=== PATIENT | male | born 1945 | race Caucasian/White ===

== ENCOUNTER 2017-04-24 10:09 | Inpatient (IN) | payer MEDICARE, BC, SELFPAY ==
[2017-04-24] VITALS (24 sets, daily range): BP systolic 124–167; BP diastolic 49–78; PULSE 57–76; RESP 14–67; TEMP 36.4–37.1; O2SAT 92–100; BMI 35.9; BMI 36.7; BMI 36.8
--- NOTE | 2017-04-24 10:12 | EKG12_ITS ---
Test Reason : CP Blood Pressure : / mmHG Vent. Rate : 068 BPM Atrial Rate : 068 BPM P-R Int : 168 ms QRS Dur : 162 ms QT Int : 436 ms P-R-T Axes : 089 -53 070 degrees QTc Int : 463 ms Normal sinus rhythm Right bundle branch block Left anterior fascicular block Bifascicular block Abnormal ECG Confirmed by SHAYNA BYERS, JEANETTE ([id number]), online content editor JAMES CLAIRE ([id number]) on 04/25/2017 3:16:52 PM Referred By: Confirmed By:JEANETTE CORRAL MD
--- NOTE | 2017-04-24 10:12 | RAD_ITS ---
STUDY: X-RAY CHEST REASON FOR EXAM: Male, 71 years old. Chest pain TECHNIQUE: Single AP portable view of the chest. COMPARISON: June 22, 2009 FINDINGS: Lungs are more hyperexpanded.. There is new right infrahilar atelectasis/consolidation. There is no demonstrated pleural abnormality. Normal size heart. There is a stable left hilar calcified lymph node. Normal visualized pulmonary arteries. There is atherosclerotic calcification of the aortic arch with tortuosity. Normal visualized thoracic spine. Normal visualized ribs, clavicles, and shoulders. There is no demonstrated abnormality of the visualized soft tissue structures of the upper abdomen. RAD/Chest 1 View (Portable) IMPRESSION: Lungs are more hyperexpanded.. There is new right infrahilar atelectasis/consolidation. Electronically Signed: Makenna He MD at 13:02 EST , Service support ,
--- NOTE | 2017-04-24 10:29 | ED.VISSUMM ---
- ER Visit Summary Date of Service: 04/24/17 Chief Complaint: [] Chest pain shortness of breath orthopnea unable to lie flat History of Present Illness: The patient is a 71 M [] has a history of bladder cancer renal failure lower extremity DVT and PE years ago, on Xarelto. The patient basically is brought in by family complaining of shortness of breath and then later he also explains that he has been having chest pain on and off about a week thus to the left sternal area seems to come and go is exertional to a degree but appears to involve a focal area of his left chest. His symptoms got to the point where he could not lay flat last night he could not breathe any came in for evaluation he has been taking the Xarelto. He has not had a DVT or PE since being on the Xarelto apparently he had bladder cancer had to have some type of a new bladder inserted, subsequent to all that he developed DVTs and PE he was on Coumadin later switched to Xarelto. He has had a cough bowel bladder habits have been normal. Reports he has stage III kidney disease but he urinates at least twice a day, he denies lower extremity edema, denies COPD OK CHF Physical Examination: [] He is a very evasive historian. Family is in the room with him trying to help get the details as above he seems to try to be minimizing his symptoms he does not want to talk about the chest pain wants us to understand he simply cannot walk around his home or lay flat secondary to shortness of breath. His vital signs show a pulse ox of about 98% on room air heart rate about 80 the rest were unremarkable he has been afebrile he speaking in full sentences his neck shows no obvious JVD oral cavity is unremarkable the lungs reveal rhonchi at the bases the heart tones are regular the abdomen is obese but soft upper lower extremities unremarkable neurologically he is awake moving all 4 Test Results: [] Emergency Department Course and Treatment: [] In all the above evaluations pursued, his hemoglobin returns at 5.7 platelet count 251 white count 6 chemistry panel reveals creatinine 1.5, his chest x-ray shows dense right lower lobe infiltrate see that report, we have typed and screened him we started IV antibiotics. His stool was sent to lab as he spontaneously had us bowel movement and it was apparently brown but guaiac positive given all the above have contacted the hospitalist will see him shortly for further management again he was typed and screened for 2 units, per the patient the family has no history of GI bleeding Treatment Plan: [] Disposition: [] Admits stable Impression: [] Right lower lobe infiltrate, dyspnea, anemia, history of DVT or embolism prior bladder cancer ED Disposition - Plan for ED Patient: Chief Complaint: Chest Pain Referrals: Martin Nunez DO [Primary Care Provider] -
[2017-04-24 10:32] LABS: Absolute Lymphocyte Count 0.81 X10^3/ul (0.83-4.51); Absolute Neutrophil Count 4.8 X10^3/uL (2.0-7.7); Basophil# 0.02 X10^3/uL; Basophil% 0.3 % (0-1); Differential Indicated SCAN CRITERIA MET; Eosinophils% 1.6 % (0-5); Hematocrit 20.7 % (40-54); Hemoglobin 5.7 g/dl (13.0-16.5); Lymphocyte # 0.81 X10^3/ul (4.0); Lymphocyte % 13.1 % (19-41); Mean Corp Hgb Conc 27.5 g/gl (32-36); Mean Corpuscular Hgb 23.7 pg (27.0-32.0); Mean Corpuscular Volume 85.9 fL (80-94); Mean Platelet Vol. 8.7 fl (6.2-12.0); Monocyte# 0.48 X10^3/uL; Monocyte% 7.8 % (0-10); Neutrophil # 4.75 X10^3/uL (2.7-7.7); Neutrophil % 77.2 % (47-70); POSITIVE COUNT YES; POSITIVE DIFFERENTIAL NO; POSITIVE MORPHOLOGY NO; Platelet Count 251 K/mm3 (150-450); RBC Distribution Width CV 17.1 % (11.6-14.6); Red Blood Count 2.41 M/mm3 (4.6-6.2); White Blood Count 6.2 K/mm3 (4.4-11.0)
[2017-04-24 10:47] LABS: Anion Gap 10 (5-15); BUN 32 mg/dL (7-18); BUN/Creat Ratio 21.9 RATIO (10-20); Calcium,Total 8.2 mg/dL (8.5-10.1); Chloride 117 mmol/L (98-107); Creatinine, Serum 1.46 mg/dL (0.70-1.30); EST Glomerular Filtration Rate 51 mL/min (>60); Est Glom Filt Rate - Afr Amer 61 mL/min (>60); Estimated Creatinine Clearance 48.61 ml/min; Glucose 131 mg/dL (70-110); Potassium 3.7 mmol/L (3.5-5.1); Sodium Level 147 mmol/L (136-145)
[2017-04-24] MEDS: Ipratropium/Albuterol Sulfate 3 ML AMPUL.NEB INHALATION (10:56)
[2017-04-24 10:58] LABS: Anisocytosis 1+; Hypochromasia 2+
--- NOTE | 2017-04-24 11:03 | ED.RN ---
hgb 5.[address] the lab. dr bhardwajyeed aware
--- NOTE | 2017-04-24 15:36 | HP.PCM_ITS ---
Problem List (1) Shortness of breath Status: Acute (2) Left upper chest discomfort Status: Acute History of Present Illness Date of Admission: 04/24/17 Chief Complaint: Shortness of breath, left upper chest discomfort The patient is a 71 year old M who was seen in the emergency room at [facility] with a chief complaint of shortness of breath and episodic left upper chest pain which she states is been going on for the last couple of weeks. Patient states the chest discomfort is positional and it can also be reproduced by pushing on his left upper chest wall, he described it as being a sharp sensation. It is not brought on by physical activity. Patient states that he has not been able to perform physical activity as usual because of his shortness of breath and has not really felt good for at least 2 weeks. Patient admitted to some episodes of black stool approximately 2 weeks ago, he states that this cleared up and has not returned. Patient's son is in the room with the patient, patient states that his blood count was checked as an outpatient a couple of months ago and his hemoglobin was in the 12 range. Patient takes Xarelto due to a history of PE and DVT in the past, he had been on warfarin at one time but was taken off the warfarin due to the fact that he got a DVT while on warfarin. Patient also has an IVC filter. Patient denies any fevers, chills, hemoptysis, or purulent sputum production, he does state he coughs at times but brings up clear phlegm. Patient denies any rectal bleeding, he states he is never had a colonoscopy performed. Evaluation in the ER included labs which showed his hemoglobin to be 5.7, MCV was normal. Patient's creatinine was 1.46, BUN was 32, beta natruretic peptide was elevated at 555, troponin was 0.24, the patient's chest x-ray was read out as a right hilar infiltrate or atelectasis. Patient's pulse ox on room air was 100%. Patient was given IV Zithromax and Rocephin for a right hilar pneumonia, in reviewing the patient's chest x-ray and along with his physical exam, I am not convinced the patient actually has a pneumonia and the patient will be admitted to PCU for anemia felt to be secondary to GI bleeding-not active at the present time, and I will get a CT scan of the chest to further investigate his right hilar infiltrate/atelectasis. Patient's enzymes will be cycled due to his intermediate troponin. Past Medical History Allergies aspirin Allergy (Verified 04/24/17 10:13) Other enoxaparin [From Lovenox] Allergy (Verified 04/24/17 10:13) Other heparin Allergy (Verified 04/24/17 10:13) Other Home Medications: Ambulatory Orders Medication Instructions Recorded Amlodipine [Norvasc] 5 mg PO DAILY 04/24/17 Carvedilol [Coreg] 6.25 mg PO BID 04/24/17 Lactobacillus Acidophilus 1 each PO DAILY 04/24/17 [Acidophilus] Lisinopril [Zestril] 20 mg PO DAILY 04/24/17 Polyethylene Glycol 8000 5 ml PO DAILY 04/24/17 [Polyethylene Glycol] Rivaroxaban [Xarelto] 20 mg PO DAILY 04/24/17 Surgical History: cataract, tonsillectomy, - - Bladder removal due to bladder cancer with reconstruction of a bladder Psychiatric History: No pertinent psych hx Lives: Alone Smoking Status: Former smoker Tobacco Use: Non-smoker Alcohol: None Drugs: None - *Family History Maternal History Items: No pertinent history Paternal History Items: No pertinent history Review of Systems Constitutional: Reports: Weakness, Fatigue. Denies: Anorexia, Chills, Fever, Night Sweats, Weight Change Eyes: Denies: Blurred vision, Cataracts, Conjunctivae Inflammation, Double vision, Drainage HEENT: Denies: Difficulty Hearing, Difficulty Swallowing, Dysphasia, Ear Pain, Eye Pain, Head Aches, Hearing Changes, Nasal bleeding, Nasal Congestion, Post Nasal Drip Cardiovascular: Reports: Chest Pain. Denies: Claudication, Chest Pressure, Chest Tightness, Edema, Heaviness, Orthopnea, Palpitations, Paroxysmal Noc. Dyspnea, Syncope Respiratory: Reports: Cough, Shortness of Breath, Shortness of breath upon exertion. Denies: Hemoptysis, Pleuritic Pain, Shortness of breath at rest, Wheezing Gastrointestinal: Denies: Abdominal Pain, Constipation, Diarrhea, Hematemesis, Hematochezia, Nausea, Melena, Vomiting Genitourinary: Denies: Dysuria, Frequency, Hematuria, Hesitancy, Incontinence, Nocturia, Retention, Urgency Musculoskeletal: Denies: Back Pain, Foot Pain, Hand Pain, Joint Pain, Joint stiffness, Joint swelling, Joint Tenderness Skin: Denies: Dryness, Jaundice, Pruritis, Rash Neurological: Denies: Blurred vision, Double vision, Slurred speech, Difficulty swallowing, Focal weakness, Headaches, Numbness, Tingling Psychiatric: Denies: Anxiety, Depression, Homicidal Ideations, Suicidal Ideations Endocrine: Denies: Change in Body Habitus, Heat/ Cold Intolerance, Polydipsia, Polyuria Hematologic/ Lymphatic: Denies: Adenopathy, Anemia, Easy Bruising, Easy Bleeding , Petechiae, Purpura VTE Information - Inpt Only VTE Present on Admission: No VTE Mechan Device Prophylaxis: SCD's VTE Pharm Prophylaxis ordered?: No Reason prophylaxis not ordered:: Medical Contraindication - Suspected GI bleed Patient Problems: Active and Suspected Problems Left upper chest discomfort (Acute) Shortness of breath (Acute) - Physical Exam General: Alert, Oriented x3, Cooperative, No apparent distress, Well developed, Well nourished HEENT: Atraumatic, PERRLA, EOMI, Normocephalic Oral: Moist Mucosa Neck: Supple, No JVD, Negative Carotid Bruits, No Nodes, No Nuchal Rigidity, Trachea Midline, Thyroid Normal Size and Texture Lungs: Clear to auscultation, Normal air movement, No rhonchi, No wheeze, No rales Cardiovascular: Regular rate, Regular Rhythm, Normal S1, Normal S2, No murmurs, No Ectopic Activity, PMI Normal, No rub noted, No Gallop Abdomen: Bowel Sounds Present, Soft, Non Tender, Non-Distended, Obese Extremities: No clubbing, No cyanosis, No edema, Capillary Refill Less than 3 Seconds Skin: No rashes, No breakdown Musculoskeletal: No Tenderness to Palpation of Joints or Extremities Neurological: Cranial nerves II-XII grossly intact, Neuro grossly intact, Motor Exam 5/5 strength throughout, Sensory exam intact to light touch and pain, Coordination normal Psych/Mental Status: Normal Affect, Appropriate, Alert and oriented to time, place, person, mood and affect Vital Signs Temp Pulse Resp BP Pulse Ox 98.1 F 76 15 154/69 96 04/24/17 14:40 04/24/17 14:40 04/24/17 14:40 04/24/17 14:40 04/24/17 14:40 Oxygen Flow Rate 2 Oxygen Delivery Method Nasal Cannula Weight: 113.398 kg Body Mass Index (BMI) 35.9 Intake and Output for Last 24 Hours 04/22/17 04/23/17 04/24/17 23:59 23:59 22:59 Intake Total 150 Balance 150 Microbiology Past 72 Hours 04/24/17 11:43 Stool Occult Blood (ROSEMARY) - Final Stool Occult Blood Positive Laboratory Tests Past 24 Hrs 04/24/17 04/24/17 04/24/17 10:24 10:24 10:24 WBC 6.2 RBC 2.41 L Hgb 5.7 L* Hct 20.7 L MCV 85.9 MCH 23.7 L MCHC 27.5 L RDW 17.1 H RDW Differential 54.0 H Plt Count 251 MPV 8.7 Immature Gran % (Auto) 0.000 Neut % (Auto) 77.2 H Lymph % (Auto) 13.1 L Calvert % (Auto) 7.8 Eos % (Auto) 1.6 Baso % (Auto) 0.3 Absolute Neuts (auto) 4.8 Absolute Lymphs (auto) 0.81 L Total Counted Not Reportable Diff Path Review May foll Hypochromasia 2+ Anisocytosis 1+ Sodium 147 H Potassium 3.7 Chloride 117 H Carbon Dioxide 20.0 L Anion Gap 10 BUN 32 H Creatinine 1.46 H Estim Creat Clear Calc 48.61 Est GFR (MDRD) Af Amer 61 Est GFR (MDRD) Non-Af 51 L BUN/Creatinine Ratio 21.9 H Glucose 131 H Calcium 8.2 L Troponin I 0.24 H B-Natriuretic Peptide 555.0 H Blood Type Antibody Screen Crossmatch 04/24/17 11:25 WBC RBC Hgb Hct MCV MCH MCHC RDW RDW Differential Plt Count MPV Immature Gran % (Auto) Neut % (Auto) Lymph % (Auto) Calvert % (Auto) Eos % (Auto) Baso % (Auto) Absolute Neuts (auto) Absolute Lymphs (auto) Total Counted Diff Path Review Hypochromasia Anisocytosis Sodium Potassium Chloride Carbon Dioxide Anion Gap BUN Creatinine Estim Creat Clear Calc Est GFR (MDRD) Af Amer Est GFR (MDRD) Non-Af BUN/Creatinine Ratio Glucose Calcium Troponin I B-Natriuretic Peptide Blood Type O POSITIVE Antibody Screen NEGATIVE Crossmatch See Detail Assessment/Plan Active and Suspected Problems Left upper chest discomfort (Acute) Shortness of breath (Acute) #1 severe anemia-suspected to be secondary from a GI bleed-I do not believe this is acute at the present time, patient will be admitted to PCU, 3 units of packed red blood cells will be transfused, labs will be monitored, patient will be placed on IV Protonix, he will be seen by general surgery and undergo an EGD tomorrow, he will more than likely need a colonoscopy on Tuesday. Patient's Xarelto will be discontinued, SCDs will be placed #2 chest pain-this appears to be musculoskeletal in nature but the patient has intermediate troponin, I will cycle cardiac enzymes and he will be monitored on telemetry, I do not feel he needs a stress test performed or an echocardiogram at this point #3 dyspnea-secondary to severe anemia #4 right lung atelectasis versus infiltrate-again I do not feel the patient has a right sided pneumonia, he does not have any signs or symptoms of pneumonia at this point, I will get a CT of the chest, I will hold antibiotics at this point- he had 1 dose of Rocephin and Zithromax in the emergency room today #5 hypertension-patient will be kept on his present medication #6 chronic kidney disease stage III-secondary to hypertension, patient has a history of chronic kidney disease #7 elevated beta natruretic peptide-I do not know the significance of this, patient has no signs or symptoms of congestive heart failure
[2017-04-24] MEDS: Ondansetron ODT 4 MG Tablet PO (15:38)
--- NOTE | 2017-04-24 16:19 | CT_ITS ---
STUDY: CT CHEST WITHOUT CONTRAST REASON FOR EXAM: Male, 71 years old. RIGHT LUNG ATELECTASIS VS INFILTRATE, SOB, LEFT UPPER CHEST DISCOMFORT ON XARELTO D/T PE/DVT, IVC FILTER, BLADDER CA-REMOVAL WITH RECONSTRUCTION RADIATION DOSAGE (If Supplied By Facility): CTDIvol = ( 19.53 ) mGy, DLP = ( 771.02 ) mGycm TECHNIQUE: Transaxial imaging was performed without the administration of intravenous contrast material. Individualized dose optimization techniques were used for this CT. COMPARISON: X-ray earlier in the day CT abdomen pelvis June 22, 2009 report only FINDINGS: There are emphysematous changes of the lungs with emphysematous blebs. There is a 7 mm right upper lobe pulmonary nodule on image 56. There is a 5 mm left lower lobe pulmonary nodule on image 99. There are several bilateral calcified granulomas. There is a subcentimeter pleural-based nodular density of the right posterior mid chest on image 71. Normal heart and pericardium. Normal mediastinum. There are left hilar calcified lymph nodes.. Normal unenhanced pulmonary arteries. There is atherosclerotic calcification of the aortic arch with tortuosity and elongation of the aortic arch and descending thoracic aorta. There are multi-level degenerative changes of the thoracic spine. There is a small hiatal hernia. There is increased density of the gallbladder suggesting large stones. There are bilateral adrenal nodules. There are bilateral renal cystic structures. CT/Chest without Contrast IMPRESSION: No infiltrate is seen. There is chronic obstructive pulmonary disease. There are 2 pulmonary nodules. This could represent metastatic disease or infection. There is a small hiatal hernia. There is increased density of the gallbladder suggesting large stones. There are bilateral adrenal nodules. There are bilateral renal cystic structures. Electronically Signed: Makenna He MD at 18:39 EST , Service support ,
[2017-04-24] MEDS: 0.9% Normal Saline 1,000 ML 60 ML IV (17:01)
[2017-04-24] MEDS: Carvedilol 6.25 MG Tablet PO (20:57)
[2017-04-24] MEDS: 0.9% NaCl Peripheral Flush Adult/Peds IV (22:32)
[2017-04-24] MEDS: Furosemide 20 MG/2 ML VIAL IV (22:32)
[2017-04-25] VITALS (17 sets, daily range): BP systolic 95–148; BP diastolic 38–75; PULSE 54–71; RESP 12–20; TEMP 36.6–36.9; O2SAT 93–98; BMI 36.7
[2017-04-25 02:25] LABS: Absolute Lymphocyte Count 1.17 X10^3/ul (0.83-4.51); Basophil# 0.01 X10^3/uL; Basophil% 0.1 % (0-1); Eosinophil# 0.09 X10^3/uL; Eosinophils% 1.3 % (0-5); Hematocrit 24.5 % (40-54); Hemoglobin 7.2 g/dl (13.0-16.5); Lymphocyte # 1.17 X10^3/ul (4.0); Lymphocyte % 16.7 % (19-41); Mean Corp Hgb Conc 29.4 g/gl (32-36); Mean Corpuscular Hgb 25.5 pg (27.0-32.0); Mean Corpuscular Volume 86.9 fL (80-94); Mean Platelet Vol. 9.5 fl (6.2-12.0); Monocyte# 0.75 X10^3/uL; Monocyte% 10.7 % (0-10); Neutrophil # 4.99 X10^3/uL (2.7-7.7); Neutrophil % 71.2 % (47-70); Platelet Count 232 K/mm3 (150-450); RBC Distribution Width CV 16.1 % (11.6-14.6); RBC Distribution Width SD 51.1 fl (35.1-43.9); Red Blood Count 2.82 M/mm3 (4.6-6.2)
[2017-04-25 02:26] LABS: POSITIVE COUNT NO; POSITIVE DIFFERENTIAL NO; POSITIVE MORPHOLOGY NO
[2017-04-25] MEDS: 0.9% Normal Saline 1,000 ML 60 ML IV ×2 (07:43→22:37)
--- NOTE | 2017-04-25 08:57 | CON.PCM_ITS ---
- Consult Date of Consult: 04/25/17 - Reason for Consult Chief Complaint: anemia History of Present Illness: 71 y/o WM with history of bladder cancer presents with severe anemia, Hgb of 5.7. Admitted to hospitalist service. Transfused 3 u PRBC Found to be stool guiaic positive. Denies abdominal pain No previous EGD or colonoscopy. No family history of colon cancer Past Medical History: hypertension history of bladder cancer history of DVT after bladder surgery; history of PE after heparin - on xarelto obesity Diabetes - diet controlled History of kidney stones Chronic kidney disease stage III Past Surgical History: Tonsillectomy Cataract surgery Bladder resection - creation of ileal conduit Medications: norvasc coreg zestril xarelto Allergies: heparin induced thrombocytopenia aspirin - GI upset Social history: TOB use quit 2008 - 2ppd for 40 years ETOH use minimal, occasional social only Review of Systems: General - denies fevers, denies weight loss, denies anorexia Cardiovascular denies chest pain, denies history of heart attack Pulmonary denies shortness of breath, denies coughing up blood Gastrointestinal as per HPI, denies blood in stools Neurological had severe allergy to heparin/lovenox was placed in medically induced coma, denies seizures Genitourinary has ileal conduit Hematological on xarelto for hx of DVT Skin denies open - non healing wounds Musculoskeletal denies chronic back pain Endocrine denies diabetes Psychological denies hallucinations Physical examination: Vital signs Ht; 5'10 Wt: 256# Temp General WD/WN WM in no apparent distress, alert and oriented HEENT Normocephalic. EOM intact with sclera clear and no icterus noted. Neck is supple with no jugular venous distention noted. Trachea is midline. Lungs normal breath sounds. No rales/rhonchi/wheezing noted. No labored breathing noted, such as retractions. . Heart normal S1 and S2 auscultated. No rubs/clicks/murmurs noted. Abdomen soft and benign and protuberant, normal bowel sounds. ileal conduit - pink mucosa, difficult to determine if any masses due to body habitus Extremities no pitting edema noted. Genitourinary/Rectal deferred Skin normal skin integrity. Neurological non focal Psychological normal affect, patient is calm and appropriate Impression: probable GI bleed anemia Discussion/Plan: I have discussed the above with the patient. Plan for upper endoscopy today, colonoscopy tomorrow. Clear liquids until 9:30 then golyltely prep after colonoscopy. I have counseled the patient as to the risks of the procedure, including but not limited to: infection, bleeding, injury to any blood vessels/nerves, scar tissue, injury to any intraabdominal organs such as stomach/intestines/liver/ spleen, inability to complete the procedure if colon cleansing preparation inadequate, complications of anesthesia, postoperative pneumonia/cardiac problems/blood clots etc. the patient understands. I have answered all questions to the patient?s satisfaction and the patient has no further questions.
[2017-04-25] MEDS: amLODIPine 5 MG Tablet PO (09:09)
[2017-04-25] MEDS: Lisinopril 20 MG Tablet PO (09:09)
[2017-04-25] MEDS: Carvedilol 6.25 MG Tablet PO (09:09)
--- NOTE | 2017-04-25 14:57 | PN_ITS ---
<Prashanth Gray - Last Filed: 04/25/17 14:50> Patient Problems: Active and Suspected Problems Left upper chest discomfort (Acute) Shortness of breath (Acute) Subjective: Pt is agreeable to EGD today and Colonoscopy tomorrow. He is resting comfortably in bed. No abdominal pain. He did have black stools this week. No BRBPR, no vomiting or nausea. He does have GERD and does not take any medication for it, he states he is controlled just with HOB elevation. No F/C. No SOB or CP. - Physical Exam General: Alert, Oriented x3, Cooperative HEENT: Atraumatic, PERRLA, EOMI, Normocephalic Neck: Supple, No JVD, Negative Carotid Bruits Lungs: Clear to auscultation, Normal air movement Cardiovascular: Regular rate, No murmurs Abdomen: Bowel Sounds Present, Soft, Non Tender Extremities: No edema, Capillary Refill Less than 3 Seconds Skin: No rashes, No breakdown Musculoskeletal: No Tenderness to Palpation of Joints or Extremities Neurological: Cranial nerves II-XII grossly intact Psych/Mental Status: Normal Affect, Appropriate, Alert and oriented to time, place, person, mood and affect Vital Signs Temp Pulse Resp BP Pulse Ox 97.9 F 62 20 148/68 96 04/25/17 12:22 04/25/17 12:22 04/25/17 12:22 04/25/17 12:22 04/25/17 12:22 Oxygen Flow Rate 1 Oxygen Delivery Method Room Air Weight: 116.2 kg Body Mass Index (BMI) 36.7 Intake and Output for Last 24 Hours 04/24/17 04/24/17 04/25/17 00:59 23:59 23:59 Intake Total 1531 Balance 1531 Laboratory Tests Past 24 Hrs 04/24/17 04/24/17 04/25/17 16:51 20:18 02:14 WBC 7.0 RBC 2.82 L Hgb 7.2 L Hct 24.5 L MCV 86.9 MCH 25.5 L MCHC 29.4 L RDW 16.1 H RDW Differential 51.1 H Plt Count 232 MPV 9.5 Immature Gran % (Auto) 0.000 Neut % (Auto) 71.2 H Lymph % (Auto) 16.7 L [place] % (Auto) 10.7 H Eos % (Auto) 1.3 Baso % (Auto) 0.1 Absolute Neuts (auto) 5.0 Absolute Lymphs (auto) 1.17 Total Counted Not Reportable Troponin I 0.21 H 0.21 H 04/25/17 02:14 WBC RBC Hgb Hct MCV MCH MCHC RDW RDW Differential Plt Count MPV Immature Gran % (Auto) Neut % (Auto) Lymph % (Auto) [place] % (Auto) Eos % (Auto) Baso % (Auto) Absolute Neuts (auto) Absolute Lymphs (auto) Total Counted Troponin I 0.20 H Assessment/Plan Active and Suspected Problems Left upper chest discomfort (Acute) Shortness of breath (Acute) 1. Acute blood loss anemia - likely 2/2 xarelto induced GI bleed. Black stools this week. EGD today, Colon tomorrow. s/p 3 units PRBC. 2. CP with Ind. Troponin- resolved. indeterminate troponin. Remained flat. Pt described the pain that he did have as a pulled muscle in his chest. 3. Dyspnea - improved. 4. Hx of PE / DVT - patient developed PE after he had a reaction to Lovenox and Heparin following a surgery for bladder removal (hx bladder CA). He was placed on warfarin. When he was taken off Warfarin he developed a DVT and was placed on xarelto. He had a IVC filter placed about 8 years ago and states that he does not see his vascular surgeon and told the vascular surgeon that he would not allow the filter to be removed. He also refuses to see a bone glue maker as he thinks that the bone glue maker he saw in the past caused him other problems like his CKD. 5. CKD III - stable. pt does not follow a classified ad clerk stating that he has not had a change in his renal function in eight years so he does not need to. 6. HTN - stable. DVT ppx: SCDs DC planning: pending endoscopic eval. <Anselmo Renae - Last Filed: 04/25/17 17:02> - Physical Exam General: Alert, Oriented x3, Cooperative HEENT: Atraumatic, PERRLA, EOMI, Normocephalic Neck: Supple, No JVD, Negative Carotid Bruits Lungs: No rhonchi, No wheeze, No rales, Diminished Cardiovascular: Regular rate, Regular Rhythm, Normal S1, Normal S2, No murmurs Abdomen: Bowel Sounds Present, Soft, Non Tender Extremities: No edema, Capillary Refill Less than 3 Seconds Skin: No rashes, No breakdown Musculoskeletal: No Tenderness to Palpation of Joints or Extremities Neurological: Cranial nerves II-XII grossly intact Psych/Mental Status: Normal Affect, Appropriate Vital Signs Temp Pulse Resp BP Pulse Ox 98.1 F 60 20 118/65 93 04/25/17 15:27 04/25/17 15:27 04/25/17 15:27 04/25/17 15:27 04/25/17 15:27 Oxygen Flow Rate 1 Oxygen Delivery Method Room Air Weight: 116.2 kg Body Mass Index (BMI) 36.7 Intake and Output for Last 24 Hours 04/24/17 04/24/17 04/25/17 00:59 23:59 23:59 Intake Total 1531 Balance 1531 Laboratory Tests Past 24 Hrs 04/24/17 04/24/17 04/25/17 16:51 20:18 02:14 WBC 7.0 RBC 2.82 L Hgb 7.2 L Hct 24.5 L MCV 86.9 MCH 25.5 L MCHC 29.4 L RDW 16.1 H RDW Differential 51.1 H Plt Count 232 MPV 9.5 Immature Gran % (Auto) 0.000 Neut % (Auto) 71.2 H Lymph % (Auto) 16.7 L [place] % (Auto) 10.7 H Eos % (Auto) 1.3 Baso % (Auto) 0.1 Absolute Neuts (auto) 5.0 Absolute Lymphs (auto) 1.17 Total Counted Not Reportable Troponin I 0.21 H 0.21 H 04/25/17 02:14 WBC RBC Hgb Hct MCV MCH MCHC RDW RDW Differential Plt Count MPV Immature Gran % (Auto) Neut % (Auto) Lymph % (Auto) [place] % (Auto) Eos % (Auto) Baso % (Auto) Absolute Neuts (auto) Absolute Lymphs (auto) Total Counted Troponin I 0.20 H Assessment/Plan This patient was seen in conjunction with Prashanth MOSS. I have independently interviewed and examined the patient and reviewed pertinent history, examination findings, laboratory and plan of management. I have reviewed the note and concur fully with the documented findings with the few additional points. In brief, patient is admitted for Acute blood loss anemia form most likely due to xarelto. I have discussed my assessment with Prashanth MOSS and orders have been reviewed.
--- NOTE | 2017-04-25 15:09 | CASEMGMT ---
Face to Face with patient for initial transition planning/care coordination assessment. KRUPA GOMES introduced self and role at [facility], pt voices understanding and consents to assessment at this time. Pt lying in bed in no distress at this time. Pt A/O x4 at this time and states no transportation concerns at this time. Care providers, pharmacy, and demographics verified. See attached link. Pt voices no further concerns/needs at this time. Advised pt to ask for CM if any further questions/concerns/needs arise, voices understanding. PLAN: [place] KRUPA GOMES
--- NOTE | 2017-04-25 16:06 | NURSING ---
This instructor reviewed documentation of student nurse.
[2017-04-25] MEDS: Electrolyte Solution/Peg's 4000 ML PO (22:37)
[2017-04-26] VITALS (17 sets, daily range): BP systolic 139–158; BP diastolic 55–75; PULSE 59–95; RESP 12–24; TEMP 36.6–37.2; O2SAT 92–97; BMI 36.7
--- NOTE | 2017-04-26 | COLBX_PTH ---
PATIENT: RIA MARIANO LOC: [facility] U#:[id number] AGE/SX: 71/M ROOM: [facility] RE04/24/[address]: Dr. Anselmo Renae MD : 1945 BED: 1 DIS: 04/27/2017 SPEC #: [id number] RECD: 04/26/17 17:18 STATUS: DAKOTAH REQ #: [id number] PERRY: 04/26/17 00:[address]: Mica Hammer DEPT: SURGICAL PATHOLOGY RECD BY: Branden Saavedra ENTERED: 04/27/17 14:26 SP TYPE: COLON BX OTHR DR: Dr. Martin Nunez, DO Dr. River Mejia, DO Dr. 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 See comment. SJ:rg 05/05/17 COMMENT Immunohistochemistry ([id number]) supports the above diagnosis. The specimen is sent to [facility] for expert opinion and reviewed by Dr. Locke and the above diagnosis is rendered. Immunohistochemical stain performed at [facility] shows the following phenotypes: CD138 positive, MUM1 positive, CD20 negative, CD79A positive, PAX5 negative, CD45 negative, CD43 positive, CD117 positive, CD56 negative and [place] positive. The morphology is plasmablastic and 5-6 mitoses are noted per high power field (including atypical ones). The complete report is reviewable in patient?s EMR. Case has been reviewed in consultation with Dr. Chong who concurs with the above diagnosis. IDC:AM MICROSCOPIC DESCRIPTION Slides are reviewed. GROSS DESCRIPTION Received is one container labeled with the patient's name and not further designated. The specimen consists of multiple irregular fragments of hernandez soft tissue that in aggregate measure 0.5 x 0.5 x 0.1 cm. The specimen is totally submitted in one cassette. / SJ:rg 04/27/17 TC:0 CPT: 06768 ADDENDUM ADDENDUM ADDENDUM ADDENDUM ADDENDUM ADDENDUM ADDENDUM ADDENDUM ADDENDUM ADDENDUM 06/27/2017 10:55 ADDENDUM 06/27/2017 10:55 ADDENDUM 06/27/2017 10:55 ADDENDUM 06/27/2017 10:55 ADDENDUM 06/27/2017 10:55 This addendum is added to incorporate an outside pathology consultation report. The case was examined at [facility] (#[id number]) and the following diagnosis was rendered. Colon, mass at 22 cm, biopsy: Neoplasm with plasmablastic features. Please see complete above mentioned consultation report in EMR
--- NOTE | 2017-04-26 | IMM_PTH ---
PATIENT: RIA MARIANO LOC: [facility] U#:[id number] AGE/SX: 71/M ROOM: [facility] RE04/24/[address]: Dr. Anselmo Renae MD : 1945 BED: 1 DIS: 04/27/2017 SPEC #: [id number] RECD: 04/28/17 12:06 STATUS: DAKOTAH REQ #: [id number] PERRY: 04/26/17 00:[address]: Anselmo Renae DEPT: IMMUNOHISTOCHEMISTRY RECD BY: Trixie Forbes ENTERED: 04/28/17 12:07 SP TYPE: IMMUNO OTHR DR: Dr. Martin Nunez, MD Dr. River Persaud Dr., DO Tissues: COLON BIOPSY Procedures: CD30 (add) CD45 (add) CK8 (add) CONNOR (add) MART1 (add) Pankeratin (add) Vimentin (initial) S-100 (add) PHYSICIAN & [address] [address] SPECIMEN INFORMATION: Tissue Source: Colon mass at 22 cm Clinical Info: Harris Specimen Number: [id number] CPT code: 33228, 69860 x7 METHODOLOGY: Deparaffinized sections of prefer/formalin-fixed tissue or PAP/DQ stained slides are incubated with monoclonal/polyclonal antibodies/oligonucleotide probes. Localization is made via biotin free immunoperoxidase method. Appropriate controls are performed and reacted as expected. Results on target cell population are indicated in the following table: RESULTS: ANTIBODY / CLONE RESULT Vimentin (V9) positive S-100 (4C4.9) negative AE1-3 (AE1/AE3/PCK26) negative CD45 (RP2/18) negative MART-1 (A-103) negative CONNOR (E29) negative CK8 (60napwI82) negative CD30 (Ernesto-H2) negative These tests were developed and their performance characteristics determined by [facility]. They may not have been cleared or approved by the U.S. Food and Drug Administration. The FDA has determined that such clearance or approval is not necessary. 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 See comment. Amalia 05/05/17 Comment: The specimen was sent to [facility] for expert opinion and immunohistochemical stain performed there is consistent with plasma cell neoplasm. Immunohistochemical stain performed at [facility] shows the following phenotypes: CD138 positive, MUM1 positive, CD20 negative, CD79A positive, PAX5 negative, CD45 negative, CD43 positive, CD117 positive, CD56 negative and [place] positive. The complete report is reviewable in patient's EMR.
[2017-04-26] MEDS: Carvedilol 6.25 MG Tablet PO ×3 (01:02→21:33)
--- NOTE | 2017-04-26 07:51 | PCM.OPRPT ---
Report of Operation Date of Procedure: 04/25/17 Pre-Operative Diagnosis: guaic positive,anemia Post-Operative Diagnosis: same, normal EGD Surgery/Procedure Performed:: esophagogastroduodenoscopy Description of Surgical Findings:: no ulcers or masses noted in duodenum/stomach/esophagus Type of Anesthesia:: Local MAC Anesthesiologist: Galileo Grant Specimen's removed: none Estimated Blood Loss (mL): none Fluids Replaced: see anesthesia note Description of Procedure: After informed consent was given, the patient was brought to the endoscopy suite and placed in the upright sitting position. Appropriate time out protocol was followed. Appropriate cardiac, blood pressure, and pulse oximetry monitoring was placed. After stable vital signs were noted, the patient was given intravenous conscious sedation. The posterior pharynx was sprayed with lidocaine spray and a bite block was placed. The patient was then placed in the left lateral decubitis position. The upper endoscope was lubricated and inserted into the patients mouth and then carefully placed into the patients throat. The patient was asked to swallow and the endoscope was then easily advanced into the patients esophagus. The endoscope was further advanced down into the patients stomach, then past the pylorus, then past the duodenal bulb and then to the second portion of the duodenum. There were no lesions noted in the duodenum. The endoscope was then retracted back into the stomach. A retroflex view of the stomach revealed no evidence of any masses. No ulcers, no strictures, no suspicious lesions were noted. The endoscope was retracted into the esophagus, where any insufflated gas in the stomach was aspirated out. The gastroesophageal junction appeared normal. The remainder of the esophagus was normal. The upper endoscope was removed intact. Patient tolerated procedure well. - Complications none noted - Admit VTE Documentation VTE Present on Admission: Yes VTE Mechan Device Prophylaxis: SCD's
--- NOTE | 2017-04-26 07:58 | OP.PCM_ITS ---
Report of Operation Date of Procedure: 04/25/17 Pre-Operative Diagnosis: guaic positive,anemia Post-Operative Diagnosis: same, normal EGD Surgery/Procedure Performed:: esophagogastroduodenoscopy Description of Surgical Findings:: no ulcers or masses noted in duodenum/stomach/esophagus Type of Anesthesia:: Local MAC Anesthesiologist: Galileo Grant Specimen's removed: none Estimated Blood Loss (mL): none Fluids Replaced: see anesthesia note Description of Procedure: After informed consent was given, the patient was brought to the endoscopy suite and placed in the upright sitting position. Appropriate time out protocol was followed. Appropriate cardiac, blood pressure, and pulse oximetry monitoring was placed. After stable vital signs were noted, the patient was given intravenous conscious sedation. The posterior pharynx was sprayed with lidocaine spray and a bite block was placed. The patient was then placed in the left lateral decubitis position. The upper endoscope was lubricated and inserted into the patient?s mouth and then carefully placed into the patient?s throat. The patient was asked to swallow and the endoscope was then easily advanced into the patient?s esophagus. The endoscope was further advanced down into the patient?s stomach, then past the pylorus, then past the duodenal bulb and then to the second portion of the duodenum. There were no lesions noted in the duodenum. The endoscope was then retracted back into the stomach. A retroflex view of the stomach revealed no evidence of any masses. No ulcers, no strictures, no suspicious lesions were noted. The endoscope was retracted into the esophagus, where any insufflated gas in the stomach was aspirated out. The gastroesophageal junction appeared normal. The remainder of the esophagus was normal. The upper endoscope was removed intact. Patient tolerated procedure well. - Complications none noted - Admit VTE Documentation VTE Present on Admission: Yes VTE Mechan Device Prophylaxis: SCD's
[2017-04-26] MEDS: Lisinopril 20 MG Tablet PO (09:43)
[2017-04-26] MEDS: amLODIPine 5 MG Tablet PO (09:43)
[2017-04-26 10:11] LABS: Absolute Lymphocyte Count 0.78 X10^3/ul (0.83-4.51); Absolute Neutrophil Count 4.3 X10^3/uL (2.0-7.7); Basophil# 0.01 X10^3/uL; Basophil% 0.2 % (0-1); Eosinophil# 0.09 X10^3/uL; Eosinophils% 1.6 % (0-5); Hematocrit 25.1 % (40-54); Hemoglobin 7.3 g/dl (13.0-16.5); Lymphocyte # 0.78 X10^3/ul (4.0); Lymphocyte % 13.8 % (19-41); Mean Corp Hgb Conc 29.1 g/gl (32-36); Mean Corpuscular Hgb 25.3 pg (27.0-32.0); Mean Corpuscular Volume 86.9 fL (80-94); Mean Platelet Vol. 9.4 fl (6.2-12.0); Monocyte% 8.8 % (0-10); Neutrophil # 4.26 X10^3/uL (2.7-7.7); Neutrophil % 75.4 % (47-70); Platelet Count 224 K/mm3 (150-450); RBC Distribution Width CV 16.6 % (11.6-14.6); RBC Distribution Width SD 52.9 fl (35.1-43.9); Red Blood Count 2.89 M/mm3 (4.6-6.2); White Blood Count 5.7 K/mm3 (4.4-11.0)
[2017-04-26 10:16] LABS: POSITIVE COUNT NO; POSITIVE DIFFERENTIAL NO; POSITIVE MORPHOLOGY NO
[2017-04-26 10:33] LABS: Anion Gap 10 (5-15); BUN 22 mg/dL (7-18); BUN/Creat Ratio 16.1 RATIO (10-20); Calcium,Total 7.7 mg/dL (8.5-10.1); Chloride 118 mmol/L (98-107); Creatinine, Serum 1.37 mg/dL (0.70-1.30); EST Glomerular Filtration Rate 55 mL/min (>60); Est Glom Filt Rate - Afr Amer 66 mL/min (>60); Glucose 99 mg/dL (70-110); Potassium 3.8 mmol/L (3.5-5.1); Sodium Level 147 mmol/L (136-145)
[2017-04-26 11:05] LABS: Pathologist Review Reviewed
--- NOTE | 2017-04-26 14:22 | PCM.PROGNOTE ---
<Prashanth Gray - Last Filed: 04/26/17 14:22> Patient Problems: Active and Suspected Problems Left upper chest discomfort (Acute) Shortness of breath (Acute) Subjective: The patient tolerated the EGD well yesterday and is agreeable to colonscopy today. He has noticed that since receiving blood he has felt a significant improvement in his energy. No further chest pain. He denies SOB, LH, dizziness, diplopia. He has no abdominal pain. - Physical Exam General: Alert, Oriented x3, Cooperative HEENT: Atraumatic, PERRLA, EOMI, Normocephalic Neck: Supple, No JVD, Negative Carotid Bruits Lungs: Clear to auscultation, Normal air movement Cardiovascular: Regular rate, No murmurs Abdomen: Bowel Sounds Present, Soft, Non Tender Extremities: No edema, Capillary Refill Less than 3 Seconds Skin: No rashes, No breakdown Musculoskeletal: No Tenderness to Palpation of Joints or Extremities Neurological: Cranial nerves II-XII grossly intact Psych/Mental Status: Normal Affect, Appropriate, Alert and oriented to time, place, person, mood and affect Vital Signs Temp Pulse Resp BP Pulse Ox 97.8 F 61 12 146/55 93 04/26/17 13:49 04/26/17 13:49 04/26/17 13:49 04/26/17 13:49 04/26/17 13:49 Oxygen Flow Rate 1 Oxygen Delivery Method Room Air Weight: 116.2 kg Body Mass Index (BMI) 36.7 Intake and Output for Last 24 Hours 04/24/17 04/25/17 04/26/17 23:59 23:59 23:59 Intake Total 4358 3572 Balance 4358 3572 Laboratory Tests Past 24 Hrs 04/26/17 04/26/17 08:10 08:10 WBC 5.7 RBC 2.89 L Hgb 7.3 L Hct 25.1 L MCV 86.9 MCH 25.3 L MCHC 29.1 L RDW 16.6 H RDW Differential 52.9 H Plt Count 224 MPV 9.4 Immature Gran % (Auto) 0.200 Neut % (Auto) 75.4 H Lymph % (Auto) 13.8 L [place] % (Auto) 8.8 Eos % (Auto) 1.6 Baso % (Auto) 0.2 Absolute Neuts (auto) 4.3 Absolute Lymphs (auto) 0.78 L Total Counted Not Reportable Sodium 147 H Potassium 3.8 Chloride 118 H Carbon Dioxide 19.0 L Anion Gap 10 BUN 22 H Creatinine 1.37 H Estim Creat Clear Calc 51.80 Est GFR (MDRD) Af Amer 66 Est GFR (MDRD) Non-Af 55 L BUN/Creatinine Ratio 16.1 Glucose 99 Calcium 7.7 L Assessment/Plan Active and Suspected Problems Left upper chest discomfort (Acute) Shortness of breath (Acute) 1. Acute blood loss anemia - likely 2/2 xarelto induced GI bleed. Black stools this week. s/p 3 units PRBC. -Hgb stable. Symptoms improved. -EGD neg -Colonscopy pending. 2. CP with Ind. Troponin- CP resolved. indeterminate troponin. Remained flat. Pt described the pain that he did have as a pulled muscle in his chest. 3. Dyspnea - resolved 4. Hx of PE / DVT - patient developed PE after he had a reaction to Lovenox and Heparin following a surgery for bladder removal (hx bladder CA). He was placed on warfarin. When he was taken off Warfarin he developed a DVT and was placed on xarelto. He had a IVC filter placed about 8 years ago and states that he does not see his vascular surgeon and told the vascular surgeon that he would not allow the filter to be removed. He also refuses to see a area supervisor as he thinks that the area supervisor he saw in the past caused him other problems like his CKD. 5. CKD III - stable. pt does not follow a barrel washer machine stating that he has not had a change in his renal function in eight years so he does not need to. 6. HTN - stable. DVT ppx: SCDs defer chemoppx with bleed. DC planning: pending endoscopic eval. <Anselmo Renae - Last Filed: 04/26/17 16:10> - Physical Exam General: Alert, Oriented x3, Cooperative HEENT: Atraumatic, PERRLA, EOMI, Normocephalic Neck: Supple, No JVD, Negative Carotid Bruits Lungs: Normal air movement, No rhonchi, No wheeze, No rales, Diminished Cardiovascular: Regular rate, Regular Rhythm, Normal S1, Normal S2, No murmurs Abdomen: Bowel Sounds Present, Soft, Non Tender, Non-Distended Extremities: No edema, Capillary Refill Less than 3 Seconds Skin: No rashes, No breakdown Musculoskeletal: No Tenderness to Palpation of Joints or Extremities Neurological: Cranial nerves II-XII grossly intact Psych/Mental Status: Normal Affect, Appropriate Vital Signs Temp Pulse Resp BP Pulse Ox 97.8 F 62 12 146/55 93 04/26/17 13:49 04/26/17 14:21 04/26/17 13:49 04/26/17 13:49 04/26/17 13:49 Oxygen Flow Rate 1 Oxygen Delivery Method Room Air Weight: 116.2 kg Body Mass Index (BMI) 36.7 Intake and Output for Last 24 Hours 04/24/17 04/25/17 04/26/17 23:59 23:59 23:59 Intake Total 4358 3572 Balance 4358 3572 Laboratory Tests Past 24 Hrs 04/26/17 04/26/17 08:10 08:10 WBC 5.7 RBC 2.89 L Hgb 7.3 L Hct 25.1 L MCV 86.9 MCH 25.3 L MCHC 29.1 L RDW 16.6 H RDW Differential 52.9 H Plt Count 224 MPV 9.4 Immature Gran % (Auto) 0.200 Neut % (Auto) 75.4 H Lymph % (Auto) 13.8 L [place] % (Auto) 8.8 Eos % (Auto) 1.6 Baso % (Auto) 0.2 Absolute Neuts (auto) 4.3 Absolute Lymphs (auto) 0.78 L Total Counted Not Reportable Sodium 147 H Potassium 3.8 Chloride 118 H Carbon Dioxide 19.0 L Anion Gap 10 BUN 22 H Creatinine 1.37 H Estim Creat Clear Calc 51.80 Est GFR (MDRD) Af Amer 66 Est GFR (MDRD) Non-Af 55 L BUN/Creatinine Ratio 16.1 Glucose 99 Calcium 7.7 L Assessment/Plan This patient was seen in conjunction with Prashanth MOSS. I have independently interviewed and examined the patient and reviewed pertinent history, examination findings, laboratory and plan of management. I have reviewed the note and concur fully with the documented findings with the few additional points. EGD was negative. Colonoscopy for tomorrow. Patient hemoglobin is stable at around 7 g percent. Patient was advised to hold Xarelto for further 2 weeks follow with PCP after discharge before resumption of anticoagulation I have discussed my assessment with Prashanth MOSS and orders have been reviewed.
--- NOTE | 2017-04-26 19:48 | OP.PN_ITS ---
Immediate Post-Op Note Date of Procedure: 04/25/17 Primary Surgeon/Physician: Mica Hammer woodwork salvage inspector: NOT,DEFINED Pre-Operative Diagnosis: guaic positive,anemia, normal EGD yesterday Post-Operative Diagnosis: sigmoid colon mass Surgery/Procedure Performed:: colonoscopy with biopsies Description of Surgical Findings:: no ulcers or masses noted in duodenum/stomach/esophagus Estimated Blood Loss: minimal Specimen's removed: biopsies of sigmoid mass Type of Anesthesia:: Local MAC ASA Class: ASA2 Mod Systematic Disease - Admit VTE Documentation VTE Present on Admission: Yes VTE Mechan Device Prophylaxis: SCD's
--- NOTE | 2017-04-26 19:48 | PCM.OPRPT ---
Report of Operation Date of Procedure: 04/25/17 Pre-Operative Diagnosis: guaic positive,anemia, normal EGD yesterday Post-Operative Diagnosis: sigmoid colon mass Surgery/Procedure Performed:: colonoscopy with biopsies Description of Surgical Findings:: sigmoid colon mass at 23 cm management development specialist: NOT,DEFINED Type of Anesthesia:: Local MAC Anesthesiologist: Kenzie Schroeder Specimen's removed: biopsies of sigmoid mass Estimated Blood Loss (mL): minimal Fluids Replaced: see anesthesia note Description of Procedure: After informed consent was given, the patient was brought to the endoscopy suite and placed in the supine position. Appropriate time out protocol was followed. Appropriate cardiac, blood pressure, and pulse oximetry monitoring was placed. After stable vital signs were noted, the patient was given intravenous conscious sedation. The patient was then placed in the left lateral decubitis position. The colonoscope was lubricated and carefully inserted into the patients anus. It was then advanced into the rectum, then into the sigmoid colon, then into the left descending colon, past the splenic flexure, into the transverse colon, past the hepatic flexure, then down into the right descending colon and into the cecum. The cecum was identified by: transillumination, confluence of the tenae coli, identification of the ileocecal valve and appendiceal orifice, and external pressure with indentation. At this point, the colonoscope was slowly retracted back and the entire colonic mucosa was examined. The colon cleansing preparation was adequate. There was still fecal material present, but it was able to be lavaged and aspirated out. The patient had diverticulosis of the sigmoid colon. In the distal sigmoid colon, there was a near circumferential mass. Biopsies were taken with cold grasper forceps. The mass was friable. No polyps or masses were noted in the cecum/right colon/transverse colon/left colon/rectum. There was no evidence of extrinsic compression and no inflammatory changes were noted. Retroflex view in the rectum revealed no lesions in the rectal vault except for hemorrhoids. The colonoscop was removed intact. Patient tolerated procedure well. - Complications none noted - Admit VTE Documentation VTE Present on Admission: Yes VTE Mechan Device Prophylaxis: SCD's
--- NOTE | 2017-04-26 19:53 | OP.PCM_ITS ---
Report of Operation Date of Procedure: 04/25/17 Pre-Operative Diagnosis: guaic positive,anemia, normal EGD yesterday Post-Operative Diagnosis: sigmoid colon mass Surgery/Procedure Performed:: colonoscopy with biopsies Description of Surgical Findings:: sigmoid colon mass at 23 cm cone marker: NOT,DEFINED Type of Anesthesia:: Local MAC Anesthesiologist: Kenzie Schroeder Specimen's removed: biopsies of sigmoid mass Estimated Blood Loss (mL): minimal Fluids Replaced: see anesthesia note Description of Procedure: After informed consent was given, the patient was brought to the endoscopy suite and placed in the supine position. Appropriate time out protocol was followed. Appropriate cardiac, blood pressure, and pulse oximetry monitoring was placed. After stable vital signs were noted, the patient was given intravenous conscious sedation. The patient was then placed in the left lateral decubitis position. The colonoscope was lubricated and carefully inserted into the patient?s anus. It was then advanced into the rectum, then into the sigmoid colon, then into the left descending colon, past the splenic flexure, into the transverse colon, past the hepatic flexure, then down into the right descending colon and into the cecum. The cecum was identified by: transillumination, confluence of the tenae coli, identification of the ileocecal valve and appendiceal orifice, and external pressure with indentation. At this point, the colonoscope was slowly retracted back and the entire colonic mucosa was examined. The colon cleansing preparation was adequate. There was still fecal material present, but it was able to be lavaged and aspirated out. The patient had diverticulosis of the sigmoid colon. In the distal sigmoid colon, there was a near circumferential mass. Biopsies were taken with cold grasper forceps. The mass was friable. No polyps or masses were noted in the cecum/right colon/transverse colon/left colon /rectum. There was no evidence of extrinsic compression and no inflammatory changes were noted. Retroflex view in the rectum revealed no lesions in the rectal vault except for hemorrhoids. The colonoscop was removed intact. Patient tolerated procedure well. - Complications none noted - Admit VTE Documentation VTE Present on Admission: Yes VTE Mechan Device Prophylaxis: SCD's
[2017-04-26 20:54] LABS: Hematocrit 26.2 % (40-54); Hemoglobin 7.5 g/dl (13.0-16.5)
[2017-04-26] MEDS: Pantoprazole Sodium 40 MG Tablet PO (21:33)
[2017-04-26] MEDS: 0.9% Normal Saline 1,000 ML 60 ML IV (22:10)
[2017-04-27 02:58] VITALS: PULSE 58
[2017-04-27 03:23] VITALS: BP 149/67; PULSE 59; RESP 20; TEMP 36.7; O2SAT 94
[2017-04-27] MEDS: Acetaminophen 325 MG Tablet 650 MG PO (04:57)
[2017-04-27 06:17] LABS: Absolute Lymphocyte Count 0.84 X10^3/ul (0.83-4.51); Absolute Neutrophil Count 3.8 X10^3/uL (2.0-7.7); Basophil# 0.01 X10^3/uL; Basophil% 0.2 % (0-1); Eosinophil# 0.15 X10^3/uL; Eosinophils% 2.7 % (0-5); Hematocrit 25.5 % (40-54); Hemoglobin 7.4 g/dl (13.0-16.5); Lymphocyte # 0.84 X10^3/ul (4.0); Lymphocyte % 15.4 % (19-41); Mean Corpuscular Hgb 25.3 pg (27.0-32.0); Mean Platelet Vol. 10.3 fl (6.2-12.0); Monocyte# 0.64 X10^3/uL; Monocyte% 11.7 % (0-10); Neutrophil # 3.81 X10^3/uL (2.7-7.7); Neutrophil % 69.8 % (47-70); POSITIVE COUNT NO; POSITIVE DIFFERENTIAL NO; POSITIVE MORPHOLOGY NO; Platelet Count 123 K/mm3 (150-450); RBC Distribution Width CV 17.1 % (11.6-14.6); RBC Distribution Width SD 53.9 fl (35.1-43.9); Red Blood Count 2.93 M/mm3 (4.6-6.2); White Blood Count 5.5 K/mm3 (4.4-11.0)
[2017-04-27 06:45] LABS: Anion Gap 9 (5-15); BUN 16 mg/dL (7-18); BUN/Creat Ratio 11.3 RATIO (10-20); Calcium,Total 7.5 mg/dL (8.5-10.1); Chloride 117 mmol/L (98-107); Creatinine, Serum 1.42 mg/dL (0.70-1.30); EST Glomerular Filtration Rate 52 mL/min (>60); Est Glom Filt Rate - Afr Amer 63 mL/min (>60); Estimated Creatinine Clearance 49.98 ml/min; Glucose 94 mg/dL (70-110); Potassium 4.1 mmol/L (3.5-5.1); Sodium Level 145 mmol/L (136-145)
[2017-04-27 07:07] VITALS: PULSE 58
[2017-04-27 07:38] VITALS: O2SAT 93
[2017-04-27 08:55] VITALS: BP 144/49; PULSE 68; RESP 18; TEMP 36.6; O2SAT 94
[2017-04-27] MEDS: Lisinopril 20 MG Tablet PO (08:58)
[2017-04-27] MEDS: amLODIPine 5 MG Tablet PO (08:58)
[2017-04-27] MEDS: Carvedilol 6.25 MG Tablet PO (08:58)
[2017-04-27] MEDS: Pantoprazole Sodium 40 MG Tablet PO (08:58)
[2017-04-27 11:08] VITALS: PULSE 67
--- NOTE | 2017-04-27 11:37 | PCM.DC ---
- Discharge Diagnoses Current Active Problems: Current Active and Chronic Problems Left upper chest discomfort (Acute) Shortness of breath (Acute) You will use the following diet at home:: Cardiac Your food should be the consistency of: Regular Your liquids should be the consistency of: Regular/Thin Discharge Activity: Return to Normal Activity Allergies/Adverse Reactions: Allergies aspirin Allergy (Verified 04/24/17 10:13) Other enoxaparin [From Lovenox] Allergy (Verified 04/24/17 10:13) Other heparin Allergy (Verified 04/24/17 10:13) Other Medications to take at Discharge Amlodipine [Norvasc] 5 mg PO DAILY 04/24/17 Carvedilol [Coreg (Beta Rick)] 6.25 mg PO BID 04/24/17 Lactobacillus Acidophilus [Acidophilus] 1 each PO DAILY 04/24/17 Lisinopril [Zestril] 20 mg PO DAILY 04/24/17 Ferrous Sulfate [Iron] 325 mg PO TID #90 tablet 04/27/17 Polyethylene Glycol 8000 [Polyethylene Glycol] 5 ml PO DAILY PRN PRN #0 04/27/17 The following prescriptions were given: Ferrous Sulfate [Iron] 325 mg PO TID #90 tablet Primary Care Physician: Martin Nunez DO [Primary Care Provider] - Please follow up with your Primary Care Physician in: 1 week Please Follow Up With: Mica Hammer MD When: They will call with your follow up appointment Please Follow Up With: Gen Patterson DO When: 1 week Proposed Discharge Date: 04/27/17
--- NOTE | 2017-04-27 16:24 | PCM.DC.SUM ---
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 Hospital Course and Treatment Imaging Results: 04/27/17 19:55 CXR [Chest PA and Lateral] [RAD] Routine Hammer - surgery Procedures: Blood transfusion, Colonoscopy, EGD, - Summary of Care Provided: Physical exam on day of discharge: General: Resting comfortably NAD Psych: A/Ox3 normal affect HEENT: PEARRLA AT NC Neck: Supple NT CV: RRR no m/t/r/g/h Resp: CTA Abd: [id number] Soft NT no guarding or rigidity Ext: DP2+= no edema Skin: W/D normal turgor Lymph/Heme: No active bleeding or adenopathy Neuro: CN2-12 intact Hospital course: The patient is a 71 year old M who presented to the ER with chest discomfort, shortness of breath. In the ER he was found to be severely anemic with a Hgb of 5.7 and had noted recent black stools. He also had an indeterminate troponin. He had a hx of bladder cancer for which he had his bladder resected and a new bladder formed from his small intestine. He also was on xarelto as he had prior PEs and DVTs, he has an IVC filter. Xarelto was stopped and initially thought to be the cause of his bleeding. 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 He was admitted and given 3 units or PRBC. The chest pain was described as a muscle spasm and resolved spontaneously by the following day. He felt much better after the 3 units of PRBC. He then underwent an EGD which was negative. The following day he had a colonscopy which revealed a friable mass in the distal sigmoid colon. He was informed that he likely had colorectal cancer that would need further workup and treatment after DC from the hospital. His bleeding had resolved and Hgb remained stable after admission. He did receive 2 units venofer while here and was started on TID iron. He understood the seriousness of the findings and wanted to pursue agressive treatment. He agreed to f/u with Dr. Hammer in the office and was recommended to see Dr. Patterson. CEA level is pending. As he remained stable he was DCd home. He was instructed to remain off Xarelto. [] Discharge Diet: Low fat/ Low Cholesterol, 4000 mg Sodium Diet Discharge Activity: Return to Normal Activity Home Medications: Medications to take at Discharge Amlodipine [Norvasc] 5 mg PO DAILY 04/24/17 Carvedilol [Coreg (Beta Rick)] 6.25 mg PO BID 04/24/17 Lactobacillus Acidophilus [Acidophilus] 1 each PO DAILY 04/24/17 Lisinopril [Zestril] 20 mg PO DAILY 04/24/17 Ferrous Sulfate [Iron] 325 mg PO TID #90 tablet 04/27/17 Polyethylene Glycol 8000 [Polyethylene Glycol] 5 ml PO DAILY PRN PRN #0 04/27/17 Following Prescrptions Were Given to Patient: Ferrous Sulfate [Iron] 325 mg PO TID #90 tablet Primary Care Physician: Martin Nunez DO [Primary Care Provider] - Please follow up with your Primary Care Physician in: 1 week Please Follow Up With: Mica Hammer MD When: They will call with your follow up appointment Please Follow Up With: Gen Patterson DO When: 1 week Disposition: Home Minutes spent on discharge:: 35 Patient Condition:: Stable Meaningful Use Info Meaningful Use Diagnoses (Choose all that apply): None applicable <Anselmo Renae - Last Filed: 04/27/17 16:55> Hospital Course and Treatment Imaging Results: 04/27/17 19:55 CXR [Chest PA and Lateral] [RAD] Routine Summary of Care Provided: This patient was seen in conjunction with [facility]. I have independently interviewed and examined the patient and reviewed pertinent history, examination findings, laboratory and plan of management. I have reviewed the note and concur fully with the documented findings with the few additional points. In brief, patient is admitted for severe iron deficiency anemia from lower GI blood loss. Patient had normal EGD. Colonoscopy showed friable mass in the distal sigmoid colon. This most likely looks like colorectal cancer for which patient needs follow-up biopsy report and further staging workup and management as an outpatient as per Dr. Hammer. Follow-up instructions given. Ferrous sulfate. Patient had total of 400 mg IV infusion over last 2 days and 3 units of PRBC transfusion I have discussed my assessment with Prashanth MOSS and orders have been reviewed. []
--- NOTE | 2017-04-27 19:55 | RAD_ITS ---
STUDY: X-RAY CHEST REASON FOR EXAM: Male, 71 years old. Chronic cough. TECHNIQUE: PA and lateral views of the chest. COMPARISON: Comparison is made with prior study dated April 24, 2017. FINDINGS: EKG electrodes are seen. Hyperinflation. Since prior examination, there has been progression of the interstitial markings worse in the lower lobes. Vascular congestion and mild CHF should be ruled out. There is also evidence of superimposed bibasilar atelectasis. There is no demonstrated pleural abnormality. There is mild cardiac enlargement. Calcified left hilar lymph nodes. Normal visualized pulmonary arteries. There is atherosclerotic calcification of the aortic arch with tortuosity. There are diffuse degenerative changes of the visualized thoracic spine. Normal visualized ribs, clavicles, and shoulders. There is no demonstrated abnormality of the visualized soft tissue structures of the upper abdomen. RAD/Chest PA and Lateral IMPRESSION: Since prior study, there has been progressive increase in the interstitial markings suggest lobar mild CHF superimposed on bibasilar atelectasis. Electronically Signed: Rd Hernandez MD at 9:10 EST Tel [phone], Service support ,
== END 2017-04-27 16:40 | disposition home or self-care (01) | DRG 841 ==
PROVIDERS: Physician Assistant; Admitting Provider Internal Medicine; Emergency Provider Emergency Medicine; Family Provider Student in an Organized Health Care Education/Training Program; PCP Student in an Organized Health Care Education/Training Program; Visit Provider Internal Medicine
DX: C90.30 Solitary plasmacytoma not having achieved remission (principal); D62 Acute posthemorrhagic anemia; K92.2 Gastrointestinal hemorrhage, unspecified; N18.3 Chronic kidney disease, stage 3 (moderate); Z90.6 Acquired absence of other parts of urinary tract; K63.9 Disease of intestine, unspecified; I10 Essential (primary) hypertension; K57.30 Diverticulosis of large intestine without perforation or abscess without bleeding; R07.89 Other chest pain; E66.9 Obesity, unspecified; K64.9 Unspecified hemorrhoids; T45.1X5A Adverse effect of antineoplastic and immunosuppressive drugs, initial encounter; Z87.442 Personal history of urinary calculi; Z68.36 Body mass index [BMI] 36.0-36.9, adult; Z85.51 Personal history of malignant neoplasm of bladder; Z87.891 Personal history of nicotine dependence; Z86.711 Personal history of pulmonary embolism; Z86.718 Personal history of other venous thrombosis and embolism; Z79.02 Long term (current) use of antithrombotics/antiplatelets; Z95.828 Presence of other vascular implants and grafts; Z79.899 Other long term (current) drug therapy
CPT/HCPCS: 36415; 36430; 71010; 71020; 71250; 80048; 82274; 83880; 84484; 85014; 85018; 85025; 86850; 86900; 86920; 86922; 88305; 88325; 88341; 88342; 93005; 99285; J1756; J7030; P9016; A4216; J1940

== ENCOUNTER 2017-08-19 20:21 | Inpatient (IN) | payer MEDICARE, BC, SELFPAY ==
[2017-08-19 20:21] VITALS: BP 118/56; PULSE 82; RESP 16; TEMP 36.7; O2SAT 98; BMI 39.2
--- NOTE | 2017-08-19 20:34 | EKG12_ITS ---
Test Reason : Blood Pressure : / mmHG Vent. Rate : 083 BPM Atrial Rate : 083 BPM P-R Int : 154 ms QRS Dur : 156 ms QT Int : 428 ms P-R-T Axes : 054 -60 064 degrees QTc Int : 502 ms Sinus rhythm with Premature atrial complexes Left axis deviation Right bundle branch block Abnormal ECG Confirmed by SHAYNA BYERS, JEANETTE ([id number]), photography editor JAMES CLAIRE ([id number]) on 08/23/2017 4:28:58 PM Referred By: MABEL Confirmed By:JEANETTE CORRAL MD
--- NOTE | 2017-08-19 20:35 | RAD_ITS ---
STUDY: X-RAY CHEST REASON FOR EXAM: Male, 71 years old. Fever. Patient is receiving chemotherapy. TECHNIQUE: Single AP portable view of the chest. COMPARISON: April 27, 2017. FINDINGS: There is hyperinflation of the lungs consistent with chronic obstructive lung disease (COPD). There is no demonstrated pleural abnormality. There is borderline cardiomegaly. Normal mediastinum and donaldo. There is prominence of the pulmonary hilar arteries without peripheral pulmonary vascular congestion. There is atherosclerotic calcification of the aortic arch with tortuosity. Normal visualized thoracic spine. Normal visualized ribs, clavicles, and shoulders. There is no demonstrated abnormality of the visualized soft tissue structures of the upper abdomen. RAD/Chest 1 View (Portable) IMPRESSION: Borderline cardiomegaly without evidence of acute cardiopulmonary disease. Electronically Signed: Tali Lewis MD at 21:03 EST , Service support ,
[2017-08-19 20:50] VITALS: O2SAT 96
[2017-08-19] MEDS: Acetaminophen 500 MG Tablet 1000 MG PO (21:02)
[2017-08-19] MEDS: 0.9% Normal Saline 1,000 ML 250 ML IV (21:02)
[2017-08-19 21:12] LABS: International Normalized Ratio 1.6; Prothrombin Time (Protime)PT. 19.2 SECONDS (11.7-14.9)
[2017-08-19 21:13] LABS: Partial Thromboplast Time 48.4 Seconds (24.1-36.2)
[2017-08-19 21:17] LABS: Absolute Lymphocyte Count 0.12 X10^3/ul (0.83-4.51); Eosinophil# 0.01 X10^3/uL; Eosinophils% 6.3 % (0-5); Hematocrit 25.1 % (40-54); Hemoglobin 7.7 g/dl (13.0-16.5); Lymphocyte # 0.12 X10^3/ul (4.0); Mean Corp Hgb Conc 30.7 g/gl (32-36); Mean Corpuscular Volume 81.5 fL (80-94); Mean Platelet Vol. 9.7 fl (6.2-12.0); Monocyte# 0.02 X10^3/uL; Monocyte% 12.5 % (0-10); Neutrophil # 0.01 X10^3/uL (2.7-7.7); Neutrophil % 6.2 % (47-70); Platelet Count 71 K/mm3 (150-450); RBC Distribution Width CV 13.5 % (11.6-14.6); RBC Distribution Width SD 38.7 fl (35.1-43.9); Red Blood Count 3.08 M/mm3 (4.6-6.2)
[2017-08-19 21:24] LABS: Lactic Acid 1.7 mmol/L (0.4-2.0)
[2017-08-19 21:25] LABS: ALB/GLOB Ratio 0.7 RATIO (0.9-2.4); AST(SGOT) 5 U/L (15-37); Alanine Aminotransfer ALT/SGPT 14 U/L (16-61); Albumin, Serum 2.5 g/dL (3.2-5.0); Alkaline Phosphatase 44 U/L (45-117); Anion Gap 9 (5-15); BUN 29 mg/dL (7-18); BUN/Creat Ratio 18.6 RATIO (10-20); Calcium,Total 7.5 mg/dL (8.5-10.1); Chloride 108 mmol/L (98-107); Creatinine, Serum 1.56 mg/dL (0.70-1.30); EST Glomerular Filtration Rate 47 mL/min (>60); Est Glom Filt Rate - Afr Amer 57 mL/min (>60); Estimated Creatinine Clearance 44.06 ml/min; Globulin 3.5 g/dL (2.2-4.2); Glucose 152 mg/dL (74-106); Potassium 3.7 mmol/L (3.5-5.1); Sodium Level 141 mmol/L (136-145)
--- NOTE | 2017-08-19 21:27 | ED.DCSUM_ITS ---
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 The patient is currently following at [facility]. He did have chemotherapy 1 week ago. He had outpatient lab work done yesterday which showed that he was neutropenic. Overnight throughout the day, the patient began have fever, chills, and sweats. He denies any abdominal pain. He has had some mild constipation but denies any vomiting. He has had no dysuria, cough, sore throat, myalgias. The patient called his oncologist who referred him into the emergency department. He has had no history of prior neutropenia neutropenic fever. 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 Physical Examination: Vital signs reviewed General: Well-nourished, well-developed Head: Normocephalic, atraumatic Eyes: Pupils equal and reactive, extraocular muscles intact Neck, supple, no lymphadenopathy Heart: Regular rate and rhythm Respiratory: No distress, clear bilaterally Abdomen: Soft, nontender, nondistended, no peritoneal signs Back: Nontender Extremities: Nontender, no edema, no cords Skin: Normal color no rash Neuro: Alert and oriented, no focal or lateralizing deficits Test Results: Screening labs demonstrate neutropenia and pancytopenia. Lactate is normal. Urine shows no infection. Chest x-ray unremarkable. Emergency Department Course and Treatment: The patient presents with neutropenic fever. I had actually spoken to his oncologist the [facility]. He was recommended blood cultures, testing for flu, and coverage with IV Zosyn. The patient is well-appearing. He is afebrile here. His labs do demonstrate neutropenia. With his history of reported fever, the patient will be cultured and covered with broad-spectrum antibiotics. I do feel that the patient will benefit from admission at least until cultures are negative. Patient was discussed with the hospitalist will be admitted. Treatment Plan: [] Disposition: Admission Impression: 1. Neutropenic fever This note was generated with [employer] dictation software. It may contain incorrect words, spelling, and punctuation that were not noted in review of the chart prior to signing ED Disposition - Plan for ED Patient: Chief Complaint: Fever Referrals: Martin Nunez DO [Primary Care Provider] -
--- NOTE | 2017-08-19 21:37 | ED.RN ---
LAB CALLS WITH CRITICAL RESULT, WBC 0.2, DR. MONROE MADE AWARE.
[2017-08-19 21:38] LABS: Differential Indicated SCAN CRITERIA MET; POSITIVE COUNT YES; POSITIVE DIFFERENTIAL YES; POSITIVE MORPHOLOGY YES; White Blood Count 0.2 K/mm3 (4.4-11.0)
[2017-08-19 21:40] LABS: Anisocytosis RARE; Hypochromasia 2+; Microcytosis 1+; Ovalocyte RARE; Platelet Estimate MOD DEC (ADEQ)
[2017-08-19 21:51] VITALS: BP 144/58; PULSE 77; RESP 20; O2SAT 98
[2017-08-19 21:58] LABS: Bacteria 0 SEEN /hpf (None Seen); Mucous, Urine 0 SEEN /hpf (<or=2+); Red Blood Cells-Urine 0 SEEN /hpf (0-5)
[2017-08-19 22:02] LABS: Color, Urine Yellow (Yellow); Glucose, Dipstick Normal (Normal); Ketone-Dipstick Negative (Negative); Leukocyte Esterase-Dipstick Negative /ul (Negative); Nitrite-Dipstick Negative (Negative); Occult Blood-Urine 10 /ul (Negative); Protein-Dipstick 30 mg/dl (Negative); Urine Bilirubin Dipstick Negative (Negative); Urine Clarity Clear (Clear); Urine Urobilinogen Normal (Normal); Urine pH 6.5 (5.0 - 8.0)
[2017-08-19 22:20] LABS: Squamous Epithelial Cells - UA 0-5 SEEN /hpf (0-5); White Blood Cells 5-10 SEEN /hpf (0-5)
[2017-08-19 22:39] VITALS: BP 120/51; PULSE 75; RESP 16; TEMP 37.2; O2SAT 98
[2017-08-19 23:01] VITALS: BP 130/54; PULSE 73; RESP 14; O2SAT 98
--- NOTE | 2017-08-19 23:20 | HP.PCM_ITS ---
Problem List (1) Pancytopenia Status: Acute (2) Neutropenic fever Status: Acute (3) Lymphoma Status: Acute History of Present Illness Date of Admission: 08/19/17 Chief Complaint: Neutropenic fever The patient is a 71 year old male w/ h/o bladder cancer s/p bladder resection, HTN, DVT/PE, s/p IVC filter, CKD III - chemotherapy induced, and lymphoma admitted for neutropenic fever. Pt has chemotherapy 1 week ago. Yesterday, he had chill but no other symptoms. Today, he had chill again and his temp read 100.8. He has no other symptoms except for mild constipation. No rash. No cough. No urinary symptoms. No diarrhea. No pain. No myalgia. He was told to go to the ED if he spikes a fever. Past Medical History Allergies aspirin Allergy (Verified 08/19/17 20:25) Other enoxaparin [From Lovenox] Allergy (Verified 08/19/17 20:25) Other heparin Allergy (Verified 08/19/17 20:25) Other Home Medications: Ambulatory Orders Medication Instructions Recorded Amlodipine [Norvasc] 5 mg PO DAILY 04/24/17 Carvedilol [Coreg (Beta Rick)] 6.25 mg PO BID 04/24/17 Lactobacillus Acidophilus 1 each PO DAILY 04/24/17 [Acidophilus] Lisinopril [Zestril] 20 mg PO DAILY 04/24/17 Polyethylene Glycol 8000 5 ml PO DAILY PRN PRN #0 04/27/17 [Polyethylene Glycol] Acyclovir [Zovirax] 400 mg PO BID 08/19/17 Fluconazole [Diflucan] 200 mg PO DAILY 08/19/17 Ondansetron [Zofran Odt] 8 mg PO Q8H PRN PRN 08/19/17 Prochlorperazine Maleate 10 mg PO Q6H PRN 08/19/17 Rivaroxaban [Xarelto] 20 mg PO DAILY 08/19/17 Sennosides/Docusate Sodium 2 each PO BID PRN 08/19/17 [Senna-Docusate Sodium Tablet] Smz/Tmp Ds [Bactrim Ds] 1 tablet PO MOWEFR 08/19/17 Surgical History: cataract, tonsillectomy, - - Bladder removal due to bladder cancer with reconstruction of a bladder Psychiatric History: No pertinent psych hx Smoking Status: Former smoker - *Family History Maternal History Items: No pertinent history Paternal History Items: No pertinent history Review of Systems Constitutional: Reports: Chills, Fever. Denies: Weight Change HEENT: Denies: Head Aches, Sinus Congestion, Sinus Drainage Cardiovascular: Denies: Chest Pain, Palpitations Respiratory: Denies: Cough, Shortness of breath at rest, Sputum production Gastrointestinal: Denies: Abdominal Pain, Nausea, Vomiting Genitourinary: Denies: Dysuria Musculoskeletal: Denies: Joint Pain, Joint Tenderness Skin: Denies: Rash, Wounds Neurological: Denies: Numbness, Tingling, Focal weakness Psychiatric: Denies: Anxiety, Depression, Homicidal Ideations, Suicidal Ideations Hematologic/ Lymphatic: Denies: Easy Bruising, Easy Bleeding VTE Information - Inpt Only VTE Present on Admission: No VTE Mechan Device Prophylaxis: None VTE Pharm Prophylaxis ordered?: No Patient Problems: Active and Suspected Problems Pancytopenia (Acute) Neutropenic fever (Acute) Lymphoma (Acute) - Physical Exam General: Alert, Oriented x3, Cooperative HEENT: Atraumatic, PERRLA, EOMI, Normocephalic Neck: Supple, No JVD, Negative Carotid Bruits Lungs: Clear to auscultation, Normal air movement Cardiovascular: Regular rate, No murmurs Abdomen: Bowel Sounds Present, Soft, Non Tender Extremities: No edema, Capillary Refill Less than 3 Seconds Skin: No rashes, No breakdown Musculoskeletal: No Tenderness to Palpation of Joints or Extremities Neurological: Cranial nerves II-XII grossly intact Psych/Mental Status: Normal Affect, Appropriate Vital Signs Temp Pulse Resp BP Pulse Ox 98.9 F 73 14 130/54 H 98 08/19/17 22:39 08/19/17 23:01 08/19/17 23:01 08/19/17 23:01 08/19/17 23:01 Oxygen Delivery Method Room Air Weight: 120.656 kg Body Mass Index (BMI) 39.2 Microbiology Past 72 Hours 08/19/17 20:48 Influenza Types A,B Direct FA ([facility]ARY) - Final Mucosa - Nose Laboratory Tests Past 24 Hrs 08/19/17 08/19/17 08/19/17 20:45 20:45 20:45 WBC 0.2 L* RBC 3.08 L Hgb 7.7 L Hct 25.1 L MCV 81.5 MCH 25.0 L MCHC 30.7 L RDW 13.5 RDW Differential 38.7 Plt Count 71 L MPV 9.7 Immature Gran % (Auto) 0.000 Neut % (Auto) 6.2 L Lymph % (Auto) 75.0 H Hunt % (Auto) 12.5 H Eos % (Auto) 6.3 H Baso % (Auto) 0.0 Absolute Neuts (auto) 0.0 L Absolute Lymphs (auto) 0.12 L Total Counted Not Reportable Diff Path Review May foll Platelet Estimate MOD DEC Hypochromasia 2+ Anisocytosis RARE Microcytosis 1+ Ovalocytes RARE PT 19.2 H INR 1.6 APTT 48.4 H Sodium 141 Potassium 3.7 Chloride 108 H Carbon Dioxide 24.0 Anion Gap 9 BUN 29 H Creatinine 1.56 H Estim Creat Clear Calc 44.06 Est GFR (MDRD) Af Amer 57 L Est GFR (MDRD) Non-Af 47 L BUN/Creatinine Ratio 18.6 Glucose 152 H Lactic Acid Calcium 7.5 L Total Bilirubin 0.40 AST 5 L ALT 14 L Alkaline Phosphatase 44 L Total Protein 6.0 L Albumin 2.5 L Globulin 3.5 Albumin/Globulin Ratio 0.7 L Urine Color Urine Clarity Urine pH Ur Specific [place] Urine Protein Urine Glucose (UA) Urine Ketones Urine Occult Blood Urine Nitrite Urine Bilirubin Urine Urobilinogen Ur Leukocyte Esterase Urine RBC Urine WBC Ur Squamous Epith Cells Urine Bacteria Urine Mucus 08/19/17 08/19/17 20:45 21:45 WBC RBC Hgb Hct MCV MCH MCHC RDW RDW Differential Plt Count MPV Immature Gran % (Auto) Neut % (Auto) Lymph % (Auto) Hunt % (Auto) Eos % (Auto) Baso % (Auto) Absolute Neuts (auto) Absolute Lymphs (auto) Total Counted Diff Path Review Platelet Estimate Hypochromasia Anisocytosis Microcytosis Ovalocytes PT INR APTT Sodium Potassium Chloride Carbon Dioxide Anion Gap BUN Creatinine Estim Creat Clear Calc Est GFR (MDRD) Af Amer Est GFR (MDRD) Non-Af BUN/Creatinine Ratio Glucose Lactic Acid 1.7 Calcium Total Bilirubin AST ALT Alkaline Phosphatase Total Protein Albumin Globulin Albumin/Globulin Ratio Urine Color Yellow Urine Clarity Clear Urine pH 6.5 Ur Specific [place] 1.010 Urine Protein 30 H Urine Glucose (UA) Normal Urine Ketones Negative Urine Occult Blood 10 H Urine Nitrite Negative Urine Bilirubin Negative Urine Urobilinogen Normal Ur Leukocyte Esterase Negative Urine RBC 0 SEEN Urine WBC 5-10 SEEN Ur Squamous Epith Cells 0-5 SEEN Urine Bacteria 0 SEEN Urine Mucus 0 SEEN Assessment/Plan Active and Suspected Problems Pancytopenia (Acute) Neutropenic fever (Acute) Lymphoma (Acute) 71 year old male w/ h/o bladder cancer s/p bladder resection, HTN, DVT/PE, s/p IVC filter, CKD III - chemotherapy induced, and lymphoma admitted for neutropenic fever. 1) Neutropenic fever: Unclear source. Probably viral. ED physician spoke to oncologist at [facility] and recommended gram negative coverage with zosyn until cultures. Cultures pending. 2) Pancytopenia: Most likely secondary to chemo for lymphoma. C/w acyclovir and fluconazole for prophylaxis. Monitor 3) H/o DVT / PE s/p IVC filter: C/w xarelto. 4) Prophylaxis: Acyclovir, fluconazole, and xarelto
[2017-08-20] VITALS (10 sets, daily range): BP systolic 123–142; BP diastolic 50–60; PULSE 71–97; RESP 16–20; TEMP 36.7–37.1; O2SAT 97–98; BMI 36.8; BMI 39.3
[2017-08-20] MEDS: 0.9% Normal Saline 1,000 ML 125 ML IV ×2 (01:56→13:41)
[2017-08-20] MEDS: Senna/Docusate Sodium 1 Tablet 2 TABLET PO (01:56)
[2017-08-20] MEDS: Piperacil/Tazobactam 3.375 GM/50 ML ML IV ×2 (06:53→14:27)
[2017-08-20 07:14] LABS: Absolute Lymphocyte Count 0.17 X10^3/ul (0.83-4.51); Lymphocyte # 0.17 X10^3/ul (4.0); Mean Corp Hgb Conc 31.8 g/gl (32-36); Mean Corpuscular Hgb 25.2 pg (27.0-32.0); Mean Corpuscular Volume 79.1 fL (80-94); Monocyte# 0.02 X10^3/uL; Neutrophil # 0.01 X10^3/uL (2.7-7.7); Platelet Count 46 K/mm3 (150-450); RBC Distribution Width CV 14.1 % (11.6-14.6); RBC Distribution Width SD 40.5 fl (35.1-43.9); Red Blood Count 2.78 M/mm3 (4.6-6.2)
[2017-08-20 07:15] LABS: Differential Indicated SCAN CRITERIA MET; POSITIVE COUNT YES; POSITIVE DIFFERENTIAL YES; POSITIVE MORPHOLOGY YES
[2017-08-20 07:16] LABS: White Blood Count 0.2 K/mm3 (4.4-11.0)
[2017-08-20 07:30] LABS: Anion Gap 9 (5-15); BUN 27 mg/dL (7-18); BUN/Creat Ratio 17.4 RATIO (10-20); Chloride 107 mmol/L (98-107); Creatinine, Serum 1.55 mg/dL (0.70-1.30); EST Glomerular Filtration Rate 47 mL/min (>60); Est Glom Filt Rate - Afr Amer 57 mL/min (>60); Estimated Creatinine Clearance 44.35 ml/min; Glucose 133 mg/dL (74-106); Potassium 3.4 mmol/L (3.5-5.1); Sodium Level 138 mmol/L (136-145)
[2017-08-20 07:58] LABS: Anisocytosis 1+; Hypochromasia 1+; Platelet Estimate MKD DEC (ADEQ)
--- NOTE | 2017-08-20 09:14 | PCM.PROGNOTE ---
Patient Problems: Active and Suspected Problems Pancytopenia (Acute) Neutropenic fever (Acute) Lymphoma (Acute) Subjective: Zosyn day #2 Patient is a 71-year-old male with a history of lymphoma, hypertension, bladder cancer with bladder resection, DVT/PE, IVC filter, chronic renal failure stage III and obesity presented to the emergency room planing of chills and fever. Denied cough, shortness of breath, sore throat, sinus pain. Vital signs at presentation to the emergency room were temp 98.1, pulse rate 82, blood pressure 118/56, respiratory rate 16 and he was 98% saturated on room air. Significant lab included a white blood cell count of 0.2 with 6.2% neutrophils and 75% lymphocytes. Hemoglobin was low at 7.7 and platelets were 71,000. INR was 1.6 with a PT of 19.2. Electrolytes were unremarkable. The BUN was 29 with a creatinine of 1.56. Lactic acid was 1.7. Calcium is within normal limits. UA had 5-10 white blood cells. Chest x-ray showed hyperinflation but no infiltrates. He was admitted to the hospital with a diagnosis of pancytopenia and neutropenic fever and started on Zosyn at the recommendation of the [facility] oncologist. He has been afebrile since admission. Vital signs are stable. Repeat lab today shows a white blood cell count of 0.2 with 85% lymphocytes and 5% neutrophils. Hemoglobin has dropped to 7.0 and the platelets are 46,000 today. Calcium is low at 3.4 and the BUN is 27 with a creatinine of 1.55. 2 of 2 blood cultures is growing gram-positive cocci in chains in the anaerobic bottle Influenza swab was negative. - Physical Exam General: Alert, Oriented x3, Cooperative, No apparent distress, Well developed, Well nourished, - - lying flat in bed with no SOB and appears comfortable HEENT: Atraumatic, PERRLA, EOMI, Normocephalic, - Oral: No Gingival or Mucosal Lesions/ Ulcerations, Dry Mucosa Neck: Supple, No JVD, Negative Carotid Bruits, No Nodes, Trachea Midline Lungs: Clear to auscultation, No rhonchi, No wheeze, No rales Cardiovascular: Regular rate, Regular Rhythm, Normal S1, Normal S2, No murmurs, No rub noted, No Gallop, - - monitoring coordinator with NSR, PVC's, PAC's and 1 5 beat run NSVT Abdomen: Bowel Sounds Present, Soft, Non-Distended, No Hepato-splenomegaly, Tender - but only with palpation and no guarding, - - rectal - good sphincter tone, no stool in the rectal vault, small amount of brown stool on the examining finger Extremities: No clubbing, No cyanosis, Edema - trace distal LE's....mostly around the sock line Skin: No rashes, No breakdown Musculoskeletal: No Muscle Wasting Neurological: Cranial nerves II-XII grossly intact, Neuro grossly intact, Motor Exam 5/5 strength throughout Psych/Mental Status: Normal Affect, Appropriate Vital Signs Temp Pulse Resp BP Pulse Ox 98.0 F 72 16 142/54 H 97 08/20/17 05:30 08/20/17 06:00 08/20/17 05:30 08/20/17 05:30 08/20/17 05:30 Oxygen Delivery Method Room Air Weight: 249 lb 7 oz Body Mass Index (BMI) 36.8 Intake and Output for Last 24 Hours 08/18/17 08/19/17 08/20/17 23:59 23:59 23:59 Intake Total 1668 / 1668 Output Total 600 / 600 Balance 1068 / 1068 Laboratory Tests Past 24 Hrs 08/20/17 08/20/17 06:35 06:35 WBC 0.2 L* RBC 2.78 L Hgb 7.0 L Hct 22.0 L MCV 79.1 L MCH 25.2 L MCHC 31.8 L RDW 14.1 RDW Differential 40.5 Plt Count 46 L* Immature Gran % (Auto) 0.000 Neut % (Auto) 5.0 L Lymph % (Auto) 85.0 H [place] % (Auto) 10.0 Eos % (Auto) 0.0 Baso % (Auto) 0.0 Absolute Neuts (auto) 0.0 L Absolute Lymphs (auto) 0.17 L Total Counted Not Reportable Differential Comment Diff Path Review May foll Platelet Estimate MKD DEC Hypochromasia 1+ Anisocytosis 1+ Sodium 138 Potassium 3.4 L Chloride 107 Carbon Dioxide 22.0 Anion Gap 9 BUN 27 H Creatinine 1.55 H Estim Creat Clear Calc 44.35 Est GFR (MDRD) Af Amer 57 L Est GFR (MDRD) Non-Af 47 L BUN/Creatinine Ratio 17.4 Glucose 133 H Calcium 7.0 L Assessment/Plan Active and Suspected Problems Pancytopenia (Acute) Neutropenic fever (Acute) Lymphoma (Acute) Impressions 1. neutropenic fever - suspect bowel source, with pancytopenia due to chemo 2. Lymphoma - recently treated at the [facility] 3. Remote hx of C DIFF 4. hx of bladder CA - S/P resection with bladder resonstruction 5. HTN 6. NSVT - asymptomatic 7. Hypokalemia 8. Constipation despite Miralax and Lactulose - no N/V, good BS's 9. DVT/pulmonary embolus-on Xarelto with IVC filter present 10. Chronic renal failure stage III Will call [facility] - I suspect they are going to want him transferred Continue the Zosyn Transfuse 2 units of CMV negative, irradiated PRBC's May need to hold Xarelto if the platelets get any lower supplement the potassium Mag Citrate Repeat BC's if any spike in temp Continue IV fluids neutropenic isolation Hemoccult stool if he has a BM Code Visit Inpatient E&M: 52701 Subs Hosp L3
[2017-08-20] MEDS: Acyclovir 200 MG Capsule 400 MG PO (09:22)
[2017-08-20] MEDS: Lisinopril 20 MG Tablet PO (09:22)
[2017-08-20] MEDS: Fluconazole 100 MG Tablet 200 MG PO (09:22)
[2017-08-20] MEDS: Carvedilol 6.25 MG Tablet PO (09:23)
[2017-08-20] MEDS: amLODIPine 5 MG Tablet PO (09:23)
[2017-08-20] MEDS: Rivaroxaban 20 MG Tablet PO (09:24)
[2017-08-20] MEDS: Acetaminophen 325 MG Tablet PO (09:37)
--- NOTE | 2017-08-20 10:10 | CASEMGMT ---
Face to Face with patient for initial transition planning/care coordination assessment. RN MIREYA introduced self and role at [facility], pt voices understanding and consents to assessment at this time. Pt is sitting up in chair in no distress at this time. Pt is A/O x4 at this time and answers all questions appropriately at this time. Care providers, pharmacy, and demographics verified. See attached link. Pt voices no further concerns/needs at this time. Advised pt to ask for CM if any further questions/concerns/needs arise, voices understanding. CM to follow for any further discharge planning/needs. PLAN: [place]
--- NOTE | 2017-08-20 10:26 | NURSING ---
noted episode vtach on monitor in to check on pt, pt verbalized he had been moving around and denies all chestpain or symptoms. call light within reach.
--- NOTE | 2017-08-20 13:25 | PCM.DC.SUM ---
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 Electronically Signed: Tali Lewis MD at 21:03 EST , Service support , Laboratory Tests 08/19/17 08/19/17 08/19/17 20:45 20:45 20:45 WBC 0.2 L* RBC 3.08 L Hgb 7.7 L Hct 25.1 L MCV 81.5 MCH 25.0 L MCHC 30.7 L RDW 13.5 RDW Differential 38.7 Plt Count 71 L MPV 9.7 Immature Gran % (Auto) 0.000 Neut % (Auto) 6.2 L Lymph % (Auto) 75.0 H [place] % (Auto) 12.5 H Eos % (Auto) 6.3 H Baso % (Auto) 0.0 Absolute Neuts (auto) 0.0 L Absolute Lymphs (auto) 0.12 L Total Counted Not Reportable Differential Comment Diff Path Review May foll Platelet Estimate MOD DEC Hypochromasia 2+ Anisocytosis RARE Microcytosis 1+ Ovalocytes RARE PT 19.2 H INR 1.6 APTT 48.4 H Sodium 141 Potassium 3.7 Chloride 108 H Carbon Dioxide 24.0 Anion Gap 9 BUN 29 H Creatinine 1.56 H Estim Creat Clear Calc 44.06 Est GFR (MDRD) Af Amer 57 L Est GFR (MDRD) Non-Af 47 L BUN/Creatinine Ratio 18.6 Glucose 152 H Lactic Acid Calcium 7.5 L Total Bilirubin 0.40 AST 5 L ALT 14 L Alkaline Phosphatase 44 L Total Protein 6.0 L Albumin 2.5 L Globulin 3.5 Albumin/Globulin Ratio 0.7 L Urine Color Urine Clarity Urine pH Ur Specific [place] Urine Protein Urine Glucose (UA) Urine Ketones Urine Occult Blood Urine Nitrite Urine Bilirubin Urine Urobilinogen Ur Leukocyte Esterase Urine RBC Urine WBC Ur Squamous Epith Cells Urine Bacteria Urine Mucus Blood Type Antibody Screen Crossmatch 08/19/17 08/19/17 08/20/17 20:45 21:45 06:35 WBC RBC Hgb Hct MCV MCH MCHC RDW RDW Differential Plt Count MPV Immature Gran % (Auto) Neut % (Auto) Lymph % (Auto) [place] % (Auto) Eos % (Auto) Baso % (Auto) Absolute Neuts (auto) Absolute Lymphs (auto) Total Counted Differential Comment Diff Path Review Platelet Estimate Hypochromasia Anisocytosis Microcytosis Ovalocytes PT INR APTT Sodium 138 Potassium 3.4 L Chloride 107 Carbon Dioxide 22.0 Anion Gap 9 BUN 27 H Creatinine 1.55 H Estim Creat Clear Calc 44.35 Est GFR (MDRD) Af Amer 57 L Est GFR (MDRD) Non-Af 47 L BUN/Creatinine Ratio 17.4 Glucose 133 H Lactic Acid 1.7 Calcium 7.0 L Total Bilirubin AST ALT Alkaline Phosphatase Total Protein Albumin Globulin Albumin/Globulin Ratio Urine Color Yellow Urine Clarity Clear Urine pH 6.5 Ur Specific [place] 1.010 Urine Protein 30 H Urine Glucose (UA) Normal Urine Ketones Negative Urine Occult Blood 10 H Urine Nitrite Negative Urine Bilirubin Negative Urine Urobilinogen Normal Ur Leukocyte Esterase Negative Urine RBC 0 SEEN Urine WBC 5-10 SEEN Ur Squamous Epith Cells 0-5 SEEN Urine Bacteria 0 SEEN Urine Mucus 0 SEEN Blood Type Antibody Screen Crossmatch 08/20/17 08/20/17 06:35 10:02 WBC 0.2 L* RBC 2.78 L Hgb 7.0 L Hct 22.0 L MCV 79.1 L MCH 25.2 L MCHC 31.8 L RDW 14.1 RDW Differential 40.5 Plt Count 46 L* MPV Immature Gran % (Auto) 0.000 Neut % (Auto) 5.0 L Lymph % (Auto) 85.0 H [place] % (Auto) 10.0 Eos % (Auto) 0.0 Baso % (Auto) 0.0 Absolute Neuts (auto) 0.0 L Absolute Lymphs (auto) 0.17 L Total Counted Not Reportable Differential Comment Diff Path Review May foll Platelet Estimate MKD DEC Hypochromasia 1+ Anisocytosis 1+ Microcytosis Ovalocytes PT INR APTT Sodium Potassium Chloride Carbon Dioxide Anion Gap BUN Creatinine Estim Creat Clear Calc Est GFR (MDRD) Af Amer Est GFR (MDRD) Non-Af BUN/Creatinine Ratio Glucose Lactic Acid Calcium Total Bilirubin AST ALT Alkaline Phosphatase Total Protein Albumin Globulin Albumin/Globulin Ratio Urine Color Urine Clarity Urine pH Ur Specific [place] Urine Protein Urine Glucose (UA) Urine Ketones Urine Occult Blood Urine Nitrite Urine Bilirubin Urine Urobilinogen Ur Leukocyte Esterase Urine RBC Urine WBC Ur Squamous Epith Cells Urine Bacteria Urine Mucus Blood Type O POSITIVE Antibody Screen NEGATIVE Crossmatch See Detail Microbiology 08/19/17 20:50 Blood Culture (Wb) - Left Hand Blood Culture - Preliminary GM + cocci in chains, anaerobic bottle 08/19/17 20:45 Blood Culture (Wb) - Right Forearm Blood Culture - Preliminary GM + cocci in chains in anaerobic bottles 08/19/17 20:48 Mucosa - Nose Influenza Types A,B Direct FA (ROSEMARY) - Final none Operations: None Procedures: None Summary of Care Provided: Mr. 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 He is being treated for Lymphoma at [facility] by Dr. Stephen Mccain. He denied cough, shortness of breath, sore throat, sinus pain, N/V/D/dysuria, open wounds and abdominal pain. He had not had a BM in 5-6 days despite Miralax and Lactulose. Vital signs at presentation to the emergency room were temp 98.1, pulse rate 82, blood pressure 118/56, respiratory rate 16 and he was 98% saturated on room air. Significant lab included a white blood cell count of 0.2 with 6.2% neutrophils and 75% lymphocytes. Hemoglobin was low at 7.7 and platelets were 71,000. INR was 1.6 with a PT of 19.2. He is taking Xarelto. Electrolytes were unremarkable. The BUN was 29 with a creatinine of 1.56. Lactic acid was 1.7. Calcium was within normal limits. UA had 5-10 white blood cells and was nitrite negative and LE negative. Chest x-ray showed hyperinflation but no infiltrates. He was admitted to the hospital with a diagnosis of pancytopenia and neutropenic fever and started on Zosyn. Laboratory on 08/20/2017 showed a WBC count of 0.2 with 85% lymphocytes and 5% neutrophils. Hemoglobin was 7.0 and platelets were 46,000. Potassium had decreased to 3.4 and the BUN was 27 with a creatinine of 1.55. LFTs were unremarkable. The 2 peripheral blood cultures drawn at admission were positive for gram-positive cocci in chains in the anaerobic bottle. Influenza swab was negative. PRBC's were ordered. He has had no fever since admission and he continues to deny cough, N/V, dysuria. He has mild abdominal pain but, only with palpation and he still has not had a BM. Mag Citrate was ordered. I contacted the [facility] and he has been accepted for transfer to the [facility]. This occurred rather quickly and he had not received blood or Mag Citrate prior to transfer. At the time of transfer he is hemodynamically stable with a temperature of 98.7, pulse rate of 76, blood pressure of 141/50, respiratory rate 18 and pulse ox on room air of 98%. PE: Alert and oriented X3 MM -dry Lungs - CTA throughout with good breath sounds Heart - RRR, no MM, no rub and no gallop abdomen - mildly distended and tympanic, increased BS's, soft, no guarding with palpation but he had some discomfort with palpation mild distal peripheral edema no excessive bruising, no wounds, no rashes rectal - no stool in the rectal vault He is being transferred by ambulance to the [facility] and will be admitted by the oncology service. Continue Zosyn for now. Hold off on the Mag Citrate for now since he is fearful he will have to have a BM in the ambulance. This note was generated with [employer] dictation software. It may contain incorrect words, spelling, and punctuation that were not noted in checking the note before signing. Home Medications: Medications to take at Discharge Amlodipine [Norvasc] 5 mg PO DAILY 04/24/17 Carvedilol [Coreg (Beta Rick)] 6.25 mg PO BID 04/24/17 Lactobacillus Acidophilus [Acidophilus] 1 each PO DAILY 04/24/17 Lisinopril [Zestril] 20 mg PO DAILY 04/24/17 Polyethylene Glycol 8000 [Polyethylene Glycol] 5 ml PO DAILY PRN PRN #0 04/27/17 Acyclovir [Zovirax] 400 mg PO BID 08/19/17 Fluconazole [Diflucan] 200 mg PO DAILY 08/19/17 Ondansetron [Zofran Odt] 8 mg PO Q8H PRN PRN 08/19/17 Prochlorperazine Maleate 10 mg PO Q6H PRN 08/19/17 Rivaroxaban [Xarelto] 20 mg PO DAILY 08/19/17 Sennosides/Docusate Sodium [Senna-Docusate Sodium Tablet] 2 each PO BID PRN 08/19/17 Smz/Tmp Ds [Bactrim Ds] 1 tablet PO MOWEFR 08/19/17 Lactulose 10 gm PO TID 08/20/17 Primary Care Physician: Martin Nunez DO [Primary Care Provider] - Disposition: Acute care Hospital Minutes spent on discharge:: 45 Patient Condition:: Guarded Meaningful Use Info Meaningful Use Diagnoses (Choose all that apply): None applicable Code Visit Inpatient E&M: 12023 Disch Hosp
--- NOTE | 2017-08-20 13:48 | DS.PCM_ITS ---
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 Electronically Signed: Tali Lewis MD at 21:03 EST , Service support , Laboratory Tests 08/19/17 08/19/17 08/19/17 20:45 20:45 20:45 WBC 0.2 L* RBC 3.08 L Hgb 7.7 L Hct 25.1 L MCV 81.5 MCH 25.0 L MCHC 30.7 L RDW 13.5 RDW Differential 38.7 Plt Count 71 L MPV 9.7 Immature Gran % (Auto) 0.000 Neut % (Auto) 6.2 L Lymph % (Auto) 75.0 H [place] % (Auto) 12.5 H Eos % (Auto) 6.3 H Baso % (Auto) 0.0 Absolute Neuts (auto) 0.0 L Absolute Lymphs (auto) 0.12 L Total Counted Not Reportable Differential Comment Diff Path Review May foll Platelet Estimate MOD DEC Hypochromasia 2+ Anisocytosis RARE Microcytosis 1+ Ovalocytes RARE PT 19.2 H INR 1.6 APTT 48.4 H Sodium 141 Potassium 3.7 Chloride 108 H Carbon Dioxide 24.0 Anion Gap 9 BUN 29 H Creatinine 1.56 H Estim Creat Clear Calc 44.06 Est GFR (MDRD) Af Amer 57 L Est GFR (MDRD) Non-Af 47 L BUN/Creatinine Ratio 18.6 Glucose 152 H Lactic Acid Calcium 7.5 L Total Bilirubin 0.40 AST 5 L ALT 14 L Alkaline Phosphatase 44 L Total Protein 6.0 L Albumin 2.5 L Globulin 3.5 Albumin/Globulin Ratio 0.7 L Urine Color Urine Clarity Urine pH Ur Specific [place] Urine Protein Urine Glucose (UA) Urine Ketones Urine Occult Blood Urine Nitrite Urine Bilirubin Urine Urobilinogen Ur Leukocyte Esterase Urine RBC Urine WBC Ur Squamous Epith Cells Urine Bacteria Urine Mucus Blood Type Antibody Screen Crossmatch 08/19/17 08/19/17 08/20/17 20:45 21:45 06:35 WBC RBC Hgb Hct MCV MCH MCHC RDW RDW Differential Plt Count MPV Immature Gran % (Auto) Neut % (Auto) Lymph % (Auto) [place] % (Auto) Eos % (Auto) Baso % (Auto) Absolute Neuts (auto) Absolute Lymphs (auto) Total Counted Differential Comment Diff Path Review Platelet Estimate Hypochromasia Anisocytosis Microcytosis Ovalocytes PT INR APTT Sodium 138 Potassium 3.4 L Chloride 107 Carbon Dioxide 22.0 Anion Gap 9 BUN 27 H Creatinine 1.55 H Estim Creat Clear Calc 44.35 Est GFR (MDRD) Af Amer 57 L Est GFR (MDRD) Non-Af 47 L BUN/Creatinine Ratio 17.4 Glucose 133 H Lactic Acid 1.7 Calcium 7.0 L Total Bilirubin AST ALT Alkaline Phosphatase Total Protein Albumin Globulin Albumin/Globulin Ratio Urine Color Yellow Urine Clarity Clear Urine pH 6.5 Ur Specific [place] 1.010 Urine Protein 30 H Urine Glucose (UA) Normal Urine Ketones Negative Urine Occult Blood 10 H Urine Nitrite Negative Urine Bilirubin Negative Urine Urobilinogen Normal Ur Leukocyte Esterase Negative Urine RBC 0 SEEN Urine WBC 5-10 SEEN Ur Squamous Epith Cells 0-5 SEEN Urine Bacteria 0 SEEN Urine Mucus 0 SEEN Blood Type Antibody Screen Crossmatch 08/20/17 08/20/17 06:35 10:02 WBC 0.2 L* RBC 2.78 L Hgb 7.0 L Hct 22.0 L MCV 79.1 L MCH 25.2 L MCHC 31.8 L RDW 14.1 RDW Differential 40.5 Plt Count 46 L* MPV Immature Gran % (Auto) 0.000 Neut % (Auto) 5.0 L Lymph % (Auto) 85.0 H [place] % (Auto) 10.0 Eos % (Auto) 0.0 Baso % (Auto) 0.0 Absolute Neuts (auto) 0.0 L Absolute Lymphs (auto) 0.17 L Total Counted Not Reportable Differential Comment Diff Path Review May foll Platelet Estimate MKD DEC Hypochromasia 1+ Anisocytosis 1+ Microcytosis Ovalocytes PT INR APTT Sodium Potassium Chloride Carbon Dioxide Anion Gap BUN Creatinine Estim Creat Clear Calc Est GFR (MDRD) Af Amer Est GFR (MDRD) Non-Af BUN/Creatinine Ratio Glucose Lactic Acid Calcium Total Bilirubin AST ALT Alkaline Phosphatase Total Protein Albumin Globulin Albumin/Globulin Ratio Urine Color Urine Clarity Urine pH Ur Specific [place] Urine Protein Urine Glucose (UA) Urine Ketones Urine Occult Blood Urine Nitrite Urine Bilirubin Urine Urobilinogen Ur Leukocyte Esterase Urine RBC Urine WBC Ur Squamous Epith Cells Urine Bacteria Urine Mucus Blood Type O POSITIVE Antibody Screen NEGATIVE Crossmatch See Detail Microbiology 08/19/17 20:50 Blood Culture (Wb) - Left Hand Blood Culture - Preliminary GM + cocci in chains, anaerobic bottle 08/19/17 20:45 Blood Culture (Wb) - Right Forearm Blood Culture - Preliminary GM + cocci in chains in anaerobic bottles 08/19/17 20:48 Mucosa - Nose Influenza Types A,B Direct FA (ROSEMARY) - Final none Operations: None Procedures: None Summary of Care Provided: Mr. 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 He is being treated for Lymphoma at [facility] by Dr. Stephen Mccain. He denied cough, shortness of breath, sore throat, sinus pain, N/V/D/dysuria, open wounds and abdominal pain. He had not had a BM in 5-6 days despite Miralax and Lactulose. Vital signs at presentation to the emergency room were temp 98.1, pulse rate 82, blood pressure 118/56, respiratory rate 16 and he was 98% saturated on room air. Significant lab included a white blood cell count of 0.2 with 6.2% neutrophils and 75% lymphocytes. Hemoglobin was low at 7.7 and platelets were 71,000. INR was 1.6 with a PT of 19.2. He is taking Xarelto. Electrolytes were unremarkable. The BUN was 29 with a creatinine of 1.56. Lactic acid was 1.7. Calcium was within normal limits. UA had 5-10 white blood cells and was nitrite negative and LE negative. Chest x-ray showed hyperinflation but no infiltrates. He was admitted to the hospital with a diagnosis of pancytopenia and neutropenic fever and started on Zosyn. Laboratory on 08/20/2017 showed a WBC count of 0.2 with 85% lymphocytes and 5 % neutrophils. Hemoglobin was 7.0 and platelets were 46,000. Potassium had decreased to 3.4 and the BUN was 27 with a creatinine of 1.55. LFTs were unremarkable. The 2 peripheral blood cultures drawn at admission were positive for gram-positive cocci in chains in the anaerobic bottle. Influenza swab was negative. PRBC's were ordered. He has had no fever since admission and he continues to deny cough, N/V, dysuria. He has mild abdominal pain but, only with palpation and he still has not had a BM. Mag Citrate was ordered. I contacted the [facility] and he has been accepted for transfer to the [facility]. This occurred rather quickly and he had not received blood or Mag Citrate prior to transfer. At the time of transfer he is hemodynamically stable with a temperature of 98.7, pulse rate of 76, blood pressure of 141/50, respiratory rate 18 and pulse ox on room air of 98%. PE: Alert and oriented X3 MM -dry Lungs - CTA throughout with good breath sounds Heart - RRR, no MM, no rub and no gallop abdomen - mildly distended and tympanic, increased BS's, soft, no guarding with palpation but he had some discomfort with palpation mild distal peripheral edema no excessive bruising, no wounds, no rashes rectal - no stool in the rectal vault He is being transferred by ambulance to the [facility] and will be admitted by the oncology service. Continue Zosyn for now. Hold off on the Mag Citrate for now since he is fearful he will have to have a BM in the ambulance. This note was generated with [employer] dictation software. It may contain incorrect words, spelling, and punctuation that were not noted in checking the note before signing. Home Medications: Medications to take at Discharge Amlodipine [Norvasc] 5 mg PO DAILY 04/24/17 Carvedilol [Coreg (Beta Rick)] 6.25 mg PO BID 04/24/17 Lactobacillus Acidophilus [Acidophilus] 1 each PO DAILY 04/24/17 Lisinopril [Zestril] 20 mg PO DAILY 04/24/17 Polyethylene Glycol 8000 [Polyethylene Glycol] 5 ml PO DAILY PRN PRN #0 Acyclovir [Zovirax] 400 mg PO BID 08/19/17 Fluconazole [Diflucan] 200 mg PO DAILY 08/19/17 Ondansetron [Zofran Odt] 8 mg PO Q8H PRN PRN 08/19/17 Prochlorperazine Maleate 10 mg PO Q6H PRN 08/19/17 Rivaroxaban [Xarelto] 20 mg PO DAILY 08/19/17 Sennosides/Docusate Sodium [Senna-Docusate Sodium Tablet] 2 each PO BID PRN 08/07 Smz/Tmp Ds [Bactrim Ds] 1 tablet PO MOWEFR 08/19/17 Lactulose 10 gm PO TID 08/20/17 Primary Care Physician: Martin Nunez DO [Primary Care Provider] - Disposition: Acute care Hospital Minutes spent on discharge:: 45 Patient Condition:: Guarded Meaningful Use Info Meaningful Use Diagnoses (Choose all that apply): None applicable Code Visit Inpatient E&M: 80771 Disch Hosp
--- NOTE | 2017-08-20 14:13 | PCA ---
Call to [facility] for pt transfer to [facility]. Spoke with Kory, transport set up for [id number]. Informed primary RN and set up and charger
[2017-08-20] MEDS: proCHLORPERazine 5 MG Tablet 10 MG PO (14:50)
[2017-08-22 13:17] LABS: Pathologist Review Reviewed
[2017-08-22 13:19] LABS: Pathologist Review Reviewed
== END 2017-08-20 14:49 | disposition short-term general hospital (02) | DRG 809 ==
LOC: ED 21:34 → MS3 23:20
PROVIDERS: Admitting Provider Internal Medicine; Emergency Provider Emergency Medicine; Family Provider Student in an Organized Health Care Education/Training Program; PCP Student in an Organized Health Care Education/Training Program; Visit Provider Internal Medicine
DX: D70.9 Neutropenia, unspecified (principal); I47.2 Ventricular tachycardia; R78.81 Bacteremia; C85.90 Non-Hodgkin lymphoma, unspecified, unspecified site; N18.3 Chronic kidney disease, stage 3 (moderate); R50.81 Fever presenting with conditions classified elsewhere; D61.810 Antineoplastic chemotherapy induced pancytopenia; T45.1X5A Adverse effect of antineoplastic and immunosuppressive drugs, initial encounter; Z86.718 Personal history of other venous thrombosis and embolism; Z79.01 Long term (current) use of anticoagulants; Z95.828 Presence of other vascular implants and grafts; I12.9 Hypertensive chronic kidney disease with stage 1 through stage 4 chronic kidney disease, or unspecified chronic kidney disease; E66.9 Obesity, unspecified; Z68.36 Body mass index [BMI] 36.0-36.9, adult; Z85.51 Personal history of malignant neoplasm of bladder; E87.6 Hypokalemia; K59.00 Constipation, unspecified; Z87.891 Personal history of nicotine dependence
CPT/HCPCS: 36415; 71045; 80048; 80053; 81001; 83605; 85025; 85610; 85730; 86850; 86900; 87040; 87077; 87086; 87088; 87149; 87186; 87804; 93005; 94762; 99285; J7030; A4216

== ENCOUNTER 2017-10-08 17:34 | Emergency (ER) | payer MEDICARE, BC, SELFPAY ==
[2017-10-08 17:35] VITALS: BP 153/84; PULSE 95; RESP 20; TEMP 36.9; O2SAT 96; BMI 37.3
--- NOTE | 2017-10-08 17:57 | EKG12_ITS ---
Test Reason : FEVER Blood Pressure : / mmHG Vent. Rate : 084 BPM Atrial Rate : 084 BPM P-R Int : 152 ms QRS Dur : 156 ms QT Int : 410 ms P-R-T Axes : 074 -69 048 degrees QTc Int : 484 ms Sinus rhythm with Premature atrial complexes Left axis deviation Right bundle branch block Abnormal ECG Confirmed by JANI BYERS, BOYD ([id number]), commercial production editor JAMES CLAIRE ([id number] on 10/10/2017 1:59:27 PM Referred By: TAVIA Confirmed By:BOYD GUNTER MD
--- NOTE | 2017-10-08 18:00 | ED.DCSUM_ITS ---
- ER Visit Summary Date of Service: 10/08/17 Chief Complaint: Neutropenic fever History of Present Illness: The patient is a 72 M currently on chemotherapy for lymphoma who presents with fever 6 days after last round of chemotherapy. Patient has been watching his temperature as instructed by his oncologist, and today had a fever of 100.6. He states he does not feel well, and has had a cough productive of large amount of purulent appearing sputum today. He also has chest pain in the lower left substernal region. He has a sore throat and states it hurts to swallow, including liquids. He had diarrhea 2 days ago but stopped a stool softener and has not had a bowel movement since. He was admitted 1 month ago for neutropenic fever after chemotherapy. History of chronic kidney disease, hypertension, bladder cancer, lymphoma, pulmonary embolism on Xarelto and with an IVC filter. Physical Examination: Vital signs: Febrile at 100.7, hemodynamically stable, no hypoxia on room air General: well nourished, well developed, in no distress Skin: warm, dry, no rash, no pallor HEENT: normocephalic and atraumatic; PERRL, EOMI, moist mucous membranes, erythematous scattered small lesions on the upper and lower lips, dentures in place, unable to visualize posterior oropharynx but did not use a tongue depressor given neutropenic status Cardiovascular: regular rate and rhythm without murmurs, no peripheral edema, 2 + pulses all distal extremities Respiratory: No increased work of breathing, lungs are clear to auscultation bilaterally, no rales, rhonchi or wheezing Abdominal: Abdomen is soft, nontender with normoactive bowel sounds, no guarding or rebound, no masses, well-healed lower midline abdominal scar MSK: Moves all extremities, no deformities, normal strength Neuro: Awake and alert, oriented ?4. No facial droop, sensation and motor function intact and symmetric Test Results: Abnormal Lab Results 10/08/17 10/08/17 10/08/17 18:15 18:15 18:15 WBC 0.2 L* RBC 2.99 L Hgb 7.9 L Hct 25.4 L MCV 84.9 MCH 26.4 L MCHC 31.1 L RDW 20.5 H RDW Differential 63.8 H Plt Count 80 L MPV 9.5 Immature Gran % (Auto) 0.000 Neut % (Auto) 0.0 L Lymph % (Auto) 85.7 H Crockett % (Auto) 9.5 Eos % (Auto) 0.0 Baso % (Auto) 4.8 H Absolute Neuts (auto) 0.0 L Absolute Lymphs (auto) 0.18 L Total Counted Not Reportable Differential Comment SCANNED Diff Path Review May foll Platelet Estimate MOD DEC Hypochromasia 1+ Anisocytosis 1+ PT 16.4 H INR 1.3 APTT 41.3 H Sodium 143 Potassium 3.5 Chloride 109 H Carbon Dioxide 27.0 Anion Gap 7 BUN 34 H Creatinine 1.49 H Estim Creat Clear Calc 45.47 Est GFR (MDRD) Af Amer 60 Est GFR (MDRD) Non-Af 49 L BUN/Creatinine Ratio 22.8 H Glucose 169 H Lactic Acid Calcium 8.2 L Phosphorus 2.1 L Magnesium 1.9 Total Bilirubin 0.50 AST 6 L ALT 18 Alkaline Phosphatase 66 Total Protein 6.3 L Albumin 3.0 L Globulin 3.3 Albumin/Globulin Ratio 0.9 Urine Color Urine Clarity Urine pH Ur Specific [place]oh Urine Protein Urine Glucose (UA) Urine Ketones Urine Occult Blood Urine Nitrite Urine Bilirubin Urine Urobilinogen Ur Leukocyte Esterase Urine RBC Urine WBC Ur Squamous Epith Cells Urine Bacteria Urine Mucus 10/08/17 10/08/17 18:15 19:00 WBC RBC Hgb Hct MCV MCH MCHC RDW RDW Differential Plt Count MPV Immature Gran % (Auto) Neut % (Auto) Lymph % (Auto) Crockett % (Auto) Eos % (Auto) Baso % (Auto) Absolute Neuts (auto) Absolute Lymphs (auto) Total Counted Differential Comment Diff Path Review Platelet Estimate Hypochromasia Anisocytosis PT INR APTT Sodium Potassium Chloride Carbon Dioxide Anion Gap BUN Creatinine Estim Creat Clear Calc Est GFR (MDRD) Af Amer Est GFR (MDRD) Non-Af BUN/Creatinine Ratio Glucose Lactic Acid 2.1 H Calcium Phosphorus Magnesium Total Bilirubin AST ALT Alkaline Phosphatase Total Protein Albumin Globulin Albumin/Globulin Ratio Urine Color Yellow Urine Clarity Clear Urine pH 6.0 Ur Specific [place] 1.010 Urine Protein 30 H Urine Glucose (UA) Normal Urine Ketones Negative Urine Occult Blood 10 H Urine Nitrite Negative Urine Bilirubin Negative Urine Urobilinogen Normal Ur Leukocyte Esterase Negative Urine RBC 0-5 SEEN Urine WBC 10-25 SEEN Ur Squamous Epith Cells 0 SEEN Urine Bacteria 0 SEEN Urine Mucus 0 SEEN Emergency Department Course and Treatment: Patient presents febrile with recent chemotherapy, concerning for neutropenic fever. Neutropenic precautions taken. Patient was given IV fluids and started on empiric antibiotic treatment of Zosyn as well as vancomycin due to central line placement. Patient was neutropenic with white count of 200 and neutrophils of 0. Lactate elevated at 2.1. Urine positive for pyuria, and patient states he does have an artificial bladder given bladder removal after bladder cancer. Had no urinary symptoms but also has had decreased urination due to decreased oral intake from the mouth lesions and throat pain. Chest x-ray showed no obvious pneumonia. Blood cultures and urine culture pending. Given that patient has neutropenic fever of uncertain etiology, with suspicion for respiratory infection, mucosal infection, UTI, and his oncology care is at the [facility], he was discussed with the oncologist biofuels production associate to arrange transfer to the oncology department for further specialized care. Patient and son agreed with this plan. Patient transferred via EMS. Treatment Plan: [] Disposition: [] Impression: Neutropenic fever, severe sepsis, pyuria, bronchitis This note was generated with [employer] dictation software. It may contain incorrect words, spelling, and punctuation that were not noted in review of the chart prior to signing ED Disposition - Plan for ED Patient: Chief Complaint: Fever Referrals: Martin Nunez DO [Primary Care Provider] -
[2017-10-08 18:19] VITALS: BP 188/84; PULSE 82; RESP 22; TEMP 38.2; O2SAT 100
[2017-10-08] MEDS: 0.9% Normal Saline 1,000 ML 999 ML IV (18:25)
[2017-10-08 18:39] LABS: Absolute Lymphocyte Count 0.18 X10^3/ul (0.83-4.51); Basophil# 0.01 X10^3/uL; Basophil% 4.8 % (0-1); Hematocrit 25.4 % (40-54); Hemoglobin 7.9 g/dl (13.0-16.5); Lymphocyte # 0.18 X10^3/ul (4.0); Lymphocyte % 85.7 % (19-41); Mean Corp Hgb Conc 31.1 g/gl (32-36); Mean Corpuscular Hgb 26.4 pg (27.0-32.0); Mean Corpuscular Volume 84.9 fL (80-94); Mean Platelet Vol. 9.5 fl (6.2-12.0); Monocyte# 0.02 X10^3/uL; Monocyte% 9.5 % (0-10); Platelet Count 80 K/mm3 (150-450); RBC Distribution Width CV 20.5 % (11.6-14.6); RBC Distribution Width SD 63.8 fl (35.1-43.9); Red Blood Count 2.99 M/mm3 (4.6-6.2)
[2017-10-08 18:40] LABS: POSITIVE COUNT YES; POSITIVE DIFFERENTIAL YES; POSITIVE MORPHOLOGY YES
--- NOTE | 2017-10-08 18:40 | RAD_ITS ---
STUDY: X-RAY CHEST REASON FOR EXAM: Male, 72 years old. Cough. Illness. TECHNIQUE: Frontal and lateral views of the chest. COMPARISON: August 19, 2017 FINDINGS: A right internal jugular catheter has been placed since the prior study with the tip in the mid-SVC. There is stable hyperexpansion with changes of COPD unaltered. There are stable granulomatous calcifications. There is no demonstrated pleural abnormality. There is borderline cardiomegaly unchanged. Normal mediastinum and donaldo. Normal visualized pulmonary arteries. There is atherosclerotic calcification of the aortic arch with tortuosity unchanged. There are diffuse degenerative changes of the visualized thoracic spine. Normal visualized ribs, clavicles, and shoulders. There is no demonstrated abnormality of the visualized soft tissue structures of the upper abdomen. RAD/Chest PA and Lateral IMPRESSION: Placement of internal jugular catheter as described without complications. Stable cardiomegaly with findings compatible with COPD. No new or acute pathology. Electronically Signed: Silver Adame MD at 19:11 EDT , Service support ,
[2017-10-08 18:41] LABS: Differential Indicated SCAN CRITERIA MET; White Blood Count 0.2 K/mm3 (4.4-11.0)
--- NOTE | 2017-10-08 18:41 | ED.RN ---
wbc 0.2 dr. mccall aware
[2017-10-08 18:42] LABS: International Normalized Ratio 1.3; Prothrombin Time (Protime)PT. 16.4 SECONDS (11.7-14.9)
[2017-10-08 18:43] LABS: Partial Thromboplast Time 41.3 Seconds (24.1-36.2)
[2017-10-08 18:45] LABS: ALB/GLOB Ratio 0.9 RATIO (0.9-2.4); AST(SGOT) 6 U/L (15-37); Alanine Aminotransfer ALT/SGPT 18 U/L (16-61); Alkaline Phosphatase 66 U/L (45-117); Anion Gap 7 (5-15); BUN 34 mg/dL (7-18); BUN/Creat Ratio 22.8 RATIO (10-20); Calcium,Total 8.2 mg/dL (8.5-10.1); Chloride 109 mmol/L (98-107); Creatinine, Serum 1.49 mg/dL (0.70-1.30); EST Glomerular Filtration Rate 49 mL/min (>60); Est Glom Filt Rate - Afr Amer 60 mL/min (>60); Estimated Creatinine Clearance 45.47 ml/min; Globulin 3.3 g/dL (2.2-4.2); Glucose 169 mg/dL (74-106); Magnesium 1.9 mg/dL (1.6-2.6); Phosphorus 2.1 mg/dL (2.5-4.9); Potassium 3.5 mmol/L (3.5-5.1); Protein, Total 6.3 g/dL (6.4-8.2); Sodium Level 143 mmol/L (136-145)
[2017-10-08 18:59] LABS: Lactic Acid 2.1 mmol/L (0.4-2.0)
[2017-10-08 19:04] LABS: Anisocytosis 1+; Hypochromasia 1+; Platelet Estimate MOD DEC (ADEQ)
[2017-10-08 19:06] LABS: Bacteria 0 SEEN /hpf (None Seen); Mucous, Urine 0 SEEN /hpf (<or=2+); Squamous Epithelial Cells - UA 0 SEEN /hpf (0-5)
[2017-10-08 19:07] LABS: Color, Urine Yellow (Yellow); Glucose, Dipstick Normal (Normal); Ketone-Dipstick Negative (Negative); Leukocyte Esterase-Dipstick Negative /ul (Negative); Nitrite-Dipstick Negative (Negative); Occult Blood-Urine 10 /ul (Negative); Protein-Dipstick 30 mg/dl (Negative); Urine Bilirubin Dipstick Negative (Negative); Urine Clarity Clear (Clear); Urine Urobilinogen Normal (Normal)
[2017-10-08 19:13] LABS: Red Blood Cells-Urine 0-5 SEEN /hpf (0-5); White Blood Cells 10-25 SEEN /hpf (0-5)
[2017-10-08 19:30] VITALS: BP 146/78; PULSE 85; RESP 19; O2SAT 95
--- NOTE | 2017-10-08 19:50 | ED.RN ---
SPOKE WITH TANVI FROM THE [facility] TRANSFER LINE. GAVE HER THE PATIENT'S INFORMATION FOR A TRANSFER. SHE STATED SHE WILL CONSULT WITH HER DOCTOR AND GIVE US A CALL BACK.
[2017-10-08 20:00] VITALS: BP 154/63; PULSE 84; RESP 20; O2SAT 94
[2017-10-08 21:23] VITALS: BP 160/73; PULSE 83; RESP 19; TEMP 37.1; O2SAT 93
[2017-10-08 22:23] LABS: Reflex Lactate? Y
[2017-10-09 02:00] LABS: Differential Comment SCANNED
[2017-10-10 10:06] LABS: Pathologist Review Reviewed
== END 2017-10-08 21:42 | disposition short-term general hospital (02) ==
PROVIDERS: Emergency Provider Emergency Medicine; Family Provider Student in an Organized Health Care Education/Training Program; PCP Student in an Organized Health Care Education/Training Program
DX: D70.9 Neutropenia, unspecified (principal); R50.81 Fever presenting with conditions classified elsewhere; A41.9 Sepsis, unspecified organism; R65.20 Severe sepsis without septic shock; N39.0 Urinary tract infection, site not specified; J40 Bronchitis, not specified as acute or chronic; I12.9 Hypertensive chronic kidney disease with stage 1 through stage 4 chronic kidney disease, or unspecified chronic kidney disease; N18.9 Chronic kidney disease, unspecified; C85.90 Non-Hodgkin lymphoma, unspecified, unspecified site; I26.99 Other pulmonary embolism without acute cor pulmonale; Z85.51 Personal history of malignant neoplasm of bladder; Z79.01 Long term (current) use of anticoagulants; Z79.899 Other long term (current) drug therapy
CPT/HCPCS: 71046; 80053; 81001; 83605; 83735; 84100; 85025; 85610; 85730; 87040; 87086; 87088; 93005; 96365; 96366; 96367; 99284; J7030; J7040; A4216

== ENCOUNTER 2017-11-30 16:37 | Emergency (ER) | payer MEDICARE, BC, SELFPAY ==
[2017-11-30 16:38] VITALS: BP 145/74; PULSE 72; RESP 16; TEMP 36.7; O2SAT 97; BMI 36.9
--- NOTE | 2017-11-30 17:06 | ED.VISSUMM ---
- ER Visit Summary Date of Service: 11/30/17 Chief Complaint: [Bilateral lower extremity instability.] History of Present Illness: The patient is a 72 M [who presents the emergency department with weakness in his knees bilaterally. He went to step off a step and felt like his knees were going forward and they gave out and he fell and was unable to get back up. He contains of some mild pain in his knees but more that they will not bear any weight. He does have a history of lymphoma and gets chemotherapy his last chemo was 2 weeks ago. 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 There is been no injury. He has pain periodically in his right knee. He has a stent in the vein of his left lower extremity. He has had no new weakness back pain fever or other abnormality. He is being treated for anemia. As of Tuesday his hemoglobin had increased] Physical Examination: [] WN WD NAD PERRL EOMI adjunctive a pink MMM NECK supple and nontender, no masses RRR no murmur rub or gallop, no peripheral edema, symmetric radial pulses CTAB no respiratory distress ABDOMEN is soft and nontender, normal bowel sounds, no distension, no rebound or guarding Emanation of the lower extremities reveals 5 out of 5 strength with EHL dorsiflexion knee extension and hip flexion bilaterally. There is no tenderness to palpation swelling or ecchymosis of the right knee. He has strong dorsalis pedis on the right. He has no pain with medial or lateral stress of the knee. He is able to fully extend. Examination of the left knee reveals mild swelling of the leg diffusely. He has strong dorsalis pedis pulse. He is able to extend. He is mild tenderness to palpation over the patella with no deformity or bruising. SKIN is warm and dry no rashes Alert and Oriented x3, CN II-XII in tact, no motor or sensory deficits, gait normal No lymphadenopathy Test Results: [] Emergency Department Course and Treatment: [Greening labs show anemia however it is improved. X-rays of the knees bilaterally show no acute process. I think this likely represents bilateral ligamentous instability probably from debility. He has no evidence of muscle weakness or neuropathy. He was able to ambulate in the emergency department with a walker without difficulty. Elfego wraps will be placed around his knees bilaterally for support. He will use a walker at home. He does not have any steps. He does live alone and we did discuss being very very careful when standing and walking given that he is also on resume Xarelto. His son lives nearby and will check on him frequently. I did discuss the possibility of a life alert or some sort of alert device.] Treatment Plan: [] Disposition: [Discharge] Impression: [Lateral knee instability] This note was generated with [employer] dictation software. It may contain incorrect words, spelling, and punctuation that were not noted in review of the chart prior to signing ED Disposition - Plan for ED Patient: Chief Complaint: Lower Extremity Injury Referrals: Martin Nunez DO [Primary Care Provider] -
--- NOTE | 2017-11-30 17:16 | ED.RN ---
PT ASSISTED UP TO SIDE OF BED WITH WALKER, PT WAS STANDING AND APPLE,TANK PUMPER AND THIS NURSE HELD ONTO PT WHEN PT WAS HOLDING WALKER, PT'S KNEES GAVE OUT, PT DID NOT FALL, THIS NURSE ASSISTED PT WITH URINAL, PT VOIDED AND BACK TO BED AT THIS TIME.
--- NOTE | 2017-11-30 17:35 | RAD_ITS ---
STUDY: X-RAY - RIGHT KNEE REASON FOR EXAM: Male, 72 years old. Fall TECHNIQUE: 4 view(s) of the knee. COMPARISON: None. FINDINGS: There is no evidence of fracture or dislocation. There are mild degenerative changes. There are no radiodense foreign bodies. RAD/Knee 4 or More Views IMPRESSION: No fracture or dislocation in the right knee. Mild degenerative change. Electronically Signed: Jon Trent, at 18:45 EDT Tel , Service support ,
--- NOTE | 2017-11-30 17:35 | RAD_ITS ---
STUDY: X-RAY - LEFT KNEE REASON FOR EXAM: Male, 72 years old. Pain TECHNIQUE: 4 view(s) of the knee. COMPARISON: None. FINDINGS: There is no evidence of fracture or dislocation. There are mild degenerative changes. There are no radiodense foreign bodies. RAD/Knee 4 or More Views IMPRESSION: No fracture or dislocation in the left knee. Mild degenerative change. Electronically Signed: Jon Trent, at 18:36 EDT Tel , Service support ,
[2017-11-30 18:17] LABS: Absolute Lymphocyte Count 1.42 X10^3/ul (0.83-4.51); Absolute Neutrophil Count 7.6 X10^3/uL (2.0-7.7); Basophil# 0.01 X10^3/uL; Basophil% 0.1 % (0-1); Hematocrit 24.9 % (40-54); Hemoglobin 7.8 g/dl (13.0-16.5); Lymphocyte # 1.42 X10^3/ul (4.0); Lymphocyte % 14.9 % (19-41); Mean Corp Hgb Conc 31.3 g/gl (32-36); Mean Corpuscular Hgb 29.7 pg (27.0-32.0); Mean Corpuscular Volume 94.7 fL (80-94); Mean Platelet Vol. 9.8 fl (6.2-12.0); Monocyte# 0.42 X10^3/uL; Monocyte% 4.4 % (0-10); Neutrophil # 7.63 X10^3/uL (2.7-7.7); Platelet Count 200 K/mm3 (150-450); RBC Distribution Width SD 65.2 fl (35.1-43.9); Red Blood Count 2.63 M/mm3 (4.6-6.2); White Blood Count 9.5 K/mm3 (4.4-11.0)
[2017-11-30 18:18] LABS: Differential Indicated SCAN CRITERIA MET; POSITIVE COUNT NO; POSITIVE DIFFERENTIAL NO; POSITIVE MORPHOLOGY YES
[2017-11-30 18:21] LABS: International Normalized Ratio 1.7; Prothrombin Time (Protime)PT. 20.4 SECONDS (11.7-14.9)
[2017-11-30 18:25] LABS: Anion Gap 6 (5-15); BUN 23 mg/dL (7-18); Calcium,Total 8.5 mg/dL (8.5-10.1); Chloride 110 mmol/L (98-107); Creatinine, Serum 1.53 mg/dL (0.70-1.30); EST Glomerular Filtration Rate 48 mL/min (>60); Est Glom Filt Rate - Afr Amer 58 mL/min (>60); Estimated Creatinine Clearance 44.28 ml/min; Glucose 107 mg/dL (74-106); Potassium 3.7 mmol/L (3.5-5.1); Sodium Level 142 mmol/L (136-145)
--- NOTE | 2017-11-30 19:28 | ED.DEP ---
ED Disposition - Plan for ED Patient: Chief Complaint: Lower Extremity Injury Instructions: ED Knee Pain [facility]O Referrals: Martin Nunez DO [Primary Care Provider] - 3-5 Days
[2017-11-30 20:01] VITALS: BP 150/70; PULSE 80; RESP 14; O2SAT 99
== END 2017-11-30 20:07 | disposition home or self-care (01) ==
LOC: ED 17:17
PROVIDERS: Emergency Provider Emergency Medicine; Family Provider Student in an Organized Health Care Education/Training Program; PCP Student in an Organized Health Care Education/Training Program
DX: M23.52 Chronic instability of knee, left knee (principal); M23.51 Chronic instability of knee, right knee; C85.90 Non-Hodgkin lymphoma, unspecified, unspecified site; Z86.718 Personal history of other venous thrombosis and embolism; Z79.01 Long term (current) use of anticoagulants; Z79.899 Other long term (current) drug therapy
CPT/HCPCS: 36591; 73564; 80048; 85025; 85610; 99282; A4216

== ENCOUNTER 2018-06-30 09:06 | Emergency (ER) | payer MEDICARE, BC, SELFPAY ==
[2018-06-30 09:07] VITALS: BP 211/100; PULSE 86; RESP 20; TEMP 36.6; O2SAT 97; BMI 37.9
--- NOTE | 2018-06-30 09:27 | NM_ITS ---
CLINICAL: 72-year-old male with reported history of gastrointestinal hemorrhage. LABELED BLOOD POOL GASTROINTESTINAL BLEEDING STUDY COMPARISON: CT of the abdomen-pelvis report 06/22/2009 FINDINGS: Following the intravenous administration of 26.4 mCi of 99m Tc Ultratag labeled RBCs, image acquisitions of the anterior-abdomen and pelvis for a total of 60 minutes reveal: 1. A focus of radiopharmaceutical concentration is identified in the right hemipelvis caudal to the level of the aortic bifurcation initially defined at approximately 23 minutes following tracer injection which remains unchanged in positional distribution during the remaining 37 minutes of image acquisition. 2. Physiologic distribution of the radiotracer is defined in the cardiac, hepatic, splenic and major vascular blood pool. NM/GI Bleed Scan IMPRESSION: 1. NEGATIVE 99m Tc ULTRATAG LABELED BLOOD POOL GASTROINTESTINAL BLEEDING EXAMINATION. 2. There is no evidence of abnormal increased radiopharmaceutical concentration indicative of acute gastrointestinal hemorrhage on the current evaluation. The static, unchanging focus of increased tracer uptake noted in the right hemipelvis likely is attributed to labeled urine associated with the apparent urinary diversion consistent with the patient's history of cystectomy. Electronically Signed: Pipe Zamora DO at 12:31 EST Tel , Service support ,
--- NOTE | 2018-06-30 09:29 | ED.VISSUMM ---
- ER Visit Summary Date of Service: 06/30/18 Chief Complaint: Rectal bleeding History of Present Illness: The patient is a 72 M with history of colon lymphoma status post chemotherapy and in remission as per last PET scan a few months ago and colonoscopy about 2 months ago. He is on Xarelto for PEs, he started having rectal bleeding last night. He had 3 episodes of bright red blood per rectum not associated with stool. He has not had a bowel movement since this started. There is no abdominal pain. He does not feel lightheaded when he stands up. He has no fever or chills. He has no urinary symptoms. Physical Examination: Not appear in acute distress. Slightly dry mucous membranes, no obvious facial deformity No C-spine tenderness supple neck. Regular rate and rhythm without any obvious murmurs Clear lungs bilaterally speaking in full sentences without any obvious respiratory distress Abdomen soft and nontender no guarding or rebound Rectal exam shows no active bleeding but there is bright red blood present on digital examination. No hemorrhoids internally or externally. Moves all extremities without any difficulty or pain. Skin does not show any obvious rashes or lesions, no trauma. Alert oriented ?3 with no gross focal deficit Emergency Department Course and Treatment: Discussed patient with Dr. De La Cruz. Patient had a bleeding scan and that was negative. Hemoglobin was normal. Patient is not orthostatically is walking around without feeling lightheaded. I believe he is stable for discharge, we will hold his Xarelto for the next 3 days and then he will follow-up with his PCP. If he gets bleeding again he needs to return right away. He has been stable in the emergency department for the last 4.5 hours. Disposition discharge stable condition Impression: Lower GI bleed-stable This note was generated with [employer] dictation software. It may contain incorrect words, spelling, and punctuation that were not noted in review of the chart prior to signing ED Disposition - Plan for ED Patient: Chief Complaint: GI Bleed Referrals: Martin Nunez DO [Primary Care Provider] -
--- NOTE | 2018-06-30 09:32 | ED.DCSUM_ITS ---
- ER Visit Summary Date of Service: 06/30/18 Chief Complaint: Rectal bleeding History of Present Illness: The patient is a 72 M with history of colon lymphoma status post chemotherapy and in remission as per last PET scan a few months ago and colonoscopy about 2 months ago. He is on Xarelto for PEs, he started having rectal bleeding last night. He had 3 episodes of bright red blood per rectum not associated with stool. He has not had a bowel movement since this started. There is no abdominal pain. He does not feel lightheaded when he stands up. He has no fever or chills. He has no urinary symptoms. Physical Examination: Not appear in acute distress. Slightly dry mucous membranes, no obvious facial deformity No C-spine tenderness supple neck. Regular rate and rhythm without any obvious murmurs Clear lungs bilaterally speaking in full sentences without any obvious res piratory distress Abdomen soft and nontender no guarding or rebound Rectal exam shows no active bleeding but there is bright red blood present on digital examination. No hemorrhoids internally or externally. Moves all extremities without any difficulty or pain. Skin does not show any obvious rashes or lesions, no trauma. Alert oriented ?3 with no gross focal deficit Emergency Department Course and Treatment: Discussed patient with Dr. De La Cruz. Patient had a bleeding scan and that was negative. Hemoglobin was normal. Patient is not orthostatically is walking around without feeling lightheaded. I believe he is stable for discharge, we will hold his Xarelto for the next 3 days and then he will follow-up with his PCP. If he gets bleeding again he needs to return right away. He has been stable in the emergency department for the last 4.5 hours. Disposition discharge stable condition Impression: Lower GI bleed-stable This note was generated with [employer] dictation software. It may contain incorrect words, spelling, and punctuation that were not noted in review of the chart prior to signing ED Disposition - Plan for ED Patient: Chief Complaint: GI Bleed Referrals: Martin Nunez DO [Primary Care Provider] -
[2018-06-30 09:55] LABS: Absolute Lymphocyte Count 0.94 X10^3/ul (0.83-4.51); Absolute Neutrophil Count 4.7 X10^3/uL (2.0-7.7); Basophil# 0.01 X10^3/uL; Basophil% 0.2 % (0-1); Eosinophil# 0.19 X10^3/uL; Eosinophils% 3.1 % (0-5); Hematocrit 39.7 % (40-54); Hemoglobin 12.2 g/dl (13.0-16.5); Lymphocyte # 0.94 X10^3/ul (4.0); Lymphocyte % 15.5 % (19-41); Mean Corp Hgb Conc 30.7 g/gl (32-36); Mean Corpuscular Hgb 27.1 pg (27.0-32.0); Monocyte# 0.28 X10^3/uL; Monocyte% 4.6 % (0-10); Neutrophil # 4.65 X10^3/uL (2.7-7.7); Neutrophil % 76.4 % (47-70); Platelet Count 218 K/mm3 (150-450); RBC Distribution Width CV 16.9 % (11.6-14.6); RBC Distribution Width SD 53.1 fl (35.1-43.9); Red Blood Count 4.51 M/mm3 (4.6-6.2); White Blood Count 6.1 K/mm3 (4.4-11.0)
[2018-06-30 09:57] LABS: POSITIVE COUNT NO; POSITIVE DIFFERENTIAL NO; POSITIVE MORPHOLOGY NO
[2018-06-30 10:03] LABS: ALB/GLOB Ratio 0.9 RATIO (0.9-2.4); AST(SGOT) 17 U/L (15-37); Alanine Aminotransfer ALT/SGPT 27 U/L (16-61); Albumin, Serum 3.5 g/dL (3.2-5.0); Alkaline Phosphatase 66 U/L (45-117); Anion Gap 8 (5-15); BUN 24 mg/dL (7-18); BUN/Creat Ratio 18.6 RATIO (10-20); Calcium,Total 8.4 mg/dL (8.5-10.1); Chloride 112 mmol/L (98-107); Creatinine, Serum 1.29 mg/dL (0.70-1.30); EST Glomerular Filtration Rate 58 mL/min (>60); Est Glom Filt Rate - Afr Amer 70 mL/min (>60); Estimated Creatinine Clearance 52.52 ml/min; Globulin 3.7 g/dL (2.2-4.2); Glucose 127 mg/dL (74-106); Potassium 3.7 mmol/L (3.5-5.1); Protein, Total 7.2 g/dL (6.4-8.2); Sodium Level 145 mmol/L (136-145)
--- NOTE | 2018-06-30 13:44 | ED.DEP ---
ED Disposition - Plan for ED Patient: Disposition: Home or Assisted Living Chief Complaint: GI Bleed Instructions: ED Hematochezia Stable Referrals: Martin Nunez DO [Primary Care Provider] - 3-5 Days Additional Instructions: Hold your Xarelto for 3 days after which follow-up with your doctor. If you have any further bleeding return to the ED.
--- NOTE | 2018-06-30 14:20 | PCM.CONS.GEN ---
Reason for Consult Date of Consultation: 06/30/18 Reason for Consultation: lower GI bleed History of Present Illness: The patient is a 72 year old M who noted the onset of bright red blood per rectum and presented to [facility] emergency department. The patient noted a degree of left lower quadrant discomfort. He noted no significant pain. He noted no nausea or vomiting. He noted no melena proceeding the bleeding. the patient has a complex medical history. He has a previous history of bladder cancer for which she has a neobladder built from small bowel. He had a distant history of lower extremity DVTs with a pulmonary embolism. He developed heparin-induced thrombocytopenia when he was given heparin and Lovenox in the past. 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 The patient received 6 cycles of chemotherapy and has been in remission since. The patient had a follow-up colonoscopy performed on May 19, [address] Kerwin Jha at [facility]. There were no signs of recurrent tumor and he was found to have diverticulosis without other abnormalities. additionally, the patient has a lower extremity DVT and is currently on Xarelto. The patient had laboratory studies performed at [facility] on June 28 including a complete blood count and a comprehensive metabolic panel. hemoglobin was 13.4 on June 28. I was contacted from the ER by Dr. Falcon. I recommended a bleeding scan given his recent unremarkable colonoscopy and clinical likelihood of this being a lower GI bleed with a history of diverticulosis. No hemorrhoids were noted on rectal exam by Dr. Falcon. hemoglobin today was 12.2. bleeding scan demonstrated no active bleeding. Past Medical History Allergies aspirin Allergy (Verified 06/30/18 09:09) Other enoxaparin [From Lovenox] Allergy (Verified 06/30/18 09:09) Other heparin Allergy (Verified 06/30/18 09:09) Other Home Medications: Ambulatory Orders Medication Instructions Recorded Amlodipine [Norvasc] 5 mg PO DAILY 04/24/17 Carvedilol [Coreg (Beta Rick)] 6.25 mg PO DAILY 04/24/17 Lisinopril [Zestril] 20 mg PO DAILY 04/24/17 Rivaroxaban [Xarelto] 20 mg PO DAILY 08/19/17 Senna [Senokot] 1 tablet PO QHS 06/30/18 Senna [Senokot] 2 tablet PO DAILY 06/30/18 Vitamin B Complex 1 each PO DAILY 06/30/18 Surgical History: cataract, tonsillectomy, - - Bladder removal due to bladder cancer with reconstruction of a bladder Psychiatric History: No pertinent psych hx Smoking Status: Former smoker - *Family History Maternal History Items: No pertinent history Paternal History Items: No pertinent history Review of Systems Constitutional: Denies: Chills, Fever, Weight Change HEENT: Denies: Head Aches, Sinus Congestion, Sinus Drainage Cardiovascular: Denies: Chest Pain, Palpitations Respiratory: Denies: Cough, Shortness of breath at rest, Sputum production Gastrointestinal: Denies: Abdominal Pain, Nausea, Vomiting Genitourinary: Denies: Dysuria Musculoskeletal: Denies: Joint Pain, Joint Tenderness Skin: Denies: Rash, Wounds Neurological: Denies: Numbness, Tingling, Focal weakness Psychiatric: Denies: Anxiety, Depression, Homicidal Ideations, Suicidal Ideations Hematologic/ Lymphatic: Denies: Easy Bruising, Easy Bleeding - Physical Exam General: Alert, Oriented x3, Cooperative Lungs: Clear to auscultation, Normal air movement Cardiovascular: Regular rate, No murmurs Abdomen: Bowel Sounds Present, Soft, Non Tender Vital Signs Temp Pulse Resp BP Pulse Ox 97.9 F 86 20 H 211/100 H 97 06/30/18 09:07 06/30/18 09:07 06/30/18 09:07 06/30/18 09:07 06/30/18 09:07 Oxygen Delivery Method Room Air Weight: 116.573 kg Body Mass Index (BMI) 37.9 Microbiology Past 72 Hours 06/30/18 09:30 Stool Occult Blood (ROSEMARY) - Final Stool Occult Blood Positive Laboratory Tests Past 24 Hrs 06/30/18 06/30/18 09:35 09:35 WBC 6.1 RBC 4.51 L Hgb 12.2 L Hct 39.7 L MCV 88.0 MCH 27.1 MCHC 30.7 L RDW 16.9 H RDW Differential 53.1 H Plt Count 218 MPV 9.0 Immature Gran % (Auto) 0.200 Neut % (Auto) 76.4 H Lymph % (Auto) 15.5 L Laurel % (Auto) 4.6 Eos % (Auto) 3.1 Baso % (Auto) 0.2 Absolute Neuts (auto) 4.7 Absolute Lymphs (auto) 0.94 Total Counted Not Reportable Sodium 145 Potassium 3.7 Chloride 112 H Carbon Dioxide 25.0 Anion Gap 8 BUN 24 H Creatinine 1.29 Estim Creat Clear Calc 52.52 Est GFR (MDRD) Af Amer 70 Est GFR (MDRD) Non-Af 58 L BUN/Creatinine Ratio 18.6 Glucose 127 H Calcium 8.4 L Total Bilirubin 0.60 AST 17 ALT 27 Alkaline Phosphatase 66 Total Protein 7.2 Albumin 3.5 Globulin 3.7 Albumin/Globulin Ratio 0.9 Assessment/Plan All Active Problems Pancytopenia (Acute) Neutropenic fever (Acute) Lymphoma (Acute) Left upper chest discomfort (Acute) Shortness of breath (Acute) Likely distal GI bleed - ? diverticular or hemorrhoidal bleed the patient has had no further bleeding since presenting to the emergency department. his hemoglobin is stable and is not orthostatic. I'm comfortable with him being discharged. If he has further active bleeding I would recommend that he follow up with the emergency department and then I would perform unprepped lower endoscopy. Otherwise, this is likely either diverticular or hemorrhoidal bleed. I be happy to see the patient my office and perform either anoscopy or a flexible sigmoidoscopy to assess other issues as necessary
[2018-06-30 14:21] VITALS: BP 172/90; PULSE 80; RESP 16; O2SAT 95
== END 2018-06-30 14:22 | disposition home or self-care (01) ==
PROVIDERS: Emergency Provider Emergency Medicine; Family Provider Student in an Organized Health Care Education/Training Program; PCP Student in an Organized Health Care Education/Training Program
DX: K62.5 Hemorrhage of anus and rectum (principal); Z86.711 Personal history of pulmonary embolism; Z86.718 Personal history of other venous thrombosis and embolism; Z79.01 Long term (current) use of anticoagulants; Z79.899 Other long term (current) drug therapy
CPT/HCPCS: 36591; 78278; 80053; 82274; 85025; 96360; 96361; 99282; A9560; J7030; J7040; A4216

== ENCOUNTER 2019-09-25 10:25 | Inpatient (IN) | payer MEDICARE, BC, SELFPAY ==
[2019-09-25] VITALS (8 sets, daily range): BP systolic 149–214; BP diastolic 70–91; PULSE 62–80; RESP 14–20; TEMP 35.9–36.7; O2SAT 95–98; BMI 38.8; BMI 38.3; BMI 38.9
--- NOTE | 2019-09-25 11:02 | CT_ITS ---
STUDY: CT ABDOMEN AND PELVIS WITHOUT CONTRAST REASON FOR EXAM: Male, 74 years old. RECTAL BLEEDING TODAY HX BLADDER/COLON CA RADIATION DOSAGE (If Supplied By Facility): CTDIvol = ( 23.25 ) mGy, DLP = ( 1278.02 ) mGycm TECHNIQUE: Transaxial images were obtained from the dome of the diaphragm to the symphysis pubis without oral contrast, and without intravenous contrast. Sagittal and coronal images were reconstructed. Individualized dose optimization techniques were used for this CT. COMPARISON: None. FINDINGS: The visualized lung bases are unremarkable. The visualized portions of the heart are within normal limits. Normal liver. Normal gallbladder and extrahepatic biliary system. Normal spleen. Normal pancreas. Bilateral adrenal gland hyperplasia Severe right renal atrophy with replacement of the right renal parenchyma with severe hydronephrosis. There is severe ureteral dilatation proximally with a near normal appearance at the anastomosis with the neobladder. Multiple small left renal cyst. 8 mm nonobstructing stone lower pole the left kidney. No hydronephrosis, ureteral stone, or ureteral dilatation. There is a small hiatal hernia. Normal small intestine. There are multiple colonic diverticula consistent with diverticulosis. The appendix is visualized and appears normal. There is diffuse atherosclerotic calcification of the abdominal aorta, without a demonstrated aneurysm. Normal inferior vena cava. Normal retroperitoneum. Status post cystectomy with creation of a neobladder. Normal abdominal wall. Normal osseous structures. CT/Abdomen/Pelvis without Cont IMPRESSION: Sigmoid diverticulosis without diverticulitis. Electronically Signed: Pipe Adam MD at 12:42 EDT Tel , Service support ,
--- NOTE | 2019-09-25 11:14 | ED.VISSUMM ---
- ER Visit Summary Date of Service: 09/25/19 Chief Complaint: Rectal bleeding History of Present Illness: The patient is a 74 M who presents with rectal bleeding that began today. Patient states he has been having bright red blood from his rectum. Patient admits to some mild left lower quadrant abdominal pain. Patient describes his pain is dull. Patient states nothing makes it better or worse. Patient denies any nausea or vomiting. Patient denies any dysuria or hematuria. Patient denies any fevers or chills. Patient denies any chest pain or shortness of breath. Patient denies any back pain. Physical Examination: Vital signs are stable except for an elevated blood pressure of 214/91. Patient is afebrile. Patient is in no acute distress. Oral mucosa is pink and moist. Oropharynx is clear. Neck is supple. Trachea is midline. There is no JVD. Heart was regular rate and rhythm. Lungs are clear and equal bilaterally. Abdomen is soft. Bowel sounds are normal. There is mild left lower quadrant tenderness. There is no rebound or guarding noted. Cranial nerves II through XII are intact. There are no focal motor or sensory deficits. Extremities are intact. There is no calf tenderness or edema. Test Results: CBC showed a hemoglobin of 11.4. This was slightly decreased from previous result of 12.2 from 06/30/2018. Comprehensive metabolic profile showed elevated creatinine of 2.67 which was increased from previous result on 06/30/2018. BUN was also elevated at 52. Urinalysis shows leukocyte esterase of 500 with 5-10 white blood cells and 1+ bacteria. Orthostatics were negative. CT scan of the abdomen and pelvis was obtained. There is diverticulosis but no diverticulitis. This was interpreted by the radiologist and reviewed by myself. Stool was sent for Hemoccult but came back grossly positive and the specimen was rejected. Emergency Department Course and Treatment: Patient was given IV fluids. Patient states he did not take his morning dose of his Coreg today. Patient was allowed to take this. Patient was feeling better on reevaluation. Patient states he feels like he is still having rectal bleeding. Given the elevation of his creatinine, urinary tract infection, and active bleeding, I recommended admission to the hospital. Patient is agreeable with this. He was discussed with the hospitalist. He will admit the patient to the hospital. Disposition: Admit to hospital Impression: 1. Lower gastrointestinal bleeding 2. Acute kidney injury This note was generated with [employer] dictation software. It may contain incorrect words, spelling, and punctuation that were not noted in review of the chart prior to signing ED Disposition - Plan for ED Patient: Disposition: Acute Care Hospital [facility] Diagnosis: Lower gastrointestinal bleeding, Acute kidney injury Referrals: Martin Nunez DO [Primary Care Provider] -
[2019-09-25 11:46] LABS: Absolute Lymphocyte Count 0.75 X10^3/uL (0.83-4.51); Absolute Neutrophil Count 4.3 X10^3/uL (2.0-7.7); Basophil# 0.03 X10^3/uL; Basophil% 0.5 % (0-1); Eosinophils% 1.8 % (0-5); Hematocrit 36.2 % (40-54); Hemoglobin 11.4 g/dL (13.0-16.5); Lymphocyte # 0.75 X10^3/ul (4.0); Lymphocyte % 13.2 % (19-41); Mean Corp Hgb Conc 31.5 g/dL (32-36); Mean Corpuscular Hgb 26.6 pg (27.0-32.0); Mean Corpuscular Volume 84.6 fL (80-94); Mean Platelet Vol. 8.9 fl (6.2-12.0); Monocyte# 0.46 X10^3/uL; Monocyte% 8.1 % (0-10); NRBC Flagged by Analyzer 0 % (0-5); Neutrophil # 4.34 X10^3/uL (2.7-7.7); Neutrophil % 76.2 % (47-70); POSITIVE MORPHOLOGY YES; Platelet Count 180 K/mm3 (150-450); RBC Distribution Width CV 21.7 % (11.6-14.6); RBC Distribution Width SD 66.2 fl (35.1-43.9); Red Blood Count 4.28 M/mm3 (4.6-6.2); White Blood Count 5.7 K/mm3 (4.4-11.0)
[2019-09-25] MEDS: 0.9% Normal Saline 1,000 ML 1000 ML IV (11:58)
[2019-09-25 12:08] LABS: AST(SGOT) 12 U/L (15-37); Alanine Aminotransfer ALT/SGPT 14 U/L (16-61); Albumin, Serum 3.4 g/dL (3.2-5.0); Alkaline Phosphatase 71 U/L (45-117); Anion Gap 6 (5-15); Anisocytosis 2+; BUN 52 mg/dL (7-18); BUN/Creat Ratio 19.5 RATIO (10-20); Calcium,Total 8.9 mg/dL (8.5-10.1); Chloride 116 mmol/L (98-107); Creatinine, Serum 2.67 mg/dL (0.70-1.30); Differential Comment SCANNED; Differential Indicated SCAN CRITERIA MET; EST Glomerular Filtration Rate 25 mL/min (>60); Est Glom Filt Rate - Afr Amer 30 mL/min (>60); Estimated Creatinine Clearance 24.64 ml/min; Globulin 3.4 g/dL (2.2-4.2); Glucose 128 mg/dL (74-106); Lipase 94 U/L (73-393); Macrocytosis 1+; Microcytosis 1+; Potassium 4.1 mmol/L (3.5-5.1); Protein, Total 6.8 g/dL (6.4-8.2); Sodium Level 145 mmol/L (136-145)
[2019-09-25 12:17] LABS: Mucous, Urine 0 SEEN /hpf (<or=2+); Squamous Epithelial Cells - UA 0 SEEN /hpf (0-5)
[2019-09-25 12:30] LABS: Color, Urine Straw (Yellow); Glucose, Dipstick Normal (Normal); Ketone-Dipstick Negative (Negative); Leukocyte Esterase-Dipstick 500 /ul (Negative); Nitrite-Dipstick Negative (Negative); Occult Blood-Urine 10 /ul (Negative); Protein-Dipstick 30 mg/dl (Negative); Specific Gravity, Urine 1.015 (1.002-1.030); Urine Bilirubin Dipstick Negative (Negative); Urine Clarity Sl. Cloudy (Clear); Urine Urobilinogen Normal (Normal)
[2019-09-25 12:39] LABS: Red Blood Cells-Urine 0-5 SEEN /hpf (0-5); White Blood Cells 5-10 SEEN /hpf (0-5)
[2019-09-25 12:45] LABS: Bacteria 1+ /hpf (None Seen)
--- NOTE | 2019-09-25 13:35 | NURSING ---
MED SURG KIMBERLYERI LOWER GASTROINTESTINAL BLEEDING, ACUTE KIDNEY INJURY
--- NOTE | 2019-09-25 13:52 | HP.PCM_ITS ---
History of Present Illness Date of Admission: 09/25/19 Chief Complaint: rectal bleeding The patient is a 74 year old M sent his normal state of health up until today when he had blood in the toilet bowl. He suspects he saw some clots. A little bit of abdominal cramps in the left lower quadrant. Patient is never had a GI bleed before. Presented to the emergency room and had a CAT scan that showed diverticulosis without diverticulitis. Plan is to bring the patient in and further evaluate and monitor for the anemia. Concerned patient may have acute kidney injury as his creatinine is 2.67 his last creatinine was 1.29 back in June 30, 2018. Patient states that he has been eating and drinking well. [] Past Medical History Medical History: Medical History (Last Updated 09/25/19 @ 13:[address] Ed Dinero DO) Anemia D64.9 Bladder cancer C67.9 Lymphoma C85.90 VTE (venous thromboembolism) I82.90 HTN (hypertension) I10 Allergies aspirin Allergy (Verified 09/25/19 10:29) Other enoxaparin [From Lovenox] Allergy (Verified 09/25/19 10:29) Other heparin Allergy (Verified 09/25/19 10:29) Other Home Medications: Ambulatory Orders Medication Instructions Recorded Amlodipine [Norvasc] 5 mg PO DAILY 04/24/17 Carvedilol [Coreg (Beta Rick)] 6.25 mg PO DAILY 04/24/17 Lisinopril [Zestril] 20 mg PO DAILY 04/24/17 Rivaroxaban [Xarelto] 20 mg PO DAILY 08/19/17 Vitamin B Complex 1 each PO DAILY 06/30/18 Ferrous Sulfate [Iron] 325 mg PO TIDCM 09/25/19 Polyethylene Glycol 3350 [Miralax] 17 gm PO DAILY 09/25/19 Surgical History: Surgical History (Last Updated 09/25/19 @ 13:[address] Ed Dinero DO) H/O total cystectomy Z90.6 Surgical History: cataract, tonsillectomy, - - Bladder removal due to bladder cancer with reconstruction of a bladder Psychiatric History: No pertinent psych hx Smoking Status: Former smoker Tobacco Use: Non-smoker Alcohol: None Drugs: None - *Family History Maternal History Items: No pertinent history, - - no cancer Paternal History Items: No pertinent history Review of Systems Constitutional: Denies: Anorexia, Chills, Fever, Night Sweats Eyes: Denies: Blurred vision, Double vision HEENT: Denies: Head Aches, Sinus Congestion, Sinus Drainage Cardiovascular: Denies: Chest Pain, Palpitations Respiratory: Denies: Cough, Shortness of breath at rest, Sputum production Gastrointestinal: Reports: Abdominal Pain, Hematochezia. Denies: Hematemesis, Melena Genitourinary: Denies: Dysuria, Hematuria Musculoskeletal: Denies: Joint Pain, Joint Tenderness Skin: Denies: Rash, Wounds Neurological: Denies: Numbness, Tingling, Focal weakness Psychiatric: Denies: Anxiety, Depression Hematologic/ Lymphatic: Reports: Hx of blood clot. Denies: Easy Bruising, Easy Bleeding Comment: All review of systems were negative except as mentioned above in the history of present illness and the other review of systems. VTE Information - Inpt Only VTE Present on Admission: Yes VTE Mechan Device Prophylaxis: SCD's VTE Pharm Prophylaxis ordered?: No Reason prophylaxis not ordered:: Medical Contraindication Patient Problems: Active and Suspected Problems Lower gastrointestinal bleeding (Acute) Acute kidney injury (Acute) - Physical Exam Vitals/I&O's: Vital Signs Temp Pulse Resp BP Pulse Ox 36.7 C 62 20 H 166/70 H 96 09/25/19 10:26 09/25/19 12:44 09/25/19 12:25 09/25/19 12:44 09/25/19 12:25 Oxygen Delivery Method Room Air Weight: 119.4 kg Body Mass Index (BMI) 38.8 General: Alert, Cooperative, No apparent distress HEENT: Atraumatic, PERRLA, EOMI, Normocephalic Oral: Moist Mucosa, No Gingival or Mucosal Lesions/ Ulcerations Neck: No Nodes, Trachea Midline Lungs: Clear to auscultation, Normal air movement, No rhonchi, No wheeze, No rales Cardiovascular: Regular rate, Regular Rhythm, Normal S1, Normal S2, No murmurs Abdomen: Bowel Sounds Present, Soft, Non Tender, Non-Distended, No Hepato- splenomegaly Extremities: No edema, No Calf Tenderness Skin: No rashes, No breakdown Musculoskeletal: No Tenderness to Palpation of Joints or Extremities, No Muscle Wasting Neurological: Deep Tendon Reflexes 2+/4 and Symmetrical, Sensory exam intact to light touch and pain Psych/Mental Status: Normal Affect, Appropriate Laboratory Results 09/25/19 11:30: WBC 5.7, RBC 4.28 L, Hgb 11.4 L, Hct 36.2 L, MCV 84.6, MCH 26.6 L, MCHC 31.5 L, RDW Std Deviation 66.2 H, RDW Coeff of Lencho 21.7 H, Plt Count 180, MPV 8.9, Immature Gran % (Auto) 0.200, Neut % (Auto) 76.2 H, Lymph % (Auto) 13.2 L, [place] % (Auto) 8.1, Eos % (Auto) 1.8, Baso % (Auto) 0.5, Absolute Neuts (auto) 4.3, Absolute Lymphs (auto) 0.75 L, Nucleated RBC % 0, Differential Comment SCANNED, Anisocytosis 2+, Microcytosis 1+, Macrocytosis 1+ 09/25/19 11:30: Sodium 145, Potassium 4.1, Chloride 116 H, Carbon Dioxide 23.0, Anion Gap 6, BUN 52 H, Creatinine 2.67 H, Estim Creat Clear Calc 24.64, Est GFR (MDRD) Af Amer 30 L, Est GFR (MDRD) Non-Af 25 L, BUN/Creatinine Ratio 19.5, Glucose 128 H, Calcium 8.9, Total Bilirubin 0.50, AST 12 L, ALT 14 L, Alkaline Phosphatase 71, Total Protein 6.8, Albumin 3.4, Globulin 3.4, Albumin/Globulin Ratio 1.0, Lipase 94 09/25/19 12:00: Urine Color Straw, Urine Clarity Sl. Cloudy, Urine pH 6.0, Ur Specific [place] 1.015, Urine Protein 30 H, Urine Glucose (UA) Normal, Urine Ketones Negative, Urine Occult Blood 10 H, Urine Nitrite Negative, Urine Bilirubin Negative, Urine Urobilinogen Normal, Ur Leukocyte Esterase 500 H, Urine RBC 0-5 SEEN, Urine WBC 5-10 SEEN, Ur Squamous Epith Cells 0 SEEN, Urine Bacteria 1+, Urine Mucus 0 SEEN Clinical Impression(s) from Imaging Studies Abdomen/Pelvis CT 09/25/19 11:02 IMPRESSION: Sigmoid diverticulosis without diverticulitis. Electronically Signed: Pipe Adam MD at 12:42 EDT Tel , Service support , ADDENDUM: 09/25/19 1326 Assessment/Plan All Active Problems Pancytopenia (Acute) Neutropenic fever (Acute) Lymphoma (Acute) Lower gastrointestinal bleeding (Acute) Acute kidney injury (Acute) Left upper chest discomfort (Acute) Shortness of breath (Acute) 1. GI bleed: Appears to be lower and suspect related with diverticulosis. Hemoglobin is 11.4. Plan is just to continue to monitor him. I feel that patient had GI bleed due to diverticulosis that was compounded by the fact that the patient is already on rivaroxaban. The rivaroxaban will be held for the time being. Would recommend holding at least 48 hours after his last bout of bleeding. Informed the patient that given the coronavirus, that he would not undergo any endoscopy during this hospitalization. Consideration if patient does have recurrent bleeding is for a bleeding scan but I am not can order that at this time his bleeding seems to be abated at this time. 2. Acute kidney injury: Suspected. Last creatinine was 1.29 back in June 2018. Thus do not have any information in the interim. This certainly could be a progression of chronic kidney disease but would be concerned for this being acute kidney injury and I will give the patient some IV fluids and reevaluate his lab work in the morning. Check urine studies. I disagree with emergency room physician as I do not feel the patient has a urinary tract infection. 3. Hypertension, accelerated: Continue with amlodipine as well as carvedilol. Hold lisinopril given the acute kidney injury 4. VTE: Rivaroxaban will be held given the bleeding. Would resume in about 48 hours after his last bout of bleeding 5. VTE prophylaxis: Patient will be placed on SCDs for now 6. Advanced care planning: Discussed with the patient. Patient wishes to be DNR Comfort Care arrest no intubation at this time. Inpatient E&M: 13917 Init Hosp L3
[2019-09-25] MEDS: 0.9% Normal Saline 1,000 ML 125 ML IV (15:08)
[2019-09-25] MEDS: 0.9% Saline Lock 10 ML Syringe IV (15:13)
[2019-09-25] MEDS: Carvedilol 6.25 MG Tablet PO (15:18)
[2019-09-25] MEDS: amLODIPine 5 MG Tablet PO (15:18)
[2019-09-25] MEDS: Vitamin B Comp W-C Capsule 1 CAP PO (15:19)
[2019-09-25 16:53] LABS: Urine Sodium 41 mmol/L (Not Establ.)
[2019-09-25] MEDS: Ferrous Sulfate 325 MG Tablet PO (17:08)
[2019-09-25 18:18] LABS: Mean Corp Hgb Conc 31.4 g/dL (32-36); Mean Corpuscular Hgb 27.2 pg (27.0-32.0); Mean Corpuscular Volume 86.4 fL (80-94); Mean Platelet Vol. 9.5 fl (6.2-12.0); POSITIVE MORPHOLOGY YES; Platelet Count 163 K/mm3 (150-450); RBC Distribution Width CV 21.7 % (11.6-14.6); Red Blood Count 4.05 M/mm3 (4.6-6.2); White Blood Count 5.2 K/mm3 (4.4-11.0)
[2019-09-25 18:53] LABS: Scan Indicated on CBC? Y/N YES- FLAGS NOTED
[2019-09-26 05:08] VITALS: BP 146/68; PULSE 58; RESP 16; TEMP 36.6; O2SAT 97
[2019-09-26 06:11] LABS: Absolute Lymphocyte Count 0.93 X10^3/uL (0.83-4.51); Absolute Neutrophil Count 4.3 X10^3/uL (2.0-7.7); Basophil# 0.02 X10^3/uL; Basophil% 0.3 % (0-1); Eosinophil# 0.13 X10^3/uL; Eosinophils% 2.2 % (0-5); Hematocrit 32.4 % (40-54); Hemoglobin 10.1 g/dL (13.0-16.5); Lymphocyte # 0.93 X10^3/ul (4.0); Lymphocyte % 15.6 % (19-41); Mean Corp Hgb Conc 31.2 g/dL (32-36); Mean Corpuscular Hgb 26.9 pg (27.0-32.0); Mean Corpuscular Volume 86.4 fL (80-94); Mean Platelet Vol. 9.3 fl (6.2-12.0); Monocyte# 0.54 X10^3/uL; NRBC Flagged by Analyzer 0 % (0-5); Neutrophil # 4.34 X10^3/uL (2.7-7.7); Neutrophil % 72.7 % (47-70); POSITIVE MORPHOLOGY YES; Platelet Count 172 K/mm3 (150-450); RBC Distribution Width CV 21.7 % (11.6-14.6); Red Blood Count 3.75 M/mm3 (4.6-6.2)
[2019-09-26 06:12] LABS: Anion Gap 6 (5-15); BUN 50 mg/dL (7-18); BUN/Creat Ratio 20.8 RATIO (10-20); Calcium,Total 8.6 mg/dL (8.5-10.1); Chloride 120 mmol/L (98-107); EST Glomerular Filtration Rate 28 mL/min (>60); Est Glom Filt Rate - Afr Amer 34 mL/min (>60); Estimated Creatinine Clearance 27.41 ml/min; Glucose 100 mg/dL (74-106); Sodium Level 145 mmol/L (136-145)
[2019-09-26 06:21] LABS: Differential Indicated SCAN CRITERIA MET
[2019-09-26 07:00] LABS: Differential Comment SCANNED
[2019-09-26 07:01] LABS: Anisocytosis 2+; Macrocytosis 1+; Microcytosis 1+
[2019-09-26 08:58] VITALS: BP 153/70; PULSE 64; RESP 20; TEMP 36.5; O2SAT 94
[2019-09-26] MEDS: amLODIPine 5 MG Tablet PO (09:07)
[2019-09-26] MEDS: Polyethylene Glycol 3350 17 GM PACKET PO (09:07)
[2019-09-26] MEDS: Carvedilol 6.25 MG Tablet PO (09:07)
[2019-09-26] MEDS: Ferrous Sulfate 325 MG Tablet PO ×2 (09:07→12:49)
--- NOTE | 2019-09-26 11:33 | CASEMGMT ---
KRUPA GOMES assessment: Face to Face with patient for initial transition planning/care coordination assessment. KRUPA GOMES introduced self and role at [facility], pt voices understanding and consents to assessment at this time. Pt is lying in bed in no distress at this time. Pt is A/Ox4 at this time and answers all questions appropriately at this time. Care providers, pharmacy, and demographics verified at this time. Presentation: Bright red rectal bleeding since this am Admitting dx: GI Bleed PCP: Enrique Specialists: Karin, oncologist at [facility] main Preferred Pharmacy: [facility] Insurance: [employer] A/B, [place] Prescription Benefit: Yes Living Will/HPOA: Pt states has LW/HPOA and is aware that they are not currently on file at [facility] at this time. Pt states that his son, Paul Rizvi, is HPOA. LNOK: Paul Rizvi, son/HPOA Living Arrangements: Pt states that he lives alone in 1 story townhouse with no steps and states no concerns at home at this time. Pt states is independent with ADL's. Transportation: Pt states drives self and states no transportation concerns at this time. DME/HHC: Pt states has a cane, walker, and grab bars in shower/bathroom. Pt states does not use the cane/walker at this time. Pt states no need for any further DME at this time. Pt states has been to [facility] in the past but no hx of HHC. Pt states no concerns with going home at time of discharge. Pt states is retired. Pt states does not smoke or drink ETOH. Pt states no further concerns/needs at this time. CM to follow for any further discharge planning/needs. Advised pt to ask for CM if any further questions/concerns/needs arise, voices understanding. Pt Goal: Home Plan[place] KRUPA GOMES
[2019-09-26 12:42] LABS: Hematocrit 32.7 % (40-54); Hemoglobin 10.5 g/dL (13.0-16.5)
--- NOTE | 2019-09-26 12:45 | DCINST_ITS ---
- Discharge Diagnoses Current Active Problems: Current Active and Chronic Problems (Last Updated 09/25/19 @ 13:[address] Ed Dinero DO) Lower gastrointestinal bleeding (Acute) Acute kidney injury (Acute) You will use the following diet at home:: Cardiac Your food should be the consistency of: Regular Your liquids should be the consistency of: Regular/Thin Discharge Activity: Return to Normal Activity Additional Instructions: Wait 2 days to restart lisinopril. Call your PCP to arrange for bloodwork within 1 week (CBC and BMP). You will need to ask your PCP when it is ok to resume Xarelto. Allergies/Adverse Reactions: Allergies enoxaparin [From Lovenox] Allergy (Verified 09/25/19 14:31) Other HIT heparin Allergy (Verified 09/25/19 14:31) Other HIT aspirin Adverse Reaction (Verified 09/25/19 14:31) Other BLEEDING Iodinated Contrast Media [CONTRASTS] Adverse Reaction (Verified 09/25/19 14:31) OTHER CAN'T BECAUSE OF KIDNEYS Medications to take at Discharge Amlodipine [Norvasc] 5 mg PO DAILY 04/24/17 Carvedilol [Coreg (Beta Rick)] 6.25 mg PO DAILY 04/24/17 Lisinopril [Zestril] 20 mg PO DAILY 04/24/17 Vitamin B Complex 1 each PO DAILY 06/30/18 Ferrous Sulfate [Iron] 325 mg PO TIDCM 09/25/19 Polyethylene Glycol 3350 [Miralax] 17 gm PO DAILY 09/25/19 Primary Care Physician: Martin Nunez DO [Primary Care Provider] - Please follow up with your Primary Care Physician in: 1 week Test Results: Test results from this visit will be discussed in further detail at your follow- up appointment, if applicable. Please Follow Up With: Jonn Rebolledo MD - Concerning Endoscopy. When: 2 weeks Proposed Discharge Date: 09/26/19
[2019-09-26] MEDS: Vitamin B Comp W-C Capsule 1 CAP PO (12:48)
--- NOTE | 2019-09-26 13:34 | PCM.DC.SUM ---
<Prashanth Gray - Last Filed: 09/26/19 13:34> Discharge Date and Diagnosis - Problem List Patient Problems: Active and Suspected Problems (Last Updated 09/25/19 @ 13:[address] Ed Dinero DO) Lower gastrointestinal bleeding (Acute) Acute kidney injury (Acute) Date of Admission: 09/25/19 Date of Discharge: 09/26/19 - Primary Discharge Diagnosis Active and Suspected Problems (Last Updated 09/25/19 @ 13:[address] Ed Dinero DO) Acute blood loss anemia 2/2 Lower gastrointestinal bleeding suspect diverticular complicated by xarelto use Acute kidney injury (Acute) Hx VTE Hx Bladder cancer HT Hospital Course and Treatment Imaging Results: CT/Abdomen/Pelvis without Cont IMPRESSION: Sigmoid diverticulosis without diverticulitis. Increased density within the gallbladder. This may represent a combination of multiple small stones and sludge. Correlation with ultrasound is recommended. There is also evidence of minimal anterior pericardial thickening. Operations: None Procedures: None Summary of Care Provided: Hospital Course: The patient is a 74 year old M with pmhx as above notably hx VTE on xarelto who presented to the ER with c/o BRBPR. He woke up in the morning and had red blood in the toilet bowl with clots, some LLQ cramping pain. He denies a hx of GI bleed. In the ER CT showed diverticulosis no diverticulitis, and Hgb of 11.4. He was suspected to have had a diverticular bleed. He was admitted to the PCU and taken off of xarelto. He also appeared to have JOHANNA with BUN and Cr elevated to 52 and 2.67 respectively. His MARCELA inhibitor was held. He had no further bloody BM. His Hgb declined to 10.1 the following day, but later improved to 10.5 without transfusion. He had no LH/dizziness or SOB. He was discharged home in stable condition. I have recommended that he follow up with general surgery as an outpatient to arrange for endoscopy. I have advised him to hold his xarelto for the time being and to follow up with his PCP in 1 week to determine if he is able to resume xarelto. I have also advised that he talk to his PCP to arrange a CBC and BMP within a week to assess his blood counts and renal function. I have recommended he hold lisinopril for 2 days before restarting. This patient was seen by Prashanth Gray PA-C under the supervision of Dr. Renae. [] Patient Problems: Active and Suspected Problems (Last Updated 09/25/19 @ 13:[address] Ed Dinero, DO) Lower gastrointestinal bleeding (Acute) Acute kidney injury (Acute) - Physical Exam Vitals/I&O's: Vital Signs Temp Pulse Resp BP Pulse Ox 97.7 F L 64 20 H 153/70 H 94 09/26/19 08:58 09/26/19 08:58 09/26/19 08:58 09/26/19 08:58 09/26/19 08:58 Oxygen Delivery Method Room Air Weight: 259 lb 7.745 oz Body Mass Index (BMI) 38.3 Intake and Output for Last 24 Hours 09/24/19 09/25/19 09/26/19 23:59 23:59 23:59 Intake Total 2360 / 2460 600 / 600 Balance 2360 / 2460 600 / 600 General: Alert, Oriented x3, Cooperative HEENT: Atraumatic, PERRLA, EOMI, Normocephalic Neck: Supple, No JVD, Negative Carotid Bruits Lungs: Clear to auscultation, Normal air movement Cardiovascular: Regular rate, No murmurs Abdomen: Bowel Sounds Present, Soft, Non Tender Extremities: No edema, Capillary Refill Less than 3 Seconds Skin: No rashes, No breakdown Musculoskeletal: No Tenderness to Palpation of Joints or Extremities Neurological: Cranial nerves II-XII grossly intact Psych/Mental Status: Normal Affect, Appropriate, Alert and oriented to time, place, person, mood and affect Laboratory Results 09/25/19 16:40: Urine Creatinine 82.70 09/25/19 16:40: Ur Random Sodium 41 09/25/19 17:54: WBC 5.2, RBC 4.05 L, Hgb 11.0 L, Hct 35.0 L, MCV 86.4, MCH 27.2, MCHC 31.4 L, RDW Std Deviation 69.0 H, RDW Coeff of Lencho 21.7 H, Plt Count 163, MPV 9.5, Differential Comment SEE NOTED ABOVE 09/26/19 05:36: WBC 6.0, RBC 3.75 L, Hgb 10.1 L, Hct 32.4 L, MCV 86.4, MCH 26.9 L, MCHC 31.2 L, RDW Std Deviation 68.0 H, RDW Coeff of Lencho 21.7 H, Plt Count 172, MPV 9.3, Immature Gran % (Auto) 0.200, Neut % (Auto) 72.7 H, Lymph % (Auto) 15.6 L, Teller % (Auto) 9.0, Eos % (Auto) 2.2, Baso % (Auto) 0.3, Absolute Neuts (auto) 4.3, Absolute Lymphs (auto) 0.93, Nucleated RBC % 0, Differential Comment SCANNED, Anisocytosis 2+, Microcytosis 1+, Macrocytosis 1+ 09/26/19 05:36: Sodium 145, Potassium 4.0, Chloride 120 H, Carbon Dioxide 19.0 L, Anion Gap 6, BUN 50 H, Creatinine 2.40 H, Estim Creat Clear Calc 27.41, Est GFR (MDRD) Af Amer 34 L, Est GFR (MDRD) Non-Af 28 L, BUN/Creatinine Ratio 20.8 H, Glucose 100, Calcium 8.6 09/26/19 12:01: Hgb 10.5 L, Hct 32.7 L Current Medications Acetaminophen (Tylenol) 650 mg PO Q6H PRN PRN PRN Reason: Pain Score 1-10/Temp > 100.7 F Amlodipine Besylate (Norvasc) 5 mg PO DAILY [facility] Last Admin: 09/26/19 09:07 Dose: 5 mg Documented by: Carvedilol (Coreg) 6.25 mg PO DAILY [facility] Last Admin: 09/26/19 09:07 Dose: 6.25 mg Documented by: Dextrose (D50w Syringe) 0 gm IV X1 PRN; Protocol PRN Reason: Hypoglycemia Ferrous Sulfate (Ferrous Sulfate) 325 mg PO TIDCM [facility] Last Admin: 09/26/19 12:49 Dose: 325 mg Documented by: Glucagon () 1 mg IM .X1 PRN PRN Reason: Hypoglycemia Multivitamins (Allbee W/C Caplet, Thera B Comp/C) 1 capsule PO DAILY [facility] Last Admin: 09/26/19 12:48 Dose: 1 capsule Documented by: Polyethylene Glycol (Miralax) 17 gm PO DAILY [facility] Last Admin: 09/26/19 09:07 Dose: 17 gm Documented by: Sodium Chloride () 10 - 40 ml IV UD PRN PRN Reason: Port-a-Cath (VAD) Flush Last Admin: 09/25/19 15:13 Dose: 10 ml Documented by: Sodium Chloride (0.9% Nacl (Sterile) Posiflush) 10 - 40 ml IV UD PRN PRN Reason: Port access or dressing change Discharge Diet: Low fat/ Low Cholesterol, 2000 mg Sodium Diet Discharge Activity: Return to Normal Activity Home Medications: Medications to take at Discharge Amlodipine [Norvasc] 5 mg PO DAILY 04/24/17 Carvedilol [Coreg (Beta Rick)] 6.25 mg PO DAILY 04/24/17 Lisinopril [Zestril] 20 mg PO DAILY 04/24/17 Vitamin B Complex 1 each PO DAILY 06/30/18 Ferrous Sulfate [Iron] 325 mg PO TIDCM 09/25/19 Polyethylene Glycol 3350 [Miralax] 17 gm PO DAILY 09/25/19 Primary Care Physician: Martin Nunez DO [Primary Care Provider] - Please follow up with your Primary Care Physician in: 1 week Please Follow Up With: Jonn Rebolledo MD - Concerning Endoscopy. When: 2 weeks Disposition: Home Minutes spent on discharge:: 35 Patient Condition:: Stable Medical Necessity - Tobacco Use Smoking Status: Former smoker Tobacco Use: Non-smoker Meaningful Use Info Meaningful Use Diagnoses (Choose all that apply): None applicable <Anselmo Renae - Last Filed: 09/26/19 15:27> Discharge Date and Diagnosis - Primary Discharge Diagnosis Active and Suspected Problems (Last Updated 09/25/19 @ 13:[address] Ed Dinero DO) Lower gastrointestinal bleeding (Acute) Acute kidney injury (Acute) Hospital Course and Treatment Summary of Care Provided: This patient was seen in conjunction with Prashanth MOSS. I have independently interviewed and examined the patient and reviewed pertinent history, examination findings, laboratory and plan of management. I have reviewed the note and agree with the documented findings with the few additional points. In brief, patient is 74-year gentleman with history of DVT on Xarelto is admitted through ER for bright red blood per rectum on the day of admission. Patient also had abdominal cramps and CT finding was consistent with diverticulosis without diverticulitis. Xarelto is on hold. Patient is advised to hold Xarelto for 3 more days and repeat CBC to follow-up with PCP before resumption. H&H is stable between 10 to 11 g%. Patient also has acute kidney injury on CKD stage III. Previous creatinine 1.29 on June 30, 2018 of creatinine clearance 52 mils per minute. Admitted with creatinine 2.67 improved to 2.4 with IV fluid. Patient was advised to hold lisinopril for 3 days and resume with 10 mg daily. Follow-up PCP with repeat CBC and BMP and titrate up the dose of lisinopril. Other comorbidities as mentioned above hypertension and DVT. Discharge medication reconciliation done. Discharge follow-up instructions completed. Discharge process discussed with the patient and all questions were answered to patient's satisfaction. Patient was admitted as inpatient but was discharged because of sooner recovery than expected. Total time spent, exact 35 minutes on discharge meds reconciliation, examination, coordination of care with nurses and ancillary staff, review of imaging and blood test and discussion with the patient on follow-up instructions I have discussed my assessment with Prashanth MOSS and orders have been reviewed. [] Subjective: This 74-year-old gentleman admitted with rectal bleeding. CT abdomen done shows diverticulosis without diverticulitis. Patient had abdominal cramps and left lower quadrant which is resolved. Patient had stool mixed with the stool blood in the morning. H&H is stable between 10 to 11 g%. Patient is on Xarelto for DVT and is on hold. Hemodynamically stable. - Physical Exam Vitals/I&O's: Vital Signs Temp Pulse Resp BP Pulse Ox 97.7 F L 64 20 H 153/70 H 94 09/26/19 08:58 09/26/19 08:58 09/26/19 08:58 09/26/19 08:58 09/26/19 08:58 Oxygen Delivery Method Room Air Weight: 259 lb 7.745 oz Body Mass Index (BMI) 38.3 Intake and Output for Last 24 Hours 09/24/19 09/25/19 09/26/19 23:59 23:59 23:59 Intake Total 2360 / 2460 600 / 600 Balance 2360 / 2460 600 / 600 General: Alert, Oriented x3, Cooperative HEENT: Atraumatic, PERRLA, EOMI, Normocephalic Neck: Supple, No JVD, Negative Carotid Bruits Lungs: Clear to auscultation, No rhonchi, No wheeze, No rales, Diminished Cardiovascular: Regular rate, Regular Rhythm, Normal S1, Normal S2, No murmurs Abdomen: Bowel Sounds Present, Soft, Non Tender, Non-Distended Extremities: No edema, Capillary Refill Less than 3 Seconds Skin: No rashes, No breakdown Musculoskeletal: No Tenderness to Palpation of Joints or Extremities, Arthritic Changes Lymphatic: No Cervical, Supraclavicular, or Inguinal Adenopathy Neurological: Cranial nerves II-XII grossly intact, Deep Tendon Reflexes 2+/4 and Symmetrical, Neuro grossly intact Psych/Mental Status: Normal Affect, Appropriate Laboratory Results 09/25/19 16:40: Urine Creatinine 82.70 09/25/19 16:40: Ur Random Sodium 41 09/25/19 17:54: WBC 5.2, RBC 4.05 L, Hgb 11.0 L, Hct 35.0 L, MCV 86.4, MCH 27.2, MCHC 31.4 L, RDW Std Deviation 69.0 H, RDW Coeff of Lencho 21.7 H, Plt Count 163, MPV 9.5, Differential Comment SEE NOTED ABOVE 09/26/19 05:36: WBC 6.0, RBC 3.75 L, Hgb 10.1 L, Hct 32.4 L, MCV 86.4, MCH 26.9 L, MCHC 31.2 L, RDW Std Deviation 68.0 H, RDW Coeff of Lencho 21.7 H, Plt Count 172, MPV 9.3, Immature Gran % (Auto) 0.200, Neut % (Auto) 72.7 H, Lymph % (Auto) 15.6 L, Teller % (Auto) 9.0, Eos % (Auto) 2.2, Baso % (Auto) 0.3, Absolute Neuts (auto) 4.3, Absolute Lymphs (auto) 0.93, Nucleated RBC % 0, Differential Comment SCANNED, Anisocytosis 2+, Microcytosis 1+, Macrocytosis 1+ 09/26/19 05:36: Sodium 145, Potassium 4.0, Chloride 120 H, Carbon Dioxide 19.0 L, Anion Gap 6, BUN 50 H, Creatinine 2.40 H, Estim Creat Clear Calc 27.41, Est GFR (MDRD) Af Amer 34 L, Est GFR (MDRD) Non-Af 28 L, BUN/Creatinine Ratio 20.8 H, Glucose 100, Calcium 8.6 09/26/19 12:01: Hgb 10.5 L, Hct 32.7 L Current Medications Acetaminophen (Tylenol) 650 mg PO Q6H PRN PRN PRN Reason: Pain Score 1-10/Temp > 100.7 F Amlodipine Besylate (Norvasc) 5 mg PO DAILY [facility] Last Admin: 09/26/19 09:07 Dose: 5 mg Documented by: Carvedilol (Coreg) 6.25 mg PO DAILY [facility] Last Admin: 09/26/19 09:07 Dose: 6.25 mg Documented by: Dextrose (D50w Syringe) 0 gm IV X1 PRN; Protocol PRN Reason: Hypoglycemia Ferrous Sulfate (Ferrous Sulfate) 325 mg PO TIDCM [facility] Last Admin: 09/26/19 12:49 Dose: 325 mg Documented by: Glucagon () 1 mg IM .X1 PRN PRN Reason: Hypoglycemia Multivitamins (Allbee W/C Caplet, Thera B Comp/C) 1 capsule PO DAILY [facility] Last Admin: 09/26/19 12:48 Dose: 1 capsule Documented by: Polyethylene Glycol (Miralax) 17 gm PO DAILY [facility] Last Admin: 09/26/19 09:07 Dose: 17 gm Documented by: Sodium Chloride () 10 - 40 ml IV UD PRN PRN Reason: Port-a-Cath (VAD) Flush Last Admin: 09/25/19 15:13 Dose: 10 ml Documented by: Sodium Chloride (0.9% Nacl (Sterile) Posiflush) 10 - 40 ml IV UD PRN PRN Reason: Port access or dressing change Inpatient E&M: 96710 Disch Hosp
--- NOTE | 2019-09-26 14:54 | CHAPLAIN ---
Type of Pastoral Visit _x__ Initial Visit ___ Follow-up Visit ___ On-call Visit ___ General Patient Visit ___ Spiritual Assessment ___ Family Conference ___ Bereavement ___ Rapid Response ___ Code Blue ___ Other (describe below) Pastoral Care Referral From _x__ Patient ___ Family ___ Nurse ___ Physician ___ Cloth Boil Off Machine Operator ___ Color Developer ___ Other (describe below) Sacrament/Intervention _x__ Active listening ___ Anointing ___ Mu-Ism ___ Bereavement ___ Communion _x__ [place]is[place] exploration ___ _x__ Life review _x__ Prayer ___ Reconciliation ___ Sacrament of Sick _x__ Supportive presence ___ Wedding ___ Other (describe below) Pastoral Comments
[2019-09-26 15:22] VITALS: BP 165/74; PULSE 62; RESP 18; TEMP 36.8; O2SAT 97
== END 2019-09-26 16:47 | disposition home or self-care (01) | DRG 378 ==
LOC: ED 13:37 → PCU 15:55
PROVIDERS: Physician Assistant; Emergency Provider Emergency Medicine; PCP Student in an Organized Health Care Education/Training Program; Visit Provider Internal Medicine
DX: K57.31 Diverticulosis of large intestine without perforation or abscess with bleeding (principal); N17.9 Acute kidney failure, unspecified; D62 Acute posthemorrhagic anemia; I10 Essential (primary) hypertension; T45.515A Adverse effect of anticoagulants, initial encounter; Z85.51 Personal history of malignant neoplasm of bladder; Z87.891 Personal history of nicotine dependence
CPT/HCPCS: 36415; 36591; 74176; 80048; 80053; 81001; 82570; 83690; 84300; 85014; 85018; 85025; 85027; 99285; J7030; A4216

== ENCOUNTER → 2019-10-04 13:56 | Outpatient (CLI) | payer MEDICARE, BC, SELFPAY ==
[2019-09-25 14:08] VITALS: BMI 38.3
[2019-10-04 15:38] LABS: Protein, Urine (Random) 22.3 mg/dL (<11.9); Protein:Creat Ratio 277 mg/g CRE (0-200)
== END ==
PROVIDERS: PCP Student in an Organized Health Care Education/Training Program; Visit Provider Internal Medicine Nephrology
DX: N18.4 Chronic kidney disease, stage 4 (severe) (principal)
CPT/HCPCS: 82570; 84156

== ENCOUNTER 2019-10-21 10:12 | Emergency (ER) | payer MEDICARE, BC, SELFPAY ==
[2019-09-25 14:08] VITALS: BMI 38.3
[2019-10-21 10:13] VITALS: BP 139/112; PULSE 66; RESP 17; TEMP 36.9; O2SAT 96; BMI 38.2
--- NOTE | 2019-10-21 10:23 | EKG12_ITS ---
Test Reason : ABDOMINAL Blood Pressure : / mmHG Vent. Rate : 058 BPM Atrial Rate : 058 BPM P-R Int : 174 ms QRS Dur : 164 ms QT Int : 454 ms P-R-T Axes : 060 -76 016 degrees QTc Int : 445 ms Sinus bradycardia Left axis deviation Right bundle branch block Abnormal ECG Confirmed by SHAYNA BYERS, JEANETTE ([id number]), electronic news gathering editor JAMES CLAIRE ([id number]) on 10/23/2019 11:16:35 AM Referred By: MISA Confirmed By:JEANETTE CORRAL MD
--- NOTE | 2019-10-21 10:23 | CT_ITS ---
STUDY: CT ABDOMEN AND PELVIS WITHOUT CONTRAST REASON FOR EXAM: Male, 74 years old. ABD PAIN, LUQ, FEVER RADIATION DOSAGE (If Supplied By Facility): CTDIvol = ( 22.83 ) mGy, DLP = ( 1112.09 ) mGycm TECHNIQUE: Transaxial images were obtained from the dome of the diaphragm to the symphysis pubis without oral contrast, and without intravenous contrast. Sagittal and coronal images were reconstructed. Individualized dose optimization techniques were used for this CT. COMPARISON: 25 September 2019 FINDINGS: The visualized lung bases are unremarkable. The visualized portions of the heart are within normal limits. Normal liver. Multiple layering sludge and stones within the gallbladder lumen is present. There are multiple benign calcified granulomata of the spleen. Normal pancreas. There are small, circumscribed, smooth, low attenuation bilateral adrenal masses, consistent with an adrenal adenoma. Large lobulated cyst of the right kidney are present with similar appearance compared to prior exam consistent with long-standing hydronephrosis and renal atrophy. Left renal hydronephrosis with mid ureteral nephrolith measuring 6 mm in diameters. Present with perinephric stranding. Normal visualized stomach. Normal small intestine. There are multiple colonic diverticula consistent with diverticulosis. The appendix is visualized and appears normal. There is diffuse atherosclerotic calcification of the abdominal aorta, without a demonstrated aneurysm. There is an IVC filter in place. Normal retroperitoneum. Surgical clips within the pelvis consistent with bladder resection and neobladder is present. There is laxity of the anterior abdominal wall in the lower segment. There are diffuse degenerative changes of the visualized lumbar spine. CT/Abdomen/Pelvis without Cont IMPRESSION: 1. Findings consistent with left renal moderate hydronephrosis and obstructive nephropathy with a 6 mm mid ureteral stone. Otherwise no evidence of additional acute intra-abdominal process with senescent change as above. 2. Unchanged likely chronic hydronephrosis right kidney and long-standing atrophic changes. Electronically Signed: Rubén Overton DO at 14:40 EDT , Service support ,
--- NOTE | 2019-10-21 11:08 | ED.VIS.GEN ---
History of Present Illness Chief Complaint: Abd Pain Informant: Patient Onset: Days Current Severity: Mild Narrative: The patient presents complaining of left middle quadrant type flank pain that began a few days ago it comes and goes it is a sharp stabbing pain, He has a history of bladder cancer with bladder resection he states he has some type of an internal urinary pouch dated to bladder cancer surgery, prior history for lymphoma treated with chemotherapy a few years ago Indicates he is not been ill he is eating and drinking his bowel habits are normal he is had less urine output he states since all this began indicates the pain is triggered by him drinking water he has a prior history for kidney stones years ago and this feels like that he denies a history of [place] PE DVT or any other intra-abdominal conditions or disorders Past Medical History - Allergies and Home Meds Allergies/Adverse Reactions: Allergies enoxaparin [From Lovenox] Allergy (Verified 10/21/19 10:13) Other HIT heparin Allergy (Verified 10/21/19 10:13) Other HIT aspirin Adverse Reaction (Verified 10/21/19 10:13) Other BLEEDING Iodinated Contrast Media [CONTRASTS] Adverse Reaction (Verified 10/21/19 10:13) OTHER CAN'T BECAUSE OF KIDNEYS Primary Care Physician: Martin Nunez DO [Primary Care Provider] - Past Medical History: - Surgical History: cataract, tonsillectomy, - - Bladder removal due to bladder cancer with reconstruction of a bladder Smoking Status: Former smoker - Family History Maternal Family History: Reports: No pertinent history, - - no cancer Paternal Family History: Reports: No pertinent history Review of Systems ROS: - Includes as above General: Denies: Chills, Fever, Sweats Eyes: Denies: Visual changes - bilaterally, Diplopia ENT: Denies: Rhinorrhea, Sore throat Cardiovascular: Denies: Chest pain, Palpitations Respiratory: Denies: Dyspnea, Cough, Dyspnea on exertion Gastrointestinal: Reports: Abdominal pain. Denies: Nausea, Vomiting, Diarrhea, Melena, Hematochezia Genitourinary: Denies: Dysuria, Hematuria, Frequency Musculoskeletal: Denies: Back pain, Extremity Pain Skin: Denies: Rash, Wounds Neurological: Denies: Headache, Weakness, Numbness Physical Exam Vital Signs/Narrative: Vital Signs Temp Pulse Resp BP Pulse Ox 10/21/19 10:13 98.5 F 66 17 139/112 H 96 General: Well nourished, Well developed, No Acute Distress Head: Normocephalic, Atraumatic Eyes: Perrl, EOMI ENT: Moist mucous membranes, No rhinorrhea Neck: Supple, Nontender Cardiovascular: Regular rate, Regular rhythm, No murmurs Respiratory: No distress, CTA bilaterally, Chest nontender Abdomen: Soft, Nontender, Nondistended, Normal bowel sounds, - - Abdomen is soft nontender slightly protuberant, there is no rebound or guarding he has a vague pain to the left middle quadrant he has a midline scar that is old representing his prior bladder resection he has no tenderness or complaints his back is unremarkable Back: Nontender, Normal Inspection Extremities: Nontender, No edema Skin: Normal color, No rash Neurological: Alert, Oriented x3, Cranial nerves II-XII grossly intact, Normal Strength, Normal Sensation Psychological: Normal affect, Normal Mood Diagnostic/Tx/Re-eval - Medical Decision Making The differential is rather extensive on the patient the patient's EKG shows a sinus bradycardia rate of about 60 no injury pattern right bundle branch no prior EKGs his exam is unremarkable vitals unremarkable screening labs CT The patient screening evaluation shows his creatinine is about 3.2 elevated from his baseline which is about 2.7, see all the labs please, the CT flank shows obstructing kidney stone left with hydronephrosis, on reevaluation is resting comfortably we discussed the management discussed the differential discussed all the options, the patient has urologist that he seen for the bladder resection bladder cancer prior kidney stones, he is comfortable following up with them as a precaution I will provide him local urology follow-up, Naprosyn for pain [place] as a rescue medicine and he will return for change in symptoms Home stable Final impression left flank pain related to left-sided obstructing kidney stone ED Disposition - Plan for ED Patient: Diagnosis: Acute kidney injury, Kidney stone on left side Instructions: ED Renal Stone w Colic Prescriptions: Naproxen [Naprosyn] 500 mg PO BID PRN #20 tab Prescription Printed Hydrocodone Bitart/Apap 5-325 [[place] 5MG-325MG] 1 tab PO Q4H PRN PRN 2 Days #10 tab PRN Reason: Pain Prescription Printed Referrals: Martin Nunez DO [Primary Care Provider] - Facundo Kelsey MD [STAFF PHYSICIAN] -
[2019-10-21 11:14] VITALS: BP 175/88; PULSE 58; RESP 18; O2SAT 95
--- NOTE | 2019-10-21 11:35 | NURSING ---
no lw or poa
[2019-10-21] MEDS: 0.9% Normal Saline 1,000 ML 125 ML IV (11:37)
[2019-10-21] MEDS: Ondansetron 4 MG/2 ML Vial IV (11:37)
[2019-10-21] MEDS: morphine 8 MG/ML Syringe IV (11:37)
[2019-10-21 11:53] LABS: Absolute Neutrophil Count 5.8 X10^3/uL (2.0-7.7); Basophil# 0.01 X10^3/uL; Basophil% 0.1 % (0-1); Eosinophil# 0.01 X10^3/uL; Eosinophils% 0.1 % (0-5); Hematocrit 36.7 % (40-54); Hemoglobin 11.9 g/dL (13.0-16.5); Lymphocyte % 8.6 % (19-41); Mean Corp Hgb Conc 32.4 g/dL (32-36); Mean Corpuscular Hgb 28.3 pg (27.0-32.0); Mean Corpuscular Volume 87.2 fL (80-94); Mean Platelet Vol. 9.3 fl (6.2-12.0); Monocyte# 0.57 X10^3/uL; Monocyte% 8.1 % (0-10); NRBC Flagged by Analyzer 0 % (0-5); Neutrophil % 82.8 % (47-70); POSITIVE DIFFERENTIAL YES; Platelet Count 173 K/mm3 (150-450); RBC Distribution Width CV 17.6 % (11.6-14.6); RBC Distribution Width SD 57.4 fl (35.1-43.9); Red Blood Count 4.21 M/mm3 (4.6-6.2)
[2019-10-21 11:54] LABS: Differential Indicated SCAN CRITERIA MET
[2019-10-21 12:10] LABS: ALB/GLOB Ratio 0.9 RATIO (0.9-2.4); AST(SGOT) 23 U/L (15-37); Alanine Aminotransfer ALT/SGPT 14 U/L (16-61); Albumin, Serum 3.3 g/dL (3.2-5.0); Alkaline Phosphatase 79 U/L (45-117); Anion Gap 8 (5-15); BUN 60 mg/dL (7-18); BUN/Creat Ratio 16.1 RATIO (10-20); Calcium,Total 8.7 mg/dL (8.5-10.1); Chloride 113 mmol/L (98-107); Creatinine, Serum 3.73 mg/dL (0.70-1.30); EST Glomerular Filtration Rate 17 mL/min (>60); Est Glom Filt Rate - Afr Amer 21 mL/min (>60); Estimated Creatinine Clearance 18.21 ml/min; Globulin 3.8 g/dL (2.2-4.2); Glucose 135 mg/dL (74-106); Lipase 82 U/L (73-393); Potassium 4.1 mmol/L (3.5-5.1); Protein, Total 7.1 g/dL (6.4-8.2); Sodium Level 143 mmol/L (136-145)
[2019-10-21 12:23] LABS: Lactic Acid 1.3 mmol/L (0.4-1.9)
[2019-10-21 12:32] LABS: Mucous, Urine 0 SEEN /hpf (<or=2+); Squamous Epithelial Cells - UA 0 SEEN /hpf (0-5)
[2019-10-21 12:35] LABS: Color, Urine Yellow (Yellow); Glucose, Dipstick Normal (Normal); Ketone-Dipstick Negative (Negative); Leukocyte Esterase-Dipstick 25 /ul (Negative); Nitrite-Dipstick Negative (Negative); Occult Blood-Urine 250 /ul (Negative); Protein-Dipstick 15 mg/dl (Negative); Urine Bilirubin Dipstick Negative (Negative); Urine Clarity Clear (Clear); Urine Urobilinogen Normal (Normal)
[2019-10-21 12:42] LABS: Red Blood Cells-Urine 10-25 SEEN /hpf (0-5); White Blood Cells 0-5 SEEN /hpf (0-5)
[2019-10-21 12:43] LABS: Bacteria 1+ /hpf (None Seen)
[2019-10-21 15:22] VITALS: BP 172/89; PULSE 52; RESP 18; O2SAT 93
== END 2019-10-21 15:23 | disposition home or self-care (01) ==
LOC: ED 13:51
PROVIDERS: Emergency Provider Emergency Medicine; PCP Student in an Organized Health Care Education/Training Program
DX: N17.9 Acute kidney failure, unspecified (principal); N20.0 Calculus of kidney; Z87.891 Personal history of nicotine dependence
CPT/HCPCS: 74176; 80048; 80053; 81001; 83605; 83690; 84484; 85025; 93005; 96360; 96361; 96374; 96375; 99285; J7030; A4216; J2405

== ENCOUNTER → 2019-10-24 08:14 | Outpatient (CLI) | payer MEDICARE, BC, SELFPAY ==
[2019-10-21 10:13] VITALS: BMI 38.2
[2019-10-23 16:31] LABS: Platelet Count 159 K/mm3 (150-450)
[2019-10-23 16:43] LABS: International Normalized Ratio 1.1; Prothrombin Time (Protime)PT. 14.1 SECONDS (11.7-14.9)
[2019-10-23 16:44] LABS: Partial Thromboplast Time 30.3 Seconds (24.1-36.2)
[2019-10-24] VITALS (8 sets, daily range): BP systolic 122–186; BP diastolic 58–80; PULSE 60–71; RESP 15–20; O2SAT 94–98; BMI 38.9
--- NOTE | 2019-10-24 10:15 | CT_ITS ---
PROCEDURE: CT GUIDANCE DURING PERCUTANEOUS NEPHROSTOMY PROCEDURE. DATE OF EXAMINATION: October 24, 2019. INDICATION: Male, 74 years old. Left hydronephrosis and hydroureter due to left ureteral stone. PHYSICIAN: Rd Hernandez M.D. CONSENT: The patient''s history and physical findings were reviewed. Prior to the procedure the percutaneous nephrostomy and attempted right ureteral stent insertion were described to the patient who then signed a consent. SEDATION: Conscious sedation was performed. The patient received 2 mg of Versed and 50 mcg of fentanyl intravenously. Conscious sedation was started at 11:09 AM and terminate at 11:35 AM. The patient was monitored independently by the department nurse. CTDIvol : 16.67 DLP : 881.53. Individualized dose reduction techniques were utilized. TECHNIQUE: A 8.5 [place] percutaneous left nephrostomy catheter was inserted under CT guidance.. A loop of the pigtail catheter was formed within the left renal pelvis and locked in this position. There is dilatation of the upper collecting system and dilatation of the left ureter. The catheter was secured to the skin surface and covered with a sterile dressing. The catheter was attached to a drainage bag attached to the patient''s leg. CT/CT Guidance Abscess Drg w/Cath IMPRESSION: 1. The percutaneous left nephrostomy catheter is in good position with the pigtail portion located in the left renal pelvis. 2. The conscious sedation protocol was followed. Electronically Signed: Rd Hernandez, at 12:30 EDT , Service support ,
[2019-10-24] MEDS: Midazolam 2 MG/2 ML Syringe IV (11:09)
[2019-10-24] MEDS: fentaNYL 100 MCG/2 ML Ampul IV (11:09)
== END ==
PROVIDERS: PCP Student in an Organized Health Care Education/Training Program; Referring Provider Nurse Practitioner Adult Health; Visit Provider Nurse Practitioner Adult Health
DX: N13.2 Hydronephrosis with renal and ureteral calculous obstruction (principal); N18.4 Chronic kidney disease, stage 4 (severe); I12.9 Hypertensive chronic kidney disease with stage 1 through stage 4 chronic kidney disease, or unspecified chronic kidney disease
CPT/HCPCS: 50432; 36415; 75989; 85049; 85610; 85730; 99156; 99157; J7040; A4216

== ENCOUNTER 2019-11-16 12:27 | Day surgery (SDC) | payer MEDICARE, BC, SELFPAY ==
[2019-10-24 10:35] VITALS: BMI 38.9
[2019-11-07 14:31] VITALS: BMI 38.9
[2019-11-16 13:23] VITALS: BP 185/67; PULSE 63; RESP 18; TEMP 36.4; O2SAT 99; BMI 38.9
[2019-11-16] MEDS: Lactated Ringers 1,000 ML 100 ML IV (13:45)
--- NOTE | 2019-11-16 14:58 | PCM.HP.STD ---
Problem List (1) Left ureteral calculus Status: Acute History of Present Illness Date of Admission: 11/16/19 Chief Complaint: Left ureteral calculi solitary left kidney history of bladder cancer with neobladder The patient is a 74 year old male with a history of a neobladder who had a nephrostomy tube placed in his left side. This was secondary to an obstructing stone in the proximal left ureter. Today he presents for an antegrade ureteroscopy through had the nephrostomy tube track that has already been established. We are doing an antegrade approach because he has a neobladder and it would be nearly impossible or difficult to proceed with a retrograde ureteroscopy patient understands this probably after surgery will place a stent on that left side and remove the right nephrostomy tube. Past Medical History Past Medical History (Chronic Problems): Chronic Problems (Last Reviewed 11/07/19 @ 16:[address] Cristian Nazario MD) CKD (chronic kidney disease) stage 4, GFR 15-29 ml/min (Chronic) Essential hypertension (Chronic) Medical History: Medical History (Last Reviewed 11/07/19 @ 16:[address] Cristian Nazario MD) CKD (chronic kidney disease) stage 4, GFR 15-29 ml/min (Chronic) N18.4 Preop cardiovascular exam (Acute) Z01.810 Elevated troponin (Acute) R79.89 Essential hypertension (Chronic) I10 Pancytopenia (Acute) D61.818 Neutropenic fever (Acute) D70.9, R50.81 Lymphoma (Resolved) C85.90 Acute kidney injury (Acute) N17.9 Renal calculus N20.0 VTE (venous thromboembolism) I82.90 Anemia D64.9 History of solitary pulmonary nodule Z87.898 Bladder cancer C67.9 History of DVT (deep vein thrombosis) Z86.718 History of pulmonary embolism Z86.711 Left upper chest discomfort (Resolved) Lower gastrointestinal bleeding (Resolved) K92.2 Lymphoma C85.90 Shortness of breath (Resolved) R06.02 Allergies enoxaparin [From Lovenox] Allergy (Verified 11/16/19 13:20) Other HIT heparin Allergy (Verified 11/16/19 13:20) Other HIT aspirin Adverse Reaction (Verified 11/16/19 13:20) Other BLEEDING Iodinated Contrast Media [CONTRASTS] Adverse Reaction (Verified 11/16/19 13:20) OTHER CAN'T BECAUSE OF KIDNEYS Home Medications: Ambulatory Orders Medication Instructions Recorded Carvedilol [Coreg (Beta Rick)] 6.25 mg PO DAILY 04/24/17 ferrous sulfate 325 mg (65 mg 65 mg PO TID tab 11/06/19 iron) tablet pyridoxine (vitamin B6) 100 mg 100 mg PO DAILY 11/06/19 tablet amlodipine 5 mg tablet 5 mg PO 1500 11/07/19 lisinopril 20 mg tablet 10 mg PO 1700 11/07/19 Surgical History: Surgical History (Last Reviewed 11/07/19 @ 16:[address] Cristian Nazario MD) H/O total cystectomy Z90.6 History of cataract extraction Z98.49 History of corrected cleft lip and palate Z87.730 History of tonsillectomy Z90.89 Surgical History: cataract, tonsillectomy, - - Bladder removal due to bladder cancer with reconstruction of a bladder Psychiatric History: No pertinent psych hx Smoking Status: Former smoker - *Family History Maternal Family History: Family History (Last Reviewed 11/07/19 @ 16:[address] Cristian Nazario MD) Father Cancer Brother Cancer History Items: No pertinent history, - - no cancer Paternal Family History: Family History (Last Reviewed 11/07/19 @ 16:[address] Cristian Nazario MD) Father Cancer Brother Cancer History Items: No pertinent history Review of Systems Constitutional: Denies: Chills, Fever, Weight Change HEENT: Denies: Head Aches, Sinus Congestion, Sinus Drainage Cardiovascular: Denies: Chest Pain, Palpitations Respiratory: Denies: Cough, Shortness of breath at rest, Sputum production Gastrointestinal: Denies: Abdominal Pain, Nausea, Vomiting Genitourinary: Denies: Dysuria Musculoskeletal: Denies: Joint Pain, Joint Tenderness Skin: Denies: Rash, Wounds Neurological: Denies: Numbness, Tingling, Focal weakness Psychiatric: Denies: Anxiety, Depression, Homicidal Ideations, Suicidal Ideations Hematologic/ Lymphatic: Denies: Easy Bruising, Easy Bleeding VTE Information - Inpt Only VTE Present on Admission: No VTE Mechan Device Prophylaxis: SCD's Patient Problems: Active and Suspected Problems (Last Reviewed 11/07/19 @ 16:[address] Cristian Nazario MD) Left ureteral calculus (Acute) - Physical Exam Vitals/I&O's: Vital Signs Temp Pulse Resp BP Pulse Ox 97.5 F L 63 18 185/67 H 99 11/16/19 13:23 11/16/19 13:23 11/16/19 13:23 11/16/19 13:23 11/16/19 13:23 Oxygen Delivery Method Room Air Weight: 119.6 kg Body Mass Index (BMI) 38.9 General: Alert, Oriented x3, Cooperative HEENT: Atraumatic, PERRLA, EOMI, Normocephalic Neck: Supple, No JVD, Negative Carotid Bruits Lungs: Clear to auscultation, Normal air movement Cardiovascular: Regular rate, No murmurs Abdomen: Bowel Sounds Present, Soft, Non Tender Extremities: No edema, Capillary Refill Less than 3 Seconds Skin: No rashes, No breakdown Musculoskeletal: No Tenderness to Palpation of Joints or Extremities Neurological: Cranial nerves II-XII grossly intact Psych/Mental Status: Normal Affect, Appropriate Microbiology Past 72 Hours 11/15/19 12:30 Mucosa - Nasopharyngeal Coronavirus COVID-19 PCR - Final Current Medications Lactated Ringer's () 1,000 mls @ 100 mls/hr IV .Q10H JOSUÉ Last Admin: 11/16/19 13:45 Dose: 100 mls/hr Documented by: Assessment/Plan All Active Problems (Last Reviewed 11/07/19 @ 16:[address] Cristian Nazario MD) Left ureteral calculus (Acute) Preop cardiovascular exam (Acute) Elevated troponin (Acute) Pancytopenia (Acute) Neutropenic fever (Acute) Lymphoma (Resolved) Acute kidney injury (Acute) Left upper chest discomfort (Resolved) Lower gastrointestinal bleeding (Resolved) Shortness of breath (Resolved) Plan to proceed with left ureteroscopy laser lithotripsy of stone and left kidney antegrade fashion through the nephrostomy tube tract removal nephrostomy tube nephrostogram and left stent placement.
--- NOTE | 2019-11-16 15:01 | DCINST_ITS ---
Discharge Diet: No Restrictions, Light diet - advance as tolerated Discharge Activity: Return to Normal Activity, May Not Drive - for 2 days. Additional Activity Instructions:: Please be aware that pain medications may cause nausea. You should typically eat light foods as you take your pain medication. Pain medication may cause constipation, if this is a problem for you, please discuss with your doctor. Allergies/Adverse Reactions: Allergies enoxaparin [From Lovenox] Allergy (Verified 11/16/19 13:20) Other HIT heparin Allergy (Verified 11/16/19 13:20) Other HIT aspirin Adverse Reaction (Verified 11/16/19 13:20) Other BLEEDING Iodinated Contrast Media [CONTRASTS] Adverse Reaction (Verified 11/16/19 13:20) OTHER CAN'T BECAUSE OF KIDNEYS Medications to take at Discharge Carvedilol [Coreg (Beta Rick)] 6.25 mg PO DAILY 04/24/17 ferrous sulfate 325 mg (65 mg iron) tablet 65 mg PO TID tab 11/06/19 pyridoxine (vitamin B6) 100 mg tablet 100 mg PO DAILY 11/06/19 amlodipine 5 mg tablet 5 mg PO 1500 11/07/19 lisinopril 20 mg tablet 10 mg PO 1700 11/07/19 Cephalexin [Keflex] 250 mg PO TID #14 cap 11/16/19 The following prescriptions were given: Cephalexin [Keflex] 250 mg PO TID #14 cap Transmission Status: Pending to [id number] Primary Care Physician: Martin Nunez DO [Primary Care Provider] - Test Results: Test results from this visit will be discussed in further detail at your follow- up appointment, if applicable. Please Follow Up With: Facundo Kelsey MD When: please call to make an appointment.
[2019-11-16] MEDS: Cefazolin 2 GM in 0.9% Normal Saline 100 ML IV (15:20)
--- NOTE | 2019-11-16 16:05 | OP.PCM_ITS ---
Problem List (1) Left ureteral calculus Status: Acute Report of Operation Date of Procedure: 11/16/19 Pre-Operative Diagnosis: 8 mm mid ureteral stone in the left kidney solitary left kidney history of bladder cancer with neobladder status post nephrostomy tube placement for obstruction Post-Operative Diagnosis: The same ureteral stone is passed no stone seen within the ureter or the kidney nephrostomy tube removed. Surgery/Procedure Performed:: Removal of left nephrostomy tube, left nephrostogram antegrade, left ureteroscopy via nephrostomy tube access site. Description of Surgical Findings:: 74-year-old male with a history of bladder cancer his bladder is been removed he has a neobladder he has a solitary left kidney right kidney is a dilated minimally functioning, he presented to the emergency room with a large 8 mm stone in the proximal ureter causing obstruction he underwent nephrostomy tube placement he was going to go for surgery but needed cardiac clearance this took a while to get in the car see cardiology finally got cleared and now is on for surgery bout 3 weeks later after his nephrostomy tube is been placed. Denies ever seeing the kidney stones organ to proceed with ureteroscopy. Patient was taken back to the operating room at the smooth induction of anesthesia he was placed facedown on the table after general anesthesia with endotracheal intubation, we draped the nephrostomy tube site, I advanced a wire through the nephrostomy tube could see the wire coil in the upper pole of the kidney and then I manipulated the wire into the pelvis. I then used a dual- lumen access sheath to get double axis to the kidney and then left [address] as a safety wire the second wire over the working wire went over the working wire into the kidney went down the ureter all the way down to the neobladder and there was no stone along the course of the ureter into the neobladder. After inspecting all the way to the neobladder in order evaluate all the way along the ureter no stone fragment was seen the stone was passed at that point we performed a nephrostogram could see contrast in the collecting system going down the ureter with no obstruction. Decided not to leave a nephrostomy tube. Decided not to leave a stent since the ureter was very capacious wide open should drain well. We removed nephrostomy tubes to drain bandages and dressings were placed on the patient's back anesthetic was alert reversed and is taken back to PACU good condition we could see him back in a few weeks for checkup. Type of Anesthesia:: General Drains: none - Admit VTE Documentation VTE Present on Admission: No VTE Mechan Device Prophylaxis: SCD's
[2019-11-16 16:19] VITALS: BP 167/68; BP 185/67; PULSE 72; RESP 16; TEMP 36.7; O2SAT 96
[2019-11-16 16:30] VITALS: BP 183/66; BP 185/67; PULSE 66; RESP 18; O2SAT 97
[2019-11-16 16:48] VITALS: BP 169/68; BP 185/67; PULSE 62; RESP 18; TEMP 36.9; O2SAT 95
[2019-11-16 18:15] VITALS: BP 169/60; BP 185/67; PULSE 66; RESP 18; TEMP 36.3; O2SAT 96
== END 2019-11-16 18:20 | disposition home or self-care (01) ==
LOC: SDC 12:31 → AC 12:32
PROVIDERS: PCP Student in an Organized Health Care Education/Training Program; Referring Provider Urology; Visit Provider Urology
PROC: 0TJ98ZZ Inspection of Ureter, Via Natural or Artificial Opening Endoscopic (ICD-10-PCS; CPT 52352; principal; 2019-11-16 14:10)
DX: Z46.6 Encounter for fitting and adjustment of urinary device (principal); N20.1 Calculus of ureter; Z86.711 Personal history of pulmonary embolism; Z86.718 Personal history of other venous thrombosis and embolism; D64.9 Anemia, unspecified; K21.9 Gastro-esophageal reflux disease without esophagitis; N18.3 Chronic kidney disease, stage 3 (moderate); Z85.038 Personal history of other malignant neoplasm of large intestine; Z85.51 Personal history of malignant neoplasm of bladder; Z85.72 Personal history of non-Hodgkin lymphomas; Z79.899 Other long term (current) drug therapy; I12.9 Hypertensive chronic kidney disease with stage 1 through stage 4 chronic kidney disease, or unspecified chronic kidney disease; Z87.891 Personal history of nicotine dependence; Z11.59 Encounter for screening for other viral diseases
CPT/HCPCS: 50386; 50561; 76000; 87635; G2023; J7120; A4216; C1758; J2405; U0002; U0004

== ENCOUNTER → 2019-11-26 11:45 | Outpatient (CLI) | payer MEDICARE, BC, SELFPAY ==
[2019-11-16 13:23] VITALS: BMI 38.9
[2019-11-26 12:23] LABS: Hematocrit 34.8 % (40-54); Hemoglobin 11.1 g/dL (13.0-16.5); Mean Corp Hgb Conc 31.9 g/dL (32-36); Mean Corpuscular Hgb 29.2 pg (27.0-32.0); Mean Corpuscular Volume 91.6 fL (80-94); Mean Platelet Vol. 9.3 fl (6.2-12.0); Platelet Count 186 K/mm3 (150-450); RBC Distribution Width CV 14.2 % (11.6-14.6); RBC Distribution Width SD 46.5 fl (35.1-43.9); White Blood Count 6.2 K/mm3 (4.4-11.0)
[2019-11-26 12:53] LABS: Albumin, Serum 3.2 g/dL (3.2-5.0); BUN 72 mg/dL (7-18); BUN/Creat Ratio 18.4 RATIO (10-20); Calcium,Total 8.6 mg/dL (8.5-10.1); Chloride 116 mmol/L (98-107); Creatinine, Serum 3.91 mg/dL (0.70-1.30); EST Glomerular Filtration Rate 16 mL/min (>60); Est Glom Filt Rate - Afr Amer 20 mL/min (>60); Glucose 100 mg/dL (74-106); Phosphorus 4.7 mg/dL (2.5-4.9); Potassium 3.7 mmol/L (3.5-5.1); Sodium Level 143 mmol/L (136-145)
== END ==
PROVIDERS: PCP Student in an Organized Health Care Education/Training Program; Referring Provider Internal Medicine Nephrology; Visit Provider Internal Medicine Nephrology
DX: N18.4 Chronic kidney disease, stage 4 (severe) (principal); K92.2 Gastrointestinal hemorrhage, unspecified
CPT/HCPCS: 36415; 80069; 83970; 85027

== ENCOUNTER → 2019-12-06 11:21 | Outpatient (CLI) | payer MEDICARE, BC, SELFPAY ==
[2019-11-16 13:23] VITALS: BMI 38.9
[2019-12-06 13:10] LABS: Albumin, Serum 3.4 g/dL (3.2-5.0); BUN 71 mg/dL (7-18); BUN/Creat Ratio 19.1 RATIO (10-20); Calcium,Total 8.8 mg/dL (8.5-10.1); Chloride 111 mmol/L (98-107); Creatinine, Serum 3.71 mg/dL (0.70-1.30); EST Glomerular Filtration Rate 17 mL/min (>60); Est Glom Filt Rate - Afr Amer 21 mL/min (>60); Glucose 112 mg/dL (74-106); Phosphorus 5.1 mg/dL (2.5-4.9); Potassium 3.7 mmol/L (3.5-5.1); Sodium Level 141 mmol/L (136-145)
== END ==
PROVIDERS: PCP Student in an Organized Health Care Education/Training Program; Visit Provider Internal Medicine Nephrology
DX: N18.4 Chronic kidney disease, stage 4 (severe) (principal)
CPT/HCPCS: 36415; 80069

== ENCOUNTER 2019-12-13 10:59 | Outpatient (RCR) | payer MEDICARE, BC, SELFPAY ==
[2019-12-13 12:02] LABS: Albumin, Serum 3.3 g/dL (3.2-5.0); BUN 63 mg/dL (7-18); BUN/Creat Ratio 17.1 RATIO (10-20); Calcium,Total 8.5 mg/dL (8.5-10.1); Chloride 113 mmol/L (98-107); Creatinine, Serum 3.69 mg/dL (0.70-1.30); EST Glomerular Filtration Rate 17 mL/min (>60); Est Glom Filt Rate - Afr Amer 21 mL/min (>60); Glucose 133 mg/dL (74-106); Phosphorus 5.4 mg/dL (2.5-4.9); Potassium 3.6 mmol/L (3.5-5.1); Sodium Level 143 mmol/L (136-145)
== END 2019-12-13 18:00 | disposition home or self-care (01) ==
LOC: LAB 10:59
PROVIDERS: PCP Student in an Organized Health Care Education/Training Program; Referring Provider Internal Medicine Nephrology; Visit Provider Internal Medicine Nephrology
DX: N18.4 Chronic kidney disease, stage 4 (severe) (principal)
CPT/HCPCS: 36415; 80069

== ENCOUNTER → 2019-12-28 14:12 | Outpatient (CLI) | payer MEDICARE, BC, SELFPAY ==
--- NOTE | 2019-12-28 14:18 | CT_ITS ---
STUDY: CT ABDOMEN AND PELVIS WITHOUT CONTRAST REASON FOR EXAM: Male, 74 years old. CALCULUS OF KIDNEY LT. LT FLANK PAIN. Hx of bladder cancer with chemo and neobladder 2009 RADIATION DOSAGE (If Supplied By Facility): CTDIvol = ( 18.58 ) mGy, DLP = ( 1168.97 ) mGycm TECHNIQUE: Transaxial images were obtained from the dome of the diaphragm to the symphysis pubis without oral contrast, and without intravenous contrast. Sagittal and coronal images were reconstructed. Individualized dose optimization techniques were used for this CT. COMPARISON: Comparison is made with prior study dated October 21, 2019. FINDINGS: Calcified granuloma in the left lower lobe. The patient is status post coronary artery bypass surgery. Minimal anterior pericardial thickening. The visualized portions of the heart are within normal limits. Normal liver. Normal gallbladder and extrahepatic biliary system. Normal spleen. Normal pancreas. Stable bilateral adrenal nodules. These are unchanged. Once again, the right kidney is enlarged. It is lobulated and consists of multiple cystic-like structure suggestive of a chronic long-standing hydronephrosis and marked in degree of renal atrophy. Stable cysts in the upper pole of the left kidney. Nonobstructive calculus measuring 3 mm in the lower pole calyx. The previously seen left-sided hydronephrosis as result. There is a small hiatal hernia. Normal small intestine. There are multiple colonic diverticula consistent with diverticulosis. The appendix is visualized and appears normal. There is diffuse atherosclerotic calcification of the abdominal aorta and its major visceral branches., without a demonstrated aneurysm. Normal inferior vena cava. Normal retroperitoneum. The patient is status post cystectomy and neobladder formation. Normal abdominal wall. There are diffuse degenerative changes of the visualized lumbar spine. CT/Abdomen/Pelvis without Cont IMPRESSION: Stable examination. The patient is status post cystectomy and neobladder formation. Marked cystic change of the right kidney with the marked degree of cortical atrophy of the right kidney. Stable 3 mm nonobstructive calculus in the lower pole calyx of the left kidney. Electronically Signed: Rd Hernandez, at 14:55 EDT , Service support ,
== END ==
PROVIDERS: PCP Student in an Organized Health Care Education/Training Program; Referring Provider Urology; Visit Provider Urology
DX: N20.0 Calculus of kidney (principal)
CPT/HCPCS: 74176

== ENCOUNTER 2020-01-03 11:59 | Outpatient (RCR) | payer MEDICARE, BC, SELFPAY ==
[2019-12-20 12:10] LABS: Albumin, Serum 3.2 g/dL (3.2-5.0); BUN 65 mg/dL (7-18); BUN/Creat Ratio 18.8 RATIO (10-20); Calcium,Total 8.2 mg/dL (8.5-10.1); Chloride 112 mmol/L (98-107); Creatinine, Serum 3.45 mg/dL (0.70-1.30); EST Glomerular Filtration Rate 19 mL/min (>60); Est Glom Filt Rate - Afr Amer 23 mL/min (>60); Glucose 114 mg/dL (74-106); Phosphorus 5.2 mg/dL (2.5-4.9); Potassium 3.5 mmol/L (3.5-5.1); Sodium Level 143 mmol/L (136-145)
[2019-12-27 12:49] LABS: Albumin, Serum 3.2 g/dL (3.2-5.0); BUN 72 mg/dL (7-18); BUN/Creat Ratio 18.3 RATIO (10-20); Calcium,Total 8.3 mg/dL (8.5-10.1); Chloride 112 mmol/L (98-107); Creatinine, Serum 3.94 mg/dL (0.70-1.30); EST Glomerular Filtration Rate 16 mL/min (>60); Est Glom Filt Rate - Afr Amer 19 mL/min (>60); Glucose 120 mg/dL (74-106); Phosphorus 5.7 mg/dL (2.5-4.9); Potassium 3.2 mmol/L (3.5-5.1); Sodium Level 141 mmol/L (136-145)
[2020-01-03 13:19] LABS: Hematocrit 31.7 % (40-54); Hemoglobin 10.1 g/dL (13.0-16.5); Mean Corp Hgb Conc 31.9 g/dL (32-36); Mean Corpuscular Hgb 29.4 pg (27.0-32.0); Mean Corpuscular Volume 92.2 fL (80-94); Mean Platelet Vol. 9.5 fl (6.2-12.0); Platelet Count 184 K/mm3 (150-450); RBC Distribution Width CV 15.5 % (11.6-14.6); RBC Distribution Width SD 50.9 fl (35.1-43.9); Red Blood Count 3.44 M/mm3 (4.6-6.2); White Blood Count 5.9 K/mm3 (4.4-11.0)
[2020-01-03 14:12] LABS: PTHIN 292.9 pg/mL (18.4-80.1)
[2020-01-03 14:21] LABS: Albumin, Serum 3.3 g/dL (3.2-5.0); BUN 85 mg/dL (7-18); BUN/Creat Ratio 20.2 RATIO (10-20); Calcium,Total 8.3 mg/dL (8.5-10.1); Chloride 117 mmol/L (98-107); Creatinine, Serum 4.21 mg/dL (0.70-1.30); EST Glomerular Filtration Rate 15 mL/min (>60); Est Glom Filt Rate - Afr Amer 18 mL/min (>60); Ferritin 118 ng/mL (26-388); Glucose 117 mg/dL (74-106); Iron 96 ug/dL (65-175); Iron Binding Capacity,Total 303 ug/dL (250-450); Phosphorus 5.8 mg/dL (2.5-4.9); Potassium 3.3 mmol/L (3.5-5.1); Sodium Level 144 mmol/L (136-145)
== END 2020-01-03 18:00 | disposition home or self-care (01) ==
LOC: LAB 11:59
PROVIDERS: PCP Student in an Organized Health Care Education/Training Program; Referring Provider Internal Medicine Nephrology; Visit Provider Internal Medicine Nephrology
DX: N18.4 Chronic kidney disease, stage 4 (severe) (principal); N25.81 Secondary hyperparathyroidism of renal origin; D50.9 Iron deficiency anemia, unspecified
CPT/HCPCS: 36415; 80069; 82728; 83540; 83550; 83970; 85027

== ENCOUNTER → 2020-01-10 15:06 | Outpatient (CLI) | payer MEDICARE, BC, SELFPAY ==
[2020-01-10 16:02] LABS: Albumin, Serum 3.3 g/dL (3.2-5.0); BUN 80 mg/dL (7-18); BUN/Creat Ratio 16.7 RATIO (10-20); Calcium,Total 8.5 mg/dL (8.5-10.1); Chloride 113 mmol/L (98-107); Creatinine, Serum 4.79 mg/dL (0.70-1.30); EST Glomerular Filtration Rate 13 mL/min (>60); Est Glom Filt Rate - Afr Amer 15 mL/min (>60); Glucose 112 mg/dL (74-106); Phosphorus 6.7 mg/dL (2.5-4.9); Potassium 3.8 mmol/L (3.5-5.1); Sodium Level 139 mmol/L (136-145)
== END ==
PROVIDERS: PCP Student in an Organized Health Care Education/Training Program; Referring Provider Internal Medicine Nephrology; Visit Provider Internal Medicine Nephrology
DX: N25.81 Secondary hyperparathyroidism of renal origin (principal); D50.9 Iron deficiency anemia, unspecified; N18.4 Chronic kidney disease, stage 4 (severe)
CPT/HCPCS: 36415; 80069

== ENCOUNTER → 2020-02-12 09:30 | Outpatient (CLI) | payer MEDICARE, BC, SELFPAY ==
[2020-02-12 10:02] LABS: Hematocrit 31.8 % (40-54); Hemoglobin 10.4 g/dL (13.0-16.5); Mean Corp Hgb Conc 32.7 g/dL (32-36); Mean Corpuscular Hgb 30.2 pg (27.0-32.0); Mean Corpuscular Volume 92.4 fL (80-94); Mean Platelet Vol. 9.7 fl (6.2-12.0); Platelet Count 163 K/mm3 (150-450); RBC Distribution Width CV 14.9 % (11.6-14.6); RBC Distribution Width SD 49.8 fl (35.1-43.9); Red Blood Count 3.44 M/mm3 (4.6-6.2)
[2020-02-12 10:44] LABS: PTHIN 59.5 pg/mL (18.4-80.1)
[2020-02-12 11:08] LABS: Albumin, Serum 3.1 g/dL (3.2-5.0); BUN 62 mg/dL (7-18); BUN/Creat Ratio 12.5 RATIO (10-20); Calcium,Total 9.1 mg/dL (8.5-10.1); Chloride 110 mmol/L (98-107); Creatinine, Serum 4.96 mg/dL (0.70-1.30); EST Glomerular Filtration Rate 12 mL/min (>60); Est Glom Filt Rate - Afr Amer 15 mL/min (>60); Glucose 111 mg/dL (74-106); Phosphorus 4.7 mg/dL (2.5-4.9); Potassium 2.9 mmol/L (3.5-5.1); Sodium Level 142 mmol/L (136-145)
== END ==
PROVIDERS: PCP Student in an Organized Health Care Education/Training Program; Referring Provider Internal Medicine Nephrology; Visit Provider Internal Medicine Nephrology
DX: N18.4 Chronic kidney disease, stage 4 (severe) (principal); D50.9 Iron deficiency anemia, unspecified; N25.81 Secondary hyperparathyroidism of renal origin
CPT/HCPCS: 36415; 80069; 83970; 85027

== ENCOUNTER → 2020-02-27 11:36 | Outpatient (CLI) | payer MEDICARE, BC, SELFPAY ==
[2020-02-27 13:00] LABS: Anion Gap 4 (5-15); BUN 47 mg/dL (7-18); BUN/Creat Ratio 10.5 RATIO (10-20); Calcium,Total 9.2 mg/dL (8.5-10.1); Chloride 110 mmol/L (98-107); Creatinine, Serum 4.49 mg/dL (0.70-1.30); EST Glomerular Filtration Rate 14 mL/min (>60); Est Glom Filt Rate - Afr Amer 17 mL/min (>60); Glucose 107 mg/dL (74-106); Potassium 4.3 mmol/L (3.5-5.1); Sodium Level 143 mmol/L (136-145)
== END ==
PROVIDERS: PCP Student in an Organized Health Care Education/Training Program; Referring Provider Internal Medicine Nephrology; Visit Provider Internal Medicine Nephrology
DX: N18.4 Chronic kidney disease, stage 4 (severe) (principal); E87.6 Hypokalemia; N25.81 Secondary hyperparathyroidism of renal origin
CPT/HCPCS: 36415; 80048

== ENCOUNTER → 2020-03-17 10:09 | Outpatient (CLI) | payer MEDICARE, BC, SELFPAY ==
[2020-03-17 11:11] LABS: Hematocrit 33.4 % (40-54); Hemoglobin 10.6 g/dL (13.0-16.5); Mean Corp Hgb Conc 31.7 g/dL (32-36); Mean Corpuscular Hgb 30.5 pg (27.0-32.0); Mean Corpuscular Volume 96.3 fL (80-94); Mean Platelet Vol. 10.1 fl (6.2-12.0); Platelet Count 173 K/mm3 (150-450); RBC Distribution Width CV 13.6 % (11.6-14.6); RBC Distribution Width SD 47.6 fl (35.1-43.9); Red Blood Count 3.47 M/mm3 (4.6-6.2); White Blood Count 5.4 K/mm3 (4.4-11.0)
[2020-03-17 11:37] LABS: PTHIN 355.6 pg/mL (18.4-80.1)
[2020-03-17 11:38] LABS: Albumin, Serum 3.3 g/dL (3.2-5.0); BUN 47 mg/dL (7-18); BUN/Creat Ratio 11.4 RATIO (10-20); Calcium,Total 8.1 mg/dL (8.5-10.1); Chloride 110 mmol/L (98-107); Creatinine, Serum 4.13 mg/dL (0.70-1.30); EST Glomerular Filtration Rate 15 mL/min (>60); Est Glom Filt Rate - Afr Amer 18 mL/min (>60); Glucose 102 mg/dL (74-106); Phosphorus 3.6 mg/dL (2.5-4.9); Potassium 3.8 mmol/L (3.5-5.1); Sodium Level 141 mmol/L (136-145)
== END ==
PROVIDERS: PCP Student in an Organized Health Care Education/Training Program; Referring Provider Internal Medicine Nephrology; Visit Provider Internal Medicine Nephrology
DX: N18.4 Chronic kidney disease, stage 4 (severe) (principal); E87.6 Hypokalemia; N25.81 Secondary hyperparathyroidism of renal origin
CPT/HCPCS: 36415; 80069; 83970; 85027

== ENCOUNTER → 2020-04-03 09:32 | Outpatient (CLI) | payer MEDICARE, BC, SELFPAY ==
--- NOTE | 2020-04-03 09:35 | VDUE_ITS ---
Reason For Study: CKD Stage 5 Right Arm Left Arm Right Cephalic Vein at the wrist measures Left Cephalic Vein at the wrist measures 0.22 x 0.23 cm. 0.23 x 0.24 cm. Right Cephalic Vein in the forearm measures Left Cephalic Vein in the forearm measures 0.27 x 0.26 cm. 0.26 x 0.26 cm. Right Cephalic Vein below antecub measures Left Cephalic Vein below antecub measures 0.25 x 0.25 cm. 0.25 x 0.25 cm. Right Cephalic Vein above antecub measures Left Cephalic Vein above antecub measures 0.29 x 0.29 cm. 0.08 x 0.09 cm. Right Cephalic Vein mid bicep measures 0.34 Left Cephalic Vein at mid bicep measures x 0.35 cm. 0.07 x 0.06 cm. Right Cephalic Vein at the shoulder measures Left Cephalic Vein at the shoulder measures 0.21 x 0.20 cm. 0.06 x 0.06 cm. Right Cephalic vein at shoulder branch, 0.26 Basilic vein at origin measures 0.48 x 0.46 x 0.25 cm. cm. Right Basilic Vein at the origin measures Basilic vein at bicep measures 0.45 x 0.46 0.65 x 0.66 cm. cm. Right Basilic Vein mid bicep measures 0.53 x Basilic vein above antecub measures 0.53 x 0.53 cm. 0.53 cm. Right Basilic Vein above antecub measures Left Brachial artery measures 0.49 x 0.47 cm 0.51 x 0.51 cm. with a velocity of 109.9 cm/sec. Right Brachial artery measures 0.50 x 0.50 Left Radial artery measures 0.20 x 0.21 cm cm with a velocity of 122 cm/sec. with a velocity of 68.2 cm/sec. Right Radial artery measures 0.14 x 0.13 cm with a velocity of 58.3 cm/sec. Interpretation Summary Patent and compressible bilateral upper extremity cephalic and basilic veins is noted. Diminutive left upper arm cephalic vein. Small right radial artery. Borderline left radial artery. Normal diameter and flow bilateral brachial arteries Ordering Physician: Sonia He Referring Physician: Martin Nunez Performed By: Ro Rogers RVT ?
== END ==
PROVIDERS: PCP Student in an Organized Health Care Education/Training Program; Referring Provider Internal Medicine Nephrology; Visit Provider Internal Medicine Nephrology
DX: Z01.818 Encounter for other preprocedural examination (principal); N18.5 Chronic kidney disease, stage 5
CPT/HCPCS: 93970

== ENCOUNTER → 2020-04-23 10:30 | Outpatient (CLI) | payer MEDICARE, BC, SELFPAY ==
[2020-04-23 11:18] LABS: Hemoglobin 10.5 g/dL (13.0-16.5); Mean Corp Hgb Conc 32.8 g/dL (32-36); Mean Corpuscular Hgb 31.2 pg (27.0-32.0); Mean Platelet Vol. 9.8 fl (6.2-12.0); Platelet Count 200 K/mm3 (150-450); RBC Distribution Width CV 13.4 % (11.6-14.6); Red Blood Count 3.37 M/mm3 (4.6-6.2); White Blood Count 5.8 K/mm3 (4.4-11.0)
[2020-04-23 11:48] LABS: Albumin, Serum 3.1 g/dL (3.2-5.0); BUN 46 mg/dL (7-18); BUN/Creat Ratio 12.1 RATIO (10-20); Calcium,Total 9.7 mg/dL (8.5-10.1); Chloride 109 mmol/L (98-107); Creatinine, Serum 3.81 mg/dL (0.70-1.30); EST Glomerular Filtration Rate 17 mL/min (>60); Est Glom Filt Rate - Afr Amer 20 mL/min (>60); Glucose 132 mg/dL (74-106); Potassium 3.3 mmol/L (3.5-5.1); Sodium Level 142 mmol/L (136-145)
[2020-04-24 13:36] LABS: PTHIN 17.7 pg/mL (18.4-80.1)
== END ==
PROVIDERS: PCP Student in an Organized Health Care Education/Training Program; Visit Provider Internal Medicine Nephrology
DX: N18.5 Chronic kidney disease, stage 5 (principal); N25.81 Secondary hyperparathyroidism of renal origin; D50.9 Iron deficiency anemia, unspecified
CPT/HCPCS: 36415; 80069; 83970; 85027

== ENCOUNTER → 2020-06-11 14:06 | Outpatient (CLI) | payer MEDICARE, BC, SELFPAY ==
[2020-06-11 14:35] LABS: 24HR. UA Prot. Total Volume 1850 mL; Urine Protein (24 Hour) 71.3 mg/dL (<11.9)
[2020-06-11 14:53] LABS: Hematocrit 32.5 % (40-54); Mean Corp Hgb Conc 30.8 g/dL (32-36); Mean Corpuscular Volume 100.6 fL (80-94); Mean Platelet Vol. 9.3 fl (6.2-12.0); Platelet Count 219 K/mm3 (150-450); RBC Distribution Width CV 14.7 % (11.6-14.6); RBC Distribution Width SD 53.9 fl (35.1-43.9); Red Blood Count 3.23 M/mm3 (4.6-6.2)
[2020-06-11 15:06] LABS: Creat.Clear Total Volume 1850 mL; Creatinine Clearance 26 ml/min (100-200); Creatinine Serum Creat 3.3 mg/dL (0.8-1.3); Creatinine Urine 66.9 mg/dL (NO RANGE EST.); EST Glomerular Filtration Rate 20 mL/min (>60); Est Glom Filt Rate - Afr Amer 24 mL/min (>60)
[2020-06-11 15:07] LABS: PTHIN 338.7 pg/mL (18.4-80.1)
[2020-06-11 15:10] LABS: Albumin, Serum 3.2 g/dL (3.2-5.0); BUN 35 mg/dL (7-18); BUN/Creat Ratio 10.7 RATIO (10-20); Calcium,Total 8.1 mg/dL (8.5-10.1); Chloride 110 mmol/L (98-107); Creatinine, Serum 3.26 mg/dL (0.70-1.30); EST Glomerular Filtration Rate 20 mL/min (>60); Est Glom Filt Rate - Afr Amer 24 mL/min (>60); Ferritin 217 ng/mL (26-388); Glucose 194 mg/dL (74-106); Iron 54 ug/dL (65-175); Iron Binding Capacity,Total 357 ug/dL (250-450); PERCENT IRON SATURATION 15.1 % (15.0-55.0); Phosphorus 2.8 mg/dL (2.5-4.9); Potassium 4.1 mmol/L (3.5-5.1); Sodium Level 143 mmol/L (136-145)
== END ==
PROVIDERS: PCP Student in an Organized Health Care Education/Training Program; Visit Provider Internal Medicine Nephrology
DX: N18.5 Chronic kidney disease, stage 5 (principal); D50.9 Iron deficiency anemia, unspecified; N25.81 Secondary hyperparathyroidism of renal origin
CPT/HCPCS: 36415; 80069; 81050; 82575; 82728; 83540; 83550; 83970; 84156; 85027

== ENCOUNTER → 2020-06-27 13:20 | Outpatient (CLI) | payer MEDICARE, BC, SELFPAY ==
[2020-06-27 13:49] VITALS: BP 171/70; PULSE 71; RESP 16; TEMP 36.8; O2SAT 93; BMI 37.8
[2020-06-27] MEDS: 0.9% NaCl IVPB Med Flush (250 mL) 15 ML IV (14:06)
[2020-06-27 14:45] VITALS: BP 191/71; PULSE 68; RESP 16; TEMP 37; O2SAT 94
[2020-06-27] MEDS: 0.9% NaCl Peripheral Flush Adult/Peds IV (15:14)
[2020-06-27 15:26] VITALS: BP 183/60; PULSE 68; RESP 16; TEMP 37; O2SAT 94
== END ==
PROVIDERS: PCP Student in an Organized Health Care Education/Training Program; Referring Provider Internal Medicine Nephrology; Visit Provider Internal Medicine Nephrology
DX: D64.9 Anemia, unspecified (principal)
CPT/HCPCS: 96365; J1756; J7050; A4216

== ENCOUNTER 2020-07-02 12:17 | Inpatient (IN) | payer MEDICARE, BC, SELFPAY ==
[2020-06-27 13:49] VITALS: BMI 37.8
[2020-07-02] VITALS (12 sets, daily range): BP systolic 162–203; BP diastolic 67–85; PULSE 54–66; RESP 16–28; TEMP 36.4–37.1; O2SAT 74–100; BMI 37.4; BMI 37.5
--- NOTE | 2020-07-02 12:42 | EKG12_ITS ---
Test Reason : SOB Blood Pressure : / mmHG Vent. Rate : 058 BPM Atrial Rate : 058 BPM P-R Int : 216 ms QRS Dur : 152 ms QT Int : 482 ms P-R-T Axes : 012 -60 -18 degrees QTc Int : 473 ms Sinus bradycardia with 1st degree A-V block Left axis deviation Right bundle branch block Abnormal ECG Confirmed by CARIE BYERS, MADHU ([id number]), film and video editor KEVIN MARIE ([id number]) on 07/07/2020 11:00:38 AM Referred By: WILLIE Confirmed By:JEET DARNELL MD
--- NOTE | 2020-07-02 12:45 | ED.DCSUM_ITS ---
- ER Visit Summary Date of Service: 07/02/20 Chief Complaint: Cough and shortness of breath History of Present Illness: The patient is a [address] Nunez. He has a history of end-stage renal disease, but is not on peritoneal dialysis at this time. He sees Dr. He for this. He has a history of lymphoma and bladder cancer and sees Dr. Mccain for this. He reports that he is in remission. Patient complains of a cough that began approximately 3 weeks ago. States this only happens 1-2 times per day. It is reductive of clear sputum that he has a difficult time bringing up. He denies any blood in his sputum. However, he reports that he is short of breath. This is severe with exertion. Is unchanged with laying flat. Patient does wear a mask. He denies sick contacts. Patient denies any fever, chills, or chest pain. He reports this is similar to when he had pneumonia in the past. Physical Examination: Vitals: 97.5, 162/67, 61, 18, 90% on room air which is hypoxic. General: Well-nourished and well-developed. Head: Normocephalic atraumatic. Neck: Supple, no lymphadenopathy. No JVD. Nontender. Cardiovascular: Regular rate and rhythm. 2 out of 6 systolic murmur. Respiratory: Mild respiratory distress. Clear to auscultation bilaterally. Decreased air movement. Abdominal: Soft, nontender, nondistended, normal bowel sounds. No guarding, rebound, or peritoneal signs. Back: Nontender. Extremities: Nontender, 2+ pitting edema lower extremities bilaterally. Skin: Normal color, no rash. Neurologic: Alert and oriented ?3. Cranial nerves II through XII are intact. Normal strength and sensation. Psych: Normal affect. Test Results: EKG shows sinus bradycardia at a rate of 58 with a first-degree AV block. Nonspecific ST changes. Is unchanged from October 202019. CBC shows an H&H 10.0 and 31.7, segmented for 74, lymphocytes 13. Chem-7 shows a sodium 146, chloride 115, BUN 34, creatinine 3.2. Creatinine is been 2.67?4.69 2019. Troponin 0 0.289. His last troponin in October 2019 was 0.501. In 2017 it was 0.2?0.24. BNP is 1073.5. Clinical Impression(s) from Imaging Studies Chest X-Ray 07/02/20 13:20 IMPRESSION: Cardiomegaly. Increased interstitial markings lung bases. Follow-up recommended Electronically Signed: Rd Hernandez, at 14:02 EST , Service support , Emergency Department Course and Treatment: Patient's pulse ox was 90% on room air when he came in. He was placed on 2 L of nasal cannula oxygen and his pulse ox is 93% at rest. Treatment Plan: Patient was discussed with Dr. James. He will be admitted to the hospital for further evaluation and treatment. Disposition: Admitted in improved condition. Impression: 1. CHF. 2. Anemia. 3. Chronic renal insufficiency. 4. Elevated troponin. 5. Hypoxia. This note was generated with [employer] dictation software. It may contain incorrect words, spelling, and punctuation that were not noted in review of the chart prior to signing ED Disposition - Plan for ED Patient: Referrals: Martin Nunez DO [Primary Care Provider] -
--- NOTE | 2020-07-02 13:20 | RAD_ITS ---
STUDY: X-RAY CHEST REASON FOR EXAM: Male, 74 years old. Sob and coughing up sputum for multiple weeks TECHNIQUE: Single AP portable view of the chest. COMPARISON: Comparison is made with prior study 10/08/2017. FINDINGS: A right-sided irene catheter is in situ with the tip at the junction of the superior vena cava and right atrium. EKG electrodes are seen. Since prior study, there has been an increase in the interstitial markings at both lung bases suggestive of a possible mild degree of CHF. This may also represent scarring. There is no demonstrated pleural abnormality. There is moderate cardiac enlargement. Normal mediastinum and donaldo. Normal visualized pulmonary arteries. There is atherosclerotic calcification of the aortic arch with tortuosity. There are diffuse degenerative changes of the visualized thoracic spine. Normal visualized ribs, clavicles, and shoulders. There is no demonstrated abnormality of the visualized soft tissue structures of the upper abdomen. RAD/Chest 1 View (Portable) IMPRESSION: Cardiomegaly. Increased interstitial markings lung bases. Follow-up recommended Electronically Signed: Rd Hernandez, at 14:02 EST , Service support ,
[2020-07-02 13:34] LABS: Absolute Lymphocyte Count 0.72 X10^3/uL (0.83-4.51); Absolute Neutrophil Count 4.2 X10^3/uL (2.0-7.7); Basophil# 0.03 X10^3/uL; Basophil% 0.5 % (0-1); Eosinophil# 0.12 X10^3/uL; Eosinophils% 2.1 % (0-5); Hematocrit 31.7 % (40-54); Lymphocyte # 0.72 X10^3/ul (4.0); Lymphocyte % 12.7 % (19-41); Mean Corp Hgb Conc 31.5 g/dL (32-36); Mean Corpuscular Hgb 31.3 pg (27.0-32.0); Mean Corpuscular Volume 99.1 fL (80-94); Mean Platelet Vol. 9.4 fl (6.2-12.0); Monocyte# 0.54 X10^3/uL; Monocyte% 9.5 % (0-10); NRBC Flagged by Analyzer 0 % (0-5); Neutrophil # 4.23 X10^3/uL (2.7-7.7); Neutrophil % 74.8 % (47-70); Platelet Count 196 K/mm3 (150-450); RBC Distribution Width CV 14.7 % (11.6-14.6); RBC Distribution Width SD 53.2 fl (35.1-43.9); White Blood Count 5.7 K/mm3 (4.4-11.0)
[2020-07-02 13:57] LABS: Anion Gap 5 (5-15); BUN 34 mg/dL (7-18); BUN/Creat Ratio 10.6 RATIO (10-20); Calcium,Total 8.4 mg/dL (8.5-10.1); Chloride 115 mmol/L (98-107); EST Glomerular Filtration Rate 20 mL/min (>60); Est Glom Filt Rate - Afr Amer 25 mL/min (>60); Estimated Creatinine Clearance 20.56 ml/min; Glucose 109 mg/dL (74-106); Potassium 4.1 mmol/L (3.5-5.1); Sodium Level 146 mmol/L (136-145)
[2020-07-02 14:05] LABS: BNP,B-Type NATRIURETIC PEPTIDE 1073.5 pg/mL (0-100)
[2020-07-02 14:09] LABS: Lactic Acid 0.9 mmol/L (0.4-1.9)
--- NOTE | 2020-07-02 14:19 | HP.PCM_ITS ---
Problem List (1) CHF (congestive heart failure) Status: Suspected Qualifiers: Heart failure type: unspecified Heart failure chronicity: acute Qualified Code(s): I50.9 - Heart failure, unspecified (2) HLD (hyperlipidemia) Status: Chronic Qualifiers: Hyperlipidemia type: unspecified Qualified Code(s): E78.5 - Hyperlipidemia, unspecified (3) Bladder cancer Status: Chronic Qualifiers: Bladder location: unspecified site Qualified Code(s): C67.9 - Malignant neoplasm of bladder, unspecified (4) CKD (chronic kidney disease) stage 4, GFR 15-29 ml/min Status: Chronic (5) Elevated troponin Status: Chronic (6) Essential hypertension Status: Chronic (7) Lymphoma Status: Resolved Qualifiers: Lymphoma type: unspecified type Lymphoma site: unspecified region Qualified Code(s): C85.90 - Non-Hodgkin lymphoma, unspecified, unspecified site History of Present Illness Date of Admission: 07/02/20 Chief Complaint: Dyspnea, cough The patient is a 74 y/o M w/ PMHx: Chronic anemia receiving Venofer per Dr. He, Hx DVT/PE s/p IVCF placement, CKD stage IV with in place peritoneal dialysis access in case of need and maturing AVF, Hx DVT and PE, HTN, HLD, Hx Bladder CA, Lymphoma with pancytopenia who presents to the [facility] ED on 07/02/20 with history of ongoing dyspnea, worse with exertion with occasional cough, non-productive, no specific weight gain but denies weighing himself and mild appearance of orthopnea while evaluating in the ED over the last 2 weeks prompting eventual ED presentation. He has not seen a imaging technician recently and denies having a specific physician. He did have recent right upper extremity aVF per Yeyo Flynn at [facility] 04/2020 which has been continuing to mature and needs reevaluated prior to any usage with also in place peritoneal dialysis access in case of need. He denies any recent fever, chills, nausea, emesis, abdominal cramping, diarrhea, headaches, alteration to his sense of taste or smell, body aches. He denies any recent ill contacts. Work-up in the ED included T 97.5, heart rate 61, BP initially 162/67 however repeat 202/76, respiratory rate 18, 90% on room air with improvement to 94% on 2 L nasal cannula however oxygenation assessment in ED did demonstrate 74% on room air, CBC with WC 5.7, hemoglobin 10, platelet 196 with lymphopenia, BMP with sodium 146, chloride 115, BUN/creatinine 34/3.20, glucose 109, lactic acid 0.9, troponin 0.289, BNP 1073.5, rapid Covid antigen negative, blood culture x2 per ED pending, chest x- ray with cardiomegaly with increased interstitial markings at the lung bases, EKG with sinus bradycardia with first-degree AV block with nonspecific ST changes with no acute evidence of ischemia. Past Medical History Past Medical History (Chronic Problems): Chronic Problems (Last Reviewed 11/07/19 @ 16:[address] Cristian Nazario MD) HLD (hyperlipidemia) (Chronic) Bladder cancer (Chronic) CKD (chronic kidney disease) stage 4, GFR 15-29 ml/min (Chronic) Elevated troponin (Chronic) Essential hypertension (Chronic) Medical History: Medical History (Last Reviewed 11/07/19 @ 16:[address] Cristian Nazario MD) CKD (chronic kidney disease) stage 4, GFR 15-29 ml/min (Chronic) N18.4 Preop cardiovascular exam (Acute) Z01.810 Elevated troponin (Acute) R79.89 Essential hypertension (Chronic) I10 Pancytopenia (Acute) D61.818 Neutropenic fever (Acute) D70.9, R50.81 Lymphoma (Resolved) C85.90 Acute kidney injury (Acute) N17.9 Renal calculus N20.0 VTE (venous thromboembolism) I82.90 Anemia D64.9 History of solitary pulmonary nodule Z87.898 Bladder cancer C67.9 History of DVT (deep vein thrombosis) Z86.718 History of pulmonary embolism Z86.711 Left upper chest discomfort (Resolved) Lower gastrointestinal bleeding (Resolved) K92.2 Lymphoma C85.90 Shortness of breath (Resolved) R06.02 Allergies enoxaparin [From Lovenox] Allergy (Verified 07/02/20 12:22) Other HIT heparin Allergy (Verified 07/02/20 12:22) Other HIT aspirin Adverse Reaction (Verified 07/02/20 12:22) Other BLEEDING Iodinated Contrast Media [CONTRASTS] Adverse Reaction (Verified 07/02/20 12:22) OTHER CAN'T BECAUSE OF KIDNEYS Home Medications: Ambulatory Orders Medication Instructions Recorded Carvedilol [Coreg (Beta Rick)] 6.25 mg PO DAILY 04/24/17 ferrous sulfate 325 mg (65 mg 65 mg PO TIDCM tab 11/06/19 iron) tablet amlodipine 5 mg tablet 5 mg PO DAILY 11/07/19 Calcitriol [Rocaltrol] 0.25 mcg PO DAILY 07/02/20 Polyethylene Glycol 3350 [Miralax] 17 gm PO DAILY 07/02/20 Potassium Chloride [Klor-Con M10] 10 meq PO DAILY 07/02/20 Vitamin B Complex 1 tab PO DAILY 07/02/20 Surgical History: Surgical History (Last Reviewed 11/07/19 @ 16:[address] Cristian Nazario MD) H/O total cystectomy Z90.6 History of cataract extraction Z98.49 History of corrected cleft lip and palate Z87.730 History of tonsillectomy Z90.89 Surgical History: cataract, tonsillectomy, - - Bladder removal due to bladder cancer with reconstruction of a bladder, bilateral cataract surgery, tonsillectomy, had a lip repair and reconstruction, peritoneal dialysis access, right upper extremity AVF 04/2020. Psychiatric History: No pertinent psych hx Lives: Alone Smoking Status: Former smoker - Patient quit cigarette tobacco usage at age 63, started when he was 19 years old and prior to quitting smoked 1.5 to 2 pack/day cigarette tobacco. Tobacco Use: Non-smoker Alcohol: None Drugs: None - *Family History Maternal Family History: Family History (Last Reviewed 11/07/19 @ 16:[address] Cristian Nazario MD) Father Cancer Brother Cancer History Items: - - Patient denies any market maternal family history including heart disease, diabetes, cancer. Notes she was very healthy. Paternal Family History: Family History (Last Reviewed 11/07/19 @ 16:[address] Cristian Nazario MD) Father Cancer Brother Cancer History Items: Cancer - Father with history of lung cancer, tobacco use history., Pulmonary Disease Review of Systems Constitutional: Reports: Fatigue. Denies: Anorexia, Chills, Fever, Malaise, Weakness, Weight Change HEENT: Denies: Head Aches, Sinus Congestion, Sinus Drainage Cardiovascular: Reports: Edema, Orthopnea. Denies: Chest Pain, Chest Pressure, Chest Tightness, Light Headedness, Palpitations, Syncope Respiratory: Reports: Cough, Shortness of Breath, Shortness of breath upon exertion. Denies: Shortness of breath at rest, Sputum production, Wheezing Gastrointestinal: Denies: Abdominal Pain, Nausea, Vomiting Genitourinary: Denies: Dysuria Musculoskeletal: Reports: Joint Pain. Denies: Joint Tenderness Skin: Denies: Rash, Wounds Neurological: Denies: Numbness, Tingling, Focal weakness Psychiatric: Denies: Anxiety, Depression, Homicidal Ideations, Suicidal Ideations Hematologic/ Lymphatic: Reports: Anemia, Hx of blood clot. Denies: Easy Bruising, Easy Bleeding VTE Information - Inpt Only VTE Present on Admission: No VTE Mechan Device Prophylaxis: SCD's VTE Pharm Prophylaxis ordered?: Yes Patient Problems: Active and Suspected Problems (Last Reviewed 11/07/19 @ 16:[address] Cristian Nazario MD) CHF (congestive heart failure) (Suspected) Subjective: Patient seated upright in the ED bed, fatigued appearing, when laid flat appears dyspneic with some increased work of breathing. Objective: Physical Examination: General: awake, alert, oriented x 3 and cooperative, seated upright in the ED bed, fatigued otherwise no acute distress, some dyspnea when laid flat. Skin: normal color, turgor, no icterus, cyanosis. HEENT: AT/NC, EOMI, PERRLA, MMM, no carotid bruits, difficult to assess JVD given thickened neck. Lungs: Diminished breath sounds, throughout, greater bases, moderate effort, some increased work of breathing evident when laying flat but otherwise no acute distress, no obvious rales, ronchi or wheezing. Heart: Bradycardic with regular rhythm; no gallop, rub audible, + SM. Abdomen: soft, obese, NTTP, ND, normal BS, difficult to assess HSM given habitus. Extremities: no cyanosis or clubbing, mild bilateral ankle edema. Neurological: patient awake, alert, oriented as noted; cognitive function intact; pupils equally reactive to light and accomodation; cranial nerves II-XII grossly normal, moving all 4 extremities, no focal deficits, strength mildly to moderately global decrease secondary to acute complaints. Psychiatric: affect appears mildly fatigued otherwise normal, no acute evidence of depressive or anxiety feelings. - Physical Exam Vitals/I&O's: Vital Signs Temp Pulse Resp BP Pulse Ox 97.5 F L 64 21 H 202/76 H 94 07/02/20 12:19 07/02/20 14:16 07/02/20 14:16 07/02/20 14:16 07/02/20 14:16 Oxygen Flow Rate (L/min) 2 Oxygen Delivery Method Nasal Cannula Weight: 253 lb 8.505 oz Body Mass Index (BMI) 37.4 Microbiology Past 72 Hours 07/02/20 13:00 Mucosa - Nose SARS-CoV-2 Antigen (Rapid) - Final Laboratory Results 07/02/20 13:20: WBC 5.7, RBC 3.20 L, Hgb 10.0 L, Hct 31.7 L, MCV 99.1 H, MCH 31.3, MCHC 31.5 L, RDW Std Deviation 53.2 H, RDW Coeff of Lencho 14.7 H, Plt Count 196, MPV 9.4, Immature Gran % (Auto) 0.400, Neut % (Auto) 74.8 H, Lymph % (Auto) 12.7 L, [place] % (Auto) 9.5, Eos % (Auto) 2.1, Baso % (Auto) 0.5, Absolute Neuts (auto) 4.2, Absolute Lymphs (auto) 0.72 L, Nucleated RBC % 0 07/02/20 13:20: Sodium 146 H, Potassium 4.1, Chloride 115 H, Carbon Dioxide 26.0, Anion Gap 5, BUN 34 H, Creatinine 3.20 H, Estim Creat Clear Calc 20.56, Est GFR (MDRD) Af Amer 25 L, Est GFR (MDRD) Non-Af 20 L, BUN/Creatinine Ratio 10.6, Glucose 109 H, Calcium 8.4 L, Troponin I 0.289 H 07/02/20 13:20: Lactic Acid 0.9 07/02/20 13:20: B-Natriuretic Peptide 1073.5 H Assessment/Plan All Active Problems (Last Reviewed 11/07/19 @ 16:[address] Cristian Nazario MD) Left ureteral calculus (Acute) Preop cardiovascular exam (Acute) Pancytopenia (Acute) Neutropenic fever (Acute) Lymphoma (Resolved) Acute kidney injury (Acute) Left upper chest discomfort (Resolved) Lower gastrointestinal bleeding (Resolved) Shortness of breath (Resolved) The patient is a 74 y/o M w/ PMHx: Chronic anemia receiving Venofer per Dr. He, Hx DVT/PE s/p IVCF placement, CKD stage IV with in place peritoneal dialysis access in case of need and maturing AVF, Hx DVT and PE, HTN, HLD, Hx Bladder CA, Lymphoma with pancytopenia who presents to the [facility] ED on 07/02/20 with history of ongoing dyspnea, worse with exertion with occasional cough, non-productive, no specific weight gain but denies weighing himself and mild appearance of orthopnea while evaluating in the ED over the last 2 weeks prompting eventual ED presentation. 1. Acute Hypoxia Suspected secondary to Acute Decompensated CHF, complicated by #2: CXR obtained in the ED w/ cardiomegaly with increased interstitial markings at the lung bases. Patient administered IV lasix in the ED, will admit to PCU, maintain on cardiac telemetry, obtain cardiac enzyme series, obtain serial EKGs, continue IV lasix diuresis whil closely monitoring renal function, monitor I/Os, maintain on intake restriction, continue medical therapy with asa, coreg, not on statin, nor ACEI/ARB secondary to underlying renal disease. Will obtain TSH and magnesium level. Most recent ECHO noted 2018 and not marked at that time, will repeat. May consider Cardiology consultation. PRN morphine to decrease afterload, continue oxygen supplementation, if necessary will position w/ upright position with legs off bed to decrease preload. If unremarkable amada earance despite diuresis and ECHO not marked appearing, may necessitate further evaluation for possible recurrent PE as etiology, thus to be cautious given renal function will request LE DVT US. 2. Chronic Kidney Disease Stage IV: Patient with right upper extremity maturing AVF, PD access in place in case of need but has not received, admission BUN/Cr 34/3.20, baseline renal function 3.7-4.4, repeat BMP in AM. Patient's mohs surgeon/general dermatologist currently not available but if necessary may consider consulting alternate group at this current time. 3. Chronic anemia: MCV mildly elevated, initial hemoglobin 10, baseline appears similar, continue to trend, receives of Venofer per Dr. He on an outpatient basis. 4. Chronically elevated cardiac troponin: Admission troponin 0 0.289, noted to be elevated in the past 0.2 0.5, continue evaluation as noted above. 5. Hypertension: Continue home regimen including Coreg, amlodipine, may necessitate additional regimen given elevated BPs upon presentation, using as noted #1 IV Lasix currently, PRN hydralazine. 6. Hyperlipidemia: Not on regimen, defer to outpatient. 7. History of bladder CA: s/p resection and reconstructive surgery, remission. 8. History of lymphoma: Status post treatment, in remission per his report, encourage continued routine follow-up with his oncologist. 9. History of DVT/PE: s/p prior IVCF placement, had been on xarelto with history of GI bleed, off currently. 10. 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 CODE status: Patient DEANNA is his son Paul Rizvi and living will is currently in place per his report but following discussions suspect that he is referring to his will of estate and recommended he discuss with SW/CM. Discussed CODE status at length including difference between FULL code, DNR-CCA and DNR-CC status. Following discussions about the differences in these status, requested Full Code status. Advanced Care Planning Face to Face Time: 16 minutes. Inpatient E&M: 09073 Init Hosp L3 Procedures: 73408 Advncd Care Plan 30 Min
--- NOTE | 2020-07-02 14:33 | NURSING ---
PCU CHF WHITE
--- NOTE | 2020-07-02 14:41 | ED.RN ---
PT SPO2 DROPPED TO 74% WHILE STANDING BESIDE BED USING URINAL WITHOUT WEARING O2. PT FELT DIZZY. AWARE.
[2020-07-02] MEDS: Furosemide 100 MG/10 ML Vial 60 MG IV ×2 (14:47→17:47)
--- NOTE | 2020-07-02 15:09 | PCS.PANDOC ---
PANDEMIC DOCUMENTATION INITIATED: Date:07/02/2020 Time: 1500
--- NOTE | 2020-07-02 15:21 | VDLE_ITS ---
Reason For Study: Shortness of breath RIGHT LEFT GSV is normal. GSV is normal. CFV is compressible, spontaneous, phasic, CFV is compressible, spontaneous, phasic, competent and demonstrates normal competent, and demonstrates normal augmentation. augmentation. FV is compressible, spontaneous, phasic, FV is compressible, spontaneous, phasic, competent and demonstrates normal competent and demonstrates normal augmentation. augmentation. POP V is compressible, spontaneous, phasic, POP V is compressible, spontaneous, phasic, competent and demonstrates normal competent and demonstrates normal augmentation. augmentation. T/P Trunk is compressible. T/P Trunk is compressible. PTV is compressible. PTV is compressible. RT PerV is compressible. LT PerV is compressible. Procedure This is a venous duplex using B-mode, color flow and spectral Doppler. Exam performed in department. A preliminary report was called and/or faxed to [facility]. Interpretation Summary No evidence for acute deep venous thrombosis bilateral lower extremities with patent and compressible bilateral great saphenous veins. Ordering Physician: Lisa James Referring Physician: Martin Nunez Performed By: Ro Rogers RVT
--- NOTE | 2020-07-02 15:21 | ECHOD_ITS ---
Reason For Study: CHF Procedure This was a 2D Doppler, Color Flow transthoracic echocardiogram. Exam performed portable in patient room. Left Ventricle Normal LV size. The estimated ejection fraction is 60 %. Stage 2 diastolic dysfunction. No regional wall motion abnormalities noted. Right Ventricle Normal RV size. Normal systolic function. Atria The left atrium is moderately enlarged. Normal right atrium. Prominent eustachian valve. No doppler evidence for ASD. Mitral Valve There is no mitral valve stenosis. No mitral valve insufficiency. Tricuspid Valve There is no tricuspid stenosis. No tricuspid valve insufficiency. Unable to estimate RV systolic pressure due to insufficient tricuspid regurgitant envelope. Aortic Valve Trisinus/trileaflet aortic valve. Mild diffuse aortic valve thickening. There is no aortic stenosis. No aortic valve insufficiency. Pulmonic Valve There is no pulmonic valvular stenosis. No pulmonic valve insufficiency. Great Vessels Mildly dilated ascending aorta. Pericardium/Pleural No pericardial effusion. MMode/2D Measurements & Calculations LVIDd: 5.9 cm IVSd: 1.4 cm LVOT diam: 2.0 cm LVIDs: 4.0 cm LVPWd: 1.4 cm LVOT area: 3.1 cm2 RVDd: 3.7 cm FS: 31.6 % Ao root diam: 3.0 cm LAV(MOD-bp): 99.6 ml LVAd ap4: 30.5 cm2 LAV(MOD-bp) Indexed: 43.7 ml/m2 EDV(MOD-sp4): 103.3 ml LAV(MOD-sp2): 91.5 ml EDV(sp4-el): 107.7 ml LAV(MOD-sp4): 90.0 ml LVAs ap4: 15.9 cm2 ESV(MOD-sp4): 35.7 ml ESV(sp4-el): 35.3 ml EF(MOD-sp4): 65.5 % EF(sp4-el): 67.2 % SV(MOD-sp4): 67.6 ml SV(sp4-el): 72.4 ml LA A4 area: 28.7 cm2 LA dimension(2D): 5.1 cm RA A4 area: 20.9 cm2 Time Measurements MV dec time: 0.25 sec Doppler Measurements & Calculations MV E max ramesh: 92.3 cm/sec Lat Peak E' Ramesh: 8.1 cm/sec Med Peak E' Ramesh: 4.3 cm/sec MV A max ramesh: 50.2 cm/sec E/E' lat: 11.4 E/E' med: 21.7 MV E/A: 1.8 Ao V2 max: 175.6 cm/sec LV V1 max: 121.7 cm/sec PA V2 max: 109.2 cm/sec Ao max P.3 mmHg LV V1 max P.9 mmHg CARMEN(V,D): 2.2 cm2 TR max ramesh: 234.7 cm/sec TR max P.0 mmHg Interpretation Summary The estimated ejection fraction is 60 %. Stage 2 diastolic dysfunction. The left atrium is moderately enlarged. Mild diffuse aortic valve thickening. Mildly dilated ascending aorta. Ordering Physician: Lisa James Referring Physician: KAYLI HALLMAN Performed By: Jannette Strickland, [place], RVT
[2020-07-02 15:44] LABS: Magnesium 2.6 mg/dL (1.6-2.6)
[2020-07-02] MEDS: Ferrous Sulfate 325 MG Tablet PO (17:46)
[2020-07-02] MEDS: 0.9% Saline Lock 10 ML Syringe IV (17:47)
[2020-07-02] MEDS: APIXABAN 2.5 MG TABLET PO (22:42)
[2020-07-03] VITALS (13 sets, daily range): BP systolic 132–182; BP diastolic 48–75; PULSE 56–66; RESP 16–18; TEMP 36.4–37.1; O2SAT 92–95
--- NOTE | 2020-07-03 05:55 | EKG12_ITS ---
Test Reason : AM EKG Blood Pressure : / mmHG Vent. Rate : 059 BPM Atrial Rate : 059 BPM P-R Int : 188 ms QRS Dur : 168 ms QT Int : 456 ms P-R-T Axes : 088 -68 027 degrees QTc Int : 451 ms Sinus bradycardia with Premature atrial complexes Right bundle branch block Left anterior fascicular block Bifascicular block Abnormal ECG When compared with ECG of 02-JUL-2020 12:58, MANUAL COMPARISON REQUIRED, DATA IS UNCONFIRMED Confirmed by CARIE BYERS, MADHU ([id number]), supervising editor news reel KVEIN MARIE ([id number]) on 07/07/2020 11:17:11 AM Referred By: RIANA Confirmed By:JEET DARNELL MD
[2020-07-03 06:33] LABS: Absolute Lymphocyte Count 0.92 X10^3/uL (0.83-4.51); Absolute Neutrophil Count 4.1 X10^3/uL (2.0-7.7); Basophil# 0.03 X10^3/uL; Basophil% 0.5 % (0-1); Eosinophil# 0.15 X10^3/uL; Eosinophils% 2.6 % (0-5); Hematocrit 31.5 % (40-54); Hemoglobin 10.1 g/dL (13.0-16.5); Lymphocyte # 0.92 X10^3/ul (4.0); Lymphocyte % 15.9 % (19-41); Mean Corp Hgb Conc 32.1 g/dL (32-36); Mean Corpuscular Hgb 31.1 pg (27.0-32.0); Mean Corpuscular Volume 96.9 fL (80-94); Mean Platelet Vol. 9.7 fl (6.2-12.0); Monocyte# 0.56 X10^3/uL; Monocyte% 9.7 % (0-10); NRBC Flagged by Analyzer 0 % (0-5); Neutrophil # 4.09 X10^3/uL (2.7-7.7); Platelet Count 211 K/mm3 (150-450); RBC Distribution Width CV 14.3 % (11.6-14.6); RBC Distribution Width SD 50.4 fl (35.1-43.9); Red Blood Count 3.25 M/mm3 (4.6-6.2); White Blood Count 5.8 K/mm3 (4.4-11.0)
[2020-07-03 07:11] LABS: ALB/GLOB Ratio 0.8 RATIO (0.9-2.4); AST(SGOT) 11 U/L (15-37); Alanine Aminotransfer ALT/SGPT 14 U/L (16-61); Albumin, Serum 2.9 g/dL (3.2-5.0); Alkaline Phosphatase 77 U/L (45-117); Anion Gap 6 (5-15); BUN 39 mg/dL (7-18); BUN/Creat Ratio 11.2 RATIO (10-20); Chloride 108 mmol/L (98-107); Cholesterol 134 mg/dL (200); Creatinine, Serum 3.48 mg/dL (0.70-1.30); EST Glomerular Filtration Rate 18 mL/min (>60); Est Glom Filt Rate - Afr Amer 22 mL/min (>60); Estimated Creatinine Clearance 18.91 ml/min; Globulin 3.6 g/dL (2.2-4.2); Glucose 96 mg/dL (74-106); High Density Lipoprotein 48 mg/dL; Potassium 3.2 mmol/L (3.5-5.1); Protein, Total 6.5 g/dL (6.4-8.2); Sodium Level 141 mmol/L (136-145); Triglycerides 92 mg/dL; Very Low Density Lipoprotein 18 mg/dL (5-40)
[2020-07-03] MEDS: Furosemide 100 MG/10 ML Vial 60 MG IV (08:50)
[2020-07-03] MEDS: 0.9% Saline Lock 10 ML Syringe IV (08:51)
[2020-07-03] MEDS: Carvedilol 6.25 MG Tablet PO (08:52)
[2020-07-03] MEDS: Ferrous Sulfate 325 MG Tablet PO ×3 (08:52→16:04)
[2020-07-03] MEDS: Polyethylene Glycol 3350 17 GM PACKET PO (08:53)
[2020-07-03] MEDS: amLODIPine 5 MG Tablet PO (08:53)
[2020-07-03] MEDS: APIXABAN 2.5 MG TABLET PO ×2 (08:53→22:27)
[2020-07-03] MEDS: Calcitriol 0.25 MCG Capsule PO (08:53)
--- NOTE | 2020-07-03 13:19 | PN_ITS ---
<Ciarra Lynne PLODDER OPERATOR - Last Filed: 07/03/20 13:28> Patient Problems: Active and Suspected Problems (Last Reviewed 11/07/19 @ 16:[address] Cristian Nazario MD) CHF (congestive heart failure) (Suspected) Subjective: Patient seen and examined. Reports improvement in shortness of breath. Remains on supplemental oxygen. Denies chest pain or other current symptoms or complaints. - Physical Exam Vitals/I&O's: Vital Signs Temp Pulse Resp BP Pulse Ox 97.5 F L 60 18 132/48 H 92 07/03/20 11:10 07/03/20 11:10 07/03/20 11:10 07/03/20 11:10 07/03/20 11:10 Oxygen Flow Rate (L/min) 2 Oxygen Delivery Method Room Air Weight: 247 lb 12.793 oz Body Mass Index (BMI) 37.5 Intake and Output for Last 24 Hours 07/01/20 07/02/20 07/03/20 23:59 23:59 23:59 Intake Total 340 / 340 440 / 440 Output Total 3150 / 3150 1500 / 1500 Balance -2810 / -2810 -1060 / -1060 General: Alert, Oriented x3, Cooperative HEENT: Atraumatic, PERRLA, EOMI, Normocephalic Neck: Supple, No JVD, Negative Carotid Bruits Lungs: Clear to auscultation, Diminished Cardiovascular: Regular rate, No murmurs Abdomen: Bowel Sounds Present, Soft, Non Tender, Non-Distended, Obese Extremities: No clubbing, No cyanosis, No edema, Capillary Refill Less than 3 Seconds Skin: No rashes, No breakdown Musculoskeletal: No Tenderness to Palpation of Joints or Extremities Neurological: Cranial nerves II-XII grossly intact, Neuro grossly intact Psych/Mental Status: Normal Affect, Appropriate Microbiology Past 72 Hours 07/02/20 13:00 Mucosa - Nose SARS-CoV-2 Antigen (Rapid) - Final Laboratory Results 07/02/20 13:20: WBC 5.7, RBC 3.20 L, Hgb 10.0 L, Hct 31.7 L, MCV 99.1 H, MCH 31.3, MCHC 31.5 L, RDW Std Deviation 53.2 H, RDW Coeff of Lencho 14.7 H, Plt Count 196, MPV 9.4, Immature Gran % (Auto) 0.400, Neut % (Auto) 74.8 H, Lymph % (Auto) 12.7 L, [place] % (Auto) 9.5, Eos % (Auto) 2.1, Baso % (Auto) 0.5, Absolute Neuts (auto) 4.2, Absolute Lymphs (auto) 0.72 L, Nucleated RBC % 0 07/02/20 13:20: Sodium 146 H, Potassium 4.1, Chloride 115 H, Carbon Dioxide 26.0, Anion Gap 5, BUN 34 H, Creatinine 3.20 H, Estim Creat Clear Calc 20.56, Est GFR (MDRD) Af Amer 25 L, Est GFR (MDRD) Non-Af 20 L, BUN/Creatinine Ratio 10.6, Glucose 109 H, Calcium 8.4 L, Troponin I 0.289 H 07/02/20 13:20: Lactic Acid 0.9 07/02/20 13:20: B-Natriuretic Peptide 1073.5 H 07/02/20 13:20: Magnesium 2.6 07/02/20 16:55: Troponin I 0.288 H 07/02/20 19:45: Troponin I 0.264 H 07/03/20 05:55: WBC 5.8, RBC 3.25 L, Hgb 10.1 L, Hct 31.5 L, MCV 96.9 H, MCH 31.1, MCHC 32.1, RDW Std Deviation 50.4 H, RDW Coeff of Lencho 14.3, Plt Count 211, MPV 9.7, Immature Gran % (Auto) 0.300, Neut % (Auto) 71.0 H, Lymph % (Auto) 15.9 L, [place] % (Auto) 9.7, Eos % (Auto) 2.6, Baso % (Auto) 0.5, Absolute Neuts (auto) 4.1, Absolute Lymphs (auto) 0.92, Nucleated RBC % 0 07/03/20 05:55: Sodium 141, Potassium 3.2 L, Chloride 108 H, Carbon Dioxide 27.0, Anion Gap 6, BUN 39 H, Creatinine 3.48 H, Estim Creat Clear Calc 18.91, Est GFR (MDRD) Af Amer 22 L, Est GFR (MDRD) Non-Af 18 L, BUN/Creatinine Ratio 11.2, Glucose 96, Calcium 8.0 L, Total Bilirubin 0.90, AST 11 L, ALT 14 L, Alkaline Phosphatase 77, Total Protein 6.5, Albumin 2.9 L, Globulin 3.6, Albumin/Globulin Ratio 0.8 L, Triglycerides 92, Cholesterol 134, LDL Cholesterol 68, VLDL Cholesterol 18, HDL Cholesterol 48 Current Medications Acetaminophen (Acetaminophen 325 Mg Tablet) 650 mg PO Q6H PRN PRN PRN Reason: Pain Score 1-10/Temp > 100.7 F Al Hydroxide/Mg Hydroxide (Mag Hydrox/Al Hydrox/Simeth 30 Ml Udc) 30 ml PO Q6H PRN PRN PRN Reason: Gastric Burning Albuterol Sulfate (Albuterol 2.5 Mg/3 Ml Vial.Neb.) 2.5 mg INHALATION Q2H PRN PRN PRN Reason: Dyspnea, wheezing Amlodipine Besylate (Amlodipine 5 Mg Tablet) 5 mg PO DAILY [facility] Last Admin: 07/03/20 08:53 Dose: 5 mg Documented by: Apixaban (Apixaban 2.5 Mg Tablet) 2.5 mg PO BID [facility] Last Admin: 07/03/20 08:53 Dose: 2.5 mg Documented by: Aspirin (Aspirin 81 Mg Tab.Chew) 81 mg PO DAILY@0800 [facility] Last Admin: 07/03/20 08:56 Dose: Not Given Documented by: Calcitriol (Calcitriol 0.25 Mcg Capsule) 0.25 mcg PO DAILY [facility] Last Admin: 07/03/20 08:53 Dose: 0.25 mcg Documented by: Carvedilol (Carvedilol 6.25 Mg Tablet) 6.25 mg PO DAILY [facility] Last Admin: 07/03/20 08:52 Dose: 6.25 mg Documented by: Ferrous Sulfate (Ferrous Sulfate 325 Mg Tablet) 325 mg PO TIDCM [facility] Last Admin: 07/03/20 11:14 Dose: 325 mg Documented by: Furosemide (Furosemide 100 Mg/10 Ml Vial) 60 mg IV BID@1000,1800 [facility] Last Admin: 07/03/20 08:50 Dose: 60 mg Documented by: Guaifenesin (Guaifenesin 10 Ml Udc (200mg/10ml)) 20 ml PO Q4H PRN PRN PRN Reason: COUGH Hydralazine HCl (Hydralazine 20 Mg/Ml Vial) 10 mg IV Q4H PRN PRN PRN Reason: SBP > 160 Magnesium Hydroxide (Magnesium Hydroxide 30 Ml Udc) 30 ml PO DAILY PRN PRN PRN Reason: Constipation Melatonin (Melatonin 3 Mg Tablet) 3 mg PO QHS PRN PRN PRN Reason: INSOMNIA Nitroglycerin (Nitroglycerin (Inpatient Use) 0.4 Mg Tab.Subl) 0.4 mg SUBLINGUAL Q5M PRN PRN Reason: CARDIAC/CHEST PAIN Ondansetron HCl (Ondansetron 4 Mg/2 Ml Vial) 4 mg IV Q8H PRN PRN PRN Reason: NAUSEA/VOMITING Polyethylene Glycol (Polyethylene Glycol 3350 17 Gm Packet) 17 gm PO DAILY [facility] Last Admin: 07/03/20 08:53 Dose: 17 gm Documented by: Potassium Chloride (Potassium Chloride 10 Meq Tablet) 10 meq PO DAILYCM [facility] Last Admin: 07/03/20 08:52 Dose: 10 meq Documented by: Prochlorperazine Edisylate (Prochlorperazine 10 Mg/2 Ml Vial) 5 mg IV Q4H PRN PRN PRN Reason: Breakthrough Nausea/Vomiting Psyllium Hydrophilic Mucilloid (Psyllium 1 Packet) 1 packet PO DAILY PRN PRN PRN Reason: Constipation Senna/Docusate Sodium (Senna/Docusate Sodium 1 Tablet) 2 tablet PO BID PRN PRN PRN Reason: Constipation Sodium Chloride (0.9% Saline Lock 10 Ml Syringe) 10 - 40 ml IV UD PRN PRN Reason: SALINE FLUSH Last Admin: 07/03/20 08:51 Dose: 10 ml Documented by: Throat Lozenges (Benzocaine/Menthol 1 Lozenge) 1 lozenge MUCOUS MEM Q2H PRN PRN PRN Reason: SORE THROAT Medical Necessity - Tobacco Use Smoking Status: Former smoker Tobacco Use: Non-smoker Assessment/Plan All Active Problems (Last Reviewed 11/07/19 @ 16:[address] Cristian Nazario MD) Left ureteral calculus (Acute) Preop cardiovascular exam (Acute) Pancytopenia (Acute) Neutropenic fever (Acute) Lymphoma (Resolved) Acute kidney injury (Acute) Left upper chest discomfort (Resolved) Lower gastrointestinal bleeding (Resolved) Shortness of breath (Resolved) 1. Acute hypoxic respiratory insufficiency secondary to acute heart failure with preserved ejection fraction-BNP greater than 1000. Chest x-ray with increased interstitial markings. IV Lasix. Strict I&O. Daily weight. Previous echocardiogram July 2017 demonstrated an EF of 65%. Repeat echocardiogram pending. Walking pulse ox prior to discharge. 2. Chronic kidney disease stage IV-right upper extremity maturing AV fistula. Peritoneal dialysis access in place as well. Continue outpatient follow-up with nephrology. 3. Chronically elevated troponin-appears at baseline compared to prior labs. Echocardiogram ordered as noted above. 4. Chronic anemia-stable, trend CBC. Receives weekly Venofer infusion per nephrology. 5. Hypertension-continue home Coreg, amlodipine. 6. Hyperlipidemia-not on regimen. 7. History of bladder cancer-status post resection and reconstructive surgery. 8. History of lymphoma-in remission. 9. History of DVT/PE-history of IVC filter placement. Previously on Xarelto however this was discontinued due to GI bleed. Duplex ultrasound negative for DVT. DVT prophylaxis-[place] This patient was seen by SONALI Blandon under the supervision of Dr. He. <Ban He - Last Filed: 07/03/20 15:35> Subjective: I agree with the above and the following is a representation of my independent history and physical examination Patient reports a marked improvement in shortness of breath. He is now on room air. States that his sats were the 88 to 92% when last assessed. Now is only complaining of some lightheadedness which is not a normal thing for him at baseline. - Physical Exam Vitals/I&O's: Vital Signs Temp Pulse Resp BP Pulse Ox 97.5 F L 64 18 132/48 H 92 07/03/20 11:10 07/03/20 15:00 07/03/20 11:10 07/03/20 11:10 07/03/20 11:10 Oxygen Flow Rate (L/min) 2 Oxygen Delivery Method Room Air Weight: 112.4 kg Body Mass Index (BMI) 37.5 Intake and Output for Last 24 Hours 07/01/20 07/02/20 07/03/20 23:59 23:59 23:59 Intake Total 340 / 340 440 / 440 Output Total 3150 / 3150 1500 / 1500 Balance -2810 / -2810 -1060 / -1060 General: Alert, Oriented x3, Cooperative, No apparent distress, Well developed, Well nourished, - - Elderly obese white male, lying flat in bed, on room air, appears comfortable HEENT: Atraumatic, PERRLA, EOMI, Normocephalic Oral: Moist Mucosa, No Gingival or Mucosal Lesions/ Ulcerations, - - Dentures in place, Mallampati 3 Neck: Supple, No JVD, Trachea Midline Lungs: No rhonchi, No wheeze, No rales, Diminished - Bilateral bases Cardiovascular: Regular rate, Regular Rhythm, Normal S1, Normal S2, No murmurs, No Ectopic Activity, No rub noted, No Gallop Abdomen: Bowel Sounds Present, Soft, Non Tender, Non-Distended, Obese Extremities: No clubbing, No cyanosis, No edema, Capillary Refill Less than 3 Seconds, Peripheral Pulses Normal Skin: No rashes, No breakdown Musculoskeletal: No Tenderness to Palpation of Joints or Extremities Neurological: Cranial nerves II-XII grossly intact, Neuro grossly intact Psych/Mental Status: Normal Affect, Appropriate, Alert and oriented to time, place, person, mood and affect Microbiology Past 72 Hours 07/02/20 13:00 Mucosa - Nose SARS-CoV-2 Antigen (Rapid) - Final Laboratory Results 07/02/20 13:20: Magnesium 2.6 07/02/20 16:55: Troponin I 0.288 H 07/02/20 19:45: Troponin I 0.264 H 07/03/20 05:55: WBC 5.8, RBC 3.25 L, Hgb 10.1 L, Hct 31.5 L, MCV 96.9 H, MCH 31.1, MCHC 32.1, RDW Std Deviation 50.4 H, RDW Coeff of Lencho 14.3, Plt Count 211, MPV 9.7, Immature Gran % (Auto) 0.300, Neut % (Auto) 71.0 H, Lymph % (Auto) 15.9 L, [place] % (Auto) 9.7, Eos % (Auto) 2.6, Baso % (Auto) 0.5, Absolute Neuts (auto) 4.1, Absolute Lymphs (auto) 0.92, Nucleated RBC % 0 07/03/20 05:55: Sodium 141, Potassium 3.2 L, Chloride 108 H, Carbon Dioxide 27.0, Anion Gap 6, BUN 39 H, Creatinine 3.48 H, Estim Creat Clear Calc 18.91, Est GFR (MDRD) Af Amer 22 L, Est GFR (MDRD) Non-Af 18 L, BUN/Creatinine Ratio 11.2, Glucose 96, Calcium 8.0 L, Total Bilirubin 0.90, AST 11 L, ALT 14 L, Alkaline Phosphatase 77, Total Protein 6.5, Albumin 2.9 L, Globulin 3.6, Albumin/Globulin Ratio 0.8 L, Triglycerides 92, Cholesterol 134, LDL Cholesterol 68, VLDL Cholesterol 18, HDL Cholesterol 48 Current Medications Acetaminophen (Acetaminophen 325 Mg Tablet) 650 mg PO Q6H PRN PRN PRN Reason: Pain Score 1-10/Temp > 100.7 F Al Hydroxide/Mg Hydroxide (Mag Hydrox/Al Hydrox/Simeth 30 Ml Udc) 30 ml PO Q6H PRN PRN PRN Reason: Gastric Burning Albuterol Sulfate (Albuterol 2.5 Mg/3 Ml Vial.Neb.) 2.5 mg INHALATION Q2H PRN PRN PRN Reason: Dyspnea, wheezing Amlodipine Besylate (Amlodipine 5 Mg Tablet) 5 mg PO DAILY [facility] Last Admin: 07/03/20 08:53 Dose: 5 mg Documented by: Apixaban (Apixaban 2.5 Mg Tablet) 2.5 mg PO BID [facility] Last Admin: 07/03/20 08:53 Dose: 2.5 mg Documented by: Aspirin (Aspirin 81 Mg Tab.Chew) 81 mg PO DAILY@0800 [facility] Last Admin: 07/03/20 08:56 Dose: Not Given Documented by: Calcitriol (Calcitriol 0.25 Mcg Capsule) 0.25 mcg PO DAILY [facility] Last Admin: 07/03/20 08:53 Dose: 0.25 mcg Documented by: Carvedilol (Carvedilol 6.25 Mg Tablet) 6.25 mg PO DAILY [facility] Last Admin: 07/03/20 08:52 Dose: 6.25 mg Documented by: Ferrous Sulfate (Ferrous Sulfate 325 Mg Tablet) 325 mg PO TIDCM [facility] Last Admin: 07/03/20 11:14 Dose: 325 mg Documented by: Furosemide (Furosemide 100 Mg/10 Ml Vial) 60 mg IV BID@1000,1800 [facility] Last Admin: 07/03/20 08:50 Dose: 60 mg Documented by: Guaifenesin (Guaifenesin 10 Ml Udc (200mg/10ml)) 20 ml PO Q4H PRN PRN PRN Reason: COUGH Hydralazine HCl (Hydralazine 20 Mg/Ml Vial) 10 mg IV Q4H PRN PRN PRN Reason: SBP > 160 Magnesium Hydroxide (Magnesium Hydroxide 30 Ml Udc) 30 ml PO DAILY PRN PRN PRN Reason: Constipation Melatonin (Melatonin 3 Mg Tablet) 3 mg PO QHS PRN PRN PRN Reason: INSOMNIA Nitroglycerin (Nitroglycerin (Inpatient Use) 0.4 Mg Tab.Subl) 0.4 mg SUBLINGUAL Q5M PRN PRN Reason: CARDIAC/CHEST PAIN Ondansetron HCl (Ondansetron 4 Mg/2 Ml Vial) 4 mg IV Q8H PRN PRN PRN Reason: NAUSEA/VOMITING Polyethylene Glycol (Polyethylene Glycol 3350 17 Gm Packet) 17 gm PO DAILY [facility] Last Admin: 07/03/20 08:53 Dose: 17 gm Documented by: Potassium Chloride (Potassium Chloride 10 Meq Tablet) 10 meq PO DAILYCM [facility] Last Admin: 07/03/20 08:52 Dose: 10 meq Documented by: Prochlorperazine Edisylate (Prochlorperazine 10 Mg/2 Ml Vial) 5 mg IV Q4H PRN PRN PRN Reason: Breakthrough Nausea/Vomiting Psyllium Hydrophilic Mucilloid (Psyllium 1 Packet) 1 packet PO DAILY PRN PRN PRN Reason: Constipation Senna/Docusate Sodium (Senna/Docusate Sodium 1 Tablet) 2 tablet PO BID PRN PRN PRN Reason: Constipation Sodium Chloride (0.9% Saline Lock 10 Ml Syringe) 10 - 40 ml IV UD PRN PRN Reason: SALINE FLUSH Last Admin: 07/03/20 08:51 Dose: 10 ml Documented by: Throat Lozenges (Benzocaine/Menthol 1 Lozenge) 1 lozenge MUCOUS MEM Q2H PRN PRN PRN Reason: SORE THROAT Assessment/Plan ASSESSMENT Acute hypoxic respiratory failure secondary to decompensated HFpEF -resolved Chronic troponin elevation Hypokalemia Chronic macrocytic anemia CKD stage IV Hypertension Hyperlipidemia History of bladder cancer History of lymphoma History of DVT/PE-IVC filter in place History of GI bleed PLAN -Patient now on room air after Lasix -Creatinine has slightly increased and patient complaining of some lightheadedness -We will continue Lasix and monitor clinically -Continue strict I's and O's -Monitor urine output -Continue home medications as ordered -Potassium replacement-repeat BMP in a.m. -ECHO done-EF 65%, stage II diastolic dysfunction, moderate LA enlargement, dilated a sending aorta -will need continued follow-up with aortic dilation -Probable discharge tomorrow if remains stable
--- NOTE | 2020-07-03 13:20 | CASEMGMT ---
KRUPA GOMES assessment: Face to Face with patient for initial transition planning/care coordination assessment. KRUPA GOMES introduced self and role at [facility], pt voices understanding and consents to assessment at this time. Pt is sitting up on side of bed in no distress at this time on room air. Pt is A/Ox4 at this time and answers all questions appropriately at this time. Care providers, pharmacy, and demographics verified at this time. Presentation: Pt w/ SOB/coughing up sputum 'for weeks' Admitting dx: CHF exac, hypoxia PCP: Enrique Specialists: kaz He Pharmacy: [facility] Insurance: [facility] A/B, [place] Prescription Benefit: [employer] Living Will/HPOA: Pt states has LW/HPOA and is aware that they are not on file at [facility] at this time. Pt states his son, Paul Rizvi, is HPOA. LNOK: Paul Rizvi, son/HPOA; Rody Rizvi, [id number] Living Arrangements: Pt states lives alone in 1 story townhouse with no steps in and states no concerns at home at this time. Pt states is independent with ADL's. Transportation: Pt states drives self and states no transportation concerns at this time. DME/HHC: Pt states has grab bars in shower and states no need for any further DME at this time. Pt states has been to SNF in the past s/p bladder surgery but cannot remember name of facility and declines hx of HHC in the past. Pt states no concerns with going home at time of discharge. Pt states is retired. Pt states does not smoke cigarettes or drink ETOH. Pt states no further concerns/needs at this time. CM to follow for any further discharge planning/needs. Advised pt to ask for CM if any further questions/concerns/needs at this time, voices understanding. Pt does state has an OP iron infusion tomorrow at 1300, CM to follow and Geremias ROSENBAUM aware. PT Goal: Home Plan: [place] KRUPA GOMES
[2020-07-04] VITALS (8 sets, daily range): BP systolic 144–155; BP diastolic 61–70; PULSE 53–59; RESP 18; TEMP 36.5–36.8; O2SAT 79–98
[2020-07-04 09:19] LABS: Anion Gap 4 (5-15); BUN 50 mg/dL (7-18); BUN/Creat Ratio 12.7 RATIO (10-20); Calcium,Total 8.3 mg/dL (8.5-10.1); Chloride 112 mmol/L (98-107); Creatinine, Serum 3.93 mg/dL (0.70-1.30); EST Glomerular Filtration Rate 16 mL/min (>60); Est Glom Filt Rate - Afr Amer 19 mL/min (>60); Estimated Creatinine Clearance 16.74 ml/min; Glucose 95 mg/dL (74-106); Potassium 3.4 mmol/L (3.5-5.1); Sodium Level 145 mmol/L (136-145)
[2020-07-04] MEDS: Ferrous Sulfate 325 MG Tablet PO ×2 (09:21→11:19)
[2020-07-04] MEDS: Carvedilol 6.25 MG Tablet PO (09:21)
[2020-07-04] MEDS: APIXABAN 2.5 MG TABLET PO (09:21)
[2020-07-04] MEDS: amLODIPine 5 MG Tablet PO (09:22)
[2020-07-04] MEDS: Polyethylene Glycol 3350 17 GM PACKET PO (09:22)
[2020-07-04] MEDS: Calcitriol 0.25 MCG Capsule PO (09:22)
--- NOTE | 2020-07-04 10:22 | CASEMGMT ---
Per Esther GENTILE, pt does qualify for home oxygen 2L w/ exertion. After provided verbal list of local DME companies, pt chooses [employer] at this time. Script faxed to [facility] at this time and call to [facility] to notify of discharge by 1230 for OP appt, voices understanding and per [place], they will get a tank over right away. Pt has been up in room ad haily and declines need for any HHC or OP therapy at this time. Pt voices no further questions/concerns/needs at this time. Octavia GENTILE CM
--- NOTE | 2020-07-04 10:48 | DCINST_ITS ---
- Discharge Diagnoses Current Active Problems: Current Active and Chronic Problems (Last Reviewed 11/07/19 @ 16:[address] Cristian Nazario MD) HLD (hyperlipidemia) (Chronic) Bladder cancer (Chronic) CKD (chronic kidney disease) stage 4, GFR 15-29 ml/min (Chronic) Elevated troponin (Chronic) Essential hypertension (Chronic) You will use the following diet at home:: Cardiac Discharge Activity: Return to Normal Activity Call your doctor if you observe: Shortness of breath, Dizziness, Fainting spells, Chest pain Allergies/Adverse Reactions: Allergies enoxaparin [From Lovenox] Allergy (Verified 07/02/20 12:22) Other HIT heparin Allergy (Verified 07/02/20 12:22) Other HIT aspirin Adverse Reaction (Verified 07/02/20 12:22) Other BLEEDING Iodinated Contrast Media [CONTRASTS] Adverse Reaction (Verified 07/02/20 12:) OTHER CAN'T BECAUSE OF KIDNEYS Medications to take at Discharge Carvedilol [Coreg (Beta Rick)] 6.25 mg PO DAILY 04/24/17 ferrous sulfate 325 mg (65 mg iron) tablet 325 mg PO TIDCM tab 11/06/19 amlodipine 5 mg tablet 5 mg PO DAILY 11/07/19 Calcitriol [Rocaltrol] 0.25 mcg PO DAILY 07/02/20 Polyethylene Glycol 3350 [Miralax] 17 gm PO DAILY 07/02/20 Potassium Chloride [Klor-Con M10] 10 meq PO DAILY 07/02/20 Vitamin B Complex 1 tab PO DAILY 07/02/20 Cetirizine HCl [Zyrtec] 10 mg PO DAILY #30 cap 07/04/20 Fluticasone 0.05% [Flonase Nasal [place]] 2 spray NASAL DAILY #1 bottle 07/04/20 Furosemide [Lasix] 40 mg PO DAILY #30 tab 07/04/20 The following prescriptions were given: Fluticasone 0.05% [Flonase Nasal [place]] 2 spray NASAL DAILY #1 bottle Transmission Status: Pending to [id number] Furosemide [Lasix] 40 mg PO DAILY #30 tab Transmission Status: Pending to [id number] Cetirizine HCl [Zyrtec] 10 mg PO DAILY #30 cap Transmission Status: Pending to [id number] Primary Care Physician: Martin Nunez DO [Primary Care Provider] - Please follow up with your Primary Care Physician in: 1 Week Test Results: Test results from this visit will be discussed in further detail at your follow- up appointment, if applicable. Please Follow Up With: Sonia He DO When: 1 Week Proposed Discharge Date: 07/04/20
--- NOTE | 2020-07-04 10:50 | DS.PCM_ITS ---
Discharge Date and Diagnosis - Problem List Patient Problems: Active and Suspected Problems (Last Reviewed 11/07/19 @ 16:[address] Cristian Nazario MD) CHF (congestive heart failure) (Suspected) Date of Admission: 07/02/20 Date of Discharge: 07/04/20 - Primary Discharge Diagnosis Acute Problems: 1. Acute hypoxic respiratory insufficiency secondary to acute heart failure with preserved ejection fraction 2. Chronic kidney disease stage IV 3. Chronically elevated troponin 4. Chronic anemia 5. Hypertension 6. Hyperlipidemia 7. History of bladder cancer 8. History of lymphoma 9. History of DVT/PE Suspected Problems: Suspected Problems (Last Reviewed 11/07/19 @ 16:[address] Cristian Nazario MD) CHF (congestive heart failure) (Suspected) - Secondary Discharge Diagnosis Chronic Problems: Chronic Problems (Last Reviewed 11/07/19 @ 16:[address] Cristian Nazario MD) HLD (hyperlipidemia) (Chronic) Bladder cancer (Chronic) CKD (chronic kidney disease) stage 4, GFR 15-29 ml/min (Chronic) Elevated troponin (Chronic) Essential hypertension (Chronic) Hospital Course and Treatment Imaging Results: Diagnostic Data Chest X-Ray 07/02/20 13:20 IMPRESSION: Cardiomegaly. Increased interstitial markings lung bases. Follow-up recommended Electronically Signed: Rd Hernandez, at 14:02 EST , Service support , Operations: None Procedures: 2-D Echocardiogram Summary of Care Provided: The patient is a 74 year old M admitted 07/02/2020 due to dyspnea and cough. 1. Acute hypoxic respiratory insufficiency secondary to acute heart failure with preserved ejection fraction-BNP greater than 1000. Chest x-ray with increased interstitial markings. IV Lasix during admission. Previous echocardiogram July 2017 demonstrated an EF of 65%. Repeat echocardiogram demonstrates an EF of 60%, stage II diastolic dysfunction, mildly dilated ascending aorta. Lasix 40 mg daily at discharge. Will need further follow-up with nephrology. Follow-up with PCP in 1 week. Will need ongoing monitoring of mildly dilated ascending aorta. Patient noted to be hypoxic with ambulation and will require supplemental oxygen at discharge. He is ambulatory in the home. Continue 2 L nasal cannula with ambulation. 2. Chronic kidney disease stage IV-right upper extremity maturing AV fistula. Peritoneal dialysis access in place as well. Continue outpatient follow-up with nephrology. 3. Chronically elevated troponin-appears at baseline compared to prior labs. Echocardiogram did not demonstrate any wall motion abnormality. Patient may benefit from outpatient stress test which can be arranged by PCP if he has not had prior stress test at [facility]. 4. Chronic anemia-stable, trend CBC. Receives weekly Venofer infusion per nephr ology. 5. Hypertension-continue home Coreg, amlodipine. 6. Hyperlipidemia-not on regimen. 7. History of bladder cancer-status post resection and reconstructive surgery. 8. History of lymphoma-in remission. 9. History of DVT/PE-history of IVC filter placement. Previously on Xarelto however this was discontinued due to GI bleed. Duplex ultrasound negative for DVT. General: Alert, Oriented x3, Cooperative HEENT: Atraumatic, PERRLA, EOMI, Normocephalic Neck: Supple, No JVD, Negative Carotid Bruits Lungs: Clear to auscultation, Diminished Cardiovascular: Regular rate, No murmurs Abdomen: Bowel Sounds Present, Soft, Non Tender, Non-Distended, Obese Extremities: No clubbing, No cyanosis, No edema, Capillary Refill Less than 3 Seconds Skin: No rashes, No breakdown Musculoskeletal: No Tenderness to Palpation of Joints or Extremities Neurological: Cranial nerves II-XII grossly intact, Neuro grossly intact Psych/Mental Status: Normal Affect, Appropriate Patient seen and examined prior to discharge. Physical assessment as noted above. Patient is stable for discharge with follow up recommendations as noted above. This patient was seen by SONALI Blandon under the supervision of Dr. Mejia. Patient Problems: Active and Suspected Problems (Last Reviewed 11/07/19 @ 16:[address] Cristian Nazario MD) CHF (congestive heart failure) (Suspected) - Physical Exam Vitals/I&O's: Vital Signs Temp Pulse Resp BP Pulse Ox 98.2 F 59 L 18 144/70 H 93 07/04/20 09:15 07/04/20 09:15 07/04/20 09:15 07/04/20 09:15 07/04/20 09:51 Oxygen Flow Rate (L/min) [ 2 AMBULATION with Oxygen] Oxygen Flow Rate (L/min) [ 0 AMBULATING on Room Air] Oxygen Flow Rate (L/min) [At 0 REST on Room Air] Oxygen Flow Rate (L/min) 2 Oxygen Delivery Method Room Air Weight: 247 lb 12.793 oz Body Mass Index (BMI) 37.5 Intake and Output for Last 24 Hours 07/02/20 07/03/20 07/04/20 23:59 23:59 23:59 Intake Total 340 / 340 680 / 680 Output Total 3150 / 3150 2500 / 2500 Balance -2810 / -2810 -1820 / -1820 Microbiology Past 72 Hours 07/02/20 13:00 Mucosa - Nose SARS-CoV-2 Antigen (Rapid) - Final Laboratory Results 07/04/20 08:42: Sodium 145, Potassium 3.4 L, Chloride 112 H, Carbon Dioxide 29.0, Anion Gap 4 L, BUN 50 H, Creatinine 3.93 H, Estim Creat Clear Calc 16.74, Est GFR (MDRD) Af Amer 19 L, Est GFR (MDRD) Non-Af 16 L, BUN/Creatinine Ratio 12.7, Glucose 95, Calcium 8.3 L Current Medications Acetaminophen (Acetaminophen 325 Mg Tablet) 650 mg PO Q6H PRN PRN PRN Reason: Pain Score 1-10/Temp > 100.7 F Al Hydroxide/Mg Hydroxide (Mag Hydrox/Al Hydrox/Simeth 30 Ml Udc) 30 ml PO Q6H PRN PRN PRN Reason: Gastric Burning Albuterol Sulfate (Albuterol 2.5 Mg/3 Ml Vial.Neb.) 2.5 mg INHALATION Q2H PRN PRN PRN Reason: Dyspnea, wheezing Amlodipine Besylate (Amlodipine 5 Mg Tablet) 5 mg PO DAILY [facility] Last Admin: 07/04/20 09:22 Dose: 5 mg Documented by: Apixaban (Apixaban 2.5 Mg Tablet) 2.5 mg PO BID [facility] Last Admin: 07/04/20 09:21 Dose: 2.5 mg Documented by: Aspirin (Aspirin 81 Mg Tab.Chew) 81 mg PO DAILY@0800 [facility] Last Admin: 07/04/20 09:23 Dose: Not Given Documented by: Calcitriol (Calcitriol 0.25 Mcg Capsule) 0.25 mcg PO DAILY [facility] Last Admin: 07/04/20 09:22 Dose: 0.25 mcg Documented by: Carvedilol (Carvedilol 6.25 Mg Tablet) 6.25 mg PO DAILY [facility] Last Admin: 07/04/20 09:21 Dose: 6.25 mg Documented by: Ferrous Sulfate (Ferrous Sulfate 325 Mg Tablet) 325 mg PO TIDCM [facility] Last Admin: 07/04/20 09:21 Dose: 325 mg Documented by: Guaifenesin (Guaifenesin 10 Ml Udc (200mg/10ml)) 20 ml PO Q4H PRN PRN PRN Reason: COUGH Hydralazine HCl (Hydralazine 20 Mg/Ml Vial) 10 mg IV Q4H PRN PRN PRN Reason: SBP > 160 Magnesium Hydroxide (Magnesium Hydroxide 30 Ml Udc) 30 ml PO DAILY PRN PRN PRN Reason: Constipation Melatonin (Melatonin 3 Mg Tablet) 3 mg PO QHS PRN PRN PRN Reason: INSOMNIA Nitroglycerin (Nitroglycerin (Inpatient Use) 0.4 Mg Tab.Subl) 0.4 mg SUBLINGUAL Q5M PRN PRN Reason: CARDIAC/CHEST PAIN Ondansetron HCl (Ondansetron 4 Mg/2 Ml Vial) 4 mg IV Q8H PRN PRN PRN Reason: NAUSEA/VOMITING Polyethylene Glycol (Polyethylene Glycol 3350 17 Gm Packet) 17 gm PO DAILY [facility] Last Admin: 07/04/20 09:22 Dose: 17 gm Documented by: Potassium Chloride (Potassium Chloride 10 Meq Tablet) [facility] Last Admin: 07/04/20 09:21 Dose: 10 meq Documented by: Prochlorperazine Edisylate (Prochlorperazine 10 Mg/2 Ml Vial) 5 mg IV Q4H PRN PRN PRN Reason: Breakthrough Nausea/Vomiting Psyllium Hydrophilic Mucilloid (Psyllium 1 Packet) 1 packet PO DAILY PRN PRN PRN Reason: Constipation Senna/Docusate Sodium (Senna/Docusate Sodium 1 Tablet) 2 tablet PO BID PRN PRN PRN Reason: Constipation Sodium Chloride (0.9% Saline Lock 10 Ml Syringe) 10 - 40 ml IV UD PRN PRN Reason: SALINE FLUSH Last Admin: 07/03/20 08:51 Dose: 10 ml Documented by: Throat Lozenges (Benzocaine/Menthol 1 Lozenge) 1 lozenge MUCOUS MEM Q2H PRN PRN PRN Reason: SORE THROAT Discharge Diet: Low fat/ Low Cholesterol, 8 Cup Fluid Restriciton Discharge Activity: Return to Normal Activity Call your doctor if you observe: Shortness of breath, Dizziness, Fainting spells, Chest pain Home Medications: Medications to take at Discharge Carvedilol [Coreg (Beta Rick)] 6.25 mg PO DAILY 04/24/17 ferrous sulfate 325 mg (65 mg iron) tablet 325 mg PO TIDCM tab 11/06/19 amlodipine 5 mg tablet 5 mg PO DAILY 11/07/19 Calcitriol [Rocaltrol] 0.25 mcg PO DAILY 07/02/20 Polyethylene Glycol 3350 [Miralax] 17 gm PO DAILY 07/02/20 Potassium Chloride [Klor-Con M10] 10 meq PO DAILY 07/02/20 Vitamin B Complex 1 tab PO DAILY 07/02/20 Cetirizine HCl [Zyrtec] 10 mg PO DAILY #30 cap 07/04/20 Fluticasone 0.05% [Flonase Nasal [place]] 2 spray NASAL DAILY #1 bottle 07/04/20 Furosemide [Lasix] 40 mg PO DAILY #30 tab 07/04/20 Following Prescriptions Were Given to Patient: Fluticasone 0.05% [Flonase Nasal [place]] 2 spray NASAL DAILY #1 bottle Transmission Status: Pending to [id number] Furosemide [Lasix] 40 mg PO DAILY #30 tab Transmission Status: Pending to [facility] [id number] Cetirizine HCl [Zyrtec] 10 mg PO DAILY #30 cap Transmission Status: Pending to [id number] Primary Care Physician: Martin Nunez DO [Primary Care Provider] - Please follow up with your Primary Care Physician in: 1 Week Please Follow Up With: Sonia He DO When: 1 Week Disposition: Home Minutes spent on discharge:: 35 Patient Condition:: Stable Medical Necessity - Tobacco Use Smoking Status: Former smoker Tobacco Use: Non-smoker Meaningful Use Info Meaningful Use Diagnoses (Choose all that apply): CHF - CHF MARCELA/ARB ordered at discharge?: No Reason MARCELA/ARB not ordered?: Worsening renal dysfunctn Documented LVEF (%): 65
--- NOTE | 2020-07-04 11:18 | PHA.DC.MC ---
Pharmacy Service has performed discharge medication reconciliation and counseling for this patient. 1. CETIRIZINE 10MG PO QHS 2. FLUTICASONE NASAL SPRAY 2 SPRAYS IN EACH NOSTRIL DAILY 3. FUROSEMIDE 20MG PO DAILY The patient's discharge medication list was reviewed for discrepancies and discrepancies were resolved. Home Medications Carvedilol [Coreg (Beta Rick)] 6.25 mg PO DAILY 04/24/17 ferrous sulfate 325 mg (65 mg iron) tablet 325 mg PO TIDCM tab 11/06/19 amlodipine 5 mg tablet 5 mg PO DAILY 11/07/19 Calcitriol [Rocaltrol] 0.25 mcg PO DAILY 07/02/20 Polyethylene Glycol 3350 [Miralax] 17 gm PO DAILY 07/02/20 Potassium Chloride [Klor-Con M10] 10 meq PO DAILY 07/02/20 Vitamin B Complex 1 tab PO DAILY 07/02/20 Cetirizine HCl [Zyrtec] 10 mg PO DAILY #30 cap 07/04/20 Fluticasone 0.05% [Flonase Nasal [place]] 2 spray NASAL DAILY #1 bottle 07/04/20 Furosemide [Lasix] 40 mg PO DAILY #30 tab 07/04/20 The patient was counseled on the following discharge medications and changes in medications for homegoing were reviewed. The Reason for Use, instructions for use, and potential side effects were reviewed for all new medications. The patient's questions regarding all of their medications were answered. The patient was able to verbally demonstrate an understanding of their discharge medications. Patient counseled by accredited pharmacy technicianBen.
--- NOTE | 2020-07-08 13:05 | CASEMGMT ---
KRUPA GOMES Discharge F/U Phone Call LACE: Rosey Strata: 3 Discharge date: 07/04/20 Call date: 07/08/20 Call time: [id number] Admission dx: CHF, Hypoxia Pt states has been doing 'fine' since discharge. Pt states no questions regarding discharge instructions or medications at this time. Pt states has f/u with Dr. Nunez tomorrow and plans to keep. Pt also states 'I don't know why you set me up with this oxygen anyway, I don't need it.' Advised pt that his walking pulse ox was 79% and that's too low, pt states 'thats wrong and thats not what it was.' Pt is upset that [employer] will not let him cancel order without Dr. mcdaniel. Advised pt that Dr. Nunez can re-test him tomorrow and cancel if necessary, voices understanding and states 'I will tell her she needs to cancel it.' Pt voices no further questions/concerns/needs at this time. SStaten KRUPA GOMES
== END 2020-07-04 12:38 | disposition home or self-care (01) | DRG 291 ==
LOC: ED 13:08 → PCU 15:32
PROVIDERS: Nurse Practitioner Family; Admitting Provider Family Medicine; Emergency Provider Emergency Medicine; PCP Student in an Organized Health Care Education/Training Program; Visit Provider Internal Medicine
DX: I13.2 Hypertensive heart and chronic kidney disease with heart failure and with stage 5 chronic kidney disease, or end stage renal disease (principal); N18.6 End stage renal disease; I50.33 Acute on chronic diastolic (congestive) heart failure; C85.90 Non-Hodgkin lymphoma, unspecified, unspecified site; D61.818 Other pancytopenia; E78.5 Hyperlipidemia, unspecified; Z85.51 Personal history of malignant neoplasm of bladder; Z86.718 Personal history of other venous thrombosis and embolism; Z86.711 Personal history of pulmonary embolism; Z87.891 Personal history of nicotine dependence; E87.6 Hypokalemia; I77.819 Aortic ectasia, unspecified site
CPT/HCPCS: 36591; 71045; 80048; 80053; 80061; 83605; 83735; 83880; 84484; 85025; 87040; 87426; 93005; 93306; 93970; 99251; 99285; Q9957; A4216; G0463; J1940

== ENCOUNTER → 2020-07-04 12:47 | Outpatient (CLI) | payer MEDICARE, BC, SELFPAY ==
[2020-07-02 15:08] VITALS: BMI 37.5
[2020-07-04 12:53] VITALS: BP 136/54; PULSE 63; RESP 18; TEMP 36.7; O2SAT 93
[2020-07-04] MEDS: 0.9% NaCl IVPB Med Flush (250 mL) 15 ML IV (13:10)
[2020-07-04] MEDS: 0.9% NaCl VAD Flush IV ×2 (13:10→14:05)
[2020-07-04 14:07] VITALS: BP 140/66; PULSE 64; RESP 18; O2SAT 91
== END ==
PROVIDERS: PCP Student in an Organized Health Care Education/Training Program; Referring Provider Internal Medicine Nephrology; Visit Provider Internal Medicine Nephrology
DX: D64.9 Anemia, unspecified (principal)
CPT/HCPCS: 96365; J1756; J7050; A4216

== ENCOUNTER → 2020-07-11 12:53 | Outpatient (CLI) | payer MEDICARE, BC, SELFPAY ==
[2020-07-02 15:08] VITALS: BMI 37.5
[2020-07-11] MEDS: 0.9% NaCl IVPB Med Flush (250 mL) 15 ML IV (13:00)
[2020-07-11] MEDS: 0.9% NaCl Peripheral Flush Adult/Peds IV ×2 (13:00→14:02)
[2020-07-11 13:22] VITALS: BP 134/50; PULSE 57; RESP 16; TEMP 37; O2SAT 97; BMI 36.6
[2020-07-11 14:05] VITALS: BP 151/58; PULSE 57; RESP 16; TEMP 37; O2SAT 95
== END ==
PROVIDERS: PCP Student in an Organized Health Care Education/Training Program; Referring Provider Internal Medicine Nephrology; Visit Provider Internal Medicine Nephrology
DX: D64.9 Anemia, unspecified (principal)
CPT/HCPCS: 96365; J1756; J7050; A4216

== ENCOUNTER → 2020-07-18 12:47 | Outpatient (CLI) | payer MEDICARE, BC, SELFPAY ==
[2020-07-11 13:22] VITALS: BMI 36.6
[2020-07-18] MEDS: 0.9% NaCl IVPB Med Flush (250 mL) 15 ML IV (13:16)
[2020-07-18] MEDS: 0.9% NaCl Peripheral Flush Adult/Peds IV ×2 (13:16→14:06)
[2020-07-18 13:20] VITALS: BP 163/60; PULSE 57; RESP 16; TEMP 35.9; O2SAT 95; BMI 36.6
[2020-07-18 14:09] VITALS: BP 138/46; PULSE 48; TEMP 36.1
== END ==
PROVIDERS: PCP Student in an Organized Health Care Education/Training Program; Referring Provider Internal Medicine Nephrology; Visit Provider Internal Medicine Nephrology
DX: D64.9 Anemia, unspecified (principal)
CPT/HCPCS: 96365; J1756; J7050; A4216

== ENCOUNTER → 2020-07-23 09:33 | Outpatient (CLI) | payer MEDICARE, BC, SELFPAY ==
[2020-07-18 13:20] VITALS: BMI 36.6
[2020-07-23 10:44] LABS: Hematocrit 35.8 % (40-54); Hemoglobin 11.1 g/dL (13.0-16.5); Mean Corpuscular Hgb 30.1 pg (27.0-32.0); Mean Platelet Vol. 9.4 fl (6.2-12.0); Platelet Count 217 K/mm3 (150-450); RBC Distribution Width CV 14.5 % (11.6-14.6); Red Blood Count 3.69 M/mm3 (4.6-6.2); White Blood Count 6.2 K/mm3 (4.4-11.0)
[2020-07-23 11:13] LABS: PTHIN 117.8 pg/mL (18.4-80.1)
[2020-07-23 12:02] LABS: Albumin, Serum 3.1 g/dL (3.2-5.0); BUN 48 mg/dL (7-18); BUN/Creat Ratio 12.6 RATIO (10-20); Calcium,Total 8.9 mg/dL (8.5-10.1); Chloride 109 mmol/L (98-107); Creatinine, Serum 3.81 mg/dL (0.70-1.30); EST Glomerular Filtration Rate 17 mL/min (>60); Est Glom Filt Rate - Afr Amer 20 mL/min (>60); Ferritin 421 ng/mL (26-388); Glucose 113 mg/dL (74-106); Iron 63 ug/dL (65-175); Iron Binding Capacity,Total 284 ug/dL (250-450); PERCENT IRON SATURATION 22.2 % (15.0-55.0); Phosphorus 4.5 mg/dL (2.5-4.9); Potassium 3.1 mmol/L (3.5-5.1); Sodium Level 142 mmol/L (136-145)
== END ==
PROVIDERS: PCP Student in an Organized Health Care Education/Training Program; Referring Provider Internal Medicine Nephrology; Visit Provider Internal Medicine Nephrology
DX: N18.5 Chronic kidney disease, stage 5 (principal); D50.9 Iron deficiency anemia, unspecified; N25.81 Secondary hyperparathyroidism of renal origin
CPT/HCPCS: 36415; 80069; 82728; 83540; 83550; 83970; 85027

== ENCOUNTER → 2020-07-25 12:47 | Outpatient (CLI) | payer MEDICARE, BC, SELFPAY ==
[2020-07-18 13:20] VITALS: BMI 36.6
[2020-07-25 12:51] VITALS: BP 135/98; PULSE 60; RESP 18; TEMP 35.6; O2SAT 97; BMI 37.6
[2020-07-25] MEDS: 0.9% NaCl Peripheral Flush Adult/Peds IV ×2 (13:02→13:54)
[2020-07-25] MEDS: 0.9% NaCl IVPB Med Flush (250 mL) 15 ML IV (13:05)
[2020-07-25 13:58] VITALS: BP 176/59; PULSE 50; RESP 16; TEMP 37; O2SAT 99
== END ==
PROVIDERS: PCP Student in an Organized Health Care Education/Training Program; Referring Provider Internal Medicine Nephrology; Visit Provider Internal Medicine Nephrology
DX: D64.9 Anemia, unspecified (principal)
CPT/HCPCS: 96365; J1756; J7050; A4216

== ENCOUNTER 2020-08-26 14:42 | Outpatient (RCR) | payer MEDICARE, BC, SELFPAY ==
[2020-07-25 12:51] VITALS: BMI 37.6
[2020-08-26] MEDS: COVID-19 VACC, MRNA(PFIZER)/PF 30 MCG/0.3 ML SYRINGE IM (16:34)
[2020-09-16] MEDS: COVID-19 VACC, MRNA(PFIZER)/PF 30 MCG/0.3 ML SYRINGE IM (15:34)
== END 2020-11-25 23:59 ==
LOC: IMMUN 14:42
PROVIDERS: PCP Student in an Organized Health Care Education/Training Program; Referring Provider Family Medicine; Visit Provider Family Medicine
DX: Z23 Encounter for immunization (principal)
CPT/HCPCS: 0001A; 0002A; 91300

== ENCOUNTER → 2020-09-01 13:48 | Outpatient (CLI) | payer MEDICARE, BC, SELFPAY ==
[2020-07-25 12:51] VITALS: BMI 37.6
[2020-09-01 14:38] LABS: Hematocrit 39.5 % (40-54); Hemoglobin 12.3 g/dL (13.0-16.5); Mean Corp Hgb Conc 31.1 g/dL (32-36); Mean Corpuscular Hgb 30.4 pg (27.0-32.0); Mean Corpuscular Volume 97.8 fL (80-94); Mean Platelet Vol. 9.7 fl (6.2-12.0); Platelet Count 185 K/mm3 (150-450); RBC Distribution Width CV 13.9 % (11.6-14.6); RBC Distribution Width SD 50.1 fl (35.1-43.9); Red Blood Count 4.04 M/mm3 (4.6-6.2); White Blood Count 7.2 K/mm3 (4.4-11.0)
[2020-09-01 15:11] LABS: Albumin, Serum 3.5 g/dL (3.2-5.0); BUN 56 mg/dL (7-18); BUN/Creat Ratio 15.8 RATIO (10-20); Calcium,Total 9.2 mg/dL (8.5-10.1); Chloride 109 mmol/L (98-107); Creatinine, Serum 3.54 mg/dL (0.70-1.30); EST Glomerular Filtration Rate 18 mL/min (>60); Est Glom Filt Rate - Afr Amer 22 mL/min (>60); Glucose 112 mg/dL (74-106); Phosphorus 5.1 mg/dL (2.5-4.9); Potassium 3.7 mmol/L (3.5-5.1); Sodium Level 142 mmol/L (136-145)
== END ==
PROVIDERS: PCP Student in an Organized Health Care Education/Training Program; Visit Provider Internal Medicine Nephrology
DX: N18.5 Chronic kidney disease, stage 5 (principal); D50.9 Iron deficiency anemia, unspecified
CPT/HCPCS: 36415; 80069; 85027

== ENCOUNTER → 2020-10-02 13:03 | Outpatient (CLI) | payer MEDICARE, BC, SELFPAY ==
[2020-07-25 12:51] VITALS: BMI 37.6
[2020-10-02 13:42] LABS: Hematocrit 37.2 % (40-54); Mean Corp Hgb Conc 32.3 g/dL (32-36); Mean Corpuscular Hgb 30.7 pg (27.0-32.0); Mean Corpuscular Volume 95.1 fL (80-94); Mean Platelet Vol. 9.6 fl (6.2-12.0); Platelet Count 198 K/mm3 (150-450); RBC Distribution Width CV 13.8 % (11.6-14.6); RBC Distribution Width SD 48.1 fl (35.1-43.9); Red Blood Count 3.91 M/mm3 (4.6-6.2); White Blood Count 6.2 K/mm3 (4.4-11.0)
[2020-10-02 14:08] LABS: BUN 69 mg/dL (7-18); Creatinine, Serum 3.71 mg/dL (0.70-1.30); Glucose 192 mg/dL (74-106)
[2020-10-02 14:09] LABS: Albumin, Serum 3.2 g/dL (3.2-5.0); BUN/Creat Ratio 18.6 RATIO (10-20); Calcium,Total 9.1 mg/dL (8.5-10.1); Chloride 109 mmol/L (98-107); EST Glomerular Filtration Rate 17 mL/min (>60); Est Glom Filt Rate - Afr Amer 21 mL/min (>60); Phosphorus 4.6 mg/dL (2.5-4.9); Potassium 3.3 mmol/L (3.5-5.1); Sodium Level 141 mmol/L (136-145)
== END ==
PROVIDERS: PCP Student in an Organized Health Care Education/Training Program; Referring Provider Internal Medicine Nephrology; Visit Provider Internal Medicine Nephrology
DX: N18.5 Chronic kidney disease, stage 5 (principal); D50.9 Iron deficiency anemia, unspecified
CPT/HCPCS: 36415; 80069; 85027

== ENCOUNTER → 2020-10-08 13:44 | Outpatient (CLI) | payer MEDICARE, BC, SELFPAY ==
[2020-07-25 12:51] VITALS: BMI 37.6
[2020-10-08 15:03] LABS: PTHIN 93.7 pg/mL (18.4-80.1)
== END ==
PROVIDERS: PCP Family Medicine Geriatric Medicine; Visit Provider Internal Medicine Nephrology
DX: N25.81 Secondary hyperparathyroidism of renal origin (principal); D64.9 Anemia, unspecified
CPT/HCPCS: 36415; 83970

== ENCOUNTER → 2020-11-12 13:57 | Outpatient (CLI) | payer MEDICARE, BC, SELFPAY ==
[2020-07-25 12:51] VITALS: BMI 37.6
[2020-11-12 14:53] LABS: Hematocrit 37.6 % (40-54); Hemoglobin 12.1 g/dL (13.0-16.5); Mean Corp Hgb Conc 32.2 g/dL (32-36); Mean Corpuscular Hgb 30.3 pg (27.0-32.0); Mean Platelet Vol. 9.5 fl (6.2-12.0); Platelet Count 197 K/mm3 (150-450); RBC Distribution Width CV 13.8 % (11.6-14.6); RBC Distribution Width SD 47.3 fl (35.1-43.9); White Blood Count 6.2 K/mm3 (4.4-11.0)
[2020-11-12 15:16] LABS: PTHIN 82.1 pg/mL (18.4-80.1)
[2020-11-12 15:22] LABS: Albumin, Serum 3.2 g/dL (3.2-5.0); BUN 64 mg/dL (7-18); BUN/Creat Ratio 19.1 RATIO (10-20); Calcium,Total 8.7 mg/dL (8.5-10.1); Chloride 113 mmol/L (98-107); Creatinine, Serum 3.35 mg/dL (0.70-1.30); EST Glomerular Filtration Rate 19 mL/min (>60); Est Glom Filt Rate - Afr Amer 23 mL/min (>60); Ferritin 407 ng/mL (26-388); Glucose 156 mg/dL (74-106); Iron 55 ug/dL (65-175); Iron Binding Capacity,Total 256 ug/dL (250-450); Phosphorus 4.2 mg/dL (2.5-4.9); Potassium 3.2 mmol/L (3.5-5.1); Sodium Level 143 mmol/L (136-145)
== END ==
PROVIDERS: PCP Family Medicine Geriatric Medicine; Referring Provider Internal Medicine Nephrology; Visit Provider Internal Medicine Nephrology
DX: N18.5 Chronic kidney disease, stage 5 (principal); D50.9 Iron deficiency anemia, unspecified; N25.81 Secondary hyperparathyroidism of renal origin
CPT/HCPCS: 36415; 80069; 82728; 83540; 83550; 83970; 85027

== ENCOUNTER → 2020-12-15 13:46 | Outpatient (CLI) | payer MEDICARE, BC, SELFPAY ==
[2020-07-25 12:51] VITALS: BMI 37.6
[2020-12-15 14:09] LABS: Hematocrit 37.2 % (40-54); Hemoglobin 11.9 g/dL (13.0-16.5); Mean Corpuscular Hgb 30.1 pg (27.0-32.0); Mean Corpuscular Volume 94.2 fL (80-94); Mean Platelet Vol. 9.3 fl (6.2-12.0); Platelet Count 160 K/mm3 (150-450); RBC Distribution Width CV 14.1 % (11.6-14.6); RBC Distribution Width SD 48.5 fl (35.1-43.9); Red Blood Count 3.95 M/mm3 (4.6-6.2); White Blood Count 7.1 K/mm3 (4.4-11.0)
[2020-12-15 14:38] LABS: PTHIN 311.3 pg/mL (18.4-80.1)
[2020-12-15 14:44] LABS: Albumin, Serum 3.3 g/dL (3.2-5.0); BUN 51 mg/dL (7-18); BUN/Creat Ratio 14.4 RATIO (10-20); Chloride 112 mmol/L (98-107); Creatinine, Serum 3.54 mg/dL (0.70-1.30); EST Glomerular Filtration Rate 18 mL/min (>60); Est Glom Filt Rate - Afr Amer 22 mL/min (>60); Ferritin 380 ng/mL (26-388); Glucose 150 mg/dL (74-106); Iron 45 ug/dL (65-175); Iron Binding Capacity,Total 281 ug/dL (250-450); Phosphorus 2.7 mg/dL (2.5-4.9); Potassium 3.3 mmol/L (3.5-5.1); Sodium Level 146 mmol/L (136-145)
== END ==
PROVIDERS: Referring Provider Internal Medicine Nephrology; Visit Provider Internal Medicine Nephrology
DX: N18.5 Chronic kidney disease, stage 5 (principal); N25.81 Secondary hyperparathyroidism of renal origin; E87.6 Hypokalemia; D50.9 Iron deficiency anemia, unspecified
CPT/HCPCS: 36415; 80069; 82728; 83540; 83550; 83970; 85027

== ENCOUNTER → 2021-01-14 13:19 | Outpatient (CLI) | payer MEDICARE, BC, SELFPAY ==
[2020-07-25 12:51] VITALS: BMI 37.6
[2021-01-14 15:20] LABS: Hematocrit 36.1 % (40-54); Hemoglobin 11.7 g/dL (13.0-16.5); Mean Corp Hgb Conc 32.4 g/dL (32-36); Mean Corpuscular Hgb 29.8 pg (27.0-32.0); Mean Corpuscular Volume 92.1 fL (80-94); Mean Platelet Vol. 9.7 fl (6.2-12.0); Platelet Count 158 K/mm3 (150-450); RBC Distribution Width CV 13.9 % (11.6-14.6); RBC Distribution Width SD 46.9 fl (35.1-43.9); Red Blood Count 3.92 M/mm3 (4.6-6.2); White Blood Count 4.9 K/mm3 (4.4-11.0)
[2021-01-14 15:57] LABS: Albumin, Serum 3.1 g/dL (3.2-5.0); BUN 71 mg/dL (7-18); BUN/Creat Ratio 20.8 RATIO (10-20); Calcium,Total 8.7 mg/dL (8.5-10.1); Chloride 109 mmol/L (98-107); Creatinine, Serum 3.41 mg/dL (0.70-1.30); EST Glomerular Filtration Rate 19 mL/min (>60); Est Glom Filt Rate - Afr Amer 23 mL/min (>60); Ferritin 441 ng/mL (26-388); Glucose 248 mg/dL (74-106); Iron 63 ug/dL (65-175); Iron Binding Capacity,Total 258 ug/dL (250-450); Phosphorus 4.6 mg/dL (2.5-4.9); Potassium 3.5 mmol/L (3.5-5.1); Sodium Level 142 mmol/L (136-145)
[2021-01-15 09:00] LABS: PTHIN 91.7 pg/mL (18.4-80.1)
== END ==
PROVIDERS: PCP Student in an Organized Health Care Education/Training Program; Referring Provider Internal Medicine Nephrology; Visit Provider Internal Medicine Nephrology
DX: D50.9 Iron deficiency anemia, unspecified (principal); E87.6 Hypokalemia; N25.81 Secondary hyperparathyroidism of renal origin
CPT/HCPCS: 36415; 80069; 82728; 83540; 83550; 83970; 85027

== ENCOUNTER → 2021-03-19 13:16 | Outpatient (CLI) | payer MEDICARE, BC, SELFPAY ==
[2020-07-25 12:51] VITALS: BMI 37.6
[2021-03-19 13:45] LABS: Hematocrit 38.2 % (40-54); Hemoglobin 12.1 g/dL (13.0-16.5); Mean Corp Hgb Conc 31.7 g/dL (32-36); Mean Corpuscular Hgb 29.7 pg (27.0-32.0); Mean Corpuscular Volume 93.6 fL (80-94); Mean Platelet Vol. 9.6 fl (6.2-12.0); Platelet Count 147 K/mm3 (150-450); RBC Distribution Width CV 14.9 % (11.6-14.6); RBC Distribution Width SD 51.3 fl (35.1-43.9); Red Blood Count 4.08 M/mm3 (4.6-6.2); White Blood Count 6.1 K/mm3 (4.4-11.0)
[2021-03-19 14:06] LABS: PTHIN 153.2 pg/mL (18.4-80.1)
[2021-03-19 14:13] LABS: BUN 64 mg/dL (7-18); BUN/Creat Ratio 18.7 RATIO (10-20); Calcium,Total 8.6 mg/dL (8.5-10.1); Chloride 110 mmol/L (98-107); Creatinine, Serum 3.42 mg/dL (0.70-1.30); EST Glomerular Filtration Rate 19 mL/min (>60); Est Glom Filt Rate - Afr Amer 23 mL/min (>60); Ferritin 292 ng/mL (26-388); Glucose 201 mg/dL (74-106); Iron 63 ug/dL (65-175); Iron Binding Capacity,Total 259 ug/dL (250-450); Phosphorus 4.4 mg/dL (2.5-4.9); Potassium 3.3 mmol/L (3.5-5.1); Sodium Level 144 mmol/L (136-145)
== END ==
PROVIDERS: PCP Student in an Organized Health Care Education/Training Program; Visit Provider Internal Medicine Nephrology
DX: N18.5 Chronic kidney disease, stage 5 (principal); D50.9 Iron deficiency anemia, unspecified
CPT/HCPCS: 36415; 80069; 82728; 83540; 83550; 83970; 85027

== ENCOUNTER → 2021-05-04 11:52 | Outpatient (CLI) | payer MEDICARE, BC, SELFPAY ==
[2021-05-04 13:03] LABS: BUN 72 mg/dL (7-18); BUN/Creat Ratio 21.5 RATIO (10-20); Calcium,Total 8.7 mg/dL (8.5-10.1); Chloride 111 mmol/L (98-107); Creatinine, Serum 3.35 mg/dL (0.70-1.30); EST Glomerular Filtration Rate 19 mL/min (>60); Est Glom Filt Rate - Afr Amer 23 mL/min (>60); Glucose 191 mg/dL (74-106); Phosphorus 4.5 mg/dL (2.5-4.9); Potassium 3.2 mmol/L (3.5-5.1); Sodium Level 142 mmol/L (136-145)
== END ==
PROVIDERS: PCP Student in an Organized Health Care Education/Training Program; Referring Provider Internal Medicine Nephrology; Visit Provider Internal Medicine Nephrology
DX: N18.5 Chronic kidney disease, stage 5 (principal); D50.9 Iron deficiency anemia, unspecified
CPT/HCPCS: 36415; 80069

== ENCOUNTER → 2021-05-06 13:06 | Outpatient (CLI) | payer MEDICARE, BC, SELFPAY ==
[2021-05-06 14:43] LABS: Hepatitis B Surface Antigen Non-Reactive (Nonreactive)
== END ==
PROVIDERS: PCP Student in an Organized Health Care Education/Training Program; Referring Provider Internal Medicine Nephrology; Visit Provider Internal Medicine Nephrology
DX: N18.5 Chronic kidney disease, stage 5 (principal)
CPT/HCPCS: 36415; 87340

== ENCOUNTER 2021-06-23 12:56 | Outpatient (CLI) | payer MEDICARE, BC, SELFPAY ==
[2021-06-23 14:25] LABS: Hemoglobin 13.1 g/dL (13.0-16.5); Mean Corp Hgb Conc 32.8 g/dL (32-36); Mean Corpuscular Hgb 30.8 pg (27.0-32.0); Mean Corpuscular Volume 93.9 fL (80-94); Platelet Count 145 K/mm3 (150-450); RBC Distribution Width CV 15.9 % (11.6-14.6); RBC Distribution Width SD 55.2 fl (35.1-43.9); Red Blood Count 4.26 M/mm3 (4.6-6.2); White Blood Count 5.8 K/mm3 (4.4-11.0)
[2021-06-23 14:57] LABS: PTHIN 193.8 pg/mL (18.4-80.1)
[2021-06-23 15:08] LABS: Albumin, Serum 3.1 g/dL (3.2-5.0); BUN 75 mg/dL (7-18); BUN/Creat Ratio 22.6 RATIO (10-20); Calcium,Total 8.6 mg/dL (8.5-10.1); Chloride 113 mmol/L (98-107); Creatinine, Serum 3.32 mg/dL (0.70-1.30); EST Glomerular Filtration Rate 19 mL/min (>60); Est Glom Filt Rate - Afr Amer 24 mL/min (>60); Ferritin 309 ng/mL (26-388); Glucose 187 mg/dL (74-106); Iron 61 ug/dL (65-175); Iron Binding Capacity,Total 303 ug/dL (250-450); PERCENT IRON SATURATION 20.1 % (15.0-55.0); Phosphorus 4.3 mg/dL (2.5-4.9); Potassium 3.3 mmol/L (3.5-5.1); Sodium Level 146 mmol/L (136-145)
== END 2021-06-23 23:59 | disposition short-term general hospital (02) ==
LOC: LAB 13:00
PROVIDERS: PCP Student in an Organized Health Care Education/Training Program; Referring Provider Internal Medicine Nephrology; Visit Provider Internal Medicine Nephrology
DX: N18.5 Chronic kidney disease, stage 5 (principal); D64.9 Anemia, unspecified
CPT/HCPCS: 36415; 80069; 82728; 83540; 83550; 83970; 85027

== ENCOUNTER 2021-06-30 14:16 | Outpatient (CLI) | payer MEDICARE, BC, SELFPAY ==
[2021-07-01 08:26] LABS: Hepatitis B Surface Antigen Non-Reactive (Nonreactive)
== END 2021-06-30 23:59 | disposition short-term general hospital (02) ==
LOC: POLAB3 14:18
PROVIDERS: PCP Student in an Organized Health Care Education/Training Program; Visit Provider Internal Medicine Nephrology
DX: N18.5 Chronic kidney disease, stage 5 (principal)
CPT/HCPCS: 36415; 87340

== ENCOUNTER 2021-08-03 13:54 | Outpatient (CLI) | payer MEDICARE, BC, SELFPAY ==
[2021-08-03 15:59] LABS: Hematocrit 42.6 % (40-54); Hemoglobin 13.6 g/dL (13.0-16.5); Mean Corp Hgb Conc 31.9 g/dL (32-36); Mean Corpuscular Hgb 30.4 pg (27.0-32.0); Mean Corpuscular Volume 95.1 fL (80-94); Mean Platelet Vol. 10.2 fl (6.2-12.0); Platelet Count 150 K/mm3 (150-450); RBC Distribution Width CV 14.9 % (11.6-14.6); RBC Distribution Width SD 52.1 fl (35.1-43.9); Red Blood Count 4.48 M/mm3 (4.6-6.2); White Blood Count 6.1 K/mm3 (4.4-11.0)
[2021-08-03 16:45] LABS: Albumin, Serum 3.3 g/dL (3.2-5.0); BUN 77 mg/dL (7-18); BUN/Creat Ratio 20.9 RATIO (10-20); Calcium,Total 8.6 mg/dL (8.5-10.1); Chloride 114 mmol/L (98-107); Creatinine, Serum 3.69 mg/dL (0.70-1.30); EST Glomerular Filtration Rate 17 mL/min (>60); Est Glom Filt Rate - Afr Amer 21 mL/min (>60); Glucose 154 mg/dL (74-106); Phosphorus 3.6 mg/dL (2.5-4.9); Sodium Level 144 mmol/L (136-145)
[2021-08-04 08:24] LABS: PTHIN 163.9 pg/mL (18.4-80.1)
== END 2021-08-03 23:59 | disposition home or self-care (01) ==
LOC: LAB 13:56
PROVIDERS: PCP Student in an Organized Health Care Education/Training Program; Visit Provider Internal Medicine Nephrology
DX: D50.9 Iron deficiency anemia, unspecified (principal); N25.81 Secondary hyperparathyroidism of renal origin; N18.30 Chronic kidney disease, stage 3 unspecified; E87.6 Hypokalemia
CPT/HCPCS: 36415; 80069; 83970; 85027

== ENCOUNTER 2021-08-31 13:30 | Outpatient (CLI) | payer MEDICARE, BC, SELFPAY ==
[2021-08-31 15:21] LABS: Hematocrit 41.4 % (40-54); Hemoglobin 13.1 g/dL (13.0-16.5); Mean Corp Hgb Conc 31.6 g/dL (32-36); Mean Corpuscular Hgb 30.4 pg (27.0-32.0); Mean Corpuscular Volume 96.1 fL (80-94); Mean Platelet Vol. 10.1 fl (6.2-12.0); Platelet Count 154 K/mm3 (150-450); RBC Distribution Width CV 14.7 % (11.6-14.6); RBC Distribution Width SD 51.8 fl (35.1-43.9); Red Blood Count 4.31 M/mm3 (4.6-6.2); White Blood Count 5.9 K/mm3 (4.4-11.0)
[2021-08-31 16:07] LABS: ALB/GLOB Ratio 0.8 RATIO (0.9-2.4); AST(SGOT) 15 U/L (15-37); Alanine Aminotransfer ALT/SGPT 17 U/L (16-61); Albumin, Serum 3.2 g/dL (3.2-5.0); Alkaline Phosphatase 68 U/L (45-117); Anion Gap 8 (5-15); BUN 84 mg/dL (7-18); BUN/Creat Ratio 24.4 RATIO (10-20); Calcium,Total 8.7 mg/dL (8.5-10.1); Chloride 113 mmol/L (98-107); Creatinine, Serum 3.44 mg/dL (0.70-1.30); EST Glomerular Filtration Rate 19 mL/min (>60); Est Glom Filt Rate - Afr Amer 23 mL/min (>60); Globulin 3.9 g/dL (2.2-4.2); Glucose 188 mg/dL (74-106); PSA,Total - Annual Screen < 0.01 ng/mL (0.00-4.00); Phosphorus 3.7 mg/dL (2.5-4.9); Potassium 3.7 mmol/L (3.5-5.1); Protein, Total 7.1 g/dL (6.4-8.2); Sodium Level 143 mmol/L (136-145)
[2021-09-01 08:25] LABS: PTHIN 121.5 pg/mL (18.4-80.1)
== END 2021-08-31 23:59 | disposition home or self-care (01) ==
LOC: LAB 13:32
PROVIDERS: PCP Student in an Organized Health Care Education/Training Program; Referring Provider Internal Medicine Nephrology; Visit Provider Internal Medicine Nephrology
DX: R73.01 Impaired fasting glucose (principal); N18.5 Chronic kidney disease, stage 5; N25.81 Secondary hyperparathyroidism of renal origin; D50.9 Iron deficiency anemia, unspecified; Z12.5 Encounter for screening for malignant neoplasm of prostate
CPT/HCPCS: 36415; 80053; 83970; 84100; 84153; 85027; G0103

== ENCOUNTER → 2021-11-03 | Outpatient (CLI) | payer MEDICARE, BC, SELFPAY ==
[2021-11-03 14:16] LABS: Mean Corp Hgb Conc 32.5 g/dL (32-36); Mean Corpuscular Hgb 31.3 pg (27.0-32.0); Mean Corpuscular Volume 96.2 fL (80-94); Mean Platelet Vol. 9.8 fl (6.2-12.0); Platelet Count 147 K/mm3 (150-450); RBC Distribution Width CV 14.8 % (11.6-14.6); RBC Distribution Width SD 52.5 fl (35.1-43.9); Red Blood Count 4.16 M/mm3 (4.6-6.2); White Blood Count 5.1 K/mm3 (4.4-11.0)
[2021-11-03 14:33] LABS: Albumin, Serum 3.2 g/dL (3.2-5.0); BUN 80 mg/dL (7-18); BUN/Creat Ratio 20.2 RATIO (10-20); Calcium,Total 8.7 mg/dL (8.5-10.1); Chloride 114 mmol/L (98-107); Creatinine, Serum 3.96 mg/dL (0.70-1.30); EST Glomerular Filtration Rate 16 mL/min (>60); Est Glom Filt Rate - Afr Amer 19 mL/min (>60); Glucose 192 mg/dL (74-106); Phosphorus 4.2 mg/dL (2.5-4.9); Potassium 3.6 mmol/L (3.5-5.1); Sodium Level 144 mmol/L (136-145)
== END | disposition home or self-care (01) ==
LOC: LAB 13:30
PROVIDERS: PCP Student in an Organized Health Care Education/Training Program; Referring Provider Internal Medicine Nephrology; Visit Provider Internal Medicine Nephrology
DX: N25.81 Secondary hyperparathyroidism of renal origin (principal); N18.5 Chronic kidney disease, stage 5
CPT/HCPCS: 36415; 80069; 83970; 85027

== ENCOUNTER → 2021-12-09 | Outpatient (CLI) | payer MEDICARE, BC, SELFPAY ==
[2021-12-09 15:05] LABS: Hematocrit 41.6 % (40-54); Hemoglobin 13.1 g/dL (13.0-16.5); Mean Corp Hgb Conc 31.5 g/dL (32-36); Mean Corpuscular Hgb 30.5 pg (27.0-32.0); Mean Corpuscular Volume 96.7 fL (80-94); Mean Platelet Vol. 10.4 fl (6.2-12.0); Platelet Count 166 K/mm3 (150-450); RBC Distribution Width CV 15.6 % (11.6-14.6); RBC Distribution Width SD 55.5 fl (35.1-43.9); White Blood Count 4.4 K/mm3 (4.4-11.0)
[2021-12-09 16:08] LABS: PTHIN 123.5 pg/mL (18.4-80.1)
[2021-12-09 16:10] LABS: Albumin, Serum 2.9 g/dL (3.2-5.0); BUN 80 mg/dL (7-18); BUN/Creat Ratio 20.9 RATIO (10-20); Chloride 115 mmol/L (98-107); Creatinine, Serum 3.82 mg/dL (0.70-1.30); EST Glomerular Filtration Rate 17 mL/min (>60); Est Glom Filt Rate - Afr Amer 20 mL/min (>60); Ferritin 276 ng/mL (26-388); Glucose 228 mg/dL (74-106); Iron 88 ug/dL (65-175); Iron Binding Capacity,Total 496 ug/dL (250-450); PERCENT IRON SATURATION 17.7 % (15.0-55.0); Phosphorus 3.9 mg/dL (2.5-4.9); Potassium 3.7 mmol/L (3.5-5.1); Sodium Level 141 mmol/L (136-145)
== END | disposition home or self-care (01) ==
PROVIDERS: PCP Student in an Organized Health Care Education/Training Program; Referring Provider Internal Medicine Nephrology; Visit Provider Internal Medicine Nephrology
DX: N18.5 Chronic kidney disease, stage 5 (principal); N25.81 Secondary hyperparathyroidism of renal origin; D50.9 Iron deficiency anemia, unspecified
CPT/HCPCS: 36415; 80069; 82728; 83540; 83550; 83970; 85027

== ENCOUNTER → 2022-02-09 | Outpatient (CLI) | payer MEDICARE, BC, SELFPAY ==
[2022-02-09 14:18] LABS: Hematocrit 41.4 % (40-54); Hemoglobin 13.4 g/dL (13.0-16.5); Mean Corp Hgb Conc 32.4 g/dL (32-36); Mean Corpuscular Hgb 30.7 pg (27.0-32.0); Mean Platelet Vol. 9.2 fl (6.2-12.0); Platelet Count 130 K/mm3 (150-450); RBC Distribution Width CV 15.1 % (11.6-14.6); RBC Distribution Width SD 52.1 fl (35.1-43.9); Red Blood Count 4.36 M/mm3 (4.6-6.2); White Blood Count 6.6 K/mm3 (4.4-11.0)
[2022-02-09 14:40] LABS: PTHIN 53.7 pg/mL (18.4-80.1)
[2022-02-09 14:52] LABS: BUN 130 mg/dL (7-18); BUN/Creat Ratio 23.4 RATIO (10-20); Chloride 117 mmol/L (98-107); Creatinine, Serum 5.56 mg/dL (0.70-1.30); EST Glomerular Filtration Rate 11 mL/min (>60); Est Glom Filt Rate - Afr Amer 13 mL/min (>60); Glucose 241 mg/dL (74-106); Iron 82 ug/dL (65-175); Iron Binding Capacity,Total 338 ug/dL (250-450); Phosphorus 5.9 mg/dL (2.5-4.9); Sodium Level 141 mmol/L (136-145)
[2022-02-10 10:18] LABS: Ferritin 311 ng/mL (26-388)
== END | disposition home or self-care (01) ==
LOC: LAB 13:54
PROVIDERS: PCP Student in an Organized Health Care Education/Training Program; Referring Provider Internal Medicine Nephrology; Visit Provider Internal Medicine Nephrology
DX: N18.5 Chronic kidney disease, stage 5 (principal); N25.81 Secondary hyperparathyroidism of renal origin; D50.9 Iron deficiency anemia, unspecified
CPT/HCPCS: 36415; 80069; 82728; 83540; 83550; 83970; 85027

== ENCOUNTER 2022-02-16 12:14 | Inpatient (IN) | payer MEDICARE, BC, SELFPAY ==
[2022-02-16] VITALS (9 sets, daily range): BP systolic 115–165; BP diastolic 65–80; PULSE 90–111; RESP 16–26; TEMP 35.9–36.4; O2SAT 94–99; BMI 33.5; BMI 32.6
--- NOTE | 2022-02-16 13:35 | EKG12_ITS ---
Test Reason : sob Blood Pressure : / mmHG Vent. Rate : 091 BPM Atrial Rate : 000 BPM P-R Int : 000 ms QRS Dur : 176 ms QT Int : 418 ms P-R-T Axes : 000 270 053 degrees QTc Int : 514 ms Atrial fibrillation Right bundle branch block Left anterior fascicular block Bifascicular block Abnormal ECG Confirmed by SHAYNA BYERS, JEANETTE ([id number]), medical editor PASCUAL VEGA ([id number]) on 02/24/2022 11:25:18 AM Referred By: Kirk Confirmed By:JEANETTE CORRAL MD
[2022-02-16 14:04] LABS: Absolute Lymphocyte Count 0.42 X10^3/uL (0.83-4.51); Absolute Neutrophil Count 6.4 X10^3/uL (2.0-7.7); Basophil# 0.02 X10^3/uL; Basophil% 0.3 % (0-1); Eosinophil# 0.05 X10^3/uL; Eosinophils% 0.7 % (0-5); Hematocrit 42.3 % (40-54); Hemoglobin 13.5 g/dL (13.0-16.5); Lymphocyte # 0.42 X10^3/ul (0.83-4.51); Lymphocyte % 5.7 % (19-41); Mean Corp Hgb Conc 31.9 g/dL (32-36); Mean Corpuscular Volume 97.2 fL (80-94); Mean Platelet Vol. 9.9 fl (6.2-12.0); Monocyte# 0.45 X10^3/uL; Monocyte% 6.1 % (0-10); NRBC Flagged by Analyzer 0 % (0-5); Neutrophil # 6.35 X10^3/uL (2.7-7.7); Neutrophil % 86.8 % (47-70); POSITIVE DIFFERENTIAL YES; Platelet Count 129 K/mm3 (150-450); RBC Distribution Width CV 15.6 % (11.6-14.6); RBC Distribution Width SD 55.1 fl (35.1-43.9); Red Blood Count 4.35 M/mm3 (4.6-6.2); White Blood Count 7.3 K/mm3 (4.4-11.0)
[2022-02-16 14:09] LABS: Differential Indicated SCAN CRITERIA MET
--- NOTE | 2022-02-16 14:15 | RAD_ITS ---
STUDY: X-RAY CHEST REASON FOR EXAM: Male, 76 years old. Dyspnea TECHNIQUE: PA and lateral views of the chest. COMPARISON: Comparison is made with prior study dated 07/02/2020. FINDINGS: A right-sided portacatheter is seen with the tip at the junction of the superior vena cava and right atrium. Hyperinflation. Stable mild increased markings at the lung bases suggestive of scarring. There is no demonstrated pleural abnormality. There is mild cardiac enlargement. Normal mediastinum and donaldo. Normal visualized pulmonary arteries. There is atherosclerotic calcification of the aortic arch with tortuosity. There are diffuse degenerative changes of the visualized thoracic spine. Normal visualized ribs, clavicles, and shoulders. There is no demonstrated abnormality of the visualized soft tissue structures of the upper abdomen. RAD/Chest PA and Lateral IMPRESSION: No acute abnormality is seen. Electronically Signed: Rd Hernandez MD at 14:40 EDT ,
[2022-02-16 14:27] LABS: BNP,B-Type NATRIURETIC PEPTIDE 866.4 pg/mL (0-100)
[2022-02-16 14:29] LABS: ALB/GLOB Ratio 0.7 RATIO (0.9-2.4); AST(SGOT) 13 U/L (15-37); Alanine Aminotransfer ALT/SGPT 22 U/L (16-61); Albumin, Serum 3.2 g/dL (3.2-5.0); Alkaline Phosphatase 56 U/L (45-117); Anion Gap 11 (5-15); BUN 133 mg/dL (7-18); BUN/Creat Ratio 23.8 RATIO (10-20); Calcium,Total 9.3 mg/dL (8.5-10.1); Chloride 125 mmol/L (98-107); Creatinine, Serum 5.59 mg/dL (0.70-1.30); EST Glomerular Filtration Rate 11 mL/min (>60); Est Glom Filt Rate - Afr Amer 13 mL/min (>60); Estimated Creatinine Clearance 11.42 ml/min; Globulin 4.3 g/dL (2.2-4.2); Glucose 100 mg/dL (74-106); Potassium 5.4 mmol/L (3.5-5.1); Protein, Total 7.5 g/dL (6.4-8.2); Sodium Level 145 mmol/L (136-145)
[2022-02-16 14:31] LABS: Platelet Estimate ADEQUATE (ADEQ); Red Cell Morphology NORM C+C NORMAL (NORM C&C)
--- NOTE | 2022-02-16 14:39 | EDS_ITS ---
HPI History of Present Illness Chief Complaint: Shortness of Breath Informant: patient and family Onset/Context/Timing Onset: Yesterday Context: gradual Timing: Waxes and wanes Quality: Positive for Dyspnea on exertion Worsened by: Exertion Relieved by: Nothing Associated Symptoms subjective and chills; Negative for cough, rhinorrhea, post nasal drip, fever or sweats Chest Pain: Positive for None Narrative Narrative: Patient presents with shortness of breath that has been getting progressively worse over the past few days. Patient was seen by his carbide operator who sent him to the emergency department to be admitted and started on dialysis tomorrow. Patient admits to some subjective chills. Patient does have an AV fistula in his right arm. Patient has a history of chronic kidney disease. Patient states his breathing is worse with any exertion. PE Risk Factors: Negative for Prior DVT or PE, Recent immobilization or Recent surgery [facility] Medical History (Updated 02/16/22 @ 14:[address] Ed Bradley, DO) Acute kidney injury Anemia Bladder cancer CKD (chronic kidney disease) stage 4, GFR 15-29 ml/min Elevated troponin Essential hypertension History of DVT (deep vein thrombosis) History of pulmonary embolism History of solitary pulmonary nodule Left upper chest discomfort Lower gastrointestinal bleeding Lymphoma Lymphoma Neutropenic fever Pancytopenia Preop cardiovascular exam Renal calculus Shortness of breath VTE (venous thromboembolism) Home Medications carvedilol 6.25 mg tablet 6.25 mg PO DAILY blood pressure 04/24/17 [History Last Taken 07/02/20] ferrous sulfate 325 mg (65 mg iron) tablet 325 mg PO TIDCM SUPPLEMENT 11/06/19 [History Last Taken 07/02/20] amlodipine 5 mg tablet 5 mg PO DAILY BP 11/07/19 [History Last Taken 07/02/20] calcitriol 0.25 mcg capsule 0.25 mcg PO DAILY THYROID 07/02/20 [History Last Taken 07/01/20] polyethylene glycol 3350 17 gram/dose oral powder 17 gm PO DAILY CONSTIPATION 07/02/20 [History Last Taken 07/01/20] potassium chloride 10 mEq tablet,extended release(part/cryst) 10 meq PO DAILY SUPPLEMENT 07/02/20 [History Last Taken 07/01/20] vitamin B complex 1 tab PO DAILY SUPPLEMENT 07/02/20 [History Last Taken 07/02/20] cetirizine 10 mg capsule 10 mg PO DAILY #30 caps 07/04/20 [Rx Last Taken Unknown] fluticasone propionate 50 mcg/actuation nasal spray,suspension 2 spray NASAL DAILY ##1 07/04/20 [Rx Last Taken Unknown] furosemide 40 mg tablet 40 mg PO DAILY #30 tabs 07/04/20 [Rx Last Taken Unknown] Allergy/AdvReac Type Severity Reaction Status Date / Time enoxaparin [From Lovenox] Allergy Other Verified 02/16/22 12:19 heparin Allergy Other Verified 02/16/22 12:19 aspirin AdvReac Other Verified 02/16/22 12:19 Iodinated Contrast Media AdvReac OTHER Verified 02/16/22 12:19 [CONTRASTS] Family History Father Cancer lung Brother Cancer testicular Surgical History H/O total cystectomy History of cataract extraction History of corrected cleft lip and palate History of tonsillectomy Social History Smoking Status: Former smoker how long ago did patient quit smokin alcohol intake: never substance use type: does not use caffeine: No ROS ROS ED Constitutional Constitutional ED: Denies chills or fever(s) Eyes Eyes: Reports blurry vision; Denies diplopia ENT ENT ED: Denies rhinorrhea or sore throat Cardiovascular Cardiovascular: Denies chest pain or palpitations Respiratory/Chest Respiratory/Chest: Reports dyspnea; Denies cough Gastrointestinal Gastrointestinal: Denies nausea or vomiting Genitourinary Genitourinary ED: Denies dysuria or hematuria Musculoskeletal Musculoskeletal: Reports back pain; Denies neck pain Integumentary Denies abscess or rash Neurologic Neurologic: Reports weakness; Denies headache(s) Allergic/Immunologic Allergic/Immunologic ED: Denies mouth swelling or urticaria EXAM Physical Exam Const Vital Signs: 02/16/22 12:15 02/16/22 14:00 Temperature 97.2 F L Temperature Source Temporal Pulse Rate 91 Respiratory Rate 22 H Respiratory Effort Short of Breath Respiratory Pattern Tachypnea Blood Pressure 133/76 H Blood Pressure Mean 95 Pulse Ox 99 Oxygen Delivery Method Room Air Room Air Positive well nourished and well developed General Appearance ED: well developed and NAD HEENT Reports moist mucous membranes Neck supple and no JVD Resp normal respiratory effort Auscultation: diminished lung sounds Cardio regular rate Rhythm: abnormal rhythm irregularly irregular GI normal to inspection, nondistended, normoactive bowel sounds and non-tender Palpation: soft Extremity normal to inspection General Extremety ED: Negative for edema or tenderness General Extremity: Negative for edema Neuro oriented x3, CN's II-XII intact bilaterally and no sensory deficits noted Sensorium / Orientation: alert Motor Exam: strength 5/5 throughout Psych mental status grossly normal Skin no rashes or lesions noted MDM MDM MDM Narrative Medical decision making narrative: EKG was obtained. On my interpretation, it shows atrial fibrillation with a rate of 91. QRS is prolonged at 176 ms. QTc interval slightly prolonged at 514 ms. There is a right bundle branch block pattern noted. There is a left anterior fascicular block. There are no acute ST or T wave changes. CBC was within normal limits except for mild thrombocytopenia of 129. Comprehensive metabolic profile shows a potassium of 5.4, CO2 of 9.0, BUN of 133 and creatinine of 5.59. Patient was given calcium, insulin, and glucose for the potassium. B natruretic peptide was elevated at 866.4. PA and lateral chest x- ray was obtained. There are 2 views. On my interpretation, there is no acute cardiopulmonary process. There is no acute infiltrate. Radiologist also interpreted the x-ray and agrees. Case was discussed with the hospitalist. Patient will be admitted to the hospital. Patient and family understood and were agreeable with the plan. All questions were answered. Lab Data Attestation: I reviewed the patient's lab results. Labs: Laboratory Results - last 24 hr 02/16/22 02/16/22 02/16/22 13:50 13:50 13:50 WBC 7.3 RBC 4.35 L Hgb 13.5 Hct 42.3 MCV 97.2 H MCH 31.0 MCHC 31.9 L RDW Std Deviation 55.1 H RDW Coeff of Lencho 15.6 H Plt Count 129 L MPV 9.9 Immature Gran % (Auto) 0.400 Neut % (Auto) 86.8 H Lymph % (Auto) 5.7 L Smith % (Auto) 6.1 Eos % (Auto) 0.7 Baso % (Auto) 0.3 Absolute Neuts (auto) 6.4 Absolute Lymphs (auto) 0.42 L Nucleated RBC % 0 Platelet Estimate ADEQUATE RBC Morphology NORM C+C Sodium 145 Potassium 5.4 H Chloride 125 H Carbon Dioxide 9.0 L* Anion Gap 11 BUN 133 H* Creatinine 5.59 H Estim Creat Clear Calc 11.42 Est GFR (MDRD) Af Amer 13 L Est GFR (MDRD) Non-Af 11 L BUN/Creatinine Ratio 23.8 H Glucose 100 Calcium 9.3 Total Bilirubin 0.70 AST 13 L ALT 22 Alkaline Phosphatase 56 B-Natriuretic Peptide 866.4 H Total Protein 7.5 Albumin 3.2 Globulin 4.3 H Albumin/Globulin Ratio 0.7 L Radiography Chest X-Ray - ED: 2 View, Read by ED Physician, Read by Radiologist, No Acute Disease and Chronic Changes Diagnostic Testing: Clinical Impression(s) from Imaging Studies Chest X-Ray 02/16/22 14:15 IMPRESSION: No acute abnormality is seen. Electronically Signed: Rd Hernandez MD at 14:40 EDT , EKG Initial EKG: Attestation: I personally reviewed and interpreted this EKG as follows: Interpretation: Atrial Fibrillation (91), RBBB and LAFB Prior EKG tracings: available for review Prior: Changed (When compared with previous EKG, the atrial fibrillation is new. The bifascicular block is chronic.) Discharge Plan Dx/Rx/DC Orders Clinical Impression: Acute kidney injury superimposed on chronic kidney disease, Hyperkalemia, Atrial fibrillation, new onset Disposition Disposition: Acute Care Hospital [facility]
--- NOTE | 2022-02-16 15:07 | PCM.HP.STD ---
Documented by User: Ciarra Lynne NP, [employer] 02/16/22 16:13 HPI - General General Date of Admission: 02/16/22 Date of Service: 02/16/22 Chief Complaint: Weakness, nausea, abnormal labs. HPI Narrative RIA MARIANO, is a 76 M who presents to the Emergency Room due to weakness, nausea, decreased urine output and abnormal labs. Patient was sent to the emergency room by nephrology, Dr. He during visit today. Patient states his symptoms began approximately 1 week ago and have been progressive since that time. He denies shortness of breath. Denies fever, chills. He states he has had chronic kidney disease stage IV for a long time with previously placed right upper extremity fistula. He also previously had peritoneal dialysis access. He has not yet required dialysis as his labs had previously been stable. Patient denies confusion. Feels somewhat more drowsy than usual. He has a past medical history of chronic kidney disease stage IV, chronic anemia, hypertension, hyperlipidemia, history of bladder cancer, history of lymphoma, history of DVT/PE. [facility] Medical History (Updated 02/16/22 @ 15:33 by Ciarra Lynne NP, [employer]) Acute kidney injury Anemia Bladder cancer CKD (chronic kidney disease) stage 4, GFR 15-29 ml/min Elevated troponin Essential hypertension History of DVT (deep vein thrombosis) History of pulmonary embolism History of solitary pulmonary nodule Left upper chest discomfort Lower gastrointestinal bleeding Lymphoma Lymphoma Neutropenic fever Pancytopenia Preop cardiovascular exam Renal calculus Shortness of breath VTE (venous thromboembolism) Home Medications carvedilol 6.25 mg tablet 6.25 mg PO BID blood pressure 04/24/17 [History Last Taken 02/15/22] ferrous sulfate 325 mg (65 mg iron) tablet 325 mg PO TIDCM SUPPLEMENT 11/06/19 [History Last Taken 02/15/22] amlodipine 5 mg tablet 5 mg PO DAILY BP 11/07/19 [History Last Taken 07/02/20] polyethylene glycol 3350 17 gram/dose oral powder 17 gm PO DAILY CONSTIPATION 07/02/20 [History Last Taken 02/14/22] potassium chloride 10 mEq tablet,extended release(part/cryst) 20 meq PO TID SUPPLEMENT 07/02/20 [History Last Taken 02/15/22] vitamin B complex 1 tab PO DAILY SUPPLEMENT 07/02/20 [History Last Taken 02/15/22] cetirizine 10 mg capsule 10 mg PO DAILY #30 caps 07/04/20 [Rx Last Taken Unknown] furosemide 40 mg tablet 40 mg PO DAILY #30 tabs 07/04/20 [Rx Last Taken 1 Week Ago ~02/09/22] Allergy/AdvReac Type Severity Reaction Status Date / Time enoxaparin [From Lovenox] Allergy Other Verified 02/16/22 12:19 heparin Allergy Other Verified 02/16/22 12:19 aspirin AdvReac Other Verified 02/16/22 12:19 Iodinated Contrast Media AdvReac OTHER Verified 02/16/22 12:19 [CONTRASTS] Family History (Reviewed 02/16/22 @ 15:31 by Ciarra Lynne [employer], [employer]) Father Cancer lung Brother Cancer testicular Surgical History (Updated 02/16/22 @ 15:33 by Ciarra Lynne NP, [employer]) AV fistula H/O total cystectomy History of cataract extraction History of corrected cleft lip and palate History of tonsillectomy Social History (Updated 02/16/22 @ 15:35 by Ciarra Lynne NP, [employer]) household members: none Smoking Status: Former smoker how long ago did patient quit smokin alcohol intake: never substance use type: does not use caffeine: No ROS Constitutional Constitutional: Reports fatigue and weakness; Denies change in weight, chills or fever(s) Cardiovascular Cardiovascular: Denies chest pain, edema, lightheadedness, palpitations or syncope Respiratory/Chest Respiratory/Chest: Denies cough, dyspnea, productive cough, shortness of breath at rest, shortness of breath with exertion or wheezing Gastrointestinal Gastrointestinal: Reports nausea; Denies abdominal pain, constipation, diarrhea or vomiting Genitourinary Genitourinary: Reports other Details: decreased urine output ; Denies burning urination, difficulty urinating, dysuria, hematuria, urinary frequency, urinary incontinence or urinary urgency Musculoskeletal Musculoskeletal: Denies back pain, joint pain or muscle weakness Integumentary Integumentary: Denies erythema, lesions, rash or wounds Neurologic Neurologic: Denies abnormal speech, confusion, dizziness, focal weakness, numbness, paresthesias, seizure-like activity or syncope Psychiatric Psychiatric: Denies anxiety or depression Hematologic/Lymphatic Hematologic/Lymphatic: Denies anemia, easy bleeding or easy bruising Allergic/Immunologic Allergic/Immunologic: Denies hives or asthma Vital Signs Vital Signs Vital Signs: 02/16/22 12:15 02/16/22 14:00 Temperature 97.2 F L Temperature Source Temporal Pulse Rate 91 Respiratory Rate 22 H Respiratory Effort Short of Breath Respiratory Pattern Tachypnea Blood Pressure 133/76 H Blood Pressure Mean 95 Pulse Ox 99 Oxygen Delivery Method Room Air Room Air Weight Weight: 227 lb Body Mass Index (BMI) 33.5 Physical Exam Const alert and oriented x3 HEENT normocephalic Mouth: dry mucous membranes Eyes PERRL, EOMs intact bilaterally and conjunctivae normal Neck no lymphadenopathy Resp normal respiratory effort and clear to auscultation bilaterally Cardio regular rate, regular rhythm and no murmurs Peripheral Pulses: pulses 2+ throughout GI normal to inspection, nondistended, normoactive bowel sounds, non-tender and non-distended Extremity normal to inspection Skin no rashes or lesions noted Lesions: no lesions Rashes: no rashes Trauma: no lacerations or abrasions Neuro CN's II-XII intact bilaterally, no focal motor deficits, no sensory deficits noted and deep tendon reflexes 2+ bilaterally Psych mental status grossly normal and affect normal Results Lab / Micro Data Result Diagrams: 02/16/22 13:50 02/16/22 13:50 Labs: Laboratory Results - last 24 hr 02/16/22 13:50: WBC 7.3, RBC 4.35 L, Hgb 13.5, Hct 42.3, MCV 97.2 H, MCH 31.0, MCHC 31.9 L, RDW Std Deviation 55.1 H, RDW Coeff of Lencho 15.6 H, Plt Count 129 L, MPV 9.9, Immature Gran % (Auto) 0.400, Neut % (Auto) 86.8 H, Lymph % (Auto) 5.7 L, Cabell % (Auto) 6.1, Eos % (Auto) 0.7, Baso % (Auto) 0.3, Absolute Neuts (auto) 6.4, Absolute Lymphs (auto) 0.42 L, Nucleated RBC % 0, Platelet Estimate ADEQUATE, RBC Morphology NORM C+C 02/16/22 13:50: Sodium 145, Potassium 5.4 H, Chloride 125 H, Carbon Dioxide 9.0 L*, Anion Gap 11, BUN 133 H*, Creatinine 5.59 H, Estim Creat Clear Calc 11.42, Est GFR (MDRD) Af Amer 13 L, Est GFR (MDRD) Non-Af 11 L, BUN/Creatinine Ratio 23.8 H, Glucose 100, Calcium 9.3, Total Bilirubin 0.70, AST 13 L, ALT 22, Alkaline Phosphatase 56, Total Protein 7.5, Albumin 3.2, Globulin 4.3 H, Albumin/Globulin Ratio 0.7 L 02/16/22 13:50: B-Natriuretic Peptide 866.4 H Radiology Impression Chest X-Ray 02/16/22 14:15 IMPRESSION: No acute abnormality is seen. Electronically Signed: Rd Hernandez MD at 14:40 EDT , Assessment & Plan Assessment/Plan (1) CKD (chronic kidney disease) stage 4, GFR 15-29 ml/min: PLAN: Plan 1. Acute kidney injury with uremia and hyperkalemia on chronic kidney disease stage IV- Consult nephrology. Hold nephrotoxic regimen. Right AV fistula in place. Plan to begin dialysis. 2. Paroxysmal atrial fibrillation-Per son and patient, not new onset. Found previously postoperatively as well as outpatient by PCP. Not on anticoagulation. Continue carvedilol. 3. History of DVT/PE-history of IVC filter placement. Previously on Xarelto however this was discontinued due to GI bleed.? 4. Chronic anemia-stable, trend CBC.? Receives weekly Venofer infusion per nephrology. 5. Hypertension-continue home Coreg, amlodipine. 6. Hyperlipidemia-not on regimen. 7. History of bladder cancer-status post resection and reconstructive surgery. 8. History of lymphoma-in remission. DVT prophylaxis- heparin sc This patient was seen by SONALI Blandon under the supervision of Dr. Mejia. Time spent examining patient, reviewing data and subsequent management of care: 25 minutes Documented by User: Dr. River Mejia, DO 02/16/22 16:26 HPI - General General Date of Admission: 02/16/22 [facility] Medical History (Updated 02/16/22 @ 15:33 by Ciarra Lynne NP, [employer]) Acute kidney injury Anemia Bladder cancer CKD (chronic kidney disease) stage 4, GFR 15-29 ml/min Elevated troponin Essential hypertension History of DVT (deep vein thrombosis) History of pulmonary embolism History of solitary pulmonary nodule Left upper chest discomfort Lower gastrointestinal bleeding Lymphoma Lymphoma Neutropenic fever Pancytopenia Preop cardiovascular exam Renal calculus Shortness of breath VTE (venous thromboembolism) Home Medications carvedilol 6.25 mg tablet 6.25 mg PO BID blood pressure 04/24/17 [History Last Taken 02/15/22] ferrous sulfate 325 mg (65 mg iron) tablet 325 mg PO TIDCM SUPPLEMENT 11/06/19 [History Last Taken 02/15/22] amlodipine 5 mg tablet 5 mg PO DAILY BP 11/07/19 [History Last Taken 07/02/20] polyethylene glycol 3350 17 gram/dose oral powder 17 gm PO DAILY CONSTIPATION 07/02/20 [History Last Taken 02/14/22] potassium chloride 10 mEq tablet,extended release(part/cryst) 20 meq PO TID SUPPLEMENT 07/02/20 [History Last Taken 02/15/22] vitamin B complex 1 tab PO DAILY SUPPLEMENT 07/02/20 [History Last Taken 02/15/22] cetirizine 10 mg capsule 10 mg PO DAILY #30 caps 07/04/20 [Rx Last Taken Unknown] furosemide 40 mg tablet 40 mg PO DAILY #30 tabs 07/04/20 [Rx Last Taken 1 Week Ago ~02/09/22] Allergy/AdvReac Type Severity Reaction Status Date / Time enoxaparin [From Lovenox] Allergy Other Verified 02/16/22 12:19 heparin Allergy Other Verified 02/16/22 12:19 aspirin AdvReac Other Verified 02/16/22 12:19 Iodinated Contrast Media AdvReac OTHER Verified 02/16/22 12:19 [CONTRASTS] Family History (Reviewed 02/16/22 @ 15:31 by Ciarra Lynne [employer], [employer]) Father Cancer lung Brother Cancer testicular Surgical History (Updated 02/16/22 @ 15:33 by Ciarra Mgaed [employer], [employer]) AV fistula H/O total cystectomy History of cataract extraction History of corrected cleft lip and palate History of tonsillectomy Social History (Updated 02/16/22 @ 15:35 by Ciarra Lynne NP, [employer]) household members: none Smoking Status: Former smoker how long ago did patient quit smokin alcohol intake: never substance use type: does not use caffeine: No Results Lab / Micro Data Result Diagrams: 02/16/22 13:50 02/16/22 13:50 Assessment & Plan Assessment/Plan (1) CKD (chronic kidney disease) stage 4, GFR 15-29 ml/min: Charges/Coding Addendum Addendum: Patient was seen and examined independently of Ciarra Lynne today, he was sent to the ER today for evaluation following an office visit with his anvil worker, his labs were noted to be abnormal and the patient was felt to be uremic. He has had a history of chronic kidney disease and he has a fistula present but its never been used, it was planned according to the anvil worker that the patient undergo dialysis starting today after he was admitted to the hospital. Patient was also noted to be in atrial fibrillation with a well-controlled ventricular response, his son stated that the patient has had a history of atrial fibrillation before, I talked with his PCP by phone today who stated that she could not remember but felt there was a specific reason why the patient was not on anticoagulation-she states the patient is a fall risk, but she felt as if the patient's oncologist did not want him to be on anticoagulation. She stated that she would get back with me later on today after she reviews her office notes. Patient had complained today of some tremor and forgetfulness as well as some nausea, his anvil worker (Dr. He) felt that the patient was uremic and his labs showed him to be acidotic. On examination he appeared in good health and spirits. Vital signs as documented. Skin warm and dry and without overt rashes. Neck without JVD, neck was supple, trachea midline, thyroid was normal. Lungs clear bilaterally, normal air movement was noted. Heart exam notable for irregular rhythm, normal sounds and absence of murmurs, rubs or gallops. Abdomen unremarkable and without evidence of organomegaly, masses, or abdominal aortic enlargement. Bowel sounds are present, abdomen is not distended. Extremities nonedematous, no cyanosis was noted, no clubbing was noted. Neuro: Cranial nerves II through XII are grossly intact, no focal motor deficits were noted, sensation to light touch and pinprick intact, motor exam 5/5 throughout. Psych: Patient is alert, patient is a poor informant Labs obtained in the emergency room showed his CBC to be unremarkable, patient's bicarb level was low at 9, his BUN was elevated at 133, his creatinine was elevated at 5.59. Patient's potassium was 5.4. EKG showed atrial fibrillation with well-controlled ventricular response of approximately 90, patient's beta natruretic peptide was elevated at 866, patient's pulse ox was 96 on room air. His chest x-ray was unremarkable. Impression: #1 acute uremia-patient will be admitted to [facility], he will undergo dialysis today, nephrology will participate in his care. #2 paroxysmal atrial fibrillation-for now, I will not anticoagulate the patient, he is on rate control medication currently as an outpatient. #3 essential hypertension-patient is on amlodipine #4 end-stage renal disease requiring dialysis-again patient will undergo dialysis today and it will likely be repeated tomorrow. I have reviewed Ciarra Lynne's history and physical including her medical assessment and plan of care with the above additions endorse it. Total clinical time spent by myself addressing the patient's medical issues, reviewing the data, and collaborating with patient's care team: 45 minutes Visit Charges Inpatient E&M: [id number] Init Hosp L3
[2022-02-16] MEDS: Dextrose 50%-Water 25 GM/50 ML DISP.SYRIN IV (15:32)
[2022-02-16] MEDS: Insulin Lispro 10 UNIT in Syringe 0 ML 6 UNIT IV (15:33)
[2022-02-16] MEDS: Calcium Gluconate IV 3 GM in Syringe 1 EACH IV (15:34)
[2022-02-16] MEDS: Ferrous Sulfate 325 MG Tablet PO (16:33)
--- NOTE | 2022-02-16 17:21 | ED.RN ---
Dispo cancelled, unable to chart on intervention.
--- NOTE | 2022-02-16 21:38 | EKG12_ITS ---
Test Reason : CP Blood Pressure : / mmHG Vent. Rate : 101 BPM Atrial Rate : 000 BPM P-R Int : 000 ms QRS Dur : 172 ms QT Int : 344 ms P-R-T Axes : 000 -86 082 degrees QTc Int : 446 ms Atrial fibrillation with rapid ventricular response Left axis deviation Right bundle branch block Abnormal ECG Confirmed by CARIE BYERS, MADHU ([id number]), editor city [place] ([id number]) on 02/19/2022 2:21:08 PM Referred By: MINNA Confirmed By:JEET DARNELL MD
--- NOTE | 2022-02-16 21:45 | RAD_ITS ---
STUDY: X-RAY CHEST REASON FOR EXAM: Male, 76 years old. SHORTNESS OF BREATH TECHNIQUE: AP portable COMPARISON: 02/16/2022 2:29 PM. FINDINGS: Tiny calcified nodules demonstrated in left lower lobe. There is no demonstrated pleural abnormality. Mediport catheter has been inserted with tip at the atrial caval junction Heart is prominent.. Normal mediastinum. Calcified left hilar nodes. Normal visualized pulmonary arteries. Mildly calcified aortic arch and descending thoracic aorta. Normal visualized thoracic spine. Normal visualized ribs, clavicles, and shoulders. There is no demonstrated abnormality of the visualized soft tissue structures of the upper abdomen. RAD/Chest 1 View (Portable) IMPRESSION: ASHD and old granulomatous disease. No acute disease Electronically Signed: Felipe Blunt MD at 22:07 EDT ,
--- NOTE | 2022-02-16 22:00 | PCM.HOSP.N ---
Hospitalist Note Notified by PCU charge nurse that public safety teacher concerned with patients labored breathing, patient was placed on 2l n/c. upon evaluation patient has increased work of breathing with diminished lung sounds. case discussed with Dr. Navarro who agreed with obtaining a CXR, ABG and EKG.
--- NOTE | 2022-02-16 22:02 | DIALYSIS ---
Hemodialysis tx completed x 2.5 hours. No fluid removed as today was first dialysis ever. Hep labs ordered. Pt had no improvement in resp. status post dialysis. Remains labored breathing 20-40bpm. Pt increasing anxious and agitated. Nurse practioner Radha at bedside to assess at completion of dialysis. Verbal report given to KRUPA Aguayo. Next dialysis tx 02/17/22
[2022-02-16] MEDS: Nystatin Ointment 1 APPLIC TOPICAL (22:29)
[2022-02-16] MEDS: Carvedilol 6.25 MG Tablet PO (22:30)
[2022-02-16] MEDS: APIXABAN 2.5 MG TABLET PO (22:30)
[2022-02-16] MEDS: 0.9% Saline Lock 10 ML Syringe IV ×2 (22:40→22:59)
[2022-02-16 22:51] LABS: Allen Test Positive; Base Excess -10 mmol/L (-2 to +2); Bicarbonate 15.5 mmol/L (22-26); Blood Gas Specimen Type ART; O2 Delivery Device Cannula; PO2 95 mmHG (75-100); SITE L Brach; SO2 97 % (95-99); Total Carbon Dioxide 16 mmol/L; pCO2 28.3 mmHg (35-45); pH 7.35 (7.35-7.45)
[2022-02-16] MEDS: Metoprolol Tartrate 5 MG/5 ML Vial IV (22:59)
[2022-02-17] VITALS (13 sets, daily range): BP systolic 104–158; BP diastolic 56–75; PULSE 79–98; RESP 16–22; TEMP 36.1–36.8; O2SAT 93–98
[2022-02-17] MEDS: Ondansetron 4 MG/2 ML Vial IV ×2 (03:20→20:26)
[2022-02-17] MEDS: 0.9% Saline Lock 10 ML Syringe IV ×4 (03:20→20:26)
[2022-02-17] MEDS: Nystatin Ointment 1 APPLIC TOPICAL (05:34)
[2022-02-17 05:48] LABS: Absolute Lymphocyte Count 0.39 X10^3/uL (0.83-4.51); Absolute Neutrophil Count 6.7 X10^3/uL (2.0-7.7); Basophil# 0.01 X10^3/uL; Basophil% 0.1 % (0-1); Eosinophil# 0.15 X10^3/uL; Eosinophils% 1.9 % (0-5); Hematocrit 38.8 % (40-54); Hemoglobin 12.9 g/dL (13.0-16.5); Lymphocyte # 0.39 X10^3/ul (0.83-4.51); Lymphocyte % 4.9 % (19-41); Mean Corp Hgb Conc 33.2 g/dL (32-36); Mean Corpuscular Hgb 31.4 pg (27.0-32.0); Mean Corpuscular Volume 94.4 fL (80-94); Mean Platelet Vol. 10.7 fl (6.2-12.0); Monocyte# 0.69 X10^3/uL; Monocyte% 8.6 % (0-10); NRBC Flagged by Analyzer 0 % (0-5); Neutrophil # 6.73 X10^3/uL (2.7-7.7); Neutrophil % 84.2 % (47-70); POSITIVE COUNT YES; POSITIVE DIFFERENTIAL YES; Platelet Count 97 K/mm3 (150-450); RBC Distribution Width CV 15.1 % (11.6-14.6); RBC Distribution Width SD 52.2 fl (35.1-43.9); Red Blood Count 4.11 M/mm3 (4.6-6.2)
[2022-02-17 06:15] LABS: Differential Indicated SCAN CRITERIA MET
[2022-02-17 06:31] LABS: Anion Gap 11 (5-15); BUN 109 mg/dL (7-18); BUN/Creat Ratio 25.3 RATIO (10-20); Calcium,Total 8.5 mg/dL (8.5-10.1); Chloride 116 mmol/L (98-107); EST Glomerular Filtration Rate 14 mL/min (>60); Est Glom Filt Rate - Afr Amer 17 mL/min (>60); Estimated Creatinine Clearance 14.84 ml/min; Glucose 118 mg/dL (74-106); Potassium 4.2 mmol/L (3.5-5.1); Sodium Level 142 mmol/L (136-145)
[2022-02-17 06:41] LABS: Differential Comment SCANNED; Platelet Estimate SLT DEC (ADEQ)
[2022-02-17 08:24] LABS: Hepatitis B Surface Antibody Non-Reactive
[2022-02-17 08:39] LABS: Hepatitis B Surface Antigen Non-Reactive (Nonreactive)
[2022-02-17] MEDS: Carvedilol 6.25 MG Tablet PO ×2 (09:22→22:07)
[2022-02-17] MEDS: APIXABAN 2.5 MG TABLET PO (09:22)
[2022-02-17] MEDS: Loratadine 10 MG Tablet PO (09:22)
[2022-02-17] MEDS: amLODIPine 5 MG Tablet PO (09:22)
--- NOTE | 2022-02-17 09:27 | PCM.CONS.R ---
Assessment & Plan Assessment/Plan (1) ESRD (end stage renal disease): PLAN: pt at ESRD dialysis yesterday and today. Next dialysis then TTS as outpt. Arrange dialysis at [facility] [place] (2) Metabolic acidosis: PLAN: correct with dialysis (3) Hyperkalemia: PLAN: correct with dialysis (4) Essential hypertension: PLAN: stable (5) Bladder cancer: QUALIFIERS: Bladder location: unspecified site Qualified Code(s): C67.9 - Malignant neoplasm of bladder, unspecified (6) Iron deficiency anemia: PLAN: hgb stable (7) Uremia: HPI Consult Data Date of Consult: 02/18/22 HPI Narrative Reason for Consultation: kidney failure need to start dialysis HPI Narrative: RIA MARIANO, is a 76 M who was sent to ED from my office yesterday for uremic symptoms, shortness of breath, need to initiate dialysis emergently. He complains of nausea, vomiting, anorexia, weakness. He was found to be hyperkalemic, worsening renal function with severe metabolic acidosis. He has an AVF right arm ready to be used. He had a pre-emptive PD catheter placed that was removed for exposed cuff several months back. He has been relatively stable until recently. He noticed drop in urine output. BUN 130 Creatiine 5.59 from his usual 3's. He received his first treatment last night and second treatment today. [facility] Medical History (Updated 02/18/22 @ 08:[address] Sonia He, DO) Acute kidney injury Anemia Bladder cancer CKD (chronic kidney disease) stage 4, GFR 15-29 ml/min Elevated troponin Essential hypertension History of DVT (deep vein thrombosis) History of pulmonary embolism History of solitary pulmonary nodule Left upper chest discomfort Lower gastrointestinal bleeding Lymphoma Lymphoma Neutropenic fever Pancytopenia Paroxysmal A-fib Preop cardiovascular exam Renal calculus Shortness of breath VTE (venous thromboembolism) Home Medications carvedilol 6.25 mg tablet 6.25 mg PO BID blood pressure 04/24/17 [History Last Taken 02/15/22] ferrous sulfate 325 mg (65 mg iron) tablet 325 mg PO TIDCM SUPPLEMENT 11/06/19 [History Last Taken 02/15/22] amlodipine 5 mg tablet 5 mg PO DAILY BP 11/07/19 [History Last Taken 07/02/20] polyethylene glycol 3350 17 gram/dose oral powder 17 gm PO DAILY CONSTIPATION 07/02/20 [History Last Taken 02/14/22] potassium chloride 10 mEq tablet,extended release(part/cryst) 20 meq PO TID SUPPLEMENT 07/02/20 [History Last Taken 02/15/22] vitamin B complex 1 tab PO DAILY SUPPLEMENT 07/02/20 [History Last Taken 02/15/22] cetirizine 10 mg capsule 10 mg PO DAILY #30 caps 07/04/20 [Rx Last Taken Unknown] furosemide 40 mg tablet 40 mg PO DAILY #30 tabs 07/04/20 [Rx Last Taken 1 Week Ago ~02/09/22] Allergy/AdvReac Type Severity Reaction Status Date / Time enoxaparin [From Lovenox] Allergy Other Verified 02/16/22 12:19 heparin Allergy Other Verified 02/16/22 12:19 aspirin AdvReac Other Verified 02/16/22 12:19 Iodinated Contrast Media AdvReac OTHER Verified 02/16/22 12:19 [CONTRASTS] Family History Father Cancer lung Brother Cancer testicular Surgical History AV fistula H/O total cystectomy History of cataract extraction History of corrected cleft lip and palate History of tonsillectomy Social History (Updated 02/16/22 @ 15:35 by Ciarra Lynne NP, EMS INSTRUCTOR-C) household members: none Smoking Status: Former smoker how long ago did patient quit smokin alcohol intake: never substance use type: does not use caffeine: No ROS Constitutional Constitutional: Reports malaise and weakness Eyes Eyes: Denies change in vision Cardiovascular Cardiovascular: Reports dyspnea on exertion; Denies chest pain, edema or syncope Respiratory/Chest Respiratory/Chest: Reports dyspnea on exertion and shortness of breath at rest Gastrointestinal Gastrointestinal: Reports anorexia, nausea and vomiting; Denies abdominal pain or diarrhea Genitourinary Genitourinary: Reports oliguria Musculoskeletal Musculoskeletal: Denies joint swelling Integumentary Integumentary: Denies rash Neurologic Neurologic: Reports tremor(s) and weakness Psychiatric Psychiatric: Reports anxiety Hematologic/Lymphatic Hematologic/Lymphatic: Reports anemia Physical Exam Const alert and oriented x3 Constitutional Narrative: mild tachypnea General Appearance: well developed Eyes EOMs intact bilaterally Neck no JVD Resp clear to auscultation bilaterally Cardio regular rate and no rub GI non-tender and non-distended Auscultation: normoactive bowel sounds Palpation: soft Extremity no clubbing, cyanosis or edema Skin no rashes or lesions noted General Skin Exam: Negative for ecchymosis Neuro Sensorium / Orientation: awake and alert Psych cooperative Mood & Affect: anxious Lab / Micro Data Result Diagrams: 02/18/22 05:03 02/18/22 05:03 Labs: Laboratory Results - last 24 hr 02/16/22 13:50: WBC 7.3, RBC 4.35 L, Hgb 13.5, Hct 42.3, MCV 97.2 H, MCH 31.0, MCHC 31.9 L, RDW Std Deviation 55.1 H, RDW Coeff of Lencho 15.6 H, Plt Count 129 L, MPV 9.9, Immature Gran % (Auto) 0.400, Neut % (Auto) 86.8 H, Lymph % (Auto) 5.7 L, Howell % (Auto) 6.1, Eos % (Auto) 0.7, Baso % (Auto) 0.3, Absolute Neuts (auto) 6.4, Absolute Lymphs (auto) 0.42 L, Nucleated RBC % 0, Platelet Estimate ADEQUATE, RBC Morphology NORM C+C 02/16/22 13:50: Sodium 145, Potassium 5.4 H, Chloride 125 H, Carbon Dioxide 9.0 L*, Anion Gap 11, BUN 133 H*, Creatinine 5.59 H, Estim Creat Clear Calc 11.42, Est GFR (MDRD) Af Amer 13 L, Est GFR (MDRD) Non-Af 11 L, BUN/Creatinine Ratio 23.8 H, Glucose 100, Calcium 9.3, Total Bilirubin 0.70, AST 13 L, ALT 22, Alkaline Phosphatase 56, Total Protein 7.5, Albumin 3.2, Globulin 4.3 H, Albumin/Globulin Ratio 0.7 L 02/16/22 13:50: B-Natriuretic Peptide 866.4 H 02/16/22 20:00: Hep Bs Antigen Non-Reactive 02/16/22 20:00: Hep Bs Antibody Non-Reactive 02/17/22 05:20: WBC 8.0, RBC 4.11 L, Hgb 12.9 L, Hct 38.8 L, MCV 94.4 H, MCH 31.4, MCHC 33.2, RDW Std Deviation 52.2 H, RDW Coeff of Lencho 15.1 H, Plt Count 97 L, MPV 10.7, Immature Gran % (Auto) 0.300, Neut % (Auto) 84.2 H, Lymph % (Auto) 4.9 L, Howell % (Auto) 8.6, Eos % (Auto) 1.9, Baso % (Auto) 0.1, Absolute Neuts (auto) 6.7, Absolute Lymphs (auto) 0.39 L, Nucleated RBC % 0, Differential Comment SCANNED, Platelet Estimate SLT 02/17/22 05:20: Sodium 142, Potassium 4.2, Chloride 116 H, Carbon Dioxide 15.0 L, Anion Gap 11, BUN 109 H*, Creatinine 4.30 H, Estim Creat Clear Calc 14.84, Est GFR (MDRD) Af Amer 17 L, Est GFR (MDRD) Non-Af 14 L, BUN/Creatinine Ratio 25.3 H, Glucose 118 H, Calcium 8.5 ABG Data ABG results: ABG 02/16/22 22:43 Specimen Type ART Sample Site L Brach pH 7.35 Bicarbonate Actual 15.5 L Total CO2 16 Base Excess -10 L O2 Saturation 97 ABG pCO2 28.3 L ABG pO2 95 Giuseppe Test Positive O2 Delivery Device Cannula Liter Flow 2.0 Radiology Impression Chest X-Ray 02/16/22 14:15 IMPRESSION: No acute abnormality is seen. Electronically Signed: Rd Hernandez MD at 14:40 EDT , Chest X-Ray 02/16/22 21:45 IMPRESSION: ASHD and old granulomatous disease. No acute disease Electronically Signed: Felipe Blunt MD at 22:07 EDT ,
--- NOTE | 2022-02-17 09:41 | PN.HOSP_ITS ---
Documented by User: Ciarra Lynne NP, DATA REVIEW SPECIALIST-C 02/17/22 10:19 Subjective Subjective Patient seen and examined. States he feels his weakness is improving. Denies nausea. To undergo additional dialysis today. Objective Data Objective Data Vital Signs: Vital Signs Temp Pulse Resp BP Pulse Ox O2 Del Method O2 Flow Rate 98.1 F 94 18 140/59 H 95 Room Air 2 02/17/22 09:07 02/17/22 09:07 02/17/22 09:07 02/17/22 09:07 02/17/22 09:07 02/17/22 09:07 02/17/22 03:38 Oxygen Flow Rate (L/min) 2 Oxygen Delivery Method Room Air Weight: 227 lb 11.8 oz Body Mass Index (BMI) 32.6 Intake & Output: Intake and Output for Last 24 Hours 02/15/22 02/16/22 02/17/22 23:59 23:59 23:59 Intake Total 430 / 430 Output Total 200 / 200 Balance 430 / 430 -200 / -200 Lab / Micro Data Result Diagrams: 02/17/22 05:20 02/17/22 05:20 Labs: Laboratory Results - last 24 hr 02/16/22 13:50: WBC 7.3, RBC 4.35 L, Hgb 13.5, Hct 42.3, MCV 97.2 H, MCH 31.0, MCHC 31.9 L, RDW Std Deviation 55.1 H, RDW Coeff of Lencho 15.6 H, Plt Count 129 L, MPV 9.9, Immature Gran % (Auto) 0.400, Neut % (Auto) 86.8 H, Lymph % (Auto) 5.7 L, [place] % (Auto) 6.1, Eos % (Auto) 0.7, Baso % (Auto) 0.3, Absolute Neuts (auto) 6.4, Absolute Lymphs (auto) 0.42 L, Nucleated RBC % 0, Platelet Estimate ADEQUATE, RBC Morphology NORM C+C 02/16/22 13:50: Sodium 145, Potassium 5.4 H, Chloride 125 H, Carbon Dioxide 9.0 L*, Anion Gap 11, BUN 133 H*, Creatinine 5.59 H, Estim Creat Clear Calc 11.42, Est GFR (MDRD) Af Amer 13 L, Est GFR (MDRD) Non-Af 11 L, BUN/Creatinine Ratio 23.8 H, Glucose 100, Calcium 9.3, Total Bilirubin 0.70, AST 13 L, ALT 22, Alkaline Phosphatase 56, Total Protein 7.5, Albumin 3.2, Globulin 4.3 H, Albumin/Globulin Ratio 0.7 L 02/16/22 13:50: B-Natriuretic Peptide 866.4 H 02/16/22 20:00: Hep Bs Antigen Non-Reactive 02/16/22 20:00: Hep Bs Antibody Non-Reactive 02/17/22 05:20: WBC 8.0, RBC 4.11 L, Hgb 12.9 L, Hct 38.8 L, MCV 94.4 H, MCH 31.4, MCHC 33.2, RDW Std Deviation 52.2 H, RDW Coeff of Lencho 15.1 H, Plt Count 97 L, MPV 10.7, Immature Gran % (Auto) 0.300, Neut % (Auto) 84.2 H, Lymph % (Auto) 4.9 L, [place] % (Auto) 8.6, Eos % (Auto) 1.9, Baso % (Auto) 0.1, Absolute Neuts (auto) 6.7, Absolute Lymphs (auto) 0.39 L, Nucleated RBC % 0, Differential Comment SCANNED, Platelet Estimate SLT 02/17/22 05:20: Sodium 142, Potassium 4.2, Chloride 116 H, Carbon Dioxide 15.0 L , Anion Gap 11, BUN 109 H*, Creatinine 4.30 H, Estim Creat Clear Calc 14.84, Est GFR (MDRD) Af Amer 17 L, Est GFR (MDRD) Non-Af 14 L, BUN/Creatinine Ratio 25.3 H , Glucose 118 H, Calcium 8.5 ABG Data ABG results: ABG 02/16/22 22:43 Specimen Type ART Sample Site L Brach pH 7.35 Bicarbonate Actual 15.5 L Total CO2 16 Base Excess -10 L O2 Saturation 97 ABG pCO2 28.3 L ABG pO2 95 Giuseppe Test Positive O2 Delivery Device Cannula Liter Flow 2.0 Radiography Diagnostic Testing: Radiology Impression Chest X-Ray 02/16/22 14:15 IMPRESSION: No acute abnormality is seen. Electronically Signed: Rd Hernandez MD at 14:40 EDT , Chest X-Ray 02/16/22 21:45 IMPRESSION: ASHD and old granulomatous disease. No acute disease Electronically Signed: Felpie Blunt MD at 22:07 EDT , Physical Exam Const alert and oriented x3 HEENT normocephalic and moist oral mucous membranes Eyes PERRL, EOMs intact bilaterally and conjunctivae normal Neck no lymphadenopathy Resp clear to auscultation bilaterally Auscultation: diminished lung sounds Cardio regular rate, regular rhythm and no murmurs Peripheral Pulses: pulses 2+ throughout GI normal to inspection, nondistended, normoactive bowel sounds, non-tender and non-distended Extremity normal to inspection Extremity Narrative: Right upper extremity fistula Skin no rashes or lesions noted Lesions: no lesions Rashes: no rashes Trauma: no lacerations or abrasions Neuro CN's II-XII intact bilaterally, no focal motor deficits, no sensory deficits noted and deep tendon reflexes 2+ bilaterally Psych mental status grossly normal and affect normal Assessment & Plan Assessment/Plan (1) Acute kidney injury superimposed on chronic kidney disease: PLAN: Plan 1.? Acute kidney injury on chronic kidney disease stage IV-nephrology consulted. Right AV fistula in place. Dialysis x1 on admission. To undergo additional dialysis today. Uremia and hyperkalemia resolved. IV lasix per nephrology. 2.? Paroxysmal atrial fibrillation-Per son and patient, not new onset.? Found previously postoperatively as well as outpatient by PCP.? Continue Eliquis, carvedilol. 3. History of DVT/PE-history of IVC filter placement. 4. Anemia of chronic disease/iron deficiency anemia-stable, trend CBC.? 5. Hypertension-continue home Coreg, amlodipine. 6. Hyperlipidemia-not on regimen. 7. History of bladder cancer-status post resection and reconstructive surgery. 8. History of lymphoma-in remission. DVT prophylaxis- Eliquis This patient was seen by SONALI Blandon under the supervision of Dr. Dinero. Time spent examining patient, reviewing data and subsequent management of care: 14 minutes Documented by User: Dr. Ed Dinero, 02/17/22 12:09 Objective Data Lab / Micro Data Result Diagrams: 02/17/22 05:20 02/17/22 05:20 Assessment & Plan Assessment/Plan (1) Acute kidney injury superimposed on chronic kidney disease: Charges/Coding Addendum Addendum: Patient seen and examined independently. Data and vitals reviewed. I agree with the above note by the nurse practitioner. Subjective: Patient feels better today. Physical exam: Patient is no acute distress and afebrile. Slightly tremulous in his upper extremities. Heart rate regular and rhythm plus S1-S2 with any m urmurs Rubs. Lungs Are Clear to Auscultation Bilaterally. Abdomen Is Soft Nontender Nondistended with Normal Bowel Sounds. Extremities Are Any Signs Clubbing or Edema. She Did Visualize Wound Pictures and Shows a Right Groin Lesion with Surrounding Erythema. Assessment and plan 1. Acute on chronic kidney injury: Patient was having uremic type symptoms. Patient has been started on dialysis and received dialysis on and again will receive it today. 2. Right groin lesion. Apparently started by patient using a pocket knife. Is been present for some time. Patient is not febrile from that. Wound culture has been performed. Start broad-spectrum antibiotics with vancomycin and pipe racillin/tazobactam. DW Dr. Mccoy 3. Paroxysmal atrial fibrillation. Apixaban on hold for surgery. Last dose of apixaban was today at 930. Continue with carvedilol. 4. History of DVT/PE. Anticoagulation on hold for now. Patient has noted allergies to enoxaparin and heparin. Will hold off on anticoagulation at this point in time particular in light of the surgery. But if do need to initiate anticoagulation and would need to hold off on his oral agents, will have to further clarify what his adverse reactions were to the heparin and enoxaparin. If he does have severe reaction may need to consider another agent such as argatroban. 5. DVT prophylaxis: With holding anticoagulation, will add SCDs. Greater than 35minutes which was spent reviewing labs, documentation, discussing with surgery about anticoagulation and timing for surgery. Visit Charges Inpatient E&M: 18300 Subs Hosp L3
--- NOTE | 2022-02-17 09:55 | CASEMGMT ---
Addendum entered by Ro Martinez 02/17/22 11:10: Pt requests MWF 1st shift and this was placed on referral. Pt/son aware that pt will need transportation for the 1st OP HD. SStaten RN CM Original Note: RN CM assessment: Face to Face with patient for initial transition planning/care coordination assessment. RN CM introduced self and role at [facility], pt voices understanding and consents to assessment. Pt is lying in bed on room air with some tachypnea and use of accessory muscles.? Pt is A/O most of times but doesn't answer all questions at times and tries to joke around when questions not answered. Pt initially told this RN CM that he lives 'with someone' but would not tell this RN CM who 'someone' was and then son arrived and states pt lives alone. Son to bedside and assessment clarified with him. Care providers, pharmacy,?and demographics verified. ? Presentation: Pt sent from Dr. Hall office to have dialysis set up-pt has been seeing Dr. He monthly to follow Admitting dx: Acute on chronic kidney disease, hyperkalemia PCP: Enrique Specialists: kaz He Pharmacy: [facility] Insurance: Experiment A/B, EQO Prescription Benefit:?Yes Living Will/HPOA: Pt has LW/HPOA and is aware that they are not on file at [facility]. Pt states his son, Paul Rizvi, is HPOA. Son aware to bring copies in when able, voices understanding. LNOK: Paul Rizvi, son; Rody Rizvi, [id number] Living Arrangements: Pt lives alone in [address] [facility] and states no concerns at home. Pt is independent with ADL's. Son states pt normally very independent but has greatly declined in last several days. Transportation: Pt drives self and states no transportation concerns. DME/HHC: Pt has the following DME: cane, WW, grab bars, shower chair(but does not use), and 2L home oxygen w/ exertion and pt states uses prn. Pt states no need for any further DME. Pt states no hx of HHC but has been to [place] in past. Pt to be set up with OP HD and already has AV fistula in place for last year or so. Pt states has already been working with [email or web address] prior to now and would to continue with them for OP HD. Pt declines list of further HD centers. Referral created in [facility] portal and [facility] aware of pt referral. CM to follow. Pt states no concerns with going home at time of discharge but son does voice concerns with pt's weakness prior to admission. Pt is retired. Pt does not smoke cigarettes or drink ETOH. Pt voices no further concerns/needs. CM to follow therapy notes, HD referral, and for any further discharge planning/needs. Advised pt/son to ask for CM if any further questions/concerns/needs arise, voices understanding. Pt Goal: Home Plan: TBD, pending therapy evals and HD set up. SStjanel GENTILE CM
--- NOTE | 2022-02-17 10:59 | WOUNDNOTE ---
wound photo: right upper thigh
[2022-02-17] MEDS: Furosemide 40 MG/4 ML Vial IV ×2 (11:12→17:53)
--- NOTE | 2022-02-17 11:54 | CON.PCM.SX_ITS ---
Assessment & Plan Assessment/Plan (1) Superficial injury of groin with infection: PLAN: Patient is a 76-year-old male with CKD 4 admitted for initiation of hemodialysis who also exhibits a right groin infection. He reports a history of a boil in this location that he took upon himself to edith with a dirty pocket knife. On exam the wound has an infected appearance with erythema and drainage. There is also a foul odor from both groins. He admits to difficulty completing simple hygiene items with his recent weakness and shortness of breath. He confirms a history of a prior boil on his chest, but is unaware of any history of staph/MRSA. He did eat earlier today and in review of the chart, his MAR shows he was administered Eliquis earlier this morning. Given these 2 factors, I would like to postpone debridement of his right groin until tomorrow. Hospitalist has been notified of this plan and has discontinued Eliquis. R ecommend initiation of empiric antibiotic coverage for skin shoaib. HPI Consult Data Date of Consult: 02/17/22 HPI Narrative Reason for Consultation: Right groin wound HPI Narrative: RIA MARIANO, is a 76 M who presented to [facility] yesterday with complaints of progressive shortness of breath and plans are to start him on hemodialysis later today, however, during the course of his evaluation he was noted to have a infected?appearing right groin wound. Wound cultures were obtained and general surgery has been consulted to evaluate patient for this issue. Both Mr. Mariano and his son were available for history on arrival to the room. Mr. Mariano states that he had a boil come up in his right groin that he decided to edith himself with his own dirty pocket knife. He states there was some initial drainage, but it has become more tender following this procedure. He denies any subsequent fevers or chills. He and his son both relate that there is a history of 1 prior boil lesion on his chest remotely (estimated 25 years ago) that he addressed similarly by himself. There is some discrepancy with the chart, but patient's son states that his father was recently prescribed Eliquis after having been previously on Xarelto given his history of atrial fibrillation, DVT, and pulmonary embolism. His son also states that his father experienced heparin-induced thrombocytopenia during a prior hospitalization. Mr. Mariano has a history of bladder cancer and lymphoma. He is status post cystectomy for his bladder cancer. According to patient's son, his father lives alone and is largely independent in his activities of daily living. However, I have questioned whether Mr. Mariano has been able to perform simple hygiene items and he admits that he has been too weak to shower himself. His son does confirm that he lives relatively close to his father?approximately 13 miles away. [facility] Medical History (Updated 02/17/22 @ 12:[address] Benjamin Mccoy MD) Acute kidney injury Anemia Bladder cancer CKD (chronic kidney disease) stage 4, GFR 15-29 ml/min Elevated troponin Essential hypertension History of DVT (deep vein thrombosis) History of pulmonary embolism History of solitary pulmonary nodule Left upper chest discomfort Lower gastrointestinal bleeding Lymphoma Lymphoma Neutropenic fever Pancytopenia Preop cardiovascular exam Renal calculus Shortness of breath VTE (venous thromboembolism) Home Medications carvedilol 6.25 mg tablet 6.25 mg PO BID blood pressure 04/24/17 [History Last Taken 02/15/22] ferrous sulfate 325 mg (65 mg iron) tablet 325 mg PO TIDCM SUPPLEMENT 11/06/19 [History Last Taken 02/15/22] amlodipine 5 mg tablet 5 mg PO DAILY BP 11/07/19 [History Last Taken 07/02/20] polyethylene glycol 3350 17 gram/dose oral powder 17 gm PO DAILY CONSTIPATION 07/02/20 [History Last Taken 02/14/22] potassium chloride 10 mEq tablet,extended release(part/cryst) 20 meq PO TID SUPPLEMENT 07/02/20 [History Last Taken 02/15/22] vitamin B complex 1 tab PO DAILY SUPPLEMENT 07/02/20 [History Last Taken 02/15/22] cetirizine 10 mg capsule 10 mg PO DAILY #30 caps 07/04/20 [Rx Last Taken U nknown] furosemide 40 mg tablet 40 mg PO DAILY #30 tabs 07/04/20 [Rx Last Taken 1 Week Ago ~02/09/22] Allergy/AdvReac Type Severity Reaction Status Date / Time enoxaparin [From Lovenox] Allergy Other Verified 02/16/22 12:19 heparin Allergy Other Verified 02/16/22 12:19 aspirin AdvReac Other Verified 02/16/22 12:19 Iodinated Contrast Media AdvReac OTHER Verified 02/16/22 12:19 [CONTRASTS] Family History Father Cancer lung Brother Cancer testicular Surgical History (Updated 02/16/22 @ 15:33 by Ciarra Lynne NP, TIMERS INSPECTOR-C) AV fistula H/O total cystectomy History of cataract extraction History of corrected cleft lip and palate History of tonsillectomy Social History (Updated 02/16/22 @ 15:35 by Ciarra Lynne NP, TIMERS INSPECTOR-C) household members: none Smoking Status: Former smoker how long ago did patient quit smokin alcohol intake: never substance use type: does not use caffeine: No ROS Constitutional Constitutional: Denies chills or fever(s) Respiratory/Chest Respiratory/Chest: Reports dyspnea and shortness of breath with exertion Integumentary Integumentary: Reports new lesions Hematologic/Lymphatic Hematologic/Lymphatic: Reports easy bleeding Physical Exam Const alert, oriented x3 and no apparent distress General Appearance: cooperative Nutritional Appearance: obese Resp normal respiratory effort Narrative: Patient with approximately 4 cm lesion in the right groin with exposed subcutaneous tissue that has a blackened appearance consistent with necrosis. There is slight purulent drainage from the site. I do not easily palpate additional inguinal adenopathy. There is also a rim of deep purple erythema. Both groins are sweaty with a foul odor. Lab / Micro Data Result Diagrams: 02/17/22 05:20 02/17/22 05:20 Labs: Laboratory Results - last 24 hr 02/16/22 13:50: WBC 7.3, RBC 4.35 L, Hgb 13.5, Hct 42.3, MCV 97.2 H, MCH 31.0, M CHC 31.9 L, RDW Std Deviation 55.1 H, RDW Coeff of Lencho 15.6 H, Plt Count 129 L, MPV 9.9, Immature Gran % (Auto) 0.400, Neut % (Auto) 86.8 H, Lymph % (Auto) 5.7 L, [place] % (Auto) 6.1, Eos % (Auto) 0.7, Baso % (Auto) 0.3, Absolute Neuts (auto) 6.4, Absolute Lymphs (auto) 0.42 L, Nucleated RBC % 0, Platelet Estimate ADEQUATE, RBC Morphology NORM C+C 02/16/22 13:50: Sodium 145, Potassium 5.4 H, Chloride 125 H, Carbon Dioxide 9.0 L*, Anion Gap 11, BUN 133 H*, Creatinine 5.59 H, Estim Creat Clear Calc 11.42, Est GFR (MDRD) Af Amer 13 L, Est GFR (MDRD) Non-Af 11 L, BUN/Creatinine Ratio 23.8 H, Glucose 100, Calcium 9.3, Total Bilirubin 0.70, AST 13 L, ALT 22, Alkaline Phosphatase 56, Total Protein 7.5, Albumin 3.2, Globulin 4.3 H, Albumin/Globulin Ratio 0.7 L 02/16/22 13:50: B-Natriuretic Peptide 866.4 H 02/16/22 20:00: Hep Bs Antigen Non-Reactive 02/16/22 20:00: Hep Bs Antibody Non-Reactive 02/17/22 05:20: WBC 8.0, RBC 4.11 L, Hgb 12.9 L, Hct 38.8 L, MCV 94.4 H, MCH 31.4, MCHC 33.2, RDW Std Deviation 52.2 H, RDW Coeff of Lencho 15.1 H, Plt Count 97 L, MPV 10.7, Immature Gran % (Auto) 0.300, Neut % (Auto) 84.2 H, Lymph % (Auto) 4.9 L, [place] % (Auto) 8.6, Eos % (Auto) 1.9, Baso % (Auto) 0.1, Absolute Neuts (auto) 6.7, Absolute Lymphs (auto) 0.39 L, Nucleated RBC % 0, Differential Comment SCANNED, Platelet Estimate SLT 02/17/22 05:20: Sodium 142, Potassium 4.2, Chloride 116 H, Carbon Dioxide 15.0 L , Anion Gap 11, BUN 109 H*, Creatinine 4.30 H, Estim Creat Clear Calc 14.84, Est GFR (MDRD) Af Amer 17 L, Est GFR (MDRD) Non-Af 14 L, BUN/Creatinine Ratio 25.3 H, Glucose 118 H, Calcium 8.5 ABG Data ABG results: ABG 02/16/22 22:43 Specimen Type ART Sample Site L Brach pH 7.35 Bicarbonate Actual 15.5 L Total CO2 16 Base Excess -10 L O2 Saturation 97 ABG pCO2 28.3 L ABG pO2 95 Giuseppe Test Positive O2 Delivery Device Cannula Liter Flow 2.0 Radiology Impression Chest X-Ray 02/16/22 14:15 IMPRESSION: No acute abnormality is seen. Electronically Signed: Rd Hernandez MD at 14:40 EDT , Chest X-Ray 02/16/22 21:45 IMPRESSION: ASHD and old granulomatous disease. No acute disease Electronically Signed: Felipe Blunt MD at 22:07 EDT , Charges/Coding Visit Charges Inpatient E&M: 65736 Init Hosp L2
[2022-02-17] MEDS: Nystatin Powder 15gm Bottle 1 APPLIC TOPICAL ×2 (12:59→22:07)
[2022-02-17 13:14] LABS: M R Staph aureus DNA By PCR Negative (Negative); Probe Check PASS; Specimen Processing Control PASS; Staph aureus DNA By PCR NEGATIVE (Negative)
--- NOTE | 2022-02-17 13:17 | CASEMGMT ---
Patient has a Healthcare Power of Saddle Mechanic and a Healthcare Living Will. They are not on file at [facility]. KRUPA Rich when completing her assessment asked patient's son to bring in a copy of the documents. Abbie FRANCIS
--- NOTE | 2022-02-17 14:25 | CHAPLAIN ---
Type of Pastoral Visit _x__ Initial Visit ___ Follow-up Visit ___ On-call Visit ___ General Patient Visit ___ Spiritual Assessment ___ Family Conference ___ Bereavement ___ Rapid Response ___ Code Blue ___ Other (describe below) Pastoral Care Referral From _x__ Patient ___ Family ___ Nurse ___ Physician ___ Division Traffic Superintendent ___ Mounter Clarinets ___ Other (describe below) Sacrament/Intervention _x__ Active listening ___ Anointing ___ Yazidi ___ Bereavement ___ Communion ___ Klarissa exploration ___ ___ Life review _x__ Prayer ___ Reconciliation ___ Sacrament of Sick _x__ Supportive presence ___ Wedding ___ Other (describe below) Pastoral Comments dialysis had just been started on this patient when this bottom sander entered the room; son of pt is welcoming; offered to patient to stay or come back later and pt asked for this bottom sander to stay; pt is having some discomfort and RN trying to adjust his bed for more comfort; pt says he has a good friend that is also his tray service worker; pt is seeking spiritual care support and prayer; presence and prayer given; offer of support to son as well
--- NOTE | 2022-02-17 15:32 | CASEMGMT ---
Call from [facility] admissions stating they are working on referral and info clarified. CM to follow. Octavia GENTILE CM
--- NOTE | 2022-02-17 16:10 | PCM.RX.CS ---
Consult Pharmacy has been consulted to manage selected antiobiotic: Vancomycin Type of Consult: New start Suspected Infection: Skin/Soft tissue Labs: Sodium 142 mmol/L (136-145) 02/17/22 05:20 Potassium 4.2 mmol/L (3.5-5.1) 02/17/22 05:20 Chloride 116 mmol/L (98-107) H 02/17/22 05:20 Carbon Dioxide 15.0 mmol/L (21.0-32.0) L 02/17/22 05:20 Anion Gap 11 (5-15) 02/17/22 05:20 BUN 109 mg/dL (7-18) H* 02/17/22 05:20 Creatinine 4.30 mg/dL (0.70-1.30) H 02/17/22 05:20 Est GFR (MDRD) Af Amer 17 mL/min (>60) L 02/17/22 05:20 Est GFR (MDRD) Non-Af 14 mL/min (>60) L 02/17/22 05:20 BUN/Creatinine Ratio 25.3 RATIO (10-20) H 02/17/22 05:20 Glucose 118 mg/dL (74-106) H 02/17/22 05:20 Microbiology: Microbiology 02/17/22 10:00 Wound - Groin Gram Stain - Final Goal Trough: 15-20 mcg/mL Pharmacy Plan for Drug Dosing: NEW START IV VANCOMYCIN Consulting Physician: Dr. Dinero Indication: Wound infection Goal Trough: 15-20 SrCr: 4.30 HD pt CrCl: on Hemodialysis Comments: 2000mg IV x1 loading dose ordered to be given after HD session today, 02/17/22 Vancomycin Dose: Dosing based on levels. Discussed with nursing, pt is a relatively new start HD, not on a set schedule at this time. Pharmacy to dose based off of Pre-HD levels per protocol. Will not enter a second dose at this time due to unknown HD schedule. Pharmacy to follow-up daily to assess whether patient is to get HD until schedule is established. Pending Level: None scheduled, pharmacy to call daily to assess whether patient is to get HD. Once schedule is known, will plan to draw troughs and dose based on pre-HD vancomycin levels. Pharmacy Service will continue to monitor and adjust dosing as required.
--- NOTE | 2022-02-17 16:52 | DIALYSIS ---
Second hemodialysis tx today x 3hrs. UF -500mL removed. Pt anxious throughout tx. [place] pulled stasis achieved Dressings applied. Pt stable and alert. Report to KRUPA Devlin
--- NOTE | 2022-02-17 18:55 | NURSING ---
All documentation and medication administration completed by Delta Esquivel RN completed under the supervision of this RN.
--- NOTE | 2022-02-17 20:20 | NURSING ---
Patient's port dressing is coming loose. Lyndsey harris RN notified as this RN has not been competencied to change implanted medication port dressings at [facility].
[2022-02-17] MEDS: MELATONIN 10 MG TABLET 5 MG PO (22:24)
--- NOTE | 2022-02-17 23:47 | NURSING ---
22:05 pm This nurse explained to patient that I will be changing dressing to port site. Applied a mask on patient removed old dressing, assess the port site no bleeding, redness, swelling or drainage noted. Cleansed area with chlorhexidine for 30 seconds, applied new dressing to area. Patient denies any discomfort during this time.
[2022-02-18] VITALS (17 sets, daily range): BP systolic 104–163; BP diastolic 49–87; PULSE 56–108; RESP 16–26; TEMP 36.3–36.8; O2SAT 92–98; BMI 32.5
--- NOTE | 2022-02-18 02:46 | NURSING ---
Patient heard yelling out in to hallway. I entered patient's room and he is complaining that he is unable to urinate. The patient has had decreased urinary output per previous RN shift report and he is on dialysis. He has a purewik in place. I explained to him what a bladder scan is and offered to do one which he refused. Hailee GENTILE also came in to room and educated patient on bladder scan. He still refuses. Patient given blankets per request and call light placed in his left hand. I will continue to monitor.
--- NOTE | 2022-02-18 05:33 | NURSING ---
Patient is refusing to remove his bracelet from his right wrist and his watch from his left wrist. He is agreeable with leaving his glasses and upper dentures on the unit when he goes down for an incision and debridement of his right groin wound. I will pass this on to the day shift RN in report as I do not believe his surgery will be until the afternoon.
[2022-02-18 06:04] LABS: Absolute Lymphocyte Count 0.55 X10^3/uL (0.83-4.51); Absolute Neutrophil Count 5.9 X10^3/uL (2.0-7.7); Basophil# 0.03 X10^3/uL; Basophil% 0.4 % (0-1); Eosinophil# 0.26 X10^3/uL; Eosinophils% 3.4 % (0-5); Hematocrit 36.8 % (40-54); Hemoglobin 12.8 g/dL (13.0-16.5); Lymphocyte # 0.55 X10^3/ul (0.83-4.51); Lymphocyte % 7.2 % (19-41); Mean Corp Hgb Conc 34.8 g/dL (32-36); Mean Corpuscular Hgb 32.2 pg (27.0-32.0); Mean Corpuscular Volume 92.5 fL (80-94); Mean Platelet Vol. 11.3 fl (6.2-12.0); Monocyte# 0.82 X10^3/uL; Monocyte% 10.8 % (0-10); NRBC Flagged by Analyzer 0 % (0-5); Neutrophil # 5.91 X10^3/uL (2.7-7.7); Neutrophil % 77.9 % (47-70); POSITIVE COUNT YES; POSITIVE DIFFERENTIAL YES; Platelet Count 83 K/mm3 (150-450); RBC Distribution Width CV 14.9 % (11.6-14.6); RBC Distribution Width SD 50.6 fl (35.1-43.9); Red Blood Count 3.98 M/mm3 (4.6-6.2); White Blood Count 7.6 K/mm3 (4.4-11.0)
[2022-02-18 06:06] LABS: Differential Indicated SCAN CRITERIA MET
[2022-02-18 06:23] LABS: Differential Comment SCANNED
[2022-02-18 06:24] LABS: Platelet Estimate MOD DEC (ADEQ)
[2022-02-18 06:42] LABS: Anion Gap 7 (5-15); BUN 78 mg/dL (7-18); Calcium,Total 8.2 mg/dL (8.5-10.1); Chloride 112 mmol/L (98-107); EST Glomerular Filtration Rate 15 mL/min (>60); Est Glom Filt Rate - Afr Amer 18 mL/min (>60); Estimated Creatinine Clearance 15.57 ml/min; Glucose 124 mg/dL (74-106); Potassium 3.9 mmol/L (3.5-5.1); Sodium Level 142 mmol/L (136-145)
--- NOTE | 2022-02-18 07:59 | PN.HOSP_ITS ---
Subjective Subjective No new events. Objective Data Objective Data Vital Signs: Vital Signs Temp Pulse Resp BP Pulse Ox O2 Del Method O2 Flow Rate 36.8 C 87 18 112/51 L 96 Nasal Cannula 1 02/18/22 06:25 02/18/22 06:25 02/18/22 06:25 02/18/22 06:25 02/18/22 06:25 02/18/22 06:25 02/18/22 06:25 FiO2 96 02/17/22 22:00 Oxygen Flow Rate (L/min) 1 Oxygen Delivery Method Nasal Cannula Weight: 100.1 kg Body Mass Index (BMI) 32.5 Intake & Output: Intake and Output for Last 24 Hours 02/16/22 02/17/22 02/18/22 23:59 23:59 23:59 Intake Total 430 / 430 1020 / 1320 350 / 350 Output Total 450 / 450 650 / 650 Balance 430 / 430 570 / 870 -300 / -300 Lab / Micro Data Result Diagrams: 02/18/22 05:03 02/18/22 05:03 Labs: Laboratory Results - last 24 hr 02/16/22 20:00: Hep Bs Antigen Non-Reactive 02/16/22 20:00: Hep Bs Antibody Non-Reactive 02/17/22 10:00: S.aureus Protein A PCR NEGATIVE, MRSA (PCR) Negative 02/18/22 05:03: WBC 7.6, RBC 3.98 L, Hgb 12.8 L, Hct 36.8 L, MCV 92.5, MCH 32.2 H, MCHC 34.8, RDW Std Deviation 50.6 H, RDW Coeff of Lencho 14.9 H, Plt Count 83 L, MPV 11.3, Immature Gran % (Auto) 0.300, Neut % (Auto) 77.9 H, Lymph % (Auto) 7.2 L, [place] % (Auto) 10.8 H, Eos % (Auto) 3.4, Baso % (Auto) 0.4, Absolute Neuts (auto) 5.9, Absolute Lymphs (auto) 0.55 L, Nucleated RBC % 0, Differential Comment SCANNED, Platelet Estimate MOD DEC 02/18/22 05:03: Sodium 142, Potassium 3.9, Chloride 112 H, Carbon Dioxide 23.0, Anion Gap 7, BUN 78 H, Creatinine 4.10 H, Estim Creat Clear Calc 15.57, Est GFR (MDRD) Af Amer 18 L, Est GFR (MDRD) Non-Af 15 L, BUN/Creatinine Ratio 19.0, Glucose 124 H, Calcium 8.2 L Micro: Microbiology 02/17/22 10:00 Wound - Groin Gram Stain - Final Physical Exam Const alert and no apparent distress Resp normal respiratory effort and no retractions Cardio regular rate, regular rhythm, S1 normal heart sound and S2 normal heart sound GI normal to inspection, nondistended, normoactive bowel sounds and soft to palpation Skin Skin Narrative: Unroofed lesion on right anterior thigh with surrounding erythema. Psych affect normal Assessment & Plan Assessment/Plan (1) Acute kidney injury superimposed on chronic kidney disease: PLAN: Acute kidney injury on chronic kidney disease stage IV-nephrology consulted. Right AV fistula in place. Dialysis x21 on admission. Uremia and hyperkalemia resolved. IV lasix per nephrology. (2) Superficial injury of groin with infection: PLAN: Apparently started by patient using a pocket knife.? Is been present for some time.? Patient is not febrile from that.? Wound culture has been performed and results pending Start broad-spectrum antibiotics with vancomycin and piperacillin/tazobactam. DW Dr. Mccoy (3) Paroxysmal A-fib: PLAN: pixaban on hold for surgery.? Last dose of apixaban was 02/17 at 930.? Continue with carvedilol. (4) History of DVT (deep vein thrombosis): PLAN: Anticoagulation on hold for now.? H/O IVC filter placement. Patient has noted allergies to enoxaparin and heparin.? Will hold off on anticoagulation at this point in time particular in light of the surgery.? But if do need to initiate anticoagulation and would need to hold off on his oral agents, will have to further clarify what his adverse reactions were to the heparin and enoxaparin.? If he does have severe reaction may need to consider another agent such as argatroban. PLAN: Plan Chronic Conditions: * Anemia of chronic disease/iron deficiency anemia-stable, trend CBC.? * Hypertension-continue home Coreg, amlodipine. * Hyperlipidemia-not on regimen. * History of bladder cancer-status post resection and reconstructive surgery. * History of lymphoma-in remission. DVT prophylaxis- Eliquis Dispostion: TBD. Anticipate another 24-48h. Charges/Coding Visit Charges Inpatient E&M: 97787 Subs Hosp L2
--- NOTE | 2022-02-18 08:39 | PN.RENAL_ITS ---
Subjective Subjective dialysis #3 today. UF 500cc yesterday on dialysis. Objective Data Objective Data Vital Signs: Vital Signs Temp Pulse Resp BP Pulse Ox O2 Del Method O2 Flow Rate 98.2 F 89 18 112/51 L 96 Nasal Cannula 1 02/18/22 06:25 02/18/22 07:00 02/18/22 06:25 02/18/22 06:25 02/18/22 06:25 02/18/22 06:25 02/18/22 06:25 FiO2 96 02/17/22 22:00 Oxygen Flow Rate (L/min) 1 Oxygen Delivery Method Nasal Cannula Weight: 100.1 kg Body Mass Index (BMI) 32.5 Intake & Output: Intake and Output for Last 24 Hours 02/16/22 02/17/22 02/18/22 23:59 23:59 23:59 Intake Total 430 / 430 1020 / 1320 350 / 350 Output Total 450 / 450 650 / 650 Balance 430 / 430 570 / 870 -300 / -300 Lab / Micro Data Result Diagrams: 02/18/22 05:03 02/18/22 05:03 Labs: Laboratory Results - last 24 hr 02/16/22 20:00: Hep Bs Antigen Non-Reactive 02/17/22 10:00: S.aureus Protein A PCR NEGATIVE, MRSA (PCR) Negative 02/18/22 05:03: WBC 7.6, RBC 3.98 L, Hgb 12.8 L, Hct 36.8 L, MCV 92.5, MCH 32.2 H, MCHC 34.8, RDW Std Deviation 50.6 H, RDW Coeff of Lencho 14.9 H, Plt Count 83 L, MPV 11.3, Immature Gran % (Auto) 0.300, Neut % (Auto) 77.9 H, Lymph % (Auto) 7.2 L, [place] % (Auto) 10.8 H, Eos % (Auto) 3.4, Baso % (Auto) 0.4, Absolute Neuts (auto) 5.9, Absolute Lymphs (auto) 0.55 L, Nucleated RBC % 0, Differential Comment SCANNED, Platelet Estimate MOD DEC 02/18/22 05:03: Sodium 142, Potassium 3.9, Chloride 112 H, Carbon Dioxide 23.0, Anion Gap 7, BUN 78 H, Creatinine 4.10 H, Estim Creat Clear Calc 15.57, Est GFR (MDRD) Af Amer 18 L, Est GFR (MDRD) Non-Af 15 L, BUN/Creatinine Ratio 19.0, Glucose 124 H, Calcium 8.2 L Micro: Microbiology 02/17/22 10:00 Wound - Groin Gram Stain - Final Physical Exam Const alert and oriented x3 Constitutional Narrative: mild tachypnea General Appearance: well developed Eyes EOMs intact bilaterally Neck no JVD Resp clear to auscultation bilaterally Cardio regular rate and no rub GI non-tender and non-distended Auscultation: normoactive bowel sounds Palpation: soft Extremity no clubbing, cyanosis or edema Skin no rashes or lesions noted General Skin Exam: Negative for ecchymosis Neuro Sensorium / Orientation: awake and alert Psych cooperative Mood & Affect: anxious Assessment & Plan Assessment/Plan (1) ESRD (end stage renal disease): PLAN: pt at ESRD dialysis #3 today then Next dialysis Sat. Ok to dc from renal standpoint when dialysis arranged at [facility] [place] unit (2) Metabolic acidosis: PLAN: resolved (3) Hyperkalemia: PLAN: resolved (4) Essential hypertension: PLAN: stable (5) Bladder cancer: QUALIFIERS: Bladder location: unspecified site Qualified Code(s): C67.9 - Malignant neoplasm of bladder, unspecified (6) Iron deficiency anemia: PLAN: hgb stable (7) Uremia:
--- NOTE | 2022-02-18 09:15 | CASEMGMT ---
Addendum entered by Ro Martinez 02/18/22 14:53: This RN CM spoke with pt's son and he states concerns with pt going home at time of discharge as he witnessed pt with therapy yesterday. Pt/son provided list of local SNF's per request. Son does state that pt lives right next to [facility] and is aware that they do dialysis on site there. This RN CM received a call from Bart at [facility] stating that the chair time received is not accurate as Dr. He only rounds during certain times, so pt will have to have TTS chair time of 0610 or 0940. Pt/son to be updated on return from OR. CM to follow. Octavia GENTILE CM Original Note: This RN CM received a schedule letter from [facility] via fax that pt has chair time of MWF at 0650. Copy made for pt. Per therapy, pt took extended time and did not travel ambulatory very far. CM to f/u with pt/son. Octavia GENTILE CM
--- NOTE | 2022-02-18 09:55 | PCM.RX.CS ---
Consult Pharmacy has been consulted to manage selected antiobiotic: Vancomycin Type of Consult: Follow-up Suspected Infection: Skin/Soft tissue Prior Doses of Antibiotics Received/Current Regimen: Receive 2gm iv x 1 as loading dose on 02.17.22. Labs: Sodium 142 mmol/L (136-145) 02/18/22 05:03 Potassium 3.9 mmol/L (3.5-5.1) 02/18/22 05:03 Chloride 112 mmol/L (98-107) H 02/18/22 05:03 Carbon Dioxide 23.0 mmol/L (21.0-32.0) 02/18/22 05:03 Anion Gap 7 (5-15) 02/18/22 05:03 BUN 78 mg/dL (7-18) H 02/18/22 05:03 Creatinine 4.10 mg/dL (0.70-1.30) H 02/18/22 05:03 Est GFR (MDRD) Af Amer 18 mL/min (>60) L 02/18/22 05:03 Est GFR (MDRD) Non-Af 15 mL/min (>60) L 02/18/22 05:03 BUN/Creatinine Ratio 19.0 RATIO (10-20) 02/18/22 05:03 Glucose 124 mg/dL (74-106) H 02/18/22 05:03 Microbiology: Microbiology 02/17/22 10:00 Wound - Groin Gram Stain - Final Weight used for dosin kg Estimated Creatinine Clearance: ~16 ml/min Goal Trough: 15-20 mcg/mL Pharmacy Plan for Drug Dosing: Patient getting dialysis today. Have ordered 750mg iv x 1 to be given post dialysis. Pharmacy Service will continue to monitor and adjust dosing as required.
[2022-02-18] MEDS: Nystatin Powder 15gm Bottle 1 APPLIC TOPICAL ×2 (12:30→21:05)
[2022-02-18] MEDS: Furosemide 40 MG/4 ML Vial IV ×2 (12:31→17:34)
[2022-02-18] MEDS: 0.9% Saline Lock 10 ML Syringe IV ×2 (12:31→17:34)
--- NOTE | 2022-02-18 12:57 | DIALYSIS ---
Hemodialysis ended early at 1145, received 1h40m of tx, ran on a 3K bath, 3rd treatment, tolerated fairly well, UF -400mL (gain of 400mL), CritLine maintained profile B/C, urinated 150mL during dialysis, emotional, anxious during tx, family at bedside, accessed via LORI AVF using 17G needles, bruising noted at previous access sites, knot above venous portion of AVF, unable to access lower down AVF, had to re-stick placing both needles higher up AVF (but below knot), worked well, somewhat high venous pressures throughout treatment, venous needle infiltrated after patient (without moving access arm) was repositioning butt/back, able to return blood via arterial needle, stasis achieved without issue, next tx planned for Tuesday
--- NOTE | 2022-02-18 14:06 | PN.SURG_ITS ---
Subjective Subjective Patient seen and examined during AM rounds and then later in the day. He initially seems somewhat confused and reported nausea, but on repeat visit is coherent and feeling better. He states he was unable to get a shower, but did have powder applied to his right groin Objective Data Objective Data Vital Signs: Vital Signs Temp Pulse Resp BP Pulse Ox O2 Del Method O2 Flow Rate 97.7 F L 98 26 H 163/87 H 94 Room Air 1 02/18/22 12:41 02/18/22 12:41 02/18/22 12:41 02/18/22 12:41 02/18/22 10:55 02/18/22 12:41 02/18/22 06:25 FiO2 96 02/17/22 22:00 Oxygen Flow Rate (L/min) 1 Oxygen Delivery Method Room Air Weight: 220 lb 10.923 oz Body Mass Index (BMI) 32.5 Intake & Output: Intake and Output for Last 24 Hours 02/16/22 02/17/22 02/18/22 23:59 23:59 23:59 Intake Total 430 / 430 1020 / 1320 750 / 750 Output Total 450 / 450 750 / 750 Balance 430 / 430 570 / 870 0 / 0 Lab / Micro Data Result Diagrams: 02/18/22 05:03 02/18/22 05:03 Labs: Laboratory Results - last 24 hr 02/18/22 05:03: WBC 7.6, RBC 3.98 L, Hgb 12.8 L, Hct 36.8 L, MCV 92.5, MCH 32.2 H, MCHC 34.8, RDW Std Deviation 50.6 H, RDW Coeff of Lencho 14.9 H, Plt Count 83 L, MPV 11.3, Immature Gran % (Auto) 0.300, Neut % (Auto) 77.9 H, Lymph % (Auto) 7.2 L, [place] % (Auto) 10.8 H, Eos % (Auto) 3.4, Baso % (Auto) 0.4, Absolute Neuts (auto) 5.9, Absolute Lymphs (auto) 0.55 L, Nucleated RBC % 0, Differential Comment SCANNED, Platelet Estimate MOD DEC 02/18/22 05:03: Sodium 142, Potassium 3.9, Chloride 112 H, Carbon Dioxide 23.0, Anion Gap 7, BUN 78 H, Creatinine 4.10 H, Estim Creat Clear Calc 15.57, Est GFR (MDRD) Af Amer 18 L, Est GFR (MDRD) Non-Af 15 L, BUN/Creatinine Ratio 19.0, Glucose 124 H, Calcium 8.2 L Micro: Microbiology 02/17/22 10:00 Wound - Groin Gram Stain - Final Physical Exam Const oriented x3 and no apparent distress General Appearance: cooperative Nutritional Appearance: obese Resp normal respiratory effort Narrative: Patient with approximately 4 cm lesion in the right groin with exposed subcutaneous tissue that has a blackened appearance consistent with necrosis. There is ongoing purulent drainage from the site and the abdominal pad placed in this location was changed. I, again, do not easily palpate additional inguinal adenopathy. There is also a rim of deep purple erythema. Assessment & Plan Assessment/Plan (1) Superficial injury of groin with infection: PLAN: Patient is a 76-year-old male with CKD 4 admitted for initiation of hemodialysis who also exhibits a right groin infection. There is ongoing drainage from this site. We have confirmed his n.p.o. status. Plan to proceed to the operating room for incision and debridement/drainage. Charges/Coding Visit Charges Inpatient E&M: 03788 Subs Hosp L2
--- NOTE | 2022-02-18 14:52 | OP.PCM_ITS ---
Report of Operation Date of Procedure: 02/18/22 Pre-Operative Diagnosis: Infected right groin wound Post-Operative Diagnosis: Same Surgery/Procedure Performed:: Incision and drainage of right groin wound Description of Surgical Findings:: Post procedure wound dimensions 4 cm long X 0.5 cm wide X 2.5 cm deep Undermining dimensions Superior: 4.5 cm Lateral: 3.5 cm Inferior: 3.0 cm Medial: 4.0 cm Surgeon: Benjamin Mccoy bander and cellophaner helper machine: Emily Contreras Type of Anesthesia: General/Supplemental Anesthesiologist: Ed Morales Specimen's removed: Wound cultures Drains: NA Estimated Blood Loss (mL): 15 Description of Procedure: After appropriate identification in the preoperative holding area the patient was brought to the operating room where he was positioned supine on the operating table. Once there, he underwent initiation of sedation for a local MAC by anesthesia. Antibiotics were being given continuously from the floor. Patient's right groin was then prepped (including clipping of all pubic hair in the vicinity of his wound) and draped in the usual sterile fashion. A formal timeout followed to confirm both patient and procedure. I began the procedure with a local block using 10 mL 0.25% bupivacaine plain. Then sharply I removed some necrotic, denuded skin (less than 2 cm?) along the inferior aspect of the wound. Further palpating the wound there seemed to be some deeper induration/fluctuance so I used a hemostat to bluntly probe the depth of the wound and encountered a wound pocket that extended for an additional depth as well as significant undermining in all directions. These undermining dimensions (including the dimensions of the index wound) are given in the description above. This significant undermining seemed suggestive of possible anaerobic infection of the space, but did not appear to penetrate to the depth of the fascia. Wound cultures were obtained within this wound cavity. Then the wound was copiously irrigated with sterile saline. The wound was inspected for hemostasis and once this was found to be intact, I proceeded with packing the wound using half-inch iodoform packing strip. The entire bottle worth of packing strip was required. The wound was then dressed with 4 x 4 gauzes and abdominal pad taped to the top of the wound. Patient's sedation was lightened and he was transferred to PACU for ongoing recovery. Complications None Procedures Integumentary 10xxx: [id number] Drainage of skin abscess
[2022-02-18] MEDS: Carvedilol 6.25 MG Tablet PO ×2 (16:08→21:05)
[2022-02-18] MEDS: Folic Acid/Vitamin B Comp W-C 1 Capsule 1 CAP PO (16:08)
[2022-02-18] MEDS: Bupivacaine 0.25% 30 ML Vial (16:13)
--- NOTE | 2022-02-18 20:25 | PCM.PN.BLA ---
Progress Note Patient presented with nausea and inability to urinate. Bladder mass was found. Elevated blood pressure internal medicine consulted.
[2022-02-18] MEDS: MELATONIN 10 MG TABLET 5 MG PO (21:05)
[2022-02-19] VITALS (10 sets, daily range): BP systolic 112–139; BP diastolic 51–78; PULSE 88–107; RESP 16–18; TEMP 36.5–36.6; O2SAT 93–94
--- NOTE | 2022-02-19 05:46 | NURSING ---
Upon entering room, pt had deaccessed port and taken off his tele monitor. Port reaccessed and blood successfully drawn from line.
[2022-02-19 05:49] LABS: Absolute Lymphocyte Count 0.48 X10^3/uL (0.83-4.51); Basophil# 0.03 X10^3/uL; Basophil% 0.3 % (0-1); Eosinophil# 0.33 X10^3/uL; Eosinophils% 3.3 % (0-5); Hematocrit 38.9 % (40-54); Hemoglobin 12.8 g/dL (13.0-16.5); Lymphocyte # 0.48 X10^3/ul (0.83-4.51); Lymphocyte % 4.9 % (19-41); Mean Corp Hgb Conc 32.9 g/dL (32-36); Mean Corpuscular Hgb 30.9 pg (27.0-32.0); Mean Platelet Vol. 10.5 fl (6.2-12.0); Monocyte% 10.1 % (0-10); NRBC Flagged by Analyzer 0 % (0-5); Neutrophil % 80.9 % (47-70); POSITIVE COUNT YES; POSITIVE DIFFERENTIAL YES; Platelet Count 66 K/mm3 (150-450); RBC Distribution Width CV 14.7 % (11.6-14.6); RBC Distribution Width SD 50.8 fl (35.1-43.9); Red Blood Count 4.14 M/mm3 (4.6-6.2); White Blood Count 9.9 K/mm3 (4.4-11.0)
[2022-02-19 06:06] LABS: Anion Gap 11 (5-15); BUN 69 mg/dL (7-18); BUN/Creat Ratio 16.1 RATIO (10-20); Calcium,Total 7.6 mg/dL (8.5-10.1); Chloride 109 mmol/L (98-107); Creatinine, Serum 4.28 mg/dL (0.70-1.30); Differential Indicated SCAN CRITERIA MET; EST Glomerular Filtration Rate 14 mL/min (>60); Est Glom Filt Rate - Afr Amer 18 mL/min (>60); Estimated Creatinine Clearance 14.91 ml/min; Glucose 135 mg/dL (74-106); Potassium 3.4 mmol/L (3.5-5.1); Sodium Level 142 mmol/L (136-145)
[2022-02-19 06:09] LABS: Differential Comment SCANNED
[2022-02-19 06:10] LABS: Platelet Estimate MOD DEC (ADEQ)
--- NOTE | 2022-02-19 07:14 | PN.HOSP_ITS ---
Subjective Subjective Feels well. Objective Data Objective Data Vital Signs: Vital Signs Temp Pulse Resp BP Pulse Ox O2 Del Method O2 Flow Rate 36.6 C 90 18 139/78 H 94 Nasal Cannula 2 02/19/22 03:00 02/19/22 03:00 02/19/22 03:00 02/19/22 03:00 02/19/22 03:00 02/19/22 03:00 02/19/22 03:00 FiO2 96 02/17/22 22:00 Oxygen Flow Rate (L/min) 2 Oxygen Delivery Method Nasal Cannula Weight: 100.1 kg Body Mass Index (BMI) 32.5 Intake & Output: Intake and Output for Last 24 Hours 02/17/22 02/18/22 02/19/22 23:59 23:59 23:59 Intake Total 1020 / 1320 1185 / 1245 110 / 110 Output Total 450 / 450 1000 / 1175 175 / 175 Balance 570 / 870 185 / 70 -65 / -65 Lab / Micro Data Result Diagrams: 02/19/22 05:40 02/19/22 05:40 Labs: Laboratory Results - last 24 hr 02/19/22 05:40: WBC 9.9, RBC 4.14 L, Hgb 12.8 L, Hct 38.9 L, MCV 94.0, MCH 30.9, MCHC 32.9 D, RDW Std Deviation 50.8 H, RDW Coeff of Lencho 14.7 H, Plt Count 66 L, MPV 10.5, Immature Gran % (Auto) 0.500, Neut % (Auto) 80.9 H, Lymph % (Auto) 4.9 L, [place] % (Auto) 10.1 H, Eos % (Auto) 3.3, Baso % (Auto) 0.3, Absolute Neuts (auto) 8.0 H, Absolute Lymphs (auto) 0.48 L, Nucleated RBC % 0, Differential Comment SCANNED, Platelet Estimate MOD 02/19/22 05:40: Sodium 142, Potassium 3.4 L, Chloride 109 H, Carbon Dioxide 22.0, Anion Gap 11, BUN 69 H, Creatinine 4.28 H, Estim Creat Clear Calc 14.91, Est GFR (MDRD) Af Amer 18 L, Est GFR (MDRD) Non-Af 14 L, BUN/Creatinine Ratio 16.1, Glucose 135 H, Calcium 7.6 L Micro: Microbiology 02/17/22 10:00 Wound - Groin Gram Stain - Final Physical Exam Const alert and no apparent distress Resp normal respiratory effort, no retractions, no use of accessory muscles and clear to auscultation bilaterally Cardio regular rate, regular rhythm, S1 normal heart sound and S2 normal heart sound GI normal to inspection, nondistended, normoactive bowel sounds and soft to palpation Extremity normal to inspection Skin Skin Narrative: Right groin incision clean and intact. Packing in place, did not remove. Psych affect normal Assessment & Plan Assessment/Plan (1) Acute kidney injury superimposed on chronic kidney disease: PLAN: Acute kidney injury on chronic kidney disease stage IV-nephrology consulted.? Right AV fistula in place.? Dialysis x21 on admission.? Uremia and hyperkalemia resolved. IV lasix per nephrology. (2) Superficial injury of groin with infection: PLAN: Apparently started by patient using a pocket knife.? Is been present for some time.? Patient is not febrile from that.? Wound culture has been performed and results pending Start broad-spectrum antibiotics with vancomycin and piperacillin/tazobactam. Taken to the operating room on February 18 or patient underwent incision and drainage of the right groin wound. The wound dimensions measured 4 x 0.5 x 2.5 cm. (3) Paroxysmal A-fib: PLAN: Apixaban on hold for surgery.? Last dose of apixaban was 02/17 at 930.? Continue with carvedilol. (4) History of DVT (deep vein thrombosis): PLAN: Anticoagulation on hold for now.? H/O IVC filter placement. Patient has noted allergies to enoxaparin and heparin.? Will hold off on anticoagulation at this point in time particular in light of the surgery.? But if do need to initiate anticoagulation and would need to hold off on his oral agents, will have to further clarify what his adverse reactions were to the heparin and enoxaparin.? If he does have severe reaction may need to consider another agent such as argatroban. PLAN: Plan Chronic Conditions: * Anemia of chronic disease/iron deficiency anemia-stable, trend CBC.? * Hypertension-continue home Coreg, amlodipine. * Hyperlipidemia-not on regimen. * History of bladder cancer-status post resection and reconstructive surgery. * History of lymphoma-in remission. DVT prophylaxis- Eliquis Dispostion: TBD. [facility]. We will wait on final culture results. Hopefully 1 more day and can transition over to oral. Charges/Coding Visit Charges Inpatient E&M: 70608 Subs Hosp L2
--- NOTE | 2022-02-19 09:03 | CASEMGMT ---
Addendum entered by Ro Martinez 02/19/22 14:28: This RN CM spoke with son and all questions answered. Per Dr. Dinero, pt will likely d/c tomorrow and Bart at [facility] aware. Bart is working with [facility] regarding HD set up at [facility] or transport. Octavia GENTILE CM Original Note: Pt agreeable to SNF per therapy recommendations and pt/son were provided list yesterday. Pt/son would like [facility] and lenny Loredo/jose roberto planning management it specialist, aware and referral sent via careport. Call to Bart at [facility] to see if pt will be able to have dialysis on site right away or if transport will need set up for TTS at 0610. Bart will call this RN MIREYA back with clarification and [facility] notified via careport regarding the same. CM to follow. Octavia GENTILE CM
[2022-02-19] MEDS: Polyethylene Glycol 3350 17 GM PACKET PO (09:06)
[2022-02-19] MEDS: Folic Acid/Vitamin B Comp W-C 1 Capsule 1 CAP PO (09:06)
[2022-02-19] MEDS: Loratadine 10 MG Tablet PO (09:06)
[2022-02-19] MEDS: Nystatin Powder 15gm Bottle 1 APPLIC TOPICAL ×2 (09:07→21:55)
[2022-02-19] MEDS: Carvedilol 6.25 MG Tablet PO ×2 (09:07→21:55)
[2022-02-19] MEDS: Furosemide 40 MG Tablet PO ×2 (09:07→17:27)
--- NOTE | 2022-02-19 12:47 | CASEMGMT ---
Discharge Book Jacket Cover Machine Operator Ebony from [facility] reached out. Patient has been accepted at [facility]. Abbie notified. Plan: [facility] Gertrude Brush Discharge Book Jacket Cover Machine Operator
--- NOTE | 2022-02-19 12:54 | PCM.PN.SRG ---
Subjective Subjective Patient was seen and examined during late morning rounds. He denies any discomfort from his right groin I&D site yesterday. He states that he is feeling a little bit better today. Objective Data Objective Data Vital Signs: Vital Signs Temp Pulse Resp BP Pulse Ox O2 Del Method O2 Flow Rate 97.7 F L 107 H 17 112/55 L 93 Room Air 2 02/19/22 09:00 02/19/22 11:37 02/19/22 09:00 02/19/22 09:00 02/19/22 09:16 02/19/22 09:16 02/19/22 03:00 FiO2 96 02/17/22 22:00 Oxygen Flow Rate (L/min) 2 Oxygen Delivery Method Room Air Weight: 220 lb 10.923 oz Body Mass Index (BMI) 32.5 Intake & Output: Intake and Output for Last 24 Hours 02/17/22 02/18/22 02/19/22 23:59 23:59 23:59 Intake Total 1020 / 1320 1185 / 1245 127.29 / 127.29 Output Total 450 / 450 1000 / 1175 175 / 175 Balance 570 / 870 185 / 70 -47.71 / -47.71 Lab / Micro Data Result Diagrams: 02/19/22 05:40 02/19/22 05:40 Labs: Laboratory Results - last 24 hr 02/19/22 05:40: WBC 9.9, RBC 4.14 L, Hgb 12.8 L, Hct 38.9 L, MCV 94.0, MCH 30.9, MCHC 32.9 D, RDW Std Deviation 50.8 H, RDW Coeff of Lencho 14.7 H, Plt Count 66 L, MPV 10.5, Immature Gran % (Auto) 0.500, Neut % (Auto) 80.9 H, Lymph % (Auto) 4.9 L, [place] % (Auto) 10.1 H, Eos % (Auto) 3.3, Baso % (Auto) 0.3, Absolute Neuts (auto) 8.0 H, Absolute Lymphs (auto) 0.48 L, Nucleated RBC % 0, Differential Comment SCANNED, Platelet Estimate MOD DEC 02/19/22 05:40: Sodium 142, Potassium 3.4 L, Chloride 109 H, Carbon Dioxide 22.0, Anion Gap 11, BUN 69 H, Creatinine 4.28 H, Estim Creat Clear Calc 14.91, Est GFR (MDRD) Af Amer 18 L, Est GFR (MDRD) Non-Af 14 L, BUN/Creatinine Ratio 16.1, Glucose 135 H, Calcium 7.6 L Micro: Microbiology 02/17/22 10:00 Wound - Groin Gram Stain - Final 02/17/22 10:00 Wound - Groin Wound Culture - Preliminary Mixed Gram Positive Organisms 02/18/22 14:50 Discharge - Aerobic & Anaerobic Swabs Gram Stain - Final Physical Exam Const no apparent distress Resp normal respiratory effort Narrative: Patient's right groin is examined and there is decreased erythema around his transverse incision site in his right groin. There is a small amount of serosanguineous drainage to the abdominal pad and plain gauze overlying the wound. The wound is redressed after removing some bloody packing strip. There is no evidence of ongoing bleeding or drainage of purulent fluid. The wound base appeared viable. Assessment & Plan Assessment/Plan (1) Superficial injury of groin with infection: PLAN: Patient is a 76-year-old male with CKD 4 admitted for initiation of hemodialysis who also exhibits a right groin infection. Patient is postoperative day 1 from operative I&D of this site. He denies any discomfort at rest. Wound packing was changed at bedside and was overall well-tolerated. There is no evidence of undrained fluid collections and the wound appears viable. ? Patient okay to begin bathing as soon as it is medically safe for him to do so. Recommend removing packing and allowing shower water to enter a wound to irrigate it then repacking (after patting this area dry and expelling water from the wound cavity). ? Continue daily packing of the wound just to stent open the opening to the deeper cavity with plain packing strip ? Continue empiric IV antibiotic coverage and narrow according to wound cultures and operative cultures Charges/Coding Visit Charges Inpatient E&M: 88434 Subs Hosp L2
--- NOTE | 2022-02-19 15:45 | CASEMGMT ---
Discharge Bill Recapitulation Clerk Gertrude talavera glass ribbon machine operator assistant went to patients bedside. Patient is aware that [facility] accepted him and he will be having dialysis at facility on Tuesday. Son at beside is aware as well. Plan: [facility] Gertrude Brush Discharge Bill Recapitulation Clerk
[2022-02-19] MEDS: MELATONIN 10 MG TABLET 5 MG PO (21:55)
--- NOTE | 2022-02-19 22:10 | RAD_ITS ---
STUDY: X-RAY CHEST REASON FOR EXAM: Male, 76 years old. sob TECHNIQUE: Single AP portable view of the chest. COMPARISON: 02/16/2022 FINDINGS: Stable right chest wall Mediport The lungs are clear and expanded. There is no demonstrated pleural abnormality. There is borderline cardiomegaly. Normal mediastinum and donaldo. Normal visualized pulmonary arteries. Normal visualized aortic arch and descending thoracic aorta. Normal visualized thoracic spine. Normal visualized ribs, clavicles, and shoulders. There is no demonstrated abnormality of the visualized soft tissue structures of the upper abdomen. RAD/Chest 1 View (Portable) IMPRESSION: No acute cardiopulmonary disease Electronically Signed: Humberto Healy DO at 23:45 EDT ,
--- NOTE | 2022-02-19 22:22 | PCM.PN.BLA ---
Progress Note Nurse reported patient is wheezing. O2 sat 94% on room air. Per nurse patient is restless and has not slept for a couple of days. Patient already received melatonin. Seroquel 25 mg x 1 ordered. Chest x-ray ordered.
[2022-02-19] MEDS: QUEtiapine 25 MG Tablet PO (22:26)
[2022-02-20] VITALS (10 sets, daily range): BP systolic 116–136; BP diastolic 60–69; PULSE 85–102; RESP 16–18; TEMP 36.1–36.6; O2SAT 91–98
[2022-02-20 06:34] LABS: Vancomycin, Random Level 20.5 ug/mL (0.0-15.0)
[2022-02-20 06:36] LABS: Albumin, Serum 2.5 g/dL (3.2-5.0); BUN 80 mg/dL (7-18); BUN/Creat Ratio 15.4 RATIO (10-20); Calcium,Total 7.4 mg/dL (8.5-10.1); Chloride 110 mmol/L (98-107); EST Glomerular Filtration Rate 12 mL/min (>60); Est Glom Filt Rate - Afr Amer 14 mL/min (>60); Estimated Creatinine Clearance 12.27 ml/min; Glucose 126 mg/dL (74-106); Phosphorus 4.1 mg/dL (2.5-4.9); Potassium 3.2 mmol/L (3.5-5.1); Sodium Level 143 mmol/L (136-145)
--- NOTE | 2022-02-20 07:24 | PCM.RX.CS ---
Consult Pharmacy has been consulted to manage selected antiobiotic: Vancomycin Type of Consult: Follow-up Prior Doses of Antibiotics Received/Current Regimen: Medications Discontinued Medications Vancomycin HCl 2,000 mg/ (Sodium Chloride) 540 mls @ 250 mls/hr IV X1 ONE Stop: 02/17/22 22:09 Last Admin: 02/17/22 20:07 Dose: Infused Vancomycin HCl 750 mg/ Sodium (Chloride) 265 mls @ 250 mls/hr IV X1 ONE Stop: 02/18/22 17:03 Last Admin: 02/18/22 17:37 Dose: Infused Labs: Sodium 143 mmol/L (136-145) 02/20/22 05:55 Potassium 3.2 mmol/L (3.5-5.1) L 02/20/22 05:55 Chloride 110 mmol/L (98-107) H 02/20/22 05:55 Carbon Dioxide 22.0 mmol/L (21.0-32.0) 02/20/22 05:55 Anion Gap Cancelled 02/20/22 05:55 BUN 80 mg/dL (7-18) H 02/20/22 05:55 Creatinine 5.20 mg/dL (0.70-1.30) H 02/20/22 05:55 Est GFR (MDRD) Af Amer 14 mL/min (>60) L 02/20/22 05:55 Est GFR (MDRD) Non-Af 12 mL/min (>60) L 02/20/22 05:55 BUN/Creatinine Ratio 15.4 RATIO (10-20) 02/20/22 05:55 Glucose 126 mg/dL (74-106) H 02/20/22 05:55 Random Vancomycin 20.5 ug/mL (0.0-15.0) H 02/20/22 05:55 Microbiology: Microbiology 02/18/22 14:50 Discharge - Aerobic & Anaerobic Swabs Gram Stain - Final 02/18/22 14:50 Discharge - Aerobic & Anaerobic Swabs Wound Culture - Preliminary No growth-Final to follow 02/17/22 10:00 Wound - Groin Gram Stain - Final 02/17/22 10:00 Wound - Groin Wound Culture - Preliminary Mixed Gram Positive Organisms Goal Trough: 15-20 mcg/mL Pharmacy Plan for Drug Dosing: Random level above goal range. Dialysis planned for today. No dose today, will order random when next dialysis scheduled after today. Pharmacy Service will continue to monitor and adjust dosing as required.
--- NOTE | 2022-02-20 08:18 | PN.HOSP_ITS ---
Subjective Subjective Breathing well. Groin feeling better. Objective Data Objective Data Vital Signs: Vital Signs Temp Pulse Resp BP Pulse Ox O2 Del Method O2 Flow Rate 36.3 C L 88 16 123/69 H 91 Room Air 2 02/20/22 03:00 02/20/22 07:00 02/20/22 03:00 02/20/22 03:00 02/20/22 07:38 02/20/22 07:38 02/19/22 23:54 FiO2 96 02/17/22 22:00 Oxygen Flow Rate (L/min) 2 Oxygen Delivery Method Room Air Weight: 101.3 kg Body Mass Index (BMI) 32.5 Intake & Output: Intake and Output for Last 24 Hours 02/18/22 02/19/22 02/20/22 23:59 23:59 23:59 Intake Total 1185 / 1245 810.00 / 910.00 650 / 650 Output Total 1000 / 1175 175 / 175 175 / 175 Balance 185 / 70 635.00 / 735.00 475 / 475 Lab / Micro Data Result Diagrams: 02/19/22 05:40 02/20/22 05:55 Labs: Laboratory Results - last 24 hr 02/20/22 05:55: Random Vancomycin 20.5 H 02/20/22 05:55: Sodium 143, Potassium 3.2 L, Chloride 110 H, Carbon Dioxide 22.0, Anion Gap Cancelled, BUN 80 H, Creatinine 5.20 H, Estim Creat Clear Calc 12.27, Est GFR (MDRD) Af Amer 14 L, Est GFR (MDRD) Non-Af 12 L, BUN/Creatinine Ratio 15.4, Glucose 126 H, Calcium 7.4 L, Phosphorus 4.1, Albumin 2.5 L Micro: Microbiology 02/18/22 14:50 Discharge - Aerobic & Anaerobic Swabs Gram Stain - Final 02/18/22 14:50 Discharge - Aerobic & Anaerobic Swabs Wound Culture - Preliminary No growth-Final to follow 02/17/22 10:00 Wound - Groin Gram Stain - Final 02/17/22 10:00 Wound - Groin Wound Culture - Preliminary Mixed Gram Positive Organisms Radiography Diagnostic Testing: Radiology Impression Chest X-Ray 02/19/22 22:10 IMPRESSION: No acute cardiopulmonary disease Electronically Signed: Humberto Healy DO at 23:45 EDT , Physical Exam Const alert and no apparent distress Resp normal respiratory effort, no retractions, no use of accessory muscles and clear to auscultation bilaterally Cardio regular rate, regular rhythm, S1 normal heart sound and S2 normal heart sound Extremity Extremity Narrative: ecchymosis right UE adjacent to his fistula. RUE fistula with palpable bruit. Assessment & Plan Assessment/Plan (1) Acute kidney injury superimposed on chronic kidney disease: PLAN: Acute kidney injury on chronic kidney disease stage IV-nephrology consulted.? Right AV fistula in place.? Continue HD Uremia and hyperkalemia resolved. IV lasix per nephrology. (2) Superficial injury of groin with infection: PLAN: Apparently started by patient using a pocket knife.? Is been present for some time.? Patient is not febrile from that.? Wound culture has been performed and results pending Start broad-spectrum antibiotics with vancomycin and piperacillin/tazobactam. Taken to the operating room on February 18 or patient underwent incision and drainage of the right groin wound. The wound dimensions measured 4 x 0.5 x 2.5 cm. Wound care per gen surgery: * Patient okay to begin bathing as soon as it is medically safe for him to do so.? Recommend removing packing and allowing shower water to enter a wound to irrigate it then repacking (after patting this area dry and expelling water from the wound cavity). * Continue daily packing of the wound just to stent open the opening to the deeper cavity with plain packing strip Cx growing out mixed PRODUCTION PACKAGER and GPR Change antibiotics to amox/CA for 6 more days (3) Paroxysmal A-fib: PLAN: Stable Continue with carvedilol and apixaban. (4) History of DVT (deep vein thrombosis): PLAN: H/O IVC filter placement. Patient has noted allergies to enoxaparin and heparin.? Will hold off on anticoagulation at this point in time particular in light of the surgery.? But if do need to initiate anticoagulation and would need to hold off on his oral agents, will have to further clarify what his adverse reactions were to the heparin and enoxaparin.? If he does have severe reaction may need to consider another agent such as argatroban. PLAN: Plan Chronic Conditions: * Anemia of chronic disease/iron deficiency anemia-stable, trend CBC.? * Hypertension-continue home Coreg, amlodipine. * Hyperlipidemia-not on regimen. * History of bladder cancer-status post resection and reconstructive surgery. * History of lymphoma-in remission. DVT prophylaxis- Eliquis Dispostion: TBD. To residential facility. We will wait on final culture results. Hopefully 1 more day and can transition over to oral.
[2022-02-20] MEDS: Folic Acid/Vitamin B Comp W-C 1 Capsule 1 CAP PO (09:09)
[2022-02-20] MEDS: Polyethylene Glycol 3350 17 GM PACKET PO (09:10)
[2022-02-20] MEDS: Carvedilol 6.25 MG Tablet PO ×2 (09:10→20:44)
[2022-02-20] MEDS: Nystatin Powder 15gm Bottle 1 APPLIC TOPICAL ×2 (09:10→20:45)
[2022-02-20] MEDS: Furosemide 40 MG Tablet PO (09:10)
--- NOTE | 2022-02-20 09:30 | PN.SURG_ITS ---
Subjective Subjective Patient seen and examined during AM rounds. He reports that he is feeling better today. He denies any significant discomfort from his right groin I&D site. Objective Data Objective Data Vital Signs: Vital Signs Temp Pulse Resp BP Pulse Ox O2 Del Method O2 Flow Rate 97.5 F L 88 18 122/69 H 94 Room Air 2 02/20/22 09:00 02/20/22 09:00 02/20/22 09:00 02/20/22 09:00 02/20/22 09:00 02/20/22 09:00 02/19/22 23:54 FiO2 96 02/17/22 22:00 Oxygen Flow Rate (L/min) 2 Oxygen Delivery Method Room Air Weight: 223 lb 5.252 oz Body Mass Index (BMI) 32.5 Intake & Output: Intake and Output for Last 24 Hours 02/18/22 02/19/22 02/20/22 23:59 23:59 23:59 Intake Total 1185 / 1245 810.00 / 910.00 650 / 650 Output Total 1000 / 1175 175 / 175 175 / 175 Balance 185 / 70 635.00 / 735.00 475 / 475 Lab / Micro Data Result Diagrams: 02/19/22 05:40 02/20/22 05:55 Labs: Laboratory Results - last 24 hr 02/20/22 05:55: Random Vancomycin 20.5 H 02/20/22 05:55: Sodium 143, Potassium 3.2 L, Chloride 110 H, Carbon Dioxide 22.0, Anion Gap Cancelled, BUN 80 H, Creatinine 5.20 H, Estim Creat Clear Calc 12.27, Est GFR (MDRD) Af Amer 14 L, Est GFR (MDRD) Non-Af 12 L, BUN/Creatinine Ratio 15.4, Glucose 126 H, Calcium 7.4 L, Phosphorus 4.1, Albumin 2.5 L Micro: Microbiology 02/17/22 10:00 Wound - Groin Gram Stain - Final 02/17/22 10:00 Wound - Groin Wound Culture - Preliminary Coag Negative Staph Gram positive bro 02/18/22 14:50 Discharge - Aerobic & Anaerobic Swabs Gram Stain - Final 02/18/22 14:50 Discharge - Aerobic & Anaerobic Swabs Wound Culture - Preliminary No growth-Final to follow Radiography Diagnostic Testing: Radiology Impression Chest X-Ray 09/02/22 22:10 IMPRESSION: No acute cardiopulmonary disease Electronically Signed: Humberto Healy DO at 23:45 EDT , Physical Exam Const no apparent distress Resp normal respiratory effort Narrative: Patient's right groin is examined and there is further decreased erythema around his transverse incision site in his right groin. There is a small amount of serosanguineous drainage to the abdominal pad and plain gauze overlying the wound. The wound is again redressed after removing some bloody packing strip. There is no evidence of ongoing bleeding or drainage of purulent fluid. The wound base remains viable. Assessment & Plan Assessment/Plan (1) Superficial injury of groin with infection: PLAN: Patient is a 76-year-old male with CKD 4 admitted for initiation of hemodialysis who also exhibits a right groin infection. Patient is postoperative day 2 from operative I&D of this site. He denies any discomfort at rest. Wound packing was changed at bedside and was, again, overall well- tolerated. Wound shows further clinical improvements. Cultures to date show some mixed gram-positive organisms, but operative cultures are negative. According to hospitalist service, patient has acceptance at a care home facility and will likely transfer today on empiric oral antibiotic coverage. ? Patient okay to begin bathing as soon as it is medically safe for him to do so. Recommend removing packing and allowing shower water to enter a wound to irrigate it then repacking (after patting this area dry and expelling water from the wound cavity). ? Continue daily packing of the wound just to stent open the opening to the deep er cavity with plain packing strip ? Appears clinically cleared to transition to empiric oral antibiotics and transfer to care home facility ? Would be happy to see patient in follow-up for wound check in 1 to 2 weeks from hospital discharge Charges/Coding Visit Charges Inpatient E&M: 30056 Subs Hosp L2
[2022-02-20] MEDS: APIXABAN 2.5 MG TABLET PO ×2 (10:15→20:44)
--- NOTE | 2022-02-20 10:32 | TREXTCAR_ITS ---
Diet Diet Order/Speech Therapy: 02/19/22 12:55 Diet: Renal - General Food consistency:: Regular Liquid Consistency:: Regular/Thin Type of Dietary Supplement:: Nepro Is pt able to select menu?: Yes Diet Comments: 240ml nepro 1 time per day with lunch Routine Orders/Code Status Routine Lab Work: CBC and BMP Code Status: Full Code Wound(s) Right groin: Wound Type: Surgical Incision right upper thigh: Wound Type: Abscess Dressing Change: Dry Sterile Dressing Therapies Weight Bearing: Full weight bearing Physical Therapy: Eval and Treat Occupational Therapy: Eval and Treat Problem/Diagnosis (1) Acute kidney injury superimposed on chronic kidney disease: Status: Chronic Code(s): N17.9 - Acute kidney failure, unspecified; N18.9 - Chronic kidney disease, unspecified Plan: Acute kidney injury on chronic kidney disease stage IV-nephrology consulted.? Right AV fistula in place.? Continue HD Uremia and hyperkalemia resolved. IV lasix per nephrology. (2) Superficial injury of groin with infection: Status: Acute Code(s): S30.92XA - Unspecified superficial injury of abdominal wall, initial encounter; L08.9 - Local infection of the skin and subcutaneous tissue, unspecified Plan: Apparently started by patient using a pocket knife.? Is been present for some time.? Patient is not febrile from that.? Wound culture has been performed and results pending Start broad-spectrum antibiotics with vancomycin and piperacillin/tazobactam. Taken to the operating room on February 18 or patient underwent incision and drainage of the right groin wound. The wound dimensions measured 4 x 0.5 x 2.5 cm. Wound care per gen surgery: * Patient okay to begin bathing as soon as it is medically safe for him to do so.? Recommend removing packing and allowing shower water to enter a wound to irrigate it then repacking (after patting this area dry and expelling water from the wound cavity). * Continue daily packing of the wound just to stent open the opening to the deeper cavity with plain packing strip Cx growing out mixed TWILL CUTTER and GPR Change antibiotics to amox/CA for 6 more days (3) Paroxysmal A-fib: Status: Acute Code(s): I48.0 - Paroxysmal atrial fibrillation Plan: Stable Continue with carvedilol and apixaban. (4) History of DVT (deep vein thrombosis): Status: Acute Code(s): Z86.718 - Personal history of other venous thrombosis and embolism Plan: H/O IVC filter placement. Patient has noted allergies to enoxaparin and heparin.? Will hold off on anticoagulation at this point in time particular in light of the surgery.? But if do need to initiate anticoagulation and would need to hold off on his oral agents, will have to further clarify what his adverse reactions were to the heparin and enoxaparin.? If he does have severe reaction may need to consider another agent such as argatroban. Plan Chronic Conditions: * Anemia of chronic disease/iron deficiency anemia-stable, trend CBC.? * Hypertension-continue home Coreg, amlodipine. * Hyperlipidemia-not on regimen. * History of bladder cancer-status post resection and reconstructive surgery. * History of lymphoma-in remission. DVT prophylaxis- Eliquis Dispostion: TBD. To long term facility. We will wait on final culture r esults. Hopefully 1 more day and can transition over to oral. Allergies/Procedures Done in Hospital Allergies enoxaparin [From Lovenox] Allergy (Verified 02/16/22 12:19) Other HIT heparin Allergy (Verified 02/16/22 12:19) Other HIT aspirin Adverse Reaction (Verified 02/16/22 12:19) Other BLEEDING Iodinated Contrast Media [CONTRASTS] Adverse Reaction (Verified 02/16/22 12:19) OTHER CAN'T BECAUSE OF KIDNEYS Procedures: - (Incision and drainage of right groin wound) Type of Care/Length of Stay Estimated LOS: Convalescent Care Less Than 30 days Type of Care Needed: Skilled Rehab Potential: Fair Prognosis: Fair Additional Orders/Day of Discharge Day of Discharge: 02/20/22 Dietary and Speech Recommendations Dietitian Recommendations/Changes: Renal-general diet; no need to restrict protein with dialysis. 8oz Nepro at lunch per pt request. Will monitor PO intake, wt, labs and adjust diet/ONS as indicated. Diet education as needed; plans for SNF at d/c. Follow Up Care [facility]: [facility] Sat Discharge Plan Admission Admit Date/Time: 02/16/22 15:07 Primary Reason for Your Visit: acute on chronic kidney disease Attending Provider: Ed Dinero Primary Care Provider: Martin Nunez Consulting Providers: Sonia He ; River Mejia ; Benjamin Mccoy Instructions Additional Instructions / Restrictions: Patient okay to begin bathing as soon as it is medically safe for him to do so.? Recommend removing packing and allowing shower water to enter a wound to irrigate it then repacking (after patting this area dry and expelling water from the wound cavity). Continue daily packing of the wound just to stent open the opening to the deeper cavity with plain packing strip Discharge Orders/Prescriptions Prescriptions: New acetaminophen [Tylenol] 325 mg Tablet 650 mg PO Q6H PRN PRN (Reason: Pain Score 1-10/Temp > 100.7 F) Qty: 0 0RF Eliquis 2.5 mg Tablet 2.5 mg PO BID Qty: 0 0RF nystatin [Nyamyc] 100,000 unit/gram Powder 1 applic topical BID Qty: 0 0RF Protocol: *Topical Application Instructions APPLICATION INSTRUCTIONS: Apply to area under pannus. Avoid right groin wound melatonin 10 mg Tablet, Sublingual 5 mg PO QHS Qty: 0 0RF amoxicillin-pot clavulanate 875-125 mg tablet 1 tab PO BID Qty: 12 0RF Continued amlodipine 5 mg tablet 5 mg PO DAILY carvedilol 6.25 MG tablet 6.25 mg PO BID vitamin B complex 1 EACH tablet 1 tab PO DAILY polyethylene glycol 3350 119 GM powder 17 gm PO DAILY cetirizine 10 MG capsule 10 mg PO DAILY Qty: 30 0RF Changed furosemide 40 MG tablet 40 mg PO BIDCM Qty: 30 0RF ferrous sulfate 325 mg (65 mg iron) tablet 325 mg PO QODAY Qty: 30 0RF potassium chloride 10 MEQ tablet,ER particles/crystals 20 meq PO DAILY Qty: 30 0RF Referrals / Follow Up: Martin Nunez DO [Primary Care Provider] - Within 2 Weeks Disposition Disposition (needs filled in before D/C Order can be placed): Group Home Facility
--- NOTE | 2022-02-20 10:43 | DS.PCM_ITS ---
Providers Date of Admission: 02/16/22 Primary Care Physician: Dr. 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 Routine Comment: Reason for Consult:: R groin wound 02/17/22 10:17 Consult: General Surgery Routine Consulting Provider: Benjamin Mccoy Reason for Consult: Right groin wound EMERGENT Consult: No MD Notified: Yes Date Notified: 02/17/22 Time Notified: 10:17 Method of Notification: Text Reason For Visit: RENAL FAILURE / UREMIA Diagnosis Discharge Diagnosis (1) Acute kidney injury superimposed on chronic kidney disease: Status: Chronic Code(s): N17.9 - Acute kidney failure, unspecified; N18.9 - Chronic kidney disease, unspecified Plan: Acute kidney injury on chronic kidney disease stage IV-nephrology consulted.? Right AV fistula in place.? Continue HD Uremia and hyperkalemia resolved. IV lasix per nephrology. (2) Superficial injury of groin with infection: Status: Acute Code(s): S30.92XA - Unspecified superficial injury of abdominal wall, initial encounter; L08.9 - Local infection of the skin and subcutaneous tissue, unspecified Plan: Apparently started by patient using a pocket knife.? Is been present for some time.? Patient is not febrile from that.? Wound culture has been performed and results pending Start broad-spectrum antibiotics with vancomycin and piperacillin/tazobactam. Taken to the operating room on February 18 or patient underwent incision and drainage of the right groin wound. The wound dimensions measured 4 x 0.5 x 2.5 cm. Wound care per gen surgery: * Patient okay to begin bathing as soon as it is medically safe for him to do so.? Recommend removing packing and allowing shower water to enter a wound to irrigate it then repacking (after patting this area dry and expelling water from the wound cavity). * Continue daily packing of the wound just to stent open the opening to the deeper cavity with plain packing strip Cx growing out mixed COUNCIL MEMBER and GPR Change antibiotics to amox/CA for 6 more days (3) Paroxysmal A-fib: Status: Acute Code(s): I48.0 - Paroxysmal atrial fibrillation Plan: Stable Continue with carvedilol and apixaban. (4) History of DVT (deep vein thrombosis): Status: Acute Code(s): Z86.718 - Personal history of other venous thrombosis and embolism Plan: H/O IVC filter placement. Patient has noted allergies to enoxaparin and heparin.? Will hold off on anticoagulation at this point in time particular in light of the surgery.? But if do need to initiate anticoagulation and would need to hold off on his oral agents, will have to further clarify what his adverse reactions were to the heparin and enoxaparin.? If he does have severe reaction may need to consider another agent such as argatroban. Plan Chronic Conditions: * Anemia of chronic disease/iron deficiency anemia-stable, trend CBC.? * Hypertension-continue home Coreg, amlodipine. * Hyperlipidemia-not on regimen. * History of bladder cancer-status post resection and reconstructive surgery. * History of lymphoma-in remission. DVT prophylaxis- Eliquis Dispostion: TBD. To care home facility. We will wait on final culture results. Hopefully 1 more day and can transition over to oral. Medications at Discharge Home Medications carvedilol 6.25 mg tablet 6.25 mg PO BID blood pressure 04/24/17 amlodipine 5 mg tablet 5 mg PO DAILY BP 11/07/19 polyethylene glycol 3350 17 gram/dose oral powder 17 gm PO DAILY CONSTIPATION 07/02/20 vitamin B complex 1 tab PO DAILY SUPPLEMENT 07/02/20 cetirizine 10 mg capsule 10 mg PO DAILY #30 caps 07/04/20 acetaminophen 325 mg tablet (Tylenol) 650 mg PO Q6H PRN PRN Pain Score 1-10/Temp > 100.7 F #0 tabs 02/20/22 amoxicillin 875 mg-potassium clavulanate 125 mg tablet 1 tab PO BID #12 tabs apixaban 2.5 mg tablet (Eliquis) 2.5 mg PO BID #0 tabs 02/20/22 ferrous sulfate 325 mg (65 mg iron) tablet 325 mg PO QODAY SUPPLEMENT #30 tabs 02/20/22 furosemide 40 mg tablet 40 mg PO BIDCM #30 tabs 02/20/22 melatonin 10 mg sublingual tablet 5 mg PO QHS #0 tabs 02/20/22 nystatin 100,000 unit/gram topical powder (Nyamyc) 1 applic topical BID #0 grams 02/20/22 potassium chloride 10 mEq tablet,extended release(part/cryst) 20 meq PO DAILY SUPPLEMENT #30 tabs 02/20/22 Hospital Course Operations - (I+D right groin abscesss) Procedures Dialysis Summary of Care Provided Minutes Spent on Discharge: 35 Hospital Course: 76-year-old male presents with uremia. Patient was seen by nephrology and started on hemodialysis. Patient's uremic symptoms resolved. Patient tolerated dialysis well. While he was here, patient was found to have a right groin lesion. Patient had told several people that he developed this after trying to edith something with a pocket knife (only later to recanted that statement saying that he must been confused when he was saying that). Patient was taken to the OR by Dr. Mccoy for incision and drainage with the patient tolerated well. Culture grew out coag negative staph as well as a gram-positive bro. Patient was on vancomycin and piperacillin/tazobactam. Patient will be discussed charged with amoxicillin/clavulanic acid. Patient will return to [facility] but under the skilled side. Weight / BMI Weight Weight: 101.3 kg Body Mass Index (BMI) 32.5 ABG / Lab / Microbiology Data Result Diagrams: 02/19/22 05:40 02/20/22 05:55 Laboratory: Laboratory Results - last 24 hr 02/20/22 05:55: Random Vancomycin 20.5 H 02/20/22 05:55: Sodium 143, Potassium 3.2 L, Chloride 110 H, Carbon Dioxide 22.0, Anion Gap Cancelled, BUN 80 H, Creatinine 5.20 H, Estim Creat Clear Calc 12.27, Est GFR (MDRD) Af Amer 14 L, Est GFR (MDRD) Non-Af 12 L, BUN/Creatinine Ratio 15.4, Glucose 126 H, Calcium 7.4 L, Phosphorus 4.1, Albumin 2.5 L Microbiology: Microbiology 02/17/22 10:00 Wound - Groin Gram Stain - Final 02/17/22 10:00 Wound - Groin Wound Culture - Preliminary Coag Negative Staph Gram positive bro 02/18/22 14:50 Discharge - Aerobic & Anaerobic Swabs Gram Stain - Final 02/18/22 14:50 Discharge - Aerobic & Anaerobic Swabs Wound Culture - Preliminary No growth-Final to follow Radiography Diagnostic Testing: Radiology Impression Chest X-Ray 02/19/22 22:10 IMPRESSION: No acute cardiopulmonary disease Electronically Signed: Humberto Monet at 23:45 EDT Reading Location ID and State: [facility] / [place] Tel , Service support , D/C Instructions Discharge Diet: Low fat / Low cholesterol Please Follow Up With: Dialysis Center,[facility] Meaningful Use Info Meaningful Use Diagnoses (Choose all that apply): None applicable Discharge Plan Admission Admit Date/Time: 02/16/22 15:07 Primary Reason for Your Visit: acute on chronic kidney disease Attending Provider: dE Dinero Primary Care Provider: Martin Nunez Consulting Providers: Sonia He ; River Mejia ; Benjamin Mccoy Instructions Additional Instructions / Restrictions: Patient okay to begin bathing as soon as it is medically safe for him to do so.? Recommend removing packing and allowing shower water to enter a wound to irrigate it then repacking (after patting this area dry and expelling water from the wound cavity). Continue daily packing of the wound just to stent open the opening to the deeper cavity with plain packing strip Discharge Orders/Prescriptions Prescriptions: New acetaminophen [Tylenol] 325 mg Tablet 650 mg PO Q6H PRN PRN (Reason: Pain Score 1-10/Temp > 100.7 F) Qty: 0 0RF Eliquis 2.5 mg Tablet 2.5 mg PO BID Qty: 0 0RF nystatin [Nyamyc] 100,000 unit/gram Powder 1 applic topical BID Qty: 0 0RF Protocol: *Topical Application Instructions APPLICATION INSTRUCTIONS: Apply to area under pannus. Avoid right groin wound melatonin 10 mg Tablet, Sublingual 5 mg PO QHS Qty: 0 0RF amoxicillin-pot clavulanate 875-125 mg tablet 1 tab PO BID Qty: 12 0RF Continued amlodipine 5 mg tablet 5 mg PO DAILY carvedilol 6.25 MG tablet 6.25 mg PO BID vitamin B complex 1 EACH tablet 1 tab PO DAILY polyethylene glycol 3350 119 GM powder 17 gm PO DAILY cetirizine 10 MG capsule 10 mg PO DAILY Qty: 30 0RF Changed furosemide 40 MG tablet 40 mg PO BIDCM Qty: 30 0RF ferrous sulfate 325 mg (65 mg iron) tablet 325 mg PO QODAY Qty: 30 0RF potassium chloride 10 MEQ tablet,ER particles/crystals 20 meq PO DAILY Qty: 30 0RF Referrals / Follow Up: Martin Nunez DO [Primary Care Provider] - Within 2 Weeks Disposition Disposition (needs filled in before D/C Order can be placed): Jail Facility Charges/Coding Visit Charges Inpatient E&M: 28717 Disch Hosp
--- NOTE | 2022-02-20 10:49 | CASEMGMT ---
RN CM updated that patient will be discharging today. Call to [facility] to see if patient is able to have HD at [facility] today. [facility] to call RN MIREYA back regarding HD for today. CM will continue to plan for a safe discharge.
--- NOTE | 2022-02-20 11:06 | CASEMGMT ---
Social Work SW completed hospital exemption, placed on chart for form to go w/pt at discharge. OMER Dickson
--- NOTE | 2022-02-20 13:00 | CASEMGMT ---
KRUPA GOMES received call back from Jacque at [facility]. Patient is setup to start HD at [facility] on Tuesday. Per Jacque, patient will need to have HD at [facility] prior to discharge to [facility] over the weekend. KRUPA GOMES updated charge nurse and hospitalist.
--- NOTE | 2022-02-20 14:07 | PCM.PN.REN ---
Subjective Subjective clinically stable, does not appear as SOB or anxious today. Dialysis scheduled for today. Objective Data Objective Data Vital Signs: Vital Signs Temp Pulse Resp BP Pulse Ox O2 Del Method O2 Flow Rate 97.5 F L 88 18 122/69 H 94 Room Air 2 02/20/22 09:00 02/20/22 09:00 02/20/22 09:00 02/20/22 09:00 02/20/22 09:00 02/20/22 09:00 02/19/22 23:54 FiO2 96 02/17/22 22:00 Oxygen Flow Rate (L/min) 2 Oxygen Delivery Method Room Air Weight: 101.3 kg Body Mass Index (BMI) 32.5 Intake & Output: Intake and Output for Last 24 Hours 02/18/22 02/19/22 02/20/22 23:59 23:59 23:59 Intake Total 1185 / 1245 810.00 / 910.00 1050 / 1050 Output Total 1000 / 1175 175 / 175 525 / 525 Balance 185 / 70 635.00 / 735.00 525 / 525 Lab / Micro Data Result Diagrams: 02/19/22 05:40 02/20/22 05:55 Labs: Laboratory Results - last 24 hr 02/20/22 05:55: Random Vancomycin 20.5 H 02/20/22 05:55: Sodium 143, Potassium 3.2 L, Chloride 110 H, Carbon Dioxide 22.0, Anion Gap Cancelled, BUN 80 H, Creatinine 5.20 H, Estim Creat Clear Calc 12.27, Est GFR (MDRD) Af Amer 14 L, Est GFR (MDRD) Non-Af 12 L, BUN/Creatinine Ratio 15.4, Glucose 126 H, Calcium 7.4 L, Phosphorus 4.1, Albumin 2.5 L Micro: Microbiology 02/20/22 11:19 Nasal Secretion SARS-CoV-2 Antigen (Rapid) - Final 02/17/22 10:00 Wound - Groin Gram Stain - Final 02/17/22 10:00 Wound - Groin Wound Culture - Preliminary Coag Negative Staph Gram positive bro 02/18/22 14:50 Discharge - Aerobic & Anaerobic Swabs Gram Stain - Final 02/18/22 14:50 Discharge - Aerobic & Anaerobic Swabs Wound Culture - Preliminary No growth-Final to follow Radiography Diagnostic Testing: Radiology Impression Chest X-Ray 02/19/22 22:10 IMPRESSION: No acute cardiopulmonary disease Electronically Signed: Humberto Healy DO at 23:45 EDT , Physical Exam Const alert and oriented x3 Resp clear to auscultation bilaterally Cardio Cardio Narrative: afib GI Auscultation: normoactive bowel sounds Extremity no clubbing, cyanosis or edema Assessment & Plan Assessment/Plan (1) ESRD (end stage renal disease): PLAN: Dialysis today. Await disposition. (2) Metabolic acidosis: PLAN: resolved (3) Hyperkalemia: PLAN: resolved (4) Essential hypertension: PLAN: stable (5) Iron deficiency anemia: PLAN: hgb stable (6) Uremia: PLAN: resolved (7) Debility: PLAN: rehab
[2022-02-20] MEDS: 0.9% Saline Lock 10 ML Syringe IV (14:26)
--- NOTE | 2022-02-20 16:10 | DIALYSIS ---
Addendum entered by Yan Solis 02/20/22 17:22: Dr. He would like welder 2nd shift HD RN to attempt cannulation and HD treatment. Patient informed. Primary RN, [place] Asif informed. Original Note: Report from primary [place]. Access: Right upper arm AVF. Site bruised and swollen. Thrill and bruit present. Thrill is shallow. Attempted cannulation x 3 using 17 gauge needles. first needle showed blood return. Upon flushing needle, push and pull very sluggish. The following 2 cannulation attempts both had initial flashed of blood return. Upon advancing needles blood return was lost. This may be due to spasms. Dr. He called to notify. Report given to primary [facility]
[2022-02-20] MEDS: MELATONIN 10 MG TABLET 5 MG PO (20:44)
[2022-02-20 22:20] LABS: Bedside Glucose 201 mg/dL (74-106)
--- NOTE | 2022-02-20 22:28 | NURSING ---
Addendum entered by Lyndsey Ibrahim 02/20/22 22:35: It was communicated they would be here at 19:00 tonight Original Note: This nurse call [facility] dialysis to see what time they would be here at 19:00 tonight to try to assess fistula again, but no answer. Back line Dr. He and she communicated that they came and could not cannulate fistula. Will have to wait for another nurse to come out tomorrow to try again. Will let patient know.
[2022-02-21] VITALS (8 sets, daily range): BP systolic 113–127; BP diastolic 48–73; PULSE 88–104; RESP 17–20; TEMP 36.5–36.8; O2SAT 93–94; BMI 33.0
[2022-02-21] MEDS: 0.9% Saline Lock 10 ML Syringe IV ×2 (09:36→14:27)
--- NOTE | 2022-02-21 09:37 | PCM.PN.BLA ---
Progress Note dialysis nurse unable to cannulate fistula yesterday after 3 failed attempts. Will attempt to dialyze today with AVF, if unable to use fistula, he will need a tunneled catheter placed prior to discharge with fistulogram as outpt. Addendum: dialysis nurse today unable to utilize fistula for dialysis. Consult general surgery for tunneled catheter placement tomorrow, fistulogram on Tuesday by vascular.
[2022-02-21] MEDS: Loratadine 10 MG Tablet PO (09:40)
[2022-02-21] MEDS: Folic Acid/Vitamin B Comp W-C 1 Capsule 1 CAP PO (09:40)
[2022-02-21] MEDS: Nystatin Powder 15gm Bottle 1 APPLIC TOPICAL ×2 (09:40→21:08)
[2022-02-21] MEDS: APIXABAN 2.5 MG TABLET PO (09:40)
[2022-02-21] MEDS: Polyethylene Glycol 3350 17 GM PACKET PO (09:40)
[2022-02-21 10:51] LABS: International Normalized Ratio 1.4; Prothrombin Time (Protime)PT. 17.2 SECONDS (11.7-14.9)
[2022-02-21 11:11] LABS: Albumin, Serum 2.7 g/dL (3.2-5.0); BUN 91 mg/dL (7-18); BUN/Creat Ratio 15.9 RATIO (10-20); Calcium,Total 7.6 mg/dL (8.5-10.1); Chloride 108 mmol/L (98-107); Creatinine, Serum 5.72 mg/dL (0.70-1.30); EST Glomerular Filtration Rate 10 mL/min (>60); Est Glom Filt Rate - Afr Amer 13 mL/min (>60); Estimated Creatinine Clearance 11.16 ml/min; Glucose 183 mg/dL (74-106); Phosphorus 4.8 mg/dL (2.5-4.9); Potassium 3.5 mmol/L (3.5-5.1); Sodium Level 142 mmol/L (136-145)
--- NOTE | 2022-02-21 12:04 | PN.HOSP_ITS ---
Subjective Subjective Difficulty with getting dialysis access yesterday. The try to get someone to come in at night to give dialysis but they are unable to obtain such individual. Patient otherwise feels well. Objective Data Objective Data Vital Signs: Vital Signs Temp Pulse Resp BP Pulse Ox O2 Del Method O2 Flow Rate 36.6 C 104 H 17 114/73 93 Room Air 2 02/21/22 09:35 02/21/22 09:35 02/21/22 09:35 02/21/22 09:35 02/21/22 09:35 02/21/22 09:35 02/20/22 15:00 FiO2 96 02/17/22 22:00 Oxygen Flow Rate (L/min) 2 Oxygen Delivery Method Room Air Weight: 101.3 kg Body Mass Index (BMI) 32.5 Intake & Output: Intake and Output for Last 24 Hours 02/19/22 02/20/22 02/21/22 23:59 23:59 23:59 Intake Total 810.00 / 910.00 1460 / 1460 290 / 290 Output Total 175 / 175 525 / 525 Balance 635.00 / 735.00 935 / 935 290 / 290 Lab / Micro Data Result Diagrams: 02/19/22 05:40 02/21/22 10:20 Labs: Laboratory Results - last 24 hr 02/20/22 20:36: POC Glucose 201 H 02/21/22 10:20: Sodium 142, Potassium 3.5, Chloride 108 H, Carbon Dioxide 20.0 L , BUN 91 H, Creatinine 5.72 H, Estim Creat Clear Calc 11.16, Est GFR (MDRD) Af Amer 13 L, Est GFR (MDRD) Non-Af 10 L, BUN/Creatinine Ratio 15.9, Glucose 183 H, Calcium 7.6 L, Phosphorus 4.8, Albumin 2.7 L 02/21/22 10:20: PT 17.2 H, INR 1.4 Micro: Microbiology 02/18/22 14:50 Discharge - Aerobic & Anaerobic Swabs Gram Stain - Final 02/18/22 14:50 Discharge - Aerobic & Anaerobic Swabs Wound Culture - Preliminary No growth-Final to follow 02/18/22 14:50 Discharge - Aerobic & Anaerobic Swabs Anaerobic Culture - Preliminary No growth in 48 hours. 02/17/22 10:00 Wound - Groin Gram Stain - Final 02/17/22 10:00 Wound - Groin Wound Culture - Final Coag Negative Staph Gram positive bro 02/20/22 11:19 Nasal Secretion SARS-CoV-2 Antigen (Rapid) - Final Physical Exam Const alert and no apparent distress Resp normal respiratory effort, no retractions, no use of accessory muscles and clear to auscultation bilaterally GI normal to inspection, nondistended, normoactive bowel sounds and soft to palpation Extremity Extremity Narrative: Bruising around right arm fistula Psych affect normal Assessment & Plan Assessment/Plan (1) Acute kidney injury superimposed on chronic kidney disease: PLAN: Acute kidney injury on chronic kidney disease stage IV-nephrology consulted.? Right AV fistula in place.? Continue HD Uremia and hyperkalemia resolved. IV lasix per nephrology. Unable to get access on the third and dialysis currently in the room right now to see if and get access. If unable to do so, patient may need a temporary tunneled dialysis catheter (2) Superficial injury of groin with infection: PLAN: Apparently started by patient using a pocket knife.? Is been present for some time.? Patient is not febrile from that.? Wound culture has been performed and results pending Start broad-spectrum antibiotics with vancomycin and piperacillin/tazobactam. Taken to the operating room on February 18 or patient underwent incision and drainage of the right groin wound. The wound dimensions measured 4 x 0.5 x 2.5 cm. Wound care per gen surgery: * Patient okay to begin bathing as soon as it is medically safe for him to do so.? Recommend removing packing and allowing shower water to enter a wound to irrigate it then repacking (after patting this area dry and expelling water from the wound cavity). * Continue daily packing of the wound just to stent open the opening to the deeper cavity with plain packing strip Cx growing out mixed HAIRCUTTER and GPR Change antibiotics to amox/CA for 6 more days (3) Paroxysmal A-fib: PLAN: Stable Continue with carvedilol and apixaban. (4) History of DVT (deep vein thrombosis): PLAN: H/O IVC filter placement. Patient has noted allergies to enoxaparin and heparin.? Will hold off on anticoagulation at this point in time particular in light of the surgery.? But if do need to initiate anticoagulation and would need to hold off on his oral agents, will have to further clarify what his adverse reactions were to the heparin and enoxaparin.? If he does have severe reaction may need to consider another agent such as argatroban. PLAN: Plan Chronic Conditions: * Anemia of chronic disease/iron deficiency anemia-stable, trend CBC.? * Hypertension-continue home Coreg, amlodipine. * Hyperlipidemia-not on regimen. * History of bladder cancer-status post resection and reconstructive surgery. * History of lymphoma-in remission. DVT prophylaxis- Eliquis Dispostion: TBD. To intermediate facility. Depending on dialysis access.. Charges/Coding Visit Charges Inpatient E&M: 66163 Subs Hosp L2
--- NOTE | 2022-02-21 13:08 | DIALYSIS ---
Unable to cannulate Left arm fistula with our smallest needles after 3 attempts. Area is very bruised with some swelling. Painful to patient. Dr He notified. She will get tunnelled line placed when able and then he can get dialysis at that time. Explained to patient and he is agreeable.
--- NOTE | 2022-02-21 13:18 | NURSING ---
Dr. He called this RN to inform that saw grinder was unable to access fistula again today for hemodialysis. Dr. He stated that Dr. Boudreaux will placed tunneled dialysis catheter tomorrow (02/22). Dr. He wants patient to stay through Tuesday, as she wants Dr. Miramontes to do Fistulogram on Tuesday. This RN will update son.
--- NOTE | 2022-02-21 13:39 | NURSING ---
Pt's son, Paul, updated on plan of care and surgery tomorrow to place tunneled dialysis catheter and plan for fistulogram; pt's son, Paul, will come in later this evening and sign consent.
[2022-02-21] MEDS: Furosemide 40 MG Tablet PO (17:49)
[2022-02-21] MEDS: MELATONIN 10 MG TABLET 5 MG PO (21:05)
[2022-02-21] MEDS: Carvedilol 6.25 MG Tablet PO (21:05)
[2022-02-21] MEDS: Amox/Clavulanate 875 MG Tablet PO (21:05)
[2022-02-22] VITALS (17 sets, daily range): BP systolic 103–136; BP diastolic 54–74; PULSE 79–96; RESP 16–24; TEMP 36.1–36.8; O2SAT 93–100
[2022-02-22 05:21] LABS: Absolute Lymphocyte Count 0.53 X10^3/uL (0.83-4.51); Absolute Neutrophil Count 4.6 X10^3/uL (2.0-7.7); Basophil# 0.04 X10^3/uL; Basophil% 0.6 % (0-1); Eosinophil# 0.33 X10^3/uL; Eosinophils% 5.3 % (0-5); Hematocrit 39.1 % (40-54); Lymphocyte # 0.53 X10^3/ul (0.83-4.51); Lymphocyte % 8.5 % (19-41); Mean Corp Hgb Conc 33.2 g/dL (32-36); Mean Corpuscular Hgb 31.6 pg (27.0-32.0); Mean Corpuscular Volume 95.1 fL (80-94); Mean Platelet Vol. 10.9 fl (6.2-12.0); Monocyte# 0.73 X10^3/uL; Monocyte% 11.7 % (0-10); NRBC Flagged by Analyzer 0 % (0-5); Neutrophil # 4.58 X10^3/uL (2.7-7.7); Neutrophil % 73.6 % (47-70); POSITIVE DIFFERENTIAL YES; Platelet Count 121 K/mm3 (150-450); RBC Distribution Width CV 14.9 % (11.6-14.6); RBC Distribution Width SD 51.2 fl (35.1-43.9); Red Blood Count 4.11 M/mm3 (4.6-6.2); White Blood Count 6.2 K/mm3 (4.4-11.0)
[2022-02-22 05:31] LABS: Differential Indicated SCAN CRITERIA MET
[2022-02-22 05:35] LABS: Albumin, Serum 2.4 g/dL (3.2-5.0); Anion Gap 12 (5-15); BUN 99 mg/dL (7-18); BUN/Creat Ratio 16.6 RATIO (10-20); Calcium,Total 7.3 mg/dL (8.5-10.1); Chloride 109 mmol/L (98-107); Creatinine, Serum 5.96 mg/dL (0.70-1.30); EST Glomerular Filtration Rate 10 mL/min (>60); Est Glom Filt Rate - Afr Amer 12 mL/min (>60); Estimated Creatinine Clearance 10.71 ml/min; Glucose 110 mg/dL (74-106); Phosphorus 5.7 mg/dL (2.5-4.9); Potassium 3.3 mmol/L (3.5-5.1); Sodium Level 142 mmol/L (136-145)
--- NOTE | 2022-02-22 05:55 | EKG12_ITS ---
Test Reason : Blood Pressure : / mmHG Vent. Rate : 091 BPM Atrial Rate : 000 BPM P-R Int : 000 ms QRS Dur : 182 ms QT Int : 428 ms P-R-T Axes : 000 -87 068 degrees QTc Int : 526 ms Atrial fibrillation Left axis deviation Right bundle branch block Abnormal ECG When compared with ECG of 16-FEB-2022 21:58, QT has lengthened Confirmed by SHAYNA BYERS, JEANETTE ([id number]), newspaper or periodical editor PASCUAL VEGA ([id number]) on 02/24/2022 11:21:21 AM Referred By: Confirmed By:JEANETTE CORRAL MD
[2022-02-22 06:26] LABS: Anisocytosis 1+; Macrocytosis 1+
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
[2022-02-22] MEDS: Cefazolin 2 GM in 0.9% Normal Saline 100 ML IV (09:21)
[2022-02-22] MEDS: Bupivacaine 0.25% 30 ML Vial (09:37)
[2022-02-22] MEDS: Lidocaine 1% (20 ml mdv) 20 ML Vial (09:37)
--- NOTE | 2022-02-22 09:53 | OP.PCM_ITS ---
Problems Associated Problem List Diagnoses (1) CKD (chronic kidney disease) stage 4, GFR 15-29 ml/min: Report of Operation Date of Procedure: 02/22/22 Pre-Operative Diagnosis: Stage IV kidney disease Post-Operative Diagnosis: Same Surgery/Procedure Performed:: Placement of a left internal jugular tunneled dialysis catheter Surgeon: Behzad Boudreaux print inspector: Kory East Type of Anesthesia: Local MAC Anesthesiologist: Jason Eid Estimated Blood Loss (mL): < 5 cc Description of Procedure: Patient was brought into the operating room. Placed in the supine position on the table. Given a light MAC anesthetic. I ultrasound the neck identified the internal jugular vein I marked the neck and chest appropriately. The neck and chest were then sterilely prepped and draped in the usual fashion. Local was injected into the neck. Seldinger's technique was used to gain access to the internal jugular vein guidewire was placed over the needle the needle was removed. Fluoroscopy was used to confirm proper placement of the guidewire. I injected local into the chest made an incision I made an incision in the neck. I then injected local from the chest up into the neck. I tunneled the 23 cm palindrome catheter from the chest up into the neck. I then sequentially dilated over the guidewire the internal jugular vein. Finally placing the dilator and sheath over the guidewire removing the dilator and guidewire. I placed the dialysis catheter into the sheath removing the sheath. I used fluoroscopy to confirm proper length to make sure the catheter was straight which it was. I flushed the catheter with 10 cc of normal saline in both ports. I did not use heparin secondary to his allergy. I sutured the catheter onto the chest with 3-0 nylon. Through the exit site I closed this with a 4-0 Vicryl and then the neck I closed this incision with a 4-0 Vicryl. Dermabond was placed on the neck incision. Sterile dressings were applied sterile dressings were applied on the chest. The patient tolerated the procedure well. Portable chest x-ray was ordered. Admit VTE Documentation VTE Present on Admission: No VTE Pharm Prophylaxis ordered?: Yes Reason prophylaxis not ordered:: Treatment Not Indicated
--- NOTE | 2022-02-22 09:57 | RAD_ITS ---
STUDY: X-RAY CHEST REASON FOR EXAM: Male, 76 years old. Status post permacath placement. TECHNIQUE: Single AP portable view of the chest. COMPARISON: 02/19/2022. FINDINGS: New left-sided permacath with the tip in the superior vena cava. Right-sided Port-A-Cath in stable position. No focal infiltrate is seen. There is no demonstrated pleural abnormality. There is borderline cardiomegaly. Normal mediastinum and donaldo. Normal visualized pulmonary arteries. There is atherosclerotic calcification of the aortic arch with tortuosity. No demonstrated acute osseous changes. There is no demonstrated abnormality of the visualized soft tissue structures of the upper abdomen. RAD/Chest 1 View (Portable) IMPRESSION: 1. Status post left permacath placement. 2. Otherwise no significant change. 3. No new infiltrate is seen. Electronically Signed: Pedro Luis Mancuso MD at 10:38 EDT ,
[2022-02-22] MEDS: Furosemide 40 MG Tablet PO (11:02)
[2022-02-22] MEDS: Folic Acid/Vitamin B Comp W-C 1 Capsule 1 CAP PO (11:02)
[2022-02-22] MEDS: Carvedilol 6.25 MG Tablet PO ×2 (11:03→20:25)
[2022-02-22] MEDS: Nystatin Powder 15gm Bottle 1 APPLIC TOPICAL ×2 (11:03→21:49)
[2022-02-22] MEDS: Amox/Clavulanate 875 MG Tablet PO ×2 (11:03→20:24)
--- NOTE | 2022-02-22 15:49 | PN.RENAL_ITS ---
Subjective Subjective Currently on dialysis using tunneled catheter placed this morning without incident. AV fistula with infiltration unable to push pull after blood flashback. Appetite improving. Denies shortness of breath or chest pain. Objective Data Objective Data Vital Signs: Vital Signs Temp Pulse Resp BP Pulse Ox O2 Del Method O2 Flow Rate 97.6 F L 79 20 H 118/66 94 Room Air 2 02/22/22 10:57 02/22/22 10:57 02/22/22 10:57 02/22/22 10:57 02/22/22 10:57 02/22/22 14:00 02/22/22 10:04 FiO2 96 02/17/22 22:00 Oxygen Flow Rate (L/min) 2 Oxygen Delivery Method Room Air Weight: 102.1 kg Body Mass Index (BMI) 33.0 Intake & Output: Intake and Output for Last 24 Hours 02/20/22 02/21/22 02/22/22 23:59 23:59 23:59 Intake Total 1460 / 1460 1310 / 1310 350 / 350 Output Total 525 / 525 75 / 75 Balance 935 / 935 1310 / 1310 275 / 275 Lab / Micro Data Result Diagrams: 02/22/22 05:06 02/22/22 05:06 Labs: Laboratory Results - last 24 hr 02/22/22 05:06: Sodium 142, Potassium 3.3 L, Chloride 109 H, Carbon Dioxide 21.0, Anion Gap 12, BUN 99 H, Creatinine 5.96 H, Estim Creat Clear Calc 10.71, Est GFR (MDRD) Af Amer 12 L, Est GFR (MDRD) Non-Af 10 L, BUN/Creatinine Ratio 16.6, Glucose 110 H, Calcium 7.3 L, Phosphorus 5.7 H, Albumin 2.4 L 02/22/22 05:06: WBC 6.2, RBC 4.11 L, Hgb 13.0, Hct 39.1 L, MCV 95.1 H, MCH 31.6, MCHC 33.2, RDW Std Deviation 51.2 H, RDW Coeff of Lencho 14.9 H, Plt Count 121 L, MPV 10.9, Immature Gran % (Auto) 0.300, Neut % (Auto) 73.6 H, Lymph % (Auto) 8.5 L, [place] % (Auto) 11.7 H, Eos % (Auto) 5.3 H, Baso % (Auto) 0.6, Absolute Neuts (auto) 4.6, Absolute Lymphs (auto) 0.53 L, Nucleated RBC % 0, Anisocytosis 1+, Macrocytosis 1+ Micro: Microbiology 02/18/22 14:50 Discharge - Aerobic & Anaerobic Swabs Gram Stain - Final 02/18/22 14:50 Discharge - Aerobic & Anaerobic Swabs Wound Culture - Final No growth aerobically. 02/18/22 14:50 Discharge - Aerobic & Anaerobic Swabs Anaerobic Culture - Preliminary No growth in 48 hours. 02/17/22 10:00 Wound - Groin Gram Stain - Final 02/17/22 10:00 Wound - Groin Wound Culture - Final Coag Negative Staph Gram positive bro 02/20/22 11:19 Nasal Secretion SARS-CoV-2 Antigen (Rapid) - Final Radiography Diagnostic Testing: Radiology Impression Chest X-Ray 02/22/22 09:57 IMPRESSION: 1. Status post left permacath placement. 2. Otherwise no significant change. 3. No new infiltrate is seen. Electronically Signed: Pedro Luis Mancuso MD at 10:38 EDT , Physical Exam Const alert and oriented x3 General Appearance: well developed Orientation / Consciousness: oriented to person Resp clear to auscultation bilaterally Cardio Cardio Narrative: Atrial fibrillation GI non-tender and non-distended Auscultation: normoactive bowel sounds Extremity General Extremity: AV fistula Assessment & Plan Assessment/Plan (1) ESRD (end stage renal disease): PLAN: Dialysis today. DC to ECF after fistulogram scheduled for tomorrow. Dialysis with tunneled catheter in the meantime. (2) Metabolic acidosis: PLAN: resolved (3) Hyperkalemia: PLAN: resolved (4) Essential hypertension: PLAN: stable (5) Iron deficiency anemia: PLAN: hgb stable (6) Uremia: PLAN: resolved (7) Debility: PLAN: rehab
[2022-02-22] MEDS: 0.9% Saline Lock 10 ML Syringe IV (16:52)
[2022-02-22] MEDS: Ondansetron 4 MG/2 ML Vial IV (16:52)
[2022-02-22] MEDS: LORazepam 0.5 MG Tablet PO (17:17)
--- NOTE | 2022-02-22 19:50 | DIALYSIS ---
Hemodialysis x3.5 hours completed at 1930 on a 3K bath, tolerated poorly, UF 0mL (per orders), accessed via newly placed left chest tunneled dialysis catheter, worked well, LORI AVF very bruised, +bruit +thrill, anxious and lethargic during tx, c/o nausea, feeling as if can't breathe, dizziness (when rolled to side for pericare), received Zofran and Ativan, repositioned, emotional support provided; circuit clotted with 1hr left, re-setup and resumed tx, allergy listed to Heparin, ACD-A not available from pharmacy, double saline flushed catheter ports post treatment
[2022-02-22] MEDS: Acetaminophen 325 MG Tablet 650 MG PO (20:24)
[2022-02-22] MEDS: MELATONIN 10 MG TABLET 5 MG PO (20:24)
--- NOTE | 2022-02-22 21:50 | NURSING ---
Pt noted with breathing improved at this time. Noted wheezes noted at present time. Pt denies c/o feeling SOB. Will continue to monitor pt. Per RT no aersol treatment needed.
[2022-02-23] VITALS (10 sets, daily range): BP systolic 104–136; BP diastolic 54–79; PULSE 78–94; RESP 16–20; TEMP 36.4–36.7; O2SAT 96–98; BMI 33.1
--- NOTE | 2022-02-23 06:11 | NURSING ---
pt noted no void this shift bladder scan completed at this time 69 ml noted.
[2022-02-23 06:13] LABS: Absolute Lymphocyte Count 0.47 X10^3/uL (0.83-4.51); Absolute Neutrophil Count 4.5 X10^3/uL (2.0-7.7); Basophil# 0.03 X10^3/uL; Basophil% 0.5 % (0-1); Eosinophil# 0.24 X10^3/uL; Hematocrit 39.5 % (40-54); Hemoglobin 12.7 g/dL (13.0-16.5); Lymphocyte # 0.47 X10^3/ul (0.83-4.51); Lymphocyte % 7.8 % (19-41); Mean Corp Hgb Conc 32.2 g/dL (32-36); Mean Corpuscular Volume 96.3 fL (80-94); Mean Platelet Vol. 10.9 fl (6.2-12.0); Monocyte# 0.78 X10^3/uL; NRBC Flagged by Analyzer 0 % (0-5); Neutrophil # 4.47 X10^3/uL (2.7-7.7); Neutrophil % 74.5 % (47-70); POSITIVE COUNT YES; POSITIVE DIFFERENTIAL YES; Platelet Count 65 K/mm3 (150-450); RBC Distribution Width CV 14.6 % (11.6-14.6); RBC Distribution Width SD 50.7 fl (35.1-43.9)
[2022-02-23 06:15] LABS: Differential Indicated SCAN CRITERIA MET
[2022-02-23 06:34] LABS: Macrocytosis 1+; Platelet Estimate MOD DEC (ADEQ)
[2022-02-23 06:40] LABS: Anion Gap 12 (5-15); BUN 51 mg/dL (7-18); BUN/Creat Ratio 12.7 RATIO (10-20); Calcium,Total 7.5 mg/dL (8.5-10.1); Chloride 103 mmol/L (98-107); Creatinine, Serum 4.03 mg/dL (0.70-1.30); EST Glomerular Filtration Rate 16 mL/min (>60); Est Glom Filt Rate - Afr Amer 19 mL/min (>60); Estimated Creatinine Clearance 15.84 ml/min; Glucose 97 mg/dL (74-106); Potassium 3.2 mmol/L (3.5-5.1); Sodium Level 139 mmol/L (136-145)
--- NOTE | 2022-02-23 08:26 | WOUNDNOTE ---
Dr Miramontes in to discuss fistulogram with possible angioplasty with patient. consent signed. all questions were answered by Dr Miramontes. charge nurse aware that consent was signed.
--- NOTE | 2022-02-23 09:16 | WOUNDNOTE ---
wound photo: right upper thigh/groin
--- NOTE | 2022-02-23 09:20 | CASEMGMT ---
Addendum entered by Ro Martinez 02/23/22 10:55: This RN CM spoke with Dr. He and Bart from [facility] and both state ok for pt to d/c to [facility] today and pt will have HD there tomorrow. Pt's run M,T,W,F at [facility]. Dr. Renae aware pt ready for d/c from dialysis standpoint and pt's son, Paul, updated at this time. Son would like to be updated with transport time when obtained. CM to follow. Octavia GENTILE CM Original Note: Per notes, pt's AV fistula was not working well over weekend and tunnel cath was placed 02/22/22 and then pt had HD last pm thru tunnel cath. Plan is to d/c pt to [facility] today. Spoke with Ciarra at [facility] to update on all, voices understanding and states that pt is supposed to be set up at [facility] for HD but will notify this RN CM for any change in plans. CM to follow. Octavia GENTILE CM
--- NOTE | 2022-02-23 10:00 | TREXTCAR_ITS ---
Diet Diet Order/Speech Therapy: 02/23/22 10:37 Diet: Renal - General Type of Dietary Supplement:: Nepro Is pt able to select menu?: Yes Routine Orders/Code Status Suppository Type: Dulcolax 10mg Suppository Frequency: Daily PRN Routine Lab Work: CBC and BMP Code Status: Full Code Wound(s) Right groin: Wound Type: Abscess Dressing Change: Packed with NuGauze right upper thigh: Wound Type: Abscess Dressing Change: Dry Sterile Dressing LEFT CHEST: Wound Type: Surgical Incision Therapies Weight Bearing: Full weight bearing Physical Therapy: Eval and Treat Occupational Therapy: Eval and Treat Speech Therapy: Eval and Treat Problem/Diagnosis (1) AV fistula stenosis: Status: Acute Code(s): T82.858A - Stenosis of other vascular prosthetic devices, implants and grafts, initial encounter (2) Essential hypertension: Status: Chronic Code(s): I10 - Essential (primary) hypertension (3) Hyperkalemia: Status: Acute Code(s): E87.5 - Hyperkalemia (4) ESRD (end stage renal disease): Status: Acute Code(s): N18.6 - End stage renal disease (5) Metabolic acidosis: Status: Acute Code(s): E87.2 - Acidosis (6) Iron deficiency anemia: Status: Acute Code(s): D50.9 - Iron deficiency anemia, unspecified (7) Uremia: Status: Acute Code(s): N19 - Unspecified kidney failure (8) Debility: Status: Acute Code(s): R53.81 - Other malaise Plan Chronic Conditions: * Anemia of chronic disease/iron deficiency anemia-hemoglobin 13.0. Platelet count 121,000, mild thrombocytopenia. * Hypertension-continue home Coreg, amlodipine. * Hyperlipidemia-not on regimen. * History of bladder cancer-status post resection and reconstructive surgery. * History of lymphoma-in remission. DVT prophylaxis- Eliquis Allergies/Procedures Done in Hospital Allergies enoxaparin [From Lovenox] Allergy (Verified 02/16/22 12:19) Other HIT heparin Allergy (Verified 02/16/22 12:19) Other HIT aspirin Adverse Reaction (Verified 02/16/22 12:19) Other BLEEDING Iodinated Contrast Media [CONTRASTS] Adverse Reaction (Verified 02/16/22 12:19) OTHER CAN'T BECAUSE OF KIDNEYS Procedures: - (Incision and drainage of right groin wound) Type of Care/Length of Stay Estimated LOS: Convalescent Care Less Than 30 days Type of Care Needed: Skilled Rehab Potential: Fair Prognosis: Fair Additional Orders/Day of Discharge Day of Discharge: 02/20/22 Dietary and Speech Recommendations Dietitian Recommendations/Changes: Renal-general diet; no need to restrict protein with dialysis. 8oz Nepro at lunch per pt request. Will monitor PO intake, wt, labs and adjust diet/ONS as indicated. Diet education as needed; plans for SNF at d/c. [facility]: Vito Munson Sat Discharge Plan Admission Admit Date/Time: 02/16/22 15:07 Primary Reason for Your Visit: acute on chronic kidney disease Attending Provider: Anselmo Renae Primary Care Provider: Martin Nunez Consulting Providers: Sonia He ; River Mejia ; Benjamin Mccoy ; Behzad Boudreaux ; Ed Miramontes ; Ed Dinero Instructions Additional Instructions / Restrictions: Patient okay to begin bathing as soon as it is medically safe for him to do so.? Recommend removing packing and allowing shower water to enter a wound to irrigate it then repacking (after patting this area dry and expelling water from the wound cavity). Continue daily packing of the wound just to stent open the opening to the deeper cavity with plain packing strip Discharge Orders/Prescriptions Prescriptions: New acetaminophen [Tylenol] 325 mg Tablet 650 mg PO Q6H PRN PRN (Reason: Pain Score 1-10/Temp > 100.7 F) Qty: 0 0RF Eliquis 2.5 mg Tablet 2.5 mg PO BID Qty: 0 0RF nystatin [Nyamyc] 100,000 unit/gram Powder 1 applic topical BID Qty: 0 0RF Protocol: *Topical Application Instructions APPLICATION INSTRUCTIONS: Apply to area under pannus. Avoid right groin wound melatonin 10 mg Tablet, Sublingual 5 mg PO QHS Qty: 0 0RF Virt-Caps 1 mg Capsule 1 cap PO DAILY Qty: 0 0RF amoxicillin-pot clavulanate 875-125 mg Tablet 875 mg PO BID Qty: 1 0RF Rx Instructions: Patient completes amoxicillin clavulanate, last dose tonight 02/23/2022 Continued amlodipine 5 mg tablet 5 mg PO DAILY carvedilol 6.25 MG tablet 6.25 mg PO BID vitamin B complex 1 EACH tablet 1 tab PO DAILY polyethylene glycol 3350 119 GM powder 17 gm PO DAILY cetirizine 10 MG capsule 10 mg PO DAILY Qty: 30 0RF Changed furosemide 40 MG tablet 40 mg PO BIDCM Qty: 30 0RF ferrous sulfate 325 mg (65 mg iron) tablet 325 mg PO QODAY Qty: 30 0RF Discontinued potassium chloride 10 MEQ tablet,ER particles/crystals 20 meq PO TID Referrals / Follow Up: Sonia He DO [Med Staff - Consulting] - Within 2 Weeks Ed Miramontes MD [Med Staff - Active Staff] - Within 1 Month Martin Nunez DO [Primary Care Provider] - Within 2 Weeks Disposition Disposition (needs filled in before D/C Order can be placed): Intermediate Facility
--- NOTE | 2022-02-23 10:09 | PCM.OPRPT ---
Report of Operation Date of Procedure: 02/23/22 Pre-Operative Diagnosis: Stenosis of AV fistula Post-Operative Diagnosis: No stenosis; acute angle proximal fistula, moderate sized branch proximal fistula Surgery/Procedure Performed:: Fistulagram Surgeon: Ed Miramontes Type of Anesthesia: Local and Sedation,Conscious Estimated Blood Loss (mL): 3 Description of Procedure: HPI: Patient is a 76-year-old male with a right basilic transposition created about 1 year prior and had not been attempted for use until recently. They had difficulty with infiltration after successful access despite multiple efforts. He has had a tunneled catheter placed for dialysis in the meantime and presents now for fistulogram to assess and possibly treat. Description of procedure: Upon obtaining informed consent and verification correct patient procedure and site patient was taken to the [facility] where he was positioned prepped and draped in usual sterile fashion. Timeout was performed and conscious sedation was administered. Ultrasound was used to evaluate the fistula and appeared to be satisfactory caliber and depth throughout its length. There did appear to be one fairly sizable branch just distal to the anastomosis. Skin was then anesthetized with 1% lidocaine micropuncture needle and a wire used to access under ultrasound guidance. This was then exchanged for micropuncture sheath through which sequential subtraction angiography images were taken along the length of the dialysis circuit outflow. The fistula was then compressed distally and further hand-injection subtraction images obtained with reflux into the arterial system. There were no lesions visualized that would compromise the fistula function. There wasone area approximately 5 cm distal to the artery anastomosis where there was a very abrupt angulation that may be the source of some of their access difficulties. Seeing no lesions that require treatment the micropuncture catheter was withdrawn and a U stitch placed in the skin followed by 2 minutes of manual pressure. Satisfactory stasis was noted and a dry dressing was applied. Radiograph interpretation: Satisfactory caliber stage II basilic fistula with no evidence of stenosis within the fistula or within the outflow tract. Normal caliber axillary subclavian innominate veins as well as superior vena cava with no stenosis of the outflow. Arterial anastomosis with no stenosis. Filling of the deep system via proximal branch with fistula compression.
--- NOTE | 2022-02-23 10:21 | CON.PCM.SX_ITS ---
Assessment & Plan Assessment/Plan (1) AV fistula stenosis: PLAN: -unable to successfully use -has good thrill proximal, will assess with fistulogram and U/S for stenosis or depth issues HPI Consult Data Date of Consult: 02/23/22 HPI Narrative HPI Narrative: RIA MARIANO, is a 76 M who is admitted with weakness, nausea, worsening renal function. Was initiated on HD via right arm Stage II basilic AVF that had been placed about a year ago by Dr. Flynn at [facility]. Despite several efforts unable to successfully perform HD due to infiltration. He had a tunneled catheter placed in order to facilitate HD while fistula issues investigated. He denies arm edema since fistula creation. Denies arm/clavicle fracture. Does have right chest medport, now left IJ catheter. 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 On Eliquis for a.fib. [facility] Medical History (Updated 02/23/22 @ 10:[address] Ed Miramontes MD) Acute kidney injury Anemia Bladder cancer CKD (chronic kidney disease) stage 4, GFR 15-29 ml/min Elevated troponin Essential hypertension History of DVT (deep vein thrombosis) History of pulmonary embolism History of solitary pulmonary nodule Left upper chest discomfort Lower gastrointestinal bleeding Lymphoma Lymphoma Neutropenic fever Pancytopenia Paroxysmal A-fib Preop cardiovascular exam Renal calculus Shortness of breath VTE (venous thromboembolism) Home Medications carvedilol 6.25 mg tablet 6.25 mg PO BID blood pressure 04/24/17 [History Last Taken 02/15/22] amlodipine 5 mg tablet 5 mg PO DAILY BP 11/07/19 [History Last Taken 07/02/20] polyethylene glycol 3350 17 gram/dose oral powder 17 gm PO DAILY CONSTIPATION 07/02/20 [History Last Taken 02/14/22] vitamin B complex 1 tab PO DAILY SUPPLEMENT 07/02/20 [History Last Taken 02/15/22] cetirizine 10 mg capsule 10 mg PO DAILY #30 caps 07/04/20 [Rx Last Taken Unknown] acetaminophen 325 mg tablet (Tylenol) 650 mg PO Q6H PRN PRN Pain Score 1-10/Temp > 100.7 F #0 tabs 02/20/22 [Rx Last Taken Unknown] amoxicillin 875 mg-potassium clavulanate 125 mg tablet 1 tab PO BID #12 tabs 02/20/22 [Rx Last Taken Unknown] apixaban 2.5 mg tablet (Eliquis) 2.5 mg PO BID #0 tabs 02/20/22 [Rx Last Taken Unknown] ferrous sulfate 325 mg (65 mg iron) tablet 325 mg PO QODAY SUPPLEMENT #30 tabs 02/20/22 [Rx Last Taken 02/15/22] furosemide 40 mg tablet 40 mg PO BIDCM #30 tabs 02/20/22 [Rx Last Taken 1 Week Ago ~02/09/22] melatonin 10 mg sublingual tablet 5 mg PO QHS #0 tabs 02/20/22 [Rx Last Taken Unknown] nystatin 100,000 unit/gram topical powder (Nyamyc) 1 applic topical BID #0 grams 02/20/22 [Rx Last Taken Unknown] potassium chloride 10 mEq tablet,extended release(part/cryst) 20 meq PO DAILY SUPPLEMENT #30 tabs 02/20/22 [Rx Last Taken 02/15/22] Allergy/AdvReac Type Severity Reaction Status Date / Time enoxaparin [From Lovenox] Allergy Other Verified 02/16/22 12:19 heparin Allergy Other Verified 02/16/22 12:19 aspirin AdvReac Other Verified 02/16/22 12:19 Iodinated Contrast Media AdvReac OTHER Verified 02/16/22 12:19 [CONTRASTS] Family History Father Cancer lung Brother Cancer testicular Surgical History AV fistula H/O total cystectomy History of cataract extraction History of corrected cleft lip and palate History of tonsillectomy Social History (Updated 02/16/22 @ 15:35 by Ciarra Lynne NP, [employer]) household members: none Smoking Status: Former smoker how long ago did patient quit smokin alcohol intake: never substance use type: does not use caffeine: No ROS Constitutional Constitutional: Reports fatigue; Denies chills, fever(s) or lethargy Eyes Eyes: Denies blind spots, change in vision or loss of vision ENT HEENT: Denies bleeding gums Cardiovascular Cardiovascular: Reports irregular heart rhythm and nausea; Denies bluish discoloration of hand/feet or chest pain with activity Respiratory/Chest Respiratory/Chest: Reports cough and excessive phlegm production; Denies shortness of breath at rest Gastrointestinal Gastrointestinal: Denies melena or rectal bleeding Genitourinary Genitourinary: Denies dysuria or hematuria Neurologic Neurologic: Denies abnormal speech, focal weakness, headache(s), loss of vision, numbness, paresthesias or sensory deficit Hematologic/Lymphatic Hematologic/Lymphatic: Reports other Details: on Eliquis ; Denies easy bleeding or easy bruising Physical Exam Const alert, oriented x3, no apparent distress and healthy appearing General Appearance: cooperative; Negative for combative or lethargic Orientation / Consciousness: awake Exam Limitations: no limitations HEENT Head and Scalp: normocephalic and atraumatic Eyes EOMs intact bilaterally General Eye: normal appearance of both eyes Neck full ROM and no lymphadenopathy General: trachea midline Resp normal respiratory effort and no use of accessory muscles Effort and Inspection: Negative for labored, stridor or audible wheezes Cardio regular rate and regular rhythm Cardio Narrative: Right stage II basilic AVF, +thrill more prominent at AC fossa, mild fullness/hematoma upper arm Peripheral Pulses: radial pulses present Back/Spine Cervical Spine: cervical ROM normal Extremity full ROM, normal capillary refill and no clubbing, cyanosis or edema Skin no rashes or lesions noted and no wounds Neuro oriented x3, CN's II-XII intact bilaterally, no focal motor deficits and no sensory deficits noted Psych thought process normal, cooperative, affect normal, speech normal and activity/motor behavior normal Lab / Micro Data Result Diagrams: 02/23/22 05:28 02/23/22 05:28 Labs: Laboratory Results - last 24 hr 02/23/22 05:28: WBC 6.0, RBC 4.10 L, Hgb 12.7 L, Hct 39.5 L, MCV 96.3 H, MCH 31.0, MCHC 32.2, RDW Std Deviation 50.7 H, RDW Coeff of Lencho 14.6, Plt Count 65 L , MPV 10.9, Immature Gran % (Auto) 0.200, Neut % (Auto) 74.5 H, Lymph % (Auto) 7.8 L, [place] % (Auto) 13.0 H, Eos % (Auto) 4.0, Baso % (Auto) 0.5, Absolute Neuts (auto) 4.5, Absolute Lymphs (auto) 0.47 L, Nucleated RBC % 0, Platelet Estimate MOD DEC, Macrocytosis 1+ 02/23/22 05:28: Sodium 139, Potassium 3.2 L, Chloride 103, Carbon Dioxide 24.0, Anion Gap 12, BUN 51 H, Creatinine 4.03 H, Estim Creat Clear Calc 15.84, Est GFR (MDRD) Af Amer 19 L, Est GFR (MDRD) Non-Af 16 L, BUN/Creatinine Ratio 12.7, Glucose 97, Calcium 7.5 L Micro: Microbiology 02/18/22 14:50 Discharge - Aerobic & Anaerobic Swabs Gram Stain - Final 02/18/22 14:50 Discharge - Aerobic & Anaerobic Swabs Wound Culture - Final No growth aerobically. 02/18/22 14:50 Discharge - Aerobic & Anaerobic Swabs Anaerobic Culture - Final No growth in 5 days. Radiology Impression Chest X-Ray 02/22/22 09:57 IMPRESSION: 1. Status post left permacath placement. 2. Otherwise no significant change. 3. No new infiltrate is seen. Electronically Signed: Pedro Luis Mancuso MD at 10:38 EDT ,
[2022-02-23] MEDS: Loratadine 10 MG Tablet PO (10:29)
[2022-02-23] MEDS: Folic Acid/Vitamin B Comp W-C 1 Capsule 1 CAP PO (10:29)
[2022-02-23] MEDS: Carvedilol 6.25 MG Tablet PO (10:29)
[2022-02-23] MEDS: Furosemide 40 MG Tablet PO (10:29)
[2022-02-23] MEDS: Amox/Clavulanate 875 MG Tablet PO (10:29)
[2022-02-23] MEDS: Potassium Chloride Oral Tablet 20 MEQ 40 MEQ PO (10:29)
[2022-02-23] MEDS: Nystatin Powder 15gm Bottle 1 APPLIC TOPICAL (10:30)
--- NOTE | 2022-02-23 10:31 | PN_ITS ---
Progress Note return from fistulogram. Discussed findings with vascular surgery. Ok to dc to ECF today from renal standpoint. [facility] on [facility]. Follow up at dialysis center. DW nursing staff and hospitalist.
--- NOTE | 2022-02-23 10:31 | PCM.PN.BLA ---
Progress Note return from fistulogram. Discussed findings with vascular surgery. Ok to dc to ECF today from renal standpoint. Dialysis next on Tuesday at [facility]. Follow up at dialysis center. DW nursing staff and hospitalist.
--- NOTE | 2022-02-23 10:40 | CASEMGMT ---
Discharge Analytical Laboratory Technician Gertrude galvez/jose roberto engineering assistant reached out to [facility]. Gertrude sent updates to Ebony. Will follow up. Plan: [facility] Gertrude Brush Discharge Analytical Laboratory Technician
--- NOTE | 2022-02-23 11:17 | DS.PCM_ITS ---
Providers Date of Admission: 02/16/22 Date of Discharge: 02/23/22 Primary Care Physician: Dr. Martin Nunez, Consultations 02/16/22 15:54 Consult: Nephrology Routine Consulting Provider: Sonia He Reason for Consult: Renal failure EMERGENT Consult: No MD Notified: Yes Date Notified: 02/16/22 Time Notified: 15:16 Method of Notification: Verbal Comments:: notified by ER 02/16/22 16:22 Consult: Onc/Wound/client delivery manager Routine Comment: Reason for Consult:: R groin wound 02/17/22 10:17 Consult: General Surgery Routine Consulting Provider: Benjamin Mccoy Reason for Consult: Right groin wound EMERGENT Consult: No MD Notified: Yes Date Notified: 02/17/22 Time Notified: 10:17 Method of Notification: Text 02/21/22 13:15 Consult: General Surgery Routine Consulting Provider: Behzad Boudreaux Reason for Consult: AV fistula placement EMERGENT Consult: No MD Notified: Yes Date Notified: 02/21/22 Time Notified: 13:15 Method of Notification: Answering Service 02/21/22 13:19 Consult: Vascular Surgery Routine Consulting Provider: Ed Miramontes Reason for Consult: fistulogram on Tuesday for AVF infiltration, clots EMERGENT Consult: No MD Notified: Yes Date Notified: 02/21/22 Time Notified: 13:19 Method of Notification: Answering Service Reason For Visit: RENAL FAILURE / UREMIA Diagnosis Discharge Diagnosis (1) AV fistula stenosis: Status: Acute Code(s): T82.858A - Stenosis of other vascular prosthetic devices, implants and grafts, initial encounter (2) Essential hypertension: Status: Chronic Code(s): I10 - Essential (primary) hypertension (3) Hyperkalemia: Status: Acute Code(s): E87.5 - Hyperkalemia (4) ESRD (end stage renal disease): Status: Acute Code(s): N18.6 - End stage renal disease (5) Metabolic acidosis: Status: Acute Code(s): E87.2 - Acidosis (6) Iron deficiency anemia: Status: Acute Code(s): D50.9 - Iron deficiency anemia, unspecified (7) Uremia: Status: Acute Code(s): N19 - Unspecified kidney failure (8) Debility: Status: Acute Code(s): R53.81 - Other malaise Plan Chronic Conditions: * Anemia of chronic disease/iron deficiency anemia-hemoglobin 13.0. Platelet count 121,000, mild thrombocytopenia. * Hypertension-continue home Coreg, amlodipine. * Hyperlipidemia-not on regimen. * History of bladder cancer-status post resection and reconstructive surgery. * History of lymphoma-in remission. DVT prophylaxis- Eliquis Medications at Discharge Home Medications carvedilol 6.25 mg tablet 6.25 mg PO BID blood pressure 04/24/17 amlodipine 5 mg tablet 5 mg PO DAILY BP 11/07/19 polyethylene glycol 3350 17 gram/dose oral powder 17 gm PO DAILY CONSTIPATION 07/02/20 vitamin B complex 1 tab PO DAILY SUPPLEMENT 07/02/20 cetirizine 10 mg capsule 10 mg PO DAILY #30 caps 07/04/20 acetaminophen 325 mg tablet (Tylenol) 650 mg PO Q6H PRN PRN Pain Score 1-10/Temp > 100.7 F #0 tabs 02/20/22 apixaban 2.5 mg tablet (Eliquis) 2.5 mg PO BID #0 tabs 02/20/22 ferrous sulfate 325 mg (65 mg iron) tablet 325 mg PO QODAY SUPPLEMENT #30 tabs 02/20/22 furosemide 40 mg tablet 40 mg PO BIDCM #30 tabs 02/20/22 melatonin 10 mg sublingual tablet 5 mg PO QHS #0 tabs 02/20/22 nystatin 100,000 unit/gram topical powder (Nyamyc) 1 applic topical BID #0 grams 02/20/22 amoxicillin 875 mg-potassium clavulanate 125 mg tablet 875 mg PO BID #1 TAB 02/23/22 vitamin B complex and vitamin C no.20-folic acid 1 mg capsule (Virt-Caps) 1 cap PO DAILY #0 caps 02/23/22 Hospital Course Summary of Care Provided Hospital Course: (1) Acute kidney injury superimposed on chronic kidney disease: PLAN: Acute kidney injury on chronic kidney disease stage IV- 02/22: Dietetic Intern is consulted.? Unable to cannulate AV fistula failed 3 attempts.? Left tunneled dialysis catheter was inserted.? Fistulogram planned for Tuesday.? Plan for dialysis.? Uremia and hyperkalemia resolved.? BUN 91, K3.5.? Bicarb 20, anion gap 14 9/6: Mild hypokalemia K3.2. 1 dose potassium supplement 40 M EQ given. Patient had fistulogram today. Mild subcutaneous post but no active bleeding or hematoma at puncture site. No stenosis. Acute angle proximal fistula, moderate-sized branch proximal fistula. Resume Eliquis in the evening today. (2) Superficial injury of groin with infection: Apparently started by patient using a pocket knife.? The wound has been present for some time.? Afebrile patient had incision and drainage of right groin on February 18, 2022. 02/23: Wound culture growing mixed CoNS and GPR.? On broad-spectrum antibiotic vancomycin and Zosyn, subsequently antibiotic was changed to amoxicillin clavulanate. Wound daily dressing. Patient will complete antibiotic today in the evening. (3) Paroxysmal A-fib: Not in RVR. Continue with carvedilol and apixaban. (4) History of DVT (deep vein thrombosis): H/O IVC filter placement. Patient has noted allergies to enoxaparin and heparin.? Will hold off on anticoagulation at this point in time particular in light of the surgery.? But if do need to initiate anticoagulation and would need to hold off on his oral agents, will have to further clarify what his adverse reactions were to the heparin and enoxaparin.? If he does have severe reaction may need to consider another agent such as argatroban. 5. Chronic Conditions: * Anemia of chronic disease/iron deficiency anemia-hemoglobin 13.0.? Platelet count 121,000, mild thrombocytopenia. * Hypertension-continue home Coreg, amlodipine. * Hyperlipidemia-not on regimen. * History of bladder cancer-status post resection and reconstructive surgery. * History of lymphoma-in remission.DVT prophylaxis- Eliquis Discharge medication reconciliation done. Discharge follow-up instructions completed. Discharge process discussed with the patient and all questions were answered to patient's satisfaction. Discharged to SNF. Total time spent, exact 35 minutes on discharge meds reconciliation, examination, coordination of care with nurses and ancillary staff, review of imaging and blood test and discussion with the patient on follow-up instructions. Physical Exam Narrative General: Alert, Oriented x3, Cooperative HEENT: Atraumatic, PERRLA, EOMI, Normocephalic Oral: No Gingival or Mucosal Lesions/ Ulcerations Neck: Supple, No JVD, Negative Carotid Bruits Lungs: Air entry diminished in bilateral lung bases. Mild chronic fine wheezing. Cardiovascular: Regular sinus rhythm, Normal S1, Normal S2, No murmurs Abdomen: Bowel Sounds Present, Soft, Non Tender, Non-Distended : No renal angle tenderness. No suprapubic tenderness. Extremities: Right arm bruise after fistulogram. Puncture site no active bleeding/hematoma. No edema, Capillary Refill Less than 3 Seconds Skin: Right groin status post incision and drainage, packed. Bruising right arm fistula. Musculoskeletal: No Tenderness to Palpation of Joints or Extremities. Muscle strength 4/5 at major joints. Neurological: Cranial nerves II-XII grossly intact, DTR 2+/4 Psych/Mental Status: Flat affect. Weight / BMI Weight Weight: 224 lb 6.889 oz Body Mass Index (BMI) 33.1 ABG / Lab / Microbiology Data Result Diagrams: 02/23/22 05:28 02/23/22 05:28 Laboratory: Laboratory Results - last 24 hr 02/23/22 05:28: WBC 6.0, RBC 4.10 L, Hgb 12.7 L, Hct 39.5 L, MCV 96.3 H, MCH 31.0, MCHC 32.2, RDW Std Deviation 50.7 H, RDW Coeff of Lencho 14.6, Plt Count 65 L , MPV 10.9, Immature Gran % (Auto) 0.200, Neut % (Auto) 74.5 H, Lymph % (Auto) 7.8 L, [place] % (Auto) 13.0 H, Eos % (Auto) 4.0, Baso % (Auto) 0.5, Absolute Neuts (auto) 4.5, Absolute Lymphs (auto) 0.47 L, Nucleated RBC % 0, Platelet Estimate MOD DEC, Macrocytosis 1+ 02/23/22 05:28: Sodium 139, Potassium 3.2 L, Chloride 103, Carbon Dioxide 24.0, Anion Gap 12, BUN 51 H, Creatinine 4.03 H, Estim Creat Clear Calc 15.84, Est GFR (MDRD) Af Amer 19 L, Est GFR (MDRD) Non-Af 16 L, BUN/Creatinine Ratio 12.7, Glucose 97, Calcium 7.5 L Microbiology: Microbiology 02/18/22 14:50 Discharge - Aerobic & Anaerobic Swabs Gram Stain - Final 02/18/22 14:50 Discharge - Aerobic & Anaerobic Swabs Wound Culture - Final No growth aerobically. 02/18/22 14:50 Discharge - Aerobic & Anaerobic Swabs Anaerobic Culture - Final No growth in 5 days. 02/17/22 10:00 Wound - Groin Gram Stain - Final 02/17/22 10:00 Wound - Groin Wound Culture - Final Coag Negative Staph Gram positive bro 02/20/22 11:19 Nasal Secretion SARS-CoV-2 Antigen (Rapid) - Final D/C Instructions Discharge Diet: Low fat / Low cholesterol Please Follow Up With: Dialysis Center,[facility] [place] Meaningful Use Info Meaningful Use Diagnoses (Choose all that apply): None applicable Discharge Plan Admission Admit Date/Time: 02/16/22 15:07 Primary Reason for Your Visit: acute on chronic kidney disease Attending Provider: Anselmo Renae Primary Care Provider: Martin Nunez Consulting Providers: Sonia He ; River Mejia ; Benjamin Mccoy ; Behzad Boudreaux ; Ed Miramontes ; Ed Dinero Instructions Additional Instructions / Restrictions: Patient okay to begin bathing as soon as it is medically safe for him to do so.? Recommend removing packing and allowing shower water to enter a wound to irrigate it then repacking (after patting this area dry and expelling water from the wound cavity). Continue daily packing of the wound just to stent open the opening to the deeper cavity with plain packing strip Vascular surgery instruction by Dr. Miramontes: Had fistulogram on 02/23/2022. Okay to resume Eliquis at 6 PM tonight. Remove dressing at puncture site on right arm tomorrow AM. Discharge Orders/Prescriptions Prescriptions: New acetaminophen [Tylenol] 325 mg Tablet 650 mg PO Q6H PRN PRN (Reason: Pain Score 1-10/Temp > 100.7 F) Qty: 0 0RF Eliquis 2.5 mg Tablet 2.5 mg PO BID Qty: 0 0RF nystatin [Nyamyc] 100,000 unit/gram Powder 1 applic topical BID Qty: 0 0RF Protocol: *Topical Application Instructions APPLICATION INSTRUCTIONS: Apply to area under pannus. Avoid right groin wound melatonin 10 mg Tablet, Sublingual 5 mg PO QHS Qty: 0 0RF Virt-Caps 1 mg Capsule 1 cap PO DAILY Qty: 0 0RF amoxicillin-pot clavulanate 875-125 mg Tablet 875 mg PO BID Qty: 1 0RF Rx Instructions: Patient completes amoxicillin clavulanate, last dose tonight 02/23/2022 Continued amlodipine 5 mg tablet 5 mg PO DAILY carvedilol 6.25 MG tablet 6.25 mg PO BID vitamin B complex 1 EACH tablet 1 tab PO DAILY polyethylene glycol 3350 119 GM powder 17 gm PO DAILY cetirizine 10 MG capsule 10 mg PO DAILY Qty: 30 0RF Changed furosemide 40 MG tablet 40 mg PO BIDCM Qty: 30 0RF ferrous sulfate 325 mg (65 mg iron) tablet 325 mg PO QODAY Qty: 30 0RF Discontinued potassium chloride 10 MEQ tablet,ER particles/crystals 20 meq PO TID Referrals / Follow Up: Sonia He DO [Med Staff - Consulting] - Within 2 Weeks Ed Miramontes MD [Med Staff - Active Staff] - Within 1 Month Martin Nunez DO [Primary Care Provider] - Within 2 Weeks Disposition Disposition (needs filled in before D/C Order can be placed): Detention Facility Charges/Coding Visit Charges Inpatient E&M: 51351 Disch Hosp
--- NOTE | 2022-02-23 12:00 | CASEMGMT ---
Social Work Discharge completed by Doctor with signed medication list. Per discharge marketing planning manager Gertrude, [facility] able to accept patient today. Transportation set up through [facility] for 02/23/2022 @ 14:00. Transportation form completed and placed with patient chart. Transfer to extended care facility, signed medication list, 7000, and COVID-19 screening tool faxed to [facility]. This social work lecturer communicating transportation time and date to patient, patient son, medical team, and [facility]. PLAN: [facility], skilled. Proposed discharge date: 02/23/2022 Mynor REDMAN, [facility]
== END 2022-02-23 14:10 | DRG 673 ==
LOC: ED 14:51 → PCU 15:19
PROVIDERS: Internal Medicine Nephrology; Nurse Practitioner Family; Surgery; Admitting Provider Internal Medicine; Emergency Provider Emergency Medicine; PCP Student in an Organized Health Care Education/Training Program; Visit Provider Internal Medicine
PROC: 0J9C0ZZ Drainage of Pelvic Region Subcutaneous Tissue and Fascia, Open Approach (ICD-10-PCS; principal; 2022-02-18 14:15)
PROC: 0JH63XZ Insertion of Tunneled Vascular Access Device into Chest Subcutaneous Tissue and Fascia, Percutaneous Approach (ICD-10-PCS; principal; 2022-02-22 09:30)
DX: I12.0 Hypertensive chronic kidney disease with stage 5 chronic kidney disease or end stage renal disease (principal); N18.6 End stage renal disease; N17.9 Acute kidney failure, unspecified; L02.214 Cutaneous abscess of groin; B96.89 Other specified bacterial agents as the cause of diseases classified elsewhere; E87.2 Acidosis; D69.6 Thrombocytopenia, unspecified; Z99.2 Dependence on renal dialysis; I48.0 Paroxysmal atrial fibrillation; D50.9 Iron deficiency anemia, unspecified; E87.5 Hyperkalemia; E78.5 Hyperlipidemia, unspecified; E87.6 Hypokalemia; Z20.822 Contact with and (suspected) exposure to COVID-19; Z86.718 Personal history of other venous thrombosis and embolism; Z86.711 Personal history of pulmonary embolism; Z85.51 Personal history of malignant neoplasm of bladder; Z85.72 Personal history of non-Hodgkin lymphomas; Z87.891 Personal history of nicotine dependence
CPT/HCPCS: 36415; 36591; 36600; 36901; 71045; 71046; 76937; 77001; 80048; 80053; 80069; 80202; 82803; 82962; 83880; 85025; 85610; 86706; 87070; 87075; 87205; 87340; 87426; 87640; 90937; 93005; 97110; 97162; 97166; 97530; 97535; 97802; 99152; 99153; 99251; 99281; J7030; J7040; J7050; A4216; G0257; G0463; J0610; J1940; J2405

== ENCOUNTER 2022-03-30 06:11 | Day surgery (SDC) | payer MEDICARE, BC, SELFPAY ==
[2022-03-30 07:01] VITALS: BP 111/57; PULSE 79; RESP 16; TEMP 36.1; O2SAT 96; BMI 33.2
--- NOTE | 2022-03-30 07:15 | PCM.HP.BLA ---
History and Physical Allergies enoxaparin [From Lovenox] Allergy (Verified 03/04/22 10:25) Otherheparin Allergy (Verified 03/04/22 10:25) Otheraspirin Adverse Reaction (Verified 03/04/22 10:25) OtherIodinated Contrast Media [CONTRASTS] Adverse Reaction (Verified 03/04/22 10:25) OTHER Medications carvedilol 6.25 mg tablet 6.25 mg PO BID blood pressure 04/24/17 [History Confirmed 03/04/22] amlodipine 5 mg tablet 5 mg PO DAILY BP 11/07/19 [History Confirmed 03/04/22] polyethylene glycol 3350 17 gram/dose oral powder 17 g PO DAILY CONSTIPATION 07/02/20 [History Confirmed 03/04/22] vitamin B complex 1 tab PO DAILY SUPPLEMENT 07/02/20 [History Confirmed 03/04/22] cetirizine 10 mg capsule 10 mg PO DAILY #30 caps 07/04/20 [Rx Confirmed 03/04/22] acetaminophen 325 mg tablet (Tylenol) 650 mg PO Q6H PRN PRN Pain Score 1-10/Temp > 100.7 F #0 tabs 02/20/22 [Rx Confirmed 03/04/22] apixaban 2.5 mg tablet (Eliquis) 2.5 mg PO BID #0 tabs 02/20/22 [Rx Confirmed 03/04/22] ferrous sulfate 325 mg (65 mg iron) tablet 325 mg PO QODAY SUPPLEMENT #30 tabs 02/20/22 [Rx Confirmed 03/04/22] furosemide 40 mg tablet 40 mg PO BIDCM #30 tabs 02/20/22 [Rx Confirmed 03/04/22] melatonin 10 mg sublingual tablet 5 mg PO QHS #0 tabs 02/20/22 [Rx Confirmed 03/04/22] nystatin 100,000 unit/gram topical powder (Nyamyc) 1 applic topical BID #0 grams 02/20/22 [Rx Confirmed 03/04/22] amoxicillin 875 mg-potassium clavulanate 125 mg tablet 875 mg PO BID #1 TAB 02/23/22 [Rx Confirmed 03/04/22] vitamin B complex and vitamin C no.20-folic acid 1 mg capsule (Virt-Caps) 1 cap PO DAILY #0 caps 02/23/22 [Rx Confirmed 03/04/22] PFSH Medical History? Acute kidney injury Anemia Bladder cancer Bladder cancer CHF (congestive heart failure) CKD (chronic kidney disease) stage 5, GFR less than 15 ml/min Elevated troponin ESRD (end stage renal disease) Essential hypertension History of DVT (deep vein thrombosis) History of pulmonary embolism History of solitary pulmonary nodule HIT (heparin-induced thrombocytopenia) HLD (hyperlipidemia) Hyperparathyroidism Iron deficiency anemia Left upper chest discomfort Lower gastrointestinal bleeding Lymphoma Lymphoma Neutropenic fever Pancytopenia Paroxysmal A-fib Preop cardiovascular exam Pulmonary embolism Renal calculus Shortness of breath VTE (venous thromboembolism) Surgical History? AV fistula H/O total cystectomy History of cataract extraction History of corrected cleft lip and palate History of tonsillectomy Family History? Father Cancer ?? ? lungBrother Cancer ?? ? testicular Social History? household members:? none Smoking Status:? Former smoker how long ago did patient quit smoking:? 2009 alcohol intake:? never substance use type:? does not use caffeine:? No HPI HPI HPI: RIA MARIANO, is a 76 M who presents to the office today for follow up, still unable to access fistula. Have not attempted access since fistulagram but nephrology concerned that not matured well enough for successful access. ROS General General: Yes colon cancer; No weight change, appetite, fatigue, breast cancer or weakness HEENT HEENT: Yes eye surgery; No difficulty swallowing, eye injury, swollen glands or hoarseness Endo Endocrine: No thyroid disease, diabetes mellitus, thyroid cancer, Hair loss, heat intolerance or cold intolerance Skin Skin: No rash or changing moles Musc Musculoskeletal: Yes arthritis and rheumatoid arthritis; No back problems, gout or joint pain Cardio Cardiovascular: No murmur, pacemaker, heart disease, atrial fibrillation, high blood pressure, heart attack, heart stent, palpitations, shortness of breat with exertion or chest pain Psych Psychiatric: No depression, anxiety or hearing voices Resp Respiratory: No shortness of breath, No sleep apnea, No cough, No COPD, No asthma, No emphysema and No wheezing Gastro Gastrointestinal: No abdominal pain, No nausea or vomiting, No diarrhea, No constipation, No blood in stool, No acid reflux, No hemorrhoids, No ulcers, No gallbladder problem and No black,tarry stools Jourdan Hematologic: Yes blood thinners, No blood disorders, No bleeding, No anemia and No blood clots Neuro Neurologic: No system reviewed and no additional complaints, except as documented, No as per HPI, No abnormal gait, No abnormal hearing, No abnormal movements, No abnormal speech, No behavioral changes, No burning sensations, No confusion, No convulsions, No disequilibrium, No dizziness, No localized weakness, No frequent falls, No headache(s), No lack of coordination, No loss of vision, No memory loss, No numbness, No other visual disturbances, No radicular pain, No restless legs, No sensory deficit, No syncope, No tingling, No tremor(s), No weakness and No other Exam Const General: cooperative, healthy appearing, comfortable, no acute distress and well developed Nutritional Appearance: well nourished Orientation: alert, awake and oriented x3 HENMT Head: normocephalic and atraumatic Ears: hearing grossly normal bilaterally Nose: external nose normal Eyes General: appearance normal, both eyes and all related structures EOM: EOM intact bilaterally Neck Neck: normal visual inspection, full ROM, no lymphadenopathy and trachea midline Thyroid: thyroid normal Lymphatic: no lymphadenopathy noted Resp Effort & Inspection: normal respiratory effort, able to speak in complete sentences, symmetric chest movement, no audible wheezes, not labored, no stridor and no use of accessory muscles Cardio Rate: regular rate Rhythm: regular rhythm Pulses: brachial pulses present Other: right upper arm AVF- palpable thrill proximally, less robust further up arm Skin General: no rashes or lesions noted and no erythema Wounds: no wounds Neuro Cranial Nerves: CN's II-XI intact bilaterally and EOM intact bilaterally Speech: speech normal Gait: normal gait Motor: strength 5/5 throughout Sensory Exam: no sensory deficits noted Psych Appearance: grossly normal and well kempt Mental Status: mental status grossly normal Mood: congruent mood Speech and Movement: speech and movement normal Thought Content: normal Judgment: judgment good Coding Level of Care Code Off vis,est,level 2 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 ? ? Orders: Orders AV Fistula/Dialysis Graft Scan Today T82.858A - Stenosis of other vascular prosthetic devices, implants and grafts, initial encounter ? Plan -does have a branch proximally that may be impeding full maturation -also with sharp angle near access site, may be creating difficulty -will plan to ligate branch, possible revision of proximal segment
[2022-03-30] MEDS: Cefazolin 2 GM in 0.9% Normal Saline 100 ML IV (07:49)
[2022-03-30] MEDS: Lidocaine 1% (30 ml sdv) 30 ML Vial (08:10)
--- NOTE | 2022-03-30 08:45 | DCINST_ITS ---
Discharge Instructions Procedure Narrative: revision right arm AV fistula Diet Discharge Diet: Renal Diet Activity Lifting Restrictions: no lifting > 20 lbs with right arm for 3 weeks Additional Activity Instructions:: do not submerge incision for 3 weeks Dressing / Incision Call your doctor if your incision/area has: Sudden Increased Bleeding, Increased Pain/ Swelling and Foul Smelling Discharge Call your doctor if you observe: Fever of 101 or Higher Remove Dressing in: 2 days Follow Up Care Test Results: Test results from this visit will be discussed in further detail at your follow- up appointment, if applicable. Discharge Plan Admission Attending Provider: Ed Miramontes Primary Care Provider: Martin Nunez Discharge Orders/Prescriptions Prescriptions: New oxycodone-acetaminophen [Percocet] 2.5-325 mg tablet 1 tab PO Q8H PRN (Reason: pain) 2 Days Qty: 6 0RF Continued amlodipine 5 mg tablet 5 mg PO DAILY carvedilol 6.25 MG tablet 6.25 mg PO BID vitamin B complex 1 EACH tablet 1 tab PO DAILY polyethylene glycol 3350 119 GM powder 17 g PO DAILY PRN (Reason: Constipation) cetirizine 10 MG capsule 10 mg PO DAILY Qty: 30 0RF nystatin [Nyamyc] 100,000 unit/gram Powder 1 applic topical BID Qty: 0 0RF Protocol: *Topical Application Instructions APPLICATION INSTRUCTIONS: Apply to area under pannus. Avoid right groin wound melatonin 10 mg Tablet, Sublingual 5 mg PO QHS Qty: 0 0RF furosemide 40 MG tablet 40 mg PO BIDCM Qty: 30 0RF ferrous sulfate 325 mg (65 mg iron) tablet 325 mg PO QODAY Qty: 30 0RF Virt-Caps 1 mg Capsule 1 cap PO DAILY Qty: 0 0RF amoxicillin-pot clavulanate 875-125 mg Tablet 875 mg PO BID Qty: 1 0RF Rx Instructions: Patient completes amoxicillin clavulanate, last dose tonight 02/23/2022 Eliquis 2.5 mg Tablet 2.5 mg PO BID Qty: 0 0RF Label Comments: LAST DOSE WILL BE 03/27/22 PM Rx Instructions: resume on 03/31, evening dose magnesium hydroxide [Milk of Magnesia] 400 mg/5 mL suspension 30 ml PO Q4H PRN (Reason: Constipation) ascorbic acid (vitamin C) 500 mg tablet 500 mg PO DAILY Theragran-M Premier 50 Plus 400-250-375 mcg tablet 1 tab PO DAILY Referrals / Follow Up: Martin Nunez DO [Primary Care Provider] - Disposition Disposition (needs filled in before D/C Order can be placed): Home, Self Care
[2022-03-30 09:08] VITALS: BP 100/63; BP 111/57; PULSE 87; RESP 16; TEMP 36.3; O2SAT 95
[2022-03-30 09:15] VITALS: BP 111/57; BP 112/67; PULSE 76; RESP 18; O2SAT 96
[2022-03-30 09:30] VITALS: BP 111/57; BP 114/59; PULSE 74; RESP 18; O2SAT 98
[2022-03-30 09:43] VITALS: BP 111/57; BP 117/58; PULSE 75; RESP 18; TEMP 36.2; O2SAT 96
[2022-03-30 10:51] VITALS: BP 111/57; BP 119/48; PULSE 76; RESP 20; TEMP 36.4; O2SAT 98
--- NOTE | 2022-03-31 15:28 | PCM.OPRPT ---
Report of Operation Date of Procedure: 03/30/22 Pre-Operative Diagnosis: Right fistula dysfunction, non-matured Post-Operative Diagnosis: Same Surgery/Procedure Performed:: Revision right arm fistula Surgeon: Ed Miramontes Type of Anesthesia: General Estimated Blood Loss (mL): 5 Description of Procedure: HPI: Patient is a 76-year-old male with previous right stage II basilic fistula created several months prior but unable to cannulate. He did fistulogram which revealed previous large branch proximally that filled the deep system and very tortuous proximal fistula. He is taken now for branch ligation revision. Description of procedure: Upon obtaining informed consent and verification of correct patient procedure site patient was taken the operating room where he was placed under general anesthesia. He was then positioned prepped and draped in usual sterile fashion a timeout was performed. Ultrasound was used to determine the fistula position and branch location and skin incision was made along the culture segment of the fistula. Bovie cautery then used to dissect out the subcutaneous tissue and self-retaining retractors were put in position. Sharp dissection was then used to dissect free the proximal fistula working towards the arterial anastomosis. Identified a very large branch which was ligated with silk ties and mobilized approximately 5 cm of tortuous fistula. Fistula was then straightened to length and placed within the subcutaneous plane providing significant length of usable fistula segment. The deep tissues were then closed with interrupted 2-0 Vicryl to maintain fistula trajectory. Incision was then closed with 3-0 Vicryl for Monocryl and Dermabond for the skin. Patient was awakened anesthesia taken recovery room anticipated discharge to home.
== END 2022-03-30 10:59 | disposition home or self-care (01) ==
LOC: SDC 06:13 → AC 06:15
PROVIDERS: PCP Student in an Organized Health Care Education/Training Program; Referring Provider Surgery Trauma Surgery; Visit Provider Surgery Trauma Surgery
PROC: (CPT 37607; principal; 2022-03-30 07:15)
DX: T82.858A Stenosis of other vascular prosthetic devices, implants and grafts, initial encounter (principal); C67.9 Malignant neoplasm of bladder, unspecified; N18.5 Chronic kidney disease, stage 5; I12.0 Hypertensive chronic kidney disease with stage 5 chronic kidney disease or end stage renal disease; I48.0 Paroxysmal atrial fibrillation; Z87.891 Personal history of nicotine dependence; Y84.9 Medical procedure, unspecified as the cause of abnormal reaction of the patient, or of later complication, without mention of misadventure at the time of the procedure; Z79.899 Other long term (current) drug therapy; Z79.01 Long term (current) use of anticoagulants; E78.5 Hyperlipidemia, unspecified; Z86.711 Personal history of pulmonary embolism; D75.829 Heparin-induced thrombocytopenia, unspecified
CPT/HCPCS: 37607; 01844; 86850; 86900; 86901; J7040; J0583

== ENCOUNTER 2022-05-01 16:10 | Inpatient (IN) | payer MEDICARE, BC, SELFPAY ==
[2022-05-01] VITALS (14 sets, daily range): BP systolic 99–115; BP diastolic 47–78; PULSE 103–125; RESP 16–25; TEMP 36.4–36.8; O2SAT 87–99; BMI 34.2; BMI 32.1
--- NOTE | 2022-05-01 16:26 | EKG12_ITS ---
Test Reason : SOB Blood Pressure : / mmHG Vent. Rate : 101 BPM Atrial Rate : 000 BPM P-R Int : 000 ms QRS Dur : 172 ms QT Int : 388 ms P-R-T Axes : 000 -82 061 degrees QTc Int : 503 ms Atrial fibrillation with rapid ventricular response Left axis deviation Right bundle branch block Abnormal ECG Confirmed by SHAYNA BYERS, JEANETTE ([id number]), editorial assistant PASCUAL VEGA ([id number]) on 05/04/2022 11:10:36 AM Referred By: PL Confirmed By:JEANETTE CORRAL MD
--- NOTE | 2022-05-01 16:28 | EX.ED.DYSGE1 ---
HPI History of Present Illness Chief Complaint: Alt LOC Informant: patient Narrative Narrative: And presents with dyspnea and possible transient confusion after dialysis. Patient states that he did have some nausea and mild vomiting yesterday. But no trouble breathing. He was able to eat breakfast this morning and the nausea vomiting seem to be gone. Today he had a full course of dialysis for 4 hours. He thinks they got him down to his dry weight. I do not have any data that defines this. After dialysis, he seemed to be mildly confused. His saturations were checked and found to be 87%. He was placed on oxygen and was sent in here. With oxygen his confusion resolved. Patient does admit to slight cough and bringing up a small amount of clear sputum. No hemoptysis. No known fevers. He denies any chest pain pressure or tightness. He also denies history of COPD. He also does not know if he is ever had CHF. He is not on oxygen routinely. However, he does have a history of prior smoking. [facility] Medical History Acute kidney injury Anemia Bladder cancer Bladder cancer CHF (congestive heart failure) CKD (chronic kidney disease) stage 5, GFR less than 15 ml/min Elevated troponin ESRD (end stage renal disease) Essential hypertension History of DVT (deep vein thrombosis) History of pulmonary embolism History of solitary pulmonary nodule HIT (heparin-induced thrombocytopenia) HLD (hyperlipidemia) Hyperparathyroidism Iron deficiency anemia Left upper chest discomfort Lower gastrointestinal bleeding Lymphoma Lymphoma Neutropenic fever Pancytopenia Paroxysmal A-fib Preop cardiovascular exam Pulmonary embolism Renal calculus Shortness of breath VTE (venous thromboembolism) Home Medications carvedilol 6.25 mg tablet 6.25 mg PO BID blood pressure 04/24/17 [History Last Taken 02/15/22] polyethylene glycol 3350 17 gram/dose oral powder 17 g PO DAILY PRN Constipation 07/02/20 [History Last Taken 02/14/22] vitamin B complex 1 tab PO DAILY SUPPLEMENT 07/02/20 [History Last Taken 02/15/22] cetirizine 10 mg capsule 10 mg PO DAILY #30 caps 07/04/20 [Rx Last Taken Unknown] ferrous sulfate 325 mg (65 mg iron) tablet 325 mg PO QODAY SUPPLEMENT #30 tabs 02/20/22 [Rx Last Taken 02/15/22] vitamin B complex and vitamin C no.20-folic acid 1 mg capsule (Virt-Caps) 1 cap PO DAILY #0 caps 02/23/22 [Rx Last Taken Unknown] ascorbic acid (vitamin C) 500 mg tablet 500 mg PO DAILY 03/12/22 [History Last Taken Unknown] magnesium hydroxide 400 mg/5 mL oral suspension (Milk of Magnesia) 30 ml PO Q4H PRN Constipation 03/12/22 [History Last Taken Unknown] apixaban 2.5 mg tablet (Eliquis) 2.5 mg PO BID #0 tabs 03/30/22 [Rx Last Taken Unknown] calcitriol 0.25 mcg capsule 0.25 mcg PO TUTHSA 05/01/22 [History Last Taken Unknown] Allergy/AdvReac Type Severity Reaction Status Date / Time enoxaparin [From Lovenox] Allergy Other Verified 05/01/22 16:11 heparin Allergy Other Verified 05/01/22 16:11 aspirin AdvReac Other Verified 05/01/22 16:11 Iodinated Contrast Media AdvReac OTHER Verified 05/01/22 16:11 [CONTRASTS] Family History Father Cancer lung Arrhythmia Brother Cancer Surgical History AV fistula H/O total cystectomy History of cataract extraction History of corrected cleft lip and palate History of tonsillectomy Social History household members: none Smoking Status: Former smoker how long ago did patient quit smokin alcohol intake: never substance use type: does not use caffeine: No ROS ROS ED Constitutional Constitutional ED: Denies chills, fever(s) or sweats Eyes Eyes: Denies change in vision ENT ENT ED: Denies rhinorrhea or sore throat Cardiovascular Cardiovascular: Denies chest pain, palpitations or racing heartbeat Respiratory/Chest Respiratory/Chest: Reports cough, dyspnea and sputum Gastrointestinal Gastrointestinal: Reports nausea and vomiting; Denies abdominal pain or diarrhea Genitourinary Genitourinary ED: Denies dysuria Musculoskeletal Musculoskeletal: Denies arthralgias or myalgias Integumentary Denies rash Neurologic Neurologic: Denies headache(s) Endocrine Endocrinology: Denies polyuria Hematologic/Lymphatic Hematologic/Lymphatic: Reports easy bleeding; Denies easy bruising Allergic/Immunologic Allergic/Immunologic ED: Denies urticaria EXAM Physical Exam Const Vital Signs: 05/01/22 16:11 05/01/22 16:11 05/01/22 16:14 Temperature 98.1 F 98.1 F Temperature Source Temporal Temporal Pulse Rate 107 H 107 H Respiratory Rate 20 H 20 H Respiratory Pattern Blood Pressure 113/65 113/65 Blood Pressure Mean 81 81 Pulse Ox 95 87 87 Oxygen Delivery Method Room Air Room Air Room Air Oxygen Flow Rate (L/min) 05/01/22 16:30 05/01/22 17:11 05/01/22 17:14 Temperature 98.1 F Temperature Source Temporal Pulse Rate 110 H 107 H 107 H Respiratory Rate 25 H 22 H 22 H Respiratory Pattern Hyperpnea Blood Pressure 115/78 115/58 L Blood Pressure Mean 90 77 Pulse Ox 90 90 Oxygen Delivery Method Nasal Cannula Nasal Cannula Oxygen Flow Rate (L/min) 3 3 05/01/22 17:24 05/01/22 18:31 Temperature 98.2 F Temperature Source Temporal Pulse Rate 105 H Respiratory Rate 22 H Respiratory Pattern Blood Pressure 105/55 L Blood Pressure Mean 71 Pulse Ox 94 94 Oxygen Delivery Method Nasal Cannula Nasal Cannula Oxygen Flow Rate (L/min) 3 3 Positive well nourished and well developed Constitutional Narrative: Patient is working to breathe. When I went in the room oxygen had been removed. He has not 95% on room air. He is about 86 or 87% on room air. He was placed on 3 L and is up to about 93%. This did help his breathing. General Appearance ED: well developed; Negative for cyanotic, diaphoretic or pallor HEENT Reports moist mucous membranes Eyes General Eye ED: Negative for scleral icterus Neck supple and no JVD Neck Narrative: No notable JVD. Chest Wall Chest Narrative: Increased work of breathing. Vas-Cath present left chest. Med port in the lower right. Resp No normal respiratory effort Resp Narrative: Diffusely decreased breath sounds. He is very quiet at the bases. I cannot tell if he actually has rales. He does appear to have a slight wheeze. But overall his breath sounds are just quite decreased. Cardio no murmurs Rate: tachycardic Rhythm: abnormal rhythm GI normal to inspection, nondistended, normoactive bowel sounds and non-tender Back/Spine no CVA tenderness Extremity Extremity Narrative: Patient has a Vas-Cath in his left chest that looks clean and intact. He also has a fistula in the right upper arm that has a good thrill. General Extremety ED: Negative for tenderness Neuro oriented x3 Neuro Narrative: Patient is alert and oriented. However, he is not the best informant for details of medical history. Psych mental status grossly normal Skin no rashes or lesions noted Skin Narrative: No diaphoresis. General Skin Exam: Negative for jaundice or pallor MDM MDM MDM Narrative Medical decision making narrative: Patient is rechecked. He does feel that the breathing treatment helped him. He is moving better air. He has a history of smoking but quit 10 or so years ago. He has never been diagnosed or treated as COPD or asthma. He just finished 4 hours of dialysis. There is no indication of fluid overload. X-ray does not show any acute process. Influenza and COVID are negative. I have sent off a respiratory panel at this point. White count is normal. Hemoglobin is minimally low but not the source of his difficulties. Electrolytes show elevated creatinine consistent with his illness. Lactate is elevated to 6 likely from hypoxia. We tried to turn down his oxygen. At 2 L he still dropped below 90%. On 3 L he is at about 93%. Patient will need to come in the hospital. I am awaiting a bit of further blood work. We will also check the respiratory panel. I also talked to family members. He evidently felt a little weak after dialysis on Tuesday as well as on but not as bad. Today was much worse. They admit he seems to be weaker over the last few days to a week. He has been coughing but they have not noticed a marked change from baseline. Patient's troponin and BNP are elevated. However, I do not think clinically this is likely fluid overload or congestive heart failure. He may have elevated troponin due to overall hypoxia as well as his renal dysfunction. But with his dyspnea, slight cough, hypoxia I do think he needs to come in. He is on Eliquis and has been taking it twice a day as prescribed. I do not think this represents a recurrent PE. I have hospitalist on page. Patient has a new family member here. This family member does feel that he is still a little bit confused. Patient was not the best informant for details but I did not know if this was his baseline or not. The other family members seem to think he just seemed tired and worn out. With this confusion we have added a CT of his head as he is on anticoagulation. The CT showed chronic but no acute changes. Lab Data Attestation: I reviewed the patient's lab results. Labs: Laboratory Results - last 24 hr 05/01/22 05/01/22 05/01/22 16:50 16:50 16:50 WBC Cancelled Corrected WBC Cancelled RBC Cancelled Hgb Cancelled Hct Cancelled MCV Cancelled MCH Cancelled MCHC Cancelled RDW Std Deviation Cancelled RDW Coeff of Lencho Cancelled Plt Count Cancelled MPV Cancelled Immature Gran % (Auto) Cancelled Neut % (Auto) Cancelled Lymph % (Auto) Cancelled [place] % (Auto) Cancelled Eos % (Auto) Cancelled Baso % (Auto) Cancelled Absolute Neuts (auto) Cancelled Absolute Lymphs (auto) Cancelled Total Counted Cancelled Neutrophils % (Manual) Cancelled Band Neutrophils % Cancelled Lymphocytes % (Manual) Cancelled Monocytes % (Manual) Cancelled Eosinophils % (Manual) Cancelled Basophils % (Manual) Cancelled Metamyelocytes % Cancelled Myelocytes % Cancelled Promyelocytes % Cancelled Blast Cells % Cancelled Plasma Cell % (Manual) Cancelled Other Cells % Cancelled Nucleated RBC % Cancelled Nucleated RBCs/100 WBC Cancelled Differential Comment Cancelled Diff Path Review Cancelled Hypersegmented Neuts Cancelled Atypical Lymphocytes Cancelled Reactive Lymphocytes Cancelled Smudge Cells Cancelled Toxic Granulation Cancelled Toxic Vacuolation Cancelled Dohle Bodies Cancelled Toro Rods Cancelled Platelet Estimate Cancelled Plt Morphology Comment Cancelled RBC Morphology Cancelled Polychromasia Cancelled Hypochromasia Cancelled Poikilocytosis Cancelled Basophilic Stippling Cancelled Anisocytosis Cancelled Microcytosis Cancelled Macrocytosis Cancelled Spherocytes Cancelled Sickle Cells Cancelled Target Cells Cancelled Tear Drop Cells Cancelled Ovalocytes Cancelled Stomatocytes Cancelled [place] Bodies Cancelled Abdoulaye Cells Cancelled Bite Cells Cancelled Crenated Cell Cancelled Acanthocytes (Spur) Cancelled Rouleaux Cancelled Schistocytes Cancelled Sodium Cancelled Potassium Cancelled Chloride Cancelled Carbon Dioxide Cancelled Anion Gap Cancelled BUN Cancelled Creatinine Cancelled Estim Creat Clear Calc Cancelled Est GFR (MDRD) Af Amer Cancelled Est GFR (MDRD) Non-Af Cancelled BUN/Creatinine Ratio Cancelled Glucose Cancelled Lactic Acid Calcium Cancelled Troponin I High Sens Cancelled B-Natriuretic Peptide Cancelled 05/01/22 05/01/22 05/01/22 16:50 17:15 17:15 WBC 4.8 Corrected WBC RBC 3.54 L Hgb 11.2 L Hct 35.3 L MCV 99.7 H MCH 31.6 MCHC 31.7 L RDW Std Deviation 49.9 H RDW Coeff of Lencho 13.9 Plt Count 113 L MPV 10.3 Immature Gran % (Auto) 0.200 Neut % (Auto) 95.9 H Lymph % (Auto) 2.7 L [place] % (Auto) 0.6 Eos % (Auto) 0.4 Baso % (Auto) 0.2 Absolute Neuts (auto) 4.6 Absolute Lymphs (auto) 0.13 L Total Counted Neutrophils % (Manual) Band Neutrophils % Lymphocytes % (Manual) Monocytes % (Manual) Eosinophils % (Manual) Basophils % (Manual) Metamyelocytes % Myelocytes % Promyelocytes % Blast Cells % Plasma Cell % (Manual) Other Cells % Nucleated RBC % 0 Nucleated RBCs/100 WBC Differential Comment SEE COMMENT Diff Path Review Hypersegmented Neuts Atypical Lymphocytes Reactive Lymphocytes Smudge Cells Toxic Granulation Toxic Vacuolation Dohle Bodies Toro Rods Platelet Estimate SLT DEC Plt Morphology Comment RBC Morphology N CHROM Polychromasia Hypochromasia Poikilocytosis Basophilic Stippling Anisocytosis RARE Microcytosis Macrocytosis RARE Spherocytes Sickle Cells Target Cells Tear Drop Cells Ovalocytes Stomatocytes [place] Bodies [place] Cells Bite Cells Crenated Cell Acanthocytes (Spur) Rouleaux Schistocytes Sodium 141 Potassium 3.7 Chloride 99 Carbon Dioxide 32.0 Anion Gap 10 BUN 34 H Creatinine 2.69 H Estim Creat Clear Calc 23.73 Est GFR (MDRD) Af Amer 30 L Est GFR (MDRD) Non-Af 25 L BUN/Creatinine Ratio 12.6 Glucose 127 H Lactic Acid 2.6 H* Calcium 8.9 Troponin I High Sens B-Natriuretic Peptide 05/01/22 05/01/22 17:15 17:15 WBC Corrected WBC RBC Hgb Hct MCV MCH MCHC RDW Std Deviation RDW Coeff of Lencho Plt Count MPV Immature Gran % (Auto) Neut % (Auto) Lymph % (Auto) [place] % (Auto) Eos % (Auto) Baso % (Auto) Absolute Neuts (auto) Absolute Lymphs (auto) Total Counted Neutrophils % (Manual) Band Neutrophils % Lymphocytes % (Manual) Monocytes % (Manual) Eosinophils % (Manual) Basophils % (Manual) Metamyelocytes % Myelocytes % Promyelocytes % Blast Cells % Plasma Cell % (Manual) Other Cells % Nucleated RBC % Nucleated RBCs/100 WBC Differential Comment Diff Path Review Hypersegmented Neuts Atypical Lymphocytes Reactive Lymphocytes Smudge Cells Toxic Granulation Toxic Vacuolation Dohle Bodies Toro Rods Platelet Estimate Plt Morphology Comment RBC Morphology Polychromasia Hypochromasia Poikilocytosis Basophilic Stippling Anisocytosis Microcytosis Macrocytosis Spherocytes Sickle Cells Target Cells Tear Drop Cells Ovalocytes Stomatocytes [place] Bodies [place] Cells Bite Cells Crenated Cell Acanthocytes (Spur) Rouleaux Schistocytes Sodium Potassium Chloride Carbon Dioxide Anion Gap BUN Creatinine Estim Creat Clear Calc Est GFR (MDRD) Af Amer Est GFR (MDRD) Non-Af BUN/Creatinine Ratio Glucose Lactic Acid Calcium Troponin I High Sens 511 H* B-Natriuretic Peptide 746.8 H Radiography Diagnostic Testing: Clinical Impression(s) from Imaging Studies Chest X-Ray 05/01/22 16:45 IMPRESSION: No acute findings in the chest. There is been no change from reference exam. Support structures in stable position. Electronically Signed: Franco Hu MD at 17:18 EST , Brain CT 05/01/22 18:42 IMPRESSION: 1. No acute intracranial abnormality. 2. Underlying senescent change with small vessel ischemia. Electronically Signed: Franco Hu MD at 19:59 EST , Single view chest x-ray looked at by me and read by radiology shows no marked acute abnormality. Vas-Cath and med port are noted on the left and right side. EKG Initial EKG: Comments: EKG done for dyspnea and atrial fibrillation read by me shows atrial fibrillation with a rate of 101. There is significant baseline variation. However, no sign of acute ST elevation. There is a right bundle branch block. QRS duration and QTc are both long. This EKG does have similar shape complexes to a prior from 03/11/2022 Discharge Plan Dx/Rx/DC Orders Clinical Impression: Hypoxia, Non-ST elevation UT (NSTEMI), Generalized weakness, Confusion Disposition Disposition: Acute Care Hospital [facility] Discharge Date/Time: 05/01/22 20:28
[2022-05-01] MEDS: Ipratropium/Albuterol Sulfate 3 ML AMPUL.NEB INHALATION (16:30)
--- NOTE | 2022-05-01 16:45 | RAD_ITS ---
EXAM: XR CHEST, 1 VIEW CLINICAL INDICATION: SOB TECHNIQUE: Frontal view of the chest. This report was created using [email or web address] report generation technology. COMPARISON: 02/22/2022 FINDINGS: LUNGS AND PLEURAL SPACES: Unremarkable. No consolidation or edema. No pneumothorax. No effusion. HEART: Unremarkable. Cardiac silhouette not enlarged. MEDIASTINUM: Central airways and mediastinal contour are unremarkable. BONES/JOINTS: Unremarkable. SOFT TISSUES: Unremarkable. TUBES, LINES AND DEVICES: Left central venous catheter and right-sided Port-A-Cath are in stable position. RAD/Chest 1 View (Portable) IMPRESSION: No acute findings in the chest. There is been no change from reference exam. Support structures in stable position. Electronically Signed: Franco Hu MD at 17:18 EST ,
--- NOTE | 2022-05-01 17:07 | NURSING ---
PER LAB, NEED REDRAW ON GREEN AND PURPLE
[2022-05-01 17:29] LABS: Lactic Acid 2.6 mmol/L (0.4-1.9)
[2022-05-01 17:43] LABS: Absolute Lymphocyte Count 0.13 X10^3/uL (0.83-4.51); Absolute Neutrophil Count 4.6 X10^3/uL (2.0-7.7); Basophil# 0.01 X10^3/uL; Basophil% 0.2 % (0-1); Differential Indicated SCAN CRITERIA MET; Eosinophil# 0.02 X10^3/uL; Eosinophils% 0.4 % (0-5); Hematocrit 35.3 % (40-54); Hemoglobin 11.2 g/dL (13.0-16.5); Lymphocyte # 0.13 X10^3/ul (0.83-4.51); Lymphocyte % 2.7 % (19-41); Mean Corp Hgb Conc 31.7 g/dL (32-36); Mean Corpuscular Hgb 31.6 pg (27.0-32.0); Mean Corpuscular Volume 99.7 fL (80-94); Mean Platelet Vol. 10.3 fl (6.2-12.0); Monocyte# 0.03 X10^3/uL; Monocyte% 0.6 % (0-10); NRBC Flagged by Analyzer 0 % (0-5); Neutrophil # 4.59 X10^3/uL (2.7-7.7); Neutrophil % 95.9 % (47-70); POSITIVE DIFFERENTIAL YES; Platelet Count 113 K/mm3 (150-450); RBC Distribution Width CV 13.9 % (11.6-14.6); RBC Distribution Width SD 49.9 fl (35.1-43.9); Red Blood Count 3.54 M/mm3 (4.6-6.2); White Blood Count 4.8 K/mm3 (4.4-11.0)
[2022-05-01 18:01] LABS: Anion Gap 10 (5-15); BUN 34 mg/dL (7-18); BUN/Creat Ratio 12.6 RATIO (10-20); Calcium,Total 8.9 mg/dL (8.5-10.1); Chloride 99 mmol/L (98-107); Creatinine, Serum 2.69 mg/dL (0.70-1.30); EST Glomerular Filtration Rate 25 mL/min (>60); Est Glom Filt Rate - Afr Amer 30 mL/min (>60); Estimated Creatinine Clearance 23.73 ml/min; Glucose 127 mg/dL (74-106); Potassium 3.7 mmol/L (3.5-5.1); Sodium Level 141 mmol/L (136-145)
[2022-05-01 18:11] LABS: Anisocytosis RARE; Macrocytosis RARE; Platelet Estimate SLT DEC (ADEQ); Red Cell Morphology N CHROM NORMAL (NORM C&C)
[2022-05-01 18:19] LABS: BNP,B-Type NATRIURETIC PEPTIDE 746.8 pg/mL (0-100)
[2022-05-01 18:20] LABS: Troponin-I HS 511 pg/mL (3.0-78.0)
--- NOTE | 2022-05-01 18:29 | NURSING ---
DR SOBEIDA CARPENTER
--- NOTE | 2022-05-01 18:42 | CT_ITS ---
EXAM: CT HEAD WITHOUT INTRAVENOUS CONTRAST CLINICAL INDICATION: confusion TECHNIQUE: Multiple axial images were obtained of the head without intravenous contrast. This CT exam was performed using one or more of the following dose reduction techniques: automated exposure control, adjustment of the mA and/or kV according to patient size, and/or use of iterative reconstruction technique. This report was created using [employer] report generation technology. COMPARISON: None. FINDINGS: BRAIN AND EXTRA-AXIAL SPACES: There is enlargement of the ventricular system and cortical sulci. There is hypoattenuation in the periventricular white matter. There is remote lacunar infarct in the right basal ganglia. No intra- or extra-axial hemorrhage. No intracranial mass or mass effect. Posterior fossa structures are unremarkable. Basal cisterns are patent. BONES/JOINTS: Unremarkable. No discrete lytic or blastic abnormalities. SINUSES: Unremarkable as visualized. Clear. MASTOID AIR CELLS: Unremarkable. Clear. ORBITS: Visualized globes, extraocular muscles, optic nerves and retrobulbar fat appear unremarkable. CT/Brain/Head without Contrast IMPRESSION: 1. No acute intracranial abnormality. 2. Underlying senescent change with small vessel ischemia. Electronically Signed: Franco Hu MD at 19:59 EST ,
--- NOTE | 2022-05-01 18:47 | ED.RN ---
Sepsis alert triggered, Dr. Grewal notified. Baseline cre is greater than 2. Pt not to receive fluids at this time.
--- NOTE | 2022-05-01 19:01 | PCM.HP.STD ---
HPI - General General Date of Admission: 05/01/22 Date of Service: 05/01/22 Chief Complaint: Shortness of breath and confusion HPI Narrative RIA MARIANO, is a 76 M who presents with hypoxia and confusion. It was noted earlier today that the patient was more confused. Is noted to be hypoxic with a pulse ox in the 80s after dialysis today. Patient was sent into the emergency room and underwent a work-up that showed lactic acid of 2.6, troponin of 511, BNP of 746. Patient was checked for COVID-19 and influenza were negative. Respiratory panel has been ordered and results are still pending. Patient still is confused and his speech is slurred. For member at bedside notes that the patient has not been feeling well during this week. Additionally this week, they started using his right upper extremity fistula without any obvious issue. Still does have his catheter in his left upper chest. Patient has been just feeling rundown this week but not notably short of breath. In the emergency room, patient received albuterol. With his elevated troponin, patient denies any chest pain nor palpitations. [facility] Medical History Acute kidney injury Anemia Bladder cancer Bladder cancer CHF (congestive heart failure) CKD (chronic kidney disease) stage 5, GFR less than 15 ml/min Elevated troponin ESRD (end stage renal disease) Essential hypertension History of DVT (deep vein thrombosis) History of pulmonary embolism History of solitary pulmonary nodule HIT (heparin-induced thrombocytopenia) HLD (hyperlipidemia) Hyperparathyroidism Iron deficiency anemia Left upper chest discomfort Lower gastrointestinal bleeding Lymphoma Lymphoma Neutropenic fever Pancytopenia Paroxysmal A-fib Preop cardiovascular exam Pulmonary embolism Renal calculus Shortness of breath VTE (venous thromboembolism) Home Medications carvedilol 6.25 mg tablet 6.25 mg PO BID blood pressure 04/24/17 [History Last Taken 02/15/22] polyethylene glycol 3350 17 gram/dose oral powder 17 g PO DAILY PRN Constipation 07/02/20 [History Last Taken 02/14/22] vitamin B complex 1 tab PO DAILY SUPPLEMENT 07/02/20 [History Last Taken 02/15/22] cetirizine 10 mg capsule 10 mg PO DAILY #30 caps 07/04/20 [Rx Last Taken Unknown] ferrous sulfate 325 mg (65 mg iron) tablet 325 mg PO QODAY SUPPLEMENT #30 tabs 02/20/22 [Rx Last Taken 02/15/22] vitamin B complex and vitamin C no.20-folic acid 1 mg capsule (Virt-Caps) 1 cap PO DAILY #0 caps 02/23/22 [Rx Last Taken Unknown] ascorbic acid (vitamin C) 500 mg tablet 500 mg PO DAILY 03/12/22 [History Last Taken Unknown] magnesium hydroxide 400 mg/5 mL oral suspension (Milk of Magnesia) 30 ml PO Q4H PRN Constipation 03/12/22 [History Last Taken Unknown] apixaban 2.5 mg tablet (Eliquis) 2.5 mg PO BID #0 tabs 03/30/22 [Rx Last Taken Unknown] calcitriol 0.25 mcg capsule 0.25 mcg PO TUTHSA 05/01/22 [History Last Taken Unknown] Allergy/AdvReac Type Severity Reaction Status Date / Time enoxaparin [From Lovenox] Allergy Other Verified 05/01/22 16:11 heparin Allergy Other Verified 05/01/22 16:11 aspirin AdvReac Other Verified 05/01/22 16:11 Iodinated Contrast Media AdvReac OTHER Verified 05/01/22 16:11 [CONTRASTS] Family History Father Cancer lung Arrhythmia Brother Cancer Surgical History AV fistula H/O total cystectomy History of cataract extraction History of corrected cleft lip and palate History of tonsillectomy Social History household members: none Smoking Status: Former smoker how long ago did patient quit smokin alcohol intake: never substance use type: does not use caffeine: No ROS ROS Narrative Cough. All review of systems were negative except as mentioned above in the history of present illness and the other review of systems. Vital Signs Vital Signs Vital Signs: 05/01/22 16:11 05/01/22 16:11 05/01/22 16:14 Temperature 36.7 C 36.7 C Temperature Source Temporal Temporal Pulse Rate 107 H 107 H Respiratory Rate 20 H 20 H Respiratory Pattern Blood Pressure 113/65 113/65 Blood Pressure Mean 81 81 Pulse Ox 95 87 87 Oxygen Delivery Method Room Air Room Air Room Air Oxygen Flow Rate (L/min) 05/01/22 16:30 05/01/22 17:11 05/01/22 17:14 Temperature 36.7 C Temperature Source Temporal Pulse Rate 110 H 107 H 107 H Respiratory Rate 25 H 22 H 22 H Respiratory Pattern Hyperpnea Blood Pressure 115/78 115/58 L Blood Pressure Mean 90 77 Pulse Ox 90 90 Oxygen Delivery Method Nasal Cannula Nasal Cannula Oxygen Flow Rate (L/min) 3 3 05/01/22 17:24 05/01/22 18:31 Temperature 36.8 C Temperature Source Temporal Pulse Rate 105 H Respiratory Rate 22 H Respiratory Pattern Blood Pressure 105/55 L Blood Pressure Mean 71 Pulse Ox 94 94 Oxygen Delivery Method Nasal Cannula Nasal Cannula Oxygen Flow Rate (L/min) 3 3 Weight Weight: 105.2 kg Body Mass Index (BMI) 34.2 Physical Exam Const alert, oriented x3 and no apparent distress General Appearance: cooperative HEENT normocephalic, head/scalp atraumatic and hearing grossly normal bilaterally Eyes PERRL and EOMs intact bilaterally Eyes Narrative: No icterus Neck no lymphadenopathy Resp normal respiratory effort, no retractions, no use of accessory muscles and clear to auscultation bilaterally Cardio Cardio Narrative: Irregularly irregular. GI normal to inspection, nondistended, normoactive bowel sounds, soft to palpation, non-tender, non-distended and hepatosplenomegaly Extremity normal to inspection and no clubbing, cyanosis or edema Neuro oriented x3, CN's II-XII intact bilaterally and moves all extremities Neuro Narrative: Muscle strength 5-5 in upper extremities and 4 out of 5 in the lower extremities. Patient was unsteady with [id number] slight ataxia of both upper extremities but his right being worse than his left. Coordination / Balance: Negative for [id number] test normal Psych affect normal Results Lab / Micro Data Attestation: I reviewed the patient's lab results. Result Diagrams: 05/01/22 17:15 05/01/22 17:15 Labs: Laboratory Results - last 24 hr 05/01/22 16:50: WBC Cancelled, Corrected WBC Cancelled, RBC Cancelled, Hgb Cancelled, Hct Cancelled, MCV Cancelled, MCH Cancelled, MCHC Cancelled, RDW Std Deviation Cancelled, RDW Coeff of Lencho Cancelled, Plt Count Cancelled, MPV Cancelled, Immature Gran % (Auto) Cancelled, Neut % (Auto) Cancelled, Lymph % (Auto) Cancelled, [place] % (Auto) Cancelled, Eos % (Auto) Cancelled, Baso % (Auto) Cancelled, Absolute Neuts (auto) Cancelled, Absolute Lymphs (auto) Cancelled, Total Counted Cancelled, Neutrophils % (Manual) Cancelled, Band Neutrophils % Cancelled, Lymphocytes % (Manual) Cancelled, Monocytes % (Manual) Cancelled, Eosinophils % (Manual) Cancelled, Basophils % (Manual) Cancelled, Metamyelocytes % Cancelled, Myelocytes % Cancelled, Promyelocytes % Cancelled, Blast Cells % Cancelled, Plasma Cell % (Manual) Cancelled, Other Cells % Cancelled, Nucleated RBC % Cancelled, Nucleated RBCs/100 WBC Cancelled, Differential Comment Cancelled, Diff Path Review Cancelled, Hypersegmented Neuts Cancelled, Atypical Lymphocytes Cancelled, Reactive Lymphocytes Cancelled, Smudge Cells Cancelled, Toxic Granulation Cancelled, Toxic Vacuolation Cancelled, Dohle Bodies Cancelled, Toro Rods Cancelled, Platelet Estimate Cancelled, Plt Morphology Comment Cancelled, RBC Morphology Cancelled, Polychromasia Cancelled, Hypochromasia Cancelled, Poikilocytosis Cancelled, Basophilic Stippling Cancelled, Anisocytosis Cancelled, Microcytosis Cancelled, Macrocytosis Cancelled, Spherocytes Cancelled, Sickle Cells Cancelled, Target Cells Cancelled, Tear Drop Cells Cancelled, Ovalocytes Cancelled, Stomatocytes Cancelled, [place] Bodies Cancelled, Abdoulaye Cells Cancelled, Bite Cells Cancelled, Crenated Cell Cancelled, Acanthocytes (Spur) Cancelled, Rouleaux Cancelled, Schistocytes Cancelled 05/01/22 16:50: Sodium Cancelled, Potassium Cancelled, Chloride Cancelled, Carbon Dioxide Cancelled, Anion Gap Cancelled, BUN Cancelled, Creatinine Cancelled, Estim Creat Clear Calc Cancelled, Est GFR (MDRD) Af Amer Cancelled, Est GFR (MDRD) Non-Af Cancelled, BUN/Creatinine Ratio Cancelled, Glucose Cancelled, Calcium Cancelled, Troponin I High Sens Cancelled 05/01/22 16:50: B-Natriuretic Peptide Cancelled 05/01/22 16:50: Lactic Acid 2.6 H* 05/01/22 17:15: Sodium 141, Potassium 3.7, Chloride 99, Carbon Dioxide 32.0, Anion Gap 10, BUN 34 H, Creatinine 2.69 H, Estim Creat Clear Calc 23.73, Est GFR (MDRD) Af Amer 30 L, Est GFR (MDRD) Non-Af 25 L, BUN/Creatinine Ratio 12.6, Glucose 127 H, Calcium 8.9 05/01/22 17:15: WBC 4.8, RBC 3.54 L, Hgb 11.2 L, Hct 35.3 L, MCV 99.7 H, MCH 31.6, MCHC 31.7 L, RDW Std Deviation 49.9 H, RDW Coeff of Lencho 13.9, Plt Count 113 L, MPV 10.3, Immature Gran % (Auto) 0.200, Neut % (Auto) 95.9 H, Lymph % (Auto) 2.7 L, [place] % (Auto) 0.6, Eos % (Auto) 0.4, Baso % (Auto) 0.2, Absolute Neuts (auto) 4.6, Absolute Lymphs (auto) 0.13 L, Nucleated RBC % 0, Differential Comment SEE COMMENT, Platelet Estimate SLT DEC, RBC Morphology N CHROM, Anisocytosis RARE, Macrocytosis RARE 05/01/22 17:15: Troponin I High Sens 511 H* 05/01/22 17:15: B-Natriuretic Peptide 746.8 H Micro: Microbiology 05/01/22 16:30 Nasal Secretion SARS-CoV-2 & FLU Antigen (Rapid) - Final EKG Initial EKG: Attestation: I personally reviewed and interpreted this EKG as follows: EKG Rhythm Intrepretation: Atrial Fibrillation (Right bundle branch block. Unchanged from February 22, 2022.) Radiology Impression Chest X-Ray 05/01/22 16:45 IMPRESSION: No acute findings in the chest. There is been no change from reference exam. Support structures in stable position. Electronically Signed: Franco Hu MD at 17:18 EST , Assessment & Plan Assessment/Plan (1) Non-STEMI (non-ST elevated myocardial infarction): PLAN: May be a type II event given his hypoxia plus possibly what ever else is underlying his underlying encephalopathy, such as an infection Patient is already anticoagulated on apixaban. If patient needs to be taken off apixaban and anticoagulated, patient CANNOT take heparin or enoxaparin given his history of HIT Check echocardiogram Cycle troponins Consult cardiology for further recommendations No aspirin given known allergy (2) Hypoxia: PLAN: Not in any distress Chest x-ray was unremarkable COVID-19 and influenza were negative Respiratory panel pending Cannot rule out underlying asthma or COPD (3) Encephalopathy: PLAN: Suspect metabolic but unclear of the etiology. I initially been related with his hypoxia but he still is confused and with slurred speech Will evaluate the patient for stroke. I advised emergency room physician to check a CT of his head and if that is negative the patient will undergo an MRI of the brain, MRA of the head neck and additional stroke measures with a 2D echocardiogram, therapy evaluations. (4) ESRD (end stage renal disease) on dialysis: PLAN: Patient completed his dialysis today. He is next due for dialysis on the . No need for renal replacement therapy at this time. Would likely hold off on a nephrology consult until the so that he could have dialysis on . 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 PLAN: Plan Chronic conditions A. fib: Continue anticoagulation with apixaban. Continue with carvedilol History of hyperparathyroidism: Calcium is normal. VTE prophylaxis: Not indicated as patient is already anticoagulated CODE STATUS: Addressed with the for member at bedside. Patient is full CODE STATUS. Charges/Coding Visit Charges Inpatient E&M: 86280 Init Hosp L3
--- NOTE | 2022-05-01 20:52 | EKG12_ITS ---
Test Reason : am ekg Blood Pressure : / mmHG Vent. Rate : 096 BPM Atrial Rate : 000 BPM P-R Int : 000 ms QRS Dur : 172 ms QT Int : 412 ms P-R-T Axes : 000 -69 094 degrees QTc Int : 520 ms Atrial fibrillation Left axis deviation Right bundle branch block Abnormal ECG Confirmed by JANI BYERS, BOYD ([id number]), photographic editor PASCUAL VEGA ([id number]) on 05/05/2022 1:15:49 PM Referred By: Rosette Confirmed By:BOYD GUNTER MD
--- NOTE | 2022-05-01 20:52 | ECHOD_ITS ---
Reason For Study: TIA/CVA Procedure This was a 2D Doppler, Color Flow transthoracic echocardiogram. Exam performed portable in patient room. Left Ventricle Normal LV size. Left ventricular systolic function is normal. The estimated ejection fraction is 60 %. Diastolic function is indeterminate. No regional wall motion abnormalities noted. Right Ventricle Normal RV size. Normal systolic function. Atria The left atrium is moderately enlarged. The right atrium is moderately enlarged. No doppler evidence for ASD. Bubble contrast study negative for right to left interatrial shunt. Mitral Valve There is no mitral annular calcification. Normal mitral valve. Mild (1+) mitral valve insufficiency. Tricuspid Valve Normal tricuspid valve. Trivial tricuspid valve insufficiency. Right ventricular systolic pressure estimated to be 39 mmHg. Aortic Valve Trisinus/trileaflet aortic valve. Mild diffuse aortic valve thickening. Mild diffuse aortic valve calcification. Pulmonic Valve The pulmonic valve is not well visualized. Trivial pulmonic valve insufficiency. Great Vessels Normal sized aortic root. Calcified aortic root. Pericardium/Pleural No pericardial effusion. Medication Performed a rapid injection of agitated mix of 9 cc saline and 1cc air to assess for atrial septal defect. MMode/2D Measurements & Calculations LVIDd: 5.2 cm IVSd: 1.2 cm Ao root diam: 2.6 cm LVIDs: 2.8 cm LVPWd: 1.3 cm FS: 45.0 % LAV(MOD-bp): 135.6 ml LVAd ap4: 23.4 cm2 LVAd ap2: 28.7 cm2 LAV(MOD-bp) Indexed: 61.8 ml/m2 LVLd ap4: 6.5 cm LVLd ap2: 7.0 cm LAV(MOD-sp2): 118.1 ml EDV(MOD-sp4): 72.6 ml EDV(MOD-sp2): 101.6 ml LAV(MOD-sp4): 119.6 ml EDV(sp4-el): 71.1 ml EDV(sp2-el): 99.9 ml LVAs ap4: 15.1 cm2 LVAs ap2: 16.2 cm2 LVLs ap4: 5.8 cm LVLs ap2: 5.8 cm ESV(MOD-sp4): 34.8 ml ESV(MOD-sp2): 38.2 ml ESV(sp4-el): 33.4 ml ESV(sp2-el): 38.0 ml EF(MOD-sp4): 52.1 % EF(MOD-sp2): 62.4 % EF(sp4-el): 53.0 % SV(MOD-sp4): 37.8 ml SV(MOD-sp2): 63.4 ml SV(sp4-el): 37.7 ml LA A4 area: 33.2 cm2 LA dimension(2D): 5.5 cm RA A4 area: 29.5 cm2 Doppler Measurements & Calculations MV E max adalberto: 112.4 cm/sec Ao V2 max: 151.3 cm/sec LV V1 max: 118.7 cm/sec Ao max P.2 mmHg LV V1 max P.7 mmHg PA V2 max: 90.3 cm/sec TR max adalberto: 280.0 cm/sec TR max P.4 mmHg ECHO/Echo Complete Interpretation Summary Left ventricular systolic function is normal. The estimated ejection fraction is 60 %. The left atrium is moderately enlarged. The right atrium is moderately enlarged. Mild (1+) mitral valve insufficiency. Trivial tricuspid valve insufficiency. Mild diffuse aortic valve thickening. Mild diffuse aortic valve calcification. Trivial pulmonic valve insufficiency. Calcified aortic root. Right ventricular systolic pressure estimated to be 39 mmHg. Diastolic function is indeterminate. Comment: 2D echocardiographic images demonstrate a small mobile echodensity in the right atrium appearing compatible with the patient's central venous catheter/dialysis cathet er. Ordering Physician: Ed Dinero Referring Physician: Martin Nunez Performed By: Georgia Yousif, KENTON, RVT
[2022-05-01 20:55] LABS: Reflex Lactate? Y
[2022-05-01 22:17] LABS: Troponin-I HS 535 pg/mL (3.0-78.0)
[2022-05-01 22:18] LABS: Lactic Acid 2.1 mmol/L (0.4-1.9)
[2022-05-01] MEDS: APIXABAN 2.5 MG TABLET PO (22:35)
[2022-05-01] MEDS: Carvedilol 6.25 MG Tablet PO (22:47)
[2022-05-01 23:16] LABS: Troponin-I HS 499 pg/mL (3.0-78.0)
[2022-05-02] VITALS (26 sets, daily range): BP systolic 82–114; BP diastolic 42–79; PULSE 71–98; RESP 18–28; TEMP 36.4–37; O2SAT 88–98; BMI 32.1
[2022-05-02 01:46] LABS: Magnesium 1.8 mg/dL (1.6-2.6); Phosphorus 1.8 mg/dL (2.5-4.9)
[2022-05-02 03:36] LABS: Absolute Lymphocyte Count 0.28 X10^3/uL (0.83-4.51); Absolute Neutrophil Count 20.1 X10^3/uL (2.0-7.7); Basophil# 0.04 X10^3/uL; Basophil% 0.2 % (0-1); Eosinophil# 0.08 X10^3/uL; Eosinophils% 0.4 % (0-5); Hemoglobin 9.1 g/dL (13.0-16.5); Lymphocyte # 0.28 X10^3/ul (0.83-4.51); Lymphocyte % 1.3 % (19-41); Mean Corp Hgb Conc 31.4 g/dL (32-36); Mean Corpuscular Hgb 32.2 pg (27.0-32.0); Mean Corpuscular Volume 102.5 fL (80-94); Monocyte% 3.2 % (0-10); NRBC Flagged by Analyzer 0 % (0-5); Neutrophil # 20.11 X10^3/uL (2.7-7.7); POSITIVE DIFFERENTIAL YES; POSITIVE MORPHOLOGY YES; Platelet Count 106 K/mm3 (150-450); RBC Distribution Width CV 14.4 % (11.6-14.6); RBC Distribution Width SD 53.3 fl (35.1-43.9); Red Blood Count 2.83 M/mm3 (4.6-6.2); White Blood Count 21.8 K/mm3 (4.4-11.0)
[2022-05-02 03:49] LABS: Anion Gap 11 (5-15); BUN 45 mg/dL (7-18); BUN/Creat Ratio 12.8 RATIO (10-20); Calcium,Total 7.9 mg/dL (8.5-10.1); Chloride 102 mmol/L (98-107); Cholesterol 109 mg/dL (200); Creatinine, Serum 3.52 mg/dL (0.70-1.30); EST Glomerular Filtration Rate 18 mL/min (>60); Est Glom Filt Rate - Afr Amer 22 mL/min (>60); Estimated Creatinine Clearance 18.13 ml/min; Glucose 156 mg/dL (74-106); High Density Lipoprotein 33 mg/dL; Potassium 3.2 mmol/L (3.5-5.1); Sodium Level 139 mmol/L (136-145); Triglycerides 152 mg/dL; Very Low Density Lipoprotein 30 mg/dL (5-40)
[2022-05-02 03:54] LABS: Troponin-I HS 519 pg/mL (3.0-78.0)
[2022-05-02 04:00] LABS: Differential Indicated SCAN CRITERIA MET; Macrocytosis 2+; Platelet Estimate SLT DEC (ADEQ)
--- NOTE | 2022-05-02 04:04 | PCM.HOSP.N ---
Hospitalist Note Given presentation with respiratory complaints, hypoxia with notable now WBC elevation and significant L shift, lower BP with IVFs being administered with BP hold, will obtain COVID PCR, place on BSA pending further assessments and repeat CXR this AM. Full respiratory panel unremarkable. Has remained afebrile. Troponin remains similar, initially decreased some but now back to prior. Maintained on eliquis with HIT history. LA initially 2.6->2.1. ECHO ordered. Cardiology consulted. AM Hgb 9.1 from prior 11.2. Will repeat level to be certain as notable decrease although no GI complaints currently.
[2022-05-02] MEDS: 0.9% Normal Saline 1,000 ML 100 ML IV (04:57)
[2022-05-02] MEDS: Potassium Chloride Oral Tablet 20 MEQ 40 MEQ PO (04:59)
--- NOTE | 2022-05-02 05:04 | PCM.RX.CS ---
Consult Pharmacy has been consulted to manage selected antiobiotic: Vancomycin Type of Consult: New start Prior Doses of Antibiotics Received/Current Regimen: Medications Vancomycin HCl 2,000 mg/ (Sodium Chloride) 540 mls @ 250 mls/hr IV X1 ONE Stop: 05/02/22 06:39 Labs: Sodium 139 mmol/L (136-145) 05/02/22 02:34 Potassium 3.2 mmol/L (3.5-5.1) L 05/02/22 02:34 Chloride 102 mmol/L (98-107) 05/02/22 02:34 Carbon Dioxide 26.0 mmol/L (21.0-32.0) 05/02/22 02:34 Anion Gap 11 (5-15) 05/02/22 02:34 BUN 45 mg/dL (7-18) H 05/02/22 02:34 Creatinine 3.52 mg/dL (0.70-1.30) H 05/02/22 02:34 Est GFR (MDRD) Af Amer 22 mL/min (>60) L 05/02/22 02:34 Est GFR (MDRD) Non-Af 18 mL/min (>60) L 05/02/22 02:34 BUN/Creatinine Ratio 12.8 RATIO (10-20) 05/02/22 02:34 Glucose 156 mg/dL (74-106) H 05/02/22 02:34 Microbiology: Microbiology 05/01/22 18:25 Mucosa - Nasopharyngeal Respiratory Panel (PCR) - Final 05/01/22 16:30 Nasal Secretion SARS-CoV-2 & FLU Antigen (Rapid) - Final Weight used for dosin.8 kg Estimated Creatinine Clearance: 18 Goal Trough: 15-20 mcg/mL Pharmacy Plan for Drug Dosing: An initial vancomycin dose of 2000mg will be given. Subsequent doses will be scheduled post-HD, and determined by vanco levels. Pharmacy Service will continue to monitor and adjust dosing as required.
[2022-05-02 05:26] LABS: Procalcitonin 5.97 ng/mL (0.00-0.09)
--- NOTE | 2022-05-02 05:55 | RAD_ITS ---
STUDY: X-RAY CHEST REASON FOR EXAM: Male, 76 years old. Dyspnea, cough TECHNIQUE: Portable, upright, AP chest x-ray COMPARISON: 05/01/2022 RAD/Chest 1 View (Portable) IMPRESSION: Bilateral pulmonary infiltrates superimposed on chronic lung disease. Left lateral costophrenic angle atelectasis/consolidation. Right chest port and left IJ central catheter remain. Electronically Signed: Gen Ruth MD at 6:51 EST ,
[2022-05-02] MEDS: 0.9% Saline Lock 10 ML Syringe IV ×2 (06:35→22:46)
[2022-05-02 08:08] LABS: M R Staph aureus DNA By PCR Negative (Negative); Probe Check PASS; Specimen Processing Control PASS
--- NOTE | 2022-05-02 08:20 | CON.PCM.CA_ITS ---
Assessment & Plan Assessment/Plan (1) Non-ST elevation WI (NSTEMI): PLAN: He does have elevated cardiac enzymes which appear to have a flat pattern. I do not think that this is related to acute coronary ischemia or plaque rupture. It is likely related to underlying coronary artery disease or demand ischemia. I would recommend that we repeat his echocardiogram to assess his ventricular function consider some form of noninvasive testing and then further recommendations made. (2) Essential hypertension: PLAN: He has a history of hypertension which appears to be well controlled on the current medical therapy I would not recommend that we make any other major changes. (3) Aortic root dilatation: PLAN: His aortic root is noted to be mildly dilated on his previous echocardiogram. At this point in time I do not think that anybody would intervene and we will continue to monitor this. (4) Paroxysmal A-fib: PLAN: He does have a history of persistent atrial fibrillation at this time. He will continue on his anticoagulation. (5) CHF (congestive heart failure): QUALIFIERS: Heart failure type: unspecified Heart failure chronicity: acute Qualified Code(s): I50.9 - Heart failure, unspecified PLAN: He does have evidence of diastolic heart failure. His ejection fraction is preserved this would be reevaluated with his echocardiogram due to his abnormal cardiac enzymes. He will continue with his dialysis for fluid management. HPI Consult Data Date of Consult: 05/02/22 HPI Narrative HPI Narrative: RIA MARIANO, is a 76 M who presents to the emergency room with complaints of weakness and shortness of breath. He denied any complaints of chest discomfort and may have been mildly confused when he presented. He was seen in December of this year by Dr. Gen Gallego MD. He was known at that time to have atrial fibrillation which appeared to be chronic with preserved ejection fraction and a further history of hypertension, hyperlipidemia, chronic renal insufficiency on hemodialysis and previous thromboembolic events with a history of heparin- induced thrombocytopenia. He also has a remote history of lymphoma and bladder carcinoma. He has been fairly stable otherwise undergoing his dialysis and following up with his appointments. He did undergo previous cardiovascular testing in the past. More recently he has undergone an echocardiogram last year which demonstrated preserved left ventricular systolic function. It was estimated at 60% with moderate left atrial enlargement, stage I diastolic dysfunction and a mildly dilated aortic root. At this particular time he does not appear to be under any distress. Cardiac enzymes and natruretic peptide le vels were obtained in the ED as part of the basic work-up. They were both elevated and cardiology was consulted for further evaluation and management. [facility] Medical History Acute kidney injury Anemia Bladder cancer Bladder cancer CHF (congestive heart failure) CKD (chronic kidney disease) stage 5, GFR less than 15 ml/min Elevated troponin ESRD (end stage renal disease) Essential hypertension History of DVT (deep vein thrombosis) History of pulmonary embolism History of solitary pulmonary nodule HIT (heparin-induced thrombocytopenia) HLD (hyperlipidemia) Hyperparathyroidism Iron deficiency anemia Left upper chest discomfort Lower gastrointestinal bleeding Lymphoma Lymphoma Neutropenic fever Pancytopenia Paroxysmal A-fib Preop cardiovascular exam Pulmonary embolism Renal calculus Shortness of breath VTE (venous thromboembolism) Home Medications carvedilol 6.25 mg tablet 6.25 mg PO BID blood pressure 04/24/17 [History Last Taken 02/15/22] polyethylene glycol 3350 17 gram/dose oral powder 17 g PO DAILY PRN Constipation 07/02/20 [History Last Taken 02/14/22] vitamin B complex 1 tab PO DAILY SUPPLEMENT 07/02/20 [History Last Taken 02/15/22] cetirizine 10 mg capsule 10 mg PO DAILY #30 caps 07/04/20 [Rx Last Taken Unknown] ferrous sulfate 325 mg (65 mg iron) tablet 325 mg PO QODAY SUPPLEMENT #30 tabs 02/20/22 [Rx Last Taken 02/15/22] vitamin B complex and vitamin C no.20-folic acid 1 mg capsule (Virt-Caps) 1 cap PO DAILY #0 caps 02/23/22 [Rx Last Taken Unknown] ascorbic acid (vitamin C) 500 mg tablet 500 mg PO DAILY 03/12/22 [History Last Taken Unknown] magnesium hydroxide 400 mg/5 mL oral suspension (Milk of Magnesia) 30 ml PO Q4H PRN Constipation 03/12/22 [History Last Taken Unknown] apixaban 2.5 mg tablet (Eliquis) 2.5 mg PO BID #0 tabs 03/30/22 [Rx Last Taken Unknown] calcitriol 0.25 mcg capsule 0.25 mcg PO TUTHSA 05/01/22 [History Last Taken Unknown] Allergy/AdvReac Type Severity Reaction Status Date / Time enoxaparin [From Lovenox] Allergy Other Verified 05/01/22 16:11 heparin Allergy Other Verified 05/01/22 16:11 aspirin AdvReac Other Verified 05/01/22 16:11 Iodinated Contrast Media AdvReac OTHER Verified 05/01/22 16:11 [CONTRASTS] Family History Father Cancer lung Arrhythmia Brother Cancer Surgical History AV fistula H/O total cystectomy History of cataract extraction History of corrected cleft lip and palate History of tonsillectomy Social History household members: none Smoking Status: Former smoker how long ago did patient quit smokin alcohol intake: never substance use type: does not use caffeine: No ROS Constitutional Constitutional: Reports weakness; Denies fever(s) or weight loss Eyes Eyes: Reports systems reviewed and no addt'l complaints, except as documented ENT HEENT: Reports systems reviewed and no addt'l complaints, except as documented Cardiovascular Cardiovascular: Reports dyspnea on exertion; Denies chest pain at rest, chest pain with activity, dyspnea at rest, edema, palpitations or paroxysmal nocturnal dyspnea Respiratory/Chest Respiratory/Chest: Reports shortness of breath with exertion; Denies dyspnea on exertion, productive cough or shortness of breath at rest Gastrointestinal Gastrointestinal: Denies change in bowel habits, nausea, vomiting or weight changes Genitourinary Genitourinary: Denies difficulty urinating Musculoskeletal Musculoskeletal: Denies joint stiffness or muscle weakness Integumentary Integumentary: Denies lesions Neurologic Neurologic: Denies dizziness or syncope Psychiatric Psychiatric: Denies anxiety Endocrine Endocrinology: Denies excessive sweating or fatigue Hematologic/Lymphatic Hematologic/Lymphatic: Denies anemia Allergic/Immunologic Allergic/Immunologic: Denies seasonal rhinorrhea Physical Exam Const alert, oriented x3 and no apparent distress General Appearance: cooperative HEENT normocephalic, head/scalp atraumatic and hearing grossly normal bilaterally Eyes PERRL and EOMs intact bilaterally Eyes Narrative: No icterus Neck no lymphadenopathy Resp normal respiratory effort, no retractions, no use of accessory muscles and clear to auscultation bilaterally Cardio Cardio Narrative: Irregularly irregular. Rhythm: abnormal rhythm GI normal to inspection, nondistended, normoactive bowel sounds, soft to palpation, non-tender, non-distended and hepatosplenomegaly Extremity normal to inspection and no clubbing, cyanosis or edema Neuro oriented x3, CN's II-XII intact bilaterally and moves all extremities Neuro Narrative: Muscle strength 5-5 in upper extremities and 4 out of 5 in the lower extremities. Patient was unsteady with [id number] slight ataxia of both upper extremities but his right being worse than his left. Coordination / Balance: Negative for [id number] test normal Psych affect normal Risk Stratification Risk Stratification Applicable: Yes Age >/= 65: Yes >/= 3 CAD Risk Factors (HTN, HLD, DM, family hx of CAD, or current smoker): No Aspirin Use in the Past 7 Days: No Severe Angina (>/= episodes in 24 hours): No EKG ST Changes >/= 0.5mm: No Positive Cardiac Marker: Yes ONEIDA Risk Stratification Score: 2 ONEIDA % Risk: 8% Risk Objective Data Vital Signs: Vital Signs Temp Pulse Resp BP Pulse Ox O2 Del Method O2 Flow Rate 97.7 F L 86 20 H 99/79 97 Nasal Cannula 3 05/02/22 07:56 05/02/22 07:56 05/02/22 07:56 05/02/22 07:56 05/02/22 07:57 05/02/22 07:57 05/02/22 07:57 Oxygen Flow Rate (L/min) 3 Oxygen Delivery Method Nasal Cannula Weight: 217 lb 13.067 oz Body Mass Index (BMI) 32.1 Intake & Output: Intake and Output for Last 24 Hours 04/30/22 05/01/22 05/02/22 23:59 23:59 23:59 Intake Total 877 / 877 Balance 877 / 877 Lab / Micro Data Result Diagrams: 05/02/22 02:34 05/02/22 02:34 Labs: Laboratory Results - last 24 hr 05/01/22 16:50: WBC Cancelled, Corrected WBC Cancelled, RBC Cancelled, Hgb Cancelled, Hct Cancelled, MCV Cancelled, MCH Cancelled, MCHC Cancelled, RDW Std Deviation Cancelled, RDW Coeff of Lencho Cancelled, Plt Count Cancelled, MPV Cancelled, Immature Gran % (Auto) Cancelled, Neut % (Auto) Cancelled, Lymph % (Auto) Cancelled, Howard % (Auto) Cancelled, Eos % (Auto) Cancelled, Baso % (Auto) Cancelled, Absolute Neuts (auto) Cancelled, Absolute Lymphs (auto) Cancelled, Total Counted Cancelled, Neutrophils % (Manual) Cancelled, Band Neutrophils % Cancelled, Lymphocytes % (Manual) Cancelled, Monocytes % (Manual) Cancelled, Eosinophils % (Manual) Cancelled, Basophils % (Manual) Cancelled, Metamyelocytes % Cancelled, Myelocytes % Cancelled, Promyelocytes % Cancelled, Blast Cells % Cancelled, Plasma Cell % (Manual) Cancelled, Other Cells % Cancelled, Nucleated RBC % Cancelled, Nucleated RBCs/100 WBC Cancelled, Differential Comment Cancelled, Diff Path Review Cancelled, Hypersegmented Neuts Cancelled, Atypical Lymphocytes Cancelled, Reactive Lymphocytes Cancelled, Smudge Cells Cancelled, Toxic Granulation Cancelled, Toxic Vacuolation Cancelled, Dohle Bodies Cancelled, Toro Rods Cancelled, Platelet Estimate Cancelled, Plt Morphology Comment Cancelled, RBC Morphology Cancelled, Polychromasia Cancelled, Hypochromasia Cancelled, Poikilocytosis Cancelled, Basophilic Stippling Cancelled, Anisocytosis Cancelled, Microcytosis Cancelled, Macrocytosis Cancelled, Spherocytes Cancelled, Sickle Cells Cancelled, Target Cells Cance lled, Tear Drop Cells Cancelled, Ovalocytes Cancelled, Stomatocytes Cancelled, [place] Bodies Cancelled, Abdoulaye Cells Cancelled, Bite Cells Cancelled, Crenated Cell Cancelled, Acanthocytes (Spur) Cancelled, Rouleaux Cancelled, Schistocytes Cancelled 05/01/22 16:50: Sodium Cancelled, Potassium Cancelled, Chloride Cancelled, Carbon Dioxide Cancelled, Anion Gap Cancelled, BUN Cancelled, Creatinine Cancelled, Estim Creat Clear Calc Cancelled, Est GFR (MDRD) Af Amer Cancelled, Est GFR (MDRD) Non-Af Cancelled, BUN/Creatinine Ratio Cancelled, Glucose Cancelled, Calcium Cancelled, Troponin I High Sens Cancelled 05/01/22 16:50: B-Natriuretic Peptide Cancelled 05/01/22 16:50: Lactic Acid 2.6 H* 05/01/22 16:50: Procalcitonin 5.97 H 05/01/22 17:15: Sodium 141, Potassium 3.7, Chloride 99, Carbon Dioxide 32.0, Anion Gap 10, BUN 34 H, Creatinine 2.69 H, Estim Creat Clear Calc 23.73, Est GFR (MDRD) Af Amer 30 L, Est GFR (MDRD) Non-Af 25 L, BUN/Creatinine Ratio 12.6, Glucose 127 H, Calcium 8.9 05/01/22 17:15: WBC 4.8, RBC 3.54 L, Hgb 11.2 L, Hct 35.3 L, MCV 99.7 H, MCH 31.6, MCHC 31.7 L, RDW Std Deviation 49.9 H, RDW Coeff of Lencho 13.9, Plt Count 1 13 L, MPV 10.3, Immature Gran % (Auto) 0.200, Neut % (Auto) 95.9 H, Lymph % (Auto) 2.7 L, Howard % (Auto) 0.6, Eos % (Auto) 0.4, Baso % (Auto) 0.2, Absolute Neuts (auto) 4.6, Absolute Lymphs (auto) 0.13 L, Nucleated RBC % 0, Differential Comment SEE COMMENT, Platelet Estimate SLT DEC, RBC Morphology N CHROM, Anisocytosis RARE, Macrocytosis RARE 05/01/22 17:15: Troponin I High Sens 511 H* 05/01/22 17:15: B-Natriuretic Peptide 746.8 H 05/01/22 21:30: Lactic Acid 2.1 H* 05/01/22 21:30: Troponin I High Sens 535 H* 05/01/22 22:42: Troponin I High Sens 499 H* 05/01/22 22:42: Phosphorus 1.8 L, Magnesium 1.8 05/02/22 02:34: WBC 21.8 H, RBC 2.83 L, Hgb 9.1 L, Hct 29.0 L, MCV 102.5 H, MCH 32.2 H, MCHC 31.4 L, RDW Std Deviation 53.3 H, RDW Coeff of Lencho 14.4, Plt Count 106 L, MPV 11.0, Immature Gran % (Auto) 2.900 H, Neut % (Auto) 92.0 H, Lymph % (Auto) 1.3 L, Howard % (Auto) 3.2, Eos % (Auto) 0.4, Baso % (Auto) 0.2, Absolute Neuts (auto) 20.1 H, Absolute Lymphs (auto) 0.28 L, Nucleated RBC % 0, Platelet Estimate SLT DEC, Macrocytosis 2+ 05/02/22 02:34: Sodium 139, Potassium 3.2 L, Chloride 102, Carbon Dioxide 26.0, Anion Gap 11, BUN 45 H, Creatinine 3.52 H, Estim Creat Clear Calc 18.13, Est GFR (MDRD) Af Amer 22 L, Est GFR (MDRD) Non-Af 18 L, BUN/Creatinine Ratio 12.8, Glucose 156 H, Calcium 7.9 L, Triglycerides 152, Cholesterol 109, LDL Cholesterol 46, VLDL Cholesterol 30, HDL Cholesterol 33 L 05/02/22 02:34: Troponin I High Sens 519 H* 05/02/22 05:05: COVID-19 ([facility]) Not Detected 05/02/22 05:40: MRSA (PCR) Negative Micro: Microbiology 05/01/22 18:25 Mucosa - Nasopharyngeal Respiratory Panel (PCR) - Final 05/01/22 16:30 Nasal Secretion SARS-CoV-2 & FLU Antigen (Rapid) - Final Rhythm Strip Rhythm Strip: A-fib Cardiology Labs/Tests 05/01/22 16:50: WBC Cancelled, Corrected WBC Cancelled, RBC Cancelled, Hgb Cancelled, Hct Cancelled, MCV Cancelled, MCH Cancelled, MCHC Cancelled, Plt Coun t Cancelled, MPV Cancelled, Immature Gran % (Auto) Cancelled, Neut % (Auto) Cancelled, Lymph % (Auto) Cancelled, Howard % (Auto) Cancelled, Eos % (Auto) Cancelled, Baso % (Auto) Cancelled, Absolute Neuts (auto) Cancelled, Total Counted Cancelled, Neutrophils % (Manual) Cancelled, Band Neutrophils % Ca ncelled, Lymphocytes % (Manual) Cancelled, Monocytes % (Manual) Cancelled, Eosinophils % (Manual) Cancelled, Basophils % (Manual) Cancelled, Metamyelocytes % Cancelled, Myelocytes % Cancelled, Promyelocytes % Cancelled, Blast Cells % Cancelled, Plasma Cell % (Manual) Cancelled, Other Cells % Cancelled, Nucleated RBC % Cancelled 05/01/22 16:50: Sodium Cancelled, Potassium Cancelled, Chloride Cancelled, Carbon Dioxide Cancelled, Anion Gap Cancelled, BUN Cancelled, Creatinine Cancelled, Est GFR (MDRD) Af Amer Cancelled, Est GFR (MDRD) Non-Af Cancelled, BUN/Creatinine Ratio Cancelled, Glucose Cancelled, Calcium Cancelled 05/01/22 16:50: B-Natriuretic Peptide Cancelled 05/01/22 16:50: Lactic Acid 2.6 H* 05/01/22 17:15: Sodium 141, Potassium 3.7, Chloride 99, Carbon Dioxide 32.0, Anion Gap 10, BUN 34 H, Creatinine 2.69 H, Est GFR (MDRD) Af Amer 30 L, Est GFR (MDRD) Non-Af 25 L, BUN/Creatinine Ratio 12.6, Glucose 127 H, Calcium 8.9 05/01/22 17:15: WBC 4.8, RBC 3.54 L, Hgb 11.2 L, Hct 35.3 L, MCV 99.7 H, MCH 31.6, MCHC 31.7 L, Plt Count 113 L, MPV 10.3, Immature Gran % (Auto) 0.200, Neut % (Auto) 95.9 H, Lymph % (Auto) 2.7 L, Howard % (Auto) 0.6, Eos % (Auto) 0.4, Baso % (Auto) 0.2, Absolute Neuts (auto) 4.6, Nucleated RBC % 0 05/01/22 17:15: B-Natriuretic Peptide 746.8 H 05/01/22 21:30: Lactic Acid 2.1 H* 05/01/22 22:42: Phosphorus 1.8 L, Magnesium 1.8 05/02/22 02:34: WBC 21.8 H, RBC 2.83 L, Hgb 9.1 L, Hct 29.0 L, MCV 102.5 H, MCH 32.2 H, MCHC 31.4 L, Plt Count 106 L, MPV 11.0, Immature Gran % (Auto) 2.900 H, Neut % (Auto) 92.0 H, Lymph % (Auto) 1.3 L, Howard % (Auto) 3.2, Eos % (Auto) 0.4, Baso % (Auto) 0.2, Absolute Neuts (auto) 20.1 H, Nucleated RBC % 0 05/02/22 02:34: Sodium 139, Potassium 3.2 L, Chloride 102, Carbon Dioxide 26.0, Anion Gap 11, BUN 45 H, Creatinine 3.52 H, Est GFR (MDRD) Af Amer 22 L, Est GFR (MDRD) Non-Af 18 L, BUN/Creatinine Ratio 12.8, Glucose 156 H, Calcium 7.9 L, Triglycerides 152, Cholesterol 109, LDL Cholesterol 46, VLDL Cholesterol 30, HDL Cholesterol 33 L Rhythm: EKG: ECHO: Stress Test: Cardiac Cath: PCI: CT Surgery: Holter monitor: EPS: PPM: CXR: Chest CT Scan: Radiography Diagnostic Testing: Radiology Impression Chest X-Ray 05/01/22 16:45 IMPRESSION: No acute findings in the chest. There is been no change from reference exam. Support structures in stable position. Electronically Signed: Franco Hu MD at 17:18 EST , Brain CT 05/01/22 18:42 IMPRESSION: 1. No acute intracranial abnormality. 2. Underlying senescent change with small vessel ischemia. Electronically Signed: Franco Hu MD at 19:59 EST , Chest X-Ray 05/02/22 05:55 IMPRESSION: Bilateral pulmonary infiltrates superimposed on chronic lung disease. Left lateral costophrenic angle atelectasis/consolidation. Right chest port and left IJ central catheter remain. Electronically Signed: Gen Ruth MD at 6:51 EST ,
[2022-05-02] MEDS: Ascorbic Acid 500 MG Tablet PO (09:33)
[2022-05-02] MEDS: Folic Acid/Vitamin B Comp W-C 1 Capsule 1 CAP PO (09:34)
[2022-05-02] MEDS: APIXABAN 2.5 MG TABLET PO ×2 (09:40→22:43)
--- NOTE | 2022-05-02 10:10 | MRI_ITS ---
HISTORY: encephalopathy, ataxia. TECHNIQUE: Routine [place]/brain 3D time of flight MR angiogram protocol was performed without contrast. 3D reconstructions were reviewed. 193 images. COMPARISON: MRI brain same day. FINDINGS: ICAs: No significant stenosis at the intracranial/visualized segments. ACAs: No significant stenosis at the visualized segments. MCAs: No significant stenosis at the visualized segments. cake maker: No significant stenosis at the visualized segments. BASILAR ARTERY: No significant stenosis. VERTEBRAL ARTERIES: No significant stenosis at the intradural/visualized segments. No evidence of intracranial aneurysm or vascular malformation. MRI/MRA Head ONLY without Contrast IMPRESSION: No evidence for large vessel occlusion or other focal vascular abnormality in the [place] region. Electronically Signed: Mimi Camara MD at 12:26 EST ,
--- NOTE | 2022-05-02 10:28 | MRI_ITS ---
HISTORY: encephalopathy. TECHNIQUE: Multiplanar and multisequence MR images of the brain were obtained without contrast. 306 images. COMPARISON: CT prior day. FINDINGS: BRAIN PARENCHYMA: Old lacunar infarct in the right basal ganglia. Small zones and foci of increased T2 FLAIR signal in the bilateral cerebral white matter. No abnormal focus of restricted diffusion. No acute intracranial hemorrhage identified. CSF SPACES: Generalized volume loss. No significant midline shift or other mass effect.No extra-axial fluid collection. VASCULAR SYSTEM: Major intracranial flow voids are maintained. PARANASAL SINUSES AND MASTOID AIR CELLS: No significant air fluid levels. ORBITS: Bilateral lens resections. MRI/Brain without Contrast IMPRESSION: No evidence for acute infarct. Chronic involutional and white matter changes. Old lacunar infarct in the right basal ganglia. Electronically Signed: Mimi Camara MD at 12:31 EST ,
--- NOTE | 2022-05-02 10:58 | MRI_ITS ---
HISTORY: encephalopathy. TECHNIQUE: Routine [id number] carotid MR angiogram protocol was performed without contrast. 3D reconstructions were reviewed. NASCET criteria using the distal ICAs for comparison were used for evaluation of stenoses. 585 images. COMPARISON: None. FINDINGS: AORTIC ARCH AND BRANCHES: Excluded from [id number]. RIGHT CCA/RIGHT ICA: Stenosis at the common carotid bifurcation extending into the origin of the internal carotid artery, obscured by motion artifact. LEFT CCA/LEFT ICA: Stenosis at the common carotid bifurcation extending into the origin of the internal carotid artery, obscured by motion artifact. RIGHT VERTEBRAL ARTERY: Hypoplastic. Artifactual volume loss at the more horizontal portions of the vessel. No occlusion. LEFT VERTEBRAL ARTERY: Dominant with mild stenosis and hypointense artifact noted. MRI/MRA Neck without Contrast IMPRESSION: Bilateral carotid stenosis in the neck, obscured by motion artifact. Recommend ultrasound or CTA. Electronically Signed: Mimi Camara MD at 12:46 EST ,
--- NOTE | 2022-05-02 12:45 | PCM.PN.HOSP ---
Subjective Subjective Follow-up on acute non-STEMI/encephalopathy/hypoxia: Patient was seen and examined. He is alert oriented x3. Denied any new complaints. Denied any chest pain or dizziness. MRI of the brain is negative for any acute intracranial process. Objective Data Objective Data Vital Signs: Vital Signs Temp Pulse Resp BP Pulse Ox O2 Del Method O2 Flow Rate 97.5 F L 83 20 H 99/64 97 Nasal Cannula 2 05/02/22 08:55 05/02/22 08:55 05/02/22 08:55 05/02/22 08:55 05/02/22 08:55 05/02/22 08:55 05/02/22 09:17 Oxygen Flow Rate (L/min) 2 Oxygen Delivery Method Nasal Cannula Weight: 98.8 kg Body Mass Index (BMI) 32.1 Intake & Output: Intake and Output for Last 24 Hours 04/30/22 05/01/22 05/02/22 23:59 23:59 23:59 Intake Total 2141 / 2141 Balance 2141 / 2141 Lab / Micro Data Result Diagrams: 05/02/22 02:34 05/02/22 02:34 Labs: Laboratory Results - last 24 hr 05/01/22 16:50: WBC Cancelled, Corrected WBC Cancelled, RBC Cancelled, Hgb Cancelled, Hct Cancelled, MCV Cancelled, MCH Cancelled, MCHC Cancelled, RDW Std Deviation Cancelled, RDW Coeff of Lencho Cancelled, Plt Count Cancelled, MPV Cancelled, Immature Gran % (Auto) Cancelled, Neut % (Auto) Cancelled, Lymph % (Auto) Cancelled, [place] % (Auto) Cancelled, Eos % (Auto) Cancelled, Baso % (Auto) Cancelled, Absolute Neuts (auto) Cancelled, Absolute Lymphs (auto) Cancelled, Total Counted Cancelled, Neutrophils % (Manual) Cancelled, Band Neutrophils % Cancelled, Lymphocytes % (Manual) Cancelled, Monocytes % (Manual) Cancelled, Eosinophils % (Manual) Cancelled, Basophils % (Manual) Cancelled, Metamyelocytes % Cancelled, Myelocytes % Cancelled, Promyelocytes % Cancelled, Blast Cells % Cancelled, Plasma Cell % (Manual) Cancelled, Other Cells % Cancelled, Nucleated RBC % Cancelled, Nucleated RBCs/100 WBC Cancelled, Differential Comment Cancelled, Diff Path Review Cancelled, Hypersegmented Neuts Cancelled, Atypical Lymphocytes Cancelled, Reactive Lymphocytes Cancelled, Smudge Cells Cancelled, Toxic Granulation Cancelled, Toxic Vacuolation Cancelled, Dohle Bodies Cancelled, Toro Rods Cancelled, Platelet Estimate Cancelled, Plt Morphology Comment Cancelled, RBC Morphology Cancelled, Polychromasia Cancelled, Hypochromasia Cancelled, Poikilocytosis Cancelled, Basophilic Stippling Cancelled, Anisocytosis Cancelled, Microcytosis Cancelled, Macrocytosis Cancelled, Spherocytes Cancelled, Sickle Cells Cancelled, Target Cells Cancelled, Tear Drop Cells Cancelled, Ovalocytes Cancelled, Stomatocytes Cancelled, [place] Bodies Cancelled, [place] Cells Cancelled, Bite Cells Cancelled, Crenated Cell Cancelled, Acanthocytes (Spur) Cancelled, Rouleaux Cancelled, Schistocytes Cancelled 05/01/22 16:50: Sodium Cancelled, Potassium Cancelled, Chloride Cancelled, Carbon Dioxide Cancelled, Anion Gap Cancelled, BUN Cancelled, Creatinine Cancelled, Estim Creat Clear Calc Cancelled, Est GFR (MDRD) Af Amer Cancelled, Est GFR (MDRD) Non-Af Cancelled, BUN/Creatinine Ratio Cancelled, Glucose Cancelled, Calcium Cancelled, Troponin I High Sens Cancelled 05/01/22 16:50: B-Natriuretic Peptide Cancelled 05/01/22 16:50: Lactic Acid 2.6 H* 05/01/22 16:50: Procalcitonin 5.97 H 05/01/22 17:15: Sodium 141, Potassium 3.7, Chloride 99, Carbon Dioxide 32.0, Anion Gap 10, BUN 34 H, Creatinine 2.69 H, Estim Creat Clear Calc 23.73, Est GFR (MDRD) Af Amer 30 L, Est GFR (MDRD) Non-Af 25 L, BUN/Creatinine Ratio 12.6, Glucose 127 H, Calcium 8.9 05/01/22 17:15: WBC 4.8, RBC 3.54 L, Hgb 11.2 L, Hct 35.3 L, MCV 99.7 H, MCH 31.6, MCHC 31.7 L, RDW Std Deviation 49.9 H, RDW Coeff of Lencho 13.9, Plt Count 113 L, MPV 10.3, Immature Gran % (Auto) 0.200, Neut % (Auto) 95.9 H, Lymph % (Auto) 2.7 L, [place] % (Auto) 0.6, Eos % (Auto) 0.4, Baso % (Auto) 0.2, Absolute Neuts (auto) 4.6, Absolute Lymphs (auto) 0.13 L, Nucleated RBC % 0, Differential Comment SEE COMMENT, Platelet Estimate SLT DEC, RBC Morphology N CHROM, Anisocytosis RARE, Macrocytosis RARE 05/01/22 17:15: Troponin I High Sens 511 H* 05/01/22 17:15: B-Natriuretic Peptide 746.8 H 05/01/22 21:30: Lactic Acid 2.1 H* 05/01/22 21:30: Troponin I High Sens 535 H* 05/01/22 22:42: Troponin I High Sens 499 H* 05/01/22 22:42: Phosphorus 1.8 L, Magnesium 1.8 05/02/22 02:34: WBC 21.8 H, RBC 2.83 L, Hgb 9.1 L, Hct 29.0 L, MCV 102.5 H, MCH 32.2 H, MCHC 31.4 L, RDW Std Deviation 53.3 H, RDW Coeff of Lencho 14.4, Plt Count 106 L, MPV 11.0, Immature Gran % (Auto) 2.900 H, Neut % (Auto) 92.0 H, Lymph % (Auto) 1.3 L, [place] % (Auto) 3.2, Eos % (Auto) 0.4, Baso % (Auto) 0.2, Absolute Neuts (auto) 20.1 H, Absolute Lymphs (auto) 0.28 L, Nucleated RBC % 0, Platelet Estimate SLT DEC, Macrocytosis 2+ 05/02/22 02:34: Sodium 139, Potassium 3.2 L, Chloride 102, Carbon Dioxide 26.0, Anion Gap 11, BUN 45 H, Creatinine 3.52 H, Estim Creat Clear Calc 18.13, Est GFR (MDRD) Af Amer 22 L, Est GFR (MDRD) Non-Af 18 L, BUN/Creatinine Ratio 12.8, Glucose 156 H, Calcium 7.9 L, Triglycerides 152, Cholesterol 109, LDL Cholesterol 46, VLDL Cholesterol 30, HDL Cholesterol 33 L 05/02/22 02:34: Troponin I High Sens 519 H* 05/02/22 05:05: COVID-19 (MARSHAL) Not Detected 05/02/22 05:40: MRSA (PCR) Negative Micro: Microbiology 05/01/22 16:50 Blood Culture (Wb) - Venous Blood Culture - Preliminary 05/01/22 17:15 Blood Culture (Wb) #2 - Left Forearm Blood Culture - Preliminary 05/01/22 18:25 Mucosa - Nasopharyngeal Respiratory Panel (PCR) - Final 05/01/22 16:30 Nasal Secretion SARS-CoV-2 & FLU Antigen (Rapid) - Final Radiography Diagnostic Testing: Radiology Impression Chest X-Ray 05/01/22 16:45 IMPRESSION: No acute findings in the chest. There is been no change from reference exam. Support structures in stable position. Electronically Signed: Franco Hu MD at 17:18 EST , Brain CT 05/01/22 18:42 IMPRESSION: 1. No acute intracranial abnormality. 2. Underlying senescent change with small vessel ischemia. Electronically Signed: Franco Hu MD at 19:59 EST , Chest X-Ray 05/02/22 05:55 IMPRESSION: Bilateral pulmonary infiltrates superimposed on chronic lung disease. Left lateral costophrenic angle atelectasis/consolidation. Right chest port and left IJ central catheter remain. Electronically Signed: Gen Ruth MD at 6:51 EST , Head MRA 05/02/22 10:10 IMPRESSION: No evidence for large vessel occlusion or other focal vascular abnormality in the [place]. Electronically Signed: Mimi Camara MD at 12:26 EST Reading Location ID and State: [facility] / [place] Tel , Service support , Brain MRI 05/02/22 10:28 IMPRESSION: No evidence for acute infarct. Chronic involutional and white matter changes. Old lacunar infarct in the right basal ganglia. Electronically Signed: Mimi Camara MD at 12:31 EST Reading Location ID and State: [facility] / [place] Tel , Service support , Rhythm Strip Rhythm Strip: A-fib Physical Exam Narrative Physical exam: General: Alert, Oriented x3, Cooperative, No apparent distress HEENT: Atraumatic Oral: Moist Mucosa Neck: Supple Lungs: Clear to auscultation Cardiovascular: HS I+II, regular, no murmurs Abdomen: Bowel Sounds Present, Soft, Non Tender Extremities: No edema Skin: No rashes, No breakdown Neurological: Grossly intact Psych/Mental Status: Appropriate Assessment & Plan Assessment/Plan (1) Non-ST elevation MA (NSTEMI): (2) Confusion: PLAN: Plan 1.Acute non-STEMI, EKG shows no acute ST changes, Troponins appear to have plateaued, cardiology consulted Stress test planned in the a.m. Continue on Coreg, apixaban 2.Acute hypoxia, unclear etiology, patient is on 2 L of oxygen Admitting chest x-ray shows bilateral pulmonary infiltrates superimposed on chronic lung disease, left lateral costophrenic angle atelectasis/consolidation. Probably also secondary to fluid overload Rapid COVID-19 antigen test as well as respiratory panel are negative Continue IV IV Zosyn Continue to wean off oxygen 3.Gram-negative bacteremia, continue on IV Zosyn, follow-up on blood cultures Will discontinue IV vancomycin 4.Acute metabolic encephalopathy, unclear etiology, likely related to hypoxia, appears resolved CT of the brain as well as MRI of the brain has been unremarkable 5.Hypokalemia/hypophosphatemia/hypomagnesemia, replaced, recheck in a.m. 6 ESRD on hemodialysis, nephrology consulted Continue on calcitriol 7.Paroxysmal atrial fibrillation,rate controlled, Continue anticoagulation with apixaban, Coreg 8. DVT PPx- on apixaban Charges/Coding Visit Charges Inpatient E&M: 66716 Subs Hosp L3
[2022-05-02] MEDS: Carvedilol 6.25 MG Tablet PO (16:42)
[2022-05-02] MEDS: Albuterol 2.5 MG/3 ML VIAL.NEB. INHALATION (22:13)
[2022-05-03] VITALS (16 sets, daily range): BP systolic 82–118; BP diastolic 48–65; PULSE 87–99; RESP 18–20; TEMP 36.3–36.6; O2SAT 92–99; BMI 32.1
[2022-05-03 05:20] LABS: Mean Corpuscular Hgb 31.3 pg (27.0-32.0); Mean Corpuscular Volume 100.7 fL (80-94); Mean Platelet Vol. 10.7 fl (6.2-12.0); Platelet Count 115 K/mm3 (150-450); RBC Distribution Width CV 13.9 % (11.6-14.6); RBC Distribution Width SD 51.4 fl (35.1-43.9); Red Blood Count 2.88 M/mm3 (4.6-6.2); White Blood Count 17.6 K/mm3 (4.4-11.0)
[2022-05-03 05:55] LABS: Albumin, Serum 2.1 g/dL (3.2-5.0); BUN 78 mg/dL (7-18); BUN/Creat Ratio 14.2 RATIO (10-20); Calcium,Total 7.6 mg/dL (8.5-10.1); Chloride 104 mmol/L (98-107); Creatinine, Serum 5.49 mg/dL (0.70-1.30); EST Glomerular Filtration Rate 11 mL/min (>60); Est Glom Filt Rate - Afr Amer 13 mL/min (>60); Estimated Creatinine Clearance 11.63 ml/min; Glucose 139 mg/dL (74-106); Magnesium 2.3 mg/dL (1.6-2.6); Phosphorus 6.7 mg/dL (2.5-4.9); Potassium 3.9 mmol/L (3.5-5.1); Sodium Level 138 mmol/L (136-145)
--- NOTE | 2022-05-03 05:55 | EKG12_ITS ---
Test Reason : CP Blood Pressure : / mmHG Vent. Rate : 112 BPM Atrial Rate : 000 BPM P-R Int : 000 ms QRS Dur : 178 ms QT Int : 384 ms P-R-T Axes : 000 -81 058 degrees QTc Int : 524 ms Atrial fibrillation with rapid ventricular response Left axis deviation Right bundle branch block Abnormal ECG Confirmed by JANI BYERS, BOYD ([id number]), video news editor PASCUAL VEGA ([id number]) on 05/05/2022 1:18:24 PM Referred By: Confirmed By:BOYD GUNTER MD
[2022-05-03] MEDS: Carvedilol 6.25 MG Tablet PO (10:25)
[2022-05-03] MEDS: Ascorbic Acid 500 MG Tablet PO (10:25)
[2022-05-03] MEDS: Folic Acid/Vitamin B Comp W-C 1 Capsule 1 CAP PO (10:25)
[2022-05-03] MEDS: APIXABAN 2.5 MG TABLET PO ×2 (10:26→21:00)
--- NOTE | 2022-05-03 11:38 | CON.PCM.RE_ITS ---
Assessment & Plan Assessment/Plan (1) ESRD (end stage renal disease) on dialysis: PLAN: dialysis TTS, next dialysis on Tuesday (2) Non-ST elevation PR (NSTEMI): PLAN: cardiology following (3) Generalized weakness: (4) Confusion: PLAN: resolved (5) Essential hypertension: PLAN: stable (6) Bladder cancer: (7) Iron deficiency anemia: PLAN: iv iron, cassy on dialysis. Stop oral iron (8) Pneumonia: PLAN: iv antibx renal dosed (9) Leukocytosis: PLAN: improving (10) Hyperphosphatemia: PLAN: due to replacement on admit by primary service. Low phos on admit due to recent dialysis. 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 He received full dialysis treatment on Tuesday. He was treated with iv antibiotics for pneumonia. WBC elevated at 21K on admission improved to 17K today. MRI head unremarkable for acute finding. Troponin level elevated. Cardiology consulted for NSTEMI. PT with right sided chest wall pain with deep inspiration on admit. Symptoms improved today. Respiratory panel, COVID negative. . [facility] Medical History Acute kidney injury Anemia Bladder cancer Bladder cancer CHF (congestive heart failure) CKD (chronic kidney disease) stage 5, GFR less than 15 ml/min Elevated troponin ESRD (end stage renal disease) Essential hypertension History of DVT (deep vein thrombosis) History of pulmonary embolism History of solitary pulmonary nodule HIT (heparin-induced thrombocytopenia) HLD (hyperlipidemia) Hyperparathyroidism Iron deficiency anemia Left upper chest discomfort Lower gastrointestinal bleeding Lymphoma Lymphoma Neutropenic fever Pancytopenia Paroxysmal A-fib Preop cardiovascular exam Pulmonary embolism Renal calculus Shortness of breath VTE (venous thromboembolism) Home Medications carvedilol 6.25 mg tablet 6.25 mg PO BID blood pressure 04/24/17 [History Last Taken 02/15/22] polyethylene glycol 3350 17 gram/dose oral powder 17 g PO DAILY PRN Constipation 07/02/20 [History Last Taken 02/14/22] vitamin B complex 1 tab PO DAILY SUPPLEMENT 07/02/20 [History Last Taken 02/15/22] cetirizine 10 mg capsule 10 mg PO DAILY #30 caps 07/04/20 [Rx Last Taken Unknown] ferrous sulfate 325 mg (65 mg iron) tablet 325 mg PO QODAY SUPPLEMENT #30 tabs 02/20/22 [Rx Last Taken 02/15/22] vitamin B complex and vitamin C no.20-folic acid 1 mg capsule (Virt-Caps) 1 cap PO DAILY #0 caps 02/23/22 [Rx Last Taken Unknown] ascorbic acid (vitamin C) 500 mg tablet 500 mg PO DAILY 03/12/22 [History Last Taken Unknown] magnesium hydroxide 400 mg/5 mL oral suspension (Milk of Magnesia) 30 ml PO Q4H PRN Constipation 03/12/22 [History Last Taken Unknown] apixaban 2.5 mg tablet (Eliquis) 2.5 mg PO BID #0 tabs 03/30/22 [Rx Last Taken Unknown] calcitriol 0.25 mcg capsule 0.25 mcg PO TUTHSA 05/01/22 [History Last Taken Unknown] Allergy/AdvReac Type Severity Reaction Status Date / Time enoxaparin [From Lovenox] Allergy Other Verified 05/01/22 16:11 heparin Allergy Other Verified 05/01/22 16:11 aspirin AdvReac Other Verified 05/01/22 16:11 Iodinated Contrast Media AdvReac OTHER Verified 05/01/22 16:11 [CONTRASTS] Family History Father Cancer lung Arrhythmia Brother Cancer Surgical History AV fistula H/O total cystectomy History of cataract extraction History of corrected cleft lip and palate History of tonsillectomy Social History household members: none Smoking Status: Former smoker how long ago did patient quit smokin alcohol intake: never substance use type: does not use caffeine: No ROS Review of Systems ROS Unobtainable: other Details: confusion on admit, mentation at baseline today Constitutional Constitutional: Reports chills, fever(s) and weakness Cardiovascular Cardiovascular: Reports chest pain, diaphoresis and dyspnea on exertion; Denies edema Respiratory/Chest Respiratory/Chest: Reports dyspnea on exertion, productive cough and shortness of breath at rest Gastrointestinal Gastrointestinal: Denies abdominal pain, anorexia or diarrhea Genitourinary Genitourinary: Denies difficulty urinating Musculoskeletal Musculoskeletal: Reports muscle weakness and other Neurologic Neurologic: Reports weakness; Denies numbness Psychiatric Psychiatric: Reports anxiety, confusion and depression Hematologic/Lymphatic Hematologic/Lymphatic: Reports anemia Physical Exam Const alert, oriented x3 and no apparent distress Resp no use of accessory muscles and clear to auscultation bilaterally Resp Narrative: on oxygen Cardio regular rate GI non-tender and non-distended Auscultation: normoactive bowel sounds Palpation: soft Extremity no clubbing, cyanosis or edema General Extremity: AV fistula Skin Skin Narrative: ecchymosis over AVF Neuro CN's II-XII intact bilaterally Sensorium / Orientation: awake and alert Psych cooperative Mood & Affect: anxious Lab / Micro Data Result Diagrams: 05/03/22 04:43 05/03/22 04:43 Labs: Laboratory Results - last 24 hr 05/03/22 04:43: WBC 17.6 H, RBC 2.88 L, Hgb 9.0 L, Hct 29.0 L, MCV 100.7 H, MCH 31.3, MCHC 31.0 L, RDW Std Deviation 51.4 H, RDW Coeff of Lencho 13.9, Plt Count 115 L, MPV 10.7 05/03/22 04:43: Sodium 138, Potassium 3.9, Chloride 104, Carbon Dioxide 24.0, BUN 78 H, Creatinine 5.49 H, Estim Creat Clear Calc 11.63, Est GFR (MDRD) Af Amer 13 L, Est GFR (MDRD) Non-Af 11 L, BUN/Creatinine Ratio 14.2, Glucose 139 H, Calcium 7.6 L, Phosphorus 6.7 H, Magnesium 2.3, Albumin 2.1 L Micro: Microbiology 05/01/22 17:15 Blood Culture (Wb) #2 - Left Forearm Blood Culture - Preliminary Gram negative bro 05/01/22 16:50 Blood Culture (Wb) - Venous Blood Culture - Preliminary GNR Poss Pseudomonas sp Rhythm Strip Rhythm Strip: A-fib Radiology Impression Head MRA 05/02/22 10:10 IMPRESSION: No evidence for large vessel occlusion or other focal vascular abnormality in the [place]. Electronically Signed: Mimi N. Jxa, MD at 12:26 EST , Brain MRI 05/02/22 10:28 IMPRESSION: No evidence for acute infarct. Chronic involutional and white matter changes. Old lacunar infarct in the right basal ganglia. Electronically Signed: Mimi Camara MD at 12:31 EST , Neck MRA 05/02/22 10:58 IMPRESSION: Bilateral carotid stenosis in the neck, obscured by motion artifact. Recommend ultrasound or CTA. Electronically Signed: Mimi Camara MD at 12:46 EST ,
--- NOTE | 2022-05-03 11:50 | CASEMGMT ---
RN MIREYA Face to Face with patient for initial transition planning/care coordination assessment. RN CM introduced self and role at [facility]. Patient lying in bed, alert and oriented. Patient willing to participate in assessment and is able to answer all questions appropriately. Care providers, pharmacy, and demographics verified. Patient wishes to discharge home, will monitor for possible HHC. Patient states he has no further needs or concerns at this time. CM to follow for discharge planning needs that may arise. PCP: Enrique Specialists: Neri production potter; Julián electric motor control assembler Preferred Pharmacy: [facility] Insurance: [employer] Prescription Benefit: yes Living Will/HPOA: Son, Paul Rizvi, HPOA LNOK: son Living Arrangements: Patient lives alone in a single story home with no steps to enter. Patient states he is independent at home Transportation: self, son DME/HHC: Patient states he has cane, rollator, and oxygen at home that he doesn't really wear at home through [employer] with portability. Patient has HD at [facility] on TTS at 1110. Patient has previously been to [facility]. Disposition Plan: Patient to discharge home with family support and follow-up plans in place. Will monitor progress with therapy for possible HHC at discharge. Ro NAIR, RN, CM
--- NOTE | 2022-05-03 12:25 | STRESSREP_ITS ---
Stress Test Report Date: 05-03-2022 Procedure: Pharmacologic stress nuclear imaging study Indications: Abnormal cardiac enzymes; non-ST segment elevation NE; atrial fibrillation; CHF; end-stage renal disease; chronic hemodialysis therapy Consent: Per the patient Procedure: The patient underwent pharmacologic (Regadenoson 0.4mg ) evaluation with a peak heart rate of 117 beats per minute (80%predicted maximal heart rate) and a resting blood pressure of 94/60 mmHg and a peak blood pressure of 94/60 mmHg. The baseline ECG demonstrated atrial fibrillation; right IVCD pattern; nonspecific ST/T wave abnormality. The peak pharmacologic ECG demonstrated no obvious ECG changes. There was a rare PVC during recovery. There was no complaint of chest discomfort during pharmacologic infusion or recovery. The examination was discontinued secondary to completion of protocol. Impression: 1. Pharmacologic (Regadenoson) evaluation 2. Peak pharmacologic ECG with continued atrial fibrillation with right IVCD pattern with nonspecific ST/T wave abnormality with no obvious ECG change. 3. There was a rare PVC during recovery. 4. Nuclear images pending Myocardial perfusion imaging study: Technique: The patient was injected with 9.6 millicuries of technetium 99m Cardiolite and subsequently rest SPECT Cardiolite nuclear imaging was obtained in the h orizontal long, vertical long, and short axis views. The patient underwent pharmacologic (Regadenoson) evaluation with a peak heart rate of 117 beats per minute (80% percent predicted maximal heart rate) and a resting blood pressure of 94/60 mmHg and a peak blood pressure of 94/60 mmHg. The patient was injected with 26.1 millicuries of technetium 99m Cardiolite and subsequently stress SPECT Cardiolite nuclear imaging was obtained in the horizontal long, vertical long, and short axis views. A gated Cardiolite study at peak stress was obtained. Interpretation: Rest and stress SPECT Cardiolite nuclear imaging status post realignment, normalization, and attenuation correction demonstrate relative uniform tracer uptake and myocardial perfusion appearing within normal limits. There is end sy stolic thickening and brightening. The gated Cardiolite study demonstrates myocardial thickening and inward wall motion. The reported LVEF is 55%. Impression: 1. Rest and stress SPECT Cardiolite nuclear imaging demonstrate relative uniform tracer uptake and myocardial perfusion appearing within normal limits. 2. The gated Cardiolite study reports an LVEF of 55%. This note was generated with [employer] software. It may contain incorrect words, spelling, and punctuation that were not noted in checking the note before signing.
--- NOTE | 2022-05-03 12:52 | PN.CARD_ITS ---
Subjective Subjective The patient appears to be awake and alert at this time with no ongoing acute complaints. He does comment that his blood pressures have been somewhat low. Objective Data Vital Signs: Vital Signs Temp Pulse Resp BP Pulse Ox O2 Del Method O2 Flow Rate 97.6 F L 99 18 101/62 93 Nasal Cannula 2 05/03/22 10:58 05/03/22 10:58 05/03/22 10:58 05/03/22 10:58 05/03/22 10:58 05/03/22 10:59 05/03/22 10:59 Oxygen Flow Rate (L/min) 2 Oxygen Delivery Method Nasal Cannula Weight: 217 lb 13.067 oz Body Mass Index (BMI) 32.1 Intake & Output: Intake and Output for Last 24 Hours 05/01/22 05/02/22 05/03/22 23:59 23:59 23:59 Intake Total 2705.33 / 2705.33 300 / 300 Balance 2705.33 / 2705.33 300 / 300 Lab / Micro Data Result Diagrams: 05/03/22 04:43 05/03/22 04:43 Labs: Laboratory Results - last 24 hr 05/03/22 04:43: WBC 17.6 H, RBC 2.88 L, Hgb 9.0 L, Hct 29.0 L, MCV 100.7 H, MCH 31.3, MCHC 31.0 L, RDW Std Deviation 51.4 H, RDW Coeff of Lencho 13.9, Plt Count 115 L, MPV 10.7 05/03/22 04:43: Sodium 138, Potassium 3.9, Chloride 104, Carbon Dioxide 24.0, BUN 78 H, Creatinine 5.49 H, Estim Creat Clear Calc 11.63, Est GFR (MDRD) Af Amer 13 L, Est GFR (MDRD) Non-Af 11 L, BUN/Creatinine Ratio 14.2, Glucose 139 H, Calcium 7.6 L, Phosphorus 6.7 H, Magnesium 2.3, Albumin 2.1 L Micro: Microbiology 05/01/22 17:15 Blood Culture (Wb) #2 - Left Forearm Blood Culture - Prelim inary Gram negative bro 05/01/22 16:50 Blood Culture (Wb) - Venous Blood Culture - Preliminary GNR Poss Pseudomonas sp Rhythm Strip Rhythm Strip: A-fib Cardiology Labs/Tests 05/03/22 04:43: WBC 17.6 H, RBC 2.88 L, Hgb 9.0 L, Hct 29.0 L, MCV 100.7 H, MCH 31.3, MCHC 31.0 L, Plt Count 115 L, MPV 10.7 05/03/22 04:43: Sodium 138, Potassium 3.9, Chloride 104, Carbon Dioxide 24.0, BUN 78 H, Creatinine 5.49 H, Est GFR (MDRD) Af Amer 13 L, Est GFR (MDRD) Non-Af 11 L, BUN/Creatinine Ratio 14.2, Glucose 139 H, Calcium 7.6 L, Phosphorus 6.7 H, Magnesium 2.3 Rhythm: Atrial fibrillation EKG: Atrial fibrillation; left axis deviation; right bundle branch block pattern; nonspecific ST/T wave abnormality ECHO: Pending Stress Test: Stress Test Report Date: 05-03-2022 Procedure: Pharmacologic stress nuclear imaging study? Indications: Abnormal cardiac enzymes; non-ST segment elevation PR; atrial fibrillation; CHF; end-stage renal disease; chronic hemodialysis therapy Consent: Per the patient Procedure: The patient underwent pharmacologic (Regadenoson 0.4mg ) evaluation with a peak heart rate of 117 beats per minute (80%predicted maximal heart rate) and a resting blood pressure of 94/60 mmHg and a peak blood pressure of 94/60 mmHg. The baseline ECG demonstrated atrial fibrillation; right IVCD pattern; nonspecific ST/T wave abnormality.? The peak pharmacologic ECG demonstrated no obvious ECG changes. There was a rare PVC during recovery. There was no complaint of chest discomfort during pharmacologic infusion or recovery. The examination was discontinued secondary to completion of protocol. Impression: 1.? Pharmacologic (Regadenoson) evaluation 2.? Peak pharmacologic ECG with continued atrial fibrillation with right IVCD pattern with nonspecific ST/T wave abnormality with no obvious ECG change. 3.? There was a rare PVC during recovery. 4.? Nuclear images pending Myocardial perfusion imaging study: Technique: The patient was injected with 9.6 millicuries of technetium 99m Cardiolite and subsequently rest SPECT Cardiolite nuclear imaging was obtained in the horizontal long, vertical long, and short axis views. The patient underwent pharmacologic (Regadenoson) evaluation with a peak heart rate of 117 beats per minute (80% percent predicted maximal heart rate) and a resting blood pressure of 94/60 mmHg and a peak blood pressure of 94/60 mmHg. The patient was injected with 26.1 millicuries of technetium 99m Cardiolite and subsequently stress SPECT Cardiolite nuclear imaging was obtained in the horizontal long, vertical long, and short axis views.? A gated Cardiolite study at peak stress was obtained. Interpretation: Rest and stress SPECT Cardiolite nuclear imaging status post realignment, normalization, and attenuation correction demonstrate relative uniform tracer uptake and myocardial perfusion appearing within normal limits.? There is end systolic thickening and brightening.? The gated Cardiolite study demonstrates myocardial thickening and inward wall motion.? The reported LVEF is 55%. Impression: 1.? Rest and stress SPECT Cardiolite nuclear imaging demonstrate relative uniform tracer uptake and myocardial perfusion appearing within normal limits. 2.? The gated Cardiolite study reports an LVEF of 55%. Physical Exam Const alert, oriented x3 and no apparent distress Orientation / Consciousness: awake HEENT normocephalic, head/scalp atraumatic and hearing grossly normal bilaterally Eyes PERRL, EOMs intact bilaterally, conjunctivae normal and no scleral icterus Neck full ROM, supple and no JVD Carotids: normal carotid upstroke Resp normal respiratory effort and clear to auscultation bilaterally Cardio Palpation: normal PMI Rhythm: abnormal rhythm irregularly irregular Heart Sounds: S1 normal and S2 normal GI normal to inspection, nondistended, normoactive bowel sounds Extremity no pedal edema Skin no rashes or lesions noted Psych mental status grossly normal Assessment & Plan Assessment/Plan (1) Non-STEMI (non-ST elevated myocardial infarction): PLAN: The patient has abnormal troponin I levels. They do not appear to have a classic rise and decline pattern. At the present time based upon his pharmacologic stress nuclear imaging study there did not appear to be any obvious evidence of previous myocardial injury/infarction or ongoing myocardial ischemia. Thus his troponin I levels may be a type II event brought out by noncardiovascular conditions. At the moment he appears without acute symptoms. His pharmacologic stress nuclear imaging study as noted. An echocardiogram is pending. He will continue medical therapy at this time. (2) Paroxysmal A-fib: PLAN: It appears he is remaining in atrial fibrillation. He will need to continue rate control therapy. He has been on anticoagulant therapy. If his blood pressures are low despite treatment of other noncardiac medical conditions and adjustment of dialysis volume then he may need to be considered for blood pressure supportive therapy such as midodrine to allow him to take medication such as his beta-marixa to assist with his rate control and any other cardiovascular concerns. If the patient cannot tolerate such medications and his blood pressure remains low making it difficult to advance his rate limiting medication then he may need to be considered for a tertiary care center evaluation by electrophysiology as to whether he is a candidate for an EPS/RFA of his atrial dysrhythmia or AV node ablation/permanent pacemaker placement. However, this would only be if he has no ongoing infectious related issues. (3) CHF (congestive heart failure): QUALIFIERS: Heart failure type: unspecified Heart failure chronicity: acute Qualified Code(s): I50.9 - Heart failure, unspecified PLAN: He does not appear to have evidence of acute on chronic diastolic mediated CHF at this time. He will need to continue medical therapy. (4) Aortic root dilatation: PLAN: Based upon previous transthoracic echocardiogram he had a mildly dilated aortic root. This will be reassessed with the echocardiogram which is pending. (5) HLD (hyperlipidemia): QUALIFIERS: Hyperlipidemia type: unspecified Qualified Code(s): E78.5 - Hyperlipidemia, unspecified PLAN: He should continue risk factor evaluation care as tolerated. (6) Essential hypertension: PLAN: His blood pressures appear to be recently been on the lower side. Its unclear whether this is related to a noncardiac issue such as concerns of i nfection versus concerns of shifting volume status. Again depending upon his clinical course he may need supportive therapy such as midodrine and attempt to allow him to continue medical therapy he needs for rate control. 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 He has been reported as not a candidate for heparin therapy or enoxaparin therapy. (8) Pneumonia: PLAN: There has been a concern as to whether or not he has demonstrated any underlying infectious related etiologies. It appears he is currently on IV antibiotics. (9) Encephalopathy: PLAN: He was reported as being somewhat encephalopathic upon admission to the hospital. At the moment he appears to be awake and alert. Its unclear whether this is related to changes in his overall condition especially noncardiac related issues with concerns of infection, lactic acidosis, shifting volume status, etc. Addt'l Comments This note was generated using a voice recognition system and there may be incorrect words, spelling or punctuation that were not noted when reviewing the office note prior to saving. Procedure Criteria Type of Procedure Procedure Type: Elective Elective Risks - COVID COVID Risk Discussion: The surgeon/proceduralist and patient have discussed in detail the risk of exposure to and/or potential harm posed by the COVID-19 virus with having a surgery/procedure at this time versus the risk of delaying the surgery/procedure. It is not possible to know either the risk of delaying the s urgery or procedure or chance of getting an infection with perfect accuracy, but a joint decision was made between the patient and the surgeon/proceduralist to proceed at this time with the scheduled surgery/procedure as indicated on the consent form.
--- NOTE | 2022-05-03 12:59 | CON.PCM.ID_ITS ---
Assessment & Plan Assessment/Plan (1) Bacteremia due to Gram-negative bacteria: PLAN: Pseudomonas-like so far. Suspected source pneumonia. Cont zosyn. Depending on susceptibilities, could be discharged on po cipro or iv cefepime dosed with HD. Will follow, thank you (2) ESRD (end stage renal disease) on dialysis: (3) Pneumonia: HPI Consult Data Date of Consult: 05/03/22 HPI Narrative Reason for Consultation: bacteremia HPI Narrative: RIA MARIANO, is a 76 M with ESRD, HD TTS via L chest permacath and RUE fistula, presented 05/01 with hypoxia and confusion. Had not been feeling well for week prior. C/o cough with sputum and dyspnea. Some headache. No n/v/d. Admitted on vanc/zosyn, now vanc stopped, feeling better. Full ROS performed and neg except as noted above. [facility] Medical History Acute kidney injury Anemia Bladder cancer Bladder cancer CHF (congestive heart failure) CKD (chronic kidney disease) stage 5, GFR less than 15 ml/min Elevated troponin ESRD (end stage renal disease) Essential hypertension History of DVT (deep vein thrombosis) History of pulmonary embolism History of solitary pulmonary nodule HIT (heparin-induced thrombocytopenia) HLD (hyperlipidemia) Hyperparathyroidism Iron deficiency anemia Left upper chest discomfort Lower gastrointestinal bleeding Lymphoma Lymphoma Neutropenic fever Pancytopenia Paroxysmal A-fib Preop cardiovascular exam Pulmonary embolism Renal calculus Shortness of breath VTE (venous thromboembolism) Home Medications carvedilol 6.25 mg tablet 6.25 mg PO BID blood pressure 04/24/17 [History Last Taken 02/15/22] polyethylene glycol 3350 17 gram/dose oral powder 17 g PO DAILY PRN Constipation 07/02/20 [History Last Taken 02/14/22] vitamin B complex 1 tab PO DAILY SUPPLEMENT 07/02/20 [History Last Taken 02/15/22] cetirizine 10 mg capsule 10 mg PO DAILY #30 caps 07/04/20 [Rx Last Taken Unknown] ferrous sulfate 325 mg (65 mg iron) tablet 325 mg PO QODAY SUPPLEMENT #30 tabs 02/20/22 [Rx Last Taken 02/15/22] vitamin B complex and vitamin C no.20-folic acid 1 mg capsule (Virt-Caps) 1 cap PO DAILY #0 caps 02/23/22 [Rx Last Taken Unknown] ascorbic acid (vitamin C) 500 mg tablet 500 mg PO DAILY 03/12/22 [History Last Taken Unknown] magnesium hydroxide 400 mg/5 mL oral suspension (Milk of Magnesia) 30 ml PO Q4H PRN Constipation 03/12/22 [History Last Taken Unknown] apixaban 2.5 mg tablet (Eliquis) 2.5 mg PO BID #0 tabs 03/30/22 [Rx Last Taken Unknown] calcitriol 0.25 mcg capsule 0.25 mcg PO TUTHSA 05/01/22 [History Last Taken Unknown] Allergy/AdvReac Type Severity Reaction Status Date / Time enoxaparin [From Lovenox] Allergy Other Verified 05/01/22 16:11 heparin Allergy Other Verified 05/01/22 16:11 aspirin AdvReac Other Verified 05/01/22 16:11 Iodinated Contrast Media AdvReac OTHER Verified 05/01/22 16:11 [CONTRASTS] Family History Father Cancer lung Arrhythmia Brother Cancer Surgical History AV fistula H/O total cystectomy History of cataract extraction History of corrected cleft lip and palate History of tonsillectomy Social History household members: none Smoking Status: Former smoker how long ago did patient quit smokin alcohol intake: never substance use type: does not use caffeine: No Physical Exam Const alert, oriented x3 and no apparent distress General Appearance: cooperative HEENT normocephalic and head/scalp atraumatic Eyes PERRL and EOMs intact bilaterally Neck supple and No nodes Resp normal air movement and clear to auscultation bilaterally Resp Narrative: clear anteriorally Cardio regular rate and regular rhythm GI soft to palpation, non-tender and non-distended Extremity General Extremity: Negative for edema Skin no rashes or lesions noted Neuro CN's II-XII intact bilaterally Lab / Micro Data Attestation: I reviewed the patient's lab results. Result Diagrams: 05/03/22 04:43 05/03/22 04:43 Labs: Laboratory Results - last 24 hr 05/03/22 04:43: WBC 17.6 H, RBC 2.88 L, Hgb 9.0 L, Hct 29.0 L, MCV 100.7 H, MCH 31.3, MCHC 31.0 L, RDW Std Deviation 51.4 H, RDW Coeff of Lencho 13.9, Plt Count 115 L, MPV 10.7 05/03/22 04:43: Sodium 138, Potassium 3.9, Chloride 104, Carbon Dioxide 24.0, BUN 78 H, Creatinine 5.49 H, Estim Creat Clear Calc 11.63, Est GFR (MDRD) Af Amer 13 L, Est GFR (MDRD) Non-Af 11 L, BUN/Creatinine Ratio 14.2, Glucose 139 H, Calcium 7.6 L, Phosphorus 6.7 H, Magnesium 2.3, Albumin 2.1 L Micro: Microbiology 05/01/22 17:15 Blood Culture (Wb) #2 - Left Forearm Blood Culture - Preliminary Gram negative bro 05/01/22 16:50 Blood Culture (Wb) - Venous Blood Culture - Preliminary GNR Poss Pseudomonas sp Rhythm Strip Rhythm Strip: A-fib
--- NOTE | 2022-05-03 13:43 | CASEMGMT ---
Call from [facility] and they are faxing pt's run orders to PCU. Pt normally runs TTS at 1110 and Kennedy would like updated in the morning whether pt will be coming in or not tomorrow. Octavia GENTILE CM
--- NOTE | 2022-05-03 14:44 | PCM.PN.HOSP ---
Subjective Subjective Patient reports he is overall feeling better. Still requiring oxygen which is not baseline for him however case management believes that he is ordered 2 L at home. We will check on this to see if it is just a compliance issue. Sats are currently 97% on 2 L. Nursing is planning to wean. Blood cultures show growth with suspected Pseudomonas chest x-ray is suggestive of infiltrate therefore bacteremia related to pulmonary infection is suspected. Objective Data Objective Data Vital Signs: Vital Signs Temp Pulse Resp BP Pulse Ox O2 Del Method O2 Flow Rate 97.3 F L 89 20 H 100/50 L 97 Nasal Cannula 2 05/03/22 13:00 05/03/22 13:00 05/03/22 13:00 05/03/22 13:00 05/03/22 13:00 05/03/22 13:00 05/03/22 13:55 Oxygen Flow Rate (L/min) 2 Oxygen Delivery Method Nasal Cannula Weight: 98.8 kg Body Mass Index (BMI) 32.1 Intake & Output: Intake and Output for Last 24 Hours 05/01/22 05/02/22 05/03/22 23:59 23:59 23:59 Intake Total 2705.33 / 2705.33 300 / 300 Balance 2705.33 / 2705.33 300 / 300 Lab / Micro Data Result Diagrams: 05/03/22 04:43 05/03/22 04:43 Labs: Laboratory Results - last 24 hr 05/03/22 04:43: WBC 17.6 H, RBC 2.88 L, Hgb 9.0 L, Hct 29.0 L, MCV 100.7 H, MCH 31.3, MCHC 31.0 L, RDW Std Deviation 51.4 H, RDW Coeff of Lencho 13.9, Plt Count 115 L, MPV 10.7 05/03/22 04:43: Sodium 138, Potassium 3.9, Chloride 104, Carbon Dioxide 24.0, BUN 78 H, Creatinine 5.49 H, Estim Creat Clear Calc 11.63, Est GFR (MDRD) Af Amer 13 L, Est GFR (MDRD) Non-Af 11 L, BUN/Creatinine Ratio 14.2, Glucose 139 H, Calcium 7.6 L, Phosphorus 6.7 H, Magnesium 2.3, Albumin 2.1 L Micro: Microbiology 05/01/22 17:15 Blood Culture (Wb) #2 - Left Forearm Blood Culture - Preliminary Gram negative bro 05/01/22 16:50 Blood Culture (Wb) - Venous Blood Culture - Preliminary GNR Poss Pseudomonas sp 05/01/22 18:25 Mucosa - Nasopharyngeal Respiratory Panel (PCR) - Final 05/01/22 16:30 Nasal Secretion SARS-CoV-2 & FLU Antigen (Rapid) - Final Rhythm Strip Rhythm Strip: A-fib Physical Exam Const alert, oriented x3 and well nourished Constitutional Narrative: Very pleasant, obese, elderly white male sitting up in a chair at the bedside, nursing at bedside, patient appears comfortable nontoxic, patient singing intermittently HEENT head/scalp atraumatic and moist oral mucous membranes HEENT Narrative: Dentition is poor, Mallampati is 3, no thrush Head and Scalp: normocephalic Eyes PERRL and EOMs intact bilaterally; Negative for conjunctivae normal Eyes Narrative: Conjunctiva are slightly pale, no scleral icterus Resp normal respiratory effort, no retractions and no use of accessory muscles Resp Narrative: Diffusely diminished with few crackles at bilateral bases Auscultation: crackles; Negative for rhonchi or wheezes Cardio regular rate, S1 normal heart sound, S2 normal heart sound, no murmurs, no rub, no gallops and no clicks Cardio Narrative: Irregular rhythm GI normal to inspection, nondistended, normoactive bowel sounds, soft to palpation and non-tender Extremity no clubbing, cyanosis or edema Extremity Narrative: 2+ pedal pulses Skin Skin Narrative: Dialysis catheter left chest-clean dry and dressing intact, med port right chest-not accessed Neuro oriented x3, CN's II-XII intact bilaterally, moves all extremities and no focal motor deficits Psych affect normal Psych Narrative: Very pleasant and appropriately interactive Assessment & Plan Assessment/Plan (1) Bacteremia due to Gram-negative bacteria: (2) Hyperphosphatemia: (3) Leukocytosis: (4) Pneumonia: (5) Non-ST elevation MS (NSTEMI): (6) Generalized weakness: (7) Encephalopathy: (8) Lactic acidosis: PLAN: Plan Acute hypoxia secondary to pseudomonal pneumonia -Remains on 2 L of oxygen however her sats are 97% -Wean oxygen as able -COVID-19 and respiratory panel are negative -Continue IV antibiotics Pseudomonas bacteremia -Continue Zosyn -Monitor for sensitivities -ID consultation for outpatient recommendations given complex nature of patient care with tunneled dialysis catheter and med port in place Lactic acidosis -Resolved -Suspect related to bacteremia and hypoxia on presentation Metabolic encephalopathy -Resolved -CT negative on admission for any acute abnormalities Hypophosphatemia -Nephrology suspects is related to Phos replacement on admission and recommends against replacement the future NSTEMI type II -Suspect this was related to metabolic demands and hypoxia -Stress test done and a negative for any inducible ischemia -Echocardiogram done and showed EF of 60% with biatrial enlargement (moderate), mild mitral valve insufficiency, right ventricular systolic pressure of 39 mmHg and a calcific aortic root -Continue chronic medications -Cardiology is following End-stage renal disease-HD dependent -Per patient they were transitioning from his dialysis catheter to his fistula -Patient indicates fistula has been working well -Would remove tunneled dialysis catheter as soon as possible -Nephrology following -Continue calcitriol -HD is currently TTS Paroxysmal A. fib with RVR -Continue home carvedilol--> blood pressures are somewhat borderline however it looks as if he he may have had borderline blood pressure since the initiation of dialysis -Continue to monitor -Heart rates are currently controlled -Continue home Eliquis Mild aortic root dilation -Outpatient follow-up DVT prophylaxis -Continue Eliquis CODE STATUS - full code Charges/Coding Visit Charges Inpatient E&M: 55933 Subs Hosp L2
[2022-05-04] VITALS (19 sets, daily range): BP systolic 89–113; BP diastolic 51–71; PULSE 68–106; RESP 16–18; TEMP 35.9–36.8; O2SAT 2–99
[2022-05-04 05:51] LABS: Absolute Lymphocyte Count 0.63 X10^3/uL (0.83-4.51); Absolute Neutrophil Count 10.7 X10^3/uL (2.0-7.7); Basophil# 0.02 X10^3/uL; Basophil% 0.2 % (0-1); Eosinophil# 0.22 X10^3/uL; Eosinophils% 1.8 % (0-5); Hematocrit 27.8 % (40-54); Lymphocyte # 0.63 X10^3/ul (0.83-4.51); Lymphocyte % 5.1 % (19-41); Mean Corp Hgb Conc 32.4 g/dL (32-36); Mean Corpuscular Hgb 32.5 pg (27.0-32.0); Mean Corpuscular Volume 100.4 fL (80-94); Mean Platelet Vol. 10.5 fl (6.2-12.0); Monocyte# 0.66 X10^3/uL; Monocyte% 5.4 % (0-10); NRBC Flagged by Analyzer 0 % (0-5); Neutrophil # 10.67 X10^3/uL (2.7-7.7); Neutrophil % 86.6 % (47-70); Platelet Count 122 K/mm3 (150-450); RBC Distribution Width CV 13.8 % (11.6-14.6); RBC Distribution Width SD 51.5 fl (35.1-43.9); Red Blood Count 2.77 M/mm3 (4.6-6.2); White Blood Count 12.3 K/mm3 (4.4-11.0)
[2022-05-04 06:24] LABS: Anion Gap 12 (5-15); BUN 100 mg/dL (7-18); BUN/Creat Ratio 16.2 RATIO (10-20); Calcium,Total 7.3 mg/dL (8.5-10.1); Chloride 102 mmol/L (98-107); Creatinine, Serum 6.16 mg/dL (0.70-1.30); EST Glomerular Filtration Rate 10 mL/min (>60); Est Glom Filt Rate - Afr Amer 12 mL/min (>60); Estimated Creatinine Clearance 10.36 ml/min; Glucose 103 mg/dL (74-106); Magnesium 2.7 mg/dL (1.6-2.6); Potassium 4.2 mmol/L (3.5-5.1); Sodium Level 136 mmol/L (136-145)
--- NOTE | 2022-05-04 07:54 | PCM.PN.CARD ---
Subjective Subjective The patient is awake and alert this morning. He denies any ongoing chest discomfort or difficulty breathing at the present time. Objective Data Vital Signs: Vital Signs Temp Pulse Resp BP Pulse Ox O2 Del Method O2 Flow Rate 96.6 F L 88 16 104/61 96 Nasal Cannula 2 05/04/22 05:07 05/04/22 05:07 05/04/22 05:07 05/04/22 05:07 05/04/22 05:07 05/04/22 05:07 05/04/22 05:07 Oxygen Flow Rate (L/min) 2 Oxygen Delivery Method Nasal Cannula Weight: 217 lb 13.067 oz Body Mass Index (BMI) 32.1 Intake & Output: Intake and Output for Last 24 Hours 05/02/22 05/03/22 05/04/22 23:59 23:59 23:59 Intake Total 2705.33 / 2705.33 800 / 800 50 / 50 Balance 2705.33 / 2705.33 800 / 800 50 / 50 Lab / Micro Data Result Diagrams: 05/04/22 05:33 05/04/22 05:33 Labs: Laboratory Results - last 24 hr 05/04/22 05:33: WBC 12.3 H, RBC 2.77 L, Hgb 9.0 L, Hct 27.8 L, MCV 100.4 H, MCH 32.5 H, MCHC 32.4, RDW Std Deviation 51.5 H, RDW Coeff of Lencho 13.8, Plt Count 122 L, MPV 10.5, Immature Gran % (Auto) 0.900, Neut % (Auto) 86.6 H, Lymph % (Auto) 5.1 L, [place] % (Auto) 5.4, Eos % (Auto) 1.8, Baso % (Auto) 0.2, Absolute Neuts (auto) 10.7 H, Absolute Lymphs (auto) 0.63 L, Nucleated RBC % 0 05/04/22 05:33: Sodium 136, Potassium 4.2, Chloride 102, Carbon Dioxide 22.0, Anion Gap 12, BUN 100 H, Creatinine 6.16 H, Estim Creat Clear Calc 10.36, Est GFR (MDRD) Af Amer 12 L, Est GFR (MDRD) Non-Af 10 L, BUN/Creatinine Ratio 16.2, Glucose 103, Calcium 7.3 L, Phosphorus 7.0 H, Magnesium 2.7 H Micro: Microbiology 05/01/22 17:15 Blood Culture (Wb) #2 - Left Forearm Blood Culture - Final Gram negative bro 05/01/22 16:50 Blood Culture (Wb) - Venous Blood Culture - Preliminary Pseudomonas aeroginosa Rhythm Strip Rhythm Strip: A-fib Cardiology Labs/Tests 05/04/22 05:33: WBC 12.3 H, RBC 2.77 L, Hgb 9.0 L, Hct 27.8 L, MCV 100.4 H, MCH 32.5 H, MCHC 32.4, Plt Count 122 L, MPV 10.5, Immature Gran % (Auto) 0.900, Neut % (Auto) 86.6 H, Lymph % (Auto) 5.1 L, [place] % (Auto) 5.4, Eos % (Auto) 1.8, Baso % (Auto) 0.2, Absolute Neuts (auto) 10.7 H, Nucleated RBC % 0 05/04/22 05:33: Sodium 136, Potassium 4.2, Chloride 102, Carbon Dioxide 22.0, Anion Gap 12, BUN 100 H, Creatinine 6.16 H, Est GFR (MDRD) Af Amer 12 L, Est GFR (MDRD) Non-Af 10 L, BUN/Creatinine Ratio 16.2, Glucose 103, Calcium 7.3 L, Phosphorus 7.0 H, Magnesium 2.7 H Rhythm: Atrial fibrillation; 5 beat nonsustained wide-complex tachycardia with a differential diagnosis being aberrancy versus nonsustained VT ECHO: Left ventricle: LVEF 60% Moderate biatrial enlargement Mild MR Trivial TR Mild diffuse aortic valve thickening Mild diffuse aortic valve calcification Trivial IA Calcified aortic root Diastolic function considered indeterminate Small mobile echodensity noted in the right atrium compatible with a CVC/hemodialysis catheter Please see official report Stress Test: Stress Test Report Date: 05-03-2022 Procedure: Pharmacologic stress nuclear imaging study? Indications: Abnormal cardiac enzymes; non-ST segment elevation [place]; atrial fibrillation; CHF; end-stage renal disease; chronic hemodialysis therapy Consent: Per the patient Procedure: The patient underwent pharmacologic (Regadenoson 0.4mg ) evaluation with a peak heart rate of 117 beats per minute (80%predicted maximal heart rate) and a resting blood pressure of 94/60 mmHg and a peak blood pressure of 94/60 mmHg. The baseline ECG demonstrated atrial fibrillation; right IVCD pattern; nonspecific ST/T wave abnormality.? The peak pharmacologic ECG demonstrated no obvious ECG changes. There was a rare PVC during recovery. There was no complaint of chest discomfort during pharmacologic infusion or recovery. The examination was discontinued secondary to completion of protocol. Impression: 1.? Pharmacologic (Regadenoson) evaluation 2.? Peak pharmacologic ECG with continued atrial fibrillation with right IVCD pattern with nonspecific ST/T wave abnormality with no obvious ECG change. 3.? There was a rare PVC during recovery. 4.? Nuclear images pending Myocardial perfusion imaging study: Technique: The patient was injected with 9.6 millicuries of technetium 99m Cardiolite and subsequently rest SPECT Cardiolite nuclear imaging was obtained in the horizontal long, vertical long, and short axis views. The patient underwent pharmacologic (Regadenoson) evaluation with a peak heart rate of 117 beats per minute (80% percent predicted maximal heart rate) and a resting blood pressure of 94/60 mmHg and a peak blood pressure of 94/60 mmHg. The patient was injected with 26.1 millicuries of technetium 99m Cardiolite and subsequently stress SPECT Cardiolite nuclear imaging was obtained in the horizontal long, vertical long, and short axis views.? A gated Cardiolite study at peak stress was obtained. Interpretation: Rest and stress SPECT Cardiolite nuclear imaging status post realignment, normalization, and attenuation correction demonstrate relative uniform tracer uptake and myocardial perfusion appearing within normal limits.? There is end systolic thickening and brightening.? The gated Cardiolite study demonstrates myocardial thickening and inward wall motion.? The reported LVEF is 55%. Impression: 1.? Rest and stress SPECT Cardiolite nuclear imaging demonstrate relative uniform tracer uptake and myocardial perfusion appearing within normal limits. 2.? The gated Cardiolite study reports an LVEF of 55%. Physical Exam Const alert, oriented x3 and well nourished Constitutional Narrative: Very pleasant, obese, elderly white male sitting up in a chair at the bedside, nursing at bedside, patient appears comfortable nontoxic, patient singing intermittently Orientation / Consciousness: awake HEENT normocephalic, head/scalp atraumatic and hearing grossly normal bilaterally HEENT Narrative: Dentition is poor, Mallampati is 3, no thrush Head and Scalp: normocephalic Eyes PERRL, EOMs intact bilaterally, conjunctivae normal and no scleral icterus Eyes Narrative: Conjunctiva are slightly pale, no scleral icterus Neck full ROM, supple and no JVD Resp normal respiratory effort and no retractions Resp Narrative: Diffusely diminished with few crackles at bilateral bases Auscultation: wheezes inspiratory wheezes Cardio regular rate, S1 normal heart sound and S2 normal heart sound Cardio Narrative: Irregular rhythm Rhythm: abnormal rhythm irregularly irregular GI normal to inspection, nondistended, normoactive bowel sounds, soft to palpation and non-tender Extremity no clubbing, cyanosis or edema Extremity Narrative: 2+ pedal pulses Skin Skin Narrative: Dialysis catheter left chest-clean dry and dressing intact, med port right chest-not accessed Neuro oriented x3 and moves all extremities Psych affect normal Psych Narrative: Very pleasant and appropriately interactive Assessment & Plan Assessment/Plan (1) Non-STEMI (non-ST elevated myocardial infarction): PLAN: The patient has abnormal troponin I levels. They do not appear to have a classic rise and decline pattern. The echocardiogram demonstrated overall preserved left ventricular wall motion and systolic function. At the present time based upon his pharmacologic stress nuclear imaging study there did not appear to be any obvious evidence of previous myocardial injury/infarction or ongoing myocardial ischemia. Thus his troponin I levels may be a type II event brought out by noncardiovascular conditions potentially related to his underlying concerns of pneumonia, lactic acidosis, transient hypotension, etc. At the moment he appears without acute symptoms. From a cardiac standpoint he is continuing medical management. There are no immediate plans for additional cardiovascular diagnostic studies/intervention. (2) Paroxysmal A-fib: PLAN: It appears he is remaining in atrial fibrillation. He will need to continue rate control therapy. He has been on anticoagulant therapy. If his blood pressures are low despite treatment of other noncardiac medical conditions such as his pneumonia and adjustment of dialysis volume then he may need to be considered for blood pressure supportive therapy such as midodrine to allow him to take medication such as his beta-marixa to assist with his rate control and any other cardiovascular concerns. If the patient cannot tolerate such medications and his blood pressure remains low making it difficult to advance his rate limiting medication then he may need to be considered for a tertiary care center evaluation by electrophysiology as to whether he is a candidate for an EPS/RFA of his atrial dysrhythmia or AV node ablation/permanent pacemaker placement. However, this would only be if he has no ongoing infectious related issues. (3) CHF (congestive heart failure): QUALIFIERS: Heart failure type: unspecified Heart failure chronicity: acute Qualified Code(s): I50.9 - Heart failure, unspecified PLAN: He does not appear to have evidence of acute on chronic diastolic mediated CHF at this time. He will need to continue medical therapy. (4) Aortic root dilatation: PLAN: Based upon previous transthoracic echocardiogram he had a mildly dilated aortic root. On the current echocardiogram his aortic root was not reported as dilated. (5) HLD (hyperlipidemia): QUALIFIERS: Hyperlipidemia type: unspecified Qualified Code(s): E78.5 - Hyperlipidemia, unspecified PLAN: He should continue risk factor evaluation care as tolerated. (6) Essential hypertension: PLAN: His blood pressures appear to be recently been on the lower side. Its unclear whether this is related to a noncardiac issue such as concerns of infection versus concerns of shifting volume status. Again depending upon his clinical course he may need supportive therapy such as midodrine and attempt to allow him to continue medical therapy he needs for rate control. 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 He has been reported as not a candidate for heparin therapy or enoxaparin therapy. (8) Pneumonia: PLAN: There has been a concern as to whether or not he has demonstrated any underlying infectious related etiologies. It appears he is currently on IV antibiotics. (9) Encephalopathy: PLAN: He was reported as being somewhat encephalopathic upon admission to the hospital. Its unclear whether this is related to changes in his overall condition especially noncardiac related issues with concerns of infection, lactic acidosis, shifting volume status, etc. At the moment he appears to be awake and alert. He will continue evaluation care per internal medicine. Addt'l Comments This note was generated using a voice recognition system and there may be incorrect words, spelling or punctuation that were not noted when reviewing the office note prior to saving. Procedure Criteria Type of Procedure Procedure Type: Elective Elective Risks - COVID COVID Risk Discussion: The surgeon/proceduralist and patient have discussed in detail the risk of exposure to and/or potential harm posed by the COVID-19 virus with having a surgery/procedure at this time versus the risk of delaying the surgery/procedure. It is not possible to know either the risk of delaying the surgery or procedure or chance of getting an infection with perfect accuracy, but a joint decision was made between the patient and the surgeon/proceduralist to proceed at this time with the scheduled surgery/procedure as indicated on the consent form.
--- NOTE | 2022-05-04 10:11 | PCM.PN.ID ---
Physical Exam Narrative Feeling better, no fever, breathing better Const alert and no apparent distress Resp normal air movement and clear to auscultation bilaterally Cardio regular rate and regular rhythm GI soft to palpation, non-tender and non-distended Skin no rashes or lesions noted ID ID: Route of nutrition/ use of supplements: [] Nutritional Intake: [] IV Site: [] Harrison Catheter: [] Assessment & Plan Assessment/Plan (1) Bacteremia due to Gram-negative bacteria: PLAN: Pseudomonas (+) bcx. Suspected source pneumonia. Cont zosyn. Ok for discharge on po cipro 500mg daily (take dose after dialysis on HD days) for one more week. Last QTC around 440. Will check repeat bcx today. Will follow (2) ESRD (end stage renal disease) on dialysis: (3) Pneumonia:
--- NOTE | 2022-05-04 10:23 | NURSING ---
This RN taking over care of pt at this time.
--- NOTE | 2022-05-04 11:11 | PCM.PN.HOSP ---
Subjective Subjective Patient reports that he overall is feeling fairly well. States he has oxygen at home but does not wear it. Reports that he does not think he needs it however indicates that he was told upon a discharge from a hospitalization previously that he needed to wear it with exertion. Currently on dialysis. Objective Data Objective Data Vital Signs: Vital Signs Temp Pulse Resp BP Pulse Ox O2 Del Method O2 Flow Rate 98.3 F 68 18 99/69 95 Nasal Cannula 2 05/04/22 10:00 05/04/22 10:00 05/04/22 10:00 05/04/22 10:00 05/04/22 10:00 05/04/22 10:00 05/04/22 10:00 Oxygen Flow Rate (L/min) 2 Oxygen Delivery Method Nasal Cannula Weight: 98.8 kg Body Mass Index (BMI) 32.1 Intake & Output: Intake and Output for Last 24 Hours 05/02/22 05/03/22 05/04/22 23:59 23:59 23:59 Intake Total 2705.33 / 2705.33 800 / 800 50 / 50 Balance 2705.33 / 2705.33 800 / 800 50 / 50 Lab / Micro Data Result Diagrams: 05/04/22 05:33 05/04/22 05:33 Labs: Laboratory Results - last 24 hr 05/04/22 05:33: WBC 12.3 H, RBC 2.77 L, Hgb 9.0 L, Hct 27.8 L, MCV 100.4 H, MCH 32.5 H, MCHC 32.4, RDW Std Deviation 51.5 H, RDW Coeff of Lencho 13.8, Plt Count 122 L, MPV 10.5, Immature Gran % (Auto) 0.900, Neut % (Auto) 86.6 H, Lymph % (Auto) 5.1 L, [place] % (Auto) 5.4, Eos % (Auto) 1.8, Baso % (Auto) 0.2, Absolute Neuts (auto) 10.7 H, Absolute Lymphs (auto) 0.63 L, Nucleated RBC % 0 05/04/22 05:33: Sodium 136, Potassium 4.2, Chloride 102, Carbon Dioxide 22.0, Anion Gap 12, BUN 100 H, Creatinine 6.16 H, Estim Creat Clear Calc 10.36, Est GFR (MDRD) Af Amer 12 L, Est GFR (MDRD) Non-Af 10 L, BUN/Creatinine Ratio 16.2, Glucose 103, Calcium 7.3 L, Phosphorus 7.0 H, Magnesium 2.7 H Micro: Microbiology 05/01/22 16:50 Blood Culture (Wb) - Venous Blood Culture - Final Pseudomonas aeroginosa 05/01/22 17:15 Blood Culture (Wb) #2 - Left Forearm Blood Culture - Final Gram negative bro 05/01/22 18:25 Mucosa - Nasopharyngeal Respiratory Panel (PCR) - Final 05/01/22 16:30 Nasal Secretion SARS-CoV-2 & FLU Antigen (Rapid) - Final Rhythm Strip Rhythm Strip: A-fib Physical Exam Const alert, oriented x3, no apparent distress and well nourished Constitutional Narrative: Very pleasant, obese, elderly white male sitting up in his bed on dialysis, dialysis nursing at bedside, patient appears comfortable nontoxic General Appearance: cooperative HEENT normocephalic, head/scalp atraumatic and moist oral mucous membranes HEENT Narrative: Mallampati 2, dentition is poor, no thrush Head and Scalp: normocephalic Resp normal respiratory effort, no retractions, no use of accessory muscles and clear to auscultation bilaterally Resp Narrative: Diffusely diminished Auscultation: Negative for rhonchi or wheezes Cardio regular rate, S1 normal heart sound, S2 normal heart sound, no murmurs, no rub, no gallops and no clicks Cardio Narrative: Irregular rhythm GI normal to inspection, nondistended, normoactive bowel sounds, soft to palpation, non-tender and non-distended Extremity normal to inspection and no clubbing, cyanosis or edema Extremity Narrative: 2+ pedal pulses Skin Skin Narrative: Dialysis catheter left chest-clean dry and dressing intact, med port right chest-not accessed the fistula in the right upper extremity with positive thrill and bruit currently accessed with good flow Neuro oriented x3, moves all extremities and no focal motor deficits Speech: speech normal Psych affect normal Psych Narrative: Very pleasant and appropriately interactive Assessment & Plan Assessment/Plan (1) Bacteremia due to Gram-negative bacteria: (2) Hyperphosphatemia: (3) Leukocytosis: (4) Pneumonia: (5) Non-ST elevation [place] (NSTEMI): (6) Generalized weakness: (7) Encephalopathy: (8) Lactic acidosis: PLAN: Plan Acute hypoxia secondary to pseudomonal pneumonia -Remains on 2 L of oxygen however her sats are 97% -Wean oxygen as able -COVID-19 and respiratory panel are negative -Continue IV antibiotics -If unable to wean oxygen today we will perform ambulatory pulse ox tomorrow as discharge is anticipated in the next 24 hours Pseudomonas bacteremia -Continue Zosyn -Repeat blood cultures are pending -White count has almost normalized -Per documentation ID recommendations are for Cipro 500 mg after dialysis for 1 week after discharge -ID following and appreciate input Lactic acidosis -Resolved -Suspect related to bacteremia and hypoxia on presentation Metabolic encephalopathy -Resolved -CT negative on admission for any acute abnormalities Hypophosphatemia -Nephrology suspects is related to Phos replacement on admission and recommends against replacement the future -Unclear with dialysis today NSTEMI type II -Suspect this was related to metabolic demands and hypoxia -Stress test done and a negative for any inducible ischemia -Echocardiogram done and showed EF of 60% with biatrial enlargement (moderate), mild mitral valve insufficiency, right ventricular systolic pressure of 39 mmHg and a calcific aortic root -Continue chronic medications -Cardiology is following End-stage renal disease-HD dependent -Per patient they were transitioning from his dialysis catheter to his fistula -Patient indicates fistula has been working well -Would remove tunneled dialysis catheter as soon as possible--> current plan is for removal on May 26 per discussion with patient -Nephrology following -Continue calcitriol -HD is currently TTS Chronic anemia secondary to renal disease -Hemoglobin is stable at 9 Chronic thrombocytopenia -Patient has documented history of HIT however it does appear that his platelets are chronically low -Stable at this time Paroxysmal A. fib with RVR -Continue home carvedilol--> blood pressures are somewhat borderline however it looks as if he he may have had borderline blood pressure since the initiation of dialysis -Continue to monitor -Heart rates are currently controlled -Continue home Eliquis Mild aortic root dilation -Outpatient follow-up DVT prophylaxis -Continue Eliquis CODE STATUS - full code Charges/Coding Visit Charges Inpatient E&M: 89467 Subs Hosp L2
[2022-05-04] MEDS: Epoetin Alfa epbx 10,000 UNITS/ML 6000 UNIT IV (11:19)
--- NOTE | 2022-05-04 12:06 | PN.RENAL_ITS ---
Subjective Subjective seen on dialysis. Attempt 2-3L fluid removal as tolerated. Dyspneic with anxiety Objective Data Objective Data Vital Signs: Vital Signs Temp Pulse Resp BP Pulse Ox O2 Del Method O2 Flow Rate 98.3 F 68 18 99/69 95 Nasal Cannula 2 05/04/22 10:00 05/04/22 10:00 05/04/22 10:00 05/04/22 10:00 05/04/22 10:00 05/04/22 10:00 05/04/22 10:00 Oxygen Flow Rate (L/min) 2 Oxygen Delivery Method Nasal Cannula Weight: 98.8 kg Body Mass Index (BMI) 32.1 Intake & Output: Intake and Output for Last 24 Hours 05/02/22 05/03/22 05/04/22 23:59 23:59 23:59 Intake Total 2705.33 / 2705.33 800 / 800 50 / 50 Balance 2705.33 / 2705.33 800 / 800 50 / 50 Lab / Micro Data Result Diagrams: 05/04/22 05:33 05/04/22 05:33 Labs: Laboratory Results - last 24 hr 05/04/22 05:33: WBC 12.3 H, RBC 2.77 L, Hgb 9.0 L, Hct 27.8 L, MCV 100.4 H, MCH 32.5 H, MCHC 32.4, RDW Std Deviation 51.5 H, RDW Coeff of Lencho 13.8, Plt Count 122 L, MPV 10.5, Immature Gran % (Auto) 0.900, Neut % (Auto) 86.6 H, Lymph % (Auto) 5.1 L, [place] % (Auto) 5.4, Eos % (Auto) 1.8, Baso % (Auto) 0.2, Absolute Neuts (auto) 10.7 H, Absolute Lymphs (auto) 0.63 L, Nucleated RBC % 0 05/04/22 05:33: Sodium 136, Potassium 4.2, Chloride 102, Carbon Dioxide 22.0, Anion Gap 12, BUN 100 H, Creatinine 6.16 H, Estim Creat Clear Calc 10.36, Est GFR (MDRD) Af Amer 12 L, Est GFR (MDRD) Non-Af 10 L, BUN/Creatinine Ratio 16.2, Glucose 103, Calcium 7.3 L, Phosphorus 7.0 H, Magnesium 2.7 H Micro: Microbiology 05/01/22 16:50 Blood Culture (Wb) - Venous Blood Culture - Final Pseudomonas aeroginosa 05/01/22 17:15 Blood Culture (Wb) #2 - Left Forearm Blood Culture - Final Gram negative bro 05/01/22 18:25 Mucosa - Nasopharyngeal Respiratory Panel (PCR) - Final 05/01/22 16:30 Nasal Secretion SARS-CoV-2 & FLU Antigen (Rapid) - Final Rhythm Strip Rhythm Strip: A-fib Physical Exam Const alert and oriented x3 Resp clear to auscultation bilaterally Resp Narrative: tachypnea, anxious Cardio regular rate Extremity no clubbing, cyanosis or edema General Extremity: AV fistula Neuro Sensorium / Orientation: awake and alert Psych cooperative Mood & Affect: anxious Assessment & Plan Assessment/Plan (1) ESRD (end stage renal disease) on dialysis: PLAN: dialysis today (2) Non-ST elevation [place] (NSTEMI): PLAN: cardiology following (3) Generalized weakness: PLAN: chronic (4) Confusion: PLAN: resolved (5) Essential hypertension: PLAN: stable (6) Bladder cancer: (7) Iron deficiency anemia: PLAN: iv iron, cassy on dialysis. Stop oral iron (8) Pneumonia: PLAN: iv antibx renal dosed (9) Leukocytosis: PLAN: improving (10) Hyperphosphatemia: PLAN: due to replacement on admit by primary service. Low phos on admit due to recent dialysis. Avoid replacement in the future
--- NOTE | 2022-05-04 12:52 | DIALYSIS ---
Hemodialysis completed, 4 hours on a 3 K , fluid removed was 2600 ml. Left arm fistula was used without problems. Patient tolerated well.
--- NOTE | 2022-05-04 14:00 | NURSING ---
AM meds late d/t pt getting dialysis.
[2022-05-04] MEDS: Calcitriol 0.25 MCG Capsule PO (14:02)
[2022-05-04] MEDS: Folic Acid/Vitamin B Comp W-C 1 Capsule 1 CAP PO (14:02)
[2022-05-04] MEDS: Ascorbic Acid 500 MG Tablet PO (14:02)
[2022-05-04] MEDS: APIXABAN 2.5 MG TABLET PO ×2 (14:03→23:06)
[2022-05-04] MEDS: 0.9% Saline Lock 10 ML Syringe IV ×2 (14:03→23:16)
--- NOTE | 2022-05-04 15:36 | CHAPLAIN ---
Type of Pastoral Visit _x__ Initial Visit ___ Follow-up Visit ___ On-call Visit ___ General Patient Visit ___ Spiritual Assessment ___ Family Conference ___ Bereavement ___ Rapid Response ___ Code Blue ___ Other (describe below) Pastoral Care Referral From _x__ Patient ___ Family ___ Nurse ___ Physician ___ Trackwalker ___ Auto Dismantler ___ Other (describe below) Sacrament/Intervention _x__ Active listening ___ Anointing ___ Methodist ___ Bereavement ___ Communion _x__ Klarissa exploration ___ _x__ Life review _x__ Prayer ___ Reconciliation ___ Sacrament of Sick _x__ Supportive presence ___ Wedding ___ Other (describe below) Pastoral Comments patient is talkative but slow due to breathing difficulties; pt is reminded that he doesn't need to talk but he continues in the conversation; pt gives his adventism heritage and background; pt identifies himself as a 'saved believer in [place]' and wants to talk about that which is important to him; pt has been a long time and has a son and daughter in law that are supportive; pt welcomes prayer and future visits
--- NOTE | 2022-05-04 15:39 | CASEMGMT ---
This RN CM to room to discuss d/c plan and pt states he 'doesn't know if he wants HHC or if he feels safe going home.' Pt only wants to get back in bed at this time and FEATHER TRIMMER to bedside. Pt provided list of HHC and SNF providers including quality and resource use data and consistent with the pt's preferred geographic region, medical needs, and insurance network. CM to follow. SStaten RN CM
[2022-05-05] VITALS (10 sets, daily range): BP systolic 104–122; BP diastolic 45–62; PULSE 75–97; RESP 16–18; TEMP 36.4–37.1; O2SAT 86–96
[2022-05-05 05:07] LABS: Absolute Lymphocyte Count 0.58 X10^3/uL (0.83-4.51); Absolute Neutrophil Count 6.2 X10^3/uL (2.0-7.7); Basophil# 0.02 X10^3/uL; Basophil% 0.3 % (0-1); Eosinophil# 0.19 X10^3/uL; Eosinophils% 2.5 % (0-5); Hematocrit 29.4 % (40-54); Hemoglobin 9.4 g/dL (13.0-16.5); Lymphocyte # 0.58 X10^3/ul (0.83-4.51); Lymphocyte % 7.6 % (19-41); Mean Corpuscular Hgb 31.9 pg (27.0-32.0); Mean Corpuscular Volume 99.7 fL (80-94); Monocyte% 7.9 % (0-10); NRBC Flagged by Analyzer 0 % (0-5); Neutrophil # 6.17 X10^3/uL (2.7-7.7); Neutrophil % 81.2 % (47-70); POSITIVE DIFFERENTIAL YES; Platelet Count 133 K/mm3 (150-450); RBC Distribution Width CV 13.7 % (11.6-14.6); RBC Distribution Width SD 49.7 fl (35.1-43.9); Red Blood Count 2.95 M/mm3 (4.6-6.2); White Blood Count 7.6 K/mm3 (4.4-11.0)
[2022-05-05 05:08] LABS: Differential Indicated SCAN CRITERIA MET
[2022-05-05 05:27] LABS: Macrocytosis RARE; Platelet Estimate SLT DEC (ADEQ)
[2022-05-05 05:32] LABS: Anion Gap 11 (5-15); BUN 59 mg/dL (7-18); BUN/Creat Ratio 13.8 RATIO (10-20); Calcium,Total 7.5 mg/dL (8.5-10.1); Chloride 100 mmol/L (98-107); Creatinine, Serum 4.27 mg/dL (0.70-1.30); EST Glomerular Filtration Rate 15 mL/min (>60); Est Glom Filt Rate - Afr Amer 18 mL/min (>60); Estimated Creatinine Clearance 14.95 ml/min; Glucose 94 mg/dL (74-106); Potassium 4.2 mmol/L (3.5-5.1); Sodium Level 137 mmol/L (136-145)
--- NOTE | 2022-05-05 08:36 | CPS ---
patient weaned to 1 lpm.
--- NOTE | 2022-05-05 09:31 | PN.CARD_ITS ---
Subjective Subjective The patient appears to look somewhat better today and states he feels somewhat better today. Objective Data Vital Signs: Vital Signs Temp Pulse Resp BP Pulse Ox O2 Del Method O2 Flow Rate 97.5 F L 84 16 104/62 95 Nasal Cannula 2 05/05/22 04:00 05/05/22 04:00 05/05/22 04:00 05/05/22 04:00 05/05/22 08:35 05/05/22 08:35 05/05/22 08:35 Oxygen Flow Rate (L/min) 2 Oxygen Delivery Method Nasal Cannula Weight: 217 lb 13.067 oz Body Mass Index (BMI) 32.1 Intake & Output: Intake and Output for Last 24 Hours 05/03/22 05/04/22 05/05/22 23:59 23:59 23:59 Intake Total 800 / 800 540 / 540 50 / 50 Output Total 2600 / 2600 Balance 800 / 800 -2060 / -2060 50 / 50 Lab / Micro Data Result Diagrams: 05/05/22 04:29 05/05/22 04:29 Labs: Laboratory Results - last 24 hr 05/05/22 04:29: WBC 7.6, RBC 2.95 L, Hgb 9.4 L, Hct 29.4 L, MCV 99.7 H, MCH 31.9, MCHC 32.0, RDW Std Deviation 49.7 H, RDW Coeff of Lencho 13.7, Plt Count 133 L, MPV 11.0, Immature Gran % (Auto) 0.500, Neut % (Auto) 81.2 H, Lymph % (Auto) 7.6 L, [place] % (Auto) 7.9, Eos % (Auto) 2.5, Baso % (Auto) 0.3, Absolute Neuts (auto) 6.2, Absolute Lymphs (auto) 0.58 L, Nucleated RBC % 0, Platelet Estimate SLT DEC, Macrocytosis RARE 05/05/22 04:29: Sodium 137, Potassium 4.2, Chloride 100, Carbon Dioxide 26.0, Anion Gap 11, BUN 59 H, Creatinine 4.27 H, Estim Creat Clear Calc 14.95, Est GFR (MDRD) Af Amer 18 L, Est GFR (MDRD) Non-Af 15 L, BUN/Creatinine Ratio 13.8, Glucose 94, Calcium 7.5 L Micro: Microbiology 05/04/22 10:45 Blood Culture (Wb) - Dialysis/Fistula Blood Culture - Preliminary GNR Poss Pseudomonas sp 05/01/22 16:50 Blood Culture (Wb) - Venous Blood Culture - Final Pseudomonas aeroginosa 05/01/22 17:15 Blood Culture (Wb) #2 - Left Forearm Blood Culture - Final Gram negative bro Rhythm Strip Rhythm Strip: A-fib Cardiology Labs/Tests 05/05/22 04:29: WBC 7.6, RBC 2.95 L, Hgb 9.4 L, Hct 29.4 L, MCV 99.7 H, MCH 31.9, MCHC 32.0, Plt Count 133 L, MPV 11.0, Immature Gran % (Auto) 0.500, Neut % (Auto) 81.2 H, Lymph % (Auto) 7.6 L, Becker % (Auto) 7.9, Eos % (Auto) 2.5, Baso % (Auto) 0.3, Absolute Neuts (auto) 6.2, Nucleated RBC % 0 05/05/22 04:29: Sodium 137, Potassium 4.2, Chloride 100, Carbon Dioxide 26.0, Anion Gap 11, BUN 59 H, Creatinine 4.27 H, Est GFR (MDRD) Af Amer 18 L, Est GFR (MDRD) Non-Af 15 L, BUN/Creatinine Ratio 13.8, Glucose 94, Calcium 7.5 L Rhythm: Atrial fibrillation Radiography Diagnostic Testing: Radiology Impression Echocardiogram 05/01/22 20:52 Interpretation Summary Left ventricular systolic function is normal. The estimated ejection fraction is 60 %. The left atrium is moderately enlarged. The right atrium is moderately enlarged. Mild (1+) mitral valve insufficiency. Trivial tricuspid valve insufficiency. Mild diffuse aortic valve thickening. Mild diffuse aortic valve calcification. Trivial pulmonic valve insufficiency. Calcified aortic root. Right ventricular systolic pressure estimated to be 39 mmHg. Diastolic function is indeterminate. Comment: 2D echocardiographic images demonstrate a small mobile echodensity in the right atrium appearing compatible with the patient's central venous catheter/dialysis catheter. Ordering Physician: Ed Dinero Referring Physician: Martin Nunez Performed By: Georgia Yousif, [place], RVT Physical Exam Const alert, oriented x3, no apparent distress and well nourished Constitutional Narrative: Very pleasant, obese, elderly white male sitting up in a chair at the bedside, nursing at bedside, patient appears comfortable nontoxic, patient singing intermittently Orientation / Consciousness: awake HEENT normocephalic, head/scalp atraumatic and hearing grossly normal bilaterally HEENT Narrative: Dentition is poor, Mallampati is 3, no thrush Head and Scalp: normocephalic Eyes PERRL, EOMs intact bilaterally, conjunctivae normal and no scleral icterus Eyes Narrative: Conjunctiva are slightly pale, no scleral icterus Neck full ROM, supple and no JVD Resp normal respiratory effort and no retractions Resp Narrative: Diffusely diminished with few crackles at bilateral bases Auscultation: wheezes inspiratory wheezes Cardio regular rate, S1 normal heart sound and S2 normal heart sound Cardio Narrative: Irregular rhythm Rhythm: abnormal rhythm irregularly irregular GI normal to inspection, nondistended, normoactive bowel sounds, soft to palpation and non-tender Extremity no clubbing, cyanosis or edema Extremity Narrative: 2+ pedal pulses Skin Skin Narrative: Dialysis catheter left chest-clean dry and dressing intact, med port right chest-not accessed Neuro oriented x3 and moves all extremities Psych affect normal Psych Narrative: Very pleasant and appropriately interactive Assessment & Plan Assessment/Plan (1) Non-STEMI (non-ST elevated myocardial infarction): PLAN: The patient has abnormal troponin I levels. They do not appear to have a classic rise and decline pattern. The echocardiogram demonstrated overall preserved left ventricular wall motion and systolic function. At the present time based upon his pharmacologic stress nuclear imaging study there did not appear to be any obvious evidence of previous myocardial injury/infarction or ongoing myocardial ischemia. Thus his troponin I levels may be a type II event brought out by noncardiovascular conditions potentially related to his underlying concerns of pneumonia, lactic acidosis, transient hypotension, etc. At the moment he appears without acute symptoms. From a cardiac standpoint he is continuing medical management. There are no immediate plans for additional cardiovascular diagnostic studies/intervention. (2) Paroxysmal A-fib: PLAN: It appears he is remaining in atrial fibrillation. He will need to continue rate control therapy as tolerated based upon his comorbidities and vital signs. He has been on anticoagulant therapy. (3) CHF (congestive heart failure): QUALIFIERS: Heart failure type: unspecified Heart failure chronicity: acute Qualified Code(s): I50.9 - Heart failure, unspecified PLAN: He does not appear to have evidence of acute on chronic diastolic mediated CHF at this time. He will need to continue medical therapy. (4) Aortic root dilatation: PLAN: Based upon previous transthoracic echocardiogram he had a mildly dilated aortic root. On the current echocardiogram his aortic root was not reported as dilated. (5) HLD (hyperlipidemia): QUALIFIERS: Hyperlipidemia type: unspecified Qualified Code(s): E78.5 - Hyperlipidemia, unspecified PLAN: He should continue risk factor evaluation care as tolerated. (6) Essential hypertension: PLAN: His blood pressure appears to be somewhat improved overall. He will continue medical management. 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 He has been reported as not a candidate for heparin therapy or enoxaparin the [facility]. (8) Pneumonia: PLAN: There has been a concern as to whether or not he has demonstrated any underlying infectious related etiologies. It appears he is currently on IV antibiotics. (9) Encephalopathy: PLAN: He was reported as being somewhat encephalopathic upon admission to the hospital. Its unclear whether this is related to changes in his overall condition especially noncardiac related issues with concerns of infection, lactic acidosis, shifting volume status, etc. At the moment he appears to be awake and alert. He will continue evaluation care per internal medicine. Addt'l Comments At the present time he will continue conservative cardiovascular medical therapy with adjustment as tolerated based upon his comorbidities and vital signs. Otherwise there are no other cardiovascular diagnostic studies/intervention planned at this time. Thank you for allowing me to participate in the care of your patient. Please don't hesitate to call if any issues arise. This note was generated using a voice recognition system and there may be incorrect words, spelling or punctuation that were not noted when reviewing the office note prior to saving. Procedure Criteria Type of Procedure Procedure Type: Elective Elective Risks - COVID COVID Risk Discussion: The surgeon/proceduralist and patient have discussed in detail the risk of exposure to and/or potential harm posed by the COVID-19 virus with having a surgery/procedure at this time versus the risk of delaying the surgery/procedure. It is not possible to know either the risk of delaying the surgery or procedure or chance of getting an infection with perfect accuracy, but a joint decision was made between the patient and the surgeon/proceduralist to proceed at this time with the scheduled surgery/procedure as indicated on the consent form.
[2022-05-05] MEDS: APIXABAN 2.5 MG TABLET PO (10:34)
[2022-05-05] MEDS: Folic Acid/Vitamin B Comp W-C 1 Capsule 1 CAP PO (10:34)
[2022-05-05] MEDS: Carvedilol 6.25 MG Tablet PO ×2 (10:34→16:09)
[2022-05-05] MEDS: Ascorbic Acid 500 MG Tablet PO (10:34)
[2022-05-05] MEDS: 0.9% Saline Lock 10 ML Syringe IV (10:40)
--- NOTE | 2022-05-05 12:31 | PCM.PN.REN ---
Subjective Subjective blood cx positive for GNR from dialysis access yesterday. AFebrile with WBC improving. Arrange tunneled catheter removal today prior to discharge since able to use fistula with 16g needles yesterday Objective Data Objective Data Vital Signs: Vital Signs Temp Pulse Resp BP Pulse Ox O2 Del Method O2 Flow Rate 98.7 F 75 18 122/45 H 92 Nasal Cannula 2 05/05/22 10:30 05/05/22 10:30 05/05/22 10:30 05/05/22 10:30 05/05/22 10:30 05/05/22 10:30 05/05/22 10:30 Oxygen Flow Rate (L/min) [ 2 AMBULATING with Oxygen #1] Oxygen Flow Rate (L/min) [At 2 REST with Oxygen] Oxygen Flow Rate (L/min) 2 Oxygen Delivery Method Nasal Cannula Weight: 98.8 kg Body Mass Index (BMI) 32.1 Intake & Output: Intake and Output for Last 24 Hours 05/03/22 05/04/22 05/05/22 23:59 23:59 23:59 Intake Total 800 / 800 540 / 540 50 / 50 Output Total 2600 / 2600 Balance 800 / 800 -2060 / -2060 50 / 50 Lab / Micro Data Result Diagrams: 05/05/22 04:29 05/05/22 04:29 Labs: Laboratory Results - last 24 hr 05/05/22 04:29: WBC 7.6, RBC 2.95 L, Hgb 9.4 L, Hct 29.4 L, MCV 99.7 H, MCH 31.9, MCHC 32.0, RDW Std Deviation 49.7 H, RDW Coeff of Lencho 13.7, Plt Count 133 L, MPV 11.0, Immature Gran % (Auto) 0.500, Neut % (Auto) 81.2 H, Lymph % (Auto) 7.6 L, [place] % (Auto) 7.9, Eos % (Auto) 2.5, Baso % (Auto) 0.3, Absolute Neuts (auto) 6.2, Absolute Lymphs (auto) 0.58 L, Nucleated RBC % 0, Platelet Estimate SLT DEC, Macrocytosis RARE 05/05/22 04:29: Sodium 137, Potassium 4.2, Chloride 100, Carbon Dioxide 26.0, Anion Gap 11, BUN 59 H, Creatinine 4.27 H, Estim Creat Clear Calc 14.95, Est GFR (MDRD) Af Amer 18 L, Est GFR (MDRD) Non-Af 15 L, BUN/Creatinine Ratio 13.8, Glucose 94, Calcium 7.5 L Micro: Microbiology 05/04/22 10:45 Blood Culture (Wb) - Dialysis/Fistula Blood Culture - Preliminary GNR Poss Pseudomonas sp 05/01/22 16:50 Blood Culture (Wb) - Venous Blood Culture - Final Pseudomonas aeroginosa 05/01/22 17:15 Blood Culture (Wb) #2 - Left Forearm Blood Culture - Final Gram negative bro 05/01/22 18:25 Mucosa - Nasopharyngeal Respiratory Panel (PCR) - Final 05/01/22 16:30 Nasal Secretion SARS-CoV-2 & FLU Antigen (Rapid) - Final Radiography Diagnostic Testing: Radiology Impression Echocardiogram 05/01/22 20:52 Interpretation Summary Left ventricular systolic function is normal. The estimated ejection fraction is 60 %. The left atrium is moderately enlarged. The right atrium is moderately enlarged. Mild (1+) mitral valve insufficiency. Trivial tricuspid valve insufficiency. Mild diffuse aortic valve thickening. Mild diffuse aortic valve calcification. Trivial pulmonic valve insufficiency. Calcified aortic root. Right ventricular systolic pressure estimated to be 39 mmHg. Diastolic function is indeterminate. Comment: 2D echocardiographic images demonstrate a small mobile echodensity in the right atrium appearing compatible with the patient's central venous catheter/dialysis catheter. Ordering Physician: Ed Dinero Referring Physician: Martin Nunze Performed By: Georgia Yousif, [place], RVT Rhythm Strip Rhythm Strip: A-fib
--- NOTE | 2022-05-05 12:34 | DS.PCM_ITS ---
Providers Date of Admission: 05/01/22 Date of Discharge: 05/05/22 Primary Care Physician: Dr. Martin Nunez, Consultations 05/01/22 20:52 Consult: Cardiology Routine Consulting Provider: Rogelio Brewer Reason for Consult: Chest Pain EMERGENT Consult: No Notified: Yes Date Notified: 05/01/22 Time Notified: 18:56 Method of Notification: Text 05/02/22 04:00 Consult: Nephrology Routine Consulting Provider: Sonia He Reason for Consult: ESRD on HD, admitted w/ NSTEMI, Hypoxia EMERGENT Consult: No MD Notified: Yes Date Notified: 05/02/22 Time Notified: 06:45 Method of Notification: Text 05/03/22 07:50 Consult: Infectious Disease Routine Consulting Provider: Robbie Berry Reason for Consult: pseudomonas bacteremia EMERGENT Consult: No Notified: Yes Date Notified: 05/03/22 Time Notified: 07:50 Method of Notification: Text 05/05/22 12:30 Consult: General Surgery Routine Consulting Provider: Xenia Gilmore Reason for Consult: tunneled dialysis catheter removal for bacteremia EMERGENT Consult: No MD Notified: Yes Date Notified: 05/05/22 Time Notified: 12:30 Method of Notification: Verbal Reason For Visit: NSTEMI / ENCEPHALOPATHY Diagnosis Discharge Diagnosis (1) Non-STEMI (non-ST elevated myocardial infarction): Status: Deleted Code(s): I21.4 - Non-ST elevation (NSTEMI) myocardial infarction (2) Paroxysmal A-fib: Status: Acute Code(s): I48.0 - Paroxysmal atrial fibrillation (3) CHF (congestive heart failure): Status: Suspected Code(s): I50.9 - Heart failure, unspecified Qualifiers: Heart failure chronicity: acute Heart failure type: unspecified Qualified Code(s): I50.9 - Heart failure, unspecified (4) Aortic root dilatation: Status: Acute Code(s): I77.810 - Thoracic aortic ectasia (5) HLD (hyperlipidemia): Status: Acute Code(s): E78.5 - Hyperlipidemia, unspecified Qualifiers: Hyperlipidemia type: unspecified Qualified Code(s): E78.5 - H yperlipidemia, unspecified (6) Essential hypertension: Status: Acute Code(s): I10 - Essential (primary) hypertension (7) HIT (heparin-induced thrombocytopenia): Status: Acute Code(s): D75.82 - Heparin induced thrombocytopenia (HIT) (8) Pneumonia: Status: Acute Code(s): J18.9 - Pneumonia, unspecified organism (9) Encephalopathy: Status: Acute Code(s): G93.40 - Encephalopathy, unspecified Medications at Discharge Home Medications carvedilol 6.25 mg tablet 6.25 mg PO BID blood pressure 04/24/17 polyethylene glycol 3350 17 gram/dose oral powder 17 g PO DAILY PRN Constipation 07/02/20 vitamin B complex 1 tab PO DAILY SUPPLEMENT 07/02/20 cetirizine 10 mg capsule 10 mg PO DAILY #30 caps 07/04/20 ferrous sulfate 325 mg (65 mg iron) tablet 325 mg PO QODAY SUPPLEMENT #30 tabs 02/20/22 vitamin B complex and vitamin C no.20-folic acid 1 mg capsule (Virt-Caps) 1 cap PO DAILY #0 caps 02/23/22 ascorbic acid (vitamin C) 500 mg tablet 500 mg PO DAILY supplement 03/12/22 magnesium hydroxide 400 mg/5 mL oral suspension (Milk of Magnesia) 30 ml PO Q4H PRN Constipation 03/12/22 apixaban 2.5 mg tablet (Eliquis) 2.5 mg PO BID #0 tabs 03/30/22 calcitriol 0.25 mcg capsule 0.25 mcg PO TUTHSA supplement 05/01/22 ciprofloxacin HCl 500 mg tablet (Cipro) 500 mg PO DAILY #10 tabs 05/05/22 Hospital Course Operations - (Tunneled left dialysis catheter removal) Procedures 2-D Echocardiogram, Stress test and - (MRI of the brain and MRA of the head and neck) Summary of Care Provided Minutes Spent on Discharge: 39 Hospital Course: Mr. Rizvi is a 76-year-old white male who presented to the emergency department at [facility] on 05/01/2022 with shortness of breath and confusion. He was evidently noted that he was confused early on the day of presentation and he was found to be hypoxic with an oxygen saturation in the 80s after dialysis. He was sent to the emergency department and underwent a work-up that demonstrated a lactic acid of 2.6, troponin of 511, and a BNP of 746. COVID-19 and influenza panel were negative. His respiratory viral panel was negative. Upon examination by the hospitalist the patient remained confused and had some slurred speech. A family member at the bedside did note that the patient had not been feeling well for approximately a week prior to presentation. They indicated his primary complaint was feeling rundown. He does have a med port in his right chest and a tunneled dialysis catheter in his left chest however they are transitioning to his new fistula in his right upper extremity for dialysis. In the emergency department he received albuterol and was admitted to the PCU for further evaluation. Cultures were obtained with his encephalopathy and stroke work-up was performed. MRI was done and showed no acute findings but did demonstrate a old lacunar infarct in the right basal ganglia. MRA of the head and neck was performed and did show some carotid stenosis however there was significant motion artifact and the amount was not able to be determined. An echocardiogram was done given his troponin elevation and cardiology was consulted. His echocardiogram showed an EF of 60% with moderate biatrial enlargement, a calcific aortic root and a right ventricular systolic pressure of 39 mmHg. No significant valvular abnormalities were noted. Cardiology evaluated the patient and recommended not evasive testing be performed. Stress test was done and demonstrated no inducible ischemia. It was felt that his troponin elevations were likely related to a type II NSTEMI related to his hypoxia and bacteremia. Blood cultures done on the day of admission showed Pseudomonas. He was maintained on Zosyn infectious disease was consulted. Given his chronic tunneled dialysis catheter repeat blood cultures were performed for clearance on 05/04/2022 and still found to be positive therefore his tunneled dialysis catheter was removed. I did discuss the case with infectious disease as they had previously recommended 7 more days of Cipro 500 mg daily and at this point they recommended extending the course to a total of 10 days with the same dose. I would recommend repeat blood cultures to be done after his antibiotics are completed as he does still does have a med port in place however infectious disease stated they would follow him as needed. He was maintained on supplemental oxygen. The patient did report that he had previously been discharged on supplemental oxygen but felt he did not need it. He was not utilizing this at home. We did an ambulatory pulse oximeter on him prior to discharge. At rest he does not need supplemental oxygen his sats were greater than 88% however with exertion his sats dropped to 86% and we have discharged him home with 2 L with exertion that he is to continue to utilize on a regular basis until cleared by a physician to discontinue supplemental oxygen use. Was initially felt that his nidus for infection was likely pulmonary however we were not able to obtain a sputum sample during his hospital course so it is therefore feasible that his bacteremia is related to his dialysis catheter. His dialysis catheter was removed prior to discharge on 05/05/2022 by general surgery. He was evaluated by physical and Occupational Therapy during his hospital stay and they felt that he did not need any further skilled therapy upon discharge. He was maintained on his dialysis during his hospital course. His fistula was working quite well. He was able to be discharged home on 05/05/2022 in stable condition. A prescription for ciprofloxacin 500 mg daily was given to the patient and he was instructed to take his ciprofloxacin after dialysis on dialysis days. This was also written for him on the prescription as well as in his home discharge instructions. He is to follow-up with his primary care physician within the next 1 week, cardiology within the next month, nephrology as previously recommended, and infectious disease as needed. Again, I would recommend repeat blood cultures to be obtained after he completes his 10-day course of antibiotics to demonstrate clearance as he still has a Mediport in his right chest. Discharge diagnoses: Acute on chronic hypoxic respiratory failure secondary to pseudomonal pneumonia Pseudomonal bacteremia Lactic acidosis-resolved Metabolic encephalopathy-resolved Hyperphosphatemia-resolved NSTEMI type II secondary to metabolic demands and hypoxia End-stage renal disease-HD dependent Chronic anemia secondary to renal disease Chronic thrombocytopenia PAF Mild aortic root dilation Physical Exam Const alert, oriented x3, no apparent distress and well nourished Constitutional Narrative: Very pleasant, obese, elderly white male sitting up in his bed watching television, patient appears comfortable nontoxic General Appearance: cooperative, comfortable, well kempt and well developed Orientation / Consciousness: awake, oriented to person, oriented to place and oriented to time Exam Limitations: no limitations Nutritional Appearance: obese HEENT normocephalic, head/scalp atraumatic and moist oral mucous membranes HEENT Narrative: Moderate hearing loss, dentition is poor, Mallampati is 2-3, no thrush Eyes PERRL and EOMs intact bilaterally; Negative for conjunctivae normal Eyes Narrative: Conjunctiva are slightly pale, no scleral icterus Neck no lymphadenopathy Neck Narrative: Acute midline, no thyroid enlargement Resp normal respiratory effort, no retractions, no use of accessory muscles and clear to auscultation bilaterally Resp Narrative: Diffusely diminished but clear Auscultation: Negative for crackles, rhonchi or wheezes Cardio regular rate, S1 normal heart sound, S2 normal heart sound, no murmurs, no rub, no gallops and no clicks Cardio Narrative: Irregular rhythm GI normal to inspection, nondistended, normoactive bowel sounds, soft to palpation, non-tender and non-distended; Negative for hepatosplenomegaly Extremity normal to inspection and no clubbing, cyanosis or edema Extremity Narrative: 2+ pedal pulses Skin no wounds, skin turgor normal and no jaundice Skin Narrative: Dialysis catheter left chest-clean dry and dressing intact, med port right mattie st-not accessed the fistula in the right upper extremity with positive thrill and bruit currently accessed with good flow Neuro oriented x3, CN's II-XII intact bilaterally, moves all extremities and no focal motor deficits Neuro Narrative: Muscle strength 5-5 in upper extremities and 4 out of 5 in the lower extremities. Coordination / Balance: Negative for [id number] test normal Speech: speech normal Psych affect normal Psych Narrative: Very pleasant and appropriately interactive Weight / BMI Weight Weight: 98.8 kg Body Mass Index (BMI) 32.1 ABG / Lab / Microbiology Data Result Diagrams: 05/05/22 04:29 05/05/22 04:29 Laboratory: Laboratory Results - last 24 hr 05/05/22 04:29: WBC 7.6, RBC 2.95 L, Hgb 9.4 L, Hct 29.4 L, MCV 99.7 H, MCH 31.9, MCHC 32.0, RDW Std Deviation 49.7 H, RDW Coeff of Lencho 13.7, Plt Count 133 L, MPV 11.0, Immature Gran % (Auto) 0.500, Neut % (Auto) 81.2 H, Lymph % (Auto) 7.6 L, [place] % (Auto) 7.9, Eos % (Auto) 2.5, Baso % (Auto) 0.3, Absolute Neuts (auto) 6.2, Absolute Lymphs (auto) 0.58 L, Nucleated RBC % 0, Platelet Estimate SLT DEC, Macrocytosis RARE 05/05/22 04:29: Sodium 137, Potassium 4.2, Chloride 100, Carbon Dioxide 26.0, Anion Gap 11, BUN 59 H, Creatinine 4.27 H, Estim Creat Clear Calc 14.95, Est GFR (MDRD) Af Amer 18 L, Est GFR (MDRD) Non-Af 15 L, BUN/Creatinine Ratio 13.8, Glucose 94, Calcium 7.5 L Microbiology: Microbiology 05/04/22 10:45 Blood Culture (Wb) - Dialysis/Fistula Blood Culture - Preliminary GNR Poss Pseudomonas sp 05/01/22 16:50 Blood Culture (Wb) - Venous Blood Culture - Final Pseudomonas aeroginosa 05/01/22 17:15 Blood Culture (Wb) #2 - Left Forearm Blood Culture - Final Gram negative bro 05/01/22 18:25 Mucosa - Nasopharyngeal Respiratory Panel (PCR) - Final 05/01/22 16:30 Nasal Secretion SARS-CoV-2 & FLU Antigen (Rapid) - Final Radiography Diagnostic Testing: Radiology Impression Echocardiogram 05/01/22 20:52 Interpretation Summary Left ventricular systolic function is normal. The estimated ejection fraction is 60 %. The left atrium is moderately enlarged. The right atrium is moderately enlarged. Mild (1+) mitral valve insufficiency. Trivial tricuspid valve insufficiency. Mild diffuse aortic valve thickening. Mild diffuse aortic valve calcification. Trivial pulmonic valve insufficiency. Calcified aortic root. Right ventricular systolic pressure estimated to be 39 mmHg. Diastolic function is indeterminate. Comment: 2D echocardiographic images demonstrate a small mobile echodensity in the right atrium appearing compatible with the patient's central venous catheter/dialysis catheter. Ordering Physician: Ed Dinero Referring Physician: Martin Nunez Performed By: Georgia Yousif RDCS, RVT D/C Instructions Discharge Diet: Low fat / Low cholesterol Discharge Activity: Return to Normal Activity Meaningful Use Info Meaningful Use Diagnoses (Choose all that apply): None applicable Discharge Plan Admission Admit Date/Time: 05/01/22 18:49 Primary Reason for Your Visit: Shortness of breath/confusion Attending Provider: Ban He Primary Care Provider: Martin Nunez Consulting Providers: Rogelio Brewer ; Sonia He ; Ed Dinero ; Jesusita Durham ; Robbie Berry ; Xenia Gilmore Instructions Additional Instructions / Restrictions: 1. Please wear 2 L of supplemental oxygen with exertion and continue this until you are cleared by your primary care physician use oxygen not use oxygen with exertion 2. Please take ciprofloxacin (antibiotic) daily for the next 10 days. Take the antibiotic after dialysis on dialysis days. 3. Please continue dialysis as instructed Discharge Orders/Prescriptions Prescriptions: New ciprofloxacin HCl [Cipro] 500 mg tablet 500 mg PO DAILY Qty: 10 0RF Rx Instructions: Take daily but on dialysis days take after dialysis is completed Continued carvedilol 6.25 MG tablet 6.25 mg PO BID vitamin B complex 1 EACH tablet 1 tab PO DAILY polyethylene glycol 3350 119 GM powder 17 g PO DAILY PRN (Reason: Constipation) cetirizine 10 MG capsule 10 mg PO DAILY Qty: 30 0RF ferrous sulfate 325 mg (65 mg iron) tablet 325 mg PO QODAY Qty: 30 0RF Virt-Caps 1 mg Capsule 1 cap PO DAILY Qty: 0 0RF Eliquis 2.5 mg Tablet 2.5 mg PO BID Qty: 0 0RF Label Comments: LAST DOSE WILL BE 03/27/22 PM Rx Instructions: resume on 03/31, evening dose calcitriol 0.25 mcg capsule 0.25 mcg PO TUTHSA Label Comments: TAKE 1 CAPSULE BY MOUTH on dialysis days magnesium hydroxide [Milk of Magnesia] 400 mg/5 mL suspension 30 ml PO Q4H PRN (Reason: Constipation) ascorbic acid (vitamin C) 500 mg tablet 500 mg PO DAILY Referrals / Follow Up: Sonia He DO [Med Staff - Consulting] - See Referral Note (As previously instructed) Robbie Berry MD [Med Staff - Active Staff] - See Referral Note (As needed) Grazyna Zhang [employer], [employer] [Non-Staff -Ordering Privileges] - 06/04/22 2:00 pm Bridget Hernandez [employer], [employer] [Non-Staff] - 05/12/22 11:00 am Disposition Disposition (needs filled in before D/C Order can be placed): Home, Self Care Charges/Coding Visit Charges Inpatient E&M: 74027 Disch Hosp
--- NOTE | 2022-05-05 13:09 | CASEMGMT ---
Pt having tunnel cath removed prior to d/c. CM to follow up on d/c plan once procedure complete. SStaten RN CM
--- NOTE | 2022-05-05 13:29 | CON.PCM.SX_ITS ---
Assessment & Plan Assessment/Plan (1) Bacteremia due to Gram-negative bacteria: (2) Encounter for dialysis catheter care: PLAN: Plan Explained the procedure to the patient who is agreeable with plan. Patient t olerated procedure well. Tip of the catheter was sent for culture. Xenia Gilmore M.D. Pager: [phone] [facility] [address] [place] [address], [facility], [address] [place] [address] Office: [phone] HPI Consult Data Date of Consult: 05/05/22 HPI Narrative HPI Narrative: RIA MARIANO, is a 76 M who admitted and found to have bacteremia due to gram- negative bacteria?Pseudomonas. Patient does have a left tunneled IJ dialysis catheter. Patient also has functioning right arm fistula. Positive cultures just came back this morning. Requested removal of the left tunneled dialysis catheter. [facility] Medical History Acute kidney injury Anemia Bladder cancer Bladder cancer CHF (congestive heart failure) CKD (chronic kidney disease) stage 5, GFR less than 15 ml/min Elevated troponin ESRD (end stage renal disease) Essential hypertension History of DVT (deep vein thrombosis) History of pulmonary embolism History of solitary pulmonary nodule HIT (heparin-induced thrombocytopenia) HLD (hyperlipidemia) Hyperparathyroidism Iron deficiency anemia Left upper chest discomfort Lower gastrointestinal bleeding Lymphoma Lymphoma Neutropenic fever Pancytopenia Paroxysmal A-fib Preop cardiovascular exam Pulmonary embolism Renal calculus Shortness of breath VTE (venous thromboembolism) Home Medications carvedilol 6.25 mg tablet 6.25 mg PO BID blood pressure 04/24/17 [History Last Taken 02/15/22] polyethylene glycol 3350 17 gram/dose oral powder 17 g PO DAILY PRN Constipation 07/02/20 [History Last Taken 02/14/22] vitamin B complex 1 tab PO DAILY SUPPLEMENT 07/02/20 [History Last Taken 02/15/22] cetirizine 10 mg capsule 10 mg PO DAILY #30 caps 07/04/20 [Rx Last Taken Unknown] ferrous sulfate 325 mg (65 mg iron) tablet 325 mg PO QODAY SUPPLEMENT #30 tabs 02/20/22 [Rx Last Taken 02/15/22] vitamin B complex and vitamin C no.20-folic acid 1 mg capsule (Virt-Caps) 1 cap PO DAILY #0 caps 02/23/22 [Rx Last Taken Unknown] ascorbic acid (vitamin C) 500 mg tablet 500 mg PO DAILY supplement 03/12/22 [History Last Taken Unknown] magnesium hydroxide 400 mg/5 mL oral suspension (Milk of Magnesia) 30 ml PO Q4H PRN Constipation 03/12/22 [History Last Taken Unknown] apixaban 2.5 mg tablet (Eliquis) 2.5 mg PO BID #0 tabs 03/30/22 [Rx Last Taken Unknown] calcitriol 0.25 mcg capsule 0.25 mcg PO TUTHSA supplement 05/01/22 [History Last Taken Unknown] ciprofloxacin HCl 500 mg tablet (Cipro) 500 mg PO DAILY #10 tabs 05/05/22 [Rx Last Taken Unknown] Allergy/AdvReac Type Severity Reaction Status Date / Time enoxaparin [From Lovenox] Allergy Other Verified 05/01/22 16:11 heparin Allergy Other Verified 05/01/22 16:11 aspirin AdvReac Other Verified 05/01/22 16:11 Iodinated Contrast Media AdvReac OTHER Verified 05/01/22 16:11 [CONTRASTS] Family History Father Cancer lung Arrhythmia Brother Cancer Surgical History AV fistula H/O total cystectomy History of cataract extraction History of corrected cleft lip and palate History of tonsillectomy Social History household members: none Smoking Status: Former smoker how long ago did patient quit smokin alcohol intake: never substance use type: does not use caffeine: No Physical Exam Const alert, oriented x3 and no apparent distress General Appearance: cooperative Neck supple Chest Chest Narrative: Left chest dialysis catheter exit site no obvious signs of infection. Resp normal respiratory effort GI soft to palpation Skin no rashes or lesions noted Neuro CN's II-XII intact bilaterally Lab / Micro Data Result Diagrams: 05/05/22 04:29 05/05/22 04:29 Labs: Laboratory Results - last 24 hr 05/05/22 04:29: WBC 7.6, RBC 2.95 L, Hgb 9.4 L, Hct 29.4 L, MCV 99.7 H, MCH 31.9 , MCHC 32.0, RDW Std Deviation 49.7 H, RDW Coeff of Lencho 13.7, Plt Count 133 L, MPV 11.0, Immature Gran % (Auto) 0.500, Neut % (Auto) 81.2 H, Lymph % (Auto) 7.6 L, [place] % (Auto) 7.9, Eos % (Auto) 2.5, Baso % (Auto) 0.3, Absolute Neuts (auto) 6.2, Absolute Lymphs (auto) 0.58 L, Nucleated RBC % 0, Platelet Estimate SLT DEC, Macrocytosis RARE 05/05/22 04:29: Sodium 137, Potassium 4.2, Chloride 100, Carbon Dioxide 26.0, Anion Gap 11, BUN 59 H, Creatinine 4.27 H, Estim Creat Clear Calc 14.95, Est GFR (MDRD) Af Amer 18 L, Est GFR (MDRD) Non-Af 15 L, BUN/Creatinine Ratio 13.8, Glucose 94, Calcium 7.5 L Micro: Microbiology 05/04/22 10:45 Blood Culture (Wb) - Dialysis/Fistula Blood Culture - Preliminary GNR Poss Pseudomonas sp 05/01/22 16:50 Blood Culture (Wb) - Venous Blood Culture - Final Pseudomonas aeroginosa Rhythm Strip Rhythm Strip: A-fib Radiology Impression Echocardiogram 05/01/22 20:52 Interpretation Summary Left ventricular systolic function is normal. The estimated ejection fraction is 60 %. The left atrium is moderately enlarged. The right atrium is moderately enlarged. Mild (1+) mitral valve insufficiency. Trivial tricuspid valve insufficiency. Mild diffuse aortic valve thickening. Mild diffuse aortic valve calcification. Trivial pulmonic valve insufficiency. Calcified aortic root. Right ventricular systolic pressure estimated to be 39 mmHg. Diastolic function is indeterminate. Comment: 2D echocardiographic images demonstrate a small mobile echodensity in the right atrium appearing compatible with the patient's central venous catheter/dialysis catheter. Ordering Physician: Ed Dinero Referring Physician: Martin Nunez Performed By: Georgia Yousif RDCS, RVT Charges/Coding Visit Charges Inpatient E&M: 40383 Init Hosp L2
--- NOTE | 2022-05-05 13:29 | PCM.OPRPT ---
Report of Operation Date of Procedure: 05/05/22 Pre-Operative Diagnosis: Pseudomonas bacteremia Post-Operative Diagnosis: Same Surgery/Procedure Performed:: Removal of left IJ tunneled dialysis catheter Surgeon: Xenia Gilmore Type of Anesthesia: Local Specimen's removed: Tip of the tunneled dialysis catheter sent for culture Estimated Blood Loss (mL): minimal Description of Procedure: Timeout was completed verifying correct patient, procedure, positioning, and special equipment prior to beginning procedure. Consent was signed. Betadine was used on the left chest including the catheter. 2% lidocaine with epinephrine was infiltrated near the catheter exit site as the cuff was sitting right at this area. Hemostats were used to break up the adhesions surrounding the cuff. The tunnel dialysis catheter was easily removed with gentle traction. Pressure was held at the left IJ site for about 25 minutes. Hemostasis was assured. Tip of the dialysis catheter was sent for culture. Patient tolerated procedure well. Complications none
--- NOTE | 2022-05-05 13:33 | PCM.PN.ID ---
Physical Exam Narrative Feeling better. HD cath removed from L chest today. No fever. No soreness/swelling over R chest port, currently not accessed. Const alert and no apparent distress Resp normal air movement and clear to auscultation bilaterally Cardio regular rate and regular rhythm GI soft to palpation, non-tender and non-distended Skin no rashes or lesions noted Skin Narrative: No soreness/swelling over R chest port, currently not accessed. ID ID: Route of nutrition/ use of supplements: [] Nutritional Intake: [] IV Site: [] Harrison Catheter: [] Assessment & Plan Assessment/Plan (1) Bacteremia due to Gram-negative bacteria: PLAN: Pseudomonas (+) bcx. Suspected source pneumonia. On zosyn. Permacath being removed today. Ok for discharge on po cipro 500mg daily (take dose after dialysis on HD days) for 10 more days. Last QTC around 440. Will check repeat bcx from port and periphery today. ID followup as needed. Will follow, d/w Dr. He (2) ESRD (end stage renal disease) on dialysis: (3) Pneumonia:
--- NOTE | 2022-05-05 13:46 | CASEMGMT ---
Addendum entered by Ro Martinez 05/05/22 14:15: Pt also provided with pulse ox for discharge. Pt voices no further questions/concerns/needs. Octavia GENTILE CM Original Note: Per Danette GENTILE, pt does not qualify for increased home oxygen. Pt has home oxygen order for 2L w/ exertion already and states son can bring tank in. Pt is agreeable to [facility] and states would like [facility]. Order placed for SN, PT/OT, Aide and haroon Agudelo at [facility], they can accept and do SOC 05/07/22. Pt updated, voices understanding. Pt states normally drives self to diaysis but states unsure d/t increased weakness. Pt states should be able to get son to take him tomorrow and this KRUPA GOMES placed call to [facility] regarding same. SW is not in today but they will message her regarding same. Octavia GENTILE CM
[2022-05-05] MEDS: Lidocaine 2% /Epi 1:100 (20ml) 20 ML VIAL INFILT (14:31)
--- NOTE | 2022-05-05 14:41 | PHA.DC.MR ---
Pharmacy Service has performed discharge medication reconciliation for this patient. The patient's discharge medication list was reviewed for discrepancies and discrepancies were resolved. Unable to personal counselor. Medications reviewed. Home Medications carvedilol 6.25 mg tablet 6.25 mg PO BID blood pressure 04/24/17 polyethylene glycol 3350 17 gram/dose oral powder 17 g PO DAILY PRN Constipation 07/02/20 vitamin B complex 1 tab PO DAILY SUPPLEMENT 07/02/20 cetirizine 10 mg capsule 10 mg PO DAILY #30 caps 07/04/20 ferrous sulfate 325 mg (65 mg iron) tablet 325 mg PO QODAY SUPPLEMENT #30 tabs 02/20/22 vitamin B complex and vitamin C no.20-folic acid 1 mg capsule (Virt-Caps) 1 cap PO DAILY #0 caps 02/23/22 ascorbic acid (vitamin C) 500 mg tablet 500 mg PO DAILY supplement 03/12/22 magnesium hydroxide 400 mg/5 mL oral suspension (Milk of Magnesia) 30 ml PO Q4H PRN Constipation 03/12/22 apixaban 2.5 mg tablet (Eliquis) 2.5 mg PO BID #0 tabs 03/30/22 calcitriol 0.25 mcg capsule 0.25 mcg PO TUTHSA supplement 05/01/22 ciprofloxacin HCl 500 mg tablet (Cipro) 500 mg PO DAILY #10 tabs 05/05/22
== END 2022-05-05 18:34 | disposition home or self-care (01) | DRG 280 ==
LOC: ED 18:46 → PCU 19:09
PROVIDERS: Family Medicine; Internal Medicine Nephrology; Emergency Provider Emergency Medicine; PCP Student in an Organized Health Care Education/Training Program; Visit Provider Internal Medicine
DX: I21.A1 Myocardial infarction type 2 (principal); J15.1 Pneumonia due to Pseudomonas; J96.21 Acute and chronic respiratory failure with hypoxia; G93.41 Metabolic encephalopathy; N18.6 End stage renal disease; I13.2 Hypertensive heart and chronic kidney disease with heart failure and with stage 5 chronic kidney disease, or end stage renal disease; E87.20 Acidosis, unspecified; I50.32 Chronic diastolic (congestive) heart failure; D75.829 Heparin-induced thrombocytopenia, unspecified; D69.6 Thrombocytopenia, unspecified; I48.0 Paroxysmal atrial fibrillation; Z99.2 Dependence on renal dialysis; I70.0 Atherosclerosis of aorta; I77.810 Thoracic aortic ectasia; E87.70 Fluid overload, unspecified; E83.39 Other disorders of phosphorus metabolism; D63.1 Anemia in chronic kidney disease; I25.10 Atherosclerotic heart disease of native coronary artery without angina pectoris; E78.5 Hyperlipidemia, unspecified; E87.6 Hypokalemia; D50.9 Iron deficiency anemia, unspecified; F41.9 Anxiety disorder, unspecified; M48.02 Spinal stenosis, cervical region; Z87.891 Personal history of nicotine dependence; R53.1 Weakness; Z79.01 Long term (current) use of anticoagulants; B96.5 Pseudomonas (aeruginosa) (mallei) (pseudomallei) as the cause of diseases classified elsewhere
CPT/HCPCS: 36415; 70450; 70544; 70547; 70551; 71045; 78452; 80048; 80061; 80069; 83605; 83735; 83880; 84100; 84145; 84484; 85025; 85027; 87040; 87070; 87075; 87077; 87184; 87186; 87205; 87428; 87633; 87635; 87641; 90937; 93005; 93017; 93306; 94640; 94762; 97162; 97165; 97530; 97535; 97802; 99285; 99406; A9500; J7030; J7040; J7050; A4216; G0257; J2785; Q5106; U0003; U0005

== ENCOUNTER → 2022-06-30 | Outpatient (CLI) | payer MEDICARE, BC, SELFPAY ==
--- NOTE | 2022-06-30 12:50 | ECHOD_ITS ---
Reason For Study: AFIB/FLUTTER Procedure This was a 2D Doppler, Color Flow transthoracic echocardiogram. The study was technically difficult. Exam performed in department. Left Ventricle Normal LV size. Mild concentric left ventricular hypertrophy. D shaped septum in systole and diastole. Left ventricular systolic function is normal. The estimated ejection fraction is 60 %. Diastolic function is indeterminate. No regional wall motion abnormalities noted. Right Ventricle Mildly dilated right ventricle. Mild global right ventricular systolic dysfunction. Atria The left atrium is severely enlarged. The right atrium is moderately enlarged. No doppler evidence for ASD. Mitral Valve There is no mitral annular calcification. Normal mitral valve. Mild (1+) mitral valve insufficiency. Tricuspid Valve Normal tricuspid valve. Mild tricuspid valve insufficiency. Right ventricular systolic pressure estimated to be 31 mmHg. Aortic Valve Trisinus/trileaflet aortic valve. Mild focal aortic valve calcification. Pulmonic Valve The pulmonic valve is not well visualized. Great Vessels Normal sized aortic root. Pericardium/Pleural No pericardial effusion. MMode/2D Measurements & Calculations LVIDd: 5.0 cm IVSd: 1.3 cm Ao root diam: 3.1 cm LVIDs: 3.7 cm LVPWd: 1.5 cm RVDd: 3.5 cm FS: 25.3 % LAV(MOD-bp): 123.9 ml LA A4 area: 32.9 cm2 LA dimension(2D): 5.1 cm LAV(MOD-bp) Indexed: 57.9 ml/m2 LAV(MOD-sp2): 115.7 ml LAV(MOD-sp4): 122.9 ml RA A4 area: 27.6 cm2 Doppler Measurements & Calculations MV E max adalberto: 96.9 cm/sec Ao V2 max: 162.1 cm/sec LV V1 max: 108.2 cm/sec Ao max P.5 mmHg LV V1 max P.7 mmHg Ao V2 mean: 112.1 cm/sec LV V1 mean P.4 mmHg Ao mean P.7 mmHg LV V1 mean: 72.4 cm/sec Ao V2 VTI: 34.6 cm LV V1 VTI: 20.9 cm AV (velocity ratio): 0.60 PA V2 max: 89.2 cm/sec TR max adalberto: 264.3 cm/sec TR max P.0 mmHg ECHO/Echo Complete Interpretation Summary The study was technically difficult. Left ventricular systolic function is normal. The estimated ejection fraction is 60 %. Mild concentric left ventricular hypertrophy. D shaped septum in systole and diastole. Mildly dilated right ventricle. Mild global right ventricular systolic dysfunction. The left atrium is severely enlarged. The right atrium is moderately enlarged. Mild (1+) mitral valve insufficiency. Mild tricuspid valve insufficiency. Mild focal aortic valve calcification. Right ventricular systolic pressure estimated to be 31 mmHg. Diastolic function is indeterminate. Comment: Echolucency in the hepatic area potentially compatible with hepatic cy sts. Consider further radiologic evaluation if clinically indicated/as deemed appropriate. Ordering Physician: Gen Gallego Referring Physician: Martin Nunez Performed By: Lizette Quevedo, MEÑOCS, RVT
== END | disposition home or self-care (01) ==
LOC: CVS 12:49
PROVIDERS: PCP Student in an Organized Health Care Education/Training Program; Visit Provider Internal Medicine Cardiovascular Disease
DX: I48.0 Paroxysmal atrial fibrillation (principal); I50.9 Heart failure, unspecified; I77.810 Thoracic aortic ectasia
CPT/HCPCS: 93306

== ENCOUNTER 2023-02-12 11:26 | Emergency (ER) | payer MEDICARE, BC, SELFPAY ==
[2023-02-12 11:27] VITALS: BP 96/55; PULSE 89; RESP 17; TEMP 36.7; O2SAT 97
[2023-02-12 11:31] VITALS: BMI 33.2
--- NOTE | 2023-02-12 11:50 | EX.ED.DYSGE1 ---
HPI History of Present Illness Chief Complaint: Diarrhea Informant: patient Onset/Context/Timing Onset: Weeks (1) Context: Gradual Onset Timing: Intermittent Quality: Watery Location: Stools Worsened by: Drinking water Relieved by: Imodium Narrative Narrative: Patient presents with diarrhea that has been intermittent for the past week. Patient states his diarrhea is watery. Patient states he has taken Imodium which has helped. Patient states it got worse when he drank water. Patient admits to some dizziness and lightheadedness. Patient is supposed to go to dialysis on Tuesday, , and Tuesday. Patient did not go to his dialysis today because of the diarrhea. Patient denies any fevers or chills. Patient denies any nausea or vomiting. [facility] Medical History Abnormal finding on ultrasound Acute kidney injury Anemia Aortic root dilatation Bladder cancer Bladder cancer CHF (congestive heart failure) CKD (chronic kidney disease) stage 5, GFR less than 15 ml/min Elevated troponin ESRD (end stage renal disease) ESRD (end stage renal disease) on dialysis Essential hypertension Hepatic cyst History of DVT (deep vein thrombosis) History of pulmonary embolism History of solitary pulmonary nodule HIT (heparin-induced thrombocytopenia) HLD (hyperlipidemia) Hyperparathyroidism Iron deficiency anemia Iron deficiency anemia Left upper chest discomfort Lower gastrointestinal bleeding Lymphoma Lymphoma Neutropenic fever Pancytopenia Paroxysmal A-fib Preop cardiovascular exam Pulmonary embolism Renal calculus Shortness of breath VTE (venous thromboembolism) Home Medications carvedilol 6.25 mg tablet 6.25 mg PO BID blood pressure 04/24/17 [History Last Taken 02/15/22] polyethylene glycol 3350 17 gram/dose oral powder 17 g PO DAILY PRN Constipation 07/02/20 [History Last Taken 02/14/22] vitamin B complex 1 tab PO DAILY SUPPLEMENT 07/02/20 [History Last Taken 02/15/22] vitamin B complex and vitamin C no.20-folic acid 1 mg capsule (Virt-Caps) 1 cap PO DAILY #0 caps 02/23/22 [Rx Last Taken Unknown] ascorbic acid (vitamin C) 500 mg tablet 500 mg PO DAILY supplement 03/12/22 [History Last Taken Unknown] apixaban 2.5 mg tablet (Eliquis) 2.5 mg PO BID #0 tabs 03/30/22 [Rx Last Taken Unknown] calcitriol 0.25 mcg capsule 0.25 mcg PO DAILY supplement 07/30/22 [History Last Taken Unknown] calcium acetate(phosphat bind) 667 mg tablet 2,001 mg PO TID 07/30/22 [History Last Taken Unknown] ciprofloxacin HCl 500 mg tablet 500 mg PO DAILY #10 TABLETS 02/12/23 [Rx Last Taken Unknown] metronidazole 500 mg tablet 500 mg PO Q6H #40 tabs 02/12/23 [Rx Last Taken Unknown] Allergy/AdvReac Type Severity Reaction Status Date / Time enoxaparin [From Lovenox] Allergy Other Verified 07/30/22 15:12 heparin Allergy Other Verified 07/30/22 15:12 aspirin AdvReac Other Verified 07/30/22 15:12 Iodinated Contrast Media AdvReac OTHER Verified 07/30/22 15:12 [CONTRASTS] Family History (Reviewed 07/30/22 @ 15:09 by Grazyna Zhang [employer], [employer] SUPER[employer]OR-C) Father Cancer lung Arrhythmia Brother Cancer Surgical History AV fistula H/O total cystectomy History of cataract extraction History of corrected cleft lip and palate History of tonsillectomy Social History household members: none Smoking Status: Former smoker how long ago did patient quit smokin alcohol intake: never substance use type: does not use caffeine: No ROS ROS ED Constitutional Constitutional ED: Denies chills or fever(s) Eyes Eyes: Denies blurry vision or change in vision ENT ENT ED: Reports rhinorrhea; Denies sore throat Cardiovascular Cardiovascular: Denies chest pain or palpitations Respiratory/Chest Respiratory/Chest: Denies cough or dyspnea Gastrointestinal Gastrointestinal: Reports diarrhea; Denies nausea or vomiting Genitourinary Genitourinary ED: Denies dysuria or hematuria Musculoskeletal Musculoskeletal: Reports back pain and neck pain Integumentary Denies abscess or rash Neurologic Neurologic: Denies headache(s) or weakness Allergic/Immunologic Allergic/Immunologic ED: Denies mouth swelling or urticaria EXAM Physical Exam Const Vital Signs: 02/12/23 11:27 02/12/23 13:35 Temperature 98.1 F Temperature Source Temporal Pulse Rate 89 95 Respiratory Rate 17 18 Blood Pressure 96/55 L 112/50 L Blood Pressure Mean 68 70 Pulse Ox 97 Oxygen Delivery Method Room Air Positive well nourished and well developed General Appearance ED: well developed HEENT Reports moist mucous membranes Neck supple and no JVD Resp normal respiratory effort and clear to auscultation bilaterally Cardio regular rate, regular rhythm and no murmurs GI normal to inspection, nondistended, normoactive bowel sounds Palpation: soft and tender LLQ; Negative for guarding or rebound tenderness present Extremity normal to inspection Extremity Narrative: There is some mild edema over the left great toe. There is an ingrown toenail on the left great toe. There is no active discharge or drainage. There is tenderness to palpation of the distal phalanx of the left great toe. Pedal pulses are equal bilaterally. There is some mild erythema of the left great toe. Capillary refills less than 2 seconds in all digits. Sensation was intact to light touch in all digits. There is full range of motion of the IP and MP joints of the left great toe. General Extremety ED: Negative for edema or tenderness General Extremity: Negative for edema Neuro oriented x3, CN's II-XII intact bilaterally and no sensory deficits noted Sensorium / Orientation: alert Motor Exam: strength 5/5 throughout Psych mental status grossly normal Skin no rashes or lesions noted MDM MDM MDM Narrative Medical decision making narrative: Differential diagnosis includes colitis, diverticulitis, dehydration, electrolyte abnormality, chronic kidney disease, anemia, and osteomyelitis of left great toe. CBC will be obtained to assess for leukocytosis and anemia. Basic metabolic profile will be obtained to assess for electrolyte abnormality and renal function. CT scan of the abdomen pelvis will be obtained to assess for colitis and diverticulitis. X-rays of the left foot will be obtained to assess for osteomyelitis of the left great toe. PT with INR and PTT will be obtained to assess for coagulopathy. Lab Data Attestation: I reviewed the patient's lab results. Lab results narrative: CBC was reviewed. There is a mild anemia with a hemoglobin of 10.6 and hematocrit 32.8. Platelets were normal. PT with INR and PTT were reviewed. Pro time was 17.2 and INR is 1.4. PTT was 36.6. Basic metabolic profile was reviewed. BUN was 87 and creatinine was 8.41. These are consistent with prior results. (Patient did not go to dialysis today) Labs: Laboratory Results - last 24 hr 02/12/23 12:36 WBC 7.0 RBC 3.17 L Hgb 10.6 L Hct 32.8 L MCV 103.5 H MCH 33.4 H MCHC 32.3 RDW Std Deviation 53.7 H RDW Coeff of Lencho 14.1 Plt Count 176 MPV 10.1 Immature Gran % (Auto) 0.600 Neut % (Auto) 73.4 H Lymph % (Auto) 11.1 L Wharton % (Auto) 12.2 H Eos % (Auto) 2.3 Baso % (Auto) 0.4 Absolute Neuts (auto) 5.2 Absolute Lymphs (auto) 0.78 L Nucleated RBC % 0 PT 17.2 H INR 1.4 APTT 36.6 H Sodium 141 Potassium 3.3 L Chloride 102 Carbon Dioxide 25.0 Anion Gap 14 BUN 87 H Creatinine 8.41 H* Estim Creat Clear Calc 7.23 Est GFR (MDRD) Af Amer 8 L Est GFR (MDRD) Non-Af 7 L BUN/Creatinine Ratio 10.3 Glucose 110 H Calcium 8.8 Radiography Diagnostic Testing: Clinical Impression(s) from Imaging Studies Abdomen CT 02/12/23 11:57 IMPRESSION: Circumferential wall thickening of the colon concerning for colitis. Distended gallbladder associated with cholelithiasis and possible stranding adjacent to the gallbladder neck, consider right upper quadrant ultrasound for further characterization. Severe right-sided hydroureteronephrosis, likely chronic associated with curvilinear foci within the ureteropelvic junction and mid/distal ureter which may be secondary to prior instrumentation. Colonic diverticulosis. Atherosclerosis. Small hiatal hernia. Emphysema. Electronically Signed: Wendi Sanders MD at 15:56 EDT Reading Location ID and State: [facility] / [place] Tel , Service support , Foot X-Ray 02/12/23 11:59 IMPRESSION: Degenerative changes. Electronically Signed: Wendi Sanders MD at 12:52 EDT , X-rays of the left foot were obtained. There are 3 views. On my independent interpretation, there are some degenerative changes. There is no evidence of osteomyelitis. Radiologist also interpreted the x-rays and agrees. CT scan of the abdomen and pelvis was obtained. There is circumferential wall thickening of the colon concerning for colitis. There is cholelithiasis with possible stranding adjacent to the gallbladder neck. There is right-sided hydronephrosis and hydroureter which is likely chronic. This was interpreted by the radiologist and was also independently reviewed by myself. Treatment and Re-Evaluation :: Patient was given a small bolus of IV fluids. Patient's blood pressure improved to 112/50. Patient was feeling better on reevaluation. Patient was advised of his findings. Patient states he knew about the gallstones in his gallbladder for several years. Patient was given prescriptions for Cipro and Flagyl. Patient given the first dose here. Patient was instructed to take the Flagyl after his dialysis treatment on dialysis days. Patient was instructed to follow-up with his primary care physician in 5 to 7 days. Patient understood and was agreeable with the plan. All questions were answered. Discharge Plan Triage Chief Complaint: Diarrhea ED Provider: Ed Bradley Dx/Rx/DC Orders Clinical Impression: Colitis, Diarrhea Instructions: ED Understanding Colitis Prescriptions: New metronidazole [metronidazole] 500 mg tablet 500 mg PO Q6H Qty: 40 0RF ciprofloxacin HCl [ciprofloxacin HCl] 500 mg tablet 500 mg PO DAILY Qty: 10 0RF No Action calcium acetate(phosphat bind) 667 mg tablet 2,001 mg PO TID Rx Instructions: With meals carvedilol 6.25 MG tablet 6.25 mg PO BID vitamin B complex 1 EACH tablet 1 tab PO DAILY polyethylene glycol 3350 119 GM powder 17 g PO DAILY PRN (Reason: Constipation) Virt-Caps 1 mg Capsule 1 cap PO DAILY Qty: 0 0RF Eliquis 2.5 mg Tablet 2.5 mg PO BID Qty: 0 0RF Patient Comments: LAST DOSE WILL BE 03/27/22 PM Rx Instructions: resume on 03/31, evening dose calcitriol 0.25 mcg capsule 0.25 mcg PO DAILY ascorbic acid (vitamin C) 500 mg tablet 500 mg PO DAILY Primary Care Provider: Martin Nunez Referrals: Martin Nunez DO [Primary Care Provider] - 5-7 Days Disposition Disposition: Home, Self Care
[2023-02-12 11:57] VITALS: BMI 33.2
--- NOTE | 2023-02-12 11:57 | CT_ITS ---
INDICATION: Abdominal pain EXAMINATION: CT ABDOMEN AND PELVIS WITHOUT CONTRAST - CT Abdomen And Pelvis W/O Contrast Injection TECHNIQUE: Helically acquired images were obtained of the abdomen and pelvis without oral or IV contrast. A radiation dose optimization technique was used for this scan. IV Contrast dosage and agent: None. Oral contrast: None. RADIATION DOSAGE (If Supplied By Facility): CTDIvol = ( 19.26 ) mGy, DLP = ( 1024.82 ) mGycm COMPARISON: Prior study dated: December 28, 2019 FINDINGS: LOWER CHEST: There are emphysematous changes within the visualized lungs. There are scattered granulomas. There are coronary artery calcifications. The lack of intravenous contrast limits evaluation of solid visceral organs. LIVER: Homogeneous. No focal mass. GALLBLADDER AND BILIARY TREE: There are gallstones within a distended gallbladder. There is questionable stranding adjacent to the neck of the gallbladder. No intra- or extrahepatic biliary ductal dilation. PANCREAS: No focal cystic or solid mass. SPLEEN: There are splenic granulomas. ADRENAL GLANDS: There are stable bilateral low-attenuation adrenal nodules suggestive of cysts. KIDNEYS AND URETERS: There is bilateral renal atrophy. There is severe right-sided hydroureteronephrosis. There is a curvilinear high attenuation 1.9 cm density within the right ureteral pelvic junction. There is a similar appearing 1.8 cm focus within the mid/distal ureter. There are bilateral renal cysts. PERITONEUM: No ascites or free air. No other fluid collection. BOWEL: There is a small hiatal hernia. The colon is incompletely distended. There are diverticula arising from the colon. There is circumferential wall thickening of the colon. No evidence of acute appendicitis. LYMPH NODES: No enlarged mesenteric or retroperitoneal lymph nodes. VESSELS: Aorta is non-dilated. There are peripheral calcifications of the abdominal aorta. There is an IVC filter in place. URINARY BLADDER: There appears to be a neobladder within the pelvis. REPRODUCTIVE ORGANS: No pelvic masses. ABDOMINAL WALL: There is a small fat-containing supraumbilical hernia. BONES: There are degenerative changes of the lumbar spine.. CT/Abdomen/Pel W ORAL Cont Only IMPRESSION: Circumferential wall thickening of the colon concerning for colitis. Distended gallbladder associated with cholelithiasis and possible stranding adjacent to the gallbladder neck, consider right upper quadrant ultrasound for further characterization. Severe right-sided hydroureteronephrosis, likely chronic associated with curvilinear foci within the ureteropelvic junction and mid/distal ureter which may be secondary to prior instrumentation. Colonic diverticulosis. Atherosclerosis. Small hiatal hernia. Emphysema. Electronically Signed: Wendi Sanders MD at 15:56 EDT ,
--- NOTE | 2023-02-12 11:59 | RAD_ITS ---
INDICATION: Injury/Pain EXAMINATION/TECHNIQUE: X-RAY - LEFT XR Foot Min 3 Views 3 VIEWS COMPARISON: No relevant prior comparison study available FINDINGS: SOFT TISSUES: No soft tissue swelling or gas. No radiopaque foreign body. BONES/JOINTS: No acute fracture or subluxation.. Normal alignment. There are degenerative changes throughout the foot. No sclerotic or destructive changes observed. RAD/Foot min 3 Views IMPRESSION: Degenerative changes. Electronically Signed: Wendi Sanders MD at 12:52 EDT ,
[2023-02-12 12:44] LABS: Absolute Lymphocyte Count 0.78 X10^3/uL (0.83-4.51); Absolute Neutrophil Count 5.2 X10^3/uL (2.0-7.7); Basophil# 0.03 X10^3/uL; Basophil% 0.4 % (0-1); Eosinophil# 0.16 X10^3/uL; Eosinophils% 2.3 % (0-5); Hematocrit 32.8 % (40-54); Hemoglobin 10.6 g/dL (13.0-16.5); Lymphocyte # 0.78 X10^3/ul (0.83-4.51); Lymphocyte % 11.1 % (19-41); Mean Corp Hgb Conc 32.3 g/dL (32-36); Mean Corpuscular Hgb 33.4 pg (27.0-32.0); Mean Corpuscular Volume 103.5 fL (80-94); Mean Platelet Vol. 10.1 fl (6.2-12.0); Monocyte# 0.86 X10^3/uL; Monocyte% 12.2 % (0-10); NRBC Flagged by Analyzer 0 % (0-5); Neutrophil # 5.17 X10^3/uL (2.7-7.7); Neutrophil % 73.4 % (47-70); Platelet Count 176 K/mm3 (150-450); RBC Distribution Width CV 14.1 % (11.6-14.6); RBC Distribution Width SD 53.7 fl (35.1-43.9); Red Blood Count 3.17 M/mm3 (4.6-6.2)
[2023-02-12 12:57] LABS: Anion Gap 14 (5-15); BUN 87 mg/dL (7-18); BUN/Creat Ratio 10.3 RATIO (10-20); Calcium,Total 8.8 mg/dL (8.5-10.1); Chloride 102 mmol/L (98-107); Creatinine, Serum 8.41 mg/dL (0.70-1.30); EST Glomerular Filtration Rate 7 mL/min (>60); Est Glom Filt Rate - Afr Amer 8 mL/min (>60); Estimated Creatinine Clearance 7.23 ml/min; Glucose 110 mg/dL (74-106); Potassium 3.3 mmol/L (3.5-5.1); Sodium Level 141 mmol/L (136-145)
[2023-02-12 13:01] LABS: International Normalized Ratio 1.4; Prothrombin Time (Protime)PT. 17.2 SECONDS (11.7-14.9)
[2023-02-12 13:02] LABS: Partial Thromboplast Time 36.6 Seconds (24.1-36.2)
[2023-02-12 13:35] VITALS: BP 112/50; PULSE 95; RESP 18
[2023-02-12 15:00] VITALS: RESP 18
[2023-02-12 17:00] VITALS: RESP 18
[2023-02-12] MEDS: Ciprofloxacin 500 MG Tablet PO (17:02)
[2023-02-12] MEDS: metroNIDAZOLE 500 MG Tablet PO (17:02)
== END 2023-02-12 17:21 | disposition home or self-care (01) ==
PROVIDERS: Emergency Provider Emergency Medicine; PCP Student in an Organized Health Care Education/Training Program; Visit Provider Emergency Medicine
DX: K52.9 Noninfective gastroenteritis and colitis, unspecified (principal); I50.9 Heart failure, unspecified; N18.6 End stage renal disease; Z87.891 Personal history of nicotine dependence; Z86.718 Personal history of other venous thrombosis and embolism; Z86.711 Personal history of pulmonary embolism
CPT/HCPCS: 73630; 74176; 80048; 85025; 85610; 85730; 96360; 99285; J7040; A4216

== ENCOUNTER 2023-02-28 17:04 | Inpatient (IN) | payer MEDICARE, BC, SELFPAY ==
[2023-02-28 17:05] VITALS: BP 119/73; PULSE 86; RESP 18; TEMP 36.6; O2SAT 92; BMI 34.2
--- NOTE | 2023-02-28 17:29 | CT_ITS ---
STUDY: CT ABDOMEN AND PELVIS WITHOUT CONTRAST REASON FOR EXAM: Male, 77 years old. abdominal pain RADIATION DOSAGE (If Supplied By Facility): CTDIvol = ( 17.73 ) mGy, DLP = ( 908.08 ) mGycm TECHNIQUE: Transaxial images were obtained from the dome of the diaphragm to the symphysis pubis without oral contrast, and without intravenous contrast. Sagittal and coronal images were reconstructed. Individualized dose optimization techniques were used for this CT. COMPARISON: February 12, 2023 FINDINGS: The visualized lung bases demonstrate emphysematous changes. The visualized portions of the heart are within normal limits. 1 cm left hepatic cyst in the liver. Cholelithiasis. No significant dilatation of the extrahepatic biliary system. Granulomatous calcifications in the spleen. Normal pancreas. 2.3 cm right adrenal nodule. 2.1 cm left adrenal nodule Severe hydronephrosis of the right kidney. 2.3 cm curvilinear density at the right UPJ and another 1.5 cm curvilinear density at the mid right ureter requiring further evaluation. Up to 3.3 cm cysts in the left kidney. Small hiatal hernia. Normal small intestine. Diverticulosis of the colon. The appendix is visualized and appears normal. Diffusely calcified abdominal aorta with a 3 cm focal aneurysm at the infrarenal segment. There is a filter in the inferior vena cava. Normal retroperitoneum. There is a probable neobladder. Normal abdominal wall. Normal osseous structures. CT/Abdomen/Pelvis without Cont IMPRESSION: Severe right hydronephrosis is again noted with 2 curvilinear densities in the right mid ureter and at the right UPJ. Neobladder in the pelvis. Stable focal abdominal aortic aneurysm. Small hiatal hernia. Bilateral stable adrenal nodules. Cholelithiasis. Electronically Signed: Balbir Armendariz DO at 19:10 EDT Reading Location ID and State: [facility] / [place] Tel [phone], Service support ,
--- NOTE | 2023-02-28 17:33 | EX.ED.DYSGE1 ---
HPI <AJAY Ames - Last Filed: 02/28/23 21:18> History of Present Illness Chief Complaint: Weakness Narrative Narrative: Patient presenting today due to bright red stools that started today. He denies any history of GI bleed or hemorrhoids. He does take Eliquis for history of A-fib. He reports that he has had diarrhea since mid January and was treated with Ciprofloxacin and Flagyl without relief of his symptoms. He reports a history of C. difficile 10 years ago and is not sure if this is similar or not. He has been feeling lightheaded over the past few weeks, he has intermittent shortness of breath both at rest and with exertion, and over the past few days he has been experiencing night sweats. He does not use O2 at home. Patient is in dialysis due to CKD. PMH includes CKD, A-fib, CHF, and CAD. PFSH <AJAY Ames - Last Filed: 02/28/23 21:18> PFS Medical History Abnormal finding on ultrasound Acute kidney injury Anemia Aortic root dilatation Bladder cancer Bladder cancer CHF (congestive heart failure) CKD (chronic kidney disease) stage 5, GFR less than 15 ml/min Elevated troponin ESRD (end stage renal disease) ESRD (end stage renal disease) on dialysis Essential hypertension Hepatic cyst History of DVT (deep vein thrombosis) History of pulmonary embolism History of solitary pulmonary nodule HIT (heparin-induced thrombocytopenia) HLD (hyperlipidemia) Hyperparathyroidism Iron deficiency anemia Iron deficiency anemia Left upper chest discomfort Lower gastrointestinal bleeding Lymphoma Lymphoma Neutropenic fever Pancytopenia Paroxysmal A-fib Preop cardiovascular exam Pulmonary embolism Renal calculus Shortness of breath VTE (venous thromboembolism) Home Medications carvedilol 6.25 mg tablet 3.125 mg PO BID blood pressure 04/24/17 [History Last Taken 02/15/22] polyethylene glycol 3350 17 gram/dose oral powder 17 g PO DAILY PRN Constipation 07/02/20 [History Last Taken 02/14/22] vitamin B complex 1 tab PO DAILY SUPPLEMENT 07/02/20 [History Last Taken 02/15/22] vitamin B complex and vitamin C no.20-folic acid 1 mg capsule (Virt-Caps) 1 cap PO DAILY #0 caps 02/23/22 [Rx Last Taken Unknown] ascorbic acid (vitamin C) 500 mg tablet 500 mg PO DAILY supplement 03/12/22 [History Last Taken Unknown] apixaban 2.5 mg tablet (Eliquis) 2.5 mg PO BID #0 tabs 03/30/22 [Rx Last Taken Unknown] calcitriol 0.25 mcg capsule 0.25 mcg PO DAILY supplement 07/30/22 [History Last Taken Unknown] calcium acetate(phosphat bind) 667 mg tablet 2,001 mg PO TID 07/30/22 [History Last Taken Unknown] Allergy/AdvReac Type Severity Reaction Status Date / Time enoxaparin [From Lovenox] Allergy Other Verified 02/28/23 17:05 heparin Allergy Other Verified 02/28/23 17:05 aspirin AdvReac Other Verified 02/28/23 17:05 Iodinated Contrast Media AdvReac OTHER Verified 02/28/23 17:05 [CONTRASTS] Family History Father Cancer lung Arrhythmia Brother Cancer Surgical History AV fistula H/O total cystectomy History of cataract extraction History of corrected cleft lip and palate History of tonsillectomy Social History household members: none Smoking Status: Former smoker how long ago did patient quit smokin alcohol intake: never substance use type: does not use caffeine: No ROS <AJAY Ames - Last Filed: 02/28/23 21:18> ROS ED Constitutional Constitutional ED: Reports sweats; Denies chills or fever(s) Cardiovascular Cardiovascular: Denies chest pain or palpitations Respiratory/Chest Respiratory/Chest: Reports dyspnea and dyspnea on exertion; Denies cough Gastrointestinal Gastrointestinal: Reports diarrhea; Denies abdominal pain, nausea or vomiting Genitourinary Genitourinary ED: Denies dysuria, hematuria or urinary urgency Musculoskeletal Musculoskeletal: Denies arthralgias or myalgias Integumentary Denies rash Neurologic Neurologic: Reports weakness; Denies dizziness EXAM <AJAY Ames - Last Filed: 02/28/23 21:18> Physical Exam Const Vital Signs: 02/28/23 17:05 02/28/23 17:09 02/28/23 18:47 Temperature 98 F Temperature Source Oral Pulse Rate 86 80 Respiratory Rate 18 14 Respiratory Effort Short of Breath Respiratory Pattern Normal Blood Pressure 119/73 120/69 Blood Pressure Mean 88 86 Pulse Ox 92 98 Oxygen Delivery Method Room Air Nasal Cannula Oxygen Flow Rate (L/min) 2 Positive well nourished, well developed and no apparent distress General Appearance ED: well developed HEENT Reports normocephalic and head/scalp atraumatic Mouth ED: Yes moist mucous membranes normal Eyes PERRL and EOMs intact bilaterally Neck full ROM and supple Chest Wall inspection of chest normal Resp normal respiratory effort and clear to auscultation bilaterally Cardio regular rate and regular rhythm GI soft to palpation, non-distended and no masses GI Narrative: Generalized tenderness to palpation with some guarding. Back/Spine normal ROM and normal to inspection Extremity normal to inspection and full ROM Neuro oriented x3, CN's II-XII intact bilaterally, moves all extremities, no focal motor deficits and no sensory deficits noted Sensorium / Orientation: awake and alert Psych mental status grossly normal and thought process normal Skin no rashes or lesions noted and no wounds <Dr. Behzad Phillips DO - Last Filed: 02/28/23 23:31> Physical Exam Const Vital Signs: 02/28/23 17:05 02/28/23 17:09 02/28/23 18:47 Temperature 98 F Temperature Source Oral Pulse Rate 86 80 Respiratory Rate 18 14 Respiratory Effort Short of Breath Respiratory Pattern Normal Blood Pressure 119/73 120/69 Blood Pressure Mean 88 86 Pulse Ox 92 98 Oxygen Delivery Method Room Air Nasal Cannula Oxygen Flow Rate (L/min) 2 [facility] <AJAY Ames - Last Filed: 02/28/23 21:18> [facility] Narrative Medical decision making narrative: Patient presenting today due to bright red blood in his stool earlier today. No history of GI bleed. He is on Eliquis for A-fib. He has had diarrhea for the past several weeks, he has not performed a stool study, this will be obtained if patient is able to perform one. Labs will be obtained to rule out leukocytosis, anemia, electrolyte abnormality, JOHANNA, hepatobiliary etiology, and ACS. Chest x-ray will be obtained to rule out cardiopulmonary abnormality. On physical exam when I was palpating patient's abdomen he was surprisingly tender diffusely with minimal guarding. CT of the abdomen and pelvis will be obtained for this reason to rule out abdominal etiology. CT shows severe right hydronephrosis with 2 curvilinear densities, it is unclear whether or not this has been worked up in the past. Patient was previously admitted in April 2022 due to to elevated troponin, cardiology at that time felt that this was a type II NSTEMI, likely due to metabolic demand. Initial troponin here is 434, repeat troponin 450. Patient is not complaining of any chest pain here, he does not have any shortness of breath, I suspect that this is likely due to metabolic demand again. Patient's H&H is 8.9 and 48.4. Previous hemoglobin was 10.6 on 02/12. Given patient's elevated troponin and GI bleed, I do feel that he needs to be admitted to the hospital. I discussed patient with Dr. Garay. I will discuss patient with hospitalist. He will be admitted in stable condition. Lab Data Attestation: I reviewed the patient's lab results. Lab results narrative: H&H 8.9 and 24, platelet 147, potassium 3.4, BUN 54, creatinine 6.55, GFR 9, AST 12, ALT 14 Labs: Laboratory Results - last 24 hr 02/28/23 02/28/23 18:00 20:10 WBC 4.4 RBC 2.63 L Hgb 8.9 L Hct 28.4 L MCV 108.0 H MCH 33.8 H MCHC 31.3 L RDW Std Deviation 61.4 H RDW Coeff of Lencho 15.6 H Plt Count 147 L MPV 10.2 Immature Gran % (Auto) 0.200 Neut % (Auto) 66.4 Lymph % (Auto) 11.[address] [place] % (Auto) 17.3 H Eos % (Auto) 3.6 Baso % (Auto) 0.7 Absolute Neuts (auto) 2.9 Absolute Lymphs (auto) 0.52 L Nucleated RBC % 0 Differential Comment SCANNED Sodium 140 Potassium 3.4 L Chloride 103 Carbon Dioxide 28.0 Anion Gap 9 BUN 54 H Creatinine 6.55 H Estim Creat Clear Calc 9.59 Est GFR (MDRD) Af Amer 11 L Est GFR (MDRD) Non-Af 9 L BUN/Creatinine Ratio 8.2 L Glucose 156 H Calcium 8.4 L Total Bilirubin 0.60 AST 12 L ALT 14 L Alkaline Phosphatase 48 Troponin I High Sens 434 H* 450 H* Total Protein 6.1 L Albumin 2.3 L Globulin 3.8 Albumin/Globulin Ratio 0.6 L Radiography X-Ray: Read by ED Physician and Read by Radiologist Diagnostic Testing: Clinical Impression(s) from Imaging Studies Abdomen/Pelvis CT 02/28/23 17:29 IMPRESSION: Severe right hydronephrosis is again noted with 2 curvilinear densities in the right mid ureter and at the right UPJ. Neobladder in the pelvis. Stable focal abdominal aortic aneurysm. Small hiatal hernia. Bilateral stable adrenal nodules. Cholelithiasis. Electronically Signed: Balbir Armendariz DO at 19:10 EDT , Chest X-Ray 02/28/23 18:40 IMPRESSION: Right basilar interstitial prominence. Left pulmonary and hilar granulomatous calcifications. Electronically Signed: Balbir Armendariz DO at 19:15 EDT , EKG Initial EKG: Comments: 86 bpm, atrial fibrillation, left axis deviation, right bundle branch block, no ST elevation, reviewed and interpreted by attending ED physician <Dr. Bhezad Phillips, - Last Filed: 02/28/23 23:31> [facility] Lab Data Labs: Laboratory Results - last 24 hr 02/28/23 02/28/23 18:00 20:10 WBC 4.4 RBC 2.63 L Hgb 8.9 L Hct 28.4 L MCV 108.0 H MCH 33.8 H MCHC 31.3 L RDW Std Deviation 61.4 H RDW Coeff of Lencho 15.6 H Plt Count 147 L MPV 10.2 Immature Gran % (Auto) 0.200 Neut % (Auto) 66.4 Lymph % (Auto) 11.[address] [place] % (Auto) 17.3 H Eos % (Auto) 3.6 Baso % (Auto) 0.7 Absolute Neuts (auto) 2.9 Absolute Lymphs (auto) 0.52 L Nucleated RBC % 0 Differential Comment SCANNED Sodium 140 Potassium 3.4 L Chloride 103 Carbon Dioxide 28.0 Anion Gap 9 BUN 54 H Creatinine 6.55 H Estim Creat Clear Calc 9.59 Est GFR (MDRD) Af Amer 11 L Est GFR (MDRD) Non-Af 9 L BUN/Creatinine Ratio 8.2 L Glucose 156 H Calcium 8.4 L Total Bilirubin 0.60 AST 12 L ALT 14 L Alkaline Phosphatase 48 Troponin I High Sens 434 H* 450 H* Total Protein 6.1 L Albumin 2.3 L Globulin 3.8 Albumin/Globulin Ratio 0.6 L Radiography Diagnostic Testing: Clinical Impression(s) from Imaging Studies Abdomen/Pelvis CT 02/28/23 17:29 IMPRESSION: Severe right hydronephrosis is again noted with 2 curvilinear densities in the right mid ureter and at the right UPJ. Neobladder in the pelvis. Stable focal abdominal aortic aneurysm. Small hiatal hernia. Bilateral stable adrenal nodules. Cholelithiasis. Electronically Signed: Balbir Armendariz DO at 19:10 EDT , Chest X-Ray 02/28/23 18:40 IMPRESSION: Right basilar interstitial prominence. Left pulmonary and hilar granulomatous calcifications. Electronically Signed: Balbir Armendariz DO at 19:15 EDT , EKG Initial EKG: Attestation: I personally reviewed and interpreted this EKG as follows: Management Discussion w/another healthcare provider: Hospitalist Treatment and Re-Evaluation Comments:: I have personally performed a face to face assessment of the patient and have reviewed the LILIAM Note. I performed a substantive portion of the visit including all aspects of the following. My cuellar findings include: History is 77-year-old male presenting to the emergency department with GI bleed. On Eliquis for atrial fibrillation. He feels generally weak. He has been treated for diarrhea has been ongoing for about 2 weeks. Previously on Cipro Flagyl. Exam is tender to palpation in the abdomen without rebound tenderness. Nonfebrile. He is alert and oriented. Medical Decison Making patient's hemoglobin is 8.9 with a platelet count of 147. Creatinine 6.55 with a BUN of 54. Troponin was elevated at 450. I do not see evidence of ACS on his EKG. He is not complaining of chest pain I suspect this is type II elevation. He is heme positive on rectal examination with obvious blood. Plan will be admission into the hospital. Discharge Plan Dx/Rx/DC Orders Clinical Impression: Light-headedness, CKD (chronic kidney disease) stage 5, GFR less than 15 ml/min, Elevated troponin, Acute GI bleeding Disposition Disposition: Acute Care Hospital [facility] Discharge Date/Time: 02/28/23 23:21
[2023-02-28 18:06] LABS: Absolute Lymphocyte Count 0.52 X10^3/uL (0.83-4.51); Absolute Neutrophil Count 2.9 X10^3/uL (2.0-7.7); Basophil# 0.03 X10^3/uL; Basophil% 0.7 % (0-1); Eosinophil# 0.16 X10^3/uL; Eosinophils% 3.6 % (0-5); Hematocrit 28.4 % (40-54); Hemoglobin 8.9 g/dL (13.0-16.5); Lymphocyte # 0.52 X10^3/ul (0.83-4.51); Lymphocyte % 11.8 % (19-41); Mean Corp Hgb Conc 31.3 g/dL (32-36); Mean Corpuscular Hgb 33.8 pg (27.0-32.0); Mean Platelet Vol. 10.2 fl (6.2-12.0); Monocyte# 0.76 X10^3/uL; Monocyte% 17.3 % (0-10); NRBC Flagged by Analyzer 0 % (0-5); Neutrophil # 2.91 X10^3/uL (2.7-7.7); Neutrophil % 66.4 % (47-70); POSITIVE DIFFERENTIAL YES; POSITIVE MORPHOLOGY YES; Platelet Count 147 K/mm3 (150-450); RBC Distribution Width CV 15.6 % (11.6-14.6); RBC Distribution Width SD 61.4 fl (35.1-43.9); Red Blood Count 2.63 M/mm3 (4.6-6.2); White Blood Count 4.4 K/mm3 (4.4-11.0)
[2023-02-28 18:08] LABS: Differential Indicated SCAN CRITERIA MET
[2023-02-28 18:30] LABS: Differential Comment SCANNED
[2023-02-28 18:36] LABS: ALB/GLOB Ratio 0.6 RATIO (0.9-2.4); AST(SGOT) 12 U/L (15-37); Alanine Aminotransfer ALT/SGPT 14 U/L (16-61); Albumin, Serum 2.3 g/dL (3.2-5.0); Alkaline Phosphatase 48 U/L (45-117); Anion Gap 9 (5-15); BUN 54 mg/dL (7-18); BUN/Creat Ratio 8.2 RATIO (10-20); Calcium,Total 8.4 mg/dL (8.5-10.1); Chloride 103 mmol/L (98-107); Creatinine, Serum 6.55 mg/dL (0.70-1.30); EST Glomerular Filtration Rate 9 mL/min (>60); Est Glom Filt Rate - Afr Amer 11 mL/min (>60); Estimated Creatinine Clearance 9.59 ml/min; Globulin 3.8 g/dL (2.2-4.2); Glucose 156 mg/dL (74-106); Potassium 3.4 mmol/L (3.5-5.1); Protein, Total 6.1 g/dL (6.4-8.2); Sodium Level 140 mmol/L (136-145); Troponin-I HS 434 pg/mL (3.0-78.0)
--- NOTE | 2023-02-28 18:40 | RAD_ITS ---
INDICATION: shortness of breath EXAMINATION/TECHNIQUE: X-RAY - XR Chest 2 Views COMPARISON: May 02, 2022 FINDINGS: LINES/DEVICES: Stable right-sided venous port. LUNGS: No consolidation, edema or effusion. Right basilar interstitial prominence. Left pulmonary granuloma. No pneumothorax. MEDIASTINUM AND CARDIOVASCULAR STRUCTURES: Cardiac silhouette not enlarged. Calcified aortic arch. Stable left hilar calcification.. BONES AND SOFT TISSUES: Unremarkable. RAD/Chest PA and Lateral IMPRESSION: Right basilar interstitial prominence. Left pulmonary and hilar granulomatous calcifications. Electronically Signed: Balbir Armendariz DO at 19:15 EDT ,
--- NOTE | 2023-02-28 18:46 | EKG12_ITS ---
Test Reason : DYSRHYTHMIA Blood Pressure : / mmHG Vent. Rate : 086 BPM Atrial Rate : 000 BPM P-R Int : 000 ms QRS Dur : 162 ms QT Int : 412 ms P-R-T Axes : 000 -80 107 degrees QTc Int : 493 ms Atrial fibrillation Left axis deviation Right bundle branch block T wave abnormality, consider lateral ischemia Abnormal ECG Confirmed by SHAYNA BYERS, JEANETTE ([id number]), commissioning editor CLIFF MARIE ([id number]) on 03/03/2023 1:56:21 PM Referred By: Confirmed By:JEANETTE CORRAL MD
[2023-02-28 18:47] VITALS: BP 120/69; PULSE 80; RESP 14; O2SAT 98
[2023-02-28 20:48] LABS: Troponin-I HS 450 pg/mL (3.0-78.0)
[2023-02-28 21:27] VITALS: BP 118/70; PULSE 90; RESP 20; TEMP 36.1; O2SAT 96
--- NOTE | 2023-02-28 21:29 | HP.PCM.HOS_ITS ---
HPI - General General Date of Admission: 02/28/23 Date of Service: 02/28/23 Chief Complaint: Bright red blood per rectum HPI Narrative RIA MARIANO, is a 77 M with a significant history of end-stage renal disease on dialysis; bladder cancer status post cystectomy with reconstruction of neobladder; end-stage renal disease on dialysis Tuesday; and Saturdays; and atrial fibrillation on beta-marixa and Eliquis who presents to the emergency department with large bright red blood per rectum on the same day of presentation. As at the time of history taking patient bowels are just moved once. Associated with his symptoms is weakness and lightheadedness. Patient has lightheadedness with any movement involving his head. He reports diarrhea in the past 2 to 3 weeks and has completed ciprofloxacin and Flagyl for his diarrhea. Emergency department physician language assistant reported that on physical examination patient had dark stools which returned positive for blood. ED provider discussed the case with gastroenterology who recommended the patient stays at the hospital for possible observation overnight and possible scope if needed. [facility] Medical History Abnormal finding on ultrasound Acute kidney injury Anemia Aortic root dilatation Bladder cancer Bladder cancer CHF (congestive heart failure) CKD (chronic kidney disease) stage 5, GFR less than 15 ml/min Elevated troponin ESRD (end stage renal disease) ESRD (end stage renal disease) on dialysis Essential hypertension Hepatic cyst History of DVT (deep vein thrombosis) History of pulmonary embolism History of solitary pulmonary nodule HIT (heparin-induced thrombocytopenia) HLD (hyperlipidemia) Hyperparathyroidism Iron deficiency anemia Iron deficiency anemia Left upper chest discomfort Lower gastrointestinal bleeding Lymphoma Lymphoma Neutropenic fever Pancytopenia Paroxysmal A-fib Preop cardiovascular exam Pulmonary embolism Renal calculus Shortness of breath VTE (venous thromboembolism) Home Medications carvedilol 6.25 mg tablet 3.125 mg PO BID blood pressure 04/24/17 [History Last Taken 02/28/23 11:00 3.125 mg] vitamin B complex 1 tab PO DAILY SUPPLEMENT 07/02/20 [History Last Taken 02/28/23 11:00] vitamin B complex and vitamin C no.20-folic acid 1 mg capsule (Virt-Caps) 1 cap PO DAILY #0 caps 02/23/22 [Rx Last Taken 02/28/23 11:00] ascorbic acid (vitamin C) 500 mg tablet 500 mg PO DAILY supplement 03/12/22 [History Last Taken 02/28/23] apixaban 2.5 mg tablet (Eliquis) 2.5 mg PO BID #0 tabs 03/30/22 [Rx Last Taken 02/28/23 11:00 2.5 mg] calcitriol 0.25 mcg capsule 0.25 mcg PO DAILY supplement 07/30/22 [History Last Taken 02/28/23] sucroferric oxyhydroxide 500 mg chewable tablet (Velphoro) 500 mg PO .with meals 03/01/23 [History Last Taken Unknown] Allergy/AdvReac Type Severity Reaction Status Date / Time enoxaparin [From Lovenox] Allergy Other Verified 02/28/23 17:05 heparin Allergy Other Verified 02/28/23 17:05 aspirin AdvReac Other Verified 02/28/23 17:05 Iodinated Contrast Media AdvReac OTHER Verified 02/28/23 17:05 [CONTRASTS] Family History Father Cancer lung Arrhythmia Brother Cancer Surgical History AV fistula H/O total cystectomy History of cataract extraction History of corrected cleft lip and palate History of tonsillectomy Social History household members: none Smoking Status: Former smoker how long ago did patient quit smokin alcohol intake: never substance use type: does not use caffeine: No ROS ROS Narrative Pertinent positives and pertinent negatives as noted in HPI. All other systems were reviewed and are negative Vital Signs Vital Signs Vital Signs: 02/28/23 17:05 02/28/23 17:09 02/28/23 18:47 Temperature 98 F Temperature Source Oral Pulse Rate 86 80 Respiratory Rate 18 14 Respiratory Effort Short of Breath Respiratory Pattern Normal Blood Pressure 119/73 120/69 Blood Pressure Mean 88 86 Pulse Ox 92 98 Oxygen Delivery Method Room Air Nasal Cannula Oxygen Flow Rate (L/min) 2 02/28/23 21:27 02/28/23 21:27 Temperature 97 F L Temperature Source Temporal Pulse Rate 90 Respiratory Rate 20 H 20 H Respiratory Effort Respiratory Pattern Blood Pressure 118/70 Blood Pressure Mean 86 Pulse Ox 96 Oxygen Delivery Method Oxygen Flow Rate (L/min) Weight Weight: 105.2 kg Body Mass Index (BMI) 34.2 Physical Exam Narrative Physical exam: General: Well-nourished, well-developed. Head: Normocephalic, atraumatic, no tenderness Eyes: Vision is grossly intact. EOMI ENT, no trauma, moist mucous membranes, no rhinorrhea Neck: Nontender, No thyromegaly. CVS: Regular rate and rhythm. S1-S2 present. No murmur, gallop or rub. Respiratory : clear to auscultation bilaterally, chest wall nontender Abdomen: Soft, nontender, nondistended, normal bowel sounds, no masses : Deferred Back: Nontender, no CVA tenderness Extremities: Nontender full range of motion, no trauma Skin: Normal color, no trauma, abrasions Neuro: Alert, oriented, cranial nerves II through XII grossly intact. Psychiatry: Normal mood. Normal affect. Not depressed. Not anxious. Results Lab / Micro Data 03/01/23 00:08 02/28/23 18:00 Labs: Laboratory Results - last 24 hr 02/28/23 18:00: WBC 4.4, RBC 2.63 L, Hgb 8.9 L, Hct 28.4 L, MCV 108.0 H, MCH 33. 8 H, MCHC 31.3 L, RDW Std Deviation 61.4 H, RDW Coeff of Lencho 15.6 H, Plt Count 147 L, MPV 10.2, Immature Gran % (Auto) 0.200, Neut % (Auto) 66.4, Lymph % (Auto) 11.8 L, [place] % (Auto) 17.3 H, Eos % (Auto) 3.6, Baso % (Auto) 0.7, Absolute Neuts (auto) 2.9, Absolute Lymphs (auto) 0.52 L, Nucleated RBC % 0, Differential Comment SCANNED, Sodium 140, Potassium 3.4 L, Chloride 103, Carbon Dioxide 28.0, Anion Gap 9, BUN 54 H, Creatinine 6.55 H, Estim Creat Clear Calc 9.59, Est GFR (MDRD) Af Amer 11 L, Est GFR (MDRD) Non-Af 9 L, BUN/Creatinine Ratio 8.2 L, Glucose 156 H, Calcium 8.4 L, Total Bilirubin 0.60, AST 12 L, ALT 14 L, Alkaline Phosphatase 48, Troponin I High Sens 434 H*, Total Protein 6.1 L, Albumin 2.3 L, Globulin 3.8, Albumin/Globulin Ratio 0.6 L 02/28/23 20:10: Troponin I High Sens 450 H* Micro: Microbiology 02/28/23 18:18 Stool Stool Occult Blood (ROSEMARY) - Final Occult Blood Positive Radiology Impression Abdomen/Pelvis CT 02/28/23 17:29 IMPRESSION: Severe right hydronephrosis is again noted with 2 curvilinear densities in the right mid ureter and at the right UPJ. Neobladder in the pelvis. Stable focal abdominal aortic aneurysm. Small hiatal hernia. Bilateral stable adrenal nodules. Cholelithiasis. Electronically Signed: Balbir Armendariz DO at 19:10 EDT , Chest X-Ray 02/28/23 18:40 IMPRESSION: Right basilar interstitial prominence. Left pulmonary and hilar granulomatous calcifications. Electronically Signed: Balbir Armendariz DO at 19:15 EDT , Assessment & Plan Assessment/Plan (1) Acute GI bleeding: (2) Elevated troponin: (3) Light-headedness: (4) Acute blood loss anemia (ABLA): PLAN: Plan ABLA with likely lower GI blood in the setting of chronic anemia Chronic anemia Likely secondary to CKD Hemoglobin on presentation was 8.9. His hemoglobin on 02/28/23 was 10.6 Admit to monitored bed on [facility]. npo after midnight. With patient being a dialysis will avoid IV fluid at this time. H&H every 6 hours No anticoagulants for DVT prophylaxis SCD Gastroenterology consult Chest x-ray with right basilar interstitial prominence; left pulmonary inhaler: and hilar granulomatous calcifications Elevated troponin Troponin on presentation was 434; repeat was 450. He denies any chest pain. A high sensitive troponin in April 2022 ranged from 4 99-535. Likely chronic from CKD. End-stage renal disease on dialysis (dialysis Tuesdays, and Saturdays) Patient follows up with Dr. Sonia He. Nephrology consult. Renal diet. History of A-fib Eliquis on hold secondary to acute bleed. Carvedilol continued. DVT prophylaxis: Allergic to Lovenox and heparin but patient is not even a candidate of anticoagulation secondary to GI bleed. SCDs ordered. Time spent in the patient's overall evaluation,decision-making process, review of diagnostic data, adjustment of management, discussion with other providers, nursing nursing and ancillary staff involved in patient's care documentation, 70 minutes. Charges/Coding Visit Charges Inpatient E&M: 69120 Init Hosp L3
[2023-02-28 23:00] VITALS: BP 116/55; PULSE 87; RESP 16; O2SAT 93
[2023-02-28 23:40] VITALS: BP 110/65; PULSE 78; RESP 18; TEMP 36.7; O2SAT 100
[2023-02-28 23:43] VITALS: BMI 31.8
[2023-03-01] VITALS (15 sets, daily range): BP systolic 60–206; BP diastolic 50–69; PULSE 68–96; RESP 12–18; TEMP 36.4–36.7; O2SAT 93–97; BMI 31.9; BMI 31.8
[2023-03-01 00:16] LABS: Hematocrit 33.7 % (40-54); Hemoglobin 10.7 g/dL (13.0-16.5)
[2023-03-01 06:44] LABS: Hematocrit 29.1 % (40-54); Hemoglobin 9.1 g/dL (13.0-16.5)
[2023-03-01 07:08] LABS: Anion Gap 8 (5-15); BUN 62 mg/dL (7-18); BUN/Creat Ratio 8.9 RATIO (10-20); Calcium,Total 8.5 mg/dL (8.5-10.1); Chloride 104 mmol/L (98-107); Creatinine, Serum 6.99 mg/dL (0.70-1.30); EST Glomerular Filtration Rate 8 mL/min (>60); Est Glom Filt Rate - Afr Amer 10 mL/min (>60); Estimated Creatinine Clearance 8.99 ml/min; Glucose 109 mg/dL (74-106); Potassium 3.5 mmol/L (3.5-5.1); Sodium Level 139 mmol/L (136-145)
--- NOTE | 2023-03-01 09:01 | PCM.CONS.R ---
Assessment & Plan Assessment/Plan (1) ESRD (end stage renal disease) on dialysis: PLAN: dialysis today no heparin due to GI bleed (2) Acute on chronic anemia: PLAN: hgb 9g GI consulted (3) Acute GI bleeding: PLAN: GI on consult (4) Light-headedness: PLAN: coreg recently reduced (5) Atrial fibrillation: QUALIFIERS: Atrial fibrillation type: unspecified chronic Qualified Code(s): I48.20 - Chronic atrial fibrillation, unspecified PLAN: chronic on eliquis as outpt HPI Consult Data Date of Consult: 03/01/23 HPI Narrative Reason for Consultation: ESRD HD TTS HPI Narrative: RIA MARIANO, is a 77 M who presents with BRBPR on Eliquis for afib. GI consulted. He has ESRD on HD TTS, dialysis due today. Hgb stable at 9.1g on LUCHO therapy on dialysis. He complains of weakness, lightheadedness. BP has been low on dialysis. Coreg dose recently decreased. He reports diarrhea in the past 2 to 3 weeks and has completed ciprofloxacin and Flagyl for his diarrhea. He still has bloody stools with LLQ abdominal discomfort. Denied fever, nausea, vomiting. [facility] Medical History Abnormal finding on ultrasound Acute kidney injury Anemia Aortic root dilatation Bladder cancer Bladder cancer CHF (congestive heart failure) CKD (chronic kidney disease) stage 5, GFR less than 15 ml/min Elevated troponin ESRD (end stage renal disease) ESRD (end stage renal disease) on dialysis Essential hypertension Hepatic cyst History of DVT (deep vein thrombosis) History of pulmonary embolism History of solitary pulmonary nodule HIT (heparin-induced thrombocytopenia) HLD (hyperlipidemia) Hyperparathyroidism Iron deficiency anemia Iron deficiency anemia Left upper chest discomfort Lower gastrointestinal bleeding Lymphoma Lymphoma Neutropenic fever Pancytopenia Paroxysmal A-fib Preop cardiovascular exam Pulmonary embolism Renal calculus Shortness of breath VTE (venous thromboembolism) Home Medications carvedilol 6.25 mg tablet 3.125 mg PO BID blood pressure 04/24/17 [History Last Taken 02/28/23 11:00 3.125 mg] vitamin B complex 1 tab PO DAILY SUPPLEMENT 07/02/20 [History Last Taken 02/28/23 11:00] vitamin B complex and vitamin C no.20-folic acid 1 mg capsule (Virt-Caps) 1 cap PO DAILY #0 caps 02/23/22 [Rx Last Taken 02/28/23 11:00] ascorbic acid (vitamin C) 500 mg tablet 500 mg PO DAILY supplement 03/12/22 [History Last Taken 02/28/23] apixaban 2.5 mg tablet (Eliquis) 2.5 mg PO BID #0 tabs 03/30/22 [Rx Last Taken 02/28/23 11:00 2.5 mg] calcitriol 0.25 mcg capsule 0.25 mcg PO DAILY supplement 07/30/22 [History Last Taken 02/28/23] sucroferric oxyhydroxide 500 mg chewable tablet (Velphoro) 500 mg PO .with meals 03/01/23 [History Last Taken Unknown] Allergy/AdvReac Type Severity Reaction Status Date / Time enoxaparin [From Lovenox] Allergy Other Verified 02/28/23 17:05 heparin Allergy Other Verified 02/28/23 17:05 aspirin AdvReac Other Verified 02/28/23 17:05 Iodinated Contrast Media AdvReac OTHER Verified 02/28/23 17:05 [CONTRASTS] Family History Father Cancer lung Arrhythmia Brother Cancer Surgical History AV fistula H/O total cystectomy History of cataract extraction History of corrected cleft lip and palate History of tonsillectomy Social History household members: none Smoking Status: Former smoker how long ago did patient quit smokin alcohol intake: never substance use type: does not use caffeine: No ROS Constitutional Constitutional: Reports weakness; Denies fever(s) ENT HEENT: Denies nasal congestion Cardiovascular Cardiovascular: Denies chest pain or edema Respiratory/Chest Respiratory/Chest: Reports dyspnea on exertion Gastrointestinal Gastrointestinal: Reports abdominal pain, anorexia, diarrhea and rectal bleeding; Denies nausea or vomiting Genitourinary Genitourinary: Reports oliguria Musculoskeletal Musculoskeletal: Reports other Details: gen weakness Neurologic Neurologic: Reports weakness Psychiatric Psychiatric: Denies confusion Endocrine Endocrinology: Reports fatigue Hematologic/Lymphatic Hematologic/Lymphatic: Reports anemia Physical Exam Const alert, oriented x3 and no apparent distress Resp clear to auscultation bilaterally Cardio Rhythm: abnormal rhythm irregularly irregular GI non-distended GI Narrative: LLQ discomfort to palpation Auscultation: normoactive bowel sounds Palpation: soft Extremity no clubbing, cyanosis or edema General Extremity: AV fistula Neuro CN's II-XII intact bilaterally Sensorium / Orientation: awake and alert Psych cooperative Lab / Micro Data 03/01/23 05:57 03/01/23 05:57 Labs: Laboratory Results - last 24 hr 02/28/23 18:00: WBC 4.4, RBC 2.63 L, Hgb 8.9 L, Hct 28.4 L, MCV 108.0 H, MCH 33.8 H, MCHC 31.3 L, RDW Std Deviation 61.4 H, RDW Coeff of Lencho 15.6 H, Plt Count 147 L, MPV 10.2, Immature Gran % (Auto) 0.200, Neut % (Auto) 66.4, Lymph % (Auto) 11.8 L, [place] % (Auto) 17.3 H, Eos % (Auto) 3.6, Baso % (Auto) 0.7, Absolute Neuts (auto) 2.9, Absolute Lymphs (auto) 0.52 L, Nucleated RBC % 0, Differential Comment SCANNED, Sodium 140, Potassium 3.4 L, Chloride 103, Carbon Dioxide 28.0, Anion Gap 9, BUN 54 H, Creatinine 6.55 H, Estim Creat Clear Calc 9.59, Est GFR (MDRD) Af Amer 11 L, Est GFR (MDRD) Non-Af 9 L, BUN/Creatinine Ratio 8.2 L, Glucose 156 H, Calcium 8.4 L, Total Bilirubin 0.60, AST 12 L, ALT 14 L, Alkaline Phosphatase 48, Troponin I High Sens 434 H*, Total Protein 6.1 L, Albumin 2.3 L, Globulin 3.8, Albumin/Globulin Ratio 0.6 L 02/28/23 20:10: Troponin I High Sens 450 H* 02/28/23 21:40: Blood Type O POSITIVE, Antibody Screen NEGATIVE, Crossmatch See Detail 03/01/23 00:08: Hgb 10.7 L, Hct 33.7 L 03/01/23 05:57: Hgb 9.1 L, Hct 29.1 L, Sodium 139, Potassium 3.5, Chloride 104, Carbon Dioxide 27.0, Anion Gap 8, BUN 62 H, Creatinine 6.99 H, Estim Creat Clear Calc 8.99, Est GFR (MDRD) Af Amer 10 L, Est GFR (MDRD) Non-Af 8 L, BUN/Creatinine Ratio 8.9 L, Glucose 109 H, Calcium 8.5 Micro: Microbiology 03/01/23 00:30 Stool Stool Lactoferrin - Final 02/28/23 18:18 Stool Stool Occult Blood (ROSEMARY) - Final Occult Blood Positive Radiology Impression Abdomen/Pelvis CT 02/28/23 17:29 IMPRESSION: Severe right hydronephrosis is again noted with 2 curvilinear densities in the right mid ureter and at the right UPJ. Neobladder in the pelvis. Stable focal abdominal aortic aneurysm. Small hiatal hernia. Bilateral stable adrenal nodules. Cholelithiasis. Electronically Signed: Balbir Armendariz DO at 19:10 EDT , Chest X-Ray 02/28/23 18:40 IMPRESSION: Right basilar interstitial prominence. Left pulmonary and hilar granulomatous calcifications. Electronically Signed: Balbir Armendariz DO at 19:15 EDT ,
--- NOTE | 2023-03-01 09:08 | PCM.PN.HOSP ---
Reason for Visit Reason for Visit: Lightheadedness/hematochezia Subjective Subjective Mr. Rizvi is a 77-year-old male with a history of renal disease on dialysis and A-fib with RVR on a beta-marixa and Eliquis who presented to the emergency department at [facility] on 02/28/2022 with a large mount of bright red blood per rectum. It started on the same day of presentation. He had weakness and lightheadedness that were associated. He reported that he had diarrhea in the past 2 to 3 weeks and had completed ciprofloxacin and Flagyl for his diarrhea. Stools were heme positive in the emergency department. Gastroenterology was contacted by the emergency department and recommended hospital stay as observation for possible scope if needed. GI consultation is pending. Overnight hemoglobin has remained fairly stable. His baseline hemoglobin appears to be between 9 and 10 and current hemoglobin is 9.1. He was 8.9 on admission with repeat at 10.7 and again a.m. was 9.1. Patient states that his hemoglobin in December at his dialysis center was 12.7 and that is typically where he runs. He has not been that high as of recently here however he states that he was earlier this summer. He indicates that when his hemoglobin gets less than 10 he gets significantly lightheaded. He was given Procrit at his last dialysis session. His antihypertensives were recently decreased. He complained of left lower quadrant discomfort and was worried he had a kidney stone however he also has tenderness on palpation of the right lower quadrant as well. Objective Data Objective Data Vital Signs: Vital Signs Temp Pulse Resp BP Pulse Ox O2 Del Method O2 Flow Rate 98.0 F 89 18 104/56 L 94 Room Air 2 03/01/23 04:21 03/01/23 04:27 03/01/23 04:27 03/01/23 04:21 03/01/23 04:27 03/01/23 04:27 03/01/23 04:21 Oxygen Flow Rate (L/min) 2 Oxygen Delivery Method Room Air Weight: 97.8 kg Body Mass Index (BMI) 31.8 Lab / Micro Data 03/01/23 12:20 03/01/23 05:57 Labs: Laboratory Results - last 24 hr 02/28/23 18:00: WBC 4.4, RBC 2.63 L, Hgb 8.9 L, Hct 28.4 L, MCV 108.0 H, MCH 33.8 H, MCHC 31.3 L, RDW Std Deviation 61.4 H, RDW Coeff of Lencho 15.6 H, Plt Count 147 L, MPV 10.2, Immature Gran % (Auto) 0.200, Neut % (Auto) 66.4, Lymph % (Auto) 11.8 L, [place] % (Auto) 17.3 H, Eos % (Auto) 3.6, Baso % (Auto) 0.7, Absolute Neuts (auto) 2.9, Absolute Lymphs (auto) 0.52 L, Nucleated RBC % 0, Differential Comment SCANNED, Sodium 140, Potassium 3.4 L, Chloride 103, Carbon Dioxide 28.0, Anion Gap 9, BUN 54 H, Creatinine 6.55 H, Estim Creat Clear Calc 9.59, Est GFR (MDRD) Af Amer 11 L, Est GFR (MDRD) Non-Af 9 L, BUN/Creatinine Ratio 8.2 L, Glucose 156 H, Calcium 8.4 L, Total Bilirubin 0.60, AST 12 L, ALT 14 L, Alkaline Phosphatase 48, Troponin I High Sens 434 H*, Total Protein 6.1 L, Albumin 2.3 L, Globulin 3.8, Albumin/Globulin Ratio 0.6 L 02/28/23 20:10: Troponin I High Sens 450 H* 02/28/23 21:40: Blood Type O POSITIVE, Antibody Screen NEGATIVE, Crossmatch See Detail 03/01/23 00:08: Hgb 10.7 L, Hct 33.7 L 03/01/23 05:57: Hgb 9.1 L, Hct 29.1 L, Sodium 139, Potassium 3.5, Chloride 104, Carbon Dioxide 27.0, Anion Gap 8, BUN 62 H, Creatinine 6.99 H, Estim Creat Clear Calc 8.99, Est GFR (MDRD) Af Amer 10 L, Est GFR (MDRD) Non-Af 8 L, BUN/Creatinine Ratio 8.9 L, Glucose 109 H, Calcium 8.5 Micro: Microbiology 03/01/23 00:30 Stool Stool Lactoferrin - Final 02/28/23 18:18 Stool Stool Occult Blood (ROSEMARY) - Final Occult Blood Positive Radiography Diagnostic Testing: Radiology Impression Abdomen/Pelvis CT 02/28/23 17:29 IMPRESSION: Severe right hydronephrosis is again noted with 2 curvilinear densities in the right mid ureter and at the right UPJ. Neobladder in the pelvis. Stable focal abdominal aortic aneurysm. Small hiatal hernia. Bilateral stable adrenal nodules. Cholelithiasis. Electronically Signed: Balbir Armendariz DO at 19:10 EDT , Chest X-Ray 02/28/23 18:40 IMPRESSION: Right basilar interstitial prominence. Left pulmonary and hilar granulomatous calcifications. Electronically Signed: Balbir Armendariz DO at 19:15 EDT , Physical Exam Const alert, oriented x3, no apparent distress and well nourished; Negative for average body habitus or healthy appearing Constitutional Narrative: Obese, elderly, white male, sitting up in bed, watching television, appears comfortable, nontoxic, appears chronically ill HEENT head/scalp atraumatic and moist oral mucous membranes HEENT Narrative: Dentition is poor, Mallampati is 3, no thrush Head and Scalp: normocephalic Resp normal respiratory effort, no retractions, no use of accessory muscles and clear to auscultation bilaterally Auscultation: Negative for rales, rhonchi or wheezes Cardio regular rate, regular rhythm, S1 normal heart sound, S2 normal heart sound, no murmurs, no rub, no gallops and no clicks GI normal to inspection, nondistended, normoactive bowel sounds and soft to palpation; Negative for non-tender GI Narrative: Tenderness bilateral lower quadrants that is mild Extremity no clubbing, cyanosis or edema Extremity Narrative: Pedal pulses are 2+, right upper extremity fistula noted with positive bruit and thrill Neuro oriented x3, moves all extremities and no focal motor deficits Speech: speech normal Psych affect normal Psych Narrative: Eye contact is good, patient converses and interacts appropriately Assessment & Plan Assessment/Plan (1) Acute blood loss anemia (ABLA): (2) Acute GI bleeding: (3) Hematochezia: (4) Acute on chronic anemia: (5) Elevated troponin: (6) Hypokalemia: PLAN: Plan Hematochezia -Lower GI bleed suspected -Patient with acute on chronic anemia -Hold home Eliquis -Every 6-hour H&H's and thus far hemoglobin with slight drop but overall shows stability -GI consultation pending Acute on chronic anemia -Chronic anemia due to end-stage renal disease on HD -Transfuse for hemoglobin less than 7 -Baseline hemoglobin appears to be between 9 and 10 per our records however patient reports his hemoglobin in December was 12.7 at dialysis and that he is typically lightheaded when his hemoglobin drops below 10 -Current hemoglobin is 9.1 -Hold Eliquis -GI consultation is pending -Continue home iron supplementation -Procrit per nephrology Elevated troponin -On presentation troponin was 434 with a repeat at 450 -No chest pain -If no EKG changes -Patient tends to have an elevated troponin likely related to CKD -We will not pursue any further work-up at this time and monitor clinically -Could consider outpatient stress test once medically stabilized Hypokalemia -Resolved End-stage renal disease-HD dependent -Per patient they were transitioning from his dialysis catheter to his fistula -Patient indicates fistula has been working well -Would remove tunneled dialysis catheter as soon as possible--> current plan is for removal on May 26 per discussion with patient -Nephrology following -Continue calcitriol -HD is currently TTS Chronic thrombocytopenia -Patient has documented history of HIT however it does appear that his platelets are chronically low -Stable at this time Paroxysmal A. fib with RVR -Continue home carvedilol -Continue to monitor -Heart rates are currently controlled -Continue home Eliquis Mild aortic root dilation -Outpatient follow-up DVT prophylaxis -Eliquis on hold for now due to GI bleeding -SCDs CODE STATUS - full code Charges/Coding Visit Charges Inpatient E&M: 77099 Subs Hosp L2
[2023-03-01] MEDS: Ascorbic Acid 500 MG Tablet PO (09:30)
[2023-03-01] MEDS: Folic Acid/Vitamin B Comp W-C 1 Capsule 1 CAP PO (09:31)
[2023-03-01] MEDS: Carvedilol 3.125 MG TABLET PO ×2 (09:31→16:54)
[2023-03-01] MEDS: Calcitriol 0.25 MCG Capsule PO (09:31)
[2023-03-01] MEDS: Vitamin B Comp W-C Capsule 1 CAP PO (09:43)
[2023-03-01] MEDS: 0.9% Normal Saline 1,000 ML IV.SOLN. 1000 ML OPERA.SITE (12:08)
[2023-03-01] MEDS: PureFlow B 3K Dialysis Soln 1 BAG 6 BAG PF (12:08)
[2023-03-01 12:29] LABS: Hemoglobin 9.4 g/dL (13.0-16.5)
[2023-03-01 19:40] LABS: Hematocrit 29.1 % (40-54); Hemoglobin 9.3 g/dL (13.0-16.5)
[2023-03-01] MEDS: 0.9% Saline Lock 10 ML Syringe IV (21:13)
[2023-03-02 03:00] VITALS: BP 102/60; PULSE 98; RESP 16; TEMP 36.5; O2SAT 94
[2023-03-02 07:05] LABS: Absolute Lymphocyte Count 0.52 X10^3/uL (0.83-4.51); Basophil# 0.03 X10^3/uL; Basophil% 0.6 % (0-1); Eosinophil# 0.23 X10^3/uL; Eosinophils% 4.9 % (0-5); Hematocrit 29.7 % (40-54); Hemoglobin 9.3 g/dL (13.0-16.5); Lymphocyte # 0.52 X10^3/ul (0.83-4.51); Lymphocyte % 11.2 % (19-41); Mean Corp Hgb Conc 31.3 g/dL (32-36); Mean Corpuscular Hgb 33.7 pg (27.0-32.0); Mean Corpuscular Volume 107.6 fL (80-94); Monocyte# 0.84 X10^3/uL; Monocyte% 18.1 % (0-10); NRBC Flagged by Analyzer 0 % (0-5); Neutrophil # 3.02 X10^3/uL (2.7-7.7); POSITIVE DIFFERENTIAL YES; Platelet Count 170 K/mm3 (150-450); RBC Distribution Width SD 58.4 fl (35.1-43.9); Red Blood Count 2.76 M/mm3 (4.6-6.2); White Blood Count 4.7 K/mm3 (4.4-11.0)
[2023-03-02 07:38] LABS: ALB/GLOB Ratio 0.6 RATIO (0.9-2.4); AST(SGOT) 13 U/L (15-37); Alanine Aminotransfer ALT/SGPT 15 U/L (16-61); Albumin, Serum 2.2 g/dL (3.2-5.0); Alkaline Phosphatase 47 U/L (45-117); Anion Gap 12 (5-15); BUN 53 mg/dL (7-18); BUN/Creat Ratio 9.3 RATIO (10-20); Calcium,Total 8.4 mg/dL (8.5-10.1); Chloride 105 mmol/L (98-107); Creatinine, Serum 5.71 mg/dL (0.70-1.30); EST Glomerular Filtration Rate 10 mL/min (>60); Est Glom Filt Rate - Afr Amer 13 mL/min (>60); Estimated Creatinine Clearance 11.01 ml/min; Globulin 3.9 g/dL (2.2-4.2); Glucose 67 mg/dL (74-106); Magnesium 2.6 mg/dL (1.6-2.6); Phosphorus 5.3 mg/dL (2.5-4.9); Potassium 3.8 mmol/L (3.5-5.1); Protein, Total 6.1 g/dL (6.4-8.2); Sodium Level 139 mmol/L (136-145)
[2023-03-02 07:57] LABS: Differential Indicated SCAN CRITERIA MET
[2023-03-02 09:57] VITALS: BP 119/65; PULSE 91; RESP 18; TEMP 36.5; O2SAT 97
[2023-03-02] MEDS: Folic Acid/Vitamin B Comp W-C 1 Capsule 1 CAP PO (10:12)
[2023-03-02] MEDS: Calcitriol 0.25 MCG Capsule PO (10:12)
[2023-03-02] MEDS: Vitamin B Comp W-C Capsule 1 CAP PO (10:12)
[2023-03-02] MEDS: Ascorbic Acid 500 MG Tablet PO (10:13)
[2023-03-02] MEDS: Carvedilol 3.125 MG TABLET PO ×2 (10:13→18:39)
--- NOTE | 2023-03-02 10:27 | CASEMGMT ---
Met with patient to complete [place] form. [place] form explained to patient who voiced understanding and signed form. Original form placed in pt?s chart and copy provided to patient. Na Gordon, Discharge Planning Asst.?
[2023-03-02 10:35] LABS: Differential Comment SCANNED
--- NOTE | 2023-03-02 11:37 | PN.HOSP_ITS ---
Reason for Visit Reason for Visit: Hematochezia Subjective Subjective No issues overnight. Patient states he refused to take the calcium acetate because he is not supposed to be on it anymore. I indicated I would discontinue this but it was on his home MAR that is how it got initiated. GI has not yet seen him however I did discuss with Dr. Garay and plan will be for colonoscopy tomorrow. His hemoglobin has stabilized. Patient denies any acute complaints at this time. Objective Data Objective Data Vital Signs: Vital Signs Temp Pulse Resp BP Pulse Ox O2 Del Method O2 Flow Rate 97.7 F L 91 18 119/65 97 Room Air 2 03/02/23 09:57 03/02/23 09:57 03/02/23 09:57 03/02/23 09:57 03/02/23 09:57 03/02/23 09:57 03/01/23 04:21 Oxygen Flow Rate (L/min) 2 Oxygen Delivery Method Room Air Weight: 97.4 kg Body Mass Index (BMI) 31.8 Intake & Output: Intake and Output for Last 24 Hours 02/28/23 03/01/23 03/02/23 23:59 23:59 23:59 Intake Total 0 / 0 Output Total 450 / 450 0 / 0 Balance -450 / -450 0 / 0 Lab / Micro Data 03/02/23 06:28 03/02/23 06:28 Labs: Laboratory Results - last 24 hr 03/01/23 12:20: Hgb 9.4 L, Hct 30.0 L 03/01/23 19:00: Hgb 9.3 L, Hct 29.1 L 03/02/23 06:28: WBC 4.7, RBC 2.76 L, Hgb 9.3 L, Hct 29.7 L, MCV 107.6 H, MCH 33.7 H, MCHC 31.3 L, RDW Std Deviation 58.4 H, RDW Coeff of Lencho 15.0 H, Plt Coun t 170, MPV 10.0, Immature Gran % (Auto) 0.200, Neut % (Auto) 65.0, Lymph % (Auto) 11.2 L, [place] % (Auto) 18.1 H, Eos % (Auto) 4.9, Baso % (Auto) 0.6, Absol [place]al[place] Neuts (auto) 3.0, Absolute Lymphs (auto) 0.52 L, Nucleated RBC % 0, Diffe rential Comment SCANNED, Sodium 139, Potassium 3.8, Chloride 105, Carbon Dioxide 22.0, Anion Gap 12, BUN 53 H, Creatinine 5.71 H, Estim Creat Clear Calc 11.01, Est GFR (MDRD) Af Amer 13 L, Est GFR (MDRD) Non-Af 10 L, BUN/Creatinine Ratio 9.3 L, Glucose 67 L, Calcium 8.4 L, Phosphorus 5.3 H, Magnesium 2.6, Total Zach irubin 0.70, AST 13 L, ALT 15 L, Alkaline Phosphatase 47, Total Protein 6.1 L, Albumin 2.2 L, Globulin 3.9, Albumin/Globulin Ratio 0.6 L Micro: Microbiology 03/01/23 00:30 Stool Stool Lactoferrin - Final 03/01/23 00:30 Stool Enteric Bacteriology - Final 03/01/23 00:30 Stool C. difficile GDH Antigen & Toxins - Final 03/01/23 00:30 Stool C. difficile DNA Amplification - Final 02/28/23 18:18 Stool Stool Occult Blood (ROSEMARY) - Final Occult Blood Positive Physical Exam Const alert, oriented x3, no apparent distress and well nourished; Negative for average body habitus or healthy appearing Constitutional Narrative: Obese, elderly, white male, lying in bed, watching television, appears comfortable, nontoxic, appears chronically ill HEENT head/scalp atraumatic and moist oral mucous membranes HEENT Narrative: Dentition is poor, Mallampati is 2, no thrush Head and Scalp: normocephalic Resp normal respiratory effort, no retractions, no use of accessory muscles and clear to auscultation bilaterally Auscultation: Negative for rales, rhonchi or wheezes Cardio regular rate, regular rhythm, S1 normal heart sound, S2 normal heart sound, no murmurs, no rub, no gallops and no clicks GI normal to inspection, nondistended, normoactive bowel sounds and soft to pal pation; Negative for non-tender GI Narrative: Tenderness bilateral lower quadrants that is mild Extremity no clubbing, cyanosis or edema Extremity Narrative: Pedal pulses are 2+, right upper extremity fistula noted with positive bruit and thrill Neuro oriented x3, moves all extremities and no focal motor deficits Speech: speech normal Psych affect normal Psych Narrative: Eye contact is good, patient converses and interacts appropriately Assessment & Plan Assessment/Plan (1) Acute blood loss anemia (ABLA): (2) Acute GI bleeding: (3) Hematochezia: (4) Acute on chronic anemia: (5) Elevated troponin: (6) Hypokalemia: PLAN: Plan Hematochezia -Lower GI bleed suspected -Patient with acute on chronic anemia -Continue to hold home Eliquis -Hemoglobin is stable and will discontinue every 6 hours H&H -GI consultation pending--> discussed with Dr. Garay and he will see him later today and plan for colonoscopy tomorrow Acute on chronic anemia -Chronic anemia due to end-stage renal disease on HD -Transfuse for hemoglobin less than 7 -Baseline hemoglobin appears to be between 9 and 10 per our records however patient reports his hemoglobin in December was 12.7 at dialysis and that he is typically lightheaded when his hemoglobin drops below 10 -Current hemoglobin is 9.3 -Continue to hold Eliquis -GI consultation is pending with plans for colonoscopy tomorrow -Continue home iron supplementation -Procrit per nephrology Elevated troponin -On presentation troponin was 434 with a repeat at 450 -No chest pain -If no EKG changes -Patient tends to have an elevated troponin likely related to CKD -We will not pursue any further work-up at this time and monitor clinically -Could consider outpatient stress test once medically stabilized End-stage renal disease-HD dependent -Nephrology following -Continue calcitriol -HD is currently TTS 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 fib with RVR -Currently normal sinus rhythm -Continue home carvedilol -Continue to monitor -Hold home Eliquis due to hematochezia Mild aortic root dilation -Outpatient follow-up DVT prophylaxis -Eliquis on hold for now due to GI bleeding -SCDs CODE STATUS - full code Charges/Coding Visit Charges Inpatient E&M: 11151 Subs Hosp L2
--- NOTE | 2023-03-02 16:25 | CHAPLAIN ---
Type of Pastoral Visit _x__ Initial Visit ___ Follow-up Visit ___ On-call Visit ___ General Patient Visit ___ Spiritual Assessment ___ Family Conference ___ Bereavement ___ Rapid Response ___ Code Blue ___ Other (describe below) Pastoral Care Referral From _x__ Patient ___ Family ___ Nurse ___ Physician ___ Saddle And Harness Maker ___ Radar Tester ___ Other (describe below) Sacrament/Intervention _x__ Active listening ___ Anointing ___ Pentecostal ___ Bereavement ___ Communion _x__ Klarissa exploration ___ _x__ Life review _x__ Prayer ___ Reconciliation ___ Sacrament of Sick _x__ Supportive presence ___ Wedding ___ Other (describe below) Pastoral Comments patient is very welcoming; when asked about his situation the patient responds I am not doing well but proceeds to talk about his Bible reading and his personal spiritual beliefs; when redirected to his health the pt refers back to his own klarissa; allowed pt to talk about his spiritual thoughts and about his family/son that he would like prayer for; pt does admit some frustrations at waiting for more tests and the inability to eat
[2023-03-02 16:52] VITALS: BP 115/58; PULSE 82; RESP 18; TEMP 36.6; O2SAT 96
[2023-03-02 17:13] LABS: Mucous, Urine 0 SEEN /hpf (<or=2+)
[2023-03-02 17:19] LABS: Color, Urine Yellow (Yellow); Glucose, Dipstick Normal (Normal); Ketone-Dipstick 15 mg/dl (Negative); Leukocyte Esterase-Dipstick 25 /ul (Negative); Nitrite-Dipstick Negative (Negative); Occult Blood-Urine 250 /ul (Negative); Protein-Dipstick 100 mg/dl (Negative); Specific Gravity, Urine 1.015 (1.002-1.030); Urine Clarity Sl. Cloudy (Clear); Urine Urobilinogen Normal (Normal)
[2023-03-02 17:32] LABS: Urine Bilirubin Dipstick 1 mg/dL (Negative)
--- NOTE | 2023-03-02 17:37 | PCM.PN.REN ---
Subjective Subjective await GI evaluation. Remains NPO. LLQ abdominal discomfort persists. No BM today Objective Data Objective Data Vital Signs: Vital Signs Temp Pulse Resp BP Pulse Ox O2 Del Method O2 Flow Rate 97.8 F 82 18 115/58 L 96 Room Air 2 03/02/23 16:52 03/02/23 16:52 03/02/23 16:52 03/02/23 16:52 03/02/23 16:52 03/02/23 16:52 03/01/23 04:21 Oxygen Flow Rate (L/min) 2 Oxygen Delivery Method Room Air Weight: 97.4 kg Body Mass Index (BMI) 31.8 Intake & Output: Intake and Output for Last 24 Hours 02/28/23 03/01/23 03/02/23 23:59 23:59 23:59 Intake Total 25 Output Total 450 / 450 Balance -450 / -450 Lab / Micro Data 03/02/23 06:28 03/02/23 06:28 Labs: Laboratory Results - last 24 hr 02/28/23 18:05: Urine Color Yellow, Urine Clarity Sl. Cloudy, Urine pH 7.0, Ur Specific [place] 1.015, Urine Protein 100 H, Urine Glucose (UA) Normal, Urine Ketones 15 H, Urine Occult Blood 250 H, Urine Nitrite Negative, Urine Bilirubin 1 H, Urine Urobilinogen Normal, Ur Leukocyte Esterase 25 H 03/01/23 19:00: Hgb 9.3 L, Hct 29.1 L 03/02/23 06:28: WBC 4.7, RBC 2.76 L, Hgb 9.3 L, Hct 29.7 L, MCV 107.6 H, MCH 33.7 H, MCHC 31.3 L, RDW Std Deviation 58.4 H, RDW Coeff of Lencho 15.0 H, Plt Count 170, MPV 10.0, Immature Gran % (Auto) 0.200, Neut % (Auto) 65.0, Lymph % (Auto) 11.2 L, [place] % (Auto) 18.1 H, Eos % (Auto) 4.9, Baso % (Auto) 0.6, Absolute Neuts (auto) 3.0, Absolute Lymphs (auto) 0.52 L, Nucleated RBC % 0, Differential Comment SCANNED, Sodium 139, Potassium 3.8, Chloride 105, Carbon Dioxide 22.0, Anion Gap 12, BUN 53 H, Creatinine 5.71 H, Estim Creat Clear Calc 11.01, Est GFR (MDRD) Af Amer 13 L, Est GFR (MDRD) Non-Af 10 L, BUN/Creatinine Ratio 9.3 L, Glucose 67 L, Calcium 8.4 L, Phosphorus 5.3 H, Magnesium 2.6, Total Bilirubin 0.70, AST 13 L, ALT 15 L, Alkaline Phosphatase 47, Total Protein 6.1 L, Albumin 2.2 L, Globulin 3.9, Albumin/Globulin Ratio 0.6 L Micro: Microbiology 03/01/23 00:30 Stool Stool Lactoferrin - Final 03/01/23 00:30 Stool Enteric Bacteriology - Final 03/01/23 00:30 Stool C. difficile GDH Antigen & Toxins - Final 03/01/23 00:30 Stool C. difficile DNA Amplification - Final 02/28/23 18:18 Stool Stool Occult Blood (ROSEMARY) - Final Occult Blood Positive Physical Exam Const alert and oriented x3 Resp clear to auscultation bilaterally Cardio Cardio Narrative: afib on monitor GI non-distended GI Narrative: mild LLQ discomfort to palpation Auscultation: normoactive bowel sounds Extremity no clubbing, cyanosis or edema General Extremity: AV fistula Assessment & Plan Assessment/Plan (1) ESRD (end stage renal disease) on dialysis: PLAN: dialysis TTS (2) Acute on chronic anemia: PLAN: hgb 9g GI consulted. Add LUCHO today (3) Acute GI bleeding: PLAN: GI on consult. Hgb stable (4) Light-headedness: PLAN: coreg recently reduced (5) Atrial fibrillation: QUALIFIERS: Atrial fibrillation type: unspecified chronic Qualified Code(s): I48.20 - Chronic atrial fibrillation, unspecified PLAN: chronic on eliquis as outpt
[2023-03-02 17:38] LABS: Bacteria RARE /hpf (None Seen); Red Blood Cells-Urine 50-100 SEEN /hpf (0-5); Squamous Epithelial Cells - UA 0-5 SEEN /hpf (0-5); White Blood Cells 5-10 SEEN /hpf (0-5)
--- NOTE | 2023-03-02 18:41 | EX.PCM.CON.G ---
HPI Consult Data Date of Consult: 03/02/23 HPI Narrative Reason for Consultation: GI bleed HPI Narrative: RIA MARIANO, is a 77 M who presented to the ER due to bright red stools that started today. He denies any history of GI bleed or hemorrhoids. He does take Eliquis for history of A-fib. He reports that he has had diarrhea since mid January and was treated with Ciprofloxacin and Flagyl without relief of his symptoms. He reports a history of C. difficile 10 years ago and is not sure if this is similar or not. He has been feeling lightheaded over the past few weeks, he has intermittent shortness of breath both at rest and with exertion, and over the past few days he has been experiencing night sweats. He does not use O2 at home. Patient is in dialysis due to CKD. PMH includes CKD, A-fib, CHF, and CAD. His hemoglobin was 7.7 when he came in but it decreased down to 9.1 and currently today is 9.3. [facility] Medical History Abnormal finding on ultrasound Acute kidney injury Anemia Aortic root dilatation Bladder cancer Bladder cancer CHF (congestive heart failure) CKD (chronic kidney disease) stage 5, GFR less than 15 ml/min Elevated troponin ESRD (end stage renal disease) ESRD (end stage renal disease) on dialysis Essential hypertension Hepatic cyst History of DVT (deep vein thrombosis) History of pulmonary embolism History of solitary pulmonary nodule HIT (heparin-induced thrombocytopenia) HLD (hyperlipidemia) Hyperparathyroidism Iron deficiency anemia Iron deficiency anemia Left upper chest discomfort Lower gastrointestinal bleeding Lymphoma Lymphoma Neutropenic fever Pancytopenia Paroxysmal A-fib Preop cardiovascular exam Pulmonary embolism Renal calculus Shortness of breath VTE (venous thromboembolism) Home Medications carvedilol 6.25 mg tablet 3.125 mg PO BID blood pressure 04/24/17 [History Last Taken 02/28/23 11:00 3.125 mg] vitamin B complex 1 tab PO DAILY SUPPLEMENT 07/02/20 [History Last Taken 02/28/23 11:00] vitamin B complex and vitamin C no.20-folic acid 1 mg capsule (Virt-Caps) 1 cap PO DAILY #0 caps 02/23/22 [Rx Last Taken 02/28/23 11:00] ascorbic acid (vitamin C) 500 mg tablet 500 mg PO DAILY supplement 03/12/22 [History Last Taken 02/28/23] apixaban 2.5 mg tablet (Eliquis) 2.5 mg PO BID #0 tabs 03/30/22 [Rx Last Taken 02/28/23 11:00 2.5 mg] calcitriol 0.25 mcg capsule 0.25 mcg PO DAILY supplement 07/30/22 [History Last Taken 02/28/23] sucroferric oxyhydroxide 500 mg chewable tablet (Velphoro) 500 mg PO .with meals 03/01/23 [History Last Taken Unknown] Allergy/AdvReac Type Severity Reaction Status Date / Time enoxaparin [From Lovenox] Allergy Other Verified 02/28/23 17:05 heparin Allergy Other Verified 02/28/23 17:05 aspirin AdvReac Other Verified 02/28/23 17:05 Iodinated Contrast Media AdvReac OTHER Verified 02/28/23 17:05 [CONTRASTS] Family History Father Cancer lung Arrhythmia Brother Cancer Surgical History AV fistula H/O total cystectomy History of cataract extraction History of corrected cleft lip and palate History of tonsillectomy Social History household members: none Smoking Status: Former smoker how long ago did patient quit smokin alcohol intake: never substance use type: does not use caffeine: No ROS Constitutional Constitutional: Reports weakness; Denies fever(s) ENT HEENT: Denies nasal congestion Cardiovascular Cardiovascular: Denies chest pain or edema Respiratory/Chest Respiratory/Chest: Reports dyspnea on exertion Gastrointestinal Gastrointestinal: Reports abdominal pain, anorexia, diarrhea and rectal bleeding; Denies nausea or vomiting Genitourinary Genitourinary: Reports oliguria Musculoskeletal Musculoskeletal: Reports other Details: gen weakness Neurologic Neurologic: Reports weakness Psychiatric Psychiatric: Denies confusion Endocrine Endocrinology: Reports fatigue Hematologic/Lymphatic Hematologic/Lymphatic: Reports anemia Physical Exam Const alert and oriented x3 Resp clear to auscultation bilaterally Cardio Cardio Narrative: afib on monitor GI non-distended GI Narrative: mild LLQ discomfort to palpation Auscultation: normoactive bowel sounds Extremity no clubbing, cyanosis or edema General Extremity: AV fistula Lab / Micro Data 03/02/23 06:28 03/02/23 06:28 Labs: Laboratory Results - last 24 hr 02/28/23 18:05: Urine Color Yellow, Urine Clarity Sl. Cloudy, Urine pH 7.0, Ur Specific [place] 1.015, Urine Protein 100 H, Urine Glucose (UA) Normal, Urine Ketones 15 H, Urine Occult Blood 250 H, Urine Nitrite Negative, Urine Bilirubin 1 H, Urine Urobilinogen Normal, Ur Leukocyte Esterase 25 H, Urine RBC 50-100 SEEN, Urine WBC 5-10 SEEN, Ur Squamous Epith Cells 0-5 SEEN, Urine Bacteria RARE, Urine Mucus 0 SEEN 03/01/23 19:00: Hgb 9.3 L, Hct 29.1 L 03/02/23 06:28: WBC 4.7, RBC 2.76 L, Hgb 9.3 L, Hct 29.7 L, MCV 107.6 H, MCH 33.7 H, MCHC 31.3 L, RDW Std Deviation 58.4 H, RDW Coeff of Lencho 15.0 H, Plt Count 170, MPV 10.0, Immature Gran % (Auto) 0.200, Neut % (Auto) 65.0, Lymph % (Auto) 11.2 L, [place] % (Auto) 18.1 H, Eos % (Auto) 4.9, Baso % (Auto) 0.6, Absolute Neuts (auto) 3.0, Absolute Lymphs (auto) 0.52 L, Nucleated RBC % 0, Differential Comment SCANNED, Sodium 139, Potassium 3.8, Chloride 105, Carbon Dioxide 22.0, Anion Gap 12, BUN 53 H, Creatinine 5.71 H, Estim Creat Clear Calc 11.01, Est GFR (MDRD) Af Amer 13 L, Est GFR (MDRD) Non-Af 10 L, BUN/Creatinine Ratio 9.3 L, Glucose 67 L, Calcium 8.4 L, Phosphorus 5.3 H, Magnesium 2.6, Total Bilirubin 0.70, AST 13 L, ALT 15 L, Alkaline Phosphatase 47, Total Protein 6.1 L, Albumin 2.2 L, Globulin 3.9, Albumin/Globulin Ratio 0.6 L Assessment & Plan Assessment/Plan (1) Acute GI bleeding: (2) Elevated troponin: (3) Light-headedness: (4) Acute blood loss anemia (ABLA): PLAN: Plan 77-year-old with history of atrial fibrillation on anticoagulation, anemia chronic disease presents with lower GI bleeding. Acute blood loss anemia with likely lower GI blood in the setting of chronic anemia Chronic anemia Likely secondary to CKD Hemoglobin on presentation was 8.9. His hemoglobin on 02/28/23 was 10.6 and currently down to 9.3 Recommend EGD and colonoscopy to evaluate his upper or lower GI tract. He was explained alternatives, risk, benefits include not withstanding bleeding, infection, sepsis, perforation, need for emergent surgery . He will have an ASA of 3. Charges/Coding Visit Charges Inpatient E&M: 72680 Init Hosp L2
[2023-03-02] MEDS: Bisacodyl 5 MG Tablet 20 MG PO (19:42)
[2023-03-02] MEDS: Polyethylene Glycol 3350 BOWEL PREP PO (21:40)
[2023-03-02 22:00] VITALS: BP 107/54; PULSE 92; RESP 18; TEMP 36.7; O2SAT 97
[2023-03-02 22:50] VITALS: BP 117/61; PULSE 92; RESP 18; TEMP 36.6; O2SAT 96
[2023-03-03] VITALS (17 sets, daily range): BP systolic 70–219; BP diastolic 43–64; PULSE 84–101; RESP 14–18; TEMP 36.4–36.7; O2SAT 92–100; BMI 31.8
--- NOTE | 2023-03-03 | GASB_PTH ---
PATIENT: RIA MARIANO LOC: [facility] U#:[id number] AGE/SX: 77/M ROOM: [facility] RE03/03/[address]: Dr. Ban He DO : 1945 BED: 1 DIS: 03/05/2023 SPEC #: [id number] RECD: 03/03/23 14:45 STATUS: DAKOTAH REErasmo #: [id number] PERRY: 03/03/23 00:[address]: Wolfgang Garay DEPT: SURGICAL PATHOLOGY RECD BY: Branden Saavedra ENTERED: 03/04/23 08:51 SP TYPE: Gastric Bx OTHR DR: DO Dr. Rogelio Santiago MD Dr. Joseph Agyepong, MD Dr. Jordan Garrison, DO Dr. Ban He DO Tissues: A - Duodenum, NOS B - Gastric mucous membrane COLON BIOPSY Procedures: Surgery Specimen Level IV Comments: @ Ordering doctor for SUIV edited from to @ ton YOST at 03/04/23 1403 @ Submitting doctor edited from to @ by PRIYANK at 03/04/23 1409 HEADER OPERATION: Colonoscopy, EGD, biopsy PRE-OP DIAGNOSIS: GI bleed TISSUE SUBMITTED: A - Duodenal ulcer biopsy, B - Gastric body biopsy, C - Random colonic biopsy MICROSCOPIC DIAGNOSIS A. Duodenal ulcer, biopsy: Focal acute inflammation and denudation of mucosa consistent with ulcer. B. Gastric body, biopsy: Chronic gastritis. See comment. C. Colon, random biopsy: Chronic active colitis pattern of injury. Melanosis coli. See comment. AM:jeff 03/07/2023 COMMENT B. The results of immunohistochemistry for Helicobacter pylori will be reported separately ([id number]). C. Sections show cryptitis, crypt abscesses and mucosal ulceration. There is mild glandular distortion. Granulomas are not identified. Clinical correlation is suggested. MICROSCOPIC DESCRIPTION Slides are reviewed. GROSS DESCRIPTION A - Received in fixative is one container labeled with the patient's name and designated duodenal ulcer biopsy. The specimen consists of two irregular fragments of light hernandez soft tissue that in aggregate measure 0.4 x 0.2 x 0.1 cm. The specimen is totally submitted in one cassette. B - Received in fixative is one container labeled with the patient's name and designated gastric body biopsy. The specimen consists of one irregular fragment of light hernandez soft tissue that measures 0.3 x 0.3 x 0.1 cm. The specimen is totally submitted in one cassette. C - Received in fixative is one container labeled with the patient's name and designated random colonic biopsy. The specimen consists of multiple irregular fragments of light hernandez soft tissue that in aggregate measure 1.5 x 0.5 x 0.1 cm. The specimen is totally submitted in one cassette. / SJ:rg 03/04/2023 TC:2 CPT: 57602 x3
[2023-03-03 07:27] LABS: Absolute Lymphocyte Count 0.59 X10^3/uL (0.83-4.51); Absolute Neutrophil Count 3.1 X10^3/uL (2.0-7.7); Basophil# 0.03 X10^3/uL; Basophil% 0.6 % (0-1); Eosinophil# 0.27 X10^3/uL; Eosinophils% 5.6 % (0-5); Hematocrit 31.6 % (40-54); Lymphocyte # 0.59 X10^3/ul (0.83-4.51); Lymphocyte % 12.2 % (19-41); Mean Corp Hgb Conc 31.6 g/dL (32-36); Mean Corpuscular Hgb 33.2 pg (27.0-32.0); Mean Platelet Vol. 9.9 fl (6.2-12.0); Monocyte# 0.86 X10^3/uL; Monocyte% 17.7 % (0-10); NRBC Flagged by Analyzer 0 % (0-5); Neutrophil # 3.08 X10^3/uL (2.7-7.7); Neutrophil % 63.5 % (47-70); POSITIVE DIFFERENTIAL YES; Platelet Count 218 K/mm3 (150-450); RBC Distribution Width CV 14.7 % (11.6-14.6); RBC Distribution Width SD 56.8 fl (35.1-43.9); Red Blood Count 3.01 M/mm3 (4.6-6.2); White Blood Count 4.9 K/mm3 (4.4-11.0)
[2023-03-03 07:44] LABS: Differential Indicated SCAN CRITERIA MET
[2023-03-03 07:49] LABS: Anion Gap 8 (5-15); BUN 60 mg/dL (7-18); Calcium,Total 8.4 mg/dL (8.5-10.1); Chloride 105 mmol/L (98-107); Creatinine, Serum 6.66 mg/dL (0.70-1.30); EST Glomerular Filtration Rate 9 mL/min (>60); Est Glom Filt Rate - Afr Amer 11 mL/min (>60); Estimated Creatinine Clearance 9.44 ml/min; Glucose 88 mg/dL (74-106); Potassium 3.1 mmol/L (3.5-5.1); Sodium Level 139 mmol/L (136-145)
[2023-03-03] MEDS: Folic Acid/Vitamin B Comp W-C 1 Capsule 1 CAP PO (09:54)
[2023-03-03] MEDS: Calcitriol 0.25 MCG Capsule PO (09:54)
[2023-03-03] MEDS: Vitamin B Comp W-C Capsule 1 CAP PO (09:55)
[2023-03-03] MEDS: Ascorbic Acid 500 MG Tablet PO (09:55)
[2023-03-03] MEDS: Carvedilol 3.125 MG TABLET PO ×2 (09:56→15:56)
--- NOTE | 2023-03-03 11:30 | IMM_PTH ---
PATIENT: RIA MARIANO LOC: [facility] U#:[id number] AGE/SX: 77/M ROOM: [facility] RE03/03/[address]: Dr. Ban He DO : 1945 BED: 1 DIS: 03/05/2023 SPEC #: [id number] RECD: 03/04/23 14:08 STATUS: DAKOTAH REQ #: [id number] PERRY: 03/03/23 11:[address]: Wolfgang Garay DEPT: IMMUNOHISTOCHEMISTRY RECD BY: Trixie Forbes ENTERED: 03/04/23 14:09 SP TYPE: IMMUNO OTHR DR: DO Dr. Rogelio Santiago MD Dr. Joseph Agyepong, MD Dr. Jordan Garrison, DO Dr. Kathryn Lee, DO Tissues: B - Stomach, NOS Procedures: H Pylori (initial) PHYSICIAN & INSTITUTION [place] [address] SPECIMEN INFORMATION: Tissue Source: B - Gastric body Clinical Info: GI bleed Specimen Number: [id number] CPT code: 70770 METHODOLOGY: Deparaffinized sections of prefer/formalin-fixed tissue or PAP/DQ stained slides are incubated with monoclonal/polyclonal antibodies/oligonucleotide probes. Localization is made via biotin free immunoperoxidase method. Appropriate controls are performed and reacted as expected. Results on target cell population are indicated in the following table: RESULTS: ANTIBODY / CLONE RESULT Block B H Pylori (polyclonal) negative These tests were developed and their performance characteristics determined by [facility]. They may not have been cleared or approved by the U.S. Food and Drug Administration. The FDA has determined that such clearance or approval is not necessary. The above immunohistochemical/dualISH markers are ordered and reviewed by the Pathologist. INTERPRETATION: B. Gastric body, biopsy: Negative for Helicobacter pylori organisms. AM:jeff 03/15/2023
--- NOTE | 2023-03-03 12:56 | OP.EGD_ITS ---
Patient Name: Espinoza Rizvi Procedure Date: 03/03/2023 11:45 AM Date of : 1945 Age: 77 Procedure: Upper GI endoscopy Indications: Melena Providers: Wolfgang Garay DO Medicines: Monitored Anesthesia Care Patient Profile: This is a 77 year old male. Refer to note in patient chart for documentation of history and physical. Patient has symptoms of acute epigastric abdominal pain and chronic nausea. Complications: No immediate complications. Procedure: Pre-Anesthesia Assessment: - Prior to the procedure, a History and Physical was performed, and patient medications and allergies were reviewed. The patient is competent. The risks and benefits of the procedure and the sedation options and risks were discussed with the patient. All questions were answered and informed consent was obtained. Patient identification and proposed procedure were verified by the physician. Mental Status Examination: normal. Prophylactic Antibiotics: The patient does not require prophylactic antibiotics. Prior Anticoagulants: The patient has taken no anticoagulant or antiplatelet agents except for NSAID medication. ASA Grade Assessment: III - A patient with severe systemic disease. After reviewing the risks and benefits, the patient was deemed in satisfactory condition to undergo the procedure. The anesthesia plan was to use monitored anesthesia care (MAC). Immediately prior to administration of medications, the patient was re-assessed for adequacy to receive sedatives. The heart rate, respiratory rate, oxygen saturations, blood pressure, adequacy of pulmonary ventilation, and response to care were monitored throughout the procedure. The physical status of the patient was re-assessed after the procedure. After obtaining informed consent, the endoscope was passed under direct vision. Throughout the procedure, the patient's blood pressure, pulse, and oxygen saturations were monitored continuously. The Colonoscope was introduced through the mouth, and advanced to the second part of duodenum. The upper GI endoscopy was accomplished without difficulty. The patient tolerated the procedure well. Scope In: 11:58:22 AM Scope Out: 12:03:12 PM Total Procedure Duration Time 0 hours 4 minutes 50 seconds Findings: The upper third of the esophagus and middle third of the esophagus were normal. LA Grade A (one or more mucosal breaks less than 5 mm, not extending between tops of 2 mucosal folds) esophagitis with no bleeding was found 38 to 40 cm from the incisors. A small hiatal hernia was present. A few dispersed 5 mm erosions with no stigmata of recent bleeding were found in the gastric body. Biopsies were taken with a cold forceps for histology. Verification of patient identification for the specimen was done. Estimated blood loss was minimal. Biopsies were taken with a cold forceps for Helicobacter pylori testing. Verification of patient identification for the specimen was done. Estimated blood loss was minimal. Three oozing cratered duodenal ulcers with pigmented material were found in the duodenal bulb. The largest lesion was 6 mm in largest dimension. Area was successfully injected with 5 mL of a 0.1 mg/mL solution of epinephrine for drug delivery. Coagulation for hemostasis using heater probe was successful. Biopsies were taken with a cold forceps for histology. Verification of patient identification for the specimen was done. Estimated blood loss was minimal. Impression: - Normal upper third of esophagus and middle third of esophagus. - LA Grade A esophagitis with no bleeding. - Small hiatal hernia. - Erosive gastropathy with no stigmata of recent bleeding. Biopsied. - Oozing duodenal ulcers with pigmented material. Injected. Treated with a heater probe. Biopsied. Recommendation: - [facility]. - Use sucralfate tablets 1 gram PO QID. - Use Protonix (pantoprazole) 40 mg PO BID. - Continue present medications. Procedure Code(s): --- Professional --- 82252, 59, Esophagogastroduodenoscopy, flexible, transoral; with control of bleeding, any method 62673, Esophagogastroduodenoscopy, flexible, transoral; with biopsy, single or multiple 59786, 59,51, Esophagogastroduodenoscopy, flexible, transoral; with directed submucosal injection(s), any substance CPT copyright 2021 [employer]. All rights reserved. The codes documented in this report are preliminary and upon office technology instructor review may be revised to meet current compliance requirements. Wolfgang Garay DO 03/03/2023 12:55:57 PM This report has been signed electronically. Number of Addenda: 0 Note Initiated On: 03/03/2023 11:45 AM
--- NOTE | 2023-03-03 12:56 | OP.CCLET_ITS ---
03/03/2023 Martin Nunez [address] [place] [address] Re : Upper GI endoscopy procedure for Espinoza Rizvi Dear Dr. Nunez This procedure was performed on February. My impressions and recommendations are as follows: Impressions : - Normal upper third of esophagus and middle third of esophagus. - LA Grade A esophagitis with no bleeding. - Small hiatal hernia. - Erosive gastropathy with no stigmata of recent bleeding. Biopsied. - Oozing duodenal ulcers with pigmented material. Injected. Treated with a heater probe. Biopsied. Recommendations : - [facility]. - Use sucralfate tablets 1 gram PO QID. - Use Protonix (pantoprazole) 40 mg PO BID. - Continue present medications. My findings are described in the full procedure note, which is enclosed. If I can be of further assistance, please feel free to contact me at . Sincerely, Wolfgang Garay, 03/03/2023 12:55:57 PM This report has been signed electronically.
--- NOTE | 2023-03-03 13:02 | OP.CCLET_ITS ---
03/03/2023 Martin Nunez [address] [place] [address] Re : Colonoscopy procedure for Espinoza Rizvi Dear Dr. Nunez This procedure was performed on February. My impressions and recommendations are as follows: Impressions : - Preparation of the colon was fair. - Hemorrhoids found on perianal exam. - Diverticulosis in the recto-sigmoid colon, in the sigmoid colon and in the descending colon. - Colitis. Inflammation was found from the rectum to the cecum. This was severe, new compared to previous examinations. Biopsied. - Panulcerative colitis in the setting of C. difficile colitis. Recommendations : - [facility]. - Vancocin (vancomycin) 125 mg PO QID for 2 weeks. - Use Entocort EC (budesonide) 9 mg PO one time per day. - IBD labs - Repeat colonoscopy is recommended. The colonoscopy date will be determined after pathology results from today's exam become available for review. - Continue present medications. My findings are described in the full procedure note, which is enclosed. If I can be of further assistance, please feel free to contact me at . Sincerely, Wolfgang Garay, 03/03/2023 1:01:49 PM This report has been signed electronically.
--- NOTE | 2023-03-03 13:02 | OP.COLON_ITS ---
Patient Name: Espinoza Rizvi Procedure Date: 03/03/2023 12:03 PM Date of : 1945 Age: 77 Procedure: Colonoscopy Indications: Hematochezia Providers: Wolfgang Garay DO Medicines: Monitored Anesthesia Care Patient Profile: This is a 77 year old male. Refer to note in patient chart for documentation of history and physical. Patient has symptoms of acute epigastric abdominal pain and chronic nausea. Last Colonoscopy: date unknown. Unable to locate last colonoscopy report. Complications: No immediate complications. Procedure: Pre-Anesthesia Assessment: - Prior to the procedure, a History and Physical was performed, and patient medications and allergies were reviewed. The patient is competent. The risks and benefits of the procedure and the sedation options and risks were discussed with the patient. All questions were answered and informed consent was obtained. Patient identification and proposed procedure were verified by the physician. Mental Status Examination: normal. Prophylactic Antibiotics: The patient does not require prophylactic antibiotics. Prior Anticoagulants: The patient has taken no anticoagulant or antiplatelet agents except for NSAID medication. ASA Grade Assessment: III - A patient with severe systemic disease. After reviewing the risks and benefits, the patient was deemed in satisfactory condition to undergo the procedure. The anesthesia plan was to use monitored anesthesia care (MAC). Immediately prior to administration of medications, the patient was re-assessed for adequacy to receive sedatives. The heart rate, respiratory rate, oxygen saturations, blood pressure, adequacy of pulmonary ventilation, and response to care were monitored throughout the procedure. The physical status of the patient was re-assessed after the procedure. After I obtained informed consent, the scope was passed under direct vision. Throughout the procedure, the patient's blood pressure, pulse, and oxygen saturations were monitored continuously. The Colonoscope was introduced through the anus and advanced to the terminal ileum. The colonoscopy was performed without difficulty. The patient tolerated the procedure well. The quality of the bowel preparation was fair. The ileocecal valve, appendiceal orifice, and rectum were photographed. Scope In: 12:06:43 PM Scope Withdrawal Time 0 hours 5 minutes 37 seconds Scope Out: 12:22:40 PM Total Procedure Duration Time 0 hours 15 minutes 57 seconds Findings: Hemorrhoids were found on perianal exam. Multiple small and large-mouthed diverticula were found in the recto-sigmoid colon, sigmoid colon and descending colon. Inflammation characterized by adherent blood, altered vascularity, congestion (edema), erosions, erythema, friability, granularity, linear erosions, scarring and serpentine ulcerations was found in a continuous and circumferential pattern from the rectum to the cecum. No sites were spared. The inflammation was severe, and when compared to previous examinations, the findings are new. Biopsies were taken with a cold forceps for histology. Verification of patient identification for the specimen was done. Estimated blood loss was minimal. Impression: - Preparation of the colon was fair. - Hemorrhoids found on perianal exam. - Diverticulosis in the recto-sigmoid colon, in the sigmoid colon and in the descending colon. - Colitis. Inflammation was found from the rectum to the cecum. This was severe, new compared to previous examinations. Biopsied. - Panulcerative colitis in the setting of C. difficile colitis. Recommendation: - [facility]. - Vancocin (vancomycin) 125 mg PO QID for 2 weeks. - Use Entocort EC (budesonide) 9 mg PO one time per day. - IBD labs - Repeat colonoscopy is recommended. The colonoscopy date will be determined after pathology results from today's exam become available for review. - Continue present medications. Procedure Code(s): --- Professional --- 74467, Colonoscopy, flexible; with biopsy, single or multiple CPT copyright 2021 [employer]. All rights reserved. The codes documented in this report are preliminary and upon lithograph press operator review may be revised to meet current compliance requirements. Wolfgang Garay DO 03/03/2023 1:01:49 PM This report has been signed electronically. Number of Addenda: 0 Note Initiated On: 03/03/2023 12:03 PM
[2023-03-03] MEDS: 0.9% Normal Saline 1,000 ML IV.SOLN. 1000 ML OPERA.SITE (13:51)
[2023-03-03] MEDS: PureFlow B 3K Dialysis Soln 1 BAG 6 BAG PF (13:53)
--- NOTE | 2023-03-03 14:10 | PCM.PN.REN ---
Subjective Subjective seen on dialysis, proceeding without incident. BP stable, run even Objective Data Objective Data Vital Signs: Vital Signs Temp Pulse Resp BP Pulse Ox O2 Del Method O2 Flow Rate 98.1 F 96 14 99/50 L 94 Room Air 2 03/03/23 12:55 03/03/23 13:35 03/03/23 13:35 03/03/23 13:35 03/03/23 13:35 03/03/23 13:35 03/01/23 04:21 Oxygen Flow Rate (L/min) 2 Oxygen Delivery Method Room Air Weight: 97.4 kg Body Mass Index (BMI) 31.8 Intake & Output: Intake and Output for Last 24 Hours 03/01/23 03/02/23 03/03/23 23:59 23:59 23:59 Intake Total 25 / 225 400 / 400 Output Total 450 / 450 30 / 40 10 / 10 Balance -450 / -450 -5 / 185 390 / 390 Lab / Micro Data 03/03/23 06:50 03/03/23 06:50 Labs: Laboratory Results - last 24 hr 02/28/23 18:05: Urine Color Yellow, Urine Clarity Sl. Cloudy, Urine pH 7.0, Ur Specific [place] 1.015, Urine Protein 100 H, Urine Glucose (UA) Normal, Urine Ketones 15 H, Urine Occult Blood 250 H, Urine Nitrite Negative, Urine Bilirubin 1 H, Urine Urobilinogen Normal, Ur Leukocyte Esterase 25 H, Urine RBC 50-100 SEEN, Urine WBC 5-10 SEEN, Ur Squamous Epith Cells 0-5 SEEN, Urine Bacteria RARE, Urine Mucus 0 SEEN 03/03/23 06:50: WBC 4.9, RBC 3.01 L, Hgb 10.0 L, Hct 31.6 L, MCV 105.0 H, MCH 33.2 H, MCHC 31.6 L, RDW Std Deviation 56.8 H, RDW Coeff of Lencho 14.7 H, Plt Count 218, MPV 9.9, Immature Gran % (Auto) 0.400, Neut % (Auto) 63.5, Lymph % (Auto) 12.2 L, [place] % (Auto) 17.7 H, Eos % (Auto) 5.6 H, Baso % (Auto) 0.6, Absolute Neuts (auto) 3.1, Absolute Lymphs (auto) 0.59 L, Nucleated RBC % 0, Differential Comment COMMENT, Sodium 139, Potassium 3.1 L, Chloride 105, Carbon Dioxide 26.0, Anion Gap 8, BUN 60 H, Creatinine 6.66 H, Estim Creat Clear Calc 9.44, Est GFR (MDRD) Af Amer 11 L, Est GFR (MDRD) Non-Af 9 L, BUN/Creatinine Ratio 9.0 L, Glucose 88, Calcium 8.4 L Micro: Microbiology 03/01/23 00:30 Stool Stool Lactoferrin - Final 03/01/23 00:30 Stool Enteric Bacteriology - Final 03/01/23 00:30 Stool C. difficile GDH Antigen & Toxins - Final 03/01/23 00:30 Stool C. difficile DNA Amplification - Final 02/28/23 18:18 Stool Stool Occult Blood (ROSEMARY) - Final Occult Blood Positive Physical Exam Const alert and oriented x3 Resp clear to auscultation bilaterally GI non-tender and non-distended Auscultation: hyperactive bowel sounds Palpation: soft Extremity no clubbing, cyanosis or edema Assessment & Plan Assessment/Plan (1) ESRD (end stage renal disease) on dialysis: PLAN: dialysis today and TTS (2) Acute on chronic anemia: PLAN: hgb 9g GI consulted. Add LUCHO today (3) Acute GI bleeding: PLAN: colonoscopy today Hgb stable
[2023-03-03] MEDS: Pantoprazole Sodium 40 MG Tablet PO ×2 (15:56→21:14)
[2023-03-03] MEDS: Budesonide 3 MG CAPSULE.EC 9 MG PO (15:56)
[2023-03-03] MEDS: Sucralfate 1 GM Tablet PO ×2 (15:56→21:14)
[2023-03-03] MEDS: Vancomycin 125 MG/5 ML Susp PO.SYRINGE PO ×3 (15:56→23:56)
--- NOTE | 2023-03-03 16:46 | PCM.PN.HOSP ---
Reason for Visit Reason for Visit: Hematochezia Objective Data Objective Data Vital Signs: Vital Signs Temp Pulse Resp BP Pulse Ox O2 Del Method O2 Flow Rate 98.1 F 84 16 119/52 L 97 Room Air 2 03/03/23 12:55 03/03/23 16:31 03/03/23 16:31 03/03/23 16:31 03/03/23 16:31 03/03/23 16:31 03/01/23 04:21 Oxygen Flow Rate (L/min) 2 Oxygen Delivery Method Room Air Weight: 97.4 kg Body Mass Index (BMI) 31.8 Intake & Output: Intake and Output for Last 24 Hours 03/01/23 03/02/23 03/03/23 23:59 23:59 23:59 Intake Total 25 / 225 400 / 400 Output Total 450 / 450 30 / 40 10 Balance -450 / -450 -5 / 185 390 / 390 Lab / Micro Data 03/03/23 06:50 03/03/23 06:50 Labs: Laboratory Results - last 24 hr 02/28/23 18:05: Urine Color Yellow, Urine Clarity Sl. Cloudy, Urine pH 7.0, Ur Specific [place] 1.015, Urine Protein 100 H, Urine Glucose (UA) Normal, Urine Ketones 15 H, Urine Occult Blood 250 H, Urine Nitrite Negative, Urine Bilirubin 1 H, Urine Urobilinogen Normal, Ur Leukocyte Esterase 25 H, Urine RBC 50-100 SEEN, Urine WBC 5-10 SEEN, Ur Squamous Epith Cells 0-5 SEEN, Urine Bacteria RARE, Urine Mucus 0 SEEN 03/03/23 06:50: WBC 4.9, RBC 3.01 L, Hgb 10.0 L, Hct 31.6 L, MCV 105.0 H, MCH 33.2 H, MCHC 31.6 L, RDW Std Deviation 56.8 H, RDW Coeff of [place] 14.7 H, Plt Count 218, MPV 9.9, Immature Gran % (Auto) 0.400, Neut % (Auto) 63.5, Lymph % (Auto) 12.2 L, [place] % (Auto) 17.7 H, Eos % (Auto) 5.6 H, Baso % (Auto) 0.6, Absolute Neuts (auto) 3.1, Absolute Lymphs (auto) 0.59 L, Nucleated RBC % 0, Differential Comment COMMENT, Sodium 139, Potassium 3.1 L, Chloride 105, Carbon Dioxide 26.0, Anion Gap 8, BUN 60 H, Creatinine 6.66 H, Estim Creat Clear Calc 9.44, Est GFR (MDRD) Af Amer 11 L, Est GFR (MDRD) Non-Af 9 L, BUN/Creatinine Ratio 9.0 L, Glucose 88, Calcium 8.4 L Micro: Microbiology 03/01/23 00:30 Stool Stool Lactoferrin - Final 03/01/23 00:30 Stool Enteric Bacteriology - Final 03/01/23 00:30 Stool C. difficile GDH Antigen & Toxins - Final 03/01/23 00:30 Stool C. difficile DNA Amplification - Final 02/28/23 18:18 Stool Stool Occult Blood (ROSEMARY) - Final Occult Blood Positive Physical Exam Const alert, oriented x3, no apparent distress and well nourished; Negative for average body habitus or healthy appearing Constitutional Narrative: Obese, elderly, white male, lying in bed, watching television,currently finishing HD, appears comfortable, nontoxic, appears chronically ill HEENT head/scalp atraumatic and moist oral mucous membranes Head and Scalp: normocephalic Resp normal respiratory effort, no retractions, no use of accessory muscles and clear to auscultation bilaterally Auscultation: Negative for rales, rhonchi or wheezes Cardio regular rate, regular rhythm, S1 normal heart sound, S2 normal heart sound, no murmurs, no rub, no gallops and no clicks GI normal to inspection, nondistended, normoactive bowel sounds and soft to palpation; Negative for non-tender GI Narrative: Abdominal tenderness has resolved Extremity no clubbing, cyanosis or edema Extremity Narrative: Pedal pulses are 2+, right upper extremity fistula is currently being deaccessed Neuro oriented x3, moves all extremities and no focal motor deficits Speech: speech normal Psych affect normal Psych Narrative: Eye contact is good, patient converses and interacts appropriately Assessment & Plan Assessment/Plan (1) Acute blood loss anemia (ABLA): (2) Acute GI bleeding: (3) Hematochezia: (4) Acute on chronic anemia: (5) Elevated troponin: (6) Hypokalemia: (7) Pancolitis: (8) Clostridium difficile infection: (9) Duodenal ulcer: PLAN: Plan GI bleed secondary to duodenal ulcers x3 -EGD performed on 03/03/2023 showed normal upper third of the esophagus with grade a esophagitis, small hiatal hernia, erosive gastropathy with no stigmata of bleeding that was biopsies and 3 oozing duodenal ulcers with pigmented material that were injected and treated with heater probe -Start Protonix 40 mg p.o. twice daily for 8 weeks and then transition to daily -Start Carafate 1 g 4 times daily -Restart Eliquis this evening -GI following-appreciate input and patient will need follow-up as an outpatient after discharge Diffuse colitis -Colonoscopy performed on 03/03/2023 and showed fair prep with hemorrhoids on perianal exam, diverticulosis in the rectosigmoid and sigmoid colon/descending colon and diffuse severe inflammatory colitis that was camejo ulcerative from the rectum to the cecum -C. difficile was positive for PCR and antigen but negative for toxin however with diarrhea and colonoscopy findings we will go ahead and treat with vancomycin 125 mg every 6 for 14 days -IBD work-up has been initiated as well as with his pancolitis Crohn's disease is highly suspected -Start budesonide 9 mg daily -Discussed with gastroenterology Acute on chronic anemia with chronic anemia secondary to chronic renal disease -Chronic anemia due to end-stage renal disease on HD -Transfuse for hemoglobin less than 7 -Hemoglobin is up to 10 today and patient's symptoms have improved dramatically -Restart Eliquis this evening -Continue home iron supplementation -Procrit per nephrology Elevated troponin -On presentation troponin was 434 with a repeat at 450 -No chest pain -If no EKG changes -Patient tends to have an elevated troponin likely related to CKD -We will not pursue any further work-up at this time and monitor clinically -Could consider outpatient stress test once medically stabilized End-stage renal disease-HD dependent -Nephrology following -Continue calcitriol -HD is currently TTS 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 fib with RVR -Currently normal sinus rhythm -Continue home carvedilol -Continue to monitor -Restart Eliquis Mild aortic root dilation -Outpatient follow-up DVT prophylaxis -Restart Eliquis -SCDs CODE STATUS - full code Charges/Coding Visit Charges Inpatient E&M: 53400 Subs Hosp L2
[2023-03-03] MEDS: Potassium Chloride Oral Tablet 20 MEQ 40 MEQ PO (18:49)
[2023-03-03] MEDS: APIXABAN 2.5 MG TABLET (WCH) PO (21:14)
--- NOTE | 2023-03-03 23:40 | CPS ---
spo2 was 87 on room air. pt started on oxygen
[2023-03-04] VITALS (9 sets, daily range): BP systolic 95–131; BP diastolic 32–56; PULSE 88–122; RESP 16–18; TEMP 36.3–37.2; O2SAT 92–98
--- NOTE | 2023-03-04 00:01 | NURSING ---
Addendum entered by Charmaine Brandt 03/04/23 00:07: RT and RN notified of low sats. Will continue to monitor. Original Note: Pt SpO2 at 87% during HS first assessment, applied 3L O2 SpO2 at 94%. States he is not short of breath.
[2023-03-04] MEDS: Sucralfate 1 GM Tablet PO ×4 (06:14→21:29)
[2023-03-04] MEDS: Vancomycin 125 MG/5 ML Susp PO.SYRINGE PO ×3 (06:14→18:16)
[2023-03-04 06:54] LABS: Absolute Lymphocyte Count 0.37 X10^3/uL (0.83-4.51); Absolute Neutrophil Count 5.1 X10^3/uL (2.0-7.7); Basophil# 0.04 X10^3/uL; Basophil% 0.6 % (0-1); Eosinophil# 0.15 X10^3/uL; Eosinophils% 2.2 % (0-5); Hematocrit 29.9 % (40-54); Hemoglobin 9.3 g/dL (13.0-16.5); Lymphocyte # 0.37 X10^3/ul (0.83-4.51); Lymphocyte % 5.4 % (19-41); Mean Corp Hgb Conc 31.1 g/dL (32-36); Mean Platelet Vol. 9.8 fl (6.2-12.0); Monocyte# 1.17 X10^3/uL; NRBC Flagged by Analyzer 0 % (0-5); Neutrophil # 5.08 X10^3/uL (2.7-7.7); Neutrophil % 73.9 % (47-70); POSITIVE DIFFERENTIAL YES; POSITIVE MORPHOLOGY YES; Platelet Count 179 K/mm3 (150-450); RBC Distribution Width SD 58.5 fl (35.1-43.9); Red Blood Count 2.82 M/mm3 (4.6-6.2); White Blood Count 6.9 K/mm3 (4.4-11.0)
[2023-03-04 06:58] LABS: Differential Indicated SCAN CRITERIA MET
[2023-03-04 07:19] LABS: Anion Gap 4 (5-15); BUN 43 mg/dL (7-18); BUN/Creat Ratio 7.5 RATIO (10-20); Calcium,Total 8.2 mg/dL (8.5-10.1); Chloride 108 mmol/L (98-107); Creatinine, Serum 5.73 mg/dL (0.70-1.30); Differential Comment SCANNED; EST Glomerular Filtration Rate 10 mL/min (>60); Est Glom Filt Rate - Afr Amer 12 mL/min (>60); Estimated Creatinine Clearance 10.97 ml/min; Glucose 153 mg/dL (74-106); Potassium 3.9 mmol/L (3.5-5.1); Sodium Level 139 mmol/L (136-145)
--- NOTE | 2023-03-04 08:01 | CON.PCM.CA_ITS ---
Assessment & Plan Assessment/Plan (1) Wide-complex tachycardia: PLAN: He did have an episode of a wide-complex tachycardia. The above could very well be aberrancy due to his right bundle branch block underlying. My recommendation at this time would be to continue him on the anticoagulation and start him on oral amiodarone as an outpatient we may consider a stress test after the patient is noted to be more stable. He should receive a dose of intravenous amiodarone 150 mg and then 200 mg twice a day. (2) Atrial fibrillation: QUALIFIERS: Atrial fibrillation type: unspecified chronic Qualified Code(s): I48.20 - Chronic atrial fibrillation, unspecified PLAN: He will continue rate control and also oral amiodarone. (3) CHF (congestive heart failure): QUALIFIERS: Heart failure type: unspecified Heart failure chronicity: acute Qualified Code(s): I50.9 - Heart failure, unspecified PLAN: He does have evidence of diastolic heart failure. My recommendation is for us to continue the current medical therapy without making any changes. HPI Consult Data Date of Consult: 03/04/23 HPI Narrative Reason for Consultation: Wide-complex tachycardia HPI Narrative: This is a 76-year-old white male who presented to the hospital with GI issues. He has a history of atrial fibrillation with diastolic heart failure, aortic root dilatation, hypertension chronic renal insufficiency on hemodialysis. While in the hospital he was noted to have some episodes of wide-complex tachycardia and his electrolytes were obtained which were noted to be fairly normal. As you know he has had preserved ejection fraction in the past he has not had a recent evaluation of any coronary disease. He has been evaluated by the GI service and has been put back on his anticoagulation. Cardiology was called to see him due to the wide-complex tachycardia. He did have a transthoracic echocardiogram performed through the [facility] system in July 2017. Per the report the left ventricle was thought to be normal at that time with an LVEF of 65%, the left atrium was dilated, the mitral valve had mild thickening with trivial MR, the tricuspid valve had trivial TR. The aorta at the time was thought to be normal with respect to the measurements reported. [facility] Medical History Abnormal finding on ultrasound Acute kidney injury Anemia Aortic root dilatation Bladder cancer Bladder cancer CHF (congestive heart failure) CKD (chronic kidney disease) stage 5, GFR less than 15 ml/min Elevated troponin ESRD (end stage renal disease) ESRD (end stage renal disease) on dialysis Essential hypertension Hepatic cyst History of DVT (deep vein thrombosis) History of pulmonary embolism History of solitary pulmonary nodule HIT (heparin-induced thrombocytopenia) HLD (hyperlipidemia) Hyperparathyroidism Iron deficiency anemia Iron deficiency anemia Left upper chest discomfort Lower gastrointestinal bleeding Lymphoma Lymphoma Neutropenic fever Pancytopenia Paroxysmal A-fib Preop cardiovascular exam Pulmonary embolism Renal calculus Shortness of breath VTE (venous thromboembolism) no medical history Home Medications carvedilol 6.25 mg tablet 3.125 mg PO BID blood pressure 04/24/17 [History Last Taken 02/28/23 11:00 3.125 mg] vitamin B complex 1 tab PO DAILY SUPPLEMENT 07/02/20 [History Last Taken 02/28/23 11:00] vitamin B complex and vitamin C no.20-folic acid 1 mg capsule (Virt-Caps) 1 cap PO DAILY #0 caps 02/23/22 [Rx Last Taken 02/28/23 11:00] ascorbic acid (vitamin C) 500 mg tablet 500 mg PO DAILY supplement 03/12/22 [History Last Taken 02/28/23] apixaban 2.5 mg tablet (Eliquis) 2.5 mg PO BID #0 tabs 03/30/22 [Rx Last Taken 02/28/23 11:00 2.5 mg] calcitriol 0.25 mcg capsule 0.25 mcg PO DAILY supplement 07/30/22 [History Last Taken 02/28/23] sucroferric oxyhydroxide 500 mg chewable tablet (Velphoro) 500 mg PO .with meals 03/01/23 [History Last Taken Unknown] Allergy/AdvReac Type Severity Reaction Status Date / Time enoxaparin [From Lovenox] Allergy Other Verified 02/28/23 17:05 heparin Allergy Other Verified 02/28/23 17:05 aspirin AdvReac Other Verified 02/28/23 17:05 Iodinated Contrast Media AdvReac OTHER Verified 02/28/23 17:05 [CONTRASTS] Family History Father Cancer lung Arrhythmia Brother Cancer Surgical History AV fistula H/O total cystectomy History of cataract extraction History of corrected cleft lip and palate History of tonsillectomy Social History household members: none Smoking Status: Former smoker how long ago did patient quit smokin alcohol intake: never substance use type: does not use caffeine: No ROS Constitutional Constitutional: Reports weakness; Denies fever(s) ENT HEENT: Denies nasal congestion Cardiovascular Cardiovascular: Denies chest pain or edema Respiratory/Chest Respiratory/Chest: Reports dyspnea on exertion Gastrointestinal Gastrointestinal: Reports abdominal pain, anorexia, diarrhea and rectal bleeding; Denies nausea or vomiting Genitourinary Genitourinary: Reports oliguria Musculoskeletal Musculoskeletal: Reports other Details: gen weakness Neurologic Neurologic: Reports weakness Psychiatric Psychiatric: Denies confusion Endocrine Endocrinology: Reports fatigue Hematologic/Lymphatic Hematologic/Lymphatic: Reports anemia Physical Exam Const alert, oriented x3 and no apparent distress General Appearance: cooperative HEENT hearing grossly normal bilaterally Head and Scalp: atraumatic Eyes EOMs intact bilaterally Neck General: normal visual inspection Chest inspection of chest normal and palpation of chest normal Resp normal respiratory effort Auscultation: clear to auscultation bilaterally Cardio S1 normal heart sound and S2 normal heart sound Jugular Venous Distention: JVD Rhythm: abnormal rhythm irregularly irregular GI normal to inspection, nondistended, normoactive bowel sounds Extremity normal capillary refill and no pedal edema Peripheral Pulses: Yes pulses 2+ throughout and femoral pulses present Skin no rashes or lesions noted Neuro oriented x3 and CN's II-XII intact bilaterally Psych Appearance: grossly normal and appropriate Risk Stratification Risk Stratification Applicable: No Objective Data Vital Signs: Vital Signs Temp Pulse Resp BP Pulse Ox O2 Del Method O2 Flow Rate 97.8 F 97 18 104/52 L 98 Nasal Cannula 2 03/04/23 06:18 03/04/23 07:39 03/04/23 07:39 03/04/23 07:39 03/04/23 07:39 03/04/23 07:39 03/04/23 07:39 Oxygen Flow Rate (L/min) 2 Oxygen Delivery Method Nasal Cannula Weight: 214 lb 11.684 oz Body Mass Index (BMI) 31.8 Intake & Output: Intake and Output for Last 24 Hours 03/02/23 03/03/23 03/04/23 23:59 23:59 23:59 Intake Total 25 560 / 560 Output Total 110 / 110 Balance -5 / 185 450 / 450 Lab / Micro Data 03/04/23 06:15 03/04/23 06:15 Labs: Laboratory Results - last 24 hr 03/03/23 06:50: Differential Comment COMMENT 03/04/23 06:15: WBC 6.9, RBC 2.82 L, Hgb 9.3 L, Hct 29.9 L, MCV 106.0 H, MCH 33.0 H, MCHC 31.1 L, RDW Std Deviation 58.5 H, RDW Coeff of [place] 15.0 H, Plt Count 179, MPV 9.8, Immature Gran % (Auto) 0.900, Neut % (Auto) 73.9 H, Lymph % (Auto) 5.4 L, [place] % (Auto) 17.0 H, Eos % (Auto) 2.2, Baso % (Auto) 0.6, Absolute Neuts (auto) 5.1, Absolute Lymphs (auto) 0.37 L, Nucleated RBC % 0, Differential Comment SCANNED, Sodium 139, Potassium 3.9, Chloride 108 H, Carbon Dioxide 27.0, Anion Gap 4 L, BUN 43 H, Creatinine 5.73 H, Estim Creat Clear Calc 10.97, Est GFR (MDRD) Af Amer 12 L, Est GFR (MDRD) Non-Af 10 L, BUN/Creatinine Ratio 7.5 L, Glucose 153 H, Calcium 8.2 L Cardiology Labs/Tests 03/04/23 06:15: WBC 6.9, RBC 2.82 L, Hgb 9.3 L, Hct 29.9 L, MCV 106.0 H, MCH 33.0 H, MCHC 31.1 L, Plt Count 179, MPV 9.8, Immature Gran % (Auto) 0.900, Neut % (Auto) 73.9 H, Lymph % (Auto) 5.4 L, [place] % (Auto) 17.0 H, Eos % (Auto) 2.2, Baso % (Auto) 0.6, Absolute Neuts (auto) 5.1, Nucleated RBC % 0, Sodium 139, Potassium 3.9, Chloride 108 H, Carbon Dioxide 27.0, Anion Gap 4 L, BUN 43 H, Creatinine 5.73 H, Est GFR (MDRD) Af Amer 12 L, Est GFR (MDRD) Non-Af 10 L, BUN/Creatinine Ratio 7.5 L, Glucose 153 H, Calcium 8.2 L Rhythm: EKG: ECHO: Stress Test: Cardiac Cath: PCI: CT Surgery: Holter monitor: EPS: PPM: CXR: Chest CT Scan:
[2023-03-04 08:14] LABS: Magnesium 2.6 mg/dL (1.6-2.6)
[2023-03-04] MEDS: Potassium Chloride Oral Tablet 20 MEQ 40 MEQ PO (08:38)
[2023-03-04] MEDS: Amiodarone 150 MG in Dextrose 5%-Water (100mL Bag) 100 ML 600 MG IV BOLUS (08:39)
[2023-03-04] MEDS: Pantoprazole Sodium 40 MG Tablet PO ×2 (08:41→21:29)
[2023-03-04] MEDS: Carvedilol 3.125 MG TABLET PO (08:41)
[2023-03-04] MEDS: Folic Acid/Vitamin B Comp W-C 1 Capsule 1 CAP PO (08:41)
[2023-03-04] MEDS: Ascorbic Acid 500 MG Tablet PO (08:41)
[2023-03-04] MEDS: Calcitriol 0.25 MCG Capsule PO (08:41)
[2023-03-04] MEDS: 0.9% Saline Lock 10 ML Syringe IV ×2 (08:41→10:02)
[2023-03-04] MEDS: APIXABAN 2.5 MG TABLET (WCH) PO ×2 (08:44→21:29)
[2023-03-04] MEDS: Vitamin B Comp W-C Capsule 1 CAP PO (08:44)
[2023-03-04] MEDS: Budesonide 3 MG CAPSULE.EC 9 MG PO (08:44)
[2023-03-04] MEDS: Amiodarone 200 MG Tablet PO ×2 (10:02→21:28)
--- NOTE | 2023-03-04 11:35 | CASEMGMT ---
RN MIREYA Face to Face with patient for initial transition planning/care coordination assessment. RN CM introduced self and role at [facility]. Patient lying in bed, alert and oriented. Patient willing to participate in assessment and is able to answer all questions appropriately. Care providers, pharmacy, and demographics verified. Patient wishes to discharge home, denies need for home health at this time. Patient states he has no further needs or concerns at this time. CM to follow for discharge planning needs that may arise. PCP: Enrique Specialists: Neri hand plug shaper; ZAHRA, cardiology Preferred Pharmacy: [facility] Insurance: Fran QUAN Prescription Benefit: yes Living Will/HPOA: yes, son Paul Rizvi LNOK: son Living Arrangements: Patient lives alone in a single story home with no steps to enter. Patient states he is independent. Transportation: self, son DME/HHC: Patient states he has built in shower chair, cane. walker, grab bars, pulse ox, and home oxygen through [employer] with POC. Patient has HD TTS 1120 at [facility]. Will monitor for increased oxygen. Disposition Plan: Patient to discharge home with family support and follow-up plans in place. Ro NAIR, RN, CM
--- NOTE | 2023-03-04 12:40 | PN.HOSP_ITS ---
Reason for Visit Reason for Visit: Hematochezia Subjective Subjective Patient developed some wide-complex tachycardia overnight. It does appear to be either VT or A-fib with aberrancy. Cardiology was consulted and we have loaded him with amiodarone and will start amiodarone orally and continue his oral anticoagulation which was started again last night. Said no further bleeding and states he is feeling pretty well overall. The arrhythmia was asymptomatic. Objective Data Objective Data Vital Signs: Vital Signs Temp Pulse Resp BP Pulse Ox O2 Del Method O2 Flow Rate 98 F 90 18 98/47 L 94 Room Air 2 03/04/23 10:05 03/04/23 10:05 03/04/23 10:05 03/04/23 10:03/04/23 10:03/04/23 10:03/04/23 07:39 Oxygen Flow Rate (L/min) 2 Oxygen Delivery Method Room Air Weight: 97.4 kg Body Mass Index (BMI) 31.8 Intake & Output: Intake and Output for Last 24 Hours 03/02/23 03/03/23 03/04/23 23:59 23:59 23:59 Intake Total 25 / 225 560 / 560 103 / 103 Output Total 30 / 40 110 / 110 Balance -5 / 185 450 / 450 103 / 103 Lab / Micro Data 03/04/23 06:15 03/04/23 06:15 Labs: Laboratory Results - last 24 hr 02/28/23 21:40: Crossmatch See Detail 03/04/23 06:15: WBC 6.9, RBC 2.82 L, Hgb 9.3 L, Hct 29.9 L, MCV 106.0 H, MCH 33.0 H, MCHC 31.1 L, RDW Std Deviation 58.5 H, RDW Coeff of Lencho 15.0 H, Plt Count 179, MPV 9.8, Immature Gran % (Auto) 0.900, Neut % (Auto) 73.9 H, Lymph % (Auto) 5.4 L, [place] % (Auto) 17.0 H, Eos % (Auto) 2.2, Baso % (Auto) 0.6, Absolute Neuts (auto) 5.1, Absolute Lymphs (auto) 0.37 L, Nucleated RBC % 0, Differential Comment SCANNED, Sodium 139, Potassium 3.9, Chloride 108 H, Carbon Dioxide 27.0, Anion Gap 4 L, BUN 43 H, Creatinine 5.73 H, Estim Creat Clear Calc 10.97, Est GFR (MDRD) Af Amer 12 L, Est GFR (MDRD) Non-Af 10 L, BUN/Creatinine Ratio 7.5 L, Glucose 153 H, Calcium 8.2 L, Magnesium 2.6 Micro: Microbiology 03/01/23 00:30 Stool Stool Lactoferrin - Final 03/01/23 00:30 Stool Enteric Bacteriology - Final 03/01/23 00:30 Stool C. difficile GDH Antigen & Toxins - Final 03/01/23 00:30 Stool C. difficile DNA Amplification - Final 02/28/23 18:18 Stool Stool Occult Blood (ROSEMARY) - Final Occult Blood Positive Physical Exam Const alert, oriented x3, no apparent distress and well nourished; Negative for average body habitus or healthy appearing Constitutional Narrative: Obese, elderly, white male, lying in bed, watching television, finishing breakfast, appears comfortable, nontoxic, appears chronically ill HEENT head/scalp atraumatic and moist oral mucous membranes HEENT Narrative: Dentition is poor, Mallampati is 2-3, no thrush Head and Scalp: normocephalic Resp normal respiratory effort, no retractions, no use of accessory muscles and clear to auscultation bilaterally Auscultation: Negative for rales, rhonchi or wheezes Cardio regular rate, regular rhythm, S1 normal heart sound, S2 normal heart sound, no murmurs, no rub, no gallops and no clicks GI normal to inspection, nondistended, normoactive bowel sounds and soft to palpation; Negative for non-tender GI Narrative: Abdominal tenderness has resolved Extremity no clubbing, cyanosis or edema Extremity Narrative: Pedal pulses are 2+, right upper extremity fistula is currently being deaccessed Skin Skin Narrative: Right chest Mediport accessed-clean and dry Neuro oriented x3, moves all extremities and no focal motor deficits Speech: speech normal Psych affect normal Psych Narrative: Eye contact is good, patient converses and interacts appropriately Assessment & Plan Assessment/Plan (1) Acute blood loss anemia (ABLA): (2) Acute GI bleeding: (3) Hematochezia: (4) Acute on chronic anemia: (5) Elevated troponin: (6) Hypokalemia: (7) Pancolitis: (8) Clostridium difficile infection: (9) Duodenal ulcer: (10) Wide-complex tachycardia: PLAN: Plan GI bleed secondary to duodenal ulcers x3 -EGD performed on 03/03/2023 showed normal upper third of the esophagus with grade a esophagitis, small hiatal hernia, erosive gastropathy with no stigmata of bleeding that was biopsies and 3 oozing duodenal ulcers with pigmented material that were injected and treated with heater probe -Continue Protonix 40 mg p.o. twice daily for 8 weeks and then transition to daily -Continue Carafate 1 g 4 times daily -We will continue Eliquis and monitor hemoglobin -GI following-appreciate input and patient will need follow-up as an outpatient after discharge Diffuse colitis -Colonoscopy performed on 03/03/2023 and showed fair prep with hemorrhoids on perianal exam, diverticulosis in the rectosigmoid and sigmoid colon/descending colon and diffuse severe inflammatory colitis that was camejo ulcerative from the rectum to the cecum -C. difficile was positive for PCR and antigen but negative for toxin however with diarrhea and colonoscopy findings we will go ahead and treat with vancomycin 125 mg every 6 for 14 days--> day 1 of 14 -IBD work-up has been initiated as well as with his pancolitis Crohn's disease is highly suspected -Continue budesonide 9 mg daily -Discussed with gastroenterology and will have patient follow-up after discharge Acute on chronic anemia with chronic anemia secondary to chronic renal disease -Chronic anemia due to end-stage renal disease on HD -Transfuse for hemoglobin less than 7 -Hemoglobin is 9.3 today and shows stability despite reinitiation of Eliquis -Continue home iron supplementation -Procrit per nephrology Wide-complex tachycardia -Patient with recent echocardiogram with normal EF -Magnesium is normal at 2.6, potassium was 3.9 so I did give him 40 mill equivalents -Discussed with cardiology and we loaded him with amiodarone 150 mg IV x1 and then started amiodarone orally 200 twice daily -Cardiology consultation--> we will arrange for outpatient follow-up after discharge to follow-up with possible noninvasive testing -[place] that this could either be VT or A-fib with RVR in the setting of a chronic right bundle branch block Elevated troponin -On presentation troponin was 434 with a repeat at 450 -No chest pain -If no EKG changes -Patient tends to have an elevated troponin likely related to CKD -We will not pursue any further work-up at this time and monitor clinically -Could consider outpatient stress test once medically stabilized End-stage renal disease-HD dependent -Nephrology following -Continue calcitriol -HD is currently TTS -We will try to get patient discharge tomorrow if remains stable so he can ma ke his chair time at 11 AM Chronic thrombocytopenia -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 fib with RVR -Currently normal sinus rhythm -Continue home carvedilol -Amiodarone added for wide-complex tachycardia -Continue to monitor -Continue Eliquis Mild aortic root dilation -Outpatient follow-up DVT prophylaxis -Eliquis CODE STATUS - full code Charges/Coding Visit Charges Inpatient E&M: 62540 Subs Hosp L2
--- NOTE | 2023-03-04 16:21 | CASEMGMT ---
KRUPA GOMES called [facility] to see if patient can have HD tomorrow after discharge. Per Lacey at [facility], patient can have HD Tuesday if patient is there at 1100. KRUPA GOMES updated nursing and hospitalist.
[2023-03-04] MEDS: Carvedilol 6.25 MG Tablet PO (16:40)
[2023-03-05] VITALS: BP 112/50; PULSE 85; RESP 18; TEMP 36.8; O2SAT 95
[2023-03-05] MEDS: Vancomycin 125 MG/5 ML Susp PO.SYRINGE PO ×2 (00:03→06:53)
[2023-03-05 06:00] VITALS: BP 106/56; PULSE 86; RESP 16; TEMP 36.9; O2SAT 92
[2023-03-05] MEDS: Sucralfate 1 GM Tablet PO (06:53)
[2023-03-05] MEDS: 0.9% Saline Lock 10 ML Syringe IV (06:53)
--- NOTE | 2023-03-05 08:05 | PCM.DC.SUM ---
Providers Date of Admission: 03/03/23 Date of Discharge: 03/05/23 Primary Care Physician: Dr. Martin Nunez, Consultations 02/28/23 23:30 Consult: Gastroenterology Routine Consulting Provider: Govind [facility] Reason for Consult: GI bleed EMERGENT Consult: No Notified: Yes Date Notified: 02/28/23 Time Notified: 21:19 Method of Notification: ED Physician Initiated Consult: Nephrology Routine Consulting Provider: Sonia He Reason for Consult: End-stage renal disease on dialysis (; ; tue) EMERGENT Consult: No Notified: Yes Date Notified: 03/01/23 Time Notified: 06:58 Method of Notification: Text 03/04/23 08:00 Consult: Cardiology Routine Consulting Provider: Rogelio Brewer Reason for Consult: VT EMERGENT Consult: No Notified: Yes Date Notified: 03/04/23 Time Notified: 08:00 Method of Notification: Verbal Reason For Visit: ACUTE GI BLEED Diagnosis Discharge Diagnosis (1) Acute blood loss anemia (ABLA): Status: Deleted Code(s): D62 - Acute posthemorrhagic anemia (2) Acute GI bleeding: Status: Acute Code(s): K92.2 - Gastrointestinal hemorrhage, unspecified (3) Hematochezia: Status: Acute Code(s): K92.1 - Melena (4) Acute on chronic anemia: Status: Chronic Code(s): D64.9 - Anemia, unspecified (5) Elevated troponin: Status: Acute Code(s): R77.8 - Other specified abnormalities of plasma proteins (6) Hypokalemia: Status: Acute Code(s): E87.6 - Hypokalemia (7) Pancolitis: Status: Acute Code(s): K51.00 - Ulcerative (chronic) pancolitis without complications (8) Clostridium difficile infection: Status: Acute Code(s): A49.8 - Other bacterial infections of unspecified site (9) Duodenal ulcer: Status: Acute Code(s): K26.9 - Duodenal ulcer, unspecified as acute or chronic, without hemorrhage or perforation (10) Wide-complex tachycardia: Status: Acute Code(s): R00.0 - Tachycardia, unspecified Medications at Discharge Home Medications carvedilol 6.25 mg tablet 3.125 mg PO BID blood pressure 11/05/17 vitamin B complex 1 tab PO DAILY SUPPLEMENT 07/02/20 vitamin B complex and vitamin C no.20-folic acid 1 mg capsule (Virt-Caps) 1 cap PO DAILY vitamin #0 caps 02/23/22 ascorbic acid (vitamin C) 500 mg tablet 500 mg PO DAILY supplement 03/12/22 apixaban 2.5 mg tablet (Eliquis) 2.5 mg PO BID blood thinner #0 tabs 03/30/22 calcitriol 0.25 mcg capsule 0.25 mcg PO DAILY supplement 07/30/22 sucroferric oxyhydroxide 500 mg chewable tablet (Velphoro) 500 mg PO .with meals 03/01/23 amiodarone 200 mg tablet 200 mg PO DAILY #35 tabs 03/05/23 budesonide 3 mg capsule,delayed,extended release 9 mg (3 x 3 mg) PO DAILY #90 ea 03/05/23 pantoprazole 40 mg tablet,delayed release 40 mg PO BID #60 tabs 03/05/23 sucralfate 1 gram tablet 1 g PO 1HR_ACHS #120 tabs 03/05/23 vancomycin 125 mg capsule 125 mg PO Q6H #48 caps 03/05/23 Hospital Course Operations None Procedures Colonoscopy, Dialysis, EGD, EKG and - (Chest x-ray/CT abdomen and pelvis) Summary of Care Provided Minutes Spent on Discharge: 40 Hospital Course: Mr. Rizvi is a 77-year-old male with a history of renal disease and A-fib with RVR on beta-marixa and Eliquis who presented to the emergency department at [facility] on 02/28/2022 with a large amount of bright red blood per rectum. He reported it started on the same day of presentation and he complained of concomitant weakness and lightheadedness. He reported that he had had some diarrhea for 2 to 3 weeks and was placed on ciprofloxacin and Flagyl for his diarrhea. His stools were heme positive in the emergency department. He is still having ongoing loose stools but he states that the jovanni diarrhea has improved. Gastroenterology was consulted by the emergency department and recommended hospitalization for EGD and colonoscopy. Patient reported that his baseline hemoglobin runs around 12 at dialysis however on presentation his hemoglobin was 8.9. His Eliquis was held on presentation. He was taken for EGD and colonoscopy on 03/03/2023. EGD demonstrated a normal upper two thirds of the esophagus with grade a esophagitis at the distal portion, small hiatal hernia, erosive gastropathy with no stigmata of recent bleeding and biopsies were taken, and 3 oozing cratered duodenal ulcers with pigmented material in the duodenal bulb. The largest was 6 mm in dimension and they were treated with epi injection and coagulation for hemostasis with heater probe. Biopsies were taken here as well. Recommendations for this were Carafate 1 g p.o. 4 times daily for 4 weeks and Protonix 40 mg p.o. twice daily for 8 weeks. His colonoscopy revealed fair preparation with hemorrhoids on the perianal exam, diverticulosis of the rectosigmoid, sigmoid, descending:, Severe colitis that was biopsied and camejo ulcerative colitis in the setting of C. difficile colitis. We started him on vancomycin 125 mg 4 times daily for 2 weeks. And Entocort EC 9 mg p.o. daily as it is highly suspected that he has inflammatory bowel disease per discussion with gastroenterology. We did obtain stool studies once 1 was able to be provided and he was antigen and PCR positive for C. difficile but his toxin was negative. Given the severe findings on his colonoscopy and issues with diarrhea we will go ahead and treat him. He was placed on vancomycin 125 mg every 6 hours and he will continue this for total of 14 days. We restarted his Eliquis and his hemoglobin remained stable. He did develop some wide-complex tachycardia. He had a recent echocardiogram with a normal EF. I consulted cardiology and they recommended loading him with amiodarone 150 mg IV x1 and then starting amiodarone 200 mg p.o. twice daily for 7 days with transition to 200 mg daily following. He will be followed up as an outpatient for noninvasive testing if needed. An appointment was made prior to discharge and he will be seen on April 05. These runs of wide-complex tachycardia were asymptomatic and it is suspected that this may be A-fib with aberrancy as he does have a history of atrial fibrillation however VT cannot be completely ruled out. He had a few shorter runs after the amiodarone was initiated with the longest being in a run strip. I discussed with cardiology and they felt he could go home and keep his outpatient follow-up appointment. He is scheduled for dialysis later today and will follow-up with his hot braider as previously scheduled an outpatient. He was maintained on his regular dialysis schedule during his hospitalization. Again he has follow-up appointment with cardiology on 04/05/2023. I recommend that he follow-up with his primary care physician within the next 2 weeks. His hemoglobin at the time of discharge was 9.5. Ambulatory pulse ox was performed prior to discharge and his sats at rest were 94 and with ambulation were 93%. He was discharged home in stable condition on 03/05/2023. He will go to his dialysis session today 11 AM. Discharge diagnoses: GI bleed Duodenal bulb ulcers x3 Mild gastritis Diffuse colitis/pancolitis C. difficile colitis Acute on chronic anemia with chronic anemia secondary to chronic renal disease Wide-complex tachycardia End-stage renal disease-HD dependent Chronic stable thrombocytopenia PAF Mild aortic root dilation Physical Exam Const alert, oriented x3, no apparent distress and well nourished; Negative for average body habitus or healthy appearing Constitutional Narrative: Obese, elderly, white male, sitting up in bed, watching television, finishing breakfast, appears comfortable, nontoxic, appears chronically ill, very pleasant General Appearance: cooperative, comfortable, well kempt and well developed Orientation / Consciousness: awake, oriented to person, oriented to place and oriented to time Exam Limitations: no limitations Nutritional Appearance: obese HEENT normocephalic, head/scalp atraumatic and moist oral mucous membranes; Negative for hearing grossly normal bilaterally HEENT Narrative: Mild hearing loss, dentition is poor, Mallampati is 3, no thrush Eyes PERRL and EOMs intact bilaterally Eyes Narrative: No scleral icterus, mild conjunctival pallor Neck no lymphadenopathy and supple Neck Narrative: Trachea midline, no thyroid enlargement Resp normal respiratory effort, no retractions, no use of accessory muscles and clear to auscultation bilaterally Resp Narrative: Diminished but clear Auscultation: Negative for rales, rhonchi or wheezes Cardio regular rate, regular rhythm, S1 normal heart sound, S2 normal heart sound, no murmurs, no rub, no gallops and no clicks GI normal to inspection, nondistended, normoactive bowel sounds and soft to palpation; Negative for non-tender GI Narrative: Mild tenderness left lower and right lower quadrant today Extremity no clubbing, cyanosis or edema Extremity Narrative: Pedal pulses are 2+, right upper extremity fistula with thrill and bruit Skin no wounds, skin turgor normal and no jaundice Skin Narrative: Right chest Mediport accessed-clean and dry Neuro oriented x3, CN's II-XII intact bilaterally, moves all extremities and no focal motor deficits Neuro Narrative: Mild generalized weakness with no focal deficits Speech: speech normal Psych affect normal Psych Narrative: Eye contact is good, patient converses and interacts appropriately Weight / BMI Weight Weight: 97.4 kg Body Mass Index (BMI) 31.8 ABG / Lab / Microbiology Data 03/05/23 08:19 03/05/23 08:19 Laboratory: Laboratory Results - last 24 hr 02/28/23 21:40: Crossmatch See Detail 03/04/23 06:15: Magnesium 2.6 Microbiology: Microbiology 03/01/23 00:30 Stool Stool Lactoferrin - Final 03/01/23 00:30 Stool Enteric Bacteriology - Final 03/01/23 00:30 Stool C. difficile GDH Antigen & Toxins - Final 03/01/23 00:30 Stool C. difficile DNA Amplification - Final 02/28/23 18:18 Stool Stool Occult Blood (ROSEMARY) - Final Occult Blood Positive D/C Instructions Discharge Diet: Renal Diet Discharge Activity: Return to Normal Activity Meaningful Use Info Meaningful Use Diagnoses (Choose all that apply): None applicable Discharge Plan Admission Admit Date/Time: 03/03/23 16:34 Primary Reason for Your Visit: Hematochezia Attending Provider: Ban He Primary Care Provider: Martin Nunez Consulting Providers: Magno Navarro; Sonia He; Rogelio Brewer Instructions Additional Instructions / Restrictions: 1. You were started on amiodarone. He will continue with this medication and take 1 tablet twice daily for another 7 days and then decrease to 1 tablet daily 2. You were started on Protonix 40 mg twice daily. He will continue this for 8 weeks and then transition to 40 mg daily 3. You were started on Carafate 1 tablet 4 times daily and he will continue this for total of 4 weeks 4. You were started on vancomycin 125 mg every 6 hours and you will continue this for another 12 days 5. Continue your Eliquis as previously prescribed 6. Please call Dr. Garay (ironworker apprentice) on Tuesday to make a follow-up appointment to be seen within the next 2 to 3 months Discharge Orders/Prescriptions Prescriptions: New amiodarone 200 mg Tablet 200 mg PO DAILY Qty: 35 0RF Rx Instructions: Twice daily for 7 days then decrease to 1 tablet daily budesonide 3 mg Capsule,Delayed,Extend.Release 9 mg PO DAILY Qty: 90 1RF pantoprazole 40 mg Tablet,Delayed Release (Dr/Ec) 40 mg PO BID Qty: 60 1RF Rx Instructions: Take twice daily for 8 weeks then will decrease to daily sucralfate 1 gram Tablet 1 g PO 1HR_ACHS Qty: 120 0RF vancomycin 125 mg capsule 125 mg PO Q6H Qty: 48 0RF Continued carvedilol 6.25 MG tablet 3.125 mg PO BID vitamin B complex 1 EACH tablet 1 tab PO DAILY Virt-Caps 1 mg Capsule 1 cap PO DAILY Qty: 0 0RF Eliquis 2.5 mg Tablet 2.5 mg PO BID Qty: 0 0RF Patient Comments: LAST DOSE WILL BE 03/27/22 PM Rx Instructions: resume on 03/31, evening dose calcitriol 0.25 mcg capsule 0.25 mcg PO DAILY Velphoro 500 mg tablet,chewable 500 mg PO .with meals ascorbic acid (vitamin C) 500 mg tablet 500 mg PO DAILY Referrals / Follow Up: Rogelio Brewer MD [Med Staff - Active Staff] - 04/04/23 11:30 am Martin Nunez DO [Primary Care Provider] - Within 2 Weeks Wolfgang Garay DO [Med Staff - Active Staff] - See Referral Note (Call Tuesday to set up an appointment to be seen within the next 2 to 3 months) Disposition Disposition (needs filled in before D/C Order can be placed): Home, Self Care Charges/Coding Visit Charges Inpatient E&M: 92770 Disch Hosp >30min
[2023-03-05 08:27] LABS: Absolute Lymphocyte Count 0.66 X10^3/uL (0.83-4.51); Absolute Neutrophil Count 4.3 X10^3/uL (2.0-7.7); Basophil# 0.02 X10^3/uL; Basophil% 0.3 % (0-1); Eosinophil# 0.18 X10^3/uL; Hematocrit 30.6 % (40-54); Hemoglobin 9.5 g/dL (13.0-16.5); Lymphocyte # 0.66 X10^3/ul (0.83-4.51); Lymphocyte % 10.9 % (19-41); Mean Corpuscular Hgb 33.5 pg (27.0-32.0); Mean Corpuscular Volume 107.7 fL (80-94); Mean Platelet Vol. 9.7 fl (6.2-12.0); Monocyte# 0.85 X10^3/uL; Monocyte% 14.1 % (0-10); NRBC Flagged by Analyzer 0 % (0-5); Neutrophil # 4.28 X10^3/uL (2.7-7.7); Platelet Count 182 K/mm3 (150-450); RBC Distribution Width CV 15.2 % (11.6-14.6); RBC Distribution Width SD 59.6 fl (35.1-43.9); Red Blood Count 2.84 M/mm3 (4.6-6.2)
[2023-03-05 08:36] VITALS: BP 103/61; PULSE 98; RESP 18; TEMP 36.4; O2SAT 94
[2023-03-05] MEDS: Carvedilol 6.25 MG Tablet PO (08:41)
[2023-03-05] MEDS: Budesonide 3 MG CAPSULE.EC 9 MG PO (08:41)
[2023-03-05] MEDS: Pantoprazole Sodium 40 MG Tablet PO (08:41)
[2023-03-05] MEDS: APIXABAN 2.5 MG TABLET (WCH) PO (08:41)
[2023-03-05] MEDS: Ascorbic Acid 500 MG Tablet PO (08:41)
[2023-03-05] MEDS: Amiodarone 200 MG Tablet PO (08:41)
[2023-03-05] MEDS: Vitamin B Comp W-C Capsule 1 CAP PO (08:41)
[2023-03-05] MEDS: Folic Acid/Vitamin B Comp W-C 1 Capsule 1 CAP PO (08:41)
[2023-03-05 08:42] LABS: Anion Gap 5 (5-15); BUN 53 mg/dL (7-18); BUN/Creat Ratio 7.1 RATIO (10-20); Calcium,Total 8.2 mg/dL (8.5-10.1); Chloride 111 mmol/L (98-107); Creatinine, Serum 7.44 mg/dL (0.70-1.30); EST Glomerular Filtration Rate 8 mL/min (>60); Est Glom Filt Rate - Afr Amer 9 mL/min (>60); Estimated Creatinine Clearance 8.45 ml/min; Glucose 128 mg/dL (74-106); Potassium 3.8 mmol/L (3.5-5.1); Sodium Level 140 mmol/L (136-145)
--- NOTE | 2023-03-05 09:07 | CASEMGMT ---
KRUPA CM into pt room. Pt denies any homegoing needs. Pt is aware that his vancomycin is $86 using [facility]. Pt reports this is affordable to him. Pt denies need for C. Pt to be at [facility] today by 11am.
[2023-03-05 10:11] VITALS: O2SAT 90; O2SAT 94
--- NOTE | 2023-03-05 10:32 | NURSING ---
pt states can not use heparin when removing port, pt only wanted normal saline flush.
== END 2023-03-05 10:52 | disposition home or self-care (01) | DRG 377 ==
LOC: ED 21:21 → PCU 03-01 01:42
PROVIDERS: Internal Medicine Gastroenterology; Physician Assistant; Admitting Provider Hospitalist; Emergency Provider Emergency Medicine; PCP Student in an Organized Health Care Education/Training Program; Visit Provider Internal Medicine
PROC: 0DJD8ZZ Inspection of Lower Intestinal Tract, Via Natural or Artificial Opening Endoscopic (ICD-10-PCS; CPT 45378; principal; 2023-03-03 11:25)
DX: K26.4 Chronic or unspecified duodenal ulcer with hemorrhage (principal); N18.6 End stage renal disease; A04.72 Enterocolitis due to Clostridium difficile, not specified as recurrent; I13.2 Hypertensive heart and chronic kidney disease with heart failure and with stage 5 chronic kidney disease, or end stage renal disease; I47.20 Ventricular tachycardia, unspecified; I50.32 Chronic diastolic (congestive) heart failure; K51.00 Ulcerative (chronic) pancolitis without complications; D62 Acute posthemorrhagic anemia; N13.2 Hydronephrosis with renal and ureteral calculous obstruction; D75.829 Heparin-induced thrombocytopenia, unspecified; D63.1 Anemia in chronic kidney disease; K57.31 Diverticulosis of large intestine without perforation or abscess with bleeding; I77.810 Thoracic aortic ectasia; Z99.2 Dependence on renal dialysis; I48.0 Paroxysmal atrial fibrillation; E78.5 Hyperlipidemia, unspecified; I25.10 Atherosclerotic heart disease of native coronary artery without angina pectoris; E87.6 Hypokalemia; K64.9 Unspecified hemorrhoids; K21.00 Gastro-esophageal reflux disease with esophagitis, without bleeding; K44.9 Diaphragmatic hernia without obstruction or gangrene; I45.10 Unspecified right bundle-branch block; E66.9 Obesity, unspecified; Z68.31 Body mass index [BMI] 31.0-31.9, adult; K29.51 Unspecified chronic gastritis with bleeding; R77.8 Other specified abnormalities of plasma proteins; Z90.6 Acquired absence of other parts of urinary tract; Z79.01 Long term (current) use of anticoagulants; Z79.899 Other long term (current) drug therapy; Z87.891 Personal history of nicotine dependence
CPT/HCPCS: 36415; 71046; 74176; 80048; 80053; 81001; 82274; 83630; 83735; 84100; 84484; 85014; 85018; 85025; 86850; 86900; 86901; 86920; 86922; 87177; 87209; 87493; 87506; 88305; 88342; 90937; 93005; 97802; 99285; J7030; J7040; J7120; A4216; G0257; J0885; J2405

== ENCOUNTER 2023-03-21 19:11 | Inpatient (IN) | payer MEDICARE, BC, SELFPAY ==
[2023-03-21] VITALS (11 sets, daily range): BP systolic 84–96; BP diastolic 44–68; PULSE 77–96; RESP 15–26; TEMP 36.6–37.1; O2SAT 92–95; BMI 32.1; BMI 70.4
--- NOTE | 2023-03-21 20:15 | EKG12_ITS ---
Test Reason : GI BLEED Blood Pressure : / mmHG Vent. Rate : 088 BPM Atrial Rate : 000 BPM P-R Int : 000 ms QRS Dur : 170 ms QT Int : 428 ms P-R-T Axes : 000 -78 124 degrees QTc Int : 517 ms Atrial fibrillation Left axis deviation Right bundle branch block T wave abnormality, consider lateral ischemia Abnormal ECG Confirmed by SHAYNA BYERS, JEANETTE ([id number]), managing editor JESU WAGONER ([id number]) on 03/25/2023 2:25:40 PM Referred By: Confirmed By:JEANETTE CORRAL MD
[2023-03-21 20:27] LABS: Absolute Lymphocyte Count 0.26 X10^3/uL (0.83-4.51); Absolute Neutrophil Count 16.7 X10^3/uL (2.0-7.7); Basophil# 0.01 X10^3/uL; Basophil% 0.1 % (0-1); Hematocrit 22.2 % (40-54); Hemoglobin 6.9 g/dL (13.0-16.5); Lymphocyte # 0.26 X10^3/ul (0.83-4.51); Lymphocyte % 1.5 % (19-41); Mean Corp Hgb Conc 31.1 g/dL (32-36); Mean Corpuscular Hgb 34.5 pg (27.0-32.0); Mean Platelet Vol. 10.7 fl (6.2-12.0); Monocyte# 0.63 X10^3/uL; Monocyte% 3.5 % (0-10); NRBC Flagged by Analyzer 0 % (0-5); Neutrophil # 16.66 X10^3/uL (2.7-7.7); Neutrophil % 93.7 % (47-70); POSITIVE DIFFERENTIAL YES; POSITIVE MORPHOLOGY YES; Platelet Count 101 K/mm3 (150-450); RBC Distribution Width CV 19.5 % (11.6-14.6); RBC Distribution Width SD 77.7 fl (35.1-43.9); White Blood Count 17.8 K/mm3 (4.4-11.0)
[2023-03-21 20:30] LABS: Differential Indicated SCAN CRITERIA MET
--- NOTE | 2023-03-21 20:40 | EDS_ITS ---
HPI HPI - GI History of Present Illness Chief Complaint: GI Bleed Informant: patient and family Abdominal Pain/Flank Pain Onset: Days Context: Gradual Onset Timing: Intermittent Quality: Dull Location: LLQ Worsened by: Nothing Relieved by: Nothing Nausea/Vomiting/Emesis GI Symptom: Negative for Nausea or Vomiting Diarrhea/Melena/Hematochezia GI Symptom: Positive for Melena Onset: Days Stool Quality: Positive for Black Associated Symptoms Associated Symptoms: Negative for Dysuria, Frequency or Hematuria Narrative Narrative: Patient presents with abdominal pain and melena for the past few days. Patient states that he noted some black stools over the last couple days. Patient states he was admitted to the hospital recently and was diagnosed with gastric ulcers. Patient states that he has continued taking his Eliquis. Patient admits to some lightheadedness that has been intermittent. Patient also admits to some intermittent dull abdominal pain. Patient states it is mainly over the left lower abdomen. Patient denies any fevers or chills. Patient also admits to some occasional shortness of breath. Patient states this is worse with any exertion. [facility] Medical History Abnormal finding on ultrasound Acute kidney injury Anemia Aortic root dilatation Atrial fibrillation Bladder cancer Bladder cancer CHF (congestive heart failure) CKD (chronic kidney disease) stage 5, GFR less than 15 ml/min Duodenal ulcer Elevated troponin Elevated troponin ESRD (end stage renal disease) ESRD (end stage renal disease) on dialysis ESRD (end stage renal disease) on dialysis Essential hypertension Hepatic cyst History of DVT (deep vein thrombosis) History of pulmonary embolism History of solitary pulmonary nodule HIT (heparin-induced thrombocytopenia) HLD (hyperlipidemia) Hyperparathyroidism Iron deficiency anemia Iron deficiency anemia Left upper chest discomfort Lower gastrointestinal bleeding Lymphoma Lymphoma Neutropenic fever Pancytopenia Paroxysmal A-fib Preop cardiovascular exam Pulmonary embolism Renal calculus Shortness of breath VTE (venous thromboembolism) Wide-complex tachycardia Home Medications carvedilol 6.25 mg tablet 3.125 mg PO BID blood pressure 04/24/17 [History Last Taken 02/28/23 11:00 3.125 mg] vitamin B complex 1 tab PO DAILY SUPPLEMENT 07/02/20 [History Last Taken 02/28/23 11:00] vitamin B complex and vitamin C no.20-folic acid 1 mg capsule (Virt-Caps) 1 cap PO DAILY vitamin #0 caps 02/23/22 [Rx Last Taken 02/28/23 11:00] ascorbic acid (vitamin C) 500 mg tablet 500 mg PO DAILY supplement 03/12/22 [History Last Taken 02/28/23] apixaban 2.5 mg tablet (Eliquis) 2.5 mg PO BID blood thinner #0 tabs 03/30/22 [Rx Last Taken 02/28/23 11:00 2.5 mg] calcitriol 0.25 mcg capsule 0.25 mcg PO DAILY supplement 07/30/22 [History Last Taken 02/28/23] sucroferric oxyhydroxide 500 mg chewable tablet (Velphoro) 500 mg PO .with meals 03/01/23 [History Last Taken Unknown] amiodarone 200 mg tablet 200 mg PO DAILY #35 tabs 03/05/23 [Rx Last Taken Unknown] budesonide 3 mg capsule,delayed,extended release 9 mg (3 x 3 mg) PO DAILY #90 ea 03/05/23 [Rx Last Taken Unknown] pantoprazole 40 mg tablet,delayed release 40 mg PO BID #60 tabs 03/05/23 [Rx Last Taken Unknown] sucralfate 1 gram tablet 1 g PO 1HR_ACHS #120 tabs 03/05/23 [Rx Last Taken Unknown] vancomycin 125 mg capsule 125 mg PO Q6H #48 caps 03/05/23 [Rx Last Taken Unknown] Allergy/AdvReac Type Severity Reaction Status Date / Time enoxaparin [From Lovenox] Allergy Other Verified 02/28/23 17:05 heparin Allergy Other Verified 02/28/23 17:05 aspirin AdvReac Other Verified 02/28/23 17:05 Iodinated Contrast Media AdvReac OTHER Verified 02/28/23 17:05 [CONTRASTS] Family History Father Cancer lung Arrhythmia Brother Cancer Surgical History AV fistula H/O total cystectomy History of cataract extraction History of corrected cleft lip and palate History of tonsillectomy Social History household members: none Smoking Status: Former smoker how long ago did patient quit smokin alcohol intake: never substance use type: does not use caffeine: No ROS ROS ED Constitutional Constitutional ED: Denies chills or fever(s) Eyes Eyes: Denies blurry vision or change in vision ENT ENT ED: Denies rhinorrhea or sore throat Cardiovascular Cardiovascular: Denies chest pain or palpitations Respiratory/Chest Respiratory/Chest: Reports dyspnea; Denies cough Gastrointestinal Gastrointestinal: Reports abdominal pain and melena; Denies nausea or vomiting Genitourinary Genitourinary ED: Denies dysuria or hematuria Musculoskeletal Musculoskeletal: Denies back pain or neck pain Integumentary Denies abscess or rash Neurologic Neurologic: Reports weakness; Denies headache(s) Allergic/Immunologic Allergic/Immunologic ED: Denies mouth swelling or urticaria EXAM Physical Exam Const Vital Signs: 03/21/23 19:14 03/21/23 19:37 03/21/23 20:16 Temperature 98.8 F Temperature Source Oral Pulse Rate 90 82 Respiratory Rate 18 17 Blood Pressure 89/51 L 89/48 L Blood Pressure Mean 63 61 Pulse Ox 92 94 Oxygen Delivery Method Room Air Nasal Cannula Nasal Cannula Oxygen Flow Rate (L/min) 2 Positive well nourished and well developed General Appearance ED: well developed and NAD HEENT Reports moist mucous membranes Neck supple and no JVD Resp normal respiratory effort and clear to auscultation bilaterally Cardio Rhythm: abnormal rhythm irregularly irregular GI non-distended Palpation: soft and tender LLQ; Negative for guarding or rebound tenderness present Extremity full ROM General Extremety ED: Negative for edema or tenderness General Extremity: Negative for edema Neuro CN's II-XII intact bilaterally, moves all extremities and no sensory deficits noted Sensorium / Orientation: alert Motor Exam: strength 5/5 throughout Psych mental status grossly normal MDM MDM MDM Narrative Medical decision making narrative: Torrential diagnosis includes gastrointestinal bleeding, anemia, coagulopathy, dysrhythmia, and cardiac ischemia. CBC will be obtained to assess for leukocytosis and anemia. Basic metabolic profile will be obtained to assess for electrolyte abnormality and renal function. High-sensitivity troponin will be obtained to assess for cardiac ischemia. PT with INR and PTT will be obtained to assess for coagulopathy. AG will be obtained to assess for cardiac dysrhythmia and cardiac ischemia. Lab Data Attestation: I reviewed the patient's lab results. Lab results narrative: CBC was reviewed. There is a leukocytosis of 17.8. Hemoglobin was 6.9 and hematocrit was 22.2. Platelets were 101. PT with INR and PTT were reviewed. Pro time was 24.5 and INR is 2.2. PTT was elevated at 56.7. Basic metabolic profile was reviewed. BUN was 85 this was increased from previous result. Creatinine was 7.33. This is consistent with prior results. Glucose was 249. High-sensitivity troponin was reviewed and was slightly elevated at 274. Labs: Laboratory Results - last 24 hr 03/21/23 19:22 WBC 17.8 H RBC 2.00 L Hgb 6.9 L Hct 22.2 L MCV 111.0 H MCH 34.5 H MCHC 31.1 L RDW Std Deviation 77.7 H RDW Coeff of Lencho 19.5 H Plt Count 101 L MPV 10.7 Immature Gran % (Auto) 1.200 H Neut % (Auto) 93.7 H Lymph % (Auto) 1.5 L [place] % (Auto) 3.5 Eos % (Auto) 0.0 Baso % (Auto) 0.1 Absolute Neuts (auto) 16.7 H Absolute Lymphs (auto) 0.26 L Nucleated RBC % 0 Differential Comment SCANNED Hypochromasia 1+ Anisocytosis 2+ Microcytosis 1+ Macrocytosis 1+ PT 24.5 H INR 2.2 APTT 56.7 H Sodium 139 Potassium 3.5 Chloride 101 Carbon Dioxide 27.0 Anion Gap 11 BUN 85 H Creatinine 7.33 H Estim Creat Clear Calc 8.57 Est GFR (MDRD) Af Amer 9 L Est GFR (MDRD) Non-Af 8 L BUN/Creatinine Ratio 11.6 Glucose 249 H Calcium 8.1 L Troponin I High Sens 274 H* Blood Type O POSITIVE Antibody Screen NEGATIVE Crossmatch See Detail EKG Initial EKG: Attestation: I personally reviewed and interpreted this EKG as follows: Interpretation: Atrial Fibrillation (88), RBBB and Non-Specific ST Changes Comments: EKG was obtained. On my independent interpretation, it shows atrial fibrillation with a rate of 88. QRS interval was slightly prolonged at 170 ms. QTc interval was slightly prolonged at 517 ms. There is left axis deviation at -78. There is a right bundle branch block pattern noted. There are nonspecific ST-T wave changes. Prior EKG tracings: available for review Prior: Unchanged (03/03/2023) Management Discussion w/another healthcare provider: Hospitalist and [employer] Treatment and Re-Evaluation :: Patient was advised of his findings. Type and crossmatch was obtained. Patient will be transfused with 2 units packed red blood cells. Patient was given a dose of Protonix here. Case was discussed with Dr. Garay. He recommended Protonix 40 mg IV twice daily. Case was discussed with the hospitalist. He will admit the patient to his service. Patient understood and was agreeable w ith the plan. All questions were answered. Discharge Plan Triage Chief Complaint: GI Bleed ED Provider: Ed Bradley Dx/Rx/DC Orders Clinical Impression: Gastrointestinal bleeding, upper, ESRD (end stage renal disease) on dialysis, Anemia, Atrial fibrillation Prescriptions: No Action carvedilol 6.25 MG tablet 3.125 mg PO BID vitamin B complex 1 EACH tablet 1 tab PO DAILY Virt-Caps 1 mg Capsule 1 cap PO DAILY Qty: 0 0RF Eliquis 2.5 mg Tablet 2.5 mg PO BID Qty: 0 0RF Patient Comments: LAST DOSE WILL BE 03/27/22 PM Rx Instructions: resume on 03/31, evening dose calcitriol 0.25 mcg capsule 0.25 mcg PO DAILY Velphoro 500 mg tablet,chewable 500 mg PO .with meals amiodarone 200 mg Tablet 200 mg PO DAILY Qty: 35 0RF Rx Instructions: Twice daily for 7 days then decrease to 1 tablet daily budesonide 3 mg Capsule,Delayed,Extend.Release 9 mg PO DAILY Qty: 90 1RF pantoprazole 40 mg Tablet,Delayed Release (Dr/Ec) 40 mg PO BID Qty: 60 1RF Rx Instructions: Take twice daily for 8 weeks then will decrease to daily sucralfate 1 gram Tablet 1 g PO 1HR_ACHS Qty: 120 0RF vancomycin 125 mg capsule 125 mg PO Q6H Qty: 48 0RF ascorbic acid (vitamin C) 500 mg tablet 500 mg PO DAILY Primary Care Provider: Martin Nunez Referrals: Martin Nunez DO [Primary Care Provider] - Disposition Disposition: Acute Care Hospital [facility]
[2023-03-21 20:45] LABS: International Normalized Ratio 2.2; Prothrombin Time (Protime)PT. 24.5 SECONDS (11.7-14.9)
[2023-03-21 20:47] LABS: Partial Thromboplast Time 56.7 Seconds (24.1-36.2)
[2023-03-21] MEDS: 0.9% Normal Saline (500mL Bag) 500 ML 1000 ML IV (20:55)
[2023-03-21 21:00] LABS: Anisocytosis 2+; Differential Comment SCANNED; Hypochromasia 1+; Macrocytosis 1+; Microcytosis 1+
[2023-03-21 21:04] LABS: Anion Gap 11 (5-15); BUN 85 mg/dL (7-18); BUN/Creat Ratio 11.6 RATIO (10-20); Calcium,Total 8.1 mg/dL (8.5-10.1); Chloride 101 mmol/L (98-107); Creatinine, Serum 7.33 mg/dL (0.70-1.30); EST Glomerular Filtration Rate 8 mL/min (>60); Est Glom Filt Rate - Afr Amer 9 mL/min (>60); Estimated Creatinine Clearance 8.57 ml/min; Glucose 249 mg/dL (74-106); Potassium 3.5 mmol/L (3.5-5.1); Sodium Level 139 mmol/L (136-145); Troponin-I HS 274 pg/mL (3.0-78.0)
[2023-03-21] MEDS: Pantoprazole Sodium 80 MG in 0.9% Normal Saline (50mL Bag) 15 ML 420 MG IV BOLUS (21:33)
--- NOTE | 2023-03-21 22:09 | HP.PCM_ITS ---
[facility] - General General Date of Admission: 03/21/23 Date of Service: 03/21/23 Chief Complaint: Gastrointestinal bleed [facility] Narrative RIA MARIANO, is a 77 M who presents to the emergency room with chief complaint of gastrointestinal bleed. Patient was seen and discharged 2 weeks previously for the similar gastrointestinal bleed for which she received endoscopy and was diagnosed with ulcers in the duodenum. Patient also has a past medical history of dialysis for end-stage renal disease. Today he noticed feeling dizzy and lightheaded and had dark stools. His hemoglobin is currently 6.9 and has been typed and crossed for transfusion. Patient denies any chest pain, fever or chills, nausea vomiting or diarrhea. He has been started on IV Protonix and will be seen by Dr. Garay nursing support worker here while inpatient. [facility] Medical History (Updated 03/21/23 @ 22:[address] Gen Chin MD) Abnormal finding on ultrasound Acute kidney injury Anemia Aortic root dilatation Atrial fibrillation Bladder cancer Bladder cancer CHF (congestive heart failure) CKD (chronic kidney disease) stage 5, GFR less than 15 ml/min Duodenal ulcer Elevated troponin Elevated troponin ESRD (end stage renal disease) ESRD (end stage renal disease) on dialysis ESRD (end stage renal disease) on dialysis Essential hypertension Hepatic cyst History of DVT (deep vein thrombosis) History of pulmonary embolism History of solitary pulmonary nodule HIT (heparin-induced thrombocytopenia) HLD (hyperlipidemia) Hyperparathyroidism Iron deficiency anemia Iron deficiency anemia Left upper chest discomfort Lower gastrointestinal bleeding Lymphoma Lymphoma Neutropenic fever Pancytopenia Paroxysmal A-fib Preop cardiovascular exam Pulmonary embolism Renal calculus Shortness of breath VTE (venous thromboembolism) Wide-complex tachycardia Home Medications carvedilol 6.25 mg tablet 3.125 mg PO BID blood pressure 04/24/17 [History Last Taken 02/28/23 11:00 3.125 mg] vitamin B complex 1 tab PO DAILY SUPPLEMENT 07/02/20 [History Last Taken 02/28/23 11:00] vitamin B complex and vitamin C no.20-folic acid 1 mg capsule (Virt-Caps) 1 cap PO DAILY vitamin #0 caps 02/23/22 [Rx Last Taken 02/28/23 11:00] ascorbic acid (vitamin C) 500 mg tablet 500 mg PO DAILY supplement 03/12/22 [History Last Taken 02/28/23] apixaban 2.5 mg tablet (Eliquis) 2.5 mg PO BID blood thinner #0 tabs 03/30/22 [Rx Last Taken 02/28/23 11:00 2.5 mg] calcitriol 0.25 mcg capsule 0.25 mcg PO DAILY supplement 07/30/22 [History Last Taken 02/28/23] sucroferric oxyhydroxide 500 mg chewable tablet (Velphoro) 500 mg PO .with meals 03/01/23 [History Last Taken Unknown] amiodarone 200 mg tablet 200 mg PO DAILY #35 tabs 03/05/23 [Rx Last Taken Unknown] budesonide 3 mg capsule,delayed,extended release 9 mg (3 x 3 mg) PO DAILY #90 ea 03/05/23 [Rx Last Taken Unknown] pantoprazole 40 mg tablet,delayed release 40 mg PO BID #60 tabs 03/05/23 [Rx Last Taken Unknown] sucralfate 1 gram tablet 1 g PO 1HR_ACHS #120 tabs 03/05/23 [Rx Last Taken Unknown] vancomycin 125 mg capsule 125 mg PO Q6H #48 caps 03/05/23 [Rx Last Taken Unknown] Allergy/AdvReac Type Severity Reaction Status Date / Time enoxaparin [From Lovenox] Allergy Other Verified 02/28/23 17:05 heparin Allergy Other Verified 02/28/23 17:05 aspirin AdvReac Other Verified 02/28/23 17:05 Iodinated Contrast Media AdvReac OTHER Verified 02/28/23 17:05 [CONTRASTS] Family History Father Cancer lung Arrhythmia Brother Cancer Surgical History AV fistula H/O total cystectomy History of cataract extraction History of corrected cleft lip and palate History of tonsillectomy Social History household members: none Smoking Status: Former smoker how long ago did patient quit smokin alcohol intake: never substance use type: does not use caffeine: No ROS ROS Narrative pale Constitutional Constitutional: Reports weakness; Denies chills or fever(s) Eyes Eyes: Denies change in vision ENT HEENT: Denies abnormal hearing Cardiovascular Cardiovascular: Denies chest pain Respiratory/Chest Respiratory/Chest: Reports shortness of breath with exertion Gastrointestinal Gastrointestinal: Denies abdominal pain Genitourinary Genitourinary: Denies hematuria Musculoskeletal Musculoskeletal: Denies back pain Integumentary Integumentary: Reports dry skin Neurologic Neurologic: Reports dizziness; Denies abnormal gait or abnormal speech Psychiatric Psychiatric: Denies depression Vital Signs Vital Signs Vital Signs: 03/21/23 19:14 03/21/23 19:37 03/21/23 20:16 Temperature 98.8 F Temperature Source Oral Pulse Rate 90 82 Respiratory Rate 18 17 Blood Pressure 89/51 L 89/48 L Blood Pressure Mean 63 61 Pulse Ox 92 94 Oxygen Delivery Method Room Air Nasal Cannula Nasal Cannula Oxygen Flow Rate (L/min) 2 Weight Weight: 217 lb 13.067 oz Body Mass Index (BMI) 32.1 Physical Exam Const oriented x3 HEENT normocephalic and head/scalp atraumatic Eyes PERRL and EOMs intact bilaterally Neck no lymphadenopathy Lymph Lymphatic: no lymphadenopathy noted Resp normal respiratory effort, normal air movement and clear to auscultation bilaterally Cardio regular rate, regular rhythm, S1 normal heart sound and S2 normal heart sound GI soft to palpation and non-tender Skin Skin Narrative: pale/yellow Neuro no focal motor deficits and no sensory deficits noted Psych thought process normal, cooperative and affect normal Results Lab / Micro Data 03/21/23 19:22 03/21/23 19:22 Labs: Laboratory Results - last 24 hr 03/21/23 19:22: WBC 17.8 H, RBC 2.00 L, Hgb 6.9 L, Hct 22.2 L, MCV 111.0 H, MCH 34.5 H, MCHC 31.1 L, RDW Std Deviation 77.7 H, RDW Coeff of Lencho 19.5 H, Plt Count 101 L, MPV 10.7, Immature Gran % (Auto) 1.200 H, Neut % (Auto) 93.7 H, Lymph % (Auto) 1.5 L, [place] % (Auto) 3.5, Eos % (Auto) 0.0, Baso % (Auto) 0.1, Absolute Neuts (auto) 16.7 H, Absolute Lymphs (auto) 0.26 L, Nucleated RBC % 0, Differential Comment SCANNED, Hypochromasia 1+, Anisocytosis 2+, Microcytosis 1+, Macrocytosis 1+, PT 24.5 H, INR 2.2, APTT 56.7 H, Sodium 139, Potassium 3.5, Chloride 101, Carbon Dioxide 27.0, Anion Gap 11, BUN 85 H, Creatinine 7.33 H, Estim Creat Clear Calc 8.57, Est GFR (MDRD) Af Amer 9 L, Est GFR (MDRD) Non-Af 8 L, BUN/Creatinine Ratio 11.6, Glucose 249 H, Calcium 8.1 L, Troponin I High Sens 274 H*, Blood Type O POSITIVE, Antibody Screen NEGATIVE, Crossmatch See Detail Assessment & Plan Assessment/Plan (1) ESRD (end stage renal disease) on dialysis: (2) CHF (congestive heart failure): QUALIFIERS: Heart failure type: unspecified Heart failure chronicity: acute Qualified Code(s): I50.9 - Heart failure, unspecified (3) Acute on chronic anemia: (4) GIB (gastrointestinal bleeding): PLAN: Plan 1 acute gastrointestinal bleed?admit patient to general medical floor, make patient n.p.o. with IV Protonix 40 mg p.o. twice daily consult Dr. Garay for gastroenterology management. Due to acute anemia patient has been typed and crossed matched and will be transfused. Repeat CBC in a.m. after transfusion. 2. End-stage renal disease on dialysis?we will consult nephrology if patient is due for dialysis 3. DVT prophylaxis we will initiate SCDs due to renal failure Charges/Coding Visit Charges Inpatient E&M: 23349 Init Hosp L2
--- NOTE | 2023-03-21 23:00 | EX.PCM.CON.G ---
HPI Consult Data Date of Consult: 03/21/23 HPI Narrative Reason for Consultation: GI bleed HPI Narrative: RIA MARIANO, is a 77 M who presented to the hospital with GI issues on previous admission. He has a history of atrial fibrillation with diastolic heart failure, aortic root dilatation, hypertension chronic renal insufficiency on hemodialysis. While in the hospital he was noted to have some episodes of wide-complex tachycardia and his electrolytes were obtained which were noted to be fairly normal. He presented to the emergency department at [facility] on 02/28/2022 with a large amount of bright red blood per rectum. He reported it started on the same day of presentation and he complained of concomitant weakness and lightheadedness. He reported that he had had some diarrhea for 2 to 3 weeks and was placed on ciprofloxacin and Flagyl for his diarrhea. His stools were heme positive in the emergency department. He is still having ongoing loose stools but he states that the jovanni diarrhea has improved. I was consulted by the emergency department and recommended hospitalization for EGD and colonoscopy. Patient reported that his baseline hemoglobin runs around 12 at dialysis however on presentation his hemoglobin was 8.9. His Eliquis was held on presentation. He was taken for EGD and colonoscopy on 03/03/2023. EGD demonstrated a normal upper two thirds of the esophagus with grade a esophagitis at the distal portion, small hiatal hernia, erosive gastropathy with no stigmata of recent bleeding and biopsies were taken, and 3 oozing cratered duodenal ulcers with pigmented material in the duodenal bulb. The largest was 6 mm in dimension and they were treated with epi injection and coagulation for hemostasis with heater probe. Biopsies were taken here as well. Recommendations for this were Carafate 1 g p.o. 4 times daily for 4 weeks and Protonix 40 mg p.o. twice daily for 8 weeks. His colonoscopy revealed fair preparation with hemorrhoids on the perianal exam, diverticulosis of the rectosigmoid, sigmoid, descending:, Severe colitis that was biopsied and camejo ulcerative colitis in the setting of C. difficile colitis. We started him on vancomycin 125 mg 4 times daily for 2 weeks. And Entocort EC 9 mg p.o. daily as it is highly suspected that he has inflammatory bowel disease. We did obtain stool studies once 1 was able to be provided and he was antigen and PCR positive for C. difficile but his toxin was negative. Given the severe findings on his colonoscopy and issues with diarrhea we will go ahead and treat him. He was placed on vancomycin 125 mg every 6 hours and he will continue this for total of 14 days. He was restarted on his Eliquis and his hemoglobin remained stable. He did develop some wide-complex tachycardia. He had a recent echocardiogram with a normal EF. Patient presents with abdominal pain and melena for the past few days. Patient states that he noted some black stools over the last couple days. Patient states he was admitted to the hospital recently and was diagnosed with gastric ulcers. Patient states that he has continued taking his Eliquis. Patient admits to some lightheadedness that has been intermittent. Patient also admits to some intermittent dull abdominal pain. Patient states it is mainly over the left lower abdomen. Patient denies any fevers or chills. Patient also admits to some occasional shortness of breath. Patient states this is worse with any exertion. [facility] Medical History Abnormal finding on ultrasound Acute kidney injury Anemia Aortic root dilatation Atrial fibrillation Bladder cancer Bladder cancer CHF (congestive heart failure) CKD (chronic kidney disease) stage 5, GFR less than 15 ml/min Duodenal ulcer Elevated troponin Elevated troponin ESRD (end stage renal disease) ESRD (end stage renal disease) on dialysis ESRD (end stage renal disease) on dialysis Essential hypertension Hepatic cyst History of DVT (deep vein thrombosis) History of pulmonary embolism History of solitary pulmonary nodule HIT (heparin-induced thrombocytopenia) HLD (hyperlipidemia) Hyperparathyroidism Iron deficiency anemia Iron deficiency anemia Left upper chest discomfort Lower gastrointestinal bleeding Lymphoma Lymphoma Neutropenic fever Pancytopenia Paroxysmal A-fib Preop cardiovascular exam Pulmonary embolism Renal calculus Shortness of breath VTE (venous thromboembolism) Wide-complex tachycardia Home Medications carvedilol 6.25 mg tablet 3.125 mg PO BID blood pressure 04/24/17 [History Last Taken 02/28/23 11:00 3.125 mg] vitamin B complex 1 tab PO DAILY SUPPLEMENT 07/02/20 [History Last Taken 02/28/23 11:00] vitamin B complex and vitamin C no.20-folic acid 1 mg capsule (Virt-Caps) 1 cap PO DAILY vitamin #0 caps 02/23/22 [Rx Last Taken 02/28/23 11:00] ascorbic acid (vitamin C) 500 mg tablet 500 mg PO DAILY supplement 03/12/22 [History Last Taken 02/28/23] apixaban 2.5 mg tablet (Eliquis) 2.5 mg PO BID blood thinner #0 tabs 03/30/22 [Rx Last Taken 02/28/23 11:00 2.5 mg] calcitriol 0.25 mcg capsule 0.25 mcg PO DAILY supplement 07/30/22 [History Last Taken 02/28/23] sucroferric oxyhydroxide 500 mg chewable tablet (Velphoro) 500 mg PO .with meals 03/01/23 [History Last Taken Unknown] amiodarone 200 mg tablet 200 mg PO DAILY #35 tabs 03/05/23 [Rx Last Taken Unknown] budesonide 3 mg capsule,delayed,extended release 9 mg (3 x 3 mg) PO DAILY #90 ea 03/05/23 [Rx Last Taken Unknown] pantoprazole 40 mg tablet,delayed release 40 mg PO BID #60 tabs 03/05/23 [Rx Last Taken Unknown] sucralfate 1 gram tablet 1 g PO 1HR_ACHS #120 tabs 03/05/23 [Rx Last Taken Unknown] vancomycin 125 mg capsule 125 mg PO Q6H #48 caps 03/05/23 [Rx Last Taken Unknown] Allergy/AdvReac Type Severity Reaction Status Date / Time enoxaparin [From Lovenox] Allergy Other Verified 02/28/23 17:05 heparin Allergy Other Verified 02/28/23 17:05 aspirin AdvReac Other Verified 02/28/23 17:05 Iodinated Contrast Media AdvReac OTHER Verified 02/28/23 17:05 [CONTRASTS] Family History Father Cancer lung Arrhythmia Brother Cancer Surgical History AV fistula H/O total cystectomy History of cataract extraction History of corrected cleft lip and palate History of tonsillectomy Social History household members: none Smoking Status: Former smoker how long ago did patient quit smokin alcohol intake: never substance use type: does not use caffeine: No ROS Constitutional Constitutional: Reports weakness; Denies chills, fever(s) or malaise Eyes Eyes: Denies loss of vision ENT HEENT: Denies loss taste/smell Cardiovascular Cardiovascular: Denies chest pain or leg edema Respiratory/Chest Respiratory/Chest: Denies dyspnea on exertion Gastrointestinal Gastrointestinal: Reports abdominal pain, diarrhea and melena; Denies anorexia, hematemesis, hematochezia or nausea Genitourinary Genitourinary: Reports oliguria Psychiatric Psychiatric: Denies confusion or depression Hematologic/Lymphatic Hematologic/Lymphatic: Reports anemia Physical Exam Const alert and oriented x3 Resp clear to auscultation bilaterally Cardio Rhythm: abnormal rhythm irregularly irregular GI non-tender and non-distended Auscultation: normoactive bowel sounds Palpation: soft Extremity no clubbing, cyanosis or edema General Extremity: AV fistula Neuro CN's II-XII intact bilaterally Psych cooperative Lab / Micro Data 03/22/23 05:05 03/22/23 05:05 Labs: Laboratory Results - last 24 hr 03/21/23 19:22: WBC 17.8 H, RBC 2.00 L, Hgb 6.9 L, Hct 22.2 L, MCV 111.0 H, MCH 34.5 H, MCHC 31.1 L, RDW Std Deviation 77.7 H, RDW Coeff of Lencho 19.5 H, Plt Count 101 L, MPV 10.7, Immature Gran % (Auto) 1.200 H, Neut % (Auto) 93.7 H, Lymph % (Auto) 1.5 L, [place] % (Auto) 3.5, Eos % (Auto) 0.0, Baso % (Auto) 0.1, Absolute Neuts (auto) 16.7 H, Absolute Lymphs (auto) 0.26 L, Nucleated RBC % 0, Differential Comment SCANNED, Hypochromasia 1+, Anisocytosis 2+, Microcytosis 1+, Macrocytosis 1+, PT 24.5 H, INR 2.2, APTT 56.7 H, Sodium 139, Potassium 3.5, Chloride 101, Carbon Dioxide 27.0, Anion Gap 11, BUN 85 H, Creatinine 7.33 H, Estim Creat Clear Calc 8.57, Est GFR (MDRD) Af Amer 9 L, Est GFR (MDRD) Non-Af 8 L, BUN/Creatinine Ratio 11.6, Glucose 249 H, Calcium 8.1 L, Troponin I High Sens 274 H*, Blood Type O POSITIVE, Antibody Screen NEGATIVE, Crossmatch See Detail 03/22/23 05:05: WBC 15.8 H, RBC 2.61 L, Hgb 8.7 L, Hct 27.1 L, MCV 103.8 H D, MCH 33.3 H, MCHC 32.1, RDW Std Deviation 71.7 H, RDW Coeff of Lencho 19.4 H, Plt Count 102 L, MPV 10.5, Immature Gran % (Auto) 1.400 H, Neut % (Auto) 92.0 H, Lymph % (Auto) 2.0 L, [place] % (Auto) 4.5, Eos % (Auto) 0.0, Baso % (Auto) 0.1, Absolute Neuts (auto) 14.5 H, Absolute Lymphs (auto) 0.31 L, Nucleated RBC % 0, Anisocytosis 2+, Macrocytosis 2+, Sodium 140, Potassium 3.7, Chloride 104, Carbon Dioxide 26.0, Anion Gap 10, BUN 89 H, Creatinine 7.86 H*, Estim Creat Clear Calc 8.00, Est GFR (MDRD) Af Amer 9 L, Est GFR (MDRD) Non-Af 7 L, BUN/Creatinine Ratio 11.3, Glucose 177 H, Calcium 8.3 L Assessment & Plan Assessment/Plan (1) Acute blood loss anemia (ABLA): (2) Acute GI bleeding: (3) Hematochezia: (4) Acute on chronic anemia: (5) Elevated troponin: (6) Hypokalemia: (7) Pancolitis: (8) Clostridium difficile infection: (9) Duodenal ulcer: (10) Wide-complex tachycardia: PLAN: Plan GI bleed secondary to duodenal ulcers x3 -EGD performed on 03/03/2023 showed normal upper third of the esophagus with grade a esophagitis, small hiatal hernia, erosive gastropathy with no stigmata of bleeding that was biopsies and 3 oozing duodenal ulcers with pigmented material that were injected and treated with heater probe -Continue Protonix 40 mg p.o. twice daily for 8 weeks and then transition to daily -Continue Carafate 1 g 4 times daily -We will be performing a repeat upper endoscopy to evaluate his upper GI tract to see if the restarting of his Eliquis because recurrent GI bleeding. Diffuse colitis -Colonoscopy performed on 03/03/2023 and showed fair prep with hemorrhoids on perianal exam, diverticulosis in the rectosigmoid and sigmoid colon/descending colon and diffuse severe inflammatory colitis that was camejo ulcerative from the rectum to the cecum -C. difficile was positive for PCR and antigen but negative for toxin however with diarrhea and colonoscopy findings we will go ahead and treat with vancomycin 125 mg every 6 for 14 days--> day 1 of 14 -IBD work-up has been initiated as well as with his pancolitis Crohn's disease is highly suspected -Continue budesonide 9 mg daily -Discussed with gastroenterology and will have patient follow-up after discharge Acute on chronic anemia with chronic anemia secondary to chronic renal disease -Chronic anemia due to end-stage renal disease on HD -Transfuse for hemoglobin less than 7 -Hemoglobin is 8.3 today -Continue home iron supplementation -Procrit per nephrology Charges/Coding Visit Charges Inpatient E&M: 70169 Init Hosp L3
[2023-03-22] VITALS (23 sets, daily range): BP systolic 91–225; BP diastolic 49–75; PULSE 70–83; RESP 16–20; TEMP 36–36.6; O2SAT 80–100; BMI 32.3
[2023-03-22 05:52] LABS: Absolute Lymphocyte Count 0.31 X10^3/uL (0.83-4.51); Absolute Neutrophil Count 14.5 X10^3/uL (2.0-7.7); Basophil# 0.01 X10^3/uL; Basophil% 0.1 % (0-1); Hematocrit 27.1 % (40-54); Hemoglobin 8.7 g/dL (13.0-16.5); Lymphocyte # 0.31 X10^3/ul (0.83-4.51); Mean Corp Hgb Conc 32.1 g/dL (32-36); Mean Corpuscular Hgb 33.3 pg (27.0-32.0); Mean Corpuscular Volume 103.8 fL (80-94); Mean Platelet Vol. 10.5 fl (6.2-12.0); Monocyte# 0.71 X10^3/uL; Monocyte% 4.5 % (0-10); NRBC Flagged by Analyzer 0 % (0-5); Neutrophil # 14.51 X10^3/uL (2.7-7.7); POSITIVE DIFFERENTIAL YES; POSITIVE MORPHOLOGY YES; Platelet Count 102 K/mm3 (150-450); RBC Distribution Width CV 19.4 % (11.6-14.6); RBC Distribution Width SD 71.7 fl (35.1-43.9); Red Blood Count 2.61 M/mm3 (4.6-6.2); White Blood Count 15.8 K/mm3 (4.4-11.0)
[2023-03-22 05:56] LABS: Differential Indicated SCAN CRITERIA MET
[2023-03-22 06:42] LABS: Anisocytosis 2+; Macrocytosis 2+
[2023-03-22 07:23] LABS: Anion Gap 10 (5-15); BUN 89 mg/dL (7-18); BUN/Creat Ratio 11.3 RATIO (10-20); Calcium,Total 8.3 mg/dL (8.5-10.1); Chloride 104 mmol/L (98-107); Creatinine, Serum 7.86 mg/dL (0.70-1.30); EST Glomerular Filtration Rate 7 mL/min (>60); Est Glom Filt Rate - Afr Amer 9 mL/min (>60); Glucose 177 mg/dL (74-106); Potassium 3.7 mmol/L (3.5-5.1); Sodium Level 140 mmol/L (136-145)
--- NOTE | 2023-03-22 07:30 | PCM.PN.HOSP ---
Reason for Visit Reason for Visit: Diagnoses Anemia, unspecified (03/21/23) Heart failure, unspecified (03/21/23) Gastrointestinal hemorrhage, unspecified (03/21/23) End stage renal disease (03/21/23) Dependence on renal dialysis (03/21/23) Subjective Subjective Patient is a 77-year-old gentleman who presented with black tarry stools. Patient had apparently been diagnosed with duodenal ulcers based on an EGD performed on 03/03/2023. Patient was also found to have colitis and tested positive for C. difficile with PCR toxin was however negative. Discharged on vancomycin as well as Entocort Objective Data Objective Data Vital Signs: Vital Signs Temp Pulse Resp BP Pulse Ox O2 Del Method O2 Flow Rate 98 F 80 18 98/55 L 99 Room Air 2 03/22/23 04:15 03/22/23 06:55 03/22/23 04:15 03/22/23 06:55 03/22/23 04:15 03/22/23 04:31 03/22/23 04:31 Oxygen Flow Rate (L/min) 2 Oxygen Delivery Method Room Air Weight: 216.6 kg Body Mass Index (BMI) 70.4 Intake & Output: Intake and Output for Last 24 Hours 03/20/23 03/21/23 03/22/23 23:59 23:59 23:59 Intake Total 535 / 535 800 / 800 Output Total 0 / 0 Balance 535 / 535 800 / 800 Lab / Micro Data 03/22/23 05:05 03/22/23 05:05 Labs: Laboratory Results - last 24 hr 03/21/23 19:22: WBC 17.8 H, RBC 2.00 L, Hgb 6.9 L, Hct 22.2 L, MCV 111.0 H, MCH 34.5 H, MCHC 31.1 L, RDW Std Deviation 77.7 H, RDW Coeff of Lencho 19.5 H, Plt Count 101 L, MPV 10.7, Immature Gran % (Auto) 1.200 H, Neut % (Auto) 93.7 H, Lymph % (Auto) 1.5 L, [place] % (Auto) 3.5, Eos % (Auto) 0.0, Baso % (Auto) 0.1, Absolute Neuts (auto) 16.7 H, Absolute Lymphs (auto) 0.26 L, Nucleated RBC % 0, Differential Comment SCANNED, Hypochromasia 1+, Anisocytosis 2+, Microcytosis 1+, Macrocytosis 1+, PT 24.5 H, INR 2.2, APTT 56.7 H, Sodium 139, Potassium 3.5, Chloride 101, Carbon Dioxide 27.0, Anion Gap 11, BUN 85 H, Creatinine 7.33 H, Estim Creat Clear Calc 8.57, Est GFR (MDRD) Af Amer 9 L, Est GFR (MDRD) Non-Af 8 L, BUN/Creatinine Ratio 11.6, Glucose 249 H, Calcium 8.1 L, Troponin I High Sens 274 H*, Blood Type O POSITIVE, Antibody Screen NEGATIVE, Crossmatch See Detail 03/22/23 05:05: WBC 15.8 H, RBC 2.61 L, Hgb 8.7 L, Hct 27.1 L, MCV 103.8 H D, MCH 33.3 H, MCHC 32.1, RDW Std Deviation 71.7 H, RDW Coeff of Lencho 19.4 H, Plt Count 102 L, MPV 10.5, Immature Gran % (Auto) 1.400 H, Neut % (Auto) 92.0 H, Lymph % (Auto) 2.0 L, [place] % (Auto) 4.5, Eos % (Auto) 0.0, Baso % (Auto) 0.1, Absolute Neuts (auto) 14.5 H, Absolute Lymphs (auto) 0.31 L, Nucleated RBC % 0, Anisocytosis 2+, Macrocytosis 2+, Sodium 140, Potassium 3.7, Chloride 104, Carbon Dioxide 26.0, Anion Gap 10, BUN 89 H, Creatinine 7.86 H*, Estim Creat Clear Calc 8.00, Est GFR (MDRD) Af Amer 9 L, Est GFR (MDRD) Non-Af 7 L, BUN/Creatinine Ratio 11.3, Glucose 177 H, Calcium 8.3 L Physical Exam Narrative GENERAL: cooperative HEENT: Atraumatic; normocephalic EYES; Anicteric, Normal Conjunctiva NECK; supple, normal thyroid, RESPIRATORY: Diminished to auscultation CARDIOVASCULAR: Regular S1 S2, GI: soft, normoactive bowel sounds, : No Renal angle tenderness; EXTREMITIES: No edema, no clubbing, MUSCULOSKELETAL: no muscle wasting NEURO: Awake; no lateralizing signs. SKIN: No Rash PSYCH; Flat affect Assessment & Plan Assessment/Plan (1) GIB (gastrointestinal bleeding): QUALIFIERS: GI bleed type/associated pathology: duodenal ulcer Qualified Code(s): K26.4 - Chronic or unspecified duodenal ulcer with hemorrhage PLAN: Plan Patient is a 77-year-old gentleman who presented with black tarry stools. Patient had apparently been diagnosed with duodenal ulcers based on an EGD performed on 03/03/2023. Patient was also found to have colitis and tested positive for C. difficile with PCR toxin was however negative. Discharged on vancomycin as well as Entocort 1. Acute GI bleed ? EGD performed on 03/03/2023 showed normal upper third of the esophagus with grade a esophagitis, small hiatal hernia, erosive gastropathy with no stigmata of bleeding that was biopsies and 3 oozing duodenal ulcers with pigmented material that were injected and treated with heater probe. Patient was however discharged on Eliquis which has since been discontinued 2. Diffuse colitis ? Patient tested positive for C. difficile PCR but negative for the toxin during his previous admission. Was discharged on Entocort as well as vancomycin 3. Hypertension - Blood pressure controlled, home medications continued with dose adjustment as needed 4. Paroxysmal A-fib ? Patient is on amiodarone as well as carvedilol patient was on systemic anticoagulation with Eliquis discontinued given his recurrent GI bleed 5. End-stage renal disease on hemodialysis ? Nephrology consulted for dialysis orders 6. Anemia - Secondary to chronic disorder monitoring H&H and transfuse if patient becomes symptomatic or hemoglobin falls below 7 7. DVT prophylaxis ? Bilateral SCDs chemoprophylaxis contraindicated given patient presentation Time spent in the patient's overall evaluation,decision-making process, review of diagnostic data, adjustment of management, discussion with other providers, nursing nursing and ancillary staff involved in patient's care documentation, 50 Minutes Charges/Coding Visit Charges Inpatient E&M: 86752 [facility] L3
--- NOTE | 2023-03-22 09:36 | PCM.CONS.R ---
Assessment & Plan Assessment/Plan (1) ESRD (end stage renal disease) on dialysis: PLAN: Dialysis TTS, AVF right upper arm with bruit, thrill (2) GIB (gastrointestinal bleeding): QUALIFIERS: GI bleed type/associated pathology: duodenal ulcer Qualified Code(s): K26.4 - Chronic or unspecified duodenal ulcer with hemorrhage PLAN: s/p prbc, GI on consult (3) Atrial fibrillation: QUALIFIERS: Atrial fibrillation type: unspecified chronic Qualified Code(s): I48.20 - Chronic atrial fibrillation, unspecified PLAN: chronic (4) Clostridium difficile infection: PLAN: leukocytosis HPI Consult Data Date of Consult: 03/22/23 HPI Narrative Reason for Consultation: ESRD HD TTS HPI Narrative: RIA MARIANO, is a 77 M with ESRD on HD TTS dialysis today. He presents with fatigue, GI bleed with melena. Hgb 6.9g on admit received prbc with hgb 8.7g today. Hgb 8.6 at [facility] on 03/15/23 with continue melena since last hospitalization. Cdiff positive with elevated WBC. Mild LLQ abdominal tenderness. GI consulted. [facility] Medical History Abnormal finding on ultrasound Acute kidney injury Anemia Aortic root dilatation Atrial fibrillation Bladder cancer Bladder cancer CHF (congestive heart failure) CKD (chronic kidney disease) stage 5, GFR less than 15 ml/min Duodenal ulcer Elevated troponin Elevated troponin ESRD (end stage renal disease) ESRD (end stage renal disease) on dialysis ESRD (end stage renal disease) on dialysis Essential hypertension Hepatic cyst History of DVT (deep vein thrombosis) History of pulmonary embolism History of solitary pulmonary nodule HIT (heparin-induced thrombocytopenia) HLD (hyperlipidemia) Hyperparathyroidism Iron deficiency anemia Iron deficiency anemia Left upper chest discomfort Lower gastrointestinal bleeding Lymphoma Lymphoma Neutropenic fever Pancytopenia Paroxysmal A-fib Preop cardiovascular exam Pulmonary embolism Renal calculus Shortness of breath VTE (venous thromboembolism) Wide-complex tachycardia Home Medications carvedilol 6.25 mg tablet 3.125 mg PO BID blood pressure 04/24/17 [History Last Taken 02/28/23 11:00 3.125 mg] vitamin B complex 1 tab PO DAILY SUPPLEMENT 07/02/20 [History Last Taken 02/28/23 11:00] vitamin B complex and vitamin C no.20-folic acid 1 mg capsule (Virt-Caps) 1 cap PO DAILY vitamin #0 caps 02/23/22 [Rx Last Taken 02/28/23 11:00] ascorbic acid (vitamin C) 500 mg tablet 500 mg PO DAILY supplement 03/12/22 [History Last Taken 02/28/23] apixaban 2.5 mg tablet (Eliquis) 2.5 mg PO BID blood thinner #0 tabs 03/30/22 [Rx Last Taken 02/28/23 11:00 2.5 mg] calcitriol 0.25 mcg capsule 0.25 mcg PO DAILY supplement 07/30/22 [History Last Taken 02/28/23] sucroferric oxyhydroxide 500 mg chewable tablet (Velphoro) 500 mg PO .with meals 03/01/23 [History Last Taken Unknown] amiodarone 200 mg tablet 200 mg PO DAILY #35 tabs 03/05/23 [Rx Last Taken Unknown] budesonide 3 mg capsule,delayed,extended release 9 mg (3 x 3 mg) PO DAILY #90 ea 03/05/23 [Rx Last Taken Unknown] pantoprazole 40 mg tablet,delayed release 40 mg PO BID #60 tabs 03/05/23 [Rx Last Taken Unknown] sucralfate 1 gram tablet 1 g PO 1HR_ACHS #120 tabs 03/05/23 [Rx Last Taken Unknown] vancomycin 125 mg capsule 125 mg PO Q6H #48 caps 03/05/23 [Rx Last Taken Unknown] Allergy/AdvReac Type Severity Reaction Status Date / Time enoxaparin [From Lovenox] Allergy Other Verified 02/28/23 17:05 heparin Allergy Other Verified 02/28/23 17:05 aspirin AdvReac Other Verified 02/28/23 17:05 Iodinated Contrast Media AdvReac OTHER Verified 02/28/23 17:05 [CONTRASTS] Family History Father Cancer lung Arrhythmia Brother Cancer Surgical History AV fistula H/O total cystectomy History of cataract extraction History of corrected cleft lip and palate History of tonsillectomy Social History household members: none Smoking Status: Former smoker how long ago did patient quit smokin alcohol intake: never substance use type: does not use caffeine: No ROS Constitutional Constitutional: Reports weakness; Denies chills, fever(s) or malaise Eyes Eyes: Denies loss of vision ENT HEENT: Denies loss taste/smell Cardiovascular Cardiovascular: Denies chest pain or leg edema Respiratory/Chest Respiratory/Chest: Denies dyspnea on exertion Gastrointestinal Gastrointestinal: Reports abdominal pain, diarrhea and melena; Denies anorexia, hematemesis, hematochezia or nausea Genitourinary Genitourinary: Reports oliguria Psychiatric Psychiatric: Denies confusion or depression Hematologic/Lymphatic Hematologic/Lymphatic: Reports anemia Physical Exam Const alert and oriented x3 Resp clear to auscultation bilaterally Cardio Rhythm: abnormal rhythm irregularly irregular GI non-tender and non-distended Auscultation: normoactive bowel sounds Palpation: soft Extremity no clubbing, cyanosis or edema General Extremity: AV fistula Neuro CN's II-XII intact bilaterally Psych cooperative Lab / Micro Data 03/22/23 05:05 03/22/23 05:05 Labs: Laboratory Results - last 24 hr 03/21/23 19:22: WBC 17.8 H, RBC 2.00 L, Hgb 6.9 L, Hct 22.2 L, MCV 111.0 H, MCH 34.5 H, MCHC 31.1 L, RDW Std Deviation 77.7 H, RDW Coeff of Lencho 19.5 H, Plt Count 101 L, MPV 10.7, Immature Gran % (Auto) 1.200 H, Neut % (Auto) 93.7 H, Lymph % (Auto) 1.5 L, [place] % (Auto) 3.5, Eos % (Auto) 0.0, Baso % (Auto) 0.1, Absolute Neuts (auto) 16.7 H, Absolute Lymphs (auto) 0.26 L, Nucleated RBC % 0, Differential Comment SCANNED, Hypochromasia 1+, Anisocytosis 2+, Microcytosis 1+, Macrocytosis 1+, PT 24.5 H, INR 2.2, APTT 56.7 H, Sodium 139, Potassium 3.5, Chloride 101, Carbon Dioxide 27.0, Anion Gap 11, BUN 85 H, Creatinine 7.33 H, Estim Creat Clear Calc 8.57, Est GFR (MDRD) Af Amer 9 L, Est GFR (MDRD) Non-Af 8 L, BUN/Creatinine Ratio 11.6, Glucose 249 H, Calcium 8.1 L, Troponin I High Sens 274 H*, Blood Type O POSITIVE, Antibody Screen NEGATIVE, Crossmatch See Detail 03/22/23 05:05: WBC 15.8 H, RBC 2.61 L, Hgb 8.7 L, Hct 27.1 L, MCV 103.8 H D, MCH 33.3 H, MCHC 32.1, RDW Std Deviation 71.7 H, RDW Coeff of Lencho 19.4 H, Plt Count 102 L, MPV 10.5, Immature Gran % (Auto) 1.400 H, Neut % (Auto) 92.0 H, Lymph % (Auto) 2.0 L, [place] % (Auto) 4.5, Eos % (Auto) 0.0, Baso % (Auto) 0.1, Absolute Neuts (auto) 14.5 H, Absolute Lymphs (auto) 0.31 L, Nucleated RBC % 0, Anisocytosis 2+, Macrocytosis 2+, Sodium 140, Potassium 3.7, Chloride 104, Carbon Dioxide 26.0, Anion Gap 10, BUN 89 H, Creatinine 7.86 H*, Estim Creat Clear Calc 8.00, Est GFR (MDRD) Af Amer 9 L, Est GFR (MDRD) Non-Af 7 L, BUN/Creatinine Ratio 11.3, Glucose 177 H, Calcium 8.3 L
--- NOTE | 2023-03-22 15:00 | CASEMGMT ---
KRUPA GOMES readmission note: Index admission: Admitted 03/03/23 w/GIB. GI consulted and endocscopy was done and pt diagnosed w/ulcers in the duodenum. Pt w/Hx of ESRD and gets OP HD @ [facility] TTS, chair time 11:20 AM. Discharged home Sat, 03/05, in time to go to OP HD @ [facility] for 11 AM arrival time. Pt discharged home on several new medications and scripts were sent to [facility]. Pt also to f/u with PCP in 2 wks, Dr Garay in 2-3 months, and had appt scheduled w/Dr Brewer on 04/04. Current admission: Admitted 03/21 w/GIB. Hgb on admission was 6.9. Pt started on IV protonix and GI/Dr Garay consulted. KRUPA GOMES to room: Pt resting in bed, receiving HD. Introduced self and role. Pt agreeable to talking w/KRUPA GOMES. Pt states he did make it to OP HD on day of discharge last admission. His son picked up all of his new medications @ [facility] and he states he is taking them as prescribed and he denies having any questions about them. He states he has an upcoming appt w/Dr Nunez, he thinks it is on Apr 01, but he is not certain and states he will check on My-Chart to verify. He did schedule an appt w/Dr Jarrod NAZARIO, but was unable to get appt until August 26, 2023. He is aware of upcoming appt w/Dr Brewer 04/04 and this was included in d/c plan. He states he does have O2 @ home but he does not wear it. He reports his son will be the one taking him home @ discharge and can bring in his POC, if needed, for him to go home on. He would like any new Rx's to be sent to [facility]. His chaire time @ [facility] for OP HD remains TTS @ 11:20. Pt states he wishes to discharge home and denies having any needs or concerns @ discharge. Noted 6-clicks is 14. No therapy ordered at this time, as Hgb has been low. CM to follow for possible need of PT/OT evals before discharge. Plan: Home Jovita NAIR RN, CM
[2023-03-22] MEDS: PureFlow B 3K Dialysis Soln 1 BAG 6 BAG PF (16:42)
[2023-03-22] MEDS: 0.9% Normal Saline 1,000 ML IV.SOLN. 1000 ML OPERA.SITE (16:42)
--- NOTE | 2023-03-22 17:48 | OP.EGD_ITS ---
Patient Name: Espinoza Rizvi Procedure Date: 03/22/2023 5:25 PM Date of : 1945 Age: 77 Procedure: Upper GI endoscopy Indications: Epigastric abdominal pain, Iron deficiency anemia, Functional Dyspepsia Providers: Wolfgang Garay DO Medicines: Monitored Anesthesia Care Patient Profile: This is a 77 year old male. Refer to note in patient chart for documentation of history and physical. Patient has symptoms. Complications: No immediate complications. Procedure: Pre-Anesthesia Assessment: - Prior to the procedure, a History and Physical was performed, and patient medications and allergies were reviewed. The patient is competent. The risks and benefits of the procedure and the sedation options and risks were discussed with the patient. All questions were answered and informed consent was obtained. Patient identification and proposed procedure were verified by the physician in the pre-procedure area. Mental Status Examination: alert and oriented. Airway Examination: normal oropharyngeal airway and neck mobility. Respiratory Examination: clear to auscultation. CV Examination: normal. Prophylactic Antibiotics: The patient does not require prophylactic antibiotics. Prior Anticoagulants: The patient has taken no anticoagulant or antiplatelet agents. ASA Grade Assessment: III - A patient with severe systemic disease. After reviewing the risks and benefits, the patient was deemed in satisfactory condition to undergo the procedure. The anesthesia plan was to use monitored anesthesia care (MAC). Immediately prior to administration of medications, the patient was re-assessed for adequacy to receive sedatives. The heart rate, respiratory rate, oxygen saturations, blood pressure, adequacy of pulmonary ventilation, and response to care were monitored throughout the procedure. The physical status of the patient was re-assessed after the procedure. After obtaining informed consent, the endoscope was passed under direct vision. Throughout the procedure, the patient's blood pressure, pulse, and oxygen saturations were monitored continuously. The Endoscope was introduced through the mouth, and advanced to the second part of duodenum. The upper GI endoscopy was accomplished without difficulty. The patient tolerated the procedure well. Scope In: 5:34:11 PM Scope Out: 5:39:21 PM Total Procedure Duration Time 0 hours 5 minutes 10 seconds Findings: LA Grade B (one or more mucosal breaks greater than 5 mm, not extending between the tops of two mucosal folds) esophagitis with no bleeding was found 36 to 38 cm from the incisors. Patchy mildly erythematous mucosa without bleeding was found in the gastric body. Three non-bleeding linear duodenal ulcers with pigmented material were found in the duodenal bulb. The largest lesion was 7 mm in largest dimension. Coagulation for hemostasis using heater probe was successful. Estimated blood loss was minimal. Impression: - LA Grade B reflux esophagitis with no bleeding. - Erythematous mucosa in the gastric body. - Non-bleeding duodenal ulcers with pigmented material. Treated with a heater probe. - No specimens collected. Recommendation: - [facility]. - Resume previous diet. - Continue present medications. Procedure Code(s): --- Professional --- 48189, Esophagogastroduodenoscopy, flexible, transoral; with control of bleeding, any method CPT copyright 2021 [employer]. All rights reserved. The codes documented in this report are preliminary and upon medical billing coder review may be revised to meet current compliance requirements. Wolfgang Garay DO 03/22/2023 5:48:23 PM This report has been signed electronically. Number of Addenda: 0 Note Initiated On: 03/22/2023 5:25 PM
--- NOTE | 2023-03-22 17:48 | OP.CCLET_ITS ---
03/22/2023 Martin Nunez [address] [place] [address] Re : Upper GI endoscopy procedure for Espinoza Rizvi Dear Dr. Nunez This procedure was performed on Wednesday, March 22, 2023. My impressions and recommendations are as follows: Impressions : - LA Grade B reflux esophagitis with no bleeding. - Erythematous mucosa in the gastric body. - Non-bleeding duodenal ulcers with pigmented material. Treated with a heater probe. - No specimens collected. Recommendations : - [facility]. - Resume previous diet. - Continue present medications. My findings are described in the full procedure note, which is enclosed. If I can be of further assistance, please feel free to contact me at . Sincerely, Wolfgang Friend, 03/22/2023 5:48:23 PM This report has been signed electronically.
[2023-03-22] MEDS: Sucralfate 1 GM Tablet PO (21:49)
[2023-03-22] MEDS: Pantoprazole Sodium 40 MG Tablet PO (21:49)
[2023-03-23] VITALS (9 sets, daily range): BP systolic 95–106; BP diastolic 50–64; PULSE 55–85; RESP 15–18; TEMP 35.9–36.9; O2SAT 93–97; BMI 32.1
--- NOTE | 2023-03-23 00:58 | NURSING ---
This nurse resuming care of this patient at this time.
[2023-03-23] MEDS: Sucralfate 1 GM Tablet PO ×4 (06:16→21:07)
[2023-03-23 06:22] LABS: Absolute Lymphocyte Count 0.38 X10^3/uL (0.83-4.51); Absolute Neutrophil Count 7.5 X10^3/uL (2.0-7.7); Eosinophil# 0.11 X10^3/uL; Eosinophils% 1.3 % (0-5); Hemoglobin 8.3 g/dL (13.0-16.5); Lymphocyte # 0.38 X10^3/ul (0.83-4.51); Lymphocyte % 4.5 % (19-41); Mean Corp Hgb Conc 31.9 g/dL (32-36); Mean Corpuscular Hgb 33.1 pg (27.0-32.0); Mean Corpuscular Volume 103.6 fL (80-94); Mean Platelet Vol. 10.6 fl (6.2-12.0); Monocyte# 0.47 X10^3/uL; Monocyte% 5.5 % (0-10); NRBC Flagged by Analyzer 0 % (0-5); Neutrophil # 7.47 X10^3/uL (2.7-7.7); Neutrophil % 87.9 % (47-70); POSITIVE DIFFERENTIAL YES; POSITIVE MORPHOLOGY YES; Platelet Count 103 K/mm3 (150-450); RBC Distribution Width CV 19.1 % (11.6-14.6); RBC Distribution Width SD 71.7 fl (35.1-43.9); Red Blood Count 2.51 M/mm3 (4.6-6.2); White Blood Count 8.5 K/mm3 (4.4-11.0)
[2023-03-23 06:25] LABS: Differential Indicated SCAN CRITERIA MET
[2023-03-23 06:53] LABS: Anisocytosis 2+; Macrocytosis 1+; Platelet Estimate SLT DEC (ADEQ)
[2023-03-23 07:02] LABS: Anion Gap 6 (5-15); BUN 78 mg/dL (7-18); BUN/Creat Ratio 12.1 RATIO (10-20); Calcium,Total 8.2 mg/dL (8.5-10.1); Chloride 104 mmol/L (98-107); Creatinine, Serum 6.42 mg/dL (0.70-1.30); EST Glomerular Filtration Rate 9 mL/min (>60); Est Glom Filt Rate - Afr Amer 11 mL/min (>60); Estimated Creatinine Clearance 9.79 ml/min; Glucose 101 mg/dL (74-106); Magnesium 2.4 mg/dL (1.6-2.6); Phosphorus 4.6 mg/dL (2.5-4.9); Potassium 3.8 mmol/L (3.5-5.1); Sodium Level 138 mmol/L (136-145)
--- NOTE | 2023-03-23 08:07 | PCM.PN.HOSP ---
Reason for Visit Reason for Visit: Diagnoses Other bacterial infections of unspecified site (03/21/23) Acute posthemorrhagic anemia (03/21/23) Anemia, unspecified (03/21/23) Hypokalemia (03/21/23) Heart failure, unspecified (03/21/23) Chronic or unspecified duodenal ulcer with hemorrhage (03/21/23) Duodenal ulcer, unspecified as acute or chronic, without hemorrhage or perforation (03/21/23) Ulcerative (chronic) pancolitis without complications (03/21/23) Melena (03/21/23) Gastrointestinal hemorrhage, unspecified (03/21/23) End stage renal disease (03/21/23) Tachycardia, unspecified (03/21/23) Other specified abnormalities of plasma proteins (03/21/23) Dependence on renal dialysis (03/21/23) Subjective Subjective Patient underwent EGD today prior findings are as below. - LA Grade B reflux esophagitis with no bleeding. - Erythematous mucosa in the gastric body. - Non-bleeding duodenal ulcers with pigmented material. Treated with a heater probe. - No specimens collected. ? Patient seen complains of feeling lightheaded and weak. Requested for PT OT Objective Data Objective Data Vital Signs: Vital Signs Temp Pulse Resp BP Pulse Ox O2 Del Method O2 Flow Rate 98.4 F 83 18 104/64 93 Room Air 2 03/23/23 04:48 03/23/23 04:48 03/23/23 04:48 03/23/23 04:48 03/23/23 04:48 03/23/23 04:48 03/22/23 07:25 Oxygen Flow Rate (L/min) 2 Oxygen Delivery Method Room Air Weight: 98.5 kg Body Mass Index (BMI) 32.1 Intake & Output: Intake and Output for Last 24 Hours 03/21/23 03/22/23 03/23/23 23:59 23:59 23:59 Intake Total 535 / 535 800 / 800 Output Total 0 / 0 0 / 0 Balance 535 / 535 800 / 800 0 / 0 Lab / Micro Data 03/23/23 05:19 03/23/23 05:19 Labs: Laboratory Results - last 24 hr 03/23/23 05:19: WBC 8.5, RBC 2.51 L, Hgb 8.3 L, Hct 26.0 L, MCV 103.6 H, MCH 33.1 H, MCHC 31.9 L, RDW Std Deviation 71.7 H, RDW Coeff of Lencho 19.1 H, Plt Count 103 L, MPV 10.6, Immature Gran % (Auto) 0.800, Neut % (Auto) 87.9 H, Lymph % (Auto) 4.5 L, [place] % (Auto) 5.5, Eos % (Auto) 1.3, Baso % (Auto) 0.0, Absolute Neuts (auto) 7.5, Absolute Lymphs (auto) 0.38 L, Nucleated RBC % 0, Platelet Estimate SLT DEC, Anisocytosis 2+, Macrocytosis 1+, Sodium 138, Potassium 3.8, Chloride 104, Carbon Dioxide 28.0, Anion Gap 6, BUN 78 H, Creatinine 6.42 H, Estim Creat Clear Calc 9.79, Est GFR (MDRD) Af Amer 11 L, Est GFR (MDRD) Non-Af 9 L, BUN/Creatinine Ratio 12.1, Glucose 101, Calcium 8.2 L, Phosphorus 4.6, Magnesium 2.4 Physical Exam Narrative GENERAL: cooperative HEENT: Atraumatic; normocephalic EYES; Anicteric, Normal Conjunctiva NECK; supple, normal thyroid, RESPIRATORY: Diminished to auscultation CARDIOVASCULAR: Regular S1 S2, GI: soft, normoactive bowel sounds, : No Renal angle tenderness; EXTREMITIES: No edema, no clubbing, MUSCULOSKELETAL: no muscle wasting NEURO: Awake; no lateralizing signs. SKIN: No Rash PSYCH; Flat affect Assessment & Plan Assessment/Plan (1) GIB (gastrointestinal bleeding): QUALIFIERS: GI bleed type/associated pathology: duodenal ulcer Qualified Code(s): K26.4 - Chronic or unspecified duodenal ulcer with hemorrhage PLAN: Plan Patient is a 77-year-old gentleman who presented with black tarry stools. Patient had apparently been diagnosed with duodenal ulcers based on an EGD performed on 03/03/2023. Patient was also found to have colitis and tested positive for C. difficile with PCR toxin was however negative. Discharged on vancomycin as well as Entocort 1. Acute GI bleed ? EGD performed on 03/03/2023 showed normal upper third of the esophagus with grade a esophagitis, small hiatal hernia, erosive gastropathy with no stigmata of bleeding that was biopsies and 3 oozing duodenal ulcers with pigmented material that were injected and treated with heater probe. Patient was however discharged on Eliquis which has since been discontinued - LA Grade B reflux esophagitis with no bleeding. - Erythematous mucosa in the gastric body. - Non-bleeding duodenal ulcers with pigmented material. Treated with a heater probe. - No specimens collected. ? Patient on PPI 2. Diffuse colitis ? Patient tested positive for C. difficile PCR but negative for the toxin during his previous admission. Was discharged on Entocort as well as vancomycin 3. Hypertension - Blood pressure controlled, home medications continued with dose adjustment as needed 4. Paroxysmal A-fib ? Patient is on amiodarone as well as carvedilol patient was on systemic anticoagulation with Eliquis discontinued given his recurrent GI bleed 5. End-stage renal disease on hemodialysis ? Nephrology consulted for dialysis orders 6. Anemia - Secondary to chronic disorder monitoring H&H and transfuse if patient becomes symptomatic or hemoglobin falls below 7 7. DVT prophylaxis ? Bilateral SCDs chemoprophylaxis contraindicated given patient presentation 8. Physical deconditioning - Requested for PT OT eval and social worker masters to assist with discharge planning Time spent in the patient's overall evaluation,decision-making process, review of diagnostic data, adjustment of management, discussion with other providers, nursing nursing and ancillary staff involved in patient's care documentation, 40 Minutes Charges/Coding Visit Charges Inpatient E&M: 96277 Subs Hosp L2
[2023-03-23] MEDS: Calcitriol 0.25 MCG Capsule PO (09:49)
[2023-03-23] MEDS: Budesonide 3 MG CAPSULE.EC 9 MG PO (09:49)
[2023-03-23] MEDS: Amiodarone 200 MG Tablet PO (09:49)
[2023-03-23] MEDS: Pantoprazole Sodium 40 MG Tablet PO ×2 (09:49→21:07)
--- NOTE | 2023-03-23 12:26 | EX.PCM.PN.GI ---
Subjective Subjective Patient underwent repeat upper endoscopy yesterday and was discovered to have recurring bleeding secondary to medications. In particular his blood thinners. Bleeding was stopped endoscopically. Objective Data Objective Data Vital Signs: Vital Signs Temp Pulse Resp BP Pulse Ox O2 Del Method O2 Flow Rate 96.7 F L 81 15 96/51 L 97 Room Air 2 03/23/23 09:40 03/23/23 09:40 03/23/23 09:40 03/23/23 09:40 03/23/23 09:40 03/23/23 09:45 03/22/23 07:25 Oxygen Flow Rate (L/min) 2 Oxygen Delivery Method Room Air Weight: 217 lb 2.485 oz Body Mass Index (BMI) 32.1 Intake & Output: Intake and Output for Last 24 Hours 03/21/23 03/22/23 03/23/23 23:59 23:59 23:59 Intake Total 535 / 535 800 / 800 Output Total 0 / 0 0 / 0 Balance 535 / 535 800 / 800 0 / 0 Lab / Micro Data 03/23/23 05:19 03/23/23 05:19 Labs: Laboratory Results - last 24 hr 03/23/23 05:19: WBC 8.5, RBC 2.51 L, Hgb 8.3 L, Hct 26.0 L, MCV 103.6 H, MCH 33.1 H, MCHC 31.9 L, RDW Std Deviation 71.7 H, RDW Coeff of Lencho 19.1 H, Plt Count 103 L, MPV 10.6, Immature Gran % (Auto) 0.800, Neut % (Auto) 87.9 H, Lymph % (Auto) 4.5 L, [place] % (Auto) 5.5, Eos % (Auto) 1.3, Baso % (Auto) 0.0, Absolute Neuts (auto) 7.5, Absolute Lymphs (auto) 0.38 L, Nucleated RBC % 0, Platelet Estimate SLT DEC, Anisocytosis 2+, Macrocytosis 1+, Sodium 138, Potassium 3.8, Chloride 104, Carbon Dioxide 28.0, Anion Gap 6, BUN 78 H, Creatinine 6.42 H, Estim Creat Clear Calc 9.79, Est GFR (MDRD) Af Amer 11 L, Est GFR (MDRD) Non-Af 9 L, BUN/Creatinine Ratio 12.1, Glucose 101, Calcium 8.2 L, Phosphorus 4.6, Magnesium 2.4 Physical Exam Narrative GENERAL: cooperative HEENT: Atraumatic; normocephalic EYES; Anicteric, Normal Conjunctiva NECK; supple, normal thyroid, RESPIRATORY: Diminished to auscultation CARDIOVASCULAR: Regular S1 S2, GI: soft, normoactive bowel sounds, : No Renal angle tenderness; EXTREMITIES: No edema, no clubbing, MUSCULOSKELETAL: no muscle wasting NEURO: Awake; no lateralizing signs. SKIN: No Rash PSYCH; Flat affect Assessment & Plan Assessment/Plan (1) Acute blood loss anemia (ABLA): (2) Acute GI bleeding: (3) Hematochezia: (4) Acute on chronic anemia: (5) Elevated troponin: (6) Hypokalemia: (7) Pancolitis: (8) Clostridium difficile infection: (9) Duodenal ulcer: (10) Wide-complex tachycardia: PLAN: Plan GI bleed secondary to duodenal ulcers x3 -EGD performed on 03/03/2023 showed normal upper third of the esophagus with grade a esophagitis, small hiatal hernia, erosive gastropathy with no stigmata of bleeding that was biopsies and 3 oozing duodenal ulcers with pigmented material that were injected and treated with heater probe -EGD yesterday also displayed bleeding in the duodenum secondary to anticoagulation causing ulceration in the duodenum status post endoscopic treatment. -Continue Protonix 40 mg p.o. twice daily for 8 weeks and then transition to daily -Continue Carafate 1 g 4 times daily -We will be performing a repeat upper endoscopy to evaluate his upper GI tract to see if the restarting of his Eliquis because recurrent GI bleeding. Acute on chronic anemia with chronic anemia secondary to chronic renal disease -Chronic anemia due to end-stage renal disease on HD -Transfuse for hemoglobin less than 7 -Hemoglobin is 8.0 today -Continue home iron supplementation -Procrit per nephrology -He also has intermittent thrombocytopenia that I am not sure it is secondary to underlying mild dysplastic syndrome in the setting of increased MCV or reticulocytosis. He should see hematology as an outpatient. Charges/Coding Visit Charges Inpatient E&M: 77210 Subs Hosp L3
--- NOTE | 2023-03-23 15:20 | CASEMGMT ---
KRUPA GOMES NOTE: RN CM to room. Pt resting in bed. Discussed discharge planning. Pt states he is still having some dizziness today and has been sl unsteady when ambulating. Dr Story is aware and pt is not ready for discharge. Pt states he does not wish to go to a SNF, and wishes to discharge home once dizziness resolves and feels like he will be safe @ home. He would like [facility]. A list of C providers including quality and resource use data and consistent with the patient?s preferred geographic region, medical needs, and insurance network were provided from the [employer] Guide. Pt chooses [facility] as his 1st choice. Order entered for [facility]: SN and PT/OT. Call to Jammie @ [facility] and referal made. Awaiting response. Pt states he does have a rollator @ home and denies having other discharge planning needs or concerns at this time. Jovita NAIR RN CM
[2023-03-24] VITALS (15 sets, daily range): BP systolic 102–242; BP diastolic 50–76; PULSE 70–96; RESP 13–18; TEMP 36.5–36.7; O2SAT 94–100; BMI 32.3; BMI 32.0
[2023-03-24 04:54] LABS: Absolute Lymphocyte Count 0.39 X10^3/uL (0.83-4.51); Absolute Neutrophil Count 5.8 X10^3/uL (2.0-7.7); Basophil# 0.01 X10^3/uL; Basophil% 0.1 % (0-1); Eosinophil# 0.17 X10^3/uL; Eosinophils% 2.5 % (0-5); Hematocrit 25.9 % (40-54); Hemoglobin 8.1 g/dL (13.0-16.5); Lymphocyte # 0.39 X10^3/ul (0.83-4.51); Lymphocyte % 5.7 % (19-41); Mean Corp Hgb Conc 31.3 g/dL (32-36); Mean Corpuscular Hgb 32.7 pg (27.0-32.0); Mean Corpuscular Volume 104.4 fL (80-94); Monocyte# 0.49 X10^3/uL; Monocyte% 7.1 % (0-10); NRBC Flagged by Analyzer 0 % (0-5); Neutrophil # 5.78 X10^3/uL (2.7-7.7); Neutrophil % 84.3 % (47-70); POSITIVE DIFFERENTIAL YES; POSITIVE MORPHOLOGY YES; Platelet Count 118 K/mm3 (150-450); RBC Distribution Width CV 18.1 % (11.6-14.6); RBC Distribution Width SD 67.7 fl (35.1-43.9); Red Blood Count 2.48 M/mm3 (4.6-6.2); White Blood Count 6.9 K/mm3 (4.4-11.0)
[2023-03-24] MEDS: Acetaminophen 325 MG Tablet 650 MG PO (05:02)
[2023-03-24 05:23] LABS: Differential Indicated SCAN CRITERIA MET
[2023-03-24 05:24] LABS: Anisocytosis 1+; Macrocytosis 1+; Platelet Estimate SLT DEC (ADEQ)
[2023-03-24 05:28] LABS: Anion Gap 10 (5-15); BUN 95 mg/dL (7-18); BUN/Creat Ratio 12.1 RATIO (10-20); Calcium,Total 7.9 mg/dL (8.5-10.1); Chloride 102 mmol/L (98-107); Creatinine, Serum 7.86 mg/dL (0.70-1.30); EST Glomerular Filtration Rate 7 mL/min (>60); Est Glom Filt Rate - Afr Amer 9 mL/min (>60); Glucose 138 mg/dL (74-106); Potassium 4.3 mmol/L (3.5-5.1); Sodium Level 136 mmol/L (136-145)
[2023-03-24] MEDS: Amiodarone 200 MG Tablet PO (09:05)
[2023-03-24] MEDS: Pantoprazole Sodium 40 MG Tablet PO ×2 (09:05→22:27)
[2023-03-24] MEDS: Sucralfate 1 GM Tablet PO ×3 (09:05→22:27)
[2023-03-24] MEDS: Calcitriol 0.25 MCG Capsule PO (09:05)
[2023-03-24] MEDS: Budesonide 3 MG CAPSULE.EC 9 MG PO (09:06)
--- NOTE | 2023-03-24 10:11 | CASEMGMT ---
Addendum entered by Nelly Horn 03/24/23 11:15: Per Jammie @ [facility], [facility] is now slated for Tuesday. Pt made aware. Original Note: KRUPA GOMES NOTE: Pt not medically ready for discharge today, per Dr Story d/t BP's still low. Calll to [facility]. VM left to notify them of same. Jovita NAIR RN CM
--- NOTE | 2023-03-24 11:13 | PN.HOSP_ITS ---
Reason for Visit Reason for Visit: Diagnoses Other bacterial infections of unspecified site (03/21/23) Acute posthemorrhagic anemia (03/21/23) Anemia, unspecified (03/21/23) Hypokalemia (03/21/23) Chronic atrial fibrillation, unspecified (03/21/23) Heart failure, unspecified (03/21/23) Chronic or unspecified duodenal ulcer with hemorrhage (03/21/23) Duodenal ulcer, unspecified as acute or chronic, without hemorrhage or p erforation (03/21/23) Ulcerative (chronic) pancolitis without complications (03/21/23) Melena (03/21/23) Gastrointestinal hemorrhage, unspecified (03/21/23) End stage renal disease (03/21/23) Tachycardia, unspecified (03/21/23) Other specified abnormalities of plasma proteins (03/21/23) Dependence on renal dialysis (03/21/23) Subjective Subjective Patient seen blood pressure continues to be low. Patient also complains of feeling lightheaded. Hemoglobin low at 8.0 Objective Data Objective Data Vital Signs: Vital Signs Temp Pulse Resp BP Pulse Ox O2 Del Method O2 Flow Rate 98.0 F 95 16 106/66 96 Room Air 2 03/24/23 08:58 03/24/23 08:58 03/24/23 08:58 03/24/23 08:58 03/24/23 08:58 03/24/23 08:58 03/22/23 07:25 Oxygen Flow Rate (L/min) 2 Oxygen Delivery Method Room Air Weight: 99.2 kg Body Mass Index (BMI) 32.3 Intake & Output: Intake and Output for Last 24 Hours 03/22/23 03/23/23 03/24/23 23:59 23:59 23:59 Intake Total 800 / 800 780 / 780 Output Total 0 / 0 0 / 0 1 / 1 Balance 800 / 800 780 / 780 -1 / -1 Lab / Micro Data 03/24/23 04:32 03/24/23 04:32 Labs: Laboratory Results - last 24 hr 03/24/23 04:32: WBC 6.9, RBC 2.48 L, Hgb 8.1 L, Hct 25.9 L, MCV 104.4 H, MCH 32.7 H, MCHC 31.3 L, RDW Std Deviation 67.7 H, RDW Coeff of Lencho 18.1 H, Plt Count 118 L, MPV 10.0, Immature Gran % (Auto) 0.300, Neut % (Auto) 84.3 H, Lymph % (Auto) 5.7 L, [place] % (Auto) 7.1, Eos % (Auto) 2.5, Baso % (Auto) 0.1, Absolute Neuts (auto) 5.8, Absolute Lymphs (auto) 0.39 L, Nucleated RBC % 0, Platelet Estimate SLT DEC, Anisocytosis 1+, Macrocytosis 1+, Sodium 136, Potassium 4.3, Chloride 102, Carbon Dioxide 24.0, Anion Gap 10, BUN 95 H, Creatinine 7.86 H*, Estim Creat Clear Calc 8.00, Est GFR (MDRD) Af Amer 9 L, Est GFR (MDRD) Non-Af 7 L, BUN/Creatinine Ratio 12.1, Glucose 138 H, Calcium 7.9 L Physical Exam Narrative GENERAL: cooperative HEENT: Atraumatic; normocephalic EYES; Anicteric, Normal Conjunctiva NECK; supple, normal thyroid, RESPIRATORY: Diminished to auscultation CARDIOVASCULAR: Regular S1 S2, GI: soft, normoactive bowel sounds, : No Renal angle tenderness; EXTREMITIES: No edema, no clubbing, MUSCULOSKELETAL: no muscle wasting NEURO: Awake; no lateralizing signs. SKIN: No Rash PSYCH; Flat affect Assessment & Plan Assessment/Plan (1) GIB (gastrointestinal bleeding): QUALIFIERS: GI bleed type/associated pathology: duodenal ulcer Qualified Code(s): K26.4 - Chronic or unspecified duodenal ulcer with hemorrhage PLAN: Plan Patient is a 77-year-old gentleman who presented with black tarry stools. Patient had apparently been diagnosed with duodenal ulcers based on an EGD performed on 03/03/2023. Patient was also found to have colitis and tested positive for C. difficile with PCR toxin was however negative. Discharged on vancomycin as well as Entocort 1. Acute GI bleed ? EGD performed on 03/03/2023 showed normal upper third of the esophagus with grade a esophagitis, small hiatal hernia, erosive gastropathy with no stigmata of bleeding that was biopsies and 3 oozing duodenal ulcers with pigmented material that were injected and treated with heater probe. Patient was however discharged on Eliquis which has since been discontinued - LA Grade B reflux esophagitis with no bleeding. - Erythematous mucosa in the gastric body. - Non-bleeding duodenal ulcers with pigmented material. Treated with a heater probe. - No specimens collected. ? Patient on PPI ? 03/24/2023 hemoglobin remained stable at 8.0 2. Diffuse colitis ? Patient tested positive for C. difficile PCR but negative for the toxin during his previous admission. Was discharged on Entocort as well as vancomycin 3. Hypertension - Blood pressure controlled, home medications continued with dose adjustment as needed ? 03/24/2023 patient antihypertensives adjusted given his relatively low blood pressure 4. Paroxysmal A-fib ? Patient is on amiodarone as well as carvedilol patient was on systemic anticoagulation with Eliquis discontinued given his recurrent GI bleed 5. End-stage renal disease on hemodialysis ? Nephrology consulted for dialysis orders 6. Anemia - Secondary to acute on chronic blood loss anemia as well as anemia secondary to chronic disorder/ESRD monitoring H&H and transfuse if patient becomes symptomatic or hemoglobin falls below 7 7. DVT prophylaxis ? Bilateral SCDs chemoprophylaxis contraindicated given patient presentation 8. Physical deconditioning - Requested for PT OT eval and social and political studies professor to assist with discharge planning Time spent in the patient's overall evaluation,decision-making process, review of diagnostic data, adjustment of management, discussion with other providers, nursing nursing and ancillary staff involved in patient's care documentation, 35 Minutes Charges/Coding Visit Charges Inpatient E&M: 50293 Subs Hosp L2
[2023-03-24] MEDS: 0.9% Normal Saline 1,000 ML IV.SOLN. 1000 ML OPERA.SITE (11:36)
[2023-03-24] MEDS: PureFlow B 2K Dialysis Soln 1 BAG 6 BAG PF (11:37)
[2023-03-24] MEDS: Epoetin Alfa epbx 10,000 UNITS/ML 10000 UNIT IV (11:46)
--- NOTE | 2023-03-24 13:24 | PCM.PN.REN ---
Subjective Subjective seen on dialysis, proceeding without incident. GI note appreciated Objective Data Objective Data Vital Signs: Vital Signs Temp Pulse Resp BP Pulse Ox O2 Del Method O2 Flow Rate 98.0 F 80 13 122/76 H 100 Nasal Cannula 3.5 03/24/23 08:58 03/24/23 13:00 03/24/23 13:00 03/24/23 13:00 03/24/23 13:00 03/24/23 13:00 03/24/23 13:00 Oxygen Flow Rate (L/min) 3.5 Oxygen Delivery Method Nasal Cannula Weight: 99.2 kg Body Mass Index (BMI) 32.3 Intake & Output: Intake and Output for Last 24 Hours 03/22/23 03/23/23 03/24/23 23:59 23:59 23:59 Intake Total 800 / 800 780 / 780 Output Total 0 / 0 0 / 0 1 / 1 Balance 800 / 800 780 / 780 -1 / -1 Lab / Micro Data 03/24/23 04:32 03/24/23 04:32 Labs: Laboratory Results - last 24 hr 03/24/23 04:32: WBC 6.9, RBC 2.48 L, Hgb 8.1 L, Hct 25.9 L, MCV 104.4 H, MCH 32.7 H, MCHC 31.3 L, RDW Std Deviation 67.7 H, RDW Coeff of Lencho 18.1 H, Plt Count 118 L, MPV 10.0, Immature Gran % (Auto) 0.300, Neut % (Auto) 84.3 H, Lymph % (Auto) 5.7 L, [place] % (Auto) 7.1, Eos % (Auto) 2.5, Baso % (Auto) 0.1, Absolute Neuts (auto) 5.8, Absolute Lymphs (auto) 0.39 L, Nucleated RBC % 0, Platelet Estimate SLT DEC, Anisocytosis 1+, Macrocytosis 1+, Sodium 136, Potassium 4.3, Chloride 102, Carbon Dioxide 24.0, Anion Gap 10, BUN 95 H, Creatinine 7.86 H*, Estim Creat Clear Calc 8.00, Est GFR (MDRD) Af Amer 9 L, Est GFR (MDRD) Non-Af 7 L, BUN/Creatinine Ratio 12.1, Glucose 138 H, Calcium 7.9 L Physical Exam Const alert and oriented x3 Resp clear to auscultation bilaterally Extremity no clubbing, cyanosis or edema Neuro Sensorium / Orientation: awake and alert Assessment & Plan Assessment/Plan (1) ESRD (end stage renal disease) on dialysis: PLAN: Dialysis today without incident. LUCHO on dialysis (2) GIB (gastrointestinal bleeding): QUALIFIERS: GI bleed type/associated pathology: duodenal ulcer Qualified Code(s): K26.4 - Chronic or unspecified duodenal ulcer with hemorrhage PLAN: s/p prbc, GI on consult (3) Atrial fibrillation: QUALIFIERS: Atrial fibrillation type: unspecified chronic Qualified Code(s): I48.20 - Chronic atrial fibrillation, unspecified PLAN: chronic (4) Clostridium difficile infection: PLAN: leukocytosis improved
--- NOTE | 2023-03-24 17:03 | PN.GI_ITS ---
Subjective Subjective Patient underwent an egd yesterday. He has not seen any signs of GI bleeding today. Objective Data Objective Data Vital Signs: Vital Signs Temp Pulse Resp BP Pulse Ox O2 Del Method O2 Flow Rate 98.0 F 76 14 132/50 H 100 Nasal Cannula 3.5 03/24/23 08:58 03/24/23 14:43 03/24/23 14:43 03/24/23 14:43 03/24/23 14:43 03/24/23 14:43 03/24/23 14:43 Oxygen Flow Rate (L/min) 3.5 Oxygen Delivery Method Nasal Cannula Weight: 216 lb 0.848 oz Body Mass Index (BMI) 32.0 Intake & Output: Intake and Output for Last 24 Hours 03/22/23 03/23/23 03/24/23 23:59 23:59 23:59 Intake Total 800 / 800 780 / 780 Output Total 0 / 0 0 / 0 1201 / 1201 Balance 800 / 800 780 / 780 -1201 / -1201 Lab / Micro Data 03/24/23 04:32 03/24/23 04:32 Labs: Laboratory Results - last 24 hr 03/24/23 04:32: WBC 6.9, RBC 2.48 L, Hgb 8.1 L, Hct 25.9 L, MCV 104.4 H, MCH 32.7 H, MCHC 31.3 L, RDW Std Deviation 67.7 H, RDW Coeff of Lencho 18.1 H, Plt Count 118 L, MPV 10.0, Immature Gran % (Auto) 0.300, Neut % (Auto) 84.3 H, Lymph % (Auto) 5.7 L, [place] % (Auto) 7.1, Eos % (Auto) 2.5, Baso % (Auto) 0.1, Absolute Neuts (auto) 5.8, Absolute Lymphs (auto) 0.39 L, Nucleated RBC % 0, Platelet Estimate SLT DEC, Anisocytosis 1+, Macrocytosis 1+, Sodium 136, Potassium 4.3, Chloride 102, Carbon Dioxide 24.0, Anion Gap 10, BUN 95 H, Creatinine 7.86 H*, Estim Creat Clear Calc 8.00, Est GFR (MDRD) Af Amer 9 L, Est GFR (MDRD) Non-Af 7 L, BUN/Creatinine Ratio 12.1, Glucose 138 H, Calcium 7.9 L Physical Exam Narrative GENERAL: cooperative HEENT: Atraumatic; normocephalic EYES; Anicteric, Normal Conjunctiva NECK; supple, normal thyroid, RESPIRATORY: Diminished to auscultation CARDIOVASCULAR: Regular S1 S2, GI: soft, normoactive bowel sounds, : No Renal angle tenderness; EXTREMITIES: No edema, no clubbing, MUSCULOSKELETAL: no muscle wasting NEURO: Awake; no lateralizing signs. SKIN: No Rash PSYCH; Flat affect Assessment & Plan Assessment/Plan (1) Acute blood loss anemia (ABLA): (2) Acute GI bleeding: (3) Hematochezia: (4) Acute on chronic anemia: (5) Elevated troponin: (6) Hypokalemia: (7) Pancolitis: (8) Clostridium difficile infection: (9) Duodenal ulcer: (10) Wide-complex tachycardia: PLAN: Plan GI bleed secondary to duodenal ulcers x3 -EGD performed on 03/03/2023 showed normal upper third of the esophagus with grade a esophagitis, small hiatal hernia, erosive gastropathy with no stigmata of bleeding that was biopsies and 3 oozing duodenal ulcers with pigmented material that were injected and treated with heater probe -EGD yesterday also displayed bleeding in the duodenum secondary to anticoagulation causing ulceration in the duodenum status post endoscopic treatment. -Continue Protonix 40 mg p.o. twice daily for 8 weeks and then transition to daily -Continue Carafate 1 g 4 times daily -We will be performing a repeat upper endoscopy to evaluate his upper GI tract to see if the restarting of his Eliquis because recurrent GI bleeding. Acute on chronic anemia with chronic anemia secondary to chronic renal disease -Chronic anemia due to end-stage renal disease on HD -Transfuse for hemoglobin less than 7 -Hemoglobin is 8.1 today -Continue home iron supplementation -Procrit per nephrology -He also has intermittent thrombocytopenia that I am not sure it is secondary to underlying mild dysplastic syndrome in the setting of increased MCV or reticulocytosis. He should see hematology as an outpatient. Charges/Coding Visit Charges Inpatient E&M: 39075 Subs Hosp L3
[2023-03-24] MEDS: Carvedilol 3.125 MG TABLET PO (17:10)
[2023-03-25 04:11] VITALS: BMI 32.1
[2023-03-25 04:36] VITALS: BP 107/60; PULSE 90; RESP 15; TEMP 36.8; O2SAT 97
[2023-03-25 06:21] LABS: Absolute Lymphocyte Count 0.62 X10^3/uL (0.83-4.51); Absolute Neutrophil Count 4.2 X10^3/uL (2.0-7.7); Eosinophil# 0.29 X10^3/uL; Eosinophils% 5.2 % (0-5); Hematocrit 27.5 % (40-54); Hemoglobin 8.8 g/dL (13.0-16.5); Lymphocyte # 0.62 X10^3/ul (0.83-4.51); Lymphocyte % 11.2 % (19-41); Mean Corpuscular Hgb 33.5 pg (27.0-32.0); Mean Corpuscular Volume 104.6 fL (80-94); Mean Platelet Vol. 10.2 fl (6.2-12.0); Monocyte# 0.46 X10^3/uL; Monocyte% 8.3 % (0-10); NRBC Flagged by Analyzer 0 % (0-5); Neutrophil # 4.16 X10^3/uL (2.7-7.7); Neutrophil % 75.1 % (47-70); POSITIVE MORPHOLOGY YES; Platelet Count 118 K/mm3 (150-450); RBC Distribution Width CV 17.9 % (11.6-14.6); RBC Distribution Width SD 67.8 fl (35.1-43.9); Red Blood Count 2.63 M/mm3 (4.6-6.2); White Blood Count 5.5 K/mm3 (4.4-11.0)
[2023-03-25 06:22] LABS: Differential Indicated SCAN CRITERIA MET
[2023-03-25] MEDS: Sucralfate 1 GM Tablet PO ×2 (06:31→11:44)
[2023-03-25 06:44] LABS: Anisocytosis 1+; Hypochromasia 1+; Macrocytosis 1+; Platelet Estimate SLT DEC (ADEQ)
[2023-03-25 07:06] LABS: Anion Gap 5 (5-15); BUN 81 mg/dL (7-18); Calcium,Total 8.3 mg/dL (8.5-10.1); Chloride 103 mmol/L (98-107); Creatinine, Serum 6.74 mg/dL (0.70-1.30); EST Glomerular Filtration Rate 9 mL/min (>60); Est Glom Filt Rate - Afr Amer 10 mL/min (>60); Estimated Creatinine Clearance 9.32 ml/min; Glucose 111 mg/dL (74-106); Potassium 4.1 mmol/L (3.5-5.1); Sodium Level 136 mmol/L (136-145)
[2023-03-25 08:07] VITALS: BP 117/55; PULSE 75; RESP 16; TEMP 36.1; O2SAT 99
[2023-03-25] MEDS: Calcitriol 0.25 MCG Capsule PO (08:11)
[2023-03-25] MEDS: Carvedilol 3.125 MG TABLET PO (08:11)
[2023-03-25] MEDS: Amiodarone 200 MG Tablet PO (08:11)
[2023-03-25] MEDS: Pantoprazole Sodium 40 MG Tablet PO (08:11)
[2023-03-25] MEDS: Budesonide 3 MG CAPSULE.EC 9 MG PO (08:11)
[2023-03-25 08:38] VITALS: O2SAT 99
--- NOTE | 2023-03-25 08:51 | PCM.DC.SUM ---
Providers Date of Admission: 03/21/23 Date of Discharge: 03/25/23 Primary Care Physician: Dr. Martin Nunez, DO Consultations 03/22/23 00:00 Consult: Gastroenterology Routine Consulting Provider: [facility] Reason for Consult: gib EMERGENT Consult: Yes Notified: Yes Date Notified: 03/21/23 Time Notified: 22:18 Method of Notification: ED Physician Initiated 03/22/23 08:40 Consult: Nephrology Routine Consulting Provider: Sonia He Reason for Consult: Dialysis EMERGENT Consult: Yes MD Notified: Yes Date Notified: 03/22/23 Time Notified: 08:41 Method of Notification: Verbal 03/22/23 08:50 Consult: Nephrology Routine Consulting Provider: Sonia He Reason for Consult: esrd EMERGENT Consult: No Notified: Yes Date Notified: 03/22/23 Time Notified: 08:50 Method of Notification: Text Reason For Visit: GASTROINTESTINAL BLEED Diagnosis Discharge Diagnosis (1) Acute blood loss anemia (ABLA): Status: Deleted Code(s): D62 - Acute posthemorrhagic anemia (2) Acute GI bleeding: Status: Resolved Code(s): K92.2 - Gastrointestinal hemorrhage, unspecified (3) Hematochezia: Status: Resolved Code(s): K92.1 - Melena (4) Acute on chronic anemia: Status: Chronic Code(s): D64.9 - Anemia, unspecified (5) Elevated troponin: Status: Inactive Code(s): R77.8 - Other specified abnormalities of plasma proteins (6) Hypokalemia: Status: Resolved Code(s): E87.6 - Hypokalemia (7) Pancolitis: Status: Acute Code(s): K51.00 - Ulcerative (chronic) pancolitis without complications (8) Clostridium difficile infection: Status: Acute Code(s): A49.8 - Other bacterial infections of unspecified site (9) Duodenal ulcer: Status: Inactive Code(s): K26.9 - Duodenal ulcer, unspecified as acute or chronic, without hemorrhage or perforation (10) Wide-complex tachycardia: Status: Inactive Code(s): R00.0 - Tachycardia, unspecified Plan Patient is a 77-year-old gentleman who presented with black tarry stools. Patient had apparently been diagnosed with duodenal ulcers based on an EGD performed on 03/03/2023. Patient was also found to have colitis and tested positive for C. difficile with PCR toxin was however negative. Discharged on vancomycin as well as Entocort 1. Acute GI bleed ? EGD performed on 03/03/2023 showed normal upper third of the esophagus with grade a esophagitis, small hiatal hernia, erosive gastropathy with no stigmata of bleeding that was biopsies and 3 oozing duodenal ulcers with pigmented material that were injected and treated with heater probe. Patient was however discharged on Eliquis which has since been discontinued - LA Grade B reflux esophagitis with no bleeding. - Erythematous mucosa in the gastric body. - Non-bleeding duodenal ulcers with pigmented material. Treated with a heater probe. - No specimens collected. ? Patient on PPI ? 03/24/2023 hemoglobin remained stable at 8.0 2. Diffuse colitis ? Patient tested positive for C. difficile PCR but negative for the toxin during his previous admission. Was discharged on Entocort as well as vancomycin 3. Hypertension - Blood pressure controlled, home medications continued with dose adjustment as needed ? 03/24/2023 patient antihypertensives adjusted given his relatively low blood pressure 4. Paroxysmal A-fib ? Patient is on amiodarone as well as carvedilol patient was on systemic anticoagulation with Eliquis discontinued given his recurrent GI bleed 5. End-stage renal disease on hemodialysis ? Nephrology consulted for dialysis orders 6. Anemia - Secondary to acute on chronic blood loss anemia as well as anemia secondary to chronic disorder/ESRD monitoring H&H and transfuse if patient becomes symptomatic or hemoglobin falls below 7 7. DVT prophylaxis ? Bilateral SCDs chemoprophylaxis contraindicated given patient presentation 8. Physical deconditioning - Requested for PT OT eval and social services counselor to assist with discharge planning Time spent in the patient's overall evaluation,decision-making process, review of diagnostic data, adjustment of management, discussion with other providers, nursing nursing and ancillary staff involved in patient's care documentation, 35 Minutes Medications at Discharge Home Medications carvedilol 6.25 mg tablet 3.125 mg PO BID blood pressure 04/24/17 vitamin B complex 1 tab PO DAILY SUPPLEMENT 07/02/20 vitamin B complex and vitamin C no.20-folic acid 1 mg capsule (Virt-Caps) 1 cap PO DAILY vitamin #0 caps 02/23/22 ascorbic acid (vitamin C) 500 mg tablet 500 mg PO DAILY supplement 03/12/22 calcitriol 0.25 mcg capsule 0.25 mcg PO DAILY supplement 07/30/22 sucroferric oxyhydroxide 500 mg chewable tablet (Velphoro) 500 mg PO .with meals 03/01/23 amiodarone 200 mg tablet 200 mg PO DAILY #35 tabs 03/05/23 budesonide 3 mg capsule,delayed,extended release 9 mg (3 x 3 mg) PO DAILY #90 ea 03/05/23 pantoprazole 40 mg tablet,delayed release 40 mg PO BID #60 tabs 03/05/23 sucralfate 1 gram tablet 1 g PO 1HR_ACHS #120 tabs 03/05/23 vancomycin 125 mg capsule 125 mg PO Q6H #48 caps 03/05/23 Hospital Course Summary of Care Provided Minutes Spent on Discharge: 35 Physical Exam Narrative GENERAL: cooperative HEENT: Atraumatic; normocephalic EYES; Anicteric, Normal Conjunctiva NECK; supple, normal thyroid, RESPIRATORY: Diminished to auscultation CARDIOVASCULAR: Regular S1 S2, GI: soft, normoactive bowel sounds, : No Renal angle tenderness; EXTREMITIES: No edema, no clubbing, MUSCULOSKELETAL: no muscle wasting NEURO: Awake; no lateralizing signs. SKIN: No Rash PSYCH; Flat affect Weight / BMI Weight Weight: 98.6 kg Body Mass Index (BMI) 32.1 ABG / Lab / Microbiology Data 03/25/23 04:55 03/25/23 04:55 Laboratory: Laboratory Results - last 24 hr 03/25/23 04:55: WBC 5.5, RBC 2.63 L, Hgb 8.8 L, Hct 27.5 L, MCV 104.6 H, MCH 33.5 H, MCHC 32.0, RDW Std Deviation 67.8 H, RDW Coeff of Lencho 17.9 H, Plt Count 118 L, MPV 10.2, Immature Gran % (Auto) 0.200, Neut % (Auto) 75.1 H, Lymph % (Auto) 11.2 L, [place] % (Auto) 8.3, Eos % (Auto) 5.2 H, Baso % (Auto) 0.0, Absolute Neuts (auto) 4.2, Absolute Lymphs (auto) 0.62 L, Nucleated RBC % 0, Platelet Estimate SLT DEC, Hypochromasia 1+, Anisocytosis 1+, Macrocytosis 1+, Sodium 136, Potassium 4.1, Chloride 103, Carbon Dioxide 28.0, Anion Gap 5, BUN 81 H, Creatinine 6.74 H, Estim Creat Clear Calc 9.32, Est GFR (MDRD) Af Amer 10 L, Est GFR (MDRD) Non-Af 9 L, BUN/Creatinine Ratio 12.0, Glucose 111 H, Calcium 8.3 L D/C Instructions Discharge Diet: Renal Diet Discharge Activity: Return to Normal Activity Call your doctor if you observe: Fever of 101 or Higher, Shortness of breath, Fainting spells and Chest pain Meaningful Use Info Meaningful Use Diagnoses (Choose all that apply): None applicable Discharge Plan Admission Admit Date/Time: 03/21/23 22:16 Attending Provider: Isaias Story Primary Care Provider: Martin Nunez Consulting Providers: Gen Chin; Sonia He Discharge Orders/Prescriptions Prescriptions: Continued carvedilol 6.25 MG tablet 3.125 mg PO BID vitamin B complex 1 EACH tablet 1 tab PO DAILY Virt-Caps 1 mg Capsule 1 cap PO DAILY Qty: 0 0RF calcitriol 0.25 mcg capsule 0.25 mcg PO DAILY Velphoro 500 mg tablet,chewable 500 mg PO .with meals amiodarone 200 mg Tablet 200 mg PO DAILY Qty: 35 0RF Rx Instructions: Twice daily for 7 days then decrease to 1 tablet daily budesonide 3 mg Capsule,Delayed,Extend.Release 9 mg PO DAILY Qty: 90 1RF pantoprazole 40 mg Tablet,Delayed Release (Dr/Ec) 40 mg PO BID Qty: 60 1RF Rx Instructions: Take twice daily for 8 weeks then will decrease to daily sucralfate 1 gram Tablet 1 g PO 1HR_ACHS Qty: 120 0RF vancomycin 125 mg capsule 125 mg PO Q6H Qty: 48 0RF ascorbic acid (vitamin C) 500 mg tablet 500 mg PO DAILY Discontinued Eliquis 2.5 mg Tablet 2.5 mg PO BID Qty: 0 0RF Patient Comments: LAST DOSE WILL BE 03/27/22 PM Rx Instructions: resume on 03/31, evening dose Referrals / Follow Up: Rogelio Brewer MD [Med Staff - Active Staff] - 04/04/23 11:30 am (As previously scheduled) Martin Nunez, DO [Primary Care Provider] - 04/11/23 3:00 pm (As previously scheduled. Dr Nunez's office states, since this is your 4-6 month f/u appt, that you will also need to schedule a hospital follow-up appt with Dr Nunez in addition to this appt. ) Disposition Disposition (needs filled in before D/C Order can be placed): Home Health Service Charges/Coding Visit Charges Inpatient E&M: 82087 Disch Hosp >30min
--- NOTE | 2023-03-25 09:33 | CASEMGMT ---
Addendum entered by Nelly Horn 03/25/23 10:05: Jammie @ [facility] made aware pt is discharging home today. Original Note: KRUPA GOMES NOTE: Discharge order is in. KRUPA GOMES to room. Pt states he feels ready to discharge and has no concerns w/going home. [facility] SOC has been changed to 03/28 and pt is aware. Jovita NAIR RN CM
--- NOTE | 2023-03-25 10:09 | PHA.DC.MC.R ---
Pharmacy [facility] has performed discharge medication reconciliation and counseling for this patient. The patient was counseled on the following discharge medications and changes in medications for homegoing were reviewed. 1. ELIQUIS --> HOLD HOME DOSE UNTIL 03/31/23 PM DOSE The Reason for Use, instructions for use, and potential side effects were reviewed for all new medications. The patient's questions regarding all of their medications were answered. The patient was able to verbally demonstrate an understanding of their discharge medications. The patient's discharge medication list was reviewed for discrepancies and discrepancies were resolved. Medications at Discharge Home Medications carvedilol 6.25 mg tablet 3.125 mg PO BID blood pressure 04/24/17 vitamin B complex 1 tab PO DAILY SUPPLEMENT 07/02/20 vitamin B complex and vitamin C no.20-folic acid 1 mg capsule (Virt-Caps) 1 cap PO DAILY vitamin #0 caps 02/23/22 ascorbic acid (vitamin C) 500 mg tablet 500 mg PO DAILY supplement 03/12/22 calcitriol 0.25 mcg capsule 0.25 mcg PO DAILY supplement 07/30/22 sucroferric oxyhydroxide 500 mg chewable tablet (Velphoro) 500 mg PO .with meals 03/01/23 amiodarone 200 mg tablet 200 mg PO DAILY #35 tabs 03/05/23 budesonide 3 mg capsule,delayed,extended release 9 mg (3 x 3 mg) PO DAILY #90 ea 03/05/23 pantoprazole 40 mg tablet,delayed release 40 mg PO BID #60 tabs 03/05/23 sucralfate 1 gram tablet 1 g PO 1HR_ACHS #120 tabs 03/05/23 vancomycin 125 mg capsule 125 mg PO Q6H #48 caps 03/05/23
[2023-03-25] MEDS: 0.9% Saline Lock 10 ML Syringe IV (11:44)
== END 2023-03-25 12:46 | disposition home health service (06) | DRG 377 ==
LOC: ED 22:37 → PCU 22:50
PROVIDERS: Internal Medicine Gastroenterology; Admitting Provider Family Medicine; Emergency Provider Emergency Medicine; PCP Student in an Organized Health Care Education/Training Program; Visit Provider Internal Medicine
PROC: 0DJ08ZZ Inspection of Upper Intestinal Tract, Via Natural or Artificial Opening Endoscopic (ICD-10-PCS; CPT 43235; principal; 2023-03-22 15:55)
DX: K26.4 Chronic or unspecified duodenal ulcer with hemorrhage (principal); N18.6 End stage renal disease; I12.0 Hypertensive chronic kidney disease with stage 5 chronic kidney disease or end stage renal disease; I47.29 Other ventricular tachycardia; K51.00 Ulcerative (chronic) pancolitis without complications; D62 Acute posthemorrhagic anemia; D63.1 Anemia in chronic kidney disease; D69.59 Other secondary thrombocytopenia; I48.0 Paroxysmal atrial fibrillation; Z99.2 Dependence on renal dialysis; E78.5 Hyperlipidemia, unspecified; E87.6 Hypokalemia; R54 Age-related physical debility; K21.00 Gastro-esophageal reflux disease with esophagitis, without bleeding; R77.8 Other specified abnormalities of plasma proteins; Z90.6 Acquired absence of other parts of urinary tract; Z79.01 Long term (current) use of anticoagulants; Z79.899 Other long term (current) drug therapy; Z86.711 Personal history of pulmonary embolism; Z86.718 Personal history of other venous thrombosis and embolism; Z87.891 Personal history of nicotine dependence
CPT/HCPCS: 36415; 36591; 80048; 83735; 84100; 84484; 85025; 85610; 85730; 86850; 86900; 86901; 86920; 86922; 90937; 93005; 97162; 97166; 97802; 99285; J7030; J7040; P9016; A4216; G0257; J3490; Q5106

== ENCOUNTER 2023-03-29 09:48 | Emergency (ER) | payer MEDICARE, BC, SELFPAY ==
[2023-03-29] VITALS (8 sets, daily range): BP systolic 126–138; BP diastolic 58–78; PULSE 79–90; RESP 18; TEMP 36.4; O2SAT 93–100; BMI 32.5
--- NOTE | 2023-03-29 10:02 | EKG12_ITS ---
Test Reason : SOB Blood Pressure : / mmHG Vent. Rate : 089 BPM Atrial Rate : 000 BPM P-R Int : 000 ms QRS Dur : 166 ms QT Int : 402 ms P-R-T Axes : 000 -77 062 degrees QTc Int : 489 ms Atrial fibrillation Left axis deviation Right bundle branch block Septal infarct , age undetermined Abnormal ECG Confirmed by SHAYNA BYERS, JEANETTE ([id number]), managing editor KEVIN MARIE ([id number]) on 03/30/2023 10:38:49 AM Referred By: Confirmed By:JEANETTE CORRAL MD
--- NOTE | 2023-03-29 10:02 | RAD_ITS ---
STUDY: X-RAY CHEST REASON FOR EXAM: Male, 77 years old. chest pain TECHNIQUE: Two AP portable view of the chest. COMPARISON: February 28, 2023 FINDINGS: Right chest port with the catheter terminating in the distal SVC. There are interstitial fibrotic changes of the lungs. No visualized consolidation. There is no demonstrated pleural abnormality. Normal size heart. There are calcified mediastinal lymph nodes. Normal visualized pulmonary arteries. There is atherosclerotic calcification of the aortic arch with tortuosity. There are diffuse degenerative changes of the visualized thoracic spine. Normal visualized ribs, clavicles, and shoulders. There is no demonstrated abnormality of the visualized soft tissue structures of the upper abdomen. RAD/Chest 1 View (Portable) IMPRESSION: Degenerative changes, as described above. No demonstrated acute cardiopulmonary process. Electronically Signed: Zackary Mancia MD at 11:15 EDT ,
--- NOTE | 2023-03-29 10:03 | ED.VIS.DYS ---
HPI History of Present Illness Chief Complaint: Shortness of Breath Informant: patient and family Onset/Context/Timing Onset: Today and Yesterday Context: gradual Timing: Continuous Current Severity: Mild Maximum Severity: Mild Worsened by: Nothing Relieved by: Nothing Associated Symptoms Negative for cough, rhinorrhea, post nasal drip, ear pain, fever, sore throat, subjective, chills, sweats or clear sputum Chest Pain: Positive for Intermittent, Sharp and - (Midsternal and right-sided chest pain.) Narrative Narrative: 77-year-old male extensive past medical history including recent GI bleed with transfusion of 2 units of blood. Hospitalized last week. History of A-fib, CHF and [place]. History of chronic kidney disease on dialysis. History of prior DVT and PE. History of anemia. He was on Eliquis they had to DC that due to an upper GI bleed. He has been off Eliquis for a week or so. Presents complaining of shortness of breath that started last night at around 11 PM. He also has some mild midsternal right-sided chest discomfort. Denies any fever or chills. No significant cough. PE Risk Factors: Positive for Prior DVT or PE and Recent immobilization; Negative for Cancer, OCP + Smoking + > 35, Recent surgery or Recent travel Prior similar symptoms: Yes Recent Illness/Hospitalization: Yes [facility] Medical History Abnormal finding on ultrasound Acute kidney injury Anemia Aortic root dilatation Atrial fibrillation Bladder cancer Bladder cancer CHF (congestive heart failure) CKD (chronic kidney disease) stage 5, GFR less than 15 ml/min Duodenal ulcer Elevated troponin Elevated troponin ESRD (end stage renal disease) ESRD (end stage renal disease) on dialysis ESRD (end stage renal disease) on dialysis Essential hypertension Hepatic cyst History of DVT (deep vein thrombosis) History of pulmonary embolism History of solitary pulmonary nodule HIT (heparin-induced thrombocytopenia) HLD (hyperlipidemia) Hyperparathyroidism Iron deficiency anemia Iron deficiency anemia Left upper chest discomfort Lower gastrointestinal bleeding Lymphoma Lymphoma Neutropenic fever Pancytopenia Paroxysmal A-fib Preop cardiovascular exam Pulmonary embolism Renal calculus Shortness of breath VTE (venous thromboembolism) Wide-complex tachycardia Home Medications carvedilol 6.25 mg tablet 3.125 mg PO BID blood pressure 04/24/17 [History Last Taken 02/28/23 11:00 3.125 mg] vitamin B complex 1 tab PO DAILY SUPPLEMENT 07/02/20 [History Last Taken 02/28/23 11:00] vitamin B complex and vitamin C no.20-folic acid 1 mg capsule (Virt-Caps) 1 cap PO DAILY vitamin #0 caps 02/23/22 [Rx Last Taken 02/28/23 11:00] ascorbic acid (vitamin C) 500 mg tablet 500 mg PO DAILY supplement 03/12/22 [History Last Taken 02/28/23] calcitriol 0.25 mcg capsule 0.25 mcg PO DAILY supplement 07/30/22 [History Last Taken 02/28/23] sucroferric oxyhydroxide 500 mg chewable tablet (Velphoro) 500 mg PO .with meals anemia 03/01/23 [History Last Taken Unknown] amiodarone 200 mg tablet 200 mg PO DAILY heart rate #35 tabs 03/05/23 [Rx Last Taken Unknown] budesonide 3 mg capsule,delayed,extended release 9 mg (3 x 3 mg) PO DAILY breathing #90 ea 03/05/23 [Rx Last Taken Unknown] pantoprazole 40 mg tablet,delayed release 40 mg PO BID reflux #60 tabs 03/05/23 [Rx Last Taken Unknown] sucralfate 1 gram tablet 1 g PO 1HR_ACHS reflux #120 tabs 03/05/23 [Rx Last Taken Unknown] vancomycin 125 mg capsule 125 mg PO Q6H infection #48 caps 03/05/23 [Rx Last Taken Unknown] Allergy/AdvReac Type Severity Reaction Status Date / Time enoxaparin [From Lovenox] Allergy Other Verified 03/29/23 09:49 heparin Allergy Other Verified 03/29/23 09:49 aspirin AdvReac Other Verified 03/29/23 09:49 Family History Father Cancer lung Arrhythmia Brother Cancer Surgical History AV fistula H/O total cystectomy History of cataract extraction History of corrected cleft lip and palate History of tonsillectomy Social History household members: none Smoking Status: Former smoker how long ago did patient quit smokin alcohol intake: never substance use type: does not use caffeine: No ROS ROS ED ROS Narrative Hartness of breath. Review of Systems ROS Unobtainable: Denies due to encephalopathy Constitutional Constitutional ED: Denies chills or fever(s) Eyes Eyes: Denies blurry vision ENT ENT ED: Denies ear pain Cardiovascular Cardiovascular: Reports chest pain; Denies palpitations or racing heartbeat Respiratory/Chest Respiratory/Chest: Reports dyspnea; Denies cough Gastrointestinal Gastrointestinal: Denies abdominal pain Genitourinary Genitourinary ED: Denies dysuria or hematuria Musculoskeletal Musculoskeletal: Denies arthralgias Integumentary Denies abscess Neurologic Neurologic: Denies headache(s) Psychiatric Psychiatric: Denies anxiety Endocrine Endocrinology: Denies cold intolerance Hematologic/Lymphatic Hematologic/Lymphatic: Denies easy bleeding or easy bruising Allergic/Immunologic Allergic/Immunologic ED: Denies mouth swelling or tongue swelling EXAM Physical Exam Narrative Exam Narrative: Well-appearing 77-year-old male. Vital signs are stable. On 2 L he is 93% pulse ox. When I enter the room he is on 100% pulse ox. No distress. Sitting upright in bed. Son present in room. H EENT exam unremarkable. Neck nontender. No JVD. Lungs clear to auscultation bilaterally. Heart regular rate about 85 no murmur. Chest wall he does have reproducible right-sided chest wall tenderness. No ecchymosis or bruising. No subcu air crepitance. Abdomen is soft and nontender. Nondistended. Normal bowel sounds no peritoneal signs. He moves all 4 extremities. Calves are nontender without edema or cords. Logically he is awake and alert with no focal motor deficits. He is answering questions and following commands. Const Vital Signs: 03/29/23 09:50 03/29/23 09:49 03/29/23 10:02 Temperature 97.6 F L Temperature Source Temporal Pulse Rate 87 Respiratory Rate 18 Respiratory Effort Short of Breath Normal Non-Labored Respiratory Depth Shallow Normal Respiratory Pattern Normal Normal Blood Pressure 138/69 H Blood Pressure Mean 92 Pulse Ox 93 Oxygen Delivery Method Nasal Cannula Nasal Cannula Oxygen Flow Rate (L/min) 2 2 03/29/23 10:35 03/29/23 12:22 03/29/23 14:00 Temperature Temperature Source Pulse Rate 85 90 Respiratory Rate 18 18 Respiratory Effort Respiratory Depth Respiratory Pattern Blood Pressure 129/73 H Blood Pressure Mean 91 Pulse Ox 97 97 95 Oxygen Delivery Method Room Air Room Air Room Air Oxygen Flow Rate (L/min) 03/29/23 17:02 Temperature Temperature Source Pulse Rate 79 Respiratory Rate 18 Respiratory Effort Respiratory Depth Respiratory Pattern Blood Pressure 126/58 H Blood Pressure Mean 80 Pulse Ox 95 Oxygen Delivery Method Room Air Oxygen Flow Rate (L/min) Positive well nourished and well developed; Negative for cachectic, contractures or unkempt General Appearance ED: well developed and NAD; Negative for unkempt, cachectic, contractures or pallor Nutritional Appearance: Negative for cachectic HEENT Reports moist mucous membranes atraumatic; Negative for trauma or tenderness Eyes PERRL and EOMs intact bilaterally General Eye ED: Negative for pale conjunctiva or scleral icterus Neck no lymphadenopathy, supple, no meningeal signs and no JVD Chest Wall Chest Narrative: Visible chest wall pain on the anterior right chest. No crepitance or subcu air. No bruising. No bony deformity. Resp normal respiratory effort and clear to auscultation bilaterally Effort and Inspection: Negative for pain with movement Auscultation: Negative for rales, rhonchi or wheezes Cardio regular rate and no murmurs; Negative for regular rhythm Cardio Narrative: A-fib rate about 89. Rhythm: abnormal rhythm GI non-tender, non-distended and no masses Inspection: Negative for other Auscultation: normoactive bowel sounds Palpation: soft; Negative for tender or guarding Back/Spine no CVA tenderness and normal to inspection General Back: Negative for CVA tenderness or tenderness Extremity normal to inspection General Extremety ED: Negative for edema or tenderness General Extremity: Negative for edema Neuro CN's II-XII intact bilaterally Sensorium / Orientation: alert, oriented to person, oriented to place and oriented to time; Negative for orientation impaired, confused, lethargic or stuporous Speech: speech normal Motor Exam: strength 5/5 throughout Psych mental status grossly normal Appearance: Negative for unkempt Attitude: No agitated Mood & Affect: Negative for depressed, anxious or tearful Thought Process: normal thought process Skin no wounds and skin turgor normal General Skin Exam: Negative for jaundice or pallor Lesions: no lesions Rashes: no rashes Trauma: Negative for abrasion or laceration MDM MDM MDM Narrative Medical decision making narrative: 77-year-old male presents complaining shortness of breath. The past medical history. Recent anticoagulation DC'd due to an upper GI bleed. Prior history of DVT and PE. Recent hospitalization. Differential would include cardiac, effusions, CHF, pneumonia, blood clots, anemia etc. He will undergo cardiac work-up. D-dimer will be obtained. Exam patient is doing well at 5:34 PM. We went over all his test results. Most of this looks chronic. He is a chronically elevated troponin. It is actually much better than normal. Is a chronic anemia and slightly better than normal. His CAT scan showed no PE. His vital signs are stable his pulse ox is 95% on 2 L. I am comfortable the patient being discharged home. I am going to call his dialysis center to see if they can get him in to be dialyzed tomorrow since he missed today. History & Record Review Discussion w/independent historian: Patient and Family Additional record(s) reviewed:: Prior inpatient record, Prior outpatient record, Prior ED visit and Prior labs Lab Data Attestation: I reviewed the patient's lab results. Lab results narrative: Patient 6.2. H&H 8.9 and 28.6. Platelets 157. Prior labs these are his baseline or slightly improved. He has a chronic anemia. He had a recent transfusion secondary to GI bleed. Dimer is elevated at 0.91. Troponin is elevated to 235. BNP is elevated at 1853. Electrolytes show gap of 10. BUN and creatinine of 81 and 7.37 consistent with his kidney failure. Glucose 92. I reviewed the patient's prior troponins they are all elevated this is actually the lowest troponin at 235 he has had in the last year. Typically he is in the 500+ range. Also reviewed his last echocardiogram which showed an EF of 60%. Labs: Laboratory Results - last 24 hr 03/29/23 10:30 WBC 6.2 RBC 2.75 L Hgb 8.9 L Hct 28.6 L MCV 104.0 H MCH 32.4 H MCHC 31.1 L RDW Std Deviation 66.4 H RDW Coeff of Lencho 17.6 H Plt Count 157 MPV 9.7 Immature Gran % (Auto) 0.300 Neut % (Auto) 83.6 H Lymph % (Auto) 7.3 L [facility] % (Auto) 6.2 Eos % (Auto) 2.4 Baso % (Auto) 0.2 Absolute Neuts (auto) 5.1 Absolute Lymphs (auto) 0.45 L Nucleated RBC % 0 D-Dimer Quant (PE/DVT) 0.91 H* Sodium 143 Potassium 3.5 Chloride 112 H Carbon Dioxide 21.0 Anion Gap 10 BUN 81 H Creatinine 7.37 H Estim Creat Clear Calc 8.53 Est GFR (MDRD) Af Amer 9 L Est GFR (MDRD) Non-Af 8 L BUN/Creatinine Ratio 11.0 Glucose 92 Calcium 6.7 L Troponin I High Sens 235 H* B-Natriuretic Peptide 1853.7 H Radiography Chest X-Ray - ED: 1 View, Read by ED Physician, Read by Radiologist, Heart, Lungs, Mediastinum, Bony Structures, No Acute Disease and Chronic Changes Diagnostic Testing: Clinical Impression(s) from Imaging Studies Chest X-Ray 03/29/23 10:02 IMPRESSION: Degenerative changes, as described above. No demonstrated acute cardiopulmonary process. Electronically Signed: Zackary Mancia MD at 11:15 EDT , Chest CTA 03/29/23 12:57 IMPRESSION: Normal CTA chest examination, without a demonstrated pulmonary embolism or arterial dissection. Severe COPD. Electronically Signed: Ed Garcia MD at 16:13 EDT , Chest x-ray, portable, single view interpreted both by myself and the radiologist shows no acute abnormality. Chronic changes. Med port on the right. Rhythm Strip Rhythm Strip: A-fib Rate: 89 EKG Initial EKG: Attestation: I personally reviewed and interpreted this EKG as follows: Interpretation: No Acute Injury Pattern and Atrial Fibrillation Comments: Atrial fibrillation rate of 89. No acute signs of [place] or ischemia. Bundle branch block Prior EKG from March 21 there is no acute change. Again A-fib rate 88 at that time. He has a right bundle branch block. He has chronic T wave changes. Prior EKG tracings: available for review Prior: Unchanged Discharge Plan Triage Chief Complaint: Shortness of Breath ED Provider: Kory Flynn Dx/Rx/DC Orders Clinical Impression: Acute dyspnea, ESRD (end stage renal disease) on dialysis, Chest pain, Chronic anemia, History of COPD Instructions: ED Dyspnea Prescriptions: No Action carvedilol 6.25 MG tablet 3.125 mg PO BID vitamin B complex 1 EACH tablet 1 tab PO DAILY Virt-Caps 1 mg Capsule 1 cap PO DAILY Qty: 0 0RF calcitriol 0.25 mcg capsule 0.25 mcg PO DAILY Velphoro 500 mg tablet,chewable 500 mg PO .with meals amiodarone 200 mg Tablet 200 mg PO DAILY Qty: 35 0RF Rx Instructions: Twice daily for 7 days then decrease to 1 tablet daily budesonide 3 mg Capsule,Delayed,Extend.Release 9 mg PO DAILY Qty: 90 1RF pantoprazole 40 mg Tablet,Delayed Release (Dr/Ec) 40 mg PO BID Qty: 60 1RF Rx Instructions: Take twice daily for 8 weeks then will decrease to daily sucralfate 1 gram Tablet 1 g PO 1HR_ACHS Qty: 120 0RF vancomycin 125 mg capsule 125 mg PO Q6H Qty: 48 0RF ascorbic acid (vitamin C) 500 mg tablet 500 mg PO DAILY Primary Care Provider: Martin Nunez Referrals: Martin Nunez, [Primary Care Provider] - 3-5 Days Activity Restrictions/Additional Instructions: Your labs today are your baseline. Your anemia is slightly improving. Your cardiac enzymes are always elevated and is actually the best reading you have had was today. The EKG and CAT scan your chest did not show any blood clots or heart attack. Call dialysis tomorrow to see if they can get you into get you dialyzed. Return if feeling worse. Disposition Disposition: Home, Self Care
[2023-03-29 10:38] LABS: Absolute Lymphocyte Count 0.45 X10^3/uL (0.83-4.51); Absolute Neutrophil Count 5.1 X10^3/uL (2.0-7.7); Basophil# 0.01 X10^3/uL; Basophil% 0.2 % (0-1); Eosinophil# 0.15 X10^3/uL; Eosinophils% 2.4 % (0-5); Hematocrit 28.6 % (40-54); Hemoglobin 8.9 g/dL (13.0-16.5); Lymphocyte # 0.45 X10^3/ul (0.83-4.51); Lymphocyte % 7.3 % (19-41); Mean Corp Hgb Conc 31.1 g/dL (32-36); Mean Corpuscular Hgb 32.4 pg (27.0-32.0); Mean Platelet Vol. 9.7 fl (6.2-12.0); Monocyte# 0.38 X10^3/uL; Monocyte% 6.2 % (0-10); NRBC Flagged by Analyzer 0 % (0-5); Neutrophil # 5.14 X10^3/uL (2.7-7.7); Neutrophil % 83.6 % (47-70); POSITIVE DIFFERENTIAL YES; POSITIVE MORPHOLOGY YES; Platelet Count 157 K/mm3 (150-450); RBC Distribution Width CV 17.6 % (11.6-14.6); RBC Distribution Width SD 66.4 fl (35.1-43.9); Red Blood Count 2.75 M/mm3 (4.6-6.2); White Blood Count 6.2 K/mm3 (4.4-11.0)
[2023-03-29 10:40] LABS: Differential Indicated SCAN CRITERIA MET
[2023-03-29 10:54] LABS: D-Dimer Quantitative (DVT/PE) 0.91 FEU/ug/m (0.27-0.49)
[2023-03-29 11:07] LABS: Anion Gap 10 (5-15); BUN 81 mg/dL (7-18); Calcium,Total 6.7 mg/dL (8.5-10.1); Chloride 112 mmol/L (98-107); Creatinine, Serum 7.37 mg/dL (0.70-1.30); EST Glomerular Filtration Rate 8 mL/min (>60); Est Glom Filt Rate - Afr Amer 9 mL/min (>60); Estimated Creatinine Clearance 8.53 ml/min; Glucose 92 mg/dL (74-106); Potassium 3.5 mmol/L (3.5-5.1); Sodium Level 143 mmol/L (136-145); Troponin-I HS 235 pg/mL (3.0-78.0)
--- NOTE | 2023-03-29 12:57 | CT_ITS ---
STUDY: CTA CHEST REASON FOR EXAM: Male, 77 years old. elevated d-dimer RADIATION DOSAGE (If Supplied By Facility): CTDIvol = ( 17.14 ) mGy, DLP = ( 529.97 ) mGycm TECHNIQUE: The examination was performed with the intravenous administration of IV 75mL [id number]-[id number]. Post-processing of the angiographic images was performed, with multiplanar reformation and 3D reconstruction. Individualized dose optimization techniques were used for this CT. COMPARISON: 04/24/2017 FINDINGS: Normal enhancement of the main pulmonary artery and right and left pulmonary arteries. Normal enhancement of the bilateral peripheral pulmonary arteries. There is no demonstrated pulmonary embolism. There is atherosclerotic calcification of the aortic arch with tortuosity. There is no demonstrated aortic dissection. Normal heart and pericardium. There are calcifications of the coronary arteries. Normal mediastinum. Normal hilar regions. Normal visualized trachea and bronchi. The lungs are hyper expanded, with flattening of the hemidiaphragms. Stable changes of severe centrilobular emphysema. No infiltrates. No effusions. Normal osseous structures. Images through the upper abdomen demonstrate stable appearance of cholelithiasis, bilateral lobulated adrenal masses, and extensive renal cysts. CT/CTA Chest W/WO Contrast IMPRESSION: Normal CTA chest examination, without a demonstrated pulmonary embolism or arterial dissection. Severe COPD. Electronically Signed: Ed Garcia MD at 16:13 EDT ,
--- NOTE | 2023-03-29 16:00 | ED.RN ---
CALLED CT ON PENDING CT SCAN, PENDING FOR 2 HOURS NOW.
== END 2023-03-29 18:08 | disposition home or self-care (01) ==
PROVIDERS: Emergency Provider Emergency Medicine; PCP Student in an Organized Health Care Education/Training Program; Visit Provider Emergency Medicine
DX: R06.00 Dyspnea, unspecified (principal); I13.2 Hypertensive heart and chronic kidney disease with heart failure and with stage 5 chronic kidney disease, or end stage renal disease; Z99.2 Dependence on renal dialysis; J44.9 Chronic obstructive pulmonary disease, unspecified; I50.9 Heart failure, unspecified; N18.6 End stage renal disease; R07.9 Chest pain, unspecified; D64.9 Anemia, unspecified; I25.2 Old myocardial infarction; Z86.718 Personal history of other venous thrombosis and embolism; Z86.711 Personal history of pulmonary embolism; Z87.891 Personal history of nicotine dependence
CPT/HCPCS: 36591; 71045; 71275; 80048; 83880; 84484; 85025; 85379; 93005; 99285; Q9967; A4216

== ENCOUNTER 2023-04-27 18:48 | Observation (INO) | payer MEDICARE, BC, SELFPAY ==
[2023-04-27 18:49] VITALS: BP 110/59; PULSE 74; RESP 16; TEMP 36.4; O2SAT 100
--- NOTE | 2023-04-27 18:55 | EKG12_ITS ---
Test Reason : DYSRHYTHMIA Blood Pressure : / mmHG Vent. Rate : 077 BPM Atrial Rate : 000 BPM P-R Int : 000 ms QRS Dur : 180 ms QT Int : 440 ms P-R-T Axes : 000 -68 143 degrees QTc Int : 497 ms Atrial fibrillation Left axis deviation Right bundle branch block Septal infarct , age undetermined T wave abnormality, consider lateral ischemia Abnormal ECG Confirmed by CARIE BYERS, MADHU ([id number]), publications editor PASCUAL VEGA ([id number]) on 05/02/2023 10:37:56 AM Referred By: Confirmed By:JEET DARNELL MD
[2023-04-27 19:23] LABS: Absolute Lymphocyte Count 0.28 X10^3/uL (0.83-4.51); Absolute Neutrophil Count 4.7 X10^3/uL (2.0-7.7); Basophil# 0.01 X10^3/uL; Basophil% 0.2 % (0-1); Eosinophil# 0.01 X10^3/uL; Eosinophils% 0.2 % (0-5); Hematocrit 23.1 % (40-54); Hemoglobin 6.8 g/dL (13.0-16.5); Lymphocyte # 0.28 X10^3/ul (0.83-4.51); Lymphocyte % 5.3 % (19-41); Mean Corp Hgb Conc 29.4 g/dL (32-36); Mean Corpuscular Hgb 32.9 pg (27.0-32.0); Mean Corpuscular Volume 111.6 fL (80-94); Mean Platelet Vol. 10.5 fl (6.2-12.0); Monocyte% 5.7 % (0-10); NRBC Flagged by Analyzer 0 % (0-5); Neutrophil # 4.66 X10^3/uL (2.7-7.7); Neutrophil % 88.2 % (47-70); POSITIVE COUNT YES; POSITIVE DIFFERENTIAL YES; POSITIVE MORPHOLOGY YES; Platelet Count 71 K/mm3 (150-450); RBC Distribution Width CV 20.6 % (11.6-14.6); RBC Distribution Width SD 82.8 fl (35.1-43.9); Red Blood Count 2.07 M/mm3 (4.6-6.2); White Blood Count 5.3 K/mm3 (4.4-11.0)
[2023-04-27 19:29] LABS: Differential Indicated SCAN CRITERIA MET
[2023-04-27 19:34] LABS: International Normalized Ratio 1.5; Prothrombin Time (Protime)PT. 18.5 SECONDS (11.7-14.9)
[2023-04-27 19:35] LABS: Anion Gap 5 (5-15); BUN 74 mg/dL (7-18); BUN/Creat Ratio 11.4 RATIO (10-20); Calcium,Total 8.2 mg/dL (8.5-10.1); Chloride 102 mmol/L (98-107); Creatinine, Serum 6.49 mg/dL (0.70-1.30); EST Glomerular Filtration Rate 9 mL/min (>60); Est Glom Filt Rate - Afr Amer 11 mL/min (>60); Glucose 223 mg/dL (74-106); Potassium 3.9 mmol/L (3.5-5.1); Sodium Level 137 mmol/L (136-145)
[2023-04-27 19:41] VITALS: BP 101/63; PULSE 71; RESP 15; O2SAT 100; BMI 31.8
[2023-04-27 19:41] LABS: Differential Comment SCANNED
--- NOTE | 2023-04-27 21:00 | EDS_ITS ---
HPI History of Present Illness Chief Complaint: Abn Labs Informant: patient Onset/Context/Timing Onset: Yesterday Context: Gradual Onset Timing: Continuous Quality: Dizziness, fatigue Location: Generalized Worsened by: Activity Relieved by: Rest Narrative Narrative: Patient presents with anemia and dyspnea with exertion that became worse yesterday. Patient states he feels dizzy and fatigued. Patient states that he gets out of breath when he has to get up and walking answer the phone. Patient states he has some aching in his left lower quadrant. Patient denies any melena or hematochezia. Patient has a history of chronic kidney disease and does not make any urine. Patient denies any fevers or chills. Patient denies any chest pain. Patient denies any cough. [facility] Medical History Abnormal finding on ultrasound Acute kidney injury Anemia Aortic root dilatation Atrial fibrillation Bladder cancer Bladder cancer CHF (congestive heart failure) CKD (chronic kidney disease) stage 5, GFR less than 15 ml/min Duodenal ulcer Elevated troponin Elevated troponin ESRD (end stage renal disease) ESRD (end stage renal disease) on dialysis ESRD (end stage renal disease) on dialysis Essential hypertension Hepatic cyst History of DVT (deep vein thrombosis) History of pulmonary embolism History of solitary pulmonary nodule HIT (heparin-induced thrombocytopenia) HLD (hyperlipidemia) Hyperparathyroidism Iron deficiency anemia Iron deficiency anemia Left upper chest discomfort Lower gastrointestinal bleeding Lymphoma Lymphoma Neutropenic fever Pancytopenia Paroxysmal A-fib Preop cardiovascular exam Pulmonary embolism Renal calculus Shortness of breath VTE (venous thromboembolism) Wide-complex tachycardia Home Medications carvedilol 6.25 mg tablet 3.125 mg PO BID blood pressure 04/24/17 [History Last Taken 02/28/23 11:00 3.125 mg] vitamin B complex 1 tab PO DAILY SUPPLEMENT 07/02/20 [History Last Taken 02/28/23 11:00] sucroferric oxyhydroxide 500 mg chewable tablet (Velphoro) 500 mg PO .with meals anemia 03/01/23 [History Last Taken Unknown] pantoprazole 40 mg tablet,delayed release 40 mg PO BID reflux #60 tabs 03/05/23 [Rx Last Taken Unknown] sucralfate 1 gram tablet 1 g PO 1HR_ACHS reflux #120 tabs 03/05/23 [Rx Last Taken Unknown] amiodarone 200 mg tablet 200 mg PO DAILY heart rate #30 tabs 04/04/23 [Rx Last Taken Unknown] apixaban 2.5 mg tablet (Eliquis) 2.5 mg PO BID 04/04/23 [History Last Taken Unknown] Allergy/AdvReac Type Severity Reaction Status Date / Time enoxaparin [From Lovenox] Allergy Other Verified 04/26/23 09:01 heparin Allergy Other Verified 04/26/23 09:01 aspirin AdvReac Other Verified 04/26/23 09:01 Iodinated Contrast Media AdvReac HARD ON Verified 04/27/23 18:51 KIDNEYS Family History Father Cancer lung Arrhythmia Brother Cancer Surgical History AV fistula H/O total cystectomy History of cataract extraction History of corrected cleft lip and palate History of tonsillectomy Social History household members: none Smoking Status: Former smoker how long ago did patient quit smokin alcohol intake: never substance use type: does not use caffeine: No ROS ROS ED Constitutional Constitutional ED: Denies chills or fever(s) Eyes Eyes: Denies blurry vision or change in vision ENT ENT ED: Denies rhinorrhea or sore throat Cardiovascular Cardiovascular: Denies chest pain or palpitations Respiratory/Chest Respiratory/Chest: Reports dyspnea and dyspnea on exertion; Denies cough Gastrointestinal Gastrointestinal: Reports abdominal pain; Denies nausea or vomiting Genitourinary Genitourinary ED: Denies dysuria or hematuria Musculoskeletal Musculoskeletal: Reports neck pain; Denies back pain Integumentary Denies abscess or rash Neurologic Neurologic: Denies headache(s) or weakness Allergic/Immunologic Allergic/Immunologic ED: Denies mouth swelling or urticaria EXAM Physical Exam Const Vital Signs: 04/27/23 18:49 04/27/23 19:39 04/27/23 19:41 Temperature 97.6 F L Temperature Source Temporal Pulse Rate 74 Respiratory Rate 16 Respiratory Effort Normal Non-Labored Respiratory Pattern Normal Blood Pressure 110/59 L Blood Pressure Mean 76 Blood Pressure Source Blood Pressure Position Blood Pressure Location Pulse Ox 100 100 Oxygen Delivery Method Room Air Room Air 04/27/23 19:41 04/27/23 22:00 04/27/23 23:11 Temperature 97.6 F L Temperature Source Temporal Pulse Rate 71 78 76 Respiratory Rate 15 14 16 Respiratory Effort Respiratory Pattern Blood Pressure 101/63 107/61 115/57 L Blood Pressure Mean 75 76 76 Blood Pressure Source Monitor Blood Pressure Position Semi-Fowlers Blood Pressure Location Left Arm Pulse Ox 100 100 98 Oxygen Delivery Method Room Air Room Air Room Air 04/27/23 23:14 Temperature Temperature Source Pulse Rate 75 Respiratory Rate 21 H Respiratory Effort Respiratory Pattern Blood Pressure 115/78 Blood Pressure Mean 90 Blood Pressure Source Blood Pressure Position Blood Pressure Location Pulse Ox 98 Oxygen Delivery Method Positive well nourished, well developed and obese General Appearance ED: well developed and NAD Nutritional Appearance: obese HEENT Reports moist mucous membranes Neck supple and no JVD Resp normal respiratory effort and clear to auscultation bilaterally Cardio regular rate Rhythm: abnormal rhythm irregularly irregular GI non-distended Palpation: soft and tender LLQ; Negative for guarding or rebound tenderness present Neuro oriented x3, CN's II-XII intact bilaterally and no sensory deficits noted Sensorium / Orientation: alert Motor Exam: strength 5/5 throughout Psych mental status grossly normal MDM MDM MDM Narrative Medical decision making narrative: Differential diagnosis includes anemia, diverticulitis, dehydration, electrolyte abnormality, and coagulopathy. CBC will be obtained to assess for leukocytosis and anemia. PT was INR and PTT will be obtained to assess for coagulopathy. Basic metabolic profile will be obtained to assess for electrolyte abnormality and renal function. CT scan of the abdomen pelvis will be obtained to assess for diverticulitis, bowel obstruction, perforation. Lab Data Attestation: I reviewed the patient's lab results. Lab results narrative: CBC was reviewed. Hemoglobin was 6.8 and hematocrit was 23.1. Platelets were low at 71. PT was INR and PTT were reviewed. Pro time was 18.5 and INR is 1.5. PTT was normal. Basic metabolic profile was reviewed. BUN was 74 and creatinine was 6.49. This was consistent with prior results. Labs: Laboratory Results - last 24 hr 04/27/23 04/27/23 19:07 21:20 WBC 5.3 RBC 2.07 L Hgb 6.8 L Hct 23.1 L MCV 111.6 H MCH 32.9 H MCHC 29.4 L RDW Std Deviation 82.8 H RDW Coeff of Lencho 20.6 H Plt Count 71 L MPV 10.5 Immature Gran % (Auto) 0.400 Neut % (Auto) 88.2 H Lymph % (Auto) 5.3 L Appling % (Auto) 5.7 Eos % (Auto) 0.2 Baso % (Auto) 0.2 Absolute Neuts (auto) 4.7 Absolute Lymphs (auto) 0.28 L Nucleated RBC % 0 Differential Comment SCANNED PT 18.5 H INR 1.5 APTT 33.0 Sodium 137 Potassium 3.9 Chloride 102 Carbon Dioxide 30.0 Anion Gap 5 BUN 74 H Creatinine 6.49 H Est GFR (MDRD) Af Amer 11 L Est GFR (MDRD) Non-Af 9 L BUN/Creatinine Ratio 11.4 Glucose 223 H Calcium 8.2 L Blood Type O POSITIVE Antibody Screen NEGATIVE Crossmatch See Detail Radiography Diagnostic Testing: Clinical Impression(s) from Imaging Studies Abdomen/Pelvis CT 04/27/23 21:37 IMPRESSION: Extensive colonic diverticulosis without evidence for acute diverticulitis. Stable severe chronic right hydronephrosis. Previous cystectomy with neobladder. Stable infrarenal abdominal aortic aneurysm, without evidence for leakage. Slightly distended gallbladder, packed with stones. Gallbladder wall is slightly thicker than on the prior study and ultrasound could be utilized for further evaluation if cholecystitis is suspected clinically. Electronically Signed: Sacha Dinero MD at 22:44 EST , CT scan of the abdomen pelvis was obtained. There is diverticulosis but no evidence of diverticulitis. There is no free air or free fluid. There is no acute process noted. This was interpreted by the radiologist and was also independently reviewed by myself. EKG Initial EKG: Attestation: I personally reviewed and interpreted this EKG as follows: Interpretation: Atrial Fibrillation (77), RBBB and Non-Specific ST Changes Comments: EKG was obtained. On my independent interpretation, it shows atrial fibrillation with a rate of 77. QRS interval was prolonged at 180 ms. QTc interval was slightly prolonged at 497 ms. There is left axis deviation at -68. There are nonspecific ST-T wave changes. There is a right bundle branch block pattern noted. Prior EKG tracings: available for review Prior: Unchanged (04/04/2023) Treatment and Re-Evaluation :: Blood type and crossmatch was obtained for 2 units of packed red blood cells. These will be transfused. Patient was advised of his findings. Patient preferred to be admitted to the hospital for observation for blood transfusion and then to get his dialysis tomorrow. I will discuss the case with the hospitalist for possible admission. Discussed with the hospitalist. He will admit the patient for observation. Patient and family understood and were agreeable with the plan. All questions were answered. Discharge Plan Dx/Rx/DC Orders Clinical Impression: Anemia, Atrial fibrillation, ESRD (end stage renal disease) on dialysis Disposition Disposition: Acute Care Hospital [facility]
--- NOTE | 2023-04-27 21:37 | CT_ITS ---
EXAM: CT ABDOMEN AND PELVIS WITHOUT INTRAVENOUS CONTRAST CLINICAL INDICATION: Left lower quadrant abdominal pain TECHNIQUE: Helically acquired images were obtained of the abdomen and pelvis without intravenous contrast. This CT exam was performed using one or more of the following dose reduction techniques: automated exposure control, adjustment of the mA and/or kV according to patient size, and/or use of iterative reconstruction technique. RADIATION DOSE: Total DLP: 759.76 mGy-cm. COMPARISON: Abdominal pelvic CT of 02/28/2023. FINDINGS: LOWER THORAX: Evaluation of lung bases shows findings of severe pulmonary emphysema and remote granulomatous infection. Incidental dependent atelectasis at the left lung base. Coronary artery calcification is present. No significant pericardial effusion. Minimal hiatal hernia. ABDOMEN: LIVER: Stable small subcapsular cyst within the left hepatic lobe posteriorly. GALLBLADDER AND BILE DUCTS: Gallbladder measures approximately 9.5 x 4.7 cm in diameter, and remains filled with calcified stones. Gallbladder wall is slightly thicker than on the prior study. No pericholecystic stranding. No biliary ductal dilatation or calcified common duct stones identified. PANCREAS: Unremarkable. No focal cystic mass. No findings of acute pancreatitis. SPLEEN: Unremarkable. Normal size without focal cystic or solid mass. ADRENALS: Stable benign adrenal adenomas, which require no follow-up. KIDNEYS AND URETERS: Stable severe chronic right hydronephrosis with marked thinning of the right renal cortex due to chronic obstruction. Stable simple right renal cysts which require no follow-up. Curvilinear opacity previously seen in the region of the right UVJ is no longer present. Stable linear opacity projected along the posterior wall of the mid right ureter, unchanged. Stable small cluster of suture material and/or calcifications about the mid to distal right ureter. Stable simple cyst at the left renal upper pole, which requires no follow-up. Left renal vascular calcification. No left-sided hydronephrosis. Both ureters join into a single ureter which empties into a neobladder. STOMACH AND BOWEL: Stomach is filled with ingested particulate matter. No gastric mural thickening or periduodenal inflammatory changes. No findings of small bowel obstruction. Suture material again noted bilaterally with a small bowel within the right lower quadrant. Extensive colonic diverticulosis is present, without evidence for acute diverticulitis. PELVIS: APPENDIX: Normal. No evidence of acute appendicitis. BLADDER: Neobladder, which is nearly empty. REPRODUCTIVE: Prostate gland is not visualized. ABDOMEN and PELVIS: INTRAPERITONEAL SPACE: Unremarkable. No ascites or other fluid collection. No free air. BONES/JOINTS: Large flowing osteophytes about the lower thoracic disc spaces. Lumbar facet arthritis. No acute osseous abnormality. No suspicious lytic or blastic abnormality. SOFT TISSUES: Unremarkable. No discrete abdominal or pelvic wall hernia. VASCULATURE: Calcific abdominal aorta and its branches. Stable focal aneurysm of the infrarenal abdominal aorta which measures up to 3.2 cm in AP diameter. No para-aortic stranding or retroperitoneal fluid. Extensive atherosclerotic vascular calcification. Calcified plaques cause greater than 50% stenosis of the right external iliac artery and subtotal occlusion of the proximal right SFA. Calcified plaques cause severe stenosis of the proximal left SFA with subtotal to complete occlusion of the more distal left SFA. IVC filter remains in place. One prong of the IVC filter is again seen to protrude into the anterior aspect of the L3 vertebral body, with surrounding sclerosis indicating this is a chronic finding. LYMPH NODES: Unremarkable. No para-aortic adenopathy. CT/Abdomen/Pelvis without Cont IMPRESSION: Extensive colonic diverticulosis without evidence for acute diverticulitis. Stable severe chronic right hydronephrosis. Previous cystectomy with neobladder. Stable infrarenal abdominal aortic aneurysm, without evidence for leakage. Slightly distended gallbladder, packed with stones. Gallbladder wall is slightly thicker than on the prior study and ultrasound could be utilized for further evaluation if cholecystitis is suspected clinically. Electronically Signed: Sacha Dinero MD at 22:44 EST ,
[2023-04-27 22:00] VITALS: BP 107/61; PULSE 78; RESP 14; O2SAT 100
[2023-04-27 23:11] VITALS: BP 115/57; PULSE 76; RESP 16; TEMP 36.4; O2SAT 98
[2023-04-27 23:14] VITALS: BP 115/78; PULSE 75; RESP 21; O2SAT 98
[2023-04-27 23:26] VITALS: BP 113/64; PULSE 79; RESP 15; TEMP 36.4; O2SAT 99
--- NOTE | 2023-04-27 23:41 | PCM.HP.STD ---
[facility] - General General Date of Admission: 04/28/23 Date of Service: 04/27/23 Chief Complaint: Dizziness, fatigue and hemoglobin of 6.9 at dialysis. HPI Narrative RIA MARIANO, is a 77 M with a past medical history of essential hypertension, hyperlipidemia, end-stage renal disease on hemodialysis (Tuesday, , Tuesday) with patient anuric - followed by Dr. Sonia He of nephrology, chronic multifactorial anemia; on Epogen, history of DVT/PE, paroxysmal atrial fibrillation; on apixaban and amiodarone, history of wide-complex tachycardia, history of lymphoma, history of hyperparathyroidism, history of CHF, history of bladder cancer and history of peptic ulcer disease with associated blood loss requiring cauterization with patient still on sucralfate and pantoprazole who presents to [facility] ER complaining of dizziness, fatigue and a hemoglobin of 6.9 at dialysis. Mr. Mariano reports his symptoms began yesterday with dyspnea on exertion and a constant feeling of dizziness and fatigue that was worse with activity with patient then instructed by his tassel snipper to come to the ER to be transfused. He also admits to some aching pain in his left lower quadrant but this was mild to moderate and is not present at this time. He denies associated fever, chills, nausea, vomiting, melena or hematochezia. In the ER he was noted to have a hemoglobin of 6.8 g/dL present on admission consistent with [id number] multifactorial anemia requiring transfusion with CT this admission showing extensive diverticulosis without evidence of diverticulitis. He is also scheduled for hemodialysis in the a.m. he was then admitted to the CDU under observation status for a stay that is expected to be less than 48 hours. [facility] Medical History Abnormal finding on ultrasound Acute kidney injury Anemia Aortic root dilatation Atrial fibrillation Bladder cancer Bladder cancer CHF (congestive heart failure) CKD (chronic kidney disease) stage 5, GFR less than 15 ml/min Duodenal ulcer Elevated troponin Elevated troponin ESRD (end stage renal disease) ESRD (end stage renal disease) on dialysis ESRD (end stage renal disease) on dialysis Essential hypertension Hepatic cyst History of DVT (deep vein thrombosis) History of pulmonary embolism History of solitary pulmonary nodule HIT (heparin-induced thrombocytopenia) HLD (hyperlipidemia) Hyperparathyroidism Iron deficiency anemia Iron deficiency anemia Left upper chest discomfort Lower gastrointestinal bleeding Lymphoma Lymphoma Neutropenic fever Pancytopenia Paroxysmal A-fib Preop cardiovascular exam Pulmonary embolism Renal calculus Shortness of breath VTE (venous thromboembolism) Wide-complex tachycardia Home Medications carvedilol 6.25 mg tablet 3.125 mg PO BID blood pressure 04/24/17 [History Last Taken 02/28/23 11:00 3.125 mg] vitamin B complex 1 tab PO DAILY SUPPLEMENT 07/02/20 [History Last Taken 02/28/23 11:00] sucroferric oxyhydroxide 500 mg chewable tablet (Velphoro) 500 mg PO .with meals anemia 03/01/23 [History Last Taken Unknown] pantoprazole 40 mg tablet,delayed release 40 mg PO BID reflux #60 tabs 03/05/23 [Rx Last Taken Unknown] sucralfate 1 gram tablet 1 g PO 1HR_ACHS reflux #120 tabs 03/05/23 [Rx Last Taken Unknown] amiodarone 200 mg tablet 200 mg PO DAILY heart rate #30 tabs 04/04/23 [Rx Last Taken Unknown] apixaban 2.5 mg tablet (Eliquis) 2.5 mg PO BID 04/04/23 [History Last Taken Unknown] Allergy/AdvReac Type Severity Reaction Status Date / Time enoxaparin [From Lovenox] Allergy Other Verified 04/26/23 09:01 heparin Allergy Other Verified 04/26/23 09:01 aspirin AdvReac Other Verified 04/26/23 09:01 Iodinated Contrast Media AdvReac HARD ON Verified 04/27/23 18:51 KIDNEYS Family History Father Cancer lung Arrhythmia Brother Cancer Surgical History AV fistula H/O total cystectomy History of cataract extraction History of corrected cleft lip and palate History of tonsillectomy Social History household members: none Smoking Status: Former smoker how long ago did patient quit smokin alcohol intake: never substance use type: does not use caffeine: No ROS ROS Narrative Review of systems: Constitutional: Patient denies fevers or chills Eyes: Patient denies blurry vision or change in vision ENT: Patient denies runny nose or sore throat Cardiovascular: Patient denies chest pain or palpitations Respiratory: Patient admits to dyspnea on exertion but denies cough Gastrointestinal: Patient reports intermittent left lower quadrant abdominal pain that is not present at this time; he denies nausea or vomiting Genitourinary: Patient is anuric Musculoskeletal: Patient admits to neck pain but denies back pain Integumentary: Patient denies abscess or rash of the skin Neurologic: Patient denies headache or focal neurologic deficits Allergic: Patient denies mild swelling or urticaria 14 point review systems otherwise negative except for positives noted above in HPI. Vital Signs Vital Signs Vital Signs: 04/27/23 18:49 04/27/23 19:39 04/27/23 19:41 Temperature 97.6 F L Temperature Source Temporal Pulse Rate 74 Respiratory Rate 16 Respiratory Effort Normal Non-Labored Respiratory Pattern Normal Blood Pressure 110/59 L Blood Pressure Mean 76 Blood Pressure Source Blood Pressure Position Blood Pressure Location Pulse Ox 100 100 Oxygen Delivery Method Room Air Room Air 04/27/23 19:41 04/27/23 22:00 04/27/23 23:11 Temperature 97.6 F L Temperature Source Temporal Pulse Rate 71 78 76 Respiratory Rate 15 14 16 Respiratory Effort Respiratory Pattern Blood Pressure 101/63 107/61 115/57 L Blood Pressure Mean 75 76 76 Blood Pressure Source Monitor Blood Pressure Position Semi-Fowlers Blood Pressure Location Left Arm Pulse Ox 100 100 98 Oxygen Delivery Method Room Air Room Air Room Air 04/27/23 23:14 04/27/23 23:26 Temperature 97.5 F L Temperature Source Temporal Pulse Rate 75 79 Respiratory Rate 21 H 15 Respiratory Effort Respiratory Pattern Blood Pressure 115/78 113/64 Blood Pressure Mean 90 80 Blood Pressure Source Monitor Blood Pressure Position Semi-Fowlers Blood Pressure Location Left Arm Pulse Ox 98 99 Oxygen Delivery Method Room Air Weight Weight: 215 lb 4 oz Body Mass Index (BMI) 31.8 Physical Exam Const alert, oriented x3, no apparent distress, average body habitus, healthy appearing and well nourished General Appearance: cooperative HEENT normocephalic, head/scalp atraumatic, hearing grossly normal bilaterally, moist oral mucous membranes and oropharynx normal HEENT Narrative: Patient has evidence of previous cleft palate repair. Mouth: oral and palatal mucosa normal Eyes PERRL, EOMs intact bilaterally and conjunctivae normal Neck no lymphadenopathy, supple and no JVD Resp normal respiratory effort, no retractions, no use of accessory muscles and clear to auscultation bilaterally Cardio Cardio Narrative: Patient's heart is irregularly irregular. GI normal to inspection, nondistended, normoactive bowel sounds, soft to palpation, non-tender, non-distended and hepatosplenomegaly GI Narrative: Obese. Extremity normal to inspection Skin Skin Narrative: There is no evidence of rash at this time. Neuro oriented x3, CN's II-XII intact bilaterally, moves all extremities and no focal motor deficits Sensorium / Orientation: awake, alert, oriented to person, oriented to place and oriented to time Speech: speech normal Motor Exam: strength 5/5 throughout Psych affect normal Results Medical Records Data Attestation: I reviewed the patient's medical records Lab / Micro Data Attestation: I reviewed the patient's lab results. 04/27/23 19:07 04/27/23 19:07 Labs: Laboratory Results - last 24 hr 04/27/23 19:07: WBC 5.3, RBC 2.07 L, Hgb 6.8 L, Hct 23.1 L, MCV 111.6 H, MCH 32.9 H, MCHC 29.4 L, RDW Std Deviation 82.8 H, RDW Coeff of Lencho 20.6 H, Plt Count 71 L, MPV 10.5, Immature Gran % (Auto) 0.400, Neut % (Auto) 88.2 H, Lymph % (Auto) 5.3 L, [place] % (Auto) 5.7, Eos % (Auto) 0.2, Baso % (Auto) 0.2, Absolute Neuts (auto) 4.7, Absolute Lymphs (auto) 0.28 L, Nucleated RBC % 0, Differential Comment SCANNED, PT 18.5 H, INR 1.5, APTT 33.0, Sodium 137, Potassium 3.9, Chloride 102, Carbon Dioxide 30.0, Anion Gap 5, BUN 74 H, Creatinine 6.49 H, Est GFR (MDRD) Af Amer 11 L, Est GFR (MDRD) Non-Af 9 L, BUN/Creatinine Ratio 11.4, Glucose 223 H, Calcium 8.2 L 04/27/23 21:20: Blood Type O POSITIVE, Antibody Screen NEGATIVE, Crossmatch See Detail Radiology Impression Abdomen/Pelvis CT 04/27/23 21:37 IMPRESSION: Extensive colonic diverticulosis without evidence for acute diverticulitis. Stable severe chronic right hydronephrosis. Previous cystectomy with neobladder. Stable infrarenal abdominal aortic aneurysm, without evidence for leakage. Slightly distended gallbladder, packed with stones. Gallbladder wall is slightly thicker than on the prior study and ultrasound could be utilized for further evaluation if cholecystitis is suspected clinically. Electronically Signed: Sacha Dinero MD at 22:44 EST , Assessment & Plan Assessment/Plan (1) Anemia: (2) ESRD (end stage renal disease) on dialysis: PLAN: Plan 1. [id number] multifactorial anemia requiring transfusion - Admit to CDU under observation status. Continue transfusion of 2 units of packed red blood cells ordered in the ER and recheck CBC 2 hours after transfusion is completed. 2. End-stage renal disease on hemodialysis (Tuesday, , Tuesday) followed by Dr. Elaine He of the nephrology service - We will consult Dr. He to see this patient in the a.m. on rounds so his dialysis can be continued with help appreciated in advance. Patient may require a higher dose of Epogen that he is currently receiving. 3. History of peptic ulcer disease; status post cauterization with patient still on sucralfate and Protonix - Continue home medications as previous. Patient is not suspected to have active GI bleeding at this time. Nevertheless, we will Hemoccult his stools this admission. 4. Paroxysmal atrial fibrillation; on apixaban and amiodarone - Continue home medications as previous. 5. Essential hypertension - Continue home medications as previous plus give as needed IV hydralazine for systolic blood pressure greater than 160 mmHg. 6. Chronic diastolic CHF; with preserved left ventricular ejection fraction - Stable. 7. DVT prophylaxis - Patient is already on apixaban which will be continued. Total time: Approximately 45 minutes. Charges/Coding Visit Charges OBSV E&M: 23182 Observ/hosp same date L1
[2023-04-28] VITALS (18 sets, daily range): BP systolic 95–232; BP diastolic 40–76; PULSE 65–87; RESP 14–18; TEMP 36.3–36.8; O2SAT 95–100; BMI 31.3; BMI 30.9
[2023-04-28 06:07] LABS: Absolute Lymphocyte Count 0.63 X10^3/uL (0.83-4.51); Absolute Neutrophil Count 4.2 X10^3/uL (2.0-7.7); Basophil# 0.02 X10^3/uL; Basophil% 0.4 % (0-1); Eosinophil# 0.06 X10^3/uL; Eosinophils% 1.1 % (0-5); Hematocrit 27.3 % (40-54); Lymphocyte # 0.63 X10^3/ul (0.83-4.51); Lymphocyte % 11.5 % (19-41); Mean Corp Hgb Conc 29.3 g/dL (32-36); Mean Corpuscular Hgb 32.1 pg (27.0-32.0); Mean Corpuscular Volume 109.6 fL (80-94); Mean Platelet Vol. 10.5 fl (6.2-12.0); Monocyte% 9.2 % (0-10); NRBC Flagged by Analyzer 0 % (0-5); Neutrophil # 4.24 X10^3/uL (2.7-7.7); Neutrophil % 77.6 % (47-70); POSITIVE COUNT YES; POSITIVE MORPHOLOGY YES; Platelet Count 73 K/mm3 (150-450); RBC Distribution Width SD 92.6 fl (35.1-43.9); Red Blood Count 2.49 M/mm3 (4.6-6.2); White Blood Count 5.5 K/mm3 (4.4-11.0)
[2023-04-28 06:49] LABS: ALB/GLOB Ratio 0.9 RATIO (0.9-2.4); AST(SGOT) 8 U/L (15-37); Alanine Aminotransfer ALT/SGPT 13 U/L (16-61); Albumin, Serum 2.5 g/dL (3.2-5.0); Alkaline Phosphatase 78 U/L (45-117); Anion Gap 11 (5-15); BUN 82 mg/dL (7-18); BUN/Creat Ratio 11.9 RATIO (10-20); Calcium,Total 7.9 mg/dL (8.5-10.1); Chloride 100 mmol/L (98-107); Creatinine, Serum 6.89 mg/dL (0.70-1.30); EST Glomerular Filtration Rate 8 mL/min (>60); Est Glom Filt Rate - Afr Amer 10 mL/min (>60); Estimated Creatinine Clearance 9.12 ml/min; Globulin 2.7 g/dL (2.2-4.2); Glucose 142 mg/dL (74-106); Potassium 3.4 mmol/L (3.5-5.1); Protein, Total 5.2 g/dL (6.4-8.2); Sodium Level 138 mmol/L (136-145); Thyroid Stim Hormone (TSH) 1.54 uIU/mL (0.358-3.74)
[2023-04-28 06:52] LABS: Differential Indicated SCAN CRITERIA MET
[2023-04-28 06:55] LABS: Anisocytosis 1+; Differential Comment SCANNED; Macrocytosis 1+; Platelet Estimate MOD DEC (ADEQ)
[2023-04-28] MEDS: Sucralfate 1 GM Tablet PO ×2 (07:17→11:42)
[2023-04-28] MEDS: 0.9% Normal Saline 1,000 ML IV.SOLN. 1000 ML OPERA.SITE (08:03)
[2023-04-28] MEDS: PureFlow B 3K Dialysis Soln 1 BAG 6 BAG PF (08:04)
--- NOTE | 2023-04-28 08:11 | CON.PCM.RE_ITS ---
Assessment & Plan Assessment/Plan (1) ESRD (end stage renal disease) on dialysis: PLAN: dialysis now and TTS (2) Anemia: QUALIFIERS: Iron deficiency anemia type: chronic blood loss PLAN: 2units prbc, LUCHO with dialysis, check stool for occult blood (3) Atrial fibrillation: QUALIFIERS: Atrial fibrillation type: unspecified chronic Qualified Code(s): I48.20 - Chronic atrial fibrillation, unspecified PLAN: chronic HPI Consult Data Date of Consult: 04/28/23 HPI Narrative Reason for Consultation: ESRD HD TTS HPI Narrative: RIA MARIANO, is a 77 M who presents to ER for anemia requring blood transfusion. Hgb 6.8g with complaints of dyspnea with exertion, dizziness, fatigue. He received 2 units prbc last night. Hgb improved to 8g. Hospitalized multiple times for GI bleed requiring blood transfusion. He has been losing weight with adjustments in target wt make at chronic center when he allowed it. Currently on dialysis. Feeling better after 2units received. Denied hematochezia, melena. Mild LLQ abdominal discomfort. [facility] Medical History Abnormal finding on ultrasound Acute kidney injury Anemia Aortic root dilatation Atrial fibrillation Bladder cancer Bladder cancer CHF (congestive heart failure) CKD (chronic kidney disease) stage 5, GFR less than 15 ml/min Duodenal ulcer Elevated troponin Elevated troponin ESRD (end stage renal disease) ESRD (end stage renal disease) on dialysis ESRD (end stage renal disease) on dialysis Essential hypertension Hepatic cyst History of DVT (deep vein thrombosis) History of pulmonary embolism History of solitary pulmonary nodule HIT (heparin-induced thrombocytopenia) HLD (hyperlipidemia) Hyperparathyroidism Iron deficiency anemia Iron deficiency anemia Left upper chest discomfort Lower gastrointestinal bleeding Lymphoma Lymphoma Neutropenic fever Pancytopenia Paroxysmal A-fib Preop cardiovascular exam Pulmonary embolism Renal calculus Shortness of breath VTE (venous thromboembolism) Wide-complex tachycardia Home Medications carvedilol 6.25 mg tablet 3.125 mg PO BID blood pressure 04/24/17 [History Last Taken 02/28/23 11:00 3.125 mg] vitamin B complex 1 tab PO DAILY SUPPLEMENT 07/02/20 [History Last Taken 02/28/23 11:00] sucroferric oxyhydroxide 500 mg chewable tablet (Velphoro) 500 mg PO .with meals anemia 03/01/23 [History Last Taken Unknown] pantoprazole 40 mg tablet,delayed release 40 mg PO BID reflux #60 tabs 03/05/23 [Rx Last Taken Unknown] sucralfate 1 gram tablet 1 g PO 1HR_ACHS reflux #120 tabs 03/05/23 [Rx Last Taken Unknown] amiodarone 200 mg tablet 200 mg PO DAILY heart rate #30 tabs 04/04/23 [Rx Last Taken Unknown] apixaban 2.5 mg tablet (Eliquis) 2.5 mg PO BID 04/04/23 [History Last Taken Unknown] Allergy/AdvReac Type Severity Reaction Status Date / Time enoxaparin [From Lovenox] Allergy Other Verified 04/26/23 09:01 heparin Allergy Other Verified 04/26/23 09:01 aspirin AdvReac Other Verified 04/26/23 09:01 Iodinated Contrast Media AdvReac HARD ON Verified 04/27/23 18:51 KIDNEYS Family History Father Cancer lung Arrhythmia Brother Cancer Surgical History AV fistula H/O total cystectomy History of cataract extraction History of corrected cleft lip and palate History of tonsillectomy Social History household members: none Smoking Status: Former smoker how long ago did patient quit smokin alcohol intake: never substance use type: does not use caffeine: No ROS Constitutional Constitutional: Reports weakness; Denies chills or fever(s) Cardiovascular Cardiovascular: Reports dyspnea on exertion and irregular heart rhythm; Denies chest pain or leg edema Respiratory/Chest Respiratory/Chest: Reports dyspnea on exertion Gastrointestinal Gastrointestinal: Reports abdominal pain and anorexia; Denies diarrhea, hematemesis, hematochezia or melena Neurologic Neurologic: Denies syncope Hematologic/Lymphatic Hematologic/Lymphatic: Reports anemia and easy bleeding Physical Exam Const alert and oriented x3 Cardio Rhythm: abnormal rhythm irregularly irregular GI non-tender and non-distended Auscultation: normoactive bowel sounds Extremity no clubbing, cyanosis or edema Neuro moves all extremities Lab / Micro Data 04/28/23 05:45 04/28/23 05:45 Labs: Laboratory Results - last 24 hr 04/27/23 19:07: WBC 5.3, RBC 2.07 L, Hgb 6.8 L, Hct 23.1 L, MCV 111.6 H, MCH 32.9 H, MCHC 29.4 L, RDW Std Deviation 82.8 H, RDW Coeff of Lencho 20.6 H, Plt Count 71 L, MPV 10.5, Immature Gran % (Auto) 0.400, Neut % (Auto) 88.2 H, Lymph % (Auto) 5.3 L, [place] % (Auto) 5.7, Eos % (Auto) 0.2, Baso % (Auto) 0.2, Absolute Neuts (auto) 4.7, Absolute Lymphs (auto) 0.28 L, Nucleated RBC % 0, Differential Comment SCANNED, PT 18.5 H, INR 1.5, APTT 33.0, Sodium 137, Potassium 3.9, Chloride 102, Carbon Dioxide 30.0, Anion Gap 5, BUN 74 H, Creatinine 6.49 H, Est GFR (MDRD) Af Amer 11 L, Est GFR (MDRD) Non-Af 9 L, BUN/Creatinine Ratio 11.4, Glucose 223 H, Calcium 8.2 L 04/27/23 21:20: Blood Type O POSITIVE, Antibody Screen NEGATIVE, Crossmatch See Detail 04/28/23 05:45: WBC 5.5, RBC 2.49 L, Hgb 8.0 L, Hct 27.3 L, MCV 109.6 H, MCH 32.1 H, MCHC 29.3 L, RDW Std Deviation 92.6 H, RDW Coeff of [place]cho 24.0 H, Plt Count 73 L, MPV 10.5, Immature Gran % (Auto) 0.200, Neut % (Auto) 77.6 H, Lymph % (Auto) 11.5 L, [place] % (Auto) 9.2, Eos % (Auto) 1.1, Baso % (Auto) 0.4, Absolute Neuts (auto) 4.2, Absolute Lymphs (auto) 0.63 L, Nucleated RBC % 0, Differential Comment SCANNED, Platelet Estimate MOD DEC, Anisocytosis 1+, Macrocytosis 1+, Sodium 138, Potassium 3.4 L, Chloride 100, Carbon Dioxide 27.0, Anion Gap 11, BUN 82 H, Creatinine 6.89 H, Estim Creat Clear Calc 9.12, Est GFR (MDRD) Af Amer 10 L, Est GFR (MDRD) Non-Af 8 L, BUN/Creatinine Ratio 11.9, Glucose 142 H, Calcium 7.9 L, Total Bilirubin 0.80, AST 8 L, ALT 13 L, Alkaline Phosphatase 78, Total Protein 5.2 L, Albumin 2.5 L, Globulin 2.7, Albumin/Globulin Ratio 0.9, TSH 1.54 Radiology Impression Abdomen/Pelvis CT 04/27/23 21:37 IMPRESSION: Extensive colonic diverticulosis without evidence for acute diverticulitis. Stable severe chronic right hydronephrosis. Previous cystectomy with neobladder. Stable infrarenal abdominal aortic aneurysm, without evidence for leakage. Slightly distended gallbladder, packed with stones. Gallbladder wall is slightly thicker than on the prior study and ultrasound could be utilized for further evaluation if cholecystitis is suspected clinically. Electronically Signed: Sacha Dinero MD at 22:44 EST ,
[2023-04-28] MEDS: Pantoprazole Sodium 40 MG Tablet PO (11:42)
[2023-04-28] MEDS: Carvedilol 3.125 MG TABLET PO (11:42)
[2023-04-28] MEDS: Vitamin B Comp W-C Capsule 1 CAP PO (11:42)
[2023-04-28] MEDS: Amiodarone 200 MG Tablet PO (11:42)
[2023-04-28] MEDS: APIXABAN 2.5 MG TABLET (WCH) PO (11:43)
--- NOTE | 2023-04-28 11:59 | DCINST_ITS ---
Discharge Instructions Diet Discharge Diet: Renal Diet Activity Discharge Activity: Return to Normal Activity Weight Bearing Status: Full weight bearing Follow Up Care Test Results: Test results from this visit will be discussed in further detail at your follow- up appointment, if applicable. Discharge Plan Admission Admit Date/Time: 04/28/23 00:01 Primary Reason for Your Visit: anemia Attending Provider: River Mejia Primary Care Provider: Martin Nunez Consulting Providers: Sonia He; Isaias Mitchell Discharge Orders/Prescriptions Prescriptions: Continued Eliquis 2.5 mg tablet 2.5 mg PO BID carvedilol 6.25 MG tablet 3.125 mg PO BID vitamin B complex 1 EACH tablet 1 tab PO DAILY Velphoro 500 mg tablet,chewable 500 mg PO .with meals pantoprazole 40 mg Tablet,Delayed Release (Dr/Ec) 40 mg PO BID Qty: 60 1RF Rx Instructions: Take twice daily for 8 weeks then will decrease to daily sucralfate 1 gram Tablet 1 g PO 1HR_ACHS Qty: 120 0RF amiodarone 200 mg tablet 200 mg PO DAILY Qty: 30 11RF Rx Instructions: Twice daily for 7 days then decrease to 1 tablet daily Referrals / Follow Up: Martin Nunez DO [Primary Care Provider] - See Referral Note (in one month) Disposition Disposition (needs filled in before D/C Order can be placed): Home, Self Care
--- NOTE | 2023-04-28 12:04 | DS.PCM_ITS ---
Providers Date of Admission: 04/28/23 Date of Discharge: 04/28/23 Primary Care Physician: Dr. Martin Nunez, Consultations 04/28/23 00:03 Consult: Nephrology Routine Consulting Provider: Sonia He Reason for Consult: End-stage renal disease on hemodialysis EMERGENT Consult: No MD Notified: Yes Date Notified: 04/28/23 Time Notified: 06:32 Method of Notification: Text Reason For Visit: SYMPTOMATIC ANEMIA REQUIRING TRANSFUSION IN DIALYS Diagnosis Discharge Diagnosis (1) ESRD (end stage renal disease) on dialysis: Status: Acute Code(s): N18.6 - End stage renal disease; Z99.2 - Dependence on renal dialysis (2) Anemia: Status: Acute Code(s): D64.9 - Anemia, unspecified Qualifiers: Iron deficiency anemia type: chronic blood loss (3) Atrial fibrillation: Status: Acute Code(s): I48.91 - Unspecified atrial fibrillation Qualifiers: Atrial fibrillation type: unspecified chronic Qualified Code(s): I48.20 - Chronic atrial fibrillation, unspecified Plan 1. Acute on chronic anemia-etiology unclear-requiring blood transfusion #2 end-stage renal disease #3 paroxysmal atrial fibrillation #4 essential hypertension Medications at Discharge Home Medications carvedilol 6.25 mg tablet 3.125 mg PO BID blood pressure 04/24/17 vitamin B complex 1 tab PO DAILY SUPPLEMENT 07/02/20 sucroferric oxyhydroxide 500 mg chewable tablet (Velphoro) 500 mg PO .with meals anemia 03/01/23 pantoprazole 40 mg tablet,delayed release 40 mg PO BID reflux #60 tabs 03/05/23 sucralfate 1 gram tablet 1 g PO 1HR_ACHS reflux #120 tabs 03/05/23 amiodarone 200 mg tablet 200 mg PO DAILY heart rate #30 tabs 04/04/23 apixaban 2.5 mg tablet (Eliquis) 2.5 mg PO BID blood thinner 04/04/23 Hospital Course Operations None Procedures Dialysis Summary of Care Provided Minutes Spent on Discharge: 30 Hospital Course: This 77-year-old white male presented to the emergency room at [facility] with complaints of dizziness fatigue and a low hemoglobin of 6.9 at dialysis. Work-up in the emergency room included a CBC which revealed a hemoglobin of 6.8. Patient was being treated for chronic anemia with Epogen as an outpatient. Patient was placed in observation status on PCU, he underwent dialysis and was given 2 units of packed red blood cells. On 04/28/2023, patient was seen and examined: On examination he appeared in good health and spirits. Vital signs as documented. Skin warm and dry and without overt rashes. Neck without JVD, neck was supple, trachea midline, thyroid was normal. Lungs clear bilaterally, normal air movement was noted. Heart exam notable for regular rhythm, normal sounds and absence of murmurs, rubs or gallops. Abdomen unremarkable and without evidence of organomegaly, masses, or abdominal aortic enlargement. Bowel sounds are present, abdomen is not distended. Extremities nonedematous, no cyanosis was noted, no clubbing was noted. Neuro: Cranial nerves II through XII are grossly intact, no focal motor deficits were noted, sensation to light touch and pinprick intact, motor exam 5/5 throughout. Psych: Patient is alert and oriented x3, he does not appear anxious or depressed, he does not appear agitated. 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 Weight / BMI Weight Weight: 95.1 kg Body Mass Index (BMI) 30.9 ABG / Lab / Microbiology Data 04/28/23 05:45 04/28/23 05:45 Laboratory: Laboratory Results - last 24 hr 04/27/23 19:07: WBC 5.3, RBC 2.07 L, Hgb 6.8 L, Hct 23.1 L, MCV 111.6 H, MCH 32.9 H, MCHC 29.4 L, RDW Std Deviation 82.8 H, RDW Coeff of Lencho 20.6 H, Plt Count 71 L, MPV 10.5, Immature Gran % (Auto) 0.400, Neut % (Auto) 88.2 H, Lymph % (Auto) 5.3 L, [place] % (Auto) 5.7, Eos % (Auto) 0.2, Baso % (Auto) 0.2, Absolute Neuts (auto) 4.7, Absolute Lymphs (auto) 0.28 L, Nucleated RBC % 0, Differential Comment SCANNED, PT 18.5 H, INR 1.5, APTT 33.0, Sodium 137, Potassium 3.9, Chloride 102, Carbon Dioxide 30.0, Anion Gap 5, BUN 74 H, Creatinine 6.49 H, Est GFR (MDRD) Af Amer 11 L, Est GFR (MDRD) Non-Af 9 L, BUN/Creatinine Ratio 11.4, Glucose 223 H, Calcium 8.2 L 04/27/23 21:20: Blood Type O POSITIVE, Antibody Screen NEGATIVE, Crossmatch See Detail 04/28/23 05:45: WBC 5.5, RBC 2.49 L, Hgb 8.0 L, Hct 27.3 L, MCV 109.6 H, MCH 32.1 H, MCHC 29.3 L, RDW Std Deviation 92.6 H, RDW Coeff of Lencho 24.0 H, Plt Count 73 L, MPV 10.5, Immature Gran % (Auto) 0.200, Neut % (Auto) 77.6 H, Lymph % (Auto) 11.5 L, [place] % (Auto) 9.2, Eos % (Auto) 1.1, Baso % (Auto) 0.4, Absolute Neuts (auto) 4.2, Absolute Lymphs (auto) 0.63 L, Nucleated RBC % 0, Differential Comment SCANNED, Platelet Estimate MOD DEC, Anisocytosis 1+, Macrocytosis 1+, Sodium 138, Potassium 3.4 L, Chloride 100, Carbon Dioxide 27.0, Anion Gap 11, BUN 82 H, Creatinine 6.89 H, Estim Creat Clear Calc 9.12, Est GFR (MDRD) Af Amer 10 L, Est GFR (MDRD) Non-Af 8 L, BUN/Creatinine Ratio 11.9, Glucose 142 H, Calcium 7.9 L, Total Bilirubin 0.80, AST 8 L, ALT 13 L, Alkaline Phosphatase 78, Total Protein 5.2 L, Albumin 2.5 L, Globulin 2.7, Albumin/Globulin Ratio 0.9, TSH 1.54 Radiography Diagnostic Testing: Radiology Impression Abdomen/Pelvis CT 04/27/23 21:37 IMPRESSION: Extensive colonic diverticulosis without evidence for acute diverticulitis. Stable severe chronic right hydronephrosis. Previous cystectomy with neobladder. Stable infrarenal abdominal aortic aneurysm, without evidence for leakage. Slightly distended gallbladder, packed with stones. Gallbladder wall is slightly thicker than on the prior study and ultrasound could be utilized for further evaluation if cholecystitis is suspected clinically. Electronically Signed: Sacha Dinero MD at 22:44 EST , D/C Instructions Discharge Diet: Renal Diet Weight Bearing Status: Full weight bearing Meaningful Use Info Meaningful Use Diagnoses (Choose all that apply): None applicable Discharge Plan Admission Admit Date/Time: 04/28/23 00:01 Primary Reason for Your Visit: anemia Attending Provider: River Mejia Primary Care Provider: Martin Nunez Consulting Providers: Sonia He; Isaias Mitchell Discharge Orders/Prescriptions Prescriptions: Continued Eliquis 2.5 mg tablet 2.5 mg PO BID carvedilol 6.25 MG tablet 3.125 mg PO BID vitamin B complex 1 EACH tablet 1 tab PO DAILY Velphoro 500 mg tablet,chewable 500 mg PO .with meals pantoprazole 40 mg Tablet,Delayed Release (Dr/Ec) 40 mg PO BID Qty: 60 1RF Rx Instructions: Take twice daily for 8 weeks then will decrease to daily sucralfate 1 gram Tablet 1 g PO 1HR_ACHS Qty: 120 0RF amiodarone 200 mg tablet 200 mg PO DAILY Qty: 30 11RF Rx Instructions: Twice daily for 7 days then decrease to 1 tablet daily Referrals / Follow Up: Martin Nunez DO [Primary Care Provider] - See Referral Note (in one month) Disposition Disposition (needs filled in before D/C Order can be placed): Home, Self Care Charges/Coding Visit Charges Inpatient E&M: 94023 Disch Hosp
--- NOTE | 2023-04-28 14:38 | CASEMGMT ---
Patient has order for discharge. RN CM in to discuss needs at discharge. Patient states his son helps him and denies needs at discharge. Patient had no further questions or concerns.
--- NOTE | 2023-04-28 14:40 | PHA.DC.MR.R ---
Pharmacy [place] Med Reconciliation Pharmacy Service has performed discharge medication reconciliation for this patient. No new medications at time of discharge review. Medications reviewed are from previously reported home medications. The patient's discharge medication list was reviewed for discrepancies and discrepancies were resolved. Medications at Discharge Home Medications carvedilol 6.25 mg tablet 3.125 mg PO BID blood pressure 04/24/17 vitamin B complex 1 tab PO DAILY SUPPLEMENT 07/02/20 sucroferric oxyhydroxide 500 mg chewable tablet (Velphoro) 500 mg PO .with meals anemia 03/01/23 pantoprazole 40 mg tablet,delayed release 40 mg PO BID reflux #60 tabs 03/05/23 sucralfate 1 gram tablet 1 g PO 1HR_ACHS reflux #120 tabs 03/05/23 amiodarone 200 mg tablet 200 mg PO DAILY heart rate #30 tabs 04/04/23 apixaban 2.5 mg tablet (Eliquis) 2.5 mg PO BID blood thinner 04/04/23
== END 2023-04-28 12:04 | disposition home or self-care (01) ==
LOC: ED 23:11 → PCU 23:56
PROVIDERS: Admitting Provider Internal Medicine; Emergency Provider Emergency Medicine; PCP Student in an Organized Health Care Education/Training Program; Visit Provider Internal Medicine
DX: D50.0 Iron deficiency anemia secondary to blood loss (chronic) (principal); I13.2 Hypertensive heart and chronic kidney disease with heart failure and with stage 5 chronic kidney disease, or end stage renal disease; Z99.2 Dependence on renal dialysis; I50.32 Chronic diastolic (congestive) heart failure; N18.6 End stage renal disease; I48.0 Paroxysmal atrial fibrillation; Z87.891 Personal history of nicotine dependence; Z79.01 Long term (current) use of anticoagulants; Z79.82 Long term (current) use of aspirin; E78.5 Hyperlipidemia, unspecified; Z79.899 Other long term (current) drug therapy
CPT/HCPCS: 36415; 36430; 36591; 74176; 80048; 80053; 84443; 85025; 85610; 85730; 86850; 86900; 86901; 86920; 86922; 90937; 93005; 96374; 97802; 99221; 99285; J7030; J7040; P9016; P9040; A4216; G0257; G0378; J0885

== ENCOUNTER → 2023-05-03 | Outpatient (CLI) | payer MEDICARE, BC, SELFPAY ==
--- NOTE | 2023-05-03 08:04 | CT_ITS ---
STUDY: CTA OF THE ABDOMINAL AORTA AND BILATERAL LOWER EXTREMITIES REASON FOR EXAM: Male, 77 years old. L toe ulceration with atherosclerosis RADIATION DOSAGE (If Supplied By Facility): CTDIvol = ( 8.73 ) mGy, DLP = ( 1401.93 ) mGycm TECHNIQUE: Axial CT angiography multi-detector data acquisition was obtained from the dome of the liver to the level of the ankles following intravenous administration of IV 100mL Isovue-370. Axial images and MIP images were reconstructed from the axial data set. Post-processing of the angiographic images was performed, with multiplanar reformation and 3D reconstruction. Individualized dose optimization techniques were used for this CT. TECHNICAL QUALITY: Good COMPARISON: None. Descriptors of Narrowing: None (0%) Mild (< 50%) Moderate (50-70%) Severe (70-90%) Subtotal/Total Occlusion (90-100%) Non-Evaluable (technically non-diagnostic FINDINGS: Emphysematous changes are seen at the lung bases with scarring. Coronary artery calcification. Small hiatal hernia. Fatty change in the liver Hyperplasia of both adrenal glands versus a lateral adrenal adenomas. Multiple gallstones. Inferior vena cava filter. Sigmoid diverticulosis. Multiple cysts are seen in the right kidney. Marked degree of right renal atrophy. Abdominal aorta: Calcific plaques seen throughout the abdominal aorta. No evidence of aortic aneurysm. Mural thrombus. Celiac and superior mesenteric arteries: Atherosclerotic plaque formation at the origin of the celiac and superior mesenteric arteries. Atherosclerotic calcification of the branches of the superior mesenteric artery. Inferior mesenteric artery: No demonstrated narrowing. Right renal artery(arteries): No demonstrated narrowing. Left renal artery(arteries): No demonstrated narrowing. Right common iliac artery: Atherosclerotic plaque formation without significant stenosis. Right external iliac artery: Atherosclerotic plaque formation without significant stenosis. Right internal iliac artery: No demonstrated narrowing. Left common iliac artery: Atherosclerotic calcific plaques without significant stenosis. Left external iliac artery: Atherosclerotic plaque calcification without significant stenosis. Left internal iliac artery: No demonstrated narrowing. RIGHT LOWER EXTREMITY Right common femoral artery: Atherosclerotic nonstenotic plaques. Right profundus femoris: No demonstrated narrowing. Right superficial femoral: Multiple calcific plaques throughout the entire course of the superficial femoral artery with multiple focal areas of stenosis. Right popliteal artery: Atherosclerotic calcific plaques without evidence of significant stenosis of the popliteal artery. Right tibioperoneal trunk: Calcific plaques. Right anterior tibial artery: Densely calcified plaques. Poor runoff distally. Right posterior tibial artery: Diffuse calcific plaques. Poor runoff distally. Right peroneal artery: Calcific plaques. Poor runoff distally. LEFT LOWER EXTREMITY Left common femoral artery: Nonstenotic calcific plaques. Left profundus femoris: No demonstrated narrowing. Left superficial femoral: Multiple diffuse calcified plaques without focal areas of stenosis throughout the common femoral artery. Left popliteal artery: Mildly stenotic calcific plaques. Left tibioperoneal trunk: Calcific plaques. Focal stenosis throughout the course. Left anterior tibial artery: Poor runoff distally. Left posterior tibial artery: Calcific plaques. Runoff to the level of the ankle. Left peroneal artery: No demonstrated narrowing. CT/CTA Abd w/Runoff W/WO Contrast IMPRESSION: Multiple findings as discussed above. Electronically Signed: Rd Hernandez MD at 11:02 EST ,
== END | disposition home or self-care (01) ==
LOC: CT 08:04
PROVIDERS: PCP Student in an Organized Health Care Education/Training Program; Referring Provider Physician Assistant; Visit Provider Physician Assistant
DX: I70.25 Atherosclerosis of native arteries of other extremities with ulceration (principal)
CPT/HCPCS: 75635; Q9967; A4216

== ENCOUNTER 2023-05-18 09:05 | Day surgery (SDC) | payer MEDICARE, BC, SELFPAY ==
[2023-05-18] VITALS (11 sets, daily range): BP systolic 76–118; BP diastolic 46–72; PULSE 68–85; RESP 14–20; TEMP 36.2–36.4; O2SAT 92–100; BMI 31.9
--- NOTE | 2023-05-18 09:10 | EKG12_ITS ---
Test Reason : PRE OP Blood Pressure : / mmHG Vent. Rate : 075 BPM Atrial Rate : 163 BPM P-R Int : 000 ms QRS Dur : 164 ms QT Int : 418 ms P-R-T Axes : 000 -74 260 degrees QTc Int : 466 ms Atrial fibrillation Left axis deviation Right bundle branch block Septal infarct (cited on or before 29-MAR-2023) T wave abnormality, consider lateral ischemia Abnormal ECG When compared with ECG of 27-APR-2023 19:58, Serial changes of Septal infarct Present Confirmed by JEANETTE CORRAL MD ([id number]), general expeditor PASCUAL VEGA ([id number]) on 05/20/2023 9:15:43 AM Referred By: Martin Nunez Confirmed By:JEANETTE CORRAL MD
--- NOTE | 2023-05-18 09:47 | PCM.HP.BLA ---
History and Physical Date of Admission: 05/18/23 Reason for Consultation: GI bleed HPI Narrative: RIA MARIANO, is a 77 M who presented to the hospital with GI issues on previous admission. He has a history of atrial fibrillation with diastolic heart failure, aortic root dilatation, hypertension chronic renal insufficiency on hemodialysis. While in the hospital he was noted to have some episodes of wide-complex tachycardia and his electrolytes were obtained which were noted to be fairly normal. He presented to the emergency department at [facility] on 02/28/2022 with a large amount of bright red blood per rectum. He reported it started on the same day of presentation and he complained of concomitant weakness and lightheadedness. He reported that he had had some diarrhea for 2 to 3 weeks and was placed on ciprofloxacin and Flagyl for his diarrhea. His stools were heme positive in the emergency department. He is still having ongoing loose stools but he states that the jovanni diarrhea has improved. I was consulted by the emergency department and recommended hospitalization for EGD and colonoscopy. Patient reported that his baseline hemoglobin runs around 12 at dialysis however on presentation his hemoglobin was 8.9. His Eliquis was held on presentation. He was taken for EGD and colonoscopy on 03/03/2023. EGD demonstrated a normal upper two thirds of the esophagus with grade a esophagitis at the distal portion, small hiatal hernia, erosive gastropathy with no stigmata of recent bleeding and biopsies were taken, and 3 oozing cratered duodenal ulcers with pigmented material in the duodenal bulb. The largest was 6 mm in dimension and they were treated with epi injection and coagulation for hemostasis with heater probe. Biopsies were taken here as well. Recommendations for this were Carafate 1 g p.o. 4 times daily for 4 weeks and Protonix 40 mg p.o. twice daily for 8 weeks. His colonoscopy revealed fair preparation with hemorrhoids on the perianal exam, diverticulosis of the rectosigmoid, sigmoid, descending:, Severe colitis that was biopsied and camejo ulcerative colitis in the setting of C. difficile colitis. We started him on vancomycin 125 mg 4 times daily for 2 weeks. And Entocort EC 9 mg p.o. daily as it is highly suspected that he has inflammatory bowel disease. We did obtain stool studies once 1 was able to be provided and he was antigen and PCR positive for C. difficile but his toxin was negative. Given the severe findings on his colonoscopy and issues with diarrhea we will go ahead and treat him. He was placed on vancomycin 125 mg every 6 hours and he will continue this for total of 14 days. He was restarted on his Eliquis and his hemoglobin remained stable. He did develop some wide-complex tachycardia. He had a recent echocardiogram with a normal EF. Patient presents with abdominal pain and melena for the past few days. Patient states that he noted some black stools over the last couple days. Patient states he was admitted to the hospital recently and was diagnosed with gastric ulcers. Patient states that he has continued taking his Eliquis. Patient admits to some lightheadedness that has been intermittent. Patient also admits to some intermittent dull abdominal pain. Patient states it is mainly over the left lower abdomen. Patient denies any fevers or chills. Patient also admits to some occasional shortness of breath. Patient states this is worse with any exertion. [facility] Medical History Abnormal finding on ultrasound Acute kidney injury Anemia Aortic root dilatation Atrial fibrillation Bladder cancer Bladder cancer CHF (congestive heart failure) CKD (chronic kidney disease) stage 5, GFR less than 15 ml/min Duodenal ulcer Elevated troponin Elevated troponin ESRD (end stage renal disease) ESRD (end stage renal disease) on dialysis ESRD (end stage renal disease) on dialysis Essential hypertension Hepatic cyst History of DVT (deep vein thrombosis) History of pulmonary embolism History of solitary pulmonary nodule HIT (heparin-induced thrombocytopenia) HLD (hyperlipidemia) Hyperparathyroidism Iron deficiency anemia Iron deficiency anemia Left upper chest discomfort Lower gastrointestinal bleeding Lymphoma Lymphoma Neutropenic fever Pancytopenia Paroxysmal A-fib Preop cardiovascular exam Pulmonary embolism Renal calculus Shortness of breath VTE (venous thromboembolism) Wide-complex tachycardia Home Medications carvedilol 6.25 mg tablet 3.125 mg PO BID blood pressure 04/24/17 [History Last Taken 02/28/23 11:00 3.125 mg] vitamin B complex 1 tab PO DAILY SUPPLEMENT 07/02/20 [History Last Taken 02/28/23 11:00] vitamin B complex and vitamin C no.20-folic acid 1 mg capsule (Virt-Caps) 1 cap PO DAILY vitamin #0 caps 02/23/22 [Rx Last Taken 02/28/23 11:00] ascorbic acid (vitamin C) 500 mg tablet 500 mg PO DAILY supplement 03/12/22 [History Last Taken 02/28/23] apixaban 2.5 mg tablet (Eliquis) 2.5 mg PO BID blood thinner #0 tabs 03/30/22 [Rx Last Taken 02/28/23 11:00 2.5 mg] calcitriol 0.25 mcg capsule 0.25 mcg PO DAILY supplement 07/30/22 [History Last Taken 02/28/23] sucroferric oxyhydroxide 500 mg chewable tablet (Velphoro) 500 mg PO .with meals 03/01/23 [History Last Taken Unknown] amiodarone 200 mg tablet 200 mg PO DAILY #35 tabs 03/05/23 [Rx Last Taken Unknown] budesonide 3 mg capsule,delayed,extended release 9 mg (3 x 3 mg) PO DAILY #90 ea 03/05/23 [Rx Last Taken Unknown] pantoprazole 40 mg tablet,delayed release 40 mg PO BID #60 tabs 03/05/23 [Rx Last Taken Unknown] sucralfate 1 gram tablet 1 g PO 1HR_ACHS #120 tabs 03/05/23 [Rx Last Taken Unknown] vancomycin 125 mg capsule 125 mg PO Q6H #48 caps 03/05/23 [Rx Last Taken Unknown] Allergy/AdvReac Type Severity Reaction Status Date / Time enoxaparin [From Lovenox] Allergy Other Verified 02/28/23 17:05 heparin Allergy Other Verified 02/28/23 17:05 aspirin AdvReac Other Verified 02/28/23 17:05 Iodinated Contrast Media AdvReac OTHER Verified 02/28/23 17:05 [CONTRASTS] Family History Father Cancer lung ArrhythmiaBrother Cancer Surgical History AV fistula H/O total cystectomy History of cataract extraction History of corrected cleft lip and palate History of tonsillectomy Social History household members: none Smoking Status: Former smoker how long ago did patient quit smokin alcohol intake: never substance use type: does not use caffeine: No ROS Constitutional Constitutional: Reports weakness; Denies chills, fever(s) or malaise Eyes Eyes: Denies loss of vision ENT HEENT: Denies loss taste/smell Cardiovascular Cardiovascular: Denies chest pain or leg edema Respiratory/Chest Respiratory/Chest: Denies dyspnea on exertion Gastrointestinal Gastrointestinal: Reports abdominal pain, diarrhea and melena; Denies anorexia, hematemesis, hematochezia or nausea Genitourinary Genitourinary: Reports oliguria Psychiatric Psychiatric: Denies confusion or depression Hematologic/Lymphatic Hematologic/Lymphatic: Reports anemia Physical Exam Const alert and oriented x3 Resp clear to auscultation bilaterally Cardio Rhythm: abnormal rhythm irregularly irregular GI non-tender and non-distended Auscultation: normoactive bowel sounds Palpation: soft Extremity no clubbing, cyanosis or edema General Extremity: AV fistula Neuro CN's II-XII intact bilaterally Psych cooperative Lab / Micro Data 03/22/23 05:05 03/22/23 05:05 Labs: Laboratory Results - last 24 hr 03/21/23 19:22: WBC 17.8 H, RBC 2.00 L, Hgb 6.9 L, Hct 22.2 L, MCV 111.0 H, MCH 34.5 H, MCHC 31.1 L, RDW Std Deviation 77.7 H, RDW Coeff of Lencho 19.5 H, Plt Count 101 L, MPV 10.7, Immature Gran % (Auto) 1.200 H, Neut % (Auto) 93.7 H, Lymph % (Auto) 1.5 L, [place] % (Auto) 3.5, Eos % (Auto) 0.0, Baso % (Auto) 0.1, Absolute Neuts (auto) 16.7 H, Absolute Lymphs (auto) 0.26 L, Nucleated RBC % 0, Differential Comment SCANNED, Hypochromasia 1+, Anisocytosis 2+, Microcytosis 1+, Macrocytosis 1+, PT 24.5 H, INR 2.2, APTT 56.7 H, Sodium 139, Potassium 3.5, Chloride 101, Carbon Dioxide 27.0, Anion Gap 11, BUN 85 H, Creatinine 7.33 H, Estim Creat Clear Calc 8.57, Est GFR (MDRD) Af Amer 9 L, Est GFR (MDRD) Non-Af 8 L, BUN/Creatinine Ratio 11.6, Glucose 249 H, Calcium 8.1 L, Troponin I High Sens 274 H*, Blood Type O POSITIVE, Antibody Screen NEGATIVE, Crossmatch See Detail 03/22/23 05:05: WBC 15.8 H, RBC 2.61 L, Hgb 8.7 L, Hct 27.1 L, MCV 103.8 H D, MCH 33.3 H, MCHC 32.1, RDW Std Deviation 71.7 H, RDW Coeff of Lencho 19.4 H, Plt Count 102 L, MPV 10.5, Immature Gran % (Auto) 1.400 H, Neut % (Auto) 92.0 H, Lymph % (Auto) 2.0 L, [place] % (Auto) 4.5, Eos % (Auto) 0.0, Baso % (Auto) 0.1, Absolute Neuts (auto) 14.5 H, Absolute Lymphs (auto) 0.31 L, Nucleated RBC % 0, Anisocytosis 2+, Macrocytosis 2+, Sodium 140, Potassium 3.7, Chloride 104, Carbon Dioxide 26.0, Anion Gap 10, BUN 89 H, Creatinine 7.86 H*, Estim Creat Clear Calc 8.00, Est GFR (MDRD) Af Amer 9 L, Est GFR (MDRD) Non-Af 7 L, BUN/Creatinine Ratio 11.3, Glucose 177 H, Calcium 8.3 L Assessment & Plan Assessment/Plan (1) Acute blood loss anemia (ABLA): (2) Acute GI bleeding: (3) Hematochezia: (4) Acute on chronic anemia: (5) Elevated troponin: (6) Hypokalemia: (7) Pancolitis: (8) Clostridium difficile infection: (9) Duodenal ulcer: (10) Wide-complex tachycardia: PLAN: Plan GI bleed secondary to duodenal ulcers x3 -EGD performed on 03/03/2023 showed normal upper third of the esophagus with grade a esophagitis, small hiatal hernia, erosive gastropathy with no stigmata of bleeding that was biopsies and 3 oozing duodenal ulcers with pigmented material that were injected and treated with heater probe -Continue Protonix 40 mg p.o. twice daily for 8 weeks and then transition to daily -Continue Carafate 1 g 4 times daily -We will be performing a repeat upper endoscopy to evaluate his upper GI tract to see if the restarting of his Eliquis because recurrent GI bleeding. Diffuse colitis -Colonoscopy performed on 03/03/2023 and showed fair prep with hemorrhoids on perianal exam, diverticulosis in the rectosigmoid and sigmoid colon/descending colon and diffuse severe inflammatory colitis that was camejo ulcerative from the rectum to the cecum -C. difficile was positive for PCR and antigen but negative for toxin however with diarrhea and colonoscopy findings we will go ahead and treat with vancomycin 125 mg every 6 for 14 days--> day 1 of 14 -IBD work-up has been initiated as well as with his pancolitis Crohn's disease is highly suspected -Continue budesonide 9 mg daily -Discussed with gastroenterology and will have patient follow-up after discharge Acute on chronic anemia with chronic anemia secondary to chronic renal disease -Chronic anemia due to end-stage renal disease on HD -Transfuse for hemoglobin less than 7 -Hemoglobin is 8.3 today -Continue home iron supplementation -Procrit per nephrology I have examined the patient and the H&P has been reviewed. There are no clinical changes since date of exam.
[2023-05-18] MEDS: 0.9% Normal Saline (500mL Bag) 500 ML 15 ML IV (10:11)
--- NOTE | 2023-05-18 10:30 | EGD_PTH ---
PATIENT: RIA MARIANO LOC: EN U#:[id number] AGE/SX: 77/M ROOM: RE05/18/[address]: Dr. Wolfgagn Garay DO : 1945 BED: DIS: 05/18/2023 SPEC #: [id number] RECD: 05/18/23 13:57 STATUS: DAKOTAH GILSON #: [id number] PERRY: 05/18/23 10:[address]: Wolfgang Garay DEPT: SURGICAL PATHOLOGY RECD BY: Connie Martinez ENTERED: 05/19/23 10:48 SP TYPE: EGD BIOPSY OT DR: Dr. Martin Nunez DO Tissues: Duodenum, NOS Procedures: Surgery Specimen Level IV HEADER OPERATION: Colonoscopy, EGD with biopsy, Electrohemostasis, CLIP PRE-OP DIAGNOSIS: GI bleed secondary to duodenal ulcers x3, diffuse colitis, acute on chronic anemia with chronic anemia secondary to chronic renal disease TISSUE SUBMITTED: Duodenal bulb polyp biopsy MICROSCOPIC DIAGNOSIS Duodenal bulb polyp, biopsy: Polypoid fragment of benign duodenal mucosa. See comment. AM:jeff 05/20/2023 COMMENT Neither hyperplastic nor adenomatous change is identified. Clinical correlation is suggested. MICROSCOPIC DESCRIPTION Slides are reviewed. GROSS DESCRIPTION Received in fixative is one container labeled with the patient's name and designated duodenal bulb polyp. The specimen consists of two irregular fragments of light hernandez soft tissue that in aggregate measure 0.6 x 0.3 x 0.1 cm. The specimen is totally submitted in one cassette. / AM:jeff 05/19/2023 TC:5 CPT: 26450
--- NOTE | 2023-05-18 11:10 | OP.EGD_ITS ---
Patient Name: Espinoza Rizvi Procedure Date: 05/18/2023 10:22 AM Date of : 1945 Age: 77 Procedure: Upper GI endoscopy Indications: Iron deficiency anemia, Melena, Duodenal ulcer Providers: Wolfgang Garay DO Referring MD: Wolfgang Garay DO Medicines: Monitored Anesthesia Care Patient Profile: This is a 77 year old male. Refer to note in patient chart for documentation of history and physical. Patient has symptoms of chronic dyspepsia. Complications: No immediate complications. Procedure: Pre-Anesthesia Assessment: - Prior to the procedure, a History and Physical was performed, and patient medications and allergies were reviewed. The patient is competent. The risks and benefits of the procedure and the sedation options and risks were discussed with the patient. All questions were answered and informed consent was obtained. Patient identification and proposed procedure were verified by the physician in the pre-procedure area. Mental Status Examination: alert and oriented. Airway Examination: normal oropharyngeal airway and neck mobility. Respiratory Examination: clear to auscultation. CV Examination: normal. Prophylactic Antibiotics: The patient does not require prophylactic antibiotics. Prior Anticoagulants: The patient has taken Eliquis (apixaban), last dose was 1 day prior to procedure. ASA Grade Assessment: III - A patient with severe systemic disease. After reviewing the risks and benefits, the patient was deemed in satisfactory condition to undergo the procedure. The anesthesia plan was to use monitored anesthesia care (MAC). Immediately prior to administration of medications, the patient was re-assessed for adequacy to receive sedatives. The heart rate, respiratory rate, oxygen saturations, blood pressure, adequacy of pulmonary ventilation, and response to care were monitored throughout the procedure. The physical status of the patient was re-assessed after the procedure. After obtaining informed consent, the endoscope was passed under direct vision. Throughout the procedure, the patient's blood pressure, pulse, and oxygen saturations were monitored continuously. The Colonoscope was introduced through the mouth, and advanced to the second part of duodenum. The upper GI endoscopy was accomplished without difficulty. The patient tolerated the procedure well. Scope In: 10:34:59 AM Scope Out: 10:51:28 AM Total Procedure Duration Time 0 hours 16 minutes 29 seconds Findings: The examined esophagus was normal. A medium-sized hiatal hernia was present. The cardia and gastric fundus were normal on retroflexion. One oozing cratered duodenal ulcer with a visible vessel was found in the duodenal bulb. The lesion was 6 mm in largest dimension. Area was successfully injected with 5 mL of a 0.1 mg/mL solution of epinephrine for drug delivery. Coagulation for hemostasis using heater probe was successful. Estimated blood loss was minimal. To prevent bleeding post-intervention, two hemostatic clips were successfully placed. 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 There was no bleeding at the end of the procedure. A single 5 mm sessile polyp with no bleeding was found in the second portion of the duodenum. The polyp was removed with a cold snare. Resection and retrieval were complete. Verification of patient identification for the specimen was done. Estimated blood loss was minimal. Impression: - Normal esophagus. - Medium-sized hiatal hernia. - Oozing duodenal ulcer with a visible vessel. Injected. Treated with a heater probe. Clips were placed. 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 - No specimens collected. Recommendation: - Discharge patient to home. - Resume previous diet. - Continue present medications. - Await pathology results. Procedure Code(s): --- Professional --- 32367, 59, Esophagogastroduodenoscopy, flexible, transoral; with control of bleeding, any method 97803, Esophagogastroduodenoscopy, flexible, transoral; with removal of tumor(s), polyp(s), or other lesion(s) by snare technique 86938, 59,51, Esophagogastroduodenoscopy, flexible, transoral; with directed submucosal injection(s), any substance CPT copyright 2 [employer]. All rights reserved. The codes documented in this report are preliminary and upon supervisor shearing review may be revised to meet current compliance requirements. Wolfgang Garay DO 05/18/2023 11:10:19 AM This report has been signed electronically. Number of Addenda: 0 Note Initiated On: 05/18/2023 10:22 AM
--- NOTE | 2023-05-18 11:10 | OP.CCLET_ITS ---
05/18/2023 Martin Nunez [address] [place] [address] Re : Upper GI endoscopy procedure for Espinoza Rizvi Dear Dr. Nunez This procedure was performed on Thursday, May 18, 2023. My impressions and recommendations are as follows: Impressions : - Normal esophagus. - Medium-sized hiatal hernia. - Oozing duodenal ulcer with a visible vessel. Injected. Treated with a heater probe. Clips were placed. 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 - No specimens collected. Recommendations : - Discharge patient to home. - Resume previous diet. - Continue present medications. - Await pathology results. My findings are described in the full procedure note, which is enclosed. If I can be of further assistance, please feel free to contact me at . Sincerely, Wolfgang Garay, 05/18/2023 11:10:19 AM This report has been signed electronically.
--- NOTE | 2023-05-18 11:15 | OP.CCLET_ITS ---
05/18/2023 Martin Nunez [address] [place] [address] Re : Colonoscopy procedure for Espinoza Rizvi Dear Dr. Nunez This procedure was performed on Thursday, May 18, 2023. My impressions and recommendations are as follows: Impressions : - Preparation of the colon was poor. - Diverticulosis at the anus, in the recto-sigmoid colon, in the sigmoid colon, in the descending colon, at the splenic flexure and in the transverse colon. - Stool in the entire examined colon. - No specimens collected. Recommendations : - Discharge patient to home. - Resume previous diet. - Continue present medications. - Repeat colonoscopy in 2 months because the bowel preparation was poor. My findings are described in the full procedure note, which is enclosed. If I can be of further assistance, please feel free to contact me at . Sincerely, Wolfgang Garay, 05/18/2023 11:15:24 AM This report has been signed electronically.
--- NOTE | 2023-05-18 11:15 | OP.COLON_ITS ---
Patient Name: Espinoza Rizvi Procedure Date: 05/18/2023 10:51 AM Date of : 1945 Age: 77 Procedure: Colonoscopy Indications: Iron deficiency anemia Providers: Wolfgang Garay DO Referring MD: Wolfgang Garay DO Medicines: Monitored Anesthesia Care Patient Profile: This is a 77 year old male. Refer to note in patient chart for documentation of history and physical. Patient has symptoms of chronic dyspepsia. Last Colonoscopy: date unknown. Unable to locate last colonoscopy report. Complications: No immediate complications. Procedure: Pre-Anesthesia Assessment: - Prior to the procedure, a History and Physical was performed, and patient medications and allergies were reviewed. The patient is competent. The risks and benefits of the procedure and the sedation options and risks were discussed with the patient. All questions were answered and informed consent was obtained. Patient identification and proposed procedure were verified by the physician in the pre-procedure area. Mental Status Examination: alert and oriented. Airway Examination: normal oropharyngeal airway and neck mobility. Respiratory Examination: clear to auscultation. CV Examination: normal. Prophylactic Antibiotics: The patient does not require prophylactic antibiotics. Prior Anticoagulants: The patient has taken Eliquis (apixaban), last dose was 1 day prior to procedure. ASA Grade Assessment: III - A patient with severe systemic disease. After reviewing the risks and benefits, the patient was deemed in satisfactory condition to undergo the procedure. The anesthesia plan was to use monitored anesthesia care (MAC). Immediately prior to administration of medications, the patient was re-assessed for adequacy to receive sedatives. The heart rate, respiratory rate, oxygen saturations, blood pressure, adequacy of pulmonary ventilation, and response to care were monitored throughout the procedure. The physical status of the patient was re-assessed after the procedure. After I obtained informed consent, the scope was passed under direct vision. Throughout the procedure, the patient's blood pressure, pulse, and oxygen saturations were monitored continuously. The Colonoscope was introduced through the anus with the intention of advancing to the cecum. The scope was advanced to the hepatic flexure before the procedure was aborted. Medications were not given. The colonoscopy was performed without difficulty. The patient tolerated the procedure well. The quality of the bowel preparation was poor. Anatomical landmarks were photographed. Scope In: 10:53:13 AM Scope Out: 11:00:40 AM Total Procedure Duration Time 0 hours 7 minutes 27 seconds Findings: The perianal and digital rectal examinations were normal. Multiple small and large-mouthed diverticula were found in the anus, recto-sigmoid colon, sigmoid colon, descending colon, splenic flexure and transverse colon. Extensive amounts of stool was found in the entire colon, precluding visualization. Impression: - Preparation of the colon was poor. - Diverticulosis at the anus, in the recto-sigmoid colon, in the sigmoid colon, in the descending colon, at the splenic flexure and in the transverse colon. - Stool in the entire examined colon. - No specimens collected. Recommendation: - Discharge patient to home. - Resume previous diet. - Continue present medications. - Repeat colonoscopy in 2 months because the bowel preparation was poor. Procedure Code(s): --- Professional --- 51327, 53, Colonoscopy, flexible; diagnostic, including collection of specimen(s) by brushing or washing, when performed (separate procedure) CPT copyright 2021 [employer]. All rights reserved. The codes documented in this report are preliminary and upon welder plastic review may be revised to meet current compliance requirements. Wolfgang Garay DO 05/18/2023 11:15:24 AM This report has been signed electronically. Number of Addenda: 0 Note Initiated On: 05/18/2023 10:51 AM
--- NOTE | 2023-05-18 11:17 | SUR.PHASEI ---
PATIENT COUGHED UP TWO LARGE AMOUNTS OF GREEN TINGED THICK SPUTUM.
[2023-05-18] MEDS: 0.9% Saline Lock 10 ML Syringe IV (11:48)
== END 2023-05-18 12:32 | disposition home or self-care (01) ==
LOC: EN 09:08 → AC 09:09
PROVIDERS: PCP Student in an Organized Health Care Education/Training Program; Referring Provider Student in an Organized Health Care Education/Training Program; Visit Provider Internal Medicine Gastroenterology
PROC: 0DJD8ZZ Inspection of Lower Intestinal Tract, Via Natural or Artificial Opening Endoscopic (ICD-10-PCS; CPT 45378; principal; 2023-05-18 10:25)
DX: D62 Acute posthemorrhagic anemia (principal); I13.2 Hypertensive heart and chronic kidney disease with heart failure and with stage 5 chronic kidney disease, or end stage renal disease; Z99.2 Dependence on renal dialysis; I50.32 Chronic diastolic (congestive) heart failure; K51.00 Ulcerative (chronic) pancolitis without complications; N18.6 End stage renal disease; I47.29 Other ventricular tachycardia; K92.2 Gastrointestinal hemorrhage, unspecified; K57.30 Diverticulosis of large intestine without perforation or abscess without bleeding; R77.8 Other specified abnormalities of plasma proteins; E87.6 Hypokalemia; K44.9 Diaphragmatic hernia without obstruction or gangrene; D50.9 Iron deficiency anemia, unspecified; K31.7 Polyp of stomach and duodenum; K26.9 Duodenal ulcer, unspecified as acute or chronic, without hemorrhage or perforation; G47.30 Sleep apnea, unspecified; Z79.01 Long term (current) use of anticoagulants; Z79.899 Other long term (current) drug therapy; Z86.718 Personal history of other venous thrombosis and embolism; Z86.711 Personal history of pulmonary embolism; Z87.891 Personal history of nicotine dependence
CPT/HCPCS: 43255; 43251; 43236; 45378; J7120; 88305; 93005; J7040; A4216; J2405

== ENCOUNTER 2023-06-16 15:54 | Inpatient (IN) | payer MEDICARE, BC, SELFPAY ==
[2023-06-16 15:55] VITALS: BP 85/51; PULSE 88; RESP 16; TEMP 35.8; O2SAT 97
[2023-06-16 16:49] LABS: Absolute Lymphocyte Count 0.45 X10^3/uL (0.83-4.51); Absolute Neutrophil Count 7.3 X10^3/uL (2.0-7.7); Basophil# 0.01 X10^3/uL; Basophil% 0.1 % (0-1); Eosinophil# 0.01 X10^3/uL; Eosinophils% 0.1 % (0-5); Hematocrit 24.2 % (40-54); Hemoglobin 7.3 g/dL (13.0-16.5); Lymphocyte # 0.45 X10^3/ul (0.83-4.51); Lymphocyte % 5.2 % (19-41); Mean Corp Hgb Conc 30.2 g/dL (32-36); Mean Corpuscular Hgb 32.6 pg (27.0-32.0); Mean Platelet Vol. 10.7 fl (6.2-12.0); Monocyte# 0.77 X10^3/uL; NRBC Flagged by Analyzer 0.5 % (0-5); Neutrophil # 7.29 X10^3/uL (2.7-7.7); POSITIVE COUNT YES; POSITIVE DIFFERENTIAL YES; POSITIVE MORPHOLOGY YES; RBC Distribution Width CV 19.1 % (11.6-14.6); Red Blood Count 2.24 M/mm3 (4.6-6.2); White Blood Count 8.6 K/mm3 (4.4-11.0)
[2023-06-16 16:51] LABS: Differential Indicated SCAN CRITERIA MET; Platelet Count 47 K/mm3 (150-450)
[2023-06-16 17:01] LABS: International Normalized Ratio 1.4; Prothrombin Time (Protime)PT. 17.2 SECONDS (11.7-14.9)
[2023-06-16 17:03] LABS: AST(SGOT) 9 U/L (15-37); Alanine Aminotransfer ALT/SGPT 13 U/L (16-61); Alkaline Phosphatase 66 U/L (45-117); Anion Gap 6 (5-15); BUN 27 mg/dL (7-18); Calcium,Total 8.4 mg/dL (8.5-10.1); Chloride 102 mmol/L (98-107); Creatinine, Serum 3.39 mg/dL (0.70-1.30); EST Glomerular Filtration Rate 19 mL/min (>60); Est Glom Filt Rate - Afr Amer 23 mL/min (>60); Globulin 2.9 g/dL (2.2-4.2); Glucose 139 mg/dL (74-106); Potassium 3.8 mmol/L (3.5-5.1); Protein, Total 5.9 g/dL (6.4-8.2); Sodium Level 142 mmol/L (136-145)
[2023-06-16 17:25] LABS: Anisocytosis 2+; Differential Comment SCANNED; Macrocytosis 1+; Microcytosis 1+; Reactive Lymphocyte 1+
[2023-06-16 17:35] VITALS: BMI 32.3
--- NOTE | 2023-06-16 17:56 | ED.VIS.GI ---
HPI HPI - GI History of Present Illness Chief Complaint: GI Bleed Informant: patient and family Abdominal Pain/Flank Pain Current Severity: Mild Maximum Severity: Mild Nausea/Vomiting/Emesis GI Symptom: Negative for Nausea or Vomiting Diarrhea/Melena/Hematochezia GI Symptom: Negative for Diarrhea, Melena or Hematochezia Associated Symptoms Associated Symptoms: Negative for Dysuria or Frequency Narrative Narrative: 77-year-old male history of prior GI bleed for which she had upper and lower endoscopy and had a clip placed on his duodenal area that was bleeding. History of end-stage renal disease and dialysis. Was dialyzed today. They did a blood count today and dialysis 7.1-week ago it was 9.5 so they sent him in for evaluation. He does have known peripheral arterial disease, A-fib, prior DVT and PEs and he is on both Eliquis and Plavix. They sent him in for admission for possible GI bleed. He has not seen any gross blood or melena. Prior similar symptoms: Yes Recent Illness/Hospitalization: Yes PFSH PFS Medical History Abnormal finding on ultrasound Acute kidney injury Anemia Anemia Aortic root dilatation Arthritis Atrial fibrillation Atrial fibrillation Bladder cancer Bladder cancer Cancer Cardiology follow-up encounter (~04/04/23) CHF (congestive heart failure) CKD (chronic kidney disease) stage 5, GFR less than 15 ml/min Duodenal ulcer Elevated troponin Elevated troponin ESRD (end stage renal disease) ESRD (end stage renal disease) on dialysis ESRD (end stage renal disease) on dialysis Essential hypertension Former smoker Hepatic cyst History of DVT (deep vein thrombosis) History of echocardiogram (~06/30/22) History of GI bleed History of pulmonary embolism History of solitary pulmonary nodule History of stress test (~05/03/22) HIT (heparin-induced thrombocytopenia) HLD (hyperlipidemia) Hyperparathyroidism Iron deficiency anemia Iron deficiency anemia Left upper chest discomfort Loss of hearing Low iron Lower gastrointestinal bleeding Lymphoma Lymphoma Neutropenic fever Pancytopenia Paroxysmal A-fib Preop cardiovascular exam Pulmonary embolism Renal calculus Shortness of breath Shortness of breath on exertion Sleep apnea VTE (venous thromboembolism) Wears dentures Wears glasses Wears partial dentures Wide-complex tachycardia Home Medications carvedilol 6.25 mg tablet 3.125 mg PO BID blood pressure 04/24/17 [History Last Taken 02/28/23 11:00 3.125 mg] vitamin B complex 1 tab PO DAILY SUPPLEMENT 07/02/20 [History Last Taken 02/28/23 11:00] sucroferric oxyhydroxide 500 mg chewable tablet (Velphoro) 500 mg PO .with meals anemia 03/01/23 [History Last Taken Unknown] pantoprazole 40 mg tablet,delayed release 40 mg PO BID reflux #60 tabs 03/05/23 [Rx Last Taken Unknown] sucralfate 1 gram tablet 1 g PO 1HR_ACHS reflux #120 tabs 03/05/23 [Rx Last Taken Unknown] amiodarone 200 mg tablet 200 mg PO DAILY heart rate #30 tabs 04/04/23 [Rx Last Taken Unknown] apixaban 2.5 mg tablet (Eliquis) 2.5 mg PO BID blood thinner 04/04/23 [History Last Taken 05/15/23] Allergy/AdvReac Type Severity Reaction Status Date / Time Iodinated Contrast Media Allergy Intermediate KIDNEY Verified 06/16/23 17:35 FAILURE enoxaparin [From Lovenox] Allergy Other Verified 06/16/23 17:35 heparin Allergy Other Verified 06/16/23 17:35 aspirin AdvReac Other Verified 06/16/23 17:35 Family History Father Cancer lung Arrhythmia Brother Cancer Surgical History AV fistula H/O total cystectomy History of cataract extraction History of corrected cleft lip and palate History of tonsillectomy Social History household members: none Smoking Status: Former smoker how long ago did patient quit smokin alcohol intake: never substance use type: does not use caffeine: No ROS ROS ED ROS Narrative Denies recent illness. Review of Systems ROS Unobtainable: Denies due to encephalopathy Constitutional Constitutional ED: Denies chills or fever(s) ENT ENT ED: Denies ear pain Cardiovascular Cardiovascular: Denies chest pain Respiratory/Chest Respiratory/Chest: Denies cough Gastrointestinal Gastrointestinal: Denies abdominal pain Genitourinary Genitourinary ED: Denies dysuria Musculoskeletal Musculoskeletal: Denies arthralgias Integumentary Denies abscess Neurologic Neurologic: Denies headache(s) Psychiatric Psychiatric: Denies anxiety Endocrine Endocrinology: Denies polydipsia Hematologic/Lymphatic Hematologic/Lymphatic: Denies easy bleeding Allergic/Immunologic Allergic/Immunologic ED: Denies mouth swelling EXAM Physical Exam Narrative Exam Narrative: 77-year-old male vital signs initial triage blood pressure 85/51 currently is 102/60. He does not look septic or toxic is in no distress. His son is at bedside. H EENT exam unremarkable. Neck nontender. Lungs are clear. Heart regular rhythm no murmur. Abdomen soft nontender. Normal bowel sounds no peritoneal signs. Rectal exam no gross blood. Dark brown stool. Moving all 4 extremities. Nontender no edema. Neurologically is awake and alert with no focal motor deficits. Const Vital Signs: 06/16/23 15:55 Temperature 96.5 F L Temperature Source Temporal Pulse Rate 88 Respiratory Rate 16 Blood Pressure 85/51 L Blood Pressure Mean 62 Pulse Ox 97 Oxygen Delivery Method Room Air Positive well nourished and well developed; Negative for cachectic, contractures or unkempt General Appearance ED: well developed and NAD; Negative for unkempt, cachectic, contractures or pallor Nutritional Appearance: Negative for cachectic HEENT Reports moist mucous membranes normocephalic and atraumatic; Negative for trauma or tenderness Eyes PERRL and EOMs intact bilaterally General Eye ED: Negative for pale conjunctiva or scleral icterus Neck no lymphadenopathy, supple and no JVD General: Negative for tenderness Carotids: Negative for other Lymph Lymphatic: Negative for other Resp normal respiratory effort and clear to auscultation bilaterally Effort and Inspection: Negative for respiratory distress Auscultation: Negative for rales, rhonchi or wheezes Cardio regular rate, regular rhythm, S1 normal heart sound, S2 normal heart sound and no murmurs Rate: Negative for bradycardia or tachycardic Rhythm: Negative for abnormal rhythm GI non-tender, non-distended and no masses Inspection: Negative for abdominal distention Auscultation: normoactive bowel sounds Palpation: soft; Negative for tender or guarding Back/Spine no CVA tenderness General Back: Negative for CVA tenderness Cervical Spine: Negative for cervical spine tenderness Thoracic Spine / Upper Back: Negative for thoracic spinal tenderness Lumbar Spine / Lower Back: Negative for lumbar spinal tenderness Coccyx: Negative for other Extremity full ROM General Extremety ED: Negative for edema, tenderness or other findings General Extremity: Negative for edema or other findings Neuro CN's II-XII intact bilaterally Sensorium / Orientation: alert, oriented to person, oriented to place and oriented to time; Negative for orientation impaired, confused, lethargic or stuporous Motor Exam: strength 5/5 throughout Psych mental status grossly normal and thought process normal Appearance: Negative for unkempt Attitude: No agitated Mood & Affect: Negative for depressed, anxious or tearful Skin no wounds General Skin Exam: Negative for jaundice or pallor Lesions: no lesions Rashes: no rashes Trauma: Negative for abrasion Nails: Negative for discolored MDM MDM MDM Narrative Medical decision making narrative: 77-year-old male history of GI bleed on Plavix and Eliquis reportedly had a blood count of 9.5 a week ago and was 7.1 today in dialysis. They are concerned he is having another GI bleed and sent him in. Screening labs to be obtained. I will speak to the hospitalist about admission. History & Record Review Discussion w/independent historian: Patient Lab Data Attestation: I reviewed the patient's lab results. Lab results narrative: CBC shows a white count 8 H&H 7.3 and 24.2. His blood counts normally run between 7 and 9. Platelets are only 47,000. Has had low platelets before. PT/INR 17 and 1. Electrolytes show gap of 6. BUN 27 creatinine 3.3 again he is dialysis patient. Glucose 139. Liver enzymes are normal. Blood type O+. Labs: Laboratory Results - last 24 hr 06/16/23 16:35 WBC 8.6 RBC 2.24 L Hgb 7.3 L Hct 24.2 L MCV 108.0 H MCH 32.6 H MCHC 30.2 L RDW Std Deviation 70.0 H RDW Coeff of Lencho 19.1 H Plt Count 47 L* MPV 10.7 Immature Gran % (Auto) 0.600 Neut % (Auto) 85.0 H Lymph % (Auto) 5.2 L [place] % (Auto) 9.0 Eos % (Auto) 0.1 Baso % (Auto) 0.1 Absolute Neuts (auto) 7.3 Absolute Lymphs (auto) 0.45 L Nucleated RBC % 0.5 Differential Comment SCANNED Diff Path Review May foll Reactive Lymphocytes 1+ Anisocytosis 2+ Microcytosis 1+ Macrocytosis 1+ PT 17.2 H INR 1.4 Sodium 142 Potassium 3.8 Chloride 102 Carbon Dioxide 34.0 H Anion Gap 6 BUN 27 H Creatinine 3.39 H Est GFR (MDRD) Af Amer 23 L Est GFR (MDRD) Non-Af 19 L BUN/Creatinine Ratio 8.0 L Glucose 139 H Calcium 8.4 L Total Bilirubin 0.50 AST 9 L ALT 13 L Alkaline Phosphatase 66 Total Protein 5.9 L Albumin 3.0 L Globulin 2.9 Albumin/Globulin Ratio 1.0 Blood Type O POSITIVE Antibody Screen NEGATIVE Discharge Plan Triage Chief Complaint: GI Bleed ED Provider: Kory Flynn Dx/Rx/DC Orders Clinical Impression: History of deep vein thrombosis, Anemia, Chronic anticoagulation, History of end stage renal disease, History of GI bleed, History of atrial fibrillation Prescriptions: No Action Eliquis 2.5 mg tablet 2.5 mg PO BID carvedilol 6.25 MG tablet 3.125 mg PO BID vitamin B complex 1 EACH tablet 1 tab PO DAILY Velphoro 500 mg tablet,chewable 500 mg PO .with meals pantoprazole 40 mg Tablet,Delayed Release (Dr/Ec) 40 mg PO BID Qty: 60 1RF Rx Instructions: Take twice daily for 8 weeks then will decrease to daily sucralfate 1 gram Tablet 1 g PO 1HR_ACHS Qty: 120 0RF amiodarone 200 mg tablet 200 mg PO DAILY Qty: 30 11RF Rx Instructions: Twice daily for 7 days then decrease to 1 tablet daily Primary Care Provider: Martin Nunez Referrals: Martin Nunez DO [Primary Care Provider] - Disposition Disposition: Acute Care [facility]
--- NOTE | 2023-06-16 18:14 | HP.PCM.HOS_ITS ---
HPI - General General Date of Admission: 06/16/23 Date of Service: 06/16/23 Chief Complaint: Abnormal labs. HPI Narrative The patient is a 77 y/o M w/ PMHx: PAD s/p recent CC Main L great toe resection secondary to osteomyelitis with LLE angioplasty and PCI x 3 started plavix, Former tobacco use, Presumed HFpEF, Chronic thrombocytopenia, HTN, HLD, ESRD on HD following with Dr. He //Tue schedule noted to be anuric, AOCD/Fe deficiency anemia, Hx VTE (DVT/PE), PAF, Hx Lymphoma, Hx Hyperparathyroidism, Hx Bladder CA, recent endoscopies 05/18/[address] Garay with upper endoscopy with normal esophagus, medium size hiatal hernia, oozing duodenal ulcer with visible vessel which was injected and treated with a heater probe with clips placed and colonoscopy with perineal and digital rectal exam normal, multiple small and large mouth diverticula found in the anus, rectosigmoid colon, sigmoid colon, descending colon, splenic flexure and transverse colon with extensive amounts of stool in the entire colon precluding unfortunately visualization at that time with plan repeat colonoscopy in 2-month secondary to poor bowel prep with continuation of high-dose twice daily Protonix and sucralfate at that time who now represents to the [facility] ED on 06/16/23 with history of dialysis on day of presentation with blood count performed and noted hemoglobin 7.1 reportedly a week prior 9.5 prompting referral to ED for evaluation given significant decline on both Eliquis and Plavix with no obvious witnessed gross blood or melena but given drop referral for evaluation. He does admit to fatigue, malaise and dyspnea worse with exertion but no lightheadedness, dizziness with recent hemoglobin decline. Workup in the ED included T96.5, heart 88, BP 85/51, respiratory rate 16, 97% on room air and from review of previous blood pressures patient does tend to run in this range it appears with last trending noted 04/2023, CBC with WBC 8.6, hemoglobin 7.3, MCV 108, platelet 47 with lymphopenia, coags with PT 17.2, INR 1.4, CMP with CO2 34, BUN/creatinine 27/3.39, glucose 139, hepatic profile not marked appearing, type and cross initiated per ED physician. Of note last dose of eliquis was this AM. [facility] Medical History (Updated 06/16/23 @ 19:[address] Lisa James MD) Anemia Aortic root dilatation Arthritis Atrial fibrillation Bladder cancer Cancer Cardiology follow-up encounter (~04/04/23) CHF (congestive heart failure) CKD (chronic kidney disease) stage 5, GFR less than 15 ml/min Duodenal ulcer ESRD (end stage renal disease) on dialysis Essential hypertension Former smoker Hepatic cyst History of DVT (deep vein thrombosis) History of echocardiogram (~06/30/22) History of GI bleed History of pulmonary embolism History of solitary pulmonary nodule History of stress test (~05/03/22) HIT (heparin-induced thrombocytopenia) HLD (hyperlipidemia) Hyperparathyroidism Iron deficiency anemia Left upper chest discomfort Loss of hearing Low iron Lower gastrointestinal bleeding Lymphoma Paroxysmal A-fib Preop cardiovascular exam Pulmonary embolism Renal calculus Sleep apnea VTE (venous thromboembolism) Wears dentures Wears glasses Wears partial dentures Wide-complex tachycardia Home Medications carvedilol 6.25 mg tablet 3.125 mg PO BID blood pressure 04/24/17 [History Last Taken 02/28/23 11:00 3.125 mg] vitamin B complex 1 tab PO DAILY SUPPLEMENT 07/02/20 [History Last Taken 02/28/23 11:00] sucroferric oxyhydroxide 500 mg chewable tablet (Velphoro) 500 mg PO .with meals anemia 03/01/23 [History Last Taken Unknown] pantoprazole 40 mg tablet,delayed release 40 mg PO BID reflux #60 tabs 03/05/23 [Rx Last Taken Unknown] sucralfate 1 gram tablet 1 g PO 1HR_ACHS reflux #120 tabs 03/05/23 [Rx Last Taken Unknown] amiodarone 200 mg tablet 200 mg PO DAILY heart rate #30 tabs 04/04/23 [Rx Last Taken Unknown] apixaban 2.5 mg tablet (Eliquis) 2.5 mg PO BID blood thinner 04/04/23 [History Last Taken 05/15/23] budesonide 3 mg capsule,delayed,extended release 9 mg PO DAILY stomach 06/16/23 [History Last Taken Unknown] vitamin B complex-vitamin C-folic acid 0.8 mg tablet (Bibiana-Leoncio) 1 tab PO DAILY supplement 06/16/23 [History Last Taken Unknown] Allergy/AdvReac Type Severity Reaction Status Date / Time Iodinated Contrast Media Allergy Intermediate KIDNEY Verified 06/16/23 17:35 FAILURE enoxaparin [From Lovenox] Allergy Other Verified 06/16/23 17:35 heparin Allergy Other Verified 06/16/23 17:35 aspirin AdvReac Other Verified 06/16/23 17:35 Family History (Updated 06/16/23 @ 19:[address] Lisa James MD) Father Cancer lung Arrhythmia Brother Cancer Mother Dementia Surgical History (Updated 06/16/23 @ 19:[address] Lisa James MD) AV fistula H/O total cystectomy History of bladder surgery History of cataract extraction History of corrected cleft lip and palate History of foot surgery History of tonsillectomy S/P peripheral artery angioplasty with stent placement Social History (Updated 06/16/23 @ 19:[address] Lisa James MD) household members: none Smoking Status: Former smoker how long ago did patient quit smoking: Started age 7, stopped at 17, started again 22-2 ppd until quit 2008 alcohol intake: never substance use type: does not use caffeine: No ROS ROS Narrative Admission Review of Systems: CONSTITUTIONAL: No weight loss, fever, chills, + weakness or fatigue. HEENT: Eyes: No visual loss, blurred vision, double vision or yellow sclerae. Ears, Nose, Throat: No hearing loss, sneezing, congestion, runny nose or sore throat. SKIN: + Recent left great toe amputation, occasional staged ecchymoses, venous stasis skin changes. CARDIOVASCULAR: + Chronic edema. No chest pain, chest pressure or chest discomfort, palpitations, orthopnea, syncopal events. RESPIRATORY: No shortness of breath, cough or sputum, wheezing, hemoptysis. GASTROINTESTINAL: No anorexia, nausea, vomiting or diarrhea, abdominal pain, melena, BRBPR. GENITOURINARY: No dysuria, frequency, urgency or retention. NEUROLOGICAL: No headache, dizziness, syncope, paralysis, ataxia, numbness or tingling in the extremities, focal weakness, change in bowel or bladder control, seizure. MUSCULOSKELETAL: + muscle, back pain, joint pain or stiffness. HEMATOLOGIC: + anemia, bleeding, easy bruising. LYMPHATICS: No enlarged nodes. No history of splenectomy. PSYCHIATRIC: No history of depression or anxiety. ENDOCRINOLOGIC: No reports of sweating, cold or heat intolerance. No polyuria or polydipsia. ALLERGIES: No history of asthma, hives, eczema or rhinitis. Vital Signs Vital Signs Vital Signs: 06/16/23 15:55 Temperature 96.5 F L Temperature Source Temporal Pulse Rate 88 Respiratory Rate 16 Blood Pressure 85/51 L Blood Pressure Mean 62 Pulse Ox 97 Oxygen Delivery Method Room Air Weight Weight: 219 lb 2.232 oz Body Mass Index (BMI) 32.3 Physical Exam Narrative Physical Examination: General: Awake, alert, oriented x 3 and cooperative, seated upright in the ED bed in no apparent distress, fatigued appearing. Skin: Normal color, normal turgor, no icterus, no cyanosis except for notable venous stasis skin changes, occasional abrasion, occasional staged ecchymoses, recent left great toe resection with no drainage noted. HEENT: AT/NC, EOMI, PERRLA, mildly dry MM, no carotid bruits or JVD noted. Lungs: Diminished, greater bases, proper effort, no rales, ronchi or wheezing. Heart: Currently regular rate and rhythm; no gallop, rub audible. Abdomen: Soft, obese, NTTP, ND, distant normal BS, no appreciated HSM. Extremities: No cyanosis, no clubbing, significant pedal to proximal lower extremity pitting edema, status post recent left great toe resection, no drainage noted. Neurological: Patient awake, alert, oriented as noted, cognitive function intact; pupils equally reactive to light and accommodation, cranial nerves grossly normal, moving all 4 extremities, strength moderately to severely globally decreased secondary to acute presentation complicated by underlying comorbidities. Psychiatric: Affect appears fatigued, no acute evidence of depressive or anxiety feelings. Results Lab / Micro Data 06/16/23 16:35 06/16/23 16:35 Labs: Laboratory Results - last 24 hr 06/16/23 16:35: WBC 8.6, RBC 2.24 L, Hgb 7.3 L, Hct 24.2 L, MCV 108.0 H, MCH 32.6 H, MCHC 30.2 L, RDW Std Deviation 70.0 H, RDW Coeff of Lencho 19.1 H, Plt Count 47 L*, MPV 10.7, Immature Gran % (Auto) 0.600, Neut % (Auto) 85.0 H, Lymph % (Auto) 5.2 L, Mcleod % (Auto) 9.0, Eos % (Auto) 0.1, Baso % (Auto) 0.1, Absolute Neuts (auto) 7.3, Absolute Lymphs (auto) 0.45 L, Nucleated RBC % 0.5, Differential Comment SCANNED, Diff Path Review May foll, Reactive Lymphocytes 1+, Anisocytosis 2+, Microcytosis 1+, Macrocytosis 1+, PT 17.2 H, INR 1.4, Sodium 142, Potassium 3.8, Chloride 102, Carbon Dioxide 34.0 H, Anion Gap 6, BUN 27 H, Creatinine 3.39 H, Est GFR (MDRD) Af Amer 23 L, Est GFR (MDRD) Non-Af 19 L , BUN/Creatinine Ratio 8.0 L, Glucose 139 H, Calcium 8.4 L, Total Bilirubin 0.50, AST 9 L, ALT 13 L, Alkaline Phosphatase 66, Total Protein 5.9 L, Albumin 3.0 L, Globulin 2.9, Albumin/Globulin Ratio 1.0, Blood Type O POSITIVE, Antibody Screen NEGATIVE Assessment & Plan Assessment/Plan (1) ABLA (acute blood loss anemia): PLAN: Plan The patient is a 77 y/o M w/ PMHx: PAD s/p recent CC Main L great toe resection secondary to osteomyelitis with LLE angioplasty and PCI x 3 started plavix, Former tobacco use, Presumed HFpEF, Chronic thrombocytopenia, HTN, HLD, ESRD on HD following with Dr. He //Tue schedule noted to be anuric, AOCD/Fe deficiency anemia, Hx VTE (DVT/PE), PAF, Hx Lymphoma, Hx Hyperparathyroidism, Hx Bladder CA, recent endoscopies 05/18/[address] Garay with upper endoscopy with normal esophagus, medium size hiatal hernia, oozing duodenal ulcer with visible vessel which was injected and treated with a heater probe with clips fatuma moo and colonoscopy with perineal and digital rectal exam normal, multiple small and large mouth diverticula found in the anus, rectosigmoid colon, sigmoid colon, descending colon, splenic flexure and transverse colon with extensive amounts of stool in the entire colon precluding unfortunately visualization at that time with plan repeat colonoscopy in 2-month secondary to poor bowel prep with continuation of high-dose twice daily Protonix and sucralfate at that time who now represents to the [facility] ED on 06/16/23 with history of dialysis on day of presentation with blood count performed and noted hemoglobin 7.1 reportedly a week prior 9.5 prompting referral to ED for evaluation given significant decline on both Eliquis and Plavix with no obvious witnessed gross blood or melena but given drop referral for evaluation. #1. Acute GI Bleed w/ resultant Acute Blood Loss Anemia on Chronic/AOCD/Fe deficiency anemia w/ recently noted duodenal ulcer and history of peptic ulcer disease concurrently: Admission hemoglobin 7.3 reportedly in the 9 range recently per nephrology with recheck on day of presentation secondary to dialysis, will admit to PCU given low BP although this seems to be his baseline, will add midodrine, maintain on very judicious fluids given underlying diastolic CHF, holding anticoagulant therapy but given recent PCI will continue plavix, will serially obtain H&H's, allow clears now with n.p.o. status after midnight, type and cross initiated per ED physician, will continue IV Protonix drip with GI consultation. #2. PAD w/ recent L great toe osteomyelitis: Followed initially with Dr. Miramontes with history of initial referral secondary to left great toe wound with PAD referred by podiatry, L EAS with noncompressible vessels bilaterally but with monophasic waveform left lower extremity and TBI 0.2 status post previous thrombectomy possibly secondary to left lower extremity clots possibly off Coumadin at that time however this is remote in 2012 and unclear if they were venous or arterial and unclear if any stents are present peripherally. Given timeline however he was then referred to parth and recently underwent L great toe amputation secondary to osteomyelitis, treated during admission with abx therapy and underlying LLE angioplasty and PCI x 3. Given his current acute presentation again with acute blood loss anemia and known recent GI bleeding source will temporally hold the anticoagulant but given timeline will need to continue the plavix. #3. Acute on chronic thrombocytopenia: Admission platelet 47, baseline previously in April in the 70 range but does appear to vacillate, complicates presentation, holding anticoagulant but because of recent PCI will need to continue plavix, trend CBC and if necessary may administer platelet therapy. #4. HFpEF: 06/30/2022 echocardiogram with normal LV systolic function, EF 60%, mild concentric LVH, mildly dilated RV, severely enlarged LA and moderately enlarged RA, mild MVI, mild TVI, RVSP 31 mmHg with inability to assess diastolic function on that echo, continuing plavix as noted, adding statin, continue coreg as BP allows, not on MARCELA/ARB. #5. ESRD: Patient with dialysis on day of presentation with known Tuesday, , Tuesday regimen, will consult nephrology Dr. He to continue. #6. PAF: We will continue patient home amiodarone as well as Coreg as BP allows, holding Eliquis regimen. #7. History of VTE: Patient with previous history of DVT and PE, holding anticoagulation given significant presentation with acute blood loss anemia, restart once appropriate. #8. Hypertension: Noted history however patient was significantly chronically reduced blood pressures likely following his start on dialysis, will attempt to continue amiodarone and Coreg for his underlying A-fib but may need to hold the Coreg. #9. Hyperlipidemia: From recommendation per vascular surgery will initiate at least a moderate dose statin therapy as there is no allergy listed. #10. History lymphoma, bladder cancer: Patient status post remote history of bladder resection and reconstruction considered in remission as well as a history of lymphoma treated with per son chemotherapy also considered in remission. Follow-up with urology as well as oncology as previously arranged. #11. Former tobacco use: Encourage continued tobacco cessation. #12. DVT prophylaxis: SCDs, holding patient anticoagulant therapy. #13. CODE status: Patient HCPOA is his son who is present and living will is c urrently in place. Discussed CODE status at length including difference between FULL code, DNR-CCA and DNR-CC status. Following discussions about the differences in these status, requested Full Code which was confirmed and prognosis/outcome discussed given his history. Advanced Care Planning Face to Face Time: 16 minutes. Charges/Coding Visit Charges Inpatient E&M: 13489 Init Hosp L3 Procedures Hospitalists Procedures: 32253 Advncd Care Plan 30 Min
[2023-06-16 18:48] VITALS: BP 122/52; PULSE 82; RESP 18; TEMP 35.8; O2SAT 97
[2023-06-16 18:57] LABS: Phosphorus 2.3 mg/dL (2.5-4.9)
[2023-06-16 19:35] VITALS: BP 113/57; PULSE 82; RESP 20; TEMP 36.8; O2SAT 98
[2023-06-16 19:38] VITALS: BMI 32.3
[2023-06-16 20:47] LABS: Hematocrit 24.5 % (40-54); Hemoglobin 7.4 g/dL (13.0-16.5)
[2023-06-16] MEDS: Pantoprazole Sodium 80 MG in 0.9% Normal Saline (50mL Bag) 15 ML 420 MG IV BOLUS (20:59)
[2023-06-16] MEDS: 0.9% Normal Saline (1000mL) 1,000 ML 75 ML IV (20:59)
[2023-06-16] MEDS: Azithromycin 500 MG in Dextrose 5%-Water (250mL Bag) 250 ML 250 MG IV (21:16)
[2023-06-16] MEDS: Pantoprazole Sodium 80 MG in 0.9% Normal Saline (100mL Bag) 80 ML 10 MG CONT INF (21:29)
[2023-06-16] MEDS: Bisacodyl 5 MG Tablet 20 MG PO (21:35)
[2023-06-16] MEDS: Carvedilol 3.125 MG TABLET PO (21:36)
[2023-06-16] MEDS: Sucralfate 1 GM Tablet PO (21:36)
[2023-06-16 21:55] VITALS: BP 116/63; PULSE 76; RESP 18; TEMP 36.7; O2SAT 96
--- NOTE | 2023-06-16 23:00 | EX.PCM.CON.G ---
HPI Consult Data Date of Consult: 06/16/23 HPI Narrative Reason for Consultation: GI bleed HPI Narrative: RIA MARIANO, is a 77 M with a past medical history of essential hypertension, hyperlipidemia, end-stage renal disease on hemodialysis (Tuesday, , Tuesday) with patient anuric - followed by Dr. Sonia He of nephrology, chronic multifactorial anemia; on Epogen, history of DVT/PE, paroxysmal atrial fibrillation; on apixaban and amiodarone, history of wide-complex tachycardia, history of lymphoma, history of hyperparathyroidism, history of CHF, history of bladder cancer and history of peptic ulcer disease with associated blood loss requiring cauterization with patient still on sucralfate and pantoprazole who presents to [facility] ER complaining of dizziness, fatigue and a hemoglobin of 7.1 at dialysis. Mr. 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 He also admits to some aching pain in his left lower quadrant but this was mild to moderate and is not present at this time. His recent endoscopies 05/18/2023 upper endoscopy with normal esophagus, medium size hiatal hernia, oozing duodenal ulcer with visible vessel which was injected and treated with a heater probe with clips placed. colonoscopy with perineal and digital rectal exam normal, multiple small and large mouth diverticula found in the anus, rectosigmoid colon, sigmoid colon, descending colon, splenic flexure and transverse colon with extensive amounts of stool in the entire colon precluding unfortunately visualization at that time with plan repeat colonoscopy in 2-month secondary to poor bowel prep with continuation of high-dose twice daily Protonix and sucralfate. Now represents to the [facility] ED on 06/16/23 with history of dialysis on day of presentation with blood count performed and noted hemoglobin 7.1 reportedly a week prior 9.5 prompting referral to ED for evaluation given significant decline on both Eliquis and Plavix with no obvious witnessed gross blood or melena but given drop referral for evaluation. [facility] Medical History (Updated 06/16/23 @ 19:47 by Sue Guillaume) Anemia Aortic root dilatation Arthritis Atrial fibrillation Bladder cancer Cancer Cardiology follow-up encounter (~04/04/23) CHF (congestive heart failure) CKD (chronic kidney disease) stage 5, GFR less than 15 ml/min Coronary artery disease Dialysis patient Duodenal ulcer ESRD (end stage renal disease) on dialysis Essential hypertension Former smoker Hepatic cyst History of DVT (deep vein thrombosis) History of echocardiogram (~06/30/22) History of GI bleed History of pulmonary embolism History of solitary pulmonary nodule History of stress test (~05/03/22) HIT (heparin-induced thrombocytopenia) HLD (hyperlipidemia) Hyperparathyroidism Iron deficiency anemia Kidney disease Left upper chest discomfort Loss of hearing Low iron Lower gastrointestinal bleeding Lymphoma Paroxysmal A-fib Preop cardiovascular exam Pulmonary embolism Renal calculus Sleep apnea VTE (venous thromboembolism) Wears dentures Wears glasses Wears partial dentures Wide-complex tachycardia Home Medications carvedilol 6.25 mg tablet 3.125 mg PO BID blood pressure 04/24/17 [History Last Taken 02/28/23 11:00 3.125 mg] vitamin B complex 1 tab PO DAILY SUPPLEMENT 07/02/20 [History Last Taken 02/28/23 11:00] sucroferric oxyhydroxide 500 mg chewable tablet (Velphoro) 500 mg PO .with meals anemia 03/01/23 [History Last Taken Unknown] pantoprazole 40 mg tablet,delayed release 40 mg PO BID reflux #60 tabs 03/05/23 [Rx Last Taken Unknown] sucralfate 1 gram tablet 1 g PO 1HR_ACHS reflux #120 tabs 03/05/23 [Rx Last Taken Unknown] amiodarone 200 mg tablet 200 mg PO DAILY heart rate #30 tabs 04/04/23 [Rx Last Taken Unknown] apixaban 2.5 mg tablet (Eliquis) 2.5 mg PO BID blood thinner 04/04/23 [History Last Taken 05/15/23] budesonide 3 mg capsule,delayed,extended release 9 mg PO DAILY stomach 06/16/23 [History Last Taken Unknown] vitamin B complex-vitamin C-folic acid 0.8 mg tablet (Bibiana-Leoncio) 1 tab PO DAILY supplement 06/16/23 [History Last Taken Unknown] Allergy/AdvReac Type Severity Reaction Status Date / Time Iodinated Contrast Media Allergy Intermediate KIDNEY Verified 06/16/23 17:35 FAILURE enoxaparin [From Lovenox] Allergy Other Verified 06/16/23 17:35 heparin Allergy Other Verified 06/16/23 17:35 aspirin AdvReac Other Verified 06/16/23 17:35 Family History (Updated 06/16/23 @ 19:[address] Lisa James MD) Father Cancer lung Arrhythmia Brother Cancer Mother Dementia Surgical History (Updated 06/16/23 @ 19:[address] Lisa James MD) AV fistula H/O total cystectomy History of bladder surgery History of cataract extraction History of corrected cleft lip and palate History of foot surgery History of tonsillectomy S/P peripheral artery angioplasty with stent placement Social History (Updated 06/16/23 @ 19:[address] Lisa James MD) household members: none Smoking Status: Former smoker how long ago did patient quit smoking: Started age 7, stopped at 17, started again 22-2 ppd until quit 2008 alcohol intake: never substance use type: does not use caffeine: No ROS ROS Narrative Admission Review of Systems: CONSTITUTIONAL: No weight loss, fever, chills, + weakness or fatigue. HEENT: Eyes: No visual loss, blurred vision, double vision or yellow sclerae. Ears, Nose, Throat: No hearing loss, sneezing, congestion, runny nose or sore throat. SKIN: + Recent left great toe amputation, occasional staged ecchymoses, venous stasis skin changes. CARDIOVASCULAR: + Chronic edema. No chest pain, chest pressure or chest discomfort, palpitations, orthopnea, syncopal events. RESPIRATORY: No shortness of breath, cough or sputum, wheezing, hemoptysis. GASTROINTESTINAL: No anorexia, nausea, vomiting or diarrhea, abdominal pain, melena, BRBPR. GENITOURINARY: No dysuria, frequency, urgency or retention. NEUROLOGICAL: No headache, dizziness, syncope, paralysis, ataxia, numbness or tingling in the extremities, focal weakness, change in bowel or bladder control, seizure. MUSCULOSKELETAL: + muscle, back pain, joint pain or stiffness. HEMATOLOGIC: + anemia, bleeding, easy bruising. LYMPHATICS: No enlarged nodes. No history of splenectomy. PSYCHIATRIC: No history of depression or anxiety. ENDOCRINOLOGIC: No reports of sweating, cold or heat intolerance. No polyuria or polydipsia. ALLERGIES: No history of asthma, hives, eczema or rhinitis. Physical Exam Narrative Physical Examination: General: Awake, alert, oriented x 3 and cooperative, seated upright in the ED bed in no apparent distress, fatigued appearing. Skin: Normal color, normal turgor, no icterus, no cyanosis except for notable venous stasis skin changes, occasional abrasion, occasional staged ecchymoses, recent left great toe resection with no drainage noted. HEENT: AT/NC, EOMI, PERRLA, mildly dry MM, no carotid bruits or JVD noted. Lungs: Diminished, greater bases, proper effort, no rales, ronchi or wheezing. Heart: Currently regular rate and rhythm; no gallop, rub audible. Abdomen: Soft, obese, NTTP, ND, distant normal BS, no appreciated HSM. Extremities: No cyanosis, no clubbing, significant pedal to proximal lower extremity pitting edema, status post recent left great toe resection, no drainage noted. Neurological: Patient awake, alert, oriented as noted, cognitive function intact; pupils equally reactive to light and accommodation, cranial nerves grossly normal, moving all 4 extremities, strength moderately to severely globally decreased secondary to acute presentation complicated by underlying comorbidities. Psychiatric: Affect appears fatigued, no acute evidence of depressive or anxiety feelings. Lab / Micro Data 06/17/23 08:31 06/17/23 04:51 Labs: Laboratory Results - last 24 hr 06/16/23 16:35: WBC 8.6, RBC 2.24 L, Hgb 7.3 L, Hct 24.2 L, MCV 108.0 H, MCH 32.6 H, MCHC 30.2 L, RDW Std Deviation 70.0 H, RDW Coeff of Lencho 19.1 H, Plt Count 47 L*, MPV 10.7, Immature Gran % (Auto) 0.600, Neut % (Auto) 85.0 H, Lymph % (Auto) 5.2 L, Jay % (Auto) 9.0, Eos % (Auto) 0.1, Baso % (Auto) 0.1, Absolute Neuts (auto) 7.3, Absolute Lymphs (auto) 0.45 L, Nucleated RBC % 0.5, Differential Comment SCANNED, Diff Path Review May foll, Reactive Lymphocytes 1+, Anisocytosis 2+, Microcytosis 1+, Macrocytosis 1+, PT 17.2 H, INR 1.4, Sodium 142, Potassium 3.8, Chloride 102, Carbon Dioxide 34.0 H, Anion Gap 6, BUN 27 H, Creatinine 3.39 H, Est GFR (MDRD) Af Amer 23 L, Est GFR (MDRD) Non-Af 19 L, BUN/Creatinine Ratio 8.0 L, Glucose 139 H, Calcium 8.4 L, Phosphorus 2.3 L, Magnesium 2.0, Total Bilirubin 0.50, AST 9 L, ALT 13 L, Alkaline Phosphatase 66, Total Protein 5.9 L, Albumin 3.0 L, Globulin 2.9, Albumin/Globulin Ratio 1.0, Blood Type O POSITIVE, Antibody Screen NEGATIVE, Crossmatch See Detail 06/16/23 20:37: Hgb 7.4 L, Hct 24.5 L 06/17/23 00:32: Hgb 7.0 L, Hct 23.3 L 06/17/23 04:51: WBC 8.4, RBC 2.44 L, Hgb 8.0 L, Hct 26.9 L, MCV 110.2 H, MCH 32.8 H, MCHC 29.7 L, RDW Std Deviation 75.8 H, RDW Coeff of Lencho 19.8 H, Plt Count 66 L, MPV 11.7, Immature Gran % (Auto) 0.400, Neut % (Auto) 79.0 H, Lymph % (Auto) 9.6 L, Jay % (Auto) 9.5, Eos % (Auto) 1.3, Baso % (Auto) 0.2, Absolute Neuts (auto) 6.6, Absolute Lymphs (auto) 0.80 L, Nucleated RBC % 1.3, Platelet Estimate MOD DEC, Anisocytosis 2+, PT 19.0 H, INR 1.6, APTT 31.7, Sodium 142, Potassium 3.9, Chloride 100, Carbon Dioxide 33.0 H, Anion Gap 9, BUN 37 H, Creatinine 4.61 H, Estim Creat Clear Calc 13.63, Est GFR (MDRD) Af Amer 16 L, Est GFR (MDRD) Non-Af 13 L, BUN/Creatinine Ratio 8.0 L, Glucose 104, Calcium 8.6, Total Bilirubin 0.50, AST 14 L, ALT 13 L, Alkaline Phosphatase 69, Total Protein 6.2 L, Albumin 3.2, Globulin 3.0, Albumin/Globulin Ratio 1.1 06/17/23 08:31: Hgb 7.6 L, Hct 24.7 L Assessment & Plan Assessment/Plan (1) Acute blood loss anemia (ABLA): (2) Acute GI bleeding: (3) Hematochezia: (4) Acute on chronic anemia: (5) Duodenal ulcer: PLAN: Plan GI bleed secondary to duodenal ulcers x3 -EGD performed on 03/03/2023 showed normal upper third of the esophagus with grade a esophagitis, small hiatal hernia, erosive gastropathy with no stigmata of bleeding that was biopsies and 3 oozing duodenal ulcers with pigmented material that were injected and treated with heater probe -EGD yesterday also displayed bleeding in the duodenum secondary to anticoagulation causing ulceration in the duodenum status post endoscopic treatment. -Continue Protonix 40 mg p.o. twice daily for 8 weeks and then transition to daily -Continue Carafate 1 g 4 times daily -We will be performing a repeat upper endoscopy and colonoscopy to evaluate his upper GI tract to see if the restarting of his Eliquis because recurrent GI bleeding. Acute on chronic anemia with chronic anemia secondary to chronic renal disease -Chronic anemia due to end-stage renal disease on HD -Transfuse for hemoglobin less than 7 -Hemoglobin is 8.1 today -Continue home iron supplementation -Procrit per nephrology -He also has intermittent thrombocytopenia that I am not sure it is secondary to underlying mild dysplastic syndrome in the setting of increased MCV or reticulocytosis. He should see hematology as an outpatient. Charges/Coding Visit Charges Inpatient E&M: 91573 Init Hosp L3
[2023-06-17] VITALS (12 sets, daily range): BP systolic 99–119; BP diastolic 46–65; PULSE 65–82; RESP 12–18; TEMP 36.1–36.8; O2SAT 92–100; BMI 31.8
[2023-06-17] MEDS: Polyethylene Glycol 3350 BOWEL PREP 1 BOTTLE PO (00:18)
[2023-06-17] MEDS: CLARIFY ORDER 1 EACH NOTE (00:19)
[2023-06-17] MEDS: Metoclopramide 10 MG/2 ML Vial 5 MG IV ×3 (00:22→19:52)
[2023-06-17 00:49] LABS: Hematocrit 23.3 % (40-54)
[2023-06-17 05:10] LABS: Absolute Neutrophil Count 6.6 X10^3/uL (2.0-7.7); Basophil# 0.02 X10^3/uL; Basophil% 0.2 % (0-1); Eosinophil# 0.11 X10^3/uL; Eosinophils% 1.3 % (0-5); Hematocrit 26.9 % (40-54); Lymphocyte % 9.6 % (19-41); Mean Corp Hgb Conc 29.7 g/dL (32-36); Mean Corpuscular Hgb 32.8 pg (27.0-32.0); Mean Corpuscular Volume 110.2 fL (80-94); Mean Platelet Vol. 11.7 fl (6.2-12.0); Monocyte# 0.79 X10^3/uL; Monocyte% 9.5 % (0-10); NRBC Flagged by Analyzer 1.3 % (0-5); POSITIVE COUNT YES; POSITIVE MORPHOLOGY YES; Platelet Count 66 K/mm3 (150-450); RBC Distribution Width CV 19.8 % (11.6-14.6); RBC Distribution Width SD 75.8 fl (35.1-43.9); Red Blood Count 2.44 M/mm3 (4.6-6.2); White Blood Count 8.4 K/mm3 (4.4-11.0)
[2023-06-17 05:19] LABS: Partial Thromboplast Time 31.7 Seconds (24.1-36.2)
[2023-06-17 05:27] LABS: ALB/GLOB Ratio 1.1 RATIO (0.9-2.4); AST(SGOT) 14 U/L (15-37); Alanine Aminotransfer ALT/SGPT 13 U/L (16-61); Albumin, Serum 3.2 g/dL (3.2-5.0); Alkaline Phosphatase 69 U/L (45-117); Anion Gap 9 (5-15); BUN 37 mg/dL (7-18); Calcium,Total 8.6 mg/dL (8.5-10.1); Chloride 100 mmol/L (98-107); Creatinine, Serum 4.61 mg/dL (0.70-1.30); EST Glomerular Filtration Rate 13 mL/min (>60); Est Glom Filt Rate - Afr Amer 16 mL/min (>60); Estimated Creatinine Clearance 13.63 ml/min; Glucose 104 mg/dL (74-106); Potassium 3.9 mmol/L (3.5-5.1); Protein, Total 6.2 g/dL (6.4-8.2); Sodium Level 142 mmol/L (136-145)
[2023-06-17 05:41] LABS: International Normalized Ratio 1.6
[2023-06-17 06:14] LABS: Differential Indicated SCAN CRITERIA MET
[2023-06-17 06:29] LABS: Anisocytosis 2+; Platelet Estimate MOD DEC (ADEQ)
--- NOTE | 2023-06-17 08:12 | PN.HOSP_ITS ---
Reason for Visit Reason for Visit: Diagnoses Acute posthemorrhagic anemia (06/16/23) Objective Data Objective Data Vital Signs: Vital Signs Temp Pulse Resp BP Pulse Ox O2 Del Method 98.2 F 69 18 111/65 98 Room Air 06/17/23 06:00 06/17/23 06:00 06/17/23 06:00 06/17/23 06:00 06/17/23 06:00 06/17/23 06:00 Oxygen Delivery Method Room Air Weight: 215 lb 6.266 oz Body Mass Index (BMI) 31.8 Intake & Output: Intake and Output for Last 24 Hours 06/15/23 06/16/23 06/17/23 23:59 23:59 23:59 Intake Total 35 / 155 1775 / 1775 Output Total 0 / 0 Balance 35 / 155 1775 / 1775 Lab / Micro Data 06/17/23 08:31 06/17/23 04:51 Labs: Laboratory Results - last 24 hr 06/16/23 16:35: WBC 8.6, RBC 2.24 L, Hgb 7.3 L, Hct 24.2 L, MCV 108.0 H, MCH 32.6 H, MCHC 30.2 L, RDW Std Deviation 70.0 H, RDW Coeff of Lencho 19.1 H, Plt Count 47 L*, MPV 10.7, Immature Gran % (Auto) 0.600, Neut % (Auto) 85.0 H, Lymph % (Auto) 5.2 L, [place] % (Auto) 9.0, Eos % (Auto) 0.1, Baso % (Auto) 0.1, Absolute Neuts (auto) 7.3, Absolute Lymphs (auto) 0.45 L, Nucleated RBC % 0.5, Differential Comment SCANNED, Diff Path Review May foll, Reactive Lymphocytes 1+, Anisocytosis 2+, Microcytosis 1+, Macrocytosis 1+, PT 17.2 H, INR 1.4, Sodium 142, Potassium 3.8, Chloride 102, Carbon Dioxide 34.0 H, Anion Gap 6, BUN 27 H, Creatinine 3.39 H, Est GFR (MDRD) Af Amer 23 L, Est GFR (MDRD) Non-Af 19 L , BUN/Creatinine Ratio 8.0 L, Glucose 139 H, Calcium 8.4 L, Phosphorus 2.3 L, Magnesium 2.0, Total Bilirubin 0.50, AST 9 L, ALT 13 L, Alkaline Phosphatase 66, Total Protein 5.9 L, Albumin 3.0 L, Globulin 2.9, Albumin/Globulin Ratio 1.0, Blood Type O POSITIVE, Antibody Screen NEGATIVE, Crossmatch See Detail 06/16/23 20:37: Hgb 7.4 L, Hct 24.5 L 06/17/23 00:32: Hgb 7.0 L, Hct 23.3 L 06/17/23 04:51: WBC 8.4, RBC 2.44 L, Hgb 8.0 L, Hct 26.9 L, MCV 110.2 H, MCH 32.8 H, MCHC 29.7 L, RDW Std Deviation 75.8 H, RDW Coeff of Lencho 19.8 H, Plt Co unt 66 L, MPV 11.7, Immature Gran % (Auto) 0.400, Neut % (Auto) 79.0 H, Lymph % (Auto) 9.6 L, [place] % (Auto) 9.5, Eos % (Auto) 1.3, Baso % (Auto) 0.2, Absolute Neuts (auto) 6.6, Absolute Lymphs (auto) 0.80 L, Nucleated RBC % 1.3, Platelet Estimate MOD DEC, Anisocytosis 2+, PT 19.0 H, INR 1.6, APTT 31.7, Sodium 142, Potassium 3.9, Chloride 100, Carbon Dioxide 33.0 H, Anion Gap 9, BUN 37 H, Creatinine 4.61 H, Estim Creat Clear Calc 13.63, Est GFR (MDRD) Af Amer 16 L, Est GFR (MDRD) Non-Af 13 L, BUN/Creatinine Ratio 8.0 L, Glucose 104, Calcium 8.6, Total Bilirubin 0.50, AST 14 L, ALT 13 L, Alkaline Phosphatase 69, Total Protein 6.2 L, Albumin 3.2, Globulin 3.0, Albumin/Globulin Ratio 1.1 Physical Exam Narrative Seen and examined. Denies any external bleeding like GI bleed, hematuria or hemoptysis. Patient is on hemodialysis. No acute symptoms. No fever. No abdominal pain Physical exam General: Alert, Oriented x3, Cooperative HEENT: Atraumatic, PERRLA, EOMI, Normocephalic Oral: No Gingival or Mucosal Lesions/ Ulcerations Neck: Right upper chest Mediport supple, No JVD, Negative Carotid Bruits Lungs: Air entry diminished in bilateral lung bases. No crepitation/rhonchi Cardiovascular: Regular rate, Regular Rhythm, Normal S1, Normal S2, No murmurs Abdomen: Bowel Sounds Present, Soft, Non Tender, Non-Distended : On hemodialysis. Arm AV fistula. No renal angle tenderness. No suprapubic tenderness. Extremities: No edema, Capillary Refill Less than 3 Seconds Skin: No rashes, No breakdown Musculoskeletal: No Tenderness to Palpation of Joints or Extremities Neurological: Cranial nerves II-XII grossly intact, DTR 2+/4. No acute focal neurological deficit. Psych/Mental Status: Normal Affect, Appropriate. Assessment & Plan Assessment/Plan (1) ABLA (acute blood loss anemia): PLAN: Plan The patient is a 77 y/o M was admitted on monitored bed on 06/16/23 with admitted through ER for severe anemia found hemoglobin 7.1 on the day of dialysis on 06/16. It was 9.5 a week ago. Patient has history of PAD, A-fib, prior DVT and PE on Eliquis and Plavix. #1. Acute GI Bleed w/ resultant Acute Blood Loss Anemia on Chronic/AOCD/Fe deficiency anemia w/ recently noted duodenal ulcer and history of peptic ulcer disease concurrently: Patient is admitted to PCU. BP on lower side therefore midodrine added. Conservative IV fluid due to history of diastolic heart failure. IV PPI. Plavix continued as patient had recently stent. Hold Eliquis. EGD and colonoscopy on 05/18/2023: Impressions : - Normal esophagus. - Medium-sized hiatal hernia. - Oozing duodenal ulcer with a visible vessel. Injected. Treated with a heater probe. Clips were placed. Impression: - Preparation of the colon was poor. - Diverticulosis at the anus, in the recto-sigmoid colon, in the sigmoid colon, in the descending colon, at the splenic flexure and in the transverse colon. - Stool in the entire examined colon. #2. PAD w/ recent L great toe osteomyelitis: Patient follows Dr. Miramontes for left great toe wound with peripheral arterial disease. L EAS with noncompressible vessels bilaterally but with monophasic waveform left lower extremity and TBI 0.2 status post previous thrombectomy patient had LLE angioplasty and PCI x 3. Because of the recent stent, legs continued although Eliquis held. #3. Acute on chronic thrombocytopenia: Admission platelet 47, baseline previously in April in the 70 range but does appear to vacillate, complicates presentation, holding anticoagulant but because of recent PCI will need to continue plavix, trend CBC and if necessary may administer platelet therapy. #4. HFpEF: 06/30/2022 echocardiogram with normal LV systolic function, EF 60%, mild concentric LVH, mildly dilated RV, severely enlarged LA and moderately enlarged RA, mild MVI, mild TVI, RVSP 31 mmHg with inability to assess diastolic function on that echo, continuing plavix as noted, adding statin, continue coreg as BP allows, not on MARCELA/ARB. #5. ESRD: Patient with dialysis on day of presentation with known Tuesday, , Tuesday regimen, will consult nephrology Dr. He to continue. #6. PAF: continue patient home amiodarone as well as Coreg as BP allows, holding Eliquis regimen. #7. History of VTE: Patient with previous history of DVT and PE, holding anticoagulation given significant presentation with acute blood loss anemia, restart once appropriate. #8. Hypertension: Noted history however patient was significantly chronically reduced blood pressures likely following his start on dialysis, will attempt to continue amiodarone and Coreg for his underlying A-fib but may need to hold the Coreg. #9. Hyperlipidemia: From recommendation per vascular surgery will initiate at least a moderate dose statin therapy as there is no allergy listed. #10. History lymphoma, bladder cancer: Patient status post remote history of bladder resection and reconstruction considered in remission as well as a history of lymphoma treated with per son chemotherapy also considered in remission. Follow-up with urology as well as oncology as previously arranged. #11. Former tobacco use: Encourage continued tobacco cessation. #12. DVT prophylaxis: SCDs, holding patient anticoagulant therapy. #13. CODE status: Patient DEANNA is his son who is present and living will is currently in place. Discussed CODE status at length including difference between FULL code, DNR-CCA and DNR-CC status. Following discussions about the differences in these status, requested Full Code which was confirmed and prognosis/outcome discussed given his history. Charges/Coding Visit Charges Inpatient E&M: 33517 Subs Hosp L2
[2023-06-17 08:43] LABS: Hematocrit 24.7 % (40-54); Hemoglobin 7.6 g/dL (13.0-16.5)
[2023-06-17] MEDS: Pantoprazole Sodium 80 MG in 0.9% Normal Saline (100mL Bag) 80 ML 10 MG CONT INF ×2 (08:55→21:01)
--- NOTE | 2023-06-17 12:00 | COLBX_PTH ---
PATHOLOGY RESULTS PATIENT: RIA MARIANO LOC: [facility] U#:[id number] AGE/SX: 77/M ROOM: [facility] RE06/16/[address]: Dr. Anselmo Renae MD : [id number] BED: 1 DIS: 06/18/2023 SPEC #: [id number] RECD: 06/21/23 07:50 STATUS: DAKOTAH REErasmo #: [id number] PERRY: 06/17/23 12:[address]: Wolfgang Garay DEPT: SURGICAL PATHOLOGY RECD BY: Sirisha Rouse ENTERED: 06/21/23 07:51 SP TYPE: COLON BX OTHR DR: MD Dr. Sonia Raphael, DO Dr. Martin Nunez, DO Dr. nAselmo Renae MD Tissues: Ileum, NOS Cecum, NOS Procedures: Special Stain Group II Mucicarmine Stain (control) Surgery Specimen Level IV Comments: @ Ordering doctor for MIREYAIV edited from to @ by PRIYANK at 06/21/23 1521 @ Submitting doctor edited from to @ by GISELLEOD at 06/21/23 1521 HEADER OPERATION: Colonoscopy with biopsy, tattoo marking, epi injection PRE-OP DIAGNOSIS: Acute blood loss anemia TISSUE SUBMITTED: A - Terminal ileum, B - Cecum MICROSCOPIC DIAGNOSIS A. Terminal ileum, biopsy: Fragments of small intestinal mucosa with hemosiderin laden macrophages consistent with old hemorrhage. See comment. B. Cecum, biopsy: Fragments of colonic mucosa, no pathologic diagnosis. SJ:jeff 06/22/2023 COMMENT A. Iron stain with matched control was used in the evaluation of the specimen. Correlation with clinical, endoscopic findings and appropriate follow up are necessary. Case has been reviewed in consultation with Dr. Chong who concurs with the above diagnosis. IDC:AM MICROSCOPIC DESCRIPTION Slides are reviewed. GROSS DESCRIPTION A - Received in fixative is one container labeled with the patient's name and designated terminal ileum. The specimen consists of multiple irregular fragments of light hernandez soft tissue that in aggregate measure 1.0 x 0.5 x 0.1 cm. The specimen is totally submitted in one cassette. B - Received in fixative is one container labeled with the patient's name and designated cecum. The specimen consists of multiple irregular fragments of light hernandez soft tissue that in aggregate measure 0.5 x 0.3 x 0.1 cm. The specimen is totally submitted in one cassette. / SJ:jeff 06/21/2023 TC:5 CPT: 43023 x2, 69350
[2023-06-17 12:12] LABS: Pathologist Review Reviewed
[2023-06-17] MEDS: Epinephrine (1 mg/ml) 1 MG/ML VIAL (12:40)
[2023-06-17] MEDS: 0.9% Normal Saline (Pres. free 10 ML Vial (12:40)
--- NOTE | 2023-06-17 12:53 | OP.CCLET_ITS ---
06/17/2023 Martin Nunez [address] [place] [address] Re : Upper GI endoscopy procedure for Espinoza Rizvi Dear Dr. Nunez This procedure was performed on Saturday, June 17, 2023. My impressions and recommendations are as follows: Impressions : - Small (< 5 mm) esophageal varices. - No gross lesions in the entire stomach. - A single duodenal polyp. Clip was placed. 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 - No specimens collected. Recommendations : - Return patient to [facility] for [facility]. - Resume previous diet. - Continue present medications. My findings are described in the full procedure note, which is enclosed. If I can be of further assistance, please feel free to contact me at . Sincerely, Wolfgang Garay, 06/17/2023 12:52:50 PM This report has been signed electronically.
--- NOTE | 2023-06-17 12:53 | OP.EGD_ITS ---
Patient Name: Espinoza Rizvi Procedure Date: 06/17/2023 11:37 AM Date of : 1945 Age: 77 Procedure: Upper GI endoscopy Indications: Melena Providers: Wolfgang Garay DO Medicines: Monitored Anesthesia Care Patient Profile: This is a 77 year old male. Refer to note in patient chart for documentation of history and physical. Patient has symptoms of acute dyspepsia. Complications: No immediate complications. Procedure: Pre-Anesthesia Assessment: - Prior to the procedure, a History and Physical was performed, and patient medications and allergies were reviewed. The patient is competent. The risks and benefits of the procedure and the sedation options and risks were discussed with the patient. All questions were answered and informed consent was obtained. Patient identification and proposed procedure were verified by the physician in the pre-procedure area. Mental Status Examination: alert and oriented. Airway Examination: normal oropharyngeal airway and neck mobility. Respiratory Examination: clear to auscultation. CV Examination: normal. Prophylactic Antibiotics: The patient does not require prophylactic antibiotics. Prior Anticoagulants: The patient has taken no anticoagulant or antiplatelet agents. After reviewing the risks and benefits, the patient was deemed in satisfactory condition to undergo the procedure. The anesthesia plan was to use monitored anesthesia care (MAC). Immediately prior to administration of medications, the patient was re-assessed for adequacy to receive sedatives. The heart rate, respiratory rate, oxygen saturations, blood pressure, adequacy of pulmonary ventilation, and response to care were monitored throughout the procedure. The physical status of the patient was re-assessed after the procedure. After obtaining informed consent, the endoscope was passed under direct vision. Throughout the procedure, the patient's blood pressure, pulse, and oxygen saturations were monitored continuously. The Colonoscope was introduced through the mouth, and advanced to the second part of duodenum. The upper GI endoscopy was accomplished without difficulty. The patient tolerated the procedure well. Scope In: 11:58:21 AM Scope Out: 12:00:56 PM Total Procedure Duration Time 0 hours 2 minutes 35 seconds Findings: Small (< 5 mm) varices were found in the lower third of the esophagus. They were 5 mm in largest diameter. No gross lesions were noted in the entire examined stomach. A single 5 mm sessile polyp was found in the first portion of the duodenum. To prevent bleeding post-intervention, one hemostatic clip was successfully placed. 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 There was no bleeding at the end of the procedure. Impression: - Small (< 5 mm) esophageal varices. - No gross lesions in the entire stomach. - A single duodenal polyp. Clip was placed. 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 - No specimens collected. Recommendation: - [facility]. - Resume previous diet. - Continue present medications. Procedure Code(s): --- Professional --- 62468, Esophagogastroduodenoscopy, flexible, transoral; diagnostic, including collection of specimen(s) by brushing or washing, when performed (separate procedure) CPT copyright 2021 [employer]. All rights reserved. The codes documented in this report are preliminary and upon cafeteria supervisor review may be revised to meet current compliance requirements. Wolfgang Garay DO 06/17/2023 12:52:50 PM This report has been signed electronically. Number of Addenda: 0 Note Initiated On: 06/17/2023 11:37 AM
--- NOTE | 2023-06-17 12:59 | OP.CCLET_ITS ---
06/17/2023 Martin Nunez [address] [place] [address] Re : Colonoscopy procedure for Espinoza Rizvi Dear Dr. Nunez This procedure was performed on Saturday, June 17, 2023. My impressions and recommendations are as follows: Impressions : - Preparation of the colon was fair. - Diverticulosis in the recto-sigmoid colon, in the sigmoid colon and in the descending colon. - Stool in the recto-sigmoid colon, in the sigmoid colon, at the hepatic flexure and in the cecum. - Moderate diverticulosis in the recto-sigmoid colon. There was active bleeding coming from the diverticular opening. Injected. Tattooed. Clips were placed. 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 - Mild inflammation was found in the ileum secondary to ileitis. Biopsied. Recommendations : - [facility]. - No repeat colonoscopy due to age. - Continue present medications. My findings are described in the full procedure note, which is enclosed. If I can be of further assistance, please feel free to contact me at . Sincerely, Wolfgang Garay, 06/17/2023 12:58:57 PM This report has been signed electronically.
--- NOTE | 2023-06-17 12:59 | OP.COLON_ITS ---
Patient Name: Espinoza Rizvi Procedure Date: 06/17/2023 12:01 PM Date of : 1945 Age: 77 Procedure: Colonoscopy Indications: Hematochezia Providers: Wolfgang Garay DO Medicines: Monitored Anesthesia Care Patient Profile: This is a 77 year old male. Refer to note in patient chart for documentation of history and physical. Patient has symptoms of acute dyspepsia. Last Colonoscopy: within the past 3 months. Complications: No immediate complications. Procedure: Pre-Anesthesia Assessment: - Prior to the procedure, a History and Physical was performed, and patient medications and allergies were reviewed. The patient is competent. The risks and benefits of the procedure and the sedation options and risks were discussed with the patient. All questions were answered and informed consent was obtained. Patient identification and proposed procedure were verified by the physician in the pre-procedure area. Mental Status Examination: alert and oriented. Airway Examination: normal oropharyngeal airway and neck mobility. Respiratory Examination: clear to auscultation. CV Examination: normal. Prophylactic Antibiotics: The patient does not require prophylactic antibiotics. Prior Anticoagulants: The patient has taken no anticoagulant or antiplatelet agents. After reviewing the risks and benefits, the patient was deemed in satisfactory condition to undergo the procedure. The anesthesia plan was to use monitored anesthesia care (MAC). Immediately prior to administration of medications, the patient was re-assessed for adequacy to receive sedatives. The heart rate, respiratory rate, oxygen saturations, blood pressure, adequacy of pulmonary ventilation, and response to care were monitored throughout the procedure. The physical status of the patient was re-assessed after the procedure. After I obtained informed consent, the scope was passed under direct vision. Throughout the procedure, the patient's blood pressure, pulse, and oxygen saturations were monitored continuously. The Colonoscope was introduced through the anus and advanced to the terminal ileum. The colonoscopy was performed without difficulty. The patient tolerated the procedure well. The quality of the bowel preparation was fair. Scope In: 12:03:56 PM Scope Withdrawal Time 0 hours 27 minutes 42 seconds Scope Out: 12:46:52 PM Total Procedure Duration Time 0 hours 42 minutes 56 seconds Findings: The perianal and digital rectal examinations were normal. Multiple small and large-mouthed diverticula were found in the recto-sigmoid colon, sigmoid colon and descending colon. Stool was found in the recto-sigmoid colon, in the sigmoid colon, at the hepatic flexure and in the cecum. Multiple small and large-mouthed diverticula were found in the recto-sigmoid colon. There was active bleeding coming from the diverticular opening. Area was successfully injected with 8 mL of a 0.1 mg/mL solution of epinephrine for drug delivery. Area was tattooed with an injection of Domonique ink. To prevent bleeding post-maneuver, two hemostatic clips were successfully placed. 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 There was no bleeding at the end of the procedure. Patchy mild inflammation characterized by erosions, erythema and friability was found in the distal ileum and in the terminal ileum. Biopsies were taken with a cold forceps for histology. Verification of patient identification for the specimen was done. Estimated blood loss was minimal. Impression: - Preparation of the colon was fair. - Diverticulosis in the recto-sigmoid colon, in the sigmoid colon and in the descending colon. - Stool in the recto-sigmoid colon, in the sigmoid colon, at the hepatic flexure and in the cecum. - Moderate diverticulosis in the recto-sigmoid colon. There was active bleeding coming from the diverticular opening. Injected. Tattooed. Clips were placed. 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 - Mild inflammation was found in the ileum secondary to ileitis. Biopsied. Recommendation: - [facility] care. - No repeat colonoscopy due to age. - Continue present medications. Procedure Code(s): --- Professional --- 77097, Colonoscopy, flexible; with biopsy, single or multiple 11322, Colonoscopy, flexible; with directed submucosal injection(s), any substance CPT copyright 2021 [employer]. All rights reserved. The codes documented in this report are preliminary and upon mail service coordinator review may be revised to meet current compliance requirements. Wolfgang Garay DO 06/17/2023 12:58:57 PM This report has been signed electronically. Number of Addenda: 0 Note Initiated On: 06/17/2023 12:01 PM
--- NOTE | 2023-06-17 13:55 | CASEMGMT ---
Addendum entered by Nelly Horn 06/17/23 14:38: [facility] SN does wound care, as pt just had toe amputation a couple weeks ago. Original Note: KRUPA GOMES Assessment: KRUPA GOMES to room to meet with patient for initial transition planning/care coordination assessment. KRUPA GOMES introduced self and role at [facility]. Patient lying in bed, alert and oriented. Patient willing to participate in assessment and is able to answer all questions appropriately. Son, Paul, and granddaughter @ bedside and pt agreeable to them being present during assessment. Care providers, pharmacy, and demographics verified. PCP: Dr Nunez Specialists: Dr He, hearse driver; ZAHRA, cardiology; Dr Hill, podiatry; Dr Wahl, cardiovascular interventionalist @ [facility] HCD: Patient goes to OP HD TTS at [facility]. Chair time @ 1010. Preferred Pharmacy: [facility] Insurance: [employer] [place] Prescription Benefit: yes, [employer] LNOK: sonPaul Living Arrangements: Patient lives alone in a single story home with no steps to enter. Patient states he is independent w/ADL's and IADL's and manages his own appts and medications. Son can assist if needed. Transportation: self, son DME: Patient states he has built in shower chair, cane, walker, grab bars, pulse ox, and home oxygen through [employer] with POC. KRUPA GOMES inquired if the POC is @ [facility] for him to go home on. Pt states, I don't need it and I only wear it when I go to dialysis . Pt currently on RA. \ SNF/HHC: Pt has been to [facility] and [facility] in the past. Pt is active w/[facility] for SN and OT and he would like to resume @ discharge and list of other HHC options declined. [facility] order placed. KRUPA GOMES spoke w/Bridget @ [facility] and she was made aware pt has been admitted to [facility]. Na, store planner, to send [facility] to [facility] via [facility]. Green sheet placed on chart w/instructions for HHC resumption if pt discharges home over the w/e. Plan: Home w/[facility] Joviat NAIR RN, CM
--- NOTE | 2023-06-17 14:31 | CHAPLAIN ---
Type of Pastoral Visit ___ Initial Visit ___ Follow-up Visit ___ On-call Visit ___ General Patient Visit ___ Spiritual Assessment ___ Family Conference ___ Bereavement ___ Rapid Response ___ Code Blue ___ Other (describe below) Pastoral Care Referral From ___ Patient ___ Family ___ Nurse ___ Physician ___ Director Critical Care ___ Risk Lead ___ Other (describe below) Sacrament/Intervention ___ Active listening ___ Anointing ___ Christian ___ Bereavement ___ Communion ___ Klarissa exploration ___ ___ Life review ___ Prayer ___ Reconciliation ___ Sacrament of Sick ___ Supportive presence ___ Wedding ___ Other (describe below) Pastoral Comments patient is out of the room when visit was attempted
--- NOTE | 2023-06-17 15:03 | CASEMGMT ---
Discharge Planning Resumption of HH referral sent to N via [facility]. Na Gordon, Discharge Planning Asst.
[2023-06-17] MEDS: Folic Acid/Vitamin B Comp W-C 1 Capsule 1 CAP PO (19:49)
[2023-06-17] MEDS: Vitamin B Comp W-C Capsule 1 CAP PO (19:50)
[2023-06-17] MEDS: Sucralfate 1 GM Tablet PO (19:50)
[2023-06-17] MEDS: Carvedilol 3.125 MG TABLET PO (19:51)
[2023-06-17] MEDS: Atorvastatin Calcium 20 MG Tablet PO (19:53)
[2023-06-17] MEDS: Amiodarone 200 MG Tablet PO (19:54)
[2023-06-18] VITALS (19 sets, daily range): BP systolic 100–212; BP diastolic 42–74; PULSE 63–86; RESP 14–18; TEMP 36–36.8; O2SAT 91–97; BMI 32.1; BMI 31.3
[2023-06-18] MEDS: Sucralfate 1 GM Tablet PO ×3 (05:29→15:41)
[2023-06-18 06:14] LABS: Absolute Lymphocyte Count 0.64 X10^3/uL (0.83-4.51); Absolute Neutrophil Count 4.3 X10^3/uL (2.0-7.7); Basophil# 0.01 X10^3/uL; Basophil% 0.2 % (0-1); Eosinophil# 0.09 X10^3/uL; Eosinophils% 1.6 % (0-5); Hematocrit 22.1 % (40-54); Hemoglobin 6.9 g/dL (13.0-16.5); Lymphocyte # 0.64 X10^3/ul (0.83-4.51); Lymphocyte % 11.5 % (19-41); Mean Corp Hgb Conc 31.2 g/dL (32-36); Mean Corpuscular Hgb 33.7 pg (27.0-32.0); Mean Corpuscular Volume 107.8 fL (80-94); Mean Platelet Vol. 10.9 fl (6.2-12.0); Monocyte# 0.54 X10^3/uL; Monocyte% 9.7 % (0-10); NRBC Flagged by Analyzer 0.9 % (0-5); Neutrophil # 4.25 X10^3/uL (2.7-7.7); Neutrophil % 76.6 % (47-70); POSITIVE COUNT YES; POSITIVE MORPHOLOGY YES; Platelet Count 62 K/mm3 (150-450); RBC Distribution Width CV 19.9 % (11.6-14.6); RBC Distribution Width SD 75.6 fl (35.1-43.9); Red Blood Count 2.05 M/mm3 (4.6-6.2); White Blood Count 5.6 K/mm3 (4.4-11.0)
[2023-06-18 06:36] LABS: Anion Gap 8 (5-15); BUN 48 mg/dL (7-18); BUN/Creat Ratio 8.1 RATIO (10-20); Chloride 102 mmol/L (98-107); Creatinine, Serum 5.95 mg/dL (0.70-1.30); EST Glomerular Filtration Rate 10 mL/min (>60); Est Glom Filt Rate - Afr Amer 12 mL/min (>60); Estimated Creatinine Clearance 10.56 ml/min; Glucose 97 mg/dL (74-106); Potassium 4.1 mmol/L (3.5-5.1); Sodium Level 139 mmol/L (136-145)
[2023-06-18] MEDS: PureFlow B 3K Dialysis Soln 1 BAG 6 BAG PF (07:37)
[2023-06-18] MEDS: 0.9% Normal Saline 1,000 ML IV.SOLN. 1000 ML OPERA.SITE (07:37)
[2023-06-18 09:12] LABS: Anisocytosis 2+; Differential Comment SCANNED; Microcytosis 1+; Platelet Estimate MOD DEC (ADEQ)
[2023-06-18 09:13] LABS: Macrocytosis 1+
--- NOTE | 2023-06-18 10:26 | EX.PCM.PN.GI ---
Subjective Subjective Patient had a small amount of diarrhea stool overnight with possible small amount of blood in his stool. He is tolerating a diet without any problems. Objective Data Objective Data Vital Signs: Vital Signs Temp Pulse Resp BP Pulse Ox O2 Del Method 96.8 F L 71 14 107/42 L 94 Room Air 06/18/23 03:45 06/18/23 10:23 06/18/23 10:23 06/18/23 10:23 06/18/23 07:10 06/18/23 10:23 Oxygen Delivery Method Room Air Weight: 217 lb 2.485 oz Body Mass Index (BMI) 32.1 Intake & Output: Intake and Output for Last 24 Hours 06/16/23 06/17/23 06/18/23 23:59 23:59 23:59 Intake Total 35 / 155 3325 / 3445 340 / 340 Output Total 0 / 0 Balance 35 / 155 3325 / 3445 340 / 340 Lab / Micro Data 06/18/23 06:00 06/18/23 06:00 Labs: Laboratory Results - last 24 hr 06/16/23 16:35: Diff Path Review Reviewed 06/18/23 06:00: WBC 5.6, RBC 2.05 L, Hgb 6.9 L, Hct 22.1 L, MCV 107.8 H, MCH 33.7 H, MCHC 31.2 L D, RDW Std Deviation 75.6 H, RDW Coeff of Lencho 19.9 H, Plt Count 62 L, MPV 10.9, Immature Gran % (Auto) 0.400, Neut % (Auto) 76.6 H, Lymph % (Auto) 11.5 L, Loup % (Auto) 9.7, Eos % (Auto) 1.6, Baso % (Auto) 0.2, Absolute Neuts (auto) 4.3, Absolute Lymphs (auto) 0.64 L, Nucleated RBC % 0.9, Differential Comment SCANNED, Platelet Estimate MOD DEC, Anisocytosis 2+, Microcytosis 1+, Macrocytosis 1+, Sodium 139, Potassium 4.1, Chloride 102, Carbon Dioxide 29.0, Anion Gap 8, BUN 48 H, Creatinine 5.95 H, Estim Creat Clear Calc 10.56, Est GFR (MDRD) Af Amer 12 L, Est GFR (MDRD) Non-Af 10 L, BUN/Creatinine Ratio 8.1 L, Glucose 97, Calcium 8.0 L Physical Exam Narrative Physical Examination: General: Awake, alert, oriented x 3 and cooperative, seated upright in the ED bed in no apparent distress, fatigued appearing. Skin: Normal color, normal turgor, no icterus, no cyanosis except for notable venous stasis skin changes, occasional abrasion, occasional staged ecchymoses, recent left great toe resection with no drainage noted. HEENT: AT/NC, EOMI, PERRLA, mildly dry MM, no carotid bruits or JVD noted. Lungs: Diminished, greater bases, proper effort, no rales, ronchi or wheezing. Heart: Currently regular rate and rhythm; no gallop, rub audible. Abdomen: Soft, obese, NTTP, ND, distant normal BS, no appreciated HSM. Extremities: No cyanosis, no clubbing, significant pedal to proximal lower extremity pitting edema, status post recent left great toe resection, no drainage noted. Neurological: Patient awake, alert, oriented as noted, cognitive function intact; pupils equally reactive to light and accommodation, cranial nerves grossly normal, moving all 4 extremities, strength moderately to severely globally decreased secondary to acute presentation complicated by underlying comorbidities. Psychiatric: Affect appears fatigued, no acute evidence of depressive or anxiety feelings. Assessment & Plan Assessment/Plan (1) Acute blood loss anemia (ABLA): (2) Acute GI bleeding: (3) Hematochezia: (4) Acute on chronic anemia: (5) Duodenal ulcer: PLAN: Plan GI bleed secondary to duodenal ulcers x3 -EGD performed on 03/03/2023 showed normal upper third of the esophagus with grade a esophagitis, small hiatal hernia, erosive gastropathy with no stigmata of bleeding that was biopsies and 3 oozing duodenal ulcers with pigmented material that were injected and treated with heater probe -EGD yesterday also displayed bleeding in the duodenum secondary to anticoagulation causing ulceration in the duodenum status post endoscopic treatment. -Continue Protonix 40 mg p.o. twice daily for 8 weeks and then transition to daily -Continue Carafate 1 g 4 times daily -We will be performing a repeat upper endoscopy and colonoscopy to evaluate his upper GI tract to see if the restarting of his Eliquis because recurrent GI bleeding. Acute on chronic anemia with chronic anemia secondary to chronic renal disease -Chronic anemia due to end-stage renal disease on HD -Transfuse for hemoglobin less than 7 -Hemoglobin is 8.1 today -Continue home iron supplementation -Procrit per nephrology -He also has intermittent thrombocytopenia that I am not sure it is secondary to underlying mild dysplastic syndrome in the setting of increased MCV or reticulocytosis. He should see hematology as an outpatient. 06/18-patient's hemoglobin did drop down to 6.9. Recommendation is to transfuse 2 units of packed red blood cells. GI bleed is secondary to diverticular bleed in the setting of chronic kidney via from kidney disease and the need for anticoagulation with Eliquis. Continue to monitor. The lesion was tattooed so if it does continue to bleed it can be located again or he can get possible sigmoid resection. Charges/Coding Visit Charges Inpatient E&M: 08465 Subs Hosp L3
--- NOTE | 2023-06-18 10:38 | PCM.PN.HOSP ---
Reason for Visit Reason for Visit: Diagnoses Acute posthemorrhagic anemia (06/16/23) Anemia, unspecified (06/16/23) Duodenal ulcer, unspecified as acute or chronic, without hemorrhage or perforation (06/16/23) Melena (06/16/23) Gastrointestinal hemorrhage, unspecified (06/16/23) Objective Data Objective Data Vital Signs: Vital Signs Temp Pulse Resp BP Pulse Ox O2 Del Method 96.8 F L 71 14 107/42 L 96 Room Air 06/18/23 03:45 06/18/23 10:23 06/18/23 10:23 06/18/23 10:23 06/18/23 08:35 06/18/23 10:23 Oxygen Delivery Method Room Air Weight: 217 lb 2.485 oz Body Mass Index (BMI) 32.1 Intake & Output: Intake and Output for Last 24 Hours 06/16/23 06/17/23 06/18/23 23:59 23:59 23:59 Intake Total 35 / 155 3325 / 3445 340 / 340 Output Total 0 / 0 Balance 35 / 155 3325 / 3445 340 / 340 Lab / Micro Data 06/18/23 06:00 06/18/23 06:00 Labs: Laboratory Results - last 24 hr 06/16/23 16:35: Diff Path Review Reviewed 06/18/23 06:00: WBC 5.6, RBC 2.05 L, Hgb 6.9 L, Hct 22.1 L, MCV 107.8 H, MCH 33.7 H, MCHC 31.2 L D, RDW Std Deviation 75.6 H, RDW Coeff of Lencho 19.9 H, Plt Count 62 L, MPV 10.9, Immature Gran % (Auto) 0.400, Neut % (Auto) 76.6 H, Lymph % (Auto) 11.5 L, [place] % (Auto) 9.7, Eos % (Auto) 1.6, Baso % (Auto) 0.2, Absolute Neuts (auto) 4.3, Absolute Lymphs (auto) 0.64 L, Nucleated RBC % 0.9, Differential Comment SCANNED, Platelet Estimate MOD DEC, Anisocytosis 2+, Microcytosis 1+, Macrocytosis 1+, Sodium 139, Potassium 4.1, Chloride 102, Carbon Dioxide 29.0, Anion Gap 8, BUN 48 H, Creatinine 5.95 H, Estim Creat Clear Calc 10.56, Est GFR (MDRD) Af Amer 12 L, Est GFR (MDRD) Non-Af 10 L, BUN/Creatinine Ratio 8.1 L, Glucose 97, Calcium 8.0 L Physical Exam Narrative Seen and examined. Denies any external bleeding like GI bleed, hematuria or hemoptysis. Patient is on hemodialysis. No acute symptoms. No fever. No abdominal pain Physical exam General: Alert, Oriented x3, Cooperative HEENT: Atraumatic, PERRLA, EOMI, Normocephalic Oral: No Gingival or Mucosal Lesions/ Ulcerations Neck: Right upper chest Mediport supple, No JVD, Negative Carotid Bruits Lungs: Air entry diminished in bilateral lung bases. No crepitation/rhonchi Cardiovascular: Regular rate, Regular Rhythm, Normal S1, Normal S2, No murmurs Abdomen: Bowel Sounds Present, Soft, Non Tender, Non-Distended : On hemodialysis. Arm AV fistula. No renal angle tenderness. No suprapubic tenderness. Extremities: No edema, Capillary Refill Less than 3 Seconds Skin: No rashes, No breakdown Musculoskeletal: No Tenderness to Palpation of Joints or Extremities Neurological: Cranial nerves II-XII grossly intact, DTR 2+/4. No acute focal neurological deficit. Psych/Mental Status: Normal Affect, Appropriate. Assessment & Plan Assessment/Plan (1) ABLA (acute blood loss anemia): PLAN: Plan The patient is a 77 y/o M was admitted on monitored bed on 06/16/23 with admitted through ER for severe anemia found hemoglobin 7.1 on the day of dialysis on 06/16. It was 9.5 a week ago. Patient has history of PAD, A-fib, prior DVT and PE on Eliquis and Plavix. #1. Acute GI Bleed w/ resultant Acute Blood Loss Anemia on Chronic/AOCD/Fe deficiency anemia w/ recently noted duodenal ulcer and history of peptic ulcer disease concurrently: Patient is admitted to PCU. BP on lower side therefore midodrine added. Conservative IV fluid due to history of diastolic heart failure. IV PPI. Plavix continued as patient had recently stent. Hold Eliquis. EGD and colonoscopy on 05/18/2023: Impressions : - Normal esophagus. - Medium-sized hiatal hernia. - Oozing duodenal ulcer with a visible vessel. Injected. Treated with a heater probe. Clips were placed. Impression: - Preparation of the colon was poor. - Diverticulosis at the anus, in the recto-sigmoid colon, in the sigmoid colon, in the descending colon, at the splenic flexure and in the transverse colon. - Stool in the entire examined colon. EGD 06/17/2023 Impressions : - Small (< 5 mm) esophageal varices. - No gross lesions in the entire stomach. - A single duodenal polyp. Clip was placed. 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 - No specimens collected. Recommendations : - [facility]. - Resume previous diet. - Continue present medications. Impression: - Preparation of the colon was fair. - Diverticulosis in the recto-sigmoid colon, in the sigmoid colon and in the descending colon. - Stool in the recto-sigmoid colon, in the sigmoid colon, at the hepatic flexure and in the cecum. - Moderate diverticulosis in the recto-sigmoid colon. There was active bleeding coming from the diverticular opening. Injected. Tattooed. Clips were placed. 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 - Mild inflammation was found in the ileum secondary to ileitis. Biopsied. Recommendation: - [facility] for [facility] care. - No repeat colonoscopy due to age. - Continue present medications. #2. PAD w/ recent L great toe osteomyelitis: Patient follows Dr. Miramontes for left great toe wound with peripheral arterial disease. L EAS with noncompressible vessels bilaterally but with monophasic waveform left lower extremity and TBI 0.2 status post previous thrombectomy patient had LLE angioplasty and PCI x 3. Because of the recent stent, legs continued although Eliquis held. #3. Acute on chronic thrombocytopenia: Admission platelet 47, baseline previously in April in the 70 range but does appear to vacillate, complicates presentation, holding anticoagulant but because of recent PCI will need to continue plavix, trend CBC and if necessary may administer platelet therapy. #4. HFpEF: 06/30/2022 echocardiogram with normal LV systolic function, EF 60%, mild concentric LVH, mildly dilated RV, severely enlarged LA and moderately enlarged RA, mild MVI, mild TVI, RVSP 31 mmHg with inability to assess diastolic function on that echo, continuing plavix as noted, adding statin, continue coreg as BP allows, not on MARCELA/ARB. #5. ESRD: Patient with dialysis on day of presentation with known Tuesday, , Tuesday regimen, will consult nephrology Dr. He to continue. #6. PAF: continue patient home amiodarone as well as Coreg as BP allows, holding Eliquis regimen. #7. History of VTE: Patient with previous history of DVT and PE, holding anticoagulation given significant presentation with acute blood loss anemia, restart once appropriate. #8. Hypertension: Noted history however patient was significantly chronically reduced blood pressures likely following his start on dialysis, will attempt to continue amiodarone and Coreg for his underlying A-fib but may need to hold the Coreg. #9. Hyperlipidemia: From recommendation per vascular surgery will initiate at least a moderate dose statin therapy as there is no allergy listed. #10. History lymphoma, bladder cancer: Patient status post remote history of bladder resection and reconstruction considered in remission as well as a history of lymphoma treated with per son chemotherapy also considered in remission. Follow-up with urology as well as oncology as previously arranged. #11. Former tobacco use: Encourage continued tobacco cessation. #12. DVT prophylaxis: SCDs, holding patient anticoagulant therapy. #13. CODE status: Patient DEANNA is his son who is present and living will is currently in place. Discussed CODE status at length including difference between FULL code, DNR-CCA and DNR-CC status. Following discussions about the differences in these status, requested Full Code which was confirmed and prognosis/outcome discussed given his history.
[2023-06-18] MEDS: 0.9% Saline Lock 10 ML Syringe IV ×2 (11:12→17:28)
[2023-06-18] MEDS: Vitamin B Comp W-C Capsule 1 CAP PO (11:13)
[2023-06-18] MEDS: Folic Acid/Vitamin B Comp W-C 1 Capsule 1 CAP PO (11:13)
[2023-06-18] MEDS: Pantoprazole Sodium 80 MG in 0.9% Normal Saline (100mL Bag) 80 ML 10 MG CONT INF (11:13)
[2023-06-18] MEDS: Amiodarone 200 MG Tablet PO (11:14)
[2023-06-18] MEDS: Carvedilol 3.125 MG TABLET PO (11:14)
[2023-06-18] MEDS: Clopidogrel Bisulfate 75 MG Tablet PO (11:14)
--- NOTE | 2023-06-18 11:42 | DCINST_ITS ---
Discharge Instructions Diet Discharge Diet: No restrictions Activity Discharge Activity: Return to Normal Activity Weight Bearing Status: Weight bearing as tolerated Dressing / Incision Call your doctor if you observe: Fever of 101 or Higher, Coldness, Increased Pain, Numbness or Tingling, Change in Color, Inability to urinate, Inability to have a bowel movement, Shortness of breath, Dizziness, Fainting spells, Swelling in the ankles, Chest pain, Prolonged hiccupping, Increased palpitations (irregular heartbeat) and Calf discomfort Follow Up Care When: IN 2 WEEKS Test Results: Test results from this visit will be discussed in further detail at your follow- up appointment, if applicable. Discharge Plan Admission Admit Date/Time: 06/16/23 18:20 Primary Reason for Your Visit: GI bleed. Attending Provider: Anselmo Renae Primary Care Provider: Martin Nunez Consulting Providers: Lisa James; Sonia He Discharge Orders/Prescriptions Prescriptions: New ferrous sulfate 325 mg (65 mg iron) tablet,delayed release (DR/EC) 325 mg PO DAILY Qty: 30 2RF ascorbate calcium (vitamin C) 500 mg tablet 1 g PO BID Qty: 60 2RF Continued carvedilol 6.25 MG tablet 3.125 mg PO BID vitamin B complex 1 EACH tablet 1 tab PO DAILY Velphoro 500 mg tablet,chewable 500 mg PO .with meals sucralfate 1 gram Tablet 1 g PO 1HR_ACHS Qty: 120 0RF budesonide 3 mg capsule,delayed,extend.release 9 mg PO DAILY Bibiana-Leoncio 0.8 mg tablet 1 tab PO DAILY Patient Comments: TAKE 1 TABLET BY MOUTH EVERY DAY WITH FOOD pantoprazole 40 mg Tablet,Delayed Release (Dr/Ec) 40 mg PO BID Qty: 60 3RF Rx Instructions: Take twice daily for 8 weeks then will decrease to daily amiodarone 200 mg tablet 200 mg PO DAILY Qty: 30 11RF Rx Instructions: Twice daily for 7 days then decrease to 1 tablet daily Held Eliquis 2.5 mg tablet 2.5 mg PO BID Hold Instructions: Hold for 5 days. Referrals / Follow Up: Martin Nunez DO [Primary Care Provider] - Disposition Disposition (needs filled in before D/C Order can be placed): Home Health Service
--- NOTE | 2023-06-18 14:25 | PCM.DC.SUM ---
Providers Date of Admission: 06/16/23 Date of Discharge: 06/18/23 Primary Care Physician: Dr. Martin Nunez, Consultations 06/16/23 19:25 Consult: Gastroenterology Routine Consulting Provider: [facility] Reason for Consult: ? GI bleed recurrence, Hgb 9-7 per HD EMERGENT Consult: No Notified: Yes Date Notified: 06/16/23 Time Notified: 18:22 Method of Notification: Text Consult: Nephrology Routine Consulting Provider: Sonia He Reason for Consult: ESRD on HD EMERGENT Consult: No Notified: Yes Date Notified: 06/17/23 Time Notified: 06:32 Method of Notification: Text Reason For Visit: POSS GI BLEED,ABLA Diagnosis Discharge Diagnosis (1) ABLA (acute blood loss anemia): Status: Acute Code(s): D62 - Acute posthemorrhagic anemia Plan The patient is a 77 y/o M was admitted on monitored bed on 06/16/23 with admitted through ER for severe anemia found hemoglobin 7.1 on the day of dialysis on 06/16. It was 9.5 a week ago. Patient has history of PAD, A-fib, prior DVT and PE on Eliquis and Plavix. #1. Acute GI Bleed w/ resultant Acute Blood Loss Anemia on Chronic/AOCD/Fe deficiency anemia w/ recently noted duodenal ulcer and history of peptic ulcer disease concurrently: Patient is admitted to PCU. BP on lower side therefore midodrine added. Conservative IV fluid due to history of diastolic heart failure. IV PPI. Plavix continued as patient had recently stent. Hold Eliquis. EGD and colonoscopy on 05/18/2023: Impressions : - Normal esophagus. - Medium-sized hiatal hernia. - Oozing duodenal ulcer with a visible vessel. Injected. Treated with a heater probe. Clips were placed. Impression: - Preparation of the colon was poor. - Diverticulosis at the anus, in the recto-sigmoid colon, in the sigmoid colon, in the descending colon, at the splenic flexure and in the transverse colon. - Stool in the entire examined colon. EGD and colonoscopy 06/17/2023 Impressions : - Small (< 5 mm) esophageal varices. - No gross lesions in the entire stomach. - A single duodenal polyp. Clip was placed. 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 - No specimens collected. Colonoscopy Impression: - Preparation of the colon was fair. - Diverticulosis in the recto-sigmoid colon, in the sigmoid colon and in the descending colon. - Stool in the recto-sigmoid colon, in the sigmoid colon, at the hepatic flexure and in the cecum. - Moderate diverticulosis in the recto-sigmoid colon. There was active bleeding coming from the diverticular opening. Injected. Tattooed. Clips were placed. 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 - Mild inflammation was found in the ileum secondary to ileitis. Biopsied. Patient is already on pantoprazole 40 mg twice daily and new prescription given. Patient dropped his hemoglobin to 6.9 but patient has baseline anemia and his hemoglobin usually around 8.0. 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 #2. PAD w/ recent L great toe osteomyelitis: Patient follows Dr. Miramontes for left great toe wound with peripheral arterial disease. L EAS with noncompressible vessels bilaterally but with monophasic waveform left lower extremity and TBI 0.2 status post previous thrombectomy patient had LLE angioplasty and PCI x 3. Because of the recent stent, Plavix continued. #3. Acute on chronic thrombocytopenia: Admission platelet 47, baseline previously in April in the 70 range but does appear to vacillate, complicates presentation, holding anticoagulant but because of recent PCI will need to continue plavix, trend CBC and if necessary may administer platelet therapy. 06/18: Platelet is stable around 60s. #4. HFpEF: 06/30/2022 echocardiogram with normal LV systolic function, EF 60%, mild concentric LVH, mildly dilated RV, severely enlarged LA and moderately enlarged RA, mild MVI, mild TVI, RVSP 31 mmHg with inability to assess diastolic function on that echo, continuing plavix as noted, adding statin, continue coreg as BP allows, not on MARCELA/ARB. #5. ESRD: Patient with dialysis on day of presentation with known Tuesday, , Tuesday regimen, will consult nephrology Dr. He to continue. 06/18: Patient had dialysis today. #6. PAF: continue patient home amiodarone as well as Coreg as BP allows, holding Eliquis regimen. #7. History of VTE: Patient with previous history of DVT and PE, holding anticoagulation given significant presentation with acute blood loss anemia, restart once appropriate. #8. Hypertension: Noted history however patient was significantly chronically reduced blood pressures likely following his start on dialysis, will attempt to continue amiodarone and Coreg for his underlying A-fib but may need to hold the Coreg. #9. Hyperlipidemia: From recommendation per vascular surgery will initiate at least a moderate dose statin therapy as there is no allergy listed. #10. History lymphoma, bladder cancer: Patient status post remote history of bladder resection and reconstruction considered in remission as well as a history of lymphoma treated with per son chemotherapy also considered in remission. Follow-up with urology as well as oncology as previously arranged. #11. Former tobacco use: Encourage continued tobacco cessation. #12. DVT prophylaxis: SCDs, holding patient anticoagulant therapy. #13. CODE status: Patient DEANNA is his son who is present and living will is currently in place. Discussed CODE status at length including difference between FULL code, DNR-CCA and DNR-CC status. Following discussions about the differences in these status, requested Full Code which was confirmed and prognosis/outcome discussed given his history. Discharge medication reconciliation done. Discharge follow-up instructions completed. Discharge process discussed with the patient and all questions were answered to patient's satisfaction. Follow with PCP in 1 to 2 weeks Total time spent, exact 35 minutes on discharge meds reconciliation, examination, coordination of care with nurses and ancillary staff, review of imaging and blood test and discussion with the patient on follow-up instructions. Medications at Discharge Home Medications carvedilol 6.25 mg tablet 3.125 mg PO BID blood pressure 04/24/17 vitamin B complex 1 tab PO DAILY SUPPLEMENT 07/02/20 sucroferric oxyhydroxide 500 mg chewable tablet (Velphoro) 500 mg PO .with meals anemia 03/01/23 sucralfate 1 gram tablet 1 g PO 1HR_ACHS reflux #120 tabs 03/05/23 amiodarone 200 mg tablet 200 mg PO DAILY heart rate #30 tabs 04/04/23 apixaban 2.5 mg tablet (Eliquis) 2.5 mg PO BID blood thinner 04/04/23 budesonide 3 mg capsule,delayed,extended release 9 mg PO DAILY stomach 06/16/23 vitamin B complex-vitamin C-folic acid 0.8 mg tablet (Bibiana-Leoncio) 1 tab PO DAILY supplement 06/16/23 ascorbate calcium (vitamin C) 500 mg tablet 1 g (2 x 500 mg) PO BID #60 tabs 06/18/23 clopidogrel 75 mg tablet 75 mg PO DAILY #0 tabs 06/18/23 ferrous sulfate 325 mg (65 mg iron) tablet,delayed release 325 mg PO DAILY #30 tabs 06/18/23 pantoprazole 40 mg tablet,delayed release 40 mg PO BID reflux #60 tabs 06/18/23 Physical Exam Narrative Seen and examined. Denies any external bleeding like GI bleed, hematuria or hemoptysis. Patient is on hemodialysis Tuesday and Tuesday and had dialysis today. His hemoglobin dropped to 6.9 g. No acute symptoms. No fever. No abdominal pain Physical exam General: Alert, Oriented x3, Cooperative HEENT: Atraumatic, PERRLA, EOMI, Normocephalic Oral: No Gingival or Mucosal Lesions/ Ulcerations Neck: Right upper chest Mediport supple, No JVD, Negative Carotid Bruits Lungs: Air entry diminished in bilateral lung bases. No crepitation/rhonchi Cardiovascular: Regular rate, Regular Rhythm, Normal S1, Normal S2, No murmurs Abdomen: Bowel Sounds Present, Soft, Non Tender, Non-Distended : On hemodialysis. Arm AV fistula. No renal angle tenderness. No suprapubic tenderness. Extremities: No edema, Capillary Refill Less than 3 Seconds Skin: No rashes, No breakdown Musculoskeletal: No Tenderness to Palpation of Joints or Extremities Neurological: Cranial nerves II-XII grossly intact, DTR 2+/4. No acute focal neurological deficit. Psych/Mental Status: Normal Affect, Appropriate. Weight / BMI Weight Weight: 212 lb 4.882 oz Body Mass Index (BMI) 31.3 ABG / Lab / Microbiology Data 06/18/23 06:00 06/18/23 06:00 Laboratory: Laboratory Results - last 24 hr 06/16/23 16:35: Crossmatch See Detail 06/18/23 06:00: WBC 5.6, RBC 2.05 L, Hgb 6.9 L, Hct 22.1 L, MCV 107.8 H, MCH 33.7 H, MCHC 31.2 L D, RDW Std Deviation 75.6 H, RDW Coeff of Lencho 19.9 H, Plt Count 62 L, MPV 10.9, Immature Gran % (Auto) 0.400, Neut % (Auto) 76.6 H, Lymph % (Auto) 11.5 L, [place] % (Auto) 9.7, Eos % (Auto) 1.6, Baso % (Auto) 0.2, Absolute Neuts (auto) 4.3, Absolute Lymphs (auto) 0.64 L, Nucleated RBC % 0.9, Differential Comment SCANNED, Platelet Estimate MOD DEC, Anisocytosis 2+, Microcytosis 1+, Macrocytosis 1+, Sodium 139, Potassium 4.1, Chloride 102, Carbon Dioxide 29.0, Anion Gap 8, BUN 48 H, Creatinine 5.95 H, Estim Creat Clear Calc 10.56, Est GFR (MDRD) Af Amer 12 L, Est GFR (MDRD) Non-Af 10 L, BUN/Creatinine Ratio 8.1 L, Glucose 97, Calcium 8.0 L D/C Instructions Discharge Diet: No restrictions Weight Bearing Status: Weight bearing as tolerated Call your doctor if you observe: Fever of 101 or Higher, Coldness, Increased Pain, Numbness or Tingling, Change in Color, Inability to urinate, Inability to have a bowel movement, Shortness of breath, Dizziness, Fainting spells, Swelling in the ankles, Chest pain, Prolonged hiccupping, Increased palpitations (irregular heartbeat) and Calf discomfort When: IN 2 WEEKS Meaningful Use Info Meaningful Use Diagnoses (Choose all that apply): None applicable Discharge Plan Admission Admit Date/Time: 06/16/23 18:20 Primary Reason for Your Visit: GI bleed with acute blood loss anemia Attending Provider: Anselmo Renae Primary Care Provider: Martin Nunez Consulting Providers: Lisa James; Sonia He Discharge Orders/Prescriptions Prescriptions: New ferrous sulfate 325 mg (65 mg iron) tablet,delayed release (DR/EC) 325 mg PO DAILY Qty: 30 2RF ascorbate calcium (vitamin C) 500 mg tablet 1 g PO BID Qty: 60 2RF clopidogrel 75 mg Tablet 75 mg PO DAILY Qty: 0 0RF Continued carvedilol 6.25 MG tablet 3.125 mg PO BID vitamin B complex 1 EACH tablet 1 tab PO DAILY Velphoro 500 mg tablet,chewable 500 mg PO .with meals sucralfate 1 gram Tablet 1 g PO 1HR_ACHS Qty: 120 0RF budesonide 3 mg capsule,delayed,extend.release 9 mg PO DAILY Bibiana-Leoncio 0.8 mg tablet 1 tab PO DAILY Patient Comments: TAKE 1 TABLET BY MOUTH EVERY DAY WITH FOOD pantoprazole 40 mg Tablet,Delayed Release (Dr/Ec) 40 mg PO BID Qty: 60 3RF Rx Instructions: Take twice daily for 8 weeks then will decrease to daily amiodarone 200 mg tablet 200 mg PO DAILY Qty: 30 11RF Rx Instructions: Twice daily for 7 days then decrease to 1 tablet daily Held Eliquis 2.5 mg tablet 2.5 mg PO BID Hold Instructions: Hold for 5 days. Referrals / Follow Up: Martin Nunez DO [Primary Care Provider] - Ed Miramontes MD [Med Staff - Active Staff] - Within 1 Month Wolfgang Garay DO [Med Staff - Active Staff] - Within 1 Month Disposition Disposition (needs filled in before D/C Order can be placed): Home Health Service Charges/Coding Visit Charges Inpatient E&M: 79334 Disch Hosp >30min
--- NOTE | 2023-06-18 16:53 | NURSING ---
Pt refusing heparin flush prior to removal of port, pt only wanting saline flush. Educated on risks and pt understands and states he is allergic.
== END 2023-06-18 18:02 | disposition home health service (06) | DRG 377 ==
LOC: ED 18:33 → PCU 18:40
PROVIDERS: Anesthesiology; Internal Medicine Gastroenterology; Admitting Provider Family Medicine; Emergency Provider Emergency Medicine; PCP Student in an Organized Health Care Education/Training Program; Visit Provider Internal Medicine
PROC: 0DJD8ZZ Inspection of Lower Intestinal Tract, Via Natural or Artificial Opening Endoscopic (ICD-10-PCS; CPT 45378; principal; 2023-06-17 11:55)
DX: K57.31 Diverticulosis of large intestine without perforation or abscess with bleeding (principal); N18.6 End stage renal disease; I85.00 Esophageal varices without bleeding; D62 Acute posthemorrhagic anemia; I13.2 Hypertensive heart and chronic kidney disease with heart failure and with stage 5 chronic kidney disease, or end stage renal disease; I50.32 Chronic diastolic (congestive) heart failure; D69.6 Thrombocytopenia, unspecified; D63.1 Anemia in chronic kidney disease; I73.9 Peripheral vascular disease, unspecified; I48.0 Paroxysmal atrial fibrillation; Z99.2 Dependence on renal dialysis; Z89.422 Acquired absence of other left toe(s); E78.5 Hyperlipidemia, unspecified; K31.7 Polyp of stomach and duodenum; Z90.6 Acquired absence of other parts of urinary tract; Z79.01 Long term (current) use of anticoagulants; Z79.02 Long term (current) use of antithrombotics/antiplatelets; Z79.899 Other long term (current) drug therapy; Z85.51 Personal history of malignant neoplasm of bladder; Z85.72 Personal history of non-Hodgkin lymphomas; Z86.711 Personal history of pulmonary embolism; Z86.718 Personal history of other venous thrombosis and embolism; Z87.891 Personal history of nicotine dependence
CPT/HCPCS: 36415; 36591; 80048; 80053; 83735; 84100; 85014; 85018; 85025; 85610; 85730; 86850; 86900; 86901; 86920; 88305; 88313; 90937; 93005; 94668; 97802; 99285; J7030; P9016; A4216; A4648; G0257; J2405; J3490

== ENCOUNTER 2023-06-28 17:59 | Emergency (ER) | payer MEDICARE, BC, SELFPAY ==
[2023-06-28 18:00] VITALS: BP 121/34; PULSE 70; RESP 16; TEMP 36.4; O2SAT 99; BMI 31.4
--- OUTSIDE RECORDS SUMMARY | 2023-06-28 20:48 | XMS RPT_ITS | CCD ---
Author Name Unknown Address [address] [place] [address] Organization [facility] Care Team Providers Care 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 Name Role Phone CYNDY KAUFMAN Unavailable Unavailable SANDRA CARDENAS CYNDY Unavailable Unavailable SANDRA CARDENAS CYNDY Unavailable Unavailable SANDRA CARDENAS CYNDY Unavailable Unavailable Martin Nunez DO Primary Care Provider Neri Wang DO Sonia Unavailable Martin Nunez DO Primary Care Provider Neri Wang DO Sonia Unavailable Martin Nunez DO Primary Care Provider Neri Wang DO, Sonia Unavailable Neri Felipe DO Sonia Unavailable EVANGELINA VAZQUEZ Referring Unavailable LEXX MARTIN Tamir Primary Care Unavailable Enrique Freitas RN Unavailable Unavailabl e LEXX MARTIN Tamir Primary Care Unavailable EVANGELINA VAZQUEZ Attending Unavailable EVANGELINA VAZQUEZ Admitting Unavailable JESS HENRY L Consulting Unavailable Enrique Freitas RN Unavailable Unavailabl e DAVID HILL Referring Unavailable LEXX MARTIN Tamir Primary Care Unavailable LEXX MARTIN Tamir Primary Care Unavailable ABHINAV HEWITT Referring Unavailable MARTIN NUNEZ Primary Care Unavailable MARTIN NUNEZ Attending Unavailable MARTIN NUNEZ Primary Care Unavailable MARTIN NUNEZ Primary Care Unavailable DAVID HILL Referring Unavailable EVANGELINA VAZQUEZ Referring Unavailable NUNEZ, MARTIN L Primary Care Unavailable DAVID HILL Attending Unavailable DAVID HILL Referring Unavailable LEXX MARTIN Tamir Primary Care Unavailable LEXX, MARTIN L Primary Care Unavailable NUNEZ, MARTIN L Attending Unavailable NUNEZ, MARTIN L Primary Care Unavailable NUNEZ, MARTIN L Referring Unavailable TESTRAKE, DAVID Attending Unavailable NUNEZ, MARTIN L Primary Care Unavailable TESTRAKE, DAVID Attending Unavailable TESTRAKE, DAVID Referring Unavailable VAZQUEZ, EVANGELINA Referring Unavailable VAZQUEZ, EVANGELINA Attending Unavailable NUNEZ, MARTIN L Primary Care Unavailable VAZQUEZ, EVANGELINA Referring Unavailable NUNEZ, MARTIN L Primary Care Unavailable NUNEZ, MARTIN L Primary Care Unavailable TESTRAKE, DAVID Attending Unavailable TESTRAKE, DAVID Referring Unavailable VAZQUEZ, EVANGELINA Attending Unavailable NUNEZ, MARTIN L Primary Care Unavailable NUNEZ, MARTIN L Primary Care Unavailable TESTRAKE, DAVID Referring Unavailable NUNEZ, MARTIN L Primary Care Unavailable TESTRAKE, DAVID Attending Unavailable TESTRAKE, DAVID Referring Unavailable NUNEZ, MARTIN L Primary Care Unavailable TESTRAKE, DAVID Referring Unavailable NUNEZ, MARTIN L Primary Care Unavailable TESTRAKE, DAVID Referring Unavailable ABHINAV HEWITT Admitting Unavailable NUNEZ, MARTIN L Primary Care Unavailable TESTRAKE, DAVID Referring Unavailable DAILY MIXON Attending Unavailable NUNEZ, MARTIN L Primary Care Unavailable TESTRAKE, DAVID Attending Unavailable NUNEZ, MARTIN L Primary Care Unavailable TESTRAKE, DAVID Attending Unavailable CAYLA CORTES Attending Unavailable NUNEZ, MARTIN L Primary Care Unavailable Allergies Allergy Classification Reported Allergen(s) Allergy Type Date of Onset Reaction(s) Facility (20 sources) aspirin; Translations: [ASPIRIN] Drug Allergy 9 Vomiting [facility] Repository (20 sources) enoxaparin; Translations: [ENOXAPARIN] Drug Allergy 9 [facility] Repository (20 sources) HEPARIN ANALOGUES; Translations: [HEPARIN ANALOGUES] Propensity to adverse reactions to drug (disorder) 9 Other: See Comments [facility] Repository (20 sources) heparin; Translations: [HEPARIN] Drug Allergy 9 Other: See Comments [facility] (20 sources) Iodinated Contrast Media; Translations: [IODINATED CONTRAST MEDIA] Drug Allergy 0 Other: See Comments [facility] Medications Current Medications Medication Drug Class(es) Dates Sig (Normalized) Sig (Original) amoxicillin 500 mg oral tablet (1 source) Penicillin-class Antibacterial Start: 11-14-2021 End: 11-24-2021 take 1 tablet by mouth twice daily Amoxicillin 500 mg tablet Indications: Acute non-recurrent maxillary sinusitis Take 1 tablet by mouth twice daily for 10 days. 20 tablet 0 11/14/2021 11/24/2021 Active Completed/Discontinued Medications Medication Drug Class(es) Dates Sig (Normalized) Sig (Original) amiodarone hydrochloride 200 mg oral tablet (14 sources) Antiarrhythmic Start: 04-04-2023 take 1 tablet by mouth once daily amiodarone (PACERONE) 200 mg tablet Take 1 tablet by mouth once daily. Prescribed by [facility] 0 04/04/2023 Active Problems Active Problems Problem Classification Problem Date Documented Date Episodic/Chronic Cardiac dysrhythmias (20 sources) Persistent atrial fibrillation; Translations: [Other persistent atrial fibrillation] Onset: 2 Chronic Chronic kidney disease (20 sources) Chronic kidney disease stage 5; Translations: [Chronic kidney disease, stage 5] Onset: 8 Chronic Chronic ulcer of skin (9 sources) Non-pressure chronic ulcer of other part of left foot with fat layer exposed; Translations: [Ulcer of other part of foot] Onset: 3 04-22-2023 Chronic Coagulation and hemorrhagic disorders (5 sources) Heparin-induced thrombocytopenia; Translations: [HIT (heparin-induced thrombocytopenia)] Onset: 3 05-25-2023 Chronic Complications of surgical procedures or medical care (1 source) Disruption of wound, unspecified, initial encounter; Translations: [Wound dehiscence] Onset: 4 Episodic Conditions associated with dizziness or vertigo (1 source) Dizziness; Translations: [Dizziness and giddiness] 02-12-2023 Episodic Congestive heart failure; nonhypertensive (20 sources) Acute heart failure co-occurrent with normal ejection fraction; Translations: [Acute diastolic (congestive) heart failure] Onset: 3 Chronic Deficiency and other anemia (1 source) Anemia; Translations: [Anemia, unspecified] 05-06-2023 Episodic Disorders of lipid metabolism (20 sources) Dyslipidemia; Translations: [Hyperlipidemia, unspecified] Onset: 7 02-25-2017 Chronic Esophageal disorders (20 sources) Gastroesophageal reflux disease without esophagitis; Translations: [Gastro-esophageal reflux disease without esophagitis] Onset: 8 10-25-2017 Chronic Essential hypertension (20 sources) Essential hypertension; Translations: [Essential (primary) hypertension] Onset: 8 03-29-2018 Chronic Gastroduodenal ulcer (except hemorrhage) (5 sources) Ulcer of duodenum; Translations: [Duodenal ulcer, unspecified as acute or chronic, without hemorrhage or perforation] Onset: 3 05-25-2023 Chronic Gastrointestinal hemorrhage (9 sources) Gastrointestinal hemorrhage; Translations: [Chronic or unspecified gastric ulcer with hemorrhage] Onset: 3 05-23-2023 Chronic Infective arthritis and osteomyelitis (except that caused by tuberculosis or sexually transmitted disease) (1 source) Other acute osteomyelitis, left ankle and foot; Translations: [Acute osteomyelitis of left foot (HCC)] Onset: 3 Chronic Malaise and fatigue (20 sources) Fatigue; Translations: [Other fatigue] Onset: 3 04-14-2023 Episodic Multiple myeloma (1 source) Multiple myeloma not having achieved remission; Translations: [Multiple myeloma not having achieved remission] Onset: 7 Chronic Non-Hodgkin's lymphoma (20 sources) Diffuse large B-cell lymphoma, unspecified site; Translations: [Plasmablastic lymphoma] Onset: 8 12-13-2017 Chronic Open wounds of extremities (20 sources) Open wound of left great toe; Translations: [Unspecified open wound of left great toe without damage to nail, initial encounter] Onset: 3 04-14-2023 Episodic Osteoarthritis (20 sources) Osteoarthritis of right knee joint; Translations: [Unilateral primary osteoarthritis, right knee] Onset: 1 10-07-2020 Chronic Other circulatory disease (2 sources) Other specified symptoms and signs involving the circulatory and respiratory systems; Translations: [Bilateral carotid bruits] Onset: 3 Episodic Other diseases of kidney and ureters (20 sources) Hyperparathyroidism due to renal insufficiency; Translations: [Secondary hyperparathyroidism of renal origin] Onset: 3 Chronic Other gastrointestinal disorders (1 source) Diarrhea; Translations: [Diarrhea, unspecified] 08-26-2023 Episodic Other lower respiratory disease (3 sources) Dyspnea; Translations: [Shortness of breath] Onset: 3 05-28-2023 Episodic Other nervous system disorders (20 sources) Peripheral neuropathy due to and following chemotherapy; Translations: [Drug-induced polyneuropathy] Onset: 8 12-13-2017 Chronic Other nervous system disorders (20 sources) Polyneuropathy due to drug; Translations: [Drug-induced polyneuropathy] Onset: 3 Chronic Other nutritional; endocrine; and metabolic disorders (20 sources) Obese class II; Translations: [Obesity, unspecified] Onset: 8 10-25-2017 Chronic Other nutritional; endocrine; and metabolic disorders (11 sources) Obese class I; Translations: [Obesity, unspecified] Onset: 3 05-13-2023 Chronic Other skin disorders (1 source) Abnormal foot color; Translations: [Disorder of pigmentation, unspecified] 02-12-2023 Episodic Other upper respiratory infections (1 source) Acute maxillary sinusitis; Translations: [Acute maxillary sinusitis, unspecified] Episodic Peripheral and visceral atherosclerosis (20 sources) Peripheral vascular disease, unspecified; Translations: [Peripheral vascular disease, unspecified] Onset: 3 04-22-2023 Chronic Regional enteritis and ulcerative colitis (16 sources) Ulcerative pancolitis; Translations: [Ulcerative (chronic) pancolitis without complications] Onset: 3 04-14-2023 Chronic Residual codes; unclassified (2 sources) Postoperative state; Translations: [Other specified postprocedural states] 06-03-2023 Episodic Residual codes; unclassified (1 source) Other specified postprocedural states; Translations: [Post-operative state] Onset: 3 Episodic Respiratory failure; insufficiency; arrest (adult) (16 sources) Acute respiratory failure; Translations: [Acute respiratory failure with hypoxia] Onset: 3 Episodic Unclassified (1 source) Other persistent atrial fibrillation; Translations: [Persistent atrial fibrillation (HCC)] Onset: 2 Past or Other Problems Problem Classification Problem Date Documented Da te Episodic/Chronic Bacterial infection; unspecified site (20 sources) Bacteremia; Translations: [Bacteremia] Onset: 08-24-2017 05-17-2022 Episodic Cancer of bladder (20 sources) H/O: malignant neoplasm; Translations: [Personal history of malignant neoplasm of bladder] Onset: 12-10-2015 Episodic Complication of device; implant or graft (20 sources) Malfunction of peritoneal dialysis catheter; Translations: [Breakdown (mechanical) of intraperitoneal dialysis catheter, subsequent encounter] Onset: 04-27-2021 Episodic Diabetes mellitus without complication (20 sources) Hyperglycemia; Translations: [Hyperglycemia, unspecified] Onset: 12-11-2017 12-13-2017 Episodic Fluid and electrolyte disorders (4 sources) Hypervolemia; Translations: [Fluid overload, unspecified] Onset: 12-13-2017 05-26-2023 Episodic Other aftercare (20 sources) Long-term current use of anticoagulant; Translations: [[facility] (current) use of anticoagulants] Onset: 02-25-2017 12-13-2017 Episodic Other aftercare (8 sources) Drug therapy finding; Translations: [[facility] (current) use of anticoagulants] Onset: 02-25-2017 05-23-2023 Episodic Other and unspecified benign neoplasm (20 sources) Polyp of sigmoid colon; Translations: [Polyp of colon] Onset: 07-15-2017 07-15-2017 Episodic Other hematologic conditions (20 sources) History of immune thrombocytopenia; Translations: [Personal history of diseases of the blood and blood-forming organs and certain disorders involving the immune mechanism] Onset: 08-08-2017 08-27-2019 Episodic Other nervous system disorders (20 sources) Paresthesia; Translations: [Paresthesia of skin] Onset: 12-28-2017 12-28-2017 Episodic Phlebitis; thrombophlebitis and thromboembolism (20 sources) H/O: Deep vein thrombosis; Translations: [Personal history of other venous thrombosis and embolism] Onset: 09-21-2017 10-12-2017 Episodic Pulmonary heart disease (20 sources) H/O: pulmonary embolus; Translations: [Personal history of pulmonary embolism] Onset: 02-25-2017 02-25-2017 Episodic Results Test Name Value Interpretation Reference Range Facil ity Vital Signs Date Time Vital Sign Value Performing Clinician Mathieu chau 05-13-2023 14:46-0500 Body height 175.3 cm Evangelina Vazquez MD Work Phone: [facility] 05-13-2023 14:46-0500 Body weight 97.98 kg Evangelina Vazquez MD Work Phone: [facility] 05-13-2023 14:46-0500 Diastolic blood pressure 60 mm[Hg] Evangelina Vazquez MD Work Phone: [facility] 05-13-2023 14:46-0500 Heart rate 79 /min Evangelina Vazquez MD Work Phone: [facility] 05-13-2023 14:46-0500 Systolic blood pressure 110 mm[Hg] Evangelina Vazquez MD Work Phone: [facility] 05-06-2023 12:56-0500 Body weight 98.2 kg Cayla Mary ELECTRIC LOCOMOTIVE FIRER/FIREMAN.DONOR TECHNICIAN Work Phone: [facility] 05-06-2023 12:56-0500 Diastolic blood pressure 60 mm[Hg] Cayla Mary ELECTRIC LOCOMOTIVE FIRER/FIREMAN.DONOR TECHNICIAN Work Phone: [facility] 05-06-2023 12:56-0500 Heart rate 71 /min Cayla Mary ELECTRIC LOCOMOTIVE FIRER/FIREMAN.DONOR TECHNICIAN Work Phone: [facility] 05-06-2023 12:56-0500 Respiratory rate 20 /min Cayla Mary ELECTRIC LOCOMOTIVE FIRER/FIREMAN.DONOR TECHNICIAN Work Phone: [facility] 05-06-2023 12:56-0500 SaO2% (BldA) [Mass fraction] 94 % Cayla Mary ELECTRIC LOCOMOTIVE FIRER/FIREMAN.DONOR TECHNICIAN Work Phone: [facility] 05-06-2023 12:56-0500 Systolic blood pressure 108 mm[Hg] Cayla Mary ELECTRIC LOCOMOTIVE FIRER/FIREMAN.DONOR TECHNICIAN Work Phone: [facility] 02-12-2023 11:02-0400 Body temperature 97.39 [degF] Kylah Plaza ELECTRIC LOCOMOTIVE FIRER/FIREMAN.DONOR TECHNICIAN Work Phone: [facility] 02-12-2023 11:02-0400 Body weight 100.61 kg Kylah Graves-Lino ELECTRIC LOCOMOTIVE FIRER/FIREMAN.DONOR TECHNICIAN Work Phone: [facility] 02-12-2023 11:02-0400 Diastolic blood pressure 52 mm[Hg] Kylah Praisler-Wood ELECTRIC LOCOMOTIVE FIRER/FIREMAN.DONOR TECHNICIAN Work Phone: [facility] 02-12-2023 11:02-0400 Heart rate 98 /min Kylah Praisler-Wood ELECTRIC LOCOMOTIVE FIRER/FIREMAN.DONOR TECHNICIAN Work Phone: [facility] 02-12-2023 11:02-0400 Respiratory rate 21 /min Kylah Praisler-Wood ELECTRIC LOCOMOTIVE FIRER/FIREMAN.DONOR TECHNICIAN Work Phone: [facility] 02-12-2023 11:02-0400 SaO2% (BldA) [Mass fraction] 92 % Kylah Praisler-Wood ELECTRIC LOCOMOTIVE FIRER/FIREMAN.DONOR TECHNICIAN Work Phone: [facility] 02-12-2023 11:02-0400 Systolic blood pressure 102 mm[Hg] Kylah Praisler-Wood ELECTRIC LOCOMOTIVE FIRER/FIREMAN.DONOR TECHNICIAN Work Phone: [facility] 12-06-2022 14:33-0400 Body temperature 96.21 [degF] Martin Nunez DO Work Phone: [facility] 12-06-2022 14:33-0400 Body weight 101.61 kg Martin Nunez DO Work Phone: [facility] 12-06-2022 14:33-0400 Diastolic blood pressure 60 mm[Hg] Martin Nunez DO Work Phone: [facility] 12-06-2022 14:33-0400 Heart rate 64 /min Martin Nunez DO Work Phone: [facility] 12-06-2022 14:33-0400 Respiratory rate 20 /min Martin Nunez DO Work Phone: [facility] 12-06-2022 14:33-0400 Systolic blood pressure 126 mm[Hg] Martin Nunez DO Work Phone: [facility] 11-14-2021 08:56-0400 Body weight 107.96 kg Martin Nunez DO Work Phone: [facility] 11-14-2021 08:56-0400 Diastolic blood pressure 74 mm[Hg] Martin Nunez DO Work Phone: [facility] 11-14-2021 08:56-0400 Heart rate 77 /min Martin Nunez DO Work Phone: [facility] 11-14-2021 08:56-0400 SaO2% (BldA) [Mass fraction] 96 % Martin Nunez DO Work Phone: [facility] 11-14-2021 08:56-0400 Systolic blood pressure 138 mm[Hg] Martin Nunez DO Work Phone: [facility] 10-12-2021 09:26-0400 Body height 175.3 cm CATHIE Sellers MD Work Phone: [facility] 10-12-2021 09:26-0400 Body weight 105.42 kg CATHIE Sellers MD Work Phone: [facility] 10-12-2021 09:26-0400 Diastolic blood pressure 66 mm[Hg] CATHIE Sellers MD Work Phone: [facility] 10-12-2021 09:26-0400 Heart rate 73 /min CATHIE Sellers MD Work Phone: [facility] 10-12-2021 09:26-0400 SaO2% (BldA) [Mass fraction] 93 % CATHIE Sellers MD Work Phone: [facility] 10-12-2021 09:26-0400 Systolic blood pressure 142 mm[Hg] CATHIE Sellers MD Work Phone: [facility] Encounters Encounter Date Encounter Type Care Provider Facility Start: 06-27-2023 End: 06-27-2023 ambulatory MARTIN L NUNEZ Facility:[facility] Start: 06-22-2023 End: 06-22-2023 ambulatory EVANGELINA VAZQUEZ Facility:[facility] Start: 06-09-2023 End: 06-09-2023 ambulatory MARTIN L NUNEZ Facility:[facility] Start: 06-08-2023 End: 06-08-2023 ambulatory EVANGELINA VAZQUEZ Facility:[facility] Start: 06-03-2023 End: 06-03-2023 ambulatory DAVID HILL Facility:[facility] Start: 06-03-2023 End: 06-03-2023 Subsequent hospital visit by physician [facility] Valentino West Work Phone: Radiology Procedures Date Procedure Procedure Detail Performing Clinician Start: 05-27-2023 Antibody screen DAVID PISANOVASILIY Plan of Treatment Date Care Activity Detail Author Start: 05-27-2026 Diabetes Screening Diabetes Screening [facility] Start: 05-25-2026 Diabetes Screening Diabetes Screening [facility] Start: 05-20-2026 Diabetes Screening Diabetes Screening [facility] Start: 05-13-2026 Diabetes Screening Diabetes Screening [facility] Start: 05-31-2024 Complete blood count Hemoglobin/Hematocrit [facility] Start: 05-30-2024 Hemoglobin/Hematocrit Hemoglobin/Hematocrit [facility] Start: 05-27-2024 Creatinine measurement Serum Creatinine [facility] Start: 05-27-2024 Serum Creatinine Serum Creatinine [facility] Start: 05-26-2024 Hemoglobin/Hematocrit Hemoglobin/Hematocrit [facility] Start: 05-26-2024 Serum Creatinine Serum Creatinine [facility] Start: 05-25-2024 Hemoglobin/Hematocrit Hemoglobin/Hematocrit [facility] Start: 05-25-2024 Serum Creatinine Serum Creatinine [facility] Start: 05-23-2024 Hemoglobin/Hematocrit Hemoglobin/Hematocrit [facility] Start: 05-23-2024 Serum Creatinine Serum Creatinine [facility] Start: 05-13-2024 BP Controlled (<130/80) BP Controlled (<130/80) [facility] Start: 05-13-2024 Hemoglobin/Hematocrit Hemoglobin/Hematocrit [facility] Start: 05-13-2024 Serum Creatinine Serum Creatinine [facility] Start: 05-06-2024 Annual PCP Team Chronic Disease Visit Annual PCP Team Chronic Disease Visit [facility] Start: 05-06-2024 BP Controlled (<130/80) BP Controlled (<130/80) [facility] Start: 04-11-2024 Annual PCP Team Chronic Disease Visit Annual PCP Team Chronic Disease Visit [facility] Start: 04-11-2024 BP Controlled (<130/80) BP Controlled (<130/80) [facility] Start: 02-13-2024 BP CONTROLLED (<130/80) BP CONTROLLED (<130/80) [facility] Start: 01-27-2024 DIABETES SCREEN DIABETES SCREEN [facility] Start: 01-27-2024 Diabetes Screening Diabetes Screening [facility] Start: 12-07-2023 ANNUAL PCP TEAM CHRONIC DISEASE VISIT ANNUAL PCP TEAM CHRONIC DISEASE VISIT [facility] Start: 12-07-2023 BP CONTROLLED (<130/80) BP CONTROLLED (<130/80) [facility] Start: 10-13-2023 LIPID SCREEN LIPID SCREEN [facility] Start: 05-30-2023 End: 08-29-2023 CBC panel - Blood by Automated count CBC Lab Routine Gastrointestinal hemorrhage associated with gastric ulcer Expected: 05/30/2023, Expires: 08/29/2023 [facility] Work Phone: Immunizations Immunization Date Immunization Notes Care Provider Marii cali 03-29-2018 influenza virus vacc ine, unspecified formulation Martin Nunez DO Work Phone: [facility] Payers Date Payer Category Payer Medicare [id number] 2015 Unknown JULIO CONRADJIMMIE FERNANDES DICARE SUPPLEMENT [id number] 2015-Present [phone] [address] [place] [address] Indemnity [id number] 2015 Unknown JULIO KIM DICARE SUPPLEMENT [id number] 2015-Present [phone] [address] [place] [address] Indemnity [id number] 2011 Medicare MEDICARE MEDICAR E A AND B [id number] 2011-Present [phone] [place] [address] Medicare [id number] 2011 Medicare MEDICARE MEDICAR E A AND B [id number] 2011-Present [phone] [place] [address] Medicare [id number] 2011 Medicare [id number] Social History Date Type Detail Facility Start: 05-25-2017 End: 05-17-2022 Tobacco smoking status NHIS Ex-smoker [facility] End: 04-13-2009 History of tobacco use Current smoker [facility] Work Phone: End: 04-13-2009 History of tobacco use Cigarette Smoker [facility] Work Phone: Start: 10-12-2021 End: 06-03-2023 Alcohol intake Current non-drinker of alcohol (finding) [facility] Start: 10-22-2019 End: 04-28-2020 History SDOH Alcohol Frequency 1 [facility] Start: 04-28-2020 History SDOH Alcohol Std Drinks 98 [facility] Start: 10-22-2019 History SDOH Social Connections Phone 4 [facility] Start: 10-22-2019 History SDOH Social Connections Get Together 3 [facility] Start: 10-22-2019 History SDOH Social Connections Membership 2 [facility] Start: 10-22-2019 History SDOH Financial 5 [facility] Start: 1945 Sex Assigned At Not on file C [facility] Start: 10-02-2021 End: 05-17-2022 Exposure to SARS-CoV-2 (event) Not sure [facility] Start: 05-25-2017 End: 12-06-2022 Cigarettes smoked current (pack per day) - Reported 1.5 [facility] Start: 05-25-2017 End: 05-17-2022 Tobacco use and exposure Smokeless tobacco non-user [facility] Start: 10-22-2019 End: 12-06-2022 Social connection and isolation panel [facility] Do you belong to any clubs or organizations such as synagogue groups, unions, fraternal or athletic groups, or school groups? No [facility] Are you now , , , , never or living with a partner? [facility] How often to you hav e a drink containing alcohol? Never [facility] How many standard dr inks containing alcohol do you have on a typical day? Patient refused [facility] Do you feel stress - tense, restless, nervous, or anxious, or unable to sleep at night because your mind is troubled all the time - these days [OSQ] Not at all [facility] (I/We) worried homer er (my/our) food would run out before (I/we) got money to buy more. Never true [facility] Medical Equipment Procedure Code Equipment Code Equipment Origin al Text Equipment Identifier Dates Catheter Jarod Curl Cath 14fr 57cm Dialysis 2 Cuff Curled Radiopaque - [id number] Start: 04-17-2020 Clinical Notes 01-17-2019 to 06-27-2023 David Hill - 06/03/2023 11:00 PM Scarlett Benjamin RN - 06/03/2023 9:32 AM Carleen Lozano RT(Evelyn) - 06/03/2023 10:20 AM ESTPatient InstructionsDavid Hill - 05/25/2023 4:05 PM EST Note Date & Type Note Facility 06-27-2023 Note [facility] 06-09-2023 Note [facility] 06-09-2023 Note [facility] 06-08-2023 Note [facility] 06-04-2023 Note [facility] 06-03-2023 History of Present illness Narrative This 77 year old presents post op left hallux partial amputation Pain level: 0/10 Vomiting, fever, chills, shortness of breath: no Pain Control: n/a Weightbearing status: partial weightbearing 6.5 (07/26/2019) PAST MEDICAL HISTORY Diagnosis Date Acute on chronic renal failure (HCC) 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 Calculus of kidney 1970 Chronic kidney disease (CKD), stage V (HCC) Chronic kidney disease, stage 5 (HCC) bladder cancer chemo destroyed kidney, 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 CKD (chronic kidney disease) stage 4, GFR 15-29 ml/min ([facility]) 10/31/2019 after chemo for bladder CA Colonic mass DVT (deep venous thrombosis) (HCC) 04/21/2009 after cystectomy 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 Last dose will be in the evening of 06/06/23. pantoprazole DR (PROTONIX) 40 mg tablet Take 1 tablet by mouth two times a day. Take on empty stomach, 1/2 hr before meal. (Patient taking differently: Take 40 mg by mouth once daily. Take on empty stomach, 1/2 hr before meal.) clopidogrel (PLAVIX) 75 mg tablet Take 1 tablet by mouth once daily. carvedilol (COREG) 3.125 mg tablet Take 1 tablet by mouth two times a day. sucralfate (CARAFATE) 1 gram tablet Take one tablet by mouth 4 times a day-1 hour before meals and at bedtime budesonide, enteric coated (ENTOCORT EC) 3 mg 24 hr capsule Take 3 capsules by mouth once daily. amiodarone (PACERONE) 200 mg tablet Take 1 tablet by mouth once daily. Prescribed by [facility] apixaban (ELIQUIS) 2.5 mg tab(s) Take 1 tablet by mouth two times a day. For atrial fibrillation B Complex-Vitamin C-Folic Acid (RENAL-MARY) 0.8 mg tab Take 1 tablet by mouth. vitamin b complex (B COMPLETE) tab Take 1 tablet by mouth once daily. polyethylene glycol 3350 (MIRALAX ORAL) Take 1 Tablespoonful by mouth as needed. sucroferric oxyhydroxide (VELPHORO) 500 mg chew 1 tablet with each meal (Patient not taking: Reported on 05/26/2023) No current facility-administered medications for this visit. ALLERGIES Allergen Reactions Heparin Analogues Other: See Comments HIT Aspirin Vomiting NAUSEA Heparin Other: See Comments Iodinated Contrast * Other: See Comments Lovenox [Enoxaparin] HIT Objective: Incision site is well coapted with no evidence of dehiscence. Mild black eschar present along central incision but no signs of infection and no dehiscence noted. No erythema is present. Mild inflammation is present. No drainage. No lymphadenopathy. No lymphangitis. No surrounding cellulitis. Dorsalis pedis is audible to left foot. Patient has no pain to palpation of left calf. Negative Bennett's test. Assessment: (I73.9) PAD (peripheral artery disease) ([facility]) (primary encounter diagnosis) (Z98.890) Post-operative state Osteomyelitis of toe Plan: Patient was examined today. He is 7 days s/p partial hallux amputation. The toe appears stable, free of infection. Small darkening of central incision but essentially, the toe is stable. I am going to leave the eschar alone as any debridement is likely to result in dehiscence. I will apply betadine and adaptic to the incision and will have patient change this every 2-3 days. Patient is scheduled see Dr. Vazquez next week so I will see him in 2 weeks. Informed patient that we will montior the foot closely. If he has any issues or concerns, he is to notify me and I will bring him into the office. I did inform him that once the stitches are removed, the central eschar likely will be debrided. It is possible upon debridement that the wound will be healed beneath or he may have superficial wound requiring local wound care. Worst case scenario is the wound does not heal requiring further amputation. He is aware of this risk. Again, due to the early nature in the healing process, I feel leaving the eschar alone is best. Patient provided my number and is instructed to call should he have any issues. David Hill DPM Patient presents with: Left Great Toe - Post Op, Amputation Patient is 1 week post L hallux amputation. documented in this encounter [facility] 06-03-2023 Note [facility] 06-03-2023 Note HNO ID: [id number] Author: Scarlett Dobbins RN Service: ? Author Type: Registered Nurse Type: Progress Notes Filed: 06/03/2023 11:07 PM Note Text: Patient presents with: Left Great Toe - Post Op, Amputation Patient is 1 week post L hallux amputation. [facility] 06-03-2023 History of Present illness Narrative Radiology Service Progress Note PATIENT NAME: Espinoza Mariano DATE OF SERVICE: June 03, 2023 TIME: 10:33 AM PATIENT IDENTITY VERIFICATION COMPLETED USING TWO (2) IDENTIFIERS: Name and Date of confirmed by patient verbally. FALL SCREENING: Has the patient had 2 falls in the last year or 1 fall with injury or currently using an Ambulatory Assistive Device (Walker, Cane, Wheelchair, Crutches, etc.)? Yes, Patient High Risk for Falls What interventions were put in place to prevent falls during this visit? Offered Assistance with Transfers/Clothing and Instructed Patient to Remain Seated (Not on Exam Table) Until Exam PATIENT GENDER DATA: Male PATIENT RELEVANT IMPLANT DATA REVIEWED: Not Applicable RADIOLOGY DEPARTMENT: General X-ray: Exam(s) Completed: Lower Extremity X-Ray(s): Foot, Left PERIPHERAL IV DATA: Not applicable SIGNED BY: RT Dayna(R) June 03, 2023 10:33 AM documented in this encounter [facility] 06-03-2023 Instructions David Hill - 06/03/2023 9:53 AM EST Continue with post-op shoe Change dressing every 2 days. Apply betadine and adaptic to incision followed by lightly applied guaze and wrap. Limit activity to bare minimum to limit swelling Follow-up as scheduled. documented in this encounter [facility] 05-31-2023 Note [facility] 05-30-2023 Note [facility] 05-29-2023 Note [facility] 05-28-2023 Note [facility] 05-27-2023 Note [facility] 05-27-2023 Note [facility] 05-26-2023 Note [facility] 05-26-2023 Note [facility] 05-26-2023 Note [facility] 05-26-2023 History of Present illness Narrative TRANSITION CARE MANAGEMENT (TCM) FOLLOW-UP NOTE Provider Action/FYI Summary: Readmission at [facility] on 05/25/23 for Toe ulcer, left, with fat layer exposed Audio Video Tech plan for next outreach: Chart reviewed. Name removed from Care Team d/t readmission Discharge report will be monitored and future TCM Outreach/Follow Up will be determined based on risk score and disposition at discharge. No further follow up needed at this time. Audio Video Tech plan for next outreach: No further follow up needed at this time UZMA Education Ordered -: No Signature Enrique Freitas RN May 26, 2023 documented in this encounter [facility] 05-26-2023 Note [facility] 05-25-2023 Note [facility] 05-25-2023 History of Present illness Narrative FOLLOW UP PODIATRIC OFFICE VISIT Chief Complaint: This 77 year old who presents for follow up:left hallux ulceration. Patient is a pleasant 77 year old male with history of esrd and pad. Has chronic ulceration to the left hallux. He recently underwent angionplasty of the left lower extremity with stenting of the SFA. He is here for evaluation of his left hallux ulceration. PAIN EVALUATION No data found in the last 1 encounters. Hemoglobin A1C Date Value Ref Range Status 07/26/2019 6.5 (H) 4.3 - 5.6 % Final Comment: Citizen [place] Diabetes Association guidelines indicate that patients with HgbA1c in the range 5.7-6.4% are at increased risk for development of diabetes, and intervention by lifestyle modification may be beneficial. HgbA1c greater or equal to 6.5% is considered diagnostic of diabetes. 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 Take on empty stomach, 1/2 hr before meal. clopidogrel (PLAVIX) 75 mg tablet Take 1 tablet by mouth once daily. amoxicillin-clavulanate potassium (AUGMENTIN) 500-125 mg per tablet Take 1 tablet by mouth every 12 hours for 14 days. carvedilol (COREG) 3.125 mg tablet Take 1 tablet by mouth two times a day. sucralfate (CARAFATE) 1 gram tablet Take one tablet by mouth 4 times a day-1 hour before meals and at bedtime budesonide, enteric coated (ENTOCORT EC) 3 mg 24 hr capsule Take 3 capsules by mouth once daily. amiodarone (PACERONE) 200 mg tablet Take 1 tablet by mouth once daily. Prescribed by [facility] apixaban (ELIQUIS) 2.5 mg tab(s) Take 1 tablet by mouth two times a day. For atrial fibrillation B Complex-Vitamin C-Folic Acid (RENAL-MARY) 0.8 mg tab Take 1 tablet by mouth. vitamin b complex (B COMPLETE) tab Take 1 tablet by mouth once daily. sucroferric oxyhydroxide (VELPHORO) 500 mg chew 1 tablet with each meal polyethylene glycol 3350 (MIRALAX ORAL) Take 1 Tablespoonful by mouth as needed. No current facility-administered medications for this visit. ALLERGIES Allergen Reactions Heparin Analogues Other: See Comments HIT Aspirin Vomiting NAUSEA Heparin Other: See Comments Iodinated Contrast * Other: See Comments Lovenox [Enoxaparin] HIT PAST SURGICAL HISTORY Procedure Laterality Date ARTERIOVENOUS FISTULA Right 04/29/2020 Creation of right brachial basilic AV fistula first-stage. AV FISTULA PLACEMENT HX Right 01/2021 Arteriovenous fistula transposition of basilic vein fistula. CATARACT EXTRACTION HX COLONOSCOPY W/BIOPSY 04/25/2017 Dr. Hammer EGD 04/25/2017 Dr. Hammer, dx guaic positive/ anemia; neg for mass/ulcer EXAM UNDER ANESTHESIA 2018 rigid proctoscopy and biopsies as well as a flexible sigmoidoscopy and biopsies. PAST SURGICAL HISTORY OF 2008 TURBT, bladder and kidney stones removed PAST SURGICAL HISTORY OF cleft lip surgery PAST SURGICAL HISTORY OF 04/17/2020 Laparoscopic insertion of a peritoneal dialysis catheter. PICC LINE INSERT/CONSULT 08/08/2017 power port REMOVAL OF KIDNEY STONE 2018 percutanous TONSILLECTOMY AND ADENOIDECTOMY HX URETEROILEAL CONDUIT W/INTESTINE ANASTOMOSIS 04/14/2009 Physical Exam: OBJECTIVE: Constitutional: Pt is a well developed 77 year old male who is alert, oriented, cooperative and in no apparent distress. Eyes: Following during examination. No redness or drainage. Respiratory: RR normal and nonlabored. Even breathing. No evidence of distress. Psychology: Patient is engaged during conversation. Normal affect and mood. Does not appear depressed or anxious. NVSI unchanged from previous visit. Dermatological: Ulceration #1 Location: left hallux Measurement: 2.0 cm x 1.5 cm. Base: fibrotic slough with bone exposed. No clinical signs of infection other than exposed bone. Musculoskeletal/Orthopaedic: Patient has no pain to palpation of left hallux Ulceration of left hallux with exposed tuft of left distal phalanx. ASSESSMENT: (L97.522) Ulcer of toe of left foot, with fat layer exposed ([facility]) (primary encounter diagnosis) (I73.9) PAD (peripheral artery disease) ([facility]) (S91.102A) Open wound of left great toe, initial encounter PLAN: I had long discussion with patient regarding the appearance of left hallux ulceration. The left hallux ulceration now has exposed bone. I informed him that this makes healing of the wound very difficult and the risk of developing osteomyelitis high. I discussed options for this ulceration and given the exposed bone in the presence of underlying pad with recent angioplasty with stent, I feel that partial toe amputation is likely his best option. Patient and son agree. Of note, patient has esrd, history of pad and recent GI Bleed. We discussed options for him not limited to doing this amputation as an otupatient vs admission to the hospital with close monitoring. Given all medical co-morbidities, I feel admission to hospital is best option. I personally spoke with Dr. Vazquez who performed his angioplasty. He would recommend obtaining tcpo2 prior to amputation. Communicated case with hospitalist. Wound was debrided of nonviable slough today. Full thickness debridement was performed with tissue nippers. Total debridement was 2.0 cm x 1.5 cm. David Hill DPM documented in this encounter [facility] 05-25-2023 Note [facility] 05-24-2023 Note [facility] 05-24-2023 Miscellaneous Notes Patient scheduled in office at [place] on 05/25/2023. Connie Bueno LPN Called patient to offer appointment today 05/24/2023 to discuss options now blood flow has been restored. Patient states he has dialysis today and is unable to attend appointment. Offered patient appointment tomorrow 05/25/2023 in [place]. Patient states he does not know if he will be able to attend and need to talk to son. Son to call office. Connie Bueno LPN Called patient to schedule follow up appointment to discuss option now blood flow has increased. No response. Left VM. Connie Bueno LPN Patient was scheduled on 05/23/2023 in office. Patient Is currently still admitted. Connie Bueno LPN Can you please get patient in early next week so we can debride the wound and possibly arrange for amputation if needed David Hill DPM documented in this encounter [facility] 05-24-2023 History of Present illness Narrative TCM Home Visit Referral Source of Stratification: [facility] Hospital Admission Status: Discharged Readmission Risk Score: 20 CRISTOFER Score: 15 Patient meets program referral criteria: No Patient does not qualify for High Risk TCM Home Visit program due to: Discharged home, does not meet program criteria Enrique Freitas RN May 24, 2023 3:23 PM TRANSITIONAL CARE MANAGEMENT (TCM) COMMUNITY MONITORING PROGRAM Provider Action/FYI: Chart reviewed. TCM outreach being completed by RC RN. Will attempt outreach on next scheduled date. SUMMARY: Discharge Network Status: In-Network Discharge Pt discharged from [facility] on 05/23/23. Admitted for: Critical limb ischemia of left lower extremity Outreach ended documented in this encounter [facility] 05-24-2023 Miscellaneous Notes PD nurse called patient for follow up from recent hospital discharge, but no answer. Left message on [employer] including [phone] resource phone number. Pj Ellison RN documented in this encounter [facility] 05-23-2023 Note HNO ID: [id number] Author: Aj (Felt Carbonizer)Pj Service: ? Author Type: ? Type: Plan of Care Filed: 05/24/2023 1:16 PM Note Text: PHARMACY BEDSIDE DELIVERY SERVICE Patient Name: Espinoza Mariano The marked outpatient medications were filled and picked up at [facility] Medication List START taking these medications clopidogrel 75 mg tablet Commonly known as: PLAVIX Take 1 tablet by mouth once daily. CHANGE how you take these medications amoxicillin-clavulanate potassium 500-125 mg per tablet Commonly known as: AUGMENTIN Take 1 tablet by mouth every 12 hours for 14 days. What changed: when to take this carvedilol 3.125 mg tablet Commonly known as: COREG Take 1 tablet by mouth two times a day. What changed: Another medication with the same name was removed. Continue taking this medication, and follow the directions you see here. pantoprazole DR 40 mg tablet Commonly known as: PROTONIX Take 1 tablet by mouth two times a day. Take on empty stomach, 1/2 hr before meal. What changed: when to take this CONTINUE taking these medications amiodarone 200 mg tablet Commonly known as: PACERONE apixaban 2.5 mg tab(s) Commonly known as: ELIQUIS Take 1 tablet by mouth two times a day. For atrial fibrillation budesonide, enteric coated 3 mg 24 hr capsule Commonly known as: ENTOCORT EC Take 3 capsules by mouth once daily. MIRALAX ORAL RENAL-MARY 0.8 mg Tab Generic drug: B Complex-Vitamin C-Folic Acid sucralfate 1 gram tablet Commonly known as: CARAFATE Take one tablet by mouth 4 times a day-1 hour before meals and at bedtime VELPHORO 500 mg Chew Generic drug: sucroferric oxyhydroxide 1 tablet with each meal vitamin b complex Tab Commonly known as: B COMPLETE Take 1 tablet by mouth once daily. You might also be taking other medications not listed above. If you have questions about any of your other medications, talk to the person who prescribed them or your Primary Care Provider. STOP taking these medications Gauze Bandage 4 X 4 Bndg Pj Rocha (Felt Carbonizer) PAGER: [phone] May 24, 2023 1:15 PM [facility] 05-22-2023 Note HNO ID: [id number] Author: Jacque Mauro APRN.DONOR TECHNICIAN Service: Cardiovascular Medicine Author Type: Nurse Practitioner Type: Progress Notes Filed: 05/22/2023 1:36 PM Note Text: CARDIOVASCULAR MEDICINE PROGRESS NOTE SERVICE DATE: 05/22/2023 SERVICE TIME: 12:20 PM ADMITTING PHYSICIAN: Evangelina Vazquez MD HOSPITAL COURSE: Admitted for planned revascularization of LLE. S/p IVUS and shockwave atherectomy assisted YARD OPERATOR and stenting of the left distal to proximal SFA for CLTI of the LLE first digit. Hx of critical limb ischemia of the LLE which started several months ago with a non-healing wound. PMH of chronic atrial fib (on Eliquis), diastolic HF, aortic root dilation, HTN, ESRD on HD (//Tue), dyslipidemia, anemia, PE/DVT c/b HIT. Recent GIB requiring 2 units PRBCs s/p EGD with clipping (had 6 mm oozing, cratered duodenal ulcer with visible vessel treated with epi, cautery, and clip placement x 2) on 05/18/23 at [facility]. CHIEF COMPLAINT: unhappy about his dietary restrictions (on renal diet) INTERVAL HISTORY OF PRESENT ILLNESS: -sitting up in bed on exam -reports feeling well, anxious to go home, complaining about the food -Hgb 8.5 this AM, up from 7.7 yesterday -no pitting edema to BLE, pulses present bilaterally Objective Current Facility-Administered Medications Medication Dose Route Frequency pantoprazole 40 mg injection (PROTONIX) 40 mg INTRAVENOUS BID AC (0600/1600) b complex, c, folic acid 5 mg 1 tablet (FOLBEE PLUS) 1 tablet ORAL DAILY amiodarone 200 mg tab(s) (PACERONE) 200 mg ORAL DAILY carvedilol 3.125 mg tab(s) (COREG) 3.125 mg ORAL BID sucralfate 1 g tab(s) (CARAFATE) 1 g ORAL AC and HS budesonide, enteric coated 9 mg cap(s) (ENTOCORT EC) 9 mg ORAL DAILY amoxicillin-clavulanate potassium 500 mg tab(s) (AUGMENTIN) 500 mg ORAL q 12 H clopidogrel 75 mg tab(s) (PLAVIX) 75 mg ORAL DAILY argatroban 250 mg in D5W 250 mL STANDARD DOSING NOMOGRAM 0.1-3 mcg/kg/min INTRAVENOUS CONTINUOUS sevelamer carbonate 1,600 mg tab(s) (RENVELA) 1,600 mg ORAL TID w MEALS PAST MEDICAL HISTORY Diagnosis Date Acute on chronic renal failure 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 Calculus of kidney 1970 Chronic kidney disease (CKD), stage V (HCC) Chronic kidney disease, stage 5 (HCC) bladder cancer chemo destroyed kidney, 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 CKD (chronic kidney disease) stage 4, GFR 15-29 ml/min (HCC) 10/31/2019 after chemo for bladder CA Colonic mass DVT (deep venous thrombosis) (HCC) 04/21/2009 after cystectomy 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 AV FISTULA PLACEMENT HX Right 01/2021 Arteriovenous fistula transposition of basilic vein fistula. CATARACT EXTRACTION HX COLONOSCOPY W/BIOPSY 04/25/2017 Dr. Hammer EGD 04/25/2017 Dr. Hammer, dx guaic positive/ anemia; neg for mass/ulcer EXAM UNDER ANESTHESIA 2018 rigid proctoscopy and biopsies as well as a flexible sigmoidoscopy and biopsies. PAST SURGICAL HISTORY OF 2008 TURBT, bladder and kidney stones removed PAST SURGICAL HISTORY OF cleft lip surgery PAST SURGICAL HISTORY OF 04/17/2020 Laparoscopic insertion of a peritoneal dialysis catheter. PICC LINE INSERT/CONSULT 08/08/2017 power port REMOVAL OF KIDNEY STONE 2018 percutanous TONSILLECTOMY AND ADENOIDECTOMY HX URETEROILEAL CONDUIT W/INTESTINE ANASTOMOSIS 04/14/2009 FAMILY HISTORY Problem Relation Age of Onset None Mother None Father Cancer Father lung Social History Tobacco Use Smoking status: Former Packs/day: 1.50 Years: 40.00 Additional pack years: 0.00 Total pack years: 60.00 Types: Cigarettes Quit date: 04/13/2009 Years since quittin.1 Smokeless tobacco: Never Vaping Use Vaping Use: Never used Substance Use Topics Alcohol use: No Drug use: No I have confirmed and edited as necessary the PFSH obtained by others. PHYSICAL EXAM: Patient Vitals for the past 24 hrs: BP Temp Temp src Pulse Resp SpO2 Height Weight 05/21/23 1402 -- -- -- -- -- -- 175.3 cm (5' 9 ) 98.2 kg (216 lb 8 oz) 05/21/23 1254 115/55 36.8 ?C (98.2 ?F) Oral 72 16 93 % -- -- 05/21/23 1119 118/58 -- -- 76 20 100 % -- -- 05/21/23 1100 117/59 -- -- 76 17 100 % -- -- 05/21/23 1030 127/57 -- -- 77 18 99 % -- -- 05/21/23 1000 114/61 -- -- 86 22 100 % -- -- 05/21/23 0930 129/55 -- -- 75 24 100 % -- -- 05/21/23 0900 125/62 -- -- 69 20 100 % -- -- 05/21/23 0830 128/68 -- -- 69 13 100 % -- -- 05/21/23 0800 129/58 -- -- 70 24 100 % -- -- 05/21/23 0745 138/61 -- -- 78 23 100 % -- -- 05/21/23 0734 124/62 (more content not included)... [facility] 05-21-2023 Note HNO ID: [id number] Author: Jacque Mauro APRN.CNP Service: Cardiovascular Medicine Author Type: Nurse Practitioner Type: Progress Notes Filed: 05/21/2023 4:05 PM Note Text: CARDIOVASCULAR MEDICINE PROGRESS NOTE SERVICE DATE: 05/21/2023 SERVICE TIME: 3:44 PM ADMITTING PHYSICIAN: Evangelina Vazquez MD HOSPITAL COURSE: Admitted for planned revascularization of LLE. S/p IVUS and shockwave atherectomy assisted YARD OPERATOR and stenting of the left distal to proximal SFA for CLTI of the LLE first digit. Hx of critical limb ischemia of the LLE which started several months ago with a non-healing wound. PMH of chronic atrial fib (on Eliquis), diastolic HF, aortic root dilation, HTN, ESRD on HD (//Tue), dyslipidemia, anemia, PE/DVT c/b HIT. Recent GIB requiring 2 units PRBCs s/p EGD with clipping (had 6 mm oozing, cratered duodenal ulcer with visible vessel treated with epi, cautery, and clip placement x 2) on 05/18/23 at [facility]. CHIEF COMPLAINT: dizzy after HD INTERVAL HISTORY OF PRESENT ILLNESS: -sitting up in bed eating lunch on exam -reports feeling mildly dizzy, otherwise has no complaints -Hgb 7.7 this AM -patient is agreeable to blood transfusion as needed -no pitting edema to BLE, pulses present bilaterally Objective Current Facility-Administered Medications Medication Dose Route Frequency pantoprazole 40 mg injection (PROTONIX) 40 mg INTRAVENOUS BID AC (0600/1600) b complex, c, folic acid 5 mg 1 tablet (FOLBEE PLUS) 1 tablet ORAL DAILY amiodarone 200 mg tab(s) (PACERONE) 200 mg ORAL DAILY carvedilol 3.125 mg tab(s) (COREG) 3.125 mg ORAL BID sucralfate 1 g tab(s) (CARAFATE) 1 g ORAL AC and HS budesonide, enteric coated 9 mg cap(s) (ENTOCORT EC) 9 mg ORAL DAILY amoxicillin-clavulanate potassium 500 mg tab(s) (AUGMENTIN) 500 mg ORAL q 12 H clopidogrel 75 mg tab(s) (PLAVIX) 75 mg ORAL DAILY argatroban 250 mg in D5W 250 mL STANDARD DOSING NOMOGRAM 0.1-3 mcg/kg/min INTRAVENOUS CONTINUOUS sevelamer carbonate 1,600 mg tab(s) (RENVELA) 1,600 mg ORAL TID w MEALS PAST MEDICAL HISTORY Diagnosis Date Acute on chronic renal failure 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 Calculus of kidney 1970 Chronic kidney disease (CKD), stage V (HCC) Chronic kidney disease, stage 5 (HCC) bladder cancer chemo destroyed kidney, 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 CKD (chronic kidney disease) stage 4, GFR 15-29 ml/min (HCC) 10/31/2019 after chemo for bladder CA Colonic mass DVT (deep venous thrombosis) (HCC) 04/21/2009 after cystectomy 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 AV FISTULA PLACEMENT HX Right 01/2021 Arteriovenous fistula transposition of basilic vein fistula. CATARACT EXTRACTION HX COLONOSCOPY W/BIOPSY 04/25/2017 Dr. Hammer EGD 04/25/2017 Dr. Hammer, dx guaic positive/ anemia; neg for mass/ulcer EXAM UNDER ANESTHESIA 2018 rigid proctoscopy and biopsies as well as a flexible sigmoidoscopy and biopsies. PAST SURGICAL HISTORY OF 2008 TURBT, bladder and kidney stones removed PAST SURGICAL HISTORY OF cleft lip surgery PAST SURGICAL HISTORY OF 04/17/2020 Laparoscopic insertion of a peritoneal dialysis catheter. PICC LINE INSERT/CONSULT 08/08/2017 power port REMOVAL OF KIDNEY STONE 2018 percutanous TONSILLECTOMY AND ADENOIDECTOMY HX URETEROILEAL CONDUIT W/INTESTINE ANASTOMOSIS 04/14/2009 FAMILY HISTORY Problem Relation Age of Onset None Mother None Father Cancer Father lung Social History Tobacco Use Smoking status: Former Packs/day: 1.50 Years: 40.00 Additional pack years: 0.00 Total pack years: 60.00 Types: Cigarettes Quit date: 04/13/2009 Years since quittin.1 Smokeless tobacco: Never Vaping Use Vaping Use: Never used Substance Use Topics Alcohol use: No Drug use: No I have confirmed and edited as necessary the PFSH obtained by others. PHYSICAL EXAM: Patient Vitals for the past 24 hrs: BP Temp Temp src Pulse Resp SpO2 Height Weight 05/21/23 1402 -- -- -- -- -- -- 175.3 cm (5' 9 ) 98.2 kg (216 lb 8 oz) 05/21/23 1254 115/55 36.8 ?C (98.2 ?F) Oral 72 16 93 % -- -- 05/21/23 1119 118/58 -- -- 76 20 100 % -- -- 05/21/23 1100 117/59 -- -- 76 17 100 % -- -- 05/21/23 1030 127/57 -- -- 77 18 99 % -- -- 05/21/23 1000 114/61 -- -- 86 22 100 % -- -- 05/21/23 0930 129/55 -- -- 75 24 100 % -- -- 05/21/23 0900 125/62 -- -- 69 20 100 % -- -- 05/21/23 0830 128/68 -- -- 69 13 100 % -- -- 05/21/23 0800 129/58 -- -- 70 24 100 % -- -- 05/21/23 0745 138/61 -- -- 78 23 100 % -- -- 05/21/23 0734 124/62 (!) 35 (more content not included)... [facility] 05-21-2023 Note HNO ID: [id number] Author: Evangelina Vazquez MD Service: Interventional Cardiology Author Type: Physician Type: Plan of Care Filed: 05/21/2023 1:37 PM Note Text: Patient seen and examined at bedside last evening. Doppler with biphasic signal which is improved compared to pre procedure. Plan to continue with agatroban gtt and clopidogrel and monitor over the weekend given high risk of bleeding post clipping. IV PPI initiated per GI recs and appreciate their recs this am. If hgb continues to drop then will need prbc transfusion and potential IR embolization of GI bleeding vessel. Case was discussed with family over the phone as well and understood and agreed with the plan. EVANGELINA VAZQUEZ MD INTERVENTIONAL CARDIOLOGY ENDOVASCULAR INTERVENTIONS PAGER [phone] [facility] 05-21-2023 Note HNO ID: [id number] Author: Melissa Ennis, RN Service: Nursing Author Type: Registered Nurse Type: Nursing Progress Note Filed: 05/21/2023 10:09 AM Note Text: 0730 (late entry) patient to dialysis by bed with transport. [facility] 05-21-2023 Note HNO ID: [id number] Author: Joelle Bueno CHT Service: ? Author Type: Mining Captain Type: Progress Notes Filed: 05/21/2023 8:07 AM Note Text: UNIVERSAL PROTOCOL / SAFETY CHECKLIST Procedure to be Performed: Hemodialysis Sign In: A Moment of CARE was completed. Personnel directly involved with the procedure wore the appropriate PPE (Personal Protective Equipment). Patient/Surrogate Stated/Verified: PATIENT VERIFIED(optional for EMERGENT procedures): Patient name, Date of , Relevant allergies, and The intended procedure Time Out Communication: Intended patient and procedure match the source documents. Consent documented and matches the intended procedure. Sign Out: SIGN OUT (optional for EMERGENT procedures): All specimen containers correctly labeled. Joelle Bueno CHT 0734 Treatment initiated without difficulty. Pt arrived to unit via bed and transport. HD treatment to last 3.75 hours with 2 meq/L K. Blood flow rate 400 ml/min, (if tolerated) dialysate flow rate 600 ml/min. UFG 1 L to start, will increase if pt tolerates treatment without becoming hypotensive. Treatment initiated with BFR of 150 per orders. VSS at 15 min check, increased to 250 at this time (0745) Heparin 0. See HD flowsheet for further information. Easily accessed via right upper arm fistula with + thrill and bruit using 15 gauge needles facing up and up with positive blood return and flushing easily. Site clean and dry with no signs of infection. 0800 BFR increased to 300. PATIENT EDUCATION TOPIC: PROCEDURE / SURGERY: Procedure/Surgery: HD PATIENT NAME: Espinoza Mariano PATIENT LOCATION: [id number]/[facility]* READINESS TO LEARN COGNITIVE ABILITY: Alert and oriented MOTIVATION TO LEARN: Interested FAMILY SUPPORT: Unable to assess - Family not present INSTRUCTION PROVIDED TO: Patient PATIENT LEARNS BEST BY: Individual Instruction FACTORS AFFECTING LEARNING: None PHYSICAL LIMITATIONS AFFECTING LEARNING: None LEARNING RESPONSE DIAGNOSIS: ADULT: Chronic Renal Failure PATIENT/FAMILY RESPONSE: Verbalizes understanding of: SYMPTOM MANAGEMENT-Correct actions to take to manage symptoms associated with his/her disease/illness METHOD OF INSTRUCTION: Individual instruction FOLLOW-UP PLAN: Complete - No need for follow-up INSTRUCTIONAL AIDS USED: NA SUPPLEMENTAL MATERIAL PROVIDED TO PATIENT: None REFERRAL (RECOMMENDATION): None Electronically Signed By: Joelle Myles [facility] 05-21-2023 Note HNO ID: [id number] Author: Note, Interface Service: ? Author Type: ? Type: Progress Notes Filed: 05/21/2023 5:55 AM Note Text: Epic Scheduled Downtime: 05/21/2023 1:00:00 AM to 05/21/2023 5:38:00 AM [facility] 05-20-2023 Note HNO ID: [id number] Author: Evangelina Vazquez MD Service: Interventional Cardiology Author Type: Physician Type: Plan of Care Filed: 05/20/2023 8:51 AM Note Text: Complex High Risk Indicated Procedure (CHIP) Note Discussed with patient and family the high risk of procedural complications. The risks include but are not limited to vascular injury, bleeding requiring transfusion, perforations, myocardial infarction, stroke, emergent mechanical circulatory support, pericardial effusion requiring pericardicentesis, arrhythmias requiring shock, and even . Benefits of the procedure include symptoms reduction and possibly resolution, as well as reduction in medication requirements. The risl ok not proceeding include increased tissue loss of the lower extremity and increased amputated tissue. The patient and family understood these risks and understand the benefits of the procedure and after shared decision making process opt to proceed with the procedure. Plan to transfuse with HD as Hgb needs to be >8 [facility] 05-13-2023 Note [facility] 05-13-2023 Miscellaneous Notes Called sonPaul' cell with patient present. Agreeable to [facility] communication for procedure instructions. Advised to take last doses of Eliquis on Tuesday, then hold. Submitted procedure instructions via [facility] including arranging for dialysis on 05/21/[address] Vazquez on procedure order. Cardiac cath per Dr. Vazquez for Tuesday05/20/2023 Patient would like schedulers to call son Paul ([phone]) for scheduling Thank you documented in this encounter [facility] 05-13-2023 History of Present illness Narrative Images from the original note were not included. Heart, Vascular and Thoracic [place] Rene Humphrey Department of Cardiovascular Medicine SECTION OF INTERVENTIONAL CARDIOLOGY OUTPATIENT VISIT DATE 05/13/2023 OUTPATIENT VISIT TYPE New PRIMARY CARE PHYSICIAN: Martin Nunez [address] [place] [address] REFERRING PHYSICIAN: Evangelina Vazquez [id number] [facility] [facility] [address] CHIEF COMPLAINT: Patient presents with: Consult HISTORY OF PRESENT ILLNESS: Mr. Mariano is a 77 year old male who presents today for evaluation of critical limb threatening ischemia of the left lower extremity. The patient notes that he has left first digit of the lower extremity showed signs of gangrenous changes in February and underwent subsequent evaluation with podiatry who found the patient to have peripheral vascular disease prior to tissue debridement or amputation. He notes that the necrotic area has gotten larger and there are areas of purulence with malodorous discharge. Of note, the patient also had acute anemia 2 weeks ago requiring 2 units of transfusion and is due to undergo endoscopy on May 18, 2023 to further assess the cause of the anemia. He has a history of ulcers that have been treated with sclerotherapy in the past. Moreover, the patient takes Eliquis for atrial fibrillation and receives hemodialysis on Tuesday and Saturdays. 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 Risk factors for coronary artery disease hyperlipidemia, hypertension, obesity Diet / Nutrition: poor dietary control Weight: no change since last visit Exercise: limited currently from [facility] PAST MEDICAL HISTORY Diagnosis Date Acute on chronic renal failure 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 Calculus of kidney 1970 Chronic kidney disease (CKD), stage V (HCC) Chronic kidney disease, stage 5 (HCC) bladder cancer chemo destroyed kidney, 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 CKD (chronic kidney disease) stage 4, GFR 15-29 ml/min (HCC) 10/31/2019 after chemo for bladder CA Colonic mass DVT (deep venous thrombosis) (HCC) 04/21/2009 after cystectomy 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 AV FISTULA PLACEMENT HX Right 01/2021 Arteriovenous fistula transposition of basilic vein fistula. CATARACT EXTRACTION HX COLONOSCOPY W/BIOPSY 04/25/2017 Dr. Hammer EGD 04/25/2017 Dr. Hammer, dx guaic positive/ anemia; neg for mass/ulcer EXAM UNDER ANESTHESIA 2018 rigid proctoscopy and biopsies as well as a flexible sigmoidoscopy and biopsies. PAST SURGICAL HISTORY OF 2008 TURBT, bladder and kidney stones removed PAST SURGICAL HISTORY OF cleft lip surgery PAST SURGICAL HISTORY OF 04/17/2020 Laparoscopic insertion of a peritoneal dialysis catheter. PICC LINE INSERT/CONSULT 08/08/2017 power port REMOVAL OF KIDNEY STONE 2018 percutanous TONSILLECTOMY AND ADENOIDECTOMY HX URETEROILEAL CONDUIT W/INTESTINE ANASTOMOSIS 04/14/2009 SOCIAL HISTORY Social History Tobacco Use Smoking status: Former Packs/day: 1.50 Years: 40.00 Additional pack years: 0.00 Total pack years: 60.00 Types: Cigarettes Quit date: 04/13/2009 Years since quittin.0 Smokeless tobacco: Never Vaping Use Vaping Use: Never used Substance Use Topics Alcohol use: No Drug use: No FAMILY HISTORY Problem Relation Age of Onset None Mother None Father Cancer Father lung ALLERGIES: ALLERGIES Allergen Reactions Heparin Analogues Other: See Comments HIT Aspirin Vomiting NAUSEA Heparin Other: See Comments Iodinated Contrast * Other: See Comments Lovenox [Enoxaparin] HIT MEDICATIONS: amoxicillin-clavulanate potassium (AUGMENTIN) 500-125 mg per tablet Take 1 tablet by mouth two times a day for 14 days. carvedilol (COREG) 3.125 mg tablet Take 1 tablet by mouth two times a day. sucralfate (CARAFATE) 1 gram tablet Take one tablet by mouth 4 times a day-1 hour before meals and at bedtime pantoprazole DR (PROTONIX) 40 mg tablet Take 1 tablet by mouth once daily. Take on empty stomach, 1/2 hr before meal. budesonide, enteric coated (ENTOCORT EC) 3 mg 24 hr capsule Take 3 capsules by mouth once daily. amiodarone (PACERONE) 200 mg tablet Take 1 tablet by mouth once daily. Prescribed by [facility] apixaban (ELIQUIS) 2.5 mg tab(s) Take 1 tablet by mouth two times a day. For atrial fibrillation carvedilol (COREG) 6.25 mg tablet Take 1 tablet by mouth two times a day with meals. B Complex-Vitamin C-Folic Acid (RENAL-MARY) 0.8 mg tab Take 1 tablet by mouth. vitamin b complex (B COMPLETE) tab Take 1 tablet by mouth once daily. sucroferric oxyhydroxide (VELPHORO) 500 mg chew 1 tablet with each meal Gauze Bandage 4 X 4 bndg Apply 1 application to affected area twice daily. polyethylene glycol 3350 (MIRALAX ORAL) Take 1 Tablespoonful by mouth as needed. REVIEW OF SYSTEMS: GENERAL: negative for: fevers, chills, and change in weight HEENT: negative for: headaches, hearing loss, difficulty swallowing, visual changes, nose bleeds, dentures, own teeth SKIN: rashes, lesions, and ulcers RESPIRATORY: SEE HPI CARDIOVASCULAR: See HPI GASTROINTESTINAL: negative for: abdominal pain, nausea, vomiting, difficulty or painful swallowing, and melanotic stools GENITOURINARY: negative for: dysuria, frequency, nocturia, and male potency MUSCULOSKELETAL: negative for: joint pain, joint swelling, muscle pain or myalgias, and pain with walking NEUROLOGIC: negative for: numbness, tingling, and sensation of pins and needles HEMATOLOGY: negative for: bruising easily, prolonged bleeding, anemia, and cancer ENDOCRINE: negative for: cold or heat intolerance, polyuria, polydipsia, goiter, diabetes, and thyroid disease PSYCH: negative for: sleep disturbance, mood disorders, and recent psychosocial stressors PHYSICAL EXAMINATION: BP 110/60 Pulse 79 Ht 5' 9 (1.75m) Wt 216 lb (98.0kg) BMI 31.88 kg/(m^2). General: Well appearing, in no acute distress, speaking in complete sentences. Skin: No clubbing, no cyanosis. Head/Eyes: Extra ocular movements intact Mouth: Teeth in good repair. Neck: No jugular venous distention, no carotid bruits, carotids have a normal upstroke, no palpable thyromegaly. Lungs: Clear to auscultation and no rales Heart: Regular rhythm, PMI not displaced, S1, S2 normal, no S3, no S4, no heaves, no rub and no murmur. Abdomen: Soft, nontender, bowel sounds normal, no palpable organomegaly, no bruits. Musculoskeletal: Normal gait and ambulation Neuro: Oriented to time, place and person Peripheral Arterial Exam Location Right Left Carotid No Bruit No Bruit Femoral 2+/2+ 2+/2+ Popliteal 1+/2+ 0/2+ Dorsalis Pedis 1+/2+ 1/2+ Posterior Tibial 1+/2+ 1/2+ High Abdomen No bruit Low Abdomen No Bruit 05/13/2023 CARDIOVASCULAR MEDICINE TESTING: Electrocardiogram: AF RBBB Laboratory Testing: Cr 3.21, last reported hgb per pt 9.5 post transfusion Arterial Duplex Ultrasound: IMPRESSION Technically difficult exam due to shadowing from calcified arteries. Compared to prior study of 04/15/2023, TBI's: Right 0.52 (mild ankle) ; Left 0.20 (moderate). Left lower extremity arterial duplex only per Dr. Vazquez. RIGHT SIDE Common femoral artery mid: plaque noted without evidence of hemodynamically significant stenosis . Heavily calcified artery. LEFT SIDE Distal external iliac artery, Common femoral artery and Popliteal artery : plaque noted without evidence of hemodynamically significant stenosis . Profunda femoral artery origin: 50-99% stenosis . Superficial femoral artery : patent , with low velocity monophasic flow. Calcified plaque with shadowing noted throughout the length of the vessel. Anterior tibial artery mid calf: patent , with low velocity monophasic flow. Only visualized in a small segment in the mid calf. Posterior tibial artery and Peroneal artery throughout: . Unable to visualize. Technologist: Ana Cristina Cobb RVT, [facility] Ordering physician: EVANGELINA VAZQUEZ Interpreting physician: Jeevan Hughes MD, VI Pulsed Volume Recording (PVR)/Ankle Brachial Index (CORBIN): I have personally reviewed the Electrocardiogram, Laboratory Testing, Carotid Duplex Ultrasound, and Pulsed Volume Recording (PVR)/Ankle Brachial Index (CORBIN). IMPRESSION: Mr. Mariano is a 77 year old male who presents with chronic limb threatening ischemia of the first left lower extremity digit. The patient is due for a GI endoscopy on May 18, 2023 due to recent drop in hemoglobin to 6.5 that required 2 units of transfusion given a history of GI ulcer that was treated with sclerotherapy in the past. While it would be ideal to proceed with the revascularization of the lower extremity as soon as possible given that he has had a GI bleed and will require anticoagulation during the procedure I would prefer the patient have his GI endoscopy first and then proceed accordingly. Moreover, the patient has a history of heparin-induced thrombocytopenia with venous thrombosis on heparin and will require Angiomax/bivalirudin for the procedure. Lastly, we will plan for revascularization on May 20, 2023 if the endoscopy results are favorable for anticoagulation followed by hemodialysis on May 21, 2023. Critical limb ischemia of left lower extremity (hcc) (primary encounter diagnosis) Obesity, class i, bmi 30-34.9 Esrd (end stage renal disease) on dialysis (hcc) Acute heart failure with preserved ejection fraction (hfpef) (hcc) Essential hypertension Ulcerative pancolitis (hcc) PLAN AND RECOMMENDATIONS: -Continue with antibiotics as prescribed patient is on Augmentin -Plan for revascularization on May 20, 2023 if GI endoscopy results allow -Continue with anticoagulation for atrial fibrillation -Continue antidepressant hypertensives as prescribed -Continue with hemodialysis as scheduled -Return to clinic in 4 weeks -Heart healthy diet counseling performed -age and risk appropriate malignancy screening per pcp -if patient has recurrent or worsening symptoms, patient is instructed to come to the ED or call 911 -patient understands and agrees with the plan CONTACT INFORMATION: Evangelina Vazquez M.D. Section of Interventional Cardiology & Endovascular Interventions Rene Humphrey Department of Cardiovascular Medicine Heart, Vascular and Thoracic [place] [facility] Office Office Pager [phone] This note was partially generated using [employer] voice recognition system, and there may be some incorrect words, spellings, and punctuation that were not noted in checking the note before saving documented in this encounter [facility] 05-06-2023 Note [facility] 05-06-2023 Note [facility] 05-06-2023 Note [facility] 05-06-2023 Note [facility] 05-06-2023 History of Present illness Narrative Transitional Care Management Progress Note The patients TCM visit was performed within the 14 days of discharge. Patient's Date of discharge: 04/28/2023 Date of initial coordinator contact after discharge: 04/29/2023 Discharge diagnosis: renal failure on dialysis, anemia, a-fib Medication review completed Yes Cayla Cortes APRN.DONOR TECHNICIAN Provider Documentation: In follow-up of hospitalization, Espinoza Mariano is a 77 year old male with the chief complaint of end stage renal failure on dialysis, anemia, a-fib I have reviewed the patient s last hospital course including diagnostic testing performed during this hospitalization, their discharge medications, and my assessment and plan with the patient and any family members present at today s visit. HPI: Had dialysis yesterday and overall felt pretty good. Did a lot of work around the house yesterday and feeling pretty run down today-is at 70% energy right now. States is not depressed-prays to God to help him not to be and to make it through everything. Occasionally urinates, not every day, but only a small amount when he does. Saw Dr. Hill today and is getting referred for his left foot wound to [facility]. Breathing is good today. Denies any chest pain. LORI fistula. PAST MEDICAL HISTORY: Reviewed and updated ALLERGIES: Reviewed and updated MEDICATIONS: Reviewed and updated SOCIAL HISTORY: Reviewed and updated FAMILY HISTORY: Reviewed and updated REVIEW OF SYSTEMS: All other systems reviewed and negative, other than HPI. PHYSICAL EXAMINATION BP 108/60 Pulse 71 Resp 20 Wt 216 lb 7.9 oz (98.2kg) SpO2 94% General appearance: well appearing, alert, in no acute distress, and well-hydrated, well nourished, motor and sensory appear to be normal Lungs: diminished in bases bilaterally, clear to auscultation Heart: irregular Abdomen: Deferred Extremities: wound to left great toe, is wrapped and not visualized by myself. Otherwise extremities normal. No deformities, edema, or skin discoloration. Good capillary refill. 1. I have reviewed the patient record including associated test results during the last hospitalization Yes 2. I have reviewed Lab test Yes 3. I have reviewed Radiology test Yes 4. I reviewed assessment/plan with the patient/family member Yes ASSESSMENT/PLAN: 1. ESRD (end stage renal disease) on dialysis (HCC) - ICD9: 585.6, V45.11, ICD10: N18.6, Z99.2 (primary diagnosis) To continue following with nephrology and hemodialysis. 2. Anemia, unspecified type - ICD9: 285.9, ICD10: D64.9 To continue following with nephrology and hemodialysis. 3. Open wound of left great toe, initial encounter - ICD9: 893.0, ICD10: S91.102A Was seen by podiatry today. Being referred to wound care at [facility]. 4. Essential hypertension - ICD9: 401.9, ICD10: I10 - Controlled - Continue current medications - Recommend home blood pressure monitoring, to bring results to next visit - Encouraged sodium restriction, DASH or Mediterranean diet - Recommend regular aerobic exercise Cayla Cortes APRN.CNP May 06, 2023 1:07 PM documented in this encounter [facility] 04-29-2023 Note [facility] 04-22-2023 Note [facility] 04-22-2023 Note [facility] 04-22-2023 History of Present illness Narrative Images from the original note were not included. FOLLOW UP PODIATRIC OFFICE VISIT Chief Complaint: This 77 year old who presents for follow up:left 2nd toe ulceration Patient presents to clinic for follow-up left 2nd toe ulceration. Currently applying topical antibiotic and guaze to his toe Has an appointment with Dr. Remy Miramontes on May 04 PAIN EVALUATION 04/22/2023 1405 Pain Level: 3 Pain Location: Toe Description: Sore Duration Amount of Time: -- ongoing Duration Units: Months Frequency: Intermittent Hemoglobin A1C Date Value Ref Range Status 07/26/2019 6.5 (H) 4.3 - 5.6 % Final Comment: [place] Diabetes Association guidelines indicate that patients with HgbA1c in the range 5.7-6.4% are at increased risk for development of diabetes, and intervention by lifestyle modification may be beneficial. HgbA1c greater or equal to 6.5% is considered diagnostic of diabetes. 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 Prescribed by [facility] apixaban (ELIQUIS) 2.5 mg tab(s) Take 1 tablet by mouth two times a day. For atrial fibrillation carvedilol (COREG) 6.25 mg tablet Take 1 tablet by mouth two times a day with meals. B Complex-Vitamin C-Folic Acid (RENAL-MARY) 0.8 mg tab Take 1 tablet by mouth. vitamin b complex (B COMPLETE) tab Take 1 tablet by mouth once daily. sucroferric oxyhydroxide (VELPHORO) 500 mg chew 1 tablet with each meal Gauze Bandage 4 X 4 bndg Apply 1 application to affected area twice daily. polyethylene glycol 3350 (MIRALAX ORAL) Take 1 Tablespoonful by mouth as needed. No current facility-administered medications for this visit. ALLERGIES Allergen Reactions Heparin Analogues Other: See Comments HIT Aspirin Vomiting NAUSEA Heparin Other: See Comments Iodinated Contrast * Other: See Comments Lovenox [Enoxaparin] HIT PAST SURGICAL HISTORY Procedure Laterality Date ARTERIOVENOUS FISTULA Right 04/29/2020 Creation of right brachial basilic AV fistula first-stage. AV FISTULA PLACEMENT HX Right 01/2021 Arteriovenous fistula transposition of basilic vein fistula. CATARACT EXTRACTION HX COLONOSCOPY W/BIOPSY 04/25/2017 Dr. Hammer EGD 04/25/2017 Dr. Hammer, dx guaic positive/ anemia; neg for mass/ulcer EXAM UNDER ANESTHESIA 2018 rigid proctoscopy and biopsies as well as a flexible sigmoidoscopy and biopsies. PAST SURGICAL HISTORY OF 2008 TURBT, bladder and kidney stones removed PAST SURGICAL HISTORY OF cleft lip surgery PAST SURGICAL HISTORY OF 04/17/2020 Laparoscopic insertion of a peritoneal dialysis catheter. PICC LINE INSERT/CONSULT 08/08/2017 power port REMOVAL OF KIDNEY STONE 2018 percutanous TONSILLECTOMY AND ADENOIDECTOMY HX URETEROILEAL CONDUIT W/INTESTINE ANASTOMOSIS 04/14/2009 Physical Exam: OBJECTIVE: Constitutional: Pt is a well developed 77 year old male who is alert, oriented, cooperative and in no apparent distress. Eyes: Following during examination. No redness or drainage. Respiratory: RR normal and nonlabored. Even breathing. No evidence of distress. Psychology: Patient is engaged during conversation. Normal affect and mood. Does not appear depressed or anxious. Vascular: DP and PT pulses are nonpalpable to his left foot. CFT is delayed. Skin is ruborous. Hair growth is absent. Non-Invasive Vascular Laboratory [facility] Lower Extremity Arterial Physiology Study Bilateral/Complete Date of service/time: 04/15/2023 2:07:46 PM Name: MR. ESPINOZA MARIANO Date of : 1945 Age: 77 years Gender: M Clinical Indication Left first digit ulceration and decreased pulses. TECHNIQUE -------- An arterial physiological examination was performed, including measurement of blood pressures using continuous wave Doppler and recording of plethysmographic with or without Doppler waveforms at the below-mentioned limb segments. FINDINGS -------- RIGHT SIDE AT REST Right Doppler Waveforms Dorsalis pedis: Monophasic. Post tibial: Multiphasic. Right Pressures Brachial: Arteriovenous fistula. Ankle dorsalis pedis: 255 mmHg CORBIN: 2.26 Non-compressible arteries. Ankle posterior tibial: 255 mmHg CORBIN: 2.26 Non-compressible arteries. Digit: 59 mmHg Right PVR Waveforms Ankle: Mildly dampened. Digit: Mildly dampened. LEFT SIDE AT REST Left Doppler Waveforms Dorsalis pedis: Monophasic. Post tibial: Monophasic. Left Pressures Brachial: 113 mmHg Ankle dorsalis pedis: 144 mmHg CORBIN: 1.27 Partially non-compressible arteries. Ankle posterior tibial: 255 mmHg CORBIN: 2.26 Non-compressible arteries. Digit: 23 mmHg Left PVR Waveforms Ankle: Moderately dampened. Digit: Moderately dampened. IMPRESSION The patient has an CORBIN consistent with a diagnosis of peripheral artery disease. Consider referral to a vascular specialist for evaluation unless already implemented. RIGHT SIDE Resting right ankle brachial index: 2.26 Right toe brachial index: 0.52 Non-compressible vessels, results called by PVR tracings. Abnormal toe brachial index at rest is evidence of peripheral artery disease. Right ankle: Mild disease at rest. LEFT SIDE Resting left ankle brachial index: 2.26 Non-compressible arteries, CORBIN not accurate. Left toe brachial index: 0.20 Non-compressible vessels, results called by PVR tracings. Abnormal toe brachial index at rest is evidence of peripheral artery disease. Left ankle: Moderate disease at rest. Technologist: Cyndi Krishnamurthy RVT, [facility] Ordering physician: DAVID HILL Interpreting physician: CRISTOPHER Norris DO Dermatological: Ulceration #1 Location: left hallux distal tuft Measurement: 2.0 cm x 2.0 cm Base: granular with necrotic slough. No redness, drainage or local signs of infection. Of note, bone is not visible at this time but the distal tuft is close proximity to wound. ASSESSMENT: (L97.522) Ulcer of toe of left foot, with fat layer exposed (HCC) (primary encounter diagnosis) (I73.9) PAD (peripheral artery disease) ([facility]) PLAN: I discussed the appearance of left hallux ulceration with patient and son at great detail. The wound remains stable, one that is free of any drainage or clinical signs of infection. There is small amount of necrotic slough that I am going to defer debridement until vascular status restored. I will continue with local wound care to include topical antibiotic, adaptic and guaze. Other options discussed include santyl but he seems to be doing well with the antibiotic cream so will continue with this I do foresee issues healing this wound unless vascular status improved to the left foot. I discussed case with [facility] and I was able to get patient scheduled with vascular surgery this coming Tuesday. The foot appears stable so will have him treat this as an outpatient for now. If condition changes and warrants hospitalization, he is to present to ED. I do feel that once vascular status is improved, can proceed with debridement and attempts to heal this wound. Certainly, the distal tuft of hallux distal phalanx is in close proximity to wound so the longer this wound is open, the greater the risk of bone infection and possible need for amputation. I informed patient this today that he is certainly at risk of amputation (minor or major amputation). I plan to see patient weekly but I am out of town the week of so I will request that he possibly see vascular that week. If patient has any questions, he will contact us. I provided my cell number so patient can contact me if he has any issues David Hill DPM AMB ROOMING INTAKE FLOWSHEET DATA Pain Pain Level: 3 Pain Location: Toe Description: Sore Duration Amount of Time: (ongoing) Duration Units: Months Frequency: Intermittent documented in this encounter [facility] 04-22-2023 Instructions David Hill - 04/22/2023 2:26 PM EDT Apply small amount of topical antibiotic to the toe daily Will try to get you in with Dr. Miramontes documented in this encounter [facility] 04-18-2023 Miscellaneous Notes Note has been faxed to remy hwang office. Connie Bueno LPN Can we please fax my note from Tuesday to [facility] vascular surgery and see if they can get patient in [facility]. He has nonhealing wound in scenario of vascular disease He would prefer to stay local at [facility] If he is unable to get in rocio and his toe gets worse, have him present to Emergency department. David Hill DPM documented in this encounter [facility] 04-15-2023 Note [facility] 04-15-2023 Note [facility] 04-15-2023 Note [facility] 04-14-2023 Note [facility] 04-14-2023 Miscellaneous Notes According to reconcile dispense list Amiodarone has been prescribed by Grazyna Zhang 04/04/23 qty: 30 with 11 refills and sent to [facility]. Also added to patient medlist with note prescribed by cardio. Unable to reach patient. Left detailed message on identified VM. Sirisha Soler MA Please call patient/son to make sure that [facility] called in the amiodarone. This isn't a medication I prescribe. If they didn't, then please notify the [facility] to send over rx for patient Martin Nunez DO Espinoza Mariano is calling Martin Nunez DO today he stated he was prescribed the following medication: Amiodarone 200 mg, take one tablet daily. Originally Dr. Jaymie He prescribed this but he just saw Dr. Grazyna Escobar at [facility] who prescribed the medication but did not send it to his Pharmacy. He is asking if Dr. Nunez will renew his prescription at [facility]. Notified this medication is not even on his list, a message will be sent to the nurse/doctor to review. Please call the Patient. Patient has been identified by name and birthdate. Duration of symptoms: N/A Person calling: self Call patient at: on cell [phone] (home) [phone] (cell) Was an appointment scheduled: No Closing statement: Results or non-symptom based questions: Thank you for calling [facility], your call will be returned within the next business day. Kimberley Meza Pss documented in this encounter [facility] 04-06-2023 Miscellaneous Notes Herbie from [facility] Home Health calling with PT plan of care, 2 visits weekly for 2 weeks working on functional mobility training. No need for call back. documented in this encounter [facility] 04-01-2023 Miscellaneous Notes Cori notified, verbalized understanding. Winter Paris MA OK for a delay in care order to see pt next week River Robertson MD Routing to provider grails web application developer, to please review in pcp/team absence. Shani Oreilly LPN Cori with [facility], calling to let you know PT was not able to see pt this week and are asking for a delay in care order to see pt next week. Please advise Cori. Shani Oreilly LPN documented in this encounter [facility] 03-29-2023 Miscellaneous Notes See 03/28/[address] [facility] aware. Denisha Sherwood RN Agree with below. Cayla Cortes APRN.DONOR TECHNICIAN Jammie - [facility]- reports patient did not discharge from hospital yesterday. Plan is for discharge today. Reports patient has dialysis over the weekend, so start of care will be Tuesday, Mar 28. Need verbal approval for start of care on Tuesday. Please phone [phone]. Ok to leave vm on confidential vm. documented in this encounter [facility] 03-28-2023 Miscellaneous Notes Noted. Thank you, Elvi Fajardo APRN.CNP Shayla jones from [facility] calling to update. Pt will have SN 2x per week for 2 wks then 1x per week for 3 wks then will evaluate again. Seeing for fall prevention education, medication education and GI bleed and anemia education as that is what pt was admitted to hospital for. Call only if problems. documented in this encounter [facility] 03-24-2023 Miscellaneous Notes Left detailed message on nurse Agudelo's secure VM. Winter Paris Yes, we will accept and follow. Thank you, Elvi Fajardo APRN.DONOR TECHNICIAN Jammie at [facility] calling. Reports patient will most likely be discharging from [facility] today. Dx: GI Bleed. Pt has orders for Home Health Nursing, PT and OT. Asking if provider is willing to accept and follow these orders? Please call Jammie back today, if possible, at [phone]. Thank you. documented in this encounter [facility] 02-28-2023 Miscellaneous Notes Agree with below. Thank you, Elvi Fajardo APRN.DONOR TECHNICIAN Patient calling to say he was seen in [facility] ER on 02/12/23 for diarrhea. He is crying and says the diarrhea has not stopped. States every time he eats or drinks something It comes right back out . He says today he feels dizzy, weak and almost passed out this morning. Advised patient to return to ER. Amirah Dominguez RN documented in this encounter [facility] 02-12-2023 Note [facility] 02-12-2023 History of Present illness Narrative [facility] TRIAGE NOTE: Espinoza Mariano is a 77 year old male who presents with the following complaints: watery diarrhea for the past week, dizziness when he stands up, big toe on left foot has lost its nail, skin is discolored on left foot, unable to go to dialysis today due to feeling weak. He is triaged to the ER for further evaluation and treatment. Concern for electrolyte imbalance and cellulitis on foot. Kylah Plaza APRN.DONOR TECHNICIAN documented in this encounter [facility] 01-25-2023 Miscellaneous Notes Patient informed. I have never referred patient to a transplant team, this is always done by the specialist of the organ that needs transplanted (kidney transplant, then by property field adjuster etc). I don't understand this message Martin Nunez DO Patient calls back and states that he just talked to Dr. Garcia on phone. Dr. Garcia cannot authorize patient to be put on transplant list. Patient states that Dr. Nunez needs to contact transplant team [phone]- [facility] [phone]- [facility] Looks like patient was referred to Kidney Transplant on 12/08/2022. Referral was cancelled due to age. Program protocol states 76+ does not qualify for kidney transplant. Patient was told this, but does not understand because he knows someone who had kidney transplant who was older and lived 10 more years. Patient wondering if [facility] would have different requirements. Please review and advise, Sima Mariano RN Patient calls and states that he had appointment with Legal Document Assistant today. Patient states that he was told that provider could not see him because they do not see patients that need transplants because they are not a part of transplant team. Sima Mariano RN documented in this encounter [facility] 01-17-2023 Miscellaneous Notes Noted Martin Nunez DO Pt called with information you requested last time he saw you. He gets lab work done when he goes to dialysis at [facility] [phone] He thru [employer]. Pt will remind them to send copies to you and he was given fax number. Pt's next apt with dialysis is 01-18-23. Shani Oreilly LPN documented in this encounter [facility] 01-03-2023 Miscellaneous Notes Called patient regarding kidney transplant referral, advised him the appointment currently scheduled on 01/24/23 is for a nephrology consult due to kidney disease (CKD), not for transplant, and he states he will keep that appointment. Also, advised patient, per our program protocol patients 76+ doesn't qualify for kidney transplant, referral ended, and verbalized understanding. Amanda Mabry Returned call to Espinoza Mariano without success regarding their previous call regarding kidney transplant referral. Voicemail message was left for patient to call our office. Amanda Mabry Patient called back in regarding missed call for Kidney Transplant intake would like callback [phone] Patient called in regarding missed call for Kidney Transplant intake would like callback [phone] Called Espinoza Mariano without success regarding referral-Kidney Transplant. Voicemail message was left for patient to call our office. Amanda Mabry documented in this encounter [facility] 12-07-2022 Note [facility] 12-07-2022 History of Present illness Narrative CC: Espinoza Mariano is a 77 year old male who presents to the office for follow up HPI: Seen in office last on 05/17/2022 by Enra Cortes CNP, at that time Was in [facility] for bacteremia and NSTEMI. His dialysis catheter was removed as suspicion for source of infection. Does still have a mediport in his chest. Is feeling much better, getting around more but is a little weak. Is wearing O2 because he was SOB in the ED. Is working to wean himself off the supplemental O2. Scheduled to see cardiology in [address] Gallego. Urinates very small amounts, some days does not urinate. Fistula to right upper arm, does HD three days per week. Currently ESRD, he is undergoing dialysis on , Sat at this time. He is overall tolerating okay, does cause him some difficulty with hypotension at times. Hemoglobin with Legal Document Assistant Dr. Blake recently was at 11.6. he is taking his renal vitamins and attempting to eat a renal diet. He would like 2nd opinion regarding possibility of being on the kidney transplant recipient list if able. 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 AV FISTULA PLACEMENT HX Right 01/2021 Arteriovenous fistula transposition of basilic vein fistula. CATARACT EXTRACTION HX COLONOSCOPY W/BIOPSY 04/25/2017 Dr. Hammer EGD 04/25/2017 Dr. Hammer, dx guaic positive/ anemia; neg for mass/ulcer EXAM UNDER ANESTHESIA 2018 rigid proctoscopy and biopsies as well as a flexible sigmoidoscopy and biopsies. PAST SURGICAL HISTORY OF 2008 TURBT, bladder and kidney stones removed PAST SURGICAL HISTORY OF cleft lip surgery PAST SURGICAL HISTORY OF 04/17/2020 Laparoscopic insertion of a peritoneal dialysis catheter. PICC LINE INSERT/CONSULT 08/08/2017 power port REMOVAL OF KIDNEY STONE 2018 percutanous TONSILLECTOMY AND ADENOIDECTOMY HX URETEROILEAL CONDUIT W/INTESTINE ANASTOMOSIS 04/14/2009 Current Outpatient Medications Medication Sig vitamin b complex (B COMPLETE) tab Take 1 tablet by mouth once daily. sucroferric oxyhydroxide (VELPHORO) 500 mg chew 1 tablet with each meal carvedilol (COREG) 6.25 mg tablet Take 1 tablet by mouth twice daily with meals. polyethylene glycol 3350 (MIRALAX ORAL) Take 1 Tablespoonful by mouth as needed. apixaban (ELIQUIS) 2.5 mg tab(s) Take 1 tablet by mouth twice daily. For atrial fibrillation Gauze Bandage 4 X 4 bndg Apply 1 application to affected area twice daily. No current facility-administered medications for this visit. ALLERGIES Allergen Reactions Heparin Analogues Other: See Comments HIT Aspirin Vomiting NAUSEA Heparin Other: See Comments Iodinated Contrast * Other: See Comments Lovenox [Enoxaparin] HIT Social History Tobacco Use Smoking status: Former Packs/day: 1.50 Years: 40.00 Pack years: 60.00 Types: Cigarettes Quit date: 04/13/2009 Years since quittin.6 Smokeless tobacco: Never Vaping Use Vaping Use: Never used Substance Use Topics Alcohol use: No Drug use: No ROS: See HPI PE: BP 126/60 Pulse 64 Temp (Src) 96.2 (Left Tympanic) Resp 20 Wt 224 lb (101.6kg) Gen: A&OX3, NAD, non-toxic appearing HEENT: PERRLA, EOMs intact b/l, nares without drainage, pharynx without erythema, exudate, lesions, or drainage. Uvula midline. Neck: No LAD, no thyromegaly, no meningismus. CV: RRR, no murmur Lungs: CTA b/l, no wheezing Skin: No rashes, lesions, or wounds on exposed skin. No edema, normal pulses Obese abdomen Fistula in place on right upper arm Gait is slowed but stable Wearing glasses ASSESSMENT/PLAN: 1. Essential hypertension - ICD9: 401.9, ICD10: I10 (primary diagnosis) - Controlled - Continue current medications - Recommend home blood pressure monitoring, to bring results to next visit - Encouraged sodium restriction, DASH or Mediterranean diet - Recommend regular aerobic exercise - Discussed need for and benefit of weight loss. BMI 33.08 kg/(m^2) 2. Paresthesias - ICD9: 782.0, ICD10: R20.2 - rx refilled. - VITAMIN B COMPLEX TABLET 3. Persistent atrial fibrillation (HCC) - ICD9: 427.31, ICD10: I48.19 - rx refilled. Overall stable - APIXABAN 2.5 MG TABLET 4. Secondary hyperparathyroidism of renal origin (HCC) - ICD9: 588.81, ICD10: N25.81 - stable, secondary to ESRD 5. Drug-induced polyneuropathy (HCC) - ICD9: 357.6, E980.5, ICD10: G62.0 - chronic, seems to be stable. 6. ESRD (end stage renal disease) on dialysis (HCC) - ICD9: 585.6, V45.11, ICD10: N18.6, Z99.2 - eGFR: Stable - Counseled on avoiding NSAIDs, adequate hydration - follow up with Legal Document Assistant, unsure if he is a renal transplant candidate - Counseled on low sodium diet - DEPRESSION SCREENING/ASSESSMENT - CONSULT TO NEPHROLOGY - VELPHORO 500 MG CHEWABLE TABLET 7. IFG (impaired fasting glucose) - ICD9: 790.21, ICD10: R73.01 - stable 8. Dyslipidemia - ICD9: 272.4, ICD10: E78.5 - Controlled - Continue current medications - Counseled on healthy diet and regular exercise Martin Nunez DO Return if no improvement. Follow up with Martin Nunez DO. To ER if develops chest pain, shortness of breath Discussed risks, benefits, alternatives, and potential side effects of medications. Patient/Guardian expressed understanding and agreed with the plan. See patient instructions. Martin Nunez DO [address] [place] [address] documented in this encounter [facility] 08-05-2022 Miscellaneous Notes Patient has been identified by name and date of : Yes Requested Prescriptions Pending Prescriptions Disp Refills carvedilol (COREG) 6.25 mg tablet 180 tablet 2 Sig: Take 1 tablet by mouth twice daily with meals. Patient phones requesting refills as follows: [facility]O-05/17/22 Labs-05/17/22 NOV-none med filled 11/14/21 RX INSTRUCTIONS: Patient aware RX will be sent to pharmacy. No need to notify patient. Irasema Oreilly Pss documented in this encounter [facility] 07-09-2022 Miscellaneous Notes Last office visit: 05/17/22 F/u scheduled: none Ban Hicks Ma Pharmacy verified in Epic Patient has been identified by name and date of : Yes Patient aware RX will be sent to pharmacy. No need to notify patient. Patient phones for refill(s): Requested Prescriptions Pending Prescriptions Disp Refills apixaban (ELIQUIS) 2.5 mg tab(s) 180 tablet 1 Sig: Take 1 tablet by mouth twice daily. For atrial fibrillation Date of last office visit : 05/17/2022 Date of next office visit : Visit date not found Last 2 Encounter Wt Readings: Date: Wt: 05/17/2022 100.6 kg (221 lb 12.8 oz) 11/14/2021 108 kg (238 lb) Please advise. Jacque Nunez Pss documented in this encounter [facility] 05-28-2022 Miscellaneous Notes Order was faxed to [employer] as requested. Order is in the outbox in our office. Cayla Cortes APRN.CNP Please place order Winter Dunbar Ma Please get paperwork needed to be completed Martin Nunez DO Patient calls and states that he needs an order for a portable o2 concentrator. Patient had contacted [employer] in regard to this and was told that he needs an order from PCP. Please fax order to [employer]. Please review and advise, Sima Mariano RN documented in this encounter [facility] 05-27-2022 Miscellaneous Notes This has been ordered in separate encounter, rx is in the outbox in our office. Cayla Cortes APRN.CNP [facility] calling on behalf of patient. Patient is requesting order for portable oxygen concentrator for use for transportation to and from dialysis. Verified with patient he is still using O2 @ 2 L/nasal cannula. Please fax order to [facility]. Amirah Dominguez RN documented in this encounter [facility] 05-26-2022 Miscellaneous Notes Pt informed, verbalized understanding Winter Dunbar Ma There has been no growth in his blood cultures. Cayla Cortes APRN.CNP Patient calling asking for his blood culture results please. Please advise BLOOD CULTURE Order: [id number] Status: Preliminary result Visible to patient: No (not released) Dx: Bacteremia Specimen Information: BLOOD 0 Result Notes Culture No growth 3 days Resulting Agency: [facility] documented in this encounter [facility] 05-17-2022 Miscellaneous Notes Rec'd denial. Appeal supported: No Note from payer: The Medicare rule in the Prescription Drug Manual (Chapter 6, Section 10.10) says [id number]-[id number] (OTC) drugs are excluded from Medicare Part D coverage. Your drug is an [id number] drug. Per Medicare rules, it is not covered. Electronic PA completed for calcium acetate (CALPHRON,PHOSLO) 667 mg tablet documented in this encounter [facility] 05-12-2022 Miscellaneous Notes Sendy called and notified that plan of care is ok. Voiced Understanding. Sima Mariano RN Noted Martin Nunez DO Sendy calling from [facility] to report plan of care for patient and [facility] will visit patient 2 times a week for 4 weeks and 1 time a week for 1 week. [facility] will work with patient on Disease Education (NSTEMI, Pneumonia, and Supplemental Oxygen). Please review and Advise, Sima Mariano RN documented in this encounter [facility] 05-11-2022 Miscellaneous Notes Noted Martin Nunez DO with [facility], PT called with plan of care for pt. They will see pt 2 times a week for 2 weeks, then 1 time a week for 1 week for lower extremities strengthening, gait training and balance. No call back needed. Shani Oreilly LPN documented in this encounter [facility] 05-11-2022 Miscellaneous Notes Noted Martin Nunez DO Ban OT with [facility] called in to reports her POC for PT. She reports they are doing a one time only visit. She states the Pt has no concerns, is just getting used to wearing the oxygen. She reports he seems to be wearing it more at rest, than when he's up in the shower. She states she was talking to him about how he needs to us it more with activity. documented in this encounter [facility] 05-06-2022 Miscellaneous Notes Jammie informed [place] Dunbar Ma Yes Dr. Nunez will follow Cayla Cortes APRN.MICHELLE Jammie with [facility] called and states pt was d/c from [facility] yesterday 05-05-22 and orders for Nursing, PT, OT and home health aide were put in. DX nstemi. They plan to open care starting tomorrow 05-07-22 and checking to see if Dr. Nunez will follow. Please advise Jammie back. Okay to leave a detailed message. Shani Oreilly LPN documented in this encounter [facility] 01-01-2022 Miscellaneous Notes Patient has been identified by name and date of : Yes Pending Prescriptions Disp Refills FUROSEMIDE 40 MG TABLET 90 tablet 1 Sig: Take 1 tablet by mouth once daily. In the morning YAIMA: No ISIDORO-11/14/21 Labs-11/14/21 NOV-02/15/22 med filled 04/22/21 RX INSTRUCTIONS: Patient aware RX will be sent to pharmacy. No need to notify patient. Irasema Guerrero documented in this encounter [facility] 01-01-2022 Miscellaneous Notes Patient has been identified by name and date of : Yes Pending Prescriptions Disp Refills VITAMIN B COMPLEX TABLET 90 tablet 3 Sig: Take 1 tablet by mouth once daily. YAIMA: No ISIDORO-11/14/21 Labs-11/14/21Apr-02/15/22 med filled 01/08/21 RX INSTRUCTIONS: Patient requesting a call when RX is approved and sent to the pharmacy. Please call patient at: [phone]. Irasema Guerrero documented in this encounter [facility] 12-11-2021 Miscellaneous Notes Noted. Thank you. Elvi Valdivia APRN.CNP Called patient to schedule for colonoscopy screening - patient did not know that this was something needing scheduled and does not want to schedule. documented in this encounter [facility] 12-10-2021 History of Present illness Narrative Called patient to schedule for colonoscopy screening - patient did not know that this was something needing scheduled and does not want to schedule. Sent note to Dr Nunez Patient due for screening colonoscopy . Patient is not appropriate for open access. Please schedule office consult Moncho Hein documented in this encounter [facility] 11-17-2021 History of Present illness Narrative CC: Espinoza Mariano is a 76 year old male who presents to the office for arrhythmia concerns HPI: Patient was recently seen in his Legal Document Assistant office and she had concerns that he may have a new onset arrhythmia. He states that he doesn't have any tachycardia or palpitations symptoms. He has had fatigue and does get shortness of breath with activity, which seems to be worse than prior. No syncope or presyncope symptoms. No new LH or dizziness. Is stage 4-5 CKD Sinus pressure, left>right x 3-4 weeks, has been trying mucinex and antihistamine OTC without relief. No fevers or chills. 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 AV FISTULA PLACEMENT HX Right 01/2021 Arteriovenous fistula transposition of basilic vein fistula. CATARACT EXTRACTION HX COLONOSCOPY W/BIOPSY 04/25/2017 Dr. Hammer EGD 04/25/2017 Dr. Hammer, dx guaic positive/ anemia; neg for mass/ulcer EXAM UNDER ANESTHESIA 2018 rigid proctoscopy and biopsies as well as a flexible sigmoidoscopy and biopsies. PAST SURGICAL HISTORY OF 2008 TURBT, bladder and kidney stones removed PAST SURGICAL HISTORY OF cleft lip surgery PAST SURGICAL HISTORY OF 04/17/2020 Laparoscopic insertion of a peritoneal dialysis catheter. PICC LINE INSERT/CONSULT 08/08/2017 power port REMOVAL OF KIDNEY STONE 2018 percutanous TONSILLECTOMY AND ADENOIDECTOMY HX URETEROILEAL CONDUIT W/INTESTINE ANASTOMOSIS 04/14/2009 Current Outpatient Medications Medication Sig carvedilol (COREG) 6.25 mg tablet Take 1 tablet by mouth twice daily with meals. ferrous sulfate 325 mg (65 mg iron) tablet Take 1 tablet by mouth three times daily with meals. furosemide (LASIX) 40 mg tablet Take 1 tablet by mouth once daily. In the morning calcitriol (ROCALTROL) 0.25 mcg capsule Take 1 capsule by mouth once daily. (Patient taking differently: Take 0.25 mcg by mouth once daily. 5 days per week ) Gauze Bandage 4 X 4 bndg Apply 1 application to affected area twice daily. potassium chloride (K-TAB) 10 mEq tablet Take 2 tablets by mouth once daily. For 30 days (Patient taking differently: Take 20 mEq by mouth three times daily. For 30 days Pt takes 20 Meq daily ) vitamin b complex (B COMPLETE) tab Take 1 tablet by mouth once daily. diclofenac (VOLTAREN ARTHRITIS PAIN) 1 % topical gel Apply 2 g to affected area four times daily. On right knee if painful polyethylene glycol 3350 (MIRALAX ORAL) Take 1 Tablespoonful by mouth as needed. Amoxicillin 500 mg tablet Take 1 tablet by mouth twice daily for 10 days. apixaban (ELIQUIS) 2.5 mg tab(s) Take 1 tablet by mouth twice daily. For atrial fibrillation gentamicin 0.1% 0.1 % cream once daily. (Patient not taking: Reported on 10/12/2021 ) montelukast (SINGULAIR) 10 mg tablet Take 1 tablet by mouth daily at bedtime. For congestion (Patient not taking: Reported on 09/23/2021 ) No current facility-administered medications for this visit. ALLERGIES Allergen Reactions Heparin Analogues Other: See Comments HIT Aspirin Vomiting NAUSEA Heparin Other: See Comments Iodinated Contrast * Other: See Comments Lovenox [Enoxaparin] HIT Social History Tobacco Use Smoking status: Former Smoker Packs/day: 1.50 Years: 40.00 Pack years: 60.00 Types: Cigarettes Quit date: 04/13/2009 Years since quittin.6 Smokeless tobacco: Never Used Vaping Use Vaping Use: Never used Substance Use Topics Alcohol use: No Drug use: No ROS: See HPI PE: BP 138/74 Pulse 77 Wt 238 lb (108.0kg) SpO2 96% Gen: A&OX3, NAD, non-toxic appearing HEENT: PERRLA, EOMs intact b/l, nares without drainage, pharynx without erythema, exudate, lesions, + yellow post nasal drainage. Uvula midline. EAC and TM normal b/l Neck: No LAD, no thyromegaly, no meningismus. CV: irregularly irregular, 1/6 HSM RUSB murmur Lungs: CTA b/l, no wheezing Skin: No rashes, lesions, or wounds on exposed skin. Appears mildly fatigued ASSESSMENT/PLAN: 1. Persistent atrial fibrillation (HCC) - ICD9: 427.31, ICD10: I48.19 (primary diagnosis) - ECG showing Atrial fibrillation with concerns for RBBB and potential left anterior fascicular block, new onset recently, has some dyspnea and fatigue, otherwise asymptomatic, will increase dose of Coreg to twice a day and start on Apixaban medication- adjusted for renal clearance due to stage 4/5 CKD. Will need to follow up with [employer] as soon as able to determine any other testing and further plan as d/w him today. - APIXABAN 2.5 MG TABLET 2. Essential hypertension - ICD9: 401.9, ICD10: I10 - new onset recently of Atrial fibrillation, has some dyspnea and fatigue, otherwise asymptomatic, will increase dose of Coreg to twice a day and start on Apixaban medication- adjusted for renal clearance due to stage 4/5 CKD. Will need to follow up with [employer] as soon as able to determine any other testing and further plan as d/w him today. - ECG COMPLETE - CARVEDILOL 6.25 MG TABLET 3. Acute non-recurrent maxillary sinusitis - ICD9: 461.0, ICD10: J01.00 - Will begin treatment with as per antibiotic as written, see orders - AMOXICILLIN 500 MG TABLET Martin Nunez DO Return if no improvement. Follow up with Martin Nunez DO. To ER if develops chest pain, shortness of breath\. Discussed risks, benefits, alternatives, and potential side effects of medications. Patient/Guardian expressed understanding and agreed with the plan. See patient instructions. Martin Nunez DO [address] [place] [address] documented in this encounter [facility] 11-14-2021 Instructions Martin Nunez DO - 11/14/2021 9:49 AM EDT Please STOP the amlodipine INCREASE the dose of Coreg to 6.25 mg TWICE A DAY (instead of once a day) Start on Eliquis 2.5 mg twice a day (blood thinner to decrease risk of clots with new onset of atrial fibrillation) This is the safest blood thinner to be on when you have kidney disease with crCl of 15 or less. documented in this encounter [facility] 11-10-2021 Miscellaneous Notes Last office visit: 08/28/21 F/u scheduled: 12/02/21 Ban Hicks Ma Patient has been identified by name and date of : Yes Pending Prescriptions Disp Refills FERROUS SULFATE 325 MG (65 MG IRON) TABLET 270 tablet 1 Sig: Take 1 tablet by mouth three times daily with meals. YAIMA: No RX INSTRUCTIONS: Patient aware RX will be sent to pharmacy. No need to notify patient. Georgia Crabtree Pss documented in this encounter [facility] 10-21-2021 Miscellaneous Notes Patient has been identified by name and date of : Yes Patient phones for refill(s): Pending Prescriptions Disp Refills AMLODIPINE 5 MG TABLET 90 tablet 3 Sig: Take 1 tablet by mouth once daily. Pt takes in the afternoon YAIMA: No Date of last office visit in primary care: 08/28/21 next apt 12/02/21 Last 2 Encounter Wt Readings: Date: Wt: 10/12/2021 105.4 kg (232 lb 6.4 oz) 08/28/2021 110.2 kg (243 lb) Previous labs/tests for medication: Blood Pressure: BUN (mg/dL) Date Value 01/26/2021 70 10/18/2019 46 Sodium (mmol/L) Date Value 01/26/2021 143 10/18/2019 142 Last 1 Encounter BP Readings: Date: BP: 10/12/2021 142/66 Please advise. Thank you. Shani Oreilly LPN documented in this encounter [facility] 10-12-2021 Note HNO ID: [id number] Author: Julieth Sellers MD Service: ? Author Type: Physician Type: Progress Notes Filed: 10/12/2021 10:16 AM Note Text: Delta Sellers MD General Surgery [address] [place] [address], [place] [address] Patient referred by: Martin Nunez [address] [place] [address] HPI: Mr. Mariano is a 76 year old male who presents today for follow-up after surgery to remove his peritoneal dialysis catheter. This was done on 09/24/2021. The catheter was placed as it was believed he was going to need dialysis but to date he has not required dialysis. The external cuff on the catheter had become externalized although the catheter itself had not been infected. He also has a AV fistula in case dialysis was needed but so far he is okay. He has a previous history of a nephrectomy and cystectomy for bladder cancer and has a neobladder. This is working well. 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 - AV FISTULA PLACEMENT HX Right 01/2021 Arteriovenous fistula transposition of basilic vein fistula. - CATARACT EXTRACTION HX - COLONOSCOPY W/BIOPSY 04/25/2017 Dr. Hammer - EGD 04/25/2017 Dr. Hammer, dx guaic positive/ anemia; neg for mass/ulcer - EXAM UNDER ANESTHESIA 2018 rigid proctoscopy and biopsies as well as a flexible sigmoidoscopy and biopsies. - PAST SURGICAL HISTORY OF 2008 TURBT, bladder and kidney stones removed - PAST SURGICAL HISTORY OF cleft lip surgery - PAST SURGICAL HISTORY OF 04/17/2020 Laparoscopic insertion of a peritoneal dialysis catheter. - PICC LINE INSERT/CONSULT 08/08/2017 power port - REMOVAL OF KIDNEY STONE 2018 percutanous - TONSILLECTOMY AND ADENOIDECTOMY HX - URETEROILEAL CONDUIT W/INTESTINE ANASTOMOSIS 04/14/2009 FAMILY HISTORY Problem Relation Age of Onset - None Mother - None Father - Cancer Father lung Social History Tobacco Use - Smoking status: Former Smoker Packs/day: 1.50 Years: 40.00 Pack years: 60.00 Types: Cigarettes Quit date: 04/13/2009 Years since quittin.5 - Smokeless tobacco: Never Used Vaping Use - Vaping Use: Never used Substance Use Topics - Alcohol use: No - Drug use: No Current Outpatient Medications Medication Sig - carvedilol (COREG) 6.25 mg tablet Take 1 tablet by mouth once daily. - furosemide (LASIX) 40 mg tablet Take 1 tablet by mouth once daily. In the morning - ferrous sulfate 325 mg (65 mg iron) tablet Take 1 tablet by mouth three times daily with meals. - calcitriol (ROCALTROL) 0.25 mcg capsule Take 1 capsule by mouth once daily. (Patient taking differently: Take 0.25 mcg by mouth once daily. 5 days per week ) - Gauze Bandage 4 X 4 bndg Apply 1 application to affected area twice daily. - potassium chloride (K-TAB) 10 mEq tablet Take 2 tablets by mouth once daily. For 30 days (Patient taking differently: Take 20 mEq by mouth three times daily. For 30 days Pt takes 20 Meq daily ) - vitamin b complex (B COMPLETE) tab Take 1 tablet by mouth once daily. - amLODIPine (NORVASC) 5 mg tablet Take 1 tablet by mouth once daily. (Patient taking differently: Take 5 mg by mouth once daily. Pt takes in the afternoon ) - diclofenac (VOLTAREN ARTHRITIS PAIN) 1 % topical gel Apply 2 g to affected area four times daily. On right knee if painful - polyethylene glycol 3350 (MIRALAX ORAL) Take 1 Tablespoonful by mouth as needed. - gentamicin 0.1% 0.1 % cream once daily. (Patient not taking: Reported on 10/12/2021 ) - montelukast (SINGULAIR) 10 mg tablet Take 1 tablet by mouth daily at bedtime. For congestion (Patient not taking: Reported on 09/23/2021 ) No current facility-administered medications for this visit. ALLERGIES Allergen Reactions - Heparin Analogues Other: See Comments HIT - Aspirin Vomiting NAUSEA - Heparin Other: See Comments - Iodinated Contrast * Other: See Comments - Lovenox [Enoxaparin] HIT REVIEW OF SYSTEMS: (more content not included)... [facility] 10-12-2021 History of Present illness Narrative Images from the original note were not included. Delta Sellers MD General Surgery [address] [place] [address], [address] [place] [address] Patient referred by: Martin Nunez [address] [facility] [address] HPI: Mr. Mariano is a 76 year old male who presents today for follow-up after surgery to remove his peritoneal dialysis catheter. This was done on 09/24/2021. The catheter was placed as it was believed he was going to need dialysis but to date he has not required dialysis. The external cuff on the catheter had become externalized although the catheter itself had not been infected. He also has a AV fistula in case dialysis was needed but so far he is okay. He has a previous history of a nephrectomy and cystectomy for bladder cancer and has a neobladder. This is working well. 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 CKD (chronic kidney disease) stage 4, GFR 15-29 ml/min (HCC) 10/31/2019 after chemo for bladder CA Colonic mass DVT (deep venous thrombosis) (HCC) 04/21/2009 after cystectomy 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 AV FISTULA PLACEMENT HX Right 01/2021 Arteriovenous fistula transposition of basilic vein fistula. CATARACT EXTRACTION HX COLONOSCOPY W/BIOPSY 04/25/2017 Dr. Hammer EGD 04/25/2017 Dr. Hammer, dx guaic positive/ anemia; neg for mass/ulcer EXAM UNDER ANESTHESIA 2018 rigid proctoscopy and biopsies as well as a flexible sigmoidoscopy and biopsies. PAST SURGICAL HISTORY OF 2008 TURBT, bladder and kidney stones removed PAST SURGICAL HISTORY OF cleft lip surgery PAST SURGICAL HISTORY OF 04/17/2020 Laparoscopic insertion of a peritoneal dialysis catheter. PICC LINE INSERT/CONSULT 08/08/2017 power port REMOVAL OF KIDNEY STONE 2018 percutanous TONSILLECTOMY AND ADENOIDECTOMY HX URETEROILEAL CONDUIT W/INTESTINE ANASTOMOSIS 04/14/2009 FAMILY HISTORY Problem Relation Age of Onset None Mother None Father Cancer Father lung Social History Tobacco Use Smoking status: Former Smoker Packs/day: 1.50 Years: 40.00 Pack years: 60.00 Types: Cigarettes Quit date: 04/13/2009 Years since quittin.5 Smokeless tobacco: Never Used Vaping Use Vaping Use: Never used Substance Use Topics Alcohol use: No Drug use: No Current Outpatient Medications Medication Sig carvedilol (COREG) 6.25 mg tablet Take 1 tablet by mouth once daily. furosemide (LASIX) 40 mg tablet Take 1 tablet by mouth once daily. In the morning ferrous sulfate 325 mg (65 mg iron) tablet Take 1 tablet by mouth three times daily with meals. calcitriol (ROCALTROL) 0.25 mcg capsule Take 1 capsule by mouth once daily. (Patient taking differently: Take 0.25 mcg by mouth once daily. 5 days per week ) Gauze Bandage 4 X 4 bndg Apply 1 application to affected area twice daily. potassium chloride (K-TAB) 10 mEq tablet Take 2 tablets by mouth once daily. For 30 days (Patient taking differently: Take 20 mEq by mouth three times daily. For 30 days Pt takes 20 Meq daily ) vitamin b complex (B COMPLETE) tab Take 1 tablet by mouth once daily. amLODIPine (NORVASC) 5 mg tablet Take 1 tablet by mouth once daily. (Patient taking differently: Take 5 mg by mouth once daily. Pt takes in the afternoon ) diclofenac (VOLTAREN ARTHRITIS PAIN) 1 % topical gel Apply 2 g to affected area four times daily. On right knee if painful polyethylene glycol 3350 (MIRALAX ORAL) Take 1 Tablespoonful by mouth as needed. gentamicin 0.1% 0.1 % cream once daily. (Patient not taking: Reported on 10/12/2021 ) montelukast (SINGULAIR) 10 mg tablet Take 1 tablet by mouth daily at bedtime. For congestion (Patient not taking: Reported on 09/23/2021 ) No current facility-administered medications for this visit. ALLERGIES Allergen Reactions Heparin Analogues Other: See Comments HIT Aspirin Vomiting NAUSEA Heparin Other: See Comments Iodinated Contrast * Other: See Comments Lovenox [Enoxaparin] HIT REVIEW OF SYSTEMS: ROS PHYSICAL EXAM: BP 142/66 Pulse 73 Ht 5' 9 (1.75m) Wt 232 lb 6.4 oz (105.4kg) SpO2 93% BMI 34.30 kg/(m^2). Last 2 Encounter Wt Readings: Date: Wt: 10/12/2021 105.4 kg (232 lb 6.4 oz) 08/28/2021 110.2 kg (243 lb) Physical Exam Vitals reviewed. Constitutional: General: He is not in acute distress. Appearance: Normal appearance. He is obese. He is not ill-appearing. Abdominal: Palpations: Abdomen is soft. Comments: Obese PD catheter site in RLQ healing well No drainage, erythema, swelling, tendernmess etc Skin: General: Skin is warm and dry. Findings: No bruising or erythema. Neurological: General: No focal deficit present. Mental Status: He is alert. Psychiatric: Mood and Affect: Mood normal. Behavior: Behavior normal. Thought Content: Thought content normal. Judgment: Judgment normal. DATA: Diagnostic tests reviewed for today's visit: Most recent labs Plan Assessment and Plan: Encounter Diagnosis ICD-10-CM 1. History of bladder cancer Z85.51 2. Peritoneal dialysis catheter dysfunction, subsequent encounter (HCC) T85.611D 3. CKD (chronic kidney disease) stage 5, GFR less than 15 ml/min (HCC) N18.5 (Z85.51) History of bladder cancer (primary encounter diagnosis) Comment: Stable Plan: Continue surveillance per urology (T85.611D) Peritoneal dialysis catheter dysfunction, subsequent encounter (HCC) Comment: Catheter removed on 09/24/2021 Doing well after surgery Plan: Okay to follow-up as needed (N18.5) CKD (chronic kidney disease) stage 5, GFR less than 15 ml/min (HCC) Comment: Stable Plan: Continue management per nephrology The primary encounter diagnosis was History of bladder cancer. Diagnoses of Peritoneal dialysis catheter dysfunction, subsequent encounter (HCC) and CKD (chronic kidney disease) stage 5, GFR less than 15 ml/min (HCC) were also pertinent to this visit. (Z85.51) History of bladder cancer (primary encounter diagnosis) (T85.611D) Peritoneal dialysis catheter dysfunction, subsequent encounter (HCC) (N18.5) CKD (chronic kidney disease) stage 5, GFR less than 15 ml/min (HCC) A total of 20 minutes was spent in direct patient contact. Greater than 50% of the direct patient contact time was spent in counseling or coordination of care. Please Note: This office note has been created using [employer], a speech recognition software program, and may contain errors including punctuation, grammar, spelling, gender, and inappropriate words or phrases that pertain to the sytem. documented in this encounter [facility] 09-24-2021 Note HNO ID: [id number] Author: Jammie Rose RN Service: Nursing Author Type: Registered Nurse Type: Nursing Progress Note Filed: 09/24/2021 12:47 PM Note Text: Dr. Louise notified of irregular heart sounds and atrial fibrillation no orders given [facility] 05-28-2021 Note HNO ID: [id number] Author: Yeyo Flynn MD Service: ? Author Type: Physician Type: Progress Notes Filed: 05/28/2021 11:50 AM Note Text: Patient is seen back today for very brief visit to make sure that his wound has remained healed and it looks great. It is well-healed with no evidence of any new problems or any evidence of any problems with the incision at all. He has a good thrill to his basilic vein transposition it dilates well with compression. Overall this will be ready to use at any point that the patient needs it. He currently is only flushing his peritoneal catheter and this was placed as a backup to his peritoneal catheter should he go on dialysis. He does not have to use this immediately and therefore my plan would be to see him back on an as-needed basis. I spent 5 minutes in the visit, with more than 50% of the total [id number] time of the visit in counseling / coordination of care. [facility] 04-27-2021 Note HNO ID: [id number] Author: Julieth Sellers MD Service: ? Author Type: Physician Type: Progress Notes Filed: 04/27/2021 11:43 AM Note Text: Delta Sellers MD General Surgery [address] [place] [address], [address] [place] [address] Patient referred by: Martin Nunez [address] [place] [address] HPI: Mr. Mariano is a 75 year old male who presents today for evaluation of his peritoneal dialysis catheter. His care providers have noticed that a entering the subcutaneous cuff is now at the skin surface. He is not having any pain or drainage from the area or redness. He is not using his peritoneal dialysis catheter as his renal function has not deteriorated to the point where he needs to start dialysis. His renal function may actually be slightly better than it was 6 months ago. His son tells me that his peritoneal catheter was able to infuse a liter of fluid and get all of it back with a little more (another 100 cc). He has also had an AV fistula placed in his right upper arm for potential hemodialysis. 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 - CATARACT EXTRACTION HX - COLONOSCOPY W/BIOPSY 04/25/2017 Dr. Hammer - EGD 04/25/2017 Dr. Hammre, dx guaic positive/ anemia; neg for mass/ulcer - EXAM UNDER ANESTHESIA 2018 rigid proctoscopy and biopsies as well as a flexible sigmoidoscopy and biopsies. - PAST SURGICAL HISTORY OF 2008 TURBT, bladder and kidney stones removed - PAST SURGICAL HISTORY OF cleft lip surgery - PAST SURGICAL HISTORY OF 04/17/2020 Laparoscopic insertion of a peritoneal dialysis catheter. - PICC LINE INSERT/CONSULT 08/08/2017 power port - REMOVAL OF KIDNEY STONE 2018 percutanous - TONSILLECTOMY AND ADENOIDECTOMY HX - URETERO-ILEAL CONDUIT 04/14/2009 FAMILY HISTORY Problem Relation Age of Onset - None Mother - None Father - Cancer Father lung Social History Tobacco Use - Smoking status: Former Smoker Packs/day: 1.50 Years: 40.00 Pack years: 60.00 Types: Cigarettes Quit date: 04/13/2009 Years since quittin.0 - Smokeless tobacco: Never Used Vaping Use - Vaping Use: Never used Substance Use Topics - Alcohol use: No - Drug use: No Current Outpatient Medications Medication Sig - furosemide (LASIX) 40 mg tablet Take 1 tablet by mouth once daily. In the morning - ferrous sulfate 325 mg (65 mg iron) tablet Take 1 tablet by mouth three times daily with meals. - calcitriol (ROCALTROL) 0.25 mcg capsule Take 1 capsule by mouth once daily. - Sodium Chloride (SALINE WOUND WASH) 0.9 % soln 10 mL twice daily. Use for wet-dry dressing to LORI - Gauze Bandage 4 X 4 bndg Apply 1 application to affected area twice daily. - potassium chloride (K-TAB) 10 mEq tablet Take 2 tablets by mouth once daily. For 30 days (Patient taking differently: Take 20 mEq by mouth once daily. For 30 days Pt takes 20 Meq daily ) - vitamin b complex (B COMPLETE) tab Take 1 tablet by mouth once daily. - amLODIPine (NORVASC) 5 mg tablet Take 1 tablet by mouth once daily. (Patient taking differently: Take 5 mg by mouth once daily. Pt takes in the afternoon ) - carvedilol (COREG) 6.25 mg tablet Take 1 tablet by mouth once daily. - diclofenac (VOLTAREN ARTHRITIS PAIN) 1 % topical gel Apply 2 g to affected area four times daily. On right knee if painful - polyethylene glycol 3350 (MIRALAX ORAL) Take 1 Tablespoonful by mouth as needed. - oxyCODONE-acetaminophen (PERCOCET) 5-325 mg tablet Take 1 tablet by mouth every 8 hours as needed for pain. (Patient not taking: Reported on 04/27/2021) - calcium acetate,phosphat bind, (PHOSLO) 667 mg capsule TAKE 2 CAPSULES BY MOUTH THREE TIMES DAILY WITH MEALS (Patient not taking: Reported on 04/27/2021) No current facility-administered medications for this visit. ALLERGIES Allergen Reactions - Heparin Analogues Other: See Comments HIT - Aspirin Vomiting NAUSEA - Heparin Other: See Comments - Iodinated Contrast * Other: Se (more content not included)... [facility] 04-02-2021 Note HNO ID: [id number] Author: Yeyo Flynn MD Service: ? Author Type: Physician Type: Progress Notes Filed: 04/02/2021 11:56 AM Note Text: This is another postop visit for a patient was having some problems with wound healing. His arm now is completely healed and is a good thrill in his basilic vein transposed fistula. There is still some induration from the healing process going on and so this is not quite ready to be used but the patient is on peritoneal dialysis and this is a backup for him at this point. Overall I am very pleased that this wound is now completely healed I like to see him back in about 2 months to make sure that all the swelling and induration has gone down and that the fistula is still working well at that point and then we will see him back on an as-needed basis. [facility] 03-05-2021 Note HNO ID: [id number] Author: Yeyo Flynn MD Service: ? Author Type: Physician Type: Progress Notes Filed: 03/05/2021 11:40 AM Note Text: Patient seen today for another postoperative visit status post his basilic vein transposition in the right upper arm. The fistula itself feels quite good with a good thrill and excellent flow by Doppler. The wound with it was quite problematic at his last visit looks great. While it is still open along the incision line most likely secondary to a suture break in his subcuticular closure and he had some significant soft tissue problems in this area after it happened at this point he looks quite good. The one portion of the wound is almost completely healed and the other portion has good granulating tissue. He continues to do wet-to-dry dressings to these. All in all I am very pleased with how this looks and while we had a problem with the wound but will delay her being able to use this the fistula itself appears to be functioning very nicely and therefore we will just take the time to let this wound heal and then follow-up with the patient in about a month to see where we are at with regards to the healing. [facility] 02-13-2021 Note HNO ID: [id number] Author: Ciarra Del Cid APRN.MICHELLE Service: ? Author Type: Nurse Practitioner Type: Progress Notes Filed: 02/13/2021 9:27 AM Note Text: Espinoza Mariano 75 year old male S/P Creation of right brachial basilic AV fistula first-stage; Right arm basilic arteriovenous fistula transposition PROCEDURE: LORI AVF; R BVT by Dr. Flynn DATE: 04/29/20; 01/29/21 SUBJECTIVE: Espinoza Mariano comes to the office today at our request, for evaluation of his LORI incision following his transposition. Our office received a call 02/04 from pt's nurse with concern for healing/infection of his incision. Photo was received to phone, and we started an antibiotic with request for photo follow-up in 1 week - pt lives in [place] AND sees Dr. Flynn at the [place] office and has difficulty getting transportation to [place]. New photo was received 02/11 PM and was reviewed with Dr. Flynn this morning. There seemed to be worsening in the appearance of the incision with more redness, so we asked that he come in for physical evaluation if possible. Fortunately, his son was able to bring him in this afternoon. Pt denies any pain in his arm, and has not been feeling unwell at all -no f/c/n/v/d. He's tolerated the Keflex without issues, but admits that there has not been much improvement with his incision, though he remains unconcerned. EXAM: Neurological Exam: Normal Right Arm Incision: Skin dehiscence noted from mid-aspect of incision through proximal aspect; Eschar noted with some yellow slough; No drainage noted; +Erythema; As pictured below * The above image(s) of the RIGHT ARM was/were taken on 02/12/21, with the verbal permission of the patient, for use in clinical documentation purposes only using an encrypted, [facility] approved device. All efforts were made to exclude or minimize identifying information and respect patient modesty and privacy. Right Arm Pulses: Brach +2, Rad +2 Right Arm: Skin is warm and dry; LORI AVF is easily palpable with +thrill AND +bruit noted throughout; Wound area skin level only at this time IMPRESSION: In consultation with Dr. Flynn as requested, will change to Cipro and start W-D dressing BID; Pt AND son instructed on W-D dressing; Requested another photo follow-up in 1 week; Pt to monitor for any s/s of worsening infection and let us know right away. PLAN: Pt will follow-up in [place] as scheduled, but will send photo next week as discussed. Encouraged to call with any questions, problems, concerns, or changes. The patient is currently taking a statin: No. Reason: N/A - dialysis pt The patient is currently taking aspirin: No. Reason: N/A - dialysis pt Ciarra Del Cid APRN.[facility] 01-29-2021 Note HNO ID: [id number] Author: Johana Valenzuela APRN.[employer]ER Service: Anesthesiology Author Type: Nurse [employer] Specialist Type: Anesthesia Procedure Notes Filed: 01/29/2021 10:58 AM Note Text: ANESTHESIOLOGY PROCEDURE NOTE Airway General Information Procedure Start Time/Medication Administration: 01/29/2021 10:44 AM Patient location during procedure: OR Timeout Performed Pre-procedure: timeout performed Consent Obtained: Yes Patient identity confirmed: arm band and patient Staffing Anesthesiologist: Benjamin Mclean MD Performed by: anesthesiologist Indications and Patient Condition Preoxygenated: yes Patient position: sniffing Difficult Mask: No Indications for airway management: anesthesia and airway protection Method: asleep Final Airway Details Final airway type: endotracheal airway Final Endotracheal Airway: ETT Cuffed: yes Successful intubation technique: direct laryngoscopy Endotracheal tube insertion site: oral Blade: Paolo (Events Core) Blade size: #4 ETT size (mm): 8.0 Measured from: lips Measurement (cm): 21 Placement verified by: chest auscultation and capnometry Cormack-Lehane Classification: grade I - full view of glottis Number of attempts at approach: 1 Airway not difficult SIGNATURE: Johana Valenzuela APRN.[employer] PATIENT NAME: Espinoza Mariano DATE: January 29, 2021 TIME: 10:56 AM CSN: [id number] [facility] 01-28-2021 Note HNO ID: [id number] Author: Kashmir Whiteside APRN.DONOR TECHNICIAN Service: Anesthesiology Author Type: Nurse Practitioner Type: Progress Notes Filed: 01/28/2021 2:55 PM Note Text: Red Dot Follow up: Discussed case with (anesthesia). Ok to proceed with planned procedure at this time. Will assess further DOS. [facility] 01-26-2021 Note HNO ID: [id number] Author: Jayne Calix APRN.DONOR TECHNICIAN Service: ? Author Type: Nurse Practitioner Type: Progress Notes Filed: 01/26/2021 3:22 PM Note Text: RED DOT: PST EKG Abnormal: SB, RBBB, LAFB; bifascicular block CC SENIOR BI ARCHITECT please review with anesthesia. Patient has the following medical conditions which may affect pollo-operative course: -Dyslipidemia- no meds currently -HTN-taking Amlodipine AND Carvedilol; BP elevated today 162/78 manually -Anemia- last HANDH in Epic 11.1 AND 34.9 on 04/10/20; will check another CBC today per surgeon's orders; pt taking Iron -CKD stage V- seeing Dr. He nephrology; has peritoneal dialysis catheter and fistula in right arm placed per Dr. 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; SpO2 at 70% at admission, ECHO showed EF 60% and stage 2 diastolic dysfunction with mildly dilated ascending aorta per PCP note, pt was discharged on Lasix; pt saw PCP 10/07/20- weight down 5-7 lbs, no fluid retention , dyspnea stable; pt saw PCP again on 01/20/21- stable; pt currently denies c/o SOB, palpitations or chest pain; pt can do 2.75 METS; pt states he would get SOB with 1 flight of stairs [facility] 10-24-2020 Note HNO ID: [id number] Author: Teresa Mancia APRN.DONOR TECHNICIAN Service: Anesthesiology Author Type: Nurse Practitioner Type: Progress Notes Filed: 10/24/2020 2:50 PM Note Text: No show for pst. Surgery scheduling notified [facility] documented as of this encounter (statuses as of 10/12/2021) [facility]07-31-2019 History of Past illness Narrative* Problem Noted Date Resolved Date Acute pain of right knee 01/17/2019 020 Neck pain on right side 01/17/2019 08/27/19 20 Thrombocytopenia 12/28/2017 05/30/2018 Fluid volume excess 12/13/2017 08/27/2019 Overview: - pt with FVO (increased BLE edema, +20 lbs weight gain) , likely related to IVFs and steroids - stopped supplemental IVFs on 12/12 - will diurese with Lasix IV 20 mg today Anemia 11/11/2017 05/30/2018 Overview: - likely multifactorial related to chemotherapy, CKD, plasmablastic lymphoma - 12/10: Hb 7.9, recieved 1 unit PRBC - 12/11: Hb 8.9 - 12/12: Hb 8.1 - 12/13: Hb 8.0, will transfuse with 1 unit PRBC today for dropping Hb - will have CBC with diff drawn twice weekly Immunosuppression 10/21/2017 05/30/2018 Overview: Patient 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 difficile colitis 10/10/2017 11/15/2017 Overview: Patient with watery diarrhea Found to have Cdiff Plan: Oral vancomycin Follow diarrhea Fluids as needed Pancytopenia 10/09/2017 12/09/2017 Overview: Patient s/p chemotherapy cycle 3 of dose adjusted R-EPOCH Given 1u pRBC that admission for chemo induced anemia Discharged 10/02 Follow up labs on 10/06 were significant for hgb 8.3 from 9.3, wbc 3.37 (ANC 3.1) from 5.26 (5) and plt 187 from 324 on 10/03. Patient given pegfilgrastim on 10/03 - wbc 0.2, hgb 7.9, plt 80 at OSH - follow trend of chemo induced pancytopenia - continue prophylaxis Acyclovir 400 mg BID; Bactrim DS MWF; Diflucan 200 mg daily (Day 6-21) Neutropenic fever 10/08/2017 10/12/2017 Overview: He was admitted following cycle 1 of chemo with neutropenic fever and bacteremia (with alpha-hemolytic streptococcus mitis/oralis likely secondary to GI translocation and completed a 14 day course of abx). WBC 0.2 (anc not reported) at OSH with temp >101. - given vancomycin and piperacillin/tazobactam at OSH Leukemoid reaction 09/30/2017 11/11/2017 Overview: - 09/30: Patient noted to have leucocytosis (WBC 11.34) on this morning labs which is likely secondary to Neulasta vs CKD vs steroid effect. He is afebrile without any signs or symptoms of infection and will continue to closely monitor. Bacteremia due to group B Streptococcus 08/25/19 18 08/24/2017 Neutropenic fever 08/20/2017 08/24/2017 Electrolyte imbalance 08/11/2017 05/30/2018 Overview: - Monitor daily labs and replete as needed Melena 08/09/2017 09/07/2017 Overview: - 08/08: Patient reporting dark brown/black stools upon admission and will get occult stool prior to restarting Xeralto to check for melena - 08/09: Occult stool positive, Dr. Sandra Cardenas notified and will arrange for colonoscopy (recent EGD was negative), order placed and scheduled for with patient to be on clear liquids at midnight on Tuesday with bowel prep starting Tuesday evening and NPO 2 hours prior to procedure on . - 08/13: No melena Encounter for chemotherapy management 08/08/2017 05/30/2018 Overview: - Cycle 6 DA-EPOCH. dose level -2 - Doxorubicin/Vincristine/Etoposide IV over 24 hr on D1-4; Cyclophosphamide IV over 1 hour on D5; Prednisone BID D1-5 - chemotherapy orders per Dr. Sandra Cardenas - consent in [facility] - monitor for toxicities - venous access: port - VTE ppx: on therapeutic AC with Xeralto - GI ppx: Protonix - ID ppx: Acylcovir, Bactrim, Fluconazole (D6-21) CINV (chemotherapy-induced nausea and vomiting) 08/08/2017 05/30/2018 Overview: - Zofran 8 mg daily - Compazine 10 mg Q6H PRN Drug-induced constipation 08/08/20172017 Overview: 2/2 Vincristine - Senna-S 2 tabs BID - Miralax daily PRN Plasma cell neoplasm 06/23/2017 08/27/2019 Malignant neoplasm of urinary bladder 05/15/2017 08/27/2019 Acute DVT (deep venous thrombosis) 02/25/2017 08/27/2019 Overview: 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 with new acute DVT on 08/11/17 in RUE around PICC line in axilla and subclavian veins and new acute DVT in RLE posterior tibial vein and 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 - Xeralto 20 mg daily HTN (hypertension) 06/23/2016 08/27/2019 Overview: - continue Carvedilol 6.25 daily - continue Amlodipine 5 mg daily - continue Lisinopril 20 daily - 12/13: Pt with increased BP, likely related to steroids Impaired fasting glucose 06/23/2016 020 CKD (chronic kidney disease) stage 3, GFR 30-59 ml/min 06/23/2016 01/16/2021 Overview: Patient with hx of CKD stage 3 - avoid nephrotoxic medications - 12/09: on admission sCr up to 1.73, eGFR 39, received NS at 50 ml/hr - 12/10: Cr 1.63, close to baseline - 12/11: Cr 1.78 - 12/12: Cr 1.35 (stopped supplemental IVFs) - 12/13: Cr improved to 1.26 Pulmonary embolism 05/19/2009 08/27/2019 Delirium 05/19/2009 05/30/2018 Acute renal failure 05/19/2009 08/27/2019 Incontinence 05/19/2009 05/30/2018 Wound 05/19/2009 05/30/2018 Ileus 04/23/2009 09/07/2017 Malnutrition 04/23/2009 03/12/2020 DVT (deep venous thrombosis) 04/23/200902/2020 Malignant neoplasm of bladder, part unspecified 11/08/2008 04/14/2009 documented as of this encounter (statuses as of 10/21/2021) [facility]07-31-2019 History of Past illness Narrative* Problem Noted Date Resolved Date Acute pain of right knee 01/17/2019 020 Neck pain on right side 01/17/2019 08/27/19 20 Thrombocytopenia 12/28/2017 05/30/2018 Fluid volume excess 12/13/2017 08/27/2019 Overview: - pt with FVO (increased BLE edema, +20 lbs weight gain) , likely related to IVFs and steroids - stopped supplemental IVFs on 12/12 - will diurese with Lasix IV 20 mg today Anemia 11/11/2017 05/30/2018 Overview: - likely multifactorial related to chemotherapy, CKD, plasmablastic lymphoma - 12/10: Hb 7.9, recieved 1 unit PRBC - 12/11: Hb 8.9 - 12/12: Hb 8.1 - 12/13: Hb 8.0, will transfuse with 1 unit PRBC today for dropping Hb - will have CBC with diff drawn twice weekly Immunosuppression 10/21/2017 05/30/2018 Overview: Patient 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 difficile colitis 10/10/2017 11/15/2017 Overview: Patient with watery diarrhea Found to have Cdiff Plan: Oral vancomycin Follow diarrhea Fluids as needed Pancytopenia 10/09/2017 12/09/2017 Overview: Patient s/p chemotherapy cycle 3 of dose adjusted R-EPOCH Given 1u pRBC that admission for chemo induced anemia Discharged 10/02 Follow up labs on 10/06 were significant for hgb 8.3 from 9.3, wbc 3.37 (ANC 3.1) from 5.26 (5) and plt 187 from 324 on 10/03. Patient given pegfilgrastim on 10/03 - wbc 0.2, hgb 7.9, plt 80 at OSH - follow trend of chemo induced pancytopenia - continue prophylaxis Acyclovir 400 mg BID; Bactrim DS MWF; Diflucan 200 mg daily (Day 6-21) Neutropenic fever 10/08/2017 10/12/2017 Overview: He was admitted following cycle 1 of chemo with neutropenic fever and bacteremia (with alpha-hemolytic streptococcus mitis/oralis likely secondary to GI translocation and completed a 14 day course of abx). WBC 0.2 (anc not reported) at OSH with temp >101. - given vancomycin and piperacillin/tazobactam at OSH Leukemoid reaction 09/30/2017 11/11/2017 Overview: - 09/30: Patient noted to have leucocytosis (WBC 11.34) on this morning labs which is likely secondary to Neulasta vs CKD vs steroid effect. He is afebrile without any signs or symptoms of infection and will continue to closely monitor. Bacteremia due to group B Streptococcus 08/25/19 18 08/24/2017 Neutropenic fever 08/20/2017 08/24/2017 Electrolyte imbalance 08/11/2017 05/30/2018 Overview: - Monitor daily labs and replete as needed Melena 08/09/2017 09/07/2017 Overview: - 08/08: Patient reporting dark brown/black stools upon admission and will get occult stool prior to restarting Xeralto to check for melena - 08/09: Occult stool positive, Dr. Sandra Cardenas notified and will arrange for colonoscopy (recent EGD was negative), order placed and scheduled for with patient to be on clear liquids at midnight on Tuesday with bowel prep starting Tuesday evening and NPO 2 hours prior to procedure on . - 08/13: No melena Encounter for chemotherapy management 08/08/2017 05/30/2018 Overview: - Cycle 6 DA-EPOCH. dose level -2 - Doxorubicin/Vincristine/Etoposide IV over 24 hr on D1-4; Cyclophosphamide IV over 1 hour on D5; Prednisone BID D1-5 - chemotherapy orders per Dr. Sandra Cardenas - consent in [facility] - monitor for toxicities - venous access: port - VTE ppx: on therapeutic AC with Xeralto - GI ppx: Protonix - ID ppx: Acylcovir, Bactrim, Fluconazole (D6-21) CINV (chemotherapy-induced nausea and vomiting) 08/08/2017 05/30/2018 Overview: - Zofran 8 mg daily - Compazine 10 mg Q6H PRN Drug-induced constipation 08/08/20172017 Overview: 2/ Vincristine - Senna-S 2 tabs BID - Miralax daily PRN Plasma cell neoplasm 06/23/2017 08/27/2019 Malignant neoplasm of urinary bladder 05/15/2017 08/27/2019 Acute DVT (deep venous thrombosis) 02/25/2017 08/27/2019 Overview: 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 with new acute DVT on 08/11/17 in RUE around PICC line in axilla and subclavian veins and new acute DVT in RLE posterior tibial vein and 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 - Xeralto 20 mg daily HTN (hypertension) 06/23/2016 08/27/2019 Overview: - continue Carvedilol 6.25 daily - continue Amlodipine 5 mg daily - continue Lisinopril 20 daily - 12/13: Pt with increased BP, likely related to steroids Impaired fasting glucose 06/23/2016 020 CKD (chronic kidney disease) stage 3, GFR 30-59 ml/min 06/23/2016 01/16/2021 Overview: Patient with hx of CKD stage 3 - avoid nephrotoxic medications - 12/09: on admission sCr up to 1.73, eGFR 39, received NS at 50 ml/hr - 12/10: Cr 1.63, close to baseline - 12/11: Cr 1.78 - 12/12: Cr 1.35 (stopped supplemental IVFs) - 12/13: Cr improved to 1.26 Pulmonary embolism 05/19/2009 08/27/2019 Delirium 05/19/2009 05/30/2018 Acute renal failure 05/19/2009 08/27/2019 Incontinence 05/19/2009 05/30/2018 Wound 05/19/2009 05/30/2018 Ileus 04/23/2009 09/07/2017 Malnutrition 04/23/2009 03/12/2020 DVT (deep venous thrombosis) 04/23/200902/2020 Malignant neoplasm of bladder, part unspecified 11/08/2008 04/14/2009 documented as of this encounter (statuses as of 11/10/2021) [facility]07-31-2019 History of Past illness Narrative* Problem Noted Date Resolved Date Acute pain of right knee 01/17/2019 020 Neck pain on right side 01/17/2019 08/27/19 20 Thrombocytopenia 12/28/2017 05/30/2018 Fluid volume excess 12/13/2017 08/27/2019 Overview: - pt with FVO (increased BLE edema, +20 lbs weight gain) , likely related to IVFs and steroids - stopped supplemental IVFs on 12/12 - will diurese with Lasix IV 20 mg today Anemia 11/11/2017 05/30/2018 Overview: - likely multifactorial related to chemotherapy, CKD, plasmablastic lymphoma - 12/10: Hb 7.9, recieved 1 unit PRBC - 12/11: Hb 8.9 - 12/12: Hb 8.1 - 12/13: Hb 8.0, will transfuse with 1 unit PRBC today for dropping Hb - will have CBC with diff drawn twice weekly Immunosuppression 10/21/2017 05/30/2018 Overview: Patient 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 difficile colitis 10/10/2017 11/15/2017 Overview: Patient with watery diarrhea Found to have Cdiff Plan: Oral vancomycin Follow diarrhea Fluids as needed Pancytopenia 10/09/2017 12/09/2017 Overview: Patient s/p chemotherapy cycle 3 of dose adjusted R-EPOCH Given 1u pRBC that admission for chemo induced anemia Discharged 10/02 Follow up labs on 10/06 were significant for hgb 8.3 from 9.3, wbc 3.37 (ANC 3.1) from 5.26 (5) and plt 187 from 324 on 10/03. Patient given pegfilgrastim on 10/03 - wbc 0.2, hgb 7.9, plt 80 at OSH - follow trend of chemo induced pancytopenia - continue prophylaxis Acyclovir 400 mg BID; Bactrim DS MWF; Diflucan 200 mg daily (Day 6-21) Neutropenic fever 10/08/2017 10/12/2017 Overview: He was admitted following cycle 1 of chemo with neutropenic fever and bacteremia (with alpha-hemolytic streptococcus mitis/oralis likely secondary to GI translocation and completed a 14 day course of abx). WBC 0.2 (anc not reported) at OSH with temp >101. - given vancomycin and piperacillin/tazobactam at OSH Leukemoid reaction 09/30/2017 11/11/2017 Overview: - 09/30: Patient noted to have leucocytosis (WBC 11.34) on this morning labs which is likely secondary to Neulasta vs CKD vs steroid effect. He is afebrile without any signs or symptoms of infection and will continue to closely monitor. Bacteremia due to group B Streptococcus 08/25/19 18 08/24/2017 Neutropenic fever 08/20/2017 08/24/2017 Electrolyte imbalance 08/11/2017 05/30/2018 Overview: - Monitor daily labs and replete as needed Melena 08/09/2017 09/07/2017 Overview: - 08/08: Patient reporting dark brown/black stools upon admission and will get occult stool prior to restarting Xeralto to check for melena - 08/09: Occult stool positive, Dr. Sandra Cardenas notified and will arrange for colonoscopy (recent EGD was negative), order placed and scheduled for with patient to be on clear liquids at midnight on Tuesday with bowel prep starting Tuesday evening and NPO 2 hours prior to procedure on . - 08/13: No melena Encounter for chemotherapy management 08/08/2017 05/30/2018 Overview: - Cycle 6 DA-EPOCH. dose level -2 - Doxorubicin/Vincristine/Etoposide IV over 24 hr on D1-4; Cyclophosphamide IV over 1 hour on D5; Prednisone BID D1-5 - chemotherapy orders per Dr. 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 with new acute DVT on 08/11/17 in RUE around PICC line in axilla and subclavian veins and new acute DVT in RLE posterior tibial vein and 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 - Xeralto 20 mg daily HTN (hypertension) 06/23/2016 08/27/2019 Overview: - continue Carvedilol 6.25 daily - continue Amlodipine 5 mg daily - continue Lisinopril 20 daily - 12/13: Pt with increased BP, likely related to steroids Impaired fasting glucose 06/23/2016 020 CKD (chronic kidney disease) stage 3, GFR 30-59 ml/min 06/23/2016 01/16/2021 Overview: Patient with hx of CKD stage 3 - avoid nephrotoxic medications - 12/09: on admission sCr up to 1.73, eGFR 39, received NS at 50 ml/hr - 12/10: Cr 1.63, close to baseline - 12/11: Cr 1.78 - 12/12: Cr 1.35 (stopped supplemental IVFs) - 12/13: Cr improved to 1.26 Pulmonary embolism 05/19/2009 08/27/2019 Delirium 05/19/2009 05/30/2018 Acute renal failure 05/19/2009 08/27/2019 Incontinence 05/19/2009 05/30/2018 Wound 05/19/2009 05/30/2018 Ileus 04/23/2009 09/07/2017 Malnutrition 04/23/2009 03/12/2020 DVT (deep venous thrombosis) 04/23/200902/2020 Malignant neoplasm of bladder, part unspecified 11/08/2008 04/14/2009 documented as of this encounter (statuses as of 11/17/2021) [facility]-2019 History of Past illness Narrative* Problem Noted Date Resolved Date Acute pain of right knee 01/17/2019 020 Neck pain on right side 01/17/2019 08/27/19 20 Thrombocytopenia 12/28/2017 05/30/2018 Fluid volume excess 12/13/2017 08/27/2019 Overview: - pt with FVO (increased BLE edema, +20 lbs weight gain) , likely related to IVFs and steroids - stopped supplemental IVFs on 12/12 - will diurese with Lasix IV 20 mg today Anemia 11/11/2017 05/30/2018 Overview: - likely multifactorial related to chemotherapy, CKD, plasmablastic lymphoma - 12/10: Hb 7.9, recieved 1 unit PRBC - 12/11: Hb 8.9 - 12/12: Hb 8.1 - 12/13: Hb 8.0, will transfuse with 1 unit PRBC today for dropping Hb - will have CBC with diff drawn twice weekly Immunosuppression 10/21/2017 05/30/2018 Overview: Patient 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 difficile colitis 10/10/2017 11/15/2017 Overview: Patient with watery diarrhea Found to have Cdiff Plan: Oral vancomycin Follow diarrhea Fluids as needed Pancytopenia 10/09/2017 12/09/2017 Overview: Patient s/p chemotherapy cycle 3 of dose adjusted R-EPOCH Given 1u pRBC that admission for chemo induced anemia Discharged 10/02 Follow up labs on 10/06 were significant for hgb 8.3 from 9.3, wbc 3.37 (ANC 3.1) from 5.26 (5) and plt 187 from 324 on 10/03. Patient given pegfilgrastim on 10/03 - wbc 0.2, hgb 7.9, plt 80 at OSH - follow trend of chemo induced pancytopenia - continue prophylaxis Acyclovir 400 mg BID; Bactrim DS MWF; Diflucan 200 mg daily (Day 6-21) Neutropenic fever 10/08/2017 10/12/2017 Overview: He was admitted following cycle 1 of chemo with neutropenic fever and bacteremia (with alpha-hemolytic streptococcus mitis/oralis likely secondary to GI translocation and completed a 14 day course of abx). WBC 0.2 (anc not reported) at OSH with temp >101. - given vancomycin and piperacillin/tazobactam at OSH Leukemoid reaction 09/30/2017 11/11/2017 Overview: - 09/30: Patient noted to have leucocytosis (WBC 11.34) on this morning labs which is likely secondary to Neulasta vs CKD vs steroid effect. He is afebrile without any signs or symptoms of infection and will continue to closely monitor. Bacteremia due to group B Streptococcus 08/25/19 18 08/24/2017 Neutropenic fever 08/20/2017 08/24/2017 Electrolyte imbalance 08/11/2017 05/30/2018 Overview: - Monitor daily labs and replete as needed Melena 08/09/2017 09/07/2017 Overview: - 08/08: Patient reporting dark brown/black stools upon admission and will get occult stool prior to restarting Xeralto to check for melena - 08/09: Occult stool positive, Dr. Sandra Cardenas notified and will arrange for colonoscopy (recent EGD was negative), order placed and scheduled for with patient to be on clear liquids at midnight on Tuesday with bowel prep starting Tuesday evening and NPO 2 hours prior to procedure on . - 08/13: No melena Encounter for chemotherapy management 08/08/2017 05/30/2018 Overview: - Cycle 6 DA-EPOCH. dose level -2 - Doxorubicin/Vincristine/Etoposide IV over 24 hr on D1-4; Cyclophosphamide IV over 1 hour on D5; Prednisone BID D1-5 - chemotherapy orders per Dr. 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 with new acute DVT on 08/11/17 in RUE around PICC line in axilla and subclavian veins and new acute DVT in RLE posterior tibial vein and 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 - Xeralto 20 mg daily HTN (hypertension) 06/23/2016 08/27/2019 Overview: - continue Carvedilol 6.25 daily - continue Amlodipine 5 mg daily - continue Lisinopril 20 daily - 12/13: Pt with increased BP, likely related to steroids Impaired fasting glucose 06/23/2016 020 CKD (chronic kidney disease) stage 3, GFR 30-59 ml/min 06/23/2016 01/16/2021 Overview: Patient with hx of CKD stage 3 - avoid nephrotoxic medications - 12/09: on admission sCr up to 1.73, eGFR 39, received NS at 50 ml/hr - 12/10: Cr 1.63, close to baseline - 12/11: Cr 1.78 - 12/12: Cr 1.35 (stopped supplemental IVFs) - 12/13: Cr improved to 1.26 Pulmonary embolism 05/19/2009 08/27/2019 Delirium 05/19/2009 05/30/2018 Acute renal failure 05/19/2009 08/27/2019 Incontinence 05/19/2009 05/30/2018 Wound 05/19/2009 05/30/2018 Ileus 04/23/2009 09/07/2017 Malnutrition 04/23/2009 03/12/2020 DVT (deep venous thrombosis) 04/23/200902/2020 Malignant neoplasm of bladder, part unspecified 11/08/2008 04/14/2009 documented as of this encounter (statuses as of 12/11/2021) [facility]2019 History of Past illness Narrative* Problem Noted Date Resolved Date Acute pain of right knee 01/17/2019 020 Neck pain on right side 01/17/2019 08/27/19 20 Thrombocytopenia 12/28/2017 05/30/2018 Fluid volume excess 12/13/2017 08/27/2019 Overview: - pt with FVO (increased BLE edema, +20 lbs weight gain) , likely related to IVFs and steroids - stopped supplemental IVFs on 12/12 - will diurese with Lasix IV 20 mg today Anemia 11/11/2017 05/30/2018 Overview: - likely multifactorial related to chemotherapy, CKD, plasmablastic lymphoma - 12/10: Hb 7.9, recieved 1 unit PRBC - 12/11: Hb 8.9 - 12/12: Hb 8.1 - 12/13: Hb 8.0, will transfuse with 1 unit PRBC today for dropping Hb - will have CBC with diff drawn twice weekly Immunosuppression 10/21/2017 05/30/2018 Overview: Patient 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 difficile colitis 10/10/2017 11/15/2017 Overview: Patient with watery diarrhea Found to have Cdiff Plan: Oral vancomycin Follow diarrhea Fluids as needed Pancytopenia 10/09/2017 12/09/2017 Overview: Patient s/p chemotherapy cycle 3 of dose adjusted R-EPOCH Given 1u pRBC that admission for chemo induced anemia Discharged 10/02 Follow up labs on 10/06 were significant for hgb 8.3 from 9.3, wbc 3.37 (ANC 3.1) from 5.26 (5) and plt 187 from 324 on 10/03. Patient given pegfilgrastim on 10/03 - wbc 0.2, hgb 7.9, plt 80 at OSH - follow trend of chemo induced pancytopenia - continue prophylaxis Acyclovir 400 mg BID; Bactrim DS MWF; Diflucan 200 mg daily (Day 6-21) Neutropenic fever 10/08/2017 10/12/2017 Overview: He was admitted following cycle 1 of chemo with neutropenic fever and bacteremia (with alpha-hemolytic streptococcus mitis/oralis likely secondary to GI translocation and completed a 14 day course of abx). WBC 0.2 (anc not reported) at OSH with temp >101. - given vancomycin and piperacillin/tazobactam at OSH Leukemoid reaction 09/30/2017 11/11/2017 Overview: - 09/30: Patient noted to have leucocytosis (WBC 11.34) on this morning labs which is likely secondary to Neulasta vs CKD vs steroid effect. He is afebrile without any signs or symptoms of infection and will continue to closely monitor. Bacteremia due to group B Streptococcus 08/25/19 18 08/24/2017 Neutropenic fever 08/20/2017 08/24/2017 Electrolyte imbalance 08/11/2017 05/30/2018 Overview: - Monitor daily labs and replete as needed Melena 08/09/2017 09/07/2017 Overview: - 08/08: Patient reporting dark brown/black stools upon admission and will get occult stool prior to restarting Xeralto to check for melena - 08/09: Occult stool positive, Dr. Sandra Cardenas notified and will arrange for colonoscopy (recent EGD was negative), order placed and scheduled for with patient to be on clear liquids at midnight on Tuesday with bowel prep starting Tuesday evening and NPO 2 hours prior to procedure on . - 08/13: No melena Encounter for chemotherapy management 08/08/2017 05/30/2018 Overview: - Cycle 6 DA-EPOCH. dose level -2 - Doxorubicin/Vincristine/Etoposide IV over 24 hr on D1-4; Cyclophosphamide IV over 1 hour on D5; Prednisone BID D1-5 - chemotherapy orders per Dr. Sanrda Cardenas - consent in [facility] - monitor for toxicities - venous access: port - VTE ppx: on therapeutic AC with Xeralto - GI ppx: Protonix - ID ppx: Acylcovir, Bactrim, Fluconazole (D6-21) CINV (chemotherapy-induced nausea and vomiting) 08/08/2017 05/30/2018 Overview: - Zofran 8 mg daily - Compazine 10 mg Q6H PRN Drug-induced constipation 08/08/20172017 Overview: 2/2 Vincristine - Senna-S 2 tabs BID - Miralax daily PRN Plasma cell neoplasm 06/23/2017 08/27/2019 Malignant neoplasm of urinary bladder 05/15/2017 08/27/2019 Acute DVT (deep venous thrombosis) 02/25/2017 08/27/2019 Overview: 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 with new acute DVT on 08/11/17 in RUE around PICC line in axilla and subclavian veins and new acute DVT in RLE posterior tibial vein and 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 - Xeralto 20 mg daily HTN (hypertension) 06/23/2016 08/27/2019 Overview: - continue Carvedilol 6.25 daily - continue Amlodipine 5 mg daily - continue Lisinopril 20 daily - 12/13: Pt with increased BP, likely related to steroids Impaired fasting glucose 06/23/2016 020 CKD (chronic kidney disease) stage 3, GFR 30-59 ml/min 06/23/2016 01/16/2021 Overview: Patient with hx of CKD stage 3 - avoid nephrotoxic medications - 12/09: on admission sCr up to 1.73, eGFR 39, received NS at 50 ml/hr - 12/10: Cr 1.63, close to baseline - 12/11: Cr 1.78 - 12/12: Cr 1.35 (stopped supplemental IVFs) - 12/13: Cr improved to 1.26 Pulmonary embolism 05/19/2009 08/27/2019 Delirium 05/19/2009 05/30/2018 Acute renal failure 05/19/2009 08/27/2019 Incontinence 05/19/2009 05/30/2018 Wound 05/19/2009 05/30/2018 Ileus 04/23/2009 09/07/2017 Malnutrition 04/23/2009 03/12/2020 DVT (deep venous thrombosis) 04/23/200902/2020 Malignant neoplasm of bladder, part unspecified 11/08/2008 04/14/2009 documented as of this encounter (statuses as of 01/01/2022) [facility]2019 History of Past illness Narrative* Problem Noted Date Resolved Date Acute pain of right knee 01/17/2019 020 Neck pain on right side 01/17/2019 08/27/19 20 Thrombocytopenia 12/28/2017 05/30/2018 Fluid volume excess 12/13/2017 08/27/2019 Overview: - pt with FVO (increased BLE edema, +20 lbs weight gain) , likely related to IVFs and steroids - stopped supplemental IVFs on 12/12 - will diurese with Lasix IV 20 mg today Anemia 11/11/2017 05/30/2018 Overview: - likely multifactorial related to chemotherapy, CKD, plasmablastic lymphoma - 12/10: Hb 7.9, recieved 1 unit PRBC - 12/11: Hb 8.9 - 12/12: Hb 8.1 - 12/13: Hb 8.0, will transfuse with 1 unit PRBC today for dropping Hb - will have CBC with diff drawn twice weekly Immunosuppression 10/21/2017 05/30/2018 Overview: Patient 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 difficile colitis 10/10/2017 11/15/2017 Overview: Patient with watery diarrhea Found to have Cdiff Plan: Oral vancomycin Follow diarrhea Fluids as needed Pancytopenia 10/09/2017 12/09/2017 Overview: Patient s/p chemotherapy cycle 3 of dose adjusted R-EPOCH Given 1u pRBC that admission for chemo induced anemia Discharged 10/02 Follow up labs on 10/06 were significant for hgb 8.3 from 9.3, wbc 3.37 (ANC 3.1) from 5.26 (5) and plt 187 from 324 on 10/03. Patient given pegfilgrastim on 10/03 - wbc 0.2, hgb 7.9, plt 80 at OSH - follow trend of chemo induced pancytopenia - continue prophylaxis Acyclovir 400 mg BID; Bactrim DS MWF; Diflucan 200 mg daily (Day 6-21) Neutropenic fever 10/08/2017 10/12/2017 Overview: He was admitted following cycle 1 of chemo with neutropenic fever and bacteremia (with alpha-hemolytic streptococcus mitis/oralis likely secondary to GI translocation and completed a 14 day course of abx). WBC 0.2 (anc not reported) at OSH with temp >101. - given vancomycin and piperacillin/tazobactam at OSH Leukemoid reaction 09/30/2017 11/11/2017 Overview: - 09/30: Patient noted to have leucocytosis (WBC 11.34) on this morning labs which is likely secondary to Neulasta vs CKD vs steroid effect. He is afebrile without any signs or symptoms of infection and will continue to closely monitor. Bacteremia due to group B Streptococcus 08/25/19 18 08/24/2017 Neutropenic fever 08/20/2017 08/24/2017 Electrolyte imbalance 08/11/2017 05/30/2018 Overview: - Monitor daily labs and replete as needed Melena 08/09/2017 09/07/2017 Overview: - 08/08: Patient reporting dark brown/black stools upon admission and will get occult stool prior to restarting Xeralto to check for melena - 08/09: Occult stool positive, Dr. Sandra Cardenas notified and will arrange for colonoscopy (recent EGD was negative), order placed and scheduled for with patient to be on clear liquids at midnight on Tuesday with bowel prep starting Tuesday evening and NPO 2 hours prior to procedure on . - 08/13: No melena Encounter for chemotherapy management 08/08/2017 05/30/2018 Overview: - Cycle 6 DA-EPOCH. dose level -2 - Doxorubicin/Vincristine/Etoposide IV over 24 hr on D1-4; Cyclophosphamide IV over 1 hour on D5; Prednisone BID D1-5 - chemotherapy orders per Dr. Sandra Cardenas - consent in [facility] - monitor for toxicities - venous access: port - VTE ppx: on therapeutic AC with Xeralto - GI ppx: Protonix - ID ppx: Acylcovir, Bactrim, Fluconazole (D6-21) CINV (chemotherapy-induced nausea and vomiting) 08/08/2017 05/30/2018 Overview: - Zofran 8 mg daily - Compazine 10 mg Q6H PRN Drug-induced constipation 08/08/20172017 Overview: 2/ Vincristine - Senna-S 2 tabs BID - Miralax daily PRN Plasma cell neoplasm 06/23/2017 08/27/2019 Malignant neoplasm of urinary bladder 05/15/2017 08/27/2019 Acute DVT (deep venous thrombosis) 02/25/2017 08/27/2019 Overview: 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 with new acute DVT on 08/11/17 in RUE around PICC line in axilla and subclavian veins and new acute DVT in RLE posterior tibial vein and 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 - Xeralto 20 mg daily HTN (hypertension) 06/23/2016 08/27/2019 Overview: - continue Carvedilol 6.25 daily - continue Amlodipine 5 mg daily - continue Lisinopril 20 daily - 12/13: Pt with increased BP, likely related to steroids Impaired fasting glucose 06/23/2016 020 CKD (chronic kidney disease) stage 3, GFR 30-59 ml/min 06/23/2016 01/16/2021 Overview: Patient with hx of CKD stage 3 - avoid nephrotoxic medications - 12/09: on admission sCr up to 1.73, eGFR 39, received NS at 50 ml/hr - 12/10: Cr 1.63, close to baseline - 12/11: Cr 1.78 - 12/12: Cr 1.35 (stopped supplemental IVFs) - 12/13: Cr improved to 1.26 Pulmonary embolism 05/19/2009 08/27/2019 Delirium 05/19/2009 05/30/2018 Acute renal failure 05/19/2009 08/27/2019 Incontinence 05/19/2009 05/30/2018 Wound 05/19/2009 05/30/2018 Ileus 04/23/2009 09/07/2017 Malnutrition 04/23/2009 03/12/2020 DVT (deep venous thrombosis) 04/23/200902/2020 Malignant neoplasm of bladder, part unspecified 11/08/2008 04/14/2009 documented as of this encounter (statuses as of 01/01/2022) [facility]2019 History of Past illness Narrative* Problem Noted Date Resolved Date Acute pain of right knee 01/17/2019 020 Neck pain on right side 01/17/2019 08/27/19 20 Thrombocytopenia 12/28/2017 05/30/2018 Fluid volume excess 12/13/2017 08/27/2019 Overview: - pt with FVO (increased BLE edema, +20 lbs weight gain) , likely related to IVFs and steroids - stopped supplemental IVFs on 12/12 - will diurese with Lasix IV 20 mg today Anemia 11/11/2017 05/30/2018 Overview: - likely multifactorial related to chemotherapy, CKD, plasmablastic lymphoma - 12/10: Hb 7.9, recieved 1 unit PRBC - 12/11: Hb 8.9 - 12/12: Hb 8.1 - 12/13: Hb 8.0, will transfuse with 1 unit PRBC today for dropping Hb - will have CBC with diff drawn twice weekly Immunosuppression 10/21/2017 05/30/2018 Overview: Patient 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 difficile colitis 10/10/2017 11/15/2017 Overview: Patient with watery diarrhea Found to have Cdiff Plan: Oral vancomycin Follow diarrhea Fluids as needed Pancytopenia 10/09/2017 12/09/2017 Overview: Patient s/p chemotherapy cycle 3 of dose adjusted R-EPOCH Given 1u pRBC that admission for chemo induced anemia Discharged 10/02 Follow up labs on 10/06 were significant for hgb 8.3 from 9.3, wbc 3.37 (ANC 3.1) from 5.26 (5) and plt 187 from 324 on 10/03. Patient given pegfilgrastim on 10/03 - wbc 0.2, hgb 7.9, plt 80 at OSH - follow trend of chemo induced pancytopenia - continue prophylaxis Acyclovir 400 mg BID; Bactrim DS MWF; Diflucan 200 mg daily (Day 6-21) Neutropenic fever 10/08/2017 10/12/2017 Overview: He was admitted following cycle 1 of chemo with neutropenic fever and bacteremia (with alpha-hemolytic streptococcus mitis/oralis likely secondary to GI translocation and completed a 14 day course of abx). WBC 0.2 (anc not reported) at OSH with temp >101. - given vancomycin and piperacillin/tazobactam at OSH Leukemoid reaction 09/30/2017 11/11/2017 Overview: - 09/30: Patient noted to have leucocytosis (WBC 11.34) on this morning labs which is likely secondary to Neulasta vs CKD vs steroid effect. He is afebrile without any signs or symptoms of infection and will continue to closely monitor. Bacteremia due to group B Streptococcus 08/25/19 18 08/24/2017 Neutropenic fever 08/20/2017 08/24/2017 Electrolyte imbalance 08/11/2017 05/30/2018 Overview: - Monitor daily labs and replete as needed Melena 08/09/2017 09/07/2017 Overview: - 08/08: Patient reporting dark brown/black stools upon admission and will get occult stool prior to restarting Xeralto to check for melena - 08/09: Occult stool positive, Dr. Sandra Cardenas notified and will arrange for colonoscopy (recent EGD was negative), order placed and scheduled for with patient to be on clear liquids at midnight on Tuesday with bowel prep starting Tuesday evening and NPO 2 hours prior to procedure on . - 08/13: No melena Encounter for chemotherapy management 08/08/2017 05/30/2018 Overview: - Cycle 6 DA-EPOCH. dose level -2 - Doxorubicin/Vincristine/Etoposide IV over 24 hr on D1-4; Cyclophosphamide IV over 1 hour on D5; Prednisone BID D1-5 - chemotherapy orders per Dr. Sandra Cardenas - consent in [facility] - monitor for toxicities - venous access: port - VTE ppx: on therapeutic AC with Xeralto - GI ppx: Protonix - ID ppx: Acylcovir, Bactrim, Fluconazole (D6-21) CINV (chemotherapy-induced nausea and vomiting) 08/08/2017 05/30/2018 Overview: - Zofran 8 mg daily - Compazine 10 mg Q6H PRN Drug-induced constipation 08/08/20172017 Overview: 2/ Vincristine - Senna-S 2 tabs BID - Miralax daily PRN Plasma cell neoplasm 06/23/2017 08/27/2019 Malignant neoplasm of urinary bladder 05/15/2017 08/27/2019 Acute DVT (deep venous thrombosis) 02/25/2017 08/27/2019 Overview: 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 with new acute DVT on 08/11/17 in RUE around PICC line in axilla and subclavian veins and new acute DVT in RLE posterior tibial vein and 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 - Xeralto 20 mg daily HTN (hypertension) 06/23/2016 08/27/2019 Overview: - continue Carvedilol 6.25 daily - continue Amlodipine 5 mg daily - continue Lisinopril 20 daily - 12/13: Pt with increased BP, likely related to steroids Impaired fasting glucose 06/23/2016 020 CKD (chronic kidney disease) stage 3, GFR 30-59 ml/min 06/23/2016 01/16/2021 Overview: Patient with hx of CKD stage 3 - avoid nephrotoxic medications - 12/09: on admission sCr up to 1.73, eGFR 39, received NS at 50 ml/hr - 12/10: Cr 1.63, close to baseline - 6/24: Cr 1.78 - 12/12: Cr 1.35 (stopped supplemental IVFs) - 12/13: Cr improved to 1.26 Pulmonary embolism 05/19/2009 08/27/2019 Delirium 05/19/2009 05/30/2018 Acute renal failure 05/19/2009 08/27/2019 Incontinence 05/19/2009 05/30/2018 Wound 05/19/2009 05/30/2018 Ileus 04/23/2009 09/07/2017 Malnutrition 04/23/2009 03/12/2020 DVT (deep venous thrombosis) 04/23/200902/2020 Malignant neoplasm of bladder, part unspecified 11/08/2008 04/14/2009 documented as of this encounter (statuses as of 01/08/2022) [facility]07-31-2019 History of Past illness Narrative* Problem Noted Date Resolved Date Acute pain of right knee 01/17/2019 020 Neck pain on right side 01/17/2019 08/27/19 20 Thrombocytopenia 12/28/2017 05/30/2018 Fluid volume excess 12/13/2017 08/27/2019 Overview: - pt with FVO (increased BLE edema, +20 lbs weight gain) , likely related to IVFs and steroids - stopped supplemental IVFs on 12/12 - will diurese with Lasix IV 20 mg today Anemia 11/11/2017 05/30/2018 Overview: - likely multifactorial related to chemotherapy, CKD, plasmablastic lymphoma - 12/10: Hb 7.9, recieved 1 unit PRBC - 12/11: Hb 8.9 - 12/12: Hb 8.1 - 12/13: Hb 8.0, will transfuse with 1 unit PRBC today for dropping Hb - will have CBC with diff drawn twice weekly Immunosuppression 10/21/2017 05/30/2018 Overview: Patient 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 difficile colitis 10/10/2017 11/15/2017 Overview: Patient with watery diarrhea Found to have Cdiff Plan: Oral vancomycin Follow diarrhea Fluids as needed Pancytopenia 10/09/2017 12/09/2017 Overview: Patient s/p chemotherapy cycle 3 of dose adjusted R-EPOCH Given 1u pRBC that admission for chemo induced anemia Discharged 10/02 Follow up labs on 10/06 were significant for hgb 8.3 from 9.3, wbc 3.37 (ANC 3.1) from 5.26 (5) and plt 187 from 324 on 10/03. Patient given pegfilgrastim on 10/03 - wbc 0.2, hgb 7.9, plt 80 at OSH - follow trend of chemo induced pancytopenia - continue prophylaxis Acyclovir 400 mg BID; Bactrim DS MWF; Diflucan 200 mg daily (Day 6-21) Neutropenic fever 10/08/2017 10/12/2017 Overview: He was admitted following cycle 1 of chemo with neutropenic fever and bacteremia (with alpha-hemolytic streptococcus mitis/oralis likely secondary to GI translocation and completed a 14 day course of abx). WBC 0.2 (anc not reported) at OSH with temp >101. - given vancomycin and piperacillin/tazobactam at OSH Leukemoid reaction 09/30/2017 11/11/2017 Overview: - 09/30: Patient noted to have leucocytosis (WBC 11.34) on this morning labs which is likely secondary to Neulasta vs CKD vs steroid effect. He is afebrile without any signs or symptoms of infection and will continue to closely monitor. Bacteremia due to group B Streptococcus 08/25/19 18 08/24/2017 Neutropenic fever 08/20/2017 08/24/2017 Electrolyte imbalance 08/11/2017 05/30/2018 Overview: - Monitor daily labs and replete as needed Melena 08/09/2017 09/07/2017 Overview: - 08/08: Patient reporting dark brown/black stools upon admission and will get occult stool prior to restarting Xeralto to check for melena - 08/09: Occult stool positive, Dr. Sandra Cardenas notified and will arrange for colonoscopy (recent EGD was negative), order placed and scheduled for with patient to be on clear liquids at midnight on Tuesday with bowel prep starting Tuesday evening and NPO 2 hours prior to procedure on . - 08/13: No melena Encounter for chemotherapy management 08/08/2017 05/30/2018 Overview: - Cycle 6 DA-EPOCH. dose level -2 - Doxorubicin/Vincristine/Etoposide IV over 24 hr on D1-4; Cyclophosphamide IV over 1 hour on D5; Prednisone BID D1-5 - chemotherapy orders per Dr. Sandra Cardenas - consent in [facility] - monitor for toxicities - venous access: port - VTE ppx: on therapeutic AC with Xeralto - GI ppx: Protonix - ID ppx: Acylcovir, Bactrim, Fluconazole (D6-21) CINV (chemotherapy-induced nausea and vomiting) 08/08/2017 05/30/2018 Overview: - Zofran 8 mg daily - Compazine 10 mg Q6H PRN Drug-induced constipation 08/08/20172017 Overview: 2/2 Vincristine - Senna-S 2 tabs BID - Miralax daily PRN Plasma cell neoplasm 06/23/2017 08/27/2019 Malignant neoplasm of urinary bladder 05/15/2017 08/27/2019 Acute DVT (deep venous thrombosis) 02/25/2017 08/27/2019 Overview: 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 with new acute DVT on 08/11/17 in RUE around PICC line in axilla and subclavian veins and new acute DVT in RLE posterior tibial vein and 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 - Xeralto 20 mg daily HTN (hypertension) 06/23/2016 08/27/2019 Overview: - continue Carvedilol 6.25 daily - continue Amlodipine 5 mg daily - continue Lisinopril 20 daily - 12/13: Pt with increased BP, likely related to steroids Impaired fasting glucose 06/23/2016 020 CKD (chronic kidney disease) stage 3, GFR 30-59 ml/min 06/23/2016 01/16/2021 Overview: Patient with hx of CKD stage 3 - avoid nephrotoxic medications - 12/09: on admission sCr up to 1.73, eGFR 39, received NS at 50 ml/hr - 12/10: Cr 1.63, close to baseline - 12/11: Cr 1.78 - 12/12: Cr 1.35 (stopped supplemental IVFs) - 12/13: Cr improved to 1.26 Pulmonary embolism 05/19/2009 08/27/2019 Delirium 05/19/2009 05/30/2018 Acute renal failure 05/19/2009 08/27/2019 Incontinence 05/19/2009 05/30/2018 Wound 05/19/2009 05/30/2018 Ileus 04/23/2009 09/07/2017 Malnutrition 04/23/2009 03/12/2020 DVT (deep venous thrombosis) 04/23/200902/2020 Malignant neoplasm of bladder, part unspecified 11/08/2008 04/14/2009 documented as of this encounter (statuses as of 05/06/2022) [facility]07-31-2019 History of Past illness Narrative* Problem Noted Date Resolved Date Acute pain of right knee 01/17/2019 020 Neck pain on right side 01/17/2019 08/27/19 20 Thrombocytopenia 12/28/2017 05/30/2018 Fluid volume excess 12/13/2017 08/27/2019 Overview: - pt with FVO (increased BLE edema, +20 lbs weight gain) , likely related to IVFs and steroids - stopped supplemental IVFs on 12/12 - will diurese with Lasix IV 20 mg today Anemia 11/11/2017 05/30/2018 Overview: - likely multifactorial related to chemotherapy, CKD, plasmablastic lymphoma - 12/10: Hb 7.9, recieved 1 unit PRBC - 12/11: Hb 8.9 - 12/12: Hb 8.1 - 12/13: Hb 8.0, will transfuse with 1 unit PRBC today for dropping Hb - will have CBC with diff drawn twice weekly Immunosuppression 10/21/2017 05/30/2018 Overview: Patient 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 difficile colitis 10/10/2017 11/15/2017 Overview: Patient with watery diarrhea Found to have Cdiff Plan: Oral vancomycin Follow diarrhea Fluids as needed Pancytopenia 10/09/2017 12/09/2017 Overview: Patient s/p chemotherapy cycle 3 of dose adjusted R-EPOCH Given 1u pRBC that admission for chemo induced anemia Discharged 10/02 Follow up labs on 10/06 were significant for hgb 8.3 from 9.3, wbc 3.37 (ANC 3.1) from 5.26 (5) and plt 187 from 324 on 10/03. Patient given pegfilgrastim on 10/03 - wbc 0.2, hgb 7.9, plt 80 at OSH - follow trend of chemo induced pancytopenia - continue prophylaxis Acyclovir 400 mg BID; Bactrim DS MWF; Diflucan 200 mg daily (Day 6-21) Neutropenic fever 10/08/2017 10/12/2017 Overview: He was admitted following cycle 1 of chemo with neutropenic fever and bacteremia (with alpha-hemolytic streptococcus mitis/oralis likely secondary to GI translocation and completed a 14 day course of abx). WBC 0.2 (anc not reported) at OSH with temp >101. - given vancomycin and piperacillin/tazobactam at OSH Leukemoid reaction 09/30/2017 11/11/2017 Overview: - 09/30: Patient noted to have leucocytosis (WBC 11.34) on this morning labs which is likely secondary to Neulasta vs CKD vs steroid effect. He is afebrile without any signs or symptoms of infection and will continue to closely monitor. Bacteremia due to group B Streptococcus 08/25/19 18 08/24/2017 Neutropenic fever 08/20/2017 08/24/2017 Electrolyte imbalance 08/11/2017 05/30/2018 Overview: - Monitor daily labs and replete as needed Melena 08/09/2017 09/07/2017 Overview: - 08/08: Patient reporting dark brown/black stools upon admission and will get occult stool prior to restarting Xeralto to check for melena - 08/09: Occult stool positive, Dr. Sandra Cardenas notified and will arrange for colonoscopy (recent EGD was negative), order placed and scheduled for with patient to be on clear liquids at midnight on Tuesday with bowel prep starting Tuesday evening and NPO 2 hours prior to procedure on . - 08/13: No melena Encounter for chemotherapy management 08/08/2017 05/30/2018 Overview: - Cycle 6 DA-EPOCH. dose level -2 - Doxorubicin/Vincristine/Etoposide IV over 24 hr on D1-4; Cyclophosphamide IV over 1 hour on D5; Prednisone BID D1-5 - chemotherapy orders per Dr. 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 with new acute DVT on 08/11/17 in RUE around PICC line in axilla and subclavian veins and new acute DVT in RLE posterior tibial vein and 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 - Xeralto 20 mg daily HTN (hypertension) 06/23/2016 08/27/2019 Overview: - continue Carvedilol 6.25 daily - continue Amlodipine 5 mg daily - continue Lisinopril 20 daily - 12/13: Pt with increased BP, likely related to steroids Impaired fasting glucose 06/23/2016 020 CKD (chronic kidney disease) stage 3, GFR 30-59 ml/min 06/23/2016 01/16/2021 Overview: Patient with hx of CKD stage 3 - avoid nephrotoxic medications - 12/09: on admission sCr up to 1.73, eGFR 39, received NS at 50 ml/hr - 12/10: Cr 1.63, close to baseline - 12/11: Cr 1.78 - 12/12: Cr 1.35 (stopped supplemental IVFs) - 12/13: Cr improved to 1.26 Pulmonary embolism 05/19/2009 08/27/2019 Delirium 05/19/2009 05/30/2018 Acute renal failure 05/19/2009 08/27/2019 Incontinence 05/19/2009 05/30/2018 Wound 05/19/2009 05/30/2018 Ileus 04/23/2009 09/07/2017 Malnutrition 04/23/2009 03/12/2020 DVT (deep venous thrombosis) 04/23/200902/2020 Malignant neoplasm of bladder, part unspecified 11/08/2008 04/14/2009 documented as of this encounter (statuses as of 05/12/2022) [facility]-2019 History of Past illness Narrative* Problem Noted Date Resolved Date Acute pain of right knee 01/17/2019 020 Neck pain on right side 01/17/2019 08/27/19 20 Thrombocytopenia 12/28/2017 05/30/2018 Fluid volume excess 12/13/2017 08/27/2019 Overview: - pt with FVO (increased BLE edema, +20 lbs weight gain) , likely related to IVFs and steroids - stopped supplemental IVFs on 12/12 - will diurese with Lasix IV 20 mg today Anemia 11/11/2017 05/30/2018 Overview: - likely multifactorial related to chemotherapy, CKD, plasmablastic lymphoma - 12/10: Hb 7.9, recieved 1 unit PRBC - 12/11: Hb 8.9 - 12/12: Hb 8.1 - 12/13: Hb 8.0, will transfuse with 1 unit PRBC today for dropping Hb - will have CBC with diff drawn twice weekly Immunosuppression 10/21/2017 05/30/2018 Overview: Patient 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 difficile colitis 10/10/2017 11/15/2017 Overview: Patient with watery diarrhea Found to have Cdiff Plan: Oral vancomycin Follow diarrhea Fluids as needed Pancytopenia 10/09/2017 12/09/2017 Overview: Patient s/p chemotherapy cycle 3 of dose adjusted R-EPOCH Given 1u pRBC that admission for chemo induced anemia Discharged 10/02 Follow up labs on 10/06 were significant for hgb 8.3 from 9.3, wbc 3.37 (ANC 3.1) from 5.26 (5) and plt 187 from 324 on 10/03. Patient given pegfilgrastim on 10/03 - wbc 0.2, hgb 7.9, plt 80 at OSH - follow trend of chemo induced pancytopenia - continue prophylaxis Acyclovir 400 mg BID; Bactrim DS MWF; Diflucan 200 mg daily (Day 6-21) Neutropenic fever 10/08/2017 10/12/2017 Overview: He was admitted following cycle 1 of chemo with neutropenic fever and bacteremia (with alpha-hemolytic streptococcus mitis/oralis likely secondary to GI translocation and completed a 14 day course of abx). WBC 0.2 (anc not reported) at OSH with temp >101. - given vancomycin and piperacillin/tazobactam at OSH Leukemoid reaction 09/30/2017 11/11/2017 Overview: - 09/30: Patient noted to have leucocytosis (WBC 11.34) on this morning labs which is likely secondary to Neulasta vs CKD vs steroid effect. He is afebrile without any signs or symptoms of infection and will continue to closely monitor. Neutropenic fever 08/20/2017 08/24/2017 Electrolyte imbalance 08/11/2017 05/30/2018 Overview: - Monitor daily labs and replete as needed Melena 08/09/2017 09/07/2017 Overview: - 08/08: Patient reporting dark brown/black stools upon admission and will get occult stool prior to restarting Xeralto to check for melena - 08/09: Occult stool positive, Dr. Sandra Cardenas notified and will arrange for colonoscopy (recent EGD was negative), order placed and scheduled for with patient to be on clear liquids at midnight on Tuesday with bowel prep starting Tuesday evening and NPO 2 hours prior to procedure on . - 08/13: No melena Encounter for chemotherapy management 08/08/2017 05/30/2018 Overview: - Cycle 6 DA-EPOCH. dose level -2 - Doxorubicin/Vincristine/Etoposide IV over 24 hr on D1-4; Cyclophosphamide IV over 1 hour on D5; Prednisone BID D1-5 - chemotherapy orders per Dr. 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 with new acute DVT on 08/11/17 in RUE around PICC line in axilla and subclavian veins and new acute DVT in RLE posterior tibial vein and 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 - Xeralto 20 mg daily HTN (hypertension) 06/23/2016 08/27/2019 Overview: - continue Carvedilol 6.25 daily - continue Amlodipine 5 mg daily - continue Lisinopril 20 daily - 12/13: Pt with increased BP, likely related to steroids Impaired fasting glucose 06/23/2016 020 CKD (chronic kidney disease) stage 3, GFR 30-59 ml/min 06/23/2016 01/16/2021 Overview: Patient with hx of CKD stage 3 - avoid nephrotoxic medications - 12/09: on admission sCr up to 1.73, eGFR 39, received NS at 50 ml/hr - 12/10: Cr 1.63, close to baseline - 12/11: Cr 1.78 - 12/12: Cr 1.35 (stopped supplemental IVFs) - 12/13: Cr improved to 1.26 Pulmonary embolism 05/19/2009 08/27/2019 Delirium 05/19/2009 05/30/2018 Acute renal failure 05/19/2009 08/27/2019 Incontinence 05/19/2009 05/30/2018 Wound 05/19/2009 05/30/2018 Ileus 04/23/2009 09/07/2017 Malnutrition 04/23/2009 03/12/2020 DVT (deep venous thrombosis) 04/23/200902/2020 Malignant neoplasm of bladder, part unspecified 11/08/2008 04/14/2009 documented as of this encounter (statuses as of 05/17/2022) [facility]2019 History of Past illness Narrative* Problem Noted Date Resolved Date Acute pain of right knee 01/17/2019 020 Neck pain on right side 01/17/2019 08/27/19 20 Thrombocytopenia 12/28/2017 05/30/2018 Fluid volume excess 12/13/2017 08/27/2019 Overview: - pt with FVO (increased BLE edema, +20 lbs weight gain) , likely related to IVFs and steroids - stopped supplemental IVFs on 12/12 - will diurese with Lasix IV 20 mg today Anemia 11/11/2017 05/30/2018 Overview: - likely multifactorial related to chemotherapy, CKD, plasmablastic lymphoma - 12/10: Hb 7.9, recieved 1 unit PRBC - 12/11: Hb 8.9 - 12/12: Hb 8.1 - 12/13: Hb 8.0, will transfuse with 1 unit PRBC today for dropping Hb - will have CBC with diff drawn twice weekly Immunosuppression 10/21/2017 05/30/2018 Overview: Patient 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 difficile colitis 10/10/2017 11/15/2017 Overview: Patient with watery diarrhea Found to have Cdiff Plan: Oral vancomycin Follow diarrhea Fluids as needed Pancytopenia 10/09/2017 12/09/2017 Overview: Patient s/p chemotherapy cycle 3 of dose adjusted R-EPOCH Given 1u pRBC that admission for chemo induced anemia Discharged 10/02 Follow up labs on 10/06 were significant for hgb 8.3 from 9.3, wbc 3.37 (ANC 3.1) from 5.26 (5) and plt 187 from 324 on 10/03. Patient given pegfilgrastim on 10/03 - wbc 0.2, hgb 7.9, plt 80 at OSH - follow trend of chemo induced pancytopenia - continue prophylaxis Acyclovir 400 mg BID; Bactrim DS MWF; Diflucan 200 mg daily (Day 6-21) Neutropenic fever 10/08/2017 10/12/2017 Overview: He was admitted following cycle 1 of chemo with neutropenic fever and bacteremia (with alpha-hemolytic streptococcus mitis/oralis likely secondary to GI translocation and completed a 14 day course of abx). WBC 0.2 (anc not reported) at OSH with temp >101. - given vancomycin and piperacillin/tazobactam at OSH Leukemoid reaction 09/30/2017 11/11/2017 Overview: - 09/30: Patient noted to have leucocytosis (WBC 11.34) on this morning labs which is likely secondary to Neulasta vs CKD vs steroid effect. He is afebrile without any signs or symptoms of infection and will continue to closely monitor. Neutropenic fever 08/20/2017 08/24/2017 Electrolyte imbalance 08/11/2017 05/30/2018 Overview: - Monitor daily labs and replete as needed Melena 08/09/2017 09/07/2017 Overview: - 08/08: Patient reporting dark brown/black stools upon admission and will get occult stool prior to restarting Xeralto to check for melena - 08/09: Occult stool positive, Dr. Sandra Cardenas notified and will arrange for colonoscopy (recent EGD was negative), order placed and scheduled for with patient to be on clear liquids at midnight on Tuesday with bowel prep starting Tuesday evening and NPO 2 hours prior to procedure on . - 08/13: No melena Encounter for chemotherapy management 08/08/2017 05/30/2018 Overview: - Cycle 6 DA-EPOCH. dose level -2 - Doxorubicin/Vincristine/Etoposide IV over 24 hr on D1-4; Cyclophosphamide IV over 1 hour on D5; Prednisone BID D1-5 - chemotherapy orders per Dr. 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 with new acute DVT on 08/11/17 in RUE around PICC line in axilla and subclavian veins and new acute DVT in RLE posterior tibial vein and 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 - Xeralto 20 mg daily HTN (hypertension) 06/23/2016 08/27/2019 Overview: - continue Carvedilol 6.25 daily - continue Amlodipine 5 mg daily - continue Lisinopril 20 daily - 12/13: Pt with increased BP, likely related to steroids Impaired fasting glucose 06/23/2016 020 CKD (chronic kidney disease) stage 3, GFR 30-59 ml/min 06/23/2016 01/16/2021 Overview: Patient with hx of CKD stage 3 - avoid nephrotoxic medications - 12/09: on admission sCr up to 1.73, eGFR 39, received NS at 50 ml/hr - 12/10: Cr 1.63, close to baseline - 12/11: Cr 1.78 - 12/12: Cr 1.35 (stopped supplemental IVFs) - 12/13: Cr improved to 1.26 Pulmonary embolism 05/19/2009 08/27/2019 Delirium 05/19/2009 05/30/2018 Acute renal failure 05/19/2009 08/27/2019 Incontinence 05/19/2009 05/30/2018 Wound 05/19/2009 05/30/2018 Ileus 04/23/2009 09/07/2017 Malnutrition 04/23/2009 03/12/2020 DVT (deep venous thrombosis) 04/23/200902/2020 Malignant neoplasm of bladder, part unspecified 11/08/2008 04/14/2009 documented as of this encounter (statuses as of 05/20/2022) [facility]2019 History of Past illness Narrative* Problem Noted Date Resolved Date Acute pain of right knee 01/17/2019 020 Neck pain on right side 01/17/2019 08/27/19 20 Thrombocytopenia 12/28/2017 05/30/2018 Fluid volume excess 12/13/2017 08/27/2019 Overview: - pt with FVO (increased BLE edema, +20 lbs weight gain) , likely related to IVFs and steroids - stopped supplemental IVFs on 12/12 - will diurese with Lasix IV 20 mg today Anemia 11/11/2017 05/30/2018 Overview: - likely multifactorial related to chemotherapy, CKD, plasmablastic lymphoma - 12/10: Hb 7.9, recieved 1 unit PRBC - 12/11: Hb 8.9 - 12/12: Hb 8.1 - 12/13: Hb 8.0, will transfuse with 1 unit PRBC today for dropping Hb - will have CBC with diff drawn twice weekly Immunosuppression 10/21/2017 05/30/2018 Overview: Patient 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 difficile colitis 10/10/2017 11/15/2017 Overview: Patient with watery diarrhea Found to have Cdiff Plan: Oral vancomycin Follow diarrhea Fluids as needed Pancytopenia 10/09/2017 12/09/2017 Overview: Patient s/p chemotherapy cycle 3 of dose adjusted R-EPOCH Given 1u pRBC that admission for chemo induced anemia Discharged 10/02 Follow up labs on 10/06 were significant for hgb 8.3 from 9.3, wbc 3.37 (ANC 3.1) from 5.26 (5) and plt 187 from 324 on 10/03. Patient given pegfilgrastim on 10/03 - wbc 0.2, hgb 7.9, plt 80 at OSH - follow trend of chemo induced pancytopenia - continue prophylaxis Acyclovir 400 mg BID; Bactrim DS MWF; Diflucan 200 mg daily (Day 6-21) Neutropenic fever 10/08/2017 10/12/2017 Overview: He was admitted following cycle 1 of chemo with neutropenic fever and bacteremia (with alpha-hemolytic streptococcus mitis/oralis likely secondary to GI translocation and completed a 14 day course of abx). WBC 0.2 (anc not reported) at OSH with temp >101. - given vancomycin and piperacillin/tazobactam at OSH Leukemoid reaction 09/30/2017 11/11/2017 Overview: - 09/30: Patient noted to have leucocytosis (WBC 11.34) on this morning labs which is likely secondary to Neulasta vs CKD vs steroid effect. He is afebrile without any signs or symptoms of infection and will continue to closely monitor. Neutropenic fever 08/20/2017 08/24/2017 Electrolyte imbalance 08/11/2017 05/30/2018 Overview: - Monitor daily labs and replete as needed Melena 08/09/2017 09/07/2017 Overview: - 08/08: Patient reporting dark brown/black stools upon admission and will get occult stool prior to restarting Xeralto to check for melena - 08/09: Occult stool positive, Dr. Sandra Cardenas notified and will arrange for colonoscopy (recent EGD was negative), order placed and scheduled for with patient to be on clear liquids at midnight on Tuesday with bowel prep starting Tuesday evening and NPO 2 hours prior to procedure on . - 08/13: No melena Encounter for chemotherapy management 08/08/2017 05/30/2018 Overview: - Cycle 6 DA-EPOCH. dose level -2 - Doxorubicin/Vincristine/Etoposide IV over 24 hr on D1-4; Cyclophosphamide IV over 1 hour on D5; Prednisone BID D1-5 - chemotherapy orders per Dr. 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 with new acute DVT on 08/11/17 in RUE around PICC line in axilla and subclavian veins and new acute DVT in RLE posterior tibial vein and 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 - Xeralto 20 mg daily HTN (hypertension) 06/23/2016 08/27/2019 Overview: - continue Carvedilol 6.25 daily - continue Amlodipine 5 mg daily - continue Lisinopril 20 daily - 12/13: Pt with increased BP, likely related to steroids Impaired fasting glucose 06/23/2016 020 CKD (chronic kidney disease) stage 3, GFR 30-59 ml/min 06/23/2016 01/16/2021 Overview: Patient with hx of CKD stage 3 - avoid nephrotoxic medications - 12/09: on admission sCr up to 1.73, eGFR 39, received NS at 50 ml/hr - 12/10: Cr 1.63, close to baseline - 12/11: Cr 1.78 - 12/12: Cr 1.35 (stopped supplemental IVFs) - 12/13: Cr improved to 1.26 Pulmonary embolism 05/19/2009 08/27/2019 Delirium 05/19/2009 05/30/2018 Acute renal failure 05/19/2009 08/27/2019 Incontinence 05/19/2009 05/30/2018 Wound 05/19/2009 05/30/2018 Ileus 04/23/2009 09/07/2017 Malnutrition 04/23/2009 03/12/2020 DVT (deep venous thrombosis) 04/23/200902/2020 Malignant neoplasm of bladder, part unspecified 11/08/2008 04/14/2009 documented as of this encounter (statuses as of 05/26/2022) [facility]07-[facility]-2019 History of Past illness Narrative* Problem Noted Date Resolved Date Acute pain of right knee 01/17/2019 020 Neck pain on right side 01/17/2019 08/27/19 20 Thrombocytopenia 12/28/2017 05/30/2018 Fluid volume excess 12/13/2017 08/27/2019 Overview: - pt with FVO (increased BLE edema, +20 lbs weight gain) , likely related to IVFs and steroids - stopped supplemental IVFs on 12/12 - will diurese with Lasix IV 20 mg today Anemia 11/11/2017 05/30/2018 Overview: - likely multifactorial related to chemotherapy, CKD, plasmablastic lymphoma - 12/10: Hb 7.9, recieved 1 unit PRBC - 12/11: Hb 8.9 - 12/12: Hb 8.1 - 12/13: Hb 8.0, will transfuse with 1 unit PRBC today for dropping Hb - will have CBC with diff drawn twice weekly Immunosuppression 10/21/2017 05/30/2018 Overview: Patient 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 difficile colitis 10/10/2017 11/15/2017 Overview: Patient with watery diarrhea Found to have Cdiff Plan: Oral vancomycin Follow diarrhea Fluids as needed Pancytopenia 10/09/2017 12/09/2017 Overview: Patient s/p chemotherapy cycle 3 of dose adjusted R-EPOCH Given 1u pRBC that admission for chemo induced anemia Discharged 10/02 Follow up labs on 10/06 were significant for hgb 8.3 from 9.3, wbc 3.37 (ANC 3.1) from 5.26 (5) and plt 187 from 324 on 10/03. Patient given pegfilgrastim on 10/03 - wbc 0.2, hgb 7.9, plt 80 at OSH - follow trend of chemo induced pancytopenia - continue prophylaxis Acyclovir 400 mg BID; Bactrim DS MWF; Diflucan 200 mg daily (Day 6-21) Neutropenic fever 10/08/2017 10/12/2017 Overview: He was admitted following cycle 1 of chemo with neutropenic fever and bacteremia (with alpha-hemolytic streptococcus mitis/oralis likely secondary to GI translocation and completed a 14 day course of abx). WBC 0.2 (anc not reported) at OSH with temp >101. - given vancomycin and piperacillin/tazobactam at OSH Leukemoid reaction 09/30/2017 11/11/2017 Overview: - 09/30: Patient noted to have leucocytosis (WBC 11.34) on this morning labs which is likely secondary to Neulasta vs CKD vs steroid effect. He is afebrile without any signs or symptoms of infection and will continue to closely monitor. Neutropenic fever 08/20/2017 08/24/2017 Electrolyte imbalance 08/11/2017 05/30/2018 Overview: - Monitor daily labs and replete as needed Melena 08/09/2017 09/07/2017 Overview: - 08/08: Patient reporting dark brown/black stools upon admission and will get occult stool prior to restarting Xeralto to check for melena - 08/09: Occult stool positive, Dr. Sandra Cardenas notified and will arrange for colonoscopy (recent EGD was negative), order placed and scheduled for with patient to be on clear liquids at midnight on Tuesday with bowel prep starting Tuesday evening and NPO 2 hours prior to procedure on . - 08/13: No melena Encounter for chemotherapy management 08/08/2017 05/30/2018 Overview: - Cycle 6 DA-EPOCH. dose level -2 - Doxorubicin/Vincristine/Etoposide IV over 24 hr on D1-4; Cyclophosphamide IV over 1 hour on D5; Prednisone BID D1-5 - chemotherapy orders per Dr. Sandra Cardenas - consent in [facility] - monitor for toxicities - venous access: port - VTE ppx: on therapeutic AC with Xeralto - GI ppx: Protonix - ID ppx: Acylcovir, Bactrim, Fluconazole (D6-21) CINV (chemotherapy-induced nausea and vomiting) 08/08/2017 05/30/2018 Overview: - Zofran 8 mg daily - Compazine 10 mg Q6H PRN Drug-induced constipation 08/08/20172017 Overview: 2/2 Vincristine - Senna-S 2 tabs BID - Miralax daily PRN Plasma cell neoplasm 06/23/2017 08/27/2019 Malignant neoplasm of urinary bladder 05/15/2017 08/27/2019 Acute DVT (deep venous thrombosis) 02/25/2017 08/27/2019 Overview: 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 with new acute DVT on 08/11/17 in RUE around PICC line in axilla and subclavian veins and new acute DVT in RLE posterior tibial vein and 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 - Xeralto 20 mg daily HTN (hypertension) 06/23/2016 08/27/2019 Overview: - continue Carvedilol 6.25 daily - continue Amlodipine 5 mg daily - continue Lisinopril 20 daily - 12/13: Pt with increased BP, likely related to steroids Impaired fasting glucose 06/23/2016 020 CKD (chronic kidney disease) stage 3, GFR 30-59 ml/min 06/23/2016 01/16/2021 Overview: Patient with hx of CKD stage 3 - avoid nephrotoxic medications - 12/09: on admission sCr up to 1.73, eGFR 39, received NS at 50 ml/hr - 12/10: Cr 1.63, close to baseline - 12/11: Cr 1.78 - 12/12: Cr 1.35 (stopped supplemental IVFs) - 12/13: Cr improved to 1.26 Pulmonary embolism 05/19/2009 08/27/2019 Delirium 05/19/2009 05/30/2018 Acute renal failure 05/19/2009 08/27/2019 Incontinence 05/19/2009 05/30/2018 Wound 05/19/2009 05/30/2018 Ileus 04/23/2009 09/07/2017 Malnutrition 04/23/2009 03/12/2020 DVT (deep venous thrombosis) 04/23/200902/2020 Malignant neoplasm of bladder, part unspecified 11/08/2008 04/14/2009 documented as of this encounter (statuses as of 05/27/2022) [facility]-2019 History of Past illness Narrative* Problem Noted Date Resolved Date Acute pain of right knee 01/17/2019 020 Neck pain on right side 01/17/2019 08/27/19 20 Thrombocytopenia 12/28/2017 05/30/2018 Fluid volume excess 12/13/2017 08/27/2019 Overview: - pt with FVO (increased BLE edema, +20 lbs weight gain) , likely related to IVFs and steroids - stopped supplemental IVFs on 12/12 - will diurese with Lasix IV 20 mg today Anemia 11/11/2017 05/30/2018 Overview: - likely multifactorial related to chemotherapy, CKD, plasmablastic lymphoma - 12/10: Hb 7.9, recieved 1 unit PRBC - 12/11: Hb 8.9 - 12/12: Hb 8.1 - 12/13: Hb 8.0, will transfuse with 1 unit PRBC today for dropping Hb - will have CBC with diff drawn twice weekly Immunosuppression 10/21/2017 05/30/2018 Overview: Patient 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 difficile colitis 10/10/2017 11/15/2017 Overview: Patient with watery diarrhea Found to have Cdiff Plan: Oral vancomycin Follow diarrhea Fluids as needed Pancytopenia 10/09/2017 12/09/2017 Overview: Patient s/p chemotherapy cycle 3 of dose adjusted R-EPOCH Given 1u pRBC that admission for chemo induced anemia Discharged 10/02 Follow up labs on 10/06 were significant for hgb 8.3 from 9.3, wbc 3.37 (ANC 3.1) from 5.26 (5) and plt 187 from 324 on 10/03. Patient given pegfilgrastim on 10/03 - wbc 0.2, hgb 7.9, plt 80 at OSH - follow trend of chemo induced pancytopenia - continue prophylaxis Acyclovir 400 mg BID; Bactrim DS MWF; Diflucan 200 mg daily (Day 6-21) Neutropenic fever 10/08/2017 10/12/2017 Overview: He was admitted following cycle 1 of chemo with neutropenic fever and bacteremia (with alpha-hemolytic streptococcus mitis/oralis likely secondary to GI translocation and completed a 14 day course of abx). WBC 0.2 (anc not reported) at OSH with temp >101. - given vancomycin and piperacillin/tazobactam at OSH Leukemoid reaction 09/30/2017 11/11/2017 Overview: - 09/30: Patient noted to have leucocytosis (WBC 11.34) on this morning labs which is likely secondary to Neulasta vs CKD vs steroid effect. He is afebrile without any signs or symptoms of infection and will continue to closely monitor. Neutropenic fever 08/20/2017 08/24/2017 Electrolyte imbalance 08/11/2017 05/30/2018 Overview: - Monitor daily labs and replete as needed Melena 08/09/2017 09/07/2017 Overview: - 08/08: Patient reporting dark brown/black stools upon admission and will get occult stool prior to restarting Xeralto to check for melena - 08/09: Occult stool positive, Dr. Sandra Cardenas notified and will arrange for colonoscopy (recent EGD was negative), order placed and scheduled for with patient to be on clear liquids at midnight on Tuesday with bowel prep starting Tuesday evening and NPO 2 hours prior to procedure on . - 08/13: No melena Encounter for chemotherapy management 08/08/2017 05/30/2018 Overview: - Cycle 6 DA-EPOCH. dose level -2 - Doxorubicin/Vincristine/Etoposide IV over 24 hr on D1-4; Cyclophosphamide IV over 1 hour on D5; Prednisone BID D1-5 - chemotherapy orders per Dr. 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 with new acute DVT on 08/11/17 in RUE around PICC line in axilla and subclavian veins and new acute DVT in RLE posterior tibial vein and 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 - Xeralto 20 mg daily HTN (hypertension) 06/23/2016 08/27/2019 Overview: - continue Carvedilol 6.25 daily - continue Amlodipine 5 mg daily - continue Lisinopril 20 daily - 12/13: Pt with increased BP, likely related to steroids Impaired fasting glucose 06/23/2016 020 CKD (chronic kidney disease) stage 3, GFR 30-59 ml/min 06/23/2016 01/16/2021 Overview: Patient with hx of CKD stage 3 - avoid nephrotoxic medications - 12/09: on admission sCr up to 1.73, eGFR 39, received NS at 50 ml/hr - 12/10: Cr 1.63, close to baseline - 12/11: Cr 1.78 - 12/12: Cr 1.35 (stopped supplemental IVFs) - 12/13: Cr improved to 1.26 Pulmonary embolism 05/19/2009 08/27/2019 Delirium 05/19/2009 05/30/2018 Acute renal failure 05/19/2009 08/27/2019 Incontinence 05/19/2009 05/30/2018 Wound 05/19/2009 05/30/2018 Ileus 04/23/2009 09/07/2017 Malnutrition 04/23/2009 03/12/2020 DVT (deep venous thrombosis) 04/23/200902/2020 Malignant neoplasm of bladder, part unspecified 11/08/2008 04/14/2009 documented as of this encounter (statuses as of 05/28/2022) [facility]2019 History of Past illness Narrative* Problem Noted Date Resolved Date Acute pain of right knee 01/17/2019 020 Neck pain on right side 01/17/2019 08/27/19 20 Thrombocytopenia 12/28/2017 05/30/2018 Fluid volume excess 12/13/2017 08/27/2019 Overview: - pt with FVO (increased BLE edema, +20 lbs weight gain) , likely related to IVFs and steroids - stopped supplemental IVFs on 12/12 - will diurese with Lasix IV 20 mg today Anemia 11/11/2017 05/30/2018 Overview: - likely multifactorial related to chemotherapy, CKD, plasmablastic lymphoma - 12/10: Hb 7.9, recieved 1 unit PRBC - 12/11: Hb 8.9 - 12/12: Hb 8.1 - 12/13: Hb 8.0, will transfuse with 1 unit PRBC today for dropping Hb - will have CBC with diff drawn twice weekly Immunosuppression 10/21/2017 05/30/2018 Overview: Patient 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 difficile colitis 10/10/2017 11/15/2017 Overview: Patient with watery diarrhea Found to have Cdiff Plan: Oral vancomycin Follow diarrhea Fluids as needed Pancytopenia 10/09/2017 12/09/2017 Overview: Patient s/p chemotherapy cycle 3 of dose adjusted R-EPOCH Given 1u pRBC that admission for chemo induced anemia Discharged 10/02 Follow up labs on 10/06 were significant for hgb 8.3 from 9.3, wbc 3.37 (ANC 3.1) from 5.26 (5) and plt 187 from 324 on 10/03. Patient given pegfilgrastim on 10/03 - wbc 0.2, hgb 7.9, plt 80 at OSH - follow trend of chemo induced pancytopenia - continue prophylaxis Acyclovir 400 mg BID; Bactrim DS MWF; Diflucan 200 mg daily (Day 6-21) Neutropenic fever 10/08/2017 10/12/2017 Overview: He was admitted following cycle 1 of chemo with neutropenic fever and bacteremia (with alpha-hemolytic streptococcus mitis/oralis likely secondary to GI translocation and completed a 14 day course of abx). WBC 0.2 (anc not reported) at OSH with temp >101. - given vancomycin and piperacillin/tazobactam at OSH Leukemoid reaction 09/30/2017 11/11/2017 Overview: - 09/30: Patient noted to have leucocytosis (WBC 11.34) on this morning labs which is likely secondary to Neulasta vs CKD vs steroid effect. He is afebrile without any signs or symptoms of infection and will continue to closely monitor. Neutropenic fever 08/20/2017 08/24/2017 Electrolyte imbalance 08/11/2017 05/30/2018 Overview: - Monitor daily labs and replete as needed Melena 08/09/2017 09/07/2017 Overview: - 08/08: Patient reporting dark brown/black stools upon admission and will get occult stool prior to restarting Xeralto to check for melena - 08/09: Occult stool positive, Dr. Sandra Cardenas notified and will arrange for colonoscopy (recent EGD was negative), order placed and scheduled for with patient to be on clear liquids at midnight on Tuesday with bowel prep starting Tuesday evening and NPO 2 hours prior to procedure on . - 08/13: No melena Encounter for chemotherapy management 08/08/2017 05/30/2018 Overview: - Cycle 6 DA-EPOCH. dose level -2 - Doxorubicin/Vincristine/Etoposide IV over 24 hr on D1-4; Cyclophosphamide IV over 1 hour on D5; Prednisone BID D1-5 - chemotherapy orders per Dr. Sandra Cardenas - consent in [facility] - monitor for toxicities - venous access: port - VTE ppx: on therapeutic AC with Xeralto - GI ppx: Protonix - ID ppx: Acylcovir, Bactrim, Fluconazole (D6-21) CINV (chemotherapy-induced nausea and vomiting) 08/08/2017 05/30/2018 Overview: - Zofran 8 mg daily - Compazine 10 mg Q6H PRN Drug-induced constipation 08/08/20172017 Overview: 2/2 Vincristine - Senna-S 2 tabs BID - Miralax daily PRN Plasma cell neoplasm 06/23/2017 08/27/2019 Malignant neoplasm of urinary bladder 05/15/2017 08/27/2019 Acute DVT (deep venous thrombosis) 02/25/2017 08/27/2019 Overview: 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 with new acute DVT on 08/11/17 in RUE around PICC line in axilla and subclavian veins and new acute DVT in RLE posterior tibial vein and 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 - Xeralto 20 mg daily HTN (hypertension) 06/23/2016 08/27/2019 Overview: - continue Carvedilol 6.25 daily - continue Amlodipine 5 mg daily - continue Lisinopril 20 daily - 12/13: Pt with increased BP, likely related to steroids Impaired fasting glucose 06/23/2016 020 CKD (chronic kidney disease) stage 3, GFR 30-59 ml/min 06/23/2016 01/16/2021 Overview: Patient with hx of CKD stage 3 - avoid nephrotoxic medications - 12/09: on admission sCr up to 1.73, eGFR 39, received NS at 50 ml/hr - 12/10: Cr 1.63, close to baseline - 12/11: Cr 1.78 - 12/12: Cr 1.35 (stopped supplemental IVFs) - 12/13: Cr improved to 1.26 Pulmonary embolism 05/19/2009 08/27/2019 Delirium 05/19/2009 05/30/2018 Acute renal failure 05/19/2009 08/27/2019 Incontinence 05/19/2009 05/30/2018 Wound 05/19/2009 05/30/2018 Ileus 04/23/2009 09/07/2017 Malnutrition 04/23/2009 03/12/2020 DVT (deep venous thrombosis) 04/23/200902/2020 Malignant neoplasm of bladder, part unspecified 11/08/2008 04/14/2009 documented as of this encounter (statuses as of 06/20/2022) [facility]2019 History of Past illness Narrative* Problem Noted Date Resolved Date Acute pain of right knee 01/17/2019 020 Neck pain on right side 01/17/2019 08/27/19 20 Thrombocytopenia 12/28/2017 05/30/2018 Fluid volume excess 12/13/2017 08/27/2019 Overview: - pt with FVO (increased BLE edema, +20 lbs weight gain) , likely related to IVFs and steroids - stopped supplemental IVFs on 12/12 - will diurese with Lasix IV 20 mg today Anemia 11/11/2017 05/30/2018 Overview: - likely multifactorial related to chemotherapy, CKD, plasmablastic lymphoma - 12/10: Hb 7.9, recieved 1 unit PRBC - 12/11: Hb 8.9 - 12/12: Hb 8.1 - 12/13: Hb 8.0, will transfuse with 1 unit PRBC today for dropping Hb - will have CBC with diff drawn twice weekly Immunosuppression 10/21/2017 05/30/2018 Overview: Patient 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 difficile colitis 10/10/2017 11/15/2017 Overview: Patient with watery diarrhea Found to have Cdiff Plan: Oral vancomycin Follow diarrhea Fluids as needed Pancytopenia 10/09/2017 12/09/2017 Overview: Patient s/p chemotherapy cycle 3 of dose adjusted R-EPOCH Given 1u pRBC that admission for chemo induced anemia Discharged 10/02 Follow up labs on 10/06 were significant for hgb 8.3 from 9.3, wbc 3.37 (ANC 3.1) from 5.26 (5) and plt 187 from 324 on 10/03. Patient given pegfilgrastim on 10/03 - wbc 0.2, hgb 7.9, plt 80 at OSH - follow trend of chemo induced pancytopenia - continue prophylaxis Acyclovir 400 mg BID; Bactrim DS MWF; Diflucan 200 mg daily (Day 6-21) Neutropenic fever 10/08/2017 10/12/2017 Overview: He was admitted following cycle 1 of chemo with neutropenic fever and bacteremia (with alpha-hemolytic streptococcus mitis/oralis likely secondary to GI translocation and completed a 14 day course of abx). WBC 0.2 (anc not reported) at OSH with temp >101. - given vancomycin and piperacillin/tazobactam at OSH Leukemoid reaction 09/30/2017 11/11/2017 Overview: - 09/30: Patient noted to have leucocytosis (WBC 11.34) on this morning labs which is likely secondary to Neulasta vs CKD vs steroid effect. He is afebrile without any signs or symptoms of infection and will continue to closely monitor. Neutropenic fever 08/20/2017 08/24/2017 Electrolyte imbalance 08/11/2017 05/30/2018 Overview: - Monitor daily labs and replete as needed Melena 08/09/2017 09/07/2017 Overview: - 08/08: Patient reporting dark brown/black stools upon admission and will get occult stool prior to restarting Xeralto to check for melena - 08/09: Occult stool positive, Dr. Sandra Cardenas notified and will arrange for colonoscopy (recent EGD was negative), order placed and scheduled for with patient to be on clear liquids at midnight on Tuesday with bowel prep starting Tuesday evening and NPO 2 hours prior to procedure on . - 08/13: No melena Encounter for chemotherapy management 08/08/2017 05/30/2018 Overview: - Cycle 6 DA-EPOCH. dose level -2 - Doxorubicin/Vincristine/Etoposide IV over 24 hr on D1-4; Cyclophosphamide IV over 1 hour on D5; Prednisone BID D1-5 - chemotherapy orders per Dr. 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 with new acute DVT on 08/11/17 in RUE around PICC line in axilla and subclavian veins and new acute DVT in RLE posterior tibial vein and 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 - Xeralto 20 mg daily HTN (hypertension) 06/23/2016 08/27/2019 Overview: - continue Carvedilol 6.25 daily - continue Amlodipine 5 mg daily - continue Lisinopril 20 daily - 12/13: Pt with increased BP, likely related to steroids Impaired fasting glucose 06/23/2016 020 CKD (chronic kidney disease) stage 3, GFR 30-59 ml/min 06/23/2016 01/16/2021 Overview: Patient with hx of CKD stage 3 - avoid nephrotoxic medications - 12/09: on admission sCr up to 1.73, eGFR 39, received NS at 50 ml/hr - 12/10: Cr 1.63, close to baseline - 12/11: Cr 1.78 - 12/12: Cr 1.35 (stopped supplemental IVFs) - 12/13: Cr improved to 1.26 Pulmonary embolism 05/19/2009 08/27/2019 Delirium 05/19/2009 05/30/2018 Acute renal failure 05/19/2009 08/27/2019 Incontinence 05/19/2009 05/30/2018 Wound 05/19/2009 05/30/2018 Ileus 04/23/2009 09/07/2017 Malnutrition 04/23/2009 03/12/2020 DVT (deep venous thrombosis) 04/23/200902/2020 Malignant neoplasm of bladder, part unspecified 11/08/2008 04/14/2009 documented as of this encounter (statuses as of 07/09/2022) [facility]2019 History of Past illness Narrative* Problem Noted Date Resolved Date Acute pain of right knee 01/17/2019 020 Neck pain on right side 01/17/2019 08/27/19 20 Thrombocytopenia 12/28/2017 05/30/2018 Fluid volume excess 12/13/2017 08/27/2019 Overview: - pt with FVO (increased BLE edema, +20 lbs weight gain) , likely related to IVFs and steroids - stopped supplemental IVFs on 12/12 - will diurese with Lasix IV 20 mg today Anemia 11/11/2017 05/30/2018 Overview: - likely multifactorial related to chemotherapy, CKD, plasmablastic lymphoma - 12/10: Hb 7.9, recieved 1 unit PRBC - 12/11: Hb 8.9 - 12/12: Hb 8.1 - 12/13: Hb 8.0, will transfuse with 1 unit PRBC today for dropping Hb - will have CBC with diff drawn twice weekly Immunosuppression 10/21/2017 05/30/2018 Overview: Patient 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 difficile colitis 10/10/2017 11/15/2017 Overview: Patient with watery diarrhea Found to have Cdiff Plan: Oral vancomycin Follow diarrhea Fluids as needed Pancytopenia 10/09/2017 12/09/2017 Overview: Patient s/p chemotherapy cycle 3 of dose adjusted R-EPOCH Given 1u pRBC that admission for chemo induced anemia Discharged 10/02 Follow up labs on 10/06 were significant for hgb 8.3 from 9.3, wbc 3.37 (ANC 3.1) from 5.26 (5) and plt 187 from 324 on 10/03. Patient given pegfilgrastim on 10/03 - wbc 0.2, hgb 7.9, plt 80 at OSH - follow trend of chemo induced pancytopenia - continue prophylaxis Acyclovir 400 mg BID; Bactrim DS MWF; Diflucan 200 mg daily (Day 6-21) Neutropenic fever 10/08/2017 10/12/2017 Overview: He was admitted following cycle 1 of chemo with neutropenic fever and bacteremia (with alpha-hemolytic streptococcus mitis/oralis likely secondary to GI translocation and completed a 14 day course of abx). WBC 0.2 (anc not reported) at OSH with temp >101. - given vancomycin and piperacillin/tazobactam at OSH Leukemoid reaction 09/30/2017 11/11/2017 Overview: - 09/30: Patient noted to have leucocytosis (WBC 11.34) on this morning labs which is likely secondary to Neulasta vs CKD vs steroid effect. He is afebrile without any signs or symptoms of infection and will continue to closely monitor. Neutropenic fever 08/20/2017 08/24/2017 Electrolyte imbalance 08/11/2017 05/30/2018 Overview: - Monitor daily labs and replete as needed Melena 08/09/2017 09/07/2017 Overview: - 08/08: Patient reporting dark brown/black stools upon admission and will get occult stool prior to restarting Xeralto to check for melena - 08/09: Occult stool positive, Dr. Sandra Cardenas notified and will arrange for colonoscopy (recent EGD was negative), order placed and scheduled for with patient to be on clear liquids at midnight on Tuesday with bowel prep starting Tuesday evening and NPO 2 hours prior to procedure on . - 08/13: No melena Encounter for chemotherapy management 08/08/2017 05/30/2018 Overview: - Cycle 6 DA-EPOCH. dose level -2 - Doxorubicin/Vincristine/Etoposide IV over 24 hr on D1-4; Cyclophosphamide IV over 1 hour on D5; Prednisone BID D1-5 - chemotherapy orders per Dr. Sandra Cardenas - consent in [facility] - monitor for toxicities - venous access: port - VTE ppx: on therapeutic AC with Xeralto - GI ppx: Protonix - ID ppx: Acylcovir, Bactrim, Fluconazole (D6-21) CINV (chemotherapy-induced nausea and vomiting) 08/08/2017 05/30/2018 Overview: - Zofran 8 mg daily - Compazine 10 mg Q6H PRN Drug-induced constipation 08/08/20172017 Overview: 2/ Vincristine - Senna-S 2 tabs BID - Miralax daily PRN Plasma cell neoplasm 06/23/2017 08/27/2019 Malignant neoplasm of urinary bladder 05/15/2017 08/27/2019 Acute DVT (deep venous thrombosis) 02/25/2017 08/27/2019 Overview: 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 with new acute DVT on 08/11/17 in RUE around PICC line in axilla and subclavian veins and new acute DVT in RLE posterior tibial vein and 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 - Xeralto 20 mg daily HTN (hypertension) 06/23/2016 08/27/2019 Overview: - continue Carvedilol 6.25 daily - continue Amlodipine 5 mg daily - continue Lisinopril 20 daily - 12/13: Pt with increased BP, likely related to steroids Impaired fasting glucose 06/23/2016 020 CKD (chronic kidney disease) stage 3, GFR 30-59 ml/min 06/23/2016 01/16/2021 Overview: Patient with hx of CKD stage 3 - avoid nephrotoxic medications - 12/09: on admission sCr up to 1.73, eGFR 39, received NS at 50 ml/hr - 12/10: Cr 1.63, close to baseline - 12/11: Cr 1.78 - 12/12: Cr 1.35 (stopped supplemental IVFs) - 12/13: Cr improved to 1.26 Pulmonary embolism 05/19/2009 08/27/2019 Delirium 05/19/2009 05/30/2018 Acute renal failure 05/19/2009 08/27/2019 Incontinence 05/19/2009 05/30/2018 Wound 05/19/2009 05/30/2018 Ileus 04/23/2009 09/07/2017 Malnutrition 04/23/2009 03/12/2020 DVT (deep venous thrombosis) 04/23/200902/2020 Malignant neoplasm of bladder, part unspecified 11/08/2008 04/14/2009 documented as of this encounter (statuses as of 08/06/2022) [facility]07-31-2019 History of Past illness Narrative* Problem Noted Date Resolved Date Acute pain of right knee 01/17/2019 020 Neck pain on right side 01/17/2019 08/27/19 20 Thrombocytopenia 12/28/2017 05/30/2018 Fluid volume excess 12/13/2017 08/27/2019 Overview: - pt with FVO (increased BLE edema, +20 lbs weight gain) , likely related to IVFs and steroids - stopped supplemental IVFs on 12/12 - will diurese with Lasix IV 20 mg today Anemia 11/11/2017 05/30/2018 Overview: - likely multifactorial related to chemotherapy, CKD, plasmablastic lymphoma - 12/10: Hb 7.9, recieved 1 unit PRBC - 12/11: Hb 8.9 - 12/12: Hb 8.1 - 12/13: Hb 8.0, will transfuse with 1 unit PRBC today for dropping Hb - will have CBC with diff drawn twice weekly Immunosuppression 10/21/2017 05/30/2018 Overview: Patient 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 difficile colitis 10/10/2017 11/15/2017 Overview: Patient with watery diarrhea Found to have Cdiff Plan: Oral vancomycin Follow diarrhea Fluids as needed Pancytopenia 10/09/2017 12/09/2017 Overview: Patient s/p chemotherapy cycle 3 of dose adjusted R-EPOCH Given 1u pRBC that admission for chemo induced anemia Discharged 10/02 Follow up labs on 10/06 were significant for hgb 8.3 from 9.3, wbc 3.37 (ANC 3.1) from 5.26 (5) and plt 187 from 324 on 10/03. Patient given pegfilgrastim on 10/03 - wbc 0.2, hgb 7.9, plt 80 at OSH - follow trend of chemo induced pancytopenia - continue prophylaxis Acyclovir 400 mg BID; Bactrim DS MWF; Diflucan 200 mg daily (Day 6-21) Neutropenic fever 10/08/2017 10/12/2017 Overview: He was admitted following cycle 1 of chemo with neutropenic fever and bacteremia (with alpha-hemolytic streptococcus mitis/oralis likely secondary to GI translocation and completed a 14 day course of abx). WBC 0.2 (anc not reported) at OSH with temp >101. - given vancomycin and piperacillin/tazobactam at OSH Leukemoid reaction 09/30/2017 11/11/2017 Overview: - 09/30: Patient noted to have leucocytosis (WBC 11.34) on this morning labs which is likely secondary to Neulasta vs CKD vs steroid effect. He is afebrile without any signs or symptoms of infection and will continue to closely monitor. Neutropenic fever 08/20/2017 08/24/2017 Electrolyte imbalance 08/11/2017 05/30/2018 Overview: - Monitor daily labs and replete as needed Melena 08/09/2017 09/07/2017 Overview: - 08/08: Patient reporting dark brown/black stools upon admission and will get occult stool prior to restarting Xeralto to check for melena - 2/20: Occult stool positive, Dr. Sandra Cardenas notified and will arrange for colonoscopy (recent EGD was negative), order placed and scheduled for with patient to be on clear liquids at midnight on Tuesday with bowel prep starting Tuesday evening and NPO 2 hours prior to procedure on . - 08/13: No melena Encounter for chemotherapy management 08/08/2017 05/30/2018 Overview: - Cycle 6 DA-EPOCH. dose level -2 - Doxorubicin/Vincristine/Etoposide IV over 24 hr on D1-4; Cyclophosphamide IV over 1 hour on D5; Prednisone BID D1-5 - chemotherapy orders per Dr. 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 with new acute DVT on 08/11/17 in RUE around PICC line in axilla and subclavian veins and new acute DVT in RLE posterior tibial vein and 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 - Xeralto 20 mg daily HTN (hypertension) 06/23/2016 08/27/2019 Overview: - continue Carvedilol 6.25 daily - continue Amlodipine 5 mg daily - continue Lisinopril 20 daily - 12/13: Pt with increased BP, likely related to steroids Impaired fasting glucose 06/23/2016 020 CKD (chronic kidney disease) stage 3, GFR 30-59 ml/min 06/23/2016 01/16/2021 Overview: Patient with hx of CKD stage 3 - avoid nephrotoxic medications - 12/09: on admission sCr up to 1.73, eGFR 39, received NS at 50 ml/hr - 12/10: Cr 1.63, close to baseline - 12/11: Cr 1.78 - 12/12: Cr 1.35 (stopped supplemental IVFs) - 12/13: Cr improved to 1.26 Pulmonary embolism 05/19/2009 08/27/2019 Delirium 05/19/2009 05/30/2018 Acute renal failure 05/19/2009 08/27/2019 Incontinence 05/19/2009 05/30/2018 Wound 05/19/2009 05/30/2018 Ileus 04/23/2009 09/07/2017 Malnutrition 04/23/2009 03/12/2020 DVT (deep venous thrombosis) 04/23/200902/2020 Malignant neoplasm of bladder, part unspecified 11/08/2008 04/14/2009 documented as of this encounter (statuses as of 12/07/2022) [facility]-2019 History of Past illness Narrative* Problem Noted Date Diagnosed Date Resolved Date Acute pain of right knee 01/17/201902/2020 Neck pain on right side 01/17/2019 0302/2020 Thrombocytopenia 12/28/2017 05/30/2018 Fluid volume excess 12/13/2017 08/27/19 20 Overview: - pt with FVO (increased BLE edema, +20 lbs weight gain) , likely related to IVFs and steroids - stopped supplemental IVFs on 12/12 - will diurese with Lasix IV 20 mg today Anemia 11/11/2017 05/30/2018 Overview: - likely multifactorial related to chemotherapy, CKD, plasmablastic lymphoma - 12/10: Hb 7.9, recieved 1 unit PRBC - 12/11: Hb 8.9 - 12/12: Hb 8.1 - 12/13: Hb 8.0, will transfuse with 1 unit PRBC today for dropping Hb - will have CBC with diff drawn twice weekly Immunosuppression 10/21/2017 05/30/2018 Overview: Patient 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 difficile colitis 10/10/2017 018 Overview: Patient with watery diarrhea Found to have Cdiff Plan: Oral vancomycin Follow diarrhea Fluids as needed Pancytopenia 10/09/2017 12/09/2017 Overview: Patient s/p chemotherapy cycle 3 of dose adjusted R-EPOCH Given 1u pRBC that admission for chemo induced anemia Discharged 10/02 Follow up labs on 10/06 were significant for hgb 8.3 from 9.3, wbc 3.37 (ANC 3.1) from 5.26 (5) and plt 187 from 324 on 10/03. Patient given pegfilgrastim on 10/03 - wbc 0.2, hgb 7.9, plt 80 at OSH - follow trend of chemo induced pancytopenia - continue prophylaxis Acyclovir 400 mg BID; Bactrim DS MWF; Diflucan 200 mg daily (Day 6-21) Neutropenic fever 10/08/2017 10/12/2017 Overview: He was admitted following cycle 1 of chemo with neutropenic fever and bacteremia (with alpha-hemolytic streptococcus mitis/oralis likely secondary to GI translocation and completed a 14 day course of abx). WBC 0.2 (anc not reported) at OSH with temp >101. - given vancomycin and piperacillin/tazobactam at OSH Leukemoid reaction 09/30/2017 8 Overview: - 09/30: Patient noted to have leucocytosis (WBC 11.34) on this morning labs which is likely secondary to Neulasta vs CKD vs steroid effect. He is afebrile without any signs or symptoms of infection and will continue to closely monitor. Neutropenic fever 08/20/2017 08/24/2017 Electrolyte imbalance 08/11/20172017 Overview: - Monitor daily labs and replete as needed Melena 08/09/2017 09/07/2017 Overview: - 08/08: Patient reporting dark brown/black stools upon admission and will get occult stool prior to restarting Xeralto to check for melena - 08/09: Occult stool positive, Dr. Sandra Cardenas notified and will arrange for colonoscopy (recent EGD was negative), order placed and scheduled for with patient to be on clear liquids at midnight on Tuesday with bowel prep starting Tuesday evening and NPO 2 hours prior to procedure on . - 08/13: No melena Encounter for chemotherapy management 08/08/2017 05/30/2018 Overview: - Cycle 6 DA-EPOCH. dose level -2 - Doxorubicin/Vincristine/Etoposide IV over 24 hr on D1-4; Cyclophosphamide IV over 1 hour on D5; Prednisone BID D1-5 - chemotherapy orders per Dr. 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 with new acute DVT on 08/11/17 in RUE around PICC line in axilla and subclavian veins and new acute DVT in RLE posterior tibial vein and 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 - Xeralto 20 mg daily HTN (hypertension) 06/23/2016 0 Overview: - continue Carvedilol 6.25 daily - continue Amlodipine 5 mg daily - continue Lisinopril 20 daily - 12/13: Pt with increased BP, likely related to steroids Impaired fasting glucose 06/23/201602/2020 CKD (chronic kidney disease) stage 3, GFR 30-59 ml/min 06/23/2016 01/16/2021 Overview: Patient with hx of CKD stage 3 - avoid nephrotoxic medications - 12/09: on admission sCr up to 1.73, eGFR 39, received NS at 50 ml/hr - 12/10: Cr 1.63, close to baseline - 12/11: Cr 1.78 - 12/12: Cr 1.35 (stopped supplemental IVFs) - 12/13: Cr improved to 1.26 Pulmonary embolism 05/19/2009 0 Delirium 05/19/2009 05/30/2018 Acute renal failure 05/19/2009 08/27/19 20 Incontinence 05/19/2009 05/30/2018 Wound 05/19/2009 05/30/2018 Ileus 04/23/2009 09/07/2017 Malnutrition 04/23/2009 03/12/2020 DVT (deep venous thrombosis) 04/23/2009 08/27/2019 Malignant neoplasm of bladde r, part unspecified 11/08/2008 04/14/2009 documented as of this encounter (statuses as of 01/04/2023) [facility]-2019 History of Past illness Narrative* Problem Noted Date Diagnosed Date Resolved Date Acute pain of right knee 01/17/201902/2020 Neck pain on right side 01/17/2019 03/0 02/2020 Thrombocytopenia 12/28/2017 05/30/2018 Fluid volume excess 12/13/2017 08/27/19 20 Overview: - pt with FVO (increased BLE edema, +20 lbs weight gain) , likely related to IVFs and steroids - stopped supplemental IVFs on 12/12 - will diurese with Lasix IV 20 mg today Anemia 11/11/2017 05/30/2018 Overview: - likely multifactorial related to chemotherapy, CKD, plasmablastic lymphoma - 12/10: Hb 7.9, recieved 1 unit PRBC - 12/11: Hb 8.9 - 12/12: Hb 8.1 - 12/13: Hb 8.0, will transfuse with 1 unit PRBC today for dropping Hb - will have CBC with diff drawn twice weekly Immunosuppression 10/21/2017 05/30/2018 Overview: Patient 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 difficile colitis 10/10/2017 018 Overview: Patient with watery diarrhea Found to have Cdiff Plan: Oral vancomycin Follow diarrhea Fluids as needed Pancytopenia 10/09/2017 12/09/2017 Overview: Patient s/p chemotherapy cycle 3 of dose adjusted R-EPOCH Given 1u pRBC that admission for chemo induced anemia Discharged 10/02 Follow up labs on 10/06 were significant for hgb 8.3 from 9.3, wbc 3.37 (ANC 3.1) from 5.26 (5) and plt 187 from 324 on 10/03. Patient given pegfilgrastim on 10/03 - wbc 0.2, hgb 7.9, plt 80 at OSH - follow trend of chemo induced pancytopenia - continue prophylaxis Acyclovir 400 mg BID; Bactrim DS MWF; Diflucan 200 mg daily (Day 6-21) Neutropenic fever 10/08/2017 10/12/2017 Overview: He was admitted following cycle 1 of chemo with neutropenic fever and bacteremia (with alpha-hemolytic streptococcus mitis/oralis likely secondary to GI translocation and completed a 14 day course of abx). WBC 0.2 (anc not reported) at OSH with temp >101. - given vancomycin and piperacillin/tazobactam at OSH Leukemoid reaction 09/30/2017 8 Overview: - 09/30: Patient noted to have leucocytosis (WBC 11.34) on this morning labs which is likely secondary to Neulasta vs CKD vs steroid effect. He is afebrile without any signs or symptoms of infection and will continue to closely monitor. Neutropenic fever 08/20/2017 08/24/2017 Electrolyte imbalance 08/11/20172017 Overview: - Monitor daily labs and replete as needed Melena 08/09/2017 09/07/2017 Overview: - 08/08: Patient reporting dark brown/black stools upon admission and will get occult stool prior to restarting Xeralto to check for melena - 08/09: Occult stool positive, Dr. Sandra Cardenas notified and will arrange for colonoscopy (recent EGD was negative), order placed and scheduled for with patient to be on clear liquids at midnight on Tuesday with bowel prep starting Tuesday evening and NPO 2 hours prior to procedure on . - 08/13: No melena Encounter for chemotherapy management 08/08/2017 05/30/2018 Overview: - Cycle 6 DA-EPOCH. dose level -2 - Doxorubicin/Vincristine/Etoposide IV over 24 hr on D1-4; Cyclophosphamide IV over 1 hour on D5; Prednisone BID D1-5 - chemotherapy orders per Dr. Sandra Cardenas - consent in [facility] - monitor for toxicities - venous access: port - VTE ppx: on therapeutic AC with Xeralto - GI ppx: Protonix - ID ppx: Acylcovir, Bactrim, Fluconazole (D6-21) CINV (chemotherapy-induced n ausea and vomiting) 08/08/2017 05/30/2018 Overview: - Zofran 8 mg daily - Compazine 10 mg Q6H PRN Drug-induced constipation 08/08/2017 Overview: 2/2 Vincristine - Senna-S 2 tabs BID - Miralax daily PRN Plasma cell neoplasm 06/23/2017 020 Malignant neoplasm of urinary bladder 05/15/2017 08/27/2019 Acute DVT (deep venous thrombosis) 02/25/2017 08/27/2019 Overview: 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 with new acute DVT on 08/11/17 in RUE around PICC line in axilla and subclavian veins and new acute DVT in RLE posterior tibial vein and 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 - Xeralto 20 mg daily HTN (hypertension) 06/23/2016 0 Overview: - continue Carvedilol 6.25 daily - continue Amlodipine 5 mg daily - continue Lisinopril 20 daily - 12/13: Pt with increased BP, likely related to steroids Impaired fasting glucose 06/23/201602/2020 CKD (chronic kidney disease) stage 3, GFR 30-59 ml/min 06/23/2016 01/16/2021 Overview: Patient with hx of CKD stage 3 - avoid nephrotoxic medications - 12/09: on admission sCr up to 1.73, eGFR 39, received NS at 50 ml/hr - 12/10: Cr 1.63, close to baseline - 12/11: Cr 1.78 - 12/12: Cr 1.35 (stopped supplemental IVFs) - 12/13: Cr improved to 1.26 Pulmonary embolism 05/19/2009 0 Delirium 05/19/2009 05/30/2018 Acute renal failure 05/19/2009 08/27/19 20 Incontinence 05/19/2009 05/30/2018 Wound 05/19/2009 05/30/2018 Ileus 04/23/2009 09/07/2017 Malnutrition 04/23/2009 03/12/2020 DVT (deep venous thrombosis) 04/23/2009 08/27/2019 Malignant neoplasm of bladde r, part unspecified 11/08/2008 04/14/2009 documented as of this encounter (statuses as of 01/19/2023) [facility]2019 History of Past illness Narrative* Problem Noted Date Diagnosed Date Resolved Date Acute pain of right knee 01/17/201902/2020 Neck pain on right side 01/17/2019 03/0 02/2020 Thrombocytopenia 12/28/2017 05/30/2018 Fluid volume excess 12/13/2017 08/27/19 20 Overview: - pt with FVO (increased BLE edema, +20 lbs weight gain) , likely related to IVFs and steroids - stopped supplemental IVFs on 12/12 - will diurese with Lasix IV 20 mg today Anemia 11/11/2017 05/30/2018 Overview: - likely multifactorial related to chemotherapy, CKD, plasmablastic lymphoma - 12/10: Hb 7.9, recieved 1 unit PRBC - 12/11: Hb 8.9 - 12/12: Hb 8.1 - 12/13: Hb 8.0, will transfuse with 1 unit PRBC today for dropping Hb - will have CBC with diff drawn twice weekly Immunosuppression 10/21/2017 05/30/2018 Overview: Patient 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 difficile colitis 10/10/2017 018 Overview: Patient with watery diarrhea Found to have Cdiff Plan: Oral vancomycin Follow diarrhea Fluids as needed Pancytopenia 10/09/2017 12/09/2017 Overview: Patient s/p chemotherapy cycle 3 of dose adjusted R-EPOCH Given 1u pRBC that admission for chemo induced anemia Discharged 10/02 Follow up labs on 10/06 were significant for hgb 8.3 from 9.3, wbc 3.37 (ANC 3.1) from 5.26 (5) and plt 187 from 324 on 10/03. Patient given pegfilgrastim on 10/03 - wbc 0.2, hgb 7.9, plt 80 at OSH - follow trend of chemo induced pancytopenia - continue prophylaxis Acyclovir 400 mg BID; Bactrim DS MWF; Diflucan 200 mg daily (Day 6-21) Neutropenic fever 10/08/2017 10/12/2017 Overview: He was admitted following cycle 1 of chemo with neutropenic fever and bacteremia (with alpha-hemolytic streptococcus mitis/oralis likely secondary to GI translocation and completed a 14 day course of abx). WBC 0.2 (anc not reported) at OSH with temp >101. - given vancomycin and piperacillin/tazobactam at OSH Leukemoid reaction 09/30/2017 8 Overview: - 09/30: Patient noted to have leucocytosis (WBC 11.34) on this morning labs which is likely secondary to Neulasta vs CKD vs steroid effect. He is afebrile without any signs or symptoms of infection and will continue to closely monitor. Neutropenic fever 08/20/2017 08/24/2017 Electrolyte imbalance 08/11/20172017 Overview: - Monitor daily labs and replete as needed Melena 08/09/2017 09/07/2017 Overview: - 08/08: Patient reporting dark brown/black stools upon admission and will get occult stool prior to restarting Xeralto to check for melena - 08/09: Occult stool positive, Dr. Sandra Cardenas notified and will arrange for colonoscopy (recent EGD was negative), order placed and scheduled for with patient to be on clear liquids at midnight on Tuesday with bowel prep starting Tuesday evening and NPO 2 hours prior to procedure on . - 08/13: No melena Encounter for chemotherapy management 08/08/2017 05/30/2018 Overview: - Cycle 6 DA-EPOCH. dose level -2 - Doxorubicin/Vincristine/Etoposide IV over 24 hr on D1-4; Cyclophosphamide IV over 1 hour on D5; Prednisone BID D1-5 - chemotherapy orders per Dr. 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 with new acute DVT on 08/11/17 in RUE around PICC line in axilla and subclavian veins and new acute DVT in RLE posterior tibial vein and 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 - Xeralto 20 mg daily HTN (hypertension) 06/23/2016 0 Overview: - continue Carvedilol 6.25 daily - continue Amlodipine 5 mg daily - continue Lisinopril 20 daily - 12/13: Pt with increased BP, likely related to steroids Impaired fasting glucose 06/23/201602/2020 CKD (chronic kidney disease) stage 3, GFR 30-59 ml/min 06/23/2016 01/16/2021 Overview: Patient with hx of CKD stage 3 - avoid nephrotoxic medications - 12/09: on admission sCr up to 1.73, eGFR 39, received NS at 50 ml/hr - 12/10: Cr 1.63, close to baseline - 12/11: Cr 1.78 - 12/12: Cr 1.35 (stopped supplemental IVFs) - 12/13: Cr improved to 1.26 Pulmonary embolism 05/19/2009 0 Delirium 05/19/2009 05/30/2018 Acute renal failure 05/19/2009 08/27/19 20 Incontinence 05/19/2009 05/30/2018 Wound 05/19/2009 05/30/2018 Ileus 04/23/2009 09/07/2017 Malnutrition 04/23/2009 03/12/2020 DVT (deep venous thrombosis) 04/23/2009 08/27/2019 Malignant neoplasm of lia r, part unspecified 11/08/2008 04/14/2009 documented as of this encounter (statuses as of 01/25/2023) [facility]07-31-2019 History of Past illness Narrative* Problem Noted Date Diagnosed Date Resolved Date Acute pain of right knee 01/17/201902/2020 Neck pain on right side 01/17/2019 03/0 02/2020 Thrombocytopenia 12/28/2017 05/30/2018 Fluid volume excess 12/13/2017 08/27/19 20 Overview: - pt with FVO (increased BLE edema, +20 lbs weight gain) , likely related to IVFs and steroids - stopped supplemental IVFs on 12/12 - will diurese with Lasix IV 20 mg today Anemia 11/11/2017 05/30/2018 Overview: - likely multifactorial related to chemotherapy, CKD, plasmablastic lymphoma - 12/10: Hb 7.9, recieved 1 unit PRBC - 12/11: Hb 8.9 - 12/12: Hb 8.1 - 12/13: Hb 8.0, will transfuse with 1 unit PRBC today for dropping Hb - will have CBC with diff drawn twice weekly Immunosuppression 10/21/2017 05/30/2018 Overview: Patient 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 difficile colitis 10/10/2017 018 Overview: Patient with watery diarrhea Found to have Cdiff Plan: Oral vancomycin Follow diarrhea Fluids as needed Pancytopenia 10/09/2017 12/09/2017 Overview: Patient s/p chemotherapy cycle 3 of dose adjusted R-EPOCH Given 1u pRBC that admission for chemo induced anemia Discharged 10/02 Follow up labs on 10/06 were significant for hgb 8.3 from 9.3, wbc 3.37 (ANC 3.1) from 5.26 (5) and plt 187 from 324 on 10/03. Patient given pegfilgrastim on 10/03 - wbc 0.2, hgb 7.9, plt 80 at OSH - follow trend of chemo induced pancytopenia - continue prophylaxis Acyclovir 400 mg BID; Bactrim DS MWF; Diflucan 200 mg daily (Day 6-21) Neutropenic fever 10/08/2017 10/12/2017 Overview: He was admitted following cycle 1 of chemo with neutropenic fever and bacteremia (with alpha-hemolytic streptococcus mitis/oralis likely secondary to GI translocation and completed a 14 day course of abx). WBC 0.2 (anc not reported) at OSH with temp >101. - given vancomycin and piperacillin/tazobactam at OSH Leukemoid reaction 09/30/2017 8 Overview: - 09/30: Patient noted to have leucocytosis (WBC 11.34) on this morning labs which is likely secondary to Neulasta vs CKD vs steroid effect. He is afebrile without any signs or symptoms of infection and will continue to closely monitor. Neutropenic fever 08/20/2017 08/24/2017 Electrolyte imbalance 08/11/20172017 Overview: - Monitor daily labs and replete as needed Melena 08/09/2017 09/07/2017 Overview: - 08/08: Patient reporting dark brown/black stools upon admission and will get occult stool prior to restarting Xeralto to check for melena - 08/09: Occult stool positive, Dr. Sandra Cardenas notified and will arrange for colonoscopy (recent EGD was negative), order placed and scheduled for with patient to be on clear liquids at midnight on Tuesday with bowel prep starting Tuesday evening and NPO 2 hours prior to procedure on . - 08/13: No melena Encounter for chemotherapy management 08/08/2017 05/30/2018 Overview: - Cycle 6 DA-EPOCH. dose level -2 - Doxorubicin/Vincristine/Etoposide IV over 24 hr on D1-4; Cyclophosphamide IV over 1 hour on D5; Prednisone BID D1-5 - chemotherapy orders per Dr. 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 with new acute DVT on 08/11/17 in RUE around PICC line in axilla and subclavian veins and new acute DVT in RLE posterior tibial vein and 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 - Xeralto 20 mg daily HTN (hypertension) 06/23/2016 0 Overview: - continue Carvedilol 6.25 daily - continue Amlodipine 5 mg daily - continue Lisinopril 20 daily - 12/13: Pt with increased BP, likely related to steroids Impaired fasting glucose 06/23/201602/2020 CKD (chronic kidney disease) stage 3, GFR 30-59 ml/min 06/23/2016 01/16/2021 Overview: Patient with hx of CKD stage 3 - avoid nephrotoxic medications - 12/09: on admission sCr up to 1.73, eGFR 39, received NS at 50 ml/hr - 12/10: Cr 1.63, close to baseline - 12/11: Cr 1.78 - 12/12: Cr 1.35 (stopped supplemental IVFs) - 12/13: Cr improved to 1.26 Pulmonary embolism 05/19/2009 0 Delirium 05/19/2009 05/30/2018 Acute renal failure 05/19/2009 08/27/19 20 Incontinence 05/19/2009 05/30/2018 Wound 05/19/2009 05/30/2018 Ileus 04/23/2009 09/07/2017 Malnutrition 04/23/2009 03/12/2020 DVT (deep venous thrombosis) 04/23/2009 08/27/2019 Malignant neoplasm of blajonase r, part unspecified 11/08/2008 04/14/2009 documented as of this encounter (statuses as of 02/12/2023) [facility]2019 History of Past illness Narrative* Problem Noted Date Diagnosed Date Resolved Date Acute pain of right knee 01/17/201902/2020 Neck pain on right side 01/17/2019 03/0 02/2020 Thrombocytopenia 12/28/2017 05/30/2018 Fluid volume excess 12/13/2017 08/27/19 20 Overview: - pt with FVO (increased BLE edema, +20 lbs weight gain) , likely related to IVFs and steroids - stopped supplemental IVFs on 12/12 - will diurese with Lasix IV 20 mg today Anemia 11/11/2017 05/30/2018 Overview: - likely multifactorial related to chemotherapy, CKD, plasmablastic lymphoma - 12/10: Hb 7.9, recieved 1 unit PRBC - 12/11: Hb 8.9 - 12/12: Hb 8.1 - 12/13: Hb 8.0, will transfuse with 1 unit PRBC today for dropping Hb - will have CBC with diff drawn twice weekly Immunosuppression 10/21/2017 05/30/2018 Overview: Patient 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 difficile colitis 10/10/2017 018 Overview: Patient with watery diarrhea Found to have Cdiff Plan: Oral vancomycin Follow diarrhea Fluids as needed Pancytopenia 10/09/2017 12/09/2017 Overview: Patient s/p chemotherapy cycle 3 of dose adjusted R-EPOCH Given 1u pRBC that admission for chemo induced anemia Discharged 10/02 Follow up labs on 10/06 were significant for hgb 8.3 from 9.3, wbc 3.37 (ANC 3.1) from 5.26 (5) and plt 187 from 324 on 10/03. Patient given pegfilgrastim on 10/03 - wbc 0.2, hgb 7.9, plt 80 at OSH - follow trend of chemo induced pancytopenia - continue prophylaxis Acyclovir 400 mg BID; Bactrim DS MWF; Diflucan 200 mg daily (Day 6-21) Neutropenic fever 10/08/2017 10/12/2017 Overview: He was admitted following cycle 1 of chemo with neutropenic fever and bacteremia (with alpha-hemolytic streptococcus mitis/oralis likely secondary to GI translocation and completed a 14 day course of abx). WBC 0.2 (anc not reported) at OSH with temp >101. - given vancomycin and piperacillin/tazobactam at OSH Leukemoid reaction 09/30/2017 8 Overview: - 09/30: Patient noted to have leucocytosis (WBC 11.34) on this morning labs which is likely secondary to Neulasta vs CKD vs steroid effect. He is afebrile without any signs or symptoms of infection and will continue to closely monitor. Neutropenic fever 08/20/2017 08/24/2017 Electrolyte imbalance 08/11/20172017 Overview: - Monitor daily labs and replete as needed Melena 08/09/2017 09/07/2017 Overview: - 08/08: Patient reporting dark brown/black stools upon admission and will get occult stool prior to restarting Xeralto to check for melena - 08/09: Occult stool positive, Dr. Sandra Cardenas notified and will arrange for colonoscopy (recent EGD was negative), order placed and scheduled for with patient to be on clear liquids at midnight on Tuesday with bowel prep starting Tuesday evening and NPO 2 hours prior to procedure on . - 08/13: No melena Encounter for chemotherapy management 08/08/2017 05/30/2018 Overview: - Cycle 6 DA-EPOCH. dose level -2 - Doxorubicin/Vincristine/Etoposide IV over 24 hr on D1-4; Cyclophosphamide IV over 1 hour on D5; Prednisone BID D1-5 - chemotherapy orders per Dr. 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 with new acute DVT on 08/11/17 in RUE around PICC line in axilla and subclavian veins and new acute DVT in RLE posterior tibial vein and 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 - Xeralto 20 mg daily HTN (hypertension) 06/23/2016 0 Overview: - continue Carvedilol 6.25 daily - continue Amlodipine 5 mg daily - continue Lisinopril 20 daily - 12/13: Pt with increased BP, likely related to steroids Impaired fasting glucose 06/23/201602/2020 CKD (chronic kidney disease) stage 3, GFR 30-59 ml/min 06/23/2016 01/16/2021 Overview: Patient with hx of CKD stage 3 - avoid nephrotoxic medications - 12/09: on admission sCr up to 1.73, eGFR 39, received NS at 50 ml/hr - 12/10: Cr 1.63, close to baseline - 12/11: Cr 1.78 - 12/12: Cr 1.35 (stopped supplemental IVFs) - 12/13: Cr improved to 1.26 Pulmonary embolism 05/19/2009 0 Delirium 05/19/2009 05/30/2018 Acute renal failure 05/19/2009 08/27/19 20 Incontinence 05/19/2009 05/30/2018 Wound 05/19/2009 05/30/2018 Ileus 04/23/2009 09/07/2017 Malnutrition 04/23/2009 03/12/2020 DVT (deep venous thrombosis) 04/23/2009 08/27/2019 Malignant neoplasm of bladde r, part unspecified 11/08/2008 04/14/2009 documented as of this encounter (statuses as of 02/28/2023) [facility]2019 History of Past illness Narrative* Problem Noted Date Diagnosed Date Resolved Date Acute pain of right knee 01/17/201902/2020 Neck pain on right side 01/17/2019 03/0 02/2020 Thrombocytopenia 12/28/2017 05/30/2018 Fluid volume excess 12/13/2017 08/27/19 20 Overview: - pt with FVO (increased BLE edema, +20 lbs weight gain) , likely related to IVFs and steroids - stopped supplemental IVFs on 12/12 - will diurese with Lasix IV 20 mg today Anemia 11/11/2017 05/30/2018 Overview: - likely multifactorial related to chemotherapy, CKD, plasmablastic lymphoma - 12/10: Hb 7.9, recieved 1 unit PRBC - 12/11: Hb 8.9 - 12/12: Hb 8.1 - 12/13: Hb 8.0, will transfuse with 1 unit PRBC today for dropping Hb - will have CBC with diff drawn twice weekly Immunosuppression 10/21/2017 05/30/2018 Overview: Patient 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 difficile colitis 10/10/2017 018 Overview: Patient with watery diarrhea Found to have Cdiff Plan: Oral vancomycin Follow diarrhea Fluids as needed Pancytopenia 10/09/2017 12/09/2017 Overview: Patient s/p chemotherapy cycle 3 of dose adjusted R-EPOCH Given 1u pRBC that admission for chemo induced anemia Discharged 10/02 Follow up labs on 10/06 were significant for hgb 8.3 from 9.3, wbc 3.37 (ANC 3.1) from 5.26 (5) and plt 187 from 324 on 10/03. Patient given pegfilgrastim on 10/03 - wbc 0.2, hgb 7.9, plt 80 at OSH - follow trend of chemo induced pancytopenia - continue prophylaxis Acyclovir 400 mg BID; Bactrim DS MWF; Diflucan 200 mg daily (Day 6-21) Neutropenic fever (HCC) 10/08/201709/19 Overview: He was admitted following cycle 1 of chemo with neutropenic fever and bacteremia (with alpha-hemolytic streptococcus mitis/oralis likely secondary to GI translocation and completed a 14 day course of abx). WBC 0.2 (anc not reported) at OSH with temp >101. - given vancomycin and piperacillin/tazobactam at OSH Leukemoid reaction 09/30/2017 8 Overview: - 09/30: Patient noted to have leucocytosis (WBC 11.34) on this morning labs which is likely secondary to Neulasta vs CKD vs steroid effect. He is afebrile without any signs or symptoms of infection and will continue to closely monitor. Neutropenic fever (HCC) 08/20/201712/2017 Electrolyte imbalance 08/11/20172017 Overview: - Monitor daily labs and replete as needed Melena 08/09/2017 09/07/2017 Overview: - 08/08: Patient reporting dark brown/black stools upon admission and will get occult stool prior to restarting Xeralto to check for melena - 08/09: Occult stool positive, Dr. Sandra Cardenas notified and will arrange for colonoscopy (recent EGD was negative), order placed and scheduled for with patient to be on clear liquids at midnight on Tuesday with bowel prep starting Tuesday evening and NPO 2 hours prior to procedure on . - 08/13: No melena Encounter for chemotherapy management 08/08/2017 05/30/2018 Overview: - Cycle 6 DA-EPOCH. dose level -2 - Doxorubicin/Vincristine/Etoposide IV over 24 hr on D1-4; Cyclophosphamide IV over 1 hour on D5; Prednisone BID D1-5 - chemotherapy orders per Dr. Sandra Cardenas - consent in [facility] - monitor for toxicities - venous access: port - VTE ppx: on therapeutic AC with Xeralto - GI ppx: Protonix - ID ppx: Acylcovir, Bactrim, Fluconazole (D6-21) CINV (chemotherapy-induced n ausea and vomiting) 08/08/2017 05/30/2018 Overview: - Zofran 8 mg daily - Compazine 10 mg Q6H PRN Drug-induced constipation 08/08/2017 Overview: 2/ Vincristine - Senna-S 2 tabs BID - Miralax daily PRN Plasma cell neoplasm 06/23/2017 020 Malignant neoplasm of urinary bladder 05/15/2017 08/27/2019 Acute DVT (deep venous thrombosis) 02/25/2017 08/27/2019 Overview: 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 with new acute DVT on 08/11/17 in RUE around PICC line in axilla and subclavian veins and new acute DVT in RLE posterior tibial vein and 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 - Xeralto 20 mg daily HTN (hypertension) 06/23/2016 0 Overview: - continue Carvedilol 6.25 daily - continue Amlodipine 5 mg daily - continue Lisinopril 20 daily - 12/13: Pt with increased BP, likely related to steroids Impaired fasting glucose 06/23/201602/2020 CKD (chronic kidney disease) stage 3, GFR 30-59 ml/min 06/23/2016 01/16/2021 Overview: Patient with hx of CKD stage 3 - avoid nephrotoxic medications - 12/09: on admission sCr up to 1.73, eGFR 39, received NS at 50 ml/hr - 12/10: Cr 1.63, close to baseline - 12/11: Cr 1.78 - 12/12: Cr 1.35 (stopped supplemental IVFs) - 12/13: Cr improved to 1.26 Pulmonary embolism 05/19/2009 0 Delirium 05/19/2009 05/30/2018 Acute renal failure 05/19/2009 08/27/19 20 Incontinence 05/19/2009 05/30/2018 Wound 05/19/2009 05/30/2018 Ileus 04/23/2009 09/07/2017 Malnutrition 04/23/2009 03/12/2020 DVT (deep venous thrombosis) 04/23/2009 08/27/2019 Malignant neoplasm of bladde r, part unspecified 11/08/2008 04/14/2009 documented as of this encounter (statuses as of 03/26/2023) [facility]2019 History of Past illness Narrative* Problem Noted Date Diagnosed Date Resolved Date Acute pain of right knee 01/17/201902/2020 Neck pain on right side 01/17/2019 03/0 02/2020 Thrombocytopenia 12/28/2017 05/30/2018 Fluid volume excess 12/13/2017 08/27/19 20 Overview: - pt with FVO (increased BLE edema, +20 lbs weight gain) , likely related to IVFs and steroids - stopped supplemental IVFs on 12/12 - will diurese with Lasix IV 20 mg today Anemia 11/11/2017 05/30/2018 Overview: - likely multifactorial related to chemotherapy, CKD, plasmablastic lymphoma - 12/10: Hb 7.9, recieved 1 unit PRBC - 12/11: Hb 8.9 - 12/12: Hb 8.1 - 12/13: Hb 8.0, will transfuse with 1 unit PRBC today for dropping Hb - will have CBC with diff drawn twice weekly Immunosuppression 10/21/2017 05/30/2018 Overview: Patient 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 difficile colitis 10/10/2017 018 Overview: Patient with watery diarrhea Found to have Cdiff Plan: Oral vancomycin Follow diarrhea Fluids as needed Pancytopenia 10/09/2017 12/09/2017 Overview: Patient s/p chemotherapy cycle 3 of dose adjusted R-EPOCH Given 1u pRBC that admission for chemo induced anemia Discharged 10/02 Follow up labs on 10/06 were significant for hgb 8.3 from 9.3, wbc 3.37 (ANC 3.1) from 5.26 (5) and plt 187 from 324 on 10/03. Patient given pegfilgrastim on 10/03 - wbc 0.2, hgb 7.9, plt 80 at OSH - follow trend of chemo induced pancytopenia - continue prophylaxis Acyclovir 400 mg BID; Bactrim DS MWF; Diflucan 200 mg daily (Day 6-21) Neutropenic fever (HCC) 10/08/201709/19 Overview: He was admitted following cycle 1 of chemo with neutropenic fever and bacteremia (with alpha-hemolytic streptococcus mitis/oralis likely secondary to GI translocation and completed a 14 day course of abx). WBC 0.2 (anc not reported) at OSH with temp >101. - given vancomycin and piperacillin/tazobactam at OSH Leukemoid reaction 09/30/2017 8 Overview: - 09/30: Patient noted to have leucocytosis (WBC 11.34) on this morning labs which is likely secondary to Neulasta vs CKD vs steroid effect. He is afebrile without any signs or symptoms of infection and will continue to closely monitor. Neutropenic fever (HCC) 08/20/201712/2017 Electrolyte imbalance 08/11/20172017 Overview: - Monitor daily labs and replete as needed Melena 08/09/2017 09/07/2017 Overview: - 08/08: Patient reporting dark brown/black stools upon admission and will get occult stool prior to restarting Xeralto to check for melena - 08/09: Occult stool positive, Dr. Sandra Cardenas notified and will arrange for colonoscopy (recent EGD was negative), order placed and scheduled for with patient to be on clear liquids at midnight on Tuesday with bowel prep starting Tuesday evening and NPO 2 hours prior to procedure on . - 08/13: No melena Encounter for chemotherapy management 08/08/2017 05/30/2018 Overview: - Cycle 6 DA-EPOCH. dose level -2 - Doxorubicin/Vincristine/Etoposide IV over 24 hr on D1-4; Cyclophosphamide IV over 1 hour on D5; Prednisone BID D1-5 - chemotherapy orders per Dr. Sandra Cardenas - consent in [facility] - monitor for toxicities - venous access: port - VTE ppx: on therapeutic AC with Xeralto - GI ppx: Protonix - ID ppx: Acylcovir, Bactrim, Fluconazole (D6-21) CINV (chemotherapy-induced n ausea and vomiting) 08/08/2017 05/30/2018 Overview: - Zofran 8 mg daily - Compazine 10 mg Q6H PRN Drug-induced constipation 08/08/2017 Overview: 07/22 Vincristine - Senna-S 2 tabs BID - Miralax daily PRN Plasma cell neoplasm 06/23/2017 020 Malignant neoplasm of urinary bladder 05/15/2017 08/27/2019 Acute DVT (deep venous thrombosis) 02/25/2017 08/27/2019 Overview: 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 with new acute DVT on 08/11/17 in RUE around PICC line in axilla and subclavian veins and new acute DVT in RLE posterior tibial vein and 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 - Xeralto 20 mg daily HTN (hypertension) 06/23/2016 0 Overview: - continue Carvedilol 6.25 daily - continue Amlodipine 5 mg daily - continue Lisinopril 20 daily - 12/13: Pt with increased BP, likely related to steroids Impaired fasting glucose 06/23/201602/2020 CKD (chronic kidney disease) stage 3, GFR 30-59 ml/min 06/23/2016 01/16/2021 Overview: Patient with hx of CKD stage 3 - avoid nephrotoxic medications - 12/09: on admission sCr up to 1.73, eGFR 39, received NS at 50 ml/hr - 12/10: Cr 1.63, close to baseline - 12/11: Cr 1.78 - 12/12: Cr 1.35 (stopped supplemental IVFs) - 12/13: Cr improved to 1.26 Pulmonary embolism 05/19/2009 0 Delirium 05/19/2009 05/30/2018 Acute renal failure 05/19/2009 08/27/19 20 Incontinence 05/19/2009 05/30/2018 Wound 05/19/2009 05/30/2018 Ileus 04/23/2009 09/07/2017 Malnutrition 04/23/2009 03/12/2020 DVT (deep venous thrombosis) 04/23/2009 08/27/2019 Malignant neoplasm of bladde r, part unspecified 11/08/2008 04/14/2009 documented as of this encounter (statuses as of 03/29/2023) [facility]2019 History of Past illness Narrative* Problem Noted Date Diagnosed Date Resolved Date Acute pain of right knee 01/17/201902/2020 Neck pain on right side 01/17/2019 03/0 02/2020 Thrombocytopenia 12/28/2017 05/30/2018 Fluid volume excess 12/13/2017 08/27/19 20 Overview: - pt with FVO (increased BLE edema, +20 lbs weight gain) , likely related to IVFs and steroids - stopped supplemental IVFs on 12/12 - will diurese with Lasix IV 20 mg today Anemia 11/11/2017 05/30/2018 Overview: - likely multifactorial related to chemotherapy, CKD, plasmablastic lymphoma - 12/10: Hb 7.9, recieved 1 unit PRBC - 12/11: Hb 8.9 - 12/12: Hb 8.1 - 12/13: Hb 8.0, will transfuse with 1 unit PRBC today for dropping Hb - will have CBC with diff drawn twice weekly Immunosuppression 10/21/2017 05/30/2018 Overview: Patient 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 difficile colitis 10/10/2017 018 Overview: Patient with watery diarrhea Found to have Cdiff Plan: Oral vancomycin Follow diarrhea Fluids as needed Pancytopenia 10/09/2017 12/09/2017 Overview: Patient s/p chemotherapy cycle 3 of dose adjusted R-EPOCH Given 1u pRBC that admission for chemo induced anemia Discharged 10/02 Follow up labs on 10/06 were significant for hgb 8.3 from 9.3, wbc 3.37 (ANC 3.1) from 5.26 (5) and plt 187 from 324 on 10/03. Patient given pegfilgrastim on 10/03 - wbc 0.2, hgb 7.9, plt 80 at OSH - follow trend of chemo induced pancytopenia - continue prophylaxis Acyclovir 400 mg BID; Bactrim DS MWF; Diflucan 200 mg daily (Day 6-21) Neutropenic fever (HCC) 10/08/201709/19 Overview: He was admitted following cycle 1 of chemo with neutropenic fever and bacteremia (with alpha-hemolytic streptococcus mitis/oralis likely secondary to GI translocation and completed a 14 day course of abx). WBC 0.2 (anc not reported) at OSH with temp >101. - given vancomycin and piperacillin/tazobactam at OSH Leukemoid reaction 09/30/2017 Overview: - 09/30: Patient noted to have leucocytosis (WBC 11.34) on this morning labs which is likely secondary to Neulasta vs CKD vs steroid effect. He is afebrile without any signs or symptoms of infection and will continue to closely monitor. Neutropenic fever (HCC) 08/20/201712/2017 Electrolyte imbalance 08/11/20172017 Overview: - Monitor daily labs and replete as needed Melena 08/09/2017 09/07/2017 Overview: - 08/08: Patient reporting dark brown/black stools upon admission and will get occult stool prior to restarting Xeralto to check for melena - 08/09: Occult stool positive, Dr. Sandra Cardenas notified and will arrange for colonoscopy (recent EGD was negative), order placed and scheduled for with patient to be on clear liquids at midnight on Tuesday with bowel prep starting Tuesday evening and NPO 2 hours prior to procedure on . - 08/13: No melena Encounter for chemotherapy management 08/08/2017 05/30/2018 Overview: - Cycle 6 DA-EPOCH. dose level -2 - Doxorubicin/Vincristine/Etoposide IV over 24 hr on D1-4; Cyclophosphamide IV over 1 hour on D5; Prednisone BID D1-5 - chemotherapy orders per Dr. Sandra Cardenas - consent in [facility] - monitor for toxicities - venous access: port - VTE ppx: on therapeutic AC with Xeralto - GI ppx: Protonix - ID ppx: Acylcovir, Bactrim, Fluconazole (D6-21) CINV (chemotherapy-induced n ausea and vomiting) 08/08/2017 05/30/2018 Overview: - Zofran 8 mg daily - Compazine 10 mg Q6H PRN Drug-induced constipation 08/08/2017 Overview: / Vincristine - Senna-S 2 tabs BID - Miralax daily PRN Plasma cell neoplasm 06/23/2017 020 Malignant neoplasm of urinary bladder 05/15/2017 08/27/2019 Acute DVT (deep venous thrombosis) 02/25/2017 08/27/2019 Overview: 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 with new acute DVT on 08/11/17 in RUE around PICC line in axilla and subclavian veins and new acute DVT in RLE posterior tibial vein and 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 - Xeralto 20 mg daily HTN (hypertension) 06/23/2016 0 Overview: - continue Carvedilol 6.25 daily - continue Amlodipine 5 mg daily - continue Lisinopril 20 daily - 12/13: Pt with increased BP, likely related to steroids Impaired fasting glucose 06/23/201602/2020 CKD (chronic kidney disease) stage 3, GFR 30-59 ml/min 06/23/2016 01/16/2021 Overview: Patient with hx of CKD stage 3 - avoid nephrotoxic medications - 12/09: on admission sCr up to 1.73, eGFR 39, received NS at 50 ml/hr - 12/10: Cr 1.63, close to baseline - 12/11: Cr 1.78 - 12/12: Cr 1.35 (stopped supplemental IVFs) - 12/13: Cr improved to 1.26 Pulmonary embolism 05/19/2009 0 Delirium 05/19/2009 05/30/2018 Acute renal failure 05/19/2009 08/27/19 20 Incontinence 05/19/2009 05/30/2018 Wound 05/19/2009 05/30/2018 Ileus 04/23/2009 09/07/2017 Malnutrition 04/23/2009 03/12/2020 DVT (deep venous thrombosis) 04/23/2009 08/27/2019 Malignant neoplasm of bladde r, part unspecified 11/08/2008 04/14/2009 documented as of this encounter (statuses as of 04/01/2023) [facility]07-31-2019 History of Past illness Narrative* Problem Noted Date Diagnosed Date Resolved Date Acute pain of right knee 01/17/201902/2020 Neck pain on right side 01/17/2019 03/0 02/2020 Thrombocytopenia 12/28/2017 05/30/2018 Fluid volume excess 12/13/2017 08/27/19 20 Overview: - pt with FVO (increased BLE edema, +20 lbs weight gain) , likely related to IVFs and steroids - stopped supplemental IVFs on 12/12 - will diurese with Lasix IV 20 mg today Anemia 11/11/2017 05/30/2018 Overview: - likely multifactorial related to chemotherapy, CKD, plasmablastic lymphoma - 12/10: Hb 7.9, recieved 1 unit PRBC - 12/11: Hb 8.9 - 12/12: Hb 8.1 - 12/13: Hb 8.0, will transfuse with 1 unit PRBC today for dropping Hb - will have CBC with diff drawn twice weekly Immunosuppression 10/21/2017 05/30/2018 Overview: Patient 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 difficile colitis 10/10/2017 018 Overview: Patient with watery diarrhea Found to have Cdiff Plan: Oral vancomycin Follow diarrhea Fluids as needed Pancytopenia 10/09/2017 12/09/2017 Overview: Patient s/p chemotherapy cycle 3 of dose adjusted R-EPOCH Given 1u pRBC that admission for chemo induced anemia Discharged 10/02 Follow up labs on 10/06 were significant for hgb 8.3 from 9.3, wbc 3.37 (ANC 3.1) from 5.26 (5) and plt 187 from 324 on 10/03. Patient given pegfilgrastim on 10/03 - wbc 0.2, hgb 7.9, plt 80 at OSH - follow trend of chemo induced pancytopenia - continue prophylaxis Acyclovir 400 mg BID; Bactrim DS MWF; Diflucan 200 mg daily (Day 6-21) Neutropenic fever (HCC) 10/08/201709/19 Overview: He was admitted following cycle 1 of chemo with neutropenic fever and bacteremia (with alpha-hemolytic streptococcus mitis/oralis likely secondary to GI translocation and completed a 14 day course of abx). WBC 0.2 (anc not reported) at OSH with temp >101. - given vancomycin and piperacillin/tazobactam at OSH Leukemoid reaction 09/30/2017 8 Overview: - 09/30: Patient noted to have leucocytosis (WBC 11.34) on this morning labs which is likely secondary to Neulasta vs CKD vs steroid effect. He is afebrile without any signs or symptoms of infection and will continue to closely monitor. Neutropenic fever (HCC) 08/20/2017 03/0 12/2017 Electrolyte imbalance 08/11/20172017 Overview: - Monitor daily labs and replete as needed Melena 08/09/2017 09/07/2017 Overview: - 08/08: Patient reporting dark brown/black stools upon admission and will get occult stool prior to restarting Xeralto to check for melena - 08/09: Occult stool positive, Dr. Sandra Cardenas notified and will arrange for colonoscopy (recent EGD was negative), order placed and scheduled for with patient to be on clear liquids at midnight on Tuesday with bowel prep starting Tuesday evening and NPO 2 hours prior to procedure on . - 08/13: No melena Encounter for chemotherapy management 08/08/2017 05/30/2018 Overview: - Cycle 6 DA-EPOCH. dose level -2 - Doxorubicin/Vincristine/Etoposide IV over 24 hr on D1-4; Cyclophosphamide IV over 1 hour on D5; Prednisone BID D1-5 - chemotherapy orders per Dr. Sandra Cardenas - consent in [facility] - monitor for toxicities - venous access: port - VTE ppx: on therapeutic AC with Xeralto - GI ppx: Protonix - ID ppx: Acylcovir, Bactrim, Fluconazole (D6-21) CINV (chemotherapy-induced n ausea and vomiting) 08/08/2017 05/30/2018 Overview: - Zofran 8 mg daily - Compazine 10 mg Q6H PRN Drug-induced constipation 08/08/2017 Overview: 2/ Vincristine - Senna-S 2 tabs BID - Miralax daily PRN Plasma cell neoplasm 06/23/2017 020 Malignant neoplasm of urinary bladder 05/15/2017 08/27/2019 Acute DVT (deep venous thrombosis) 02/25/2017 08/27/2019 Overview: 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 with new acute DVT on 08/11/17 in RUE around PICC line in axilla and subclavian veins and new acute DVT in RLE posterior tibial vein and 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 - Xeralto 20 mg daily HTN (hypertension) 06/23/2016 0 Overview: - continue Carvedilol 6.25 daily - continue Amlodipine 5 mg daily - continue Lisinopril 20 daily - 12/13: Pt with increased BP, likely related to steroids Impaired fasting glucose 06/23/201602/2020 CKD (chronic kidney disease) stage 3, GFR 30-59 ml/min 06/23/2016 01/16/2021 Overview: Patient with hx of CKD stage 3 - avoid nephrotoxic medications - 12/09: on admission sCr up to 1.73, eGFR 39, received NS at 50 ml/hr - 12/10: Cr 1.63, close to baseline - 12/11: Cr 1.78 - 12/12: Cr 1.35 (stopped supplemental IVFs) - 12/13: Cr improved to 1.26 Pulmonary embolism 05/19/2009 0 Delirium 05/19/2009 05/30/2018 Acute renal failure 05/19/2009 08/27/19 20 Incontinence 05/19/2009 05/30/2018 Wound 05/19/2009 05/30/2018 Ileus 04/23/2009 09/07/2017 Malnutrition 04/23/2009 03/12/2020 DVT (deep venous thrombosis) 04/23/2009 08/27/2019 Malignant neoplasm of bladde r, part unspecified 11/08/2008 04/14/2009 documented as of this encounter (statuses as of 04/06/2023) [facility]-2019 History of Past illness Narrative* Problem Noted Date Diagnosed Date Resolved Date Acute pain of right knee 01/17/201902/2020 Neck pain on right side 01/17/2019 03/0 02/2020 Thrombocytopenia 12/28/2017 05/30/2018 Fluid volume excess 12/13/2017 08/27/19 20 Overview: - pt with FVO (increased BLE edema, +20 lbs weight gain) , likely related to IVFs and steroids - stopped supplemental IVFs on 12/12 - will diurese with Lasix IV 20 mg today Anemia 11/11/2017 05/30/2018 Overview: - likely multifactorial related to chemotherapy, CKD, plasmablastic lymphoma - 12/10: Hb 7.9, recieved 1 unit PRBC - 12/11: Hb 8.9 - 12/12: Hb 8.1 - 12/13: Hb 8.0, will transfuse with 1 unit PRBC today for dropping Hb - will have CBC with diff drawn twice weekly Immunosuppression 10/21/2017 05/30/2018 Overview: Patient 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 difficile colitis 10/10/2017 018 Overview: Patient with watery diarrhea Found to have Cdiff Plan: Oral vancomycin Follow diarrhea Fluids as needed Pancytopenia 10/09/2017 12/09/2017 Overview: Patient s/p chemotherapy cycle 3 of dose adjusted R-EPOCH Given 1u pRBC that admission for chemo induced anemia Discharged 10/02 Follow up labs on 10/06 were significant for hgb 8.3 from 9.3, wbc 3.37 (ANC 3.1) from 5.26 (5) and plt 187 from 324 on 10/03. Patient given pegfilgrastim on 10/03 - wbc 0.2, hgb 7.9, plt 80 at OSH - follow trend of chemo induced pancytopenia - continue prophylaxis Acyclovir 400 mg BID; Bactrim DS MWF; Diflucan 200 mg daily (Day 6-21) Neutropenic fever (HCC) 10/08/201709/19 Overview: He was admitted following cycle 1 of chemo with neutropenic fever and bacteremia (with alpha-hemolytic streptococcus mitis/oralis likely secondary to GI translocation and completed a 14 day course of abx). WBC 0.2 (anc not reported) at OSH with temp >101. - given vancomycin and piperacillin/tazobactam at OSH Leukemoid reaction 09/30/2017 8 Overview: - 09/30: Patient noted to have leucocytosis (WBC 11.34) on this morning labs which is likely secondary to Neulasta vs CKD vs steroid effect. He is afebrile without any signs or symptoms of infection and will continue to closely monitor. Neutropenic fever (HCC) 08/20/2017 03/0 12/2017 Electrolyte imbalance 08/11/20172017 Overview: - Monitor daily labs and replete as needed Melena 08/09/2017 09/07/2017 Overview: - 08/08: Patient reporting dark brown/black stools upon admission and will get occult stool prior to restarting Xeralto to check for melena - 08/09: Occult stool positive, Dr. Sandra Cardenas notified and will arrange for colonoscopy (recent EGD was negative), order placed and scheduled for with patient to be on clear liquids at midnight on Tuesday with bowel prep starting Tuesday evening and NPO 2 hours prior to procedure on . - 08/13: No melena Encounter for chemotherapy management 08/08/2017 05/30/2018 Overview: - Cycle 6 DA-EPOCH. dose level -2 - Doxorubicin/Vincristine/Etoposide IV over 24 hr on D1-4; Cyclophosphamide IV over 1 hour on D5; Prednisone BID D1-5 - chemotherapy orders per Dr. 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 with new acute DVT on 08/11/17 in RUE around PICC line in axilla and subclavian veins and new acute DVT in RLE posterior tibial vein and 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 - Xeralto 20 mg daily HTN (hypertension) 06/23/2016 0 Overview: - continue Carvedilol 6.25 daily - continue Amlodipine 5 mg daily - continue Lisinopril 20 daily - 12/13: Pt with increased BP, likely related to steroids Impaired fasting glucose 06/23/201602/2020 CKD (chronic kidney disease) stage 3, GFR 30-59 ml/min 06/23/2016 01/16/2021 Overview: Patient with hx of CKD stage 3 - avoid nephrotoxic medications - 12/09: on admission sCr up to 1.73, eGFR 39, received NS at 50 ml/hr - 12/10: Cr 1.63, close to baseline - 12/11: Cr 1.78 - 12/12: Cr 1.35 (stopped supplemental IVFs) - 12/13: Cr improved to 1.26 Pulmonary embolism 05/19/2009 0 Delirium 05/19/2009 05/30/2018 Acute renal failure 05/19/2009 08/27/19 20 Incontinence 05/19/2009 05/30/2018 Wound 05/19/2009 05/30/2018 Ileus 04/23/2009 09/07/2017 Malnutrition 04/23/2009 03/12/2020 DVT (deep venous thrombosis) 04/23/2009 08/27/2019 Malignant neoplasm of bladde r, part unspecified 11/08/2008 04/14/2009 documented as of this encounter (statuses as of 04/14/2023) [facility]2019 History of Past illness Narrative* Problem Noted Date Diagnosed Date Resolved Date Acute pain of right knee 01/17/201902/2020 Neck pain on right side 01/17/2019 03/02/2020 Thrombocytopenia 12/28/2017 05/30/2018 Fluid volume excess 12/13/2017 08/27/19 20 Overview: - pt with FVO (increased BLE edema, +20 lbs weight gain) , likely related to IVFs and steroids - stopped supplemental IVFs on 12/12 - will diurese with Lasix IV 20 mg today Anemia 11/11/2017 05/30/2018 Overview: - likely multifactorial related to chemotherapy, CKD, plasmablastic lymphoma - 12/10: Hb 7.9, recieved 1 unit PRBC - 12/11: Hb 8.9 - 12/12: Hb 8.1 - 12/13: Hb 8.0, will transfuse with 1 unit PRBC today for dropping Hb - will have CBC with diff drawn twice weekly Immunosuppression 10/21/2017 05/30/2018 Overview: Patient 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 difficile colitis 10/10/2017 018 Overview: Patient with watery diarrhea Found to have Cdiff Plan: Oral vancomycin Follow diarrhea Fluids as needed Pancytopenia 10/09/2017 12/09/2017 Overview: Patient s/p chemotherapy cycle 3 of dose adjusted R-EPOCH Given 1u pRBC that admission for chemo induced anemia Discharged 10/02 Follow up labs on 10/06 were significant for hgb 8.3 from 9.3, wbc 3.37 (ANC 3.1) from 5.26 (5) and plt 187 from 324 on 10/03. Patient given pegfilgrastim on 10/03 - wbc 0.2, hgb 7.9, plt 80 at OSH - follow trend of chemo induced pancytopenia - continue prophylaxis Acyclovir 400 mg BID; Bactrim DS MWF; Diflucan 200 mg daily (Day 6-21) Neutropenic fever (HCC) 10/08/201709/19 Overview: He was admitted following cycle 1 of chemo with neutropenic fever and bacteremia (with alpha-hemolytic streptococcus mitis/oralis likely secondary to GI translocation and completed a 14 day course of abx). WBC 0.2 (anc not reported) at OSH with temp >101. - given vancomycin and piperacillin/tazobactam at OSH Leukemoid reaction 09/30/2017 Overview: - 09/30: Patient noted to have leucocytosis (WBC 11.34) on this morning labs which is likely secondary to Neulasta vs CKD vs steroid effect. He is afebrile without any signs or symptoms of infection and will continue to closely monitor. Neutropenic fever (HCC) 08/20/201712/2017 Electrolyte imbalance 08/11/20172017 Overview: - Monitor daily labs and replete as needed Melena 08/09/2017 09/07/2017 Overview: - 08/08: Patient reporting dark brown/black stools upon admission and will get occult stool prior to restarting Xeralto to check for melena - 08/09: Occult stool positive, Dr. Sandra Cardenas notified and will arrange for colonoscopy (recent EGD was negative), order placed and scheduled for with patient to be on clear liquids at midnight on Tuesday with bowel prep starting Tuesday evening and NPO 2 hours prior to procedure on . - 08/13: No melena Encounter for chemotherapy management 08/08/2017 05/30/2018 Overview: - Cycle 6 DA-EPOCH. dose level -2 - Doxorubicin/Vincristine/Etoposide IV over 24 hr on D1-4; Cyclophosphamide IV over 1 hour on D5; Prednisone BID D1-5 - chemotherapy orders per Dr. 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 with new acute DVT on 08/11/17 in RUE around PICC line in axilla and subclavian veins and new acute DVT in RLE posterior tibial vein and 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 - Xeralto 20 mg daily HTN (hypertension) 06/23/2016 0 Overview: - continue Carvedilol 6.25 daily - continue Amlodipine 5 mg daily - continue Lisinopril 20 daily - 12/13: Pt with increased BP, likely related to steroids Impaired fasting glucose 06/23/201602/2020 CKD (chronic kidney disease) stage 3, GFR 30-59 ml/min 06/23/2016 01/16/2021 Overview: Patient with hx of CKD stage 3 - avoid nephrotoxic medications - 12/09: on admission sCr up to 1.73, eGFR 39, received NS at 50 ml/hr - 12/10: Cr 1.63, close to baseline - 12/11: Cr 1.78 - 12/12: Cr 1.35 (stopped supplemental IVFs) - 12/13: Cr improved to 1.26 Pulmonary embolism 05/19/2009 0 Delirium 05/19/2009 05/30/2018 Acute renal failure 05/19/2009 08/27/19 20 Incontinence 05/19/2009 05/30/2018 Wound 05/19/2009 05/30/2018 Ileus 04/23/2009 09/07/2017 Malnutrition 04/23/2009 03/12/2020 DVT (deep venous thrombosis) 04/23/2009 08/27/2019 Malignant neoplasm of bladde r, part unspecified 11/08/2008 04/14/2009 documented as of this encounter (statuses as of 04/21/2023) [facility]2019 History of Past illness Narrative* Problem Noted Date Diagnosed Date Resolved Date Acute pain of right knee 01/17/201902/2020 Neck pain on right side 01/17/2019 03/02/2020 Thrombocytopenia 12/28/2017 05/30/2018 Fluid volume excess 12/13/2017 08/27/19 20 Overview: - pt with FVO (increased BLE edema, +20 lbs weight gain) , likely related to IVFs and steroids - stopped supplemental IVFs on 12/12 - will diurese with Lasix IV 20 mg today Anemia 11/11/2017 05/30/2018 Overview: - likely multifactorial related to chemotherapy, CKD, plasmablastic lymphoma - 12/10: Hb 7.9, recieved 1 unit PRBC - 12/11: Hb 8.9 - 12/12: Hb 8.1 - 12/13: Hb 8.0, will transfuse with 1 unit PRBC today for dropping Hb - will have CBC with diff drawn twice weekly Immunosuppression 10/21/2017 05/30/2018 Overview: Patient 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 difficile colitis 10/10/2017 018 Overview: Patient with watery diarrhea Found to have Cdiff Plan: Oral vancomycin Follow diarrhea Fluids as needed Pancytopenia 10/09/2017 12/09/2017 Overview: Patient s/p chemotherapy cycle 3 of dose adjusted R-EPOCH Given 1u pRBC that admission for chemo induced anemia Discharged 10/02 Follow up labs on 10/06 were significant for hgb 8.3 from 9.3, wbc 3.37 (ANC 3.1) from 5.26 (5) and plt 187 from 324 on 10/03. Patient given pegfilgrastim on 4/16 - wbc 0.2, hgb 7.9, plt 80 at OSH - follow trend of chemo induced pancytopenia - continue prophylaxis Acyclovir 400 mg BID; Bactrim DS MWF; Diflucan 200 mg daily (Day 6-21) Neutropenic fever (HCC) 10/08/201709/19 Overview: He was admitted following cycle 1 of chemo with neutropenic fever and bacteremia (with alpha-hemolytic streptococcus mitis/oralis likely secondary to GI translocation and completed a 14 day course of abx). WBC 0.2 (anc not reported) at OSH with temp >101. - given vancomycin and piperacillin/tazobactam at OSH Leukemoid reaction 09/30/2017 Overview: - 09/30: Patient noted to have leucocytosis (WBC 11.34) on this morning labs which is likely secondary to Neulasta vs CKD vs steroid effect. He is afebrile without any signs or symptoms of infection and will continue to closely monitor. Neutropenic fever (HCC) 08/20/201712/2017 Electrolyte imbalance 08/11/20172017 Overview: - Monitor daily labs and replete as needed Melena 08/09/2017 09/07/2017 Overview: - 08/08: Patient reporting dark brown/black stools upon admission and will get occult stool prior to restarting Xeralto to check for melena - 08/09: Occult stool positive, Dr. Sandra Cardenas notified and will arrange for colonoscopy (recent EGD was negative), order placed and scheduled for with patient to be on clear liquids at midnight on Tuesday with bowel prep starting Tuesday evening and NPO 2 hours prior to procedure on . - 08/13: No melena Encounter for chemotherapy management 08/08/2017 05/30/2018 Overview: - Cycle 6 DA-EPOCH. dose level -2 - Doxorubicin/Vincristine/Etoposide IV over 24 hr on D1-4; Cyclophosphamide IV over 1 hour on D5; Prednisone BID D1-5 - chemotherapy orders per Dr. 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 with new acute DVT on 08/11/17 in RUE around PICC line in axilla and subclavian veins and new acute DVT in RLE posterior tibial vein and 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 - Xeralto 20 mg daily HTN (hypertension) 06/23/2016 0 Overview: - continue Carvedilol 6.25 daily - continue Amlodipine 5 mg daily - continue Lisinopril 20 daily - 12/13: Pt with increased BP, likely related to steroids Impaired fasting glucose 06/23/201602/2020 CKD (chronic kidney disease) stage 3, GFR 30-59 ml/min 06/23/2016 01/16/2021 Overview: Patient with hx of CKD stage 3 - avoid nephrotoxic medications - 12/09: on admission sCr up to 1.73, eGFR 39, received NS at 50 ml/hr - 12/10: Cr 1.63, close to baseline - 12/11: Cr 1.78 - 12/12: Cr 1.35 (stopped supplemental IVFs) - 12/13: Cr improved to 1.26 Pulmonary embolism 05/19/2009 0 Delirium 05/19/2009 05/30/2018 Acute renal failure 05/19/2009 08/27/19 20 Incontinence 05/19/2009 05/30/2018 Wound 05/19/2009 05/30/2018 Ileus 04/23/2009 09/07/2017 Malnutrition 04/23/2009 03/12/2020 DVT (deep venous thrombosis) 04/23/2009 08/27/2019 Malignant neoplasm of bladde r, part unspecified 11/08/2008 04/14/2009 documented as of this encounter (statuses as of 04/23/2023) [facility]2019 History of Past illness Narrative* Problem Noted Date Diagnosed Date Resolved Date Acute pain of right knee 01/17/201902/2020 Neck pain on right side 01/17/201902/2020 Thrombocytopenia 12/28/2017 05/30/2018 Fluid volume excess 12/13/2017 08/27/19 20 Overview: - pt with FVO (increased BLE edema, +20 lbs weight gain) , likely related to IVFs and steroids - stopped supplemental IVFs on 12/12 - will diurese with Lasix IV 20 mg today Anemia 11/11/2017 05/30/2018 Overview: - likely multifactorial related to chemotherapy, CKD, plasmablastic lymphoma - 12/10: Hb 7.9, recieved 1 unit PRBC - 12/11: Hb 8.9 - 12/12: Hb 8.1 - 12/13: Hb 8.0, will transfuse with 1 unit PRBC today for dropping Hb - will have CBC with diff drawn twice weekly Immunosuppression 10/21/2017 05/30/2018 Overview: Patient 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 difficile colitis 10/10/2017 018 Overview: Patient with watery diarrhea Found to have Cdiff Plan: Oral vancomycin Follow diarrhea Fluids as needed Pancytopenia 10/09/2017 12/09/2017 Overview: Patient s/p chemotherapy cycle 3 of dose adjusted R-EPOCH Given 1u pRBC that admission for chemo induced anemia Discharged 10/02 Follow up labs on 10/06 were significant for hgb 8.3 from 9.3, wbc 3.37 (ANC 3.1) from 5.26 (5) and plt 187 from 324 on 10/03. Patient given pegfilgrastim on 10/03 - wbc 0.2, hgb 7.9, plt 80 at OSH - follow trend of chemo induced pancytopenia - continue prophylaxis Acyclovir 400 mg BID; Bactrim DS MWF; Diflucan 200 mg daily (Day 6-21) Neutropenic fever (HCC) 10/08/201709/19 Overview: He was admitted following cycle 1 of chemo with neutropenic fever and bacteremia (with alpha-hemolytic streptococcus mitis/oralis likely secondary to GI translocation and completed a 14 day course of abx). WBC 0.2 (anc not reported) at OSH with temp >101. - given vancomycin and piperacillin/tazobactam at OSH Leukemoid reaction 09/30/2017 8 Overview: - 09/30: Patient noted to have leucocytosis (WBC 11.34) on this morning labs which is likely secondary to Neulasta vs CKD vs steroid effect. He is afebrile without any signs or symptoms of infection and will continue to closely monitor. Neutropenic fever (HCC) 08/20/201712/2017 Electrolyte imbalance 08/11/20172017 Overview: - Monitor daily labs and replete as needed Melena 08/09/2017 09/07/2017 Overview: - 08/08: Patient reporting dark brown/black stools upon admission and will get occult stool prior to restarting Xeralto to check for melena - 08/09: Occult stool positive, Dr. Sandra Cardenas notified and will arrange for colonoscopy (recent EGD was negative), order placed and scheduled for with patient to be on clear liquids at midnight on Tuesday with bowel prep starting Tuesday evening and NPO 2 hours prior to procedure on . - 08/13: No melena Encounter for chemotherapy management 08/08/2017 05/30/2018 Overview: - Cycle 6 DA-EPOCH. dose level -2 - Doxorubicin/Vincristine/Etoposide IV over 24 hr on D1-4; Cyclophosphamide IV over 1 hour on D5; Prednisone BID D1-5 - chemotherapy orders per Dr. Sandra Cardenas - consent in [facility] - monitor for toxicities - venous access: port - VTE ppx: on therapeutic AC with Xeralto - GI ppx: Protonix - ID ppx: Acylcovir, Bactrim, Fluconazole (D6-21) CINV (chemotherapy-induced n ausea and vomiting) 08/08/2017 05/30/2018 Overview: - Zofran 8 mg daily - Compazine 10 mg Q6H PRN Drug-induced constipation 08/08/2017 Overview: 2/ Vincristine - Senna-S 2 tabs BID - Miralax daily PRN Plasma cell neoplasm 06/23/2017 020 Malignant neoplasm of urinary bladder 05/15/2017 08/27/2019 Acute DVT (deep venous thrombosis) 02/25/2017 08/27/2019 Overview: 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 with new acute DVT on 08/11/17 in RUE around PICC line in axilla and subclavian veins and new acute DVT in RLE posterior tibial vein and 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 - Xeralto 20 mg daily HTN (hypertension) 06/23/2016 0 Overview: - continue Carvedilol 6.25 daily - continue Amlodipine 5 mg daily - continue Lisinopril 20 daily - 12/13: Pt with increased BP, likely related to steroids Impaired fasting glucose 06/23/201602/2020 CKD (chronic kidney disease) stage 3, GFR 30-59 ml/min 06/23/2016 01/16/2021 Overview: Patient with hx of CKD stage 3 - avoid nephrotoxic medications - 12/09: on admission sCr up to 1.73, eGFR 39, received NS at 50 ml/hr - 12/10: Cr 1.63, close to baseline - 12/11: Cr 1.78 - 12/12: Cr 1.35 (stopped supplemental IVFs) - 12/13: Cr improved to 1.26 Pulmonary embolism 05/19/2009 0 Delirium 05/19/2009 05/30/2018 Acute renal failure 05/19/2009 08/27/19 20 Incontinence 05/19/2009 05/30/2018 Wound 05/19/2009 05/30/2018 Ileus 04/23/2009 09/07/2017 Malnutrition 04/23/2009 03/12/2020 DVT (deep venous thrombosis) 04/23/2009 08/27/2019 Malignant neoplasm of blajonase r, part unspecified 11/08/2008 04/14/2009 documented as of this encounter (statuses as of 05/06/2023) [facility]07-[facility]-2019 History of Past illness Narrative* Problem Noted Date Diagnosed Date Resolved Date Acute pain of right knee 01/17/201902/2020 Neck pain on right side 01/17/2019 03/02/2020 Thrombocytopenia 12/28/2017 05/30/2018 Fluid volume excess 12/13/2017 08/27/19 20 Overview: - pt with FVO (increased BLE edema, +20 lbs weight gain) , likely related to IVFs and steroids - stopped supplemental IVFs on 12/12 - will diurese with Lasix IV 20 mg today Anemia 11/11/2017 05/30/2018 Overview: - likely multifactorial related to chemotherapy, CKD, plasmablastic lymphoma - 12/10: Hb 7.9, recieved 1 unit PRBC - 12/11: Hb 8.9 - 12/12: Hb 8.1 - 12/13: Hb 8.0, will transfuse with 1 unit PRBC today for dropping Hb - will have CBC with diff drawn twice weekly Immunosuppression 10/21/2017 05/30/2018 Overview: Patient 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 difficile colitis 10/10/2017 018 Overview: Patient with watery diarrhea Found to have Cdiff Plan: Oral vancomycin Follow diarrhea Fluids as needed Pancytopenia 10/09/2017 12/09/2017 Overview: Patient s/p chemotherapy cycle 3 of dose adjusted R-EPOCH Given 1u pRBC that admission for chemo induced anemia Discharged 10/02 Follow up labs on 10/06 were significant for hgb 8.3 from 9.3, wbc 3.37 (ANC 3.1) from 5.26 (5) and plt 187 from 324 on 10/03. Patient given pegfilgrastim on 10/03 - wbc 0.2, hgb 7.9, plt 80 at OSH - follow trend of chemo induced pancytopenia - continue prophylaxis Acyclovir 400 mg BID; Bactrim DS MWF; Diflucan 200 mg daily (Day 6-21) Neutropenic fever (HCC) 10/08/201709/19 Overview: He was admitted following cycle 1 of chemo with neutropenic fever and bacteremia (with alpha-hemolytic streptococcus mitis/oralis likely secondary to GI translocation and completed a 14 day course of abx). WBC 0.2 (anc not reported) at OSH with temp >101. - given vancomycin and piperacillin/tazobactam at OSH Leukemoid reaction 09/30/2017 8 Overview: - 09/30: Patient noted to have leucocytosis (WBC 11.34) on this morning labs which is likely secondary to Neulasta vs CKD vs steroid effect. He is afebrile without any signs or symptoms of infection and will continue to closely monitor. Neutropenic fever (HCC) 08/20/2017 0312/2017 Electrolyte imbalance 08/11/20172017 Overview: - Monitor daily labs and replete as needed Melena 08/09/2017 09/07/2017 Overview: - 08/08: Patient reporting dark brown/black stools upon admission and will get occult stool prior to restarting Xeralto to check for melena - 08/09: Occult stool positive, Dr. Sandra Cradenas notified and will arrange for colonoscopy (recent EGD was negative), order placed and scheduled for with patient to be on clear liquids at midnight on Tuesday with bowel prep starting Tuesday evening and NPO 2 hours prior to procedure on . - 08/13: No melena Encounter for chemotherapy management 08/08/2017 05/30/2018 Overview: - Cycle 6 DA-EPOCH. dose level -2 - Doxorubicin/Vincristine/Etoposide IV over 24 hr on D1-4; Cyclophosphamide IV over 1 hour on D5; Prednisone BID D1-5 - chemotherapy orders per Dr. 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 with new acute DVT on 08/11/17 in RUE around PICC line in axilla and subclavian veins and new acute DVT in RLE posterior tibial vein and 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 - Xeralto 20 mg daily HTN (hypertension) 06/23/2016 0 Overview: - continue Carvedilol 6.25 daily - continue Amlodipine 5 mg daily - continue Lisinopril 20 daily - 12/13: Pt with increased BP, likely related to steroids Impaired fasting glucose 06/23/201602/2020 CKD (chronic kidney disease) stage 3, GFR 30-59 ml/min 06/23/2016 01/16/2021 Overview: Patient with hx of CKD stage 3 - avoid nephrotoxic medications - 12/09: on admission sCr up to 1.73, eGFR 39, received NS at 50 ml/hr - 12/10: Cr 1.63, close to baseline - 12/11: Cr 1.78 - 12/12: Cr 1.35 (stopped supplemental IVFs) - 12/13: Cr improved to 1.26 Pulmonary embolism 05/19/2009 0 Delirium 05/19/2009 05/30/2018 Acute renal failure 05/19/2009 08/27/19 20 Incontinence 05/19/2009 05/30/2018 Wound 05/19/2009 05/30/2018 Ileus 04/23/2009 09/07/2017 Malnutrition 04/23/2009 03/12/2020 DVT (deep venous thrombosis) 04/23/2009 08/27/2019 Malignant neoplasm of bladde r, part unspecified 11/08/2008 04/14/2009 documented as of this encounter (statuses as of 05/13/2023) [facility]2019 History of Past illness Narrative* Problem Noted Date Diagnosed Date Resolved Date Acute pain of right knee 01/17/201902/2020 Neck pain on right side 01/17/2019 03/0 02/2020 Thrombocytopenia 12/28/2017 05/30/2018 Fluid volume excess 12/13/2017 08/27/19 20 Overview: - pt with FVO (increased BLE edema, +20 lbs weight gain) , likely related to IVFs and steroids - stopped supplemental IVFs on 12/12 - will diurese with Lasix IV 20 mg today Anemia 11/11/2017 05/30/2018 Overview: - likely multifactorial related to chemotherapy, CKD, plasmablastic lymphoma - 12/10: Hb 7.9, recieved 1 unit PRBC - 12/11: Hb 8.9 - 12/12: Hb 8.1 - 12/13: Hb 8.0, will transfuse with 1 unit PRBC today for dropping Hb - will have CBC with diff drawn twice weekly Immunosuppression 10/21/2017 05/30/2018 Overview: Patient 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 difficile colitis 10/10/2017 018 Overview: Patient with watery diarrhea Found to have Cdiff Plan: Oral vancomycin Follow diarrhea Fluids as needed Pancytopenia 10/09/2017 12/09/2017 Overview: Patient s/p chemotherapy cycle 3 of dose adjusted R-EPOCH Given 1u pRBC that admission for chemo induced anemia Discharged 10/02 Follow up labs on 10/06 were significant for hgb 8.3 from 9.3, wbc 3.37 (ANC 3.1) from 5.26 (5) and plt 187 from 324 on 10/03. Patient given pegfilgrastim on 10/03 - wbc 0.2, hgb 7.9, plt 80 at OSH - follow trend of chemo induced pancytopenia - continue prophylaxis Acyclovir 400 mg BID; Bactrim DS MWF; Diflucan 200 mg daily (Day 6-21) Neutropenic fever (HCC) 10/08/201709/19 Overview: He was admitted following cycle 1 of chemo with neutropenic fever and bacteremia (with alpha-hemolytic streptococcus mitis/oralis likely secondary to GI translocation and completed a 14 day course of abx). WBC 0.2 (anc not reported) at OSH with temp >101. - given vancomycin and piperacillin/tazobactam at OSH Leukemoid reaction 09/30/2017 8 Overview: - 09/30: Patient noted to have leucocytosis (WBC 11.34) on this morning labs which is likely secondary to Neulasta vs CKD vs steroid effect. He is afebrile without any signs or symptoms of infection and will continue to closely monitor. Neutropenic fever (HCC) 08/20/201712/2017 Electrolyte imbalance 08/11/20172017 Overview: - Monitor daily labs and replete as needed Melena 08/09/2017 09/07/2017 Overview: - 08/08: Patient reporting dark brown/black stools upon admission and will get occult stool prior to restarting Xeralto to check for melena - 08/09: Occult stool positive, Dr. Sandra Cardenas notified and will arrange for colonoscopy (recent EGD was negative), order placed and scheduled for with patient to be on clear liquids at midnight on Tuesday with bowel prep starting Tuesday evening and NPO 2 hours prior to procedure on . - 08/13: No melena Encounter for chemotherapy management 08/08/2017 05/30/2018 Overview: - Cycle 6 DA-EPOCH. dose level -2 - Doxorubicin/Vincristine/Etoposide IV over 24 hr on D1-4; Cyclophosphamide IV over 1 hour on D5; Prednisone BID D1-5 - chemotherapy orders per Dr. Sandra Cardenas - consent in [facility] - monitor for toxicities - venous access: port - VTE ppx: on therapeutic AC with Xeralto - GI ppx: Protonix - ID ppx: Acylcovir, Bactrim, Fluconazole (D6-21) CINV (chemotherapy-induced n ausea and vomiting) 08/08/2017 05/30/2018 Overview: - Zofran 8 mg daily - Compazine 10 mg Q6H PRN Drug-induced constipation 08/08/2017 Overview: 2/2 Vincristine - Senna-S 2 tabs BID - Miralax daily PRN Plasma cell neoplasm 06/23/2017 020 Malignant neoplasm of urinary bladder 05/15/2017 08/27/2019 Acute DVT (deep venous thrombosis) 02/25/2017 08/27/2019 Overview: 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 with new acute DVT on 08/11/17 in RUE around PICC line in axilla and subclavian veins and new acute DVT in RLE posterior tibial vein and 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 - Xeralto 20 mg daily HTN (hypertension) 06/23/2016 0 Overview: - continue Carvedilol 6.25 daily - continue Amlodipine 5 mg daily - continue Lisinopril 20 daily - 12/13: Pt with increased BP, likely related to steroids Impaired fasting glucose 06/23/201602/2020 CKD (chronic kidney disease) stage 3, GFR 30-59 ml/min 06/23/2016 01/16/2021 Overview: Patient with hx of CKD stage 3 - avoid nephrotoxic medications - 12/09: on admission sCr up to 1.73, eGFR 39, received NS at 50 ml/hr - 12/10: Cr 1.63, close to baseline - 12/11: Cr 1.78 - 12/12: Cr 1.35 (stopped supplemental IVFs) - 12/13: Cr improved to 1.26 Pulmonary embolism 05/19/2009 0 Delirium 05/19/2009 05/30/2018 Acute renal failure 05/19/2009 08/27/19 20 Incontinence 05/19/2009 05/30/2018 Wound 05/19/2009 05/30/2018 Ileus 04/23/2009 09/07/2017 Malnutrition 04/23/2009 03/12/2020 DVT (deep venous thrombosis) 04/23/2009 08/27/2019 Malignant neoplasm of bladde r, part unspecified 11/08/2008 04/14/2009 documented as of this encounter (statuses as of 05/13/2023) [facility]2019 History of Past illness Narrative* Problem Noted Date Diagnosed Date Resolved Date Acute pain of right knee 01/17/201902/2020 Neck pain on right side 01/17/2019 030 02/2020 Thrombocytopenia 12/28/2017 05/30/2018 Fluid volume excess 12/13/2017 08/27/19 20 Overview: - pt with FVO (increased BLE edema, +20 lbs weight gain) , likely related to IVFs and steroids - stopped supplemental IVFs on 12/12 - will diurese with Lasix IV 20 mg today Anemia 11/11/2017 05/30/2018 Overview: - likely multifactorial related to chemotherapy, CKD, plasmablastic lymphoma - 12/10: Hb 7.9, recieved 1 unit PRBC - 12/11: Hb 8.9 - 12/12: Hb 8.1 - 12/13: Hb 8.0, will transfuse with 1 unit PRBC today for dropping Hb - will have CBC with diff drawn twice weekly Immunosuppression 10/21/2017 05/30/2018 Overview: Patient 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 difficile colitis 10/10/2017 018 Overview: Patient with watery diarrhea Found to have Cdiff Plan: Oral vancomycin Follow diarrhea Fluids as needed Pancytopenia 10/09/2017 12/09/2017 Overview: Patient s/p chemotherapy cycle 3 of dose adjusted R-EPOCH Given 1u pRBC that admission for chemo induced anemia Discharged 10/02 Follow up labs on 10/06 were significant for hgb 8.3 from 9.3, wbc 3.37 (ANC 3.1) from 5.26 (5) and plt 187 from 324 on 10/03. Patient given pegfilgrastim on 10/03 - wbc 0.2, hgb 7.9, plt 80 at OSH - follow trend of chemo induced pancytopenia - continue prophylaxis Acyclovir 400 mg BID; Bactrim DS MWF; Diflucan 200 mg daily (Day 6-21) Neutropenic fever (HCC) 10/08/201709/19 Overview: He was admitted following cycle 1 of chemo with neutropenic fever and bacteremia (with alpha-hemolytic streptococcus mitis/oralis likely secondary to GI translocation and completed a 14 day course of abx). WBC 0.2 (anc not reported) at OSH with temp >101. - given vancomycin and piperacillin/tazobactam at OSH Leukemoid reaction 09/30/2017 8 Overview: - 09/30: Patient noted to have leucocytosis (WBC 11.34) on this morning labs which is likely secondary to Neulasta vs CKD vs steroid effect. He is afebrile without any signs or symptoms of infection and will continue to closely monitor. Neutropenic fever (HCC) 08/20/201712/2017 Electrolyte imbalance 08/11/20172017 Overview: - Monitor daily labs and replete as needed Melena 08/09/2017 09/07/2017 Overview: - 08/08: Patient reporting dark brown/black stools upon admission and will get occult stool prior to restarting Xeralto to check for melena - 08/09: Occult stool positive, Dr. Sandra Cardenas notified and will arrange for colonoscopy (recent EGD was negative), order placed and scheduled for with patient to be on clear liquids at midnight on Tuesday with bowel prep starting Tuesday evening and NPO 2 hours prior to procedure on . - 08/13: No melena Encounter for chemotherapy management 08/08/2017 05/30/2018 Overview: - Cycle 6 DA-EPOCH. dose level -2 - Doxorubicin/Vincristine/Etoposide IV over 24 hr on D1-4; Cyclophosphamide IV over 1 hour on D5; Prednisone BID D1-5 - chemotherapy orders per Dr. 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 with new acute DVT on 08/11/17 in RUE around PICC line in axilla and subclavian veins and new acute DVT in RLE posterior tibial vein and 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 - Xeralto 20 mg daily HTN (hypertension) 06/23/2016 0 Overview: - continue Carvedilol 6.25 daily - continue Amlodipine 5 mg daily - continue Lisinopril 20 daily - 12/13: Pt with increased BP, likely related to steroids Impaired fasting glucose 06/23/201602/2020 CKD (chronic kidney disease) stage 3, GFR 30-59 ml/min 06/23/2016 01/16/2021 Overview: Patient with hx of CKD stage 3 - avoid nephrotoxic medications - 12/09: on admission sCr up to 1.73, eGFR 39, received NS at 50 ml/hr - 12/10: Cr 1.63, close to baseline - 12/11: Cr 1.78 - 12/12: Cr 1.35 (stopped supplemental IVFs) - 12/13: Cr improved to 1.26 Pulmonary embolism 05/19/2009 0 Delirium 05/19/2009 05/30/2018 Acute renal failure 05/19/2009 08/27/19 20 Incontinence 05/19/2009 05/30/2018 Wound 05/19/2009 05/30/2018 Ileus 04/23/2009 09/07/2017 Malnutrition 04/23/2009 03/12/2020 DVT (deep venous thrombosis) 04/23/2009 08/27/2019 Malignant neoplasm of lia r, part unspecified 11/08/2008 04/14/2009 documented as of this encounter (statuses as of 05/23/2023) [facility]2019 History of Past illness Narrative* Problem Noted Date Diagnosed Date Resolved Date Acute pain of right knee 01/17/201902/2020 Neck pain on right side 01/17/2019 03/0 02/2020 Thrombocytopenia 12/28/2017 05/30/2018 Fluid volume excess 12/13/2017 08/27/19 20 Overview: - pt with FVO (increased BLE edema, +20 lbs weight gain) , likely related to IVFs and steroids - stopped supplemental IVFs on 12/12 - will diurese with Lasix IV 20 mg today Anemia 11/11/2017 05/30/2018 Overview: - likely multifactorial related to chemotherapy, CKD, plasmablastic lymphoma - 12/10: Hb 7.9, recieved 1 unit PRBC - 12/11: Hb 8.9 - 12/12: Hb 8.1 - 12/13: Hb 8.0, will transfuse with 1 unit PRBC today for dropping Hb - will have CBC with diff drawn twice weekly Immunosuppression 10/21/2017 05/30/2018 Overview: Patient 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 difficile colitis 10/10/2017 018 Overview: Patient with watery diarrhea Found to have Cdiff Plan: Oral vancomycin Follow diarrhea Fluids as needed Pancytopenia 10/09/2017 12/09/2017 Overview: Patient s/p chemotherapy cycle 3 of dose adjusted R-EPOCH Given 1u pRBC that admission for chemo induced anemia Discharged 10/02 Follow up labs on 10/06 were significant for hgb 8.3 from 9.3, wbc 3.37 (ANC 3.1) from 5.26 (5) and plt 187 from 324 on 10/03. Patient given pegfilgrastim on 10/03 - wbc 0.2, hgb 7.9, plt 80 at OSH - follow trend of chemo induced pancytopenia - continue prophylaxis Acyclovir 400 mg BID; Bactrim DS MWF; Diflucan 200 mg daily (Day 6-21) Neutropenic fever (HCC) 10/08/201709/19 Overview: He was admitted following cycle 1 of chemo with neutropenic fever and bacteremia (with alpha-hemolytic streptococcus mitis/oralis likely secondary to GI translocation and completed a 14 day course of abx). WBC 0.2 (anc not reported) at OSH with temp >101. - given vancomycin and piperacillin/tazobactam at OSH Leukemoid reaction 09/30/2017 8 Overview: - 09/30: Patient noted to have leucocytosis (WBC 11.34) on this morning labs which is likely secondary to Neulasta vs CKD vs steroid effect. He is afebrile without any signs or symptoms of infection and will continue to closely monitor. Neutropenic fever (HCC) 08/20/201712/2017 Electrolyte imbalance 08/11/20172017 Overview: - Monitor daily labs and replete as needed Melena 08/09/2017 09/07/2017 Overview: - 08/08: Patient reporting dark brown/black stools upon admission and will get occult stool prior to restarting Xeralto to check for melena - 08/09: Occult stool positive, Dr. Sandra Cardenas notified and will arrange for colonoscopy (recent EGD was negative), order placed and scheduled for with patient to be on clear liquids at midnight on Tuesday with bowel prep starting Tuesday evening and NPO 2 hours prior to procedure on . - 08/13: No melena Encounter for chemotherapy management 08/08/2017 05/30/2018 Overview: - Cycle 6 DA-EPOCH. dose level -2 - Doxorubicin/Vincristine/Etoposide IV over 24 hr on D1-4; Cyclophosphamide IV over 1 hour on D5; Prednisone BID D1-5 - chemotherapy orders per Dr. 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 with new acute DVT on 08/11/17 in RUE around PICC line in axilla and subclavian veins and new acute DVT in RLE posterior tibial vein and 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 - Xeralto 20 mg daily HTN (hypertension) 06/23/2016 0 Overview: - continue Carvedilol 6.25 daily - continue Amlodipine 5 mg daily - continue Lisinopril 20 daily - 12/13: Pt with increased BP, likely related to steroids Impaired fasting glucose 06/23/201602/2020 CKD (chronic kidney disease) stage 3, GFR 30-59 ml/min 06/23/2016 01/16/2021 Overview: Patient with hx of CKD stage 3 - avoid nephrotoxic medications - 12/09: on admission sCr up to 1.73, eGFR 39, received NS at 50 ml/hr - 12/10: Cr 1.63, close to baseline - 12/11: Cr 1.78 - 12/12: Cr 1.35 (stopped supplemental IVFs) - 12/13: Cr improved to 1.26 Pulmonary embolism 05/19/2009 0 Delirium 05/19/2009 05/30/2018 Acute renal failure 05/19/2009 08/27/19 20 Incontinence 05/19/2009 05/30/2018 Wound 05/19/2009 05/30/2018 Ileus 04/23/2009 09/07/2017 Malnutrition 04/23/2009 03/12/2020 DVT (deep venous thrombosis) 04/23/2009 08/27/2019 Malignant neoplasm of bladde r, part unspecified 11/08/2008 04/14/2009 documented as of this encounter (statuses as of 05/24/2023) [facility]2019 History of Past illness Narrative* Problem Noted Date Diagnosed Date Resolved Date Acute pain of right knee 01/17/201902/2020 Neck pain on right side 01/17/2019 03/0 02/2020 Thrombocytopenia 12/28/2017 05/30/2018 Fluid volume excess 12/13/2017 08/27/19 20 Overview: - pt with FVO (increased BLE edema, +20 lbs weight gain) , likely related to IVFs and steroids - stopped supplemental IVFs on 12/12 - will diurese with Lasix IV 20 mg today Anemia 11/11/2017 05/30/2018 Overview: - likely multifactorial related to chemotherapy, CKD, plasmablastic lymphoma - 12/10: Hb 7.9, recieved 1 unit PRBC - 12/11: Hb 8.9 - 12/12: Hb 8.1 - 12/13: Hb 8.0, will transfuse with 1 unit PRBC today for dropping Hb - will have CBC with diff drawn twice weekly Immunosuppression 10/21/2017 05/30/2018 Overview: Patient 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 difficile colitis 10/10/2017 018 Overview: Patient with watery diarrhea Found to have Cdiff Plan: Oral vancomycin Follow diarrhea Fluids as needed Pancytopenia 10/09/2017 12/09/2017 Overview: Patient s/p chemotherapy cycle 3 of dose adjusted R-EPOCH Given 1u pRBC that admission for chemo induced anemia Discharged 10/02 Follow up labs on 10/06 were significant for hgb 8.3 from 9.3, wbc 3.37 (ANC 3.1) from 5.26 (5) and plt 187 from 324 on 10/03. Patient given pegfilgrastim on 10/03 - wbc 0.2, hgb 7.9, plt 80 at OSH - follow trend of chemo induced pancytopenia - continue prophylaxis Acyclovir 400 mg BID; Bactrim DS MWF; Diflucan 200 mg daily (Day 6-21) Neutropenic fever (HCC) 10/08/201709/19 Overview: He was admitted following cycle 1 of chemo with neutropenic fever and bacteremia (with alpha-hemolytic streptococcus mitis/oralis likely secondary to GI translocation and completed a 14 day course of abx). WBC 0.2 (anc not reported) at OSH with temp >101. - given vancomycin and piperacillin/tazobactam at OSH Leukemoid reaction 09/30/2017 8 Overview: - 09/30: Patient noted to have leucocytosis (WBC 11.34) on this morning labs which is likely secondary to Neulasta vs CKD vs steroid effect. He is afebrile without any signs or symptoms of infection and will continue to closely monitor. Neutropenic fever (HCC) 08/20/2017 0312/2017 Electrolyte imbalance 08/11/20172017 Overview: - Monitor daily labs and replete as needed Melena 08/09/2017 09/07/2017 Overview: - 08/08: Patient reporting dark brown/black stools upon admission and will get occult stool prior to restarting Xeralto to check for melena - 08/09: Occult stool positive, Dr. Sandra Cardenas notified and will arrange for colonoscopy (recent EGD was negative), order placed and scheduled for with patient to be on clear liquids at midnight on Tuesday with bowel prep starting Tuesday evening and NPO 2 hours prior to procedure on . - 08/13: No melena Encounter for chemotherapy management 08/08/2017 05/30/2018 Overview: - Cycle 6 DA-EPOCH. dose level -2 - Doxorubicin/Vincristine/Etoposide IV over 24 hr on D1-4; Cyclophosphamide IV over 1 hour on D5; Prednisone BID D1-5 - chemotherapy orders per Dr. 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 with new acute DVT on 08/11/17 in RUE around PICC line in axilla and subclavian veins and new acute DVT in RLE posterior tibial vein and 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 - Xeralto 20 mg daily HTN (hypertension) 06/23/2016 0 Overview: - continue Carvedilol 6.25 daily - continue Amlodipine 5 mg daily - continue Lisinopril 20 daily - 12/13: Pt with increased BP, likely related to steroids Impaired fasting glucose 06/23/201602/2020 CKD (chronic kidney disease) stage 3, GFR 30-59 ml/min 06/23/2016 01/16/2021 Overview: Patient with hx of CKD stage 3 - avoid nephrotoxic medications - 12/09: on admission sCr up to 1.73, eGFR 39, received NS at 50 ml/hr - 12/10: Cr 1.63, close to baseline - 12/11: Cr 1.78 - 12/12: Cr 1.35 (stopped supplemental IVFs) - 12/13: Cr improved to 1.26 Pulmonary embolism 05/19/2009 0 Delirium 05/19/2009 05/30/2018 Acute renal failure 05/19/2009 08/27/19 20 Incontinence 05/19/2009 05/30/2018 Wound 05/19/2009 05/30/2018 Ileus 04/23/2009 09/07/2017 Malnutrition 04/23/2009 03/12/2020 DVT (deep venous thrombosis) 04/23/2009 08/27/2019 Malignant neoplasm of bladde r, part unspecified 11/08/2008 04/14/2009 documented as of this encounter (statuses as of 05/25/2023) [facility]07-[facility]-2019 History of Past illness Narrative* Problem Noted Date Diagnosed Date Resolved Date Acute pain of right knee 01/17/201902/2020 Neck pain on right side 01/17/2019 03/0 02/2020 Thrombocytopenia 12/28/2017 05/30/2018 Fluid volume excess 12/13/2017 08/27/19 20 Overview: - pt with FVO (increased BLE edema, +20 lbs weight gain) , likely related to IVFs and steroids - stopped supplemental IVFs on 12/12 - will diurese with Lasix IV 20 mg today Anemia 11/11/2017 05/30/2018 Overview: - likely multifactorial related to chemotherapy, CKD, plasmablastic lymphoma - 12/10: Hb 7.9, recieved 1 unit PRBC - 12/11: Hb 8.9 - 12/12: Hb 8.1 - 12/13: Hb 8.0, will transfuse with 1 unit PRBC today for dropping Hb - will have CBC with diff drawn twice weekly Immunosuppression 10/21/2017 05/30/2018 Overview: Patient 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 difficile colitis 10/10/2017 018 Overview: Patient with watery diarrhea Found to have Cdiff Plan: Oral vancomycin Follow diarrhea Fluids as needed Pancytopenia 10/09/2017 12/09/2017 Overview: Patient s/p chemotherapy cycle 3 of dose adjusted R-EPOCH Given 1u pRBC that admission for chemo induced anemia Discharged 10/02 Follow up labs on 10/06 were significant for hgb 8.3 from 9.3, wbc 3.37 (ANC 3.1) from 5.26 (5) and plt 187 from 324 on 10/03. Patient given pegfilgrastim on 10/03 - wbc 0.2, hgb 7.9, plt 80 at OSH - follow trend of chemo induced pancytopenia - continue prophylaxis Acyclovir 400 mg BID; Bactrim DS MWF; Diflucan 200 mg daily (Day 6-21) Neutropenic fever (HCC) 10/08/201709/19 Overview: He was admitted following cycle 1 of chemo with neutropenic fever and bacteremia (with alpha-hemolytic streptococcus mitis/oralis likely secondary to GI translocation and completed a 14 day course of abx). WBC 0.2 (anc not reported) at OSH with temp >101. - given vancomycin and piperacillin/tazobactam at OSH Leukemoid reaction 09/30/2017 8 Overview: - 09/30: Patient noted to have leucocytosis (WBC 11.34) on this morning labs which is likely secondary to Neulasta vs CKD vs steroid effect. He is afebrile without any signs or symptoms of infection and will continue to closely monitor. Neutropenic fever (HCC) 08/20/2017 03/0 12/2017 Electrolyte imbalance 08/11/20172017 Overview: - Monitor daily labs and replete as needed Melena 08/09/2017 09/07/2017 Overview: - 08/08: Patient reporting dark brown/black stools upon admission and will get occult stool prior to restarting Xeralto to check for melena - 08/09: Occult stool positive, Dr. Sandra Cardenas notified and will arrange for colonoscopy (recent EGD was negative), order placed and scheduled for with patient to be on clear liquids at midnight on Tuesday with bowel prep starting Tuesday evening and NPO 2 hours prior to procedure on . - 08/13: No melena Encounter for chemotherapy management 08/08/2017 05/30/2018 Overview: - Cycle 6 DA-EPOCH. dose level -2 - Doxorubicin/Vincristine/Etoposide IV over 24 hr on D1-4; Cyclophosphamide IV over 1 hour on D5; Prednisone BID D1-5 - chemotherapy orders per Dr. Sandra Cardenas - consent in [facility] - monitor for toxicities - venous access: port - VTE ppx: on therapeutic AC with Xeralto - GI ppx: Protonix - ID ppx: Acylcovir, Bactrim, Fluconazole (D6-21) CINV (chemotherapy-induced n ausea and vomiting) 08/08/2017 05/30/2018 Overview: - Zofran 8 mg daily - Compazine 10 mg Q6H PRN Drug-induced constipation 08/08/2017 Overview: 2/ Vincristine - Senna-S 2 tabs BID - Miralax daily PRN Plasma cell neoplasm 06/23/2017 020 Malignant neoplasm of urinary bladder 05/15/2017 08/27/2019 Acute DVT (deep venous thrombosis) 02/25/2017 08/27/2019 Overview: 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 with new acute DVT on 08/11/17 in RUE around PICC line in axilla and subclavian veins and new acute DVT in RLE posterior tibial vein and 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 - Xeralto 20 mg daily HTN (hypertension) 06/23/2016 0 Overview: - continue Carvedilol 6.25 daily - continue Amlodipine 5 mg daily - continue Lisinopril 20 daily - 12/13: Pt with increased BP, likely related to steroids Impaired fasting glucose 06/23/201602/2020 CKD (chronic kidney disease) stage 3, GFR 30-59 ml/min 06/23/2016 01/16/2021 Overview: Patient with hx of CKD stage 3 - avoid nephrotoxic medications - 12/09: on admission sCr up to 1.73, eGFR 39, received NS at 50 ml/hr - 12/10: Cr 1.63, close to baseline - 12/11: Cr 1.78 - 12/12: Cr 1.35 (stopped supplemental IVFs) - 12/13: Cr improved to 1.26 Pulmonary embolism 05/19/2009 0 Delirium 05/19/2009 05/30/2018 Acute renal failure 05/19/2009 08/27/19 20 Incontinence 05/19/2009 05/30/2018 Wound 05/19/2009 05/30/2018 Ileus 04/23/2009 09/07/2017 Malnutrition 04/23/2009 03/12/2020 DVT (deep venous thrombosis) 04/23/2009 08/27/2019 Malignant neoplasm of bladde r, part unspecified 11/08/2008 04/14/2009 documented as of this encounter (statuses as of 05/26/2023) [facility]-2019 History of Past illness Narrative* Problem Noted Date Diagnosed Date Resolved Date Acute pain of right knee 01/17/201902/2020 Neck pain on right side 01/17/2019 03/0 02/2020 Thrombocytopenia 12/28/2017 05/30/2018 Anemia 11/11/2017 05/30/2018 Overview: - likely multifactorial related to chemotherapy, CKD, plasmablastic lymphoma - 12/10: Hb 7.9, recieved 1 unit PRBC - 12/11: Hb 8.9 - 12/12: Hb 8.1 - 12/13: Hb 8.0, will transfuse with 1 unit PRBC today for dropping Hb - will have CBC with diff drawn twice weekly Immunosuppression 10/21/2017 05/30/2018 Overview: Patient 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 difficile colitis 10/10/2017 018 Overview: Patient with watery diarrhea Found to have Cdiff Plan: Oral vancomycin Follow diarrhea Fluids as needed Pancytopenia 10/09/2017 12/09/2017 Overview: Patient s/p chemotherapy cycle 3 of dose adjusted R-EPOCH Given 1u pRBC that admission for chemo induced anemia Discharged 10/02 Follow up labs on 10/06 were significant for hgb 8.3 from 9.3, wbc 3.37 (ANC 3.1) from 5.26 (5) and plt 187 from 324 on 10/03. Patient given pegfilgrastim on 10/03 - wbc 0.2, hgb 7.9, plt 80 at OSH - follow trend of chemo induced pancytopenia - continue prophylaxis Acyclovir 400 mg BID; Bactrim DS MWF; Diflucan 200 mg daily (Day 6-21) Neutropenic fever (HCC) 10/08/201709/19 Overview: He was admitted following cycle 1 of chemo with neutropenic fever and bacteremia (with alpha-hemolytic streptococcus mitis/oralis likely secondary to GI translocation and completed a 14 day course of abx). WBC 0.2 (anc not reported) at OSH with temp >101. - given vancomycin and piperacillin/tazobactam at OSH Leukemoid reaction 09/30/2017 8 Overview: - 09/30: Patient noted to have leucocytosis (WBC 11.34) on this morning labs which is likely secondary to Neulasta vs CKD vs steroid effect. He is afebrile without any signs or symptoms of infection and will continue to closely monitor. Neutropenic fever (HCC) 08/20/201712/2017 Electrolyte imbalance 08/11/20172017 Overview: - Monitor daily labs and replete as needed Melena 08/09/2017 09/07/2017 Overview: - 08/08: Patient reporting dark brown/black stools upon admission and will get occult stool prior to restarting Xeralto to check for melena - 08/09: Occult stool positive, Dr. Sandra Cardenas notified and will arrange for colonoscopy (recent EGD was negative), order placed and scheduled for with patient to be on clear liquids at midnight on Tuesday with bowel prep starting Tuesday evening and NPO 2 hours prior to procedure on . - 08/13: No melena Encounter for chemotherapy management 08/08/2017 05/30/2018 Overview: - Cycle 6 DA-EPOCH. dose level -2 - Doxorubicin/Vincristine/Etoposide IV over 24 hr on D1-4; Cyclophosphamide IV over 1 hour on D5; Prednisone BID D1-5 - chemotherapy orders per Dr. 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 with new acute DVT on 08/11/17 in RUE around PICC line in axilla and subclavian veins and new acute DVT in RLE posterior tibial vein and 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 - Xeralto 20 mg daily HTN (hypertension) 06/23/2016 0 Overview: - continue Carvedilol 6.25 daily - continue Amlodipine 5 mg daily - continue Lisinopril 20 daily - 12/13: Pt with increased BP, likely related to steroids Impaired fasting glucose 06/23/201602/2020 CKD (chronic kidney disease) stage 3, GFR 30-59 ml/min 06/23/2016 01/16/2021 Overview: Patient with hx of CKD stage 3 - avoid nephrotoxic medications - 12/09: on admission sCr up to 1.73, eGFR 39, received NS at 50 ml/hr - 12/10: Cr 1.63, close to baseline - 12/11: Cr 1.78 - 12/12: Cr 1.35 (stopped supplemental IVFs) - 12/13: Cr improved to 1.26 Pulmonary embolism 05/19/2009 0 Delirium 05/19/2009 05/30/2018 Acute renal failure 05/19/2009 08/27/19 20 Incontinence 05/19/2009 05/30/2018 Wound 05/19/2009 05/30/2018 Ileus 04/23/2009 09/07/2017 Malnutrition 04/23/2009 03/12/2020 DVT (deep venous thrombosis) 04/23/2009 08/27/2019 Malignant neoplasm of bladde r, part unspecified 11/08/2008 04/14/2009 documented as of this encounter (statuses as of 05/26/2023) [facility]-2019 History of Past illness Narrative* Problem Noted Date Diagnosed Date Resolved Date Acute pain of right knee 01/17/201902/2020 Neck pain on right side 01/17/2019 03/0 02/2020 Thrombocytopenia 12/28/2017 05/30/2018 Anemia 11/11/2017 05/30/2018 Overview: - likely multifactorial related to chemotherapy, CKD, plasmablastic lymphoma - 12/10: Hb 7.9, recieved 1 unit PRBC - 12/11: Hb 8.9 - 12/12: Hb 8.1 - 12/13: Hb 8.0, will transfuse with 1 unit PRBC today for dropping Hb - will have CBC with diff drawn twice weekly Immunosuppression 10/21/2017 05/30/2018 Overview: Patient 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 difficile colitis 10/10/2017 018 Overview: Patient with watery diarrhea Found to have Cdiff Plan: Oral vancomycin Follow diarrhea Fluids as needed Pancytopenia 10/09/2017 12/09/2017 Overview: Patient s/p chemotherapy cycle 3 of dose adjusted R-EPOCH Given 1u pRBC that admission for chemo induced anemia Discharged 10/02 Follow up labs on 10/06 were significant for hgb 8.3 from 9.3, wbc 3.37 (ANC 3.1) from 5.26 (5) and plt 187 from 324 on 10/03. Patient given pegfilgrastim on 10/03 - wbc 0.2, hgb 7.9, plt 80 at OSH - follow trend of chemo induced pancytopenia - continue prophylaxis Acyclovir 400 mg BID; Bactrim DS MWF; Diflucan 200 mg daily (Day 6-21) Neutropenic fever (HCC) 10/08/201709/19 Overview: He was admitted following cycle 1 of chemo with neutropenic fever and bacteremia (with alpha-hemolytic streptococcus mitis/oralis likely secondary to GI translocation and completed a 14 day course of abx). WBC 0.2 (anc not reported) at OSH with temp >101. - given vancomycin and piperacillin/tazobactam at OSH Leukemoid reaction 09/30/2017 8 Overview: - 09/30: Patient noted to have leucocytosis (WBC 11.34) on this morning labs which is likely secondary to Neulasta vs CKD vs steroid effect. He is afebrile without any signs or symptoms of infection and will continue to closely monitor. Neutropenic fever (HCC) 08/20/2017/12/2017 Electrolyte imbalance 08/11/20172017 Overview: - Monitor daily labs and replete as needed Melena 08/09/2017 09/07/2017 Overview: - 08/08: Patient reporting dark brown/black stools upon admission and will get occult stool prior to restarting Xeralto to check for melena - 08/09: Occult stool positive, Dr. Sandra Cardenas notified and will arrange for colonoscopy (recent EGD was negative), order placed and scheduled for with patient to be on clear liquids at midnight on Tuesday with bowel prep starting Tuesday evening and NPO 2 hours prior to procedure on . - 08/13: No melena Encounter for chemotherapy management 08/08/2017 05/30/2018 Overview: - Cycle 6 DA-EPOCH. dose level -2 - Doxorubicin/Vincristine/Etoposide IV over 24 hr on D1-4; Cyclophosphamide IV over 1 hour on D5; Prednisone BID D1-5 - chemotherapy orders per Dr. Sandra Cardenas - consent in [facility] - monitor for toxicities - venous access: port - VTE ppx: on therapeutic AC with Xeralto - GI ppx: Protonix - ID ppx: Acylcovir, Bactrim, Fluconazole (D6-21) CINV (chemotherapy-induced n ausea and vomiting) 08/08/2017 05/30/2018 Overview: - Zofran 8 mg daily - Compazine 10 mg Q6H PRN Drug-induced constipation 08/08/2017 Overview: 07/22 Vincristine - Senna-S 2 tabs BID - Miralax daily PRN Plasma cell neoplasm 06/23/2017 020 Malignant neoplasm of urinary bladder 05/15/2017 08/27/2019 Acute DVT (deep venous thrombosis) 02/25/2017 08/27/2019 Overview: 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 with new acute DVT on 08/11/17 in RUE around PICC line in axilla and subclavian veins and new acute DVT in RLE posterior tibial vein and 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 - Xeralto 20 mg daily HTN (hypertension) 06/23/2016 0 Overview: - continue Carvedilol 6.25 daily - continue Amlodipine 5 mg daily - continue Lisinopril 20 daily - 12/13: Pt with increased BP, likely related to steroids Impaired fasting glucose 06/23/201602/2020 CKD (chronic kidney disease) stage 3, GFR 30-59 ml/min 06/23/2016 01/16/2021 Overview: Patient with hx of CKD stage 3 - avoid nephrotoxic medications - 12/09: on admission sCr up to 1.73, eGFR 39, received NS at 50 ml/hr - 12/10: Cr 1.63, close to baseline - 12/11: Cr 1.78 - 12/12: Cr 1.35 (stopped supplemental IVFs) - 12/13: Cr improved to 1.26 Pulmonary embolism 05/19/2009 0 Delirium 05/19/2009 05/30/2018 Acute renal failure 05/19/2009 08/27/19 20 Incontinence 05/19/2009 05/30/2018 Wound 05/19/2009 05/30/2018 Ileus 04/23/2009 09/07/2017 Malnutrition 04/23/2009 03/12/2020 DVT (deep venous thrombosis) 04/23/2009 08/27/2019 Malignant neoplasm of bladde r, part unspecified 11/08/2008 04/14/2009 documented as of this encounter (statuses as of 05/31/2023) [facility]2019 History of Past illness Narrative* Problem Noted Date Diagnosed Date Resolved Date Acute pain of right knee 01/17/201902/2020 Neck pain on right side 01/17/2019 03/0 02/2020 Thrombocytopenia 12/28/2017 05/30/2018 Anemia 11/11/2017 05/30/2018 Overview: - likely multifactorial related to chemotherapy, CKD, plasmablastic lymphoma - 12/10: Hb 7.9, recieved 1 unit PRBC - 12/11: Hb 8.9 - 12/12: Hb 8.1 - 12/13: Hb 8.0, will transfuse with 1 unit PRBC today for dropping Hb - will have CBC with diff drawn twice weekly Immunosuppression 10/21/2017 05/30/2018 Overview: Patient 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 difficile colitis 10/10/2017 018 Overview: Patient with watery diarrhea Found to have Cdiff Plan: Oral vancomycin Follow diarrhea Fluids as needed Pancytopenia 10/09/2017 12/09/2017 Overview: Patient s/p chemotherapy cycle 3 of dose adjusted R-EPOCH Given 1u pRBC that admission for chemo induced anemia Discharged 10/02 Follow up labs on 10/06 were significant for hgb 8.3 from 9.3, wbc 3.37 (ANC 3.1) from 5.26 (5) and plt 187 from 324 on 10/03. Patient given pegfilgrastim on 10/03 - wbc 0.2, hgb 7.9, plt 80 at OSH - follow trend of chemo induced pancytopenia - continue prophylaxis Acyclovir 400 mg BID; Bactrim DS MWF; Diflucan 200 mg daily (Day 6-21) Neutropenic fever (HCC) 10/08/201709/19 Overview: He was admitted following cycle 1 of chemo with neutropenic fever and bacteremia (with alpha-hemolytic streptococcus mitis/oralis likely secondary to GI translocation and completed a 14 day course of abx). WBC 0.2 (anc not reported) at OSH with temp >101. - given vancomycin and piperacillin/tazobactam at OSH Leukemoid reaction 09/30/2017 8 Overview: - 09/30: Patient noted to have leucocytosis (WBC 11.34) on this morning labs which is likely secondary to Neulasta vs CKD vs steroid effect. He is afebrile without any signs or symptoms of infection and will continue to closely monitor. Neutropenic fever (HCC) 08/20/2017 0312/2017 Electrolyte imbalance 08/11/20172017 Overview: - Monitor daily labs and replete as needed Melena 08/09/2017 09/07/2017 Overview: - 08/08: Patient reporting dark brown/black stools upon admission and will get occult stool prior to restarting Xeralto to check for melena - 08/09: Occult stool positive, Dr. Sandra Cardenas notified and will arrange for colonoscopy (recent EGD was negative), order placed and scheduled for with patient to be on clear liquids at midnight on Tuesday with bowel prep starting Tuesday evening and NPO 2 hours prior to procedure on . - 08/13: No melena Encounter for chemotherapy management 08/08/2017 05/30/2018 Overview: - Cycle 6 DA-EPOCH. dose level -2 - Doxorubicin/Vincristine/Etoposide IV over 24 hr on D1-4; Cyclophosphamide IV over 1 hour on D5; Prednisone BID D1-5 - chemotherapy orders per Dr. 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 with new acute DVT on 08/11/17 in RUE around PICC line in axilla and subclavian veins and new acute DVT in RLE posterior tibial vein and 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 - Xeralto 20 mg daily HTN (hypertension) 06/23/2016 0 Overview: - continue Carvedilol 6.25 daily - continue Amlodipine 5 mg daily - continue Lisinopril 20 daily - 12/13: Pt with increased BP, likely related to steroids Impaired fasting glucose 06/23/201602/2020 CKD (chronic kidney disease) stage 3, GFR 30-59 ml/min 06/23/2016 01/16/2021 Overview: Patient with hx of CKD stage 3 - avoid nephrotoxic medications - 12/09: on admission sCr up to 1.73, eGFR 39, received NS at 50 ml/hr - 12/10: Cr 1.63, close to baseline - 12/11: Cr 1.78 - 12/12: Cr 1.35 (stopped supplemental IVFs) - 12/13: Cr improved to 1.26 Pulmonary embolism 05/19/2009 0 Delirium 05/19/2009 05/30/2018 Acute renal failure 05/19/2009 08/27/19 20 Incontinence 05/19/2009 05/30/2018 Wound 05/19/2009 05/30/2018 Ileus 04/23/2009 09/07/2017 Malnutrition 04/23/2009 03/12/2020 DVT (deep venous thrombosis) 04/23/2009 08/27/2019 Malignant neoplasm of blajonase r, part unspecified 11/08/2008 04/14/2009 documented as of this encounter (statuses as of 06/04/2023) [facility]2019 History of Past illness Narrative* Problem Noted Date Diagnosed Date Resolved Date Acute pain of right knee 01/17/201902/2020 Neck pain on right side 01/17/2019 03/0 02/2020 Thrombocytopenia 12/28/2017 05/30/2018 Anemia 11/11/2017 05/30/2018 Overview: - likely multifactorial related to chemotherapy, CKD, plasmablastic lymphoma - 12/10: Hb 7.9, recieved 1 unit PRBC - 12/11: Hb 8.9 - 12/12: Hb 8.1 - 12/13: Hb 8.0, will transfuse with 1 unit PRBC today for dropping Hb - will have CBC with diff drawn twice weekly Immunosuppression 10/21/2017 05/30/2018 Overview: Patient 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 difficile colitis 10/10/2017 018 Overview: Patient with watery diarrhea Found to have Cdiff Plan: Oral vancomycin Follow diarrhea Fluids as needed Pancytopenia 10/09/2017 12/09/2017 Overview: Patient s/p chemotherapy cycle 3 of dose adjusted R-EPOCH Given 1u pRBC that admission for chemo induced anemia Discharged 10/02 Follow up labs on 10/06 were significant for hgb 8.3 from 9.3, wbc 3.37 (ANC 3.1) from 5.26 (5) and plt 187 from 324 on 10/03. Patient given pegfilgrastim on 10/03 - wbc 0.2, hgb 7.9, plt 80 at OSH - follow trend of chemo induced pancytopenia - continue prophylaxis Acyclovir 400 mg BID; Bactrim DS MWF; Diflucan 200 mg daily (Day 6-21) Neutropenic fever (HCC) 10/08/201709/19 Overview: He was admitted following cycle 1 of chemo with neutropenic fever and bacteremia (with alpha-hemolytic streptococcus mitis/oralis likely secondary to GI translocation and completed a 14 day course of abx). WBC 0.2 (anc not reported) at OSH with temp >101. - given vancomycin and piperacillin/tazobactam at OSH Leukemoid reaction 09/30/2017 8 Overview: - 09/30: Patient noted to have leucocytosis (WBC 11.34) on this morning labs which is likely secondary to Neulasta vs CKD vs steroid effect. He is afebrile without any signs or symptoms of infection and will continue to closely monitor. Neutropenic fever (HCC) 08/20/201712/2017 Electrolyte imbalance 08/11/20172017 Overview: - Monitor daily labs and replete as needed Melena 08/09/2017 09/07/2017 Overview: - 08/08: Patient reporting dark brown/black stools upon admission and will get occult stool prior to restarting Xeralto to check for melena - 08/09: Occult stool positive, Dr. Sandra Cardenas notified and will arrange for colonoscopy (recent EGD was negative), order placed and scheduled for with patient to be on clear liquids at midnight on Tuesday with bowel prep starting Tuesday evening and NPO 2 hours prior to procedure on . - 08/13: No melena Encounter for chemotherapy management 08/08/2017 05/30/2018 Overview: - Cycle 6 DA-EPOCH. dose level -2 - Doxorubicin/Vincristine/Etoposide IV over 24 hr on D1-4; Cyclophosphamide IV over 1 hour on D5; Prednisone BID D1-5 - chemotherapy orders per Dr. Sandra Cardenas - consent in [facility] - monitor for toxicities - venous access: port - VTE ppx: on therapeutic AC with Xeralto - GI ppx: Protonix - ID ppx: Acylcovir, Bactrim, Fluconazole (D6-21) CINV (chemotherapy-induced n ausea and vomiting) 08/08/2017 05/30/2018 Overview: - Zofran 8 mg daily - Compazine 10 mg Q6H PRN Drug-induced constipation 08/08/2017 Overview: 07/22 Vincristine - Senna-S 2 tabs BID - Miralax daily PRN Plasma cell neoplasm 06/23/2017 020 Malignant neoplasm of urinary bladder 05/15/2017 08/27/2019 Acute DVT (deep venous thrombosis) 02/25/2017 08/27/2019 Overview: 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 with new acute DVT on 08/11/17 in RUE around PICC line in axilla and subclavian veins and new acute DVT in RLE posterior tibial vein and 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 - Xeralto 20 mg daily HTN (hypertension) 06/23/2016 0 Overview: - continue Carvedilol 6.25 daily - continue Amlodipine 5 mg daily - continue Lisinopril 20 daily - 12/13: Pt with increased BP, likely related to steroids Impaired fasting glucose 06/23/201602/2020 CKD (chronic kidney disease) stage 3, GFR 30-59 ml/min 06/23/2016 01/16/2021 Overview: Patient with hx of CKD stage 3 - avoid nephrotoxic medications - 12/09: on admission sCr up to 1.73, eGFR 39, received NS at 50 ml/hr - 12/10: Cr 1.63, close to baseline - 12/11: Cr 1.78 - 12/12: Cr 1.35 (stopped supplemental IVFs) - 12/13: Cr improved to 1.26 Pulmonary embolism 05/19/2009 0 Delirium 05/19/2009 05/30/2018 Acute renal failure 05/19/2009 08/27/19 20 Incontinence 05/19/2009 05/30/2018 Wound 05/19/2009 05/30/2018 Ileus 04/23/2009 09/07/2017 Malnutrition 04/23/2009 03/12/2020 DVT (deep venous thrombosis) 04/23/2009 08/27/2019 Malignant neoplasm of bladde r, part unspecified 11/08/2008 04/14/2009 documented as of this encounter (statuses as of 06/04/2023) [facility] Diagnosis History of bladder cancer- Primary Personal history of malignant neoplasm of bladder Peritoneal dialysis catheter dysfunction, subsequent encounter (HCC) CKD (chronic kidney disease) stage 5, GFR less than 15 ml/min (HCC) Chronic kidney disease, Stage V [facility] Diagnosis Essential hypertension Unspecified essential hypertension [facility] Diagnosis Plasmablastic lymphoma (HCC) [facility]* Diagnosis Persistent atrial fibrillation (HCC)- Primary Atrial fibrillation Essential hypertension Unspecified essential hypertension Acute non-recurrent maxillary sinusitis [facility] Diagnosis Paresthesias Disturbance of skin sensation [facility] Diagnosis Plasmablastic lymphoma (HCC)- Primary Acute heart failure with preserved ejection fraction (HFpEF) (HCC) Persistent atrial fibrillation (HCC) Atrial fibrillation CKD (chronic kidney disease) stage 5, GFR less than 15 ml/min (HCC) Chronic kidney disease, Stage V Acute respiratory failure with hypoxia (HCC) Acute respiratory failure [facility] Diagnosis Persistent atrial fibrillation (HCC) Atrial fibrillation [facility] Diagnosis Essential hypertension- Primary Unspecified essential hypertension Paresthesias Disturbance of skin sensation Persistent atrial fibrillation (HCC) Atrial fibrillation Secondary hyperparathyroidism of renal origin (HCC) Secondary hyperparathyroidism (of renal origin) 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 ESRD (end stage renal disease) on dialysis (HCC) End stage renal disease IFG (impaired fasting glucose) Impaired fasting glucose Dyslipidemia Other and unspecified hyperlipidemia [facility]* Diagnosis Diarrhea, unspecified type- Primary Dizziness Dizziness and giddiness Discoloration of skin of foot Dyschromia, unspecified [facility] Diagnosis Ulcer of toe of left foot, with fat layer exposed (HCC)- Primary PAD (peripheral artery disease) (HCC) Peripheral vascular disease, unspecified [facility]* Diagnosis ESRD (end stage renal disease) on dialysis (HCC)- Primary End stage renal disease Anemia, unspecified type Open wound of left great toe, initial encounter Essential hypertension Unspecified essential hypertension [facility]* Diagnosis Critical limb ischemia of left lower extremity (HCC)- Primary Obesity, Class I, BMI 30-34.9 Obesity, unspecified ESRD (end stage renal disease) on dialysis (HCC) End stage renal disease Acute heart failure with preserved ejection fraction (HFpEF) (HCC) Essential hypertension Unspecified essential hypertension 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 Critical limb ischemia of left lower extremity (HCC) [facility]* Diagnosis Gastrointestinal hemorrhage associated with gastric ulcer- Primary [facility]* Diagnosis Ulcer of toe of left foot, with fat layer exposed (HCC)- Primary PAD (peripheral artery disease) (HCC) Peripheral vascular disease, unspecified Open wound of left great toe, initial encounter [facility]* Diagnosis PAD (peripheral artery disease) (HCC)- Primary Peripheral vascular disease, unspecified Post-operative state Other postprocedural status [facility]* Diagnosis Ulcer of toe of left foot, with fat layer exposed (HCC) PAD (peripheral artery disease) (HCC) Peripheral vascular disease, unspecified Open wound of left great toe, initial encounter Post-operative state Other postprocedural status documented in this encounter [facility] for referral (narrative)* Outpatient Procedure (Routine) - Closed Specialty Diagnoses / Procedures Referred By Contac t Referred To [facility] Diagnoses Essential hypertension Procedures ECG COMPLETE ECG ROUTINE ECG W/LEAST 12 LDS W/I&R Martin Nunez, [address] [place] [address] [facility] [place] [address] [place] [address] Referral ID Status Reason Start Date Expiration Date V isits Requested Visits Authorized [id number] Closed Auto-Generate d Referral 11/14/2021 11/14/2022 1 1 [facility] for referral (narrative)* Diagnostic Procedure Only (Routine) - Pending Review Specialty Diagnoses / Procedures Referred By Contac t Referred To Contact XR IMAGING Diagnoses Ulcer of toe of left foot, with fat layer exposed (HCC) PAD (peripheral artery disease) (HCC) Open wound of left great toe, initial encounter Procedures XR TOE AP/LAT/OBL LEFT RADEX TOE MINIMUM 2 VIEWS David Hill[address] [place] [address] [place] [address] Referral ID Status Reason Start Date Expiration Date Visits Requested Visits Authorized [id number] Pending Review Auto-Generat ed Referral 05/25/2023 06/23/2024 1 1 [facility] for referral (narrative)* Diagnostic Procedure Only (Routine) - Closed Specialty Diagnoses / Procedures Referred By Contac t Referred To Contact XR IMAGING Diagnoses Post-operative state Procedures XR FOOT GENERAL 3V AP/LAT/OBL LEFT RADEX FOOT COMPLETE MINIMUM 3 VIEWS David Hill[address] [place] [address] [place] [address] Referral ID Status Reason Start Date Expiration Date V isits Requested Visits Authorized [id number] Closed Auto-Generate d Referral 06/03/2023 07/02/2024 [address] [facility] for visit Narrative* Diagnostic Procedure Only (Routine) - Closed Specialty Diagnoses / Procedures Referred By Contac t Referred To Contact XR IMAGING Diagnoses Post-operative state Procedures XR FOOT GENERAL 3V AP/LAT/OBL LEFT RADEX FOOT COMPLETE MINIMUM 3 VIEWS David Hill [address] [place] [address] [place] [address] Referral ID Status Reason Start Date Expiration Date V isits Requested Visits Authorized [id number] Closed Auto-Generate d Referral 06/03/2023 07/02/2024 1 1 [facility] Summary Purpose Family History No Family History Records FoundNo Family History Records FoundNo Family History Records FoundNo Family History Records FoundNo Family History Records Found Advance Directives No Advanced Directives Records FoundDocuments on File Type Date 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 Advance Directive(s) Advance Directive(s) 09/24/2021 9:33 AM Advance Directive(s) 01/29/2021 8:47 AM Advance Directive(s) 04/29/2020 6:27 AM A DV DIR ON FILE OF 2017 Advance Directive(s) 04/17/2020 9:58 AM Advance Directive(s) 12/09/2017 11:26 AM Advance Directive(s) 11/11/2017 5:19 PM Advance Directive(s) 11/11/2017 1:05 PM Advance Directive(s) 10/21/2017 11:58 AM PT DOES NOT HAVE AD Advance Directive(s) 10/09/2017 2:01 PM Advance Directive(s) 09/28/2017 11:49 AM Advance Directive(s) 09/07/2017 12:54 PM Advance Directive(s) 08/09/2017 4:03 PM Advance Directive(s) 08/08/2017 11:59 AM Advance Directive(s) 07/18/2017 9:29 AM Documents on File Type Date 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 Advance Directive(s) Advance Directive(s) 09/24/2021 9:33 AM Advance Directive(s) 01/29/2021 8:47 AM Advance Directive(s) 04/29/2020 6:27 AM A DV DIR ON FILE OF 2017 Advance Directive(s) 04/17/2020 9:58 AM Advance Directive(s) 12/09/2017 11:26 AM Advance Directive(s) 11/11/2017 5:19 PM Advance Directive(s) 11/11/2017 1:05 PM Advance Directive(s) 10/21/2017 11:58 AM PT DOES NOT HAVE AD Advance Directive(s) 10/09/2017 2:01 PM Advance Directive(s) 09/28/2017 11:49 AM Advance Directive(s) 09/07/2017 12:54 PM Advance Directive(s) 08/09/2017 4:03 PM Advance Directive(s) 08/08/2017 11:59 AM Advance Directive(s) 07/18/2017 9:29 AM Documents on File Type Date 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 Advance Directive(s) 08/09/2017 4:03 PM Documents on File Type Date 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 Advance Directive(s) 08/09/2017 4:03 PM Latest Code Status on File Code Status Date Activated Date Inactivated Comments Full Code 05/25/2023 8:43 PM Question Answer Comments Full Code Order Discussed With: Patient Latest Code Status on File Code Status Date Activated Date Inactivated Comments Full Code 05/25/2023 8:43 PM Question Answer Comments Full Code Order Discussed With: Patient Latest Code Status on File Code Status Date Activated Date Inactivated Comments Full Code 05/25/2023 8:43 PM 05/31/2023 8:33 PM Question Answer Comments Full Code Order Discussed With: Patient Reason for Referral Specialty Diagnoses / Procedures Referred By Paris chavez Referred To Contact Nephrology Diagnoses ESRD (end stage renal disease) on dialysis (HCC) Procedures CONSULT TO NEPHROLOGY OFFICE/OUTPATIENT REPLACED BY [facility] MDM 60-74 MINUTES Martin Nunez, DO [address] [place] [address] Referral ID Status Reason Start Date Expiration Date Visits Requested Visits Authorized [id number] Authorized PCP Requested Referral 12/06/2022 12/06/2023 1 1 Additional Source Comments (unrecognized sect ion and content) No Status Records FoundNo Status Records FoundNo Status Records FoundNo Status Records FoundNo Status Records Found INFORMATION SOURCE (unrecogn ized section and content) DATE CREATED AUTHOR AUTHOR'S ORGANIZ ATION 10/13/2021 [facility] DATE CREATED AUTHOR AUTHOR'S ORGANIZ ATION 05/15/2023 [facility] DATE CREATED AUTHOR AUTHOR'S ORGANIZ ATION 05/26/2023 [facility] DATE CREATED AUTHOR AUTHOR'S ORGANIZ ATION 06/27/2023 [facility] Source Comments (unrecognize d section and content) In the event this informatio n is protected by the Federal Confidentiality of Alcohol and Drug Abuse Patient Records regulations: The Federal rules restrict any use of the information to criminally investigate or prosecute any alcohol or drug abuse patient.[facility] the event this information is protected by the Federal Confidentiality of Alcohol and Drug Abuse Patient Records regulations: The Federal rules restrict any use of the information to criminally investigate or prosecute any alcohol or drug abuse patient.[facility] the event this information is protected by the Federal Confidentiality of Alcohol and Drug Abuse Patient Records regulations: The Federal rules restrict any use of the information to criminally investigate or prosecute any alcohol or drug abuse patient.[facility] the event this information is protected by the Federal Confidentiality of Alcohol and Drug Abuse Patient Records regulations: The Federal rules restrict any use of the information to criminally investigate or prosecute any alcohol or drug abuse patient.[facility] the event this information is protected by the Federal Confidentiality of Alcohol and Drug Abuse Patient Records regulations: The Federal rules restrict any use of the information to criminally investigate or prosecute any alcohol or drug abuse patient.[facility] the event this information is protected by the Federal Confidentiality of Alcohol and Drug Abuse Patient Records regulations: The Federal rules restrict any use of the information to criminally investigate or prosecute any alcohol or drug abuse patient.[facility] the event this information is protected by the Federal Confidentiality of Alcohol and Drug Abuse Patient Records regulations: The Federal rules restrict any use of the information to criminally investigate or prosecute any alcohol or drug abuse patient.[facility] the event this information is protected by the Federal Confidentiality of Alcohol and Drug Abuse Patient Records regulations: The Federal rules restrict any use of the information to criminally investigate or prosecute any alcohol or drug abuse patient.[facility] the event this information is protected by the Federal Confidentiality of Alcohol and Drug Abuse Patient Records regulations: The Federal rules restrict any use of the information to criminally investigate or prosecute any alcohol or drug abuse patient.[facility] the event this information is protected by the Federal Confidentiality of Alcohol and Drug Abuse Patient Records regulations: The Federal rules restrict any use of the information to criminally investigate or prosecute any alcohol or drug abuse patient.[facility] the event this information is protected by the Federal Confidentiality of Alcohol and Drug Abuse Patient Records regulations: The Federal rules restrict any use of the information to criminally investigate or prosecute any alcohol or drug abuse patient.[facility] the event this information is protected by the Federal Confidentiality of Alcohol and Drug Abuse Patient Records regulations: The Federal rules restrict any use of the information to criminally investigate or prosecute any alcohol or drug abuse patient.[facility] the event this information is protected by the Federal Confidentiality of Alcohol and Drug Abuse Patient Records regulations: The Federal rules restrict any use of the information to criminally investigate or prosecute any alcohol or drug abuse patient.[facility] the event this information is protected by the Federal Confidentiality of Alcohol and Drug Abuse Patient Records regulations: The Federal rules restrict any use of the information to criminally investigate or prosecute any alcohol or drug abuse patient.[facility] the event this information is protected by the Federal Confidentiality of Alcohol and Drug Abuse Patient Records regulations: The Federal rules restrict any use of the information to criminally investigate or prosecute any alcohol or drug abuse patient.[facility] the event this information is protected by the Federal Confidentiality of Alcohol and Drug Abuse Patient Records regulations: The Federal rules restrict any use of the information to criminally investigate or prosecute any alcohol or drug abuse patient.[facility] the event this information is protected by the Federal Confidentiality of Alcohol and Drug Abuse Patient Records regulations: The Federal rules restrict any use of the information to criminally investigate or prosecute any alcohol or drug abuse patient.[facility] the event this information is protected by the Federal Confidentiality of Alcohol and Drug Abuse Patient Records regulations: The Federal rules restrict any use of the information to criminally investigate or prosecute any alcohol or drug abuse patient.[facility] the event this information is protected by the Federal Confidentiality of Alcohol and Drug Abuse Patient Records regulations: The Federal rules restrict any use of the information to criminally investigate or prosecute any alcohol or drug abuse patient.[facility] the event this information is protected by the Federal Confidentiality of Alcohol and Drug Abuse Patient Records regulations: The Federal rules restrict any use of the information to criminally investigate or prosecute any alcohol or drug abuse patient.[facility] the event this information is protected by the Federal Confidentiality of Alcohol and Drug Abuse Patient Records regulations: The Federal rules restrict any use of the information to criminally investigate or prosecute any alcohol or drug abuse patient.[facility] the event this information is protected by the Federal Confidentiality of Alcohol and Drug Abuse Patient Records regulations: The Federal rules restrict any use of the information to criminally investigate or prosecute any alcohol or drug abuse patient.[facility] the event this information is protected by the Federal Confidentiality of Alcohol and Drug Abuse Patient Records regulations: The Federal rules restrict any use of the information to criminally investigate or prosecute any alcohol or drug abuse patient.[facility] the event this information is protected by the Federal Confidentiality of Alcohol and Drug Abuse Patient Records regulations: The Federal rules restrict any use of the information to criminally investigate or prosecute any alcohol or drug abuse patient.[facility] the event this information is protected by the Federal Confidentiality of Alcohol and Drug Abuse Patient Records regulations: The Federal rules restrict any use of the information to criminally investigate or prosecute any alcohol or drug abuse patient.[facility] the event this information is protected by the Federal Confidentiality of Alcohol and Drug Abuse Patient Records regulations: The Federal rules restrict any use of the information to criminally investigate or prosecute any alcohol or drug abuse patient.[facility] the event this information is protected by the Federal Confidentiality of Alcohol and Drug Abuse Patient Records regulations: The Federal rules restrict any use of the information to criminally investigate or prosecute any alcohol or drug abuse patient.[facility] the event this information is protected by the Federal Confidentiality of Alcohol and Drug Abuse Patient Records regulations: The Federal rules restrict any use of the information to criminally investigate or prosecute any alcohol or drug abuse patient.[facility] the event this information is protected by the Federal Confidentiality of Alcohol and Drug Abuse Patient Records regulations: The Federal rules restrict any use of the information to criminally investigate or prosecute any alcohol or drug abuse patient.[facility] the event this information is protected by the Federal Confidentiality of Alcohol and Drug Abuse Patient Records regulations: The Federal rules restrict any use of the information to criminally investigate or prosecute any alcohol or drug abuse patient.[facility] the event this information is protected by the Federal Confidentiality of Alcohol and Drug Abuse Patient Records regulations: The Federal rules restrict any use of the information to criminally investigate or prosecute any alcohol or drug abuse patient.[facility] the event this information is protected by the Federal Confidentiality of Alcohol and Drug Abuse Patient Records regulations: The Federal rules restrict any use of the information to criminally investigate or prosecute any alcohol or drug abuse patient.[facility]In the event this information is protected by the Federal Confidentiality of Alcohol and Drug Abuse Patient Records regulations: The Federal rules restrict any use of the information to criminally investigate or prosecute any alcohol or drug abuse patient.[facility] DaytonIn the event this information is protected by the Federal Confidentiality of Alcohol and Drug Abuse Patient Records regulations: The Federal rules restrict any use of the information to criminally investigate or prosecute any alcohol or drug abuse patient.[facility] DaytonIn the event this information is protected by the Federal Confidentiality of Alcohol and Drug Abuse Patient Records regulations: The Federal rules restrict any use of the information to criminally investigate or prosecute any alcohol or drug abuse patient.[facility] DaytonIn the event this information is protected by the Federal Confidentiality of Alcohol and Drug Abuse Patient Records regulations: The Federal rules restrict any use of the information to criminally investigate or prosecute any alcohol or drug abuse patient.[facility] DaytonIn the event this information is protected by the Federal Confidentiality of Alcohol and Drug Abuse Patient Records regulations: The Federal rules restrict any use of the information to criminally investigate or prosecute any alcohol or drug abuse patient.[facility] DaytonIn the event this information is protected by the Federal Confidentiality of Alcohol and Drug Abuse Patient Records regulations: The Federal rules restrict any use of the information to criminally investigate or prosecute any alcohol or drug abuse patient.[facility] DaytonIn the event this information is protected by the Federal Confidentiality of Alcohol and Drug Abuse Patient Records regulations: The Federal rules restrict any use of the information to criminally investigate or prosecute any alcohol or drug abuse patient.[facility] DaytonIn the event this information is protected by the Federal Confidentiality of Alcohol and Drug Abuse Patient Records regulations: The Federal rules restrict any use of the information to criminally investigate or prosecute any alcohol or drug abuse patient.[facility] DaytonIn the event this information is protected by the Federal Confidentiality of Alcohol and Drug Abuse Patient Records regulations: The Federal rules restrict any use of the information to criminally investigate or prosecute any alcohol or drug abuse patient.[facility] DaytonIn the event this information is protected by the Federal Confidentiality of Alcohol and Drug Abuse Patient Records regulations: The Federal rules restrict any use of the information to criminally investigate or prosecute any alcohol or drug abuse patient.[facility] DaytonIn the event this information is protected by the Federal Confidentiality of Alcohol and Drug Abuse Patient Records regulations: The Federal rules restrict any use of the information to criminally investigate or prosecute any alcohol or drug abuse patient.[facility] Reason for Visit (unrecogniz ed section and content) Reason Onset Date Comments Refill Request 10/21/2021 Reason Onset Date Comments Refill Request 11/10/2021 Reason Comments F/U 3 months possible irregular h eart beat Reason Comments Patient Update Reason Comments Refill Request Reason Onset Date Comments Outpatient Colonoscopy 12/08/2021 Reason Comments [facility] verbal orders needed Reason Comments [facility] Plan of Care Reason Comments Insurance Authorization Reason Comments [facility], PT plan of care FYI-No Action Needed No call back needed Reason Comments blood culture results Reason Comments Orders Reason Comments Patient Question Reason Comments Home Health Point of Care Results Reason Onset Date Comments Refill Request 07/09/2022 Reason Comments Follow Up Reason Comments Referral - Kidney Txp Reason Comments lab information Reason Comments Diarrhea Dizziness, left foot has discoloration, toes look injured x 1 week Reason Comments [facility] Order Request Reason Comments home health update Reason Comments [facility] need for verbal Reason Comments [facility], PT delay in care order Reason Comments PT plan of care Reason Comments Medication Request Amiodarone 200 mg da twan Reason Comments Appointment Reason Comments Follow Up Ulcer Reason Comments Hospital F/U Low hemoglobin Reason Comments Procedure LLE angiogram Reason Comments Consult Reason Comments Follow Up Phone Call RC f/u 1st attempt Reason Onset Date Comments Transition Of Care 05/24/2023 [facility] hospital discharge Reason Comments Established Patient Follow Up Ulcer Reason Onset Date Comments Transition Of Care 05/26/2023 [facility] hospital admission Reason Comments Post Op Amputation Care Teams (unrecognized sec tion and content) 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 Specialty Start Date End Date Martin Nunez DO [address] [place], [place] [id number] PCP - General Family Practice 12/31/15 Sonia He I, DO [address] [id number] Nephrology 04/08/20 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 Specialty Start Date End Date Martin Nunez DO [address] [place], [place] [id number] PCP - General Family Practice 12/31/15 Sonia He I, DO [address] [place] [address] Nephrology 04/08/20 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 Specialty Start Date End Date Martin Nunez, DO [address] [place] [address] PCP - General Family Practice 12/31/15 Sonia He I, DO [address] [place] [address] Nephrology 04/08/20 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 Specialty Start Date End Date Martin Nunez, DO [address] [place] [address] PCP - General Family Practice 12/31/15 Sonia He I, DO [address] [place] [address] Nephrology 04/08/20 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 Specialty Start Date End Date Martin Nunez, DO [address] [place] [address] PCP - General Family Practice 12/31/15 Sonia He I, DO [address] [place] [address] Nephrology 04/08/20 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 Specialty Start Date End Date Martin Nunez, DO [address] [place] [address] PCP - General Family Medicine 12/31/15 Sonia He I, DO [address] [place] [address] Nephrology 04/08/20 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 Specialty Start Date End Date Martin Nunez, DO [address] [place] [address] PCP - General Family Medicine 12/31/15 Sonia He I, DO [address] [place] [address] Nephrology 04/08/20 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 Specialty Start Date End Date Martin Nunez, DO [address] [place] [address] PCP - General Family Medicine 12/31/15 Sonia He I, DO [address] [place] [address] Nephrology 04/08/20 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 Specialty Start Date End Date Martin Nunez, DO [address] [place] [address] PCP - General Family Medicine 12/31/15 Sonia He I, DO [address] [place] [address] Nephrology 04/08/20 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 Specialty Start Date End Date Martin Nunez, DO [address] [place] [address] PCP - General Family Medicine 12/31/15 Sonia He I, DO [address] [place] [address] Nephrology 04/08/20 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 Specialty Start Date End Date Martin Nunez, DO [address] [place] [address] PCP - General Family Medicine 12/31/15 Sonia He I, DO [address] [place] [address] Nephrology 04/08/20 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 Specialty Start Date End Date Martin Nunez, DO [address] [place] [address] PCP - General Family Medicine 12/31/15 Sonia He I, DO [address] [place] [address] Nephrology 04/08/20 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 Specialty Start Date End Date Martin Nunez, DO [address] [place] [address] PCP - General Family Medicine 12/31/15 Sonia He I, [address] [place] [address] Nephrology 04/08/20 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 Specialty Start Date End Date Martin Nunez, DO [address] [place] [address] PCP - General Family Medicine 12/31/15 Sonia He I, DO [address] [place] [address] Nephrology 04/08/20 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 Specialty Start Date End Date Martin Nunez DO [address] [place] [address] PCP - General Family Medicine 12/31/15 Sonia He I, [address] [place] [address] Nephrology 04/08/20 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 Specialty Start Date End Date Martin Nunez DO [address] [place] [address] PCP - General Family Medicine 12/31/15 Sonia He I, [address] [place] [address] Nephrology 04/08/20 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 Specialty Start Date End Date Martin Nunez, [address] [place] [address] PCP - General Family Medicine 12/31/15 Sonia He I, [address] [place] [id number] Nephrology 04/08/20 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 Specialty Start Date End Date Martin Nunez, [address] [place] [address] PCP - General Family Medicine 12/31/15 Sonia He I, [address] [address] Nephrology 04/08/20 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 Specialty Start Date End Date Martin Nunez DO [address] [place] [address] PCP - General Family Medicine 12/31/15 Sonia He I, [address] [address] Nephrology 04/08/20 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 Specialty Start Date End Date Martin Nunez DO [address] [place] [address] PCP - General Family Medicine 12/31/15 Sonia He I, [address] [place] [address] Nephrology 04/08/20 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 Specialty Start Date End Date Martin Nunez DO [address] [place] [address] PCP - General Family Medicine 12/31/15 Sonia He I, [address] [place] [address] Nephrology 04/08/20 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 Specialty Start Date End Date Martin Nunez, [address] [place] [address] PCP - General Family Medicine 12/31/15 Sonia He I, DO [address] [place] [address] Nephrology 04/08/20 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 Specialty Start Date End Date Martin Nunez, [address] [place] [address] PCP - General Family Medicine 12/31/15 Sonia He I, [address] [facility] [address] [place] [address] Nephrology 04/08/20 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 Specialty Start Date End Date Martin Nunez, [address] [place] [address] PCP - General Family Medicine 12/31/15 Sonia He I, DO [address] [place] [address] Nephrology 04/08/20 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 Specialty Start Date End Date Martin Nunez DO [address] [place] [address] PCP - General Family Medicine 12/31/15 Sonia He I, DO [address] [place] [address] Nephrology 04/08/20 Enrique Freitas, garment tag stringer Insurance Executive 05/24/23 06/23/23 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 Specialty Start Date End Date Martin Nunez DO [address] [place] [address] PCP - General [facility] 12/31/15 Sonia He I, DO [address] [place] [address] Nephrology 04/08/20 Enrique Freitas, garment tag stringer Insurance Executive 05/24/23 06/23/23 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 Specialty Start Date End Date Martin Nunez DO [address] [place] [address] PCP - General Family Medicine 12/31/15 Sonia He I, [address] [place] [address] Nephrology 04/08/20 Enrique Freitas, garment tag stringer Insurance Executive 05/24/23 05/26/23 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 Specialty Start Date End Date Martin Nunez DO [address] [facility] [place] [place] [address] PCP - General Family Medicine 12/31/15 Sonia He I, DO [address] [place] [address] Nephrology 04/08/20 Enrique Freitas RN Primary Care Insurance Executive 05/24/23 05/26/23 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 Specialty Start Date End Date Martin Nunez, DO [address] [facility] [place] [address] PCP - [facility] 12/31/15 Sonia He I, DO [address] [place] [address] Nephrology 04/08/20 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 Specialty Start Date End Date Martin Nunez, DO [address] [place] [address] PCP - General Family Medicine 12/31/15 Sonia He I, DO [address] [place] [address] Nephrology 04/08/20 FOR RECORDS PERTAINING TO PATIENTS WHO ARE OR HAVE BEEN ENROLLED IN A CHEMICAL DEPENDENCY/SUBSTANCEABUSE PROGRAM, SOME INFORMATION MAY BE OMITTED. This clinical summary was aggregated from multiple sources. Caution should be exercised in using it in the provision of clinical care. This summary normalizes information from multiple sources, and as a consequence, information in this document may materially change the coding, format and clinical context of patient data. In addition, data may be omitted in some cases. CLINICAL DECISIONS SHOULD BE BASED ON THE PRIMARY CLINICAL RECORDS. [employer] provides no warranty or guarantee of the accuracy or completeness of information in this document.
--- NOTE | 2023-06-28 20:58 | EX.ED.DYSGE1 ---
HPI History of Present Illness Chief Complaint: Wound Informant: patient and family Narrative Narrative: 77-year-old male presenting to the emergency department with bleeding wounds. Patient states that over the last weekend he took his dialysis dressing off of his left upper arm resulting in a skin tear of the anterior aspect. He states that he takes Eliquis and Plavix. He has not been able to get the wound to stop bleeding. He has had it looked at a couple times at dialysis and tonight to talk to his doctor who sent him to emergency. He also had a partial toe amputation by [facility] surgeon and was seen in the office yesterday where they took out the stitches and then placed 2 more due to the wound being open. He states that the wound has been bleeding and would like that addressed as well. [facility] Medical History Anemia Aortic root dilatation Arthritis Atrial fibrillation Bladder cancer Cancer Cardiology follow-up encounter (~04/04/23) CHF (congestive heart failure) CKD (chronic kidney disease) stage 5, GFR less than 15 ml/min Coronary artery disease Dialysis patient Duodenal ulcer ESRD (end stage renal disease) on dialysis Essential hypertension Former smoker Hepatic cyst History of atrial fibrillation History of DVT (deep vein thrombosis) History of echocardiogram (~06/30/22) History of GI bleed History of pulmonary embolism History of solitary pulmonary nodule History of stress test (~05/03/22) HIT (heparin-induced thrombocytopenia) HLD (hyperlipidemia) Hyperparathyroidism Iron deficiency anemia Kidney disease Left upper chest discomfort Loss of hearing Low iron Lower gastrointestinal bleeding Lymphoma Paroxysmal A-fib Preop cardiovascular exam Pulmonary embolism Renal calculus Sleep apnea VTE (venous thromboembolism) Wears dentures Wears glasses Wears partial dentures Wide-complex tachycardia Home Medications carvedilol 6.25 mg tablet 3.125 mg PO BID blood pressure 04/24/17 [History Last Taken 02/28/23 11:00 3.125 mg] vitamin B complex 1 tab PO DAILY SUPPLEMENT 07/02/20 [History Last Taken 02/28/23 11:00] sucroferric oxyhydroxide 500 mg chewable tablet (Velphoro) 500 mg PO .with meals anemia 03/01/23 [History Last Taken Unknown] sucralfate 1 gram tablet 1 g PO 1HR_ACHS reflux #120 tabs 03/05/23 [Rx Last Taken Unknown] amiodarone 200 mg tablet 200 mg PO DAILY heart rate #30 tabs 04/04/23 [Rx Last Taken Unknown] apixaban 2.5 mg tablet (Eliquis) 2.5 mg PO BID blood thinner 04/04/23 [History Last Taken 05/15/23] budesonide 3 mg capsule,delayed,extended release 9 mg PO DAILY stomach 06/16/23 [History Last Taken Unknown] vitamin B complex-vitamin C-folic acid 0.8 mg tablet (Bibiana-Leoncio) 1 tab PO DAILY supplement 06/16/23 [History Last Taken Unknown] ascorbate calcium (vitamin C) 500 mg tablet 1 g (2 x 500 mg) PO BID #60 tabs 06/18/23 [Rx Last Taken Unknown] clopidogrel 75 mg tablet 75 mg PO DAILY #0 tabs 06/18/23 [Rx Last Taken Unknown] ferrous sulfate 325 mg (65 mg iron) tablet,delayed release 325 mg PO DAILY #30 tabs 06/18/23 [Rx Last Taken Unknown] pantoprazole 40 mg tablet,delayed release 40 mg PO BID reflux #60 tabs 06/18/23 [Rx Last Taken Unknown] Allergy/AdvReac Type Severity Reaction Status Date / Time Iodinated Contrast Media Allergy Intermediate KIDNEY Verified 06/28/23 18:02 FAILURE enoxaparin [From Lovenox] Allergy Other Verified 06/28/23 18:02 heparin Allergy Other Verified 06/28/23 18:02 aspirin AdvReac Other Verified 06/28/23 18:02 Family History Father Cancer lung Arrhythmia Brother Cancer Mother Dementia Surgical History AV fistula H/O total cystectomy History of bladder surgery History of cataract extraction History of corrected cleft lip and palate History of foot surgery History of tonsillectomy S/P peripheral artery angioplasty with stent placement Social History household members: none Smoking Status: Former smoker how long ago did patient quit smoking: Started age 7, stopped at 17, started again 22-2 ppd until quit 2008 alcohol intake: never substance use type: does not use caffeine: No ROS ROS ED Constitutional Constitutional ED: Denies chills or weight loss Eyes Eyes: Denies change in vision or diplopia ENT ENT ED: Denies ear pain, rhinorrhea or sore throat Cardiovascular Cardiovascular: Denies chest pain, orthopnea, palpitations or racing heartbeat Respiratory/Chest Respiratory/Chest: Denies cough, dyspnea or orthopnea Gastrointestinal Gastrointestinal: Denies abdominal pain, diarrhea, nausea or vomiting Genitourinary Genitourinary ED: Denies dysuria, hematuria or urinary frequency Musculoskeletal Musculoskeletal: Denies arthralgias or myalgias Integumentary Reports other Details: See history of present illness ; Denies abscess or rash Neurologic Neurologic: Denies headache(s) or weakness Psychiatric Psychiatric: Denies anxiety, depression, suicidal ideation or suicidal thoughts Endocrine Endocrinology: Denies polydipsia, polyphagia or polyuria Allergic/Immunologic Allergic/Immunologic ED: Denies mouth swelling, tongue swelling or urticaria EXAM Physical Exam Const Vital Signs: 06/28/23 18:00 Temperature 97.5 F L Temperature Source Temporal Pulse Rate 70 Respiratory Rate 16 Blood Pressure 121/34 H Blood Pressure Mean 63 Pulse Ox 99 Oxygen Delivery Method Room Air Positive well nourished and well developed General Appearance ED: well developed HEENT Reports normocephalic, head/scalp atraumatic and moist mucous membranes Eyes PERRL and EOMs intact bilaterally Neck no lymphadenopathy, supple and no JVD Resp normal respiratory effort and clear to auscultation bilaterally Cardio regular rate, regular rhythm and no murmurs GI normal to inspection, nondistended, normoactive bowel sounds and non-tender Palpation: soft Back/Spine no CVA tenderness and normal ROM Extremity Extremity Narrative: Right anterior mid humerus demonstrates a skin tear of about 3 x 3 cm. There is some remaining skin on the periphery is unable to smooth out and cover the wound. There is some mild capillary bleeding noted in the mid to lateral aspect of the wound. Left great toe demonstrates surgical changes. There are 2 stitches in the incision laterally. The main part of the incision is open and there is mild venous bleeding. The dressing was completely saturated. The great toe and second toe and some of the surrounding skin on the distal dorsum of the foot and plantar surface is extremely moist and friable. General Extremety ED: Negative for edema General Extremity: Negative for edema Neuro oriented x3 and CN's II-XII intact bilaterally Sensorium / Orientation: alert Motor Exam: strength 5/5 throughout Psych mental status grossly normal Mood & Affect: Negative for depressed or tearful Skin no rashes or lesions noted and no wounds MDM MDM MDM Narrative Medical decision making narrative: \The upper arm wound I was able to Dermabond some of the skin in place to provide coverage. After direct pressure I could clearly see the small areas of oozing from capillaries. I used silver nitrate to cauterize this area and the wound was left open to be observed. Left foot dressing was taken down. This was completely saturated with blood. The foot was cleansed and dried. 4 x 4's were used to placed in between each toe to help dry. After some time it was noted the patient was having some active bleeding on the dorsum of the foot. Family states that this is where he received an injection. This wound was cleansed Dermabond was applied no further bleeding. The toe wound appears to have dehisced. Surgicel was placed followed by dressing and then Elfego wrap. He was advised to elevate the foot tonight and to call his surgeon tomorrow. I do not feel that I can adequately closed this wound with suture due to swelling in the subcutaneous tissue. Discharge Plan Triage Chief Complaint: Wound ED Provider: Behzad Phillips Dx/Rx/DC Orders Clinical Impression: Encounter for postoperative wound check, Anemia, Chronic anticoagulation, Skin tear of upper extremity Instructions: ED Post Op Wound Check, Bleeding, ED Skin Tear (Skin Avulsion) Prescriptions: No Action Eliquis 2.5 mg tablet 2.5 mg PO BID Hold Instructions: Hold for 5 days. carvedilol 6.25 MG tablet 3.125 mg PO BID vitamin B complex 1 EACH tablet 1 tab PO DAILY Velphoro 500 mg tablet,chewable 500 mg PO .with meals sucralfate 1 gram Tablet 1 g PO 1HR_ACHS Qty: 120 0RF budesonide 3 mg capsule,delayed,extend.release 9 mg PO DAILY Bibiana-Leoncio 0.8 mg tablet 1 tab PO DAILY Patient Comments: TAKE 1 TABLET BY MOUTH EVERY DAY WITH FOOD ferrous sulfate 325 mg (65 mg iron) tablet,delayed release (DR/EC) 325 mg PO DAILY Qty: 30 2RF ascorbate calcium (vitamin C) 500 mg tablet 1 g PO BID Qty: 60 2RF pantoprazole 40 mg Tablet,Delayed Release (Dr/Ec) 40 mg PO BID Qty: 60 3RF Rx Instructions: Take twice daily for 8 weeks then will decrease to daily clopidogrel 75 mg Tablet 75 mg PO DAILY Qty: 0 0RF amiodarone 200 mg tablet 200 mg PO DAILY Qty: 30 11RF Rx Instructions: Twice daily for 7 days then decrease to 1 tablet daily Primary Care Provider: Martin Nunez Referrals: Martin Nunez, [Primary Care Provider] - Activity Restrictions/Additional Instructions: Please call your surgeon's office and see if they can see you by the end of the week for wound check. Disposition Disposition: Home, Self Care
[2023-06-28 22:07] VITALS: BP 121/34; PULSE 70; RESP 16; O2SAT 99
== END 2023-06-28 22:11 | disposition home or self-care (01) ==
PROVIDERS: Emergency Provider Emergency Medicine; PCP Student in an Organized Health Care Education/Training Program; Visit Provider Emergency Medicine
DX: S41.112A Laceration without foreign body of left upper arm, initial encounter (principal); Z99.2 Dependence on renal dialysis; I50.9 Heart failure, unspecified; N18.6 End stage renal disease; G47.30 Sleep apnea, unspecified; Z87.891 Personal history of nicotine dependence; Z79.01 Long term (current) use of anticoagulants; X58.XXXA Exposure to other specified factors, initial encounter; Z86.718 Personal history of other venous thrombosis and embolism; Z86.711 Personal history of pulmonary embolism
CPT/HCPCS: 12002; 99282

== ENCOUNTER 2023-07-28 12:17 | Emergency (ER) | payer MEDICARE, BC, SELFPAY ==
[2023-07-28 12:19] VITALS: TEMP 36; O2SAT 100; BMI 31.9
[2023-07-28 12:23] VITALS: BP 127/78; PULSE 99; RESP 18; O2SAT 97
--- NOTE | 2023-07-28 12:25 | RAD_ITS ---
INDICATION: chest pain EXAMINATION/TECHNIQUE: X-RAY - XR Chest 1 View COMPARISON: Prior study dated: 03/29/2023. FINDINGS: LINES/DEVICES: Right-sided Port-A-Cath in stable position. LUNGS: No consolidation, edema or effusion. No pneumothorax. MEDIASTINUM AND CARDIOVASCULAR STRUCTURES: Cardiac silhouette not enlarged. Central airways and mediastinal contour are unremarkable. BONES AND SOFT TISSUES: Unchanged. RAD/Chest 1 View (Portable) IMPRESSION: No radiographic evidence of acute cardiopulmonary disease. Electronically Signed: Pedro Luis Mancuso MD at 13:06 EST ,
[2023-07-28 13:09] LABS: Absolute Lymphocyte Count 0.21 X10^3/uL (0.83-4.51); Basophil# 0.02 X10^3/uL; Basophil% 0.3 % (0-1); Eosinophil# 0.06 X10^3/uL; Eosinophils% 0.8 % (0-5); Hematocrit 27.9 % (40-54); Hemoglobin 8.6 g/dL (13.0-16.5); Lymphocyte # 0.21 X10^3/ul (0.83-4.51); Lymphocyte % 2.7 % (19-41); Mean Corp Hgb Conc 30.8 g/dL (32-36); Mean Corpuscular Hgb 32.7 pg (27.0-32.0); Mean Corpuscular Volume 106.1 fL (80-94); Mean Platelet Vol. 11.5 fl (6.2-12.0); Monocyte# 0.55 X10^3/uL; NRBC Flagged by Analyzer 0 % (0-5); Neutrophil # 7.04 X10^3/uL (2.7-7.7); Neutrophil % 88.8 % (47-70); POSITIVE COUNT YES; POSITIVE DIFFERENTIAL YES; POSITIVE MORPHOLOGY YES; Platelet Count 52 K/mm3 (150-450); RBC Distribution Width CV 18.2 % (11.6-14.6); RBC Distribution Width SD 70.4 fl (35.1-43.9); Red Blood Count 2.63 M/mm3 (4.6-6.2); White Blood Count 7.9 K/mm3 (4.4-11.0)
[2023-07-28 13:11] LABS: Differential Indicated SCAN CRITERIA MET
[2023-07-28 13:21] LABS: Anisocytosis 1+; Platelet Estimate MOD DEC (ADEQ)
--- NOTE | 2023-07-28 13:51 | ED.VIS.DYS ---
HPI History of Present Illness Chief Complaint: Shortness of Breath Narrative Narrative: 77-year-old male presenting with dyspnea. He has a history of CHF, end-stage renal disease on dialysis Tuesday, Tuesday as well as PE on Eliquis. Patient states he was at dialysis today and received about an hour of dialysis when he started feel short of breath. He states he has a 2/10 pain of retrosternal discomfort with the shortness of breath that lasted about an hour. Patient states it is now gone but he still feels short of breath. He states this happened once before in the past while he was at a [facility] dialysis session and he was given a DuoNeb and his symptoms improved. [facility] Medical History Anemia Aortic root dilatation Arthritis Atrial fibrillation Bladder cancer Cancer Cardiology follow-up encounter (~04/04/23) CHF (congestive heart failure) CKD (chronic kidney disease) stage 5, GFR less than 15 ml/min Coronary artery disease Dialysis patient Duodenal ulcer ESRD (end stage renal disease) on dialysis Essential hypertension Former smoker Hepatic cyst History of atrial fibrillation History of DVT (deep vein thrombosis) History of echocardiogram (~06/30/22) History of GI bleed History of pulmonary embolism History of solitary pulmonary nodule History of stress test (~05/03/22) HIT (heparin-induced thrombocytopenia) HLD (hyperlipidemia) Hyperparathyroidism Iron deficiency anemia Kidney disease Left upper chest discomfort Loss of hearing Low iron Lower gastrointestinal bleeding Lymphoma Paroxysmal A-fib Preop cardiovascular exam Pulmonary embolism Renal calculus Sleep apnea VTE (venous thromboembolism) Wears dentures Wears glasses Wears partial dentures Wide-complex tachycardia Home Medications carvedilol 6.25 mg tablet 3.125 mg PO BID blood pressure 04/24/17 [History Last Taken 02/28/23 11:00 3.125 mg] vitamin B complex 1 tab PO DAILY SUPPLEMENT 07/02/20 [History Last Taken 02/28/23 11:00] sucroferric oxyhydroxide 500 mg chewable tablet (Velphoro) 500 mg PO .with meals anemia 03/01/23 [History Last Taken Unknown] sucralfate 1 gram tablet 1 g PO 1HR_ACHS reflux #120 tabs 03/05/23 [Rx Last Taken Unknown] amiodarone 200 mg tablet 200 mg PO DAILY heart rate #30 tabs 04/04/23 [Rx Last Taken Unknown] apixaban 2.5 mg tablet (Eliquis) 2.5 mg PO DAILY blood thinner 04/04/23 [History Last Taken 05/15/23] budesonide 3 mg capsule,delayed,extended release 9 mg PO DAILY stomach 06/16/23 [History Last Taken Unknown] vitamin B complex-vitamin C-folic acid 0.8 mg tablet (Bibiana-Leoncio) 1 tab PO DAILY supplement 06/16/23 [History Last Taken Unknown] ascorbate calcium (vitamin C) 500 mg tablet 1 g (2 x 500 mg) PO BID #60 tabs 06/18/23 [Rx Last Taken Unknown] clopidogrel 75 mg tablet 75 mg PO DAILY #0 tabs 06/18/23 [Rx Last Taken Unknown] ferrous sulfate 325 mg (65 mg iron) tablet,delayed release 325 mg PO DAILY #30 tabs 06/18/23 [Rx Last Taken Unknown] pantoprazole 40 mg tablet,delayed release 40 mg PO BID reflux #60 tabs 06/18/23 [Rx Last Taken Unknown] midodrine 5 mg tablet 5 mg PO TUTHSA 07/28/23 [History Last Taken Unknown] Allergy/AdvReac Type Severity Reaction Status Date / Time Iodinated Contrast Media Allergy Intermediate KIDNEY Verified 07/28/23 12:18 FAILURE enoxaparin [From Lovenox] Allergy Other Verified 07/28/23 12:18 heparin Allergy Other Verified 07/28/23 12:18 aspirin AdvReac Other Verified 07/28/23 12:18 Family History Father Cancer lung Arrhythmia Brother Cancer Mother Dementia Surgical History AV fistula H/O total cystectomy History of bladder surgery History of cataract extraction History of corrected cleft lip and palate History of foot surgery History of tonsillectomy S/P peripheral artery angioplasty with stent placement Social History household members: none Smoking Status: Former smoker how long ago did patient quit smoking: Started age 7, stopped at 17, started again 22-2 ppd until quit 2008 alcohol intake: never substance use type: does not use caffeine: No ROS ROS ED Constitutional Constitutional ED: Denies chills, fever(s) or sweats Eyes Eyes: Denies blurry vision or change in vision ENT ENT ED: Denies ear pain or sore throat Cardiovascular Cardiovascular: Reports chest pain; Denies palpitations or racing heartbeat Respiratory/Chest Respiratory/Chest: Reports dyspnea; Denies cough or sputum Gastrointestinal Gastrointestinal: Denies abdominal pain, constipation, diarrhea, nausea or vomiting Genitourinary Genitourinary ED: Denies dysuria, hematuria or urinary frequency Musculoskeletal Musculoskeletal: Denies arthralgias, myalgias or neck pain Integumentary Denies abscess, Abrasions or rash Neurologic Neurologic: Denies headache(s), paresthesias or weakness Psychiatric Psychiatric: Denies anxiety, depression, suicidal ideation or suicidal thoughts Endocrine Endocrinology: Denies polydipsia or polyuria EXAM Physical Exam Const Vital Signs: 07/28/23 12:19 07/28/23 12:22 07/28/23 12:23 Temperature 96.8 F L Temperature Source Temporal Pulse Rate 99 Respiratory Rate 18 Respiratory Effort Normal Non-Labored Respiratory Depth Normal Respiratory Pattern Normal Blood Pressure 127/78 H Blood Pressure Mean 94 Pulse Ox 97 Oxygen Delivery Method Room Air 07/28/23 13:55 07/28/23 14:03 07/28/23 14:03 Temperature Temperature Source Pulse Rate 69 84 Respiratory Rate 14 15 Respiratory Effort Respiratory Depth Respiratory Pattern Normal Blood Pressure 112/61 Blood Pressure Mean 78 Pulse Ox 98 99 Oxygen Delivery Method Room Air Room Air 07/28/23 14:44 Temperature Temperature Source Pulse Rate 86 Respiratory Rate 18 Respiratory Effort Respiratory Depth Respiratory Pattern Blood Pressure 113/57 L Blood Pressure Mean 75 Pulse Ox 94 Oxygen Delivery Method Room Air Positive well nourished General Appearance ED: NAD HEENT Reports moist mucous membranes atraumatic Eyes PERRL and EOMs intact bilaterally Neck no lymphadenopathy Resp normal respiratory effort Auscultation: Negative for rales, rhonchi or wheezes Cardio regular rate and regular rhythm GI non-tender Extremity normal to inspection Neuro oriented x3 and CN's II-XII intact bilaterally Sensorium / Orientation: alert Psych mental status grossly normal Skin no wounds MDM MDM MDM Narrative Medical decision making narrative: Patient presenting with dyspnea and shortness of breath. Patient has history of CHF. Differential also includes ACS, pneumonia, COVID, influenza, RSV. COVID, influenza negative. RSV negative. High-sensitivity troponin 307. EKG shows A-fib at a rate of 74 bpm. Delta troponin 304. There is no significant interval change. BNP is 600 but this is much lower than previous. Hemoglobin 8.6 and her baseline. White blood cell count 7.9 and is unremarkable. Chest x-ray on my interpretation shows no acute process. The radiologist interprets this and agrees. Patient requested DuoNeb and did feel better afterwards. He was seen ambulating in the hallway with his walker and singing to the nurses and appeared to be in good spirits and did not any longer appear to be having shortness of breath. I spoke with Dr. He regarding follow-up for dialysis and she states she will get him in tomorrow the next day. She will make the arrangements. Patient states at this point that he is having trouble exhaling. He stated that his workup was otherwise normal and again he was sitting in the hallway to the nurses for several minutes and he is not having any trouble exhaling for this. He request an albuterol inhaler that he can take to dialysis as he states this makes him short of breath when he goes. At this point I feel he safe for discharge home. Impression: 1. Dyspnea 2. End-stage renal disease on dialysis. Lab Data Attestation: I reviewed the patient's lab results. Labs: Laboratory Results - last 24 hr 07/28/23 07/28/23 12:55 14:45 WBC 7.9 RBC 2.63 L Hgb 8.6 L Hct 27.9 L MCV 106.1 H MCH 32.7 H MCHC 30.8 L RDW Std Deviation 70.4 H RDW Coeff of Lencho 18.2 H Plt Count 52 L MPV 11.5 Immature Gran % (Auto) 0.400 Neut % (Auto) 88.8 H Lymph % (Auto) 2.7 L [place] % (Auto) 7.0 Eos % (Auto) 0.8 Baso % (Auto) 0.3 Absolute Neuts (auto) 7.0 Absolute Lymphs (auto) 0.21 L Nucleated RBC % 0 Differential Comment COMMENT Platelet Estimate MOD DEC Anisocytosis 1+ Sodium 135 L Potassium 3.5 Chloride 103 Carbon Dioxide 27.0 Anion Gap 5 BUN 70 H Creatinine 6.66 H Estim Creat Clear Calc 10.90 Est GFR (MDRD) Af Amer 11 L Est GFR (MDRD) Non-Af 9 L BUN/Creatinine Ratio 10.5 Glucose 124 H Calcium 8.4 L Troponin I High Sens 307 H* 304 H* B-Natriuretic Peptide 600.0 H Radiography Diagnostic Testing: Clinical Impression(s) from Imaging Studies Chest X-Ray 07/28/23 12:25 IMPRESSION: No radiographic evidence of acute cardiopulmonary disease. Electronically Signed: Pedro Luis Mancuso MD at 13:06 EST , Discharge Plan Triage Chief Complaint: Shortness of Breath ED Provider: Darin Dent Dx/Rx/DC Orders Instructions: ED Dyspnea Prescriptions: No Action Eliquis 2.5 mg tablet 2.5 mg PO DAILY Hold Instructions: Hold for 5 days. carvedilol 6.25 MG tablet 3.125 mg PO BID vitamin B complex 1 EACH tablet 1 tab PO DAILY Velphoro 500 mg tablet,chewable 500 mg PO .with meals sucralfate 1 gram Tablet 1 g PO 1HR_ACHS Qty: 120 0RF budesonide 3 mg capsule,delayed,extend.release 9 mg PO DAILY Bibiana-Leoncio 0.8 mg tablet 1 tab PO DAILY Patient Comments: TAKE 1 TABLET BY MOUTH EVERY DAY WITH FOOD ferrous sulfate 325 mg (65 mg iron) tablet,delayed release (DR/EC) 325 mg PO DAILY Qty: 30 2RF ascorbate calcium (vitamin C) 500 mg tablet 1 g PO BID Qty: 60 2RF pantoprazole 40 mg Tablet,Delayed Release (Dr/Ec) 40 mg PO BID Qty: 60 3RF Rx Instructions: Take twice daily for 8 weeks then will decrease to daily clopidogrel 75 mg Tablet 75 mg PO DAILY Qty: 0 0RF midodrine 5 mg tablet 5 mg PO TUTHSA amiodarone 200 mg tablet 200 mg PO DAILY Qty: 30 11RF Rx Instructions: Twice daily for 7 days then decrease to 1 tablet daily Primary Care Provider: Martin Nunez Referrals: Sonia He DO [Med Staff - Consulting] - As soon as possible Martin Nunez DO [Primary Care Provider] - Disposition Disposition: Home, Self Care
[2023-07-28 13:55] VITALS: BP 112/61; PULSE 69; RESP 14; O2SAT 98
[2023-07-28 14:00] LABS: Anion Gap 5 (5-15); BUN 70 mg/dL (7-18); BUN/Creat Ratio 10.5 RATIO (10-20); Calcium,Total 8.4 mg/dL (8.5-10.1); Chloride 103 mmol/L (98-107); Creatinine, Serum 6.66 mg/dL (0.70-1.30); EST Glomerular Filtration Rate 9 mL/min (>60); Est Glom Filt Rate - Afr Amer 11 mL/min (>60); Glucose 124 mg/dL (74-106); Potassium 3.5 mmol/L (3.5-5.1); Sodium Level 135 mmol/L (136-145); Troponin-I HS 307 pg/mL (3.0-78.0)
[2023-07-28] MEDS: Ipratropium/Albuterol Sulfate 3 ML AMPUL.NEB INHALATION (14:01)
[2023-07-28 14:03] VITALS: PULSE 84; RESP 15; O2SAT 99
[2023-07-28 14:44] VITALS: BP 113/57; PULSE 86; RESP 18; O2SAT 94; O2SAT 96
[2023-07-28 15:15] LABS: Troponin-I HS 304 pg/mL (3.0-78.0)
[2023-07-28] MEDS: Albuterol Sulfate 8 gm Inhaler (60 puffs) 2 PUFF INHALATION (16:22)
[2023-07-28 16:27] VITALS: BP 129/57; PULSE 79; RESP 16; O2SAT 99
== END 2023-07-28 16:38 | disposition home or self-care (01) ==
PROVIDERS: Emergency Provider Student in an Organized Health Care Education/Training Program; PCP Student in an Organized Health Care Education/Training Program; Visit Provider Student in an Organized Health Care Education/Training Program
DX: R06.00 Dyspnea, unspecified (principal); I13.2 Hypertensive heart and chronic kidney disease with heart failure and with stage 5 chronic kidney disease, or end stage renal disease; Z99.2 Dependence on renal dialysis; I50.9 Heart failure, unspecified; N18.6 End stage renal disease; I48.0 Paroxysmal atrial fibrillation; G47.30 Sleep apnea, unspecified; I25.10 Atherosclerotic heart disease of native coronary artery without angina pectoris; Z87.891 Personal history of nicotine dependence; Z79.899 Other long term (current) drug therapy; Z79.01 Long term (current) use of anticoagulants; Z86.711 Personal history of pulmonary embolism; Z86.718 Personal history of other venous thrombosis and embolism
CPT/HCPCS: 36591; 71045; 80048; 83880; 84484; 85025; 87631; 93005; 99283; A4216

== ENCOUNTER 2023-08-27 13:05 | Emergency (ER) | payer MEDICARE, BC, SELFPAY ==
[2023-08-27] VITALS (7 sets, daily range): BP systolic 88–103; BP diastolic 44–75; PULSE 74–91; RESP 16–30; TEMP 36.3–37.1; O2SAT 87–99; BMI 30.7
--- NOTE | 2023-08-27 13:13 | EKG12_ITS ---
Test Reason : Blood Pressure : / mmHG Vent. Rate : 079 BPM Atrial Rate : 079 BPM P-R Int : 128 ms QRS Dur : 124 ms QT Int : 380 ms P-R-T Axes : 000 243 175 degrees QTc Int : 435 ms Sinus rhythm with marked sinus arrhythmia Right bundle branch block Inferior infarct , age undetermined Anterolateral infarct , age undetermined Abnormal ECG Confirmed by Benjamin Kim ([id number]), purchase request editor CLIFF MARIE ([id number]) on 08/30/2023 8:19:38 AM Referred By: Confirmed By:Benjamin Kim
--- NOTE | 2023-08-27 13:16 | EX.ED.DYSGE1 ---
HPI <SONALI Benjamin - Last Filed: 08/27/23 16:15> History of Present Illness Chief Complaint: Shortness of Breath Narrative Narrative: Patient is a 78-year-old male with history of end-stage renal disease, CHF, hypertension, history of pulmonary embolism as well as stents to the left leg, patient goes to dialysis Tuesday. Patient states today, shortly after having dialysis, he began feeling short of breath and requested to go to the hospital. Patient was seen here in July for something similar. Patient states that he is generally has been feeling lousy since he had a toe removal on his left foot from the [facility] 12 days ago. Patient is currently taking his Eliquis, patient denies any fever or chills. Patient dates he does have a cough however is chronic. He denies any nausea or vomiting. PFSH <SONALI Benjamin - Last Filed: 08/27/23 16:15> [facility] Medical History Anemia Aortic root dilatation Arthritis Atrial fibrillation Bladder cancer Cancer Cardiology follow-up encounter (~04/04/23) CHF (congestive heart failure) CKD (chronic kidney disease) stage 5, GFR less than 15 ml/min Coronary artery disease Dialysis patient Duodenal ulcer ESRD (end stage renal disease) on dialysis Essential hypertension Former smoker Hepatic cyst History of atrial fibrillation History of DVT (deep vein thrombosis) History of echocardiogram (~06/30/22) History of GI bleed History of pulmonary embolism History of solitary pulmonary nodule History of stress test (~05/03/22) HIT (heparin-induced thrombocytopenia) HLD (hyperlipidemia) Hyperparathyroidism Iron deficiency anemia Kidney disease Left upper chest discomfort Loss of hearing Low iron Lower gastrointestinal bleeding Lymphoma Paroxysmal A-fib Preop cardiovascular exam Pulmonary embolism Renal calculus Sleep apnea VTE (venous thromboembolism) Wears dentures Wears glasses Wears partial dentures Wide-complex tachycardia Home Medications carvedilol 6.25 mg tablet 3.125 mg PO BID blood pressure 04/24/17 [History Last Taken 02/28/23 11:00 3.125 mg] vitamin B complex 1 tab PO DAILY SUPPLEMENT 07/02/20 [History Last Taken 02/28/23 11:00] sucroferric oxyhydroxide 500 mg chewable tablet (Velphoro) 500 mg PO .with meals anemia 03/01/23 [History Last Taken Unknown] sucralfate 1 gram tablet 1 g PO 1HR_ACHS reflux #120 tabs 03/05/23 [Rx Last Taken Unknown] amiodarone 200 mg tablet 200 mg PO DAILY heart rate #30 tabs 04/04/23 [Rx Last Taken Unknown] apixaban 2.5 mg tablet (Eliquis) 2.5 mg PO DAILY blood thinner 04/04/23 [History Last Taken 05/15/23] budesonide 3 mg capsule,delayed,extended release 9 mg PO DAILY stomach 06/16/23 [History Last Taken Unknown] vitamin B complex-vitamin C-folic acid 0.8 mg tablet (Bibiana-Leoncio) 1 tab PO DAILY supplement 06/16/23 [History Last Taken Unknown] ascorbate calcium (vitamin C) 500 mg tablet 1 g (2 x 500 mg) PO BID #60 tabs 06/18/23 [Rx Last Taken Unknown] clopidogrel 75 mg tablet 75 mg PO DAILY #0 tabs 06/18/23 [Rx Last Taken Unknown] ferrous sulfate 325 mg (65 mg iron) tablet,delayed release 325 mg PO DAILY #30 tabs 06/18/23 [Rx Last Taken Unknown] pantoprazole 40 mg tablet,delayed release 40 mg PO BID reflux #60 tabs 06/18/23 [Rx Last Taken Unknown] midodrine 5 mg tablet 5 mg PO TUTHSA 07/28/23 [History Last Taken Unknown] albuterol sulfate 0.63 mg/3 mL solution for nebulization 0.63 mg (3 mL) inhalation Q4H PRN bronchospasm #75 mL 08/27/23 [Rx Last Taken Unknown] levofloxacin 750 mg tablet 750 mg PO DAILY 4 days #4 tabs 08/27/23 [Rx Last Taken Unknown] Allergy/AdvReac Type Severity Reaction Status Date / Time Iodinated Contrast Media Allergy Intermediate KIDNEY Verified 08/27/23 13:24 FAILURE enoxaparin [From Lovenox] Allergy Other Verified 08/27/23 13:24 heparin Allergy Other Verified 08/27/23 13:24 aspirin AdvReac Other Verified 08/27/23 13:24 Family History Father Cancer lung Arrhythmia Brother Cancer Mother Dementia Surgical History AV fistula H/O total cystectomy History of bladder surgery History of cataract extraction History of corrected cleft lip and palate History of foot surgery History of tonsillectomy S/P peripheral artery angioplasty with stent placement Social History household members: none Smoking Status: Former smoker how long ago did patient quit smoking: Started age 7, stopped at 17, started again 22-2 ppd until quit 2008 alcohol intake: never substance use type: does not use caffeine: No ROS <SONALI Benjamin - Last Filed: 08/27/23 16:15> ROS ED ROS Narrative Constitutional: Negative for fever, chills, weight loss, weakness Eyes: Negative for vision loss, vision change, double vision ENT: Negative for any sore throat, ear pain, congestion Cardiovascular: Negative for any chest pain, tightness, palpitations Respiratory: Negative for any sputum production, hemoptysis, orthopnea. Positive for cough, dyspnea, dyspnea on exertion Gastrointestinal: Negative for any abdominal pain, nausea, vomiting, diarrhea, constipation, blood in stool, blood in vomit : Negative for any urinary frequency, dysuria, retention, blood in urine Muscle skeletal: Negative for any neck pain, back pain Neurological: Negative for any headache, syncope, dizziness Skin: Negative for any rashes, itching, abrasions, lacerations Psychiatric: Negative for any depression, anxiety, stress, suicidal ideation, homicidal ideation Hematologic: Negative for any excessive bruising, easy bleeding EXAM <SONALI Benjamin - Last Filed: 08/27/23 16:15> Physical Exam Narrative Exam Narrative: Vital signs reviewed. Patient was 87 to 88% on room air, patient was placed on 2 L nasal cannula. HEET: Head normocephalic atraumatic, TMs clear bilaterally. Posterior pharynx is clear, dry mucous membranes. Nares clear bilaterally. Neck: Supple with no lymphadenopathy or tenderness. No signs of meningismus. Cardiac: Regular rate and rhythm no murmurs gallops or rubs, equal peripheral pulses bilaterally. Respiratory: Lungs clear to auscultation bilaterally, patient does have diminished lung sounds at bilateral bases. No chest tenderness. Abdomen: Soft, nontender, nondistended. No abdominal bruit or pulsatile masses. No hepatosplenomegaly Extremities: No peripheral edema, no signs of gross trauma or deformity. Active full range of motion of all extremities. Left foot is wrapped with Elfego wrap and placed in a postop shoe secondary to his surgery. Patient's right upper extremity is where he has his dialysis catheter and port. No signs or symptoms of bleeding, cellulitis. Neuro: Cranial nerves II through XII intact, no focal neurological deficits. Skin: Clean dry and intact with no rash, purpura, petechiae, vesicles or pustules. Backs/flank: No CVA tenderness, no midline spinal tenderness, no deformity. Psych: Normal mood and affect. No SI, HI or acute psychosis. Const Vital Signs: 08/27/23 13:05 08/27/23 13:08/27/23 13:12 Temperature 97.3 F L Temperature Source Oral Pulse Rate 75 Respiratory Rate 30 H Respiratory Effort Normal Respiratory Depth Normal Respiratory Pattern Tachypnea Blood Pressure 103/60 Blood Pressure Mean 74 Pulse Ox 87 97 Oxygen Delivery Method Room Air Room Air Nasal Cannula Oxygen Flow Rate (L/min) 2 08/27/23 13:23 08/27/23 13:31 08/27/23 14:41 Temperature Temperature Source Pulse Rate 83 74 Respiratory Rate 16 16 Respiratory Effort Respiratory Depth Respiratory Pattern Normal Blood Pressure 88/75 L Blood Pressure Mean 79 Pulse Ox 99 96 Oxygen Delivery Method Nasal Cannula Oxygen Flow Rate (L/min) 2 <Dr. Yaya Bah MD - Last Filed: 08/27/23 15:21> Physical Exam Const Vital Signs: 08/27/23 13:05 08/27/23 13:08/27/23 13:12 Temperature 97.3 F L Temperature Source Oral Pulse Rate 75 Respiratory Rate 30 H Respiratory Effort Normal Respiratory Depth Normal Respiratory Pattern Tachypnea Blood Pressure 103/60 Blood Pressure Mean 74 Pulse Ox 87 97 Oxygen Delivery Method Room Air Room Air Nasal Cannula Oxygen Flow Rate (L/min) 2 08/27/23 13:23 08/27/23 13:31 08/27/23 14:41 Temperature Temperature Source Pulse Rate 83 74 Respiratory Rate 16 16 Respiratory Effort Respiratory Depth Respiratory Pattern Normal Blood Pressure 88/75 L Blood Pressure Mean 79 Pulse Ox 99 96 Oxygen Delivery Method Nasal Cannula Oxygen Flow Rate (L/min) 2 MDM <SONALI Benjamin - Last Filed: 08/27/23 16:15> MDM Lab Data Labs: Laboratory Results - last 24 hr 08/27/23 08/27/23 13:25 14:55 WBC 15.2 H RBC 2.66 L Hgb 7.4 L Hct 25.1 L MCV 94.4 H MCH 27.8 MCHC 29.5 L RDW Std Deviation 66.1 H RDW Coeff of Lencho 19.1 H Plt Count 159 MPV 10.3 Immature Gran % (Auto) 1.000 H Neut % (Auto) 90.1 H Lymph % (Auto) 2.8 L Marin % (Auto) 5.5 Eos % (Auto) 0.5 Baso % (Auto) 0.1 Absolute Neuts (auto) 13.7 H Absolute Lymphs (auto) 0.42 L Nucleated RBC % 0 Differential Comment SCANNED Hypochromasia 1+ Anisocytosis 2+ Microcytosis 1+ Macrocytosis 1+ Sodium 139 Potassium 3.8 Chloride 102 Carbon Dioxide 32.0 Anion Gap 5 BUN 46 H Creatinine 4.42 H Estim Creat Clear Calc 15.86 Est GFR (MDRD) Af Amer 17 L Est GFR (MDRD) Non-Af 14 L BUN/Creatinine Ratio 10.4 Glucose 134 H Calcium 7.9 L Troponin I High Sens 431 H* 396 H* Radiography Diagnostic Testing: Clinical Impression(s) from Imaging Studies Chest X-Ray 08/27/23 13:46 IMPRESSION: Suspicious prominent interstitial pneumonitis in the right lower lobe, new when compared to 07/28/2023. Electronically Signed: Stephen Gleason MD at 14:35 EST , EKG EKG shows a sinus rhythm with marked sinus arrhythmia, right bundle branch block: Attestation: I personally reviewed and interpreted this EKG as follows: Comments: Sinus rhythm with marked sinus arrhythmia, right bundle branch block, rate 79 bpm, HI interval 128 ms, QRS duration 124 ms, no acute ST elevation, no acute infarct noted. Treatment and Re-Evaluation :: Differential diagnosis includes however is not limited to: ACS, MT, CHF exacerbation, COVID, influenza, community-acquired pneumonia Patient appears to be in no obvious respiratory distress, patient was 85 to 88% on room air, patient immediately jumped up to 97% on 2 L nasal cannula. Patient received a cardiac workup, including troponin. Patient received a chest x-ray concerning for any infiltrate, pleural effusion. All radiologic examinations were read, reviewed by the emergency department attending. From these reads, a plan of care will be put in place. Patient be given breathing treatments, will be reevaluated. Patient's blood pressure on reevaluation was 109/55. Patient's laboratory values showed a slight leukocytosis with a white blood count of 15.2, patient's hemoglobin 7.4, this is chronic for the patient, he is usually around 7.4-8.6. Patient's potassium is within normal limits at 3.8, patient's creatinine was 4.42, patient's initial troponin was 431, repeat was 396, this does appear baseline for the patient, patient is usually over 300 patient has no chest pain. Patient on 2 L nasal cannula is 96 to 97%. Patient's chest x-ray showed some suspicious prominent interstitial pneumonitis in the right lower lobe. Secondary to this finding, patient be started on Levaquin, given his first dose here. At this time, patient is stable for discharge. Patient will receive his dialysis on Tuesday, patient has no abnormal laboratory values such as hyperkalemia, chest x-ray shows pneumonia, patient does have oxygen at the intermediate. Patient placed on Levaquin 750 mg. He is instructed to return for any worsening symptoms, patient is happy to go home, was given strict return precaution. When speaking with the patient, patient does have some blood pressure on the lower side. Given strict return precautions. Patient was negative for any COVID-19 influenza or RSV. <Dr. Yaya Bah MD - Last Filed: 08/27/23 15:21> [facility] History & Record Review Additional record(s) reviewed:: Prior labs Lab Data Labs: Laboratory Results - last 24 hr 08/27/23 08/27/23 13:25 14:55 WBC 15.2 H RBC 2.66 L Hgb 7.4 L Hct 25.1 L MCV 94.4 H MCH 27.8 MCHC 29.5 L RDW Std Deviation 66.1 H RDW Coeff of Lencho 19.1 H Plt Count 159 MPV 10.3 Immature Gran % (Auto) 1.000 H Neut % (Auto) 90.1 H Lymph % (Auto) 2.8 L Marin % (Auto) 5.5 Eos % (Auto) 0.5 Baso % (Auto) 0.1 Absolute Neuts (auto) 13.7 H Absolute Lymphs (auto) 0.42 L Nucleated RBC % 0 Differential Comment SCANNED Hypochromasia 1+ Anisocytosis 2+ Microcytosis 1+ Macrocytosis 1+ Sodium 139 Potassium 3.8 Chloride 102 Carbon Dioxide 32.0 Anion Gap 5 BUN 46 H Creatinine 4.42 H Estim Creat Clear Calc 15.86 Est GFR (MDRD) Af Amer 17 L Est GFR (MDRD) Non-Af 14 L BUN/Creatinine Ratio 10.4 Glucose 134 H Calcium 7.9 L Troponin I High Sens 431 H* 396 H* Radiography Diagnostic Testing: Clinical Impression(s) from Imaging Studies Chest X-Ray 08/27/23 13:46 IMPRESSION: Suspicious prominent interstitial pneumonitis in the right lower lobe, new when compared to 07/28/2023. Electronically Signed: Stephen Gleason MD at 14:35 EST , Treatment and Re-Evaluation Comments:: I have personally performed a face to face assessment of the patient and have reviewed the LILIAM Note. I performed a substantive portion of the visit including all aspects of the following. My cuellar findings include: History is patient with productive cough and shortness of breath for the last week or 2, worse when at dialysis today to the point where he was hypoxic and they stopped dialysis about an hour in. Denies any chest discomfort. Exam is well-appearing in no distress conversive in full sentences. Diminished breath sounds throughout, symmetrically, with otherwise clear lungs. No significant pedal edema no JVD. Abdomen benign. Medical Decison Making Labs noted, one-view portable chest x-ray on my interpretation shows possible early pneumonia on the right base, radiology was in agreement with this. He has a leukocytosis, and his history is consistent with possibility of pneumonia, unknown why exactly he became worse during dialysis but he is doing well on oxygen now. He was hypoxic at 87% on room air. He is in nursing facility, but his troponin is elevated at 431. In the past he has been anywhere from 235 to 535. Antibiotics ordered. Given his chronically elevated troponins, and low likelihood of acute coronary syndrome based on his history and EKG, we are repeating his troponin. If going down, can probably simply be treated for pneumonia and sent back to the intermediate on oxygen if they are comfortable taking him back. His electrolytes are noted, his potassium is within normal limits and he is not clinically grossly fluid overloaded, so he can probably wait until his next treatment to do more dialysis. Other additions or changes: [None] Discharge Plan Triage Chief Complaint: Shortness of Breath ED Midlevel Provider: Gen Ayala ED Provider: Yaya Bah Dx/Rx/DC Orders Clinical Impression: Chronic dyspnea, Community acquired pneumonia Instructions: ED Dyspnea, ED Pneumonia (Adult) Prescriptions: New levofloxacin 750 mg tablet 750 mg PO DAILY 4 Days Qty: 4 0RF albuterol sulfate 0.63 mg/3 mL solution for nebulization 0.63 mg inhalation Q4H PRN (Reason: bronchospasm) Qty: 75 0RF No Action Eliquis 2.5 mg tablet 2.5 mg PO DAILY Hold Instructions: Hold for 5 days. carvedilol 6.25 MG tablet 3.125 mg PO BID vitamin B complex 1 EACH tablet 1 tab PO DAILY Velphoro 500 mg tablet,chewable 500 mg PO .with meals sucralfate 1 gram Tablet 1 g PO 1HR_ACHS Qty: 120 0RF budesonide 3 mg capsule,delayed,extend.release 9 mg PO DAILY Bibiana-Leoncio 0.8 mg tablet 1 tab PO DAILY Patient Comments: TAKE 1 TABLET BY MOUTH EVERY DAY WITH FOOD ferrous sulfate 325 mg (65 mg iron) tablet,delayed release (DR/EC) 325 mg PO DAILY Qty: 30 2RF ascorbate calcium (vitamin C) 500 mg tablet 1 g PO BID Qty: 60 2RF pantoprazole 40 mg Tablet,Delayed Release (Dr/Ec) 40 mg PO BID Qty: 60 3RF Rx Instructions: Take twice daily for 8 weeks then will decrease to daily clopidogrel 75 mg Tablet 75 mg PO DAILY Qty: 0 0RF midodrine 5 mg tablet 5 mg PO TUTHSA amiodarone 200 mg tablet 200 mg PO DAILY Qty: 30 11RF Rx Instructions: Twice daily for 7 days then decrease to 1 tablet daily Primary Care Provider: Martin Nunez Referrals: Martin Nunez, [Primary Care Provider] - Activity Restrictions/Additional Instructions: Use your oxygen at the intermediate, take the levofloxacin tomorrow for the next 4 days, will receive your first dose here. I also provided you with albuterol nebulizers. Return for any worsening symptoms. Disposition Disposition: Home, Self Care
[2023-08-27] MEDS: Albuterol 2.5 MG/3 ML VIAL.NEB. INHALATION (13:26)
[2023-08-27] MEDS: Ipratropium/Albuterol Sulfate 3 ML AMPUL.NEB INHALATION (13:26)
[2023-08-27 13:43] LABS: Absolute Lymphocyte Count 0.42 X10^3/uL (0.83-4.51); Absolute Neutrophil Count 13.7 X10^3/uL (2.0-7.7); Basophil# 0.02 X10^3/uL; Basophil% 0.1 % (0-1); Eosinophil# 0.07 X10^3/uL; Eosinophils% 0.5 % (0-5); Hematocrit 25.1 % (40-54); Hemoglobin 7.4 g/dL (13.0-16.5); Lymphocyte # 0.42 X10^3/ul (0.83-4.51); Lymphocyte % 2.8 % (19-41); Mean Corp Hgb Conc 29.5 g/dL (32-36); Mean Corpuscular Hgb 27.8 pg (27.0-32.0); Mean Corpuscular Volume 94.4 fL (80-94); Mean Platelet Vol. 10.3 fl (6.2-12.0); Monocyte# 0.83 X10^3/uL; Monocyte% 5.5 % (0-10); NRBC Flagged by Analyzer 0 % (0-5); Neutrophil # 13.66 X10^3/uL (2.7-7.7); Neutrophil % 90.1 % (47-70); POSITIVE DIFFERENTIAL YES; POSITIVE MORPHOLOGY YES; Platelet Count 159 K/mm3 (150-450); RBC Distribution Width CV 19.1 % (11.6-14.6); RBC Distribution Width SD 66.1 fl (35.1-43.9); Red Blood Count 2.66 M/mm3 (4.6-6.2); White Blood Count 15.2 K/mm3 (4.4-11.0)
--- NOTE | 2023-08-27 13:46 | RAD_ITS ---
EXAM: XR CHEST, 1 VIEW CLINICAL INDICATION: Cough. TECHNIQUE: Frontal view of the chest. COMPARISON: 07/28/2023. FINDINGS: LUNGS AND PLEURAL SPACES: Prominent groundglass interstitial infiltrates in the right lower lobe. No pneumothorax. No effusion. HEART: Unremarkable. Normal cardiac size. MEDIASTINUM: Central airways and mediastinal contour are unremarkable. BONES/JOINTS: Unremarkable. No acute fracture. SOFT TISSUES: Unremarkable. VASCULATURE: Atherosclerotic calcifications of the left thoracic aorta. LYMPH NODES: Calcified node in the left hilum is unchanged. TUBES, LINES AND DEVICES: Right IJ approach Vaia-L-Phzkshbl tip remains in the distal SVC. RAD/Chest 1 View (Portable) IMPRESSION: Suspicious prominent interstitial pneumonitis in the right lower lobe, new when compared to 07/28/2023. Electronically Signed: Stephen Gleason MD at 14:35 EST ,
[2023-08-27 13:49] LABS: Differential Indicated SCAN CRITERIA MET
[2023-08-27 14:09] LABS: Anisocytosis 2+; Differential Comment SCANNED; Hypochromasia 1+; Macrocytosis 1+; Microcytosis 1+
[2023-08-27 14:17] LABS: Anion Gap 5 (5-15); BUN 46 mg/dL (7-18); BUN/Creat Ratio 10.4 RATIO (10-20); Calcium,Total 7.9 mg/dL (8.5-10.1); Chloride 102 mmol/L (98-107); Creatinine, Serum 4.42 mg/dL (0.70-1.30); EST Glomerular Filtration Rate 14 mL/min (>60); Est Glom Filt Rate - Afr Amer 17 mL/min (>60); Estimated Creatinine Clearance 15.86 ml/min; Glucose 134 mg/dL (74-106); Potassium 3.8 mmol/L (3.5-5.1); Sodium Level 139 mmol/L (136-145); Troponin-I HS 431 pg/mL (3.0-78.0)
[2023-08-27 16:05] LABS: Troponin-I HS 396 pg/mL (3.0-78.0)
[2023-08-27] MEDS: levoFLOXacin 750 MG Tablet PO (16:21)
== END 2023-08-27 17:39 | disposition home or self-care (01) ==
PROVIDERS: Nurse Practitioner; Emergency Provider Emergency Medicine; PCP Student in an Organized Health Care Education/Training Program; Visit Provider Emergency Medicine
DX: J18.9 Pneumonia, unspecified organism (principal); I50.9 Heart failure, unspecified; N18.6 End stage renal disease; R06.00 Dyspnea, unspecified; Z87.891 Personal history of nicotine dependence; Z86.711 Personal history of pulmonary embolism; Z79.01 Long term (current) use of anticoagulants; Z86.718 Personal history of other venous thrombosis and embolism; Z95.5 Presence of coronary angioplasty implant and graft
CPT/HCPCS: 36591; 71045; 80048; 84484; 85025; 87631; 93005; 94640; 99285; A4216

== ENCOUNTER 2023-08-31 11:37 | Inpatient (IN) | payer MEDICARE, BC, SELFPAY ==
[2023-08-31] VITALS (44 sets, daily range): BP systolic 81–156; BP diastolic 40–85; PULSE 73–100; RESP 14–32; TEMP 35.7–36.7; O2SAT 23–100; BMI 31.4
--- NOTE | 2023-08-31 11:58 | EX.ED.DYSGE1 ---
HPI History of Present Illness Chief Complaint: Abn Labs Informant: patient Onset/Context/Timing Onset: Today Current Severity: Mild Maximum Severity: Mild Narrative Narrative: 78-year-old male history of end-stage renal disease dialysis has been on dialysis for the last year. Last dialysis was yesterday had a full run. He is dialyzed typically on Tuesday and Tuesday. Is a history of anemia has previously been transfused. Currently he is on Eliquis and Plavix for peripheral arterial disease. He is also had a prior DVT. States he does not feel sick. Denies any melena. They found recently he had a low blood count of 6.8 and 1 amp transfused. States he has been transfused before. Prior similar symptoms: Yes Recent Illness/Hospitalization: Yes PFSH PFS Medical History Anemia Aortic root dilatation Arthritis Atrial fibrillation Bladder cancer Cancer Cardiology follow-up encounter (~04/04/23) CHF (congestive heart failure) CKD (chronic kidney disease) stage 5, GFR less than 15 ml/min Coronary artery disease Dialysis patient Duodenal ulcer ESRD (end stage renal disease) on dialysis Essential hypertension Former smoker Hepatic cyst History of atrial fibrillation History of DVT (deep vein thrombosis) History of echocardiogram (~06/30/22) History of GI bleed History of pulmonary embolism History of solitary pulmonary nodule History of stress test (~05/03/22) HIT (heparin-induced thrombocytopenia) HLD (hyperlipidemia) Hyperparathyroidism Iron deficiency anemia Kidney disease Left upper chest discomfort Loss of hearing Low iron Lower gastrointestinal bleeding Lymphoma Paroxysmal A-fib Preop cardiovascular exam Pulmonary embolism Renal calculus Sleep apnea VTE (venous thromboembolism) Wears dentures Wears glasses Wears partial dentures Wide-complex tachycardia Home Medications vitamin B complex 1 tab PO DAILY SUPPLEMENT 07/02/20 [History Last Taken 02/28/23 11:00] sucroferric oxyhydroxide 500 mg chewable tablet (Velphoro) 500 mg PO TIDCM anemia 03/01/23 [History Last Taken Unknown] apixaban 2.5 mg tablet (Eliquis) 2.5 mg PO BID blood thinner 04/04/23 [History Last Taken 05/15/23] budesonide 3 mg capsule,delayed,extended release 9 mg PO DAILY stomach 06/16/23 [History Last Taken Unknown] vitamin B complex-vitamin C-folic acid 0.8 mg tablet (Bibiana-Leoncio) 1 tab PO DAILY supplement 06/16/23 [History Last Taken Unknown] clopidogrel 75 mg tablet 75 mg PO DAILY #0 tabs 06/18/23 [Rx Last Taken Unknown] midodrine 5 mg tablet 5 mg PO TUTHSA 07/28/23 [History Last Taken Unknown] albuterol sulfate 0.63 mg/3 mL solution for nebulization 0.63 mg (3 mL) inhalation Q4H PRN bronchospasm #75 mL 08/27/23 [Rx Last Taken Unknown] amiodarone 200 mg tablet 200 mg PO DAILY heart rate 08/31/23 [History Last Taken Unknown] atorvastatin 20 mg tablet 20 mg PO QHS CHOLESTEROL 08/31/23 [History Last Taken Unknown] bisacodyl 10 mg rectal suppository 10 mg CA QHS PRN constipation 08/31/23 [History Last Taken Unknown] carvedilol 3.125 mg tablet 3.125 mg PO BID HIGH BLOOD PRESSURE 08/31/23 [History Last Taken Unknown] levofloxacin 750 mg tablet 750 mg PO DAILY 08/31/23 [History Last Taken Unknown] magnesium hydroxide 400 mg/5 mL oral suspension (Milk of Magnesia) 30 ml PO DAILY PRN constipation 08/31/23 [History Last Taken Unknown] mineral oil (Fleet Mineral Oil enema) 118 ml CA DAILY PRN constipation 08/31/23 [History Last Taken Unknown] pantoprazole 40 mg tablet,delayed release 40 mg PO BID reflux 08/31/23 [History Last Taken Unknown] polyethylene glycol 3350 17 gram/dose oral powder (ClearLax) 17 g PO DAILY PRN constipation 08/31/23 [History Last Taken Unknown] sucralfate 1 gram tablet 1 g PO 4X/DAY reflux 08/31/23 [History Last Taken Unknown] Allergy/AdvReac Type Severity Reaction Status Date / Time Iodinated Contrast Media Allergy Intermediate KIDNEY Verified 08/31/23 11:38 FAILURE enoxaparin [From Lovenox] Allergy Other Verified 08/31/23 11:38 heparin Allergy Other Verified 08/31/23 11:38 aspirin AdvReac Other Verified 08/31/23 11:38 Family History Father Cancer lung Arrhythmia Brother Cancer Mother Dementia Surgical History AV fistula H/O total cystectomy History of bladder surgery History of cataract extraction History of corrected cleft lip and palate History of foot surgery History of tonsillectomy S/P peripheral artery angioplasty with stent placement Social History household members: none Smoking Status: Former smoker how long ago did patient quit smoking: Started age 7, stopped at 17, started again 22-2 ppd until quit 2008 alcohol intake: never substance use type: does not use caffeine: No ROS ROS ED ROS Narrative Denies recent illness. Still on antibiotics for recent pneumonia. Review of Systems ROS Unobtainable: Denies due to encephalopathy Constitutional Constitutional ED: Denies chills or fever(s) Eyes Eyes: Denies blurry vision ENT ENT ED: Denies ear pain Cardiovascular Cardiovascular: Denies chest pain Respiratory/Chest Respiratory/Chest: Denies cough or dyspnea Gastrointestinal Gastrointestinal: Denies abdominal pain, constipation, diarrhea, melena, nausea or vomiting Genitourinary Genitourinary ED: Denies dysuria or hematuria Musculoskeletal Musculoskeletal: Denies arthralgias Integumentary Denies abscess Neurologic Neurologic: Denies headache(s) Psychiatric Psychiatric: Denies anxiety or depression Endocrine Endocrinology: Denies cold intolerance Hematologic/Lymphatic Hematologic/Lymphatic: Reports none Allergic/Immunologic Allergic/Immunologic ED: Denies mouth swelling, tongue swelling or urticaria EXAM Physical Exam Narrative Exam Narrative: Well-appearing male vital signs show blood pressure 94/40. He is afebrile. Patient states his blood pressure normally runs 120/70 or so. Pulse ox 99% room air no signs hypoxia. H EENT exam unremarkable. Moist use membranes. Neck nontender. No JVD. Lungs clear to auscultation bilaterally. Heart regular rhythm no murmur rate about 80. Chest wall and ribs nontender. Abdomen soft nontender. No peritoneal signs. Well healed prior midline incision. Moving all 4 extremities. Elfego wrap and bandage on his left foot secondary to recent toe amputations. Calves are nontender without edema. Neurologically is awake and alert. Answering questions following commands. Const Vital Signs: 08/31/23 11:39 08/31/23 11:47 08/31/23 13:53 Temperature 97.5 F L Temperature Source Temporal Pulse Rate 81 88 Respiratory Rate 20 H 23 H Respiratory Effort Normal Non-Labored Respiratory Pattern Normal Blood Pressure 94/40 L 104/60 Blood Pressure Mean 58 74 Blood Pressure Source Blood Pressure Position Blood Pressure Location Pulse Ox 99 100 Oxygen Delivery Method Room Air Room Air Oxygen Flow Rate (L/min) 08/31/23 14:20 08/31/23 14:26 08/31/23 14:40 Temperature 96.2 F L 96.2 F L 98 F Temperature Source Temporal Temporal Temporal Pulse Rate 83 83 78 Respiratory Rate 16 19 H 20 H Respiratory Effort Respiratory Pattern Blood Pressure 84/73 L 84/73 L 84/73 L Blood Pressure Mean 76 76 76 Blood Pressure Source Monitor Monitor Blood Pressure Position Semi-Fowlers Supine Blood Pressure Location Right Arm Right Arm Pulse Ox 99 23 99 Oxygen Delivery Method Room Air Nasal Cannula Nasal Cannula Oxygen Flow Rate (L/min) 2 08/31/23 14:41 08/31/23 15:41 08/31/23 13:58 Temperature 98 F 97.2 F L Temperature Source Temporal Temporal Pulse Rate 78 89 84 Respiratory Rate 20 H 24 H 23 H Respiratory Effort Respiratory Pattern Blood Pressure 125/78 H Blood Pressure Mean 93 Blood Pressure Source Blood Pressure Position Blood Pressure Location Pulse Ox 99 99 100 Oxygen Delivery Method Nasal Cannula Room Air Oxygen Flow Rate (L/min) 2 08/31/23 14:00 08/31/23 14:10 08/31/23 14:20 Temperature Temperature Source Pulse Rate 83 84 93 Respiratory Rate 21 H 15 20 H Respiratory Effort Respiratory Pattern Blood Pressure 84/73 L Blood Pressure Mean 79 Blood Pressure Source Blood Pressure Position Blood Pressure Location Pulse Ox 100 Oxygen Delivery Method Oxygen Flow Rate (L/min) 08/31/23 14:30 08/31/23 14:40 08/31/23 14:50 Temperature Temperature Source Pulse Rate 78 77 92 Respiratory Rate 16 21 H 32 H Respiratory Effort Respiratory Pattern Blood Pressure Blood Pressure Mean Blood Pressure Source Blood Pressure Position Blood Pressure Location Pulse Ox 99 Oxygen Delivery Method Oxygen Flow Rate (L/min) 08/31/23 15:00 08/31/23 15:01 08/31/23 15:10 Temperature Temperature Source Pulse Rate 82 77 77 Respiratory Rate 22 H 22 H 20 H Respiratory Effort Respiratory Pattern Blood Pressure 126/67 H Blood Pressure Mean 84 Blood Pressure Source Blood Pressure Position Blood Pressure Location Pulse Ox 100 Oxygen Delivery Method Oxygen Flow Rate (L/min) 08/31/23 15:20 08/31/23 15:30 08/31/23 15:40 Temperature Temperature Source Pulse Rate 78 75 76 Respiratory Rate 20 H 19 H 18 Respiratory Effort Respiratory Pattern Blood Pressure Blood Pressure Mean Blood Pressure Source Blood Pressure Position Blood Pressure Location Pulse Ox 85 96 Oxygen Delivery Method Oxygen Flow Rate (L/min) 08/31/23 15:50 08/31/23 16:00 Temperature Temperature Source Pulse Rate 79 84 Respiratory Rate 20 H 21 H Respiratory Effort Respiratory Pattern Blood Pressure 125/78 H Blood Pressure Mean 92 Blood Pressure Source Blood Pressure Position Blood Pressure Location Pulse Ox 98 Oxygen Delivery Method Oxygen Flow Rate (L/min) Positive well nourished and well developed; Negative for cachectic, contractures or unkempt General Appearance ED: well developed, NAD and pallor; Negative for unkempt, cachectic, contractures, cyanotic or diaphoretic Nutritional Appearance: Negative for cachectic HEENT Reports moist mucous membranes; Denies dry mucous membranes Negative for trauma or tenderness Mouth ED: No dry mucous membranes Mouth: No dry mucous membranes Eyes PERRL and EOMs intact bilaterally General Eye ED: Negative for scleral icterus Neck no lymphadenopathy, supple and no JVD General: Negative for tenderness Lymph Lymphatic: Negative for other Chest Wall inspection of chest normal and palpation of chest normal Resp normal respiratory effort and clear to auscultation bilaterally Effort and Inspection: Negative for retractions or pain with movement Auscultation: Negative for rales, rhonchi or wheezes Cardio regular rate, regular rhythm, S1 normal heart sound, S2 normal heart sound and no murmurs Palpation: Negative for palpable S3 or palpable S4 Rate: Negative for tachycardic Rhythm: Negative for abnormal rhythm GI normal to inspection, nondistended, normoactive bowel sounds, non-tender, non-distended and no masses Inspection: Negative for abdominal distention Auscultation: normoactive bowel sounds Palpation: soft; Negative for tender, guarding or rebound tenderness present Back/Spine no CVA tenderness General Back: Negative for CVA tenderness Thoracic Spine / Upper Back: Negative for thoracic spinal tenderness Extremity Negative for normal to inspection Extremity Narrative: Left foot bandage. Status post recent toe amputation x 2. General Extremety ED: Negative for edema or tenderness General Extremity: Negative for edema Neuro oriented x3 and CN's II-XII intact bilaterally Sensorium / Orientation: alert; Negative for orientation impaired, lethargic or stuporous Motor Exam: strength 5/5 throughout; Negative for general weakness or strength abnormal Psych mental status grossly normal Appearance: Negative for unkempt Attitude: No agitated Mood & Affect: Negative for depressed, anxious or tearful Skin no rashes or lesions noted and no wounds General Skin Exam: pallor; Negative for jaundice Lesions: No lesion noted Rashes: No rashes noted Trauma: Negative for abrasion Wounds: Negative for wounds noted MDM MDM MDM Narrative Medical decision making narrative: 78-year-old male recent anemia reportedly 6.8 by outpatient labs. Typically runs 7-8 or higher. Sent in for possible blood transfusion. His initial blood pressure 94/40 that will be observed. If he needs blood will give him the blood in defat improves his pressure. I am holding off on a fluid bolus at this time as he is tolerating the pressure well. Screening labs are being obtained. He is being typed and crossed. Repeat exam unchanged. The patient remains hypotensive. He has been typed and crossed for 2 units will be given. His hemoglobin today is 6 1. I did rectal exam is brown stool there is no gross blood or melena nor is there any black stool. I will speak to the hospitalist about admission since the patient was given 2 units of blood. Hospitalist thinks the patient can get the blood transfusion and be discharged home. Has been checked out to the afternoon physician. Patient is currently doing well repeat exam at 4:15 PM. History & Record Review Discussion w/independent historian: Patient Additional record(s) reviewed:: Prior inpatient record, Prior outpatient record, Prior ED visit and Prior labs Lab Data Attestation: I reviewed the patient's lab results. Lab results narrative: CBC shows white count of 10. H&H of 6.1 and 20.5. Previously she was 6.8. Patient tells me when his hemoglobin runs as low they usually give him 2 units. Electrolytes show a gap of 4. BUN of 70 creatinine 6. He has a dialysis patient. Glucose 202. Blood type O+. Patient has been typed and crossed for 2 units and be given 2 units. Labs: Laboratory Results - last 24 hr 08/31/23 08/31/23 12:15 12:15 WBC 10.4 RBC 2.16 L Hgb 6.1 L Hct 20.5 L MCV 94.9 H MCH 28.2 MCHC 29.8 L RDW Std Deviation 71.2 H RDW Coeff of Lencho 20.7 H Plt Count 142 L MPV 10.6 Immature Gran % (Auto) 0.400 Neut % (Auto) 90.6 H Lymph % (Auto) 3.6 L [place] % (Auto) 5.1 Eos % (Auto) 0.2 Baso % (Auto) 0.1 Absolute Neuts (auto) 9.4 H Absolute Lymphs (auto) 0.37 L Nucleated RBC % 0 Differential Comment COMMENT Anisocytosis 1+ Sodium 141 Potassium 4.6 Chloride 103 Carbon Dioxide 34.0 H Anion Gap 4 L BUN 70 H Creatinine 6.05 H Estim Creat Clear Calc 11.51 Est GFR (MDRD) Af Amer 12 L Est GFR (MDRD) Non-Af 10 L BUN/Creatinine Ratio 11.6 Glucose 202 H Calcium 8.2 L Blood Type O POSITIVE Antibody Screen NEGATIVE Crossmatch See Detail See Detail Discharge Plan Triage Chief Complaint: Abn Labs ED Provider: Kory Flynn Dx/Rx/DC Orders Clinical Impression: Anemia, Chronic anticoagulation, History of end stage renal disease, Anemia requiring transfusions, History of renal dialysis, History of CHF (congestive heart failure), Acute hypotension Prescriptions: No Action Eliquis 2.5 mg tablet 2.5 mg PO BID Hold Instructions: Hold for 5 days. vitamin B complex 1 EACH tablet 1 tab PO DAILY Velphoro 500 mg tablet,chewable 500 mg PO TIDCM budesonide 3 mg capsule,delayed,extend.release 9 mg PO DAILY Bibiana-Leoncio 0.8 mg tablet 1 tab PO DAILY clopidogrel 75 mg Tablet 75 mg PO DAILY Qty: 0 0RF midodrine 5 mg tablet 5 mg PO TUTHSA Rx Instructions: GIVE PRIOR TO DIALYSIS atorvastatin 20 mg tablet 20 mg PO QHS bisacodyl 10 mg suppository 10 mg CA QHS PRN (Reason: constipation) carvedilol 3.125 mg tablet 3.125 mg PO BID mineral oil [Fleet Mineral Oil] Enema 118 ml CA DAILY PRN (Reason: constipation) Rx Instructions: USE IF NO BM 8 HOURS AFTER BISACODYL SUPPOSITORY. IF NO BM WITHIN 1 HOUR OF ENEMA, NOTIFY MD. magnesium hydroxide [Milk of Magnesia] 400 mg/5 mL suspension 30 ml PO DAILY PRN (Reason: constipation) Rx Instructions: ADMINISTER ONCE DAILY IF NO BM IN 3 DAYS polyethylene glycol 3350 [ClearLax] 17 gram/dose powder 17 g PO DAILY PRN (Reason: constipation) amiodarone 200 mg tablet 200 mg PO DAILY sucralfate 1 gram Tablet 1 g PO 4X/DAY Rx Instructions: GIVE 1 TABLET BY MOUTH BEFORE MEAL AND AT BEDTIME pantoprazole 40 mg Tablet,Delayed Release (Dr/Ec) 40 mg PO BID levofloxacin 750 mg tablet 750 mg PO DAILY Rx Instructions: START- 08/28/2023, END - 09/01/2023 albuterol sulfate 0.63 mg/3 mL solution for nebulization 0.63 mg inhalation Q4H PRN (Reason: bronchospasm) Qty: 75 0RF Primary Care Provider: Martin Nunez Referrals: Martin Nunez DO [Primary Care Provider] - Activity Restrictions/Additional Instructions: Follow-up with your primary care physician. Have them or dialysis repeat your blood counts next week. Return to the emergency department feeling worse. Disposition Disposition: Home, Self Care
[2023-08-31 12:25] LABS: Absolute Lymphocyte Count 0.37 X10^3/uL (0.83-4.51); Absolute Neutrophil Count 9.4 X10^3/uL (2.0-7.7); Basophil# 0.01 X10^3/uL; Basophil% 0.1 % (0-1); Eosinophil# 0.02 X10^3/uL; Eosinophils% 0.2 % (0-5); Hematocrit 20.5 % (40-54); Hemoglobin 6.1 g/dL (13.0-16.5); Lymphocyte # 0.37 X10^3/ul (0.83-4.51); Lymphocyte % 3.6 % (19-41); Mean Corp Hgb Conc 29.8 g/dL (32-36); Mean Corpuscular Hgb 28.2 pg (27.0-32.0); Mean Corpuscular Volume 94.9 fL (80-94); Mean Platelet Vol. 10.6 fl (6.2-12.0); Monocyte# 0.53 X10^3/uL; Monocyte% 5.1 % (0-10); NRBC Flagged by Analyzer 0 % (0-5); Neutrophil % 90.6 % (47-70); POSITIVE DIFFERENTIAL YES; POSITIVE MORPHOLOGY YES; Platelet Count 142 K/mm3 (150-450); RBC Distribution Width CV 20.7 % (11.6-14.6); RBC Distribution Width SD 71.2 fl (35.1-43.9); Red Blood Count 2.16 M/mm3 (4.6-6.2); White Blood Count 10.4 K/mm3 (4.4-11.0)
[2023-08-31 12:30] LABS: Differential Indicated SCAN CRITERIA MET
[2023-08-31 12:40] LABS: Anion Gap 4 (5-15); BUN 70 mg/dL (7-18); BUN/Creat Ratio 11.6 RATIO (10-20); Calcium,Total 8.2 mg/dL (8.5-10.1); Chloride 103 mmol/L (98-107); Creatinine, Serum 6.05 mg/dL (0.70-1.30); EST Glomerular Filtration Rate 10 mL/min (>60); Est Glom Filt Rate - Afr Amer 12 mL/min (>60); Estimated Creatinine Clearance 11.51 ml/min; Glucose 202 mg/dL (74-106); Potassium 4.6 mmol/L (3.5-5.1); Sodium Level 141 mmol/L (136-145)
[2023-08-31 12:54] LABS: Anisocytosis 1+
--- NOTE | 2023-08-31 14:41 | NURSING ---
MED SURG OBS KOTSONIS ANEMIA, TRANSFUSION, ESRD DIALYSIS, HX OF CHF
--- NOTE | 2023-08-31 19:52 | CT_ITS ---
EXAM: CT ANGIOGRAPHY ABDOMEN AND PELVIS WITHOUT AND WITH INTRAVENOUS CONTRAST CLINICAL INDICATION: GI BLEED TECHNIQUE: Helically acquired angiography images were obtained of the abdomen and pelvis without and with intravenous contrast. This CT exam was performed using one or more of the following dose reduction techniques: automated exposure control, adjustment of the mA and/or kV according to patient size, and/or use of iterative reconstruction technique. MIP reconstructed images were created and reviewed. CONTRAST: IV 75mL [id number] COMPARISON: CTA abdomen, 05/03/[address] abdomen and pelvis, 04/27/2023. FINDINGS: VASCULATURE: AORTA: Atherosclerosis of the aorta with similar appearance of chronic distal aortic dissection and overall mild ectasia measuring up to approximately 3 cm in diameter. The false lumen is mostly thrombosed. CELIAC TRUNK AND MESENTERIC ARTERIES: No significant findings. No occlusion or significant stenosis. No dissection. RENAL ARTERIES: Moderate bilateral renal artery stenosis proximally. ILIAC ARTERIES: Mild to moderate stenosis of the proximal bilateral internal iliac artery secondary to atherosclerosis. Atherosclerosis of the bilateral common iliac arteries without significant stenosis. INFERIOR VENA CAVA: An IVC filter is present. LOWER THORAX: Paraseptal and centrilobular emphysematous changes. Coronary artery calcifications and/or stents. Mild cardiomegaly without pericardial effusion. Trace right pleural effusion and right posterior lower lobe airspace disease which may be atelectasis or pneumonia. Minimal left basilar airspace disease which also may be atelectasis or pneumonia. ABDOMEN: LIVER: No significant abnormality. Homogeneous. No focal mass. GALLBLADDER AND BILE DUCTS: Sludge and/or stones within the gallbladder lumen. No secondary signs of cholecystitis. No intra- or extrahepatic biliary ductal dilation. PANCREAS: No significant abnormality. No focal cystic or solid mass. SPLEEN: No significant abnormality. Normal size without focal cystic or solid mass. ADRENALS: 1.9 cm right adrenal nodule with low attenuation and 1.7 cm left adrenal nodule with low attenuation. These are most likely adenomas. KIDNEYS AND URETERS: Severe right-sided hydroureteronephrosis associated with multifocal intracerebral linear filling defects and apparent mid to distal ureteral stricture. This is similar to the prior examination. Bilateral renal cysts for which no follow-up is indicated and bilateral, right greater than left renal cortical atrophy. STOMACH AND BOWEL: Colonic diverticulosis without discrete evidence of acute diverticulitis. No stomach or bowel distention. PELVIS: APPENDIX: No evidence of acute appendicitis. BLADDER: No significant abnormality. REPRODUCTIVE: Normal as visualized. No mass. ABDOMEN and PELVIS: INTRAPERITONEAL SPACE: No significant abnormality. No ascites or other fluid collection. No free air. BONES/JOINTS: Healing single fractures of the right anterior fifth and left anterior sixth ribs. Degenerative changes of the visualized axial and appendicular skeleton. No suspicious lytic or blastic abnormality. SOFT TISSUES: No significant abnormality. No discrete abdominal or pelvic wall hernia. LYMPH NODES: No significant abnormality. No enlarged lymph nodes. CT/CTA Abd/Pelvis W/WO Contrast IMPRESSION: 1. Atherosclerosis of the aorta with similar appearance of chronic distal aortic dissection and overall mild ectasia measuring up to approximately 3 cm in diameter. The false lumen is mostly thrombosed. 2. Paraseptal and centrilobular emphysematous changes. NOTE: Emphysema on CT is an independent risk factor for lung cancer. Consider low dose CT for lung cancer screening between the ages of 50 and 77. 3. 1.9 cm right adrenal nodule with low attenuation and 1.7 cm left adrenal nodule with low attenuation. These are most likely adenomas. ACR White Paper guidelines (Farmer-Bueno, et al. JACR 2017; 14(8):0461-4969) suggest no imaging follow-up is necessary. ACR White Paper guidelines (Farmer-Bueno, et al. JACR 2017; 14(8):0726-2997) suggest no imaging follow-up is necessary. Consider biochemical assays to determine functional status and exclude pheochromocytoma if biopsy/resection is planned. 4. Severe right-sided hydroureteronephrosis associated with multifocal intracerebral linear filling defects and apparent mid to distal ureteral stricture. This is similar to the prior examination. Ureteral filling defect may be secondary to prior intervention/stenting. 5. 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 6. Moderate bilateral renal artery stenosis proximally. 7. Mild cardiomegaly without pericardial effusion. 8. Trace right pleural effusion and right posterior lower lobe airspace disease which may be atelectasis or pneumonia. Minimal left basilar airspace disease which also may be atelectasis or pneumonia. 9. No definite intraluminal extravasation of contrast to indicate location of presumptive gastrointestinal bleed. 10. Sludge and/or stones within the gallbladder lumen. No secondary signs of cholecystitis. 11. IVC filter is present. Recommend determining if there is a management place in place for this IVC filter. If not, then recommend referral to an interventional radiologist on a nonemergent basis for evaluation. 12. Colonic diverticulosis without discrete evidence of acute diverticulitis. Electronically Signed: Goran Langford DO at 20:23 EDT ,
--- NOTE | 2023-08-31 22:46 | EX.ED.DYSGE1 ---
HPI <Stephen Meneses MD - Last Filed: 08/31/23 22:51> History of Present Illness Chief Complaint: Abn Labs [facility] <Stephen Meneses MD - Last Filed: 08/31/23 22:51> [facility] Medical History Anemia Aortic root dilatation Arthritis Atrial fibrillation Bladder cancer Cancer Cardiology follow-up encounter (~04/04/23) CHF (congestive heart failure) CKD (chronic kidney disease) stage 5, GFR less than 15 ml/min Coronary artery disease Dialysis patient Duodenal ulcer ESRD (end stage renal disease) on dialysis Essential hypertension Former smoker Hepatic cyst History of atrial fibrillation History of DVT (deep vein thrombosis) History of echocardiogram (~06/30/22) History of GI bleed History of pulmonary embolism History of solitary pulmonary nodule History of stress test (~05/03/22) HIT (heparin-induced thrombocytopenia) HLD (hyperlipidemia) Hyperparathyroidism Iron deficiency anemia Kidney disease Left upper chest discomfort Loss of hearing Low iron Lower gastrointestinal bleeding Lymphoma Paroxysmal A-fib Preop cardiovascular exam Pulmonary embolism Renal calculus Sleep apnea VTE (venous thromboembolism) Wears dentures Wears glasses Wears partial dentures Wide-complex tachycardia Home Medications vitamin B complex 1 tab PO DAILY SUPPLEMENT 07/02/20 [History Last Taken 02/28/23 11:00] sucroferric oxyhydroxide 500 mg chewable tablet (Velphoro) 500 mg PO TIDCM anemia 03/01/23 [History Last Taken Unknown] apixaban 2.5 mg tablet (Eliquis) 2.5 mg PO BID blood thinner 04/04/23 [History Last Taken 05/15/23] budesonide 3 mg capsule,delayed,extended release 9 mg PO DAILY stomach 06/16/23 [History Last Taken Unknown] vitamin B complex-vitamin C-folic acid 0.8 mg tablet (Bibiana-Leoncio) 1 tab PO DAILY supplement 06/16/23 [History Last Taken Unknown] clopidogrel 75 mg tablet 75 mg PO DAILY #0 tabs 06/18/23 [Rx Last Taken Unknown] midodrine 5 mg tablet 5 mg PO TUTHSA 07/28/23 [History Last Taken Unknown] albuterol sulfate 0.63 mg/3 mL solution for nebulization 0.63 mg (3 mL) inhalation Q4H PRN bronchospasm #75 mL 08/27/23 [Rx Last Taken Unknown] amiodarone 200 mg tablet 200 mg PO DAILY heart rate 08/31/23 [History Last Taken Unknown] atorvastatin 20 mg tablet 20 mg PO QHS CHOLESTEROL 08/31/23 [History Last Taken Unknown] bisacodyl 10 mg rectal suppository 10 mg SC QHS PRN constipation 08/31/23 [History Last Taken Unknown] carvedilol 3.125 mg tablet 3.125 mg PO BID HIGH BLOOD PRESSURE 08/31/23 [History Last Taken Unknown] levofloxacin 750 mg tablet 750 mg PO DAILY 08/31/23 [History Last Taken Unknown] magnesium hydroxide 400 mg/5 mL oral suspension (Milk of Magnesia) 30 ml PO DAILY PRN constipation 08/31/23 [History Last Taken Unknown] mineral oil (Fleet Mineral Oil enema) 118 ml SC DAILY PRN constipation 08/31/23 [History Last Taken Unknown] pantoprazole 40 mg tablet,delayed release 40 mg PO BID reflux 08/31/23 [History Last Taken Unknown] polyethylene glycol 3350 17 gram/dose oral powder (ClearLax) 17 g PO DAILY PRN constipation 08/31/23 [History Last Taken Unknown] sucralfate 1 gram tablet 1 g PO 4X/DAY reflux 08/31/23 [History Last Taken Unknown] Allergy/AdvReac Type Severity Reaction Status Date / Time Iodinated Contrast Media Allergy Intermediate KIDNEY Verified 08/31/23 11:38 FAILURE enoxaparin [From Lovenox] Allergy Other Verified 08/31/23 11:38 heparin Allergy Other Verified 08/31/23 11:38 aspirin AdvReac Other Verified 08/31/23 11:38 Family History Father Cancer lung Arrhythmia Brother Cancer Mother Dementia Surgical History AV fistula H/O total cystectomy History of bladder surgery History of cataract extraction History of corrected cleft lip and palate History of foot surgery History of tonsillectomy S/P peripheral artery angioplasty with stent placement Social History household members: none Smoking Status: Former smoker how long ago did patient quit smoking: Started age 7, stopped at 17, started again 22-2 ppd until quit 2008 alcohol intake: never substance use type: does not use caffeine: No EXAM <Stephen Meneses MD - Last Filed: 08/31/23 22:51> Physical Exam Const Vital Signs: 08/31/23 11:39 08/31/23 11:47 08/31/23 13:53 Temperature 97.5 F L Temperature Source Temporal Pulse Rate 81 88 Respiratory Rate 20 H 23 H Respiratory Effort Normal Non-Labored Respiratory Pattern Normal Blood Pressure 94/40 L 104/60 Blood Pressure Mean 58 74 Blood Pressure Source Blood Pressure Position Blood Pressure Location Pulse Ox 99 100 Oxygen Delivery Method Room Air Room Air Oxygen Flow Rate (L/min) 08/31/23 14:20 08/31/23 14:26 08/31/23 14:40 Temperature 96.2 F L 96.2 F L 98 F Temperature Source Temporal Temporal Temporal Pulse Rate 83 83 78 Respiratory Rate 16 19 H 20 H Respiratory Effort Respiratory Pattern Blood Pressure 84/73 L 84/73 L 84/73 L Blood Pressure Mean 76 76 76 Blood Pressure Source Monitor Monitor Blood Pressure Position Semi-Fowlers Supine Blood Pressure Location Right Arm Right Arm Pulse Ox 99 23 99 Oxygen Delivery Method Room Air Nasal Cannula Nasal Cannula Oxygen Flow Rate (L/min) 2 08/31/23 14:41 08/31/23 15:41 08/31/23 13:58 Temperature 98 F 97.2 F L Temperature Source Temporal Temporal Pulse Rate 78 89 84 Respiratory Rate 20 H 24 H 23 H Respiratory Effort Respiratory Pattern Blood Pressure 125/78 H Blood Pressure Mean 93 Blood Pressure Source Blood Pressure Position Blood Pressure Location Pulse Ox 99 99 100 Oxygen Delivery Method Nasal Cannula Room Air Oxygen Flow Rate (L/min) 2 08/31/23 14:00 08/31/23 14:10 08/31/23 14:20 Temperature Temperature Source Pulse Rate 83 84 93 Respiratory Rate 21 H 15 20 H Respiratory Effort Respiratory Pattern Blood Pressure 84/73 L Blood Pressure Mean 79 Blood Pressure Source Blood Pressure Position Blood Pressure Location Pulse Ox 100 Oxygen Delivery Method Oxygen Flow Rate (L/min) 08/31/23 14:30 08/31/23 14:40 08/31/23 14:50 Temperature Temperature Source Pulse Rate 78 77 92 Respiratory Rate 16 21 H 32 H Respiratory Effort Respiratory Pattern Blood Pressure Blood Pressure Mean Blood Pressure Source Blood Pressure Position Blood Pressure Location Pulse Ox 99 Oxygen Delivery Method Oxygen Flow Rate (L/min) 08/31/23 15:00 08/31/23 15:01 08/31/23 15:10 Temperature Temperature Source Pulse Rate 82 77 77 Respiratory Rate 22 H 22 H 20 H Respiratory Effort Respiratory Pattern Blood Pressure 126/67 H Blood Pressure Mean 84 Blood Pressure Source Blood Pressure Position Blood Pressure Location Pulse Ox 100 Oxygen Delivery Method Oxygen Flow Rate (L/min) 08/31/23 15:20 08/31/23 15:30 08/31/23 15:40 Temperature Temperature Source Pulse Rate 78 75 76 Respiratory Rate 20 H 19 H 18 Respiratory Effort Respiratory Pattern Blood Pressure Blood Pressure Mean Blood Pressure Source Blood Pressure Position Blood Pressure Location Pulse Ox 85 96 Oxygen Delivery Method Oxygen Flow Rate (L/min) 08/31/23 15:50 08/31/23 16:00 08/31/23 16:23 Temperature 97.3 F L Temperature Source Temporal Pulse Rate 79 84 77 Respiratory Rate 20 H 21 H 22 H Respiratory Effort Respiratory Pattern Blood Pressure 125/78 H 125/78 H Blood Pressure Mean 92 93 Blood Pressure Source Monitor Blood Pressure Position Semi-Fowlers Blood Pressure Location Right Arm Pulse Ox 98 98 Oxygen Delivery Method Nasal Cannula Oxygen Flow Rate (L/min) 08/31/23 16:30 08/31/23 16:45 08/31/23 16:10 Temperature 96.9 F L 97.1 F L Temperature Source Temporal Temporal Pulse Rate 86 88 84 Respiratory Rate 18 22 H 18 Respiratory Effort Respiratory Pattern Blood Pressure 120/65 126/65 H Blood Pressure Mean 83 85 Blood Pressure Source Monitor Monitor Blood Pressure Position Semi-Fowlers Semi-Fowlers Blood Pressure Location Left Arm Left Arm Pulse Ox 96 99 99 Oxygen Delivery Method Nasal Cannula Nasal Cannula Oxygen Flow Rate (L/min) 08/31/23 16:20 08/31/23 16:30 08/31/23 16:31 Temperature Temperature Source Pulse Rate 85 81 86 Respiratory Rate 14 22 H 21 H Respiratory Effort Respiratory Pattern Blood Pressure 120/65 Blood Pressure Mean 81 Blood Pressure Source Blood Pressure Position Blood Pressure Location Pulse Ox 97 97 97 Oxygen Delivery Method Oxygen Flow Rate (L/min) 08/31/23 16:40 08/31/23 16:50 08/31/23 17:00 Temperature Temperature Source Pulse Rate 81 73 85 Respiratory Rate 22 H 21 H 22 H Respiratory Effort Respiratory Pattern Blood Pressure 126/65 H Blood Pressure Mean 83 Blood Pressure Source Blood Pressure Position Blood Pressure Location Pulse Ox 100 99 Oxygen Delivery Method Oxygen Flow Rate (L/min) 08/31/23 17:10 08/31/23 17:20 08/31/23 17:30 Temperature Temperature Source Pulse Rate 87 85 77 Respiratory Rate 21 H 24 H 22 H Respiratory Effort Respiratory Pattern Blood Pressure Blood Pressure Mean Blood Pressure Source Blood Pressure Position Blood Pressure Location Pulse Ox 97 99 98 Oxygen Delivery Method Oxygen Flow Rate (L/min) 08/31/23 17:40 08/31/23 17:50 08/31/23 18:00 Temperature Temperature Source Pulse Rate 77 96 92 Respiratory Rate 26 H 17 20 H Respiratory Effort Respiratory Pattern Blood Pressure 81/58 L Blood Pressure Mean 65 Blood Pressure Source Blood Pressure Position Blood Pressure Location Pulse Ox 97 97 Oxygen Delivery Method Oxygen Flow Rate (L/min) 08/31/23 18:18 08/31/23 18:20 08/31/23 18:30 Temperature Temperature Source Pulse Rate 100 81 81 Respiratory Rate 27 H 25 H 23 H Respiratory Effort Respiratory Pattern Blood Pressure 120/43 L Blood Pressure Mean 67 Blood Pressure Source Blood Pressure Position Blood Pressure Location Pulse Ox 93 99 Oxygen Delivery Method Oxygen Flow Rate (L/min) 08/31/23 18:40 08/31/23 18:50 08/31/23 17:45 Temperature 97.5 F L Temperature Source Temporal Pulse Rate 78 75 79 Respiratory Rate 18 24 H 22 H Respiratory Effort Respiratory Pattern Blood Pressure 126/65 H Blood Pressure Mean 85 Blood Pressure Source Monitor Blood Pressure Position Semi-Fowlers Blood Pressure Location Left Arm Pulse Ox 95 Oxygen Delivery Method Nasal Cannula Oxygen Flow Rate (L/min) 08/31/23 18:45 08/31/23 21:10 08/31/23 23:00 Temperature 98.1 F Temperature Source Temporal Pulse Rate 77 77 83 Respiratory Rate 20 H 19 H 20 H Respiratory Effort Respiratory Pattern Blood Pressure 115/56 L 156/85 H 153/82 H Blood Pressure Mean 75 108 105 Blood Pressure Source Monitor Blood Pressure Position Semi-Fowlers Blood Pressure Location Left Arm Pulse Ox 95 99 98 Oxygen Delivery Method Room Air Room Air Oxygen Flow Rate (L/min) 09/01/23 02:29 09/01/23 04:00 09/01/23 06:00 Temperature Temperature Source Pulse Rate 79 77 99 Respiratory Rate 18 16 16 Respiratory Effort Respiratory Pattern Blood Pressure 134/67 H 144/67 H 142/92 H Blood Pressure Mean 89 92 108 Blood Pressure Source Blood Pressure Position Blood Pressure Location Pulse Ox 99 97 99 Oxygen Delivery Method Room Air Oxygen Flow Rate (L/min) 09/01/23 06:00 Temperature Temperature Source Pulse Rate 77 Respiratory Rate 19 H Respiratory Effort Respiratory Pattern Blood Pressure 142/92 H Blood Pressure Mean 108 Blood Pressure Source Blood Pressure Position Blood Pressure Location Pulse Ox 99 Oxygen Delivery Method Oxygen Flow Rate (L/min) <Dr. Igor Shepherd, DO - Last Filed: 09/01/23 08:02> Physical Exam Const Vital Signs: 08/31/23 11:39 08/31/23 11:47 08/31/23 13:53 Temperature 97.5 F L Temperature Source Temporal Pulse Rate 81 88 Respiratory Rate 20 H 23 H Respiratory Effort Normal Non-Labored Respiratory Pattern Normal Blood Pressure 94/40 L 104/60 Blood Pressure Mean 58 74 Blood Pressure Source Blood Pressure Position Blood Pressure Location Pulse Ox 99 100 Oxygen Delivery Method Room Air Room Air Oxygen Flow Rate (L/min) 08/31/23 14:20 08/31/23 14:26 08/31/23 14:40 Temperature 96.2 F L 96.2 F L 98 F Temperature Source Temporal Temporal Temporal Pulse Rate 83 83 78 Respiratory Rate 16 19 H 20 H Respiratory Effort Respiratory Pattern Blood Pressure 84/73 L 84/73 L 84/73 L Blood Pressure Mean 76 76 76 Blood Pressure Source Monitor Monitor Blood Pressure Position Semi-Fowlers Supine Blood Pressure Location Right Arm Right Arm Pulse Ox 99 23 99 Oxygen Delivery Method Room Air Nasal Cannula Nasal Cannula Oxygen Flow Rate (L/min) 2 08/31/23 14:41 08/31/23 15:41 08/31/23 13:58 Temperature 98 F 97.2 F L Temperature Source Temporal Temporal Pulse Rate 78 89 84 Respiratory Rate 20 H 24 H 23 H Respiratory Effort Respiratory Pattern Blood Pressure 125/78 H Blood Pressure Mean 93 Blood Pressure Source Blood Pressure Position Blood Pressure Location Pulse Ox 99 99 100 Oxygen Delivery Method Nasal Cannula Room Air Oxygen Flow Rate (L/min) 2 08/31/23 14:00 08/31/23 14:10 08/31/23 14:20 Temperature Temperature Source Pulse Rate 83 84 93 Respiratory Rate 21 H 15 20 H Respiratory Effort Respiratory Pattern Blood Pressure 84/73 L Blood Pressure Mean 79 Blood Pressure Source Blood Pressure Position Blood Pressure Location Pulse Ox 100 Oxygen Delivery Method Oxygen Flow Rate (L/min) 08/31/23 14:30 08/31/23 14:40 08/31/23 14:50 Temperature Temperature Source Pulse Rate 78 77 92 Respiratory Rate 16 21 H 32 H Respiratory Effort Respiratory Pattern Blood Pressure Blood Pressure Mean Blood Pressure Source Blood Pressure Position Blood Pressure Location Pulse Ox 99 Oxygen Delivery Method Oxygen Flow Rate (L/min) 08/31/23 15:00 08/31/23 15:01 08/31/23 15:10 Temperature Temperature Source Pulse Rate 82 77 77 Respiratory Rate 22 H 22 H 20 H Respiratory Effort Respiratory Pattern Blood Pressure 126/67 H Blood Pressure Mean 84 Blood Pressure Source Blood Pressure Position Blood Pressure Location Pulse Ox 100 Oxygen Delivery Method Oxygen Flow Rate (L/min) 08/31/23 15:20 08/31/23 15:30 08/31/23 15:40 Temperature Temperature Source Pulse Rate 78 75 76 Respiratory Rate 20 H 19 H 18 Respiratory Effort Respiratory Pattern Blood Pressure Blood Pressure Mean Blood Pressure Source Blood Pressure Position Blood Pressure Location Pulse Ox 85 96 Oxygen Delivery Method Oxygen Flow Rate (L/min) 08/31/23 15:50 08/31/23 16:00 08/31/23 16:23 Temperature 97.3 F L Temperature Source Temporal Pulse Rate 79 84 77 Respiratory Rate 20 H 21 H 22 H Respiratory Effort Respiratory Pattern Blood Pressure 125/78 H 125/78 H Blood Pressure Mean 92 93 Blood Pressure Source Monitor Blood Pressure Position Semi-Fowlers Blood Pressure Location Right Arm Pulse Ox 98 98 Oxygen Delivery Method Nasal Cannula Oxygen Flow Rate (L/min) 08/31/23 16:30 08/31/23 16:45 08/31/23 16:10 Temperature 96.9 F L 97.1 F L Temperature Source Temporal Temporal Pulse Rate 86 88 84 Respiratory Rate 18 22 H 18 Respiratory Effort Respiratory Pattern Blood Pressure 120/65 126/65 H Blood Pressure Mean 83 85 Blood Pressure Source Monitor Monitor Blood Pressure Position Semi-Fowlers Semi-Fowlers Blood Pressure Location Left Arm Left Arm Pulse Ox 96 99 99 Oxygen Delivery Method Nasal Cannula Nasal Cannula Oxygen Flow Rate (L/min) 08/31/23 16:20 08/31/23 16:30 08/31/23 16:31 Temperature Temperature Source Pulse Rate 85 81 86 Respiratory Rate 14 22 H 21 H Respiratory Effort Respiratory Pattern Blood Pressure 120/65 Blood Pressure Mean 81 Blood Pressure Source Blood Pressure Position Blood Pressure Location Pulse Ox 97 97 97 Oxygen Delivery Method Oxygen Flow Rate (L/min) 08/31/23 16:40 08/31/23 16:50 08/31/23 17:00 Temperature Temperature Source Pulse Rate 81 73 85 Respiratory Rate 22 H 21 H 22 H Respiratory Effort Respiratory Pattern Blood Pressure 126/65 H Blood Pressure Mean 83 Blood Pressure Source Blood Pressure Position Blood Pressure Location Pulse Ox 100 99 Oxygen Delivery Method Oxygen Flow Rate (L/min) 08/31/23 17:10 08/31/23 17:20 08/31/23 17:30 Temperature Temperature Source Pulse Rate 87 85 77 Respiratory Rate 21 H 24 H 22 H Respiratory Effort Respiratory Pattern Blood Pressure Blood Pressure Mean Blood Pressure Source Blood Pressure Position Blood Pressure Location Pulse Ox 97 99 98 Oxygen Delivery Method Oxygen Flow Rate (L/min) 08/31/23 17:40 08/31/23 17:50 08/31/23 18:00 Temperature Temperature Source Pulse Rate 77 96 92 Respiratory Rate 26 H 17 20 H Respiratory Effort Respiratory Pattern Blood Pressure 81/58 L Blood Pressure Mean 65 Blood Pressure Source Blood Pressure Position Blood Pressure Location Pulse Ox 97 97 Oxygen Delivery Method Oxygen Flow Rate (L/min) 08/31/23 18:18 08/31/23 18:20 08/31/23 18:30 Temperature Temperature Source Pulse Rate 100 81 81 Respiratory Rate 27 H 25 H 23 H Respiratory Effort Respiratory Pattern Blood Pressure 120/43 L Blood Pressure Mean 67 Blood Pressure Source Blood Pressure Position Blood Pressure Location Pulse Ox 93 99 Oxygen Delivery Method Oxygen Flow Rate (L/min) 08/31/23 18:40 08/31/23 18:50 08/31/23 17:45 Temperature 97.5 F L Temperature Source Temporal Pulse Rate 78 75 79 Respiratory Rate 18 24 H 22 H Respiratory Effort Respiratory Pattern Blood Pressure 126/65 H Blood Pressure Mean 85 Blood Pressure Source Monitor Blood Pressure Position Semi-Fowlers Blood Pressure Location Left Arm Pulse Ox 95 Oxygen Delivery Method Nasal Cannula Oxygen Flow Rate (L/min) 08/31/23 18:45 08/31/23 21:10 08/31/23 23:00 Temperature 98.1 F Temperature Source Temporal Pulse Rate 77 77 83 Respiratory Rate 20 H 19 H 20 H Respiratory Effort Respiratory Pattern Blood Pressure 115/56 L 156/85 H 153/82 H Blood Pressure Mean 75 108 105 Blood Pressure Source Monitor Blood Pressure Position Semi-Fowlers Blood Pressure Location Left Arm Pulse Ox 95 99 98 Oxygen Delivery Method Room Air Room Air Oxygen Flow Rate (L/min) 09/01/23 02:29 09/01/23 04:00 09/01/23 06:00 Temperature Temperature Source Pulse Rate 79 77 99 Respiratory Rate 18 16 16 Respiratory Effort Respiratory Pattern Blood Pressure 134/67 H 144/67 H 142/92 H Blood Pressure Mean 89 92 108 Blood Pressure Source Blood Pressure Position Blood Pressure Location Pulse Ox 99 97 99 Oxygen Delivery Method Room Air Oxygen Flow Rate (L/min) 09/01/23 06:00 Temperature Temperature Source Pulse Rate 77 Respiratory Rate 19 H Respiratory Effort Respiratory Pattern Blood Pressure 142/92 H Blood Pressure Mean 108 Blood Pressure Source Blood Pressure Position Blood Pressure Location Pulse Ox 99 Oxygen Delivery Method Oxygen Flow Rate (L/min) LAKEISHA <Stephen Meneses MD - Last Filed: 08/31/23 22:51> LAKEISHA SUAZO Narrative Medical decision making narrative: This is an addendum to the note of Dr. Felipe Flynn who had initially seen this patient. Patient was endorsed to me to discharge him back to the half-way facility after his transfusion of packed red blood cells, 2 units. However, patient had a black bowel movement here in the emergency department which was sent for occult blood. In review of his Hemoccult test, it is positive. I reviewed his previous gastroenterology notes, and I contacted Dr. Matt with hospital medicine. The concern is that patient had multiple areas of bleeding in the past, and it was thought that he may have a small bowel bleed as well after capsule ingestion, so that he may need to be transferred to a place that has interventional radiology or retail team leader who can perform deep enteroscopy. The hospitalist wanted me to contact Dr. Garay with gastroenterology who requested that his CTA of the abdomen and pelvis be obtained to see if bleeding could be found in the stomach or colon. Although the patient has end-stage renal disease and requires dialysis tomorrow, I do feel that CT contrast is indicated given his need for ruling out acute GI bleeding. I reviewed the CTA results which shows no definitive area of bleeding. I read discussed patient with Dr. Garay with gastroenterology who states that if it is not visible in the colon or stomach, that he will need to be transferred for interventional radiology for deep enteroscopy as stated previously. I discussed this with the patient, and with his son over the telephone at his request, and they are agreeable to be transferred to [facility]. In discussion with the [facility] transfer line, there is a wait list of at least 24 to 48 hours. I am waiting to hear back from their hospitalist for acceptance. Then, the patient will be discussed with the hospitalist here as no beds are available. Currently, patient is in stable condition. History & Record Review Discussion w/independent historian: Patient Lab Data Attestation: I reviewed the patient's lab results. Labs: Laboratory Results - last 24 hr 08/31/23 08/31/23 08/31/23 12:15 12:15 23:05 WBC 10.4 RBC 2.16 L Hgb 6.1 L 7.9 L Hct 20.5 L 25.5 L MCV 94.9 H MCH 28.2 MCHC 29.8 L RDW Std Deviation 71.2 H RDW Coeff of Lencho 20.7 H Plt Count 142 L MPV 10.6 Immature Gran % (Auto) 0.400 Neut % (Auto) 90.6 H Lymph % (Auto) 3.6 L Owen % (Auto) 5.1 Eos % (Auto) 0.2 Baso % (Auto) 0.1 Absolute Neuts (auto) 9.4 H Absolute Lymphs (auto) 0.37 L Nucleated RBC % 0 Differential Comment COMMENT Anisocytosis 1+ Sodium 141 Potassium 4.6 Chloride 103 Carbon Dioxide 34.0 H Anion Gap 4 L BUN 70 H Creatinine 6.05 H Estim Creat Clear Calc 11.51 Est GFR (MDRD) Af Amer 12 L Est GFR (MDRD) Non-Af 10 L BUN/Creatinine Ratio 11.6 Glucose 202 H Calcium 8.2 L Blood Type O POSITIVE Antibody Screen NEGATIVE Crossmatch See Detail See Detail Radiography Diagnostic Testing: Clinical Impression(s) from Imaging Studies Abdomen/Pelvis CTA 08/31/23 19:52 IMPRESSION: 1. Atherosclerosis of the aorta with similar appearance of chronic distal aortic dissection and overall mild ectasia measuring up to approximately 3 cm in diameter. The false lumen is mostly thrombosed. 2. Paraseptal and centrilobular emphysematous changes. NOTE: Emphysema on CT is an independent risk factor for lung cancer. Consider low dose CT for lung cancer screening between the ages of 50 and 77. 3. 1.9 cm right adrenal nodule with low attenuation and 1.7 cm left adrenal nodule with low attenuation. These are most likely adenomas. ACR White Paper guidelines (Farmer-Bueno, et al. JACR 2017; 14(8):1772-5485) suggest no imaging follow-up is necessary. ACR White Paper guidelines (Farmer-Bueno, et al. JACR 2017; 14(8):9493-8845) suggest no imaging follow-up is necessary. Consider biochemical assays to determine functional status and exclude pheochromocytoma if biopsy/resection is planned. 4. Severe right-sided hydroureteronephrosis associated with multifocal intracerebral linear filling defects and apparent mid to distal ureteral stricture. This is similar to the prior examination. Ureteral filling defect may be secondary to prior intervention/stenting. 5. 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 6. Moderate bilateral renal artery stenosis proximally. 7. Mild cardiomegaly without pericardial effusion. 8. Trace right pleural effusion and right posterior lower lobe airspace disease which may be atelectasis or pneumonia. Minimal left basilar airspace disease which also may be atelectasis or pneumonia. 9. No definite intraluminal extravasation of contrast to indicate location of presumptive gastrointestinal bleed. 10. Sludge and/or stones within the gallbladder lumen. No secondary signs of cholecystitis. 11. IVC filter is present. Recommend determining if there is a management place in place for this IVC filter. If not, then recommend referral to an interventional radiologist on a nonemergent basis for evaluation. 12. Colonic diverticulosis without discrete evidence of acute diverticulitis. Electronically Signed: Goran Langford DO at 20:23 EDT , <Dr. Igor Shepherd, DO - Last Filed: 09/01/23 08:02> [facility] Lab Data Labs: Laboratory Results - last 24 hr 08/31/23 08/31/23 08/31/23 12:15 12:15 23:05 WBC 10.4 RBC 2.16 L Hgb 6.1 L 7.9 L Hct 20.5 L 25.5 L MCV 94.9 H MCH 28.2 MCHC 29.8 L RDW Std Deviation 71.2 H RDW Coeff of Lencho 20.7 H Plt Count 142 L MPV 10.6 Immature Gran % (Auto) 0.400 Neut % (Auto) 90.6 H Lymph % (Auto) 3.6 L Owen % (Auto) 5.1 Eos % (Auto) 0.2 Baso % (Auto) 0.1 Absolute Neuts (auto) 9.4 H Absolute Lymphs (auto) 0.37 L Nucleated RBC % 0 Differential Comment COMMENT Anisocytosis 1+ Sodium 141 Potassium 4.6 Chloride 103 Carbon Dioxide 34.0 H Anion Gap 4 L BUN 70 H Creatinine 6.05 H Estim Creat Clear Calc 11.51 Est GFR (MDRD) Af Amer 12 L Est GFR (MDRD) Non-Af 10 L BUN/Creatinine Ratio 11.6 Glucose 202 H Calcium 8.2 L Blood Type O POSITIVE Antibody Screen NEGATIVE Crossmatch See Detail See Detail Radiography Diagnostic Testing: Clinical Impression(s) from Imaging Studies Abdomen/Pelvis CTA 08/31/23 19:52 IMPRESSION: 1. Atherosclerosis of the aorta with similar appearance of chronic distal aortic dissection and overall mild ectasia measuring up to approximately 3 cm in diameter. The false lumen is mostly thrombosed. 2. Paraseptal and centrilobular emphysematous changes. NOTE: Emphysema on CT is an independent risk factor for lung cancer. Consider low dose CT for lung cancer screening between the ages of 50 and 77. 3. 1.9 cm right adrenal nodule with low attenuation and 1.7 cm left adrenal nodule with low attenuation. These are most likely adenomas. ACR White Paper guidelines (Farmer-Bueno, et al. JACR 2017; 14(8):9083-9410) suggest no imaging follow-up is necessary. ACR White Paper guidelines (Farmer-Bueno, et al. JACR 2017; 14(8):0805-8314) suggest no imaging follow-up is necessary. Consider biochemical assays to determine functional status and exclude pheochromocytoma if biopsy/resection is planned. 4. Severe right-sided hydroureteronephrosis associated with multifocal intracerebral linear filling defects and apparent mid to distal ureteral stricture. This is similar to the prior examination. Ureteral filling defect may be secondary to prior intervention/stenting. 5. 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 6. Moderate bilateral renal artery stenosis proximally. 7. Mild cardiomegaly without pericardial effusion. 8. Trace right pleural effusion and right posterior lower lobe airspace disease which may be atelectasis or pneumonia. Minimal left basilar airspace disease which also may be atelectasis or pneumonia. 9. No definite intraluminal extravasation of contrast to indicate location of presumptive gastrointestinal bleed. 10. Sludge and/or stones within the gallbladder lumen. No secondary signs of cholecystitis. 11. IVC filter is present. Recommend determining if there is a management place in place for this IVC filter. If not, then recommend referral to an interventional radiologist on a nonemergent basis for evaluation. 12. Colonic diverticulosis without discrete evidence of acute diverticulitis. Electronically Signed: Goran Langford, at 20:23 EDT , Treatment and Re-Evaluation :: Patient was signed out to me while awaiting potential acceptance at [facility]. The case was discussed with her medicine physician and she does agree to accept the patient at this time. However they are boarding people and he does not have a bed available and therefore he was observed in the ER for over 6 hours waiting for potential bed open. [facility] was once again notified and they state that they still do not have any timeframe for a bed assignment. Based on hospital policy as the patient's been accepted to an outside facility but does not have a bed assignment within the 6-hour timeframe he will be admitted to the medical service here until such a time presents itself Discharge Plan Triage Chief Complaint: Abn Labs ED Provider: Kory Flynn Dx/Rx/DC Orders Clinical Impression: Anemia, Chronic anticoagulation, History of end stage renal disease, Anemia requiring transfusions, History of renal dialysis, History of CHF (congestive heart failure), Acute hypotension Prescriptions: No Action Eliquis 2.5 mg tablet 2.5 mg PO BID Hold Instructions: Hold for 5 days. vitamin B complex 1 EACH tablet 1 tab PO DAILY Velphoro 500 mg tablet,chewable 500 mg PO TIDCM budesonide 3 mg capsule,delayed,extend.release 9 mg PO DAILY Bibiana-Leoncio 0.8 mg tablet 1 tab PO DAILY clopidogrel 75 mg Tablet 75 mg PO DAILY Qty: 0 0RF midodrine 5 mg tablet 5 mg PO TUTHSA Rx Instructions: GIVE PRIOR TO DIALYSIS atorvastatin 20 mg tablet 20 mg PO QHS bisacodyl 10 mg suppository 10 mg SC QHS PRN (Reason: constipation) carvedilol 3.125 mg tablet 3.125 mg PO BID mineral oil [Fleet Mineral Oil] Enema 118 ml SC DAILY PRN (Reason: constipation) Rx Instructions: USE IF NO BM 8 HOURS AFTER BISACODYL SUPPOSITORY. IF NO BM WITHIN 1 HOUR OF ENEMA, NOTIFY MD. magnesium hydroxide [Milk of Magnesia] 400 mg/5 mL suspension 30 ml PO DAILY PRN (Reason: constipation) Rx Instructions: ADMINISTER ONCE DAILY IF NO BM IN 3 DAYS polyethylene glycol 3350 [ClearLax] 17 gram/dose powder 17 g PO DAILY PRN (Reason: constipation) amiodarone 200 mg tablet 200 mg PO DAILY sucralfate 1 gram Tablet 1 g PO 4X/DAY Rx Instructions: GIVE 1 TABLET BY MOUTH BEFORE MEAL AND AT BEDTIME pantoprazole 40 mg Tablet,Delayed Release (Dr/Ec) 40 mg PO BID levofloxacin 750 mg tablet 750 mg PO DAILY Rx Instructions: START- 08/28/2023, END - 09/01/2023 albuterol sulfate 0.63 mg/3 mL solution for nebulization 0.63 mg inhalation Q4H PRN (Reason: bronchospasm) Qty: 75 0RF Primary Care Provider: Martin Nunez Referrals: Martin Nunez DO [Primary Care Provider] - Disposition Disposition: Acute Care Hospital [facility]
[2023-08-31 23:10] LABS: Hematocrit 25.5 % (40-54); Hemoglobin 7.9 g/dL (13.0-16.5)
[2023-09-01] VITALS (17 sets, daily range): BP systolic 100–212; BP diastolic 47–92; PULSE 64–733; RESP 16–118; TEMP 36.5–36.8; O2SAT 94–100; BMI 30.9; BMI 30.1
--- NOTE | 2023-09-01 07:32 | NURSING ---
CALLED [facility] TALKED TO YAHAIRA, NO BED ANYTIME SOON:
--- NOTE | 2023-09-01 07:33 | NURSING ---
MED SURG OBS WILBERONIS ANEMIA, TRANSFUSION, ESRD
--- NOTE | 2023-09-01 08:04 | PCM.HP.STD ---
HPI - General General Date of Admission: 09/01/23 Date of Service: 09/01/23 Chief Complaint: Abn Labs HPI Narrative RIA MARIANO, is a 78 M who presented to the emergency department [facility] on 08/31/2023 due to abnormal labs that were [facility] receiving rehab. Patient states he underwent a toe amputation up in [place] at which time they restarted his Plavix and Eliquis as he had been off of the medications prior to this due to recurrent GI bleeding. He does have a history of peripheral vascular disease and DVT. He has had several admissions for GI bleeds here with the most recent being in May 2023. EGD and colonoscopy were done at that time and EGD revealed small esophageal varices with no gross lesions in the stomach, and single duodenal polyp that was clipped. A colonoscopy showed diverticulosis that was fairly pancolonic, bleeding from diverticular opening in the rectosigmoid colon that was injected and tattooed with clip placement and mild inflammation of the ileum secondary to ileitis. He was sent home with Protonix 40 mg twice daily and Carafate. He also has end-stage renal disease on dialysis. He states on Tuesday of last week when he was getting dialyzed he had to cut his session short as he became short of breath and was diagnosed with pneumonia and placed on Levaquin. Evidently lab was drawn yesterday and he was found to be anemic so he was sent to the emergency department. The patient denied any blood in his stool. He recently had a transfusion for hemoglobin of 6.8 and was given 1 unit of blood. He states generally he has been feeling well. Vital signs show temperature of 98, heart rate 77, blood pressure was 152/76, respiratory was 18 oxygen saturations are 100% on room air. CBC on presentation showed a normal white count with a hemoglobin of 6.1 and mild thrombocytopenia with a platelet count of 142,000. He was given 2 units of packed red blood cells and his hemoglobin improved to 7.9. His chemistry on admission showed elevated serum bicarb and elevated serum creatinine at 70 and 6.05 respectively however he is end-stage renal disease on HD and has a right upper extremity fistula. His blood glucose level was 202. A CT of the abdomen pelvis was performed and scope showed atherosclerotic disease of the aorta with similar appearance of the chronic distal aortic dissection and overall mild ectasia measuring about 3 cm in diameter with a falsely lumen that is thrombosed, paraseptal and centrilobular emphysematous changes, 1.9 cm right adrenal nodule and a 1.7 cm left adrenal nodule with low attenuation that are suspected to be adenomas, severe right-sided hydronephrosis which is unchanged, mild to moderate stenosis of the proximal bilateral internal iliac arteries secondary to atherosclerosis, moderate bilateral renal artery stenosis, mild cardiomegaly, trace pleural effusion on the right, sludge or stones in the gallbladder with no signs of cholecystitis, IVC filter in place and colonic diverticulosis. The case was discussed with GI and they recommended transfer to tertiary center as he has been scoped multiple times here and there was concern that he may need further intervention via IR or surgical consultation which is not available at this institution. He was transferred to [facility] and was excepted however there were no beds available at this time so he will be admitted here until bed becomes available. They anticipated bed availability to open up in the next 24 to 48 hours. [facility] Medical History Anemia Aortic root dilatation Arthritis Atrial fibrillation Bladder cancer Cancer Cardiology follow-up encounter (~04/04/23) CHF (congestive heart failure) CKD (chronic kidney disease) stage 5, GFR less than 15 ml/min Coronary artery disease Dialysis patient Duodenal ulcer ESRD (end stage renal disease) on dialysis Essential hypertension Former smoker Hepatic cyst History of atrial fibrillation History of DVT (deep vein thrombosis) History of echocardiogram (~06/30/22) History of GI bleed History of pulmonary embolism History of solitary pulmonary nodule History of stress test (~05/03/22) HIT (heparin-induced thrombocytopenia) HLD (hyperlipidemia) Hyperparathyroidism Iron deficiency anemia Kidney disease Left upper chest discomfort Loss of hearing Low iron Lower gastrointestinal bleeding Lymphoma Paroxysmal A-fib Preop cardiovascular exam Pulmonary embolism Renal calculus Sleep apnea VTE (venous thromboembolism) Wears dentures Wears glasses Wears partial dentures Wide-complex tachycardia Home Medications vitamin B complex 1 tab PO DAILY SUPPLEMENT 07/02/20 [History Last Taken 02/28/23 11:00] sucroferric oxyhydroxide 500 mg chewable tablet (Velphoro) 500 mg PO TIDCM anemia 03/01/23 [History Last Taken Unknown] apixaban 2.5 mg tablet (Eliquis) 2.5 mg PO BID blood thinner 04/04/23 [History Last Taken 05/15/23] budesonide 3 mg capsule,delayed,extended release 9 mg PO DAILY stomach 06/16/23 [History Last Taken Unknown] vitamin B complex-vitamin C-folic acid 0.8 mg tablet (Bibiana-Leoncio) 1 tab PO DAILY supplement 06/16/23 [History Last Taken Unknown] clopidogrel 75 mg tablet 75 mg PO DAILY #0 tabs 06/18/23 [Rx Last Taken Unknown] midodrine 5 mg tablet 5 mg PO TUTHSA 07/28/23 [History Last Taken Unknown] albuterol sulfate 0.63 mg/3 mL solution for nebulization 0.63 mg (3 mL) inhalation Q4H PRN bronchospasm #75 mL 08/27/23 [Rx Last Taken Unknown] amiodarone 200 mg tablet 200 mg PO DAILY heart rate 08/31/23 [History Last Taken Unknown] atorvastatin 20 mg tablet 20 mg PO QHS CHOLESTEROL 08/31/23 [History Last Taken Unknown] bisacodyl 10 mg rectal suppository 10 mg NE QHS PRN constipation 08/31/23 [History Last Taken Unknown] carvedilol 3.125 mg tablet 3.125 mg PO BID HIGH BLOOD PRESSURE 08/31/23 [History Last Taken Unknown] levofloxacin 750 mg tablet 750 mg PO DAILY 08/31/23 [History Last Taken Unknown] magnesium hydroxide 400 mg/5 mL oral suspension (Milk of Magnesia) 30 ml PO DAILY PRN constipation 08/31/23 [History Last Taken Unknown] mineral oil (Fleet Mineral Oil enema) 118 ml NE DAILY PRN constipation 08/31/23 [History Last Taken Unknown] pantoprazole 40 mg tablet,delayed release 40 mg PO BID reflux 08/31/23 [History Last Taken Unknown] polyethylene glycol 3350 17 gram/dose oral powder (ClearLax) 17 g PO DAILY PRN constipation 08/31/23 [History Last Taken Unknown] sucralfate 1 gram tablet 1 g PO 4X/DAY reflux 08/31/23 [History Last Taken Unknown] Allergy/AdvReac Type Severity Reaction Status Date / Time Iodinated Contrast Media Allergy Intermediate KIDNEY Verified 08/31/23 11:38 FAILURE enoxaparin [From Lovenox] Allergy Other Verified 08/31/23 11:38 heparin Allergy Other Verified 08/31/23 11:38 aspirin AdvReac Other Verified 08/31/23 11:38 Family History Father Cancer lung Arrhythmia Brother Cancer Mother Dementia Surgical History AV fistula H/O total cystectomy History of bladder surgery History of cataract extraction History of corrected cleft lip and palate History of foot surgery History of tonsillectomy S/P peripheral artery angioplasty with stent placement Social History household members: none Smoking Status: Former smoker how long ago did patient quit smoking: Started age 7, stopped at 17, started again 22-2 ppd until quit 2008 alcohol intake: never substance use type: does not use caffeine: No ROS Constitutional Constitutional: Reports fatigue and weakness; Denies anorexia, change in weight, chills, fever(s), malaise, night sweats or other Eyes Eyes: Denies blurry vision, change in eye color, change in vision, discharge from eye(s), double vision, erythema, eye pain, loss of vision or other ENT HEENT: Reports abnormal hearing and hearing loss; Denies dysphagia, ear pain, epistaxis, headache(s), nasal congestion, nasal discharge, post nasal drip, sinus pressure, sore throat or other Cardiovascular Cardiovascular: Denies chest pain, claudication, dyspnea on exertion, edema, lightheadedness, orthopnea, palpitations, paroxysmal nocturnal dyspnea, rapid heart rate, syncope or other Respiratory/Chest Respiratory/Chest: Denies cough, dyspnea, excessive phlegm production, hemoptysis, productive cough, shortness of breath at rest, shortness of breath with exertion, wheezing or other Gastrointestinal Gastrointestinal: Denies abdominal pain, coffee ground emesis, constipation, diarrhea, dyspepsia, hematemesis, hematochezia, loose stools, melena, nausea, vomiting or other Genitourinary Genitourinary: Denies burning urination, difficulty urinating, dysuria, hematuria, nocturia, urinary frequency, urinary hesitancy, urinary incontinence, urinary urgency or other Musculoskeletal Musculoskeletal: Reports back pain, joint pain and joint stiffness; Denies arthralgias, joint swelling, myalgias, neck pain or other Neurologic Neurologic: Reports abnormal gait; Denies abnormal speech, confusion, disequilibrium, dizziness, focal weakness, headache(s), numbness, paresthesias, seizure-like activity, seizures, syncope, tingling, tremor(s) or other Psychiatric Psychiatric: Denies anxiety, depression, homicidal ideation, suicidal ideation or other Endocrine Endocrinology: Denies change in body appearance, cold intolerance, excessive sweating, heat intolerance, polydipsia, polyuria or other Hematologic/Lymphatic Hematologic/Lymphatic: Reports anemia and easy bruising; Denies easy bleeding, lymphadenopathy or other Allergic/Immunologic Allergic/Immunologic: Denies rhinitis, hives, eczemia, asthma or other Vital Signs Vital Signs Vital Signs: 08/31/23 11:39 08/31/23 11:47 08/31/23 13:53 Temperature 97.5 F L Temperature Source Temporal Pulse Rate 81 88 Respiratory Rate 20 H 23 H Respiratory Effort Normal Non-Labored Respiratory Pattern Normal Blood Pressure 94/40 L 104/60 Blood Pressure Mean 58 74 Blood Pressure Source Blood Pressure Position Blood Pressure Location Pulse Ox 99 100 Oxygen Delivery Method Room Air Room Air Oxygen Flow Rate (L/min) 08/31/23 14:20 08/31/23 14:26 08/31/23 14:40 Temperature 96.2 F L 96.2 F L 98 F Temperature Source Temporal Temporal Temporal Pulse Rate 83 83 78 Respiratory Rate 16 19 H 20 H Respiratory Effort Respiratory Pattern Blood Pressure 84/73 L 84/73 L 84/73 L Blood Pressure Mean 76 76 76 Blood Pressure Source Monitor Monitor Blood Pressure Position Semi-Fowlers Supine Blood Pressure Location Right Arm Right Arm Pulse Ox 99 23 99 Oxygen Delivery Method Room Air Nasal Cannula Nasal Cannula Oxygen Flow Rate (L/min) 2 08/31/23 14:41 08/31/23 15:41 08/31/23 13:58 Temperature 98 F 97.2 F L Temperature Source Temporal Temporal Pulse Rate 78 89 84 Respiratory Rate 20 H 24 H 23 H Respiratory Effort Respiratory Pattern Blood Pressure 125/78 H Blood Pressure Mean 93 Blood Pressure Source Blood Pressure Position Blood Pressure Location Pulse Ox 99 99 100 Oxygen Delivery Method Nasal Cannula Room Air Oxygen Flow Rate (L/min) 2 08/31/23 14:00 08/31/23 14:10 08/31/23 14:20 Temperature Temperature Source Pulse Rate 83 84 93 Respiratory Rate 21 H 15 20 H Respiratory Effort Respiratory Pattern Blood Pressure 84/73 L Blood Pressure Mean 79 Blood Pressure Source Blood Pressure Position Blood Pressure Location Pulse Ox 100 Oxygen Delivery Method Oxygen Flow Rate (L/min) 08/31/23 14:30 08/31/23 14:40 08/31/23 14:50 Temperature Temperature Source Pulse Rate 78 77 92 Respiratory Rate 16 21 H 32 H Respiratory Effort Respiratory Pattern Blood Pressure Blood Pressure Mean Blood Pressure Source Blood Pressure Position Blood Pressure Location Pulse Ox 99 Oxygen Delivery Method Oxygen Flow Rate (L/min) 08/31/23 15:00 08/31/23 15:01 08/31/23 15:10 Temperature Temperature Source Pulse Rate 82 77 77 Respiratory Rate 22 H 22 H 20 H Respiratory Effort Respiratory Pattern Blood Pressure 126/67 H Blood Pressure Mean 84 Blood Pressure Source Blood Pressure Position Blood Pressure Location Pulse Ox 100 Oxygen Delivery Method Oxygen Flow Rate (L/min) 08/31/23 15:20 08/31/23 15:30 08/31/23 15:40 Temperature Temperature Source Pulse Rate 78 75 76 Respiratory Rate 20 H 19 H 18 Respiratory Effort Respiratory Pattern Blood Pressure Blood Pressure Mean Blood Pressure Source Blood Pressure Position Blood Pressure Location Pulse Ox 85 96 Oxygen Delivery Method Oxygen Flow Rate (L/min) 08/31/23 15:50 08/31/23 16:00 08/31/23 16:23 Temperature 97.3 F L Temperature Source Temporal Pulse Rate 79 84 77 Respiratory Rate 20 H 21 H 22 H Respiratory Effort Respiratory Pattern Blood Pressure 125/78 H 125/78 H Blood Pressure Mean 92 93 Blood Pressure Source Monitor Blood Pressure Position Semi-Fowlers Blood Pressure Location Right Arm Pulse Ox 98 98 Oxygen Delivery Method Nasal Cannula Oxygen Flow Rate (L/min) 08/31/23 16:30 08/31/23 16:45 08/31/23 16:10 Temperature 96.9 F L 97.1 F L Temperature Source Temporal Temporal Pulse Rate 86 88 84 Respiratory Rate 18 22 H 18 Respiratory Effort Respiratory Pattern Blood Pressure 120/65 126/65 H Blood Pressure Mean 83 85 Blood Pressure Source Monitor Monitor Blood Pressure Position Semi-Fowlers Semi-Fowlers Blood Pressure Location Left Arm Left Arm Pulse Ox 96 99 99 Oxygen Delivery Method Nasal Cannula Nasal Cannula Oxygen Flow Rate (L/min) 08/31/23 16:20 08/31/23 16:30 08/31/23 16:31 Temperature Temperature Source Pulse Rate 85 81 86 Respiratory Rate 14 22 H 21 H Respiratory Effort Respiratory Pattern Blood Pressure 120/65 Blood Pressure Mean 81 Blood Pressure Source Blood Pressure Position Blood Pressure Location Pulse Ox 97 97 97 Oxygen Delivery Method Oxygen Flow Rate (L/min) 08/31/23 16:40 08/31/23 16:50 08/31/23 17:00 Temperature Temperature Source Pulse Rate 81 73 85 Respiratory Rate 22 H 21 H 22 H Respiratory Effort Respiratory Pattern Blood Pressure 126/65 H Blood Pressure Mean 83 Blood Pressure Source Blood Pressure Position Blood Pressure Location Pulse Ox 100 99 Oxygen Delivery Method Oxygen Flow Rate (L/min) 08/31/23 17:10 08/31/23 17:20 08/31/23 17:30 Temperature Temperature Source Pulse Rate 87 85 77 Respiratory Rate 21 H 24 H 22 H Respiratory Effort Respiratory Pattern Blood Pressure Blood Pressure Mean Blood Pressure Source Blood Pressure Position Blood Pressure Location Pulse Ox 97 99 98 Oxygen Delivery Method Oxygen Flow Rate (L/min) 08/31/23 17:40 08/31/23 17:50 08/31/23 18:00 Temperature Temperature Source Pulse Rate 77 96 92 Respiratory Rate 26 H 17 20 H Respiratory Effort Respiratory Pattern Blood Pressure 81/58 L Blood Pressure Mean 65 Blood Pressure Source Blood Pressure Position Blood Pressure Location Pulse Ox 97 97 Oxygen Delivery Method Oxygen Flow Rate (L/min) 08/31/23 18:18 08/31/23 18:20 08/31/23 18:30 Temperature Temperature Source Pulse Rate 100 81 81 Respiratory Rate 27 H 25 H 23 H Respiratory Effort Respiratory Pattern Blood Pressure 120/43 L Blood Pressure Mean 67 Blood Pressure Source Blood Pressure Position Blood Pressure Location Pulse Ox 93 99 Oxygen Delivery Method Oxygen Flow Rate (L/min) 08/31/23 18:40 08/31/23 18:50 08/31/23 17:45 Temperature 97.5 F L Temperature Source Temporal Pulse Rate 78 75 79 Respiratory Rate 18 24 H 22 H Respiratory Effort Respiratory Pattern Blood Pressure 126/65 H Blood Pressure Mean 85 Blood Pressure Source Monitor Blood Pressure Position Semi-Fowlers Blood Pressure Location Left Arm Pulse Ox 95 Oxygen Delivery Method Nasal Cannula Oxygen Flow Rate (L/min) 08/31/23 18:45 08/31/23 21:10 08/31/23 23:00 Temperature 98.1 F Temperature Source Temporal Pulse Rate 77 77 83 Respiratory Rate 20 H 19 H 20 H Respiratory Effort Respiratory Pattern Blood Pressure 115/56 L 156/85 H 153/82 H Blood Pressure Mean 75 108 105 Blood Pressure Source Monitor Blood Pressure Position Semi-Fowlers Blood Pressure Location Left Arm Pulse Ox 95 99 98 Oxygen Delivery Method Room Air Room Air Oxygen Flow Rate (L/min) 09/01/23 02:29 09/01/23 04:00 09/01/23 06:00 Temperature Temperature Source Pulse Rate 79 77 99 Respiratory Rate 18 16 16 Respiratory Effort Respiratory Pattern Blood Pressure 134/67 H 144/67 H 142/92 H Blood Pressure Mean 89 92 108 Blood Pressure Source Blood Pressure Position Blood Pressure Location Pulse Ox 99 97 99 Oxygen Delivery Method Room Air Oxygen Flow Rate (L/min) 09/01/23 06:00 09/01/23 08:02 Temperature Temperature Source Pulse Rate 77 77 Respiratory Rate 19 H 18 Respiratory Effort Respiratory Pattern Blood Pressure 142/92 H 152/76 H Blood Pressure Mean 108 101 Blood Pressure Source Blood Pressure Position Blood Pressure Location Pulse Ox 99 100 Oxygen Delivery Method Room Air Oxygen Flow Rate (L/min) Weight Weight: 96.4 kg Body Mass Index (BMI) 31.4 Physical Exam Const alert, oriented x3, no apparent distress and well nourished; Negative for average body habitus or healthy appearing Constitutional Narrative: Older, obese, white male, lying in bed, currently appears comfortable, very pleasant, interacts appropriately, appears chronically ill General Appearance: cooperative HEENT normocephalic, head/scalp atraumatic and moist oral mucous membranes HEENT Narrative: Mild hearing loss, dentition is poor, Mallampati is 3, no thrush Eyes PERRL and EOMs intact bilaterally; Negative for conjunctivae normal Eyes Narrative: Conjunctiva pallor bilaterally, no scleral icterus Neck no lymphadenopathy and supple Neck Narrative: Trachea midline, no thyroid enlargement Resp normal respiratory effort, no retractions, no use of accessory muscles and clear to auscultation bilaterally Resp Narrative: Mildly diminished diffusely at bases greater than apices but no adventitious sounds noted Auscultation: Negative for rales, rhonchi or wheezes Cardio regular rate, regular rhythm, S1 normal heart sound, S2 normal heart sound, no rub, no gallops and no clicks Cardio Narrative: 3 out of 6 systolic murmur GI normal to inspection, nondistended, normoactive bowel sounds and soft to palpation GI Narrative: Mild tenderness with light palpation to the left lower abdomen, no signs of rash, ecchymosis or abnormalities Extremity no clubbing, cyanosis or edema Extremity Narrative: Diminished pedal pulses bilaterally Skin Skin Narrative: Left lower extremity with postoperative dressing and Elfego bandage in place Neuro oriented x3, moves all extremities and no focal motor deficits Neuro Narrative: Patient has fairly significant generalized weakness that is more extensive in the proximal musculature than distal Speech: speech normal Psych affect normal Psych Narrative: Eye contact is good and patient is appropriate Results Lab / Micro Data 08/31/23 23:05 08/31/23 12:15 Labs: Laboratory Results - last 24 hr 08/31/23 12:15: WBC 10.4, RBC 2.16 L, Hgb 6.1 L, Hct 20.5 L, MCV 94.9 H, MCH 28.2, MCHC 29.8 L, RDW Std Deviation 71.2 H, RDW Coeff of [place] 20.7 H, Plt Count 142 L, MPV 10.6, Immature Gran % (Auto) 0.400, Neut % (Auto) 90.6 H, Lymph % (Auto) 3.6 L, [place] % (Auto) 5.1, Eos % (Auto) 0.2, Baso % (Auto) 0.1, Absolute Neuts (auto) 9.4 H, Absolute Lymphs (auto) 0.37 L, Nucleated RBC % 0, Differential Comment COMMENT, Anisocytosis 1+, Sodium 141, Potassium 4.6, Chloride 103, Carbon Dioxide 34.0 H, Anion Gap 4 L, BUN 70 H, Creatinine 6.05 H, Estim Creat Clear Calc 11.51, Est GFR (MDRD) Af Amer 12 L, Est GFR (MDRD) Non-Af 10 L, BUN/Creatinine Ratio 11.6, Glucose 202 H, Calcium 8.2 L, Blood Type O POSITIVE, Antibody Screen NEGATIVE, Crossmatch See Detail 08/31/23 12:15: Crossmatch See Detail 08/31/23 23:05: Hgb 7.9 L, Hct 25.5 L Micro: Microbiology 08/31/23 18:25 Stool Stool Occult Blood (ROSEMARY) - Final Occult Blood Positive Imaging Radiology Impression Abdomen/Pelvis CTA 08/31/23 19:52 IMPRESSION: 1. Atherosclerosis of the aorta with similar appearance of chronic distal aortic dissection and overall mild ectasia measuring up to approximately 3 cm in diameter. The false lumen is mostly thrombosed. 2. Paraseptal and centrilobular emphysematous changes. NOTE: Emphysema on CT is an independent risk factor for lung cancer. Consider low dose CT for lung cancer screening between the ages of 50 and 77. 3. 1.9 cm right adrenal nodule with low attenuation and 1.7 cm left adrenal nodule with low attenuation. These are most likely adenomas. ACR White Paper guidelines (Farmer-Bueno, et al. JACR 2017; 14(8):0614-4119) suggest no imaging follow-up is necessary. ACR White Paper guidelines (Farmer-Bueno, et al. JACR 2017; 14(8):7683-2561) suggest no imaging follow-up is necessary. Consider biochemical assays to determine functional status and exclude pheochromocytoma if biopsy/resection is planned. 4. Severe right-sided hydroureteronephrosis associated with multifocal intracerebral linear filling defects and apparent mid to distal ureteral stricture. This is similar to the prior examination. Ureteral filling defect may be secondary to prior intervention/stenting. 5. 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 6. Moderate bilateral renal artery stenosis proximally. 7. Mild cardiomegaly without pericardial effusion. 8. Trace right pleural effusion and right posterior lower lobe airspace disease which may be atelectasis or pneumonia. Minimal left basilar airspace disease which also may be atelectasis or pneumonia. 9. No definite intraluminal extravasation of contrast to indicate location of presumptive gastrointestinal bleed. 10. Sludge and/or stones within the gallbladder lumen. No secondary signs of cholecystitis. 11. IVC filter is present. Recommend determining if there is a management place in place for this IVC filter. If not, then recommend referral to an interventional radiologist on a nonemergent basis for evaluation. 12. Colonic diverticulosis without discrete evidence of acute diverticulitis. Electronically Signed: Goran Langford DO at 20:23 EDT , Assessment & Plan Assessment/Plan (1) Anemia: (2) Chronic anticoagulation: (3) Community acquired pneumonia: (4) GI bleed: PLAN: Acute on chronic anemia secondary to GI bleed -Patient with history of GI bleed-most of which had been an upper source -Baseline hemoglobin is unclear as he has had significant fluctuation due to the fact that he has multiple GI bleeds, however it appears that in between his bleeding he has been running anywhere from 7.5-8.5 -6.1 on presentation and 7.9 status post 2 units of packed red blood cells -Recommendation from GI was transferred to tertiary center for IR evaluation -Patient has been accepted at [facility] however no bed availability at this time so we will admit until bed becomes available -Check every 6 hours H&H -Hold Plavix and Eliquis for now -Protonix drip -Continue home Carafate -Continue diet for now -GI consultation--> Dr. Garay notified Community-acquired pneumonia -Patient was recently seen emergency department and diagnosed with commune acquired pneumonia -Has 2 more days of antibiotics -Will dose at 500 mg every other day and give after dialysis on dialysis days -Antibiotic should be complete on Tuesday End-stage renal disease-HD dependent -Right upper extremity fistula has a positive thrill and bruit -Continue home medications for his chronic renal disease -Patient typically is dialyzed on Tuesday, , and Tuesday -Continue midodrine with dialysis -Consultation to nephrology for dialysis--> Dr. Sonia He was notified Recent left toe amputation -Follows with Dr. Hill -Will have wound care follow while he is hospitalized Mild thrombocytopenia -This fluctuates -Likely consumptive -Will continue to follow GERD/history of peptic ulcer disease/gastric varices -See above Chronic anemia secondary to chronic renal disease -See above Paroxysmal A. fib with RVR with history of wide-complex tachycardia -Continue home carvedilol -Continue amiodarone -Continue to monitor -Hold Eliquis due to the above HTN/HPL -Continue home atorvastatin -Continue home carvedilol History of DVT -Hold Eliquis -Patient does have IVC filter in place and needs outpatient follow-up for this -Would recommend follow-up with Dr. Miramontes in the future Chronic aortic dissection -Stable on current CT -Outpatient follow-up JENNIFER -Patient is not compliant with CPAP DVT prophylaxis -SCDs -Chemoprophylaxis contraindicated due to GI bleeding CODE STATUS - full code is verified on admission Charges/Coding Visit Charges Inpatient E&M: 58277 Init Hosp L2
[2023-09-01] MEDS: levoFLOXacin 750 MG Tablet PO (08:22)
[2023-09-01 10:12] LABS: Absolute Neutrophil Count 8.6 X10^3/uL (2.0-7.7); Basophil# 0.02 X10^3/uL; Basophil% 0.2 % (0-1); Eosinophil# 0.02 X10^3/uL; Eosinophils% 0.2 % (0-5); Hemoglobin 7.6 g/dL (13.0-16.5); Lymphocyte % 4.1 % (19-41); Mean Corp Hgb Conc 30.4 g/dL (32-36); Mean Corpuscular Volume 92.3 fL (80-94); Mean Platelet Vol. 10.1 fl (6.2-12.0); Monocyte% 5.2 % (0-10); NRBC Flagged by Analyzer 0 % (0-5); Neutrophil # 8.63 X10^3/uL (2.7-7.7); Neutrophil % 89.4 % (47-70); POSITIVE DIFFERENTIAL YES; POSITIVE MORPHOLOGY YES; Platelet Count 140 K/mm3 (150-450); RBC Distribution Width CV 19.7 % (11.6-14.6); RBC Distribution Width SD 65.9 fl (35.1-43.9); Red Blood Count 2.71 M/mm3 (4.6-6.2); White Blood Count 9.7 K/mm3 (4.4-11.0)
[2023-09-01 10:17] LABS: Differential Indicated SCAN CRITERIA MET
[2023-09-01 10:28] LABS: Anion Gap 6 (5-15); BUN 91 mg/dL (7-18); BUN/Creat Ratio 11.9 RATIO (10-20); Calcium,Total 8.3 mg/dL (8.5-10.1); Chloride 102 mmol/L (98-107); Creatinine, Serum 7.62 mg/dL (0.70-1.30); EST Glomerular Filtration Rate 7 mL/min (>60); Est Glom Filt Rate - Afr Amer 9 mL/min (>60); Estimated Creatinine Clearance 9.14 ml/min; Glucose 170 mg/dL (74-106); Potassium 5.1 mmol/L (3.5-5.1); Sodium Level 140 mmol/L (136-145)
[2023-09-01 10:44] LABS: Platelet Estimate ADEQUATE (ADEQ)
[2023-09-01 10:45] LABS: Anisocytosis 2+; Macrocytosis 2+; Ovalocyte 2+; Polychromasia 1+
[2023-09-01] MEDS: 0.9% Normal Saline 1,000 ML IV.SOLN. 1000 ML OPERA.SITE (11:11)
[2023-09-01] MEDS: PureFlow B 2K Dialysis Soln 1 BAG 6 BAG PF (11:11)
--- NOTE | 2023-09-01 11:50 | PCM.CONS.R ---
Assessment & Plan Assessment/Plan (1) ESRD (end stage renal disease) on dialysis: PLAN: Dialysis TTS, seen on dialysis, fluid removal as tolerated, No heparin with treatment due to GI bleed (2) GI bleed: (3) Anemia requiring transfusions: PLAN: 2u prbc given, hgb 6.1g improved to 7.6g today (4) Atrial fibrillation: QUALIFIERS: Atrial fibrillation type: unspecified chronic Qualified Code(s): I48.20 - Chronic atrial fibrillation, unspecified HPI Consult Data Date of Consult: 09/01/23 HPI Narrative Reason for Consultation: ESRD on HD TTS. HPI Narrative: RIA MARIANO, is a 78 M who presents with acute anemia from GI bleed. Hgb 6.8g as outpt. Received 2uprbc in ED last night. Hgb 7.6g. Black stools noted in ED. Seen on dialysis, dialysis TTS. He is at [facility] for rehab following toe amputation for osteo at [facility]. He was started back on plavix after discharge from [facility]. He admits to mild LLQ abdominal discomfort. [facility] Medical History (Updated 09/01/23 @ 11:[address] Sonia He, DO) Anemia Aortic root dilatation Arthritis Atrial fibrillation Bladder cancer Cancer Cardiology follow-up encounter (~04/04/23) CHF (congestive heart failure) CKD (chronic kidney disease) stage 5, GFR less than 15 ml/min Coronary artery disease Dialysis patient Duodenal ulcer ESRD (end stage renal disease) on dialysis Essential hypertension Former smoker Hepatic cyst History of atrial fibrillation History of DVT (deep vein thrombosis) History of echocardiogram (~06/30/22) History of GI bleed History of pulmonary embolism History of solitary pulmonary nodule History of stress test (~05/03/22) HIT (heparin-induced thrombocytopenia) HLD (hyperlipidemia) Hyperparathyroidism Iron deficiency anemia Kidney disease Left upper chest discomfort Loss of hearing Low iron Lower gastrointestinal bleeding Lymphoma Paroxysmal A-fib Preop cardiovascular exam Pulmonary embolism Renal calculus Sleep apnea VTE (venous thromboembolism) Wears dentures Wears glasses Wears partial dentures Wide-complex tachycardia Home Medications vitamin B complex 1 tab PO DAILY SUPPLEMENT 07/02/20 [History Last Taken 02/28/23 11:00] sucroferric oxyhydroxide 500 mg chewable tablet (Velphoro) 500 mg PO TIDCM anemia 03/01/23 [History Last Taken Unknown] apixaban 2.5 mg tablet (Eliquis) 2.5 mg PO BID blood thinner 04/04/23 [History Last Taken 05/15/23] budesonide 3 mg capsule,delayed,extended release 9 mg PO DAILY stomach 06/16/23 [History Last Taken Unknown] vitamin B complex-vitamin C-folic acid 0.8 mg tablet (Bibiana-Leoncio) 1 tab PO DAILY supplement 06/16/23 [History Last Taken Unknown] clopidogrel 75 mg tablet 75 mg PO DAILY #0 tabs 06/18/23 [Rx Last Taken Unknown] midodrine 5 mg tablet 5 mg PO TUTHSA 07/28/23 [History Last Taken Unknown] albuterol sulfate 0.63 mg/3 mL solution for nebulization 0.63 mg (3 mL) inhalation Q4H PRN bronchospasm #75 mL 08/27/23 [Rx Last Taken Unknown] amiodarone 200 mg tablet 200 mg PO DAILY heart rate 08/31/23 [History Last Taken Unknown] atorvastatin 20 mg tablet 20 mg PO QHS CHOLESTEROL 08/31/23 [History Last Taken Unknown] bisacodyl 10 mg rectal suppository 10 mg SD QHS PRN constipation 08/31/23 [History Last Taken Unknown] carvedilol 3.125 mg tablet 3.125 mg PO BID HIGH BLOOD PRESSURE 08/31/23 [History Last Taken Unknown] levofloxacin 750 mg tablet 750 mg PO DAILY 08/31/23 [History Last Taken Unknown] magnesium hydroxide 400 mg/5 mL oral suspension (Milk of Magnesia) 30 ml PO DAILY PRN constipation 08/31/23 [History Last Taken Unknown] mineral oil (Fleet Mineral Oil enema) 118 ml SD DAILY PRN constipation 08/31/23 [History Last Taken Unknown] pantoprazole 40 mg tablet,delayed release 40 mg PO BID reflux 08/31/23 [History Last Taken Unknown] polyethylene glycol 3350 17 gram/dose oral powder (ClearLax) 17 g PO DAILY PRN constipation 08/31/23 [History Last Taken Unknown] sucralfate 1 gram tablet 1 g PO 4X/DAY reflux 08/31/23 [History Last Taken Unknown] Allergy/AdvReac Type Severity Reaction Status Date / Time Iodinated Contrast Media Allergy Intermediate KIDNEY Verified 08/31/23 11:38 FAILURE enoxaparin [From Lovenox] Allergy Other Verified 08/31/23 11:38 heparin Allergy Other Verified 08/31/23 11:38 aspirin AdvReac Other Verified 08/31/23 11:38 Family History Father Cancer lung Arrhythmia Brother Cancer Mother Dementia Surgical History AV fistula H/O total cystectomy History of bladder surgery History of cataract extraction History of corrected cleft lip and palate History of foot surgery History of tonsillectomy S/P peripheral artery angioplasty with stent placement Social History household members: none Smoking Status: Former smoker how long ago did patient quit smoking: Started age 7, stopped at 17, started again 22-2 ppd until quit 2008 alcohol intake: never substance use type: does not use caffeine: No ROS Constitutional Constitutional: Reports weakness; Denies chills or fever(s) Cardiovascular Cardiovascular: Reports edema; Denies chest pain Respiratory/Chest Respiratory/Chest: Denies dry cough Gastrointestinal Gastrointestinal: Reports abdominal pain and melena; Denies anorexia, diarrhea, hematochezia, nausea or vomiting Neurologic Neurologic: Reports weakness Endocrine Endocrinology: Reports fatigue Hematologic/Lymphatic Hematologic/Lymphatic: Reports easy bruising Physical Exam Const alert and oriented x3 General Appearance: well developed Cardio Rhythm: abnormal rhythm irregularly irregular GI non-distended GI Narrative: tender LLQ to deep palpation Auscultation: normoactive bowel sounds Extremity no clubbing, cyanosis or edema Extremity Narrative: ecchymosis RUE over fistula, hx hematoma during recent hospitalization at [facility] Extremity: AV fistula Skin General Skin Exam: ecchymosis Neuro CN's II-XII intact bilaterally Psych cooperative Lab / Micro Data 09/01/23 10:05 09/01/23 10:05 Labs: Laboratory Results - last 24 hr 08/31/23 12:15: WBC 10.4, RBC 2.16 L, Hgb 6.1 L, Hct 20.5 L, MCV 94.9 H, MCH 28.2, MCHC 29.8 L, RDW Std Deviation 71.2 H, RDW Coeff of Lencho 20.7 H, Plt Count 142 L, MPV 10.6, Immature Gran % (Auto) 0.400, Neut % (Auto) 90.6 H, Lymph % (Auto) 3.6 L, [place] % (Auto) 5.1, Eos % (Auto) 0.2, Baso % (Auto) 0.1, Absolute Neuts (auto) 9.4 H, Absolute Lymphs (auto) 0.37 L, Nucleated RBC % 0, Differential Comment COMMENT, Anisocytosis 1+, Sodium 141, Potassium 4.6, Chloride 103, Carbon Dioxide 34.0 H, Anion Gap 4 L, BUN 70 H, Creatinine 6.05 H, Estim Creat Clear Calc 11.51, Est GFR (MDRD) Af Amer 12 L, Est GFR (MDRD) Non-Af 10 L, BUN/Creatinine Ratio 11.6, Glucose 202 H, Calcium 8.2 L, Blood Type O POSITIVE, Antibody Screen NEGATIVE, Crossmatch See Detail 08/31/23 12:15: Crossmatch See Detail 08/31/23 23:05: Hgb 7.9 L, Hct 25.5 L 09/01/23 10:05: WBC 9.7, RBC 2.71 L, Hgb 7.6 L, Hct 25.0 L, MCV 92.3, MCH 28.0, MCHC 30.4 L, RDW Std Deviation 65.9 H, RDW Coeff of Lencho 19.7 H, Plt Count 140 L, MPV 10.1, Immature Gran % (Auto) 0.900, Neut % (Auto) 89.4 H, Lymph % (Auto) 4.1 L, [place] % (Auto) 5.2, Eos % (Auto) 0.2, Baso % (Auto) 0.2, Absolute Neuts (auto) 8.6 H, Absolute Lymphs (auto) 0.40 L, Nucleated RBC % 0, Platelet Estimate ADEQUATE, Polychromasia 1+, Anisocytosis 2+, Macrocytosis 2+, Ovalocytes 2+, Sodium 140, Potassium 5.1, Chloride 102, Carbon Dioxide 32.0, Anion Gap 6, BUN 91 H, Creatinine 7.62 H*, Estim Creat Clear Calc 9.14, Est GFR (MDRD) Af Amer 9 L, Est GFR (MDRD) Non-Af 7 L, BUN/Creatinine Ratio 11.9, Glucose 170 H, Calcium 8.3 L Micro: Microbiology 08/31/23 18:25 Stool Stool Occult Blood (ROSEMARY) - Final Occult Blood Positive Imaging Radiology Impression Abdomen/Pelvis CTA 08/31/23 19:52 IMPRESSION: 1. Atherosclerosis of the aorta with similar appearance of chronic distal aortic dissection and overall mild ectasia measuring up to approximately 3 cm in diameter. The false lumen is mostly thrombosed. 2. Paraseptal and centrilobular emphysematous changes. NOTE: Emphysema on CT is an independent risk factor for lung cancer. Consider low dose CT for lung cancer screening between the ages of 50 and 77. 3. 1.9 cm right adrenal nodule with low attenuation and 1.7 cm left adrenal nodule with low attenuation. These are most likely adenomas. ACR White Paper guidelines (Farmer-Bueno, et al. JACR 2017; 14(8):3622-1112) suggest no imaging follow-up is necessary. ACR White Paper guidelines (Farmer-Bueno, et al. JACR 2017; 14(8):6788-3962) suggest no imaging follow-up is necessary. Consider biochemical assays to determine functional status and exclude pheochromocytoma if biopsy/resection is planned. 4. Severe right-sided hydroureteronephrosis associated with multifocal intracerebral linear filling defects and apparent mid to distal ureteral stricture. This is similar to the prior examination. Ureteral filling defect may be secondary to prior intervention/stenting. 5. 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 6. Moderate bilateral renal artery stenosis proximally. 7. Mild cardiomegaly without pericardial effusion. 8. Trace right pleural effusion and right posterior lower lobe airspace disease which may be atelectasis or pneumonia. Minimal left basilar airspace disease which also may be atelectasis or pneumonia. 9. No definite intraluminal extravasation of contrast to indicate location of presumptive gastrointestinal bleed. 10. Sludge and/or stones within the gallbladder lumen. No secondary signs of cholecystitis. 11. IVC filter is present. Recommend determining if there is a management place in place for this IVC filter. If not, then recommend referral to an interventional radiologist on a nonemergent basis for evaluation. 12. Colonic diverticulosis without discrete evidence of acute diverticulitis. Electronically Signed: Goran Langford DO at 20:23 EDT ,
[2023-09-01] MEDS: Epoetin Alfa epbx 10,000 UNITS/ML 10000 UNIT IV (13:40)
[2023-09-01] MEDS: Amiodarone 200 MG Tablet PO (14:29)
[2023-09-01] MEDS: Budesonide 3 MG CAPSULE.EC 9 MG PO (14:29)
[2023-09-01] MEDS: Pantoprazole Sodium 80 MG in 0.9% Normal Saline (50mL Bag) 15 ML 420 MG IV BOLUS (14:29)
[2023-09-01] MEDS: Pantoprazole Sodium 80 MG in 0.9% Normal Saline (100mL Bag) 80 ML 10 MG CONT INF ×2 (14:29→22:06)
--- NOTE | 2023-09-01 16:17 | NURSING ---
This nurse called [facility], still no bed available for transfer, but patient remains on wait list.
[2023-09-01] MEDS: Sucralfate 1 GM Tablet PO ×2 (16:28→22:06)
[2023-09-01] MEDS: Carvedilol 3.125 MG TABLET PO (16:29)
[2023-09-01 16:48] LABS: Hematocrit 26.4 % (40-54); Hemoglobin 8.2 g/dL (13.0-16.5)
[2023-09-01] MEDS: Atorvastatin Calcium 20 MG Tablet PO (22:06)
[2023-09-01] MEDS: levoFLOXacin 500 MG Tablet PO (22:06)
[2023-09-01 22:37] LABS: Hematocrit 27.4 % (40-54); Hemoglobin 8.3 g/dL (13.0-16.5)
[2023-09-02] VITALS (9 sets, daily range): BP systolic 92–124; BP diastolic 49–80; PULSE 60–88; RESP 14–18; TEMP 36.4–36.7; O2SAT 94–99; BMI 29.7
[2023-09-02 04:46] LABS: Absolute Lymphocyte Count 0.53 X10^3/uL (0.83-4.51); Basophil# 0.01 X10^3/uL; Basophil% 0.1 % (0-1); Eosinophil# 0.06 X10^3/uL; Eosinophils% 0.6 % (0-5); Hematocrit 24.8 % (40-54); Hemoglobin 7.6 g/dL (13.0-16.5); Lymphocyte # 0.53 X10^3/ul (0.83-4.51); Lymphocyte % 5.1 % (19-41); Mean Corp Hgb Conc 30.6 g/dL (32-36); Mean Corpuscular Hgb 28.7 pg (27.0-32.0); Mean Corpuscular Volume 93.6 fL (80-94); Mean Platelet Vol. 10.1 fl (6.2-12.0); Monocyte# 0.67 X10^3/uL; Monocyte% 6.4 % (0-10); NRBC Flagged by Analyzer 0.2 % (0-5); Neutrophil # 9.04 X10^3/uL (2.7-7.7); Neutrophil % 86.9 % (47-70); POSITIVE DIFFERENTIAL YES; POSITIVE MORPHOLOGY YES; Platelet Count 144 K/mm3 (150-450); RBC Distribution Width CV 19.9 % (11.6-14.6); RBC Distribution Width SD 67.1 fl (35.1-43.9); Red Blood Count 2.65 M/mm3 (4.6-6.2); White Blood Count 10.4 K/mm3 (4.4-11.0)
[2023-09-02 04:52] LABS: Differential Indicated SCAN CRITERIA MET
[2023-09-02 05:02] LABS: Anion Gap 7 (5-15); BUN 80 mg/dL (7-18); BUN/Creat Ratio 12.7 RATIO (10-20); Calcium,Total 8.7 mg/dL (8.5-10.1); Chloride 105 mmol/L (98-107); Creatinine, Serum 6.32 mg/dL (0.70-1.30); EST Glomerular Filtration Rate 9 mL/min (>60); Est Glom Filt Rate - Afr Amer 11 mL/min (>60); Estimated Creatinine Clearance 10.79 ml/min; Glucose 127 mg/dL (74-106); Potassium 4.9 mmol/L (3.5-5.1); Sodium Level 141 mmol/L (136-145)
[2023-09-02 05:19] LABS: Differential Comment SCANNED; Neutrophil-Band 10.4 % (0-5); Toxic Granulation 10.4
[2023-09-02 05:20] LABS: Anisocytosis 3+
[2023-09-02] MEDS: Sucralfate 1 GM Tablet PO ×4 (06:35→22:21)
[2023-09-02] MEDS: Budesonide 3 MG CAPSULE.EC 9 MG PO (07:57)
[2023-09-02] MEDS: Amiodarone 200 MG Tablet PO (07:57)
[2023-09-02] MEDS: Folic Acid/Vitamin B Comp W-C 1 Capsule 1 CAP PO (07:57)
[2023-09-02] MEDS: Carvedilol 3.125 MG TABLET PO ×2 (07:57→17:29)
[2023-09-02] MEDS: Vitamin B Comp W-C Capsule 1 CAP PO (07:57)
--- NOTE | 2023-09-02 11:30 | CASEMGMT ---
Discharge Planning Updates sent via [facility] to [facility]. Also notified them that patient is awaiting transfer to [facility] and requested that advanced directives be faxed. Na Gordon, Discharge Planning Asst.
[2023-09-02] MEDS: Pantoprazole Sodium 80 MG in 0.9% Normal Saline (100mL Bag) 80 ML 10 MG CONT INF (13:52)
--- NOTE | 2023-09-02 14:19 | CASEMGMT ---
Social Work SW met with pt to validate advance directives. Pt states he has completed living will and HCPOA naming his son Paul Rizvi. SW reached out to [facility] and they do not have copies of documents. SW requested to pt that documents be brought in for scanning into medical record. Pt frustrated with SW stating that his word that son is HCPOA is good and documents do not need brought in. KACI Rios
--- NOTE | 2023-09-02 15:29 | CHAPLAIN ---
Type of Pastoral Visit _x__ Initial Visit ___ Follow-up Visit ___ On-call Visit ___ General Patient Visit ___ Spiritual Assessment ___ Family Conference ___ Bereavement ___ Rapid Response ___ Code Blue ___ Other (describe below) Pastoral Care Referral From _x__ Patient ___ Family ___ Nurse ___ Physician ___ Lamp Developer ___ Administrative Office Manager ___ Other (describe below) Sacrament/Intervention _x__ Active listening ___ Anointing ___ Adventist ___ Bereavement ___ Communion _x__ Klarissa exploration ___ _x__ Life review _x__ Prayer ___ Reconciliation ___ Sacrament of Sick _x__ Supportive presence ___ Wedding ___ Other (describe below) Pastoral Comments patient is waiting for transfer to another hospital; pt has been in different hospital recently and admits to frustration over length of stays and long period of waiting; pt admits to concern about his health issue and not having answers for it yet; pt identifies self as a believer and that klarissa in God is what allows him to cope and face difficulty; pt wants to live for his family but accepts the plan of God who knows best ; pt welcomes prayer and expresses thanks for the spiritual care given
--- NOTE | 2023-09-02 16:29 | PCM.PN.HOSP ---
Reason for Visit Reason for Visit: Abnormal labs Subjective Subjective Patient states he is just fatigued today. Had dialysis yesterday. States he did not sleep well. Hemoglobin has dropped some so we will give 1 unit packed red blood cells. Objective Data Objective Data Vital Signs: Vital Signs Temp Pulse Resp BP Pulse Ox O2 Del Method O2 Flow Rate 97.9 F 71 14 119/62 99 Nasal Cannula 2 09/02/23 12:10 09/02/23 12:10 09/02/23 12:10 09/02/23 12:10 09/02/23 12:10 09/02/23 12:10 09/02/23 12:10 Oxygen Flow Rate (L/min) 2 Oxygen Delivery Method Nasal Cannula Weight: 91.172 kg Body Mass Index (BMI) 29.7 Intake & Output: Intake and Output for Last 24 Hours 08/31/23 09/01/23 09/02/23 23:59 23:59 23:59 Intake Total 411.17 / 411.17 101 / 101 Output Total 2400 / 2400 Balance - / - 101 / 101 Lab / Micro Data 09/02/23 04:22 09/02/23 04:22 Labs: Laboratory Results - last 24 hr 08/31/23 12:15: Crossmatch See Detail 09/01/23 16:24: Hgb 8.2 L, Hct 26.4 L 09/01/23 22:20: Hgb 8.3 L, Hct 27.4 L 09/02/23 04:22: WBC 10.4, RBC 2.65 L, Hgb 7.6 L, Hct 24.8 L, MCV 93.6, MCH 28.7, MCHC 30.6 L, RDW Std Deviation 67.1 H, RDW Coeff of Lencho 19.9 H, Plt Count 144 L, MPV 10.1, Immature Gran % (Auto) 0.900, Neut % (Auto) 86.9 H, Lymph % (Auto) 5.1 L, Hickman % (Auto) 6.4, Eos % (Auto) 0.6, Baso % (Auto) 0.1, Absolute Neuts (auto) 9.0 H, Absolute Lymphs (auto) 0.53 L, Band Neutrophils % 10.4 H, Nucleated RBC % 0.2, Differential Comment SCANNED, Toxic Granulation 10.4, Anisocytosis 3+, Sodium 141, Potassium 4.9, Chloride 105, Carbon Dioxide 29.0, Anion Gap 7, BUN 80 H, Creatinine 6.32 H, Estim Creat Clear Calc 10.79, Est GFR (MDRD) Af Amer 11 L, Est GFR (MDRD) Non-Af 9 L, BUN/Creatinine Ratio 12.7, Glucose 127 H, Calcium 8.7 Micro: Microbiology 08/31/23 18:25 Stool Stool Occult Blood (ROSEMARY) - Final Occult Blood Positive Physical Exam Const alert, oriented x3, no apparent distress and well nourished; Negative for average body habitus or healthy appearing Constitutional Narrative: Older, obese, white male, lying in bed napping but awakens easily, currently appears comfortable, very pleasant, interacts appropriately, appears chronically ill General Appearance: cooperative HEENT normocephalic, head/scalp atraumatic and moist oral mucous membranes Resp normal respiratory effort, no retractions, no use of accessory muscles and clear to auscultation bilaterally Resp Narrative: Mildly diminished diffusely at bases greater than apices but no adventitious sounds noted Auscultation: Negative for rales, rhonchi or wheezes Cardio regular rate, regular rhythm, S1 normal heart sound, S2 normal heart sound, no rub, no gallops and no clicks Cardio Narrative: 3 out of 6 systolic murmur GI normal to inspection, nondistended, normoactive bowel sounds and soft to palpation Extremity no clubbing, cyanosis or edema Neuro oriented x3, moves all extremities and no focal motor deficits Neuro Narrative: Patient has fairly significant generalized weakness that is more extensive in the proximal musculature than distal Speech: speech normal Psych affect normal Psych Narrative: Eye contact is good and patient is appropriate Assessment & Plan Assessment/Plan (1) Anemia: (2) Chronic anticoagulation: (3) Community acquired pneumonia: (4) GI bleed: PLAN: Acute on chronic anemia secondary to GI bleed -Patient with history of GI bleed-most of which had been an upper source -Baseline hemoglobin is unclear as he has had significant fluctuation due to the fact that he has multiple GI bleeds, however it appears that in between his bleeding he has been running anywhere from 7.5-8.5 -6.1 on presentation and 7.9 status post 2 units of packed red blood cells -Trended up to 8.2 but now down to 7.6 so 1 unit of packed red blood cells given again today -Recommendation from GI was transferred to tertiary center for IR evaluation -Patient has been accepted at [facility] however no bed availability at this time so we will admit until bed becomes available -Repeat hemoglobin after transfusion is pending -Hold Plavix and Eliquis for now -Protonix drip -Continue home Carafate -Continue diet for now -GI consultation--> Dr. Garay notified--> awaiting input -Recheck CBC in a.m. Community-acquired pneumonia -Patient was recently seen emergency department and diagnosed with commune acquired pneumonia -Has 1 more days of antibiotics -Will dose at 500 mg every other day and give after dialysis on dialysis days -Antibiotic should be complete on Tuesday End-stage renal disease-HD dependent -Right upper extremity fistula has a positive thrill and bruit -Continue home medications for his chronic renal disease -Patient typically is dialyzed on Tuesday, , and Tuesday -Continue midodrine with dialysis -Consultation to nephrology for dialysis--> Dr. Sonia He was notified Recent left toe amputation -Follows with Dr. Hill -Will have wound care follow while he is hospitalized Mild thrombocytopenia -This fluctuates -Likely consumptive -Will continue to follow GERD/history of peptic ulcer disease/gastric varices -See above Chronic anemia secondary to chronic renal disease -See above Paroxysmal A. fib with RVR with history of wide-complex tachycardia -Continue home carvedilol -Continue amiodarone -Continue to monitor -Hold Eliquis due to the above HTN/HPL -Continue home atorvastatin -Continue home carvedilol History of DVT -Hold Eliquis -Patient does have IVC filter in place and needs outpatient follow-up for this -Would recommend follow-up with Dr. Miramontes in the future Chronic aortic dissection -Stable on current CT -Outpatient follow-up JENNIFER -Patient is not compliant with CPAP DVT prophylaxis -SCDs -Chemoprophylaxis contraindicated due to GI bleeding CODE STATUS - full code is verified on admission Charges/Coding Visit Charges Inpatient E&M: 21453 Subs Hosp L2
[2023-09-02 17:57] LABS: Hematocrit 30.7 % (40-54); Hemoglobin 9.3 g/dL (13.0-16.5)
[2023-09-02] MEDS: Atorvastatin Calcium 20 MG Tablet PO (22:21)
[2023-09-03] VITALS (13 sets, daily range): BP systolic 94–251; BP diastolic 50–70; PULSE 66–79; RESP 15–18; TEMP 36.1–36.7; O2SAT 93–100; BMI 29.5
[2023-09-03] MEDS: Pantoprazole Sodium 80 MG in 0.9% Normal Saline (100mL Bag) 80 ML 10 MG CONT INF ×2 (00:39→14:03)
[2023-09-03] MEDS: Albuterol 2.5 MG/3 ML VIAL.NEB. INHALATION ×2 (02:31→08:31)
[2023-09-03] MEDS: Sucralfate 1 GM Tablet PO ×2 (06:23→15:30)
[2023-09-03] MEDS: levoFLOXacin 500 MG Tablet PO (06:23)
[2023-09-03 07:50] LABS: Absolute Lymphocyte Count 0.61 X10^3/uL (0.83-4.51); Absolute Neutrophil Count 7.8 X10^3/uL (2.0-7.7); Basophil# 0.01 X10^3/uL; Basophil% 0.1 % (0-1); Eosinophil# 0.11 X10^3/uL; Eosinophils% 1.2 % (0-5); Hematocrit 29.3 % (40-54); Hemoglobin 9.2 g/dL (13.0-16.5); Lymphocyte # 0.61 X10^3/ul (0.83-4.51); Lymphocyte % 6.6 % (19-41); Mean Corp Hgb Conc 31.4 g/dL (32-36); Mean Corpuscular Hgb 29.3 pg (27.0-32.0); Mean Corpuscular Volume 93.3 fL (80-94); Mean Platelet Vol. 10.3 fl (6.2-12.0); Monocyte# 0.66 X10^3/uL; Monocyte% 7.2 % (0-10); NRBC Flagged by Analyzer 0.3 % (0-5); Neutrophil # 7.78 X10^3/uL (2.7-7.7); Neutrophil % 84.2 % (47-70); POSITIVE MORPHOLOGY YES; Platelet Count 166 K/mm3 (150-450); RBC Distribution Width CV 20.6 % (11.6-14.6); RBC Distribution Width SD 67.7 fl (35.1-43.9); Red Blood Count 3.14 M/mm3 (4.6-6.2); White Blood Count 9.2 K/mm3 (4.4-11.0)
[2023-09-03 07:53] LABS: Differential Indicated SCAN CRITERIA MET
[2023-09-03] MEDS: Carvedilol 3.125 MG TABLET PO (08:00)
[2023-09-03] MEDS: Budesonide 3 MG CAPSULE.EC 9 MG PO (08:00)
[2023-09-03] MEDS: Amiodarone 200 MG Tablet PO (08:00)
[2023-09-03] MEDS: Folic Acid/Vitamin B Comp W-C 1 Capsule 1 CAP PO (08:00)
[2023-09-03] MEDS: Vitamin B Comp W-C Capsule 1 CAP PO (08:00)
[2023-09-03 08:29] LABS: Anion Gap 8 (5-15); BUN 105 mg/dL (7-18); Calcium,Total 8.9 mg/dL (8.5-10.1); Chloride 106 mmol/L (98-107); EST Glomerular Filtration Rate 7 mL/min (>60); Est Glom Filt Rate - Afr Amer 8 mL/min (>60); Estimated Creatinine Clearance 8.41 ml/min; Glucose 100 mg/dL (74-106); Potassium 5.2 mmol/L (3.5-5.1); Sodium Level 140 mmol/L (136-145)
[2023-09-03 09:07] LABS: Anisocytosis 2+
[2023-09-03] MEDS: 0.9% Normal Saline 1,000 ML IV.SOLN. 1000 ML OPERA.SITE (10:31)
[2023-09-03] MEDS: PureFlow B 2K Dialysis Soln 1 BAG 6 BAG PF (10:31)
[2023-09-03] MEDS: 0.9% Saline Lock 10 ML Syringe IV (14:04)
--- NOTE | 2023-09-03 18:33 | PCM.DC.SUM ---
Providers Date of Admission: 09/01/23 Date of Discharge: 09/03/23 Primary Care Physician: Dr. Martin Nunez, Consultations 09/01/23 10:38 Consult: Gastroenterology Routine Consulting Provider: Govind [facility] Reason for Consult: GIB EMERGENT Consult: No Notified: Yes Date Notified: 09/01/23 Time Notified: 07:55 Method of Notification: Text Consult: Nephrology Routine Consulting Provider: Sonia He Reason for Consult: ESRD EMERGENT Consult: No Notified: Yes Date Notified: 09/01/23 Time Notified: 07:55 Method of Notification: Text Consult: Onc/Wound/cardiology teacher Routine Comment: Reason for Consult:: L Foot Comments:: Sees [place] Reason For Visit: ACUTE BLOOD LOSS ANEMIA 2/2 GIB Diagnosis Discharge Diagnosis (1) Anemia: Status: Acute Code(s): D64.9 - Anemia, unspecified (2) Chronic anticoagulation: Status: Acute Code(s): Z79.01 - intermediate card tender (current) use of anticoagulants (3) Community acquired pneumonia: Status: Inactive Code(s): J18.9 - Pneumonia, unspecified organism (4) GI bleed: Status: Acute Code(s): K92.2 - Gastrointestinal hemorrhage, unspecified Plan 1. Acute on chronic anemia secondary to acute GI bleed #2 community-acquired pneumonia-present on admission #3 end-stage renal disease with chronic dialysis #4 paroxysmal A-fib #5 essential hypertension #6 hyperlipidemia #7 anemia of chronic renal disease Medications at Discharge Home Medications vitamin B complex 1 tab PO DAILY SUPPLEMENT 07/02/20 sucroferric oxyhydroxide 500 mg chewable tablet (Velphoro) 500 mg PO TIDCM anemia 03/01/23 apixaban 2.5 mg tablet (Eliquis) 2.5 mg PO BID blood thinner 04/04/23 budesonide 3 mg capsule,delayed,extended release 9 mg PO DAILY stomach 06/16/23 vitamin B complex-vitamin C-folic acid 0.8 mg tablet (Bibiana-Leoncio) 1 tab PO DAILY supplement 06/16/23 clopidogrel 75 mg tablet 75 mg PO DAILY #0 tabs 06/18/23 midodrine 5 mg tablet 5 mg PO TUTHSA 07/28/23 albuterol sulfate 0.63 mg/3 mL solution for nebulization 0.63 mg (3 mL) inhalation Q4H PRN bronchospasm #75 mL 08/27/23 amiodarone 200 mg tablet 200 mg PO DAILY heart rate 08/31/23 atorvastatin 20 mg tablet 20 mg PO QHS CHOLESTEROL 08/31/23 bisacodyl 10 mg rectal suppository 10 mg CA QHS PRN constipation 08/31/23 carvedilol 3.125 mg tablet 3.125 mg PO BID HIGH BLOOD PRESSURE 08/31/23 levofloxacin 750 mg tablet 750 mg PO DAILY 08/31/23 magnesium hydroxide 400 mg/5 mL oral suspension (Milk of Magnesia) 30 ml PO DAILY PRN constipation 08/31/23 mineral oil (Fleet Mineral Oil enema) 118 ml CA DAILY PRN constipation 08/31/23 pantoprazole 40 mg tablet,delayed release 40 mg PO BID reflux 08/31/23 polyethylene glycol 3350 17 gram/dose oral powder (ClearLax) 17 g PO DAILY PRN constipation 08/31/23 sucralfate 1 gram tablet 1 g PO 4X/DAY reflux 08/31/23 Hospital Course Operations None Procedures Blood transfusion and Dialysis Summary of Care Provided Minutes Spent on Discharge: 31 Hospital Course: This 78-year-old white male presented to the emergency department [facility] due to abnormal labs that were obtained at a detention facility where the patient currently resides. Patient had been taken off Eliquis which he had been taking due to paroxysmal A-fib, due to GI bleeding. Patient had recently been noted to have a hemoglobin of 6.8 and was given 1 unit of packed red blood cells. Lab obtained in the emergency room showed the patient's hemoglobin to be 6.1, chemistry profile showed a BUN of 70 and a creatinine of 6. Glucose was 202. Gastroenterology service was contacted, they recommended transferring the patient to a tertiary facility for interventional radiology evaluation and possible embolization of GI bleed. Patient was excepted at [facility] but no bed was available, patient was admitted to [place] [address], his Plavix and Eliquis was held, he was placed on a Protonix drip and his Carafate was continued. He had been placed on outpatient antibiotics due to pneumonia, this was continued during his hospitalization. Patient was seen by nephrology and underwent dialysis. Patient was transfused a total of 3 units of packed red blood cells during his hospital stay, there is no acute rectal bleeding noted during his hospitalization. On 09/03/2023, patient was seen and examined: On examination he appeared in good health and spirits. Vital signs as documented. Skin warm and dry and without overt rashes. Neck without JVD, neck was supple, trachea midline, thyroid was normal. Lungs clear bilaterally, normal air movement was noted. Heart exam notable for regular rhythm, normal sounds and absence of murmurs, rubs or gallops. Abdomen unremarkable and without evidence of organomegaly, masses, or abdominal aortic enlargement. Bowel sounds are present, abdomen is not distended. Extremities nonedematous, no cyanosis was noted, no clubbing was noted. Neuro: Cranial nerves II through XII are grossly intact, no focal motor deficits were noted, sensation to light touch and pinprick intact, motor exam 5/5 throughout. Psych: Patient is alert and oriented x3, he does not appear anxious or depressed, he does not appear agitated. Patient was transferred to [facility] for further treatment on 09/03/2023 in stable condition. Weight / BMI Weight Weight: 90.3 kg Body Mass Index (BMI) 29.5 ABG / Lab / Microbiology Data 09/03/23 07:21 09/03/23 07:21 Laboratory: Laboratory Results - last 24 hr 09/03/23 07:21: WBC 9.2, RBC 3.14 L, Hgb 9.2 L, Hct 29.3 L, MCV 93.3, MCH 29.3, MCHC 31.4 L, RDW Std Deviation 67.7 H, RDW Coeff of Lencho 20.6 H, Plt Count 166, MPV 10.3, Immature Gran % (Auto) 0.700, Neut % (Auto) 84.2 H, Lymph % (Auto) 6.6 L, [place] % (Auto) 7.2, Eos % (Auto) 1.2, Baso % (Auto) 0.1, Absolute Neuts (auto) 7.8 H, Absolute Lymphs (auto) 0.61 L, Nucleated RBC % 0.3, Anisocytosis 2+, Sodium 140, Potassium 5.2 H, Chloride 106, Carbon Dioxide 26.0, Anion Gap 8, BUN 105 H*, Creatinine 8.10 H*, Estim Creat Clear Calc 8.41, Est GFR (MDRD) Af Amer 8 L, Est GFR (MDRD) Non-Af 7 L, BUN/Creatinine Ratio 13.0, Glucose 100, Calcium 8.9 Microbiology: Microbiology 08/31/23 18:25 Stool Stool Occult Blood (ROSEMARY) - Final Occult Blood Positive Meaningful Use Info Meaningful Use Diagnoses (Choose all that apply): None applicable Discharge Plan Admission Admit Date/Time: 09/01/23 07:52 Attending Provider: River Mejia Primary Care Provider: Martin Nunez Consulting Providers: Sonia He; Ban He Discharge Orders/Prescriptions Prescriptions: No Action Eliquis 2.5 mg tablet 2.5 mg PO BID Hold Instructions: Hold for 5 days. vitamin B complex 1 EACH tablet 1 tab PO DAILY Velphoro 500 mg tablet,chewable 500 mg PO TIDCM budesonide 3 mg capsule,delayed,extend.release 9 mg PO DAILY Bibiana-Leoncio 0.8 mg tablet 1 tab PO DAILY clopidogrel 75 mg Tablet 75 mg PO DAILY Qty: 0 0RF midodrine 5 mg tablet 5 mg PO TUTHSA Rx Instructions: GIVE PRIOR TO DIALYSIS atorvastatin 20 mg tablet 20 mg PO QHS bisacodyl 10 mg suppository 10 mg CA QHS PRN (Reason: constipation) carvedilol 3.125 mg tablet 3.125 mg PO BID mineral oil [Fleet Mineral Oil] Enema 118 ml CA DAILY PRN (Reason: constipation) Rx Instructions: USE IF NO BM 8 HOURS AFTER BISACODYL SUPPOSITORY. IF NO BM WITHIN 1 HOUR OF ENEMA, NOTIFY MD. magnesium hydroxide [Milk of Magnesia] 400 mg/5 mL suspension 30 ml PO DAILY PRN (Reason: constipation) Rx Instructions: ADMINISTER ONCE DAILY IF NO BM IN 3 DAYS polyethylene glycol 3350 [ClearLax] 17 gram/dose powder 17 g PO DAILY PRN (Reason: constipation) amiodarone 200 mg tablet 200 mg PO DAILY sucralfate 1 gram Tablet 1 g PO 4X/DAY Rx Instructions: GIVE 1 TABLET BY MOUTH BEFORE MEAL AND AT BEDTIME pantoprazole 40 mg Tablet,Delayed Release (Dr/Ec) 40 mg PO BID levofloxacin 750 mg tablet 750 mg PO DAILY Rx Instructions: START- 08/28/2023, END - 09/01/2023 albuterol sulfate 0.63 mg/3 mL solution for nebulization 0.63 mg inhalation Q4H PRN (Reason: bronchospasm) Qty: 75 0RF Referrals / Follow Up: Martin Nunez DO [Primary Care Provider] - Disposition Disposition (needs filled in before D/C Order can be placed): Acute Care Hospital Charges/Coding Visit Charges Inpatient E&M: 79602 Disch Hosp >30min
== END 2023-09-03 19:15 | disposition short-term general hospital (02) | DRG 377 ==
LOC: ED 09-01 08:02 → MS3 09-01 08:17
PROVIDERS: Emergency Medicine; Admitting Provider Internal Medicine; Emergency Provider Emergency Medicine; PCP Student in an Organized Health Care Education/Training Program; Visit Provider Internal Medicine
DX: K92.1 Melena (principal); J18.9 Pneumonia, unspecified organism; I71.00 Dissection of unspecified site of aorta; N18.6 End stage renal disease; I12.0 Hypertensive chronic kidney disease with stage 5 chronic kidney disease or end stage renal disease; D62 Acute posthemorrhagic anemia; I47.19 Other supraventricular tachycardia; D63.1 Anemia in chronic kidney disease; I48.0 Paroxysmal atrial fibrillation; Z99.2 Dependence on renal dialysis; Z89.422 Acquired absence of other left toe(s); K21.9 Gastro-esophageal reflux disease without esophagitis; E78.5 Hyperlipidemia, unspecified; G47.33 Obstructive sleep apnea (adult) (pediatric); Z91.199 Patient's noncompliance with other medical treatment and regimen due to unspecified reason; Z79.01 Long term (current) use of anticoagulants; Z79.02 Long term (current) use of antithrombotics/antiplatelets; Z79.51 Long term (current) use of inhaled steroids; Z79.899 Other long term (current) drug therapy; Z87.19 Personal history of other diseases of the digestive system; Z86.718 Personal history of other venous thrombosis and embolism; Z87.891 Personal history of nicotine dependence
CPT/HCPCS: 36415; 74174; 80048; 82274; 85014; 85018; 85025; 86850; 86900; 86901; 86920; 86922; 90937; 94640; 94668; 97802; 99284; J7030; J7040; P9016; Q9967; A4216; G0257; J3490; Q5106

== ENCOUNTER 2023-09-13 14:31 | Inpatient (IN) | payer MEDICARE, BC, SELFPAY ==
[2023-09-13] VITALS (10 sets, daily range): BP systolic 91–117; BP diastolic 44–75; PULSE 66–79; RESP 18–22; TEMP 35.9–36.7; O2SAT 91–100; BMI 34.4; BMI 31.4
--- NOTE | 2023-09-13 15:21 | EX.ED.DYSGE1 ---
HPI History of Present Illness Chief Complaint: Abn Labs Informant: patient Onset/Context/Timing Onset: Today Context: Gradual Onset Timing: Continuous Quality: Weakness Location: Generalized Worsened by: Nothing Relieved by: Nothing Narrative Narrative: Patient presents with low hemoglobin and low platelets that were noticed today. Patient had lab work drawn at dialysis today. Patient was found to have a hemoglobin of 6.9. Platelets were 30. Patient states she has been feeling weak all over. Patient was recently admitted to [facility] for gastrointestinal bleeding. Patient states his bleeding was stopped while he was there. Patient states that after his hemoglobin stabilized, they restarted his Eliquis and Plavix. Patient admits to some mild lower abdominal pain. Patient denies any nausea or vomiting. Patient states he is unable to look at his stools to see if they are black. Patient admits to some generalized weakness. [facility] Medical History Anemia Anemia Anemia requiring transfusions Aortic root dilatation Arthritis Atrial fibrillation Bladder cancer Cancer Cardiology follow-up encounter (~04/04/23) CHF (congestive heart failure) Chronic anticoagulation CKD (chronic kidney disease) stage 5, GFR less than 15 ml/min Coronary artery disease Dialysis patient Duodenal ulcer ESRD (end stage renal disease) on dialysis ESRD (end stage renal disease) on dialysis Essential hypertension Former smoker GI bleed Hepatic cyst History of atrial fibrillation History of CHF (congestive heart failure) History of DVT (deep vein thrombosis) History of echocardiogram (~06/30/22) History of end stage renal disease History of GI bleed History of pulmonary embolism History of renal dialysis History of solitary pulmonary nodule History of stress test (~05/03/22) HIT (heparin-induced thrombocytopenia) HLD (hyperlipidemia) Hyperparathyroidism Iron deficiency anemia Kidney disease Left upper chest discomfort Loss of hearing Low iron Lower gastrointestinal bleeding Lymphoma Paroxysmal A-fib Preop cardiovascular exam Pulmonary embolism Renal calculus Sleep apnea VTE (venous thromboembolism) Wears dentures Wears glasses Wears partial dentures Wide-complex tachycardia Home Medications vitamin B complex 1 tab PO DAILY SUPPLEMENT 07/02/20 [History Last Taken 02/28/23 11:00] sucroferric oxyhydroxide 500 mg chewable tablet (Velphoro) 500 mg PO TIDCM anemia 03/01/23 [History Last Taken Unknown] apixaban 2.5 mg tablet (Eliquis) 2.5 mg PO BID blood thinner 04/04/23 [History Last Taken 05/15/23] budesonide 3 mg capsule,delayed,extended release 9 mg PO DAILY stomach 06/16/23 [History Last Taken Unknown] vitamin B complex-vitamin C-folic acid 0.8 mg tablet (Bibiana-Leoncio) 1 tab PO DAILY supplement 06/16/23 [History Last Taken Unknown] clopidogrel 75 mg tablet 75 mg PO DAILY #0 tabs 06/18/23 [Rx Last Taken Unknown] midodrine 5 mg tablet 5 mg PO TUTHSA 07/28/23 [History Last Taken Unknown] albuterol sulfate 0.63 mg/3 mL solution for nebulization 0.63 mg (3 mL) inhalation Q4H PRN bronchospasm #75 mL 08/27/23 [Rx Last Taken Unknown] amiodarone 200 mg tablet 200 mg PO DAILY heart rate 08/31/23 [History Last Taken Unknown] atorvastatin 20 mg tablet 20 mg PO QHS CHOLESTEROL 08/31/23 [History Last Taken Unknown] bisacodyl 10 mg rectal suppository 10 mg MA QHS PRN constipation 08/31/23 [History Last Taken Unknown] carvedilol 3.125 mg tablet 3.125 mg PO BID HIGH BLOOD PRESSURE 08/31/23 [History Last Taken Unknown] levofloxacin 750 mg tablet 750 mg PO DAILY 08/31/23 [History Last Taken Unknown] magnesium hydroxide 400 mg/5 mL oral suspension (Milk of Magnesia) 30 ml PO DAILY PRN constipation 08/31/23 [History Last Taken Unknown] mineral oil (Fleet Mineral Oil enema) 118 ml MA DAILY PRN constipation 08/31/23 [History Last Taken Unknown] pantoprazole 40 mg tablet,delayed release 40 mg PO BID reflux 08/31/23 [History Last Taken Unknown] polyethylene glycol 3350 17 gram/dose oral powder (ClearLax) 17 g PO DAILY PRN constipation 08/31/23 [History Last Taken Unknown] sucralfate 1 gram tablet 1 g PO 4X/DAY reflux 08/31/23 [History Last Taken Unknown] Allergy/AdvReac Type Severity Reaction Status Date / Time Iodinated Contrast Media Allergy Intermediate KIDNEY Verified 08/31/23 11:38 FAILURE enoxaparin [From Lovenox] Allergy Other Verified 08/31/23 11:38 heparin Allergy Other Verified 08/31/23 11:38 aspirin AdvReac Other Verified 08/31/23 11:38 Family History Father Cancer lung Arrhythmia Brother Cancer Mother Dementia Surgical History AV fistula H/O total cystectomy History of bladder surgery History of cataract extraction History of corrected cleft lip and palate History of foot surgery History of tonsillectomy S/P peripheral artery angioplasty with stent placement Social History household members: none Smoking Status: Former smoker how long ago did patient quit smoking: Started age 7, stopped at 17, started again 22-2 ppd until quit 2008 alcohol intake: never substance use type: does not use caffeine: No ROS ROS ED Constitutional Constitutional ED: Denies chills or fever(s) Eyes Eyes: Denies blurry vision or change in vision ENT ENT ED: Denies rhinorrhea or sore throat Cardiovascular Cardiovascular: Denies chest pain or palpitations Respiratory/Chest Respiratory/Chest: Denies cough or dyspnea Gastrointestinal Gastrointestinal: Reports abdominal pain; Denies nausea or vomiting Genitourinary Genitourinary ED: Denies dysuria or hematuria Musculoskeletal Musculoskeletal: Reports neck pain; Denies back pain Integumentary Denies abscess or rash Neurologic Neurologic: Reports weakness; Denies headache(s) Allergic/Immunologic Allergic/Immunologic ED: Denies mouth swelling or urticaria EXAM Physical Exam Const Vital Signs: 09/13/23 14:32 09/13/23 14:38 09/13/23 16:31 Temperature 96.7 F L Temperature Source Temporal Pulse Rate 78 76 Respiratory Rate 22 H 19 H Respiratory Pattern Normal Blood Pressure 91/55 L 99/47 L Blood Pressure Mean 67 64 Blood Pressure Source Blood Pressure Position Blood Pressure Location Pulse Ox 100 97 Oxygen Delivery Method Nasal Cannula Nasal Cannula Oxygen Flow Rate (L/min) 3 3 09/13/23 17:22 09/13/23 17:37 09/13/23 18:00 Temperature 97.0 F L 98.1 F Temperature Source Temporal Temporal Pulse Rate 79 77 73 Respiratory Rate 18 18 18 Respiratory Pattern Blood Pressure 97/44 L 105/51 L 101/58 L Blood Pressure Mean 61 69 72 Blood Pressure Source Monitor Blood Pressure Position Blood Pressure Location Pulse Ox 91 94 93 Oxygen Delivery Method Nasal Cannula Nasal Cannula Nasal Cannula Oxygen Flow Rate (L/min) 3 3 3 09/13/23 18:34 09/13/23 18:37 09/13/23 19:27 Temperature 97.1 F L 97.1 F L 97.1 F L Temperature Source Temporal Temporal Pulse Rate 74 74 66 Respiratory Rate 20 H 20 H 20 H Respiratory Pattern Blood Pressure 103/53 L 103/53 L 111/60 Blood Pressure Mean 69 69 77 Blood Pressure Source Monitor Monitor Blood Pressure Position Supine Supine Blood Pressure Location Left Arm Pulse Ox 100 100 100 Oxygen Delivery Method Room Air Nasal Cannula Oxygen Flow Rate (L/min) 3 Positive well nourished and well developed General Appearance ED: well developed and NAD HEENT Reports moist mucous membranes Neck supple and no JVD Resp normal respiratory effort and clear to auscultation bilaterally Cardio regular rate Rhythm: abnormal rhythm irregularly irregular GI non-distended Palpation: soft and tender LLQ and RLQ Rectal Exam: normal sphincter tone and heme positive stool Neuro oriented x3, CN's II-XII intact bilaterally and no sensory deficits noted Sensorium / Orientation: alert Motor Exam: strength 5/5 throughout Psych mental status grossly normal MDM MDM MDM Narrative Medical decision making narrative: Differential diagnosis includes gastrointestinal bleeding, anemia, thrombocytopenia, electrolyte abnormality, chronic kidney disease, cardiac dysrhythmia, and cardiac ischemia. CBC will be obtained to assess for leukocytosis and anemia. Comprehensive metabolic profile will be obtained to assess for hepatic function, renal function, and electrolyte abnormality. PT with INR and PTT will be obtained to assess for coagulopathy. Lab Data Attestation: I reviewed the patient's lab results. Lab results narrative: CBC was reviewed. Hemoglobin was 6.3 and hematocrit was 20.9. Platelets were low at 25. PT with INR and PTT were reviewed. Pro time was 20.6 and INR is 1.8. PTT was 45.3. Comprehensive metabolic profile was reviewed. BUN was 74 and creatinine was 5.6. These are consistent with prior results. The remainder is essentially within normal limits. Blood type was O+. Labs: Laboratory Results - last 24 hr 09/13/23 16:01 WBC 8.3 RBC 2.24 L Hgb 6.3 L Hct 20.9 L MCV 93.3 MCH 28.1 MCHC 30.1 L RDW Std Deviation 67.8 H RDW Coeff of Lencho 19.9 H Plt Count 25 L* MPV TNP Immature Gran % (Auto) 0.500 Neut % (Auto) 90.0 H Lymph % (Auto) 2.7 L [place] % (Auto) 6.7 Eos % (Auto) 0.0 Baso % (Auto) 0.1 Absolute Neuts (auto) 7.4 Absolute Lymphs (auto) 0.22 L Nucleated RBC % 0 Differential Comment SEE COMMENT Diff Path Review May foll Platelet Estimate MKD DEC RBC Morphology N CHROM Hypochromasia 1+ Anisocytosis RARE Macrocytosis RARE Ovalocytes RARE PT 20.6 H INR 1.8 APTT 45.3 H Sodium 140 Potassium 4.7 Chloride 103 Carbon Dioxide 30.0 Anion Gap 7 BUN 74 H Creatinine 5.60 H Estim Creat Clear Calc 12.84 Est GFR (MDRD) Af Amer 13 L Est GFR (MDRD) Non-Af 11 L BUN/Creatinine Ratio 13.2 Glucose 148 H Calcium 7.8 L Total Bilirubin 0.60 AST 10 L ALT 15 L Alkaline Phosphatase 65 Total Protein 4.7 L Albumin 2.1 L Globulin 2.6 Albumin/Globulin Ratio 0.8 L Blood Type O POSITIVE Antibody Screen NEGATIVE Crossmatch See Detail Management Discussion w/another healthcare provider: Hospitalist (Dr. Hoyt) and Radiology Orderly (Dr. Garay) Treatment and Re-Evaluation :: Patient will be transfused with a unit of blood. Case was discussed with Dr. Garay. He recommended obtaining a bleeding scan to try to determine the site of leading. This was ordered. I was informed that the bleeding scan would not be able to be performed until tomorrow. I discussed case with Dr. Garay. He will follow along with the patient in the hospital. Case was discussed with the hospitalist. He will admit the patient to his service. Patient understood and was agreeable with the plan. All questions were answered. Discharge Plan Dx/Rx/DC Orders Clinical Impression: Gastrointestinal bleeding, Anemia, Thrombocytopenia Disposition Disposition: Acute Care Hospital [facility]
[2023-09-13 16:12] LABS: Absolute Lymphocyte Count 0.22 X10^3/uL (0.83-4.51); Absolute Neutrophil Count 7.4 X10^3/uL (2.0-7.7); Basophil# 0.01 X10^3/uL; Basophil% 0.1 % (0-1); Hematocrit 20.9 % (40-54); Hemoglobin 6.3 g/dL (13.0-16.5); Lymphocyte # 0.22 X10^3/ul (0.83-4.51); Lymphocyte % 2.7 % (19-41); Mean Corp Hgb Conc 30.1 g/dL (32-36); Mean Corpuscular Hgb 28.1 pg (27.0-32.0); Mean Corpuscular Volume 93.3 fL (80-94); Monocyte# 0.55 X10^3/uL; Monocyte% 6.7 % (0-10); NRBC Flagged by Analyzer 0 % (0-5); Neutrophil # 7.44 X10^3/uL (2.7-7.7); POSITIVE COUNT YES; POSITIVE DIFFERENTIAL YES; POSITIVE MORPHOLOGY YES; RBC Distribution Width CV 19.9 % (11.6-14.6); RBC Distribution Width SD 67.8 fl (35.1-43.9); Red Blood Count 2.24 M/mm3 (4.6-6.2); White Blood Count 8.3 K/mm3 (4.4-11.0)
[2023-09-13 16:15] LABS: International Normalized Ratio 1.8; Prothrombin Time (Protime)PT. 20.6 SECONDS (11.7-14.9)
[2023-09-13 16:16] LABS: Partial Thromboplast Time 45.3 Seconds (24.1-36.2)
[2023-09-13 16:25] LABS: ALB/GLOB Ratio 0.8 RATIO (0.9-2.4); AST(SGOT) 10 U/L (15-37); Alanine Aminotransfer ALT/SGPT 15 U/L (16-61); Albumin, Serum 2.1 g/dL (3.2-5.0); Alkaline Phosphatase 65 U/L (45-117); Anion Gap 7 (5-15); BUN 74 mg/dL (7-18); BUN/Creat Ratio 13.2 RATIO (10-20); Calcium,Total 7.8 mg/dL (8.5-10.1); Chloride 103 mmol/L (98-107); EST Glomerular Filtration Rate 11 mL/min (>60); Est Glom Filt Rate - Afr Amer 13 mL/min (>60); Estimated Creatinine Clearance 12.84 ml/min; Globulin 2.6 g/dL (2.2-4.2); Glucose 148 mg/dL (74-106); Potassium 4.7 mmol/L (3.5-5.1); Protein, Total 4.7 g/dL (6.4-8.2); Sodium Level 140 mmol/L (136-145)
[2023-09-13 16:36] LABS: Differential Indicated SCAN CRITERIA MET; Platelet Count 25 K/mm3 (150-450)
[2023-09-13 16:39] LABS: Anisocytosis RARE; Hypochromasia 1+; Macrocytosis RARE; Ovalocyte RARE; Platelet Estimate MKD DEC (ADEQ); Red Cell Morphology N CHROM NORMAL (NORM C&C)
--- NOTE | 2023-09-13 19:20 | HP.PCM.HOS_ITS ---
[facility] Date of Admission: 09/13/23 Date of Service: 09/13/23 Chief Complaint: Progressively Worsening Generalized Weakness after Restarting Eliquis. [facility] Narrative RIA MARIANO, is a 78 M with a past medical history of essential hypertension, hyperlipidemia, obesity; with BMI of 34.5 this admission, end-stage renal disease on hemodialysis (Tuesday, , Tuesday) with patient anuric - followed by Dr. Sonia He of nephrology, chronic multifactorial anemia; on Epogen, history of DVT/PE, paroxysmal atrial fibrillation; on apixaban and amiodarone, history of wide-complex tachycardia, history of lymphoma, history of hyperparathyroidism, history of CHF, history of bladder cancer, history of peptic ulcer disease with associated blood loss requiring cauterization with patient still on sucralfate and pantoprazole and recent admission here from September 01, 2023 to September 03, 2023 for recurrent GI Bleed with CAP; culminating in him being transferred to [facility] after being treated with antibiotics and transfused 3 units of PRBC's who presents to [facility] ER complaining of progressively worsening generalized weakness after restarting Eliquis. Mr. Mariano reports he underwent hemodialysis earlier today with lab work drawn at that time which revealed a critically low hemoglobin of 6.9 g/dL and a platelet count of only 30 resulting in him being sent to the ER for urgent transfusion. The patient states that during his recent admission to [facility] his bleeding had stopped while he was there with traditional endoscopy not able to be done at that time so he underwent pill enteroscopy with results apparently still pending at this time. He admits to mild lower abdominal pain but denies fever, chills, nausea or vomiting. He also stated that he is unable to look at his stools to see if they are black or red so he is unsure about any recent bleeding. I review of his MAR shows he is on apixaban and Plavix - which are not felt to be 2 agents this patient cannot tolerate given his recurrent GI bleed with pattern of serial readmission. In the ER the patient was noted to have a hemoglobin of 6.3 g/dL and was ordered 1 unit of packed red blood cells for severe acute blood loss anemia requiring transfusion due to suspected adverse drug reaction to combination of apixaban and Plavix complicated by critical thrombocytopenia of 25 present on admission with the ER physician speaking to Dr. Garay of gastroenterology who recommended nuclear medicine GI bleeding scan which is pending at this time. The patient was then admitted to the PCU for ongoing care for stay that is expected to be greater than 48 hours. [facility] Medical History Anemia Anemia Anemia requiring transfusions Aortic root dilatation Arthritis Atrial fibrillation Bladder cancer Cancer Cardiology follow-up encounter (~04/04/23) CHF (congestive heart failure) Chronic anticoagulation CKD (chronic kidney disease) stage 5, GFR less than 15 ml/min Coronary artery disease Dialysis patient Duodenal ulcer ESRD (end stage renal disease) on dialysis ESRD (end stage renal disease) on dialysis Essential hypertension Former smoker GI bleed Hepatic cyst History of atrial fibrillation History of CHF (congestive heart failure) History of DVT (deep vein thrombosis) History of echocardiogram (~06/30/22) History of end stage renal disease History of GI bleed History of pulmonary embolism History of renal dialysis History of solitary pulmonary nodule History of stress test (~05/03/22) HIT (heparin-induced thrombocytopenia) HLD (hyperlipidemia) Hyperparathyroidism Iron deficiency anemia Kidney disease Left upper chest discomfort Loss of hearing Low iron Lower gastrointestinal bleeding Lymphoma Paroxysmal A-fib Preop cardiovascular exam Pulmonary embolism Renal calculus Sleep apnea VTE (venous thromboembolism) Wears dentures Wears glasses Wears partial dentures Wide-complex tachycardia Home Medications vitamin B complex 1 tab PO DAILY SUPPLEMENT 07/02/20 [History Last Taken 02/28/23 11:00] sucroferric oxyhydroxide 500 mg chewable tablet (Velphoro) 500 mg PO TIDCM anemia 03/01/23 [History Last Taken Unknown] apixaban 2.5 mg tablet (Eliquis) 2.5 mg PO BID blood thinner 04/04/23 [History Last Taken 05/15/23] budesonide 3 mg capsule,delayed,extended release 9 mg PO DAILY stomach 06/16/23 [History Last Taken Unknown] vitamin B complex-vitamin C-folic acid 0.8 mg tablet (Bibiana-Leoncio) 1 tab PO DAILY supplement 06/16/23 [History Last Taken Unknown] clopidogrel 75 mg tablet 75 mg PO DAILY #0 tabs 06/18/23 [Rx Last Taken Unknown] midodrine 5 mg tablet 5 mg PO TUTHSA 07/28/23 [History Last Taken Unknown] albuterol sulfate 0.63 mg/3 mL solution for nebulization 0.63 mg (3 mL) inhalation Q4H PRN bronchospasm #75 mL 08/27/23 [Rx Last Taken Unknown] amiodarone 200 mg tablet 200 mg PO DAILY heart rate 08/31/23 [History Last Taken Unknown] atorvastatin 20 mg tablet 20 mg PO QHS CHOLESTEROL 08/31/23 [History Last Taken Unknown] bisacodyl 10 mg rectal suppository 10 mg NE QHS PRN constipation 08/31/23 [History Last Taken Unknown] carvedilol 3.125 mg tablet 3.125 mg PO BID HIGH BLOOD PRESSURE 08/31/23 [History Last Taken Unknown] levofloxacin 750 mg tablet 750 mg PO DAILY 08/31/23 [History Last Taken Unknown] magnesium hydroxide 400 mg/5 mL oral suspension (Milk of Magnesia) 30 ml PO DAILY PRN constipation 08/31/23 [History Last Taken Unknown] mineral oil (Fleet Mineral Oil enema) 118 ml NE DAILY PRN constipation 08/31/23 [History Last Taken Unknown] pantoprazole 40 mg tablet,delayed release 40 mg PO BID reflux 08/31/23 [History Last Taken Unknown] polyethylene glycol 3350 17 gram/dose oral powder (ClearLax) 17 g PO DAILY PRN constipation 08/31/23 [History Last Taken Unknown] sucralfate 1 gram tablet 1 g PO 4X/DAY reflux 08/31/23 [History Last Taken Unknown] Allergy/AdvReac Type Severity Reaction Status Date / Time Iodinated Contrast Media Allergy Intermediate KIDNEY Verified 08/31/23 11:38 FAILURE enoxaparin [From Lovenox] Allergy Other Verified 08/31/23 11:38 heparin Allergy Other Verified 08/31/23 11:38 aspirin AdvReac Other Verified 08/31/23 11:38 Family History Father Cancer lung Arrhythmia Brother Cancer Mother Dementia Surgical History AV fistula H/O total cystectomy History of bladder surgery History of cataract extraction History of corrected cleft lip and palate History of foot surgery History of tonsillectomy S/P peripheral artery angioplasty with stent placement Social History household members: none Smoking Status: Former smoker how long ago did patient quit smoking: Started age 7, stopped at 17, started again 22-2 ppd until quit 2008 alcohol intake: never substance use type: does not use caffeine: No ROS ROS Narrative Review of systems: General: Patient denies fevers or chills. HENT: Denies headache, denies stuffy nose, denies sore throat EYES: Denies changes in vision or discharge from eyes. Resp: Denies cough, denies shortness of breath Cardiac: Denies chest pain or palpitations. GI: Patient admits to mild lower abdominal pain but denies changes in bowel, denies nausea or vomiting. : Denies changes in urination Extremity: Denies swelling Musculoskeletal: Feels somewhat generally weak and unwell. He also admits to neck pain but denies back pain. Neuro: Patient denies headache, paresthesias or focal neurologic weakness. Heme: Patient denies any gross bleeding or bruising because he is not checking his stools in spite of his complex medical history pattern of recurrent bleeding as per HPI. Skin: Denies rashes Psychiatric: No complaints voiced related to uncontrolled depression or anxiety. Endocrine: No polyuria, polydipsia or polyphagia. The rest of the 14 point ROS was negative except for positives in HPI. Vital Signs Vital Signs Vital Signs: 09/13/23 14:32 09/13/23 14:38 09/13/23 16:31 Temperature 96.7 F L Temperature Source Temporal Pulse Rate 78 76 Respiratory Rate 22 H 19 H Respiratory Pattern Normal Blood Pressure 91/55 L 99/47 L Blood Pressure Mean 67 64 Blood Pressure Source Blood Pressure Position Blood Pressure Location Pulse Ox 100 97 Oxygen Delivery Method Nasal Cannula Nasal Cannula Oxygen Flow Rate (L/min) 3 3 09/13/23 17:22 09/13/23 17:37 09/13/23 18:00 Temperature 97.0 F L 98.1 F Temperature Source Temporal Temporal Pulse Rate 79 77 73 Respiratory Rate 18 18 18 Respiratory Pattern Blood Pressure 97/44 L 105/51 L 101/58 L Blood Pressure Mean 61 69 72 Blood Pressure Source Monitor Blood Pressure Position Blood Pressure Location Pulse Ox 91 94 93 Oxygen Delivery Method Nasal Cannula Nasal Cannula Nasal Cannula Oxygen Flow Rate (L/min) 3 3 3 09/13/23 18:34 09/13/23 18:37 Temperature 97.1 F L 97.1 F L Temperature Source Temporal Temporal Pulse Rate 74 74 Respiratory Rate 20 H 20 H Respiratory Pattern Blood Pressure 103/53 L 103/53 L Blood Pressure Mean 69 69 Blood Pressure Source Monitor Monitor Blood Pressure Position Supine Supine Blood Pressure Location Left Arm Pulse Ox 100 100 Oxygen Delivery Method Room Air Nasal Cannula Oxygen Flow Rate (L/min) 3 Weight Weight: 226 lb 13.69 oz Body Mass Index (BMI) 34.4 Physical Exam Const alert, oriented x3, no apparent distress, average body habitus and healthy appearing General Appearance: cooperative HEENT normocephalic, head/scalp atraumatic, hearing grossly normal bilaterally and moist oral mucous membranes Eyes PERRL and EOMs intact bilaterally Neck no lymphadenopathy and supple Resp normal respiratory effort, no retractions, no use of accessory muscles and clear to auscultation bilaterally Cardio Cardio Narrative: Irregularly irregular. GI normal to inspection, nondistended, normoactive bowel sounds, soft to palpation and non-distended GI Narrative: Patient is tender to palpation in the lower abdomen. Extremity normal to inspection, full ROM and no clubbing, cyanosis or edema Skin Skin Narrative: Patient has no evidence of rash at this time. Neuro oriented x3, CN's II-XII intact bilaterally, moves all extremities and no focal motor deficits Sensorium / Orientation: awake, alert, oriented to person, oriented to place and oriented to time Speech: speech normal Motor Exam: strength 5/5 throughout Psych affect normal Results Medical Records Data Attestation: I reviewed the patient's medical records Lab / Micro Data Attestation: I reviewed the patient's lab results. Lab results narrative: RUN DATE: 09/14/23 [facility], DEPARTMENT OF LABORATORIES PAGE 1 RUN TIME: 0410 Specimen Inquiry [address] [place], [address] PATIENT: RIA MARIANO LOC: [facility] U #: [id number] : 1945 AGE/SX: 78/M FACILITY: [facility] ROOM: [facility] RE09/13/[address]: Pete Gillette STATUS:ADM IN ED: 1 DIS: ~ SPEC #: [id number] __ PERRY: 09/13/23-160 STATUS: COMP REQ #: [id number] SOURCE: Stool RECD: 09/13/23-[address]: Dr. Ed Bradley DO SPSESC: ENTR: 09/13/23-[address]: Dr. Martin Nunez DO ~ ORDERED: STOB iFOB Procedure Result Verified Stool Occult Blood iFOB Final 09/13/23-1613 Occult Blood Positive Organism 1 OCCULT BLOOD POSITIVE END OF REPORT 09/13/23 21:42 09/13/23 16:01 Labs: Laboratory Results - last 24 hr 09/13/23 16:01: WBC 8.3, RBC 2.24 L, Hgb 6.3 L, Hct 20.9 L, MCV 93.3, MCH 28.1, MCHC 30.1 L, RDW Std Deviation 67.8 H, RDW Coeff of Lencho 19.9 H, Plt Count 25 L*, MPV TNP, Immature Gran % (Auto) 0.500, Neut % (Auto) 90.0 H, Lymph % (Auto) 2.7 L, Payne % (Auto) 6.7, Eos % (Auto) 0.0, Baso % (Auto) 0.1, Absolute Neuts (auto) 7.4, Absolute Lymphs (auto) 0.22 L, Nucleated RBC % 0, Differential Comment SEE COMMENT, Diff Path Review October, Platelet Estimate MKD DEC, RBC Morphology N CHROM, Hypochromasia 1+, Anisocytosis RARE, Macrocytosis RARE, Ovalocytes RARE, PT 20.6 H, INR 1.8, APTT 45.3 H, Sodium 140, Potassium 4.7, Chloride 103, Carbon Dioxide 30.0, Anion Gap 7, BUN 74 H, Creatinine 5.60 H, Estim Creat Clear Calc 12.84, Est GFR (MDRD) Af Amer 13 L, Est GFR (MDRD) Non-Af 11 L, BUN/Creatinine Ratio 13.2, Glucose 148 H, Calcium 7.8 L, Total Bilirubin 0.60, AST 10 L, ALT 15 L, Alkaline Phosphatase 65, Total Protein 4.7 L, Albumin 2.1 L, Globulin 2.6, Albumin/Globulin Ratio 0.8 L, Blood Type O POSITIVE, Antibody Screen NEGATIVE, Crossmatch See Detail Micro: Microbiology 09/13/23 16:01 Stool Stool Occult Blood (ROSEMARY) - Final Occult Blood Positive Assessment & Plan Assessment/Plan (1) Gastrointestinal bleeding: QUALIFIERS: GI bleed type/associated pathology: unspecified gastrointestinal hemorrhage type Qualified Code(s): K92.2 - Gastrointestinal hemorrhage, unspecified (2) Thrombocytopenia: (3) Acute on chronic anemia: (4) Chronic anticoagulation: PLAN: Plan 1. Severe [id number] blood loss anemia requiring transfusion with hemoglobin of 6.3 g/dL present on admission in the setting of chronic multifactorial anemia; already on Epogen - Admit to PCU. Proceed with transfusion of one unit of PRBC's. Keep NPO and start IV Protonix. Check NM GI Bleed Scan as per GI's recommendations. Finally, we will consult Dr. Garay of gastroenterology to see this patient on-rounds in the AM for further recommendations with help appreciated in advance. 2. Critical thrombocytopenia of 25 present on admission complicating #1 - Stable at this time. Recheck CBC in AM to ensure continued stability. 3. Adverse drug reaction to combination of apixaban and Plavix precipitating #1 & #2 - This patient should likely not be restarted on these agents as his pattern of serial readmission is the proof that he cannot tolerate them. 4. Paroxysmal atrial fibrillation; on amiodarone and recently restarted on apixaban adding to the pathology of #1 - #3 - Continue amiodarone and hold NOAC. 5. History of peptic ulcer disease with associated blood loss requiring cauterization with patient still on sucralfate and pantoprazole and recent admission here from September 01, 2023 to September 03, 2023 for recurrent GI Bleed with CAP; culminating in him being transferred to [facility] after being treated with antibiotics and transfused 3 units of PRBC's setting the backdrop for #1 - #4 - Noted. 6. End-stage renal disease on hemodialysis (Tuesday, , Tuesday) with patient anuric - followed by Dr. Sonia He of nephrology - We will consult nephrology to see this patient on-rounds in the AM for HD when due with help appreciated in advance. 7. Essential hypertension - Hold scheduled antihypertensives in light of the severe anemia. 8. Hyperlipidemia - Restart statin when patient is able to resume a diet. 9. Obesity; with BMI of 34.5 this admission - Weight loss with be recommended. 10. History of DVT/PE - Noted. 11. History of wide-complex tachycardia - Noted. 12. History of lymphoma - Noted. 13. History of hyperparathyroidism - Stable. 14. History of CHF - Stable. 15. History of bladder cancer - Noted. 16. DVT prophylaxis - SCD's only with critically low hemoglobin and platelet count present on admission. Total time: Approximately 55 minutes. Charges/Coding Visit Charges Inpatient E&M: 30194 Init Hosp L2
[2023-09-13 21:54] LABS: Absolute Lymphocyte Count 0.39 X10^3/uL (0.83-4.51); Absolute Neutrophil Count 7.5 X10^3/uL (2.0-7.7); Basophil# 0.01 X10^3/uL; Basophil% 0.1 % (0-1); Eosinophil# 0.04 X10^3/uL; Eosinophils% 0.5 % (0-5); Hematocrit 22.2 % (40-54); Hemoglobin 7.3 g/dL (13.0-16.5); Lymphocyte # 0.39 X10^3/ul (0.83-4.51); Lymphocyte % 4.5 % (19-41); Mean Corp Hgb Conc 32.9 g/dL (32-36); Mean Corpuscular Hgb 28.7 pg (27.0-32.0); Mean Corpuscular Volume 87.4 fL (80-94); Monocyte# 0.61 X10^3/uL; NRBC Flagged by Analyzer 0.2 % (0-5); Neutrophil # 7.52 X10^3/uL (2.7-7.7); Neutrophil % 86.4 % (47-70); POSITIVE COUNT YES; POSITIVE DIFFERENTIAL YES; POSITIVE MORPHOLOGY YES; RBC Distribution Width CV 19.2 % (11.6-14.6); RBC Distribution Width SD 61.2 fl (35.1-43.9); Red Blood Count 2.54 M/mm3 (4.6-6.2); White Blood Count 8.7 K/mm3 (4.4-11.0)
[2023-09-13] MEDS: Pantoprazole Sodium 40 MG in 0.9% Normal Saline (100mL MB+) 100 ML 330 MG IV (22:21)
[2023-09-13] MEDS: Atorvastatin Calcium 20 MG Tablet PO (22:22)
[2023-09-13] MEDS: Sucralfate 1 GM Tablet PO (22:22)
[2023-09-13 22:38] LABS: Differential Indicated SCAN CRITERIA MET
[2023-09-13 22:39] LABS: Platelet Count 36 K/mm3 (150-450)
[2023-09-13 22:40] LABS: Anisocytosis RARE; Differential Comment SEECOMMENT; Ovalocyte RARE; Platelet Estimate MKD DEC (ADEQ); Red Cell Morphology N CHROM NORMAL (NORM C&C)
[2023-09-14] VITALS (8 sets, daily range): BP systolic 109–128; BP diastolic 50–61; PULSE 69–89; RESP 16–18; TEMP 36.3–36.8; O2SAT 96–100; BMI 26.9
[2023-09-14] MEDS: Sucralfate 1 GM Tablet PO ×4 (06:14→22:18)
[2023-09-14 07:50] LABS: Absolute Lymphocyte Count 0.43 X10^3/uL (0.83-4.51); Absolute Neutrophil Count 5.4 X10^3/uL (2.0-7.7); Basophil# 0.01 X10^3/uL; Basophil% 0.2 % (0-1); Eosinophil# 0.13 X10^3/uL; Hematocrit 22.2 % (40-54); Hemoglobin 6.8 g/dL (13.0-16.5); Lymphocyte # 0.43 X10^3/ul (0.83-4.51); Lymphocyte % 6.5 % (19-41); Mean Corp Hgb Conc 30.6 g/dL (32-36); Mean Corpuscular Hgb 28.1 pg (27.0-32.0); Mean Corpuscular Volume 91.7 fL (80-94); Monocyte# 0.62 X10^3/uL; Monocyte% 9.3 % (0-10); NRBC Flagged by Analyzer 0.3 % (0-5); Neutrophil # 5.44 X10^3/uL (2.7-7.7); Neutrophil % 81.5 % (47-70); POSITIVE COUNT YES; POSITIVE DIFFERENTIAL YES; POSITIVE MORPHOLOGY YES; Platelet Count 45 K/mm3 (150-450); RBC Distribution Width CV 19.1 % (11.6-14.6); RBC Distribution Width SD 65.4 fl (35.1-43.9); Red Blood Count 2.42 M/mm3 (4.6-6.2); White Blood Count 6.7 K/mm3 (4.4-11.0)
[2023-09-14 08:00] LABS: Differential Indicated SCAN CRITERIA MET
[2023-09-14 08:10] LABS: ALB/GLOB Ratio 0.7 RATIO (0.9-2.4); AST(SGOT) 25 U/L (15-37); Alanine Aminotransfer ALT/SGPT 15 U/L (16-61); Alkaline Phosphatase 62 U/L (45-117); Anion Gap 6 (5-15); BUN 91 mg/dL (7-18); Calcium,Total 8.2 mg/dL (8.5-10.1); Chloride 104 mmol/L (98-107); Creatinine, Serum 6.49 mg/dL (0.70-1.30); EST Glomerular Filtration Rate 9 mL/min (>60); Est Glom Filt Rate - Afr Amer 11 mL/min (>60); Estimated Creatinine Clearance 9.53 ml/min; Globulin 2.7 g/dL (2.2-4.2); Glucose 86 mg/dL (74-106); Magnesium 2.1 mg/dL (1.6-2.6); Phosphorus 3.9 mg/dL (2.5-4.9); Potassium 5.3 mmol/L (3.5-5.1); Protein, Total 4.7 g/dL (6.4-8.2); Sodium Level 139 mmol/L (136-145)
[2023-09-14 08:26] LABS: Anisocytosis 2+; Platelet Estimate MKD DEC (ADEQ)
--- NOTE | 2023-09-14 10:00 | NM_ITS ---
We are attempting to reach an attending provider to discuss findings. An addendum with communication details will be sent when the communication is complete. CLINICAL: 78-year-old male with history of gastrointestinal hemorrhage. LABELED BLOOD POOL GASTROINTESTINAL BLEEDING STUDY COMPARISON: CT of the abdomen-pelvis report 08/31/2023, previous gastrointestinal bleeding study report 06/30/2018 FINDINGS: Following the intravenous administration of 25.9 mCi of 99m Tc Ultratag labeled RBCs, image acquisitions of the anterior-abdomen and pelvis for a total of 60 minutes reveal: 1. The initial frame of acquisition demonstrates increased tracer distribution noted in the left mid abdomen laterally which demonstrates medial and cephalad distribution of the radiotracer. The intensity of uptake increases with time. 2. Normal physiologic uptake is demonstrated in the hepatic and splenic parenchyma, vascular blood pool most consistent with physiologic tracer uptake. NM/GI Bleed Scan IMPRESSION: 1. The increase in radiopharmaceutical concentration defined in the left mid and lower abdominal cavity is most consistent with active gastrointestinal hemorrhage. Uptake likely originates in the distal transverse colon with both retrograde and antegrade progression explaining the radiopharmaceutical changing positions. Electronically Signed: Pipe Zamora DO at 13:05 EDT ,
--- NOTE | 2023-09-14 11:27 | PN.HOSP_ITS ---
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 Patient has very complex recent medical history at multiple hospital systems over the past 6 months or so. Patient has known history of ESRD on hemodialysis and A-fib on Eliquis. In the fall 2022 he was found to have a left great toe ulcer with poor healing in the setting of known peripheral artery disease. Had arterial studies done that were consistent with chronic left great toe ischemia. Plan was for revascularization followed by potential hallux amputation by podiatry, however this was complicated by acute on chronic anemia with GI bleeding. Patient had EGD done with Dr. Garay on 05/18/2023 with an oozing duodenal ulcer that was clipped, and blood count stabilized after that. Patient was then admitted to [facility] on 05/20/2023, had stenting of his left SFA artery by vascular surgery on 05/20. 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 Per podiatry and vascular medicine recommendations, patient was started on Plavix after his stent placement and home Eliquis was restarted prior to discharge as well. Patient was then hospitalized at [facility] from 06/16 to 06/18 for acute on chronic anemia secondary to GI bleed. EGD and colonoscopy on 06/17 showed moderate diverticulosis in the rectosigmoid colon with active bleeding coming from the diverticular opening that was injected, tattooed and clips were placed. Otherwise was found to have small nonbleeding esophageal varices, no stomach lesions, single duodenal polyp that was clipped. His Plavix was continued at that time due to recent stent placement but the Eliquis was held on discharge. It appears that Eliquis may have been restarted in early August but difficult to find records of this. Patient was then admitted to [facility] on 08/31 with abnormal labs concerning for recurrent GI bleed. The case was discussed on admission with GI and recommendation was for transfer to a tertiary center as he had been scoped multiple times here and there was concern he may need further intervention via IR or surgical consultation that would not be available at [facility]. Patient ultimately was transferred to [facility] on 09/02. Per outside records, patient was discharged from [facility] 09/08. While hospitalized there, GI attempted colonoscopy twice for the patient however he was not compliant with bowel prep. He instead had a capsule study done on 09/07 that showed a nonbleeding AVM and an ulcerated nodular area in the distal terminal ileum. Hemoglobin remained stable at 9.1 on 09/08 from 9.1 on 09/04 and patient was noted to be having brown stool. GI there noted that patient was okay for discharge with outpatient evaluation for repeat colonoscopy. Patient notably was continued on his Plavix and his Eliquis was restarted on discharge there. Patient then presented again to [facility] on 09/12 with worsening weakness and concern for recurrent GI bleed. Hemoglobin on admit was 6.9 and down trended to 6.3 on recheck. Patient was also noted to have a platelet count of 25. Importantly, patient has a known history of HIT with previous thrombocytopenia and it was strongly recommended the patient not receive any heparin products in future. Patient's labs on discharge from [facility] on 09/02 showed a platelet count of 166, with baseline platelets around 140-160. Is unclear if patient received heparin products at [facility] per the notes but I suspect this may have been the case. Patient was transfused 1 unit of packed red blood cells with improvement in hemoglobin to 7.3, however repeat hemoglobin on 09/13 was 6.8. Had nuclear medicine GI bleed scan on morning of 09/13 that showed an increase in concentration in the left mid and lower abdominal cavity most consistent with active GI hemorrhage. Suspected that the uptake likely originated in the distal transverse colon. GI consulted, agreed that bleeding scan shows bleeding in the transverse colon and recommended that patient undergo colonoscopy for further evaluation. Patient seen at bedside on the floor in the early afternoon on 09/13 as he was having his nuclear medicine bleeding scan done in the morning. At that time patient was sitting up fairly comfortably in bed, conversing normally, no acute distress. Patient has been very hungry after his bleeding scan and was requesting a diet, and he did eat lunch shortly before I saw him. He denies any upper abdominal pain or discomfort, any symptoms of dyspepsia or any nausea/vomiting or hematemesis. Patient's last bowel movement was earlier this morning and he did not visualize a bowel movement so he is unsure if it was dark or tarry or if there was any bright red blood present in his stool. He currently denies any chest pain, shortness of breath, lightheadedness or dizziness at rest. No other acute concerns at this time. Objective Data Objective Data Vital Signs: Vital Signs Temp Pulse Resp BP Pulse Ox O2 Del Method O2 Flow Rate 98.2 F 75 18 109/51 L 100 Nasal Cannula 3 09/14/23 03:26 09/14/23 03:26 09/14/23 03:26 09/14/23 03:26 09/14/23 03:26 09/14/23 09:17 09/14/23 09:45 Oxygen Flow Rate (L/min) 3 Oxygen Delivery Method Nasal Cannula Weight: 82.6 kg Body Mass Index (BMI) 26.9 Intake & Output: Intake and Output for Last 24 Hours 09/12/23 09/13/23 09/14/23 23:59 23:59 23:59 Intake Total 110 / 110 Output Total 0 / 0 Balance 110 / 110 Lab / Micro Data 09/14/23 07:30 09/14/23 07:30 Labs: Laboratory Results - last 24 hr 09/13/23 16:01: WBC 8.3, RBC 2.24 L, Hgb 6.3 L, Hct 20.9 L, MCV 93.3, MCH 28.1, MCHC 30.1 L, RDW Std Deviation 67.8 H, RDW Coeff of Lencho 19.9 H, Plt Count 25 L*, MPV TNP, Immature Gran % (Auto) 0.500, Neut % (Auto) 90.0 H, Lymph % (Auto) 2.7 L, [place] % (Auto) 6.7, Eos % (Auto) 0.0, Baso % (Auto) 0.1, Absolute Neuts (auto) 7.4, Absolute Lymphs (auto) 0.22 L, Nucleated RBC % 0, Differential Comment SEE COMMENT, Diff Path Review May foll, Platelet Estimate MKD DEC, RBC Morphology N CHROM, Hypochromasia 1+, Anisocytosis RARE, Macrocytosis RARE, Ovalocytes RARE, PT 20.6 H, INR 1.8, APTT 45.3 H, Sodium 140, Potassium 4.7, Chloride 103, Carbon Dioxide 30.0, Anion Gap 7, BUN 74 H, Creatinine 5.60 H, Estim Creat Clear Calc 12.84, Est GFR (MDRD) Af Amer 13 L, Est GFR (MDRD) Non-Af 11 L, BUN/Creatinine Ratio 13.2, Glucose 148 H, Calcium 7.8 L, Total Bilirubin 0.60, AST 10 L, ALT 15 L, Alkaline Phosphatase 65, Total Protein 4.7 L, Albumin 2.1 L, Globulin 2.6, A lbumin/Globulin Ratio 0.8 L, Blood Type O POSITIVE, Antibody Screen NEGATIVE, Crossmatch See Detail 09/13/23 16:01: Crossmatch See Detail 09/13/23 21:42: WBC 8.7, RBC 2.54 L, Hgb 7.3 L, Hct 22.2 L, MCV 87.4 D, MCH 28.7, MCHC 32.9 D, RDW Std Deviation 61.2 H, RDW Coeff of Lencho 19.2 H, Plt Count 36 L*, MPV TNP, Immature Gran % (Auto) 1.500 H, Neut % (Auto) 86.4 H, Lymph % (Auto) 4.5 L, [place] % (Auto) 7.0, Eos % (Auto) 0.5, Baso % (Auto) 0.1, Absolute Neuts (auto) 7.5, Absolute Lymphs (auto) 0.39 L, Nucleated RBC % 0.2, Differential Comment SEECOMMENT, Diff Path Review October, Platelet Estimate MKD DEC, RBC Morphology N CHROM, Anisocytosis RARE, Ovalocytes RARE 09/14/23 07:30: WBC 6.7, RBC 2.42 L, Hgb 6.8 L, Hct 22.2 L, MCV 91.7, MCH 28.1, MCHC 30.6 L D, RDW Std Deviation 65.4 H, RDW Coeff of Lencho 19.1 H, Plt Count 45 L*, Immature Gran % (Auto) 0.500, Neut % (Auto) 81.5 H, Lymph % (Auto) 6.5 L, [place] % (Auto) 9.3, Eos % (Auto) 2.0, Baso % (Auto) 0.2, Absolute Neuts (auto) 5.4, Absolute Lymphs (auto) 0.43 L, Nucleated RBC % 0.3, Platelet Estimate MKD DEC, Anisocytosis 2+, Sodium 139, Potassium 5.3 H, Chloride 104, Carbon Dioxide 29.0, Anion Gap 6, BUN 91 H, Creatinine 6.49 H, Estim Creat Clear Calc 9.53, Est GFR (MDRD) Af Amer 11 L, Est GFR (MDRD) Non-Af 9 L, BUN/Creatinine Ratio 14.0, Glucose 86, Calcium 8.2 L, Phosphorus 3.9, Magnesium 2.1, Total Bilirubin 0.90, AST 25, ALT 15 L, Alkaline Phosphatase 62, Total Protein 4.7 L, Albumin 2.0 L, Globulin 2.7, Albumin/Globulin Ratio 0.7 L Micro: Microbiology 09/13/23 16:01 Stool Stool Occult Blood (ROSEMARY) - Final Occult Blood Positive Physical Exam Const alert, oriented x3 and no apparent distress Constitutional Narrative: Elderly male, chronically ill-appearing, obese, otherwise sitting up comfortably in bed, conversing normally, no acute distress. General Appearance: cooperative and comfortable HEENT normocephalic, head/scalp atraumatic, hearing grossly normal bilaterally, nasal mucous membranes and turbinates normal and moist oral mucous membranes Eyes PERRL, EOMs intact bilaterally and conjunctivae normal Neck full ROM Chest inspection of chest normal Resp normal respiratory effort, normal air movement, no use of accessory muscles and clear to auscultation bilaterally Cardio regular rate, regular rhythm, no murmurs and peripheral pulses 2+ throughout GI normal to inspection, nondistended, normoactive bowel sounds, soft to palpation, non-tender and non-distended Back/Spine normal ROM Extremity normal to inspection, full ROM and no pedal edema Skin no rashes or lesions noted Neuro no focal motor deficits and no sensory deficits noted Speech: speech normal Psych mental status grossly normal Assessment & Plan Assessment/Plan (1) Thrombocytopenia: (2) Anemia: (3) Gastrointestinal bleeding: QUALIFIERS: GI bleed type/associated pathology: unspecified gastrointestinal hemorrhage type Qualified Code(s): K92.2 - Gastrointestinal hemorrhage, unspecified (4) History of end stage renal disease: PLAN: Plan Patient is a 78-year-old male who presented to [facility] ED on 09/13/2023 with worsening weakness and concern for recurrent GI bleed. 1. Acute on chronic anemia secondary to recurrent GI bleed Hemoglobin 6.9 on admit, down from reported hemoglobin of 9.1 on discharge from [facility] on 09/08. Hemoccult positive. Repeat hemoglobin on 09/12 of 6.3. Transfuse 1 unit of packed blood cells with improvement to 7.3, but then repeat hemoglobin on 09/13 of 6.8. Known history of upper GI bleed in April 2023 from gastric ulcer, lower GI diverticular bleed in May 2023 and suspected recurrent lower GI bleed about 2 weeks prior to this admission. See subjective on 09/13 for further details. Nuclear medicine bleeding scan on 09/13 showed active GI hemorrhage in transverse colon. Had second transfusion of 1 unit of packed red blood cells on afternoon of 09/13. Was on both Plavix and aspirin prior to this admission, again see subjective for further details. ? GI following. Planning for colonoscopy on 09/14 for further evaluation. N.p.o. at midnight. Trend daily CBC, transfuse for hemoglobin less than 7. Holding Plavix and Eliquis; per GI, will likely need to discontinue these agents given his history of recurrent GI bleeding. 2. Severe thrombocytopenia, history of heparin-induced thrombocytopenia Platelet count 25 on admit, notably was 166 on 09/02 prior to transfer to [facility]. Has known history of HIT. Unclear if patient received heparin products at [facility] but this would seem to be most likely given his acute drop in platelet count. Repeat platelet count on 09/12 of 36. ? Most recent platelet count of 45 on 09/13. Continue to monitor daily CBC. SCDs for DVT prophylaxis. Holding Plavix and Eliquis as noted above. Essential that patient receives no heparin products going forward. 3. ESRD on HD ? Follows with Dr. He with nephrology, on HD TTS. Nephrology consulted. Suspect plan will be to continue dialysis sessions as normal. Patient will also be receiving a dose of Epo with dialysis on 09/14. 4. 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 Had left leg SFA stent on 05/20/2023 and left great toe amputation on 05/28/2023 done at [facility] with vascular surgery and podiatry. See polanco bjective on 09/13 for further details. Unfortunately patient has shown an inability to tolerate either Plavix or Eliquis due to recurrent GI bleeding. Will need to hold both Plavix and Eliquis moving forward. Patient will need close outpatient follow-up with vascular surgery and podiatry going forward. Continue home statin. 5. Paroxysmal A-fib, history of wide-complex tachycardia ? Stable normal sinus rhythm on admit. Continue home Coreg and amiodarone. Holding home Eliquis as noted above. 6. Chronic debility ? Patient has recently been residing at the [facility] for residential services. PT/OT/case management consulted. Suspect patient will be discharged back to at the [facility]. Chronic medical conditions: ? Obesity: BMI 31 on admit. Complicates hospital course, care and prognosis. ? History of HFpEF: Last echo in 06/2022 showed EF 60%, mild concentric LV hypertrophy, indeterminate diastolic function, mildly dilated RV with mild global RV systolic dysfunction, enlarged LA and RA, no significant valvular disease. Stable on admit, not in acute exacerbation. ? History of lymphoma ? History of hyperparathyroidism ? History of bladder cancer DVT prophylaxis: SCDs CODE STATUS: Full code, verified Expected disposition: Likely back to [facility], TBD Total clinical time spent by myself addressing the patient's medical issues, reviewing all the data, and collaborating with patient's care team: 50 minutes. Charges/Coding Visit Charges Inpatient E&M: 24331 Subs Hosp L3
--- NOTE | 2023-09-14 11:35 | CASEMGMT ---
Patient is from [facility]. SW will check with patient to make sure his plan is to return to [place]. Abbie Jordan MSW TITO
[2023-09-14] MEDS: Pantoprazole Sodium 40 MG in 0.9% Normal Saline (100mL MB+) 100 ML 330 MG IV ×2 (11:46→22:18)
[2023-09-14] MEDS: Folic Acid/Vitamin B Comp W-C 1 Capsule 1 CAP PO (13:54)
[2023-09-14] MEDS: Budesonide 3 MG CAPSULE.EC 9 MG PO (13:55)
[2023-09-14] MEDS: Vitamin B Comp W-C Capsule 1 CAP PO (13:55)
[2023-09-14] MEDS: Amiodarone 200 MG Tablet PO (13:55)
[2023-09-14] MEDS: Menthol/Lanolin/Calamine/Znox 113 GM Tube 1 APPLIC TOPICAL (13:55)
--- NOTE | 2023-09-14 14:43 | CHAPLAIN ---
Type of Pastoral Visit __x_ Initial Visit ___ Follow-up Visit ___ On-call Visit ___ General Patient Visit ___ Spiritual Assessment ___ Family Conference ___ Bereavement ___ Rapid Response ___ Code Blue ___ Other (describe below) Pastoral Care Referral From _x__ Patient ___ Family ___ Nurse ___ Physician ___ Director Of Financial Planning ___ Parole Hearing Officer ___ Other (describe below) Sacrament/Intervention _x__ Active listening ___ Anointing ___ Mormonism ___ Bereavement ___ Communion _x__ Klarissa exploration ___ _x__ Life review _x__ Prayer ___ Reconciliation ___ Sacrament of Sick _x__ Supportive presence ___ Wedding ___ Other (describe below) Pastoral Comments patient has been seen before, even recently; pt is in a more disagreeable mood and states that they doctors can't find anything wrong, but I know there is; pt has had ongoing bleeding and tells what he did to keep his blood counts healthy; pt has concerns how long all of this is going to take; pt states his opinions about politics and world affairs; pt hopes to get some relief soon and what God will do; pt admits to frustrations and shows it through verbal words; pt illustrates what good care would look like; prayer given and time to listen
[2023-09-14 16:25] LABS: Pathologist Review Reviewed
[2023-09-14 16:26] LABS: Pathologist Review Reviewed
--- NOTE | 2023-09-14 18:38 | EX.PCM.CON.G ---
HPI Consult Data Date of Consult: 09/14/23 HPI Narrative Reason for Consultation: GI bleed HPI Narrative: RIA MARIANO, is a 78 M with past medical history of essential hypertension, hyperlipidemia, end-stage renal disease on hemodialysis (Tuesday, , Tuesday) with patient anuric - followed by Dr. Sonia He of nephrology, chronic multifactorial anemia; on Epogen, history of DVT/PE, paroxysmal atrial fibrillation; on apixaban and amiodarone, history of wide-complex tachycardia, history of lymphoma, history of hyperparathyroidism, history of CHF, history of bladder cancer and history of peptic ulcer disease with associated blood loss requiring cauterization with patient still on sucralfate and pantoprazole who presents to [facility] ER complaining of dizziness, fatigue and a hemoglobin of 7.1 at dialysis. Mr. Mariano reports his symptoms began yesterday with dyspnea on exertion and a constant feeling of dizziness and fatigue that was worse with activity with patient then instructed by his maple syrup maker to come to the ER to be transfused. He also admits to some aching pain in his left lower quadrant but this was mild to moderate and is not present at this time. His recent endoscopies 05/18/2023 upper endoscopy with normal esophagus, medium size hiatal hernia, oozing duodenal ulcer with visible vessel which was injected and treated with a heater probe with clips placed. colonoscopy with perineal and digital rectal exam normal, multiple small and large mouth diverticula found in the anus, rectosigmoid colon, sigmoid colon, descending colon, splenic flexure and transverse colon with extensive amounts of stool in the entire colon precluding unfortunately visualization at that time with plan repeat colonoscopy in 2-month secondary to poor bowel prep with continuation of high-dose twice daily Protonix and sucralfate. Now represents to the [facility] ED on with history of dialysis on day of presentation with blood count performed and noted hemoglobin 6.8 and platelet count 25 reportedly a week prior 9.5 prompting referral to ED for evaluation given significant decline on both Eliquis and Plavix with no obvious witnessed gross blood or melena but given drop referral for evaluation. [facility] Medical History Anemia Anemia Anemia requiring transfusions Aortic root dilatation Arthritis Atrial fibrillation Bladder cancer Cancer Cardiology follow-up encounter (~04/04/23) CHF (congestive heart failure) Chronic anticoagulation CKD (chronic kidney disease) stage 5, GFR less than 15 ml/min Coronary artery disease Dialysis patient Duodenal ulcer ESRD (end stage renal disease) on dialysis ESRD (end stage renal disease) on dialysis Essential hypertension Former smoker GI bleed Hepatic cyst History of atrial fibrillation History of CHF (congestive heart failure) History of DVT (deep vein thrombosis) History of echocardiogram (~06/30/22) History of end stage renal disease History of GI bleed History of pulmonary embolism History of renal dialysis History of solitary pulmonary nodule History of stress test (~05/03/22) HIT (heparin-induced thrombocytopenia) HLD (hyperlipidemia) Hyperparathyroidism Iron deficiency anemia Kidney disease Left upper chest discomfort Loss of hearing Low iron Lower gastrointestinal bleeding Lymphoma Paroxysmal A-fib Preop cardiovascular exam Pulmonary embolism Renal calculus Sleep apnea VTE (venous thromboembolism) Wears dentures Wears glasses Wears partial dentures Wide-complex tachycardia Home Medications vitamin B complex 1 tab PO DAILY SUPPLEMENT 07/02/20 [History Last Taken 02/28/23 11:00] sucroferric oxyhydroxide 500 mg chewable tablet (Velphoro) 500 mg PO TIDCM anemia 03/01/23 [History Last Taken Unknown] apixaban 2.5 mg tablet (Eliquis) 2.5 mg PO BID blood thinner 04/04/23 [History Last Taken 05/15/23] budesonide 3 mg capsule,delayed,extended release 9 mg PO DAILY stomach 06/16/23 [History Last Taken Unknown] vitamin B complex-vitamin C-folic acid 0.8 mg tablet (Bibiana-Leoncio) 1 tab PO DAILY supplement 06/16/23 [History Last Taken Unknown] clopidogrel 75 mg tablet 75 mg PO DAILY #0 tabs 06/18/23 [Rx Last Taken Unknown] midodrine 5 mg tablet 5 mg PO TUTHSA 07/28/23 [History Last Taken Unknown] albuterol sulfate 0.63 mg/3 mL solution for nebulization 0.63 mg (3 mL) inhalation Q4H PRN bronchospasm #75 mL 08/27/23 [Rx Last Taken Unknown] amiodarone 200 mg tablet 200 mg PO DAILY heart rate 08/31/23 [History Last Taken Unknown] atorvastatin 20 mg tablet 20 mg PO QHS CHOLESTEROL 08/31/23 [History Last Taken Unknown] bisacodyl 10 mg rectal suppository 10 mg TN QHS PRN constipation 08/31/23 [History Last Taken Unknown] carvedilol 3.125 mg tablet 3.125 mg PO BID HIGH BLOOD PRESSURE 08/31/23 [History Last Taken Unknown] levofloxacin 750 mg tablet 750 mg PO DAILY 08/31/23 [History Last Taken Unknown] magnesium hydroxide 400 mg/5 mL oral suspension (Milk of Magnesia) 30 ml PO DAILY PRN constipation 08/31/23 [History Last Taken Unknown] mineral oil (Fleet Mineral Oil enema) 118 ml TN DAILY PRN constipation 08/31/23 [History Last Taken Unknown] pantoprazole 40 mg tablet,delayed release 40 mg PO BID reflux 08/31/23 [History Last Taken Unknown] polyethylene glycol 3350 17 gram/dose oral powder (ClearLax) 17 g PO DAILY PRN constipation 08/31/23 [History Last Taken Unknown] sucralfate 1 gram tablet 1 g PO 4X/DAY reflux 08/31/23 [History Last Taken Unknown] Allergy/AdvReac Type Severity Reaction Status Date / Time Iodinated Contrast Media Allergy Intermediate KIDNEY Verified 08/31/23 11:38 FAILURE enoxaparin [From Lovenox] Allergy Other Verified 08/31/23 11:38 heparin Allergy Other Verified 08/31/23 11:38 aspirin AdvReac Other Verified 08/31/23 11:38 Family History Father Cancer lung Arrhythmia Brother Cancer Mother Dementia Surgical History AV fistula H/O total cystectomy History of bladder surgery History of cataract extraction History of corrected cleft lip and palate History of foot surgery History of tonsillectomy S/P peripheral artery angioplasty with stent placement Social History household members: none Smoking Status: Former smoker how long ago did patient quit smoking: Started age 7, stopped at 17, started again 21-2 ppd until quit 2008 alcohol intake: never substance use type: does not use caffeine: No ROS ROS Narrative Review of systems: General: Patient denies fevers or chills. HENT: Denies headache, denies stuffy nose, denies sore throat EYES: Denies changes in vision or discharge from eyes. Resp: Denies cough, denies shortness of breath Cardiac: Denies chest pain or palpitations. GI: Patient admits to mild lower abdominal pain but denies changes in bowel, denies nausea or vomiting. : Denies changes in urination Extremity: Denies swelling Musculoskeletal: Feels somewhat generally weak and unwell. He also admits to neck pain but denies back pain. Neuro: Patient denies headache, paresthesias or focal neurologic weakness. Heme: Patient denies any gross bleeding or bruising because he is not checking his stools in spite of his complex medical history pattern of recurrent bleeding as per HPI. Skin: Denies rashes Psychiatric: No complaints voiced related to uncontrolled depression or anxiety. Endocrine: No polyuria, polydipsia or polyphagia. The rest of the 14 point ROS was negative except for positives in HPI. Physical Exam Const alert, oriented x3, no apparent distress, average body habitus and healthy appearing General Appearance: cooperative HEENT normocephalic, head/scalp atraumatic, hearing grossly normal bilaterally and moist oral mucous membranes Eyes PERRL and EOMs intact bilaterally Neck no lymphadenopathy and supple Resp normal respiratory effort, no retractions, no use of accessory muscles and clear to auscultation bilaterally Cardio Cardio Narrative: Irregularly irregular. GI normal to inspection, nondistended, normoactive bowel sounds, soft to palpation and non-distended GI Narrative: Patient is tender to palpation in the lower abdomen. Extremity normal to inspection, full ROM and no clubbing, cyanosis or edema Skin Skin Narrative: Patient has no evidence of rash at this time. Neuro oriented x3, CN's II-XII intact bilaterally, moves all extremities and no focal motor deficits Sensorium / Orientation: awake, alert, oriented to person, oriented to place and oriented to time Speech: speech normal Motor Exam: strength 5/5 throughout Psych affect normal Lab / Micro Data 09/14/23 07:30 09/14/23 07:30 Labs: Laboratory Results - last 24 hr 09/13/23 16:01: Diff Path Review Reviewed, Crossmatch See Detail 09/13/23 16:01: Crossmatch See Detail 09/13/23 21:42: WBC 8.7, RBC 2.54 L, Hgb 7.3 L, Hct 22.2 L, MCV 87.4 D, MCH 28.7, MCHC 32.9 D, RDW Std Deviation 61.2 H, RDW Coeff of Lencho 19.2 H, Plt Count 36 L*, MPV TNP, Immature Gran % (Auto) 1.500 H, Neut % (Auto) 86.4 H, Lymph % (Auto) 4.5 L, [place] % (Auto) 7.0, Eos % (Auto) 0.5, Baso % (Auto) 0.1, Absolute Neuts (auto) 7.5, Absolute Lymphs (auto) 0.39 L, Nucleated RBC % 0.2, Differential Comment SEECOMMENT, Diff Path Review Reviewed, Platelet Estimate MKD DEC, RBC Morphology N CHROM, Anisocytosis RARE, Ovalocytes RARE 09/14/23 07:30: WBC 6.7, RBC 2.42 L, Hgb 6.8 L, Hct 22.2 L, MCV 91.7, MCH 28.1, MCHC 30.6 L D, RDW Std Deviation 65.4 H, RDW Coeff of Lencho 19.1 H, Plt Count 45 L*, Immature Gran % (Auto) 0.500, Neut % (Auto) 81.5 H, Lymph % (Auto) 6.5 L, [place] % (Auto) 9.3, Eos % (Auto) 2.0, Baso % (Auto) 0.2, Absolute Neuts (auto) 5.4, Absolute Lymphs (auto) 0.43 L, Nucleated RBC % 0.3, Platelet Estimate MKD DEC, Anisocytosis 2+, Sodium 139, Potassium 5.3 H, Chloride 104, Carbon Dioxide 29.0, Anion Gap 6, BUN 91 H, Creatinine 6.49 H, Estim Creat Clear Calc 9.53, Est GFR (MDRD) Af Amer 11 L, Est GFR (MDRD) Non-Af 9 L, BUN/Creatinine Ratio 14.0, Glucose 86, Calcium 8.2 L, Phosphorus 3.9, Magnesium 2.1, Total Bilirubin 0.90, AST 25, ALT 15 L, Alkaline Phosphatase 62, Total Protein 4.7 L, Albumin 2.0 L, Globulin 2.7, Albumin/Globulin Ratio 0.7 L Micro: Microbiology 09/13/23 16:01 Stool Stool Occult Blood (ROSEMARY) - Final Occult Blood Positive Imaging Radiology Impression GI Bleed Scan Nuclear Medicine 09/14/23 10:00 IMPRESSION: 1. The increase in radiopharmaceutical concentration defined in the left mid and lower abdominal cavity is most consistent with active gastrointestinal hemorrhage. Uptake likely originates in the distal transverse colon with both retrograde and antegrade progression explaining the radiopharmaceutical changing positions. Electronically Signed: Pipe Zamora DO at 13:05 EDT , ADDENDUM: 09/14/23 1610 IMPRESSION: 1. The increase in radiopharmaceutical concentration defined in the left mid and lower abdominal cavity is most consistent with active gastrointestinal hemorrhage. Uptake likely originates in the distal transverse colon with both retrograde and antegrade progression explaining the radiopharmaceutical changing positions. N.B. : The above Results were Read Back by Pipe Zamora DO to Ashley Talbot RN, and understanding confirmed on 09/14/2023 16:03:53 (ET). Electronically Signed: Pipe Zamora DO at 13:05 EDT , Assessment & Plan Assessment/Plan (1) Gastrointestinal bleeding: QUALIFIERS: GI bleed type/associated pathology: unspecified gastrointestinal hemorrhage type Qualified Code(s): K92.2 - Gastrointestinal hemorrhage, unspecified (2) Thrombocytopenia: (3) Acute on chronic anemia: (4) Chronic anticoagulation: PLAN: Plan Severe [id number] blood loss anemia requiring transfusion with hemoglobin of 6.3 g/dL present on admission in the setting of chronic multifactorial anemia; already on Epogen - Admit to PCU. Proceed with transfusion of one unit of PRBC's. Keep NPO and start IV Protonix. NM GI Bleed Scan displays bleeding in the transverse colon. He will need to undergo colonoscopy. Critical thrombocytopenia of 25 present on admission complicating #1 - Stable at this time. Recheck CBC in AM to ensure continued stability. Adverse drug reaction to combination of apixaban and Plavix precipitating #1 & #2 - This patient should likely not be restarted on these agents as his pattern of serial readmission is the proof that he cannot tolerate them. Paroxysmal atrial fibrillation; on amiodarone and recently restarted on apixaban adding to the pathology of #1 - #3 - Continue amiodarone and hold NOAC. History of peptic ulcer disease with associated blood loss requiring cauterization with patient still on sucralfate and pantoprazole and recent admission here from September 01, 2023 to September 03, 2023 for recurrent GI Bleed with CAP; culminating in him being transferred to [facility] after being treated with antibiotics and transfused 3 units of PRBC's setting the backdrop for #1 - #4 - Noted. End-stage renal disease on hemodialysis (Tuesday, , Tuesday) with patient anuric - followed by Dr. Sonia He of nephrology - We will consult nephrology to see this patient on-rounds in the AM for HD when due with help appreciated in advance. Charges/Coding Visit Charges Inpatient E&M: 77783 Init Hosp L3
[2023-09-14] MEDS: Bisacodyl 5 MG Tablet 20 MG PO (19:45)
[2023-09-14] MEDS: Polyethylene Glycol 3350 BOWEL PREP PO (20:39)
[2023-09-14] MEDS: Atorvastatin Calcium 20 MG Tablet PO (22:18)
[2023-09-15] VITALS (24 sets, daily range): BP systolic 79–245; BP diastolic 40–88; PULSE 62–100; RESP 14–20; TEMP 36.4–37.3; O2SAT 92–100; BMI 31.4; BMI 32.1; BMI 30.9
[2023-09-15 03:26] LABS: Hematocrit 22.6 % (40-54); Hemoglobin 7.1 g/dL (13.0-16.5); Mean Corp Hgb Conc 31.4 g/dL (32-36); Mean Corpuscular Hgb 28.6 pg (27.0-32.0); Mean Corpuscular Volume 91.1 fL (80-94); POSITIVE COUNT YES; Platelet Count 71 K/mm3 (150-450); RBC Distribution Width CV 18.8 % (11.6-14.6); RBC Distribution Width SD 61.3 fl (35.1-43.9); Red Blood Count 2.48 M/mm3 (4.6-6.2); White Blood Count 5.9 K/mm3 (4.4-11.0)
[2023-09-15 03:40] LABS: International Normalized Ratio 1.3; Prothrombin Time (Protime)PT. 16.5 SECONDS (11.7-14.9)
[2023-09-15 03:41] LABS: Partial Thromboplast Time 42.6 Seconds (24.1-36.2)
[2023-09-15 03:45] LABS: AST(SGOT) 12 U/L (15-37)
[2023-09-15 03:52] LABS: Alanine Aminotransfer ALT/SGPT 15 U/L (16-61); Albumin, Serum 2.1 g/dL (3.2-5.0); Anion Gap 10 (5-15); BUN 115 mg/dL (7-18); BUN/Creat Ratio 15.3 RATIO (10-20); Calcium,Total 7.9 mg/dL (8.5-10.1); Chloride 105 mmol/L (98-107); Creatinine, Serum 7.54 mg/dL (0.70-1.30); EST Glomerular Filtration Rate 8 mL/min (>60); Est Glom Filt Rate - Afr Amer 9 mL/min (>60); Estimated Creatinine Clearance 9.41 ml/min; Glucose 160 mg/dL (74-106); Phosphorus 4.2 mg/dL (2.5-4.9); Potassium 5.1 mmol/L (3.5-5.1); Sodium Level 142 mmol/L (136-145)
--- NOTE | 2023-09-15 05:55 | EKG12_ITS ---
Test Reason : AM EKG Blood Pressure : / mmHG Vent. Rate : 075 BPM Atrial Rate : 000 BPM P-R Int : 000 ms QRS Dur : 180 ms QT Int : 442 ms P-R-T Axes : 000 -77 077 degrees QTc Int : 493 ms Atrial fibrillation Left axis deviation Right bundle branch block Septal infarct (cited on or before 27-AUG-2023) Abnormal ECG Confirmed by SHAYNA BYERS, JEANETTE ([id number]), film or videotape editor CLIFF MARIE ([id number]) on 09/15/2023 8:52:33 AM Referred By: Confirmed By:JEANETTE CORRAL MD
[2023-09-15] MEDS: 0.9% Normal Saline 1,000 ML IV.SOLN. 1000 ML OPERA.SITE (07:52)
[2023-09-15] MEDS: PureFlow B 2K Dialysis Soln 1 BAG 6 BAG PF (07:52)
[2023-09-15] MEDS: Midodrine HCl 5 MG Tablet 10 MG PO (07:58)
--- NOTE | 2023-09-15 08:21 | PCM.CONS.R ---
Assessment & Plan Assessment/Plan (1) ESRD (end stage renal disease) on dialysis: PLAN: currently receiving dialysis. TTS schedule. Fluid removal as tolerated (2) Gastrointestinal bleeding: QUALIFIERS: GI bleed type/associated pathology: unspecified gastrointestinal hemorrhage type Qualified Code(s): K92.2 - Gastrointestinal hemorrhage, unspecified PLAN: s/p prbc, hgb 7.1g today (3) Thrombocytopenia: (4) Chronic anticoagulation: (5) Hypotension: PLAN: midodrine with dialysis (6) Atrial fibrillation: QUALIFIERS: Atrial fibrillation type: unspecified chronic Qualified Code(s): I48.20 - Chronic atrial fibrillation, unspecified HPI Consult Data Date of Consult: 09/15/23 HPI Narrative Reason for Consultation: ESRD HD TTS HPI Narrative: RIA MARIANO, is a 78 M who presents with recurrent GI bleed with acute blood loss hgb 6.3g. Pt was sent to [facility] ER on 09/12 from dialysis center for hypotension SBP in the 70's, SOB and weakness with difficulty with fluid removal due to low BP. He has been hospitalized multiple times for same reason and recently discharged from [facility] to [facility] last week on Eliquis and plavix. He had mild abdominal pain. Cant recall if noticed black stools but guaiac positive in ER. He received blood transfusion. PLT low at 25K, today 71K. Currently receiving dialysis without heparin. Scheduled for endoscopy today after dialysis. Bleeding scan ordered by GI from 09/13 positive for active bleeding in LLQ abdomen. [facility] Medical History (Updated 09/15/23 @ 08:[address] Sonia He, ) Anemia Anemia Anemia requiring transfusions Aortic root dilatation Arthritis Atrial fibrillation Bladder cancer Cancer Cardiology follow-up encounter (~04/04/23) CHF (congestive heart failure) Chronic anticoagulation CKD (chronic kidney disease) stage 5, GFR less than 15 ml/min Coronary artery disease Dialysis patient Duodenal ulcer ESRD (end stage renal disease) on dialysis ESRD (end stage renal disease) on dialysis Essential hypertension Former smoker GI bleed Hepatic cyst History of atrial fibrillation History of CHF (congestive heart failure) History of DVT (deep vein thrombosis) History of echocardiogram (~06/30/22) History of end stage renal disease History of GI bleed History of pulmonary embolism History of renal dialysis History of solitary pulmonary nodule History of stress test (~05/03/22) HIT (heparin-induced thrombocytopenia) HLD (hyperlipidemia) Hyperparathyroidism Iron deficiency anemia Kidney disease Left upper chest discomfort Loss of hearing Low iron Lower gastrointestinal bleeding Lymphoma Paroxysmal A-fib Preop cardiovascular exam Pulmonary embolism Renal calculus Sleep apnea VTE (venous thromboembolism) Wears dentures Wears glasses Wears partial dentures Wide-complex tachycardia Home Medications vitamin B complex 1 tab PO DAILY SUPPLEMENT 07/02/20 [History Last Taken 02/28/23 11:00] sucroferric oxyhydroxide 500 mg chewable tablet (Velphoro) 500 mg PO TIDCM anemia 03/01/23 [History Last Taken Unknown] apixaban 2.5 mg tablet (Eliquis) 2.5 mg PO BID blood thinner 04/04/23 [History Last Taken 05/15/23] budesonide 3 mg capsule,delayed,extended release 9 mg PO DAILY stomach 06/16/23 [History Last Taken Unknown] vitamin B complex-vitamin C-folic acid 0.8 mg tablet (Bibiana-Leoncio) 1 tab PO DAILY supplement 06/16/23 [History Last Taken Unknown] clopidogrel 75 mg tablet 75 mg PO DAILY #0 tabs 06/18/23 [Rx Last Taken Unknown] midodrine 5 mg tablet 5 mg PO TUTHSA 07/28/23 [History Last Taken Unknown] albuterol sulfate 0.63 mg/3 mL solution for nebulization 0.63 mg (3 mL) inhalation Q4H PRN bronchospasm #75 mL 08/27/23 [Rx Last Taken Unknown] amiodarone 200 mg tablet 200 mg PO DAILY heart rate 08/31/23 [History Last Taken Unknown] atorvastatin 20 mg tablet 20 mg PO QHS CHOLESTEROL 08/31/23 [History Last Taken Unknown] bisacodyl 10 mg rectal suppository 10 mg WA QHS PRN constipation 08/31/23 [History Last Taken Unknown] carvedilol 3.125 mg tablet 3.125 mg PO BID HIGH BLOOD PRESSURE 08/31/23 [History Last Taken Unknown] levofloxacin 750 mg tablet 750 mg PO DAILY 08/31/23 [History Last Taken Unknown] magnesium hydroxide 400 mg/5 mL oral suspension (Milk of Magnesia) 30 ml PO DAILY PRN constipation 08/31/23 [History Last Taken Unknown] mineral oil (Fleet Mineral Oil enema) 118 ml WA DAILY PRN constipation 08/31/23 [History Last Taken Unknown] pantoprazole 40 mg tablet,delayed release 40 mg PO BID reflux 08/31/23 [History Last Taken Unknown] polyethylene glycol 3350 17 gram/dose oral powder (ClearLax) 17 g PO DAILY PRN constipation 08/31/23 [History Last Taken Unknown] sucralfate 1 gram tablet 1 g PO 4X/DAY reflux 08/31/23 [History Last Taken Unknown] Allergy/AdvReac Type Severity Reaction Status Date / Time Iodinated Contrast Media Allergy Intermediate KIDNEY Verified 08/31/23 11:38 FAILURE enoxaparin [From Lovenox] Allergy Other Verified 08/31/23 11:38 heparin Allergy Other Verified 08/31/23 11:38 aspirin AdvReac Other Verified 08/31/23 11:38 Family History Father Cancer lung Arrhythmia Brother Cancer Mother Dementia Surgical History AV fistula H/O total cystectomy History of bladder surgery History of cataract extraction History of corrected cleft lip and palate History of foot surgery History of tonsillectomy S/P peripheral artery angioplasty with stent placement Social History household members: none Smoking Status: Former smoker how long ago did patient quit smoking: Started age 7, stopped at 17, started again 21-2 ppd until quit 2008 alcohol intake: never substance use type: does not use caffeine: No ROS Constitutional Constitutional: Reports weakness and weight gain Cardiovascular Cardiovascular: Reports dyspnea on exertion, irregular heart rhythm and leg edema; Denies chest pain Respiratory/Chest Respiratory/Chest: Denies dry cough Gastrointestinal Gastrointestinal: Reports abdominal pain; Denies anorexia, diarrhea, hematochezia, melena, nausea or vomiting Physical Exam Const alert, oriented x3 and no apparent distress Nutritional Appearance: obese Resp clear to auscultation bilaterally Cardio Rhythm: abnormal rhythm irregularly irregular GI non-tender and non-distended Auscultation: normoactive bowel sounds Palpation: soft Extremity General Extremity: AV fistula and edema bilateral Skin General Skin Exam: ecchymosis Neuro CN's II-XII intact bilaterally Psych cooperative Lab / Micro Data 09/15/23 03:08 09/15/23 03:08 Labs: Laboratory Results - last 24 hr 09/13/23 16:01: Diff Path Review Reviewed, Crossmatch See Detail 09/13/23 21:42: Diff Path Review Reviewed 09/14/23 07:30: Platelet Estimate MKD DEC, Anisocytosis 2+ 09/15/23 03:08: WBC 5.9, RBC 2.48 L, Hgb 7.1 L, Hct 22.6 L, MCV 91.1, MCH 28.6, MCHC 31.4 L, RDW Std Deviation 61.3 H, RDW Coeff of Lencho 18.8 H, Plt Count 71 L, MPV 11.0, PT 16.5 H, INR 1.3, APTT 42.6 H, Sodium 142, Potassium 5.1, Chloride 105, Carbon Dioxide 27.0, Anion Gap 10, BUN 115 H*, Creatinine 7.54 H*, Estim Creat Clear Calc 9.41, Est GFR (MDRD) Af Amer 9 L, Est GFR (MDRD) Non-Af 8 L, BUN/Creatinine Ratio 15.3, Glucose 160 H, Calcium 7.9 L, Phosphorus 4.2, AST 12 L, ALT 15 L, Albumin 2.1 L Imaging Radiology Impression GI Bleed Scan Nuclear Medicine 09/14/23 10:00 IMPRESSION: 1. The increase in radiopharmaceutical concentration defined in the left mid and lower abdominal cavity is most consistent with active gastrointestinal hemorrhage. Uptake likely originates in the distal transverse colon with both retrograde and antegrade progression explaining the radiopharmaceutical changing positions. Electronically Signed: Pipe Zamora DO at 13:05 EDT , ADDENDUM: 09/14/23 1610 IMPRESSION: 1. The increase in radiopharmaceutical concentration defined in the left mid and lower abdominal cavity is most consistent with active gastrointestinal hemorrhage. Uptake likely originates in the distal transverse colon with both retrograde and antegrade progression explaining the radiopharmaceutical changing positions. N.B. : The above Results were Read Back by Pipe Zamora DO to Ashley Talbot RN, and understanding confirmed on 09/14/2023 16:03:53 (ET). Electronically Signed: Pipe Zamora DO at 13:05 EDT ,
[2023-09-15] MEDS: 0.9% Saline Lock 10 ML Syringe IV ×3 (11:09→18:26)
[2023-09-15] MEDS: Pantoprazole Sodium 40 MG in 0.9% Normal Saline (100mL MB+) 100 ML 330 MG IV ×2 (11:09→21:42)
[2023-09-15] MEDS: Menthol/Lanolin/Calamine/Znox 113 GM Tube 1 APPLIC TOPICAL (11:11)
--- NOTE | 2023-09-15 12:00 | NURSING ---
Call placed to [facility] requesting faxed AUG.
--- NOTE | 2023-09-15 13:23 | PCM.PN.HOSP ---
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 Patient seen at bedside this morning. He was somewhat pale and fatigued appearing but otherwise was laying comfortably in bed, conversing normally and in no acute distress. He has had many bowel movements since yesterday afternoon as he was taking colonoscopy prep. Denies any nausea or vomiting with this. Feels generally weak but similar to previous days. No other acute concerns this morning. Objective Data Objective Data Vital Signs: Vital Signs Temp Pulse Resp BP Pulse Ox O2 Del Method O2 Flow Rate 98.1 F 85 16 109/66 100 Nasal Cannula 2 09/15/23 12:08 09/15/23 12:08 09/15/23 12:08 09/15/23 12:08 09/15/23 12:08 09/15/23 12:08 09/15/23 12:08 Oxygen Flow Rate (L/min) 2 Oxygen Delivery Method Nasal Cannula Weight: 95.2 kg Body Mass Index (BMI) 30.9 Intake & Output: Intake and Output for Last 24 Hours 09/13/23 09/14/23 09/15/23 23:59 23:59 23:59 Intake Total 460 / 460 220 / 220 Output Total 0 / 0 3500 / 3500 Balance 460 / 460 -3280 / -3280 Lab / Micro Data 09/15/23 03:08 09/15/23 03:08 Labs: Laboratory Results - last 24 hr 09/13/23 16:01: Diff Path Review Reviewed, Crossmatch See Detail 09/13/23 16:01: Crossmatch See Detail 09/13/23 21:42: Diff Path Review Reviewed 09/15/23 03:08: WBC 5.9, RBC 2.48 L, Hgb 7.1 L, Hct 22.6 L, MCV 91.1, MCH 28.6, MCHC 31.4 L, RDW Std Deviation 61.3 H, RDW Coeff of Lencho 18.8 H, Plt Count 71 L, MPV 11.0, PT 16.5 H, INR 1.3, APTT 42.6 H, Sodium 142, Potassium 5.1, Chloride 105, Carbon Dioxide 27.0, Anion Gap 10, BUN 115 H*, Creatinine 7.54 H*, Estim Creat Clear Calc 9.41, Est GFR (MDRD) Af Amer 9 L, Est GFR (MDRD) Non-Af 8 L, BUN/Creatinine Ratio 15.3, Glucose 160 H, Calcium 7.9 L, Phosphorus 4.2, AST 12 L, ALT 15 L, Albumin 2.1 L Micro: Microbiology 09/13/23 16:01 Stool Stool Occult Blood ([facility]SEM[facility]) - Final Occult Blood Positive Radiography Diagnostic Testing: Radiology Impression GI Bleed Scan Nuclear Medicine 09/14/23 10:00 IMPRESSION: 1. The increase in radiopharmaceutical concentration defined in the left mid and lower abdominal cavity is most consistent with active gastrointestinal hemorrhage. Uptake likely originates in the distal transverse colon with both retrograde and antegrade progression explaining the radiopharmaceutical changing positions. Electronically Signed: Pipe Zamora DO at 13:05 EDT , ADDENDUM: 09/14/23 1610 IMPRESSION: 1. The increase in radiopharmaceutical concentration defined in the left mid and lower abdominal cavity is most consistent with active gastrointestinal hemorrhage. Uptake likely originates in the distal transverse colon with both retrograde and antegrade progression explaining the radiopharmaceutical changing positions. N.B. : The above Results were Read Back by Pipe Zamora DO to Ashley Talbot RN, and understanding confirmed on 09/14/2023 16:03:53 (ET). Electronically Signed: Pipe Zamora DO at 13:05 EDT , Physical Exam Const alert, oriented x3 and no apparent distress Constitutional Narrative: Elderly male, chronically ill-appearing, obese, otherwise sitting up comfortably in bed, conversing normally, no acute distress. General Appearance: cooperative and comfortable HEENT normocephalic, head/scalp atraumatic, hearing grossly normal bilaterally, nasal mucous membranes and turbinates normal and moist oral mucous membranes Eyes PERRL, EOMs intact bilaterally and conjunctivae normal Neck full ROM Chest inspection of chest normal Resp normal respiratory effort, normal air movement, no use of accessory muscles and clear to auscultation bilaterally Cardio regular rate, regular rhythm, no murmurs and peripheral pulses 2+ throughout GI normal to inspection, nondistended, normoactive bowel sounds, soft to palpation, non-tender and non-distended Back/Spine normal ROM Extremity normal to inspection, full ROM and no pedal edema Skin no rashes or lesions noted Neuro no focal motor deficits and no sensory deficits noted Speech: speech normal Psych mental status grossly normal Assessment & Plan Assessment/Plan (1) Thrombocytopenia: (2) Anemia: (3) Gastrointestinal bleeding: QUALIFIERS: GI bleed type/associated pathology: unspecified gastrointestinal hemorrhage type Qualified Code(s): K92.2 - Gastrointestinal hemorrhage, unspecified (4) History of end stage renal disease: PLAN: Plan Patient is a 78-year-old male who presented to [facility] ED on 09/13/2023 with worsening weakness and concern for recurrent GI bleed. 1. Acute on chronic anemia secondary to recurrent GI bleed ? Hemoglobin 6.9 on admit, down from reported hemoglobin of 9.1 on discharge from [facility] on 09/08. Hemoccult positive. Repeat hemoglobin on 09/12 of 6.3. Transfused 1 unit of packed blood cells with improvement to 7.3, but then repeat hemoglobin on 09/13 of 6.8. Second unit of blood transfused on afternoon 09/13, repeat hemoglobin 7.1 on 09/14. ? Known history of upper GI bleed in April 2023 from gastric ulcer, lower GI diverticular bleed in May 2023 and suspected recurrent lower GI bleed about 2 weeks prior to this admission. See subjective on 09/13 for further details. Nuclear medicine bleeding scan on 09/13 showed active GI hemorrhage in transverse colon. ? GI following. Planning for colonoscopy on 09/14 for further evaluation, will follow up result. Continue to trend daily CBC and transfuse for hemoglobin less than 7. Continue to hold Plavix and Eliquis, will likely need to hold both agents on discharge. 2. Severe thrombocytopenia, history of heparin-induced thrombocytopenia Platelet count 25 on admit, notably was 166 on 09/02 prior to transfer to [facility]. Has known history of HIT. Unclear if patient received heparin products at [facility] but this would seem to be most likely given his acute drop in platelet count. Repeat platelet count on 09/12 of 36. ? Platelet count improving fairly quickly, up to 71 on 09/14. Continue to monitor daily CBC. SCDs for DVT prophylaxis. Holding Plavix and Eliquis as noted above. Essential that patient receives no heparin products going forward. 3. ESRD on HD ? Follows with Dr. He with nephrology, on HD TTS. Nephrology following. HD done on 09/14, will continue with HD on normal schedule per nephrology. Continue midodrine with dialysis. 4. 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 Had left leg SFA stent on 05/20/2023 and left great toe amputation on 05/28/2023 done at [facility] with vascular surgery and podiatry. See subjective on 09/13 for further details. Unfortunately patient has shown an inability to tolerate either Plavix or Eliquis due to recurrent GI bleeding. Will need to hold both Plavix and Eliquis moving forward. Patient will need close outpatient follow-up with vascular surgery and podiatry going forward. Continue home statin. 5. Paroxysmal A-fib, history of wide-complex tachycardia ? Stable normal sinus rhythm on admit. Continue home Coreg and amiodarone. Holding home Eliquis as noted above. 6. Chronic debility ? Patient has recently been residing at the [facility] for longterm services. PT/OT/case management following. Suspect patient will be discharged back to at the [facility]. Chronic medical conditions: ? Obesity: BMI 31 on admit. Complicates hospital course, care and prognosis. ? History of HFpEF: Last echo in 06/2022 showed EF 60%, mild concentric LV hypertrophy, indeterminate diastolic function, mildly dilated RV with mild global RV systolic dysfunction, enlarged LA and RA, no significant valvular disease. Stable on admit, not in acute exacerbation. ? History of lymphoma ? History of hyperparathyroidism ? History of bladder cancer DVT prophylaxis: SCDs CODE STATUS: Full code, verified Expected disposition: Likely back to [facility] Total clinical time spent by myself addressing the patient's medical issues, reviewing all the data, and collaborating with patient's care team: 35 minutes. Charges/Coding Visit Charges Inpatient E&M: 24117 Subs Hosp L2
--- NOTE | 2023-09-15 14:37 | CASEMGMT ---
RASHID spoke with patient and confirmed his plan is to return to [facility] when medically ready. Plan: d/c back to [facility] under skilled level of care when medically ready. Abbie Jordan [employer]
[2023-09-15] MEDS: Epoetin Alfa epbx 10,000 UNITS/ML 10000 UNIT IV (14:40)
[2023-09-15] MEDS: Amiodarone 200 MG Tablet PO (14:43)
[2023-09-15] MEDS: Lactated Ringers 1,000 ML 15 ML IV (17:04)
--- NOTE | 2023-09-15 17:56 | OP.COLON_ITS ---
Patient Name: Espinoza Rizvi Procedure Date: 09/15/2023 5:16 PM Date of : 1945 Age: 78 Procedure: Colonoscopy Indications: Hematochezia Providers: Wolfgang Garay DO Medicines: Monitored Anesthesia Care Patient Profile: This is a 78 year old male. Refer to note in patient chart for documentation of history and physical. Last Colonoscopy: within the past 6 months. Complications: No immediate complications. Procedure: Pre-Anesthesia Assessment: - Prior to the procedure, a History and Physical was performed, and patient medications and allergies were reviewed. The risks and benefits of the procedure and the sedation options and risks were discussed with the patient. All questions were answered and informed consent was obtained. Patient identification and proposed procedure were verified by the physician in the pre-procedure area. Mental Status Examination: alert and oriented. Airway Examination: normal oropharyngeal airway and neck mobility. Respiratory Examination: clear to auscultation. Prophylactic Antibiotics: The patient does not require prophylactic antibiotics. Prior Anticoagulants: The patient has taken no anticoagulant or antiplatelet agents. After reviewing the risks and benefits, the patient was deemed in satisfactory condition to undergo the procedure. The anesthesia plan was to use monitored anesthesia care (MAC). Immediately prior to administration of medications, the patient was re-assessed for adequacy to receive sedatives. The heart rate, respiratory rate, oxygen saturations, blood pressure, adequacy of pulmonary ventilation, and response to care were monitored throughout the procedure. The physical status of the patient was re-assessed after the procedure. After I obtained informed consent, the scope was passed under direct vision. Throughout the procedure, the patient's blood pressure, pulse, and oxygen saturations were monitored continuously. The Colonoscope was introduced through the anus and advanced to the cecum, identified by appendiceal orifice and ileocecal valve. The colonoscopy was performed without difficulty. The patient tolerated the procedure well. The quality of the bowel preparation was inadequate. The ileocecal valve, appendiceal orifice, and rectum were photographed. Scope In: 5:37:47 PM Scope Withdrawal Time 0 hours 3 minutes 32 seconds Scope Out: 5:48:25 PM Total Procedure Duration Time 0 hours 10 minutes 38 seconds Findings: The perianal and digital rectal examinations were normal. Multiple small and large-mouthed diverticula were found in the recto-sigmoid colon, sigmoid colon, descending colon, splenic flexure and transverse colon. A large amount of stool was found in the entire colon, precluding visualization. Lavage of the area was performed using copious amounts of sterile water, resulting in incomplete clearance with continued poor visualization. Impression: - Preparation of the colon was inadequate. - Diverticulosis in the recto-sigmoid colon, in the sigmoid colon, in the descending colon, at the splenic flexure and in the transverse colon. - Stool in the entire examined colon. - No specimens collected. Recommendation: - Return patient to [facility] for ongoing care. - Full liquid diet. - Continue present medications. - No recommendation at this time regarding repeat colonoscopy. Procedure Code(s): --- Professional --- 81315, Colonoscopy, flexible; diagnostic, including collection of specimen(s) by brushing or washing, when performed (separate procedure) CPT copyright 2021 [employer]. All rights reserved. The codes documented in this report are preliminary and upon travel guide review may be revised to meet current compliance requirements. Wolfgang Garay DO 09/15/2023 5:56:02 PM This report has been signed electronically. Number of Addenda: 0 Note Initiated On: 09/15/2023 5:16 PM
--- NOTE | 2023-09-15 17:56 | OP.CCLET_ITS ---
09/15/2023 Martin Nunez [address] [place] [address] Re : Colonoscopy procedure for Espinoza Rizvi Dear Dr. Nunez This procedure was performed on August. My impressions and recommendations are as follows: Impressions : - Preparation of the colon was inadequate. - Diverticulosis in the recto-sigmoid colon, in the sigmoid colon, in the descending colon, at the splenic flexure and in the transverse colon. - Stool in the entire examined colon. - No specimens collected. Recommendations : - Return patient to [facility] for ongoing care. - Full liquid diet. - Continue present medications. - No recommendation at this time regarding repeat colonoscopy. My findings are described in the full procedure note, which is enclosed. If I can be of further assistance, please feel free to contact me at . Sincerely, Wolfgang Garay, 09/15/2023 5:56:02 PM This report has been signed electronically.
--- NOTE | 2023-09-15 20:39 | NURSING ---
Pt expressed irritation with care, stating he doesnt care what happens to him just let him . Family in the room and confused about plan of care. This RN went over todays events, explained that patient agreed to bowel prep, got through the prep and was still not clear, and refused the enemas, leading to poor colonoscopy results. Family expressed understanding, and discussed with patient that he needs to decide what he wants. Patient again stated he doesnt care what happens to him just let him . This RN educated family to come in tomorrow and discuss plan of care with the doctor so they all are on the same page. Family expressed understanding and appreciation for care.
[2023-09-15] MEDS: Atorvastatin Calcium 20 MG Tablet PO (21:42)
[2023-09-15] MEDS: Sucralfate 1 GM Tablet PO (21:42)
--- NOTE | 2023-09-15 22:17 | NURSING ---
This RN went in for vital signs and med pass, patient irritated and refusing vitals and meds, stating you can shove those up your ass. This RN educated about need for vitals, patient agreeable. This RN asked again if he wanted his medications, patient stated go ahead and give them to me, I know youre going to force me to take them anyways so go ahead. This RN educated that it is his right to refuse. Pt stating he wants to take them. Medication given, patient denies any other needs, bed exit on.
[2023-09-16] VITALS (7 sets, daily range): BP systolic 113–122; BP diastolic 55–73; PULSE 68–96; RESP 16–24; TEMP 36.2–36.4; O2SAT 95–100; BMI 30.9
[2023-09-16] MEDS: Acetaminophen 325 MG Tablet 650 MG PO (03:36)
[2023-09-16] MEDS: Sucralfate 1 GM Tablet PO ×4 (05:57→21:38)
[2023-09-16 10:05] LABS: Hemoglobin 7.4 g/dL (13.0-16.5)
[2023-09-16] MEDS: Budesonide 3 MG CAPSULE.EC 9 MG PO (10:18)
[2023-09-16] MEDS: Vitamin B Comp W-C Capsule 1 CAP PO (10:18)
[2023-09-16] MEDS: Amiodarone 200 MG Tablet PO (10:19)
[2023-09-16] MEDS: Folic Acid/Vitamin B Comp W-C 1 Capsule 1 CAP PO (10:19)
[2023-09-16] MEDS: Menthol/Lanolin/Calamine/Znox 113 GM Tube 1 APPLIC TOPICAL ×2 (10:19→21:37)
[2023-09-16] MEDS: Pantoprazole Sodium 40 MG in 0.9% Normal Saline (100mL MB+) 100 ML 330 MG IV ×2 (10:38→21:36)
[2023-09-16] MEDS: 0.9% Saline Lock 10 ML Syringe IV ×2 (10:38→21:37)
--- NOTE | 2023-09-16 13:55 | WOUNDNOTE ---
wound photo: left foot
--- NOTE | 2023-09-16 13:56 | WOUNDNOTE ---
wound photo: left lateral foot
--- NOTE | 2023-09-16 13:57 | WOUNDNOTE ---
wound photo: right heel
[2023-09-16] MEDS: Albuterol 2.5 MG/3 ML VIAL.NEB. INHALATION ×2 (15:30→23:15)
--- NOTE | 2023-09-16 18:49 | EX.PCM.PN.GI ---
Subjective Subjective Patient underwent colonoscopy yesterday for acute GI bleed. Unfortunately his prep was really poor. However no signs of active bleeding were seen. Objective Data Objective Data Vital Signs: Vital Signs Temp Pulse Resp BP Pulse Ox O2 Del Method O2 Flow Rate 97.6 F L 79 18 122/73 H 96 Nasal Cannula 2 09/16/23 16:23 09/16/23 16:23 09/16/23 16:23 09/16/23 16:23 09/16/23 16:23 09/16/23 16:23 09/16/23 16:23 Oxygen Flow Rate (L/min) 2 Oxygen Delivery Method Nasal Cannula Weight: 209 lb 14.081 oz Body Mass Index (BMI) 30.9 Intake & Output: Intake and Output for Last 24 Hours 09/14/23 09/15/23 09/16/23 23:59 23:59 23:59 Intake Total 460 / 460 471 / 471 940 / 940 Output Total 0 / 0 3500 / 3500 0 / 0 Balance 460 / 460 -3029 / -3029 940 / 940 Lab / Micro Data 09/16/23 09:57 09/15/23 03:08 Labs: Laboratory Results - last 24 hr 09/16/23 09:57: Hgb 7.4 L, Hct 24.0 L Micro: Microbiology 09/13/23 16:01 Stool Stool Occult Blood ([facility]) - Final Occult Blood Positive Physical Exam Const alert, oriented x3 and no apparent distress Constitutional Narrative: Elderly male, chronically ill-appearing, obese, otherwise sitting up comfortably in bed, conversing normally, no acute distress. General Appearance: cooperative and comfortable HEENT normocephalic, head/scalp atraumatic, hearing grossly normal bilaterally, nasal mucous membranes and turbinates normal and moist oral mucous membranes Eyes PERRL, EOMs intact bilaterally and conjunctivae normal Neck full ROM Chest inspection of chest normal Resp normal respiratory effort, normal air movement, no use of accessory muscles and clear to auscultation bilaterally Cardio regular rate, regular rhythm, no murmurs and peripheral pulses 2+ throughout GI normal to inspection, nondistended, normoactive bowel sounds, soft to palpation, non-tender and non-distended Back/Spine normal ROM Extremity normal to inspection, full ROM and no pedal edema Skin no rashes or lesions noted Neuro no focal motor deficits and no sensory deficits noted Speech: speech normal Psych mental status grossly normal Assessment & Plan Assessment/Plan (1) Thrombocytopenia: (2) Anemia: (3) Gastrointestinal bleeding: QUALIFIERS: GI bleed type/associated pathology: unspecified gastrointestinal hemorrhage type Qualified Code(s): K92.2 - Gastrointestinal hemorrhage, unspecified (4) History of end stage renal disease: PLAN: Plan Patient is a 78-year-old male who presented to [facility] ED on 09/13/2023 with worsening weakness and concern for recurrent GI bleed. Acute on chronic anemia secondary to recurrent GI bleed ? Hemoglobin 6.9 on admit, down from reported hemoglobin of 9.1 on discharge from [facility] on 09/08. Hemoccult positive. Repeat hemoglobin on 09/12 of 6.3. Transfused 1 unit of packed blood cells with improvement to 7.3, but then repeat hemoglobin on 09/13 of 6.8. Second unit of blood transfused on afternoon 09/13, repeat hemoglobin 7.1 on 09/14. ? Known history of upper GI bleed in April 2023 from gastric ulcer, lower GI diverticular bleed in May 2023 and suspected recurrent lower GI bleed about 2 weeks prior to this admission. See subjective on 09/13 for further details. Nuclear medicine bleeding scan on 09/13 showed active GI hemorrhage in transverse colon. ? Hemoglobin seems to be stable at this time. I would give consideration to holding Eliquis therapy as he is very high risk for recurrent GI bleeding. Severe thrombocytopenia, history of heparin-induced thrombocytopenia Platelet count 25 on admit, notably was 166 on 09/02 prior to transfer to [facility]. Has known history of HIT. Unclear if patient received heparin products at [facility] but this would seem to be most likely given his acute drop in platelet count. Repeat platelet count on 09/12 of 36. ? Platelet count improving fairly quickly, up to 71 on 09/14. Continue to monitor daily CBC. SCDs for DVT prophylaxis. Holding Plavix and Eliquis as noted above. Essential that patient receives no heparin products going forward. Charges/Coding Visit Charges Inpatient E&M: 38403 [facility] Hosp L3
--- NOTE | 2023-09-16 20:26 | PN.HOSP_ITS ---
Reason for Visit Reason for Visit: Diagnoses Anemia, unspecified (09/13/23) Thrombocytopenia, unspecified (09/13/23) Gastrointestinal hemorrhage, unspecified (09/13/23) retirement (current) use of anticoagulants (09/13/23) Personal history of other diseases of urinary system (09/13/23) Subjective Subjective Patient was seen and examined today, I talked with gastroenterology who stated that they were not going to do any more procedures on the patient during this admission unless he has active bleeding, they were not able to complete a colonoscopy due to poor prep but did not see any evidence of bleeding in the colon, the bleeding scan showed a possible area in the transverse colon that was a site of bleeding. I had the patient's son and [id number] come in today and I talked to the patient in the presence of his family, patient still wants full care and remains a full code at this time. I recommended that we stop his Eliquis, I talked to his PCPs office who confirmed that the patient had arterial stents placed this year and it was recommended that he remain on Plavix. I think at this time due to his series of several GI bleeds, that the patient's stop his Eliquis and stay on Plavix-he understands that he is at high risk for stroke but he is also at risk for having a massive GI bleed. Patient agrees with stopping the Eliquis and staying on Plavix. Due to the patient's anemia, I have elected to keep the patient here and transfuse 1 more unit of blood which will be given during dialysis tomorrow. Objective Data Objective Data Vital Signs: Vital Signs Temp Pulse Resp BP Pulse Ox O2 Del Method O2 Flow Rate 97.6 F L 79 18 122/73 H 96 Nasal Cannula 2 09/16/23 16:23 09/16/23 16:23 09/16/23 16:23 09/16/23 16:23 09/16/23 16:23 09/16/23 16:23 09/16/23 16:23 Oxygen Flow Rate (L/min) 2 Oxygen Delivery Method Nasal Cannula Weight: 95.2 kg Body Mass Index (BMI) 30.9 Intake & Output: Intake and Output for Last 24 Hours 09/14/23 09/15/23 09/16/23 23:59 23:59 23:59 Intake Total 460 / 460 471 / 471 940 / 940 Output Total 0 / 0 3500 / 3500 0 / 0 Balance 460 / 460 -3029 / -3029 940 / 940 Lab / Micro Data 09/16/23 09:57 09/15/23 03:08 Labs: Laboratory Results - last 24 hr 09/16/23 09:57: Hgb 7.4 L, Hct 24.0 L Micro: Microbiology 09/13/23 16:01 Stool Stool Occult Blood (ROSEMARY) - Final Occult Blood Positive Physical Exam Const alert, oriented x3 and no apparent distress Constitutional Narrative: Patient appears older than stated age General Appearance: cooperative, well kempt and well developed Orientation / Consciousness: awake, oriented to person and oriented to place HEENT normocephalic, head/scalp atraumatic and moist oral mucous membranes Eyes PERRL, EOMs intact bilaterally and conjunctivae normal Neck supple, no JVD, thyroid normal and no carotid bruits General: trachea midline Resp normal respiratory effort, no retractions, no use of accessory muscles and clear to auscultation bilaterally Auscultation: Negative for rales, rhonchi or wheezes Cardio S1 normal heart sound, S2 normal heart sound, no murmurs, no rub and no gallops Cardio Narrative: Heart rate and rhythm is irregular GI normal to inspection, nondistended, normoactive bowel sounds, soft to palpation, non-tender and non-distended Extremity no clubbing, cyanosis or edema Skin no rashes or lesions noted General Skin Exam: no breakdown Neuro CN's II-XII intact bilaterally, moves all extremities, no focal motor deficits and no sensory deficits noted Sensorium / Orientation: awake, alert, oriented to person and oriented to place Speech: speech normal Psych affect normal Assessment & Plan Assessment/Plan (1) ESRD (end stage renal disease) on dialysis: PLAN: Plan 1. Chronic GI bleed with acute anemia-patient will receive 1 unit of packed red blood cells tomorrow during dialysis, his Eliquis will not be restarted, patient will remain on Plavix starting tomorrow morning #2 end-stage renal disease on dialysis-patient will be dialyzed tomorrow #3 chronic atrial fibrillation-again patient will be at risk for stroke when he is off Eliquis, however, patient has persistent chronic GI bleeding and when he was at [facility] recently they did not confirm the site of bleeding, patient is at high risk for continuing to bleed, patient and family know the risks of going off Eliquis and they are wanting to accept it. #4 chronic debility-patient will return to his skilled care facility when he is medically stable Total clinical time spent by myself addressing the patient's medical issues, reviewing all of his data, and collaborating with patient's care team: 50 minutes Charges/Coding Visit Charges Inpatient E&M: 06488 [facility] H[facility] L3
[2023-09-16] MEDS: Atorvastatin Calcium 20 MG Tablet PO (21:38)
[2023-09-17] VITALS (22 sets, daily range): BP systolic 53–205; BP diastolic 50–88; PULSE 63–84; RESP 14–26; TEMP 36.1–37.2; O2SAT 93–100; BMI 31.7
[2023-09-17] MEDS: MELATONIN 3 MG TABLET PO ×2 (00:31→21:24)
[2023-09-17] MEDS: Sucralfate 1 GM Tablet PO ×4 (05:51→20:48)
[2023-09-17] MEDS: Midodrine HCl 5 MG Tablet 10 MG PO (07:40)
[2023-09-17] MEDS: 0.9% Normal Saline 1,000 ML IV.SOLN. 1000 ML OPERA.SITE (08:20)
[2023-09-17] MEDS: PureFlow B 2K Dialysis Soln 1 BAG 6 BAG PF (08:20)
--- NOTE | 2023-09-17 09:20 | PCM.PN.REN ---
Subjective Subjective seen on dialysis, proceeding without incident. BP stable. Attempt 2.5L fluid removal as tolerated. Objective Data Objective Data Vital Signs: Vital Signs Temp Pulse Resp BP Pulse Ox O2 Del Method O2 Flow Rate 97.9 F 80 18 151/68 H 100 Nasal Cannula 2 09/17/23 07:38 09/17/23 08:35 09/17/23 08:35 09/17/23 08:35 09/17/23 08:35 09/17/23 08:35 09/17/23 08:35 Oxygen Flow Rate (L/min) 2 Oxygen Delivery Method Nasal Cannula Weight: 97.5 kg Body Mass Index (BMI) 31.7 Intake & Output: Intake and Output for Last 24 Hours 09/15/23 09/16/23 09/17/23 23:59 23:59 23:59 Intake Total 471 / 471 1490 / 1490 100 / 100 Output Total 3500 / 3500 0 / 0 0 / 0 Balance -3029 / -3029 1490 / 1490 100 / 100 Lab / Micro Data 09/16/23 09:57 09/15/23 03:08 Labs: Laboratory Results - last 24 hr 09/16/23 09:57: Hgb 7.4 L, Hct 24.0 L 09/17/23 07:39: Blood Type O POSITIVE, Antibody Screen NEGATIVE, Crossmatch See Detail Micro: Microbiology 09/13/23 16:01 Stool Stool Occult Blood (ROSEMARY) - Final Occult Blood Positive Physical Exam Const alert and oriented x3 Resp clear to auscultation bilaterally Cardio Rhythm: abnormal rhythm irregularly irregular GI non-tender and non-distended Auscultation: normoactive bowel sounds Palpation: soft Extremity no clubbing, cyanosis or edema General Extremity: AV fistula Skin Skin Narrative: ecchymosis over AVF from old infiltration Assessment & Plan Assessment/Plan (1) ESRD (end stage renal disease) on dialysis: PLAN: currently receiving dialysis. TTS schedule. Fluid removal as tolerated (2) Gastrointestinal bleeding: QUALIFIERS: GI bleed type/associated pathology: unspecified gastrointestinal hemorrhage type Qualified Code(s): K92.2 - Gastrointestinal hemorrhage, unspecified PLAN: s/p prbc, hgb 7.4g today (3) Thrombocytopenia: PLAN: improving (4) Chronic anticoagulation: PLAN: hold d/t GI bleed (5) Hypotension: PLAN: midodrine with dialysis (6) Atrial fibrillation: QUALIFIERS: Atrial fibrillation type: unspecified chronic Qualified Code(s): I48.20 - Chronic atrial fibrillation, unspecified
[2023-09-17] MEDS: Epoetin Alfa epbx 10,000 UNITS/ML 10000 UNIT IV (11:38)
[2023-09-17] MEDS: Budesonide 3 MG CAPSULE.EC 9 MG PO (12:23)
[2023-09-17] MEDS: Folic Acid/Vitamin B Comp W-C 1 Capsule 1 CAP PO (12:24)
[2023-09-17] MEDS: Amiodarone 200 MG Tablet PO (12:24)
[2023-09-17] MEDS: Menthol/Lanolin/Calamine/Znox 113 GM Tube 1 APPLIC TOPICAL ×2 (12:25→20:47)
[2023-09-17] MEDS: Vitamin B Comp W-C Capsule 1 CAP PO (12:25)
[2023-09-17] MEDS: Pantoprazole Sodium 40 MG in 0.9% Normal Saline (100mL MB+) 100 ML 330 MG IV ×2 (12:53→20:47)
[2023-09-17 14:03] LABS: Absolute Lymphocyte Count 0.44 X10^3/uL (0.83-4.51); Absolute Neutrophil Count 3.9 X10^3/uL (2.0-7.7); Basophil# 0.01 X10^3/uL; Basophil% 0.2 % (0-1); Differential Indicated SCAN CRITERIA MET; Eosinophil# 0.08 X10^3/uL; Eosinophils% 1.7 % (0-5); Hematocrit 24.3 % (40-54); Hemoglobin 7.5 g/dL (13.0-16.5); Lymphocyte # 0.44 X10^3/ul (0.83-4.51); Lymphocyte % 9.3 % (19-41); Mean Corp Hgb Conc 30.9 g/dL (32-36); Mean Corpuscular Hgb 28.4 pg (27.0-32.0); Mean Platelet Vol. 10.8 fl (6.2-12.0); Monocyte% 6.3 % (0-10); NRBC Flagged by Analyzer 0 % (0-5); Neutrophil # 3.88 X10^3/uL (2.7-7.7); Neutrophil % 81.9 % (47-70); POSITIVE COUNT YES; POSITIVE DIFFERENTIAL YES; Platelet Count 70 K/mm3 (150-450); RBC Distribution Width CV 17.2 % (11.6-14.6); RBC Distribution Width SD 57.5 fl (35.1-43.9); Red Blood Count 2.64 M/mm3 (4.6-6.2); White Blood Count 4.7 K/mm3 (4.4-11.0)
[2023-09-17 14:19] LABS: Anisocytosis 1+
[2023-09-17 14:20] LABS: Platelet Estimate MOD DEC (ADEQ)
--- NOTE | 2023-09-17 14:39 | PCM.TXEXTCAR ---
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 Dressing Change: Adaptic left lateral foot: Wound Type: Pressure Injury Dressing Change: dry well padded dressing Therapies Weight Bearing: Non weight bearing (Contact the patient's surgeon who performed his toe amputation to verify that the patient remains nonweightbearing) Physical Therapy: Eval and Treat Occupational Therapy: Eval and Treat Problem/Diagnosis (1) ESRD (end stage renal disease) on dialysis: Status: Acute Code(s): N18.6 - End stage renal disease; Z99.2 - Dependence on renal dialysis (2) Gastrointestinal bleeding: Status: Acute Code(s): K92.2 - Gastrointestinal hemorrhage, unspecified (3) Thrombocytopenia: Status: Acute Code(s): D69.6 - Thrombocytopenia, unspecified (4) Chronic anticoagulation: Status: Acute 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 Chronic GI bleed with acute anemia-patient will receive 1 unit of packed red blood cells tomorrow during dialysis, his Eliquis will not be restarted, patient will remain on Plavix starting tomorrow morning #2 end-stage renal disease on dialysis-patient will be dialyzed tomorrow #3 chronic atrial fibrillation-again patient will be at risk for stroke when he is off Eliquis, however, patient has persistent chronic GI bleeding and when he was at [facility] recently they did not confirm the site of bleeding, patient is at high risk for continuing to bleed, patient and family know the risks of going off Eliquis and they are wanting to accept it. #4 chronic debility-patient will return to his skilled care facility when he is medically stable Total clinical time spent by myself addressing the patient's medical issues, reviewing all of his data, and collaborating with patient's care team: 50 minutes Allergies/Procedures Done in Hospital Allergies Iodinated Contrast Media Allergy (Intermediate, Verified 08/31/23 11:38) KIDNEY FAILURE enoxaparin [From Lovenox] Allergy (Verified 08/31/23 11:38) Other HIT heparin Allergy (Verified 08/31/23 11:38) Other HIT aspirin Adverse Reaction (Verified 08/31/23 11:38) Other BLEEDING Procedures: Blood transfusion and Colonoscopy Type of Care/Length of Stay Estimated LOS: Convalescent Care Less Than 30 days Type of Care Needed: Skilled Rehab Potential: Good Prognosis: Good Additional Orders/Day of Discharge H&P will serve as current which was dated: 09/13/23 Day of Discharge: 09/18/23 Dietary and Speech Recommendations Dietitian Recommendations/Changes: Recommend advance diet as tolerated to Renal after NPO at midnight tonite. ONS as needed if PO fails at meals. Trend weights closely ? accuracy of 82.6 Kg this day. Discharge Plan Admission Admit Date/Time: 09/13/23 19:42 Primary Reason for Your Visit: Blood loss anemia secondary to suspected GI bleed, site undetermined Attending Provider: River Mejia Primary Care Provider: Martin Nunez Consulting Providers: Isaias Mitchell; Sonia He; Wolfgang Garay; Gavino Buenrostro Instructions Additional Instructions / Restrictions: It is recommended that if the patient has recurrent GI bleeding, he be transferred to a tertiary facility-such as [facility], [facility], or [facility]-these facilities will have interventional radiology availability to perform angiograms if necessary. It is recommended that the patient not be placed on full anticoagulation due to his past history of GI bleeds Contact the patient's surgeon who did his foot surgery to see if the patient can be progressed from nonweightbearing to weightbearing with a walker Discharge Orders/Prescriptions Prescriptions: New acetaminophen 325 mg Tablet 650 mg PO Q6H PRN PRN (Reason: Pain 1-10 Or Fever>100.7) Qty: 0 0RF albuterol sulfate 2.5 mg /3 mL (0.083 %) Solution For Nebulization 2.5 mg inhalation Q4H PRN (Reason: bronchospasm) Qty: 0 0RF menthol-zinc oxide [Calmoseptine] 0.44-20.6 % Ointment 1 applic topical BID Qty: 0 0RF Protocol: *Topical Application Instructions APPLICATION INSTRUCTIONS: apply to affected areas Ensure Plus High Protein 0.08 gram-1.5 kcal/mL Liquid 120 ml PO TIDCM Qty: 0 0RF Continued Velphoro 500 mg tablet,chewable 500 mg PO TIDCM budesonide 3 mg capsule,delayed,extend.release 9 mg PO DAILY Bibiana-Leoncio 0.8 mg tablet 1 tab PO DAILY clopidogrel 75 mg Tablet 75 mg PO DAILY Qty: 0 0RF midodrine 5 mg tablet 5 mg PO TUTHSA Rx Instructions: GIVE PRIOR TO DIALYSIS atorvastatin 20 mg tablet 20 mg PO QHS bisacodyl 10 mg suppository 10 mg MS QHS PRN (Reason: constipation) carvedilol 3.125 mg tablet 3.125 mg PO BID mineral oil [Fleet Mineral Oil] Enema 118 ml MS DAILY PRN (Reason: constipation) Rx Instructions: USE IF NO BM 8 HOURS AFTER BISACODYL SUPPOSITORY. IF NO BM WITHIN 1 HOUR OF ENEMA, NOTIFY MD. magnesium hydroxide [Milk of Magnesia] 400 mg/5 mL suspension 30 ml PO DAILY PRN (Reason: constipation) Rx Instructions: ADMINISTER ONCE DAILY IF NO BM IN 3 DAYS polyethylene glycol 3350 [ClearLax] 17 gram/dose powder 17 g PO DAILY PRN (Reason: constipation) amiodarone 200 mg tablet 200 mg PO DAILY sucralfate 1 gram Tablet 1 g PO 4X/DAY Rx Instructions: GIVE 1 TABLET BY MOUTH BEFORE MEAL AND AT BEDTIME pantoprazole 40 mg Tablet,Delayed Release (Dr/Ec) 40 mg PO BID Discontinued Eliquis 2.5 mg tablet 2.5 mg PO BID Hold Instructions: Hold for 5 days. Referrals / Follow Up: Martin Nunez DO [Primary Care Provider] - Disposition Disposition (needs filled in before D/C Order can be placed): Nursing Home Facility (2) Gastrointestinal bleeding Qualifiers: GI bleed type/associated pathology: unspecified gastrointestinal hemorrhage type Qualified Code(s): K92.2 - Gastrointestinal hemorrhage, unspecified (6) Atrial fibrillation Qualifiers: Atrial fibrillation type: unspecified chronic Qualified Code(s): I48.20 - Chronic atrial fibrillation, unspecified
--- NOTE | 2023-09-17 14:45 | PCM.PN.HOSP ---
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 If he is stable at that time he could be sent back to his [place] [facility] facility tomorrow. Objective Data Objective Data Vital Signs: Vital Signs Temp Pulse Resp BP Pulse Ox O2 Del Method O2 Flow Rate 98.2 F 82 20 H 128/71 H 99 Nasal Cannula 2 09/17/23 12:50 09/17/23 12:50 09/17/23 12:50 09/17/23 12:50 09/17/23 12:50 09/17/23 12:50 09/17/23 12:50 Oxygen Flow Rate (L/min) 2 Oxygen Delivery Method Nasal Cannula Weight: 97.5 kg Body Mass Index (BMI) 31.7 Intake & Output: Intake and Output for Last 24 Hours 09/15/23 09/16/23 09/17/23 23:59 23:59 23:59 Intake Total 471 / 471 1490 / 1490 570 / 570 Output Total 3500 / 3500 0 / 0 700 / 700 Balance -3029 / -3029 1490 / 1490 -130 / -130 Lab / Micro Data 09/17/23 13:52 09/15/23 03:08 Labs: Laboratory Results - last 24 hr 09/17/23 07:39: Blood Type O POSITIVE, Antibody Screen NEGATIVE, Crossmatch See Detail 09/17/23 13:52: WBC 4.7, RBC 2.64 L, Hgb 7.5 L, Hct 24.3 L, MCV 92.0, MCH 28.4, MCHC 30.9 L, RDW Std Deviation 57.5 H, RDW Coeff of Lencho 17.2 H, Plt Count 70 L, MPV 10.8, Immature Gran % (Auto) 0.600, Neut % (Auto) 81.9 H, Lymph % (Auto) 9.3 L, [place] % (Auto) 6.3, Eos % (Auto) 1.7, Baso % (Auto) 0.2, Absolute Neuts (auto) 3.9, Absolute Lymphs (auto) 0.44 L, Nucleated RBC % 0, Platelet Estimate MOD DEC, Anisocytosis 1+ Micro: Microbiology 09/13/23 16:01 Stool Stool Occult Blood (ROSEMARY) - Final Occult Blood Positive Physical Exam Narrative alert, oriented x3 and no apparent distress Constitutional Narrative: Patient appears older than stated age General Appearance: cooperative, well kempt and well developed Orientation / Consciousness: awake, oriented to person and oriented to place HEENT normocephalic, head/scalp atraumatic and moist oral mucous membranes Eyes PERRL, EOMs intact bilaterally and conjunctivae normal Neck supple, no JVD, thyroid normal and no carotid bruits General: trachea midline Resp normal respiratory effort, no retractions, no use of accessory muscles and clear to auscultation bilaterally Auscultation: Negative for rales, rhonchi or wheezes Cardio S1 normal heart sound, S2 normal heart sound, no murmurs, no rub and no gallops Cardio Narrative: Heart rate and rhythm is irregular GI normal to inspection, nondistended, normoactive bowel sounds, soft to palpation, non-tender and non-distended Extremity no clubbing, cyanosis or edema, there are partial amputations of the patient's left great toe and second toe along with healing eschars Skin no rashes or lesions noted General Skin Exam: no breakdown Neuro CN's II-XII intact bilaterally, moves all extremities, no focal motor deficits and no sensory deficits noted Sensorium / Orientation: awake, alert, oriented to person and oriented to place Speech: speech normal Psych affect normal Assessment & Plan Assessment/Plan (1) Gastrointestinal bleeding: QUALIFIERS: GI bleed type/associated pathology: unspecified gastrointestinal hemorrhage type Qualified Code(s): K92.2 - Gastrointestinal hemorrhage, unspecified (2) ESRD (end stage renal disease) on dialysis: (3) Thrombocytopenia: (4) Chronic anticoagulation: (5) Hypotension: (6) Atrial fibrillation: QUALIFIERS: Atrial fibrillation type: unspecified chronic Qualified Code(s): I48.20 - Chronic atrial fibrillation, unspecified PLAN: Plan 1. Chronic GI bleed with acute anemia-patient will receive 1 unit of packed red blood cells again today, CBC will be rechecked tomorrow #2 end-stage renal disease on dialysis-patient had dialysis today #3 chronic atrial fibrillation-again patient will be at risk for stroke when he is off Eliquis, however, patient has persistent chronic GI bleeding and when he was at [facility] recently they did not confirm the site of bleeding, patient is at high risk for continuing to bleed, patient and family know the risks of going off Eliquis and they are willing to accept it.. #4 chronic debility-patient will return to his skilled care facility when he is medically stable #5 peripheral vascular disease-patient supposed to be on Plavix, I will restart it today Total clinical time spent by myself addressing the patient's medical issues, reviewing all of his data, and collaborating with patient's care team: 35 minutes Charges/Coding Visit Charges Inpatient E&M: 40078 Subs Hosp L2
[2023-09-17] MEDS: Clopidogrel Bisulfate 75 MG Tablet PO (15:44)
[2023-09-17 15:45] LABS: Hematocrit 24.1 % (40-54); Hemoglobin 7.7 g/dL (13.0-16.5)
[2023-09-17] MEDS: 0.9% Saline Lock 10 ML Syringe IV (20:47)
[2023-09-17] MEDS: Atorvastatin Calcium 20 MG Tablet PO (20:48)
[2023-09-17] MEDS: Albuterol 2.5 MG/3 ML VIAL.NEB. INHALATION (22:50)
[2023-09-18 03:09] VITALS: BP 131/71; PULSE 87; RESP 18; TEMP 36.5; O2SAT 100
[2023-09-18 03:41] VITALS: BMI 31.9
[2023-09-18] MEDS: Albuterol 2.5 MG/3 ML VIAL.NEB. INHALATION (04:12)
[2023-09-18 04:13] VITALS: PULSE 76; RESP 18
[2023-09-18 04:14] VITALS: O2SAT 100
[2023-09-18 06:00] VITALS: BMI 32.1
[2023-09-18] MEDS: Sucralfate 1 GM Tablet PO (06:18)
[2023-09-18 08:24] LABS: Absolute Lymphocyte Count 0.47 X10^3/uL (0.83-4.51); Absolute Neutrophil Count 4.6 X10^3/uL (2.0-7.7); Basophil# 0.02 X10^3/uL; Basophil% 0.4 % (0-1); Eosinophil# 0.07 X10^3/uL; Eosinophils% 1.3 % (0-5); Hematocrit 26.9 % (40-54); Hemoglobin 8.5 g/dL (13.0-16.5); Lymphocyte # 0.47 X10^3/ul (0.83-4.51); Lymphocyte % 8.5 % (19-41); Mean Corp Hgb Conc 31.6 g/dL (32-36); Mean Corpuscular Hgb 28.4 pg (27.0-32.0); Mean Platelet Vol. 10.1 fl (6.2-12.0); Monocyte# 0.38 X10^3/uL; Monocyte% 6.9 % (0-10); NRBC Flagged by Analyzer 0.4 % (0-5); Neutrophil # 4.57 X10^3/uL (2.7-7.7); Neutrophil % 82.4 % (47-70); POSITIVE COUNT YES; POSITIVE DIFFERENTIAL YES; Platelet Count 87 K/mm3 (150-450); RBC Distribution Width CV 17.8 % (11.6-14.6); RBC Distribution Width SD 56.2 fl (35.1-43.9); Red Blood Count 2.99 M/mm3 (4.6-6.2); White Blood Count 5.5 K/mm3 (4.4-11.0)
[2023-09-18 08:29] LABS: Differential Indicated SCAN CRITERIA MET
[2023-09-18 08:32] VITALS: O2SAT 98
--- NOTE | 2023-09-18 09:00 | DS.PCM_ITS ---
Providers Date of Admission: 09/13/23 Date of Discharge: 09/18/23 Primary Care Physician: Dr. 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 Comment: Reason for Consult:: left foot wound Reason For Visit: RECURRENT GI BLEED WITH ACUTE BLOOD LOSS ANEMIA Diagnosis Discharge Diagnosis (1) ESRD (end stage renal disease) on dialysis: Status: Acute Code(s): N18.6 - End stage renal disease; Z99.2 - Dependence on renal dialysis (2) Gastrointestinal bleeding: Status: Acute Code(s): K92.2 - Gastrointestinal hemorrhage, unspecified Qualifiers: GI bleed type/associated pathology: unspecified gastrointestinal hemorrhage type Qualified Code(s): K92.2 - Gastrointestinal hemorrhage, unspecified (3) Thrombocytopenia: Status: Acute Code(s): D69.6 - Thrombocytopenia, unspecified (4) Chronic anticoagulation: Status: Acute Code(s): Z79.01 - shelter (current) use of anticoagulants (5) Hypotension: Status: Acute Code(s): I95.9 - Hypotension, unspecified (6) Atrial fibrillation: Status: Acute Code(s): I48.91 - Unspecified atrial fibrillation Qualifiers: Atrial fibrillation type: unspecified chronic Qualified Code(s): I48.20 - Chronic atrial fibrillation, unspecified Plan 1. Chronic GI bleed with acute anemia-patient will receive 1 unit of packed red blood cells tomorrow during dialysis, his Eliquis will not be restarted, patient will remain on Plavix starting tomorrow morning #2 end-stage renal disease on dialysis-patient will be dialyzed tomorrow #3 chronic atrial fibrillation-again patient will be at risk for stroke when he is off Eliquis, however, patient has persistent chronic GI bleeding and when he was at [facility] recently they did not confirm the site of bleeding, patient is at high risk for continuing to bleed, patient and family know the risks of going off Eliquis and they are wanting to accept it. #4 chronic debility-patient will return to his skilled care facility when he is medically stable #5 thrombocytopenia-etiology unclear #6 peripheral vascular disease-patient is on Plavix due to a recent stent that was placed in his leg Total clinical time spent by myself addressing the patient's medical issues, reviewing all of his data, and collaborating with patient's care team: 50 minutes Medications at Discharge Home Medications sucroferric oxyhydroxide 500 mg chewable tablet (Velphoro) 500 mg PO TIDCM anemia 03/01/23 budesonide 3 mg capsule,delayed,extended release 9 mg PO DAILY stomach 06/16/23 vitamin B complex-vitamin C-folic acid 0.8 mg tablet (Bibiana-Leoncio) 1 tab PO DAILY supplement 06/16/23 clopidogrel 75 mg tablet 75 mg PO DAILY #0 tabs 06/18/23 midodrine 5 mg tablet 5 mg PO TUTHSA blood pressure-dialysis 07/28/23 amiodarone 200 mg tablet 200 mg PO DAILY heart rate 08/31/23 atorvastatin 20 mg tablet 20 mg PO QHS CHOLESTEROL 08/31/23 bisacodyl 10 mg rectal suppository 10 mg MA QHS PRN constipation 08/31/23 carvedilol 3.125 mg tablet 3.125 mg PO BID HIGH BLOOD PRESSURE 08/31/23 magnesium hydroxide 400 mg/5 mL oral suspension (Milk of Magnesia) 30 ml PO DAILY PRN constipation 08/31/23 mineral oil (Fleet Mineral Oil enema) 118 ml MA DAILY PRN constipation 08/31/23 pantoprazole 40 mg tablet,delayed release 40 mg PO BID reflux 08/31/23 polyethylene glycol 3350 17 gram/dose oral powder (ClearLax) 17 g PO DAILY PRN constipation 08/31/23 sucralfate 1 gram tablet 1 g PO 4X/DAY reflux 08/31/23 acetaminophen 325 mg tablet 650 mg (2 x 325 mg) PO Q6H PRN PRN Pain 1-10 Or Fever>100.7 #0 tabs 09/18/23 albuterol sulfate 2.5 mg/3 mL (0.083 %) solution for nebulization 2.5 mg (3 mL) inhalation Q4H PRN bronchospasm #0 mL 09/18/23 food supplemt, lactose-reduced 0.08 gram-1.5 kcal/mL oral liquid (Ensure Plus High Protein) 120 ml PO TIDCM #0 mL 09/18/23 menthol 0.44 %-zinc oxide 20.6 % topical ointment (Calmoseptine) 1 applic to pical BID #0 grams 09/18/23 Hospital Course Operations None Procedures Blood transfusion and Colonoscopy Summary of Care Provided Minutes Spent on Discharge: 33 Hospital Course: This 78-year-old white male was seen in the emergency room at [facility], he had lab work done at dialysis-patient is currently in skilled nu rsing at the [place], his hemoglobin was low at 6.9 and his platelet count was 30,000. Patient complained of generalized weakness, patient had recently been seen at [facility] for gastrointestinal bleeding and had endoscopic procedures without ascertaining the etiology of the bleeding. Patient was taking Eliquis due to atrial fibrillation and he was on Plavix due to a stent that had been placed recently in his leg. Labs done in the emergency room showed a hemoglobin of 6.3, platelet count was 25,000. Chemistry profile showed a creatinine of 5.6 and a BUN of 74. Patient was admitted to PCU, he received blood transfusion and he was seen by gastroenterology who performed a colonoscopy, patient was not prepped adequately for a complete colonoscopy, there was no blood however seen in the colon. Gastroenterology did not feel the patient needed to be reprepped for a colonoscopy, he was seen by nephrology due to his chronic dialysis needs and he underwent dialysis in the hospital as well as transfusion of a total of 5 units of packed red blood cells. Conversations were carried out with the patient and the patient's family, patient wanted his son to decide his CODE STATUS and the son refused saying the patient was capable of making decision. Patient wanted full measures. He did not have obvious GI bleeding during his hospital stay. On 09/18/2023, patient was seen and examined: On examination he appeared in no distress, patient appeared older than his stated age. Vital signs as documented. Skin warm and dry and without overt rashes. Neck without JVD, neck was supple, trachea midline, thyroid was normal. Lungs clear bilaterally, normal air movement was noted. Heart exam notable for regular rhythm, normal sounds and absence of murmurs, rubs or gallops. Abdomen unremarkable and without evidence of organomegaly, masses, or abdominal aortic enlargement. Bowel sounds are present, abdomen is not distended. Extremities nonedematous, no cyanosis was noted, no clubbing was noted. 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 Neuro: Cranial nerves II through XII are grossly intact, no focal motor deficits were noted, sensation to light touch and pinprick intact, motor exam 5/5 throughout. Psych: Patient is alert and oriented x3, he does not appear anxious or depressed, he does not appear agitated. I had lengthy discussions with the patient and the patient's family, they both agreed that the patient should go off Eliquis, it was postulated that the Eliquis was causing a problem with the patient's blood count dropping, the etiology of thrombocytopenia was unknown, by the time the patient was discharged on 09/18/2023, patient's platelet count had increased to 87,000. Patient had to be maintained on Plavix due to his stent in his leg. I advised the patient that if [facility], they should send him to a tertiary facility where they had interventional radiology capability to perhaps do an angiogram to determine the site of the bleed, patient was okay with this approach. Patient's family also agreed. On 09/18/2023, patient was seen and examined and felt to be in stable condition to return to the [facility] for continued skilled care. Weight / BMI Weight Weight: 98.6 kg Body Mass Index (BMI) 32.1 ABG / Lab / Microbiology Data 09/18/23 08:10 09/15/23 03:08 Laboratory: Laboratory Results - last 24 hr 09/17/23 07:39: Blood Type O POSITIVE, Antibody Screen NEGATIVE, Crossmatch See Detail 09/17/23 08:10: Crossmatch See Detail 09/17/23 13:52: WBC 4.7, RBC 2.64 L, Hgb 7.5 L, Hct 24.3 L, MCV 92.0, MCH 28.4, MCHC 30.9 L, RDW Std Deviation 57.5 H, RDW Coeff of Lencho 17.2 H, Plt Count 70 L, MPV 10.8, Immature Gran % (Auto) 0.600, Neut % (Auto) 81.9 H, Lymph % (Auto) 9.3 L, Dickson % (Auto) 6.3, Eos % (Auto) 1.7, Baso % (Auto) 0.2, Absolute Neuts (auto) 3.9, Absolute Lymphs (auto) 0.44 L, Nucleated RBC % 0, Platelet Estimate MOD DEC, Anisocytosis 1+ 09/17/23 15:35: Hgb 7.7 L, Hct 24.1 L 09/18/23 08:10: WBC 5.5, RBC 2.99 L, Hgb 8.5 L, Hct 26.9 L, MCV 90.0, MCH 28.4, MCHC 31.6 L, RDW Std Deviation 56.2 H, RDW Coeff of Lencho 17.8 H, Plt Count 87 L, MPV 10.1, Immature Gran % (Auto) 0.500, Neut % (Auto) 82.4 H, Lymph % (Auto) 8.5 L, Dickson % (Auto) 6.9, Eos % (Auto) 1.3, Baso % (Auto) 0.4, Absolute Neuts (auto) 4.6, Absolute Lymphs (auto) 0.47 L, Nucleated RBC % 0.4 Microbiology: Microbiology 09/13/23 16:01 Stool Stool Occult Blood (ROSEMARY) - Final Occult Blood Positive Meaningful Use Info Meaningful Use Diagnoses (Choose all that apply): None applicable Discharge Plan Admission Admit Date/Time: 09/13/23 19:42 Primary Reason for Your Visit: Blood loss anemia secondary to suspected GI bleed, site undetermined Attending Provider: River Mejia Primary Care Provider: Martin Nunez Consulting Providers: Isaias Mitchell; Sonia He; Wolfgang Garay; Gavino Buenrostro Instructions Additional Instructions / Restrictions: It is recommended that if the patient has recurrent GI bleeding, he be transferred to a tertiary facility-such as [facility], [facility], or [facility]-these facilities will have interventional radiology availability to perform angiograms if necessary. It is recommended that the patient not be placed on full anticoagulation due to his past history of GI bleeds Contact the patient's surgeon who did his foot surgery to see if the patient can be progressed from nonweightbearing to weightbearing with a walker Discharge Orders/Prescriptions Prescriptions: New acetaminophen 325 mg Tablet 650 mg PO Q6H PRN PRN (Reason: Pain 1-10 Or Fever>100.7) Qty: 0 0RF albuterol sulfate 2.5 mg /3 mL (0.083 %) Solution For Nebulization 2.5 mg inhalation Q4H PRN (Reason: bronchospasm) Qty: 0 0RF menthol-zinc oxide [Calmoseptine] 0.44-20.6 % Ointment 1 applic topical BID Qty: 0 0RF Protocol: *Topical Application Instructions APPLICATION INSTRUCTIONS: apply to affected areas Ensure Plus High Protein 0.08 gram-1.5 kcal/mL Liquid 120 ml PO TIDCM Qty: 0 0RF Continued Velphoro 500 mg tablet,chewable 500 mg PO TIDCM budesonide 3 mg capsule,delayed,extend.release 9 mg PO DAILY Bibiana-Leoncio 0.8 mg tablet 1 tab PO DAILY clopidogrel 75 mg Tablet 75 mg PO DAILY Qty: 0 0RF midodrine 5 mg tablet 5 mg PO TUTHSA Rx Instructions: GIVE PRIOR TO DIALYSIS atorvastatin 20 mg tablet 20 mg PO QHS bisacodyl 10 mg suppository 10 mg MA QHS PRN (Reason: constipation) carvedilol 3.125 mg tablet 3.125 mg PO BID mineral oil [Fleet Mineral Oil] Enema 118 ml MA DAILY PRN (Reason: constipation) Rx Instructions: USE IF NO BM 8 HOURS AFTER BISACODYL SUPPOSITORY. IF NO BM WITHIN 1 HOUR OF ENEMA, NOTIFY MD. magnesium hydroxide [Milk of Magnesia] 400 mg/5 mL suspension 30 ml PO DAILY PRN (Reason: constipation) Rx Instructions: ADMINISTER ONCE DAILY IF NO BM IN 3 DAYS polyethylene glycol 3350 [ClearLax] 17 gram/dose powder 17 g PO DAILY PRN (Reason: constipation) amiodarone 200 mg tablet 200 mg PO DAILY sucralfate 1 gram Tablet 1 g PO 4X/DAY Rx Instructions: GIVE 1 TABLET BY MOUTH BEFORE MEAL AND AT BEDTIME pantoprazole 40 mg Tablet,Delayed Release (Dr/Ec) 40 mg PO BID Discontinued Eliquis 2.5 mg tablet 2.5 mg PO BID Hold Instructions: Hold for 5 days. Referrals / Follow Up: Martin Nunez DO [Primary Care Provider] - Disposition Disposition (needs filled in before D/C Order can be placed): Care Home Facility Charges/Coding Visit Charges Inpatient E&M: 39867 Disch Hosp >30min
[2023-09-18 09:02] VITALS: BP 127/52; PULSE 82; RESP 18; TEMP 36.7; O2SAT 99
[2023-09-18] MEDS: Ensure Plus High Protein 120 ML LIQUID PO (09:11)
[2023-09-18] MEDS: Clopidogrel Bisulfate 75 MG Tablet PO (09:11)
[2023-09-18] MEDS: Amiodarone 200 MG Tablet PO (09:11)
[2023-09-18] MEDS: Vitamin B Comp W-C Capsule 1 CAP PO (09:11)
[2023-09-18] MEDS: Budesonide 3 MG CAPSULE.EC 9 MG PO (09:11)
[2023-09-18] MEDS: Folic Acid/Vitamin B Comp W-C 1 Capsule 1 CAP PO (09:11)
[2023-09-18] MEDS: Pantoprazole Sodium 40 MG in 0.9% Normal Saline (100mL MB+) 100 ML 330 MG IV (09:11)
[2023-09-18] MEDS: Menthol/Lanolin/Calamine/Znox 113 GM Tube 1 APPLIC TOPICAL (09:12)
[2023-09-18 09:30] VITALS: O2SAT 94
[2023-09-18 09:41] LABS: Anisocytosis 1+; Platelet Estimate SLT DEC (ADEQ); Polychromasia 1+
== END 2023-09-18 10:37 | disposition skilled nursing facility (03) | DRG 377 ==
LOC: ED 19:36 → PCU 19:48
PROVIDERS: Anesthesiology; Internal Medicine Gastroenterology; Internal Medicine Nephrology; Admitting Provider Internal Medicine; Emergency Provider Emergency Medicine; PCP Student in an Organized Health Care Education/Training Program; Visit Provider Internal Medicine
PROC: 0DJD8ZZ Inspection of Lower Intestinal Tract, Via Natural or Artificial Opening Endoscopic (ICD-10-PCS; CPT 45378; principal; 2023-09-15 17:15)
DX: K57.31 Diverticulosis of large intestine without perforation or abscess with bleeding (principal); N18.6 End stage renal disease; D62 Acute posthemorrhagic anemia; I13.2 Hypertensive heart and chronic kidney disease with heart failure and with stage 5 chronic kidney disease, or end stage renal disease; I50.32 Chronic diastolic (congestive) heart failure; I48.20 Chronic atrial fibrillation, unspecified; D69.6 Thrombocytopenia, unspecified; D63.1 Anemia in chronic kidney disease; I95.89 Other hypotension; I73.9 Peripheral vascular disease, unspecified; E78.5 Hyperlipidemia, unspecified; Z99.2 Dependence on renal dialysis; Z89.422 Acquired absence of other left toe(s); I25.10 Atherosclerotic heart disease of native coronary artery without angina pectoris; E66.9 Obesity, unspecified; T45.515A Adverse effect of anticoagulants, initial encounter; R53.81 Other malaise; Z68.31 Body mass index [BMI] 31.0-31.9, adult; Z95.820 Peripheral vascular angioplasty status with implants and grafts; Z79.01 Long term (current) use of anticoagulants; Z79.02 Long term (current) use of antithrombotics/antiplatelets; Z85.51 Personal history of malignant neoplasm of bladder; Z79.899 Other long term (current) drug therapy; Z86.711 Personal history of pulmonary embolism; Z86.718 Personal history of other venous thrombosis and embolism; Z87.891 Personal history of nicotine dependence
CPT/HCPCS: 36415; 78278; 80048; 80053; 80069; 82274; 83735; 84100; 84450; 84460; 85014; 85018; 85025; 85027; 85610; 85730; 86850; 86900; 86901; 86920; 86922; 90937; 93005; 94640; 97110; 97162; 97802; 99252; 99285; A9560; J7030; J7040; J7050; J7120; P9016; A4216; G0257; G0463; Q5106

== ENCOUNTER 2023-10-19 16:27 | Inpatient (IN) | payer MEDICARE, BC, SELFPAY ==
[2023-10-19] VITALS (27 sets, daily range): BP systolic 95–167; BP diastolic 62–140; PULSE 79–108; RESP 16–28; TEMP 36.3–36.7; O2SAT 95–100; BMI 30.2; BMI 29.9
--- NOTE | 2023-10-19 17:35 | RAD_ITS ---
INDICATION: shortness of breath EXAMINATION/TECHNIQUE: X-RAY - portable upright AP chest x-ray COMPARISON: 08/27/2023 FINDINGS: LINES/DEVICES: Stable right-sided port. LUNGS: Patchy airspace opacity right lower lung field. Minimal blunting left costophrenic angle. No consolidations or vascular congestion. MEDIASTINUM AND CARDIOVASCULAR STRUCTURES: Cardiac silhouette stable within upper normal limits. BONES AND SOFT TISSUES: No acute changes. RAD/Chest 1 View (Portable) IMPRESSION: Patchy infiltrate right lower lung field suspicious for pneumonia. Possible small left pleural effusion. Recommend short-term follow-up to resolution. Electronically Signed: Edwin Santoyo MD at 19:42 EDT ,
--- NOTE | 2023-10-19 17:36 | EKG12_ITS ---
Test Reason : WEAKNESS Blood Pressure : / mmHG Vent. Rate : 095 BPM Atrial Rate : 095 BPM P-R Int : 082 ms QRS Dur : 130 ms QT Int : 396 ms P-R-T Axes : 000 252 178 degrees QTc Int : 497 ms Atrial Flutter with Variable Block Right bundle branch block Inferior infarct , age undetermined Anterolateral infarct (cited on or before 27-AUG-2023) Abnormal ECG Confirmed by JEANETTE CORRAL MD ([id number]), electronic news gathering editor JESU WAGONER ([id number]) on 10/20/2023 12:58:12 PM Referred By: AR Confirmed By:JEANETTE CORRAL MD
--- NOTE | 2023-10-19 17:37 | EX.ED.DYSGE1 ---
HPI History of Present Illness Chief Complaint: Weakness Narrative Narrative: 78-year-old male multiple medical problems presents from dialysis with chest pain and not feeling well. It was reported that he was pale looking and shaking. He denies any fevers or chills, but complains that his chest hurts. No exacerbating or alleviating factors. No fevers or chills, no shortness of breath. He states that he completed all of his dialysis. [facility] Medical History Acute on chronic anemia Anemia Anemia Anemia requiring transfusions Aortic root dilatation Arthritis Atrial fibrillation Bladder cancer Cancer Cardiology follow-up encounter (~04/04/23) CHF (congestive heart failure) Chronic anticoagulation Chronic anticoagulation CKD (chronic kidney disease) stage 5, GFR less than 15 ml/min Coronary artery disease Dialysis patient Duodenal ulcer ESRD (end stage renal disease) on dialysis ESRD (end stage renal disease) on dialysis Essential hypertension Former smoker Gastrointestinal bleeding GI bleed Hepatic cyst History of atrial fibrillation History of CHF (congestive heart failure) History of DVT (deep vein thrombosis) History of echocardiogram (~06/30/22) History of end stage renal disease History of GI bleed History of pulmonary embolism History of renal dialysis History of solitary pulmonary nodule History of stress test (~05/03/22) HIT (heparin-induced thrombocytopenia) HLD (hyperlipidemia) Hyperparathyroidism Hypotension Iron deficiency anemia Kidney disease Left upper chest discomfort Loss of hearing Low iron Lower gastrointestinal bleeding Lymphoma Paroxysmal A-fib Preop cardiovascular exam Pulmonary embolism Renal calculus Sleep apnea VTE (venous thromboembolism) Wears dentures Wears glasses Wears partial dentures Wide-complex tachycardia Home Medications budesonide 3 mg capsule,delayed,extended release 9 mg PO DAILY stomach 06/16/23 [History Last Taken Unknown] vitamin B complex-vitamin C-folic acid 0.8 mg tablet (Bibiana-Leoncio) 1 tab PO DAILY supplement 06/16/23 [History Last Taken Unknown] clopidogrel 75 mg tablet 75 mg PO DAILY #0 tabs 06/18/23 [Rx Last Taken Unknown] midodrine 5 mg tablet 10 mg PO [facility] blood pressure-dialysis 07/28/23 [History Last Taken Unknown] amiodarone 200 mg tablet 200 mg PO DAILY heart rate 08/31/23 [History Last Taken Unknown] carvedilol 3.125 mg tablet 3.125 mg PO BID HIGH BLOOD PRESSURE 08/31/23 [History Last Taken Unknown] pantoprazole 40 mg tablet,delayed release 40 mg PO BID reflux 08/31/23 [History Last Taken Unknown] polyethylene glycol 3350 17 gram/dose oral powder (ClearLax) 17 g PO DAILY PRN constipation 08/31/23 [History Last Taken Unknown] sucralfate 1 gram tablet 1 g PO 4X/DAY reflux 08/31/23 [History Last Taken Unknown] acetaminophen 325 mg tablet 650 mg (2 x 325 mg) PO Q6H PRN PRN Pain 1-10 Or Fever>100.7 #0 tabs 09/18/23 [Rx Last Taken Unknown] albuterol sulfate 2.5 mg/3 mL (0.083 %) solution for nebulization 2.5 mg (3 mL) inhalation Q4H PRN bronchospasm #0 mL 09/18/23 [Rx Last Taken Unknown] food supplemt, lactose-reduced 0.08 gram-1.5 kcal/mL oral liquid (Ensure Plus High Protein) 120 ml PO TIDCM #0 mL 09/18/23 [Rx Last Taken Unknown] menthol 0.44 %-zinc oxide 20.6 % topical ointment (Calmoseptine) 1 applic topical BID #0 grams 09/18/23 [Rx Last Taken Unknown] apixaban 2.5 mg tablet (Eliquis) 2.5 mg PO BID 10/19/23 [History Last Taken Unknown] vitamin B complex-vitamin C-folic acid 0.8 mg tablet (Dialyvite 800) 1 tab PO DAILY 10/19/23 [History Last Taken Unknown] Allergy/AdvReac Type Severity Reaction Status Date / Time Iodinated Contrast Media Allergy Intermediate KIDNEY Verified 10/19/23 16:35 FAILURE enoxaparin [From Lovenox] Allergy Other Verified 10/19/23 16:35 heparin Allergy Other Verified 10/19/23 16:35 aspirin AdvReac Other Verified 10/19/23 16:35 Family History Father Cancer lung Arrhythmia Brother Cancer Mother Dementia Surgical History AV fistula H/O total cystectomy History of bladder surgery History of cataract extraction History of corrected cleft lip and palate History of foot surgery History of tonsillectomy S/P peripheral artery angioplasty with stent placement Social History household members: none Smoking Status: Former smoker how long ago did patient quit smoking: Started age 7, stopped at 17, started again 21-2 ppd until quit 2008 alcohol intake: never substance use type: does not use caffeine: No ROS ROS ED ROS Narrative Constitutional: No fever, no chills. Generalized weakness. Reports malaise. HEENT: No sore throat. No neck pain. No loss of vision. No rhinorrhea. Cardiovascular: Positive chest pain. No palpitations. No pedal edema. Respiratory: No cough, no shortness of breath. Abdominal: No abdominal pain. No nausea. No vomiting. Genitourinary: No dysuria. No hematuria. Musculoskeletal: No myalgias. No arthralgias. Neurologic: No headaches. No dizziness. No lightheadedness. Skin: No rash. No change in color. Psychiatric: No depression. No anxiety. EXAM Physical Exam Narrative Exam Narrative: Afebrile. Vital signs noted. HEENT: Normocephalic. Atraumatic. PERRL, EOMI. Neck soft and supple. No point tenderness or step off. Cardiovascular: Regular rate and rhythm. No murmurs, rubs, or gallops appreciated. Respiratory: Mild tachypnea. Lungs clear to auscultation bilaterally. Gastrointestinal: Abdomen soft, nontender, with normoactive bowel sounds. No rebound or guarding. Neurological: Awake. Alert. Nonfocal, nonlateralizing. Skin: No rash. Normal color. No pallor. Musculoskeletal: No pedal edema. Full range of motion extremities. Const Vital Signs: 10/19/23 16:33 10/19/23 16:36 10/19/23 17:28 Temperature 97.6 F L Temperature Source Temporal Pulse Rate 99 95 Respiratory Rate 23 H 27 H Respiratory Effort Labored Respiratory Pattern Tachypnea Blood Pressure 153/105 H 166/103 H Blood Pressure Mean 121 124 Pulse Ox 100 99 Oxygen Delivery Method Nasal Cannula Nasal Cannula Oxygen Flow Rate (L/min) 5 10/19/23 18:00 10/19/23 18:36 10/19/23 18:40 Temperature Temperature Source Pulse Rate 101 H 108 H 97 Respiratory Rate 22 H 27 H 27 H Respiratory Effort Respiratory Pattern Blood Pressure 146/100 H 135/97 H Blood Pressure Mean 115 109 Pulse Ox 95 Oxygen Delivery Method Nasal Cannula Oxygen Flow Rate (L/min) 5 10/19/23 18:45 10/19/23 18:50 10/19/23 18:52 Temperature Temperature Source Pulse Rate 101 H 99 95 Respiratory Rate 28 H 26 H 25 H Respiratory Effort Respiratory Pattern Blood Pressure 155/140 H 164/136 H 167/139 H Blood Pressure Mean 146 143 149 Pulse Ox 98 Oxygen Delivery Method Oxygen Flow Rate (L/min) 10/19/23 18:55 10/19/23 19:00 10/19/23 19:05 Temperature Temperature Source Pulse Rate 92 89 94 Respiratory Rate 22 H 25 H 26 H Respiratory Effort Respiratory Pattern Blood Pressure 146/96 H 157/79 H 145/84 H Blood Pressure Mean 109 104 99 Pulse Ox 100 100 Oxygen Delivery Method Nasal Cannula Nasal Cannula Oxygen Flow Rate (L/min) 5 5 10/19/23 20:38 10/19/23 17:39 10/19/23 19:10 Temperature 98.0 F Temperature Source Pulse Rate 95 86 Respiratory Rate 24 H 20 H Respiratory Effort Respiratory Pattern Normal Blood Pressure 156/86 H 140/62 H Blood Pressure Mean 109 87 Pulse Ox 97 Oxygen Delivery Method Oxygen Flow Rate (L/min) 10/19/23 19:15 10/19/23 19:20 10/19/23 19:26 Temperature Temperature Source Pulse Rate 93 96 103 H Respiratory Rate 27 H 28 H 26 H Respiratory Effort Respiratory Pattern Blood Pressure 97/63 113/88 H Blood Pressure Mean 71 96 101 Pulse Ox Oxygen Delivery Method Oxygen Flow Rate (L/min) 10/19/23 19:30 10/19/23 19:35 10/19/23 19:40 Temperature Temperature Source Pulse Rate 108 H 89 87 Respiratory Rate 22 H 20 H 25 H Respiratory Effort Respiratory Pattern Blood Pressure 160/91 H 160/85 H 167/88 H Blood Pressure Mean 113 108 103 Pulse Ox 99 100 100 Oxygen Delivery Method Oxygen Flow Rate (L/min) 10/19/23 19:45 10/19/23 19:50 10/19/23 19:55 Temperature Temperature Source Pulse Rate 81 87 85 Respiratory Rate 22 H 24 H 19 H Respiratory Effort Respiratory Pattern Blood Pressure 95/74 136/82 H 134/83 H Blood Pressure Mean 83 98 98 Pulse Ox 100 100 100 Oxygen Delivery Method Nasal Cannula Oxygen Flow Rate (L/min) 5 10/19/23 20:00 10/19/23 20:05 Temperature Temperature Source Pulse Rate 79 86 Respiratory Rate 19 H 24 H Respiratory Effort Respiratory Pattern Blood Pressure 132/80 H 149/77 H Blood Pressure Mean 97 99 Pulse Ox 100 100 Oxygen Delivery Method Nasal Cannula Oxygen Flow Rate (L/min) 5 MDM MDM MDM Narrative Medical decision making narrative: Concern is for pneumonia or infectious process. He is unsure if he can give a urine sample, but with his history of dialysis I am unsure if he produces urine. I reviewed his prior laboratories and records. EKG was obtained and interpreted by myself independently as normal sinus rhythm with sinus arrhythmia at [address] changes. There is a right bundle branch block. I see no ST elevation concerning for STEMI. I reviewed his laboratory work and he has normal white count of 7.1, hemoglobin stable at 9.5 with a history of chronic anemia. His platelet count is 41 but he has a chronic thrombocytopenia. I will refrain from administering aspirin for his chest pain. RN performed catheterization, but he had dialysis today, and there was only a small amount of urine in the bladder. His BUN is elevated at 89 and creatinine of 6.21 consistent with his end-stage renal disease. His troponin is elevated at 465. Second is pending. However, in review of his laboratory work he has had chronically elevated troponins. They have been as high as 300-400s. I am unsure if this is from his end-stage renal disease, but with his complaint of chest pain, I am reluctant to give him heparin as well because he listed as an allergy as well as aspirin. He does have a history of GI bleeds as well. Chest x-ray 1 view interpreted by myself independently shows no gross consolidation, no pneumothorax. I reviewed the radiology report which comments on left pleural effusion and possible right pneumonia. Clinically, he does not have a high white count or cough. His son who is his power of tire balancer is at the bedside. He states that he is no longer on Eliquis or aspirin because of his GI bleeds. He did require a blood transfusion in the past. With his platelets being 41, I will discuss patient with the hospitalist for observation. Son also adds history that they are trying to change his dialysis days. He had missed his Tuesday dialysis appointment so he has gone Tuesday, Tuesday, and they decided to switch him to a Tuesday schedule so Zachary had dialysis performed again today, which makes 3 days in a row. His second troponin has returned and is elevated. Once again this is a chronic elevation. Additionally, his thrombocytopenia fluctuates. I do not feel he requires emergent transfusion of platelets. At this point in time, patient was discussed with the hospitalist. Given his chest x-ray he will be treated for pneumonia given his end-stage renal disease. He was placed on vancomycin and Zosyn. Blood cultures will be obtained prior to this. He will be admitted to the PCU. Currently he is not meeting any SIRS criteria. Hence I have low concern for sepsis. He is in stable condition. History & Record Review Discussion w/independent historian: Patient and Family Lab Data Attestation: I reviewed the patient's lab results. Labs: Laboratory Results - last 24 hr 10/19/23 10/19/23 10/19/23 17:01 18:13 19:30 WBC 7.1 RBC 3.44 L Hgb 9.5 L Hct 31.7 L MCV 92.2 MCH 27.6 MCHC 30.0 L RDW Std Deviation 63.6 H RDW Coeff of Lencho 18.8 H Plt Count 41 L* MPV TNP Immature Gran % (Auto) 0.300 Neut % (Auto) 88.9 H Lymph % (Auto) 2.9 L [place] % (Auto) 7.7 Eos % (Auto) 0.1 Baso % (Auto) 0.1 Absolute Neuts (auto) 6.3 Absolute Lymphs (auto) 0.21 L Nucleated RBC % 0.3 Differential Comment SCANNED Diff Path Review May foll Sodium 140 Potassium 4.2 Chloride 101 Carbon Dioxide 25.0 Anion Gap 14 BUN 89 H Creatinine 6.21 H Estim Creat Clear Calc 11.20 Est GFR (MDRD) Af Amer 11 L Est GFR (MDRD) Non-Af 9 L BUN/Creatinine Ratio 14.3 Glucose 110 H Calcium 8.8 Total Bilirubin 0.80 AST 15 ALT 17 Alkaline Phosphatase 89 Troponin I High Sens 465 H* 428 H* Total Protein 5.9 L Albumin 2.7 L Globulin 3.2 Albumin/Globulin Ratio 0.8 L Urine Color Yellow Urine Clarity Sl. Cloudy Urine pH 8.0 Ur Specific [place] 1.015 Urine Protein 100 H Urine Glucose (UA) Normal Urine Ketones Negative Urine Occult Blood 150 H Urine Nitrite Negative Urine Bilirubin 1 H Urine Urobilinogen Normal Ur Leukocyte Esterase 100 H Urine RBC Cancelled Urine WBC Cancelled Ur Squamous Epith Cells Cancelled Ur Transition Epith Cell Cancelled Ur Renal Epithelial Cell Cancelled Calcium Oxalate Crystal Cancelled Uric Acid Crystals Cancelled Triple Phos Crystals Cancelled Other Crystals Cancelled Amorphous Sediment Cancelled Urine Bacteria Cancelled Hyaline Casts Cancelled Fine Granular Casts Cancelled Coarse Granular Casts Cancelled Waxy Casts Cancelled RBC Casts Cancelled WBC Casts Cancelled Urine Mucus Cancelled Urine Trichomonas Cancelled Urine Yeast Cancelled Radiography Chest X-Ray - ED: 1 View and Read by ED Physician Diagnostic Testing: Clinical Impression(s) from Imaging Studies Chest X-Ray 10/19/23 17:35 IMPRESSION: Patchy infiltrate right lower lung field suspicious for pneumonia. Possible small left pleural effusion. Recommend short-term follow-up to resolution. Electronically Signed: Edwin Santoyo MD at 19:42 EDT , Discharge Plan Dx/Rx/DC Orders Clinical Impression: Elevated troponin, Thrombocytopenia, Pneumonia Disposition Disposition: Acute Care [facility]
[2023-10-19 17:52] LABS: Absolute Lymphocyte Count 0.21 X10^3/uL (0.83-4.51); Absolute Neutrophil Count 6.3 X10^3/uL (2.0-7.7); Basophil# 0.01 X10^3/uL; Basophil% 0.1 % (0-1); Eosinophil# 0.01 X10^3/uL; Eosinophils% 0.1 % (0-5); Hematocrit 31.7 % (40-54); Hemoglobin 9.5 g/dL (13.0-16.5); Lymphocyte # 0.21 X10^3/ul (0.83-4.51); Lymphocyte % 2.9 % (19-41); Mean Corpuscular Hgb 27.6 pg (27.0-32.0); Mean Corpuscular Volume 92.2 fL (80-94); Monocyte# 0.55 X10^3/uL; Monocyte% 7.7 % (0-10); NRBC Flagged by Analyzer 0.3 % (0-5); Neutrophil # 6.34 X10^3/uL (2.7-7.7); Neutrophil % 88.9 % (47-70); POSITIVE COUNT YES; POSITIVE DIFFERENTIAL YES; RBC Distribution Width CV 18.8 % (11.6-14.6); RBC Distribution Width SD 63.6 fl (35.1-43.9); Red Blood Count 3.44 M/mm3 (4.6-6.2); White Blood Count 7.1 K/mm3 (4.4-11.0)
[2023-10-19 17:58] LABS: Differential Indicated SCAN CRITERIA MET; Platelet Count 41 K/mm3 (150-450)
[2023-10-19 18:14] LABS: ALB/GLOB Ratio 0.8 RATIO (0.9-2.4); AST(SGOT) 15 U/L (15-37); Alanine Aminotransfer ALT/SGPT 17 U/L (16-61); Albumin, Serum 2.7 g/dL (3.2-5.0); Alkaline Phosphatase 89 U/L (45-117); Anion Gap 14 (5-15); BUN 89 mg/dL (7-18); BUN/Creat Ratio 14.3 RATIO (10-20); Calcium,Total 8.8 mg/dL (8.5-10.1); Chloride 101 mmol/L (98-107); Creatinine, Serum 6.21 mg/dL (0.70-1.30); EST Glomerular Filtration Rate 9 mL/min (>60); Est Glom Filt Rate - Afr Amer 11 mL/min (>60); Globulin 3.2 g/dL (2.2-4.2); Glucose 110 mg/dL (74-106); Potassium 4.2 mmol/L (3.5-5.1); Protein, Total 5.9 g/dL (6.4-8.2); Sodium Level 140 mmol/L (136-145); Troponin-I HS (w/2H Reflex) 465 pg/mL (3.0-78.0)
[2023-10-19 18:23] LABS: Differential Comment SCANNED
[2023-10-19 19:41] LABS: Reflex Troponin-HS? (from REC) Y
[2023-10-19 20:16] LABS: Troponin-I HS 428 pg/mL (3.0-78.0)
--- NOTE | 2023-10-19 20:26 | PCM.HP.STD ---
HPI - General General Date of Admission: 10/19/23 Date of Service: 10/19/23 Chief Complaint: Fatigue, malaise, chest discomfort. HPI Narrative The patient is a 77 y/o M w/ PMHx: PAD s/p L great toe resection secondary to osteomyelitis with LLE angioplasty and PCI x 3 started plavix, Former tobacco use, Presumed HFpEF, Chronic thrombocytopenia, HTN, HLD, ESRD on HD following with Dr. He //Tue w/ minimal UOP recently transitioned to M/W/F schedule, AOCD/Fe deficiency anemia, Hx VTE (DVT/PE), PAF, Hx Lymphoma, Hx Hyperparathyroidism, Hx Bladder CA, Hx GI bleeds most recently discharged 09/18/23 following recurrent GI bleed with ABLA on chronic anemia who presents to the [facility] ED on 10/19/23 with history of pleuritic discomfort, fatigue and malaise presenting from dialysis which he apparently did complete although denies dyspnea and no fevers or chills at this time but given appearance noted to be pale and shaking with almost what seemed to be rigors prompted referral to the ED for further evaluation. Workup in the ED included T97.6, heart rate 99, BP 153/105, respiratory rate 23, 100% on 5 L nasal cannula with most recent presentation prior to this noted 10/12/2023 patient on 100% on 3 L nasal cannula, most recent vital signs heart rate 86, BP 149/77, respiratory rate 24, 100% on 5 L nasal cannula, CBC with WBC 7.1, hemoglobin 9.5, MCV 92.2, platelet 41 with lymphopenia, CMP with BUN/creatinine 89/6.21, creatinine clearance 11.2, GFR 9, glucose 110, troponin initial 465 with repeat delta 428 however patient has significantly elevated troponins baseline with troponins in August 392 431, chest x-ray with patchy infiltrate right lower lobe suspicious for pneumonia, possible small left pleural effusion, SARS COVID/influenza/RSV PCR negative, Bld Cx x 2 pending per ED. in the ED patient ministered IV vancomycin and IV Zosyn. [facility] Medical History (Updated 10/19/23 @ 21:[address] Lisa James MD) Anemia Anemia requiring transfusions Aortic root dilatation Arthritis Atrial fibrillation Bladder cancer Cancer Cardiology follow-up encounter (~04/04/23) CHF (congestive heart failure) Chronic anticoagulation CKD (chronic kidney disease) stage 5, GFR less than 15 ml/min Coronary artery disease Dialysis patient Duodenal ulcer ESRD (end stage renal disease) on dialysis Essential hypertension Former smoker GI bleed Hepatic cyst History of DVT (deep vein thrombosis) History of echocardiogram (~06/30/22) History of pulmonary embolism History of solitary pulmonary nodule History of stress test (~05/03/22) HIT (heparin-induced thrombocytopenia) HLD (hyperlipidemia) Hyperparathyroidism Iron deficiency anemia Left upper chest discomfort Loss of hearing Low iron Lower gastrointestinal bleeding Lymphoma Preop cardiovascular exam Renal calculus Sleep apnea VTE (venous thromboembolism) Wears dentures Wears glasses Wears partial dentures Wide-complex tachycardia Home Medications budesonide 3 mg capsule,delayed,extended release 9 mg PO DAILY stomach 06/16/23 [History Last Taken Unknown] vitamin B complex-vitamin C-folic acid 0.8 mg tablet (Bibiana-Leoncio) 1 tab PO DAILY supplement 06/16/23 [History Last Taken Unknown] clopidogrel 75 mg tablet 75 mg PO DAILY #0 tabs 06/18/23 [Rx Last Taken Unknown] midodrine 5 mg tablet 10 mg PO TUTHSA blood pressure-dialysis 07/28/23 [History Last Taken Unknown] amiodarone 200 mg tablet 200 mg PO DAILY heart rate 08/31/23 [History Last Taken Unknown] carvedilol 3.125 mg tablet 3.125 mg PO BID HIGH BLOOD PRESSURE 08/31/23 [History Last Taken Unknown] pantoprazole 40 mg tablet,delayed release 40 mg PO BID reflux 08/31/23 [History Last Taken Unknown] polyethylene glycol 3350 17 gram/dose oral powder (ClearLax) 17 g PO DAILY PRN constipation 08/31/23 [History Last Taken Unknown] sucralfate 1 gram tablet 1 g PO 4X/DAY reflux 08/31/23 [History Last Taken Unknown] acetaminophen 325 mg tablet 650 mg (2 x 325 mg) PO Q6H PRN PRN Pain 1-10 Or Fever>100.7 #0 tabs 09/18/23 [Rx Last Taken Unknown] albuterol sulfate 2.5 mg/3 mL (0.083 %) solution for nebulization 2.5 mg (3 mL) inhalation Q4H PRN bronchospasm #0 mL 09/18/23 [Rx Last Taken Unknown] food supplemt, lactose-reduced 0.08 gram-1.5 kcal/mL oral liquid (Ensure Plus High Protein) 120 ml PO TIDCM #0 mL 09/18/23 [Rx Last Taken Unknown] menthol 0.44 %-zinc oxide 20.6 % topical ointment (Calmoseptine) 1 applic topical BID #0 grams 09/18/23 [Rx Last Taken Unknown] apixaban 2.5 mg tablet (Eliquis) 2.5 mg PO BID 10/19/23 [History Last Taken Unknown] vitamin B complex-vitamin C-folic acid 0.8 mg tablet (Dialyvite 800) 1 tab PO DAILY 10/19/23 [History Last Taken Unknown] Allergy/AdvReac Type Severity Reaction Status Date / Time Iodinated Contrast Media Allergy Intermediate KIDNEY Verified 10/19/23 16:35 FAILURE enoxaparin [From Lovenox] Allergy Other Verified 10/19/23 16:35 heparin Allergy Other Verified 10/19/23 16:35 aspirin AdvReac Other Verified 10/19/23 16:35 Family History Father Cancer lung Arrhythmia Brother Cancer Mother Dementia Surgical History AV fistula H/O total cystectomy History of bladder surgery History of cataract extraction History of corrected cleft lip and palate History of foot surgery History of tonsillectomy S/P peripheral artery angioplasty with stent placement Social History household members: none Smoking Status: Former smoker how long ago did patient quit smoking: Started age 7, stopped at 17, started again 22-2 ppd until quit 2008 alcohol intake: never substance use type: does not use caffeine: No ROS ROS Narrative Admission Review of Systems: CONSTITUTIONAL: No weight loss, fever, chills, + weakness or fatigue. HEENT: Eyes: No visual loss, blurred vision, double vision or yellow sclerae. Ears, Nose, Throat: No hearing loss, sneezing, congestion, runny nose or sore throat. SKIN: + occasional staged ecchymoses, venous stasis skin changes. CARDIOVASCULAR: + Chronic edema, pleuritic chest discomfort. No palpitations, orthopnea, syncopal events. RESPIRATORY: + Shortness of breath. No marked cough or sputum, wheezing, hemoptysis. GASTROINTESTINAL: No anorexia, nausea, vomiting or diarrhea, abdominal pain, melena, BRBPR. GENITOURINARY: + Anuric. No dysuria, frequency, urgency or retention. NEUROLOGICAL: No headache, dizziness, syncope, paralysis, ataxia, numbness or tingling in the extremities, focal weakness, change in bowel or bladder control, seizure. MUSCULOSKELETAL: + muscle, back pain, joint pain or stiffness. HEMATOLOGIC: + anemia, bleeding, easy bruising. LYMPHATICS: No enlarged nodes. No history of splenectomy. PSYCHIATRIC: No history of depression or anxiety. ENDOCRINOLOGIC: No reports of sweating, cold or heat intolerance. No polyuria or polydipsia. ALLERGIES: No history of asthma, hives, eczema or rhinitis. Vital Signs Vital Signs Vital Signs: 10/19/23 16:33 10/19/23 16:36 10/19/23 17:28 Temperature 97.6 F L Temperature Source Temporal Pulse Rate 99 95 Respiratory Rate 23 H 27 H Respiratory Effort Labored Respiratory Pattern Tachypnea Blood Pressure 153/105 H 166/103 H Blood Pressure Mean 121 124 Pulse Ox 100 99 Oxygen Delivery Method Nasal Cannula Nasal Cannula Oxygen Flow Rate (L/min) 5 10/19/23 18:00 10/19/23 18:36 10/19/23 18:40 Temperature Temperature Source Pulse Rate 101 H 108 H 97 Respiratory Rate 22 H 27 H 27 H Respiratory Effort Respiratory Pattern Blood Pressure 146/100 H 135/97 H Blood Pressure Mean 115 109 Pulse Ox 95 Oxygen Delivery Method Nasal Cannula Oxygen Flow Rate (L/min) 5 10/19/23 18:45 10/19/23 18:50 10/19/23 18:52 Temperature Temperature Source Pulse Rate 101 H 99 95 Respiratory Rate 28 H 26 H 25 H Respiratory Effort Respiratory Pattern Blood Pressure 155/140 H 164/136 H 167/139 H Blood Pressure Mean 146 143 149 Pulse Ox 98 Oxygen Delivery Method Oxygen Flow Rate (L/min) 10/19/23 18:55 10/19/23 19:00 10/19/23 19:05 Temperature Temperature Source Pulse Rate 92 89 94 Respiratory Rate 22 H 25 H 26 H Respiratory Effort Respiratory Pattern Blood Pressure 146/96 H 157/79 H 145/84 H Blood Pressure Mean 109 104 99 Pulse Ox 100 100 Oxygen Delivery Method Nasal Cannula Nasal Cannula Oxygen Flow Rate (L/min) 5 5 10/19/23 19:10 10/19/23 19:15 10/19/23 19:20 Temperature Temperature Source Pulse Rate 86 93 96 Respiratory Rate 20 H 27 H 28 H Respiratory Effort Respiratory Pattern Blood Pressure 140/62 H 97/63 113/88 H Blood Pressure Mean 87 71 96 Pulse Ox Oxygen Delivery Method Oxygen Flow Rate (L/min) 10/19/23 19:26 10/19/23 19:30 10/19/23 19:35 Temperature Temperature Source Pulse Rate 103 H 108 H 89 Respiratory Rate 26 H 22 H 20 H Respiratory Effort Respiratory Pattern Blood Pressure 160/91 H 160/85 H Blood Pressure Mean 101 113 108 Pulse Ox 99 100 Oxygen Delivery Method Oxygen Flow Rate (L/min) 10/19/23 19:40 10/19/23 19:45 10/19/23 19:50 Temperature Temperature Source Pulse Rate 87 81 87 Respiratory Rate 25 H 22 H 24 H Respiratory Effort Respiratory Pattern Blood Pressure 167/88 H 95/74 136/82 H Blood Pressure Mean 103 83 98 Pulse Ox 100 100 100 Oxygen Delivery Method Oxygen Flow Rate (L/min) 10/19/23 19:55 10/19/23 20:00 10/19/23 20:05 Temperature Temperature Source Pulse Rate 85 79 86 Respiratory Rate 19 H 19 H 24 H Respiratory Effort Respiratory Pattern Blood Pressure 134/83 H 132/80 H 149/77 H Blood Pressure Mean 98 97 99 Pulse Ox 100 100 100 Oxygen Delivery Method Nasal Cannula Nasal Cannula Oxygen Flow Rate (L/min) 5 5 Weight Weight: 204 lb 5.896 oz Body Mass Index (BMI) 30.2 Physical Exam Narrative Physical Examination: General: Awake, alert, oriented x 3 and cooperative, seated upright in the ED bed in no apparent distress, fatigued appearing. Skin: Normal color, normal turgor, no icterus, no cyanosis except for venous stasis skin changes, occasional abrasion, occasional staged ecchymoses. HEENT: AT/NC, EOMI, PERRLA, mildly dry MM, no carotid bruits or JVD noted. Lungs: Diminished, greater bases,R>L, mildly increased RR but no distress, no rales, ronchi or wheezing. Heart: Currently regular rate and rhythm; no gallop, rub audible, reproducible pleuritic chest discomfort with deep inspiratory effort and palpation. Abdomen: Soft, obese, NTTP, ND, distant normal BS, no appreciated HSM. Extremities: No cyanosis, no clubbing, pedal to proximal lower extremity chronic 1+ pitting edema, see skin. Neurological: Patient awake, alert, oriented as noted, cognitive function intact; pupils equally reactive to light and accommodation, cranial nerves grossly normal, moving all 4 extremities, strength moderately to severely globally decreased secondary to acute presentation. Psychiatric: Affect appears fatigued, no acute evidence of depressive or anxiety feelings. Results Lab / Micro Data 10/19/23 17:01 10/19/23 17:01 Labs: Laboratory Results - last 24 hr 10/19/23 17:01: WBC 7.1, RBC 3.44 L, Hgb 9.5 L, Hct 31.7 L, MCV 92.2, MCH 27.6, MCHC 30.0 L, RDW Std Deviation 63.6 H, RDW Coeff of Lencho 18.8 H, Plt Count 41 L*, MPV TNP, Immature Gran % (Auto) 0.300, Neut % (Auto) 88.9 H, Lymph % (Auto) 2.9 L, Benton % (Auto) 7.7, Eos % (Auto) 0.1, Baso % (Auto) 0.1, Absolute Neuts (auto) 6.3, Absolute Lymphs (auto) 0.21 L, Nucleated RBC % 0.3, Differential Comment SCANNED, Diff Path Review October, Sodium 140, Potassium 4.2, Chloride 101, Carbon Dioxide 25.0, Anion Gap 14, BUN 89 H, Creatinine 6.21 H, Estim Creat Clear Calc 11.20, Est GFR (MDRD) Af Amer 11 L, Est GFR (MDRD) Non-Af 9 L, BUN/Creatinine Ratio 14.3, Glucose 110 H, Calcium 8.8, Total Bilirubin 0.80, AST 15, ALT 17, Alkaline Phosphatase 89, Troponin I High Sens 465 H*, Total Protein 5.9 L, Albumin 2.7 L, Globulin 3.2, Albumin/Globulin Ratio 0.8 L 10/19/23 19:30: Troponin I High Sens 428 H* Micro: Microbiology 10/19/23 17:45 Mucosa - Nose SARS-CoV-2, Influenza & RSV (PCR) - Final Imaging Radiology Impression Chest X-Ray 10/19/23 17:35 IMPRESSION: Patchy infiltrate right lower lung field suspicious for pneumonia. Possible small left pleural effusion. Recommend short-term follow-up to resolution. Electronically Signed: Edwin Santoyo MD at 19:42 EDT , Assessment & Plan Assessment/Plan (1) Pneumonia: PLAN: Plan The patient is a 77 y/o M w/ PMHx: PAD s/p L great toe resection secondary to osteomyelitis with LLE angioplasty and PCI x 3 started plavix, Former tobacco use, Presumed HFpEF, Chronic thrombocytopenia, HTN, HLD, ESRD on HD following with Dr. He //Tue w/ minimal UOP recently transitioned to M/W/F schedule, AOCD/Fe deficiency anemia, Hx VTE (DVT/PE), PAF, Hx Lymphoma, Hx Hyperparathyroidism, Hx Bladder CA, Hx GI bleeds most recently discharged 09/18/23 following recurrent GI bleed with ABLA on chronic anemia who presents to the [facility] ED on 10/19/23 with history of pleuritic discomfort, fatigue and malaise presenting from dialysis which he apparently did complete although denies dyspnea and no fevers or chills at this time but given appearance noted to be pale and shaking with almost what seemed to be rigors prompted referral to the ED for further evaluation. #1. Acute on Chronic Hypoxia (recent evaluation 3L NC-->now 5L NC) secondary to RLL Pneumonia, Possible GN/GP Organism given prolonged recent admission: Will admit to PCU, maintain on oxygen with wean as tolerated to home oxygen supplementation, continue ATC budesonide, PRN albuterol, maintain on IV Zosyn and Vancomycin w/ MRSA screen requested, HOB, IS parameters w/ pending sputum cultures and urine antigens. PT/OT/CM consultation for discharge planning. #2. Chronically elevated troponin with underlying significant end-stage renal disease as noted, similar to previous with pleuritic discomfort in the chest likely secondary to #1: EKG in ED with no acute concerning ischemic changes, CXR w/ concern for right lower lobe infiltrate/pneumonia, initial trop 465 with repeat delta 428. Will place on a monitored bed to assure no acute myocardial infarction with serial cardiac enzymes and EKGs. Mag pending. Maintain on plavix. #3. Recent recurrent significant GI bleed with acute blood loss anemia: Discharged 09/18/2023, received 1 unit PRBC during that admission with Plavix eventually resumed however his Eliquis was not restarted given recurrent bleeding. Patient per record had also been at [facility] recently secondary to bleed and they had been unable to find source. Most recent noted imaging included GI bleed nuclear scan 09/14/2023 with noted increased radiopharmaceutical concentration defined in the left mid and lower abdominal cavity most consistent with an active GI hemorrhage with likely origination in the distal transverse colon with both retrograde and antegrade progression. Continue high dose PPI and carafate regimen. Encourage continued outpatient GI follow-up as previously arranged. #4. PAD w/ recent L great toe osteomyelitis: Followed initially with Dr. Miramontes with history of initial referral secondary to left great toe wound with PAD referred by podiatry, L EAS with noncompressible vessels bilaterally but with monophasic waveform left lower extremity and TBI 0.2 status post previous thrombectomy possibly secondary to left lower extremity clots possibly off Coumadin at that time however this is remote in 2012 and unclear if they were venous or arterial and unclear if any stents are present peripherally. Given timeline however he was then referred to [facility] and recently underwent L great toe amputation secondary to osteomyelitis, treated during admission with abx therapy and underlying LLE angioplasty and PCI x 3. Currently maintained on Plavix only given recent GI bleed recurrence now off Eliquis. Will maintain on statin therapy. #5. Chronic normocytic anemia/AOCD: Admission hemoglobin 9.5, MCV 92.2, baseline hemoglobin primarily 7-8, last noted 09/20/2023 hemoglobin 8.9, stable, continue to trend. #6. Chronic thrombocytopenia: Admission platelet 41, seems to vacillate, earlier in August went down as low as 25, most recently prior to current presentation 09/18/2023 back again to platelet 87, will continue to very closely monitor. #7. HFpEF: 06/30/2022 echocardiogram with normal LV systolic function, EF 60%, mild concentric LVH, mildly dilated RV, severely enlarged LA and moderately enlarged RA, mild MVI, mild TVI, RVSP 31 mmHg with inability to assess diastolic function on that echo, continuing plavix as noted, statin, coreg, not on MARCELA/ARB. #8. ESRD: Patient with dialysis on day of presentation w/ recent T//Tue-->M/W/F regimen, noted last regimen on day of presentation x 3 hours, will consult nephrology Dr. He to continue. #9. PAF: We will continue patient home amiodarone as well as Coreg. Recently Eliquis d/c given recurrent GI bleeding. #10. History of VTE: Patient with previous history of DVT and PE. Recent recurrent GI bleeding w/ D/C anticoagulation. #11. Hypertension: Will continue home coreg, PRN IV hydralazine. #12. Hyperlipidemia: Continue home statin regimen. #13. History lymphoma, bladder cancer: Patient status post remote history of bladder resection and reconstruction considered in remission as well as a history of lymphoma treated with per son chemotherapy also considered in remission. Follow-up with urology as well as oncology as previously arranged. #14. Former tobacco use: Encourage continued tobacco cessation. #15. DVT prophylaxis: SCDs. Will defer chemoprophylaxis given plts and recent GI bleeding. #16. CODE status: Patient DEANNA is his son who is present and living will is currently in place. Discussed CODE status at length including difference between FULL code, DNR-CCA and DNR-CC status. Following discussions about the differences in these status, requested Full Code which was confirmed and prognosis/outcome discussed given his history with both patient and family (son and daughter present). Advanced Care Planning Face to Face Time: 16 minutes. Charges/Coding Visit Charges Inpatient E&M: 11439 Init Hosp L3 Procedures Hospitalists Procedures: 00510 Advncd Care Plan 30 Min
[2023-10-19 20:56] LABS: Color, Urine Yellow (Yellow); Glucose, Dipstick Normal (Normal); Ketone-Dipstick Negative (Negative); Leukocyte Esterase-Dipstick 100 /ul (Negative); Nitrite-Dipstick Negative (Negative); Occult Blood-Urine 150 /ul (Negative); Protein-Dipstick 100 mg/dl (Negative); Specific Gravity, Urine 1.015 (1.002-1.030); Urine Clarity Sl. Cloudy (Clear); Urine Urobilinogen Normal (Normal)
[2023-10-19 20:58] LABS: Urine Bilirubin Dipstick 1 mg/dL (Negative)
[2023-10-19] MEDS: Piperacil/Tazobactam 3.375 GM in 0.9% Normal Saline (50mL MB+) 50 ML IV (22:00)
[2023-10-19 22:07] LABS: Magnesium 1.9 mg/dL (1.6-2.6)
[2023-10-19] MEDS: Vancomycin HCl 1,500 MG in 0.9% Normal Saline (500mL Bag) 500 ML 250 MG IV (23:25)
[2023-10-20] VITALS (9 sets, daily range): BP systolic 126–161; BP diastolic 61–87; PULSE 73–89; RESP 16–20; TEMP 36.2–36.8; O2SAT 94–100; BMI 29.9
[2023-10-20] MEDS: Menthol/Lanolin/Calamine/Znox 113 GM Tube 1 APPLIC TOPICAL ×2 (00:02→09:16)
[2023-10-20] MEDS: Carvedilol 3.125 MG TABLET PO ×3 (00:03→16:06)
[2023-10-20] MEDS: Pantoprazole Sodium 40 MG Tablet PO ×3 (00:03→22:19)
[2023-10-20] MEDS: 0.9% Saline Lock 10 ML Syringe IV ×2 (00:03→22:18)
[2023-10-20 00:51] LABS: Troponin-I HS 432 pg/mL (3.0-78.0)
[2023-10-20 01:53] LABS: M R Staph aureus DNA By PCR Negative (Negative); Probe Check PASS; Specimen Processing Control PASS
[2023-10-20] MEDS: Sucralfate 1 GM Tablet PO ×3 (06:18→22:19)
[2023-10-20 07:23] LABS: Absolute Lymphocyte Count 0.36 X10^3/uL (0.83-4.51); Absolute Neutrophil Count 5.7 X10^3/uL (2.0-7.7); Basophil# 0.03 X10^3/uL; Basophil% 0.4 % (0-1); Eosinophil# 0.07 X10^3/uL; Hematocrit 31.6 % (40-54); Hemoglobin 9.2 g/dL (13.0-16.5); Lymphocyte # 0.36 X10^3/ul (0.83-4.51); Lymphocyte % 5.4 % (19-41); Mean Corp Hgb Conc 29.1 g/dL (32-36); Mean Corpuscular Hgb 27.1 pg (27.0-32.0); Mean Corpuscular Volume 93.2 fL (80-94); Mean Platelet Vol. 11.9 fl (6.2-12.0); Monocyte# 0.57 X10^3/uL; Monocyte% 8.5 % (0-10); NRBC Flagged by Analyzer 0 % (0-5); Neutrophil # 5.65 X10^3/uL (2.7-7.7); Neutrophil % 84.3 % (47-70); POSITIVE COUNT YES; POSITIVE DIFFERENTIAL YES; RBC Distribution Width CV 18.6 % (11.6-14.6); RBC Distribution Width SD 63.4 fl (35.1-43.9); Red Blood Count 3.39 M/mm3 (4.6-6.2); White Blood Count 6.7 K/mm3 (4.4-11.0)
[2023-10-20 07:54] LABS: AST(SGOT) 19 U/L (15-37); Alanine Aminotransfer ALT/SGPT 17 U/L (16-61); Albumin, Serum 2.6 g/dL (3.2-5.0); Alkaline Phosphatase 76 U/L (45-117); Anion Gap 14 (5-15); BUN 104 mg/dL (7-18); BUN/Creat Ratio 13.9 RATIO (10-20); Calcium,Total 8.6 mg/dL (8.5-10.1); Chloride 102 mmol/L (98-107); Creatinine, Serum 7.49 mg/dL (0.70-1.30); EST Glomerular Filtration Rate 8 mL/min (>60); Est Glom Filt Rate - Afr Amer 9 mL/min (>60); Estimated Creatinine Clearance 9.25 ml/min; Globulin 2.6 g/dL (2.2-4.2); Glucose 72 mg/dL (74-106); Potassium 4.6 mmol/L (3.5-5.1); Protein, Total 5.2 g/dL (6.4-8.2); Sodium Level 139 mmol/L (136-145)
--- NOTE | 2023-10-20 08:01 | PCM.CONS.R ---
Assessment & Plan Assessment/Plan (1) ESRD (end stage renal disease) on dialysis: PLAN: dialysis MWF (2) Noncompliance of patient with renal dialysis: PLAN: refusal of dialysis treatments after arriving to the dialysis center, shortens his treatments to 1 or 2 hrs. Discussed hospice with pt but declined in the past but demands to come off dialysis or refuses treatments. (3) Atrial fibrillation: QUALIFIERS: Atrial fibrillation type: unspecified chronic Qualified Code(s): I48.20 - Chronic atrial fibrillation, unspecified (4) History of GI bleed: PLAN: hgb stable (5) Anemia: PLAN: hgb 9.5g. LUCHO therapy (6) Elevated troponin: PLAN: dialysis pt HPI Consult Data Date of Consult: 10/21/23 HPI Narrative Reason for Consultation: ESRD HD MWF HPI Narrative: RIA MARIANO, is a 78 M who presents to ED yesterday after dialysis for complaints of SOB, chest pain, confusion, tremors without fever or chills at dialysis center. He has a history of noncompliance with his dialysis. Refused dialysis Tuesday, Tuesday, and shortened his treatments AMA on multiple occasions including Tuesday after 1 hour of treatment, agreed to stay for 3:30 hours of his 3:45 hours of his treatment yesterday. He is switched to MWF schedule this week due to transportation issues from [facility]. He declined hospice or termination of dialysis even when he verbalizes he does not want to do dialysis. He has been hospitalized multiple times for GI bleed. Hgb stable at 9.5g. BUN 104 creatinine 7.49 today. Next dialysis Tuesday. [facility]LY [facility], [facility] Medical History (Updated 10/20/23 @ 08:[address] Sonia He, ) Anemia Anemia requiring transfusions Aortic root dilatation Arthritis Atrial fibrillation Bladder cancer Cancer Cardiology follow-up encounter (~04/04/23) CHF (congestive heart failure) Chronic anticoagulation CKD (chronic kidney disease) stage 5, GFR less than 15 ml/min Coronary artery disease Dialysis patient Duodenal ulcer ESRD (end stage renal disease) on dialysis Essential hypertension Former smoker GI bleed Hepatic cyst History of DVT (deep vein thrombosis) History of echocardiogram (~06/30/22) History of pulmonary embolism History of solitary pulmonary nodule History of stress test (~05/03/22) HIT (heparin-induced thrombocytopenia) HLD (hyperlipidemia) Hyperparathyroidism Iron deficiency anemia Left upper chest discomfort Loss of hearing Low iron Lower gastrointestinal bleeding Lymphoma Preop cardiovascular exam Renal calculus Sleep apnea VTE (venous thromboembolism) Wears dentures Wears glasses Wears partial dentures Wide-complex tachycardia Home Medications budesonide 3 mg capsule,delayed,extended release 9 mg PO DAILY stomach 06/16/23 [History Last Taken Unknown] vitamin B complex-vitamin C-folic acid 0.8 mg tablet (Bibiana-Leoncio) 1 tab PO DAILY supplement 06/16/23 [History Last Taken Unknown] clopidogrel 75 mg tablet 75 mg PO DAILY #0 tabs 06/18/23 [Rx Last Taken Unknown] midodrine 5 mg tablet 10 mg PO [facility] blood pressure-dialysis 07/28/23 [History Last Taken Unknown] amiodarone 200 mg tablet 200 mg PO DAILY heart rate 08/31/23 [History Last Taken Unknown] carvedilol 3.125 mg tablet 3.125 mg PO BID HIGH BLOOD PRESSURE 08/31/23 [History Last Taken Unknown] pantoprazole 40 mg tablet,delayed release 40 mg PO BID reflux 08/31/23 [History Last Taken Unknown] polyethylene glycol 3350 17 gram/dose oral powder (ClearLax) 17 g PO DAILY PRN constipation 08/31/23 [History Last Taken Unknown] sucralfate 1 gram tablet 1 g PO 4X/DAY reflux 08/31/23 [History Last Taken Unknown] acetaminophen 325 mg tablet 650 mg (2 x 325 mg) PO Q6H PRN PRN Pain 1-10 Or Fever>100.7 #0 tabs 09/18/23 [Rx Last Taken Unknown] albuterol sulfate 2.5 mg/3 mL (0.083 %) solution for nebulization 2.5 mg (3 mL) inhalation Q4H PRN bronchospasm #0 mL 09/18/23 [Rx Last Taken Unknown] food supplemt, lactose-reduced 0.08 gram-1.5 kcal/mL oral liquid (Ensure Plus High Protein) 120 ml PO TIDCM #0 mL 09/18/23 [Rx Last Taken Unknown] menthol 0.44 %-zinc oxide 20.6 % topical ointment (Calmoseptine) 1 applic topical BID #0 grams 09/18/23 [Rx Last Taken Unknown] apixaban 2.5 mg tablet (Eliquis) 2.5 mg PO BID 10/19/23 [History Last Taken Unknown] vitamin B complex-vitamin C-folic acid 0.8 mg tablet (Dialyvite 800) 1 tab PO DAILY 10/19/23 [History Last Taken Unknown] Allergy/AdvReac Type Severity Reaction Status Date / Time Iodinated Contrast Media Allergy Intermediate KIDNEY Verified 10/19/23 16:35 FAILURE enoxaparin [From Lovenox] Allergy Other Verified 10/19/23 16:35 heparin Allergy Other Verified 10/19/23 16:35 aspirin AdvReac Other Verified 10/19/23 16:35 Family History Father Cancer lung Arrhythmia Brother Cancer Mother Dementia Surgical History AV fistula H/O total cystectomy History of bladder surgery History of cataract extraction History of corrected cleft lip and palate History of foot surgery History of tonsillectomy S/P peripheral artery angioplasty with stent placement Social History household members: none Smoking Status: Former smoker how long ago did patient quit smoking: Started age 7, stopped at 17, started again 22-2 ppd until quit 2008 alcohol intake: never substance use type: does not use caffeine: No ROS ROS Narrative tremors at dialysis due to noncompliance with dialysis treatments, generalized weakness, debility. Keturah lift used to check weights at dialysis center. Pt unable to stand Constitutional Constitutional: Denies chills or fever(s) Eyes Eyes: Denies loss of vision ENT HEENT: Denies nasal congestion Cardiovascular Cardiovascular: Reports chest pain; Denies diaphoresis or syncope Respiratory/Chest Respiratory/Chest: Reports shortness of breath at rest; Denies dry cough or productive cough Gastrointestinal Gastrointestinal: Denies abdominal pain, anorexia or diarrhea Musculoskeletal Musculoskeletal: Reports tremors and other Details: gen weakness Integumentary Integumentary: Reports other Details: resolving toe infection s/p partial amputation Neurologic Neurologic: Reports weakness Psychiatric Psychiatric: Reports anxiety and depression Hematologic/Lymphatic Hematologic/Lymphatic: Reports anemia and easy bruising Physical Exam Const alert and oriented x3 General Appearance: anxious and frail Resp clear to auscultation bilaterally Auscultation: diminished lung sounds Cardio Rhythm: abnormal rhythm GI non-tender and non-distended Auscultation: normoactive bowel sounds Palpation: soft Extremity no clubbing, cyanosis or edema General Extremity: AV fistula Skin General Skin Exam: ecchymosis Neuro Sensorium / Orientation: awake and alert Psych cooperative Lab / Micro Data Attestation: I reviewed the patient's lab results. (from 10/20/23 and 10/21/23) 10/21/23 06:25 10/21/23 06:25 Labs: Laboratory Results - last 24 hr 10/19/23 17:01: WBC 7.1, RBC 3.44 L, Hgb 9.5 L, Hct 31.7 L, MCV 92.2, MCH 27.6, MCHC 30.0 L, RDW Std Deviation 63.6 H, RDW Coeff of Lencho 18.8 H, Plt Count 41 L*, MPV TNP, Immature Gran % (Auto) 0.300, Neut % (Auto) 88.9 H, Lymph % (Auto) 2.9 L, [place] % (Auto) 7.7, Eos % (Auto) 0.1, Baso % (Auto) 0.1, Absolute Neuts (auto) 6.3, Absolute Lymphs (auto) 0.21 L, Nucleated RBC % 0.3, Differential Comment SCANNED, Diff Path Review October, Sodium 140, Potassium 4.2, Chloride 101, Carbon Dioxide 25.0, Anion Gap 14, BUN 89 H, Creatinine 6.21 H, Estim Creat Clear Calc 11.20, Est GFR (MDRD) Af Amer 11 L, Est GFR (MDRD) Non-Af 9 L, BUN/Creatinine Ratio 14.3, Glucose 110 H, Calcium 8.8, Total Bilirubin 0.80, AST 15, ALT 17, Alkaline Phosphatase 89, Troponin I High Sens 465 H*, Total Protein 5.9 L, Albumin 2.7 L, Globulin 3.2, Albumin/Globulin Ratio 0.8 L 10/19/23 18:13: Urine Color Yellow, Urine Clarity Sl. Cloudy, Urine pH 8.0, Ur Specific [place] 1.015, Urine Protein 100 H, Urine Glucose (UA) Normal, Urine Ketones Negative, Urine Occult Blood 150 H, Urine Nitrite Negative, Urine Bilirubin 1 H, Urine Urobilinogen Normal, Ur Leukocyte Esterase 100 H, Urine RBC Cancelled, Urine WBC Cancelled, Ur Squamous Epith Cells Cancelled, Ur Transition Epith Cell Cancelled, Ur Renal Epithelial Cell Cancelled, Calcium Oxalate Crystal Cancelled, Uric Acid Crystals Cancelled, Triple Phos Crystals Cancelled, Other Crystals Cancelled, Amorphous Sediment Cancelled, Urine Bacteria Cancelled, Hyaline Casts Cancelled, Fine Granular Casts Cancelled, Coarse Granular Casts Cancelled, Waxy Casts Cancelled, RBC Casts Cancelled, WBC Casts Cancelled, Urine Mucus Cancelled, Urine Trichomonas Cancelled, Urine Yeast Cancelled 10/19/23 19:30: Troponin I High Sens 428 H* 10/19/23 21:40: Phosphorus 4.0, Magnesium 1.9 10/19/23 23:37: MRSA (PCR) Negative 10/19/23 23:59: Troponin I High Sens 432 H* 10/20/23 06:15: Sodium 139, Potassium 4.6, Chloride 102, Carbon Dioxide 23.0, Anion Gap 14, BUN 104 H*, Creatinine 7.49 H*, Estim Creat Clear Calc 9.25, Est GFR (MDRD) Af Amer 9 L, Est GFR (MDRD) Non-Af 8 L, BUN/Creatinine Ratio 13.9, Glucose 72 L, Calcium 8.6, Total Bilirubin 0.70, AST 19, ALT 17, Alkaline Phosphatase 76, Total Protein 5.2 L, Albumin 2.6 L, Globulin 2.6, Albumin/Globulin Ratio 1.0 Micro: Microbiology 10/19/23 23:39 Mucosa - Nasopharyngeal Respiratory Panel (PCR) - Final 10/19/23 17:45 Mucosa - Nose SARS-CoV-2, Influenza & RSV (PCR) - Final Imaging Radiology Impression Chest X-Ray 10/19/23 17:35 IMPRESSION: Patchy infiltrate right lower lung field suspicious for pneumonia. Possible small left pleural effusion. Recommend short-term follow-up to resolution. Electronically Signed: Edwin Santoyo MD at 19:42 EDT ,
[2023-10-20 08:18] LABS: Platelet Count 49 K/mm3 (150-450)
[2023-10-20] MEDS: Vitamin B Comp W-C Capsule 1 CAP PO (09:15)
[2023-10-20] MEDS: Amiodarone 200 MG Tablet PO (09:15)
[2023-10-20] MEDS: Folic Acid/Vitamin B Comp W-C 1 Capsule 1 CAP PO (09:16)
[2023-10-20] MEDS: Budesonide 3 MG CAPSULE.EC 9 MG PO (09:16)
[2023-10-20] MEDS: Clopidogrel Bisulfate 75 MG Tablet PO (09:16)
[2023-10-20] MEDS: Piperacil/Tazobactam 3.375 GM in 0.9% Normal Saline (50mL MB+) 50 ML IV ×2 (09:34→22:17)
--- NOTE | 2023-10-20 10:46 | CASEMGMT ---
SW was informed that patient's Faculty Support Coordinator was inquiring if patient could go to [facility] instead of back to [facility]. SW met with patient. Introduced self and role at [facility]. Patient state he would like to return to [facility] at discharge. SW asked patient about going to [facility] and patient stated he prefers to go back to [facility]. Abbie FRANCIS
--- NOTE | 2023-10-20 11:02 | PCM.RX.CS ---
Consult Antibiotic Management Pharmacy has been consulted to manage selected antibiotic: Vancomycin Type of Intervention Type of Consult: New start Suspected Infection Suspected Infection: Pneumonia Prior Doses of Antibiotics Prior Doses of Antibiotics Received/Current Regimen: Patient received 1500mg iv x 1 on 10.19.23 @0220. Labs Labs: Sodium 139 mmol/L (136-145) 10/20/23 06:15 Potassium 4.6 mmol/L (3.5-5.1) 10/20/23 06:15 Chloride 102 mmol/L (98-107) 10/20/23 06:15 Carbon Dioxide 23.0 mmol/L (21.0-32.0) 10/20/23 06:15 Anion Gap 14 (5-15) 10/20/23 06:15 BUN 104 mg/dL (7-18) H* 10/20/23 06:15 Creatinine 7.49 mg/dL (0.70-1.30) H* 10/20/23 06:15 Est GFR (MDRD) Af Amer 9 mL/min (>60) L 10/20/23 06:15 Est GFR (MDRD) Non-Af 8 mL/min (>60) L 10/20/23 06:15 BUN/Creatinine Ratio 13.9 RATIO (10-20) 10/20/23 06:15 Glucose 72 mg/dL (74-106) L 10/20/23 06:15 Microbiology Microbiology: Microbiology 10/19/23 23:39 Mucosa - Nasopharyngeal Respiratory Panel (PCR) - Final 10/19/23 17:45 Mucosa - Nose SARS-CoV-2, Influenza & RSV (PCR) - Final Dosing Weight Weight used for dosin.7 kg Estimated Creatinine Clearance Estimated Creatinine Clearance: HD patient Goal Trough Goal Trough: 15-20 mcg/mL Pharmacy Plan for Drug Dosing Pharmacy Plan for Drug Dosing: Tentative dialysis schedule is . Further dosing will be based on when gets dialysis. Pharmacy Service will continue to monitor and adjust dosing as required.
--- NOTE | 2023-10-20 11:02 | CASEMGMT ---
Discharge Planning Updates sent to [facility] via [facility]. Na Gordon, Discharge Planning Asst.
--- NOTE | 2023-10-20 12:49 | PN_ITS ---
Subjective Subjective Patient seen and examined. He was lying in bed. He had no active complaints. He admits to an occasional cough, with no sputum production. He is on 2 L of oxygen. Review of systems otherwise negative. Objective Data Objective Data Vital Signs: Vital Signs Temp Pulse Resp BP Pulse Ox O2 Del Method O2 Flow Rate 97.1 F L 89 19 H 126/82 H 98 Nasal Cannula 2 10/20/23 12:10 10/20/23 12:10 10/20/23 12:10 10/20/23 12:10 10/20/23 12:10 10/20/23 12:10 10/20/23 12:10 Oxygen Flow Rate (L/min) 2 Oxygen Delivery Method Nasal Cannula Weight: 202 lb 13.204 oz Body Mass Index (BMI) 29.9 Intake & Output: Intake and Output for Last 24 Hours 10/18/23 10/19/23 10/20/23 23:59 23:59 23:59 Intake Total 50 / 50 930 / 930 Output Total 0 / 0 0 / 0 Balance 50 / 50 930 / 930 Lab / Micro Data 10/20/23 06:15 10/20/23 06:15 Labs: Laboratory Results - last 24 hr 10/19/23 17:01: WBC 7.1, RBC 3.44 L, Hgb 9.5 L, Hct 31.7 L, MCV 92.2, MCH 27.6, MCHC 30.0 L, RDW Std Deviation 63.6 H, RDW Coeff of Lencho 18.8 H, Plt Count 41 L*, MPV TNP, Immature Gran % (Auto) 0.300, Neut % (Auto) 88.9 H, Lymph % (Auto) 2.9 L, [place] % (Auto) 7.7, Eos % (Auto) 0.1, Baso % (Auto) 0.1, Absolute Neuts (auto) 6.3, Absolute Lymphs (auto) 0.21 L, Nucleated RBC % 0.3, Differential Comment SCANNED, Diff Path Review October foll, Sodium 140, Potassium 4.2, Chloride 101, Carbon Dioxide 25.0, Anion Gap 14, BUN 89 H, Creatinine 6.21 H, Estim Creat Clear Calc 11.20, Est GFR (MDRD) Af Amer 11 L, Est GFR (MDRD) Non-Af 9 L, BUN/Creatinine Ratio 14.3, Glucose 110 H, Calcium 8.8, Total Bilirubin 0.80, AST 15, ALT 17, Alkaline Phosphatase 89, Troponin I High Sens 465 H*, Total Protein 5.9 L, Albumin 2.7 L, Globulin 3.2, Albumin/Globulin Ratio 0.8 L 10/19/23 18:13: Urine Color Yellow, Urine Clarity Sl. Cloudy, Urine pH 8.0, Ur Specific [place] 1.015, Urine Protein 100 H, Urine Glucose (UA) Normal, Urine Ketones Negative, Urine Occult Blood 150 H, Urine Nitrite Negative, Urine Bilirubin 1 H, Urine Urobilinogen Normal, Ur Leukocyte Esterase 100 H, Urine RBC Cancelled, Urine WBC Cancelled, Ur Squamous Epith Cells Cancelled, Ur Transition Epith Cell Cancelled, Ur Renal Epithelial Cell Cancelled, Calcium Oxalate Crystal Cancelled, Uric Acid Crystals Cancelled, Triple Phos Crystals Cancelled, Other Crystals Cancelled, Amorphous Sediment Cancelled, Urine Bacteria Cancelled, Hyaline Casts Cancelled, Fine Granular Casts Cancelled, Coarse Granular Casts Cancelled, Waxy Casts Cancelled, RBC Casts Cancelled, WBC Casts Cancelled, Urine Mucus Cancelled, Urine Trichomonas Cancelled, Urine Yeast Cancelled 10/19/23 19:30: Troponin I High Sens 428 H* 10/19/23 21:40: Phosphorus 4.0, Magnesium 1.9 10/19/23 23:37: MRSA (PCR) Negative 10/19/23 23:59: Troponin I High Sens 432 H* 10/20/23 06:15: WBC 6.7, RBC 3.39 L, Hgb 9.2 L, Hct 31.6 L, MCV 93.2, MCH 27.1, MCHC 29.1 L, RDW Std Deviation 63.4 H, RDW Coeff of Lencho 18.6 H, Plt Count 49 L*, MPV 11.9, Immature Gran % (Auto) 0.400, Neut % (Auto) 84.3 H, Lymph % (Auto) 5.4 L, [place] % (Auto) 8.5, Eos % (Auto) 1.0, Baso % (Auto) 0.4, Absolute Neuts (auto) 5.7, Absolute Lymphs (auto) 0.36 L, Nucleated RBC % 0, Diff Path Review May foll, Sodium 139, Potassium 4.6, Chloride 102, Carbon Dioxide 23.0, Anion Gap 14, BUN 104 H*, Creatinine 7.49 H*, Estim Creat Clear Calc 9.25, Est GFR (MDRD) Af Amer 9 L, Est GFR (MDRD) Non-Af 8 L, BUN/Creatinine Ratio 13.9, Glucose 72 L, Calcium 8.6, Total Bilirubin 0.70, AST 19, ALT 17, Alkaline Phosphatase 76, Total Protein 5.2 L, Albumin 2.6 L, Globulin 2.6, Albumin/Globulin Ratio 1.0 Micro: Microbiology 10/19/23 23:39 Mucosa - Nasopharyngeal Respiratory Panel (PCR) - Final 10/19/23 17:45 Mucosa - Nose SARS-CoV-2, Influenza & RSV (PCR) - Final Radiography Diagnostic Testing: Radiology Impression Chest X-Ray 10/19/23 17:35 IMPRESSION: Patchy infiltrate right lower lung field suspicious for pneumonia. Possible small left pleural effusion. Recommend short-term follow-up to resolution. Electronically Signed: Edwin Santoyo MD at 19:42 EDT , Physical Exam Const alert, oriented x3 and no apparent distress Constitutional Narrative: frail and weak HEENT normocephalic, head/scalp atraumatic, moist oral mucous membranes and oropharynx normal Eyes PERRL and EOMs intact bilaterally Neck no lymphadenopathy and supple Lymph Lymphatic: no lymphadenopathy noted and no lymphedema noted Resp Resp Narrative: moderately diminished breath sounds bibasally, few crackles. On 2L of oxygen by nasal canula Cardio regular rate, regular rhythm, S1 normal heart sound, S2 normal heart sound and no murmurs GI normal to inspection, nondistended, normoactive bowel sounds, soft to palpation, non-tender and non-distended Extremity normal capillary refill, no clubbing, cyanosis or edema and no calf tenderness Extremity Narrative: AV fistula in LUE Skin General Skin Exam: no breakdown Neuro CN's II-XII intact bilaterally, no focal motor deficits and no sensory deficits noted Motor Exam: strength 5/5 throughout and general weakness Psych thought process normal, cooperative and affect normal Appearance: appropriate Assessment & Plan Assessment/Plan (1) Pneumonia: PLAN: Plan #Hypoxia due to right lower lobe pneumonia * Concern is for health assisted pneumonia as was recently in the hospital and also goes for dialysis. * On IV vancomycin and Zosyn. Urine for strep and Legionella pending as well as sputum cultures pending. * Breathing treatments bronchodilators. Titrate oxygen to maintain saturation above 90%. # * Chronically elevated troponin: * Patient not having any active chest pain. EKG shows no acute ST changes. * Initial troponin was 465 and repeat was down to 428. * On Plavix. * hold off on any further workup. #Peripheral artery disease: Follows up with vascular surgeon outpatient basis. S/p left lower extremity angioplasty. On Plavix. Also on statin. #Recent GI bleed: * Was recently admitted for GI bleed and required blood. * Eliquis was not resumed after that admission. O * n PPI and Carafate. * Did have a GI nuclear scan on 09/14/2023 which showed increased concentration of the nuclear med in the left mid and lower abdominal cavity consistent with active GI hemorrhage with origin likely thought to be the distal transverse colon. * Will need follow-up with GI on outpatient basis. * #Recent history of left great toe osteomyelitis: Recently had left great toe amputation due to osteomyelitis. Follow-up with podiatry on outpatient basis. #Chronic thrombocytopenia: Platelets today of 49. More 41 on admission. Will continue to monitor closely. #Heart failure preserved ejection fraction: Not in exacerbation. Has known EF of 60%. On statin and Coreg #ESRD: Hemodialysis. Nephrology on board. #Paroxysmal A-fib: On amiodarone and Coreg. Eliquis discontinued recently due to recurrent GI bleed. #History of DVT PE: Currently not anticoagulated due to recent history of GI bleed #Hypertension: On Coreg. IV hydralazine as needed. 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 Also on chemotherapy for his lymphoma. To follow-up on outpatient basis with urology a nd oncology as needed. #DVT prophylaxis: SCDs Charges/Coding Visit Charges Inpatient E&M: 85100 Subs Hosp L2
[2023-10-20 13:27] LABS: Pathologist Review Reviewed
[2023-10-20] MEDS: Acetaminophen 325 MG Tablet 650 MG PO (18:52)
[2023-10-21] VITALS (16 sets, daily range): BP systolic 108–249; BP diastolic 47–78; PULSE 70–96; RESP 15–22; TEMP 36.4–37; O2SAT 93–100; BMI 31.3; BMI 29.9
[2023-10-21] MEDS: Acetaminophen 325 MG Tablet 650 MG PO (02:35)
[2023-10-21] MEDS: Sucralfate 1 GM Tablet PO ×4 (06:10→20:06)
[2023-10-21] MEDS: Budesonide Respules 0.5 MG/2 ML AMPUL.NEB. INHALATION ×2 (06:52→20:02)
[2023-10-21 07:16] LABS: Absolute Neutrophil Count 5.7 X10^3/uL (2.0-7.7); Basophil# 0.03 X10^3/uL; Basophil% 0.4 % (0-1); Eosinophil# 0.11 X10^3/uL; Eosinophils% 1.6 % (0-5); Hemoglobin 8.8 g/dL (13.0-16.5); Lymphocyte % 5.8 % (19-41); Mean Corp Hgb Conc 29.3 g/dL (32-36); Mean Corpuscular Hgb 27.5 pg (27.0-32.0); Mean Corpuscular Volume 93.8 fL (80-94); Mean Platelet Vol. 12.4 fl (6.2-12.0); Monocyte# 0.63 X10^3/uL; Monocyte% 9.2 % (0-10); NRBC Flagged by Analyzer 0 % (0-5); Neutrophil # 5.66 X10^3/uL (2.7-7.7); Neutrophil % 82.6 % (47-70); POSITIVE COUNT YES; POSITIVE DIFFERENTIAL YES; Platelet Count 69 K/mm3 (150-450); RBC Distribution Width CV 18.2 % (11.6-14.6); RBC Distribution Width SD 62.4 fl (35.1-43.9); White Blood Count 6.9 K/mm3 (4.4-11.0)
[2023-10-21 07:30] LABS: Differential Indicated SCAN CRITERIA MET
[2023-10-21 07:57] LABS: Differential Comment SCANNED; Platelet Estimate MKD DEC (ADEQ); Polychromasia 1+
[2023-10-21] MEDS: 0.9% Normal Saline 1,000 ML IV.SOLN. 1000 ML OPERA.SITE (07:58)
[2023-10-21] MEDS: PureFlow B 2K Dialysis Soln 1 BAG 6 BAG PF (07:58)
[2023-10-21 08:42] LABS: Anion Gap 15 (5-15); BUN 126 mg/dL (7-18); BUN/Creat Ratio 14.2 RATIO (10-20); Calcium,Total 9.4 mg/dL (8.5-10.1); Chloride 104 mmol/L (98-107); Creatinine, Serum 8.85 mg/dL (0.70-1.30); EST Glomerular Filtration Rate 6 mL/min (>60); Est Glom Filt Rate - Afr Amer 8 mL/min (>60); Glucose 141 mg/dL (74-106); Potassium 4.3 mmol/L (3.5-5.1); Sodium Level 141 mmol/L (136-145)
--- NOTE | 2023-10-21 09:51 | PN_ITS ---
Progress Note currently undergoing dialysis. VSS LUCHO for anemia. DW dialysis nurse. ESRD MWF at [facility] dialysis unit if discharged to [facility] or dialysis [facility] at [facility] if pt agrees to NH placement.
--- NOTE | 2023-10-21 09:51 | PCM.PN.BLA ---
Progress Note currently undergoing dialysis. VSS LUCHO for anemia. DW dialysis nurse. ESRD MWF at [facility] dialysis unit if discharged to [facility] or dialysis [facility] at [facility] if pt agrees to NH placement.
--- NOTE | 2023-10-21 10:18 | PN_ITS ---
Subjective Subjective Patient seen and examined. He was having dialysis at time of my evaluation. He had no active complaints. Denied any fever, chills, palpitations, dizziness, nausea or vomiting or any other symptoms. Review of systems otherwise negative. He is on 2 L of oxygen. Objective Data Objective Data Vital Signs: Vital Signs Temp Pulse Resp BP Pulse Ox O2 Del Method O2 Flow Rate 97.6 F L 76 18 122/74 H 100 Nasal Cannula 2 10/21/23 03:48 10/21/23 09:56 10/21/23 09:56 10/21/23 09:56 10/21/23 09:56 10/21/23 09:56 10/21/23 09:56 Oxygen Flow Rate (L/min) 2 Oxygen Delivery Method Nasal Cannula Weight: 212 lb 4.882 oz Body Mass Index (BMI) 31.3 Intake & Output: Intake and Output for Last 24 Hours 10/19/23 10/20/23 10/21/23 23:59 23:59 23:59 Intake Total 50 / 50 2039 / 2039 150 / 150 Output Total 0 / 0 0 / 0 0 / 0 Balance 50 / 50 2039 / 2039 150 / 150 Lab / Micro Data 10/21/23 06:25 10/21/23 06:25 Labs: Laboratory Results - last 24 hr 10/19/23 17:01: Diff Path Review Reviewed 10/21/23 06:25: WBC 6.9, RBC 3.20 L, Hgb 8.8 L, Hct 30.0 L, MCV 93.8, MCH 27.5, MCHC 29.3 L, RDW Std Deviation 62.4 H, RDW Coeff of Lencho 18.2 H, Plt Count 69 L, MPV 12.4 H, Immature Gran % (Auto) 0.400, Neut % (Auto) 82.6 H, Lymph % (Auto) 5.8 L, [place] % (Auto) 9.2, Eos % (Auto) 1.6, Baso % (Auto) 0.4, Absolute Neuts (auto) 5.7, Absolute Lymphs (auto) 0.40 L, Nucleated RBC % 0, Differential Comment SCANNED, Platelet Estimate MKD DEC, Polychromasia 1+, Sodium 141, Potassium 4.3, Chloride 104, Carbon Dioxide 22.0, Anion Gap 15, BUN 126 H*, Creatinine 8.85 H*, Estim Creat Clear Calc 8.00, Est GFR (MDRD) Af Amer 8 L, Est GFR (MDRD) Non-Af 6 L, BUN/Creatinine Ratio 14.2, Glucose 141 H, Calcium 9.4 Micro: Microbiology 10/19/23 23:39 Mucosa - Nasopharyngeal Respiratory Panel (PCR) - Final 10/19/23 17:45 Mucosa - Nose SARS-CoV-2, Influenza & RSV (PCR) - Final Physical Exam Const alert, oriented x3 and no apparent distress Constitutional Narrative: frail and weak HEENT normocephalic, head/scalp atraumatic, moist oral mucous membranes and oropharynx normal Eyes PERRL and EOMs intact bilaterally Neck no lymphadenopathy and supple Lymph Lymphatic: no lymphadenopathy noted and no lymphedema noted Resp Resp Narrative: moderately diminished breath sounds bibasally, few crackles. On 2L of oxygen by nasal canula Cardio regular rate, regular rhythm, S1 normal heart sound, S2 normal heart sound and no murmurs GI normal to inspection, nondistended, normoactive bowel sounds, soft to palpation, non-tender and non-distended Extremity normal capillary refill, no clubbing, cyanosis or edema and no calf tenderness Extremity Narrative: AV fistula in LUE, undergoing dialysis General Extremity: no tenderness to palpation of joints or extremities Skin General Skin Exam: no breakdown Neuro CN's II-XII intact bilaterally, no focal motor deficits and no sensory deficits noted Motor Exam: strength 5/5 throughout and general weakness Psych thought process normal, cooperative and affect normal Appearance: appropriate Assessment & Plan Assessment/Plan (1) Pneumonia: PLAN: Plan #Hypoxia due to right lower lobe pneumonia * Concern is for health assisted pneumonia as was recently in the hospital and also goes for dialysis. * On IV vancomycin and Zosyn. Urine for strep and Legionella pending as well as sputum cultures pending. * Breathing treatments bronchodilators. Titrate oxygen to maintain saturation above 90%. * blood cultures pending. Respiratory panel negative. * Chronically elevated troponin: * Patient not having any active chest pain. EKG shows no acute ST changes. * Initial troponin was 465 and repeat was down to 428. * On Plavix. * hold off on any further workup. #Peripheral artery disease: Follows up with vascular surgeon outpatient basis. S/p left lower extremity angioplasty. On Plavix. Also on statin. #Recent GI bleed: * Was recently admitted for GI bleed and required blood. * Eliquis was not resumed after that admission. O * n PPI and Carafate. * Did have a GI nuclear scan on 09/14/2023 which showed increased concentration of the nuclear med in the left mid and lower abdominal cavity consistent with active GI hemorrhage with origin likely thought to be the distal transverse colon. * Will need follow-up with GI on outpatient basis. * #Recent history of left great toe osteomyelitis: Recently had left great toe amputation due to osteomyelitis. Follow-up with podiatry on outpatient basis. #Chronic thrombocytopenia: Platelets today are 69. was 41 on admission and 49 yesterday. Will continue to monitor closely. #Heart failure preserved ejection fraction: Not in exacerbation. Has known EF of 60%. On statin and Coreg #ESRD: Hemodialysis. Nephrology on board. #Paroxysmal A-fib: On amiodarone and Coreg. Eliquis discontinued recently due to recurrent GI bleed. #History of DVT PE: Currently not anticoagulated due to recent history of GI bleed #Hypertension: On Coreg. IV hydralazine as needed. 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 Also on chemotherapy for his lymphoma. To follow-up on outpatient basis with urology and oncology as needed. #DVT prophylaxis: SCDs Charges/Coding Visit Charges Inpatient E&M: 90601 Subs Hosp L2
[2023-10-21] MEDS: Epoetin Alfa epbx 10,000 UNIT/ML 10000 UNIT IV (10:53)
--- NOTE | 2023-10-21 11:15 | CASEMGMT ---
Discharge Planning Updates sent via [facility] to [place]. Requested wknd fax for report. Awaiting response. Na Gordon, Discharge Planning Asst.
--- NOTE | 2023-10-21 11:25 | PCM.RX.CS ---
Consult Antibiotic Management Pharmacy has been consulted to manage selected antibiotic: Vancomycin Type of Intervention Type of Consult: Follow-up Suspected Infection Suspected Infection: Pneumonia Prior Doses of Antibiotics Prior Doses of Antibiotics Received/Current Regimen: Received 1500mg iv x 1 on 10.19.23. Labs Labs: Sodium 141 mmol/L (136-145) 10/21/23 06:25 Potassium 4.3 mmol/L (3.5-5.1) 10/21/23 06:25 Chloride 104 mmol/L (98-107) 10/21/23 06:25 Carbon Dioxide 22.0 mmol/L (21.0-32.0) 10/21/23 06:25 Anion Gap 15 (5-15) 10/21/23 06:25 BUN 126 mg/dL (7-18) H* 10/21/23 06:25 Creatinine 8.85 mg/dL (0.70-1.30) H* 10/21/23 06:25 Est GFR (MDRD) Af Amer 8 mL/min (>60) L 10/21/23 06:25 Est GFR (MDRD) Non-Af 6 mL/min (>60) L 10/21/23 06:25 BUN/Creatinine Ratio 14.2 RATIO (10-20) 10/21/23 06:25 Glucose 141 mg/dL (74-106) H 10/21/23 06:25 Microbiology Microbiology: Microbiology 10/19/23 23:39 Mucosa - Nasopharyngeal Respiratory Panel (PCR) - Final 10/19/23 17:45 Mucosa - Nose SARS-CoV-2, Influenza & RSV (PCR) - Final Dosing Weight Weight used for dosin.7 kg Estimated Creatinine Clearance Estimated Creatinine Clearance: HD patient Goal Trough Goal Trough: 15-20 mcg/mL Pharmacy Plan for Drug Dosing Pharmacy Plan for Drug Dosing: Patient getting dialysis today. Have ordered 750mg iv x 1 post dialysis per protocol. Random level ordered for before next dialysis session on Tue. 10.24.23. Pharmacy Service will continue to monitor and adjust dosing as required. Follow-Up Labs Follow-Up Labs: Trough: Other (vanco random level 10.24.23 @0600)
[2023-10-21] MEDS: Carvedilol 3.125 MG TABLET PO ×2 (11:41→17:32)
[2023-10-21] MEDS: Budesonide 3 MG CAPSULE.EC 9 MG PO (11:41)
[2023-10-21] MEDS: Amiodarone 200 MG Tablet PO (11:42)
[2023-10-21] MEDS: Pantoprazole Sodium 40 MG Tablet PO ×2 (11:42→20:06)
[2023-10-21] MEDS: Clopidogrel Bisulfate 75 MG Tablet PO (11:42)
[2023-10-21] MEDS: Vitamin B Comp W-C Capsule 1 CAP PO (11:43)
[2023-10-21] MEDS: Folic Acid/Vitamin B Comp W-C 1 Capsule 1 CAP PO (11:43)
[2023-10-21] MEDS: Menthol/Lanolin/Calamine/Znox 113 GM Tube 1 APPLIC TOPICAL ×2 (11:44→20:07)
[2023-10-21] MEDS: Ensure Plus High Protein 120 ML LIQUID PO (11:49)
[2023-10-21] MEDS: Piperacil/Tazobactam 3.375 GM in 0.9% Normal Saline (50mL MB+) 50 ML IV ×2 (11:54→20:10)
[2023-10-21] MEDS: Vancomycin HCl 750 MG in 0.9% Normal Saline (250mL Bag) 250 ML 250 MG IV (13:21)
[2023-10-21 14:31] LABS: Pathologist Review Reviewed
--- NOTE | 2023-10-21 14:52 | CHAPLAIN ---
Type of Pastoral Visit _x__ Initial Visit ___ Follow-up Visit ___ On-call Visit ___ General Patient Visit ___ Spiritual Assessment ___ Family Conference ___ Bereavement ___ Rapid Response ___ Code Blue ___ Other (describe below) Pastoral Care Referral From _x__ Patient ___ Family ___ Nurse ___ Physician ___ Supervisor Feed House ___ Fryer Line Helper ___ Other (describe below) Sacrament/Intervention _x__ Active listening ___ Anointing ___ Lutheran ___ Bereavement ___ Communion _x__ Klarissa exploration ___ ___ Life review _x__ Prayer ___ Reconciliation ___ Sacrament of Sick _x__ Supportive presence ___ Wedding ___ Other (describe below) Pastoral Comments patient initiates thoughts that he 'let things go' and that 'son tells me that I need to do more for myself'; pt speaks of God knowing what he needs and what is best; pt is given time to express his thoughts and feelings, prayer is welcomed; pt thanks this financial institution branch manager
[2023-10-21] MEDS: Nepro Liquid 120 ML LIQUID PO (20:07)
[2023-10-21] MEDS: Polyethylene Glycol 3350 17 GM PACKET PO (22:10)
[2023-10-22 02:41] VITALS: O2SAT 98
[2023-10-22 03:52] VITALS: BP 135/69; PULSE 82; RESP 20; TEMP 36.9; O2SAT 96
[2023-10-22 03:59] VITALS: BMI 31.3
[2023-10-22 05:35] LABS: Absolute Lymphocyte Count 0.37 X10^3/uL (0.83-4.51); Absolute Neutrophil Count 5.5 X10^3/uL (2.0-7.7); Basophil# 0.01 X10^3/uL; Basophil% 0.2 % (0-1); Eosinophil# 0.05 X10^3/uL; Eosinophils% 0.8 % (0-5); Hematocrit 28.4 % (40-54); Hemoglobin 8.3 g/dL (13.0-16.5); Lymphocyte # 0.37 X10^3/ul (0.83-4.51); Lymphocyte % 5.6 % (19-41); Mean Corp Hgb Conc 29.2 g/dL (32-36); Mean Corpuscular Hgb 27.2 pg (27.0-32.0); Mean Corpuscular Volume 93.1 fL (80-94); Mean Platelet Vol. 12.8 fl (6.2-12.0); Monocyte# 0.62 X10^3/uL; Monocyte% 9.4 % (0-10); NRBC Flagged by Analyzer 0.3 % (0-5); Neutrophil % 83.5 % (47-70); POSITIVE COUNT YES; POSITIVE DIFFERENTIAL YES; Platelet Count 70 K/mm3 (150-450); RBC Distribution Width CV 18.1 % (11.6-14.6); RBC Distribution Width SD 61.9 fl (35.1-43.9); Red Blood Count 3.05 M/mm3 (4.6-6.2); White Blood Count 6.6 K/mm3 (4.4-11.0)
[2023-10-22] MEDS: Acetaminophen 325 MG Tablet 650 MG PO ×2 (05:55→09:59)
[2023-10-22] MEDS: Sucralfate 1 GM Tablet PO ×2 (05:56→11:04)
[2023-10-22 06:37] LABS: Anion Gap 10 (5-15); BUN 103 mg/dL (7-18); BUN/Creat Ratio 14.3 RATIO (10-20); Calcium,Total 8.8 mg/dL (8.5-10.1); Chloride 107 mmol/L (98-107); EST Glomerular Filtration Rate 8 mL/min (>60); Est Glom Filt Rate - Afr Amer 10 mL/min (>60); Estimated Creatinine Clearance 9.84 ml/min; Glucose 139 mg/dL (74-106); Potassium 4.2 mmol/L (3.5-5.1); Sodium Level 141 mmol/L (136-145)
[2023-10-22 07:18] VITALS: PULSE 71; RESP 25; O2SAT 98
[2023-10-22] MEDS: Budesonide Respules 0.5 MG/2 ML AMPUL.NEB. INHALATION (07:18)
[2023-10-22 08:37] VITALS: BP 138/73; PULSE 83; RESP 16; TEMP 37.2; O2SAT 100
--- NOTE | 2023-10-22 08:38 | NURSING ---
Pt 100% on Room air. pt requesting nasal cannula for comfort at this time. Placed on 1 L
[2023-10-22] MEDS: Carvedilol 3.125 MG TABLET PO (09:57)
[2023-10-22] MEDS: Vitamin B Comp W-C Capsule 1 CAP PO (09:57)
[2023-10-22] MEDS: Budesonide 3 MG CAPSULE.EC 9 MG PO (09:57)
[2023-10-22] MEDS: Menthol/Lanolin/Calamine/Znox 113 GM Tube 1 APPLIC TOPICAL (09:58)
[2023-10-22] MEDS: Amiodarone 200 MG Tablet PO (09:58)
[2023-10-22] MEDS: Folic Acid/Vitamin B Comp W-C 1 Capsule 1 CAP PO (09:58)
[2023-10-22] MEDS: Nepro Liquid 120 ML LIQUID PO (09:59)
[2023-10-22] MEDS: Piperacil/Tazobactam 3.375 GM in 0.9% Normal Saline (50mL MB+) 50 ML IV (09:59)
[2023-10-22] MEDS: Clopidogrel Bisulfate 75 MG Tablet PO (09:59)
[2023-10-22] MEDS: Pantoprazole Sodium 40 MG Tablet PO (09:59)
[2023-10-22] MEDS: 0.9% Saline Lock 10 ML Syringe IV ×2 (10:00→13:09)
--- NOTE | 2023-10-22 11:39 | PCM.TXEXTCAR ---
Diet Diet Order/Speech Therapy: 10/21/23 14:51 Diet: Regular - General Dietary Modifications:: Sodium Restricted Is pt able to select menu?: Yes Routine Orders/Code Status Enema Type: Fleetz Enema Frequency: Daily PRN Suppository Type: Dulcolax 10mg O2 Frequency: PRN Keep PO Greater than or Equal to (%): 90 Wound(s) RICCI: Wound Type: Skin Tear BL heels: Wound Type: Pressure Injury Right Buttock: Wound Type: Open Area Therapies Weight Bearing: Weight bearing as tolerated Physical Therapy: Eval and Treat Occupational Therapy: Eval and Treat Problem/Diagnosis (1) Pneumonia: Status: Acute Code(s): J18.9 - Pneumonia, unspecified organism Plan #Hypoxia due to right lower lobe pneumonia Concern is for health assisted pneumonia as was recently in the hospital and also goes for dialysis. On IV vancomycin and Zosyn. Urine for strep and Legionella pending as well as sputum cultures pending. Breathing treatments bronchodilators. Titrate oxygen to maintain saturation above 90%. blood cultures pending. Respiratory panel negative. Chronically elevated troponin: Patient not having any active chest pain. EKG shows no acute ST changes. Initial troponin was 465 and repeat was down to 428. On Plavix. hold off on any further workup. #Peripheral artery disease: Follows up with vascular surgeon outpatient basis. S/p left lower extremity angioplasty. On Plavix. Also on statin. #Recent GI bleed: Was recently admitted for GI bleed and required blood. Eliquis was not resumed after that admission. O n PPI and Carafate. Did have a GI nuclear scan on 09/14/2023 which showed increased concentration of the nuclear med in the left mid and lower abdominal cavity consistent with active GI hemorrhage with origin likely thought to be the distal transverse colon. Will need follow-up with GI on outpatient basis. #Recent history of left great toe osteomyelitis: Recently had left great toe amputation due to osteomyelitis. Follow-up with podiatry on outpatient basis. #Chronic thrombocytopenia: Platelets today are 69. was 41 on admission and 49 yesterday. Will continue to monitor closely. #Heart failure preserved ejection fraction: Not in exacerbation. Has known EF of 60%. On statin and Coreg #ESRD: Hemodialysis. Nephrology on board. #Paroxysmal A-fib: On amiodarone and Coreg. Eliquis discontinued recently due to recurrent GI bleed. #History of DVT PE: Currently not anticoagulated due to recent history of GI bleed #Hypertension: On Coreg. IV hydralazine as needed. 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 Also on chemotherapy for his lymphoma. To follow-up on outpatient basis with urology and oncology as needed. #DVT prophylaxis: SCDs Allergies/Procedures Done in Hospital Allergies Iodinated Contrast Media Allergy (Intermediate, Verified 10/19/23 16:35) KIDNEY FAILURE enoxaparin [From Lovenox] Allergy (Verified 10/19/23 16:35) Other HIT heparin Allergy (Verified 10/19/23 16:35) Other HIT aspirin Adverse Reaction (Verified 10/19/23 16:35) Other BLEEDING Procedures: None Type of Care/Length of Stay Estimated LOS: Convalescent Care Less Than 30 days Type of Care Needed: Skilled Rehab Potential: Fair Prognosis: Fair Additional Orders/Day of Discharge Day of Discharge: 10/22/23 Dietary and Speech Recommendations Dietitian Recommendations/Changes: Change diet to Regular Sodium restricted diet Will change ensure plus high protein to [facility] Plan Admission Admit Date/Time: 10/19/23 21:10 Primary Reason for Your Visit: right lower lobe pneumonia Attending Provider: Sugar Rao Primary Care Provider: Martin Nunez Consulting Providers: Sonia He; Lisa James Instructions Patient Instructions: ED Pneumonia (Adult) Discharge Orders/Prescriptions Prescriptions: Continued budesonide 3 mg capsule,delayed,extend.release 9 mg PO DAILY Bibiana-Leoncio 0.8 mg tablet 1 tab PO DAILY clopidogrel 75 mg Tablet 75 mg PO DAILY Qty: 0 0RF midodrine 5 mg tablet 10 mg PO TUTHSA Rx Instructions: GIVE PRIOR TO DIALYSIS carvedilol 3.125 mg tablet 3.125 mg PO BID polyethylene glycol 3350 [ClearLax] 17 gram/dose powder 17 g PO DAILY PRN (Reason: constipation) amiodarone 200 mg tablet 200 mg PO DAILY sucralfate 1 gram Tablet 1 g PO 4X/DAY Rx Instructions: GIVE 1 TABLET BY MOUTH BEFORE MEAL AND AT BEDTIME pantoprazole 40 mg Tablet,Delayed Release (Dr/Ec) 40 mg PO BID acetaminophen 325 mg Tablet 650 mg PO Q6H PRN PRN (Reason: Pain 1-10 Or Fever>100.7) Qty: 0 0RF albuterol sulfate 2.5 mg /3 mL (0.083 %) Solution For Nebulization 2.5 mg inhalation Q4H PRN (Reason: bronchospasm) Qty: 0 0RF menthol-zinc oxide [Calmoseptine] 0.44-20.6 % Ointment 1 applic topical BID Qty: 0 0RF Protocol: *Topical Application Instructions APPLICATION INSTRUCTIONS: apply to affected areas Ensure Plus High Protein 0.08 gram-1.5 kcal/mL Liquid 120 ml PO TIDCM Qty: 0 0RF Eliquis 2.5 mg tablet 2.5 mg PO BID Dialyvite 800 0.8 mg tablet 1 tab PO DAILY Referrals / Follow Up: Martin Nunez DO [Primary Care Provider] - Within 2 Weeks Disposition Disposition (needs filled in before D/C Order can be placed): Intermediate Facility
--- NOTE | 2023-10-22 12:23 | NURSING ---
Pt's son, Paul, notified of patients impending discharge and leaf size picker time.
--- NOTE | 2023-10-22 12:51 | NURSING ---
Nursing report called to KRUPA Garza at [facility].
--- NOTE | 2023-10-22 12:56 | DS.PCM_ITS ---
Providers Date of Admission: 10/19/23 Date of Discharge: 10/22/23 Primary Care Physician: Dr. Martin Nunez, Consultations 10/19/23 23:05 Consult: Nephrology Routine Consulting Provider: Sonia He Reason for Consult: ESRD on HD MWF EMERGENT Consult: No MD Notified: Yes Date Notified: 10/19/23 Time Notified: 21:18 Method of Notification: Text Reason For Visit: PNA, ELEVATED TROP Diagnosis Discharge Diagnosis (1) Pneumonia: Status: Acute Code(s): J18.9 - Pneumonia, unspecified organism Plan #Hypoxia due to right lower lobe pneumonia * Concern is for health assisted pneumonia as was recently in the hospital and also goes for dialysis. * On IV vancomycin and Zosyn. Urine for strep and Legionella pending as well as sputum cultures pending. * Breathing treatments bronchodilators. Titrate oxygen to maintain saturation above 90%. * blood cultures pending. Respiratory panel negative. * Chronically elevated troponin: * Patient not having any active chest pain. EKG shows no acute ST changes. * Initial troponin was 465 and repeat was down to 428. * On Plavix. * hold off on any further workup. #Peripheral artery disease: Follows up with vascular surgeon outpatient basis. S/p left lower extremity angioplasty. On Plavix. Also on statin. #Recent GI bleed: * Was recently admitted for GI bleed and required blood. * Eliquis was not resumed after that admission. O * n PPI and Carafate. * Did have a GI nuclear scan on 09/14/2023 which showed increased concentration of the nuclear med in the left mid and lower abdominal cavity consistent with active GI hemorrhage with origin likely thought to be the distal transverse colon. * Will need follow-up with GI on outpatient basis. * #Recent history of left great toe osteomyelitis: Recently had left great toe amputation due to osteomyelitis. Follow-up with podiatry on outpatient basis. #Chronic thrombocytopenia: Platelets today are 69. was 41 on admission and 49 yesterday. Will continue to monitor closely. #Heart failure preserved ejection fraction: Not in exacerbation. Has known EF of 60%. On statin and Coreg #ESRD: Hemodialysis. Nephrology on board. #Paroxysmal A-fib: On amiodarone and Coreg. Eliquis discontinued recently due to recurrent GI bleed. #History of DVT PE: Currently not anticoagulated due to recent history of GI bleed #Hypertension: On Coreg. IV hydralazine as needed. 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 Also on chemotherapy for his lymphoma. To follow-up on outpatient basis with urology and oncology as needed. #DVT prophylaxis: SCDs Medications at Discharge Home Medications budesonide 3 mg capsule,delayed,extended release 9 mg PO DAILY stomach 06/16/23 vitamin B complex-vitamin C-folic acid 0.8 mg tablet (Bibiana-Leoncio) 1 tab PO DAILY supplement 06/16/23 clopidogrel 75 mg tablet 75 mg PO DAILY antiplatelet #0 tabs 06/18/23 midodrine 5 mg tablet 10 mg PO TUTA blood pressure-dialysis 07/28/23 amiodarone 200 mg tablet 200 mg PO DAILY heart rate 08/31/23 carvedilol 3.125 mg tablet 3.125 mg PO BID HIGH BLOOD PRESSURE 08/31/23 pantoprazole 40 mg tablet,delayed release 40 mg PO BID reflux 08/31/23 polyethylene glycol 3350 17 gram/dose oral powder (ClearLax) 17 g PO DAILY PRN constipation 08/31/23 sucralfate 1 gram tablet 1 g PO 4X/DAY reflux 08/31/23 acetaminophen 325 mg tablet 650 mg (2 x 325 mg) PO Q6H PRN PRN Pain 1-10 Or Fever>100.7 #0 tabs 09/18/23 albuterol sulfate 2.5 mg/3 mL (0.083 %) solution for nebulization 2.5 mg (3 mL) inhalation Q4H PRN bronchospasm #0 mL 09/18/23 food supplemt, lactose-reduced 0.08 gram-1.5 kcal/mL oral liquid (Ensure Plus High Protein) 120 ml PO TIDCM supplement #0 mL 09/18/23 menthol 0.44 %-zinc oxide 20.6 % topical ointment (Calmoseptine) 1 applic topical BID skin #0 grams 09/18/23 apixaban 2.5 mg tablet (Eliquis) 2.5 mg PO BID blood thinner 10/19/23 vitamin B complex-vitamin C-folic acid 0.8 mg tablet (Dialyvite 800) 1 tab PO DAILY vitamin 10/19/23 Hospital Course Operations None Procedures Dialysis Summary of Care Provided Minutes Spent on Discharge: 55 Hospital Course: Patient is a 77-year-old male with a past medical history as outlined was admitted through the ED on 10/19/2023 with a complaint of pleuritic discomfort and fatigue as well as malaise after dialysis. He did not have any fever or chills. Patient was on 5 L of oxygen saturation at 100%. Chest x-ray showed patchy infiltrate in the right lower lobe suspicious for pneumonia and a possible small left pleural effusion. COVID and influenza test as well as RSV test was negative. He was admitted and managed for debility due to presumptive pneumonia. He was started on IV vancomycin and Zosyn. Sputum cultures were negative and blood cultures were also negative at time of discharge on 10/22/2023. Patient WBC remained normal. He was [facility] on 10/22/2023. He is to follow-up with his primary care doctor within 1 to 2 weeks. Of note nephrology was also consulted and he had dialysis during admission. Patient seen and examined prior to discharge. He had no complaints and had an uneventful night. Review of systems otherwise negative. Labs and vitals reviewed. Home medication reviewed and reconciled. Physical Exam Const alert, oriented x3 and no apparent distress General Appearance: cooperative and comfortable HEENT normocephalic, head/scalp atraumatic, hearing grossly normal bilaterally, moist oral mucous membranes and oropharynx normal Mouth: oral and palatal mucosa normal Eyes PERRL and EOMs intact bilaterally Neck no lymphadenopathy and supple Lymph Lymphatic: no lymphadenopathy noted and no lymphedema noted Resp Resp Narrative: moderately diminished breath sounds bibasally, few crackles. On 2L of oxygen by nasal canula Cardio regular rate, regular rhythm, S1 normal heart sound, S2 normal heart sound and no murmurs GI normal to inspection, nondistended, normoactive bowel sounds, soft to palpation, non-tender and non-distended Extremity full ROM, normal capillary refill, no clubbing, cyanosis or edema and no calf tenderness Extremity Narrative: AV fistula in LUE General Extremity: no tenderness to palpation of joints or extremities Skin General Skin Exam: no breakdown Neuro oriented x3, CN's II-XII intact bilaterally, moves all extremities, no focal motor deficits and no sensory deficits noted Motor Exam: general weakness Psych thought process normal, cooperative and affect normal Appearance: appropriate Weight / BMI Weight Weight: 212 lb 4.882 oz Body Mass Index (BMI) 31.3 ABG / Lab / Microbiology Data 10/22/23 05:16 10/22/23 05:16 Laboratory: Laboratory Results - last 24 hr 10/20/23 06:15: Diff Path Review Reviewed 10/22/23 05:16: WBC 6.6, RBC 3.05 L, Hgb 8.3 L, Hct 28.4 L, MCV 93.1, MCH 27.2, MCHC 29.2 L, RDW Std Deviation 61.9 H, RDW Coeff of Lencho 18.1 H, Plt Count 70 L, MPV 12.8 H, Immature Gran % (Auto) 0.500, Neut % (Auto) 83.5 H, Lymph % (Auto) 5.6 L, [place] % (Auto) 9.4, Eos % (Auto) 0.8, Baso % (Auto) 0.2, Absolute Neuts (auto) 5.5, Absolute Lymphs (auto) 0.37 L, Nucleated RBC % 0.3, Sodium 141, Pota ssium 4.2, Chloride 107, Carbon Dioxide 24.0, Anion Gap 10, BUN 103 H*, Creatinine 7.20 H, Estim Creat Clear Calc 9.84, Est GFR (MDRD) Af Amer 10 L, Est GFR (MDRD) Non-Af 8 L, BUN/Creatinine Ratio 14.3, Glucose 139 H, Calcium 8.8 Microbiology: Microbiology 10/19/23 21:40 Blood Culture (Wb) - Port Blood Culture - Preliminary No growth in 48 hours. 10/19/23 22:00 Blood Culture (Wb) - Port Blood Culture - Preliminary No growth in 48 hours. 10/19/23 23:39 Mucosa - Nasopharyngeal Respiratory Panel (PCR) - Final 10/19/23 17:45 Mucosa - Nose SARS-CoV-2, Influenza & RSV (PCR) - Final D/C Instructions Discharge Diet: Low fat / Low cholesterol Discharge Activity: Return to Normal Activity Weight Bearing Status: Weight bearing as tolerated Call your doctor if you observe: Fever of 101 or Higher, Shortness of breath, Dizziness, Swelling in the ankles and Chest pain Meaningful Use Info Meaningful Use Meaningful Use Diagnoses (Choose all that apply): None applicable Ischemic Stroke Statin Dosing Therapy Reference: STATIN DOSE THERAPY REFERENCE: * Patients > 75 years receive moderate or high dose statin therapy. * Patients 75 years or YOUNGER should receive HIGH intensity statin dose unless contraindicated. You will be required to document reason for non-treatment if statin daily dose does not meet guidelines. HIGH DOSE STATIN THERAPY DAILY Atorvastatin > than or = to 40 mg Rosuvastatin > than or = to 20 mg Amlodipine + Atorvastatin > than or = to 2.5/40 mg Ezetimibe + Simvastatin 10/80 mg Simvastatin 80mg Discharge Plan Admission Admit Date/Time: 10/19/23 21:10 Primary Reason for Your Visit: right lower lobe pneumonia Attending Provider: Sugar Rao Primary Care Provider: Martin Nunez Consulting Providers: Sonia He; Lisa James Instructions Patient Instructions: ED Pneumonia (Adult) Discharge Orders/Prescriptions Prescriptions: Continued budesonide 3 mg capsule,delayed,extend.release 9 mg PO DAILY Bibiana-Leoncio 0.8 mg tablet 1 tab PO DAILY clopidogrel 75 mg Tablet 75 mg PO DAILY Qty: 0 0RF midodrine 5 mg tablet 10 mg PO TUTHSA Rx Instructions: GIVE PRIOR TO DIALYSIS carvedilol 3.125 mg tablet 3.125 mg PO BID polyethylene glycol 3350 [ClearLax] 17 gram/dose powder 17 g PO DAILY PRN (Reason: constipation) amiodarone 200 mg tablet 200 mg PO DAILY sucralfate 1 gram Tablet 1 g PO 4X/DAY Rx Instructions: GIVE 1 TABLET BY MOUTH BEFORE MEAL AND AT BEDTIME pantoprazole 40 mg Tablet,Delayed Release (Dr/Ec) 40 mg PO BID acetaminophen 325 mg Tablet 650 mg PO Q6H PRN PRN (Reason: Pain 1-10 Or Fever>100.7) Qty: 0 0RF albuterol sulfate 2.5 mg /3 mL (0.083 %) Solution For Nebulization 2.5 mg inhalation Q4H PRN (Reason: bronchospasm) Qty: 0 0RF menthol-zinc oxide [Calmoseptine] 0.44-20.6 % Ointment 1 applic topical BID Qty: 0 0RF Protocol: *Topical Application Instructions APPLICATION INSTRUCTIONS: apply to affected areas Ensure Plus High Protein 0.08 gram-1.5 kcal/mL Liquid 120 ml PO TIDCM Qty: 0 0RF Eliquis 2.5 mg tablet 2.5 mg PO BID Dialyvite 800 0.8 mg tablet 1 tab PO DAILY Referrals / Follow Up: Martin Nunez DO [Primary Care Provider] - Within 2 Weeks Disposition Disposition (needs filled in before D/C Order can be placed): [facility] Charges/Coding Visit Charges Inpatient E&M: 90349 Disch Hosp >30min
[2023-10-22 13:15] VITALS: BP 117/63; PULSE 68; RESP 17; TEMP 36.6; O2SAT 99
--- NOTE | 2023-10-22 13:51 | NURSING ---
Port deaccessed. Flushed with 30ml of saline d/t pt allergies.
--- NOTE | 2023-10-22 21:51 | NURSING ---
This RN received a call from the [facility] that the patient med list was not updated correctly, this RN asked for a new copy of what patient is taking and then was placed into the computer at this time.
== END 2023-10-22 13:48 | disposition skilled nursing facility (03) | DRG 193 ==
LOC: ED 21:17 → PCU 21:28
PROVIDERS: Admitting Provider Family Medicine; Emergency Provider Emergency Medicine; PCP Student in an Organized Health Care Education/Training Program; Visit Provider Student in an Organized Health Care Education/Training Program
DX: J18.9 Pneumonia, unspecified organism (principal); N18.6 End stage renal disease; I13.2 Hypertensive heart and chronic kidney disease with heart failure and with stage 5 chronic kidney disease, or end stage renal disease; C85.90 Non-Hodgkin lymphoma, unspecified, unspecified site; I50.30 Unspecified diastolic (congestive) heart failure; D69.6 Thrombocytopenia, unspecified; I48.0 Paroxysmal atrial fibrillation; I73.9 Peripheral vascular disease, unspecified; D64.9 Anemia, unspecified; Z99.2 Dependence on renal dialysis; E78.5 Hyperlipidemia, unspecified; G47.30 Sleep apnea, unspecified; Z79.51 Long term (current) use of inhaled steroids; Z79.899 Other long term (current) drug therapy; Z79.02 Long term (current) use of antithrombotics/antiplatelets; Z86.718 Personal history of other venous thrombosis and embolism; Z86.711 Personal history of pulmonary embolism; Z95.5 Presence of coronary angioplasty implant and graft; Z87.891 Personal history of nicotine dependence; Z91.158 Patient's noncompliance with renal dialysis for other reason
CPT/HCPCS: 36415; 71045; 80048; 80053; 81001; 81002; 83735; 84100; 84484; 85025; 87040; 87631; 87633; 87641; 90937; 93005; 94640; 94668; 97110; 97162; 97165; 97530; 97535; 99285; J7030; J7040; J7050; P9612; A4216; G0257; Q5106

== ENCOUNTER → 2023-10-25 | Outpatient (CLI) | payer MEDICARE, BC, SELFPAY ==
--- NOTE | 2023-10-25 14:47 | AVDS_ITS ---
Reason For Study: Stenosis of AVF RIGHT Inflow, 71.8/22.5 cm/sec. Inflow, 190.2 ml/min. Prox anastomosis, 51.9/22.5 cm/sec. Prox anastomosis, 188.4 cm/sec. Prox graft, 533.9/283.9 cm/sec. Prox graft, 975.7 ml/min. Mid graft, 15.8/6.7 cm/sec. Mid graft, 319.2 ml/min. Distal graft, 9.1/5.6 cm/sec. Distal graft, 294.1 ml/min. Outflow, 20/12.2 cm/sec. Outflow, 326.8 ml/min. VL/AV Fistula/Dialysis Graft Scan Interpretation Summary Patent right arm fistula with stenosis in the proximal segment but beyond the a nastomosis. Diminished flow volumes mid-distal fistula. Ordering Physician: Ed Miramontes Referring Physician: Martin Nunez Performed By: Ro Rogers Marlon
== END | disposition home or self-care (01) ==
LOC: CVS 14:46
PROVIDERS: PCP Student in an Organized Health Care Education/Training Program; Referring Provider Surgery Trauma Surgery; Visit Provider Surgery Trauma Surgery
DX: T82.858A Stenosis of other vascular prosthetic devices, implants and grafts, initial encounter (principal); Y71.8 Miscellaneous cardiovascular devices associated with adverse incidents, not elsewhere classified
CPT/HCPCS: 93990

== ENCOUNTER 2023-10-26 09:40 | Day surgery (SDC) | payer MEDICARE, BC, SELFPAY ==
[2023-10-26 10:48] VITALS: BMI 30.9
--- NOTE | 2023-10-26 13:29 | OP.PCM_ITS ---
Report of Operation Date of Procedure: 10/26/23 Pre-Operative Diagnosis: right arm fistula with stenosis Post-Operative Diagnosis: same Surgery/Procedure Performed:: fistulagram, angioplasty, IVUS Surgeon: Ed Miramontes Type of Anesthesia: Local and Sedation,Conscious Estimated Blood Loss (mL): 5 Description of Procedure: HPI: Patient is 78-year-old male with end-stage renal disease currently using a right upper arm AV fistula for dialysis. He has noted increased clotting in the dialysis circuit and poor draws on the arterial limb. He had a duplex which suggested a significant stenosis in the proximal segment of the fistula beyond the arterial anastomosis. He is taken now for fistulogram with possible intervention. Description of procedure: Upon obtaining form consent and verification correct patient procedure site patient taken to the [facility] he was positioned prepped and draped in usual sterile fashion. Timeouts performed conscious sedation administered Versed and fentanyl. Ultrasound used to evaluate the fistula and location of the area of stenosis marked. We then anesthetized the skin overlying the mid fistula with 1% lidocaine the vessel accessed and ultrasound guidance in retrograde fashion towards the arterial anastomosis. This was then exchanged for micropuncture sheath through which injection proximal fistulogram was performed which confirmed satisfactory position no extravasation dissection. Through the micropuncture sheath advanced a Bentson wire traversing the arterial anastomosis and into the arterial system. The micropuncture sheath was exchanged out for a 6 Bulgarian short sheath through which further imaging was obtained which confirmed the area of stenosis in the proximal portion of the fistula not involving anastomosis. The patient was anticoagulated with Angiomax bolus followed by continuous infusion with serial ACT's checked to adjust anticoagulant dosing. A KMP catheter was then advanced over the wire and the Bentson wire exchanged for a command 18 wire. Next intravascular shunt probe was advanced and recorded pullback performed of the brachial artery in the proximal segment of the anastomosis. This confirmed greater than 75% stenosis of the segment and gave reference vessel sizing. Next of the segment of stenosis was ballooned with a 6 mm x 2 cutting balloon to nominal for multiple inflations over the stenosis. Next a 6 x 40 drug-coated angioplasty balloon [place] [employer] [place] balloon was advanced in position and inflated to nominal for 3 minutes and then deflated withdrawn. Completion fistulogram confirmed satisfactory lesion response with no extravasation dissection no significant recoil. There is improved contrast transit across the fistula. Next completion fistulogram of the venous outflow was performed which revealed a mild stenosis at the costo clavicular angle with 1 small collateral that emanated from the axillary vein and emptied into the jugular vein. The majority of the contrast did transit through the remaining venous outflow tract it was felt that the stenosis was not going to be hemodynamically significant. Nylon suture was then placed in the skin and the sheath withdrawn after which time manage pressure was held to hemostasis noted. Patient was then taken recovery room for bedrest prior to discharge to home.
[2023-10-27 15:40] LABS: ACT Activated Clotting Time 470 sec (74-137)
== END 2023-10-26 15:20 | disposition home or self-care (01) ==
PROVIDERS: PCP Student in an Organized Health Care Education/Training Program; Referring Provider Surgery Trauma Surgery; Visit Provider Surgery Trauma Surgery
DX: T82.858A Stenosis of other vascular prosthetic devices, implants and grafts, initial encounter (principal); I13.2 Hypertensive heart and chronic kidney disease with heart failure and with stage 5 chronic kidney disease, or end stage renal disease; N18.6 End stage renal disease; I50.9 Heart failure, unspecified; I25.10 Atherosclerotic heart disease of native coronary artery without angina pectoris; Z99.2 Dependence on renal dialysis; Z87.891 Personal history of nicotine dependence; D64.9 Anemia, unspecified; Y71.8 Miscellaneous cardiovascular devices associated with adverse incidents, not elsewhere classified
CPT/HCPCS: 36902; 37252; 37253; 76937; 85347; 99152; 99153; C1725; C1769; C1894; C2623; J7030; J7040; Q9967; A4216; J0583

== ENCOUNTER 2023-11-11 13:07 | Inpatient (IN) | payer MEDICARE, BC, SELFPAY ==
[2023-11-11] VITALS (14 sets, daily range): BP systolic 115–137; BP diastolic 54–78; PULSE 64–89; RESP 16–26; TEMP 35.5–36.8; O2SAT 87–100; BMI 30.7; BMI 30.4
--- NOTE | 2023-11-11 13:13 | EKG12_ITS ---
Test Reason : CP/SOB Blood Pressure : / mmHG Vent. Rate : 083 BPM Atrial Rate : 000 BPM P-R Int : 000 ms QRS Dur : 170 ms QT Int : 422 ms P-R-T Axes : 000 -76 014 degrees QTc Int : 495 ms Atrial fibrillation Left axis deviation Right bundle branch block /LAFB Abnormal ECG Confirmed by Benjamin Kim ([id number]), city editor CLIFF MARIE ([id number]) on 11/14/2023 8:04:08 AM Referred By: Confirmed By:Benjamin Kim
--- NOTE | 2023-11-11 13:13 | RAD_ITS ---
STUDY: X-RAY CHEST REASON FOR EXAM: Male, 78 years old. Respiratory distress and bilateral rales TECHNIQUE: Single AP portable view of the chest. COMPARISON: October 19, 2023 FINDINGS: Port on the right extends to the superior vena cava. There are stable mild lower lung increased opacities. There is no demonstrated pleural abnormality. There is mild cardiac enlargement. Normal mediastinum and donaldo. Normal visualized pulmonary arteries. There is atherosclerotic calcification of the aortic arch with tortuosity. Normal visualized thoracic spine. Normal visualized ribs, clavicles, and shoulders. There is no demonstrated abnormality of the visualized soft tissue structures of the upper abdomen. RAD/Chest 1 View (Portable) IMPRESSION: Stable mild lower lung infiltrates or edema. Electronically Signed: Yaya Busby MD at 14:38 EDT ,
--- NOTE | 2023-11-11 13:14 | EDS_ITS ---
HPI History of Present Illness Chief Complaint: Shortness of Breath Detail of Chief Complaint: Dyspnea and chest pressure Informant: patient, EMS and other Onset/Context/Timing Onset: Today Context: sudden Timing: Continuous Quality: Positive for Orthopnea Current Severity: Severe Maximum Severity: Severe Worsened by: Nothing Relieved by: Nothing Associated Symptoms cough; Negative for rhinorrhea, post nasal drip, ear pain, fever, sore throat, subjective, chills, sweats, clear sputum, white sputum, yellow sputum or green sputum Chest Pain: Positive for Continuous and Pressure Narrative Narrative: Patient is a 78-year-old male with history of end-stage renal disease on hemodialysis Tuesday, Tuesday and Tuesday. He was at dialysis. Dialysis was discontinued after 45 minutes. Patient has history of atherosclerotic disease, non-ST elevation MO, AV fistula, congestive heart failure, pulmonary embolus, hyperparathyroidism who was sent from dialysis because of shortness of breath. He is not a good informant. He is not normally on oxygen. Paperwork that accompanied him is of little value. Patient states he is not normally on oxygen. He then made the statement that others would like him to be on oxygen. He denies headache, visual, ocular auditory symptoms. He denies radiation of the pain. He denies nausea or diaphoresis. He is not very active. He states his bruises are due to anticoagulant, which was discontinued. He reportedly has allergies to Lovenox heparin and aspirin. PE Risk Factors: Positive for Prior DVT or PE and Recent immobilization; Negative for Cancer, OCP + Smoking + > 35, Recent surgery or Recent travel Prior similar symptoms: Yes (Fluid overload/CAP) Recent Illness/Hospitalization: No PFSH PFS Medical History Noncompliance of patient with renal dialysis Thrombocytopenia Elevated troponin Anemia GI bleed Anemia requiring transfusions Chronic anticoagulation Anemia Dialysis patient Coronary artery disease History of GI bleed Loss of hearing Wears glasses Wears partial dentures Wears dentures Cancer Arthritis Low iron Former smoker Sleep apnea History of echocardiogram (~06/30/22) History of stress test (~05/03/22) Cardiology follow-up encounter (~04/04/23) Wide-complex tachycardia Duodenal ulcer Atrial fibrillation Hepatic cyst Iron deficiency anemia ESRD (end stage renal disease) on dialysis Aortic root dilatation Hyperparathyroidism CKD (chronic kidney disease) stage 5, GFR less than 15 ml/min HIT (heparin-induced thrombocytopenia) Bladder cancer HLD (hyperlipidemia) CHF (congestive heart failure) History of pulmonary embolism History of DVT (deep vein thrombosis) History of solitary pulmonary nodule Renal calculus Preop cardiovascular exam Essential hypertension Lymphoma VTE (venous thromboembolism) Lower gastrointestinal bleeding Left upper chest discomfort Home Medications ?Medication ?Instructions ?Recorded ?Last Taken ?Type budesonide 3 mg 6 mg PO DAILY stomach 06/16/23 Unknown History capsule,delayed,extended release vitamin B complex-vitamin C-folic 1 tab PO DAILY supplement 06/16/23 Unknown History acid 0.8 mg tablet (Bibiana-Leoncio) clopidogrel 75 mg tablet 75 mg PO DAILY antiplatelet #0 tabs 06/18/23 Unknown Rx midodrine 5 mg tablet 10 mg PO MOWEFR blood 07/28/23 Unknown History pressure-dialysis amiodarone 200 mg tablet 200 mg PO DAILY heart rate 08/31/23 Unknown History carvedilol 3.125 mg tablet 3.125 mg PO BID HIGH BLOOD PRESSURE 08/31/23 Unknown History pantoprazole 40 mg tablet,delayed 40 mg PO BID reflux 08/31/23 Unknown History release sucralfate 1 gram tablet 1 g PO 4X/DAY reflux 08/31/23 Unknown History acetaminophen 325 mg tablet 650 mg (2 x 325 mg) PO Q6H PRN PRN 09/18/23 Unknown Rx Pain 1-10 Or Fever>100.7 #0 tabs albuterol sulfate 2.5 mg/3 mL 2.5 mg (3 mL) inhalation Q4H PRN 09/18/23 Unknown Rx (0.083 %) solution for nebulization bronchospasm #0 mL menthol 0.44 %-zinc oxide 20.6 % 1 applic topical BID skin #0 grams 09/18/23 Unknown Rx topical ointment (Calmoseptine) atorvastatin 20 mg tablet (Lipitor) 20 mg PO QHS cholesterol 10/22/23 Unknown History bisacodyl 10 mg rectal suppository 10 mg UT DAILY PRN constipation 10/22/23 Unknown History magnesium hydroxide 400 mg/5 mL 30 ml PO DAILY PRN constipation 10/22/23 Unknown History oral suspension (Milk of Magnesia) mineral oil (Fleet Mineral Oil 118 ml UT DAILY PRN constipation 10/22/23 Unknown History enema) ondansetron 4 mg disintegrating 4 mg PO Q6H PRN nausea 10/22/23 Unknown History tablet sucroferric oxyhydroxide 500 mg 500 mg PO TID chronic kidney 10/22/23 Unknown History chewable tablet (Velphoro) disease levofloxacin 500 mg tablet 500 mg PO UD #3 tabs 10/23/23 Unknown Rx Allergy/AdvReac Type Severity Reaction Status Date / Time Iodinated Contrast Media Allergy Intermediate KIDNEY Verified 11/11/23 13:08 FAILURE enoxaparin (From Lovenox) Allergy Other Verified 11/11/23 13:08 heparin Allergy Other Verified 11/11/23 13:08 aspirin AdvReac Other Verified 11/11/23 13:08 Family History Father Cancer lung Arrhythmia Brother Cancer Mother Dementia Surgical History History of foot surgery S/P peripheral artery angioplasty with stent placement History of bladder surgery AV fistula History of corrected cleft lip and palate History of tonsillectomy History of cataract extraction H/O total cystectomy Social History household members: none Smoking Status: Former smoker how long ago did patient quit smoking: Started age 7, stopped at 17, started again 22-2 ppd until quit 2008 alcohol intake: never substance use type: does not use caffeine: No ROS ROS ED Constitutional Constitutional ED: Denies chills, fever(s) or sweats Eyes Eyes: Denies blurry vision or change in vision ENT ENT ED: Denies ear pain, rhinorrhea or sore throat Cardiovascular Cardiovascular: Reports chest pain and orthopnea; Denies palpitations or racing heartbeat Respiratory/Chest Respiratory/Chest: Reports cough, dyspnea and orthopnea Gastrointestinal Gastrointestinal: Denies abdominal pain, diarrhea, melena or vomiting Musculoskeletal Musculoskeletal: Denies arthralgias, back pain or myalgias Integumentary Reports other Details: Multiple bruises. Neurologic Neurologic: Reports weakness; Denies headache(s) Hematologic/Lymphatic Hematologic/Lymphatic: Reports easy bleeding and easy bruising; Denies lymphadenopathy EXAM Physical Exam Narrative Exam Narrative: Patient has paradoxical breathing.He is presently on 3 L of oxygen by nasal cannula. Const Vital Signs: 11/11/23 13:07 11/11/23 13:07 11/11/23 13:13 Temperature 95.9 F L Temperature Source Temporal Pulse Rate 86 Respiratory Rate 20 H Respiratory Effort Respiratory Pattern Blood Pressure 128/54 H Blood Pressure Mean 78 Pulse Ox 91 87 93 Oxygen Delivery Method Room Air Room Air Nasal Cannula Oxygen Flow Rate (L/min) 2 11/11/23 13:15 11/11/23 13:17 11/11/23 15:07 Temperature Temperature Source Pulse Rate 89 77 Respiratory Rate 17 20 H Respiratory Effort Non-Labored Respiratory Pattern Normal Blood Pressure 131/69 H 128/78 H Blood Pressure Mean 89 94 Pulse Ox 99 100 Oxygen Delivery Method Nasal Cannula Nasal Cannula Nasal Cannula Oxygen Flow Rate (L/min) 2 2 2 11/11/23 15:09 11/11/23 16:18 Temperature 98.2 F Temperature Source Pulse Rate 87 81 Respiratory Rate 16 Respiratory Effort Respiratory Pattern Blood Pressure 128/78 H 118/66 Blood Pressure Mean 83 Pulse Ox 100 Oxygen Delivery Method Oxygen Flow Rate (L/min) Positive well nourished and well developed Constitutional Narrative: Patient is respiratory distress with paradoxical breathing. General Appearance ED: well developed and pallor; Negative for NAD HEENT Reports dry mucous membranes atraumatic; Negative for tenderness Mouth ED: Yes dry mucous membranes Mouth: dry mucous membranes Eyes PERRL and EOMs intact bilaterally General Eye ED: Yes pale conjunctiva; Negative for scleral icterus Neck no lymphadenopathy, supple, no meningeal signs and no JVD Resp No normal respiratory effort and No clear to auscultation bilaterally Auscultation: rales right mid and lower and left lower and diminished lung sounds bilateral Cardio regular rate, regular rhythm, S1 normal heart sound, S2 normal heart sound and no murmurs GI non-tender, non-distended and no masses Auscultation: normoactive bowel sounds Palpation: soft Back/Spine no CVA tenderness Extremity Negative for normal to inspection Extremity Narrative: Evidence of peripheral vascular disease with discoloration of the feet amputation of multiple toes. Neuro No oriented x3, CN's II-XII intact bilaterally and no sensory deficits noted Psych mental status grossly normal Skin no wounds and No skin turgor normal Skin Narrative: Multiple bruises are noted. Patient states he was on an anticoagulant. General Skin Exam: pallor MDM MDM MDM Narrative Medical decision making narrative: Differential diagnosis would include pneumonia, fluid overload/congestive heart failure. With patient reporting central chest pressure need to rule out cardiac ischemia. He does appear anemic. Will obtain CBC to assess H&H. To assess white count with differential since pneumonia is in the differential. ABG was obtained to assess acid-base status and more importantly to determine if he is retaining CO2. History & Record Review Additional record(s) reviewed:: Prior inpatient record (Patient was admitted end of September for acute pneumonia. He was hypoxic. The infiltrate was noted on the right lower lobe. He also had a recent GI bleed and elevated troponin.), Prior outpatient record (Most recent note by Dr. Ed Miramontes for AV fistula stenosis.), Prior ED visit and Prior labs Lab Data Lab results narrative: Troponin is elevated 398 which is lower than normal. BNP is 1000 2050. Patient's breathing has improved markedly with oxygen. The right lower lobe infiltrate may represent edema. Or could be residual to the pneumonia he was treated for 3 weeks ago. Will contact Dr. He his social worker clinical for dialysis. After speaking with Dr. He will contact hospitalist for admission for dialysis. Labs: Laboratory Results - last 24 hr 11/11/23 14:25 WBC 7.1 RBC 3.53 L Hgb 9.8 L Hct 33.9 L MCV 96.0 H MCH 27.8 MCHC 28.9 L RDW Std Deviation 66.4 H RDW Coeff of Lencho 19.4 H Plt Count 61 L MPV 10.1 Immature Gran % (Auto) 0.400 Neut % (Auto) 82.2 H Lymph % (Auto) 5.6 L [place] % (Auto) 10.2 H Eos % (Auto) 1.3 Baso % (Auto) 0.3 Absolute Neuts (auto) 5.9 Absolute Lymphs (auto) 0.40 L Nucleated RBC % 0 Differential Comment SCANNED Platelet Estimate MKD DEC Anisocytosis 2+ Microcytosis 1+ Macrocytosis 1+ Sodium 139 Potassium 4.3 Chloride 102 Carbon Dioxide 29.0 Anion Gap 8 BUN 108 H* Creatinine 7.50 H* Estim Creat Clear Calc 9.65 Est GFR (MDRD) Af Amer 9 L Est GFR (MDRD) Non-Af 8 L BUN/Creatinine Ratio 14.4 Glucose 114 H Calcium 8.9 Troponin I High Sens 398 H* B-Natriuretic Peptide 1251.8 H ABG Data Attestation: I personally reviewed and interpreted this ABG as follows: Interpretation: Acid-base status is unremarkable. Patient is having increased AA gradient and ABG would represent hypoxia. ABG results: ABG 11/11/23 14:04 Specimen Type ART Sample Site L Brach pH 7.42 Bicarbonate Actual 30.5 H Total CO2 32 Base Excess 6 H O2 Saturation 97 O2 % 2.0 ABG pCO2 47.0 H ABG pO2 95 O2 Delivery Device Cannula Vent Mode Not entered Radiography Chest X-Ray - ED: 1 View and Read by ED Physician (Independent reviewed interpreted by me at 1423. Compared to x-ray obtained May 1 reveals infiltrate right lower lobe. The film is slightly rotated and inspiratory volume is not as great as comparison film.) Diagnostic Testing: Clinical Impression(s) from Imaging Studies Chest X-Ray 11/11/23 13:13 IMPRESSION: Stable mild lower lung infiltrates or edema. Electronically Signed: Yaya Busby MD at 14:38 EDT , EKG Initial EKG: Attestation: I personally reviewed and interpreted this EKG as follows: Interpretation: Atrial Fibrillation (Rate is 83. [place] to left. QRS duration is prolonged at 178 ms with evidence of a right bundle branch block, this is not a new finding. QT duration is 422 ms. There is no acute ischemic changes noted.) Management Discussion w/another healthcare provider: Hospitalist (Hospitalist will be paged for admission for patient be dialyzed.) and Retail Service Representative (Spoke with Dr. Sonia He social worker clinical. She will make arrangements for dialysis which may be later this evening or early tomorrow morning.) Discharge Plan Dx/Rx/DC Orders Clinical Impression: Acute hypoxemic respiratory failure, Anemia, Debility, Peripheral vascular disease, End-stage renal disease on hemodialysis, Fluid overload, Elevated troponin Disposition Disposition: [facility]
[2023-11-11 14:08] LABS: Base Excess 6 mmol/L (-2 to +2); Bicarbonate 30.5 mmol/L (22-26); Blood Gas Specimen Type ART; Mode Not entered; O2 Delivery Device Cannula; PO2 95 mmHG (75-100); SITE L Brach; SO2 97 % (95-99); Total Carbon Dioxide 32 mmol/L; pH 7.42 (7.35-7.45)
[2023-11-11 14:34] LABS: Absolute Neutrophil Count 5.9 X10^3/uL (2.0-7.7); Basophil# 0.02 X10^3/uL; Basophil% 0.3 % (0-1); Eosinophil# 0.09 X10^3/uL; Eosinophils% 1.3 % (0-5); Hematocrit 33.9 % (40-54); Hemoglobin 9.8 g/dL (13.0-16.5); Lymphocyte % 5.6 % (19-41); Mean Corp Hgb Conc 28.9 g/dL (32-36); Mean Corpuscular Hgb 27.8 pg (27.0-32.0); Mean Platelet Vol. 10.1 fl (6.2-12.0); Monocyte# 0.73 X10^3/uL; Monocyte% 10.2 % (0-10); NRBC Flagged by Analyzer 0 % (0-5); Neutrophil # 5.86 X10^3/uL (2.7-7.7); Neutrophil % 82.2 % (47-70); POSITIVE COUNT YES; POSITIVE DIFFERENTIAL YES; POSITIVE MORPHOLOGY YES; Platelet Count 61 K/mm3 (150-450); RBC Distribution Width CV 19.4 % (11.6-14.6); RBC Distribution Width SD 66.4 fl (35.1-43.9); Red Blood Count 3.53 M/mm3 (4.6-6.2); White Blood Count 7.1 K/mm3 (4.4-11.0)
[2023-11-11 14:56] LABS: BNP,B-Type NATRIURETIC PEPTIDE 1251.8 pg/mL (0-100)
--- NOTE | 2023-11-11 14:56 | ED.RN ---
LAB CALLED TROPONIN 398,BUN 108,CREAT 7.50. DR SMART
[2023-11-11 14:57] LABS: Anion Gap 8 (5-15); BUN 108 mg/dL (7-18); BUN/Creat Ratio 14.4 RATIO (10-20); Calcium,Total 8.9 mg/dL (8.5-10.1); Chloride 102 mmol/L (98-107); EST Glomerular Filtration Rate 8 mL/min (>60); Est Glom Filt Rate - Afr Amer 9 mL/min (>60); Estimated Creatinine Clearance 9.65 ml/min; Glucose 114 mg/dL (74-106); Potassium 4.3 mmol/L (3.5-5.1); Sodium Level 139 mmol/L (136-145); Troponin-I HS (w/2H Reflex) 398 pg/mL (3.0-78.0)
[2023-11-11] MEDS: Nitroglycerin Oint 1 INCH PACKET TD (15:09)
[2023-11-11 15:20] LABS: Differential Indicated SCAN CRITERIA MET
--- NOTE | 2023-11-11 16:11 | PCM.HP.STD ---
HPI - General General Date of Admission: 11/11/23 Date of Service: 11/11/23 Chief Complaint: shortness of breath HPI Narrative RIA MARIANO, is a 78 M with a PMH as outlined who presents via the ED on 11/11/2023 with a complaint of shortness of breath. He has ESRD on HD initially on Tuesday, and Tuesday. He was switched to MWF. He was at dialysis today and says the dialysis was stopped after about 10 mins due to shortness of breath, so he was sent in to the ED. He says the shortness of breath started one day ago. He denied any chest pain, palpitations, dizziness, nausea, vomiting or any other symptoms. Review of systems is otherwise negative. Vitals in the ED were BP of 95.9F, BP of 128/78, WI of 87, RR of 20 and pulse ox of 1005 on 2L of oxygen. CBC showed hb of 9.8, wbc of 7.1, platelets of 61. Chemistry showed sodium of 139, potassium of 4.3, bicarb of 29 and Cr of 7.5. BNP was 1251.8. Initial troponin was 398. CXR showed stable mild lower lung infiltrates or edema. He is being admitted to be managed for fluid overload in the setting of ESRD. He doesnt make urine. [facility] Medical History (Updated 11/11/23 @ 17:37 by uSe Guillaume) Depression Diabetes Chronic pain Kidney disease Hypertension DVT (deep venous thrombosis) Noncompliance of patient with renal dialysis Thrombocytopenia Elevated troponin Anemia GI bleed Anemia requiring transfusions Chronic anticoagulation Anemia Dialysis patient Coronary artery disease History of GI bleed Loss of hearing Wears glasses Wears partial dentures Wears dentures Cancer Arthritis Low iron Former smoker Sleep apnea History of echocardiogram (~06/30/22) History of stress test (~05/03/22) Cardiology follow-up encounter (~04/04/23) Wide-complex tachycardia Duodenal ulcer Atrial fibrillation Hepatic cyst Iron deficiency anemia ESRD (end stage renal disease) on dialysis Aortic root dilatation Hyperparathyroidism CKD (chronic kidney disease) stage 5, GFR less than 15 ml/min HIT (heparin-induced thrombocytopenia) Bladder cancer HLD (hyperlipidemia) CHF (congestive heart failure) History of pulmonary embolism History of DVT (deep vein thrombosis) History of solitary pulmonary nodule Renal calculus Preop cardiovascular exam Essential hypertension Lymphoma VTE (venous thromboembolism) Lower gastrointestinal bleeding Left upper chest discomfort Home Medications ?Medication ?Instructions ?Recorded ?Last Taken ?Type budesonide 3 mg 6 mg PO DAILY stomach 06/16/23 Unknown History capsule,delayed,extended release vitamin B complex-vitamin C-folic 1 tab PO DAILY supplement 06/16/23 Unknown History acid 0.8 mg tablet (Bibiana-Leoncio) clopidogrel 75 mg tablet 75 mg PO DAILY antiplatelet #0 tabs 06/18/23 Unknown Rx midodrine 5 mg tablet 10 mg PO MOWEFR blood 07/28/23 Unknown History pressure-dialysis amiodarone 200 mg tablet 200 mg PO DAILY heart rate 08/31/23 Unknown History carvedilol 3.125 mg tablet 3.125 mg PO BID HIGH BLOOD PRESSURE 08/31/23 Unknown History pantoprazole 40 mg tablet,delayed 40 mg PO BID reflux 08/31/23 Unknown History release sucralfate 1 gram tablet 1 g PO 4X/DAY reflux 08/31/23 Unknown History acetaminophen 325 mg tablet 650 mg (2 x 325 mg) PO Q6H PRN PRN 09/18/23 Unknown Rx Pain 1-10 Or Fever>100.7 #0 tabs albuterol sulfate 2.5 mg/3 mL 2.5 mg (3 mL) inhalation Q4H PRN 09/18/23 Unknown Rx (0.083 %) solution for nebulization bronchospasm #0 mL menthol 0.44 %-zinc oxide 20.6 % 1 applic topical BID skin #0 grams 09/18/23 Unknown Rx topical ointment (Calmoseptine) atorvastatin 20 mg tablet (Lipitor) 20 mg PO QHS cholesterol 10/22/23 Unknown History bisacodyl 10 mg rectal suppository 10 mg WI DAILY PRN constipation 10/22/23 Unknown History magnesium hydroxide 400 mg/5 mL 30 ml PO DAILY PRN constipation 10/22/23 Unknown History oral suspension (Milk of Magnesia) mineral oil (Fleet Mineral Oil 118 ml WI DAILY PRN constipation 10/22/23 Unknown History enema) ondansetron 4 mg disintegrating 4 mg PO Q6H PRN nausea 10/22/23 Unknown History tablet sucroferric oxyhydroxide 500 mg 500 mg PO TID chronic kidney 10/22/23 Unknown History chewable tablet (Velphoro) disease Allergy/AdvReac Type Severity Reaction Status Date / Time Iodinated Contrast Media Allergy Intermediate KIDNEY Verified 11/11/23 13:08 FAILURE enoxaparin (From Lovenox) Allergy Other Verified 11/11/23 13:08 heparin Allergy Other Verified 11/11/23 13:08 aspirin AdvReac Other Verified 11/11/23 13:08 Family History Father Cancer lung Arrhythmia Brother Cancer Mother Dementia Surgical History History of foot surgery S/P peripheral artery angioplasty with stent placement History of bladder surgery AV fistula History of corrected cleft lip and palate History of tonsillectomy History of cataract extraction H/O total cystectomy Social History household members: none Smoking Status: Former smoker how long ago did patient quit smoking: Started age 7, stopped at 17, started again 22-2 ppd until quit 2008 alcohol intake: never substance use type: does not use caffeine: No ROS Constitutional Constitutional: Reports fatigue, malaise and weakness; Denies anorexia, chills or fever(s) Eyes Eyes: Denies change in vision ENT HEENT: Denies dysphagia, headache(s), loss taste/smell, sore throat or throat swelling Cardiovascular Cardiovascular: Denies chest pain, edema, orthopnea, palpitations, paroxysmal nocturnal dyspnea or syncope Respiratory/Chest Respiratory/Chest: Reports shortness of breath at rest and shortness of breath with exertion; Denies cough Gastrointestinal Gastrointestinal: Denies abdominal pain, constipation, diarrhea, nausea or vomiting Genitourinary Genitourinary: Denies dysuria Musculoskeletal Musculoskeletal: Denies joint pain or limited range of motion Neurologic Neurologic: Denies confusion, dizziness, focal weakness, headache(s), lack of coordination, numbness or seizures Psychiatric Psychiatric: Denies anxiety or depression Endocrine Endocrinology: Denies change in body appearance Hematologic/Lymphatic Hematologic/Lymphatic: Denies anemia Vital Signs Vital Signs Vital Signs: 11/11/23 13:07 11/11/23 13:07 11/11/23 13:13 Temperature 95.9 F L Temperature Source Temporal Pulse Rate 86 Respiratory Rate 20 H Respiratory Effort Respiratory Pattern Blood Pressure 128/54 H Blood Pressure Mean 78 Pulse Ox 91 87 93 Oxygen Delivery Method Room Air Room Air Nasal Cannula Oxygen Flow Rate (L/min) 2 11/11/23 13:15 11/11/23 13:17 11/11/23 15:07 Temperature Temperature Source Pulse Rate 89 77 Respiratory Rate 17 20 H Respiratory Effort Non-Labored Respiratory Pattern Normal Blood Pressure 131/69 H 128/78 H Blood Pressure Mean 89 94 Pulse Ox 99 100 Oxygen Delivery Method Nasal Cannula Nasal Cannula Nasal Cannula Oxygen Flow Rate (L/min) 2 2 2 11/11/23 15:09 Temperature Temperature Source Pulse Rate 87 Respiratory Rate Respiratory Effort Respiratory Pattern Blood Pressure 128/78 H Blood Pressure Mean Pulse Ox Oxygen Delivery Method Oxygen Flow Rate (L/min) Weight Weight: 214 lb 8.156 oz Body Mass Index (BMI) 30.7 Physical Exam Const alert, oriented x3, no apparent distress and well nourished General Appearance: cooperative and well developed HEENT normocephalic, head/scalp atraumatic, moist oral mucous membranes and oropharynx normal Eyes PERRL and EOMs intact bilaterally Neck no lymphadenopathy and supple Lymph Lymphatic: no lymphadenopathy noted and no lymphedema noted Resp Resp Narrative: dimimished breath sounds bibasally, no wheezes; few bilateral crackles. On room air. Cardio regular rate, regular rhythm, S1 normal heart sound, S2 normal heart sound and no murmurs GI normal to inspection, nondistended, normoactive bowel sounds, soft to palpation, non-tender and non-distended Extremity normal capillary refill, no clubbing, cyanosis or edema and no calf tenderness General Extremity: no tenderness to palpation of joints or extremities Skin Skin Narrative: has a port in his chest. Has AV fistula in LUE with good thrill. has bandages on both LEs. General Skin Exam: turgor normal Neuro CN's II-XII intact bilaterally, no focal motor deficits, no sensory deficits noted and deep tendon reflexes 2+ bilaterally Motor Exam: strength 5/5 throughout and general weakness Psych thought process normal, cooperative and affect normal Appearance: appropriate Results Lab / Micro Data 11/11/23 14:25 11/11/23 14:25 Labs: Laboratory Results - last 24 hr 11/11/23 14:25: WBC 7.1, RBC 3.53 L, Hgb 9.8 L, Hct 33.9 L, MCV 96.0 H, MCH 27.8, MCHC 28.9 L, RDW Std Deviation 66.4 H, RDW Coeff of Lencho 19.4 H, Plt Count 61 L, MPV 10.1, Immature Gran % (Auto) 0.400, Neut % (Auto) 82.2 H, Lymph % (Auto) 5.6 L, [place] % (Auto) 10.2 H, Eos % (Auto) 1.3, Baso % (Auto) 0.3, Absolute Neuts (auto) 5.9, Absolute Lymphs (auto) 0.40 L, Nucleated RBC % 0, Sodium 139, Potassium 4.3, Chloride 102, Carbon Dioxide 29.0, Anion Gap 8, BUN 108 H*, Creatinine 7.50 H*, Estim Creat Clear Calc 9.65, Est GFR (MDRD) Af Amer 9 L, Est GFR (MDRD) Non-Af 8 L, BUN/Creatinine Ratio 14.4, Glucose 114 H, Calcium 8.9, Troponin I High Sens 398 H*, B-Natriuretic Peptide 1251.8 H ABG Data ABG results: ABG 11/11/23 14:04 Specimen Type ART Sample Site L Brach pH 7.42 Bicarbonate Actual 30.5 H Total CO2 32 Base Excess 6 H O2 Saturation 97 O2 % 2.0 ABG pCO2 47.0 H ABG pO2 95 O2 Delivery Device Cannula Vent Mode Not entered Imaging Radiology Impression Chest X-Ray 11/11/23 13:13 IMPRESSION: Stable mild lower lung infiltrates or edema. Electronically Signed: Yaya Busby MD at 14:38 EDT , Assessment & Plan Assessment/Plan (1) End-stage renal disease on hemodialysis: (2) Fluid overload: PLAN: Plan #Shortness of breath due to fluid overload in the setting of ESRD admit to PCU was in dialysis and had only a 45 min session of dialysis, but it was stopped due to shortness of breath CXR showed stable mild lower lung infiltrates or edema Patient claims compliance with dialysis through his horse trekking guide Dr. He states patient has not been compliant with his dialysis sessions. nephrology consulted; patient awaiting dialysis. PEr Dr He, to have dialysis tomorrow on velphoro #HFpEF: not diuresed as he does not make any urine. Has known EF of 60%. On Coreg. BNP elevate, likely due to decreased clearance frm ESRD. Shortness of breath should improve with dialysis. #Thrombocytopneia:platelets are 61. This is chronic. Will monitor. #AFib: on amiodarone and Coreg. not on anticoagulants due to thrombocytopenia #Hyperlipidemia: On statin #History of lymphoma and bladder cancer: S/p bladder resection on chemotherapy for his lymphoma. Follow-up with outpatient basis with urology and oncology. #CAD: on aspirin, plavix and carvedilol # DVT prophylaxis; SCDs. No anticoagulation due to thrombocytopenia Code status: full code Patient counseled extensively about different types of CODE STATUS including full code, DNR CCA and DNR CCA. Patient elects to be full code. Total [id number] time 17 minutes. Charges/Coding Visit Charges Inpatient E&M: 80727 Init Hosp L2 Procedures Hospitalists Procedures: 22617 Advncd Care Plan 30 Min
[2023-11-11 16:28] LABS: Reflex Troponin-HS? (from REC) Y
[2023-11-11 16:30] LABS: Anisocytosis 2+; Differential Comment SCANNED; Macrocytosis 1+; Microcytosis 1+; Platelet Estimate MKD DEC (ADEQ)
[2023-11-11 17:07] LABS: Troponin-I HS 351 pg/mL (3.0-78.0)
--- NOTE | 2023-11-11 17:13 | ED.RN ---
1713: spoke daughter in law Rody about patient admission to [facility]
[2023-11-11] MEDS: Ipratropium/Albuterol Sulfate 3 ML AMPUL.NEB INHALATION (20:40)
[2023-11-11] MEDS: Sucralfate 1 GM Tablet PO (21:08)
[2023-11-11] MEDS: Pantoprazole Sodium 40 MG Tablet PO (21:08)
[2023-11-11] MEDS: Atorvastatin Calcium 20 MG Tablet PO (21:08)
[2023-11-11] MEDS: Carvedilol 3.125 MG TABLET PO (21:08)
[2023-11-11] MEDS: Menthol/Lanolin/Calamine/Znox 113 GM Tube 1 APPLIC TOPICAL (21:08)
[2023-11-11] MEDS: 0.9% Saline Lock 10 ML Syringe IV (21:15)
[2023-11-11] MEDS: Acetaminophen 325 MG Tablet 650 MG PO (21:18)
[2023-11-12] VITALS (18 sets, daily range): BP systolic 98–227; BP diastolic 47–80; PULSE 60–100; RESP 15–20; TEMP 35.9–36.6; O2SAT 84–99; BMI 31.8; BMI 31.7
[2023-11-12] MEDS: Ipratropium/Albuterol Sulfate 3 ML AMPUL.NEB INHALATION ×4 (01:32→20:04)
[2023-11-12] MEDS: Acetaminophen 325 MG Tablet 650 MG PO (04:13)
[2023-11-12] MEDS: Sucralfate 1 GM Tablet PO ×4 (06:00→21:13)
[2023-11-12 07:14] LABS: Absolute Lymphocyte Count 0.49 X10^3/uL (0.83-4.51); Basophil# 0.02 X10^3/uL; Basophil% 0.4 % (0-1); Hematocrit 33.5 % (40-54); Hemoglobin 9.6 g/dL (13.0-16.5); Lymphocyte # 0.49 X10^3/ul (0.83-4.51); Lymphocyte % 9.6 % (19-41); Mean Corp Hgb Conc 28.7 g/dL (32-36); Mean Corpuscular Hgb 27.6 pg (27.0-32.0); Mean Corpuscular Volume 96.3 fL (80-94); Mean Platelet Vol. 10.9 fl (6.2-12.0); Monocyte# 0.52 X10^3/uL; Monocyte% 10.2 % (0-10); NRBC Flagged by Analyzer 0 % (0-5); Neutrophil # 3.96 X10^3/uL (2.7-7.7); Neutrophil % 77.2 % (47-70); POSITIVE COUNT YES; POSITIVE DIFFERENTIAL YES; POSITIVE MORPHOLOGY YES; Platelet Count 69 K/mm3 (150-450); RBC Distribution Width CV 19.6 % (11.6-14.6); RBC Distribution Width SD 68.5 fl (35.1-43.9); Red Blood Count 3.48 M/mm3 (4.6-6.2); White Blood Count 5.1 K/mm3 (4.4-11.0)
[2023-11-12 07:22] LABS: Differential Indicated SCAN CRITERIA MET
[2023-11-12 07:44] LABS: Anion Gap 10 (5-15); BUN 116 mg/dL (7-18); BUN/Creat Ratio 13.7 RATIO (10-20); Calcium,Total 9.3 mg/dL (8.5-10.1); Chloride 102 mmol/L (98-107); Creatinine, Serum 8.49 mg/dL (0.70-1.30); EST Glomerular Filtration Rate 7 mL/min (>60); Est Glom Filt Rate - Afr Amer 8 mL/min (>60); Estimated Creatinine Clearance 8.23 ml/min; Glucose 100 mg/dL (74-106); Potassium 4.9 mmol/L (3.5-5.1); Sodium Level 138 mmol/L (136-145)
--- NOTE | 2023-11-12 08:12 | PN.HOSP_ITS ---
Reason for Visit Reason for Visit: Diagnoses Fluid overload, unspecified (11/11/23) End stage renal disease (11/11/23) Dependence on renal dialysis (11/11/23) Subjective Subjective Patient states his breathing is better. Currently on dialysis. Does not tolerate the [facility] dialysis machines and wishes to relocate to [facility] as he tolerates their machines in our machines much better for complete fluid removal. He feels that this would eliminate his need to come to the hospital for incomplete dialysis and fluid accumulation. Currently will need to wait for [facility] to accept him which likely will be until Tuesday. Objective Data Objective Data Vital Signs: Vital Signs Temp Pulse Resp BP Pulse Ox O2 Del Method O2 Flow Rate 97.7 F L 100 20 H 98/64 94 Nasal Cannula 2 11/12/23 03:30 11/12/23 07:19 11/12/23 07:19 11/12/23 03:30 11/12/23 07:19 11/12/23 07:19 11/12/23 07:19 Oxygen Flow Rate (L/min) 2 Oxygen Delivery Method Nasal Cannula Weight: 93.5 kg Body Mass Index (BMI) 30.4 Lab / Micro Data 11/12/23 06:10 11/12/23 06:10 Labs: Laboratory Results - last 24 hr 11/11/23 14:25: WBC 7.1, RBC 3.53 L, Hgb 9.8 L, Hct 33.9 L, MCV 96.0 H, MCH 27.8, MCHC 28.9 L, RDW Std Deviation 66.4 H, RDW Coeff of Lencho 19.4 H, Plt Count 61 L, MPV 10.1, Immature Gran % (Auto) 0.400, Neut % (Auto) 82.2 H, Lymph % (Auto) 5.6 L, Cloud % (Auto) 10.2 H, Eos % (Auto) 1.3, Baso % (Auto) 0.3, Absolute Neuts (auto) 5.9, Absolute Lymphs (auto) 0.40 L, Nucleated RBC % 0, Differential Comment SCANNED, Platelet Estimate MKD DEC, Anisocytosis 2+, Microcytosis 1+, Macrocytosis 1+, Sodium 139, Potassium 4.3, Chloride 102, Carbon Dioxide 29.0, Anion Gap 8, BUN 108 H*, Creatinine 7.50 H*, Estim Creat Clear Calc 9.65, Est GFR (MDRD) Af Amer 9 L, Est GFR (MDRD) Non-Af 8 L, BUN/Creatinine Ratio 14.4, Glucose 114 H, Calcium 8.9, Troponin I High Sens 398 H*, B-Natriuretic Peptide 1251.8 H 11/11/23 16:36: Troponin I High Sens 351 H* 11/12/23 06:10: WBC 5.1, RBC 3.48 L, Hgb 9.6 L, Hct 33.5 L, MCV 96.3 H, MCH 27.6, MCHC 28.7 L, RDW Std Deviation 68.5 H, RDW Coeff of Lencho 19.6 H, Plt Count 69 L, MPV 10.9, Immature Gran % (Auto) 0.600, Neut % (Auto) 77.2 H, Lymph % (Auto) 9.6 L, Cloud % (Auto) 10.2 H, Eos % (Auto) 2.0, Baso % (Auto) 0.4, Absolute Neuts (auto) 4.0, Absolute Lymphs (auto) 0.49 L, Nucleated RBC % 0, Sodium 138, Potassium 4.9, Chloride 102, Carbon Dioxide 26.0, Anion Gap 10, BUN 116 H*, Creatinine 8.49 H*, Estim Creat Clear Calc 8.23, Est GFR (MDRD) Af Amer 8 L, Est GFR (MDRD) Non-Af 7 L, BUN/Creatinine Ratio 13.7, Glucose 100, Calcium 9.3 ABG Data ABG results: ABG 11/11/23 14:04 Specimen Type ART Sample Site L Brach pH 7.42 Bicarbonate Actual 30.5 H Total CO2 32 Base Excess 6 H O2 Saturation 97 O2 % 2.0 ABG pCO2 47.0 H ABG pO2 95 O2 Delivery Device Cannula Vent Mode Not entered Radiography Diagnostic Testing: Radiology Impression Chest X-Ray 11/11/23 13:13 IMPRESSION: Stable mild lower lung infiltrates or edema. Electronically Signed: Yaya Busby MD at 14:38 EDT , Physical Exam Const alert, oriented x3, no apparent distress and well nourished; Negative for average body habitus or healthy appearing Constitutional Narrative: Obese, elderly, white male, lying in bed currently on dialysis, dialysis nurse at bedside, patient appears comfortable, nontoxic, eating breakfast and watching television, appears chronically ill HEENT head/scalp atraumatic and moist oral mucous membranes Head and Scalp: normocephalic Resp normal respiratory effort, no retractions, no use of accessory muscles and No clear to auscultation bilaterally Resp Narrative: Crackles at bases bilaterally but no signs of respiratory distress Auscultation: crackles; Negative for rhonchi or wheezes Cardio regular rate, regular rhythm, S1 normal heart sound, S2 normal heart sound, no murmurs, no rub, no gallops and no clicks GI normal to inspection, nondistended, normoactive bowel sounds, soft to palpation and non-tender Extremity no clubbing, cyanosis or edema Extremity Narrative: Pedal pulses are 2+, radial pulses are 2+ Neuro oriented x3, moves all extremities and no focal motor deficits Neuro Narrative: Significant generalized weakness noted but no focal deficits Speech: speech normal Psych affect normal Psych Narrative: Very pleasant as always, eye contact is good, patient interacts appropriately Assessment & Plan Assessment/Plan (1) Fluid overload: PLAN: Plan Shortness of breath/hypoxia secondary to volume overload/HFpEF -Incomplete outpatient dialysis due to intolerance of dialysis machines at [facility] -Dialysis here for removal of 3 and half to 4 L -Patient is now on room air -Plan is to transition his care to [facility] where he tolerates dialysis better due to different machine use -Their machines are the same as ours and he tolerates dialysis here well Acute on chronic HFpEF -Unable to diuresis patient does not make urine -Acute component related to ineffective dialysis -Plan as above End-stage renal disease-HD dependent -Right upper extremity fistula has a positive thrill and bruit and working well -Continue home medications for his chronic renal disease -Patient typically is dialyzed on dialysis has been changed to Tuesday -Continue midodrine with dialysis -Consultation to nephrology for dialysis--> Dr. Sonia He was notified Chronic thrombocytopenia -This fluctuates -Needs outpatient follow-up with hematology after discharge -Will make referral to Dr. Patterson GERD/history of peptic ulcer disease/gastric varices -Continue Protonix 40 mg p.o. twice daily -Continue home Carafate Chronic anemia secondary to chronic renal disease -Hemoglobin is stable -Continue to monitor Paroxysmal A. fib with RVR with history of wide-complex tachycardia -Continue home carvedilol -Continue amiodarone -Patient is off apixaban due to recurrent GI bleeding and thrombocytopenia CAD/HTN/HPL -Continue home atorvastatin -Continue home carvedilol -Continue home Plavix History of DVT -Hold Eliquis -Patient does have IVC filter in place and needs outpatient follow-up for this -Would recommend follow-up with Dr. Miramontes in the future Chronic aortic dissection -Stable on current CT -Outpatient follow-up JENNIFER -Patient is not compliant with CPAP -Monitor for nocturnal hypoxia and use supplemental oxygen as needed History of lymphoma/bladder cancer -Status post bladder resection -History of chemotherapy for lymphoma -Continue outpatient follow-up with urology and oncology DVT prophylaxis -SCDs -Platelet count consistently greater than 75,000 will start subcu heparin CODE STATUS - full code is verified on admission Disposition: -Patient is medically ready for discharge however transitioning care to [facility] and given the holiday weekend there admissions people are out until Tuesday. Anticipate discharge on Tuesday as long as patient remains medically stable and [facility] is able to except. Charges/Coding Visit Charges Inpatient E&M: 93001 Subs Hosp L2
[2023-11-12] MEDS: 0.9% Normal Saline 1,000 ML IV.SOLN. 1000 ML OPERA.SITE (08:24)
[2023-11-12] MEDS: PureFlow B 2K Dialysis Soln 1 BAG 6 BAG PF (08:25)
--- NOTE | 2023-11-12 08:51 | CASEMGMT ---
Social Work SW met with pt and introduced self and role of SW. Pt is admitted from the [facility]. Pt states that he would like to transfer to [facility] where there is in house dialysis. Pt denies need for SNF list. Referral sent to [facility] via [employer]. Message sent to [place] via [employer] inquiring about payor source, number of Medicare days used and requested PASRR be faxed to PCU. Pt to remain in hospital until change of facilities can be worked out. SW to continue to follow for change of facilities. Plan: [facility], pending acceptance KACI Rios
[2023-11-12 09:10] LABS: Differential Comment SCANNED; Platelet Estimate MKD DEC (ADEQ)
[2023-11-12 09:11] LABS: Anisocytosis 2+; Macrocytosis 1+; Microcytosis 1+
[2023-11-12] MEDS: Pantoprazole Sodium 40 MG Tablet PO ×2 (11:52→21:13)
[2023-11-12] MEDS: Carvedilol 3.125 MG TABLET PO ×2 (11:52→17:48)
[2023-11-12] MEDS: Clopidogrel Bisulfate 75 MG Tablet PO (11:52)
[2023-11-12] MEDS: Amiodarone 200 MG Tablet PO (11:52)
[2023-11-12] MEDS: Folic Acid/Vitamin B Comp W-C 1 Capsule 1 CAP PO (11:53)
[2023-11-12] MEDS: Budesonide 3 MG CAPSULE.EC 6 MG PO (11:53)
--- NOTE | 2023-11-12 12:12 | CASEMGMT ---
RN CM Readmission Note Previous Admission: 10/18-10/22/2023 Diagnosis: PNA, elevated troponin DC Disposition: [facility] Pt. was treated for PNA, sputum and blood cultures were negative. WBC remained normal. Current Admission: Admitted 11/11/23 Current Diagnosis: SOB He was at dialysis and says the dialysis was stopped after about 10 mins due to shortness of breath, so he was sent in to the ED. He says the shortness of breath started one day ago. Pt reports that he has an issues with the dialysis machine that is used at his HD center, but does not have an issue with the machines at the hospital. DC PLAN: Pt wants to DC to a new facility, [facility] which has in house HD. SW working on placement. Yenni Escobar MSN, RN, CCM
[2023-11-12] MEDS: SEVELAMER CARBONATE 800 MG TABLET 1600 MG PO ×2 (12:46→17:47)
[2023-11-12] MEDS: Atorvastatin Calcium 20 MG Tablet PO (21:13)
[2023-11-12] MEDS: Ondansetron ODT 4 MG Tablet PO (21:13)
[2023-11-12] MEDS: Menthol/Lanolin/Calamine/Znox 113 GM Tube 1 APPLIC TOPICAL (21:13)
[2023-11-12] MEDS: 0.9% Saline Lock 10 ML Syringe IV (21:14)
[2023-11-13] VITALS (9 sets, daily range): BP systolic 116–136; BP diastolic 66–77; PULSE 74–93; RESP 18–20; TEMP 36.3–36.9; O2SAT 92–98
[2023-11-13] MEDS: Ipratropium/Albuterol Sulfate 3 ML AMPUL.NEB INHALATION ×4 (01:55→19:32)
[2023-11-13] MEDS: Acetaminophen 325 MG Tablet 650 MG PO ×2 (03:43→23:18)
[2023-11-13] MEDS: Sucralfate 1 GM Tablet PO ×4 (05:54→21:13)
[2023-11-13 06:53] LABS: Hematocrit 33.8 % (40-54); Hemoglobin 9.7 g/dL (13.0-16.5); Mean Corp Hgb Conc 28.7 g/dL (32-36); Mean Corpuscular Hgb 28.3 pg (27.0-32.0); Mean Corpuscular Volume 98.5 fL (80-94); Mean Platelet Vol. 11.9 fl (6.2-12.0); POSITIVE COUNT YES; POSITIVE MORPHOLOGY YES; Platelet Count 71 K/mm3 (150-450); RBC Distribution Width CV 19.6 % (11.6-14.6); RBC Distribution Width SD 70.8 fl (35.1-43.9); Red Blood Count 3.43 M/mm3 (4.6-6.2); White Blood Count 5.6 K/mm3 (4.4-11.0)
[2023-11-13 06:56] LABS: Scan Indicated on CBC? Y/N YES- FLAGS NOTED
[2023-11-13 07:08] LABS: Anion Gap 12 (5-15); BUN 84 mg/dL (7-18); BUN/Creat Ratio 12.5 RATIO (10-20); Chloride 102 mmol/L (98-107); Creatinine, Serum 6.71 mg/dL (0.70-1.30); EST Glomerular Filtration Rate 9 mL/min (>60); Est Glom Filt Rate - Afr Amer 10 mL/min (>60); Glucose 104 mg/dL (74-106); Potassium 5.1 mmol/L (3.5-5.1); Sodium Level 139 mmol/L (136-145)
[2023-11-13] MEDS: Carvedilol 3.125 MG TABLET PO ×2 (08:35→17:54)
[2023-11-13] MEDS: Amiodarone 200 MG Tablet PO (08:35)
[2023-11-13] MEDS: SEVELAMER CARBONATE 800 MG TABLET 1600 MG PO ×3 (08:35→17:54)
[2023-11-13] MEDS: Budesonide 3 MG CAPSULE.EC 6 MG PO (08:35)
[2023-11-13] MEDS: Menthol/Lanolin/Calamine/Znox 113 GM Tube 1 APPLIC TOPICAL ×2 (08:35→21:15)
[2023-11-13] MEDS: Pantoprazole Sodium 40 MG Tablet PO ×2 (08:36→21:13)
[2023-11-13] MEDS: Clopidogrel Bisulfate 75 MG Tablet PO (08:36)
[2023-11-13] MEDS: Folic Acid/Vitamin B Comp W-C 1 Capsule 1 CAP PO (08:36)
--- NOTE | 2023-11-13 12:55 | PN.HOSP_ITS ---
Reason for Visit Reason for Visit: Shortness of breath Subjective Subjective Patient states his subjective shortness of breath is much better however he still hypoxic on room air 84% with 99% on 2 L. He had a dark bowel movement yesterday but it was discarded before it could be sent for Hemoccult. Hemoglobin is stable. He does have a history of GI bleeding but traditionally his hemoglobin drop quite quickly. We will continue to cycle his hemoglobin and monitor closely. Objective Data Objective Data Vital Signs: Vital Signs Temp Pulse Resp BP Pulse Ox O2 Del Method O2 Flow Rate 98.4 F 80 18 136/75 H 95 Nasal Cannula 2 11/13/23 08:11/13/23 08:25 11/13/23 08:11/13/23 08:11/13/23 08:11/13/23 08:11/13/23 11:23 Oxygen Flow Rate (L/min) 2 Oxygen Delivery Method Nasal Cannula Weight: 97.114 kg Body Mass Index (BMI) 31.7 Intake & Output: Intake and Output for Last 24 Hours 11/11/23 11/12/23 11/13/23 23:59 23:59 23:59 Intake Total 390 / 390 100 / 100 Output Total 2800 / 2800 Balance -2410 / -2410 100 / 100 Lab / Micro Data 11/13/23 05:10 11/13/23 05:10 Labs: Laboratory Results - last 24 hr 11/13/23 05:10: WBC 5.6, RBC 3.43 L, Hgb 9.7 L, Hct 33.8 L, MCV 98.5 H, MCH 28.3, MCHC 28.7 L, RDW Std Deviation 70.8 H, RDW Coeff of Lencho 19.6 H, Plt Count 71 L, MPV 11.9, Sodium 139, Potassium 5.1, Chloride 102, Carbon Dioxide 25.0, Anion Gap 12, BUN 84 H, Creatinine 6.71 H, Estim Creat Clear Calc 10.60, Est GFR (MDRD) Af Amer 10 L, Est GFR (MDRD) Non-Af 9 L, BUN/Creatinine Ratio 12.5, Glucose 104, Calcium 9.0 Physical Exam Const alert, oriented x3, no apparent distress and well nourished; Negative for average body habitus or healthy appearing Constitutional Narrative: Obese, elderly, white male, sitting up in bed watching television and eating breakfast, patient appears comfortable, nontoxic, eating breakfast and appears chronically ill General Appearance: cooperative and well developed HEENT normocephalic, head/scalp atraumatic, moist oral mucous membranes and oropharynx normal HEENT Narrative: Mallampati 2-3, no thrush Resp normal respiratory effort, no retractions, no use of accessory muscles and No clear to auscultation bilaterally Resp Narrative: Crackles at bases bilaterally but no signs of respiratory distress, Auscultation: crackles; Negative for rhonchi or wheezes Cardio regular rate, regular rhythm, S1 normal heart sound, S2 normal heart sound, no murmurs, no rub, no gallops and no clicks GI normal to inspection, nondistended, normoactive bowel sounds, soft to palpation and non-tender Extremity Extremity Narrative: Trace bilateral lower extremity edema, skin is pale, no cyanosis or clubbing, right upper extremity distal fistula with positive bruit and thrill Neuro oriented x3, moves all extremities and no focal motor deficits Neuro Narrative: Significant generalized weakness noted but no focal deficits Speech: speech normal Psych affect normal Psych Narrative: Very pleasant, eye contact is good, patient interacts appropriately Appearance: appropriate Assessment & Plan Assessment/Plan (1) Fluid overload: PLAN: Plan Shortness of breath/hypoxia secondary to volume overload/HFpEF -Incomplete outpatient dialysis due to intolerance of dialysis machines at [facility] -Dialysis yesterday and will plan for dialysis again tomorrow -Patient has been fluctuating between room air and 2 L nasal cannula will try to continue to wean -Plan is to transition his care to [facility] where he tolerates dialysis better due to different machine use -Their machines are the same as ours and he tolerates dialysis here well -Patient suggestively states he feels much better Dark tarry stool -Flush before we can check for Hemoccult -Patient does have history of GI bleed -Hemoglobin is stable and improved from previous Acute on chronic HFpEF -Unable to diuresis patient does not make urine -Acute component related to ineffective dialysis -Plan as above End-stage renal disease-HD dependent -Right upper extremity fistula has a positive thrill and bruit and working well -Continue home medications for his chronic renal disease -Patient typically is dialyzed on dialysis has been changed to Tuesday -Continue midodrine with dialysis -Consultation to nephrology for dialysis--> Dr. Sonia He was notified Chronic thrombocytopenia -stable -Needs outpatient follow-up with hematology after discharge -Will make referral to Dr. Patterson GERD/history of peptic ulcer disease/gastric varices -Continue Protonix 40 mg p.o. twice daily -Continue home Carafate Chronic anemia secondary to chronic renal disease -Hemoglobin is stable -Continue to monitor Paroxysmal A. fib with RVR with history of wide-complex tachycardia -Continue home carvedilol -Continue amiodarone -Patient is off apixaban due to recurrent GI bleeding and thrombocytopenia CAD/HTN/HPL -Continue home atorvastatin -Continue home carvedilol -Continue home Plavix History of DVT -Hold Eliquis -Patient does have IVC filter in place and needs outpatient follow-up for this -Would recommend follow-up with Dr. Miramontes in the future Chronic aortic dissection -Stable on current CT -Outpatient follow-up JENNIFER -Patient is not compliant with CPAP -Monitor for nocturnal hypoxia and use supplemental oxygen as needed History of lymphoma/bladder cancer -Status post bladder resection -History of chemotherapy for lymphoma -Continue outpatient follow-up with urology and oncology DVT prophylaxis -SCDs -Platelet count consistently greater than 75,000 will start subcu heparin CODE STATUS - full code is verified on admission Disposition: -Patient is medically ready for discharge however transitioning care to [facility] and given the holiday weekend there admissions people are out until Tuesday. Anticipate discharge on Tuesday as long as patient remains medically stable and [facility] is able to except. Charges/Coding Visit Charges Inpatient E&M: 84588 Subs Hosp L2
--- NOTE | 2023-11-13 13:35 | CPS ---
patient found on 2 lpm at time of visit.
--- NOTE | 2023-11-13 18:48 | PCM.CONS.R ---
Assessment & Plan Assessment/Plan (1) End-stage renal disease on hemodialysis: (2) Fluid overload: (3) Anemia: PLAN: Plan Impression/Plan: The patient is a 78-year-old male with past history of ESRD, type 2 diabetes mellitus, JENNIFER, chronic hypotension, and anemia. The patient presented to hospital on 11/11/2023 because of dyspnea. Patient was found to have pulmonary edema on chest x-ray. Acute hypoxic respiratory failure was attributed to shorten hemodialysis treatment. Nephrology is following for ESRD and dialysis management. ESRD. The patient is dialysis dependent. He typically dialyzes at [facility] on MWF schedule. Recently, the patient has been having issues tolerating dialysis. The patient complains of shortness of breath and anxiety shortly after starting dialysis. Unclear whether this is an issue with dialyzer at [facility]. Nevertheless, he has been tolerating dialysis using NxStage. Plan is for dialysis again tomorrow and will keep on MWF schedule while he is here in the hospital. Patient is in process of transitioning care to [facility] for dialysis since he also used NxStage there. Acute hypoxic respiratory failure secondary to volume overload. Patient is symptomatically improved. Patient was ultrafiltered for 2.8 L with hemodialysis on 11/12/2023. He denies dyspnea at rest. Oxygen saturation is 96% on 2 L nasal cannula. Plan on removing more fluid tomorrow with hemodialysis. Anemia. Hemoglobin is low but stable at 9.7 g/dL today. Continue LUCHO at dialysis unit as outpatient. HPI Consult Data Date of Consult: 11/13/23 HPI Narrative Reason for Consultation: ESRD. HPI Narrative: The patient is a 78-year-old man with past history of ESRD, type 2 diabetes mellitus, JENNIFER, chronic hypotension, and anemia. The patient presented to hospital on 11/11/2023 because of dyspnea. The patient became short of breath during dialysis after 10 minutes. The patient was found to have pulmonary edema on chest x-ray on presentation to the hospital. He was admitted to hospital on 11/11/2023 because of acute hypoxic respiratory failure attributed to shorten hemodialysis treatment. The patient underwent dialysis on 11/12/2023 using NxStage machine without any issues. Patient denies current chest pain, shortness of breath, nausea, or vomiting. Edema has improved. [facility] Medical History (Updated 11/11/23 @ 17:37 by Sue Guillaume) Depression Diabetes Chronic pain Kidney disease Hypertension DVT (deep venous thrombosis) Noncompliance of patient with renal dialysis Thrombocytopenia Elevated troponin Anemia GI bleed Anemia requiring transfusions Chronic anticoagulation Anemia Dialysis patient Coronary artery disease History of GI bleed Loss of hearing Wears glasses Wears partial dentures Wears dentures Cancer Arthritis Low iron Former smoker Sleep apnea History of echocardiogram (~06/30/22) History of stress test (~05/03/22) Cardiology follow-up encounter (~04/04/23) Wide-complex tachycardia Duodenal ulcer Atrial fibrillation Hepatic cyst Iron deficiency anemia ESRD (end stage renal disease) on dialysis Aortic root dilatation Hyperparathyroidism CKD (chronic kidney disease) stage 5, GFR less than 15 ml/min HIT (heparin-induced thrombocytopenia) Bladder cancer HLD (hyperlipidemia) CHF (congestive heart failure) History of pulmonary embolism History of DVT (deep vein thrombosis) History of solitary pulmonary nodule Renal calculus Preop cardiovascular exam Essential hypertension Lymphoma VTE (venous thromboembolism) Lower gastrointestinal bleeding Left upper chest discomfort Home Medications ?Medication ?Instructions ?Recorded ?Last Taken ?Type budesonide 3 mg 6 mg PO DAILY stomach 06/16/23 Unknown History capsule,delayed,extended release vitamin B complex-vitamin C-folic 1 tab PO DAILY supplement 06/16/23 Unknown History acid 0.8 mg tablet (Bibiana-Leoncio) clopidogrel 75 mg tablet 75 mg PO DAILY antiplatelet #0 tabs 06/18/23 Unknown Rx midodrine 5 mg tablet 10 mg PO MOWEFR blood 07/28/23 Unknown History pressure-dialysis amiodarone 200 mg tablet 200 mg PO DAILY heart rate 08/31/23 Unknown History carvedilol 3.125 mg tablet 3.125 mg PO BID HIGH BLOOD PRESSURE 08/31/23 Unknown History pantoprazole 40 mg tablet,delayed 40 mg PO BID reflux 08/31/23 Unknown History release sucralfate 1 gram tablet 1 g PO 4X/DAY reflux 08/31/23 Unknown History acetaminophen 325 mg tablet 650 mg (2 x 325 mg) PO Q6H PRN PRN 09/18/23 Unknown Rx Pain 1-10 Or Fever>100.7 #0 tabs albuterol sulfate 2.5 mg/3 mL 2.5 mg (3 mL) inhalation Q4H PRN 09/18/23 Unknown Rx (0.083 %) solution for nebulization bronchospasm #0 mL menthol 0.44 %-zinc oxide 20.6 % 1 applic topical BID skin #0 grams 09/18/23 Unknown Rx topical ointment (Calmoseptine) atorvastatin 20 mg tablet (Lipitor) 20 mg PO QHS cholesterol 10/22/23 Unknown History bisacodyl 10 mg rectal suppository 10 mg SC DAILY PRN constipation 10/22/23 Unknown History magnesium hydroxide 400 mg/5 mL 30 ml PO DAILY PRN constipation 10/22/23 Unknown History oral suspension (Milk of Magnesia) mineral oil (Fleet Mineral Oil 118 ml SC DAILY PRN constipation 10/22/23 Unknown History enema) ondansetron 4 mg disintegrating 4 mg PO Q6H PRN nausea 10/22/23 Unknown History tablet sucroferric oxyhydroxide 500 mg 500 mg PO TID chronic kidney 10/22/23 Unknown History chewable tablet (Velphoro) disease Allergy/AdvReac Type Severity Reaction Status Date / Time Iodinated Contrast Media Allergy Intermediate KIDNEY Verified 11/11/23 13:08 FAILURE enoxaparin (From Lovenox) Allergy Other Verified 11/11/23 13:08 heparin Allergy Other Verified 11/11/23 13:08 aspirin AdvReac Other Verified 11/11/23 13:08 Family History Father Cancer lung Arrhythmia Brother Cancer Mother Dementia Surgical History History of foot surgery S/P peripheral artery angioplasty with stent placement History of bladder surgery AV fistula History of corrected cleft lip and palate History of tonsillectomy History of cataract extraction H/O total cystectomy Social History household members: none Smoking Status: Former smoker how long ago did patient quit smoking: Started age 7, stopped at 17, started again 22-2 ppd until quit 2008 alcohol intake: never substance use type: does not use caffeine: No ROS ROS Narrative As per HPI. Otherwise noncontributory. Physical Exam Narrative General: Alert and oriented x3, NAD. HEENT: Normocephalic, atraumatic. Mucous membrane moist without erythema. PERRLA, EOMI. Hearing is intact. Neck: Supple, no JVD. Trachea is midline. No thyromegaly or lymphadenopathy. Cardiovascular: Normal S1, S2. No rubs, murmurs, or gallops. Respiratory: Lungs are clear to auscultation anteriorly. No wheezing, rhonchi, or rales. Abdomen: Normal bowel sounds, soft, nontender, no guarding or rebound, no organomegaly. Extremities: No clubbing, cyanosis, or edema. Musculoskeletal: Full passive range of motion, no joint swelling. Psychiatric: Normal mood and affect. Skin: Warm and dry, no rash. There is diffuse ecchymosis over his upper extremities. Neurologic: Cranial nerve II to XII are grossly intact. No focal neurologic deficits. Lab / Micro Data 11/13/23 05:10 11/13/23 05:10 Labs: Laboratory Results - last 24 hr 11/13/23 05:10: WBC 5.6, RBC 3.43 L, Hgb 9.7 L, Hct 33.8 L, MCV 98.5 H, MCH 28.3, MCHC 28.7 L, RDW Std Deviation 70.8 H, RDW Coeff of Lenhco 19.6 H, Plt Count 71 L, MPV 11.9, Sodium 139, Potassium 5.1, Chloride 102, Carbon Dioxide 25.0, Anion Gap 12, BUN 84 H, Creatinine 6.71 H, Estim Creat Clear Calc 10.60, Est GFR (MDRD) Af Amer 10 L, Est GFR (MDRD) Non-Af 9 L, BUN/Creatinine Ratio 12.5, Glucose 104, Calcium 9.0
[2023-11-13] MEDS: Atorvastatin Calcium 20 MG Tablet PO (21:13)
[2023-11-14] VITALS (18 sets, daily range): BP systolic 96–287; BP diastolic 52–109; PULSE 70–98; RESP 16–24; TEMP 35.9–36.6; O2SAT 93–100; BMI 31.6; BMI 31.0
[2023-11-14 06:21] LABS: Absolute Lymphocyte Count 0.44 X10^3/uL (0.83-4.51); Basophil# 0.02 X10^3/uL; Basophil% 0.3 % (0-1); Eosinophil# 0.09 X10^3/uL; Eosinophils% 1.5 % (0-5); Hematocrit 34.4 % (40-54); Hemoglobin 9.9 g/dL (13.0-16.5); Lymphocyte # 0.44 X10^3/ul (0.83-4.51); Lymphocyte % 7.2 % (19-41); Mean Corp Hgb Conc 28.8 g/dL (32-36); Mean Corpuscular Volume 97.2 fL (80-94); Mean Platelet Vol. 10.1 fl (6.2-12.0); Monocyte# 0.57 X10^3/uL; Monocyte% 9.3 % (0-10); NRBC Flagged by Analyzer 0 % (0-5); Neutrophil % 81.4 % (47-70); POSITIVE COUNT YES; POSITIVE DIFFERENTIAL YES; POSITIVE MORPHOLOGY YES; Platelet Count 73 K/mm3 (150-450); RBC Distribution Width CV 19.1 % (11.6-14.6); Red Blood Count 3.54 M/mm3 (4.6-6.2); White Blood Count 6.1 K/mm3 (4.4-11.0)
[2023-11-14 06:24] LABS: Differential Indicated SCAN CRITERIA MET
[2023-11-14 06:43] LABS: Anion Gap 12 (5-15); BUN 95 mg/dL (7-18); BUN/Creat Ratio 11.2 RATIO (10-20); Chloride 103 mmol/L (98-107); EST Glomerular Filtration Rate 7 mL/min (>60); Est Glom Filt Rate - Afr Amer 8 mL/min (>60); Estimated Creatinine Clearance 8.37 ml/min; Glucose 144 mg/dL (74-106); Potassium 5.2 mmol/L (3.5-5.1); Sodium Level 139 mmol/L (136-145)
[2023-11-14] MEDS: Ipratropium/Albuterol Sulfate 3 ML AMPUL.NEB INHALATION ×2 (06:58→19:43)
[2023-11-14] MEDS: Sucralfate 1 GM Tablet PO ×4 (07:30→20:55)
[2023-11-14 07:54] LABS: Anisocytosis 1+; Platelet Estimate SLT DEC (ADEQ)
[2023-11-14] MEDS: 0.9% Normal Saline 1,000 ML IV.SOLN. 1000 ML OPERA.SITE (09:14)
[2023-11-14] MEDS: PureFlow B 2K Dialysis Soln 1 BAG 6 BAG PF (09:14)
[2023-11-14] MEDS: SEVELAMER CARBONATE 800 MG TABLET 1600 MG PO ×2 (09:15→12:45)
[2023-11-14] MEDS: 0.9% Saline Lock 10 ML Syringe IV ×2 (10:51→15:20)
[2023-11-14] MEDS: Carvedilol 3.125 MG TABLET PO ×2 (11:26→17:31)
[2023-11-14] MEDS: Amiodarone 200 MG Tablet PO (11:26)
[2023-11-14] MEDS: Budesonide 3 MG CAPSULE.EC 6 MG PO (11:27)
[2023-11-14] MEDS: Menthol/Lanolin/Calamine/Znox 113 GM Tube 1 APPLIC TOPICAL ×2 (11:27→20:56)
[2023-11-14] MEDS: Folic Acid/Vitamin B Comp W-C 1 Capsule 1 CAP PO (11:29)
[2023-11-14] MEDS: Pantoprazole Sodium 40 MG Tablet PO ×2 (11:29→20:55)
[2023-11-14] MEDS: Clopidogrel Bisulfate 75 MG Tablet PO (11:29)
[2023-11-14] MEDS: Acetaminophen 325 MG Tablet 650 MG PO (11:51)
--- NOTE | 2023-11-14 12:11 | PN.HOSP_ITS ---
Reason for Visit Reason for Visit: Shortness of breath Subjective Subjective Patient currently on dialysis. Plan is for removal of 3 L today. No complaints. No further dark stools and hemoglobin is stable. Patient is asking if he will be able to go to [facility] tomorrow. I did tell him it depends on whether or not they accept him and will discuss further with social work tomorrow. Objective Data Objective Data Vital Signs: Vital Signs Temp Pulse Resp BP Pulse Ox O2 Del Method O2 Flow Rate 96.7 F L 96 16 122/65 H 100 Nasal Cannula 3 11/14/23 11:20 11/14/23 11:20 11/14/23 11:20 11/14/23 11:20 11/14/23 11:20 11/14/23 11:20 11/14/23 11:20 Oxygen Flow Rate (L/min) 3 Oxygen Delivery Method Nasal Cannula Weight: 95.11 kg Body Mass Index (BMI) 31.0 Intake & Output: Intake and Output for Last 24 Hours 11/12/23 11/13/23 11/14/23 23:59 23:59 23:59 Intake Total 390 / 390 100 / 350 250 / 250 Output Total 2800 / 2800 3150 / 3150 Balance -2410 / -2410 100 / 350 -2900 / -2900 Lab / Micro Data 11/14/23 05:55 11/14/23 05:55 Labs: Laboratory Results - last 24 hr 11/14/23 05:55: WBC 6.1, RBC 3.54 L, Hgb 9.9 L, Hct 34.4 L, MCV 97.2 H, MCH 28.0, MCHC 28.8 L, RDW Std Deviation 68.0 H, RDW Coeff of Lencho 19.1 H, Plt Count 73 L, MPV 10.1, Immature Gran % (Auto) 0.300, Neut % (Auto) 81.4 H, Lymph % (Auto) 7.2 L, [place] % (Auto) 9.3, Eos % (Auto) 1.5, Baso % (Auto) 0.3, Absolute Neuts (auto) 5.0, Absolute Lymphs (auto) 0.44 L, Nucleated RBC % 0, Platelet Estimate SLT DEC, Anisocytosis 1+, Sodium 139, Potassium 5.2 H, Chloride 103, Carbon Dioxide 24.0, Anion Gap 12, BUN 95 H, Creatinine 8.50 H*, Estim Creat Clear Calc 8.37, Est GFR (MDRD) Af Amer 8 L, Est GFR (MDRD) Non-Af 7 L, BUN/Creatinine Ratio 11.2, Glucose 144 H, Calcium 9.0 Physical Exam Const alert, oriented x3, no apparent distress and well nourished; Negative for average body habitus or healthy appearing Constitutional Narrative: Obese, elderly, white male, lying in bed eating breakfast and watching television, currently on dialysis, dialysis nurse at bedside, patient appears comfortable, nontoxic,appears chronically ill General Appearance: cooperative HEENT normocephalic, head/scalp atraumatic and moist oral mucous membranes Resp normal respiratory effort, no retractions, no use of accessory muscles and clear to auscultation bilaterally Resp Narrative: diminished but clear Auscultation: Negative for crackles, rhonchi or wheezes Cardio regular rate, regular rhythm, S1 normal heart sound, S2 normal heart sound, no murmurs, no rub, no gallops and no clicks GI normal to inspection, nondistended, normoactive bowel sounds, soft to palpation and non-tender Extremity no clubbing, cyanosis or edema Extremity Narrative: Trace bilateral lower extremity edema, skin is pale, no cyanosis or clubbing, right upper extremity distal fistula with positive bruit and thrill Neuro oriented x3, moves all extremities and no focal motor deficits Speech: speech normal Psych affect normal Psych Narrative: Very pleasant, eye contact is good, patient interacts appropriately Assessment & Plan Assessment/Plan (1) Fluid overload: PLAN: Plan Shortness of breath/hypoxia secondary to volume overload/HFpEF -Incomplete outpatient dialysis due to intolerance of dialysis machines at [facility] -Currently on dialysis and plan is for removal of 3 L today -on 3 L NC but sats are 100% -Plan is to transition his care to [facility] where he tolerates dialysis better due to different machine use -Their machines are the same as ours and he tolerates dialysis here well -hopeful for d/c tomorrow to [facility] -Patient suggestively states he feels much better Dark tarry stool -no further episodes and hgb is stable Acute on chronic HFpEF -Unable to diuresis patient does not make urine -Acute component related to ineffective dialysis -cont fluid removal with HD End-stage renal disease-HD dependent -Right upper extremity fistula has a positive thrill and bruit and working well -Continue home medications for his chronic renal disease -Patient typically is dialyzed on dialysis has been changed to Tuesday -Continue midodrine with dialysis -Nephro is following--> appreciate input Chronic thrombocytopenia -stable -Needs outpatient follow-up with hematology after discharge -Will make referral to Dr. Patterson GERD/history of peptic ulcer disease/gastric varices -Continue Protonix 40 mg p.o. twice daily -Continue home Carafate Chronic anemia secondary to chronic renal disease -Hemoglobin is stable--> 9.9 preHD -Continue to monitor Paroxysmal A. fib with RVR with history of wide-complex tachycardia -Continue home carvedilol -Continue amiodarone -remains in NSR -Patient is off apixaban due to recurrent GI bleeding and thrombocytopenia CAD/HTN/HPL -Continue home atorvastatin -Continue home carvedilol -Continue home Plavix History of DVT -Hold Eliquis -Patient does have IVC filter in place and needs outpatient follow-up for this -Would recommend follow-up with Dr. Miramontes in the future Chronic aortic dissection -Stable on current CT -Outpatient follow-up JENNIFER -Patient is not compliant with CPAP -Monitor for nocturnal hypoxia and use supplemental oxygen as needed History of lymphoma/bladder cancer -Status post bladder resection -History of chemotherapy for lymphoma -Continue outpatient follow-up with urology and oncology DVT prophylaxis -SCDs -Platelet count consistently greater than 75,000 will start subcu heparin CODE STATUS - full code is verified on admission Disposition: -Patient is medically ready for discharge however transitioning care to [facility] and given the holiday weekend there admissions people are out until Tuesday. Anticipate discharge on Tuesday as long as patient remains medically stable and [facility] is able to except. Charges/Coding Visit Charges Inpatient E&M: 66374 Subs Hosp L2
[2023-11-14] MEDS: Ondansetron 4 MG/2 ML Vial IV (15:18)
[2023-11-14] MEDS: Atorvastatin Calcium 20 MG Tablet PO (20:55)
[2023-11-15 01:38] VITALS: PULSE 106; RESP 20; O2SAT 90
[2023-11-15] MEDS: Ipratropium/Albuterol Sulfate 3 ML AMPUL.NEB INHALATION ×2 (01:38→07:08)
[2023-11-15 03:12] VITALS: BP 119/72; PULSE 78; RESP 20; TEMP 36.3; O2SAT 92
[2023-11-15] MEDS: Sucralfate 1 GM Tablet PO ×2 (06:51→11:06)
[2023-11-15 07:08] VITALS: PULSE 100; RESP 18; O2SAT 91
[2023-11-15 07:41] LABS: Hematocrit 35.1 % (40-54); Hemoglobin 10.3 g/dL (13.0-16.5); Mean Corp Hgb Conc 29.3 g/dL (32-36); Mean Corpuscular Hgb 28.1 pg (27.0-32.0); Mean Corpuscular Volume 95.9 fL (80-94); Mean Platelet Vol. 9.8 fl (6.2-12.0); POSITIVE COUNT YES; POSITIVE MORPHOLOGY YES; Platelet Count 79 K/mm3 (150-450); RBC Distribution Width CV 18.6 % (11.6-14.6); RBC Distribution Width SD 65.8 fl (35.1-43.9); Red Blood Count 3.66 M/mm3 (4.6-6.2); White Blood Count 6.2 K/mm3 (4.4-11.0)
[2023-11-15 07:44] LABS: Scan Indicated on CBC? Y/N YES- FLAGS NOTED
[2023-11-15 08:05] LABS: Anion Gap 9 (5-15); BUN 78 mg/dL (7-18); BUN/Creat Ratio 10.6 RATIO (10-20); Calcium,Total 8.9 mg/dL (8.5-10.1); Chloride 105 mmol/L (98-107); Creatinine, Serum 7.34 mg/dL (0.70-1.30); EST Glomerular Filtration Rate 8 mL/min (>60); Est Glom Filt Rate - Afr Amer 9 mL/min (>60); Estimated Creatinine Clearance 9.59 ml/min; Glucose 110 mg/dL (74-106); Potassium 4.8 mmol/L (3.5-5.1); Sodium Level 138 mmol/L (136-145)
[2023-11-15 08:15] VITALS: BP 133/79; PULSE 110; RESP 14; TEMP 36.6; O2SAT 97
[2023-11-15] MEDS: SEVELAMER CARBONATE 800 MG TABLET 1600 MG PO ×2 (08:18→11:07)
[2023-11-15] MEDS: Magnesium Hydroxide 30 ML UDC PO (08:18)
[2023-11-15] MEDS: Pantoprazole Sodium 40 MG Tablet PO (08:18)
[2023-11-15] MEDS: Folic Acid/Vitamin B Comp W-C 1 Capsule 1 CAP PO (08:19)
[2023-11-15] MEDS: Clopidogrel Bisulfate 75 MG Tablet PO (08:19)
[2023-11-15] MEDS: Amiodarone 200 MG Tablet PO (08:19)
[2023-11-15] MEDS: Budesonide 3 MG CAPSULE.EC 6 MG PO (08:19)
[2023-11-15] MEDS: Carvedilol 3.125 MG TABLET PO (08:26)
[2023-11-15] MEDS: Acetaminophen 325 MG Tablet 650 MG PO (08:31)
[2023-11-15 09:14] VITALS: O2SAT 97
--- NOTE | 2023-11-15 09:35 | CASEMGMT ---
Discharge Planning Updates sent to [facility]. Referral still pending. Na Gordon DC Planning Asst.
[2023-11-15] MEDS: Menthol/Lanolin/Calamine/Znox 113 GM Tube 1 APPLIC TOPICAL (10:00)
[2023-11-15 10:51] LABS: Differential Comment SCANNED
--- NOTE | 2023-11-15 11:04 | CASEMGMT ---
[facility] accepted patient. SW will notify patient and physician. Plan: d/c to [facility] under skilled level of care. Abbie FRANCIS
--- NOTE | 2023-11-15 11:09 | PCM.PN.REN ---
Subjective Subjective Following for ESRD. The patient was dialyzed yesterday. He tolerated dialysis well without shortness of breath, headache, or nausea. He denies shortness of breath at rest, chest pain, or nausea today. Objective Data Objective Data Vital Signs: Vital Signs Temp Pulse Resp BP Pulse Ox O2 Del Method O2 Flow Rate 97.9 F 110 H 14 133/79 H 97 Room Air 2 11/15/23 08:15 11/15/23 08:15 11/15/23 08:15 11/15/23 08:15 11/15/23 09:14 11/15/23 09:44 11/15/23 09:14 Oxygen Flow Rate (L/min) 2 Oxygen Delivery Method Room Air Weight: 95.11 kg Body Mass Index (BMI) 31.0 Intake & Output: Intake and Output for Last 24 Hours 11/13/23 11/14/23 11/15/23 23:59 23:59 23:59 Intake Total 100 / 350 250 / 250 0 / 0 Output Total 3150 / 3150 0 / 0 Balance 100 / 350 -2900 / -2900 0 / 0 Lab / Micro Data 11/15/23 06:50 11/15/23 06:50 Labs: Laboratory Results - last 24 hr 11/15/23 06:50: WBC 6.2, RBC 3.66 L, Hgb 10.3 L, Hct 35.1 L, MCV 95.9 H, MCH 28.1, MCHC 29.3 L, RDW Std Deviation 65.8 H, RDW Coeff of Lencho 18.6 H, Plt Count 79 L, MPV 9.8, Differential Comment SCANNED, Sodium 138, Potassium 4.8, Chloride 105, Carbon Dioxide 24.0, Anion Gap 9, BUN 78 H, Creatinine 7.34 H, Estim Creat Clear Calc 9.59, Est GFR (MDRD) Af Amer 9 L, Est GFR (MDRD) Non-Af 8 L, BUN/Creatinine Ratio 10.6, Glucose 110 H, Calcium 8.9 Physical Exam Narrative General: Alert and oriented x3, NAD. HEENT: Normocephalic, atraumatic. Mucous membrane moist without erythema. PERRLA, EOMI. Hearing is intact. Cardiovascular: Normal S1, S2. No rubs, murmurs, or gallops. Respiratory: Lungs are clear to auscultation anteriorly. No wheezing, rhonchi, or rales. Abdomen: Normal bowel sounds, soft, nontender, no guarding or rebound, no organomegaly. Extremities: No clubbing, cyanosis, or edema. Assessment & Plan Assessment/Plan (1) End-stage renal disease on hemodialysis: (2) Fluid overload: (3) Anemia: PLAN: Plan Impression/Plan: The patient is a 78-year-old male with past history of ESRD, type 2 diabetes mellitus, JENNIFER, chronic hypotension, and anemia. The patient presented to hospital on 11/11/2023 because of dyspnea. Patient was found to have pulmonary edema on chest x-ray. Acute hypoxic respiratory failure was attributed to shorten hemodialysis treatment. Nephrology is following for ESRD and dialysis management. ESRD. The patient is dialysis dependent. He typically dialyzes at [facility] on MWF schedule. Recently, the patient has been having issues tolerating dialysis. The patient complains of shortness of breath and anxiety shortly after starting dialysis. Unclear whether this is an issue with dialyzer at [facility]. Nevertheless, he has been tolerating dialysis using NxStage. He did well again yesterday on 11/14/2023 on NxStage machine. Patient is in process of transitioning care to [facility] for dialysis since he will also be using NxStage there. Acute hypoxic respiratory failure secondary to volume overload. Patient is symptomatically improved. Patient was ultrafiltered for 2.8 L with hemodialysis on 11/12/2023. He denies dyspnea at rest. Oxygen saturation is 96% on room air today. Continue keep negative fluid balance on dialysis. Anemia. Hemoglobin is stable at 10.3 g/dL today. Continue LUCHO at dialysis unit as outpatient.
--- NOTE | 2023-11-15 11:40 | CASEMGMT ---
[facility] accepted patient. SW notified patient. Patient also asked to notify his son. SW called patient's son Paul and let him know [facility] accepted patient and patient will go today. Paul did say he would like a call when patient is set to leave. Plan: d/c to [facility] under skilled level of care. Physicians will transport patient via cot. Abbie FRANCIS
--- NOTE | 2023-11-15 11:46 | CASEMGMT ---
Discharge Planning [facility] updated that patient is ready for discharge today. Requested from [facility] [employer] be faxed and asked for number of MCR days used. Awaiting response. Na Gordon DC Planning Asst.
--- NOTE | 2023-11-15 12:10 | PCM.DC.SUM ---
Providers Date of Admission: 11/11/23 Primary Care Physician: Dr. Martin Nunez, Consultations 11/11/23 17:51 Consult: Nephrology Routine Consulting Provider: Christopher Cook Reason for Consult: fluid overload, ESRD EMERGENT Consult: No MD Notified: Yes Date Notified: 11/11/23 Time Notified: 17:23 Method of Notification: Text 11/11/23 18:19 Consult: Onc/Wound/pharmaceutical process engineer Routine Comment: Reason for Consult:: Wounds, feet Reason For Visit: FLUID OVERLOAD, RESPIRATORY DISTRESS Diagnosis Discharge Diagnosis (1) End-stage renal disease on hemodialysis: Status: Acute Code(s): N18.6 - End stage renal disease; Z99.2 - Dependence on renal dialysis (2) Fluid overload: Status: Acute Code(s): E87.70 - Fluid overload, unspecified (3) Anemia: Status: Acute Code(s): D64.9 - Anemia, unspecified Plan Shortness of breath/hypoxia secondary to volume overload/HFpEF -Incomplete outpatient dialysis due to intolerance of dialysis machines at [facility] -Currently on dialysis and plan is for removal of 3 L today -on 3 L NC but sats are 100% -Plan is to transition his care to [facility] where he tolerates dialysis better due to different machine use -Their machines are the same as ours and he tolerates dialysis here well -hopeful for d/c tomorrow to [facility] -Patient suggestively states he feels much better Dark tarry stool -no further episodes and hgb is stable Acute on chronic HFpEF -Unable to diuresis patient does not make urine -Acute component related to ineffective dialysis -cont fluid removal with HD End-stage renal disease-HD dependent -Right upper extremity fistula has a positive thrill and bruit and working well -Continue home medications for his chronic renal disease -Patient typically is dialyzed on dialysis has been changed to Tuesday -Continue midodrine with dialysis -Nephro is following--> appreciate input Chronic thrombocytopenia -stable -Needs outpatient follow-up with hematology after discharge -Will make referral to Dr. Patterson GERD/history of peptic ulcer disease/gastric varices -Continue Protonix 40 mg p.o. twice daily -Continue home Carafate Chronic anemia secondary to chronic renal disease -Hemoglobin is stable--> 9.9 preHD -Continue to monitor Paroxysmal A. fib with RVR with history of wide-complex tachycardia -Continue home carvedilol -Continue amiodarone -remains in NSR -Patient is off apixaban due to recurrent GI bleeding and thrombocytopenia CAD/HTN/HPL -Continue home atorvastatin -Continue home carvedilol -Continue home Plavix History of DVT -Hold Eliquis -Patient does have IVC filter in place and needs outpatient follow-up for this -Would recommend follow-up with Dr. Miramontes in the future Chronic aortic dissection -Stable on current CT -Outpatient follow-up JENNIFER -Patient is not compliant with CPAP -Monitor for nocturnal hypoxia and use supplemental oxygen as needed History of lymphoma/bladder cancer -Status post bladder resection -History of chemotherapy for lymphoma -Continue outpatient follow-up with urology and oncology DVT prophylaxis -SCDs -Platelet count consistently greater than 75,000 will start subcu heparin CODE STATUS - full code is verified on admission Disposition: -Patient is medically ready for discharge however transitioning care to [facility] and given the holiday weekend there admissions people are out until Tuesday. Anticipate discharge on Tuesday as long as patient remains medically stable and [facility] is able to except. Medications at Discharge Home Medications budesonide 3 mg capsule,delayed,extended release 6 mg PO DAILY stomach 06/16/23 vitamin B complex-vitamin C-folic acid 0.8 mg tablet (Bibiana-Leoncio) 1 tab PO DAILY supplement 06/16/23 clopidogrel 75 mg tablet 75 mg PO DAILY antiplatelet #0 tabs 06/18/23 midodrine 5 mg tablet 10 mg PO MOWEFR blood pressure-dialysis 07/28/23 amiodarone 200 mg tablet 200 mg PO DAILY heart rate 08/31/23 carvedilol 3.125 mg tablet 3.125 mg PO BID HIGH BLOOD PRESSURE 08/31/23 pantoprazole 40 mg tablet,delayed release 40 mg PO BID reflux 08/31/23 sucralfate 1 gram tablet 1 g PO 4X/DAY reflux 08/31/23 acetaminophen 325 mg tablet 650 mg (2 x 325 mg) PO Q6H PRN PRN Pain 1-10 Or Fever>100.7 #0 tabs 09/18/23 albuterol sulfate 2.5 mg/3 mL (0.083 %) solution for nebulization 2.5 mg (3 mL) inhalation Q4H PRN bronchospasm #0 mL 09/18/23 menthol 0.44 %-zinc oxide 20.6 % topical ointment (Calmoseptine) 1 applic topical BID skin #0 grams 09/18/23 atorvastatin 20 mg tablet (Lipitor) 20 mg PO QHS cholesterol 10/22/23 bisacodyl 10 mg rectal suppository [address] DAILY PRN constipation 10/22/23 magnesium hydroxide 400 mg/5 mL oral suspension (Milk of Magnesia) 30 ml PO DAILY PRN constipation 10/22/23 mineral oil (Fleet Mineral Oil enema) [address] DAILY PRN constipation 10/22/23 ondansetron 4 mg disintegrating tablet 4 mg PO Q6H PRN nausea 10/22/23 sucroferric oxyhydroxide 500 mg chewable tablet (Velphoro) 500 mg PO TID chronic kidney disease 10/22/23 Hospital Course Procedures Dialysis, EKG and - (Chest x-ray) Summary of Care Provided Minutes Spent on Discharge: 38 Hospital Course: Mr. Rizvi is a 78-year-old white male who is dialysis dependent and makes no urine who presented to emergency department at [facility] on 11/11/2023 with a chief complaint of shortness of breath. He is on hemodialysis and previously had been on Tuesday, , and Tuesday dialysis but he was recently switched to Tuesday, Tuesday, Tuesday dialysis. He was receiving dialysis at [facility] and reported that the dialysis stopped about 10 minutes after he complained of shortness of breath. Evidently, he frequently has dialysis stopped early while he is at for sending us as his machines are not as tolerable for him as the machines here in the hospital so he is not getting adequate dialysis for fluid removal. Vital signs on presentation here were temperature of 95.9, BP of 128/78, heart rate 87, respiratory was 20 and oxygen saturations were 100% on 2 L nasal cannula. CBC showed no white count elevation and a chronic stable anemia. His baseline hemoglobin appears to run between 9 and 10. Platelet counts are low and have been chronically but relatively stable throughout his hospitalization. An ABG was obtained and was unremarkable. Chemistry panel showed markedly elevated BUN and creatinine to be expected with insufficient dialysis but was otherwise unremarkable. A chest x-ray was performed and was consistent with volume overload. He was admitted to the hospital here and placed on dialysis. He was dialyzed 2 times while hospitalized and the patient wanted to transfer his skilled care to [facility] as there dialysis machines are similar to ours and he tolerates our machines better for full fluid removal. He feels he will get more sufficient dialysis there and we will avoid recurrent admissions. It was reported that he had a dark bowel movement while he was hospitalized and he does have a history of GI bleeds however his hemoglobins were followed closely and he was stable throughout his higher hospital course and had no further dark bowel movements. Hemoglobin at the time of discharge was 10.3 and appears his most recent hemoglobin has been running between 9 and 10. He is thrombocytopenic which is chronic however slightly worse but stabilized he was hospitalized and I am going to have him follow-up as an outpatient with Dr. Patterson after discharge. Platelets at discharge were 79,000 with a ne of 69,000 while hospitalized. He was accepted for ongoing care at [facility] on 11/15/2023 and was discharged there in stable condition. He was followed by nephrology while hospitalized. No medication changes were made. Discharge diagnoses: Shortness of breath Hypoxia secondary to volume overload/acute on chronic HFpEF Chronic troponin elevation Acute on chronic HFpEF End-stage renal disease-HD dependent Chronic thrombocytopenia GERD History of peptic ulcer disease Gastric varices Chronic anemia secondary to chronic renal disease and previous blood loss Paroxysmal atrial fibrillation History of wide-complex tachycardia CAD HTN HPL History of DVT Chronic aortic dissection JENNIFER History of lymphoma History of bladder cancer Physical Exam Const alert, oriented x3, no apparent distress and well nourished; Negative for average body habitus or healthy appearing Constitutional Narrative: Obese, elderly, white male, lying in bed eating breakfast and watching television, currently on dialysis, dialysis nurse at bedside, patient appears comfortable, nontoxic,appears chronically ill General Appearance: cooperative, comfortable, well kempt and well developed Orientation / Consciousness: awake, oriented to person, oriented to place and oriented to time Exam Limitations: no limitations Nutritional Appearance: obese HEENT normocephalic, head/scalp atraumatic, moist oral mucous membranes and oropharynx normal HEENT Narrative: Moderate hearing loss, Mallampati is 3, no thrush Eyes PERRL, EOMs intact bilaterally and conjunctivae normal Eyes Narrative: No scleral icterus Neck no lymphadenopathy and supple Neck Narrative: Trachea midline, no thyroid enlargement, neck is short and thick Resp normal respiratory effort, no retractions, no use of accessory muscles and clear to auscultation bilaterally Resp Narrative: diminished but clear, basilar crackles have cleared Auscultation: Negative for crackles, rhonchi or wheezes Cardio regular rate, regular rhythm, S1 normal heart sound, S2 normal heart sound, no murmurs, no rub, no gallops and no clicks GI normal to inspection, nondistended, normoactive bowel sounds, soft to palpation and non-tender Extremity no clubbing, cyanosis or edema Extremity Narrative: Right distal upper extremity fistula with a thrill and bruit Skin skin turgor normal and no jaundice Skin Narrative: Right chest port-clean and dry, dressing intact has AV fistula in LUE with good thrill Neuro oriented x3, moves all extremities and no focal motor deficits Neuro Narrative: Significant generalized weakness noted but no focal deficits Speech: speech normal Psych thought process normal, cooperative and affect normal Psych Narrative: Very pleasant, eye contact is good, patient interacts appropriately Appearance: appropriate Weight / BMI Weight Weight: 95.11 kg Body Mass Index (BMI) 31.0 ABG / Lab / Microbiology Data 11/15/23 06:50 11/15/23 06:50 Laboratory: Laboratory Results - last 24 hr 11/15/23 06:50: WBC 6.2, RBC 3.66 L, Hgb 10.3 L, Hct 35.1 L, MCV 95.9 H, MCH 28.1, MCHC 29.3 L, RDW Std Deviation 65.8 H, RDW Coeff of Lencho 18.6 H, Plt Count 79 L, MPV 9.8, Differential Comment SCANNED, Sodium 138, Potassium 4.8, Chloride 105, Carbon Dioxide 24.0, Anion Gap 9, BUN 78 H, Creatinine 7.34 H, Estim Creat Clear Calc 9.59, Est GFR (MDRD) Af Amer 9 L, Est GFR (MDRD) Non-Af 8 L, BUN/Creatinine Ratio 10.6, Glucose 110 H, Calcium 8.9 D/C Instructions Discharge Diet: Low fat / Low cholesterol and Renal Diet Meaningful Use Info Meaningful Use Meaningful Use Diagnoses (Choose all that apply): None applicable Ischemic Stroke Statin Dosing Therapy Reference: STATIN DOSE THERAPY REFERENCE: * Patients > 75 years receive moderate or high dose statin therapy. * Patients 75 years or YOUNGER should receive HIGH intensity statin dose unless contraindicated. You will be required to document reason for non-treatment if statin daily dose does not meet guidelines. HIGH DOSE STATIN THERAPY DAILY Atorvastatin > than or = to 40 mg Rosuvastatin > than or = to 20 mg Amlodipine + Atorvastatin > than or = to 2.5/40 mg Ezetimibe + Simvastatin 10/80 mg Simvastatin 80mg Discharge Plan Admission Admit Date/Time: 11/11/23 16:31 Primary Reason for Your Visit: Shortness of Breath Attending Provider: Ban He Primary Care Provider: Martin Nunez Consulting Providers: Sugar Rao; Christopher Cook Discharge Orders/Prescriptions Prescriptions: Continued budesonide 3 mg capsule,delayed,extend.release 6 mg PO DAILY Bibiana-Leoncio 0.8 mg tablet 1 tab PO DAILY clopidogrel 75 mg Tablet 75 mg PO DAILY Qty: 0 0RF midodrine 5 mg tablet 10 mg PO MOWEFR Patient Comments: takes it if sbp is less than 120 Rx Instructions: GIVE PRIOR TO DIALYSIS carvedilol 3.125 mg tablet 3.125 mg PO BID amiodarone 200 mg tablet 200 mg PO DAILY sucralfate 1 gram Tablet 1 g PO 4X/DAY Rx Instructions: GIVE 1 TABLET BY MOUTH BEFORE MEAL AND AT BEDTIME pantoprazole 40 mg Tablet,Delayed Release (Dr/Ec) 40 mg PO BID acetaminophen 325 mg Tablet 650 mg PO Q6H PRN PRN (Reason: Pain 1-10 Or Fever>100.7) Qty: 0 0RF albuterol sulfate 2.5 mg /3 mL (0.083 %) Solution For Nebulization 2.5 mg inhalation Q4H PRN (Reason: bronchospasm) Qty: 0 0RF menthol-zinc oxide [Calmoseptine] 0.44-20.6 % Ointment 1 applic topical BID Qty: 0 0RF Protocol: *Topical Application Instructions APPLICATION INSTRUCTIONS: apply to affected areas bisacodyl 10 mg suppository [address] DAILY PRN (Reason: constipation) mineral oil [Fleet Mineral Oil] Enema [address] DAILY PRN (Reason: constipation) Rx Instructions: discard any unused portion atorvastatin [Lipitor] 20 mg tablet 20 mg PO QHS magnesium hydroxide [Milk of Magnesia] 400 mg/5 mL suspension 30 ml PO DAILY PRN (Reason: constipation) ondansetron 4 mg tablet,disintegrating 4 mg PO Q6H PRN (Reason: nausea ) Velphoro 500 mg tablet,chewable 500 mg PO TID Referrals / Follow Up: Martin Nunez DO [Primary Care Provider] - Within 1 Month Disposition Disposition (needs filled in before D/C Order can be placed): Long-Term Facility Charges/Coding Visit Charges Inpatient E&M: 45250 SNF Disch >30 Min
--- NOTE | 2023-11-15 12:26 | PCM.TXEXTCAR ---
Diet Diet Order/Speech Therapy: 11/14/23 10:41 Diet: Renal - General Food consistency:: Regular Liquid Consistency:: Regular/Thin Is pt able to select menu?: Yes Routine Orders/Code Status Suppository Frequency: Daily PRN O2 Liters per Minute: 2 L O2 Frequency: Continuous (Wean as able to as needed) Routine Lab Work: CBC (5 to 7 days) and BMP (5 to 7 days) Code Status: Full Code Wound(s) LORI: Wound Type: Skin Tear Bilateral heels: Wound Type: Stasis Ulcer Left Toes: Wound Type: Surgical Incision Lt FA: Wound Type: Skin Tear Suggestions for Active Care Change Position every (hours): 37 Therapies Weight Bearing: Full weight bearing Physical Therapy: Eval and Treat Occupational Therapy: Eval and Treat Problem/Diagnosis (1) End-stage renal disease on hemodialysis: Status: Acute Code(s): N18.6 - End stage renal disease; Z99.2 - Dependence on renal dialysis (2) Fluid overload: Status: Acute Code(s): E87.70 - Fluid overload, unspecified (3) Anemia: Status: Acute Code(s): D64.9 - Anemia, unspecified Plan [facility] is able to except. Allergies/Procedures Done in Hospital Allergies Iodinated Contrast Media Allergy (Intermediate, Verified 11/11/23 13:08) KIDNEY FAILURE enoxaparin (From Lovenox) Allergy (Verified 11/11/23 13:08) Other HIT heparin Allergy (Verified 11/11/23 13:08) Other HIT aspirin Adverse Reaction (Verified 11/11/23 13:08) Other BLEEDING Procedures: Dialysis, EKG and - (Chest x-ray) Type of Care/Length of Stay Estimated LOS: Convalescent Care Less Than 30 days Type of Care Needed: Skilled Rehab Potential: Fair Prognosis: Fair Additional Orders/Day of Discharge Day of Discharge: 11/15/23 Dietary and Speech Recommendations Dietitian Recommendations/Changes: Will liberalize diet to Renal General to promote improved intake at meals, as pt refusing PO due to dietary restrictions. Follow Up Care Please Follow Up With: Gen Patterson DO When: 4 to 6 weeks for thrombocytopenia Discharge Plan Admission Admit Date/Time: 11/11/23 16:31 Primary Reason for Your Visit: Shortness of Breath Attending Provider: Ban He Primary Care Provider: Martin Nunez Consulting Providers: Sugar Rao; Christopher Cook Discharge Orders/Prescriptions Prescriptions: Continued budesonide 3 mg capsule,delayed,extend.release 6 mg PO DAILY Bibiana-Leoncio 0.8 mg tablet 1 tab PO DAILY clopidogrel 75 mg Tablet 75 mg PO DAILY Qty: 0 0RF midodrine 5 mg tablet 10 mg PO MOWEFR Patient Comments: takes it if sbp is less than 120 Rx Instructions: GIVE PRIOR TO DIALYSIS carvedilol 3.125 mg tablet 3.125 mg PO BID amiodarone 200 mg tablet 200 mg PO DAILY sucralfate 1 gram Tablet 1 g PO 4X/DAY Rx Instructions: GIVE 1 TABLET BY MOUTH BEFORE MEAL AND AT BEDTIME pantoprazole 40 mg Tablet,Delayed Release (Dr/Ec) 40 mg PO BID acetaminophen 325 mg Tablet 650 mg PO Q6H PRN PRN (Reason: Pain 1-10 Or Fever>100.7) Qty: 0 0RF albuterol sulfate 2.5 mg /3 mL (0.083 %) Solution For Nebulization 2.5 mg inhalation Q4H PRN (Reason: bronchospasm) Qty: 0 0RF menthol-zinc oxide [Calmoseptine] 0.44-20.6 % Ointment 1 applic topical BID Qty: 0 0RF Protocol: *Topical Application Instructions APPLICATION INSTRUCTIONS: apply to affected areas bisacodyl 10 mg suppository 10 mg [place] DAILY PRN (Reason: constipation) mineral oil [Fleet Mineral Oil] Enema 118 ml [place] DAILY PRN (Reason: constipation) Rx Instructions: discard any unused portion atorvastatin [Lipitor] 20 mg tablet 20 mg PO QHS magnesium hydroxide [Milk of Magnesia] 400 mg/5 mL suspension 30 ml PO DAILY PRN (Reason: constipation) ondansetron 4 mg tablet,disintegrating 4 mg PO Q6H PRN (Reason: nausea ) Velphoro 500 mg tablet,chewable 500 mg PO TID Referrals / Follow Up: Martin Nunez DO [Primary Care Provider] - Within 1 Month Disposition Disposition (needs filled in before D/C Order can be placed): [facility]
--- NOTE | 2023-11-15 13:03 | CASEMGMT ---
Discharge Planning Discharge orders, signed med list, and transport time sent to [facility] via [facility]. Physicians will transport patient by cot at 2p. Nursing, SW, patient, and son (Paul) updated. Na Gordon DC Planning Asst.
[2023-11-15] MEDS: 0.9% Saline Lock 10 ML Syringe IV (13:36)
[2023-11-15] MEDS: Ondansetron 4 MG/2 ML Vial IV (13:36)
--- NOTE | 2023-11-15 13:44 | PHA.DC.MR.R ---
[facility] has performed discharge medication reconciliation for this patient. The patient's discharge medication list was reviewed for discrepancies and discrepancies were resolved. Medications at Discharge Home Medications budesonide 3 mg capsule,delayed,extended release 6 mg PO DAILY stomach 06/16/23 vitamin B complex-vitamin C-folic acid 0.8 mg tablet (Bibiana-Leoncio) 1 tab PO DAILY supplement 06/16/23 clopidogrel 75 mg tablet 75 mg PO DAILY antiplatelet #0 tabs 06/18/23 midodrine 5 mg tablet 10 mg PO MOWEFR blood pressure-dialysis 07/28/23 amiodarone 200 mg tablet 200 mg PO DAILY heart rate 08/31/23 carvedilol 3.125 mg tablet 3.125 mg PO BID HIGH BLOOD PRESSURE 08/31/23 pantoprazole 40 mg tablet,delayed release 40 mg PO BID reflux 08/31/23 sucralfate 1 gram tablet 1 g PO 4X/DAY reflux 08/31/23 acetaminophen 325 mg tablet 650 mg (2 x 325 mg) PO Q6H PRN PRN Pain 1-10 Or Fever>100.7 #0 tabs 09/18/23 albuterol sulfate 2.5 mg/3 mL (0.083 %) solution for nebulization 2.5 mg (3 mL) inhalation Q4H PRN bronchospasm #0 mL 09/18/23 menthol 0.44 %-zinc oxide 20.6 % topical ointment (Calmoseptine) 1 applic topical BID skin #0 grams 09/18/23 atorvastatin 20 mg tablet (Lipitor) 20 mg PO QHS cholesterol 10/22/23 bisacodyl 10 mg rectal suppository 10 mg [place] DAILY PRN constipation 10/22/23 magnesium hydroxide 400 mg/5 mL oral suspension (Milk of Magnesia) 30 ml PO DAILY PRN constipation 10/22/23 mineral oil (Fleet Mineral Oil enema) 118 ml [place] DAILY PRN constipation 10/22/23 ondansetron 4 mg disintegrating tablet 4 mg PO Q6H PRN nausea 10/22/23 sucroferric oxyhydroxide 500 mg chewable tablet (Velphoro) 500 mg PO TID chronic kidney disease 10/22/23
--- NOTE | 2023-11-15 16:05 | CHAPLAIN ---
Type of Pastoral Visit _x__ Initial Visit ___ Follow-up Visit ___ On-call Visit ___ General Patient Visit ___ Spiritual Assessment ___ Family Conference ___ Bereavement ___ Rapid Response ___ Code Blue ___ Other (describe below) Pastoral Care Referral From _x__ Patient ___ Family ___ Nurse ___ Physician ___ Exploration Geologist ___ Molder Fitting ___ Other (describe below) Sacrament/Intervention ___ Active listening ___ Anointing ___ Amish ___ Bereavement ___ Communion ___ Klarissa exploration ___ ___ Life review _x__ Prayer ___ Reconciliation ___ Sacrament of Sick _x__ Supportive presence ___ Wedding ___ Other (describe below) Pastoral Comments catching up on recent life since last admission; pt is of good spirits at this time; crew came to olive picker pt to go back to SNF at this time; pt requested a prayer before he left
== END 2023-11-15 14:14 | DRG 291 ==
LOC: ED 16:20 → PCU 16:29
PROVIDERS: Admitting Provider Student in an Organized Health Care Education/Training Program; Emergency Provider Emergency Medicine; PCP Student in an Organized Health Care Education/Training Program; Visit Provider Internal Medicine
DX: I13.2 Hypertensive heart and chronic kidney disease with heart failure and with stage 5 chronic kidney disease, or end stage renal disease (principal); I50.33 Acute on chronic diastolic (congestive) heart failure; I71.00 Dissection of unspecified site of aorta; N18.6 End stage renal disease; D69.6 Thrombocytopenia, unspecified; D63.1 Anemia in chronic kidney disease; E11.22 Type 2 diabetes mellitus with diabetic chronic kidney disease; E11.51 Type 2 diabetes mellitus with diabetic peripheral angiopathy without gangrene; I48.0 Paroxysmal atrial fibrillation; D50.0 Iron deficiency anemia secondary to blood loss (chronic); K21.9 Gastro-esophageal reflux disease without esophagitis; G47.33 Obstructive sleep apnea (adult) (pediatric); I25.10 Atherosclerotic heart disease of native coronary artery without angina pectoris; E78.5 Hyperlipidemia, unspecified; Z99.2 Dependence on renal dialysis; I25.2 Old myocardial infarction; Z91.158 Patient's noncompliance with renal dialysis for other reason; R53.81 Other malaise; Z79.02 Long term (current) use of antithrombotics/antiplatelets; Z79.51 Long term (current) use of inhaled steroids; Z79.899 Other long term (current) drug therapy; Z87.891 Personal history of nicotine dependence; Z86.711 Personal history of pulmonary embolism; Z86.718 Personal history of other venous thrombosis and embolism; Z85.72 Personal history of non-Hodgkin lymphomas; Z85.51 Personal history of malignant neoplasm of bladder
CPT/HCPCS: 36415; 36600; 71045; 80048; 82803; 83880; 84484; 85025; 85027; 90937; 93005; 94640; 97110; 97162; 97166; 97530; 97535; 99285; A4216; G0257; J2405

== ENCOUNTER 2023-12-12 21:46 | Inpatient (IN) | payer MEDICARE, BC, SELFPAY ==
[2023-12-12 21:47] VITALS: TEMP 36.4; BMI 31.8
[2023-12-12 21:49] VITALS: BP 122/69; PULSE 63; RESP 18; O2SAT 94
--- NOTE | 2023-12-12 22:02 | CT_ITS ---
STUDY: CT BRAIN WITHOUT CONTRAST REASON FOR EXAM: Male, 78 years old. Confused RADIATION DOSAGE (If Supplied By Facility): CTDIvol = ( 44.99 ) mGy, DLP = ( 880.47 ) mGycm TECHNIQUE: Transaxial CT imaging of the brain was performed without administration of intravenous contrast material. Individualized dose optimization techniques were used for this CT. COMPARISON: No relevant priors. FINDINGS: Normal soft tissue structures. Normal calvarium. There is moderate cerebral atrophy with widening of the extra-axial spaces and ventricular dilatation. There are areas of decreased attenuation within the white matter tracts of the supratentorial brain, consistent with microvascular disease changes. Normal basal ganglia and thalami. Normal brainstem. Normal cerebellum. There is no intracranial hemorrhage. There are no findings of an acute ischemic infarction. Normal visualized paranasal sinuses. CT/Brain/Head without Contrast IMPRESSION: Chronic involutional changes of the brain. Electronically Signed: Yaya Busby MD at 23:38 EDT ,
--- NOTE | 2023-12-12 22:03 | EKG12_ITS ---
Test Reason : CONFUSION Blood Pressure : / mmHG Vent. Rate : 075 BPM Atrial Rate : 000 BPM P-R Int : 000 ms QRS Dur : 176 ms QT Int : 418 ms P-R-T Axes : 000 -70 043 degrees QTc Int : 466 ms Atrial fibrillation LAFB Left axis deviation Right bundle branch block Abnormal ECG Confirmed by Benjamin Kim ([id number]), book editor PASCUAL VEGA ([id number]) on 12/14/2023 11:35:35 AM Referred By: RUBEN Confirmed By:Benjamin Kim
--- NOTE | 2023-12-12 22:06 | EX.ED.DYSGE1 ---
HPI History of Present Illness Chief Complaint: Confusion Informant: patient Onset/Context/Timing Context: Gradual Onset Timing: Continuous Current Severity: Mild Maximum Severity: Mild Narrative Narrative: 78-year-old male from [facility] history of end-stage renal disease and A-fib. He is on Plavix. Patient himself is confused and is very limited informant. At home he was from home and lives alone which is accurate. I spoke to the [facility] the nurse there told me he has been more confused last 2 days. No falls or head trauma. No fever. No vomiting or diarrhea. The last 2 times he was his get dialysis which was Tuesday and today he gets anxious and then refuses to take anymore dialysis he has only had 1 hour of the last 2 treatments. No specific illness. He was admitted to their facility on November 14 and he came from a hospital admission at that time. Prior similar symptoms: Yes Recent Illness/Hospitalization: No PFSH PFSH Medical History Elevated troponin End-stage renal disease on hemodialysis Anemia Peripheral vascular disease Depression Diabetes Chronic pain Kidney disease Hypertension DVT (deep venous thrombosis) Noncompliance of patient with renal dialysis Thrombocytopenia Elevated troponin Anemia GI bleed Anemia requiring transfusions Chronic anticoagulation Anemia Dialysis patient Coronary artery disease History of GI bleed Loss of hearing Wears glasses Wears partial dentures Wears dentures Cancer Arthritis Low iron Former smoker Sleep apnea History of echocardiogram (~06/30/22) History of stress test (~05/03/22) Cardiology follow-up encounter (~04/04/23) Wide-complex tachycardia Duodenal ulcer Atrial fibrillation Hepatic cyst Iron deficiency anemia ESRD (end stage renal disease) on dialysis Aortic root dilatation Hyperparathyroidism CKD (chronic kidney disease) stage 5, GFR less than 15 ml/min HIT (heparin-induced thrombocytopenia) Bladder cancer HLD (hyperlipidemia) CHF (congestive heart failure) History of pulmonary embolism History of DVT (deep vein thrombosis) History of solitary pulmonary nodule Renal calculus Preop cardiovascular exam Essential hypertension Lymphoma VTE (venous thromboembolism) Lower gastrointestinal bleeding Left upper chest discomfort Home Medications ?Medication ?Instructions ?Recorded ?Last Taken ?Type budesonide 3 mg 6 mg PO DAILY stomach 06/16/23 Unknown History capsule,delayed,extended release vitamin B complex-vitamin C-folic 1 tab PO DAILY supplement 06/16/23 Unknown History acid 0.8 mg tablet (Bibiana-Leoncio) clopidogrel 75 mg tablet 75 mg PO DAILY antiplatelet #0 tabs 06/18/23 Unknown Rx midodrine 5 mg tablet 10 mg PO MOWEFR blood 07/28/23 Unknown History pressure-dialysis amiodarone 200 mg tablet 200 mg PO DAILY heart rate 08/31/23 Unknown History carvedilol 3.125 mg tablet 3.125 mg PO BID HIGH BLOOD PRESSURE 08/31/23 Unknown History pantoprazole 40 mg tablet,delayed 40 mg PO BID reflux 08/31/23 Unknown History release sucralfate 1 gram tablet 1 g PO 4X/DAY reflux 08/31/23 Unknown History acetaminophen 325 mg tablet 650 mg (2 x 325 mg) PO Q6H PRN PRN 09/18/23 Unknown Rx Pain 1-10 Or Fever>100.7 #0 tabs albuterol sulfate 2.5 mg/3 mL 2.5 mg (3 mL) inhalation Q4H PRN 09/18/23 Unknown Rx (0.083 %) solution for nebulization bronchospasm #0 mL menthol 0.44 %-zinc oxide 20.6 % 1 applic topical BID skin #0 grams 09/18/23 Unknown Rx topical ointment (Calmoseptine) atorvastatin 20 mg tablet (Lipitor) 20 mg PO QHS cholesterol 10/22/23 Unknown History bisacodyl 10 mg rectal suppository 10 mg AL DAILY PRN constipation 10/22/23 Unknown History magnesium hydroxide 400 mg/5 mL 30 ml PO DAILY PRN constipation 10/22/23 Unknown History oral suspension (Milk of Magnesia) mineral oil (Fleet Mineral Oil 118 ml AL DAILY PRN constipation 10/22/23 Unknown History enema) ondansetron 4 mg disintegrating 4 mg PO Q6H PRN nausea 10/22/23 Unknown History tablet sucroferric oxyhydroxide 500 mg 500 mg PO TID chronic kidney 10/22/23 Unknown History chewable tablet (Velphoro) disease aluminum-magnesium hydroxide 225 30 ml PO Q4H PRN PRN GI distress 12/12/23 Unknown History mg-200 mg/5 mL oral suspension calcitriol 0.25 mcg capsule 0.75 mcg PO QODAY 12/12/23 Unknown History calcium acetate 667 mg tablet 667 mg PO .ac 12/12/23 Unknown History vitamin B complex-vitamin C-folic 1 tab PO DAILY 12/12/23 Unknown History acid 0.8 mg tablet (Renal Vitamin) Allergy/AdvReac Type Severity Reaction Status Date / Time Iodinated Contrast Media Allergy Intermediate KIDNEY Verified 11/11/23 13:08 FAILURE enoxaparin (From Lovenox) Allergy Other Verified 11/11/23 13:08 heparin Allergy Other Verified 11/11/23 13:08 aspirin AdvReac Other Verified 11/11/23 13:08 Family History Father Cancer lung Arrhythmia Brother Cancer Mother Dementia Surgical History History of foot surgery S/P peripheral artery angioplasty with stent placement History of bladder surgery AV fistula History of corrected cleft lip and palate History of tonsillectomy History of cataract extraction H/O total cystectomy Social History household members: none Smoking Status: Former smoker how long ago did patient quit smoking: Started age 7, stopped at 17, started again 22-2 ppd until quit 2008 alcohol intake: never substance use type: does not use caffeine: No ROS ROS ED ROS Narrative Patient's confusion. Patient and extended-care facility denies any nausea, vomiting, diarrhea or fever. No falls. Patient himself is a limited informant. Review of Systems ROS Unobtainable: due to mental status Constitutional Constitutional ED: Denies fever(s) Cardiovascular Cardiovascular: Denies chest pain Respiratory/Chest Respiratory/Chest: Denies cough Gastrointestinal Gastrointestinal: Denies abdominal pain, diarrhea, nausea or vomiting Neurologic Neurologic: Denies headache(s) Endocrine Endocrinology: Denies cold intolerance Hematologic/Lymphatic Hematologic/Lymphatic: Reports none Allergic/Immunologic Allergic/Immunologic ED: Denies mouth swelling or tongue swelling EXAM Physical Exam Narrative Exam Narrative: 78-year-old male sitting upright in bed. No one else in the room. Vital signs are stable afebrile. Pulse ox 94% on room air no hypoxia. No distress. H EENT exam pupils are round reactive light. No facial droop. No facial or scalp trauma. Neck nontender. Lungs clear to auscultation bilaterally. Heart rate about 63. A-fib. Chest wall and ribs nontender. Abdomen soft nontender. Patient is moving all 4 extremities. Normal hose wrapper strength. Dorsi plantarflexion intact. He is awake. He knows he is in the hospital. But he thinks he lives at home. He lives in a halfway. He does not know the date. Const Vital Signs: 12/12/23 21:47 12/12/23 21:49 12/12/23 23:19 Temperature 97.6 F L Temperature Source Temporal Pulse Rate 63 73 Respiratory Rate 18 18 Blood Pressure 122/69 H 147/97 H Blood Pressure Mean 86 113 Pulse Ox 94 98 Oxygen Delivery Method Room Air Nasal Cannula Oxygen Flow Rate (L/min) 3 Positive well nourished and well developed; Negative for cachectic, contractures or unkempt General Appearance ED: well developed and NAD; Negative for unkempt, cachectic, contractures, cyanotic, diaphoretic or pallor Nutritional Appearance: Negative for cachectic HEENT Reports moist mucous membranes Negative for trauma or tenderness Eyes PERRL and EOMs intact bilaterally General Eye ED: Negative for pale conjunctiva, scleral icterus or other Neck no lymphadenopathy, supple and no JVD General: Negative for tenderness Chest Wall inspection of chest normal and palpation of chest normal Chest: Negative for other Resp normal respiratory effort and clear to auscultation bilaterally Effort and Inspection: Negative for retractions Auscultation: Negative for rales, rhonchi, wheezes or diminished lung sounds Cardio S1 normal heart sound and S2 normal heart sound; Negative for regular rate or regular rhythm Rate: Negative for bradycardia or tachycardic Rhythm: abnormal rhythm irregularly irregular GI normal to inspection, nondistended, normoactive bowel sounds, non-tender, non-distended and no masses Inspection: Negative for abdominal distention Auscultation: normoactive bowel sounds Palpation: soft; Negative for tender, guarding, mass or rebound tenderness present Back/Spine no CVA tenderness General Back: Negative for CVA tenderness Cervical Spine: Negative for cervical spine tenderness Thoracic Spine / Upper Back: Negative for thoracic spinal tenderness or paraspinal muscle tenderness Lumbar Spine / Lower Back: Negative for lumbar spinal tenderness Extremity normal to inspection General Extremety ED: Negative for edema or tenderness General Extremity: Negative for edema Neuro No oriented x3 Neuro Narrative: Confused. Does know he is in the hospital. Does not answer questions but not necessarily accurate. No focal motor deficits. Sensorium / Orientation: alert; Negative for orientation impaired, lethargic or stuporous Motor Exam: strength 5/5 throughout Psych mental status grossly normal Appearance: Negative for unkempt Attitude: No agitated Mood & Affect: Negative for depressed Skin no rashes or lesions noted and no wounds General Skin Exam: Negative for jaundice or pallor Lesions: No lesion noted Rashes: No rashes noted Trauma: Negative for abrasion Wounds: Negative for wounds noted MDM MDM MDM Narrative Medical decision making narrative: 78-year-old male who has had limited dialysis his last 2 treatments on Tuesday and today. Change in mental status with confusion. No recent illness. Will undergo mental status workup including a CAT scan and labs. Most likely this is metabolic. It may be from uremia. Versus infection. I spoke to a nurse at the patient's extended care facility who told me the patient for last 2 dialysis Tuesday and today is only had about an hour total because he gets anxious and wants to be taken off the dialysis treatment each day. I called the patient's son and he said there is been no talk about putting him on hospice. He was not aware that the patient had been getting his full run of dialysis. He has told me that his dad told him meaning the patient told him that there were issues with the dialysis treatment on Tuesday and he did not get a full run. History & Record Review Discussion w/independent historian: Patient Additional record(s) reviewed:: Prior inpatient record, Prior outpatient record, Prior ED visit and Prior labs Lab Data Attestation: I reviewed the patient's lab results. Lab results narrative: Chest x-ray shows chronic changes. Suspect lower extremity at pulmonary edema. Cannot rule out a right lower lobe infiltrate but has been seen before and given his history I think this is pulmonary edema. CT brain chronic changes. No obvious acute stroke or bleed. Urinalysis has 10-25 white cells. 10-25 red cells but also has 10-25 epithelial cells 4+ bacteria no nitrates. Most likely contaminant. CBC shows a white count of 5. H&H 8.6 and 27.2 patient has a chronic anemia. Platelets 155. Labs: Laboratory Results - last 24 hr 12/12/23 22:30 WBC 5.2 RBC 3.12 L Hgb 8.6 L Hct 27.2 L MCV 87.2 MCH 27.6 MCHC 31.6 L RDW Std Deviation 61.5 H RDW Coeff of Lencho 19.5 H Plt Count 155 MPV 10.9 Immature Gran % (Auto) 0.400 Neut % (Auto) 82.6 H Lymph % (Auto) 7.6 L [place] % (Auto) 8.2 Eos % (Auto) 1.0 Baso % (Auto) 0.2 Absolute Neuts (auto) 4.3 Absolute Lymphs (auto) 0.40 L Nucleated RBC % 0 Differential Comment SEE COMMENT Platelet Estimate ADEQUATE RBC Morphology N CHROM Anisocytosis RARE Sodium Cancelled Potassium Cancelled Chloride Cancelled Carbon Dioxide Cancelled Anion Gap Cancelled BUN Cancelled Creatinine Cancelled Estim Creat Clear Calc Cancelled Est GFR (MDRD) Af Amer Cancelled Est GFR (MDRD) Non-Af Cancelled BUN/Creatinine Ratio Cancelled Glucose Cancelled Calcium Cancelled Total Bilirubin Cancelled AST Cancelled ALT Cancelled Alkaline Phosphatase Cancelled Total Protein Cancelled Albumin Cancelled Globulin Cancelled Albumin/Globulin Ratio Cancelled Urine Color Yellow Urine Clarity Turbid Urine pH 8.0 Ur Specific [place]uttle 1.010 Urine Protein 100 H Urine Glucose (UA) Normal Urine Ketones Negative Urine Occult Blood 250 H Urine Nitrite Negative Urine Bilirubin 3 H Urine Urobilinogen Normal Ur Leukocyte Esterase 500 H Urine RBC 10-25 SEEN Urine WBC 10-25 SEEN Ur Squamous Epith Cells 10-25 SEEN Urine Bacteria 4+ Hyaline Casts 5-10 SEEN Fine Granular Casts 0-5 SEEN Urine Mucus 1+ Radiography Chest X-Ray - ED: Read by ED Physician, Heart, Mediastinum, Bony Structures, No Acute Disease and - (Lower lobe pulmonary edema. Right lower lobe suspect pulmonary edema cannot rule out infiltrate.) Rhythm Strip Rhythm Strip: A-fib Rate: 75 Ectopy: None EKG Initial EKG: Attestation: I personally reviewed and interpreted this EKG as follows: Interpretation: Atrial Fibrillation Comments: A-fib rate 75. No acute signs of OH or ischemia. Discharge Plan Triage Chief Complaint: Confusion ED Provider: Kory Flynn Dx/Rx/DC Orders Prescriptions: No Action budesonide 3 mg capsule,delayed,extend.release 6 mg PO DAILY Bibiana-Leoncio 0.8 mg tablet 1 tab PO DAILY clopidogrel 75 mg Tablet 75 mg PO DAILY Qty: 0 0RF midodrine 5 mg tablet 10 mg PO MOWEFR Patient Comments: takes it if sbp is less than 120 Rx Instructions: GIVE PRIOR TO DIALYSIS carvedilol 3.125 mg tablet 3.125 mg PO BID amiodarone 200 mg tablet 200 mg PO DAILY sucralfate 1 gram Tablet 1 g PO 4X/DAY Rx Instructions: GIVE 1 TABLET BY MOUTH BEFORE MEAL AND AT BEDTIME pantoprazole 40 mg Tablet,Delayed Release (Dr/Ec) 40 mg PO BID aluminum-magnesium hydroxide 225-200 mg/5 mL suspension 30 ml PO Q4H PRN PRN (Reason: GI distress) calcitriol 0.25 mcg capsule 0.75 mcg PO QODAY Rx Instructions: every tuesday, tue, tue before dialysis calcium acetate 667 mg tablet 667 mg PO .ac Rx Instructions: with meals Renal Vitamin 0.8 mg tablet 1 tab PO DAILY acetaminophen 325 mg Tablet 650 mg PO Q6H PRN PRN (Reason: Pain 1-10 Or Fever>100.7) Qty: 0 0RF albuterol sulfate 2.5 mg /3 mL (0.083 %) Solution For Nebulization 2.5 mg inhalation Q4H PRN (Reason: bronchospasm) Qty: 0 0RF menthol-zinc oxide [Calmoseptine] 0.44-20.6 % Ointment 1 applic topical BID Qty: 0 0RF Protocol: *Topical Application Instructions APPLICATION INSTRUCTIONS: apply to affected areas bisacodyl 10 mg suppository 10 mg AL DAILY PRN (Reason: constipation) mineral oil [Fleet Mineral Oil] Enema 118 ml AL DAILY PRN (Reason: constipation) Rx Instructions: discard any unused portion atorvastatin [Lipitor] 20 mg tablet 20 mg PO QHS magnesium hydroxide [Milk of Magnesia] 400 mg/5 mL suspension 30 ml PO DAILY PRN (Reason: constipation) ondansetron 4 mg tablet,disintegrating 4 mg PO Q6H PRN (Reason: nausea ) Velphoro 500 mg tablet,chewable 500 mg PO TID Primary Care Provider: Martin Nunez Referrals: Martin Nunez DO [Primary Care Provider] - Print Language: Lithuanian
[2023-12-12 22:45] LABS: Absolute Neutrophil Count 4.3 X10^3/uL (2.0-7.7); Basophil# 0.01 X10^3/uL; Basophil% 0.2 % (0-1); Eosinophil# 0.05 X10^3/uL; Hematocrit 27.2 % (40-54); Hemoglobin 8.6 g/dL (13.0-16.5); Lymphocyte % 7.6 % (19-41); Mean Corp Hgb Conc 31.6 g/dL (32-36); Mean Corpuscular Hgb 27.6 pg (27.0-32.0); Mean Corpuscular Volume 87.2 fL (80-94); Mean Platelet Vol. 10.9 fl (6.2-12.0); Monocyte# 0.43 X10^3/uL; Monocyte% 8.2 % (0-10); NRBC Flagged by Analyzer 0 % (0-5); Neutrophil # 4.33 X10^3/uL (2.7-7.7); Neutrophil % 82.6 % (47-70); POSITIVE DIFFERENTIAL YES; Platelet Count 155 K/mm3 (150-450); RBC Distribution Width CV 19.5 % (11.6-14.6); RBC Distribution Width SD 61.5 fl (35.1-43.9); Red Blood Count 3.12 M/mm3 (4.6-6.2); White Blood Count 5.2 K/mm3 (4.4-11.0)
--- NOTE | 2023-12-12 22:45 | RAD_ITS ---
STUDY: X-RAY CHEST REASON FOR EXAM: Male, 78 years old. Confused TECHNIQUE: AP portable view of the chest. COMPARISON: November 11, 2023 FINDINGS: Port the right extends to the right atrium. There are lower lung interstitial increased opacities. There is no demonstrated pleural abnormality. Normal size heart. There are calcified hilar lymph nodes. Normal visualized pulmonary arteries. There is atherosclerotic calcification of the aortic arch with tortuosity. Normal visualized thoracic spine. Normal visualized ribs, clavicles, and shoulders. There is no demonstrated abnormality of the visualized soft tissue structures of the upper abdomen. RAD/Chest 1 View (Portable) IMPRESSION: Mild interstitial fibrosis or infiltrates. Electronically Signed: Yaya Busby MD at 23:41 EDT ,
[2023-12-12 22:47] LABS: Color, Urine Yellow (Yellow); Glucose, Dipstick Normal (Normal); Ketone-Dipstick Negative (Negative); Leukocyte Esterase-Dipstick 500 /ul (Negative); Nitrite-Dipstick Negative (Negative); Occult Blood-Urine 250 /ul (Negative); Protein-Dipstick 100 mg/dl (Negative); Urine Clarity Turbid (Clear); Urine Urobilinogen Normal (Normal)
[2023-12-12 22:48] LABS: Urine Bilirubin Dipstick 3 mg/dL (Negative)
[2023-12-12 22:49] LABS: Bacteria 4+ /hpf (None Seen); Fine Granular Cast- Urine 0-5 SEEN /lpf (0-5); Hyaline Cast 5-10 SEEN /lpf (0-5); Mucous, Urine 1+ /hpf (<or=2+); Squamous Epithelial Cells - UA 10-25 SEEN /hpf (0-5); White Blood Cells 10-25 SEEN /hpf (0-5)
[2023-12-12 22:50] LABS: Red Blood Cells-Urine 10-25 SEEN /hpf (0-5)
[2023-12-12 23:11] LABS: Differential Indicated SCAN CRITERIA MET
[2023-12-12 23:12] LABS: Anisocytosis RARE; Platelet Estimate ADEQUATE (ADEQ); Red Cell Morphology N CHROM NORMAL (NORM C&C)
[2023-12-12 23:19] VITALS: BP 147/97; PULSE 73; RESP 18; O2SAT 98
--- NOTE | 2023-12-12 23:59 | HP.PCM_ITS ---
HPI - General General Date of Admission: 12/12/23 Date of Service: 12/12/23 Chief Complaint: Confusion HPI Narrative RIA MARIANO, is a 78 M who presents to the emergency room from [facility] after 2 days of worsening confusion. Patient has significant past medical history of end-stage renal disease for which she is on dialysis but has not tolerated the last 2 treatments for dialysis and has only had 1 hour at each session. The patient is confused and is a poor historian at present time. Laboratory studies are white blood cell count of 5.2 hemoglobin 8.6, hematocrit 27.2, platelets 155 last creatinine recorded was 8.4 and urinalysis shows 4+ bacteria, chest x-ray reveals mild interstitial infiltrate and CT scan of the head is negative for acute changes with chronic involutional changes of the brain. Patient will be admitted to the hospital for confusion suspected uremia and nephrology consulted for dialysis. [facility] Medical History Elevated troponin End-stage renal disease on hemodialysis Anemia Peripheral vascular disease Depression Diabetes Chronic pain Kidney disease Hypertension DVT (deep venous thrombosis) Noncompliance of patient with renal dialysis Thrombocytopenia Elevated troponin Anemia GI bleed Anemia requiring transfusions Chronic anticoagulation Anemia Dialysis patient Coronary artery disease History of GI bleed Loss of hearing Wears glasses Wears partial dentures Wears dentures Cancer Arthritis Low iron Former smoker Sleep apnea History of echocardiogram (~06/30/22) History of stress test (~05/03/22) Cardiology follow-up encounter (~04/04/23) Wide-complex tachycardia Duodenal ulcer Atrial fibrillation Hepatic cyst Iron deficiency anemia ESRD (end stage renal disease) on dialysis Aortic root dilatation Hyperparathyroidism CKD (chronic kidney disease) stage 5, GFR less than 15 ml/min HIT (heparin-induced thrombocytopenia) Bladder cancer HLD (hyperlipidemia) CHF (congestive heart failure) History of pulmonary embolism History of DVT (deep vein thrombosis) History of solitary pulmonary nodule Renal calculus Preop cardiovascular exam Essential hypertension Lymphoma VTE (venous thromboembolism) Lower gastrointestinal bleeding Left upper chest discomfort Home Medications ?Medication ?Instructions ?Recorded ?Last Taken ?Type budesonide 3 mg 6 mg PO DAILY stomach 06/16/23 Unknown History capsule,delayed,extended release vitamin B complex-vitamin C-folic 1 tab PO DAILY supplement 06/16/23 Unknown History acid 0.8 mg tablet (Bibiana-Leoncio) clopidogrel 75 mg tablet 75 mg PO DAILY antiplatelet #0 tabs 06/18/23 Unknown Rx midodrine 5 mg tablet 10 mg PO MOWEFR blood 07/28/23 Unknown History pressure-dialysis amiodarone 200 mg tablet 200 mg PO DAILY heart rate 08/31/23 Unknown History carvedilol 3.125 mg tablet 3.125 mg PO BID HIGH BLOOD PRESSURE 08/31/23 Unknown History pantoprazole 40 mg tablet,delayed 40 mg PO BID reflux 08/31/23 Unknown History release sucralfate 1 gram tablet 1 g PO 4X/DAY reflux 08/31/23 Unknown History acetaminophen 325 mg tablet 650 mg (2 x 325 mg) PO Q6H PRN PRN 09/18/23 Unknown Rx Pain 1-10 Or Fever>100.7 #0 tabs albuterol sulfate 2.5 mg/3 mL 2.5 mg (3 mL) inhalation Q4H PRN 09/18/23 Unknown Rx (0.083 %) solution for nebulization bronchospasm #0 mL menthol 0.44 %-zinc oxide 20.6 % 1 applic topical BID skin #0 grams 09/18/23 Unknown Rx topical ointment (Calmoseptine) atorvastatin 20 mg tablet (Lipitor) 20 mg PO QHS cholesterol 10/22/23 Unknown History bisacodyl 10 mg rectal suppository 10 mg FL DAILY PRN constipation 10/22/23 Unknown History magnesium hydroxide 400 mg/5 mL 30 ml PO DAILY PRN constipation 10/22/23 Unknown History oral suspension (Milk of Magnesia) mineral oil (Fleet Mineral Oil 118 ml FL DAILY PRN constipation 10/22/23 Unknown History enema) ondansetron 4 mg disintegrating 4 mg PO Q6H PRN nausea 10/22/23 Unknown History tablet sucroferric oxyhydroxide 500 mg 500 mg PO TID chronic kidney 10/22/23 Unknown History chewable tablet (Velphoro) disease aluminum-magnesium hydroxide 225 30 ml PO Q4H PRN PRN GI distress 12/12/23 Unknown History mg-200 mg/5 mL oral suspension calcitriol 0.25 mcg capsule 0.75 mcg PO QODAY 12/12/23 Unknown History calcium acetate 667 mg tablet 667 mg PO .ac 12/12/23 Unknown History vitamin B complex-vitamin C-folic 1 tab PO DAILY 12/12/23 Unknown History acid 0.8 mg tablet (Renal Vitamin) Allergy/AdvReac Type Severity Reaction Status Date / Time Iodinated Contrast Media Allergy Intermediate KIDNEY Verified 11/11/23 13:08 FAILURE enoxaparin (From Lovenox) Allergy Other Verified 11/11/23 13:08 heparin Allergy Other Verified 11/11/23 13:08 aspirin AdvReac Other Verified 11/11/23 13:08 Family History Father Cancer lung Arrhythmia Brother Cancer Mother Dementia Surgical History History of foot surgery S/P peripheral artery angioplasty with stent placement History of bladder surgery AV fistula History of corrected cleft lip and palate History of tonsillectomy History of cataract extraction H/O total cystectomy Social History household members: none Smoking Status: Former smoker how long ago did patient quit smoking: Started age 7, stopped at 17, started again 21-2 ppd until quit 2008 alcohol intake: never substance use type: does not use caffeine: No ROS Review of Systems ROS Unobtainable: due to mental status Vital Signs Vital Signs Vital Signs: 12/12/23 21:47 12/12/23 21:49 12/12/23 23:19 Temperature 97.6 F L Temperature Source Temporal Pulse Rate 63 73 Respiratory Rate 18 18 Blood Pressure 122/69 H 147/97 H Blood Pressure Mean 86 113 Pulse Ox 94 98 Oxygen Delivery Method Room Air Nasal Cannula Oxygen Flow Rate (L/min) 3 Weight Weight: 215 lb 13.321 oz Body Mass Index (BMI) 31.8 Physical Exam Const alert and no apparent distress Orientation / Consciousness: confused and lethargic HEENT normocephalic and head/scalp atraumatic Eyes PERRL Neck no lymphadenopathy Lymph Lymphatic: no lymphadenopathy noted Resp normal respiratory effort Auscultation: rhonchi lower bilaterally Cardio S1 normal heart sound, S2 normal heart sound and no murmurs GI normal to inspection, nondistended, normoactive bowel sounds Extremity normal capillary refill Skin General Skin Exam: no breakdown Neuro no focal motor deficits and no sensory deficits noted Psych Psych Narrative: confused, [id number] Results Lab / Micro Data 12/12/23 22:30 12/12/23 23:55 Labs: Laboratory Results - last 24 hr 12/12/23 22:30: WBC 5.2, RBC 3.12 L, Hgb 8.6 L, Hct 27.2 L, MCV 87.2, MCH 27.6, MCHC 31.6 L, RDW Std Deviation 61.5 H, RDW Coeff of Lencho 19.5 H, Plt Count 155, MPV 10.9, Immature Gran % (Auto) 0.400, Neut % (Auto) 82.6 H, Lymph % (Auto) 7.6 L, [facility] % (Auto) 8.2, Eos % (Auto) 1.0, Baso % (Auto) 0.2, Absolute Neuts (auto) 4.3, Absolute Lymphs (auto) 0.40 L, Nucleated RBC % 0, Differential Comment SEE COMMENT, Platelet Estimate ADEQUATE, RBC Morphology N CHROM, Anisocytosis RARE, Sodium Cancelled, Potassium Cancelled, Chloride Cancelled, Carbon Dioxide Cancelled, Anion Gap Cancelled, BUN Cancelled, Creatinine Cancelled, Estim Creat Clear Calc Cancelled, Est GFR (MDRD) Af Amer Cancelled, Est GFR (MDRD) Non-Af Cancelled, BUN/Creatinine Ratio Cancelled, Glucose Cancelled, Calcium Cancelled, Total Bilirubin Cancelled, AST Cancelled, ALT Cancelled, Alkaline Phosphatase Cancelled, Total Protein Cancelled, Albumin Cancelled, Globulin Cancelled, Albumin/Globulin Ratio Cancelled, Urine Color Yellow, Urine Clarity Turbid, Urine pH 8.0, Ur Specific [place] 1.010, Urine Protein 100 H, Urine Glucose (UA) Normal, Urine Ketones Negative, Urine Occult Blood 250 H, Urine Nitrite Negative, Urine Bilirubin 3 H, Urine Urobilinogen Normal, Ur Leukocyte Esterase 500 H, Urine RBC 10-25 SEEN, Urine WBC 10-25 SEEN, Ur Squamous Epith Cells 10-25 SEEN, Urine Bacteria 4+, Hyaline Casts 5-10 SEEN, Fine Granular Casts 0-5 SEEN, Urine Mucus 1+ Rhythm Strip Rhythm Strip: A-fib Rate: 75 Ectopy: None Imaging Radiology Impression Brain CT 12/12/23 22:02 IMPRESSION: Chronic involutional changes of the brain. Electronically Signed: Yaya Busby MD at 23:38 EDT , Chest X-Ray 12/12/23 22:45 IMPRESSION: Mild interstitial fibrosis or infiltrates. Electronically Signed: Yaya Busby MD at 23:41 EDT , Assessment & Plan Assessment/Plan (1) History of end stage renal disease: (2) History of deep vein thrombosis: (3) Anemia: (4) Thrombocytopenia: (5) Confusion: PLAN: Plan 1 end-stage renal disease dialysis dependent?admit patient to general medical floor, patient has not tolerated his last 2 treatments of dialysis and suspect uremia?consult Dr. He for assistance with dialysis and further management, check BMP in a.m. will need to have conversation with family members regarding patient's refusal of dialysis and consider this for future plan of his care 2. Lung infiltrate?initiate levofloxacin IV treatment 500 mg every 24 hours, repeat CBC in a.m. 3. Urinary tract infection?levofloxacin as per above for pulmonary infiltrate will also cover gram-negative bacteria and urinary tract 4. DVT prophylaxis?SCDs Charges/Coding Visit Charges Inpatient E&M: 88715 Init Hosp L2
[2023-12-13] VITALS (12 sets, daily range): BP systolic 103–303; BP diastolic 40–89; PULSE 61–108; RESP 14–18; TEMP 36.3–36.6; O2SAT 93–100; BMI 31.8; BMI 31.9; BMI 31.1
[2023-12-13] MEDS: levoFLOXacin IV 250 MG/50 ML BAG 50 MG IV (02:00)
--- NOTE | 2023-12-13 07:05 | ED.RN ---
see dowentime documentation
[2023-12-13 07:08] LABS: ALB/GLOB Ratio 0.8 RATIO (0.9-2.4); AST(SGOT) 9 U/L (15-37); Alanine Aminotransfer ALT/SGPT 21 U/L (16-61); Albumin, Serum 2.5 g/dL (3.2-5.0); Alkaline Phosphatase 100 U/L (45-117); Anion Gap 12 (5-15); BUN 143 mg/dL (7-18); BUN/Creat Ratio 18.9 RATIO (10-20); Calcium,Total 8.9 mg/dL (8.5-10.1); Chloride 100 mmol/L (98-107); Creatinine, Serum 7.56 mg/dL (0.70-1.30); EST Glomerular Filtration Rate 7 mL/min (>60); Est Glom Filt Rate - Afr Amer 8 mL/min (>60); Estimated Creatinine Clearance 9.44 ml/min; Globulin 3.1 g/dL (2.2-4.2); Glucose 128 mg/dL (74-106); Potassium 4.2 mmol/L (3.5-5.1); Protein, Total 5.6 g/dL (6.4-8.2); Sodium Level 138 mmol/L (136-145)
[2023-12-13 09:17] LABS: Anion Gap 12 (5-15); BUN 149 mg/dL (7-18); BUN/Creat Ratio 18.4 RATIO (10-20); Calcium,Total 9.1 mg/dL (8.5-10.1); Chloride 99 mmol/L (98-107); EST Glomerular Filtration Rate 7 mL/min (>60); Est Glom Filt Rate - Afr Amer 8 mL/min (>60); Estimated Creatinine Clearance 8.81 ml/min; Glucose 88 mg/dL (74-106); Potassium 4.3 mmol/L (3.5-5.1); Sodium Level 137 mmol/L (136-145)
[2023-12-13 09:29] LABS: Absolute Lymphocyte Count 0.57 X10^3/uL (0.83-4.51); Absolute Neutrophil Count 4.3 X10^3/uL (2.0-7.7); Basophil# 0.02 X10^3/uL; Basophil% 0.4 % (0-1); Eosinophil# 0.15 X10^3/uL; Eosinophils% 2.7 % (0-5); Hematocrit 27.7 % (40-54); Hemoglobin 8.6 g/dL (13.0-16.5); Lymphocyte # 0.57 X10^3/ul (0.83-4.51); Lymphocyte % 10.1 % (19-41); Mean Corpuscular Hgb 27.1 pg (27.0-32.0); Mean Corpuscular Volume 87.4 fL (80-94); Mean Platelet Vol. 11.1 fl (6.2-12.0); Monocyte# 0.61 X10^3/uL; Monocyte% 10.8 % (0-10); NRBC Flagged by Analyzer 0 % (0-5); Neutrophil # 4.29 X10^3/uL (2.7-7.7); Neutrophil % 75.6 % (47-70); POSITIVE DIFFERENTIAL YES; Platelet Count 164 K/mm3 (150-450); RBC Distribution Width CV 19.2 % (11.6-14.6); RBC Distribution Width SD 61.4 fl (35.1-43.9); Red Blood Count 3.17 M/mm3 (4.6-6.2); White Blood Count 5.7 K/mm3 (4.4-11.0)
[2023-12-13] MEDS: 0.9% Normal Saline 1,000 ML IV.SOLN. 1000 ML OPERA.SITE (09:50)
[2023-12-13] MEDS: PureFlow B 2K Dialysis Soln 1 BAG 6 BAG PF (09:53)
--- NOTE | 2023-12-13 10:48 | PCM.CONS.R ---
Assessment & Plan Assessment/Plan (1) History of end stage renal disease: PLAN: ESRD. On hemodialysis. Currently gets dialysis 4 times a week at the senior care. Has extreme anxiety, prior to this he was not in center dialysis, has been signing off dialysis early. Called and spoke to the staff at the senior care dialysis unit. Since coming over there, he has not had full treatment yet. There was 1 day where there was for failure and treatment was cut short most other treatments he has a chart. Not acutely symptomatic from dialysis. Gets fairly anxious in start saying I do not feel very well until he comes off. Today he says he has no problem with dialysis at the senior care. Did not tell me why he has been signing off early. HPI Consult Data Date of Consult: 12/13/23 HPI Narrative Reason for Consultation: ESRD HPI Narrative: RIA MARIANO, is a 78 M who presents to the hospital with altered mental status. Nephrology on consultation in view of ESRD. Currently on hemodialysis. Has not been finishing treatments and so sent to senior care with in-house dialysis. Given there, he has been not getting full treatments. Here with altered mental status. Currently he is alert, awake. Denies any complaints. Seen on dialysis today. [facility] Medical History Elevated troponin End-stage renal disease on hemodialysis Anemia Peripheral vascular disease Depression Diabetes Chronic pain Kidney disease Hypertension DVT (deep venous thrombosis) Noncompliance of patient with renal dialysis Thrombocytopenia Elevated troponin Anemia GI bleed Anemia requiring transfusions Chronic anticoagulation Anemia Dialysis patient Coronary artery disease History of GI bleed Loss of hearing Wears glasses Wears partial dentures Wears dentures Cancer Arthritis Low iron Former smoker Sleep apnea History of echocardiogram (~06/30/22) History of stress test (~05/03/22) Cardiology follow-up encounter (~04/04/23) Wide-complex tachycardia Duodenal ulcer Atrial fibrillation Hepatic cyst Iron deficiency anemia ESRD (end stage renal disease) on dialysis Aortic root dilatation Hyperparathyroidism CKD (chronic kidney disease) stage 5, GFR less than 15 ml/min HIT (heparin-induced thrombocytopenia) Bladder cancer HLD (hyperlipidemia) CHF (congestive heart failure) History of pulmonary embolism History of DVT (deep vein thrombosis) History of solitary pulmonary nodule Renal calculus Preop cardiovascular exam Essential hypertension Lymphoma VTE (venous thromboembolism) Lower gastrointestinal bleeding Left upper chest discomfort Home Medications ?Medication ?Instructions ?Recorded ?Last Taken ?Type budesonide 3 mg 6 mg PO DAILY stomach 06/16/23 Unknown History capsule,delayed,extended release vitamin B complex-vitamin C-folic 1 tab PO DAILY supplement 06/16/23 Unknown History acid 0.8 mg tablet (Bibiana-Leoncio) clopidogrel 75 mg tablet 75 mg PO DAILY antiplatelet #0 tabs 06/18/23 Unknown Rx midodrine 5 mg tablet 10 mg PO MOWEFR blood 07/28/23 Unknown History pressure-dialysis amiodarone 200 mg tablet 200 mg PO DAILY heart rate 08/31/23 Unknown History carvedilol 3.125 mg tablet 3.125 mg PO BID HIGH BLOOD PRESSURE 08/31/23 Unknown History pantoprazole 40 mg tablet,delayed 40 mg PO BID reflux 08/31/23 Unknown History release sucralfate 1 gram tablet 1 g PO 4X/DAY reflux 08/31/23 Unknown History acetaminophen 325 mg tablet 650 mg (2 x 325 mg) PO Q6H PRN PRN 09/18/23 Unknown Rx Pain 1-10 Or Fever>100.7 #0 tabs albuterol sulfate 2.5 mg/3 mL 2.5 mg (3 mL) inhalation Q4H PRN 09/18/23 Unknown Rx (0.083 %) solution for nebulization bronchospasm #0 mL menthol 0.44 %-zinc oxide 20.6 % 1 applic topical BID skin #0 grams 09/18/23 Unknown Rx topical ointment (Calmoseptine) atorvastatin 20 mg tablet (Lipitor) 20 mg PO QHS cholesterol 10/22/23 Unknown History bisacodyl 10 mg rectal suppository 10 mg OR DAILY PRN constipation 10/22/23 Unknown History magnesium hydroxide 400 mg/5 mL 30 ml PO DAILY PRN constipation 10/22/23 Unknown History oral suspension (Milk of Magnesia) mineral oil (Fleet Mineral Oil 118 ml OR DAILY PRN constipation 10/22/23 Unknown History enema) ondansetron 4 mg disintegrating 4 mg PO Q6H PRN nausea 10/22/23 Unknown History tablet sucroferric oxyhydroxide 500 mg 500 mg PO TID chronic kidney 10/22/23 Unknown History chewable tablet (Velphoro) disease aluminum-magnesium hydroxide 225 30 ml PO Q4H PRN PRN GI distress 12/12/23 Unknown History mg-200 mg/5 mL oral suspension calcitriol 0.25 mcg capsule 0.75 mcg PO QODAY 12/12/23 Unknown History calcium acetate 667 mg tablet 667 mg PO .ac 12/12/23 Unknown History vitamin B complex-vitamin C-folic 1 tab PO DAILY 12/12/23 Unknown History acid 0.8 mg tablet (Renal Vitamin) Allergy/AdvReac Type Severity Reaction Status Date / Time Iodinated Contrast Media Allergy Intermediate KIDNEY Verified 11/11/23 13:08 FAILURE enoxaparin (From Lovenox) Allergy Other Verified 11/11/23 13:08 heparin Allergy Other Verified 11/11/23 13:08 aspirin AdvReac Other Verified 11/11/23 13:08 Family History Father Cancer lung Arrhythmia Brother Cancer Mother Dementia Surgical History History of foot surgery S/P peripheral artery angioplasty with stent placement History of bladder surgery AV fistula History of corrected cleft lip and palate History of tonsillectomy History of cataract extraction H/O total cystectomy Social History household members: none Smoking Status: Former smoker how long ago did patient quit smoking: Started age 7, stopped at 17, started again 21-2 ppd until quit 2008 alcohol intake: never substance use type: does not use caffeine: No ROS ROS Narrative Negative except above Physical Exam Narrative no obvious distress no pallor no icterus no JVD s1s2 no murmurs lungs clear abdomen soft no organomegaly no edema no cyanosis Lab / Micro Data 12/13/23 08:47 12/13/23 08:47 Labs: Laboratory Results - last 24 hr 12/12/23 22:30: WBC 5.2, RBC 3.12 L, Hgb 8.6 L, Hct 27.2 L, MCV 87.2, MCH 27.6, MCHC 31.6 L, RDW Std Deviation 61.5 H, RDW Coeff of Lencho 19.5 H, Plt Count 155, MPV 10.9, Immature Gran % (Auto) 0.400, Neut % (Auto) 82.6 H, Lymph % (Auto) 7.6 L, [place] % (Auto) 8.2, Eos % (Auto) 1.0, Baso % (Auto) 0.2, Absolute Neuts (auto) 4.3, Absolute Lymphs (auto) 0.40 L, Nucleated RBC % 0, Differential Comment SEE COMMENT, Platelet Estimate ADEQUATE, RBC Morphology N CHROM, Anisocytosis RARE, Sodium Cancelled, Potassium Cancelled, Chloride Cancelled, Carbon Dioxide Cancelled, Anion Gap Cancelled, BUN Cancelled, Creatinine Cancelled, Estim Creat Clear Calc Cancelled, Est GFR (MDRD) Af Amer Cancelled, Est GFR (MDRD) Non-Af Cancelled, BUN/Creatinine Ratio Cancelled, Glucose Cancelled, Calcium Cancelled, Total Bilirubin Cancelled, AST Cancelled, ALT Cancelled, Alkaline Phosphatase Cancelled, Total Protein Cancelled, Albumin Cancelled, Globulin Cancelled, Albumin/Globulin Ratio Cancelled, Urine Color Yellow, Urine Clarity Turbid, Urine pH 8.0, Ur Specific [place] 1.010, Urine Protein 100 H, Urine Glucose (UA) Normal, Urine Ketones Negative, Urine Occult Blood 250 H, Urine Nitrite Negative, Urine Bilirubin 3 H, Urine Urobilinogen Normal, Ur Leukocyte Esterase 500 H, Urine RBC 10-25 SEEN, Urine WBC 10-25 SEEN, Ur Squamous Epith Cells 10-25 SEEN, Urine Bacteria 4+, Hyaline Casts 5-10 SEEN, Fine Granular Casts 0-5 SEEN, Urine Mucus 1+ 12/12/23 23:55: Sodium 138, Potassium 4.2, Chloride 100, Carbon Dioxide 26.0, Anion Gap 12, BUN 143 H*, Creatinine 7.56 H*, Estim Creat Clear Calc 9.44, Est GFR (MDRD) Af Amer 8 L, Est GFR (MDRD) Non-Af 7 L, BUN/Creatinine Ratio 18.9, Glucose 128 H, Calcium 8.9, Total Bilirubin 0.40, AST 9 L, ALT 21, Alkaline Phosphatase 100, Total Protein 5.6 L, Albumin 2.5 L, Globulin 3.1, Albumin/Globulin Ratio 0.8 L 12/13/23 08:47: WBC 5.7, RBC 3.17 L, Hgb 8.6 L, Hct 27.7 L, MCV 87.4, MCH 27.1, MCHC 31.0 L, RDW Std Deviation 61.4 H, RDW Coeff of [place] 19.2 H, Plt Count 164, MPV 11.1, Immature Gran % (Auto) 0.400, Neut % (Auto) 75.6 H, Lymph % (Auto) 10.1 L, [place] % (Auto) 10.8 H, Eos % (Auto) 2.7, Baso % (Auto) 0.4, Absolute Neuts (auto) 4.3, Absolute Lymphs (auto) 0.57 L, Nucleated RBC % 0, Sodium 137, Potassium 4.3, Chloride 99, Carbon Dioxide 26.0, Anion Gap 12, BUN 149 H*, Creatinine 8.10 H*, Estim Creat Clear Calc 8.81, Est GFR (MDRD) Af Amer 8 L, Est GFR (MDRD) Non-Af 7 L, BUN/Creatinine Ratio 18.4, Glucose 88, Calcium 9.1 Rhythm Strip Rhythm Strip: A-fib Rate: 75 Ectopy: None Imaging Radiology Impression Brain CT 12/12/23 22:02 IMPRESSION: Chronic involutional changes of the brain. Electronically Signed: Yaya Busby MD at 23:38 EDT , Chest X-Ray 12/12/23 22:45 IMPRESSION: Mild interstitial fibrosis or infiltrates. Electronically Signed: Yaya Busby MD at 23:41 EDT ,
--- NOTE | 2023-12-13 12:13 | CASEMGMT ---
Social Work Pt is here from [facility]. Pt has had some confusion since admission. SW called pt's son, Devon Rizvi. Devon confirms plan will be for pt to return to return to [facility] when ready. SNF list not needed at this time. SW will continue to follow for anticipated return to [facility] when pt is ready. Pt went to [facility] skilled from here on 11/15/23. OMER Dickson
--- NOTE | 2023-12-13 12:29 | CASEMGMT ---
Addendum entered by Na Gordon 12/13/23 14:50: Patient is currently being skilled at [facility]. Na oGrdon DC Planning Asst. Original Note: Discharge Planning Updates sent to [facility] via [employer]. Na Gordon DC Planning Asst.
[2023-12-13] MEDS: Acetaminophen 325 MG Tablet 650 MG PO (14:22)
[2023-12-13] MEDS: Amiodarone 200 MG Tablet PO (14:22)
[2023-12-13] MEDS: Folic Acid/Vitamin B Comp W-C 1 Capsule 1 CAP PO (14:22)
[2023-12-13] MEDS: Clopidogrel Bisulfate 75 MG Tablet PO (14:22)
[2023-12-13] MEDS: Pantoprazole Sodium 40 MG Tablet PO ×2 (14:23→20:28)
[2023-12-13] MEDS: Budesonide 3 MG CAPSULE.EC 6 MG PO (14:23)
[2023-12-13] MEDS: Carvedilol 3.125 MG TABLET PO ×2 (14:24→20:27)
[2023-12-13] MEDS: 0.9% Saline Lock 10 ML Syringe IV (14:29)
[2023-12-13] MEDS: Sucralfate 1 GM Tablet PO ×2 (15:57→20:27)
--- NOTE | 2023-12-13 16:47 | PCM.PN.HOSP ---
Reason for Visit Reason for Visit: Diagnoses Anemia, unspecified (12/13/23) Thrombocytopenia, unspecified (12/13/23) Disorientation, unspecified (12/13/23) Personal history of other venous thrombosis and embolism (12/13/23) Personal history of other diseases of urinary system (12/13/23) Subjective Subjective Patient initially seen before dialysis patient tired and was not feeling well, when seen an hour later while on dialysis patient slightly more awake and alert and did not remember conversation, still does not feel well overall Objective Data Objective Data Vital Signs: Vital Signs Temp Pulse Resp BP Pulse Ox O2 Del Method O2 Flow Rate 97.4 F L 80 18 119/40 L 100 Nasal Cannula 2 12/13/23 14:05 12/13/23 14:05 12/13/23 14:05 12/13/23 14:05 12/13/23 14:05 12/13/23 14:05 12/13/23 14:05 Oxygen Flow Rate (L/min) 2 Oxygen Delivery Method Nasal Cannula Weight: 95.3 kg Body Mass Index (BMI) 31.1 Intake & Output: Intake and Output for Last 24 Hours 12/11/23 12/12/23 12/13/23 23:59 23:59 23:59 Intake Total 50 / 50 Output Total 2600 / 2600 Balance -2550 / -2550 Lab / Micro Data 12/13/23 08:47 12/13/23 08:47 Labs: Laboratory Results - last 24 hr 12/12/23 22:30: WBC 5.2, RBC 3.12 L, Hgb 8.6 L, Hct 27.2 L, MCV 87.2, MCH 27.6, MCHC 31.6 L, RDW Std Deviation 61.5 H, RDW Coeff of Lencho 19.5 H, Plt Count 155, MPV 10.9, Immature Gran % (Auto) 0.400, Neut % (Auto) 82.6 H, Lymph % (Auto) 7.6 L, [place] % (Auto) 8.2, Eos % (Auto) 1.0, Baso % (Auto) 0.2, Absolute Neuts (auto) 4.3, Absolute Lymphs (auto) 0.40 L, Nucleated RBC % 0, Differential Comment SEE COMMENT, Platelet Estimate ADEQUATE, RBC Morphology N CHROM, Anisocytosis RARE, Sodium Cancelled, Potassium Cancelled, Chloride Cancelled, Carbon Dioxide Cancelled, Anion Gap Cancelled, BUN Cancelled, Creatinine Cancelled, Estim Creat Clear Calc Cancelled, Est GFR (MDRD) Af Amer Cancelled, Est GFR (MDRD) Non-Af Cancelled, BUN/Creatinine Ratio Cancelled, Glucose Cancelled, Calcium Cancelled, Total Bilirubin Cancelled, AST Cancelled, ALT Cancelled, Alkaline Phosphatase Cancelled, Total Protein Cancelled, Albumin Cancelled, Globulin Cancelled, Albumin/Globulin Ratio Cancelled, Urine Color Yellow, Urine Clarity Turbid, Urine pH 8.0, Ur Specific Carmen 1.010, Urine Protein 100 H, Urine Glucose (UA) Normal, Urine Ketones Negative, Urine Occult Blood 250 H, Urine Nitrite Negative, Urine Bilirubin 3 H, Urine Urobilinogen Normal, Ur Leukocyte Esterase 500 H, Urine RBC 10-25 SEEN, Urine WBC 10-25 SEEN, Ur Squamous Epith Cells 10-25 SEEN, Urine Bacteria 4+, Hyaline Casts 5-10 SEEN, Fine Granular Casts 0-5 SEEN, Urine Mucus 1+ 12/12/23 23:55: Sodium 138, Potassium 4.2, Chloride 100, Carbon Dioxide 26.0, Anion Gap 12, BUN 143 H*, Creatinine 7.56 H*, Estim Creat Clear Calc 9.44, Est GFR (MDRD) Af Amer 8 L, Est GFR (MDRD) Non-Af 7 L, BUN/Creatinine Ratio 18.9, Glucose 128 H, Calcium 8.9, Total Bilirubin 0.40, AST 9 L, ALT 21, Alkaline Phosphatase 100, Total Protein 5.6 L, Albumin 2.5 L, Globulin 3.1, Albumin/Globulin Ratio 0.8 L 12/13/23 08:47: WBC 5.7, RBC 3.17 L, Hgb 8.6 L, Hct 27.7 L, MCV 87.4, MCH 27.1, MCHC 31.0 L, RDW Std Deviation 61.4 H, RDW Coeff of Lencho 19.2 H, Plt Count 164, MPV 11.1, Immature Gran % (Auto) 0.400, Neut % (Auto) 75.6 H, Lymph % (Auto) 10.1 L, [place] % (Auto) 10.8 H, Eos % (Auto) 2.7, Baso % (Auto) 0.4, Absolute Neuts (auto) 4.3, Absolute Lymphs (auto) 0.57 L, Nucleated RBC % 0, Sodium 137, Potassium 4.3, Chloride 99, Carbon Dioxide 26.0, Anion Gap 12, BUN 149 H*, Creatinine 8.10 H*, Estim Creat Clear Calc 8.81, Est GFR (MDRD) Af Amer 8 L, Est GFR (MDRD) Non-Af 7 L, BUN/Creatinine Ratio 18.4, Glucose 88, Calcium 9.1 Radiography Diagnostic Testing: Radiology Impression Brain CT 12/12/23 22:02 IMPRESSION: Chronic involutional changes of the brain. Electronically Signed: Yaya Busby MD at 23:38 EDT , Chest X-Ray 12/12/23 22:45 IMPRESSION: Mild interstitial fibrosis or infiltrates. Electronically Signed: Yaya Busby MD at 23:41 EDT , Rhythm Strip Rhythm Strip: A-fib Rate: 75 Ectopy: None Physical Exam Narrative General: Tired, but responding to questions HEENT: Atraumatic, normocephalic Eyes: Anicteric, normal conjunctiva, extraocular movements grossly intact Neck: Supple Respiratory: Diminished bilaterally Cardiovascular: Regular rate GI: Soft Extremities: Slight lower extremity edema Musculoskeletal: Moving all extremities Neuro: No overt focal neurological deficits Skin: No rashes appreciated Psych: Overall cooperative Assessment & Plan Assessment/Plan (1) History of end stage renal disease: (2) History of deep vein thrombosis: (3) Anemia: (4) Thrombocytopenia: (5) Confusion: PLAN: Plan #Confusion/AMS -Possibly secondary to missing dialysis and being uremic and there is also concern for infiltrate on chest x-ray and was started on antibiotics for pneumonia -Patient started on hemodialysis and got a dose of Levaquin, given interaction with amiodarone and recent hospitalization will switch to Zosyn to start in 2 days as patient got dose of Levaquin today, did not think need vancomycin at this time -Reviewed UA and this does not seem to be a clean specimen so do not have high suspicion of UTI #ESRD on HD -Patient is stopped early several times, received HD today -Nephrology consulted -Reassess tomorrow -Daily weights, I's and O's #Lung infiltrate, possible pneumonia -Questionable symptoms with patient very poor historian and infiltrate seen on x-ray -Patient already started on antibiotics on admission, will continue -Will check respiratory panel and switch Levaquin to Zosyn to decrease QTc prolongation and affect and due to recent hospitalization -Sputum culture if able -Incentive spirometry #PAD -Continue Plavix #Hx VTE/PE/history of A-fib -Patient not on systemic anticoagulation -Continue amiodarone and Coreg #DVT ppx: SCDs Felicitas Galan MD Time spent in the patient's overall evaluation,decision-making process, review of diagnostic data, adjustment of management, discussion with other providers, nursing nursing and ancillary staff involved in patient's care documentation, 45 minutes Charges/Coding Visit Charges Inpatient E&M: 31810 Subs Hosp L2
[2023-12-13] MEDS: Calcium Acetate 667 MG Capsule PO (16:51)
[2023-12-13] MEDS: Menthol/Lanolin/Calamine/Znox 113 GM Tube 1 APPLIC TOPICAL (20:26)
[2023-12-13] MEDS: Atorvastatin Calcium 20 MG Tablet PO (20:28)
[2023-12-13] MEDS: guaiFENesin 1,200 MG Tablet 1200 MG PO (22:48)
[2023-12-14 04:00] VITALS: BP 146/79; PULSE 78; RESP 18; TEMP 36.6; O2SAT 98
[2023-12-14 05:42] VITALS: BMI 30.9
[2023-12-14] MEDS: Sucralfate 1 GM Tablet PO ×4 (05:56→21:01)
[2023-12-14] MEDS: 0.9% Saline Lock 10 ML Syringe IV (08:01)
[2023-12-14 08:05] LABS: Absolute Lymphocyte Count 0.54 X10^3/uL (0.83-4.51); Basophil# 0.02 X10^3/uL; Basophil% 0.3 % (0-1); Eosinophil# 0.13 X10^3/uL; Hematocrit 29.2 % (40-54); Hemoglobin 9.1 g/dL (13.0-16.5); Lymphocyte # 0.54 X10^3/ul (0.83-4.51); Lymphocyte % 8.5 % (19-41); Mean Corp Hgb Conc 31.2 g/dL (32-36); Mean Corpuscular Hgb 27.4 pg (27.0-32.0); Mean Platelet Vol. 10.2 fl (6.2-12.0); Monocyte# 0.69 X10^3/uL; Monocyte% 10.8 % (0-10); NRBC Flagged by Analyzer 0 % (0-5); Neutrophil # 4.98 X10^3/uL (2.7-7.7); Neutrophil % 78.1 % (47-70); POSITIVE DIFFERENTIAL YES; Platelet Count 153 K/mm3 (150-450); RBC Distribution Width CV 18.8 % (11.6-14.6); Red Blood Count 3.32 M/mm3 (4.6-6.2); White Blood Count 6.4 K/mm3 (4.4-11.0)
[2023-12-14 08:22] VITALS: O2SAT 92
[2023-12-14 08:24] VITALS: BP 126/63; PULSE 76; RESP 20; TEMP 36.6; O2SAT 95
[2023-12-14] MEDS: Amiodarone 200 MG Tablet PO (08:31)
[2023-12-14] MEDS: Budesonide 3 MG CAPSULE.EC 6 MG PO (08:31)
[2023-12-14] MEDS: Carvedilol 3.125 MG TABLET PO ×2 (08:32→21:02)
[2023-12-14] MEDS: Pantoprazole Sodium 40 MG Tablet PO ×2 (08:32→21:02)
[2023-12-14] MEDS: Menthol/Lanolin/Calamine/Znox 113 GM Tube 1 APPLIC TOPICAL ×2 (08:32→21:00)
[2023-12-14] MEDS: Clopidogrel Bisulfate 75 MG Tablet PO (08:32)
[2023-12-14] MEDS: guaiFENesin 1,200 MG Tablet 1200 MG PO ×2 (08:33→21:03)
[2023-12-14] MEDS: Folic Acid/Vitamin B Comp W-C 1 Capsule 1 CAP PO (08:33)
[2023-12-14] MEDS: Calcium Acetate 667 MG Capsule PO ×3 (08:33→16:58)
[2023-12-14] MEDS: Acetaminophen 325 MG Tablet 650 MG PO (08:37)
[2023-12-14 08:39] LABS: Anion Gap 9 (5-15); BUN 104 mg/dL (7-18); BUN/Creat Ratio 15.7 RATIO (10-20); Calcium,Total 9.4 mg/dL (8.5-10.1); Chloride 100 mmol/L (98-107); Creatinine, Serum 6.62 mg/dL (0.70-1.30); EST Glomerular Filtration Rate 9 mL/min (>60); Est Glom Filt Rate - Afr Amer 11 mL/min (>60); Estimated Creatinine Clearance 10.61 ml/min; Glucose 83 mg/dL (74-106); Potassium 4.1 mmol/L (3.5-5.1); Sodium Level 136 mmol/L (136-145)
--- NOTE | 2023-12-14 11:45 | CASEMGMT ---
Social Work SW met with pt to discuss advance directives.? Pt confirms he has completed a living will and health care POA naming his son Espinoza Rizvi.? Pt notified that documents are not on file at [facility] and SW requested they be brought in for scanning into the EMR.? KACI Rios
--- NOTE | 2023-12-14 13:56 | CASEMGMT ---
Discharge Planning Updates sent to [facility] via [email or web address]. Na Gordon DC Planning Asst.
[2023-12-14 13:58] VITALS: BP 111/60; PULSE 75; RESP 20; TEMP 36.4; O2SAT 96
--- NOTE | 2023-12-14 14:55 | PN.RENAL_ITS ---
Subjective Subjective alert awake Objective Data Objective Data Vital Signs: Vital Signs Temp Pulse Resp BP Pulse Ox O2 Del Method O2 Flow Rate 97.6 F L 75 20 H 111/60 96 Room Air 2 12/14/23 13:58 12/14/23 13:58 12/14/23 13:58 12/14/23 13:58 12/14/23 13:58 12/14/23 13:58 12/14/23 08:22 Oxygen Flow Rate (L/min) 2 Oxygen Delivery Method Room Air Weight: 94.6 kg Body Mass Index (BMI) 30.9 Intake & Output: Intake and Output for Last 24 Hours 12/12/23 12/13/23 12/14/23 23:59 23:59 23:59 Intake Total 50 / 50 Output Total 2600 / 2600 Balance -2550 / -2550 Lab / Micro Data 12/14/23 07:56 12/14/23 07:56 Labs: Laboratory Results - last 24 hr 12/14/23 07:56: WBC 6.4, RBC 3.32 L, Hgb 9.1 L, Hct 29.2 L, MCV 88.0, MCH 27.4, MCHC 31.2 L, RDW Std Deviation 61.0 H, RDW Coeff of Lencho 18.8 H, Plt Count 153, MPV 10.2, Immature Gran % (Auto) 0.300, Neut % (Auto) 78.1 H, Lymph % (Auto) 8.5 L, [place] % (Auto) 10.8 H, Eos % (Auto) 2.0, Baso % (Auto) 0.3, Absolute Neuts (auto) 5.0, Absolute Lymphs (auto) 0.54 L, Nucleated RBC % 0, Sodium 136, Potassium 4.1, Chloride 100, Carbon Dioxide 27.0, Anion Gap 9, BUN 104 H*, C reatinine 6.62 H, Estim Creat Clear Calc 10.61, Est GFR (MDRD) Af Amer 11 L, Est GFR (MDRD) Non-Af 9 L, BUN/Creatinine Ratio 15.7, Glucose 83, Calcium 9.4 Micro: Microbiology 12/13/23 17:46 Mucosa - Nasopharyngeal Respiratory Panel (PCR) - Final Rhythm Strip Rhythm Strip: A-fib Rate: 75 Ectopy: None Physical Exam Narrative no obvious distress no pallor no icterus no JVD s1s2 no murmurs lungs clear abdomen soft no organomegaly no edema no cyanosis Assessment & Plan Assessment/Plan (1) History of end stage renal disease: PLAN: ESRD. On hemodialysis. Currently gets dialysis 4 times a week at the [facility]. Has extreme anxiety, prior to this he was not in center dialysis, has been signing off dialysis early. Called and spoke to the staff at the [facility] dialysis unit. Since coming over there, he has not had full treatment yet. There was 1 day where there was for failure and treatment was cut short most other treatments he has a chart. Not acutely symptomatic from dialysis. Gets fairly anxious in start saying I do not feel very well until he comes off. he says he has no problem with dialysis at the [facility]. Did not tell me why he has been signing off early. no acute indications for HD today HD tomorrow ok to dc from my end dw hospitalist
--- NOTE | 2023-12-14 15:26 | PN.HOSP_ITS ---
Reason for Visit Reason for Visit: Diagnoses Anemia, unspecified (12/13/23) Thrombocytopenia, unspecified (12/13/23) Disorientation, unspecified (12/13/23) Personal history of other venous thrombosis and embolism (12/13/23) Personal history of other diseases of urinary system (12/13/23) Subjective Subjective Pt still feeling tired today and somewhat generally unwell though is oriented and better able to answer questions and yesterday Objective Data Objective Data Vital Signs: Vital Signs Temp Pulse Resp BP Pulse Ox O2 Del Method O2 Flow Rate 97.6 F L 75 20 H 111/60 96 Room Air 2 12/14/23 13:58 12/14/23 13:58 12/14/23 13:58 12/14/23 13:58 12/14/23 13:58 12/14/23 13:58 12/14/23 08:22 Oxygen Flow Rate (L/min) 2 Oxygen Delivery Method Room Air Weight: 94.6 kg Body Mass Index (BMI) 30.9 Intake & Output: Intake and Output for Last 24 Hours 12/12/23 12/13/23 12/14/23 23:59 23:59 23:59 Intake Total 50 / 50 Output Total 2600 / 2600 Balance -2550 / -2550 Lab / Micro Data 12/14/23 07:56 12/14/23 07:56 Labs: Laboratory Results - last 24 hr 12/14/23 07:56: WBC 6.4, RBC 3.32 L, Hgb 9.1 L, Hct 29.2 L, MCV 88.0, MCH 27.4, MCHC 31.2 L, RDW Std Deviation 61.0 H, RDW Coeff of Lencho 18.8 H, Plt Count 153, MPV 10.2, Immature Gran % (Auto) 0.300, Neut % (Auto) 78.1 H, Lymph % (Auto) 8.5 L, [place] % (Auto) 10.8 H, Eos % (Auto) 2.0, Baso % (Auto) 0.3, Absolute Neuts (auto) 5.0, Absolute Lymphs (auto) 0.54 L, Nucleated RBC % 0, Sodium 136, Potassium 4.1, Chloride 100, Carbon Dioxide 27.0, Anion Gap 9, BUN 104 H*, C reatinine 6.62 H, Estim Creat Clear Calc 10.61, Est GFR (MDRD) Af Amer 11 L, Est GFR (MDRD) Non-Af 9 L, BUN/Creatinine Ratio 15.7, Glucose 83, Calcium 9.4 Micro: Microbiology 12/13/23 17:46 Mucosa - Nasopharyngeal Respiratory Panel (PCR) - Final Rhythm Strip Rhythm Strip: A-fib Rate: 75 Ectopy: None Physical Exam Narrative General: Tired, but responding to questions appropriately and able to answer orientation questions HEENT: Atraumatic, normocephalic Eyes: Anicteric, normal conjunctiva, extraocular movements grossly intact Neck: Supple Respiratory: Diminished bilaterally Cardiovascular: Regular rate GI: Soft Extremities: Slight lower extremity edema Musculoskeletal: Moving all extremities Neuro: No overt focal neurological deficits Skin: No rashes appreciated Psych: Overall cooperative Assessment & Plan Assessment/Plan (1) History of end stage renal disease: (2) History of deep vein thrombosis: (3) Anemia: (4) Thrombocytopenia: (5) Confusion: PLAN: Plan #Confusion/AMS-improving -Possibly secondary to missing dialysis and being uremic and there is also concern for infiltrate on chest x-ray and was started on antibiotics for pneumonia -Patient started on hemodialysis and got a dose of Levaquin, given interaction with amiodarone and recent hospitalization will switch to Zosyn to start in 2 days as patient got dose of Levaquin today, did not think need vancomycin at this time -Reviewed UA and this does not seem to be a clean specimen so do not have high suspicion of UTI -12/13: Patient more alert and oriented today however is fairly tired and weak. Still significantly uremic, suspect he may be able to return to [facility] tomorrow after dialysis if he continues to improve. Discussed plan of care with patient and his son #ESRD on HD -Patient is stopped early several times, received HD today -Nephrology consulted -Reassess tomorrow -Daily weights, I's and O's -12/13: Dialysis tomorrow then may be able to return to [facility] #Lung infiltrate, possible pneumonia -Questionable symptoms with patient very poor historian and infiltrate seen on x-ray -Patient already started on antibiotics on admission, will continue -Will check respiratory panel and switch Levaquin to Zosyn to decrease QTc prolongation and affect and due to recent hospitalization -Sputum culture if able -Incentive spirometry -12/13: Antibiotics, renally dosed. Will continue at this time and monitor clinically, incentive spirometry #PAD -Continue Plavix #Hx VTE/PE/history of A-fib -Patient not on systemic anticoagulation -Continue amiodarone and Coreg -12/13: Vitally stable, continue present medications #DVT ppx: SCDs Felicitas Galan MD Time spent in the patient's overall evaluation,decision-making process, review of diagnostic data, adjustment of management, discussion with other providers, nursing nursing and ancillary staff involved in patient's care documentation, 36 minutes Charges/Coding Visit Charges Inpatient E&M: 43097 Subs Hosp L2
[2023-12-14 20:00] VITALS: BP 139/72; PULSE 71; RESP 16; TEMP 36.6; O2SAT 94
[2023-12-14] MEDS: Atorvastatin Calcium 20 MG Tablet PO (21:03)
[2023-12-15] VITALS (10 sets, daily range): BP systolic 92–261; BP diastolic 42–74; PULSE 70–86; RESP 16–20; TEMP 36.5–36.9; O2SAT 92–100; BMI 30.3
[2023-12-15] MEDS: Sucralfate 1 GM Tablet PO ×2 (06:12→12:47)
[2023-12-15] MEDS: 0.9% Normal Saline 1,000 ML IV.SOLN. 1000 ML OPERA.SITE (08:11)
[2023-12-15] MEDS: PureFlow B 2K Dialysis Soln 1 BAG 6 BAG PF (08:11)
[2023-12-15] MEDS: Midodrine HCl 5 MG Tablet 10 MG PO (08:36)
[2023-12-15 08:37] LABS: Absolute Lymphocyte Count 0.56 X10^3/uL (0.83-4.51); Basophil# 0.02 X10^3/uL; Basophil% 0.3 % (0-1); Eosinophil# 0.22 X10^3/uL; Eosinophils% 2.9 % (0-5); Hematocrit 29.3 % (40-54); Hemoglobin 9.2 g/dL (13.0-16.5); Lymphocyte # 0.56 X10^3/ul (0.83-4.51); Lymphocyte % 7.5 % (19-41); Mean Corp Hgb Conc 31.4 g/dL (32-36); Mean Corpuscular Hgb 27.4 pg (27.0-32.0); Mean Corpuscular Volume 87.2 fL (80-94); Mean Platelet Vol. 10.7 fl (6.2-12.0); Monocyte# 0.65 X10^3/uL; Monocyte% 8.7 % (0-10); NRBC Flagged by Analyzer 0 % (0-5); Neutrophil # 5.99 X10^3/uL (2.7-7.7); Neutrophil % 80.2 % (47-70); POSITIVE DIFFERENTIAL YES; Platelet Count 163 K/mm3 (150-450); RBC Distribution Width SD 60.8 fl (35.1-43.9); Red Blood Count 3.36 M/mm3 (4.6-6.2); White Blood Count 7.5 K/mm3 (4.4-11.0)
[2023-12-15] MEDS: Calcitriol 0.25 MCG Capsule 0.75 MCG PO (08:47)
[2023-12-15 09:11] LABS: Anion Gap 11 (5-15); BUN 102 mg/dL (7-18); Calcium,Total 9.3 mg/dL (8.5-10.1); Chloride 102 mmol/L (98-107); Creatinine, Serum 6.82 mg/dL (0.70-1.30); EST Glomerular Filtration Rate 8 mL/min (>60); Est Glom Filt Rate - Afr Amer 10 mL/min (>60); Estimated Creatinine Clearance 10.22 ml/min; Glucose 100 mg/dL (74-106); Potassium 4.1 mmol/L (3.5-5.1); Sodium Level 139 mmol/L (136-145)
[2023-12-15] MEDS: 0.9% Saline Lock 10 ML Syringe IV (12:28)
[2023-12-15] MEDS: Piperacil/Tazobactam 3.375 GM in 0.9% Normal Saline (50mL MB+) 50 ML IV (12:31)
[2023-12-15] MEDS: Budesonide 3 MG CAPSULE.EC 6 MG PO (12:45)
[2023-12-15] MEDS: Calcium Acetate 667 MG Capsule PO (12:45)
[2023-12-15] MEDS: Folic Acid/Vitamin B Comp W-C 1 Capsule 1 CAP PO (12:46)
[2023-12-15] MEDS: Menthol/Lanolin/Calamine/Znox 113 GM Tube 1 APPLIC TOPICAL (12:46)
[2023-12-15] MEDS: Pantoprazole Sodium 40 MG Tablet PO (12:47)
[2023-12-15] MEDS: Clopidogrel Bisulfate 75 MG Tablet PO (12:47)
[2023-12-15] MEDS: guaiFENesin 1,200 MG Tablet 1200 MG PO (12:48)
[2023-12-15] MEDS: Acetaminophen 325 MG Tablet 650 MG PO (13:16)
[2023-12-15] MEDS: Amiodarone 200 MG Tablet PO (13:16)
--- NOTE | 2023-12-15 13:23 | PCM.TXEXTCAR ---
Diet Diet Order/Speech Therapy: 12/13/23 13:20 Diet: Renal - General Type of Dietary Supplement:: Nepro Is pt able to select menu?: Yes Diet Comments: 120mL Nepro w/ breakfast and dinner trays, needs early tray d/t dialysis Routine Orders/Code Status Suppository Type: Dulcolax 10mg Suppository Frequency: Daily PRN Wound(s) Left Hip: Wound Type: Pressure Injury Lateral Foot: Wound Type: Open area Great toe, Second digit: Wound Type: Past amputation Right hand ST: Wound Type: Skin Tear Therapies Physical Therapy: Eval and Treat Occupational Therapy: Eval and Treat Problem/Diagnosis (1) History of end stage renal disease: Status: Acute Code(s): Z87.448 - Personal history of other diseases of urinary system (2) History of deep vein thrombosis: Status: Acute Code(s): Z86.718 - Personal history of other venous thrombosis and embolism (3) Anemia: Status: Acute Code(s): D64.9 - Anemia, unspecified (4) Thrombocytopenia: Status: Acute Code(s): D69.6 - Thrombocytopenia, unspecified (5) Confusion: Status: Acute Code(s): R41.0 - Disorientation, unspecified Plan #Confusion/AMS-2/2 uremia, resolved #ESRD on HD #Mild pneumonia #PAD #Hx VTE/PE/history of A-fib HOSPITAL COURSE: 78-year-old male history of end-stage renal disease on hemodialysis, history of PAD, A-fib, VTE/PE not on systemic anticoagulation who presented to [facility] ED 12/12/2023 with 2 days of worsening confusion. Patient had not been tolerating his full dialysis treatments and when he presented he was significantly uremic. He was worked up for other causes of confusion and did appear that he had a mild interstitial infiltrate on pulmonary imaging so he was given a dose of Levaquin that was renally adjusted however this was switched to Zosyn due to an interaction between Levaquin and amiodarone. Patient improved after dialysis and continued to improve and ultimately was stable for discharge. Patient does have some diminished breath sounds and was wearing oxygen 2 L intermittently for comfort however felt he was at his baseline and did not have any wheezes or rhonchi and denied any cough so is felt it was reasonable to discharge with an additional 5 days of Augmentin that will need to be renally dosed given his hemodialysis. On day of discharge he did have his Coreg held due to systolic blood pressure of 104 after dialysis but otherwise hospital course unremarkable. Discussed discharge back to [facility] and patient agreeable, patient discharged in stable condition Allergies/Procedures Done in Hospital Allergies Iodinated Contrast Media Allergy (Intermediate, Verified 11/11/23 13:08) KIDNEY FAILURE enoxaparin (From Lovenox) Allergy (Verified 11/11/23 13:08) Other HIT heparin Allergy (Verified 11/11/23 13:08) Other HIT aspirin Adverse Reaction (Verified 11/11/23 13:08) Other BLEEDING Type of Care/Length of Stay Estimated LOS: Convalescent Care Less Than 30 days Type of Care Needed: Skilled Rehab Potential: Fair Prognosis: Fair Additional Orders/Day of Discharge Day of Discharge: 12/15/23 Dietary and Speech Recommendations Dietitian Recommendations/Changes: Will change diet to renal, general; monitor need to restrict carbohydrates. Will add 120mL PO Nepro w/ breakfast and dinner tray. Additional ONS as needed if PO established suboptimal at meals. Discharge Plan Admission Admit Date/Time: 12/13/23 00:20 Primary Reason for Your Visit: Confusion after only partially completing dialysis Attending Provider: Felicitas Galan Primary Care Provider: Martin Nunez Consulting Providers: Arely Inman; Gen Chin Instructions Patient Instructions: ED Fall Prevention Additional Instructions / Restrictions: - You will be discharged on Augmentin twice daily that is suggested for your dialysis -Recommend holding your Coreg for systolic blood pressure less than 110 or less than 60 bpm unless otherwise instructed by your prescribing physician Discharge Orders/Prescriptions Prescriptions: New amoxicillin-pot clavulanate 250-125 mg tablet 1 tab PO BID 5 Days Qty: 10 0RF Rx Instructions: Needs HD dosing Continued budesonide 3 mg capsule,delayed,extend.release 6 mg PO DAILY Bibiana-Leoncio 0.8 mg tablet 1 tab PO DAILY clopidogrel 75 mg Tablet 75 mg PO DAILY Qty: 0 0RF midodrine 5 mg tablet 10 mg PO MOWEFR Patient Comments: takes it if sbp is less than 120 Rx Instructions: GIVE PRIOR TO DIALYSIS carvedilol 3.125 mg tablet 3.125 mg PO BID amiodarone 200 mg tablet 200 mg PO DAILY sucralfate 1 gram Tablet 1 g PO 4X/DAY Rx Instructions: GIVE 1 TABLET BY MOUTH BEFORE MEAL AND AT BEDTIME pantoprazole 40 mg Tablet,Delayed Release (Dr/Ec) 40 mg PO BID aluminum-magnesium hydroxide 225-200 mg/5 mL suspension 30 ml PO Q4H PRN PRN (Reason: GI distress) calcitriol 0.25 mcg capsule 0.75 mcg PO QODAY Rx Instructions: every tuesday, tue, tue before dialysis calcium acetate 667 mg tablet 667 mg PO .ac Rx Instructions: with meals Renal Vitamin 0.8 mg tablet 1 tab PO DAILY acetaminophen 325 mg Tablet 650 mg PO Q6H PRN PRN (Reason: Pain 1-10 Or Fever>100.7) Qty: 0 0RF albuterol sulfate 2.5 mg /3 mL (0.083 %) Solution For Nebulization 2.5 mg inhalation Q4H PRN (Reason: bronchospasm) Qty: 0 0RF menthol-zinc oxide [Calmoseptine] 0.44-20.6 % Ointment 1 applic topical BID Qty: 0 0RF Protocol: *Topical Application Instructions APPLICATION INSTRUCTIONS: apply to affected areas bisacodyl 10 mg suppository 10 mg OH DAILY PRN (Reason: constipation) mineral oil [Fleet Mineral Oil] Enema 118 ml OH DAILY PRN (Reason: constipation) Rx Instructions: discard any unused portion atorvastatin [Lipitor] 20 mg tablet 20 mg PO QHS magnesium hydroxide [Milk of Magnesia] 400 mg/5 mL suspension 30 ml PO DAILY PRN (Reason: constipation) ondansetron 4 mg tablet,disintegrating 4 mg PO Q6H PRN (Reason: nausea ) Velphoro 500 mg tablet,chewable 500 mg PO TID Referrals / Follow Up: Martin Nunez DO [Primary Care Provider] - Disposition Disposition (needs filled in before D/C Order can be placed): [facility] Facility
--- NOTE | 2023-12-15 13:38 | DS.PCM_ITS ---
Providers Date of Admission: 12/13/23 Date of Discharge: 12/15/23 Primary Care Physician: Dr. Martin Nunez, Consultations 12/13/23 01:48 Consult: Nephrology Routine Consulting Provider: Arely Inman Reason for Consult: esrd dialysis EMERGENT Consult: Yes MD Notified: Yes Date Notified: 12/13/23 Time Notified: 00:37 Method of Notification: Text Reason For Visit: CONFUSION Diagnosis Discharge Diagnosis (1) History of end stage renal disease: Status: Acute Code(s): Z87.448 - Personal history of other diseases of urinary system (2) History of deep vein thrombosis: Status: Acute Code(s): Z86.718 - Personal history of other venous thrombosis and embolism (3) Anemia: Status: Acute Code(s): D64.9 - Anemia, unspecified (4) Thrombocytopenia: Status: Acute Code(s): D69.6 - Thrombocytopenia, unspecified (5) Confusion: Status: Acute Code(s): R41.0 - Disorientation, unspecified Plan #Confusion/AMS-2/2 uremia, resolved #ESRD on HD #Mild pneumonia #PAD #Hx VTE/PE/history of A-fib Medications at Discharge Home Medications budesonide 3 mg capsule,delayed,extended release 6 mg PO DAILY stomach 06/16/23 vitamin B complex-vitamin C-folic acid 0.8 mg tablet (Bibiana-Leoncio) 1 tab PO DAILY supplement 06/16/23 clopidogrel 75 mg tablet 75 mg PO DAILY antiplatelet #0 tabs 06/18/23 midodrine 5 mg tablet 10 mg PO MOWEFR blood pressure-dialysis 07/28/23 amiodarone 200 mg tablet 200 mg PO DAILY heart rate 08/31/23 carvedilol 3.125 mg tablet 3.125 mg PO BID HIGH BLOOD PRESSURE 08/31/23 pantoprazole 40 mg tablet,delayed release 40 mg PO BID reflux 08/31/23 sucralfate 1 gram tablet 1 g PO 4X/DAY reflux 08/31/23 acetaminophen 325 mg tablet 650 mg (2 x 325 mg) PO Q6H PRN PRN Pain 1-10 Or Fever>100.7 #0 tabs 09/18/23 albuterol sulfate 2.5 mg/3 mL (0.083 %) solution for nebulization 2.5 mg (3 mL) inhalation Q4H PRN bronchospasm #0 mL 09/18/23 menthol 0.44 %-zinc oxide 20.6 % topical ointment (Calmoseptine) 1 applic topical BID skin #0 grams 09/18/23 atorvastatin 20 mg tablet (Lipitor) 20 mg PO QHS cholesterol 10/22/23 bisacodyl 10 mg rectal suppository 10 mg NC DAILY PRN constipation 10/22/23 magnesium hydroxide 400 mg/5 mL oral suspension (Milk of Magnesia) 30 ml PO DAILY PRN constipation 10/22/23 mineral oil (Fleet Mineral Oil enema) 118 ml NC DAILY PRN constipation 10/22/23 ondansetron 4 mg disintegrating tablet 4 mg PO Q6H PRN nausea 10/22/23 sucroferric oxyhydroxide 500 mg chewable tablet (Velphoro) 500 mg PO TID chronic kidney disease 10/22/23 aluminum-magnesium hydroxide 225 mg-200 mg/5 mL oral suspension 30 ml PO Q4H PRN PRN GI distress 12/12/23 calcitriol 0.25 mcg capsule 0.75 mcg PO QODAY 12/12/23 calcium acetate 667 mg tablet 667 mg PO .ac 12/12/23 vitamin B complex-vitamin C-folic acid 0.8 mg tablet (Renal Vitamin) 1 tab PO DAILY 12/12/23 amoxicillin 250 mg-potassium clavulanate 125 mg tablet 1 tab PO BID 5 days #10 tabs 12/15/23 Hospital Course Procedures - (HD) Summary of Care Provided Minutes Spent on Discharge: 33 Hospital Course: HOSPITAL COURSE: 78-year-old male history of end-stage renal disease on hemodialysis, history of PAD, A-fib, VTE/PE not on systemic anticoagulation who presented to [facility] ED 12/12/2023 with 2 days of worsening confusion. Patient had not been tolerating his full dialysis treatments and when he presented he was significantly uremic. He was worked up for other causes of confusion and did appear that he had a mild interstitial infiltrate on pulmonary imaging so he was given a dose of Levaquin that was renally adjusted however this was switched to Zosyn due to an interaction between Levaquin and amiodarone. Patient improved after dialysis and continued to improve and ultimately was stable for discharge. Patient does have some diminished breath sounds and was wearing oxygen 2 L intermittently for comfort however felt he was at his baseline and did not have any wheezes or rhonchi and denied any cough so is felt it was reasonable to discharge with an additional 5 days of Augmentin that will need to be renally dosed given his hemodialysis. On day of discharge he did have his Coreg held due to systolic blood pressure of 104 after dialysis but otherwise hospital course unremarkable. Discussed discharge back to [facility] and patient agreeable, patient discharged in stable condition Physical Exam Narrative General: More alert today, no acute distress HEENT: Atraumatic, normocephalic Eyes: Anicteric, normal conjunctiva, extraocular movements grossly intact Neck: Supple Respiratory: Somewhat diminished bilaterally, unchanged from previous, no wheezes appreciated Cardiovascular: Regular rate GI: Soft Extremities: No lower extremity edema Musculoskeletal: Moving all extremities Neuro: No overt focal neurological deficits Skin: No rashes appreciated Psych: Overall cooperative Weight / BMI Weight Weight: 93 kg Body Mass Index (BMI) 30.3 ABG / Lab / Microbiology Data 12/15/23 08:30 12/15/23 08:30 Laboratory: Laboratory Results - last 24 hr 12/15/23 08:30: WBC 7.5, RBC 3.36 L, Hgb 9.2 L, Hct 29.3 L, MCV 87.2, MCH 27.4, MCHC 31.4 L, RDW Std Deviation 60.8 H, RDW Coeff of Lencho 19.0 H, Plt Count 163, MPV 10.7, Immature Gran % (Auto) 0.400, Neut % (Auto) 80.2 H, Lymph % (Auto) 7.5 L, [place] % (Auto) 8.7, Eos % (Auto) 2.9, Baso % (Auto) 0.3, Absolute Neuts (auto) 6.0, Absolute Lymphs (auto) 0.56 L, Nucleated RBC % 0, Sodium 139, Potassium 4.1, Chloride 102, Carbon Dioxide 26.0, Anion Gap 11, BUN 102 H*, Creatinine 6.82 H, Estim Creat Clear Calc 10.22, Est GFR (MDRD) Af Amer 10 L, Est GFR (MDRD) Non-Af 8 L, BUN/Creatinine Ratio 15.0, Glucose 100, Calcium 9.3 Microbiology: Microbiology 12/13/23 17:46 Mucosa - Nasopharyngeal Respiratory Panel (PCR) - Final D/C Instructions Discharge Diet: Renal Diet Meaningful Use Info Meaningful Use Meaningful Use Diagnoses (Choose all that apply): None applicable Ischemic Stroke Statin Dosing Therapy Reference: STATIN DOSE THERAPY REFERENCE: * Patients > 75 years receive moderate or high dose statin therapy. * Patients 75 years or YOUNGER should receive HIGH intensity statin dose unless contraindicated. You will be required to document reason for non-treatment if statin daily dose does not meet guidelines. HIGH DOSE STATIN THERAPY DAILY Atorvastatin > than or = to 40 mg Rosuvastatin > than or = to 20 mg Amlodipine + Atorvastatin > than or = to 2.5/40 mg Ezetimibe + Simvastatin 10/80 mg Simvastatin 80mg Discharge Plan Admission Admit Date/Time: 12/13/23 00:20 Primary Reason for Your Visit: Confusion after only partially completing dialysis Attending Provider: Felicitas Galan Primary Care Provider: Martin Nunez Consulting Providers: Arely Inman; Gen Chin Instructions Patient Instructions: ED Fall Prevention Additional Instructions / Restrictions: - You will be discharged on Augmentin twice daily that is suggested for your dialysis -Recommend holding your Coreg for systolic blood pressure less than 110 or less than 60 bpm unless otherwise instructed by your prescribing physician Discharge Orders/Prescriptions Prescriptions: New amoxicillin-pot clavulanate 250-125 mg tablet 1 tab PO BID 5 Days Qty: 10 0RF Rx Instructions: Needs HD dosing Continued budesonide 3 mg capsule,delayed,extend.release 6 mg PO DAILY Bibiana-Leoncio 0.8 mg tablet 1 tab PO DAILY clopidogrel 75 mg Tablet 75 mg PO DAILY Qty: 0 0RF midodrine 5 mg tablet 10 mg PO MOWEFR Patient Comments: takes it if sbp is less than 120 Rx Instructions: GIVE PRIOR TO DIALYSIS carvedilol 3.125 mg tablet 3.125 mg PO BID amiodarone 200 mg tablet 200 mg PO DAILY sucralfate 1 gram Tablet 1 g PO 4X/DAY Rx Instructions: GIVE 1 TABLET BY MOUTH BEFORE MEAL AND AT BEDTIME pantoprazole 40 mg Tablet,Delayed Release (Dr/Ec) 40 mg PO BID aluminum-magnesium hydroxide 225-200 mg/5 mL suspension 30 ml PO Q4H PRN PRN (Reason: GI distress) calcitriol 0.25 mcg capsule 0.75 mcg PO QODAY Rx Instructions: every tuesday, tue, tue before dialysis calcium acetate 667 mg tablet 667 mg PO .ac Rx Instructions: with meals Renal Vitamin 0.8 mg tablet 1 tab PO DAILY acetaminophen 325 mg Tablet 650 mg PO Q6H PRN PRN (Reason: Pain 1-10 Or Fever>100.7) Qty: 0 0RF albuterol sulfate 2.5 mg /3 mL (0.083 %) Solution For Nebulization 2.5 mg inhalation Q4H PRN (Reason: bronchospasm) Qty: 0 0RF menthol-zinc oxide [Calmoseptine] 0.44-20.6 % Ointment 1 applic topical BID Qty: 0 0RF Protocol: *Topical Application Instructions APPLICATION INSTRUCTIONS: apply to affected areas bisacodyl 10 mg suppository 10 mg NC DAILY PRN (Reason: constipation) mineral oil [Fleet Mineral Oil] Enema 118 ml NC DAILY PRN (Reason: constipation) Rx Instructions: discard any unused portion atorvastatin [Lipitor] 20 mg tablet 20 mg PO QHS magnesium hydroxide [Milk of Magnesia] 400 mg/5 mL suspension 30 ml PO DAILY PRN (Reason: constipation) ondansetron 4 mg tablet,disintegrating 4 mg PO Q6H PRN (Reason: nausea ) Velphoro 500 mg tablet,chewable 500 mg PO TID Referrals / Follow Up: Martin Nunez, [Primary Care Provider] - Disposition Disposition (needs filled in before D/C Order can be placed): [facility] Facility Charges/Coding Visit Charges Inpatient E&M: 53365 Disch Hosp >30min
--- NOTE | 2023-12-15 14:26 | CASEMGMT ---
Social Work Per physician pt is ready for discharge back to [facility] today. DC media center assistant updated and to complete discharge. Disposition: [facility], skilled level of care KACI Rios
--- NOTE | 2023-12-15 15:10 | CASEMGMT ---
Discharge Planning Discharge orders, signed med list, and transport time sent to [facility] via [facility]. Physicians will transport patient by wheelchair at 5p. Nursing, SW, and patient updated. left for patients aprli (Paul). Na Gordon DC Planning Asst.
--- NOTE | 2023-12-15 15:32 | NURSING ---
Talked with Alan in pharmacy and ok for pt to have heparin-to lock his port
[2023-12-15] MEDS: 0.9 % NaCl (Sterile) Posiflush 10 mL IV (16:45)
--- NOTE | 2023-12-15 19:38 | NURSING ---
called care home x 2 and no answer and unable to leave message
--- NOTE | 2023-12-15 21:54 | PCM.PN.REN ---
Subjective Subjective no new complaints Objective Data Objective Data Vital Signs: Vital Signs Temp Pulse Resp BP Pulse Ox O2 Del Method O2 Flow Rate 97.7 F L 71 18 106/48 L 92 Room Air 3 12/15/23 15:16 12/15/23 15:16 12/15/23 15:16 12/15/23 15:16 12/15/23 15:16 12/15/23 15:16 12/15/23 12:39 Oxygen Flow Rate (L/min) 3 Oxygen Delivery Method Room Air Weight: 93 kg Body Mass Index (BMI) 30.3 Intake & Output: Intake and Output for Last 24 Hours 12/13/23 12/14/23 12/15/23 23:59 23:59 23:59 Intake Total 50 / 50 450 / 450 Output Total 2600 / 2600 2260 / 2260 Balance -2550 / -2550 -1810 / -1810 Lab / Micro Data 12/15/23 08:30 12/15/23 08:30 Labs: Laboratory Results - last 24 hr 12/15/23 08:30: WBC 7.5, RBC 3.36 L, Hgb 9.2 L, Hct 29.3 L, MCV 87.2, MCH 27.4, MCHC 31.4 L, RDW Std Deviation 60.8 H, RDW Coeff of Lencho 19.0 H, Plt Count 163, MPV 10.7, Immature Gran % (Auto) 0.400, Neut % (Auto) 80.2 H, Lymph % (Auto) 7.5 L, [place] % (Auto) 8.7, Eos % (Auto) 2.9, Baso % (Auto) 0.3, Absolute Neuts (auto) 6.0, Absolute Lymphs (auto) 0.56 L, Nucleated RBC % 0, Sodium 139, Potassium 4.1, Chloride 102, Carbon Dioxide 26.0, Anion Gap 11, BUN 102 H*, Creatinine 6.82 H, Estim Creat Clear Calc 10.22, Est GFR (MDRD) Af Amer 10 L, Est GFR (MDRD) Non-Af 8 L, BUN/Creatinine Ratio 15.0, Glucose 100, Calcium 9.3 Micro: Microbiology 12/13/23 17:46 Mucosa - Nasopharyngeal Respiratory Panel (PCR) - Final Rhythm Strip Rhythm Strip: A-fib Rate: 75 Ectopy: None Physical Exam Narrative no obvious distress no pallor no icterus no JVD s1s2 no murmurs lungs clear abdomen soft no organomegaly no edema no cyanosis Assessment & Plan Assessment/Plan (1) History of end stage renal disease: PLAN: ESRD. On hemodialysis. Currently gets dialysis 4 times a week at the senior care. Has extreme anxiety, prior to this he was not in center dialysis, has been signing off dialysis early. Called and spoke to the staff at the senior care dialysis unit. Since coming over there, he has not had full treatment yet. There was 1 day where there was for failure and treatment was cut short most other treatments he has a chart. Not acutely symptomatic from dialysis. Gets fairly anxious in start saying I do not feel very well until he comes off. he says he has no problem with dialysis at the senior care. Did not tell me why he has been signing off early. HD today. see orders ok to dc from my end
== END 2023-12-15 17:06 | disposition skilled nursing facility (03) | DRG 291 ==
LOC: ED 22:18 → MS3 12-13 07:08
PROVIDERS: Admitting Provider Family Medicine; Emergency Provider Emergency Medicine; PCP Student in an Organized Health Care Education/Training Program; Visit Provider Internal Medicine
DX: I13.2 Hypertensive heart and chronic kidney disease with heart failure and with stage 5 chronic kidney disease, or end stage renal disease (principal); N18.6 End stage renal disease; G93.41 Metabolic encephalopathy; J18.9 Pneumonia, unspecified organism; D69.6 Thrombocytopenia, unspecified; E11.22 Type 2 diabetes mellitus with diabetic chronic kidney disease; I50.9 Heart failure, unspecified; E11.51 Type 2 diabetes mellitus with diabetic peripheral angiopathy without gangrene; I48.91 Unspecified atrial fibrillation; D64.9 Anemia, unspecified; E78.5 Hyperlipidemia, unspecified; I25.10 Atherosclerotic heart disease of native coronary artery without angina pectoris; Z99.2 Dependence on renal dialysis; Z91.158 Patient's noncompliance with renal dialysis for other reason; Z79.02 Long term (current) use of antithrombotics/antiplatelets; Z79.899 Other long term (current) drug therapy; Z87.891 Personal history of nicotine dependence; Z86.718 Personal history of other venous thrombosis and embolism; Z86.711 Personal history of pulmonary embolism
CPT/HCPCS: 70450; 71045; 80048; 80053; 81001; 85025; 87633; 90937; 93005; 94668; 97163; 99252; 99283; J7030; P9612; A4216; G0257; G0463

== ENCOUNTER 2023-12-29 14:37 | Emergency (ER) | payer MEDICARE, BC, SELFPAY ==
[2023-12-29] VITALS (8 sets, daily range): BP systolic 99–123; BP diastolic 53–73; PULSE 76–92; RESP 18–28; TEMP 36.1–36.3; O2SAT 93–98; BMI 31.7
--- NOTE | 2023-12-29 14:49 | ED.RN ---
rt arm elevated and ice pack applied. pa in at bedside to see.
--- NOTE | 2023-12-29 14:51 | EDS_ITS ---
HPI <AJAY Walters - Last Filed: 12/29/23 18:39> History of Present Illness Chief Complaint: Upper Extremity Injury Narrative Narrative: 78-year-old male went to dialysis this morning at 8 AM and about detention through the 3-hour session it started to infiltrate the fistula on his right arm. He has pain over the fistula site and started to have numbness in the hand and was sent here for evaluation. Now he states there is no numbness or tingling. There is no bleeding. He is left-hand dominant. He gets dialysis done on Tuesday and Tuesday at [facility]. [facility] <AJAY Walters - Last Filed: 12/29/23 18:39> [facility] Medical History Elevated troponin End-stage renal disease on hemodialysis Anemia Peripheral vascular disease Depression Diabetes Chronic pain Kidney disease Hypertension DVT (deep venous thrombosis) Noncompliance of patient with renal dialysis Thrombocytopenia Elevated troponin Anemia GI bleed Anemia requiring transfusions Chronic anticoagulation Anemia Dialysis patient Coronary artery disease History of GI bleed Loss of hearing Wears glasses Wears partial dentures Wears dentures Cancer Arthritis Low iron Former smoker Sleep apnea History of echocardiogram (~06/30/22) History of stress test (~05/03/22) Cardiology follow-up encounter (~04/04/23) Wide-complex tachycardia Duodenal ulcer Atrial fibrillation Hepatic cyst Iron deficiency anemia ESRD (end stage renal disease) on dialysis Aortic root dilatation Hyperparathyroidism CKD (chronic kidney disease) stage 5, GFR less than 15 ml/min HIT (heparin-induced thrombocytopenia) Bladder cancer HLD (hyperlipidemia) CHF (congestive heart failure) History of pulmonary embolism History of DVT (deep vein thrombosis) History of solitary pulmonary nodule Renal calculus Preop cardiovascular exam Essential hypertension Lymphoma VTE (venous thromboembolism) Lower gastrointestinal bleeding Left upper chest discomfort Home Medications ?Medication ?Instructions ?Recorded ?Last Taken ?Type budesonide 3 mg 6 mg PO DAILY stomach 06/16/23 Unknown History capsule,delayed,extended release vitamin B complex-vitamin C-folic 1 tab PO DAILY supplement 06/16/23 Unknown History acid 0.8 mg tablet (Bibiana-Leoncio) clopidogrel 75 mg tablet 75 mg PO DAILY antiplatelet #0 tabs 06/18/23 Unknown Rx midodrine 5 mg tablet 10 mg PO MOWEFR blood 07/28/23 Unknown History pressure-dialysis amiodarone 200 mg tablet 200 mg PO DAILY heart rate 08/31/23 Unknown History carvedilol 3.125 mg tablet 3.125 mg PO BID HIGH BLOOD PRESSURE 08/31/23 Unknown History pantoprazole 40 mg tablet,delayed 40 mg PO BID reflux 08/31/23 Unknown History release sucralfate 1 gram tablet 1 g PO 4X/DAY reflux 08/31/23 Unknown History acetaminophen 325 mg tablet 650 mg (2 x 325 mg) PO Q6H PRN PRN 09/18/23 Unknown Rx Pain 1-10 Or Fever>100.7 #0 tabs albuterol sulfate 2.5 mg/3 mL 2.5 mg (3 mL) inhalation Q4H PRN 09/18/23 Unknown Rx (0.083 %) solution for nebulization bronchospasm #0 mL menthol 0.44 %-zinc oxide 20.6 % 1 applic topical BID skin #0 grams 09/18/23 Unknown Rx topical ointment (Calmoseptine) atorvastatin 20 mg tablet (Lipitor) 20 mg PO QHS cholesterol 10/22/23 Unknown History bisacodyl 10 mg rectal suppository 10 mg ME DAILY PRN constipation 10/22/23 Unknown History magnesium hydroxide 400 mg/5 mL 30 ml PO DAILY PRN constipation 10/22/23 Unknown History oral suspension (Milk of Magnesia) mineral oil (Fleet Mineral Oil 118 ml ME DAILY PRN constipation 10/22/23 Unknown History enema) ondansetron 4 mg disintegrating 4 mg PO Q6H PRN nausea 10/22/23 Unknown History tablet sucroferric oxyhydroxide 500 mg 500 mg PO TID chronic kidney 10/22/23 Unknown History chewable tablet (Velphoro) disease aluminum-magnesium hydroxide 225 30 ml PO Q4H PRN PRN GI distress 12/12/23 Unknown History mg-200 mg/5 mL oral suspension calcitriol 0.25 mcg capsule 0.75 mcg PO QODAY 12/12/23 Unknown History calcium acetate 667 mg tablet 667 mg PO .ac 12/12/23 Unknown History vitamin B complex-vitamin C-folic 1 tab PO DAILY 12/12/23 Unknown History acid 0.8 mg tablet (Renal Vitamin) amoxicillin 250 mg-potassium 1 tab PO BID 5 days #10 tabs 12/15/23 Unknown Rx clavulanate 125 mg tablet Allergy/AdvReac Type Severity Reaction Status Date / Time Iodinated Contrast Media Allergy Intermediate KIDNEY Verified 11/11/23 13:08 FAILURE enoxaparin (From Lovenox) Allergy Other Verified 11/11/23 13:08 heparin Allergy Other Verified 11/11/23 13:08 aspirin AdvReac Other Verified 11/11/23 13:08 Family History Father Cancer lung Arrhythmia Brother Cancer Mother Dementia Surgical History History of foot surgery S/P peripheral artery angioplasty with stent placement History of bladder surgery AV fistula History of corrected cleft lip and palate History of tonsillectomy History of cataract extraction H/O total cystectomy Social History household members: none Smoking Status: Former smoker how long ago did patient quit smoking: Started age 7, stopped at 17, started again 22-2 ppd until quit 2008 alcohol intake: never substance use type: does not use caffeine: No ROS <AJAY Walters - Last Filed: 12/29/23 18:39> ROS ED ROS Narrative Constitutional: Negative for fever, chills, malaise. Neuro: Negative for motor/sensory dysfunction. EXAM <AJAY Walters - Last Filed: 12/29/23 18:39> Physical Exam Narrative Exam Narrative: CONST: Patient sitting in no acute distress. EYES: Normal inspection. NECK: Normal inspection. RESP: No respiratory distress, CTAB. CVS: Regular rate and rhythm, no murmur, no gallop. EXTREMITIES: Right upper arm fistula has soft tissue swelling/infiltration. The rest of the arm appears normal other than chronic bruising, 2+ radial pulse, full range of motion of the wrist hand and digits, normal assurance services manager health care strength and sensation in all dermatomes. NEURO: Alert and answering questions appropriately. PSYCH: Normal affect. Const Vital Signs: 12/29/23 14:24 12/29/23 14:24 Temperature 97.0 F L 97.0 F L Temperature Source Temporal Temporal Pulse Rate 84 76 Respiratory Rate 18 24 H Blood Pressure 99/59 L 99/59 L Blood Pressure Mean 72 72 Pulse Ox 95 96 Oxygen Delivery Method Nasal Cannula Nasal Cannula Oxygen Flow Rate (L/min) 2 2 [facility] <AJAY Walters - Last Filed: 12/29/23 18:39> [facility] Narrative Medical decision making narrative: History gathered from: Patient, EMS Consults: Vascular surgery Patient's right upper extremity fistula infiltrated during dialysis this morning. The area has soft tissue swelling and tenderness. There is no sign of infection and extremity distally is neurovascularly intact. His fistula was placed by Dr. Miramontes a year ago and I spoke with the vascular PA who advised getting an AV fistula duplex which showed it is functional and there is no hematoma. The vascular PA stopped by and examined his fistula and recommends continued ice, elevation, and to next perform dialysis on Saturday 12/30 instead of tomorrow. She also recommended holding Plavix until that date so he does not develop a hematoma. If it is not functional at that time he should return to the emergency room and may need a temporary dialysis catheter. Patient's electrolytes were checked since he only completed part of his session today and potassium is normal at 4.5. His BUN and creatinine are at baseline. He is safe for discharge back to [facility] and they were informed of all these changes. <Stephen Meneses MD - Last Filed: 12/29/23 19:45> [facility] Treatment and Re-Evaluation Narrative: Dr. Meneses: I have personally performed a face to face assessment of the patient and have reviewed the LILIAM Note. I performed a substantive portion of the visit including all aspects of the following. My cuellar findings include: History is right upper extremity fistula infiltration detention through dialysis. Patient usually receives dialysis up to 4 times a week. Exam is afebrile. Vital signs noted. Mild swelling and tenderness right upper extremity fistula. Positive thrill of fistula. Medical Decision Making: Discussed with vascular surgery, who recommends evaluation of fistula. It appears usable. Continue ice and elevation. Check labs. No need for emergent dialysis or admission for dialysis catheter placement. Patient will be returned to intermediate facility. Dialysis postponed until Tuesday, 2 days from now. Discharge. Other additions or changes: [None] Discharge Plan Triage Chief Complaint: Upper Extremity Injury ED Midlevel Provider: Debby Baxter ED Provider: Stephen Meneses Dx/Rx/DC Orders Clinical Impression: IV infiltrate, Arteriovenous fistula of right upper extremity Prescriptions: No Action budesonide 3 mg capsule,delayed,extend.release 6 mg PO DAILY Bibiana-Leoncio 0.8 mg tablet 1 tab PO DAILY clopidogrel 75 mg Tablet 75 mg PO DAILY Qty: 0 0RF midodrine 5 mg tablet 10 mg PO MOWEFR Patient Comments: takes it if sbp is less than 120 Rx Instructions: GIVE PRIOR TO DIALYSIS carvedilol 3.125 mg tablet 3.125 mg PO BID amiodarone 200 mg tablet 200 mg PO DAILY sucralfate 1 gram Tablet 1 g PO 4X/DAY Rx Instructions: GIVE 1 TABLET BY MOUTH BEFORE MEAL AND AT BEDTIME pantoprazole 40 mg Tablet,Delayed Release (Dr/Ec) 40 mg PO BID aluminum-magnesium hydroxide 225-200 mg/5 mL suspension 30 ml PO Q4H PRN PRN (Reason: GI distress) calcitriol 0.25 mcg capsule 0.75 mcg PO QODAY Rx Instructions: every tuesday, tue, tue before dialysis calcium acetate 667 mg tablet 667 mg PO .ac Rx Instructions: with meals Renal Vitamin 0.8 mg tablet 1 tab PO DAILY amoxicillin-pot clavulanate 250-125 mg tablet 1 tab PO BID 5 Days Qty: 10 0RF Rx Instructions: Needs HD dosing acetaminophen 325 mg Tablet 650 mg PO Q6H PRN PRN (Reason: Pain 1-10 Or Fever>100.7) Qty: 0 0RF albuterol sulfate 2.5 mg /3 mL (0.083 %) Solution For Nebulization 2.5 mg inhalation Q4H PRN (Reason: bronchospasm) Qty: 0 0RF menthol-zinc oxide [Calmoseptine] 0.44-20.6 % Ointment 1 applic topical BID Qty: 0 0RF Protocol: *Topical Application Instructions APPLICATION INSTRUCTIONS: apply to affected areas bisacodyl 10 mg suppository 10 mg ME DAILY PRN (Reason: constipation) mineral oil [Fleet Mineral Oil] Enema 118 ml ME DAILY PRN (Reason: constipation) Rx Instructions: discard any unused portion atorvastatin [Lipitor] 20 mg tablet 20 mg PO QHS magnesium hydroxide [Milk of Magnesia] 400 mg/5 mL suspension 30 ml PO DAILY PRN (Reason: constipation) ondansetron 4 mg tablet,disintegrating 4 mg PO Q6H PRN (Reason: nausea ) Velphoro 500 mg tablet,chewable 500 mg PO TID Primary Care Provider: Martin Nunez Referrals: Martin Nunez DO [Primary Care Provider] - Activity Restrictions/Additional Instructions: Patient had a fistula ultrasound examination which shows that it should be functional. The vascular team recommended continued elevation, intermittent ice, and to skip dialysis on Tuesday and try to do a session on Tuesday. Please also hold his Plavix until Tuesday so he does not develop a hematoma. If the fistula is not functional when dialysis is attempted come back to the emergency room. Print Language: Moroccan Disposition Disposition: Home, Self Care
--- NOTE | 2023-12-29 15:42 | AVDS_ITS ---
Reason For Study: Infiltration RIGHT Inflow, 233.7/87.3 cm/sec. Inflow, 618.8 ml/min. Prox anastomosis, 339.2/128cm/sec. Prox anastomosis, 762.6 ml/min. Prox graft, 79.4/16.8 cm/sec. Prox graft, 1508 ml/min. Mid graft, 35.5/13.5 cm/sec. Mid graft, 793.5 ml/min. Distal graft, 30.5/12.7 cm/sec. Distal graft, 751.4 ml/min. Outflow, 35.5/12.7 cm/sec. Outflow, 1096 ml/min. Preliminary report given to Sahil MOSS and Dr. Miramontes. VL/AV Fistula/Dialysis Graft Scan Interpretation Summary Patent right upper extremity AV graft with no stenosis identified and adequate flow volumes. No pseudoaneurysm identified. Small fluid collection. Ordering Physician: Debby Baxter Referring Physician: Martin Nunez Performed By: Ro Rogers RVT
--- NOTE | 2023-12-29 16:56 | CON.PCM.SX_ITS ---
Assessment & Plan Assessment/Plan (1) Arteriovenous fistula of right upper extremity: PLAN: Plan Based on exam and duplex results negative for hematoma, anticipate they will be able to continue to access the fistula for dialysis, I do not think a temporary dialysis catheter placement is indicated at this time. I advise elevation of the RUE above the level of the heart at all times of rest to help reduce edema. May apply ice/cool compress as well. Would recommend holding any anticoagulant for 24-48 hours then restart. On exam, bruit was noted to be pulsatile, he has had AVF stenosis in the past, may need outpatient fistulogram in the future. Will discuss with dialysis unit and arrange outpatient follow-up as indicated. HPI Consult Data Date of Consult: 12/29/23 HPI Narrative HPI Narrative: RIA MARIANO, is a 78 M who presents to the [facility] ER this morning from [facility] from dialysis session. He was about 1.5 hours into his dialysis session today when there was infiltration so dialysis session was stopped. He was sent in for evaluation because he had some pain over the fistula and had some numbness down his arm, these have resolved. He is not having any bleeding. There is associated swelling and there was concern as to whether they would be able to continue to access the fistula or whether he may need a temporary cath placed. Fistula duplex was obtained which showed no overlying hematoma or other acute complication. Patient reports that up to this point the fistula had been functioning very well with no issues that he was aware of. His dialysis schedule is Tuesday, Tuesday, , Tuesday. He does have a history of Afib, does not appear that he is on an anticoagulant at this time based on recent admissions, though did not have SNF med list available for review. [facility] Medical History Elevated troponin End-stage renal disease on hemodialysis Anemia Peripheral vascular disease Depression Diabetes Chronic pain Kidney disease Hypertension DVT (deep venous thrombosis) Noncompliance of patient with renal dialysis Thrombocytopenia Elevated troponin Anemia GI bleed Anemia requiring transfusions Chronic anticoagulation Anemia Dialysis patient Coronary artery disease History of GI bleed Loss of hearing Wears glasses Wears partial dentures Wears dentures Cancer Arthritis Low iron Former smoker Sleep apnea History of echocardiogram (~06/30/22) History of stress test (~05/03/22) Cardiology follow-up encounter (~04/04/23) Wide-complex tachycardia Duodenal ulcer Atrial fibrillation Hepatic cyst Iron deficiency anemia ESRD (end stage renal disease) on dialysis Aortic root dilatation Hyperparathyroidism CKD (chronic kidney disease) stage 5, GFR less than 15 ml/min HIT (heparin-induced thrombocytopenia) Bladder cancer HLD (hyperlipidemia) CHF (congestive heart failure) History of pulmonary embolism History of DVT (deep vein thrombosis) History of solitary pulmonary nodule Renal calculus Preop cardiovascular exam Essential hypertension Lymphoma VTE (venous thromboembolism) Lower gastrointestinal bleeding Left upper chest discomfort Home Medications ?Medication ?Instructions ?Recorded ?Last Taken ?Type budesonide 3 mg 6 mg PO DAILY stomach 06/16/23 Unknown History capsule,delayed,extended release vitamin B complex-vitamin C-folic 1 tab PO DAILY supplement 06/16/23 Unknown History acid 0.8 mg tablet (Bibiana-Leoncio) clopidogrel 75 mg tablet 75 mg PO DAILY antiplatelet #0 tabs 06/18/23 Unknown Rx midodrine 5 mg tablet 10 mg PO MOWEFR blood 07/28/23 Unknown History pressure-dialysis amiodarone 200 mg tablet 200 mg PO DAILY heart rate 08/31/23 Unknown History carvedilol 3.125 mg tablet 3.125 mg PO BID HIGH BLOOD PRESSURE 08/31/23 Unknown History pantoprazole 40 mg tablet,delayed 40 mg PO BID reflux 08/31/23 Unknown History release sucralfate 1 gram tablet 1 g PO 4X/DAY reflux 08/31/23 Unknown History acetaminophen 325 mg tablet 650 mg (2 x 325 mg) PO Q6H PRN PRN 09/18/23 Unknown Rx Pain 1-10 Or Fever>100.7 #0 tabs albuterol sulfate 2.5 mg/3 mL 2.5 mg (3 mL) inhalation Q4H PRN 09/18/23 Unknown Rx (0.083 %) solution for nebulization bronchospasm #0 mL menthol 0.44 %-zinc oxide 20.6 % 1 applic topical BID skin #0 grams 09/18/23 Unknown Rx topical ointment (Calmoseptine) atorvastatin 20 mg tablet (Lipitor) 20 mg PO QHS cholesterol 10/22/23 Unknown History bisacodyl 10 mg rectal suppository 10 mg [place] DAILY PRN constipation 10/22/23 Unknown History magnesium hydroxide 400 mg/5 mL 30 ml PO DAILY PRN constipation 10/22/23 Unknown History oral suspension (Milk of Magnesia) mineral oil (Fleet Mineral Oil 118 ml [place] DAILY PRN constipation 10/22/23 Unknown History enema) ondansetron 4 mg disintegrating 4 mg PO Q6H PRN nausea 10/22/23 Unknown History tablet sucroferric oxyhydroxide 500 mg 500 mg PO TID chronic kidney 10/22/23 Unknown History chewable tablet (Velphoro) disease aluminum-magnesium hydroxide 225 30 ml PO Q4H PRN PRN GI distress 12/12/23 Unknown History mg-200 mg/5 mL oral suspension calcitriol 0.25 mcg capsule 0.75 mcg PO QODAY 12/12/23 Unknown History calcium acetate 667 mg tablet 667 mg PO .ac 12/12/23 Unknown History vitamin B complex-vitamin C-folic 1 tab PO DAILY 12/12/23 Unknown History acid 0.8 mg tablet (Renal Vitamin) amoxicillin 250 mg-potassium 1 tab PO BID 5 days #10 tabs 12/15/23 Unknown Rx clavulanate 125 mg tablet Allergy/AdvReac Type Severity Reaction Status Date / Time Iodinated Contrast Media Allergy Intermediate KIDNEY Verified 11/11/23 13:08 FAILURE enoxaparin (From Lovenox) Allergy Other Verified 11/11/23 13:08 heparin Allergy Other Verified 11/11/23 13:08 aspirin AdvReac Other Verified 11/11/23 13:08 Family History Father Cancer lung Arrhythmia Brother Cancer Mother Dementia Surgical History History of foot surgery S/P peripheral artery angioplasty with stent placement History of bladder surgery AV fistula History of corrected cleft lip and palate History of tonsillectomy History of cataract extraction H/O total cystectomy Social History household members: none Smoking Status: Former smoker how long ago did patient quit smoking: Started age 7, stopped at 17, started again 22-2 ppd until quit 2008 alcohol intake: never substance use type: does not use caffeine: No Physical Exam Const alert and oriented x3 General Appearance: cooperative HEENT normocephalic, head/scalp atraumatic and hearing grossly normal bilaterally Eyes EOMs intact bilaterally General Eye: normal appearance of both eyes Resp no retractions and no use of accessory muscles Effort and Inspection: able to speak in complete sentences Cardio regular rate and regular rhythm Extremity Extremity Narrative: R upper arm AVF with palpable pulse/thrill, pulsatile bruit on auscultation. There is noted mild to moderate edema but fistula thrill is palpable in the areas of the needle access. RUE is soft to palpation throughout. There is scattered ecchymosis. R radial pulse is palpable. RUE motor and sensory intact. Skin no rashes or lesions noted Neuro oriented x3, CN's II-XII intact bilaterally, moves all extremities and no focal motor deficits Psych mental status grossly normal Appearance: grossly normal Attitude: calm Activity / Motor Behavior: appropriate eye contact Speech: normal speech
[2023-12-29 17:21] LABS: Absolute Lymphocyte Count 0.32 X10^3/uL (0.83-4.51); Absolute Neutrophil Count 6.8 X10^3/uL (2.0-7.7); Basophil# 0.01 X10^3/uL; Basophil% 0.1 % (0-1); Eosinophil# 0.02 X10^3/uL; Eosinophils% 0.3 % (0-5); Hemoglobin 7.6 g/dL (13.0-16.5); Lymphocyte # 0.32 X10^3/ul (0.83-4.51); Mean Corp Hgb Conc 30.4 g/dL (32-36); Mean Corpuscular Hgb 26.8 pg (27.0-32.0); Monocyte# 0.73 X10^3/uL; Monocyte% 9.2 % (0-10); NRBC Flagged by Analyzer 0 % (0-5); Neutrophil # 6.83 X10^3/uL (2.7-7.7); Neutrophil % 85.8 % (47-70); POSITIVE DIFFERENTIAL YES; Platelet Count 177 K/mm3 (150-450); RBC Distribution Width CV 18.4 % (11.6-14.6); RBC Distribution Width SD 58.9 fl (35.1-43.9); Red Blood Count 2.84 M/mm3 (4.6-6.2)
[2023-12-29 18:07] LABS: Anion Gap 8 (5-15); BUN 124 mg/dL (7-18); Calcium,Total 8.7 mg/dL (8.5-10.1); Chloride 100 mmol/L (98-107); Creatinine, Serum 6.19 mg/dL (0.70-1.30); EST Glomerular Filtration Rate 9 mL/min (>60); Est Glom Filt Rate - Afr Amer 11 mL/min (>60); Glucose 166 mg/dL (74-106); Potassium 4.5 mmol/L (3.5-5.1); Sodium Level 138 mmol/L (136-145)
--- NOTE | 2023-12-29 18:29 | ED.RN ---
[facility] ETA 90MIN-2 HOURS
== END 2023-12-29 22:11 | disposition home or self-care (01) ==
PROVIDERS: Physician Assistant; Emergency Provider Emergency Medicine; PCP Student in an Organized Health Care Education/Training Program; Visit Provider Emergency Medicine
DX: T82.848A Pain due to vascular prosthetic devices, implants and grafts, initial encounter (principal); I13.2 Hypertensive heart and chronic kidney disease with heart failure and with stage 5 chronic kidney disease, or end stage renal disease; N18.6 End stage renal disease; I50.9 Heart failure, unspecified; E11.22 Type 2 diabetes mellitus with diabetic chronic kidney disease; I25.10 Atherosclerotic heart disease of native coronary artery without angina pectoris; Z87.891 Personal history of nicotine dependence; Z99.2 Dependence on renal dialysis; X58.XXXA Exposure to other specified factors, initial encounter
CPT/HCPCS: 80048; 85025; 93990; 99282; A4216

== ENCOUNTER 2024-01-01 22:22 | Inpatient (IN) | payer MEDICARE, BC, SELFPAY ==
[2024-01-01 22:23] VITALS: BP 148/77; PULSE 72; RESP 24; TEMP 36.2; O2SAT 98; BMI 31.6
--- NOTE | 2024-01-01 22:38 | EKG12_ITS ---
Test Reason : DYSRHYTHMIA Blood Pressure : / mmHG Vent. Rate : 068 BPM Atrial Rate : 000 BPM P-R Int : 000 ms QRS Dur : 204 ms QT Int : 478 ms P-R-T Axes : 000 -79 051 degrees QTc Int : 508 ms Atrial fibrillation Left axis deviation Right bundle branch block Abnormal ECG Confirmed by CARIE BYERS, MADHU ([id number]), advertising editor CLIFF MARIE ([id number]) on 01/04/2024 9:53:26 AM Referred By: Confirmed By:JEET DARNELL MD
--- NOTE | 2024-01-01 22:54 | EX.ED.DYSGE1 ---
HPI History of Present Illness Chief Complaint: General Illness Informant: patient, EMS and SNF Narrative Narrative: 78-year-old male extensive medical history including chronic atrial fibrillation, congestive heart and end-stage renal disease on dialysis presenting to the emergency room with general illness. Per report I am told that custodial found her to have altered mental status and minimal vital signs. Transfer to the emergency. Here in the emergency department nursing finds the ANO x 3. He states he generally does not feel well stating that he hurts all over. When asked how he is breathing he states not good. The patient states that he last had dialysis on Tuesday. Is reported that his fistula infiltrated . He had a right chest port reportedly placed on Tuesday. There is no reported fevers. Patient states he makes minimal urine. History of VTE/PE but not on long-term anticoagulation. He is on Tegretol. [facility] Medical History Elevated troponin End-stage renal disease on hemodialysis Anemia Peripheral vascular disease Depression Diabetes Chronic pain Kidney disease Hypertension DVT (deep venous thrombosis) Noncompliance of patient with renal dialysis Thrombocytopenia Elevated troponin Anemia GI bleed Anemia requiring transfusions Chronic anticoagulation Anemia Dialysis patient Coronary artery disease History of GI bleed Loss of hearing Wears glasses Wears partial dentures Wears dentures Cancer Arthritis Low iron Former smoker Sleep apnea History of echocardiogram (~06/30/22) History of stress test (~05/03/22) Cardiology follow-up encounter (~04/04/23) Wide-complex tachycardia Duodenal ulcer Atrial fibrillation Hepatic cyst Iron deficiency anemia ESRD (end stage renal disease) on dialysis Aortic root dilatation Hyperparathyroidism CKD (chronic kidney disease) stage 5, GFR less than 15 ml/min HIT (heparin-induced thrombocytopenia) Bladder cancer HLD (hyperlipidemia) CHF (congestive heart failure) History of pulmonary embolism History of DVT (deep vein thrombosis) History of solitary pulmonary nodule Renal calculus Preop cardiovascular exam Essential hypertension Lymphoma VTE (venous thromboembolism) Lower gastrointestinal bleeding Left upper chest discomfort Home Medications ?Medication ?Instructions ?Recorded ?Last Taken ?Type budesonide 3 mg 6 mg PO DAILY stomach 06/16/23 Unknown History capsule,delayed,extended release vitamin B complex-vitamin C-folic 1 tab PO DAILY supplement 06/16/23 Unknown History acid 0.8 mg tablet (Bibiana-Leoncio) clopidogrel 75 mg tablet 75 mg PO DAILY antiplatelet #0 tabs 06/18/23 Unknown Rx midodrine 5 mg tablet 10 mg PO MOWEFR blood 07/28/23 Unknown History pressure-dialysis amiodarone 200 mg tablet 200 mg PO DAILY heart rate 08/31/23 Unknown History carvedilol 3.125 mg tablet 3.125 mg PO BID HIGH BLOOD PRESSURE 08/31/23 Unknown History pantoprazole 40 mg tablet,delayed 40 mg PO BID reflux 08/31/23 Unknown History release sucralfate 1 gram tablet 1 g PO 4X/DAY reflux 08/31/23 Unknown History acetaminophen 325 mg tablet 650 mg (2 x 325 mg) PO Q6H PRN PRN 09/18/23 Unknown Rx Pain 1-10 Or Fever>100.7 #0 tabs albuterol sulfate 2.5 mg/3 mL 2.5 mg (3 mL) inhalation Q4H PRN 09/18/23 Unknown Rx (0.083 %) solution for nebulization bronchospasm #0 mL menthol 0.44 %-zinc oxide 20.6 % 1 applic topical BID skin #0 grams 09/18/23 Unknown Rx topical ointment (Calmoseptine) atorvastatin 20 mg tablet (Lipitor) 20 mg PO QHS cholesterol 10/22/23 Unknown History bisacodyl 10 mg rectal suppository 10 mg [place] DAILY PRN constipation 10/22/23 Unknown History magnesium hydroxide 400 mg/5 mL 30 ml PO DAILY PRN constipation 10/22/23 Unknown History oral suspension (Milk of Magnesia) mineral oil (Fleet Mineral Oil 118 ml [place] DAILY PRN constipation 10/22/23 Unknown History enema) ondansetron 4 mg disintegrating 4 mg PO Q6H PRN nausea 10/22/23 Unknown History tablet aluminum-magnesium hydroxide 225 30 ml PO Q4H PRN PRN GI distress 12/12/23 Unknown History mg-200 mg/5 mL oral suspension calcitriol 0.25 mcg capsule 0.75 mcg PO QODAY 12/12/23 Unknown History calcium acetate 667 mg tablet 667 mg PO .ac 12/12/23 Unknown History vitamin B complex-vitamin C-folic 1 tab PO DAILY 12/12/23 Unknown History acid 0.8 mg tablet (Renal Vitamin) ferrous sulfate 325 mg (65 mg 325 mg PO DAILY 01/02/24 Unknown History iron) tablet (Feosol) Allergy/AdvReac Type Severity Reaction Status Date / Time Iodinated Contrast Media Allergy Intermediate KIDNEY Verified 11/11/23 13:08 FAILURE enoxaparin (From Lovenox) Allergy Other Verified 11/11/23 13:08 heparin Allergy Other Verified 11/11/23 13:08 aspirin AdvReac Other Verified 11/11/23 13:08 Family History Father Cancer lung Arrhythmia Brother Cancer Mother Dementia Surgical History History of foot surgery S/P peripheral artery angioplasty with stent placement History of bladder surgery AV fistula History of corrected cleft lip and palate History of tonsillectomy History of cataract extraction H/O total cystectomy Social History (Updated 01/02/24 @ 01:[address] Lisa James MD) household members: none housing: custodial Smoking Status: Former smoker how long ago did patient quit smoking: Started age 7, stopped at 17, started again 22 w/ 2 ppd until quit 2008. alcohol intake: never substance use type: does not use caffeine: No ROS ROS ED ROS Narrative Generalized weakness and pain Constitutional Constitutional ED: Denies chills or weight loss Eyes Eyes: Denies change in vision or diplopia ENT ENT ED: Denies ear pain, rhinorrhea or sore throat Cardiovascular Cardiovascular: Denies chest pain, orthopnea, palpitations or racing heartbeat Respiratory/Chest Respiratory/Chest: Reports dyspnea; Denies cough or orthopnea Gastrointestinal Gastrointestinal: Denies abdominal pain, diarrhea, nausea or vomiting Genitourinary Genitourinary ED: Denies dysuria, hematuria or urinary frequency Musculoskeletal Musculoskeletal: Reports other Details: Bilateral leg pain ; Denies arthralgias or myalgias Integumentary Reports other Details: Chronic wounds bilateral lower extremity ; Denies abscess or rash Neurologic Neurologic: Denies headache(s) or weakness Psychiatric Psychiatric: Denies anxiety, depression, suicidal ideation or suicidal thoughts Endocrine Endocrinology: Denies polydipsia, polyphagia or polyuria Allergic/Immunologic Allergic/Immunologic ED: Denies mouth swelling, tongue swelling or urticaria EXAM Physical Exam Narrative Exam Narrative: Patient is normally nonambulatory. Const Vital Signs: 01/01/24 22:23 01/01/24 22:29 01/01/24 22:58 Temperature 97.2 F L Temperature Source Temporal Pulse Rate 72 Respiratory Rate 24 H Respiratory Effort Short of Breath Accessory Muscle Use Respiratory Pattern Tachypnea Blood Pressure 148/77 H Blood Pressure Mean 100 Pulse Ox 98 Oxygen Delivery Method Nasal Cannula Nasal Cannula Oxygen Flow Rate (L/min) 3 3 01/01/24 23:29 Temperature 97.5 F L Temperature Source Oral Pulse Rate 68 Respiratory Rate 20 H Respiratory Effort Respiratory Pattern Blood Pressure 123/53 H Blood Pressure Mean 76 Pulse Ox 98 Oxygen Delivery Method Nasal Cannula Oxygen Flow Rate (L/min) 3 Positive well nourished, well developed and obese General Appearance ED: well developed Nutritional Appearance: obese HEENT Reports normocephalic, head/scalp atraumatic and moist mucous membranes Eyes PERRL and EOMs intact bilaterally Neck no lymphadenopathy, supple and no JVD Chest Wall Chest Narrative: Medical port in the right chest presumed subclavian vein. This does not appear to have substantial hematoma or evidence of secondary infection Resp clear to auscultation bilaterally Resp Narrative: Increased respiratory rate of 23 Auscultation: diminished lung sounds bilateral Cardio regular rhythm and no murmurs Rhythm: abnormal rhythm irregularly irregular GI normal to inspection, nondistended, normoactive bowel sounds and non-tender Palpation: soft Back/Spine no CVA tenderness and normal ROM Extremity Extremity Narrative: Chronic lower extremity wounds that are wrapped. Fistula right arm General Extremety ED: Negative for edema General Extremity: Negative for edema Neuro oriented x3 and CN's II-XII intact bilaterally Sensorium / Orientation: alert Motor Exam: strength 5/5 throughout Psych mental status grossly normal Mood & Affect: Negative for depressed or tearful Skin no rashes or lesions noted MDM MDM MDM Narrative Medical decision making narrative: Differential diagnosis includes but not limited to cardiac dysrhythmia ACS uremia electrolyte disturbance volume overload infection Hemoglobin 7.7 with a white count of 7.8 platelet count is 218. BUN is significantly elevated 209 creatinine 10.40 anion gap of 13 CO2 of 25 potassium is elevated 6.6. When I look at his EKG I am seeing more prominent T waves than before. Hyperkalemia ED order set was utilized including insulin glucose albuterol and Kayexalate. My independent interpretation of the chest x-ray is no acute process specifically no evidence of volume overload. EKG is atrial fibrillation is rate controlled I spoke with the hospitalist. Patient will be admitted for hyperkalemia and dialysis. History & Record Review Discussion w/independent historian: EMS personnel, Patient and Other (SNF) Additional record(s) reviewed:: Prior inpatient record, Prior ED visit and Prior labs Lab Data Attestation: I reviewed the patient's lab results. Labs: Laboratory Results - last 24 hr 01/01/24 01/01/24 01/01/24 23:08 23:08 23:08 WBC 7.8 RBC 2.83 L Hgb 7.7 L Hct 25.3 L MCV 89.4 MCH 27.2 MCHC 30.4 L RDW Std Deviation 61.1 H RDW Coeff of Lencho 18.6 H Plt Count 218 MPV 10.6 Immature Gran % (Auto) 0.500 Neut % (Auto) 89.4 H Lymph % (Auto) 4.5 L Laurel % (Auto) 5.2 Eos % (Auto) 0.3 Baso % (Auto) 0.1 Absolute Neuts (auto) 7.0 Absolute Lymphs (auto) 0.35 L Nucleated RBC % 0 PT 16.9 H INR 1.4 APTT 51.6 H Sodium 138 Potassium 6.6 H* Chloride 100 Carbon Dioxide 25.0 Anion Gap 13 BUN 209 H* Creatinine 10.40 H* Estim Creat Clear Calc 6.84 Est GFR (MDRD) Af Amer 6 L Est GFR (MDRD) Non-Af 5 L BUN/Creatinine Ratio 20.1 H Glucose 182 H Lactic Acid 1.6 Calcium 9.4 Phosphorus 5.3 H 5.3 H Magnesium 2.0 2.0 Total Bilirubin 0.50 Direct Bilirubin 0.23 AST 7 L ALT 19 Alkaline Phosphatase 94 Total Protein 5.6 L Albumin 2.6 L Globulin 3.0 Radiography Diagnostic Testing: Clinical Impression(s) from Imaging Studies Chest X-Ray 01/01/24 23:20 IMPRESSION: Stable changes of chronic interstitial fibrosis. No acute consolidative process. Electronically Signed: Edwin Santoyo MD at 0:19 EDT , EKG Initial EKG: Attestation: I personally reviewed and interpreted this EKG as follows: Comments: Atrial fibrillation right bundle branch block ventricular rate of 68 bpm Management Discussion w/another healthcare provider: Hospitalist Discharge Plan Dx/Rx/DC Orders Clinical Impression: Anemia, Hyperkalemia, End stage renal disease on dialysis, Acute uremia Disposition Disposition: Acute Care [facility] Discharge Date/Time: 01/02/24 01:14
[2024-01-01] MEDS: Morphine 2 MG/ML Syringe IV (23:17)
[2024-01-01] MEDS: Ondansetron 4 MG/2 ML Vial IV (23:17)
--- NOTE | 2024-01-01 23:20 | RAD_ITS ---
INDICATION: dyspnea EXAMINATION/TECHNIQUE: X-RAY - portable upright AP chest x-ray COMPARISON: 12/12/2023, 10/19/2023 FINDINGS: LINES/DEVICES: Stable right-sided port LUNGS: Stable diffuse coarsening of interstitial markings without focal consolidation, vascular congestion or pleural effusion. MEDIASTINUM AND CARDIOVASCULAR STRUCTURES: Cardiac silhouette stable within upper normal limits. BONES AND SOFT TISSUES: No acute changes. RAD/Chest 1 View (Portable) IMPRESSION: Stable changes of chronic interstitial fibrosis. No acute consolidative process. Electronically Signed: Edwin Santoyo MD at 0:19 EDT ,
[2024-01-01 23:29] VITALS: BP 123/53; PULSE 68; RESP 20; TEMP 36.4; O2SAT 98
[2024-01-01 23:38] LABS: Absolute Lymphocyte Count 0.35 X10^3/uL (0.83-4.51); Basophil# 0.01 X10^3/uL; Basophil% 0.1 % (0-1); Eosinophil# 0.02 X10^3/uL; Eosinophils% 0.3 % (0-5); Hematocrit 25.3 % (40-54); Hemoglobin 7.7 g/dL (13.0-16.5); Lymphocyte # 0.35 X10^3/ul (0.83-4.51); Lymphocyte % 4.5 % (19-41); Mean Corp Hgb Conc 30.4 g/dL (32-36); Mean Corpuscular Hgb 27.2 pg (27.0-32.0); Mean Corpuscular Volume 89.4 fL (80-94); Mean Platelet Vol. 10.6 fl (6.2-12.0); Monocyte# 0.41 X10^3/uL; Monocyte% 5.2 % (0-10); NRBC Flagged by Analyzer 0 % (0-5); Neutrophil % 89.4 % (47-70); POSITIVE DIFFERENTIAL YES; Platelet Count 218 K/mm3 (150-450); RBC Distribution Width CV 18.6 % (11.6-14.6); RBC Distribution Width SD 61.1 fl (35.1-43.9); Red Blood Count 2.83 M/mm3 (4.6-6.2); White Blood Count 7.8 K/mm3 (4.4-11.0)
[2024-01-01 23:47] LABS: International Normalized Ratio 1.4; Prothrombin Time (Protime)PT. 16.9 SECONDS (11.7-14.9)
[2024-01-01 23:48] LABS: Partial Thromboplast Time 51.6 Seconds (24.1-36.2)
[2024-01-01 23:54] LABS: Phosphorus 5.3 mg/dL (2.5-4.9)
[2024-01-01 23:55] LABS: Differential Indicated SCAN CRITERIA MET
[2024-01-02] VITALS (22 sets, daily range): BP systolic 83–303; BP diastolic 53–82; PULSE 65–104; RESP 12–27; TEMP 35.6–36.7; O2SAT 90–100; BMI 37.0; BMI 29.2; BMI 37.1
[2024-01-02 00:02] LABS: Lactic Acid 1.6 mmol/L (0.4-1.9)
[2024-01-02 00:16] LABS: AST(SGOT) 7 U/L (15-37); Alanine Aminotransfer ALT/SGPT 19 U/L (16-61); Albumin, Serum 2.6 g/dL (3.2-5.0); Alkaline Phosphatase 94 U/L (45-117); Anion Gap 13 (5-15); BUN 209 mg/dL (7-18); BUN/Creat Ratio 20.1 RATIO (10-20); Bilirubin, Direct 0.23 mg/dL (0.00-0.30); Calcium,Total 9.4 mg/dL (8.5-10.1); Chloride 100 mmol/L (98-107); EST Glomerular Filtration Rate 5 mL/min (>60); Est Glom Filt Rate - Afr Amer 6 mL/min (>60); Estimated Creatinine Clearance 6.84 ml/min; Glucose 182 mg/dL (74-106); Potassium 6.6 mmol/L (3.5-5.1); Protein, Total 5.6 g/dL (6.4-8.2); Sodium Level 138 mmol/L (136-145)
--- NOTE | 2024-01-02 00:36 | HP.PCM.HOS_ITS ---
HPI - General General Date of Admission: 01/02/24 Date of Service: 01/02/24 Chief Complaint: Fatigue, malaise, generalized discomfort. HPI Narrative The patient is a 78 y/o M w/ PMHx: PAD s/p L great toe resection secondary to osteomyelitis with LLE angioplasty and PCI x 3, Former tobacco use, HFpEF, Chronic thrombocytopenia, HTN, HLD, ESRD on HD following with Dr. Inman with minimal UOP M/W/F, AOCD/Fe deficiency anemia, Hx VTE (DVT/PE), PAF, Hx Lymphoma, Hx Hyperparathyroidism, Hx Bladder CA, Hx GI bleeds who presents to the [facility] ED on 01/02/24 with history of feeling poorly and hurting all over with increased fatigue and per facility occasional altered mental status with reportedly his last dialysis session the Tuesday prior because his fistula infiltrated thus he missed his next dialysis session but had a follow-up intervention with Dr. Miramontes with right chest port placed with plan next dialysis 01/02/2024 but given symptoms prompted ED evaluation to be cautious. Patient does report dyspnea although more chronic and denies any recent cough, congestion, fever, chills. Workup in the ED included T97.2, heart rate 72, BP 140/77, respiratory rate 24, 98% on chronic 3 L nasal cannula, CBC with WBC 7.8, hemoglobin 7.7, MCV 89.4, platelet 218 without marked shift with lymphopenia, coags with PT 16.9, INR 1.4, PTT 51.6, CMP with potassium 6.6 and not noted to be hemolyzed, BUN/creatinine to a 9/10.40, glucose 182, magnesium 2.0, phosphorus 5.3, hepatic profile not marked appearing otherwise, lactic acid 1.6, chest x-ray with stable chronic interstitial fibrotic changes with no acute cardiopulmonary findings otherwise, rapid SARS COVID/influenza/RSV PCR negative, EKG with atrial fibrillation with right bundle branch block with no acute evidence of ischemia. In the ED patient ministered albuterol inhalation, calcium chloride 1 g IV x 1, insulin lispro 10 unit IV x 1, dextrose 10% bolus IV x 1, Zofran 4 mg IV x 1, morphine 2 mg IV x 1 as well as sodium polystyrene 30 g p.o. x 1. COUNT INCLUDES THE [facility] Medical History Elevated troponin End-stage renal disease on hemodialysis Anemia Peripheral vascular disease Depression Diabetes Chronic pain Kidney disease Hypertension DVT (deep venous thrombosis) Noncompliance of patient with renal dialysis Thrombocytopenia Elevated troponin Anemia GI bleed Anemia requiring transfusions Chronic anticoagulation Anemia Dialysis patient Coronary artery disease History of GI bleed Loss of hearing Wears glasses Wears partial dentures Wears dentures Cancer Arthritis Low iron Former smoker Sleep apnea History of echocardiogram (~06/30/22) History of stress test (~05/03/22) Cardiology follow-up encounter (~04/04/23) Wide-complex tachycardia Duodenal ulcer Atrial fibrillation Hepatic cyst Iron deficiency anemia ESRD (end stage renal disease) on dialysis Aortic root dilatation Hyperparathyroidism CKD (chronic kidney disease) stage 5, GFR less than 15 ml/min HIT (heparin-induced thrombocytopenia) Bladder cancer HLD (hyperlipidemia) CHF (congestive heart failure) History of pulmonary embolism History of DVT (deep vein thrombosis) History of solitary pulmonary nodule Renal calculus Preop cardiovascular exam Essential hypertension Lymphoma VTE (venous thromboembolism) Lower gastrointestinal bleeding Left upper chest discomfort Home Medications ?Medication ?Instructions ?Recorded ?Last Taken ?Type budesonide 3 mg 6 mg PO DAILY stomach 06/16/23 Unknown History capsule,delayed,extended release vitamin B complex-vitamin C-folic 1 tab PO DAILY supplement 06/16/23 Unknown History acid 0.8 mg tablet (Bibiana-Leoncio) clopidogrel 75 mg tablet 75 mg PO DAILY antiplatelet #0 tabs 06/18/23 Unknown Rx midodrine 5 mg tablet 10 mg PO MOWEFR blood 07/28/23 Unknown History pressure-dialysis amiodarone 200 mg tablet 200 mg PO DAILY heart rate 08/31/23 Unknown History carvedilol 3.125 mg tablet 3.125 mg PO BID HIGH BLOOD PRESSURE 08/31/23 Unknown History pantoprazole 40 mg tablet,delayed 40 mg PO BID reflux 08/31/23 Unknown History release sucralfate 1 gram tablet 1 g PO 4X/DAY reflux 08/31/23 Unknown History acetaminophen 325 mg tablet 650 mg (2 x 325 mg) PO Q6H PRN PRN 09/18/23 Unknown Rx Pain 1-10 Or Fever>100.7 #0 tabs albuterol sulfate 2.5 mg/3 mL 2.5 mg (3 mL) inhalation Q4H PRN 09/18/23 Unknown Rx (0.083 %) solution for nebulization bronchospasm #0 mL menthol 0.44 %-zinc oxide 20.6 % 1 applic topical BID skin #0 grams 09/18/23 Unknown Rx topical ointment (Calmoseptine) atorvastatin 20 mg tablet (Lipitor) 20 mg PO QHS cholesterol 10/22/23 Unknown History bisacodyl 10 mg rectal suppository 10 mg SC DAILY PRN constipation 10/22/23 Unknown History magnesium hydroxide 400 mg/5 mL 30 ml PO DAILY PRN constipation 10/22/23 Unknown History oral suspension (Milk of Magnesia) mineral oil (Fleet Mineral Oil 118 ml SC DAILY PRN constipation 10/22/23 Unknown History enema) ondansetron 4 mg disintegrating 4 mg PO Q6H PRN nausea 10/22/23 Unknown History tablet sucroferric oxyhydroxide 500 mg 500 mg PO TID chronic kidney 10/22/23 Unknown History chewable tablet (Velphoro) disease aluminum-magnesium hydroxide 225 30 ml PO Q4H PRN PRN GI distress 12/12/23 Unknown History mg-200 mg/5 mL oral suspension calcitriol 0.25 mcg capsule 0.75 mcg PO QODAY 12/12/23 Unknown History calcium acetate 667 mg tablet 667 mg PO .ac 12/12/23 Unknown History vitamin B complex-vitamin C-folic 1 tab PO DAILY 12/12/23 Unknown History acid 0.8 mg tablet (Renal Vitamin) amoxicillin 250 mg-potassium 1 tab PO BID 5 days #10 tabs 12/15/23 Unknown Rx clavulanate 125 mg tablet Allergy/AdvReac Type Severity Reaction Status Date / Time Iodinated Contrast Media Allergy Intermediate KIDNEY Verified 11/11/23 13:08 FAILURE enoxaparin (From Lovenox) Allergy Other Verified 11/11/23 13:08 heparin Allergy Other Verified 11/11/23 13:08 aspirin AdvReac Other Verified 11/11/23 13:08 Family History Father Cancer lung Arrhythmia Brother Cancer Mother Dementia Surgical History History of foot surgery S/P peripheral artery angioplasty with stent placement History of bladder surgery AV fistula History of corrected cleft lip and palate History of tonsillectomy History of cataract extraction H/O total cystectomy Social History (Updated 01/02/24 @ 01:[address] Lisa James MD) household members: none housing: jail Smoking Status: Former smoker how long ago did patient quit smoking: Started age 7, stopped at 17, started again 22 w/ 2 ppd until quit 2008. alcohol intake: never substance use type: does not use caffeine: No ROS ROS Narrative Admission Review of Systems: CONSTITUTIONAL: No weight loss, fever, chills, + weakness or fatigue. HEENT: Eyes: No visual loss, blurred vision, double vision or yellow sclerae. Ears, Nose, Throat: No hearing loss, sneezing, congestion, runny nose or sore throat. SKIN: + various staged ecchymoses, venous stasis skin changes, more notable LLE. CARDIOVASCULAR: + chronic edema, chronic pleuritic chest discomfort. No palpitations, orthopnea, syncopal events. RESPIRATORY: + shortness of breath. No marked cough or sputum, wheezing, hemoptysis. GASTROINTESTINAL: No anorexia, nausea, vomiting or diarrhea, abdominal pain, melena, BRBPR. GENITOURINARY: + nearly anuric. No dysuria, frequency, urgency or retention. NEUROLOGICAL: No headache, dizziness, syncope, paralysis, ataxia, numbness or tingling in the extremities, focal weakness, change in bowel or bladder control, seizure. MUSCULOSKELETAL: + muscle, back pain, joint pain or stiffness. HEMATOLOGIC: + anemia, easy bleeding and bruising. LYMPHATICS: No enlarged nodes. No history of splenectomy. PSYCHIATRIC: + History of anxiety. ENDOCRINOLOGIC: No reports of sweating, cold or heat intolerance. No polyuria or polydipsia. ALLERGIES: No history of asthma, hives, eczema or rhinitis. Vital Signs Vital Signs Vital Signs: 01/01/24 22:23 01/01/24 22:29 01/01/24 22:58 Temperature 97.2 F L Temperature Source Temporal Pulse Rate 72 Respiratory Rate 24 H Respiratory Effort Short of Breath Accessory Muscle Use Respiratory Pattern Tachypnea Blood Pressure 148/77 H Blood Pressure Mean 100 Pulse Ox 98 Oxygen Delivery Method Nasal Cannula Nasal Cannula Oxygen Flow Rate (L/min) 3 3 01/01/24 23:29 Temperature 97.5 F L Temperature Source Oral Pulse Rate 68 Respiratory Rate 20 H Respiratory Effort Respiratory Pattern Blood Pressure 123/53 H Blood Pressure Mean 76 Pulse Ox 98 Oxygen Delivery Method Nasal Cannula Oxygen Flow Rate (L/min) 3 Weight Weight: 214 lb 3.2 oz Body Mass Index (BMI) 31.6 Physical Exam Narrative Physical Examination: General: Patient is extremely fatigued, will awaken to stimuli and becomes a bit more alert but falls back asleep quickly, was oriented x 3 upon ED arrival, very fatigued, lying in the ED bed, no acute distress. Skin: Normal color, normal turgor, no icterus, no cyanosis except for venous stasis skin changes significantly worse left lower extremity compared to right, occasional abrasion, occasional staged ecchymoses, left toe distal tips chronically discolored. HEENT: AT/NC, EOMI, PERRLA, mildly dry MM, no carotid bruits or JVD noted; however thickened neck makes evaluation difficult. Lungs: Diminished, greater bases, no acute evidence of any distress, no rales, ronchi or wheezing. Heart: Irregular, rate controlled, no gallop or rub noted. Abdomen: Soft, obese, no grimace with palpation of all abdominal quadrants, mildly hyperactive BS, does not appear distended, no appreciated HSM. Extremities: No cyanosis, no clubbing, see skin. Neurological: Patient is extremely fatigued, will awaken to stimuli and becomes a bit more alert but falls back asleep quickly, was oriented x 3 upon ED arrival, very fatigued, lying in the ED bed, no acute distress, cognitive function currently not baseline intact given significant fatigue and difficulty staying awake with evaluation; pupils equally reactive to light and accommodation, cranial nerves grossly normal but difficult evaluation given falling asleep quickly, spontaneously moving extremities, strength severely globally decreased. Psychiatric: Affect appears significantly fatigued, no acute evidence of depressive or anxiety feelings. Results Lab / Micro Data 01/01/24 23:08 01/01/24 23:08 Labs: Laboratory Results - last 24 hr 01/01/24 23:08: WBC 7.8, RBC 2.83 L, Hgb 7.7 L, Hct 25.3 L, MCV 89.4, MCH 27.2, MCHC 30.4 L, RDW Std Deviation 61.1 H, RDW Coeff of Lencho 18.6 H, Plt Count 218, MPV 10.6, Immature Gran % (Auto) 0.500, Neut % (Auto) 89.4 H, Lymph % (Auto) 4.5 L, Smith % (Auto) 5.2, Eos % (Auto) 0.3, Baso % (Auto) 0.1, Absolute Neuts (auto) 7.0, Absolute Lymphs (auto) 0.35 L, Nucleated RBC % 0, PT 16.9 H, INR 1.4, APTT 51.6 H, Sodium 138, Potassium 6.6 H*, Chloride 100, Carbon Dioxide 25.0, Anion Gap 13, BUN 209 H*, Creatinine 10.40 H*, Estim Creat Clear Calc 6.84, Est GFR (MDRD) Af Amer 6 L, Est GFR (MDRD) Non-Af 5 L, BUN/Creatinine Ratio 20.1 H, G lucose 182 H, Lactic Acid 1.6, Calcium 9.4, Phosphorus 5.3 H, Magnesium 2.0, Total Bilirubin 0.50, Direct Bilirubin 0.23, AST 7 L, ALT 19, Alkaline Phosphatase 94, Total Protein 5.6 L, Albumin 2.6 L, Globulin 3.0 Micro: Microbiology 01/01/24 23:21 Mucosa - Nose SARS-CoV-2, Influenza & RSV (PCR) - Final Imaging Radiology Impression Chest X-Ray 01/01/24 23:20 IMPRESSION: Stable changes of chronic interstitial fibrosis. No acute consolidative process. Electronically Signed: Edwin Santoyo MD at 0:19 EDT Reading Location ID and State: [address] [place] [address] Tel , Service support , Assessment & Plan Assessment/Plan (1) Hyperkalemia: PLAN: Plan The patient is a 78 y/o M w/ PMHx: PAD s/p L great toe resection secondary to osteomyelitis with LLE angioplasty and PCI x 3, Former tobacco use, HFpEF, Chronic thrombocytopenia, HTN, HLD, ESRD on HD following with Dr. Inman with minimal UOP M/W/F, AOCD/Fe deficiency anemia, Hx VTE (DVT/PE), PAF, Hx Lymphoma, Hx Hyperparathyroidism, Hx Bladder CA, Hx GI bleeds who presents to the [facility] ED on 01/02/24 with history of feeling poorly and hurting all over with increased fatigue and per facility occasional altered mental status with reportedly his last dialysis session the Tuesday prior because his fistula infiltrated thus he missed his next dialysis session but had a follow-up intervention with Dr. Miramontes with right chest port placed with plan next dialysis 01/02/2024 but given symptoms prompted ED evaluation to be cautious. #1. Fatigue, malaise, generalized body aches with significant hyperkalemia, missed HD: Will admit to PCU, maintain on telemetry monitoring, discussed with ED physician and patient initiated on hyperkalemic protocol in the ED including Kayexalate, will repeat BMP in approximately 2 hours and repeat hyperkalemic protocol if necessary, nephrology consulted with planned dialysis on day of presentation, maintain on fall and aspiration precautions, PT/OT consulted for discharge planning. #2. PAD, history of left great toe osteomyelitis: Followed initially with Dr. Miramontes with history of initial referral secondary to left great toe wound with PAD referred by podiatry, L EAS with noncompressible vessels bilaterally but with monophasic waveform left lower extremity and TBI 0.2 status post previous thrombectomy possibly secondary to left lower extremity clots possibly off Coumadin at that time however this is remote in 2012 and unclear if they were venous or arterial and unclear if any stents are present peripherally. Given timeline however he was then referred to [facility] and underwent L great toe amputation secondary to osteomyelitis, treated during admission with abx therapy, LLE angioplasty and PCI x 3. Will continue Plavix, hypertensive regimen, statin therapy. #3. History of GI bleed: Patient with history of recurrent GI bleeds, eventually anticoagulation had been discontinued, will continue PPI and Carafate regimen, encouraged outpatient follow-up with GI as previously arranged. #4. Chronic normocytic anemia/AOCD: Admission hemoglobin 7.7, MCV 89.4, baseline hemoglobin primarily 7-8, stable, continue to trend. #5. Chronic thrombocytopenia: Patient with significantly improved platelets since the end of 11/2023, admission platelets currently 218, prior to this patient had significantly vacillated, will continue to closely monitor. #6. HFpEF: Most recent noted ECHO 06/30/2022 with normal LV systolic function, EF 60%, mild concentric LVH, mildly dilated RV, severely enlarged LA and moderately enlarged RA, mild MVI, mild TVI, RVSP 31 mmHg with inability to assess diastolic function. Will continue Plavix, statin, Coreg. Plan dialysis 01/02/2024 as noted above. #7. ESRD: Patient last HD as noted in HPI W, chest access placed following given malfunction with fistula, nephrology consulted as noted above for planned dialysis given hyperkalemia on top of the fact that this is his normal day. #8. PAF: We will continue patient home amiodarone as well as Coreg. Not chronically anticoagulated secondary to recurrent GI bleeding issues. #9. History of VTE: Patient with previous history of DVT and PE. During prior admission given recurrent GI bleeding anticoagulation was discontinued. #10. Hypertension: Will continue home coreg, PRN IV hydralazine. #11. Hyperlipidemia: Continue home statin regimen. #12. History lymphoma, bladder cancer: Patient status post remote history of bladder resection and reconstruction considered in remission as well as a history of lymphoma treated with per son chemotherapy also considered in remission. Follow-up with urology as well as oncology as previously arranged. #13. Former tobacco use: Encourage continued tobacco cessation. #14. DVT prophylaxis: SCDs. #15. CODE status: Patient DEANNA is his son who is present and living will is currently in place. Discussed with son that patient is currently listed as a full CODE STATUS at the facility which is what he has had prior. Again discussed his extensive health issues and the fact that he would have a poor prognosis if aggressive attempts were made in the case of cardiopulmonary arrest. Patient's son elects to continued Full Code status. Advanced Care Planning Face to Face Time: 16 minutes. Charges/Coding Visit Charges Inpatient E&M: 19767 Init Hosp L3 Procedures Hospitalists Procedures: 81581 Advncd Care Plan 30 Min
[2024-01-02] MEDS: Calcium Chloride 1 GM/10 ML Syringe IV (00:45)
[2024-01-02] MEDS: Insulin Lispro 10 UNIT in Syringe 0 ML 6 UNIT IV (00:45)
[2024-01-02] MEDS: Dextrose 10%-Water 250 ML 999 ML IV (00:45)
[2024-01-02] MEDS: Albuterol *CONC* 2.5mg/0.5mL VIAL.NEB. 10 MG INHALATION (00:47)
[2024-01-02] MEDS: Sodium Polystyrene Sulfonate 15 GM/60 ML UDC 30 GM PO (00:47)
--- NOTE | 2024-01-02 01:50 | NURSING ---
Patient refusing SCD's. Explained importance of intervention.
[2024-01-02 01:51] LABS: Phosphorus 5.3 mg/dL (2.5-4.9)
[2024-01-02 05:00] LABS: Anion Gap 15 (5-15); BUN 202 mg/dL (7-18); BUN/Creat Ratio 19.2 RATIO (10-20); Calcium,Total 10.4 mg/dL (8.5-10.1); Chloride 99 mmol/L (98-107); EST Glomerular Filtration Rate 5 mL/min (>60); Est Glom Filt Rate - Afr Amer 6 mL/min (>60); Estimated Creatinine Clearance 7.33 ml/min; Glucose 135 mg/dL (74-106); Potassium 5.9 mmol/L (3.5-5.1); Sodium Level 139 mmol/L (136-145)
[2024-01-02] MEDS: Calcium Acetate 667 MG Capsule PO (05:51)
[2024-01-02] MEDS: Sucralfate 1 GM Tablet PO (05:51)
[2024-01-02 08:04] LABS: ALB/GLOB Ratio 0.8 RATIO (0.9-2.4); AST(SGOT) 11 U/L (15-37); Alanine Aminotransfer ALT/SGPT 19 U/L (16-61); Albumin, Serum 2.7 g/dL (3.2-5.0); Alkaline Phosphatase 96 U/L (45-117); Globulin 3.5 g/dL (2.2-4.2); Protein, Total 6.2 g/dL (6.4-8.2)
[2024-01-02 08:13] LABS: Absolute Lymphocyte Count 0.53 X10^3/uL (0.83-4.51); Absolute Neutrophil Count 7.2 X10^3/uL (2.0-7.7); Basophil# 0.01 X10^3/uL; Basophil% 0.1 % (0-1); Eosinophil# 0.04 X10^3/uL; Eosinophils% 0.5 % (0-5); Hematocrit 26.2 % (40-54); Lymphocyte # 0.53 X10^3/ul (0.83-4.51); Lymphocyte % 6.3 % (19-41); Mean Corp Hgb Conc 30.5 g/dL (32-36); Mean Corpuscular Hgb 27.3 pg (27.0-32.0); Mean Corpuscular Volume 89.4 fL (80-94); Mean Platelet Vol. 10.5 fl (6.2-12.0); Monocyte# 0.64 X10^3/uL; Monocyte% 7.6 % (0-10); NRBC Flagged by Analyzer 0 % (0-5); Neutrophil # 7.17 X10^3/uL (2.7-7.7); POSITIVE DIFFERENTIAL YES; Platelet Count 225 K/mm3 (150-450); RBC Distribution Width CV 18.6 % (11.6-14.6); Red Blood Count 2.93 M/mm3 (4.6-6.2); White Blood Count 8.4 K/mm3 (4.4-11.0)
[2024-01-02] MEDS: 0.9% Normal Saline 1,000 ML IV.SOLN. 1000 ML OPERA.SITE (08:13)
[2024-01-02] MEDS: PureFlow B 2K Dialysis Soln 1 BAG 6 BAG PF (08:22)
--- NOTE | 2024-01-02 11:15 | RAD_ITS ---
STUDY: X-RAY CHEST REASON FOR EXAM: Male, 78 years old. Sob ams TECHNIQUE: Single AP portable view of the chest. COMPARISON: Comparison is made with prior study dated January 01, 2024. FINDINGS: A right-sided portacatheter is seen with the tip at the junction of the superior vena cava and right atrium. EKG electrodes are seen. Surgical clips are seen in the right axilla. Stable mild increased markings at the lung bases suggestive of linear atelectasis and/or scarring. There is no demonstrated pleural abnormality. Normal size heart. Normal mediastinum and donaldo. Normal visualized pulmonary arteries. There is atherosclerotic calcification of the aortic arch with tortuosity. There are diffuse degenerative changes of the visualized thoracic spine. There is degenerative osteoarthritis of the bilateral shoulders. There is no demonstrated abnormality of the visualized soft tissue structures of the upper abdomen. RAD/Chest 1 View (Portable) IMPRESSION: Stable examination. No acute abnormality is seen. Electronically Signed: Rd Hernandez MD at 12:31 EDT ,
--- NOTE | 2024-01-02 11:30 | NURSING ---
1100-Page to Dr Galan regarding pt condition. Informed that pt is whiting, dusky, cold, confused and increase in lethargy following HD. V/o received for CXR, CBC, CMP, & ABG. Dr Galan to bedside to assess pt, labs drawn, CXR obtained. V/o for pt to be placed on bipap, RT in room, placed Bipap on pt. Pt sating 98% on bipap, remains lethargic. Dr Galan called son while in room to update him.
[2024-01-02 11:36] LABS: Absolute Lymphocyte Count 0.37 X10^3/uL (0.83-4.51); Absolute Neutrophil Count 9.3 X10^3/uL (2.0-7.7); Basophil# 0.02 X10^3/uL; Basophil% 0.2 % (0-1); Eosinophil# 0.08 X10^3/uL; Eosinophils% 0.8 % (0-5); Hematocrit 26.1 % (40-54); Hemoglobin 8.1 g/dL (13.0-16.5); Lymphocyte # 0.37 X10^3/ul (0.83-4.51); Lymphocyte % 3.5 % (19-41); Mean Corpuscular Hgb 27.3 pg (27.0-32.0); Mean Corpuscular Volume 87.9 fL (80-94); Mean Platelet Vol. 9.9 fl (6.2-12.0); Monocyte# 0.63 X10^3/uL; NRBC Flagged by Analyzer 0 % (0-5); Neutrophil # 9.34 X10^3/uL (2.7-7.7); Neutrophil % 89.1 % (47-70); POSITIVE DIFFERENTIAL YES; Platelet Count 215 K/mm3 (150-450); RBC Distribution Width CV 18.7 % (11.6-14.6); RBC Distribution Width SD 59.8 fl (35.1-43.9); Red Blood Count 2.97 M/mm3 (4.6-6.2); White Blood Count 10.5 K/mm3 (4.4-11.0)
[2024-01-02 12:16] LABS: ALB/GLOB Ratio 0.7 RATIO (0.9-2.4); AST(SGOT) 10 U/L (15-37); Alanine Aminotransfer ALT/SGPT 16 U/L (16-61); Albumin, Serum 2.6 g/dL (3.2-5.0); Alkaline Phosphatase 91 U/L (45-117); Anion Gap 15 (5-15); BUN 131 mg/dL (7-18); Chloride 101 mmol/L (98-107); Creatinine, Serum 6.55 mg/dL (0.70-1.30); EST Glomerular Filtration Rate 9 mL/min (>60); Est Glom Filt Rate - Afr Amer 11 mL/min (>60); Estimated Creatinine Clearance 11.74 ml/min; Globulin 3.5 g/dL (2.2-4.2); Glucose 171 mg/dL (74-106); Potassium 4.4 mmol/L (3.5-5.1); Protein, Total 6.1 g/dL (6.4-8.2); Sodium Level 138 mmol/L (136-145)
--- NOTE | 2024-01-02 12:17 | PCM.CONS.R ---
Assessment & Plan Assessment/Plan (1) End stage renal disease on dialysis: (2) Anemia of chronic disease: PLAN: Plan This is a 78-year-old male with past medical history significant for ESRD on hemodialysis at [facility] via AV fistula (///TUE), peripheral arterial disease status post left great toe resection secondary to osteomyelitis, heart failure preserved EF, chronic thrombocytopenia, hypertension, A-fib, history of lymphoma and bladder CA, history of GI bleeds who was brought to the emergency room from [facility] for evaluation of fatigue, malaise, generalized weakness. In ER patient was noted to have altered mental status. He was admitted for further evaluation and treatment. Potassium was noted to be 6.6, patient received Kayexalate and IV medications, repeat potassium 4.4 this morning. BUN 202, creatinine 10.50, patient currently undergoing hemodialysis. Possible altered mental status from uremia from missed dialysis. Will evaluate for hemodialysis again tomorrow. Patient is not significantly hypervolemic. Chest x-ray on admission did not show any consolidation or pleural effusions. Patient has history of anemia of chronic disease and receives LUCHO and iron with dialysis. Will monitor hemoglobin trends. Further orders forthcoming as hospitalization evolves, thank you for letting us participate in the care of Mr. Rizvi. HPI Consult Data Date of Consult: 01/02/24 HPI Narrative HPI Narrative: RIA RIZVI, is a 78 M with past medical history significant for ESRD currently dialyzing at [facility] on a Tuesday, Tuesday, , Tuesday schedule who was brought to the emergency room from the care home for evaluation of malaise, generalized discomfort, fatigue. Patient was seen and examined during dialysis session. He is not alert and oriented. Information is gathered from the chart. Last week patient had infiltration of his fistula and underwent fistulogram on 12/28 which showed patent right AV graft with no stenosis. Patient last dialyzed December 28, partial treatment. ON LICENSE OF [facility] Medical History Elevated troponin End-stage renal disease on hemodialysis Anemia Peripheral vascular disease Depression Diabetes Chronic pain Kidney disease Hypertension DVT (deep venous thrombosis) Noncompliance of patient with renal dialysis Thrombocytopenia Elevated troponin Anemia GI bleed Anemia requiring transfusions Chronic anticoagulation Anemia Dialysis patient Coronary artery disease History of GI bleed Loss of hearing Wears glasses Wears partial dentures Wears dentures Cancer Arthritis Low iron Former smoker Sleep apnea History of echocardiogram (~06/30/22) History of stress test (~05/03/22) Cardiology follow-up encounter (~04/04/23) Wide-complex tachycardia Duodenal ulcer Atrial fibrillation Hepatic cyst Iron deficiency anemia ESRD (end stage renal disease) on dialysis Aortic root dilatation Hyperparathyroidism CKD (chronic kidney disease) stage 5, GFR less than 15 ml/min HIT (heparin-induced thrombocytopenia) Bladder cancer HLD (hyperlipidemia) CHF (congestive heart failure) History of pulmonary embolism History of DVT (deep vein thrombosis) History of solitary pulmonary nodule Renal calculus Preop cardiovascular exam Essential hypertension Lymphoma VTE (venous thromboembolism) Lower gastrointestinal bleeding Left upper chest discomfort Home Medications ?Medication ?Instructions ?Recorded ?Last Taken ?Type budesonide 3 mg 6 mg PO DAILY stomach 06/16/23 Unknown History capsule,delayed,extended release vitamin B complex-vitamin C-folic 1 tab PO DAILY supplement 06/16/23 Unknown History acid 0.8 mg tablet (Bibiana-Leoncio) clopidogrel 75 mg tablet 75 mg PO DAILY antiplatelet #0 tabs 06/18/23 Unknown Rx midodrine 5 mg tablet 10 mg PO MOWEFR blood 07/28/23 Unknown History pressure-dialysis amiodarone 200 mg tablet 200 mg PO DAILY heart rate 08/31/23 Unknown History carvedilol 3.125 mg tablet 3.125 mg PO BID HIGH BLOOD PRESSURE 08/31/23 Unknown History pantoprazole 40 mg tablet,delayed 40 mg PO BID reflux 08/31/23 Unknown History release sucralfate 1 gram tablet 1 g PO 4X/DAY reflux 08/31/23 Unknown History acetaminophen 325 mg tablet 650 mg (2 x 325 mg) PO Q6H PRN PRN 09/18/23 Unknown Rx Pain 1-10 Or Fever>100.7 #0 tabs albuterol sulfate 2.5 mg/3 mL 2.5 mg (3 mL) inhalation Q4H PRN 09/18/23 Unknown Rx (0.083 %) solution for nebulization bronchospasm #0 mL menthol 0.44 %-zinc oxide 20.6 % 1 applic topical BID skin #0 grams 09/18/23 Unknown Rx topical ointment (Calmoseptine) atorvastatin 20 mg tablet (Lipitor) 20 mg PO QHS cholesterol 10/22/23 Unknown History bisacodyl 10 mg rectal suppository 10 mg ME DAILY PRN constipation 10/22/23 Unknown History magnesium hydroxide 400 mg/5 mL 30 ml PO DAILY PRN constipation 10/22/23 Unknown History oral suspension (Milk of Magnesia) mineral oil (Fleet Mineral Oil 118 ml ME DAILY PRN constipation 10/22/23 Unknown History enema) ondansetron 4 mg disintegrating 4 mg PO Q6H PRN nausea 10/22/23 Unknown History tablet aluminum-magnesium hydroxide 225 30 ml PO Q4H PRN PRN GI distress 12/12/23 Unknown History mg-200 mg/5 mL oral suspension calcitriol 0.25 mcg capsule 0.75 mcg PO QODAY 12/12/23 Unknown History calcium acetate 667 mg tablet 667 mg PO .ac 12/12/23 Unknown History vitamin B complex-vitamin C-folic 1 tab PO DAILY 12/12/23 Unknown History acid 0.8 mg tablet (Renal Vitamin) ferrous sulfate 325 mg (65 mg 325 mg PO DAILY 01/02/24 Unknown History iron) tablet (Feosol) Allergy/AdvReac Type Severity Reaction Status Date / Time Iodinated Contrast Media Allergy Intermediate KIDNEY Verified 11/11/23 13:08 FAILURE enoxaparin (From Lovenox) Allergy Other Verified 11/11/23 13:08 heparin Allergy Other Verified 11/11/23 13:08 aspirin AdvReac Other Verified 11/11/23 13:08 Family History Father Cancer lung Arrhythmia Brother Cancer Mother Dementia Surgical History History of foot surgery S/P peripheral artery angioplasty with stent placement History of bladder surgery AV fistula History of corrected cleft lip and palate History of tonsillectomy History of cataract extraction H/O total cystectomy Social History (Updated 01/02/24 @ 01:[address] Lisa James MD) household members: none housing: care home Smoking Status: Former smoker how long ago did patient quit smoking: Started age 7, stopped at 17, started again 22 w/ 2 ppd until quit 2008. alcohol intake: never substance use type: does not use caffeine: No ROS ROS Narrative Unable to obtain Physical Exam Narrative No apparent distress S1, S2, RRR Lung sounds diminished, no rales or rhonchi Abdomen soft, + bowel sounds No edema bilateral legs Right arm AV fistula accessed for hemodialysis Lab / Micro Data 01/02/24 11:25 01/02/24 11:25 Labs: Laboratory Results - last 24 hr 01/01/24 23:08: WBC 7.8, RBC 2.83 L, Hgb 7.7 L, Hct 25.3 L, MCV 89.4, MCH 27.2, MCHC 30.4 L, RDW Std Deviation 61.1 H, RDW Coeff of Lencho 18.6 H, Plt Count 218, MPV 10.6, Immature Gran % (Auto) 0.500, Neut % (Auto) 89.4 H, Lymph % (Auto) 4.5 L, [place] % (Auto) 5.2, Eos % (Auto) 0.3, Baso % (Auto) 0.1, Absolute Neuts (auto) 7.0, Absolute Lymphs (auto) 0.35 L, Nucleated RBC % 0, PT 16.9 H, INR 1.4, APTT 51.6 H, Sodium 138, Potassium 6.6 H*, Chloride 100, Carbon Dioxide 25.0, Anion Gap 13, BUN 209 H*, Creatinine 10.40 H*, Estim Creat Clear Calc 6.84, Est GFR (MDRD) Af Amer 6 L, Est GFR (MDRD) Non-Af 5 L, BUN/Creatinine Ratio 20.1 H, Glucose 182 H, Lactic Acid 1.6, Calcium 9.4, Phosphorus 5.3 H 01/01/24 23:08: Phosphorus 5.3 H, Magnesium 2.0 01/01/24 23:08: Magnesium 2.0, Total Bilirubin 0.50, Direct Bilirubin 0.23, AST 7 L, ALT 19, Alkaline Phosphatase 94, Total Protein 5.6 L, Albumin 2.6 L, Globulin 3.0 01/02/24 03:20: WBC 8.4, RBC 2.93 L, Hgb 8.0 L, Hct 26.2 L, MCV 89.4, MCH 27.3, MCHC 30.5 L, RDW Std Deviation 61.0 H, RDW Coeff of Lencho 18.6 H, Plt Count 225, MPV 10.5, Immature Gran % (Auto) 0.500, Neut % (Auto) 85.0 H, Lymph % (Auto) 6.3 L, Isabel[place] % (Auto) 7.6, Eos % (Auto) 0.5, Baso % (Auto) 0.1, Absolute Neuts (auto) 7.2, Absolute Lymphs (auto) 0.53 L, Nucleated RBC % 0, Sodium 139, Potassium 5.9 H, Chloride 99, Carbon Dioxide 25.0, Anion Gap 15, BUN 202 H*, Creatinine 10.50 H*, Estim Creat Clear Calc 7.33, Est GFR (MDRD) Af Amer 6 L, Est GFR (MDRD) Non-Af 5 L, BUN/Creatinine Ratio 19.2, Glucose 135 H, Calcium 10.4 H, Total Bilirubin 0.50, AST 11 L, ALT 19, Alkaline Phosphatase 96, Total Protein 6.2 L, Albumin 2.7 L, Globulin 3.5, Albumin/Globulin Ratio 0.8 L 01/02/24 11:25: WBC 10.5, RBC 2.97 L, Hgb 8.1 L, Hct 26.1 L, MCV 87.9, MCH 27.3, MCHC 31.0 L, RDW Std Deviation 59.8 H, RDW Coeff of Lencho 18.7 H, Plt Count 215, MPV 9.9, Immature Gran % (Auto) 0.400, Neut % (Auto) 89.1 H, Lymph % (Auto) 3.5 L, Isabela % (Auto) 6.0, Eos % (Auto) 0.8, Baso % (Auto) 0.2, Absolute Neuts (auto) 9.3 H, Absolute Lymphs (auto) 0.37 L, Nucleated RBC % 0, Sodium 138, Potassium 4.4, Chloride 101, Carbon Dioxide 22.0, Anion Gap 15, BUN 131 H*, Creatinine 6.55 H, Estim Creat Clear Calc 11.74, Est GFR (MDRD) Af Amer 11 L, Est GFR (MDRD) Non-Af 9 L, BUN/Creatinine Ratio 20.0, Glucose 171 H, Calcium 10.0, Total Bilirubin 0.50, AST 10 L, ALT 16, Alkaline Phosphatase 91, Total Protein 6.1 L, Albumin 2.6 L, Globulin 3.5, Albumin/Globulin Ratio 0.7 L Micro: Microbiology 01/01/24 23:21 Mucosa - Nose SARS-CoV-2, Influenza & RSV (PCR) - Final Imaging Radiology Impression Chest X-Ray 01/01/24 23:20 IMPRESSION: Stable changes of chronic interstitial fibrosis. No acute consolidative process. Electronically Signed: Edwin Santoyo MD at 0:19 EDT ,
--- NOTE | 2024-01-02 13:54 | WOUNDNOTE ---
Was consulted on patient for pressure injury to the sacrum. nursing states patient has been very SOB and somewhat unstable at this time. pt does appear SOB. will wait to assess when patient appears more comfortable.
--- NOTE | 2024-01-02 14:42 | CASEMGMT ---
Discharge Planning Updates sent to [facility] via [employer]. Na Gordon DC Planning Asst.
--- NOTE | 2024-01-02 15:46 | PCM.HOSP.N ---
Hospitalist Note Patient presented with fatigue, malaise, general discomfort and altered mental status, he missed dialysis due to fistula infiltration and patient came to ED due to worsening clinical status and was found to have potassium of 6.6, creatinine 10.4 and BUN greater than 200, patient given K lowering cocktail and admitted. Patient underwent dialysis 01/02/2024, called at the end of patient's dialysis session due to decreased alertness and some increased work of breathing, patient would open eyes but not particularly following commands, stat labs and chest x-ray obtained and given work of breathing patient placed on BiPAP, labs better than on presentation and patient is waking up somewhat more on BiPAP, protecting airway, still not significantly following commands but better than earlier. Discussed earlier with patient's son Paul and he verbalized understanding of patient's present clinical status. Also discussed with nephrology. Patient at time of initial evaluation and on reevaluation was vitally stable with adequate MAP and heart rate within normal limits as well as O2 sat
--- NOTE | 2024-01-02 16:12 | CHAPLAIN ---
Type of Pastoral Visit ___ Initial Visit ___ Follow-up Visit ___ On-call Visit ___ General Patient Visit ___ Spiritual Assessment ___ Family Conference ___ Bereavement ___ Rapid Response ___ Code Blue ___ Other (describe below) Pastoral Care Referral From ___ Patient ___ Family ___ Nurse ___ Physician ___ Scanning Supervisor ___ Nurse Supervisor ___ Other (describe below) Sacrament/Intervention ___ Active listening ___ Anointing ___ Taoist ___ Bereavement ___ Communion ___ Klarissa exploration ___ ___ Life review ___ Prayer ___ Reconciliation ___ Sacrament of Sick ___ Supportive presence ___ Wedding ___ Other (describe below) Pastoral Comments patient was sleeping with a bi-pap machine and was not disturbed
--- NOTE | 2024-01-02 16:55 | CT_ITS ---
EXAM: CT HEAD WITHOUT INTRAVENOUS CONTRAST CLINICAL INDICATION: Change in mental status TECHNIQUE: Multiple axial images were obtained of the head without intravenous contrast. This CT exam was performed using one or more of the following dose reduction techniques: automated exposure control, adjustment of the mA and/or kV according to patient size, and/or use of iterative reconstruction technique. 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 There is hypoattenuation in the white matter. There is mild enlargement of ventricular system and cortical sulci. No intra- or extra-axial hemorrhage. No intracranial mass or mass effect. Posterior fossa structures are unremarkable. Basal cisterns are patent. BONES/JOINTS: Unremarkable. No discrete lytic or blastic abnormalities. SINUSES: Unremarkable as visualized. Clear. MASTOID AIR CELLS: Unremarkable. Clear. ORBITS: Visualized globes, extraocular muscles, optic nerves and retrobulbar fat appear unremarkable. CT/Brain/Head without Contrast IMPRESSION: 1. No acute intracranial abnormality. There has been no change from the reference exam. 2. Senescent change with small vessel ischemia. Electronically Signed: Franco Hu MD at 18:41 EDT ,
--- NOTE | 2024-01-02 17:38 | NURSING ---
[address] on 4L NC. Spo2 maintained mid 90's. Brought back to room and placed back on bipap.
[2024-01-02] MEDS: 0.9% Saline Lock 10 ML Syringe IV (20:28)
[2024-01-03] VITALS (23 sets, daily range): BP systolic 95–301; BP diastolic 44–109; PULSE 82–124; RESP 12–26; TEMP 35.6–36.7; O2SAT 94–100; BMI 37.0; BMI 36.4
[2024-01-03] MEDS: oxyCODONE 5 MG Tablet 2.5 MG PO (03:23)
[2024-01-03 07:57] LABS: Absolute Lymphocyte Count 0.75 X10^3/uL (0.83-4.51); Absolute Neutrophil Count 6.6 X10^3/uL (2.0-7.7); Basophil# 0.03 X10^3/uL; Basophil% 0.4 % (0-1); Eosinophil# 0.15 X10^3/uL; Eosinophils% 1.8 % (0-5); Hematocrit 27.2 % (40-54); Hemoglobin 8.3 g/dL (13.0-16.5); Lymphocyte # 0.75 X10^3/ul (0.83-4.51); Mean Corp Hgb Conc 30.5 g/dL (32-36); Mean Corpuscular Hgb 27.2 pg (27.0-32.0); Mean Corpuscular Volume 89.2 fL (80-94); Mean Platelet Vol. 10.1 fl (6.2-12.0); Monocyte# 0.78 X10^3/uL; Monocyte% 9.4 % (0-10); NRBC Flagged by Analyzer 0 % (0-5); Neutrophil # 6.55 X10^3/uL (2.7-7.7); Platelet Count 227 K/mm3 (150-450); RBC Distribution Width CV 19.1 % (11.6-14.6); RBC Distribution Width SD 62.2 fl (35.1-43.9); Red Blood Count 3.05 M/mm3 (4.6-6.2); White Blood Count 8.3 K/mm3 (4.4-11.0)
[2024-01-03] MEDS: 0.9% Normal Saline 1,000 ML IV.SOLN. 1000 ML OPERA.SITE (08:25)
[2024-01-03] MEDS: PureFlow B 2K Dialysis Soln 1 BAG 6 BAG PF (08:25)
[2024-01-03 08:32] LABS: Anion Gap 12 (5-15); BUN 147 mg/dL (7-18); BUN/Creat Ratio 17.4 RATIO (10-20); Calcium,Total 9.6 mg/dL (8.5-10.1); Chloride 101 mmol/L (98-107); Creatinine, Serum 8.43 mg/dL (0.70-1.30); EST Glomerular Filtration Rate 7 mL/min (>60); Est Glom Filt Rate - Afr Amer 8 mL/min (>60); Estimated Creatinine Clearance 9.12 ml/min; Glucose 82 mg/dL (74-106); Potassium 5.1 mmol/L (3.5-5.1); Sodium Level 139 mmol/L (136-145)
--- NOTE | 2024-01-03 11:08 | PCM.PN.REN ---
Subjective Subjective Seen and examined on dialysis. Patient tolerating dialysis well. He remains on BiPAP. More alert today. No overnight events. Objective Data Objective Data Vital Signs: Vital Signs Temp Pulse Resp BP Pulse Ox O2 Del Method O2 Flow Rate 97.9 F 101 H 20 H 124/98 H 96 Nasal Cannula 5 01/03/24 10:30 01/03/24 10:30 01/03/24 10:30 01/03/24 10:30 01/03/24 10:30 01/03/24 10:30 01/03/24 10:30 FiO2 30 01/03/24 10:29 Oxygen Flow Rate (L/min) 5 Oxygen Delivery Method Nasal Cannula Weight: 113.7 kg Body Mass Index (BMI) 37.0 Intake & Output: Intake and Output for Last 24 Hours 01/01/24 01/02/24 01/03/24 23:59 23:59 23:59 Intake Total 750 / 750 0 / 0 Output Total 1630 / 1630 0 / 0 Balance -880 / -880 0 / 0 Lab / Micro Data 01/03/24 07:31 01/03/24 07:31 Labs: Laboratory Results - last 24 hr 01/02/24 11:25: WBC 10.5, RBC 2.97 L, Hgb 8.1 L, Hct 26.1 L, MCV 87.9, MCH 27.3, MCHC 31.0 L, RDW Std Deviation 59.8 H, RDW Coeff of Lencho 18.7 H, Plt Count 215, MPV 9.9, Immature Gran % (Auto) 0.400, Neut % (Auto) 89.1 H, Lymph % (Auto) 3.5 L, [place] % (Auto) 6.0, Eos % (Auto) 0.8, Baso % (Auto) 0.2, Absolute Neuts (auto) 9.3 H, Absolute Lymphs (auto) 0.37 L, Nucleated RBC % 0, Sodium 138, Potassium 4.4, Chloride 101, Carbon Dioxide 22.0, Anion Gap 15, BUN 131 H*, Creatinine 6.55 H, Estim Creat Clear Calc 11.74, Est GFR (MDRD) Af Amer 11 L, Est GFR (MDRD) Non-Af 9 L, BUN/Creatinine Ratio 20.0, Glucose 171 H, Calcium 10.0, Total Bilirubin 0.50, AST 10 L, ALT 16, Alkaline Phosphatase 91, Total Protein 6.1 L, Albumin 2.6 L, Globulin 3.5, Albumin/Globulin Ratio 0.7 L 01/03/24 07:31: WBC 8.3, RBC 3.05 L, Hgb 8.3 L, Hct 27.2 L, MCV 89.2, MCH 27.2, MCHC 30.5 L, RDW Std Deviation 62.2 H, RDW Coeff of Lencho 19.1 H, Plt Count 227, MPV 10.1, Immature Gran % (Auto) 0.400, Neut % (Auto) 79.0 H, Lymph % (Auto) 9.0 L, [place] % (Auto) 9.4, Eos % (Auto) 1.8, Baso % (Auto) 0.4, Absolute Neuts (auto) 6.6, Absolute Lymphs (auto) 0.75 L, Nucleated RBC % 0, Sodium 139, Potassium 5.1, Chloride 101, Carbon Dioxide 26.0, Anion Gap 12, BUN 147 H*, Creatinine 8.43 H*, Estim Creat Clear Calc 9.12, Est GFR (MDRD) Af Amer 8 L, Est GFR (MDRD) Non-Af 7 L, BUN/Creatinine Ratio 17.4, Glucose 82, Calcium 9.6 Micro: Microbiology 01/01/24 23:21 Mucosa - Nose SARS-CoV-2, Influenza & RSV (PCR) - Final Radiography Diagnostic Testing: Radiology Impression Chest X-Ray 01/02/24 11:15 IMPRESSION: Stable examination. No acute abnormality is seen. Electronically Signed: dR Hernandez MD at 12:31 EDT , Brain CT 01/02/24 16:55 IMPRESSION: 1. No acute intracranial abnormality. There has been no change from the reference exam. 2. Senescent change with small vessel ischemia. Electronically Signed: Franco Hu MD at 18:41 EDT , Physical Exam Narrative Alert, nonverbal. No apparent distress S1, S2, RRR Lung sounds diminished, no rales or rhonchi. On BiPAP Abdomen soft, + bowel sounds No edema bilateral legs Right arm AV fistula accessed for hemodialysis Assessment & Plan Assessment/Plan (1) End stage renal disease on dialysis: (2) Anemia of chronic disease: (3) AMS (altered mental status): QUALIFIERS: Altered mental status type: unspecified Qualified Code(s): R41.82 - Altered mental status, unspecified PLAN: Plan This is a 78-year-old male with past medical history significant for ESRD on hemodialysis at [facility] via AV fistula (//TUE), peripheral arterial disease status post left great toe resection secondary to osteomyelitis, heart failure preserved EF, chronic thrombocytopenia, hypertension, A-fib, history of lymphoma and bladder CA, history of GI bleeds who was brought to the emergency room from [facility] for evaluation of fatigue, malaise, generalized weakness. Admitted for further evaluation and treatment for altered mental status. -ESRD; hemodialysis at [facility] ///. Patient underwent hemodialysis yesterday but only able to tolerate around 2 hours. Undergoing hemodialysis today for around 4 hours and attempting around 1.5 L fluid removal as patient/blood pressure tolerates. Patient more alert today than yesterday. Will evaluate for hemodialysis tomorrow for clearance and or fluid removal. Patient has history of intradialytic hypotension and takes midodrine, however due to altered mental status patient not taking anything by mouth at this time therefore fluid removal with dialysis currently minimal. -AMS; possibly secondary to uremia. Brain CT no acute findings. Hope to see further improvement in mentation following dialysis/ clearance with dialysis. -Anemia of chronic disease; Hb 8.3. Will monitor hemoglobin trends. -Hypotension; blood pressures were low but have improved. He is not on any antihypertensives.
--- NOTE | 2024-01-03 11:11 | WOUNDNOTE ---
Pt is currently on dialysis. will assess buttocks and hip this afternoon once off treatment.
--- NOTE | 2024-01-03 12:06 | CASEMGMT ---
Social Work SW sent a message in [facility] to [facility] asking them to fax over LW/POA documents. OMER Dickson
--- NOTE | 2024-01-03 14:08 | WOUNDNOTE ---
wound photo: left hip
--- NOTE | 2024-01-03 14:08 | WOUNDNOTE ---
wound photo: right buttock
--- NOTE | 2024-01-03 15:09 | CHAPLAIN ---
Type of Pastoral Visit _x__ Initial Visit ___ Follow-up Visit ___ On-call Visit ___ General Patient Visit ___ Spiritual Assessment ___ Family Conference ___ Bereavement ___ Rapid Response ___ Code Blue ___ Other (describe below) Pastoral Care Referral From _x__ Patient ___ Family ___ Nurse ___ Physician ___ Methods And Procedures Analyst ___ Patient Access ___ Other (describe below) Sacrament/Intervention ___ Active listening ___ Anointing ___ Judaism ___ Bereavement ___ Communion ___ Klarissa exploration ___ ___ Life review ___ Prayer ___ Reconciliation ___ Sacrament of Sick _x__ Supportive presence ___ Wedding ___ Other (describe below) Pastoral Comments calming presence and speaking to patient who is unable to speak due to bi-pap machine; pt is reminded of who the church history professor is as he has been seen numerous times in previous admissions;
--- NOTE | 2024-01-03 17:00 | PCM.PN.HOSP ---
Reason for Visit Reason for Visit: Diagnoses Anemia in other chronic diseases classified elsewhere (01/02/24) Hyperkalemia (01/02/24) End stage renal disease (01/02/24) Dependence on renal dialysis (01/02/24) Subjective Subjective This morning patient was awake and answered questions, did become less purposefully interactive after dialysis with similar presentation as yesterday Objective Data Objective Data Vital Signs: Vital Signs Temp Pulse Resp BP Pulse Ox O2 Del Method O2 Flow Rate 98.1 F 98 18 116/63 99 Bi-pap 5 01/03/24 16:04 01/03/24 16:04 01/03/24 16:04 01/03/24 16:04 01/03/24 16:04 01/03/24 16:04 01/03/24 10:30 FiO2 30 01/03/24 16:04 Oxygen Flow Rate (L/min) 5 Oxygen Delivery Method Bi-pap Weight: 112 kg Body Mass Index (BMI) 36.4 Intake & Output: Intake and Output for Last 24 Hours 01/01/24 01/02/24 01/03/24 23:59 23:59 23:59 Intake Total 750 / 750 0 / 0 Output Total 1630 / 1630 1700 / 1700 Balance -880 / -880 -1700 / -1700 Lab / Micro Data 01/03/24 07:31 01/03/24 07:31 Labs: Laboratory Results - last 24 hr 01/03/24 07:31: WBC 8.3, RBC 3.05 L, Hgb 8.3 L, Hct 27.2 L, MCV 89.2, MCH 27.2, MCHC 30.5 L, RDW Std Deviation 62.2 H, RDW Coeff of Lencho 19.1 H, Plt Count 227, MPV 10.1, Immature Gran % (Auto) 0.400, Neut % (Auto) 79.0 H, Lymph % (Auto) 9.0 L, [place] % (Auto) 9.4, Eos % (Auto) 1.8, Baso % (Auto) 0.4, Absolute Neuts (auto) 6.6, Absolute Lymphs (auto) 0.75 L, Nucleated RBC % 0, Sodium 139, Potassium 5.1, Chloride 101, Carbon Dioxide 26.0, Anion Gap 12, BUN 147 H*, Creatinine 8.43 H*, Estim Creat Clear Calc 9.12, Est GFR (MDRD) Af Amer 8 L, Est GFR (MDRD) Non-Af 7 L, BUN/Creatinine Ratio 17.4, Glucose 82, Calcium 9.6 Micro: Microbiology 01/01/24 23:21 Mucosa - Nose SARS-CoV-2, Influenza & RSV (PCR) - Final Radiography Diagnostic Testing: Radiology Impression Brain CT 01/02/24 16:55 IMPRESSION: 1. No acute intracranial abnormality. There has been no change from the reference exam. 2. Senescent change with small vessel ischemia. Electronically Signed: Franco Hu MD at 18:41 EDT , Physical Exam Narrative General: Patient will open eyes and respond to stimulation but does not answer purposeful questions HEENT: Atraumatic Eyes: Anicteric Neck: Supple Respiratory: Some increased respiratory effort, slightly diminished at bases Cardiovascular: Regular rate GI: Soft, nontender, nondistended Extremities: No edema, some chronic changes on the left lower extremity more so than right Musculoskeletal: Moving all extremities Neuro: No overt focal neurological deficits but patient unable to participate in neuroexam Skin: Some chronic changes on left lower extremity Psych: Difficulty cooperating with mental status Assessment & Plan Assessment/Plan (1) End stage renal disease on dialysis: (2) Anemia of chronic disease: (3) AMS (altered mental status): QUALIFIERS: Altered mental status type: unspecified Qualified Code(s): R41.82 - Altered mental status, unspecified PLAN: Plan #Encephalopathy, likely metabolic -On day of presentation patient had worsening mental status postdialysis and would not purposefully follow commands, protecting airway and improved on BiPAP and this a.m. was awake and answering questions, similar presentation throughout the day today-, would wake up but not answering questions consistently, protecting airway and placed back on BiPAP -Suspect some encephalopathy is can attributed to uremia however given patient worsens midday after dialysis do not think this fully explains his encephalopathy as you anticipate this will get better after dialysis -ABG was unable to be obtained yesterday due to poor peripheral pulses but patient did improve on BiPAP and overnight -May need to reattempt ABG pending patient progress or decompensation and will reevaluate in a.m., presently protecting airway resting comfortably on BiPAP and wakes up but does not answer appropriately -Did perform CT head on 01/01 due to his mental status and this did not show any acute process -Patient afebrile, white blood cell count within normal limits, and overall has been vitally stable so low suspicion for new or active infection especially given waxing and waning -May be component of delirium even just due to patient being in the hospital and chronically ill -Continue to monitor and evaluate -Discussed goals of care with patient's son, family will be in to see patient today, discussed that we will revisit goals of care tomorrow pending patient status -Presently patient is n.p.o., as mental status improves can retrial p.o. #ESRD on HD and uremia -Pt w/ hyperkalemia on presentation and received K lowering cocktail and underwent dialysis 01/01 as well as 01/02 -Nephrology following -Renal diet #Hx vte/pe/afib -Not on systemic anticoagulation -Patient unable to take p.o. right now with his mental status, will switch amnio to IV # PAD -Patient on Plavix #DVT ppx: SCDs given history of HIT Felicitas Galan MD Time spent in the patient's overall evaluation,decision-making process, review of diagnostic data, adjustment of management, discussion with other providers, nursing nursing and ancillary staff involved in patient's care documentation, 37 minutes Charges/Coding Visit Charges Inpatient E&M: 12243 Subs Hosp L2
[2024-01-03] MEDS: WATER IV (17:28)
[2024-01-03] MEDS: DEXTROSE 5% IV (17:28)
[2024-01-03] MEDS: AMIODARONE IV (17:28)
[2024-01-03] MEDS: 0.9% Saline Lock 10 ML Syringe IV ×2 (17:29→21:42)
[2024-01-04] VITALS (8 sets, daily range): BP systolic 113–135; BP diastolic 62–80; PULSE 88–104; RESP 12–18; TEMP 36–36.7; O2SAT 96–100; BMI 29.2
[2024-01-04] MEDS: Sucralfate 1 GM Tablet PO (06:25)
[2024-01-04] MEDS: Calcium Acetate 667 MG Capsule PO (06:25)
[2024-01-04 07:05] LABS: Absolute Lymphocyte Count 0.44 X10^3/uL (0.83-4.51); Absolute Neutrophil Count 7.3 X10^3/uL (2.0-7.7); Basophil# 0.03 X10^3/uL; Basophil% 0.3 % (0-1); Eosinophil# 0.06 X10^3/uL; Eosinophils% 0.7 % (0-5); Hematocrit 27.3 % (40-54); Hemoglobin 8.3 g/dL (13.0-16.5); Lymphocyte # 0.44 X10^3/ul (0.83-4.51); Mean Corp Hgb Conc 30.4 g/dL (32-36); Mean Corpuscular Hgb 27.2 pg (27.0-32.0); Mean Corpuscular Volume 89.5 fL (80-94); Mean Platelet Vol. 10.3 fl (6.2-12.0); Monocyte# 0.99 X10^3/uL; Monocyte% 11.2 % (0-10); NRBC Flagged by Analyzer 0 % (0-5); Neutrophil # 7.27 X10^3/uL (2.7-7.7); Neutrophil % 82.2 % (47-70); POSITIVE DIFFERENTIAL YES; Platelet Count 224 K/mm3 (150-450); RBC Distribution Width CV 18.7 % (11.6-14.6); RBC Distribution Width SD 60.9 fl (35.1-43.9); Red Blood Count 3.05 M/mm3 (4.6-6.2); White Blood Count 8.8 K/mm3 (4.4-11.0)
[2024-01-04 07:40] LABS: Anion Gap 15 (5-15); BUN 97 mg/dL (7-18); BUN/Creat Ratio 15.4 RATIO (10-20); Calcium,Total 9.6 mg/dL (8.5-10.1); Chloride 99 mmol/L (98-107); Creatinine, Serum 6.28 mg/dL (0.70-1.30); EST Glomerular Filtration Rate 9 mL/min (>60); Est Glom Filt Rate - Afr Amer 11 mL/min (>60); Estimated Creatinine Clearance 10.93 ml/min; Glucose 81 mg/dL (74-106); Sodium Level 138 mmol/L (136-145)
--- NOTE | 2024-01-04 09:30 | PN.HOSP_ITS ---
Reason for Visit Reason for Visit: Diagnoses Anemia in other chronic diseases classified elsewhere (01/02/24) Hyperkalemia (01/02/24) End stage renal disease (01/02/24) Altered mental status, unspecified (01/02/24) Dependence on renal dialysis (01/02/24) Subjective Subjective Has continued to wax and wane, was not answering most questions this a.m. however by afternoon patient was able to answer most questions appropriately, initially indicated that he did not want to continue dialysis however became tearful and then said he was not sure, patient to discuss with his family regarding plans moving forward. Patient denied pain anywhere and reports his breathing comes and goes but denies any focal complaints Objective Data Objective Data Vital Signs: Vital Signs Temp Pulse Resp BP Pulse Ox O2 Del Method O2 Flow Rate 97.4 F L 91 16 135/79 H 100 Nasal Cannula 3 01/04/24 08:00 01/04/24 08:00 01/04/24 08:00 01/04/24 08:00 01/04/24 08:00 01/04/24 08:00 01/04/24 08:00 FiO2 30 01/04/24 07:49 Oxygen Flow Rate (L/min) 3 Oxygen Delivery Method Nasal Cannula Weight: 90 kg Body Mass Index (BMI) 29.2 Intake & Output: Intake and Output for Last 24 Hours 01/02/24 01/03/24 01/04/24 23:59 23:59 23:59 Intake Total 750 / 750 102 / 102 240 / 240 Output Total 1630 / 1630 1700 / 1700 0 / 0 Balance -880 / -880 -1598 / -1598 240 / 240 Lab / Micro Data 01/04/24 06:23 01/04/24 06:23 Labs: Laboratory Results - last 24 hr 01/04/24 06:23: WBC 8.8, RBC 3.05 L, Hgb 8.3 L, Hct 27.3 L, MCV 89.5, MCH 27.2, MCHC 30.4 L, RDW Std Deviation 60.9 H, RDW Coeff of Lencho 18.7 H, Plt Count 224, MPV 10.3, Immature Gran % (Auto) 0.600, Neut % (Auto) 82.2 H, Lymph % (Auto) 5.0 L, [place] % (Auto) 11.2 H, Eos % (Auto) 0.7, Baso % (Auto) 0.3, Absolute Neuts (auto) 7.3, Absolute Lymphs (auto) 0.44 L, Nucleated RBC % 0, Sodium 138, Potassium 4.0, Chloride 99, Carbon Dioxide 24.0, Anion Gap 15, BUN 97 H, C reatinine 6.28 H, Estim Creat Clear Calc 10.93, Est GFR (MDRD) Af Amer 11 L, Est GFR (MDRD) Non-Af 9 L, BUN/Creatinine Ratio 15.4, Glucose 81, Calcium 9.6, Magnesium 2.0 Micro: Microbiology 01/01/24 23:21 Mucosa - Nose SARS-CoV-2, Influenza & RSV (PCR) - Final Physical Exam Narrative General: Patient more alert and answering questions in the afternoon, answered multiple questions appropriately and was joking, at times did not answer questions however it seemed somewhat selective HEENT: Atraumatic Eyes: Anicteric Neck: Supple Respiratory: Some increased respiratory effort, slightly diminished at bases Cardiovascular: Regular rate GI: Soft, nontender, nondistended Extremities: No edema, some chronic changes on the left lower extremity more so than right Musculoskeletal: Moving all extremities Neuro: No overt focal neurological deficits Skin: Some chronic changes on left lower extremity Psych: Patient cooperative and making jokes Assessment & Plan Assessment/Plan (1) End stage renal disease on dialysis: (2) Anemia of chronic disease: (3) AMS (altered mental status): QUALIFIERS: Altered mental status type: unspecified Qualified Code(s): R41.82 - Altered mental status, unspecified PLAN: Plan #Encephalopathy, likely metabolic -On day of presentation patient had worsening mental status postdialysis and would not purposefully follow commands, protecting airway and improved on BiPAP and this a.m. was awake and answering questions, similar presentation throughout the day today-, would wake up but not answering questions consistently, protecting airway and placed back on BiPAP -Suspect some encephalopathy is can attributed to uremia however given patient worsens midday after dialysis do not think this fully explains his encephalopathy as you anticipate this will get better after dialysis -ABG was unable to be obtained yesterday due to poor peripheral pulses but patient did improve on BiPAP and overnight -May need to reattempt ABG pending patient progress or decompensation and will reevaluate in a.m., presently protecting airway resting comfortably on BiPAP and wakes up but does not answer appropriately -Did perform CT head on 01/01 due to his mental status and this did not show any acute process -Patient afebrile, white blood cell count within normal limits, and overall has been vitally stable so low suspicion for new or active infection especially given waxing and waning -May be component of delirium even just due to patient being in the hospital and chronically ill -Continue to monitor and evaluate -Discussed goals of care with patient's son, family will be in to see patient today, discussed that we will revisit goals of care tomorrow pending patient status -Presently patient is n.p.o., as mental status improves can retrial p.o. -01/03: Mental status improved this afternoon and patient joking and singing, answers most questions appropriately but sometimes will not answer, did discuss dialysis and patient initially said he did not want to continue this and when asked what would happen if this was not continued he said he would . Discussed goals of care and hospice and patient ultimately became tearful and then was not yet ready to make this decision, advised to discuss with family and let us know but will continue current plan of care unless other decisions are made #ESRD on HD and uremia -Pt w/ hyperkalemia on presentation and received K lowering cocktail and underwent dialysis 01/01 as well as 01/02 -Nephrology following -Renal diet -01/03: Mental status improved this afternoon, for dialysis tomorrow #Hx vte/pe/afib -Not on systemic anticoagulation -Patient unable to take p.o. right now with his mental status, will switch amio to IV -01/03: Bedside swallow, can work on p.o. medication and food if patient passes given mental status improved # PAD -Patient on Plavix -01/03: Some chronic changes in lower extremities but these seem consistent over the past several days #DVT ppx: SCDs given history of HIT Felicitas Galan MD Time spent in the patient's overall evaluation,decision-making process, review of diagnostic data, adjustment of management, discussion with other providers, nursing nursing and ancillary staff involved in patient's care documentation, 35 minutes Charges/Coding Visit Charges Inpatient E&M: 04450 Subs Hosp L2
--- NOTE | 2024-01-04 09:32 | PCM.HOSP.N ---
Hospitalist Note Discussed with family regarding patient's current status and prognosis, presently continue current management however family will discuss and consider hospice. Did confirm patient to be made DNR/DNI, patient unable to answer questions consistently at this time or make his own medical decisions
[2024-01-04] MEDS: DEXTROSE 5% IV (10:07)
[2024-01-04] MEDS: WATER IV (10:07)
[2024-01-04] MEDS: AMIODARONE IV (10:07)
[2024-01-04] MEDS: 0.9% Saline Lock 10 ML Syringe IV ×2 (10:25→20:24)
--- NOTE | 2024-01-04 14:50 | CHAPLAIN ---
Type of Pastoral Visit ___ Initial Visit _x__ Follow-up Visit ___ On-call Visit ___ General Patient Visit ___ Spiritual Assessment ___ Family Conference ___ Bereavement ___ Rapid Response ___ Code Blue ___ Other (describe below) Pastoral Care Referral From _x__ Patient ___ Family ___ Nurse ___ Physician ___ Tax Appraiser ___ Postal Superintendent ___ Other (describe below) Sacrament/Intervention _x__ Active listening ___ Anointing ___ Hindu ___ Bereavement ___ Communion ___ Klarissa exploration ___ ___ Life review _x__ Prayer ___ Reconciliation ___ Sacrament of Sick _x__ Supportive presence ___ Wedding ___ Other (describe below) Pastoral Comments patient is awake and alert although he admits that he is very weak and not sure what to do now; son, DIL, and two granddaughters are in the room; pt is offered support and he states I'm not sure what I need; pt welcomes a prayer but acknowledges that he is weak; the son fills in some of the details; family members are offered prayer support as well;
--- NOTE | 2024-01-04 18:24 | PCM.HOSP.N ---
Hospitalist Note Spoke with patient and family earlier regarding goals and dialysis and options regarding continuing present management or hospice, patient much more awake and alert and answering questions appropriately, patient recalls conversation from earlier was able to verbalize that and made the consistent choice that he did not want dialysis any longer and wanted hospice consult. Discussed canceling morning labs and beginning to focus on comfort and patient and family agreeable. Hospice consult placed, will notify nephrology
[2024-01-04] MEDS: Pantoprazole Sodium 40 MG Tablet PO (20:23)
[2024-01-04] MEDS: Menthol/Lanolin/Calamine/Znox 113 GM Tube 1 APPLIC TOPICAL (20:23)
--- NOTE | 2024-01-04 21:34 | NURSING ---
Order placed for cathflo by dayshift RN for port that would not draw. Upon assessment, port flushes easily and when adjusted, it will draw blood easily as well. Cathflo not placed in port at this time.
--- NOTE | 2024-01-05 01:00 | CPS ---
Patient awake and agitated at this time. Will attempt PAP therapy at later time.
[2024-01-05 02:00] VITALS: BP 118/65; PULSE 92; RESP 17; TEMP 36.4; O2SAT 94
[2024-01-05 02:41] VITALS: BMI 36.3
[2024-01-05] MEDS: 0.9% Saline Lock 10 ML Syringe IV ×2 (06:31→10:07)
[2024-01-05] MEDS: Calcium Acetate 667 MG Capsule PO ×3 (06:31→15:41)
[2024-01-05 08:06] VITALS: O2SAT 99
[2024-01-05] MEDS: Clopidogrel Bisulfate 75 MG Tablet PO (09:26)
[2024-01-05] MEDS: Pantoprazole Sodium 40 MG Tablet PO (09:26)
[2024-01-05] MEDS: Menthol/Lanolin/Calamine/Znox 113 GM Tube 1 APPLIC TOPICAL (09:26)
--- NOTE | 2024-01-05 09:26 | CASEMGMT ---
Physician put in referral for Hospice. SW called patient's son Devon and confirmed that they would like to talk with Hospice. SW explained how the process works and that he should be expecting a phone call from Hospice to arrange a meeting. SW called Hospice and spoke with regarding referral. SW also faxed information to Hospice. Abbie Jordan CRISIS MANAGER TITO
--- NOTE | 2024-01-05 10:04 | WOUNDNOTE ---
Pt and family have decided to consult with Hospice care. foam dressings can be changed every 3 to 5 days to the left hip and right buttock.
[2024-01-05 10:05] VITALS: BP 123/51; PULSE 91; RESP 18; TEMP 36.8; O2SAT 99
[2024-01-05] MEDS: WATER IV (10:07)
[2024-01-05] MEDS: AMIODARONE IV (10:07)
[2024-01-05] MEDS: DEXTROSE 5% IV (10:07)
--- NOTE | 2024-01-05 10:57 | CASEMGMT ---
SW received a call from Hospice and they will be meeting with patient and family today at 4p. SW notified tank charger and will notify RN and physician. Abbie FRANCIS
--- NOTE | 2024-01-05 13:19 | PN.RENAL_ITS ---
Subjective Subjective Resting in bed. No overnight events. Family member at bedside. Objective Data Objective Data Vital Signs: Vital Signs Temp Pulse Resp BP Pulse Ox O2 Del Method O2 Flow Rate 98.2 F 91 18 123/51 H 99 Nasal Cannula 3 01/05/24 10:05 01/05/24 10:05 01/05/24 10:05 01/05/24 10:05 01/05/24 10:05 01/05/24 10:05 01/05/24 10:05 FiO2 30 01/04/24 14:00 Oxygen Flow Rate (L/min) 3 Oxygen Delivery Method Nasal Cannula Weight: 111.5 kg Body Mass Index (BMI) 36.3 Intake & Output: Intake and Output for Last 24 Hours 01/03/24 01/04/24 01/05/24 23:59 23:59 23:59 Intake Total 102 / 102 582 / 632 602 / 602 Output Total 1700 / 1700 0 / 0 Balance -1598 / -1598 582 / 632 602 / 602 Lab / Micro Data 01/04/24 06:23 01/04/24 06:23 Micro: Microbiology 01/01/24 23:21 Mucosa - Nose SARS-CoV-2, Influenza & RSV (PCR) - Final Physical Exam Narrative Resting in bed. No apparent distress no edema Right arm AV fistula Assessment & Plan Assessment/Plan (1) End stage renal disease on dialysis: (2) Anemia of chronic disease: (3) AMS (altered mental status): QUALIFIERS: Altered mental status type: unspecified Qualified Code(s): R41.82 - Altered mental status, unspecified PLAN: Plan This is a 78-year-old male with past medical history significant for ESRD on hemodialysis at [facility] via AV fistula (//TUE), peripheral arterial disease status post left great toe resection secondary to osteomyelitis, heart failure preserved EF, chronic thrombocytopenia, hypertension, A-fib, history of lymphoma and bladder CA, history of GI bleeds who was brought to the emergency room from [facility] for evaluation of fatigue, malaise, generalized weakness. Admitted for further evaluation and treatment for altered mental status. -ESRD; hemodialysis at [facility] ///. Patient underwent hemodialysis last few days with no significant improvement in clinical status. No hemodialysis today. -AMS; possibly secondary to uremia. CT brain no acute findings -Anemia of chronic disease; Hb 8.3. -Hypotension; blood pressures were low but have improved. He is not on any antihypertensives. -Not much improvement in patient's clinical condition, patient's CODE STATUS changed to DNR CCA no intubation. Family and patient meeting with hospice to enroll in hospice program with no hemodialysis. Will sign off. Will update dialysis staff at [facility]. Please contact us as needed.
--- NOTE | 2024-01-05 15:05 | CASEMGMT ---
SW let [facility] know that patient is meeting with Hospice today at 4p. SW let [facility] know that patient may return today or he may go to the inpatient hospice unit. SW will be gone for the day. [facility] is aware that patient may return today on Hospice. will leave a green sheet on patient's chart with instructions should he go back to [facility] and not the inpatient Hospice unit. Plan: D/c on Hospice to [facility] or inpatient Hospice unit. Abbie FRANCIS
--- NOTE | 2024-01-05 18:13 | PCM.PN.HOSP ---
Reason for Visit Reason for Visit: Diagnoses Anemia in other chronic diseases classified elsewhere (01/02/24) Hyperkalemia (01/02/24) End stage renal disease (01/02/24) Altered mental status, unspecified (01/02/24) Dependence on renal dialysis (01/02/24) Subjective Subjective Patient with no acute complaints today, awaiting hospice meeting Objective Data Objective Data Vital Signs: Vital Signs Temp Pulse Resp BP Pulse Ox O2 Del Method O2 Flow Rate 98.2 F 91 18 123/51 H 99 Nasal Cannula 3 01/05/24 10:05 01/05/24 10:05 01/05/24 10:05 01/05/24 10:05 01/05/24 10:05 01/05/24 14:36 01/05/24 14:36 FiO2 30 01/04/24 14:00 Oxygen Flow Rate (L/min) 3 Oxygen Delivery Method Nasal Cannula Weight: 111.5 kg Body Mass Index (BMI) 36.3 Intake & Output: Intake and Output for Last 24 Hours 01/03/24 01/04/24 01/05/24 23:59 23:59 23:59 Intake Total 102 / 102 582 / 632 1002 / 1002 Output Total 1700 / 1700 0 / 0 Balance -1598 / -1598 582 / 632 1002 / 1002 Lab / Micro Data 01/04/24 06:23 01/04/24 06:23 Micro: Microbiology 01/01/24 23:21 Mucosa - Nose SARS-CoV-2, Influenza & RSV (PCR) - Final Physical Exam Narrative General: Alert, no apparent distress HEENT: Atraumatic, normocephalic Eyes: extraocular movements grossly intact Neck: Supple Respiratory: Some increased work of breathing Cardiovascular: no edema appreciated GI: nondistended Extremities: Moving all extremities Neuro: No overt focal neurological deficits Psych: Cooperative Assessment & Plan Assessment/Plan (1) End stage renal disease on dialysis: (2) Anemia of chronic disease: (3) AMS (altered mental status): QUALIFIERS: Altered mental status type: unspecified Qualified Code(s): R41.82 - Altered mental status, unspecified PLAN: Plan #Encephalopathy, likely metabolic -On day of presentation patient had worsening mental status postdialysis and would not purposefully follow commands, protecting airway and improved on BiPAP and this a.m. was awake and answering questions, similar presentation throughout the day today-, would wake up but not answering questions consistently, protecting airway and placed back on BiPAP -Suspect some encephalopathy is can attributed to uremia however given patient worsens midday after dialysis do not think this fully explains his encephalopathy as you anticipate this will get better after dialysis -ABG was unable to be obtained yesterday due to poor peripheral pulses but patient did improve on BiPAP and overnight -May need to reattempt ABG pending patient progress or decompensation and will reevaluate in a.m., presently protecting airway resting comfortably on BiPAP and wakes up but does not answer appropriately -Did perform CT head on 01/01 due to his mental status and this did not show any acute process -Patient afebrile, white blood cell count within normal limits, and overall has been vitally stable so low suspicion for new or active infection especially given waxing and waning -May be component of delirium even just due to patient being in the hospital and chronically ill -Continue to monitor and evaluate -Discussed goals of care with patient's son, family will be in to see patient today, discussed that we will revisit goals of care tomorrow pending patient status -Presently patient is n.p.o., as mental status improves can retrial p.o. -01/03: Mental status improved this afternoon and patient joking and singing, answers most questions appropriately but sometimes will not answer, did discuss dialysis and patient initially said he did not want to continue this and when asked what would happen if this was not continued he said he would . Discussed goals of care and hospice and patient ultimately became tearful and then was not yet ready to make this decision, advised to discuss with family and let us know but will continue current plan of care unless other decisions are made -01/04: This has significantly improved, interestingly it seemed to worsen after dialysis so yesterday and today patient has been more clear and able to make decisions, patient agreeable to hospice, pending evaluation #ESRD on HD and uremia -Pt w/ hyperkalemia on presentation and received K lowering cocktail and underwent dialysis 01/01 as well as 01/02 -Nephrology following -Renal diet -01/03: Mental status improved this afternoon, for dialysis tomorrow -01/04: Patient no longer wishes to continue dialysis, to go hospice #Hx vte/pe/afib -Not on systemic anticoagulation -Patient unable to take p.o. right now with his mental status, will switch amio to IV -01/03: Bedside swallow, can work on p.o. medication and food if patient passes given mental status improved -01/04: Patient to go hospice Charges/Coding Visit Charges Inpatient E&M: 75196 Subs Hosp L1
--- NOTE | 2024-01-05 18:22 | NURSING ---
Called report to [facility] RN
--- NOTE | 2024-01-05 20:35 | NURSING ---
Report givn to EMS staff. Patient discharged to inpatient Hospice unit. Family following ambulance to facility.
--- NOTE | 2024-01-06 07:05 | DS.PCM_ITS ---
Providers Date of Admission: 01/02/24 Date of Discharge: 01/05/24 Primary Care Physician: Dr. Martin Nunez, DO Consultations 01/02/24 01:23 Consult: Nephrology Routine Consulting Provider: Arely Inman Reason for Consult: Hyperkalemia, ESRD on HD, last HD only partial secondary to access issues. EMERGENT Consult: No MD Notified: Yes Date Notified: 01/02/24 Time Notified: 07:41 Method of Notification: Text 01/02/24 10:38 Consult: Onc/Wound/director of surgery Routine Comment: 01/04/24 18:24 Consult: Hospice / Palliative Care Routine Consulting Provider: [facility] Reason for Consult: esrd on HD, wants to stop dialysis and pursue hospice care EMERGENT Consult: No MD Notified: Yes Date Notified: 01/05/24 Time Notified: 12:00 Method of Notification: Verbal Reason For Visit: HYPERKALEMIA Diagnosis Discharge Diagnosis (1) End stage renal disease on dialysis: Status: Acute Code(s): N18.6 - End stage renal disease; Z99.2 - Dependence on renal dialysis (2) Anemia of chronic disease: Status: Chronic Code(s): D63.8 - Anemia in other chronic diseases classified elsewhere (3) AMS (altered mental status): Status: Acute Code(s): R41.82 - Altered mental status, unspecified Qualifiers: Altered mental status type: unspecified Qualified Code(s): R41.82 - Altered mental status, unspecified Plan #Encephalopathy, metabolic #ESRD on HD and uremia #Hx vte/pe/afib Medications at Discharge Home Medications budesonide 3 mg capsule,delayed,extended release 6 mg PO DAILY stomach 06/16/23 vitamin B complex-vitamin C-folic acid 0.8 mg tablet (Bibiana-Leoncio) 1 tab PO DAILY supplement 06/16/23 clopidogrel 75 mg tablet 75 mg PO DAILY antiplatelet #0 tabs 06/18/23 midodrine 5 mg tablet 10 mg PO MOWEFR blood pressure-dialysis 07/28/23 amiodarone 200 mg tablet 200 mg PO DAILY heart rate 08/31/23 carvedilol 3.125 mg tablet 3.125 mg PO BID HIGH BLOOD PRESSURE 08/31/23 pantoprazole 40 mg tablet,delayed release 40 mg PO BID reflux 08/31/23 sucralfate 1 gram tablet 1 g PO 4X/DAY reflux 08/31/23 acetaminophen 325 mg tablet 650 mg (2 x 325 mg) PO Q6H PRN PRN Pain 1-10 Or Fever>100.7 #0 tabs 09/18/23 albuterol sulfate 2.5 mg/3 mL (0.083 %) solution for nebulization 2.5 mg (3 mL) inhalation Q4H PRN bronchospasm #0 mL 09/18/23 menthol 0.44 %-zinc oxide 20.6 % topical ointment (Calmoseptine) 1 applic topical BID skin #0 grams 09/18/23 atorvastatin 20 mg tablet (Lipitor) 20 mg PO QHS cholesterol 10/22/23 bisacodyl 10 mg rectal suppository 10 mg AL DAILY PRN constipation 10/22/23 magnesium hydroxide 400 mg/5 mL oral suspension (Milk of Magnesia) 30 ml PO DAILY PRN constipation 10/22/23 mineral oil (Fleet Mineral Oil enema) 118 ml AL DAILY PRN constipation 10/22/23 ondansetron 4 mg disintegrating tablet 4 mg PO Q6H PRN nausea 10/22/23 aluminum-magnesium hydroxide 225 mg-200 mg/5 mL oral suspension 30 ml PO Q4H PRN PRN GI distress 12/12/23 calcitriol 0.25 mcg capsule 0.75 mcg PO QODAY 12/12/23 calcium acetate 667 mg tablet 667 mg PO .ac 12/12/23 vitamin B complex-vitamin C-folic acid 0.8 mg tablet (Renal Vitamin) 1 tab PO DAILY 12/12/23 ferrous sulfate 325 mg (65 mg iron) tablet (Feosol) 325 mg PO DAILY 01/02/24 Hospital Course Summary of Care Provided Minutes Spent on Discharge: 32 Hospital Course: Per HPI: The patient is a 78 y/o M w/ PMHx: PAD s/p L great toe resection secondary to osteomyelitis with LLE angioplasty and PCI x 3, Former tobacco use, HFpEF, Chronic thrombocytopenia, HTN, HLD, ESRD on HD following with Dr. Inman with minimal UOP M/W/F, AOCD/Fe deficiency anemia, Hx VTE (DVT/PE), PAF, Hx Lymphoma, Hx Hyperparathyroidism, Hx Bladder CA, Hx GI bleeds who presents to the [facility] ED on 01/02/24 with history of feeling poorly and hurting all over with increased fatigue and per facility occasional altered mental status with reportedly his last dialysis session the Tuesday prior because his fistula infiltrated thus he missed his next dialysis session but had a follow- up intervention with Dr. Miramontes with right chest port placed with plan next dialysis 01/02/2024 but given symptoms prompted ED evaluation to be cautious. Patient does report dyspnea although more chronic and denies any recent cough, congestion, fever, chills. Workup in the ED included T97.2, heart rate 72, BP 140/77, respiratory rate 24, 98% on chronic 3 L nasal cannula, CBC with WBC 7.8, hemoglobin 7.7, MCV 89.4, platelet 218 without marked shift with lymphopenia, coags with PT 16.9, INR 1.4, PTT 51.6, CMP with potassium 6.6 and not noted to be hemolyzed, BUN/creatinine to a 9/10.40, glucose 182, magnesium 2.0, phosphorus 5.3, hepatic profile not marked appearing otherwise, lactic acid 1.6, chest x-ray with stable chronic interstitial fibrotic changes with no acute cardiopulmonary findings otherwise, rapid SARS COVID/influenza/RSV PCR negative, EKG with atrial fibrillation with right bundle branch block with no acute evidence of ischemia. In the ED patient ministered albuterol inhalation, calcium chloride 1 g IV x 1, insulin lispro 10 unit IV x 1, dextrose 10% bolus IV x 1, Zofran 4 mg IV x 1, morphine 2 mg IV x 1 as well as sodium polystyrene 30 g p.o. x 1. Interval hx: Pt paradoxically worsened mental status ceballos w/ HD both days, labs improved but pt would become more obtunded then improve the further out from HD he was. Once pt was coherent discussed with him and family regarding HD and treatment vs hospice and pt opted for hospice and no more HD and confirmed this over multiple discussions. Pt was transferred to in hospice 01/04 Weight / BMI Weight Weight: 111.5 kg Body Mass Index (BMI) 36.3 ABG / Lab / Microbiology Data 01/04/24 06:23 01/04/24 06:23 Microbiology: Microbiology 01/01/24 23:21 Mucosa - Nose SARS-CoV-2, Influenza & RSV (PCR) - Final Meaningful Use Info Meaningful Use Meaningful Use Diagnoses (Choose all that apply): None applicable Ischemic Stroke Statin Dosing Therapy Reference: STATIN DOSE THERAPY REFERENCE: * Patients > 75 years receive moderate or high dose statin therapy. * Patients 75 years or YOUNGER should receive HIGH intensity statin dose unless contraindicated. You will be required to document reason for non-treatment if statin daily dose does not meet guidelines. HIGH DOSE STATIN THERAPY DAILY Atorvastatin > than or = to 40 mg Rosuvastatin > than or = to 20 mg Amlodipine + Atorvastatin > than or = to 2.5/40 mg Ezetimibe + Simvastatin 10/80 mg Simvastatin 80mg Discharge Plan Admission Admit Date/Time: 01/02/24 14:37 Attending Provider: Felicitas Galan Primary Care Provider: Martin Nunez Consulting Providers: Lisa James; Arely Inman; Isaias Dietz; Paty Montesinos; Nessa Hernandez; Bridget Hernandez [facility] Discharge Orders/Prescriptions Prescriptions: No Action budesonide 3 mg capsule,delayed,extend.release 6 mg PO DAILY Bibiana-Leoncio 0.8 mg tablet 1 tab PO DAILY clopidogrel 75 mg Tablet 75 mg PO DAILY Qty: 0 0RF midodrine 5 mg tablet 10 mg PO MOWEFR Patient Comments: takes it if sbp is less than 120 Rx Instructions: GIVE PRIOR TO DIALYSIS carvedilol 3.125 mg tablet 3.125 mg PO BID amiodarone 200 mg tablet 200 mg PO DAILY sucralfate 1 gram Tablet 1 g PO 4X/DAY Rx Instructions: GIVE 1 TABLET BY MOUTH BEFORE MEAL AND AT BEDTIME pantoprazole 40 mg Tablet,Delayed Release (Dr/Ec) 40 mg PO BID aluminum-magnesium hydroxide 225-200 mg/5 mL suspension 30 ml PO Q4H PRN PRN (Reason: GI distress) calcitriol 0.25 mcg capsule 0.75 mcg PO QODAY Rx Instructions: every tuesday, tue, tue before dialysis calcium acetate 667 mg tablet 667 mg PO .ac Rx Instructions: with meals Renal Vitamin 0.8 mg tablet 1 tab PO DAILY ferrous sulfate [Feosol] 325 mg (65 mg iron) tablet 325 mg PO DAILY acetaminophen 325 mg Tablet 650 mg PO Q6H PRN PRN (Reason: Pain 1-10 Or Fever>100.7) Qty: 0 0RF albuterol sulfate 2.5 mg /3 mL (0.083 %) Solution For Nebulization 2.5 mg inhalation Q4H PRN (Reason: bronchospasm) Qty: 0 0RF menthol-zinc oxide [Calmoseptine] 0.44-20.6 % Ointment 1 applic topical BID Qty: 0 0RF Protocol: *Topical Application Instructions APPLICATION INSTRUCTIONS: apply to affected areas bisacodyl 10 mg suppository 10 mg AL DAILY PRN (Reason: constipation) mineral oil [Fleet Mineral Oil] Enema 118 ml AL DAILY PRN (Reason: constipation) Rx Instructions: discard any unused portion atorvastatin [Lipitor] 20 mg tablet 20 mg PO QHS magnesium hydroxide [Milk of Magnesia] 400 mg/5 mL suspension 30 ml PO DAILY PRN (Reason: constipation) ondansetron 4 mg tablet,disintegrating 4 mg PO Q6H PRN (Reason: nausea ) Referrals / Follow Up: Martin Nunez DO [Primary Care Provider] - Disposition Disposition (needs filled in before D/C Order can be placed): Hospice in Medical Facility
== END 2024-01-05 20:24 | disposition hospice, inpatient (51) | DRG 70 ==
LOC: ED 01-02 00:44 → PCU 01-02 00:53
PROVIDERS: Admitting Provider Family Medicine; Emergency Provider Emergency Medicine; PCP Student in an Organized Health Care Education/Training Program; Visit Provider Internal Medicine
DX: G93.41 Metabolic encephalopathy (principal); N18.6 End stage renal disease; I13.2 Hypertensive heart and chronic kidney disease with heart failure and with stage 5 chronic kidney disease, or end stage renal disease; I50.32 Chronic diastolic (congestive) heart failure; I95.3 Hypotension of hemodialysis; D69.6 Thrombocytopenia, unspecified; D63.1 Anemia in chronic kidney disease; I48.0 Paroxysmal atrial fibrillation; E87.5 Hyperkalemia; E78.5 Hyperlipidemia, unspecified; I25.10 Atherosclerotic heart disease of native coronary artery without angina pectoris; Z99.2 Dependence on renal dialysis; Z89.422 Acquired absence of other left toe(s); Z66 Do not resuscitate; Z79.01 Long term (current) use of anticoagulants; Z79.02 Long term (current) use of antithrombotics/antiplatelets; Z79.899 Other long term (current) drug therapy; Z86.711 Personal history of pulmonary embolism; Z86.718 Personal history of other venous thrombosis and embolism; Z85.51 Personal history of malignant neoplasm of bladder; Z85.72 Personal history of non-Hodgkin lymphomas; Z87.19 Personal history of other diseases of the digestive system; Z87.891 Personal history of nicotine dependence
CPT/HCPCS: 36415; 36591; 70450; 71045; 80048; 80053; 80076; 83605; 83735; 84100; 85025; 85610; 85730; 87631; 90937; 93005; 94002; 94003; 94640; 94762; 97802; 99285; J7030; A4216; G0257; J2405